=== PATIENT | female | born 1985 | race Two or more races ===

== ENCOUNTER 2022-09-30 14:31 | Outpatient (OUT) | payer BC, SELFPAY ==
[2022-09-30 15:26] LABS: Estimated Average Glucose 97 mg/dL
[2022-09-30 15:38] LABS: Free T3 2.12 pg/mL (2.18-3.98); Thyroid Stimulating Hormone 1.548 uIU/mL (0.358-3.740)
== END 2022-09-30 14:32 ==
LOC: LAB 14:37
PROVIDERS: PCP Nurse Practitioner Family; Visit Provider Nurse Practitioner Family
DX: E06.3 Autoimmune thyroiditis (principal)
CPT/HCPCS: 36415; 83036; 84436; 84443; 84481

== ENCOUNTER 2023-06-26 21:03 | Outpatient (OUT) | payer BC, SELFPAY | END 2023-06-26 21:04 | disposition home or self-care (01) | LOC: SLEEP 21:03 | PROVIDERS: PCP Nurse Practitioner Family; Visit Provider Nurse Practitioner Family | DX: G47.33 Obstructive sleep apnea (adult) (pediatric) (principal) | CPT/HCPCS: 95810 ==

== ENCOUNTER 2023-07-18 20:59 | Outpatient (OUT) | payer BC, SELFPAY ==
--- OUTSIDE RECORDS SUMMARY | 2023-07-18 21:03 | XMS_ITS | CCD ---
Author Organization [facility] Care Team Providers Care Inspector Final Assembly Conveyor Line Name Role Phone Kimberlyn Xie Primary Care Provider Unavail able KIMBERLYN XIE Primary Care Unavailable LEONARDO, DR HECK Admitting Unavailable LEONARDO, DR HECK Attending Unavailable LEONARDO, DR HECK Consulting Unavailable PACO LONGORIA Consulting Unavailable STRAWROCIO FARLEY Consulting Unavailable KIMBERLYN XIE Primary Care Unavailable EMA KEATING Admitting Unavailable EMA KEATING Attending Unavailable SURJIT FREITAS Consulting Unavailable KOLBY MAYEN Consulting Unavailable SERGIO, DR SHERIFF Admitting Unavailable SERGIO, DR SHERIFF Attending Unavailable KIMBERLYN XIE Primary Care Unavailable Kaylah Han Unavailable Sanaz Lockwood Unavailable Unavailable Unavailable Unavailable Allergies Allergy Classification Reported Allergen(s) Allergy Type Date of Onset Reaction(s) Facility (1 source) egg extract Drug Allergy Vomiting [facility] (1 source) Sulfamethoxazole Drug Allergy Unknown Reaction [facility] (1 source) Trimethoprim Drug Allergy Unknown Reaction [facility] (1 source) Fish Containing Products Propensity to adverse reactions Difficulty Breathing [facility] (1 source) Sulfamethoxazole / Trimethoprim Drug Allergy 02-04-20 13 [facility] (2 sources) Sulfamethox[facility] / [facility] Other Medications Current Medications Medication Drug Class(es) Dates Sig (Normalized) Sig (Original) [id number] 200 actuat albuterol 0.09 mg/actuat metered dose inhaler (2 sources) beta2-Adrenergic Agonist Start: 05-10-2022 take 2 puff(s) by inhalation every four hours as needed Albuterol Sulfate HFA 108 (90 Base) MCG/ACT 2 puffs as needed Inhalation every 4 hrs May, Active Start: 05-10-2022 take 2 puff(s) by in halation every four hours as needed Albuterol Sulfate HFA 108 (90 Base) MCG/ACT 2 puffs as needed Inhalation every 4 hrs May, Not-Taking/PRN Control Pill (1 source) Start: 06-29-2019 Control Pill Active June 29, 2019 9:40pm 24 hr buPROPion hydrochloride 150 mg extended release oral tablet (1 source) Aminoketone Start: 06-29-2019 take 75 mg by mouth once daily Bupropion Hcl Active 75 MG Oral Daily June 29, 2019 9:40pm dextromethorphan hydrobromide 15 mg / guaiFENesin 400 mg / pseudoephedrine hydrochloride 60 mg oral tablet (1 source) alpha-Adrenergic Agonist, Uncompetitive A-efhese-E-asparta te Receptor Antagonist, Sigma-1 Agonist Start: 04-27-2023 take 4 tablets by mouth every twenty-four hours as needed Capmist DM 60-15-400 MG as needed Orally every 4-6 hours as needed, max 4 tablets in 24 hours for 5 days Mar, Active [id number] 0.3 ml EPINEPHrine 1 mg/ml auto-injector (1 source) alpha-Adrenergic Agonist, beta-Adrenergic Agonist, Catecholamine Start: 06-29-2019 Epinephrine Active 0.3 MG Intramuscular Once 2 June 29, 2019 10:18pm inject into anterolateral area of thigh; repeat x1 in 5-15 minutes if necessary famotidine 20 mg oral tablet (1 source) Histamine-2 Receptor Antagonist Start: 06-29-2019 take 20 mg by mouth twice daily Famotidine Active 20 MG Oral Twice daily 6 3 June 29, 2019 10:18pm hydrOXYzine hydrochloride 25 mg oral tablet (3 sources) Antihistamine Start: 06-29-2019 take 25 mg by mouth every six hours Hydroxyzine Hcl Active 25 MG Oral Q6H 15 3 June 29, 2019 10:18pm hydrOXYzine HCl Active lamoTRIgine 100 mg oral tablet (3 sources) Mood Stabilizer, Anti-epileptic Agent Start: 06-29-2019 take 100 mg by mouth once daily Lamotrigine Active 100 MG Oral Daily June 29, 2019 9:40pm LaMICtal Active lurasidone (2 sources) Atypical Antipsychotic Latuda Ac tive predniSONE 20 mg oral tablet (2 sources) Start: 3 take 1 tablet by mouth every twelve hours prednisone 20 MG 1 tablet Orally BID for 5 Mar, Active Start: 06-29-2019 take 60 mg by mouth once daily in the morning Prednisone Active 60 MG Oral Every morning 9 3 June 29, 2019 10:18pm administer with food or milk rimegepant 75 mg disintegrat ing oral tablet (1 source) Nurtec 75 MG 1 t ablet on the tongue and allow to dissolve Orally Active Completed/Discontinued Medications Medication Drug Class(es) Dates Sig (Normalized) Sig (Original) methylPREDNISolone 4 mg oral tablet (2 sources) Corticosteroid Start: 3 methylPREDNISolone 4 MG as directed Orally Once a day for 6 days May, Not-Taking/PRN ondansetron 4 mg oral tablet (2 sources) Serotonin-3 Receptor Antagonist Start: 3 take 1 tablet by mouth every eight hours as needed Zofran ODT 4 MG 1 tablet on the tongue and allow to dissolve Orally every 8 hrs as needed for 4 days May, Not-Taking/PRN oseltamivir 75 mg oral capsule (2 sources) Neuraminidase Inhibitor Start: 3 take 1 capsule by mouth every twelve hours Tamiflu 75 MG 1 capsule Orally Twice a day for 5 day(s) May, Not-Taking/PRN Problems Active Problems Problem Classification Problem Date Documented Da te Episodic/Chronic Abdominal pain (4 sources) Unspecified abdominal pain; 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: [UNSPECIFIED ABDOMINAL PAIN] Onset: 04-27-2022 Episodic Allergic reactions (1 source) Food anaphylaxis; 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: [Anaphylactic shock due to food] Episodic Chronic obstructive pulmonary disease and bronchiectasis (1 source) Bronchitis, not specified as acute or chronic Episodic Genitourinary symptoms and ill-defined conditions (1 source) Personal history of urinary (tract) infections; 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: [PERS HX URINARY TRACT INFECTIONS] Onset: 04-29-2022 Episodic Immunizations and screening for infectious disease (1 source) Contact with and (suspected) exposure to other viral communicable diseases Episodic Influenza (1 source) Influenza due to other identified influenza virus with other respiratory manifestations Episodic Mood disorders (1 source) Major depressive disorder, single episode, unspecified; 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: [BRANT DEPRESS D/O SINGLE EPIS UNS] Onset: 04-29-2022 Chronic Nausea and vomiting (1 source) Nausea; 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: [NAUSEA] Onset: 03-09-2022 Episodic Other aftercare (1 source) Other jail (current) drug therapy; 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: [OTH OPERATIONS LEADER CURRENT DRUG THERAPY] Onset: 04-29-2022 Episodic Other gastrointestinal disorders (1 source) Diarrhea, unspecified; 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: [DIARRHEA UNSPECIFIED] Onset: 03-09-2022 Episodic Other nutritional; endocrine; and metabolic disorders (1 source) Obesity, unspecified; 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: [OBESITY UNSPECIFIED] Onset: 04-29-2022 Chronic Other nutritional; endocrine; and metabolic disorders (1 source) Body mass index (BMI) 39.0-39.9, adult; 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: [BODY MASS INDEX BMI 39.0-39.9 ADULT] Onset: 04-29-2022 Chronic Other nutritional; endocrine; and metabolic disorders (1 source) Body mass index (BMI) 38.0-38.9, adult; 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: [BODY MASS INDEX BMI 38.0-38.9 ADULT] Onset: 03-09-2022 Chronic Other upper respiratory infections (2 sources) Acute upper respiratory infection, unspecified; 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: [Acute pharyngitis, unspecified] Episodic Residual codes; unclassified (1 source) Acquired absence of other specified parts of digestive tract; 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: [ACQ ABSENCE OTH PART DIGESTV TRACT] Onset: 04-29-2022 Episodic Substance-related disorders (1 source) Nicotine dependence, cigarettes, uncomplicated; 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: [NICOTINE DEPEND CIGARETTES UNCOMP] Onset: 04-29-2022 Chronic Unclassified (1 source) PERSONAL HISTORY OF COVID-19; 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: [PERSONAL HISTORY OF COVID-19] Onset: 04-29-2022 Past or Other Problems Problem Classification Problem Date Documented Da te Episodic/Chronic Unclassified (1 source) Suspected COVID-19 virus infection Z20.822 Results Test Name Value Interpretation Reference Range Facility COVID + FLU Quick Testingon 04-27-2023 SARS-CoV-2 (COVID-19) RNA J LUIS+probe Ql (Unsp spec) Negative [facility] Other COVID + FLU Quick Testing Negative [facility] Other Quick Strepon 04-27-2023 S. pyogenes Org specific cx Ql (Throat) Negative [facility] Other Quick Strep [facility] Other COVID/FLU/RSV RT-PCRon 05-10 SARS-CoV-2 (COVID-19) RNA J LUIS+probe Ql (Unsp spec) Negative [facility] Other COVID/FLU/RSV RT-PCR Positive [facility] Other COVID/FLU/RSV RT-PCR Negative [facility] Other CBC AUTO DIFFon 04-27-2022 BASO # 0.0 103/ul Normal 0.0-0.1 [facility] Comment on above: Performed By: #### C BC #### [facility] [address] [place] [address] Dr. Dee Humphrey Basophils/100 WBC (Bld) 0.2 % Normal 0.2-2.0 [facility] Comment on above: Performed By: #### C BC #### [facility] [address] [place] [address] Dr. Dee Humphrey EO # 0.1 103/ul Normal 0.0-0.7 [facility] Comment on above: Performed By: #### C BC #### [facility] [address] [place] [address] Dr. Dee Humphrey Eosinophils/100 WBC (Bld) 0.6 % Critically low 0.9-7.0 [facility] Comment on above: Performed By: #### C BC #### [facility] [address] [place] [address] Dr. Dee Humphrey Erythrocyte distribution width (RBC) [Ratio] 14.1 % Normal 11.0-15.0 [facility] Comment on above: Performed By: #### C BC #### [facility] [address] [place] [address] Dr. Dee Humphrey Hematocrit (Bld) [Volume fraction] 37.1 % Normal 36.0-48.0 [facility] Comment on above: Performed By: #### C BC #### [facility] [address] [place] [address] Dr. Dee Humphrey Hemoglobin (Bld) [Mass/Vol] 12.4 g/dL Normal 12.0-16.0 [facility] Comment on above: Performed By: #### C BC #### [facility] [address] [place] [address] Dr. Dee Humphrey IG # 0.06 10e3/ul Critically high 0.00-0.03 [facility] Comment on above: Performed By: #### C BC #### [facility] [address] [place] [address] Dr. Dee Humphrey IG % 0.5 % Normal 0.0-0.5 [facility] Comment on above: Performed By: #### C BC #### [facility] [address] [place] [address] Dr. Dee Humphrey LYMPH # 3.7 103/ul Normal 1.2-3.8 [facility] Comment on above: Performed By: #### C BC #### [facility] [address] [place] [address] Dr. Dee Humphrey Lymphocytes/100 WBC (Bld) 28.7 % Normal 20.5-60.0 [facility] Comment on above: Performed By: #### C BC #### [facility] [address] [place] [address] Dr. Dee Humphrey MANUAL DIFF REQ NO Normal [facility] Comment on above: Performed By: #### C BC #### [facility] [address] [place] [address] Dr. Dee Humphrey MCH (RBC) [Entitic mass] 30.2 pg Normal 26.7-34.0 [facility] Comment on above: Performed By: #### C BC #### [facility] [address] [place] [address] Dr. Dee Humphrey MCHC (RBC) [Mass/Vol] 33.4 g/dL Normal 29.9-35.2 [facility] Comment on above: Performed By: #### C BC #### [facility] [address] [place] [address] Dr. Dee Humphrey MCV (RBC) [Entitic vol] 90.5 fL Normal 81.0-99.0 [facility] Comment on above: Performed By: #### C BC #### [facility] [address] [place] [address] Dr. Dee Humphrey MONO # 0.7 103/ul Normal 0.3-0.8 [facility] Comment on above: Performed By: #### C BC #### [facility] [address] [place] [address] Dr. Dee Humphrey Monocytes/100 WBC (Bld) 5.0 % Normal 1.7-12.0 [facility] Comment on above: Performed By: #### C BC #### [facility] [address] [place] [address] Dr. Dee Humphrey NEUT # 8.5 103/ul Critically high 1.4-6.5 [facility] Comment on above: Performed By: #### C BC #### [facility] [address] [place] [address] Dr. Dee Humphrey Neutrophils/100 WBC (Bld) 65.0 % Normal 43.0-75.0 [facility] Comment on above: Performed By: #### C BC #### [facility] [address] [place] [address] Dr. Dee Humphrey Platelet mean volume (Bld) [Entitic vol] 9.6 fL Normal 9.5-13.5 [facility] Comment on above: Performed By: #### C BC #### [facility] [address] [place] [address] Dr. Dee Humphrey PLT 317 103/ul Normal 150-450 [facility] Comment on above: Performed By: #### C BC #### [facility] [address] [place], [place] [id number] Dr. Dee Humphrey RBC 4.10 106/ul Critically low 4.20-5.40 [facility] Comment on above: Performed By: #### C BC #### [facility] [address] [place] [address] Dr. Dee Humphrey WBC 13.1 103/ul Critically high 4.0-11.0 [facility] Comment on above: Performed By: #### C BC #### [facility] [address] [address] [address] ABD/PELVIS WO CONon 04-27 CT ABD/PELVIS WO CON EXAMINATION:CT ABD/PELVIS WO CON INDICATION:CALCULUS OF KIDNEY COMPARISON:03/07/2022 TECHNIQUE:Multiple thin section transaxial slices were acquired through the abdomen and pelvis without intravenous contrast. Coronal and sagittal reconstructed images were reviewed. Oral contrastWas not administered. FINDINGS: LOWER CHEST: The lower chest is unremarkable. LIVER: The liver is unremarkable. GALLBLADDER AND BILIARY SYSTEM: No obvious ductal dilation. The gallbladder surgically absent. SPLEEN: The spleen is unremarkable. PANCREAS: The pancreas is unremarkable. ADRENAL GLANDS: The adrenal glands are unremarkable. KIDNEYS AND URETERS: There is no hydronephrosis of the kidneys.No obstructing urologic calcifications are present. Ureters are within normal limits. VASCULATURE: Vascularity is unremarkable. PERITONEUM/RETROPERITON EUM: Peritoneum/retroperiton eum is unremarkable. LYMPH NODES: No suspicious lymphadenopathy. GASTROINTESTINAL TRACT: The bowel is normal in caliber.No acute inflammatory changes are associated with the bowel.The appendix is visualized and is not inflamed. BLADDER: The urinary bladder is unremarkable. REPRODUCTIVE SYSTEM: Reproductive system is unremarkable. BODY WALL: There is a tiny fat-containing umbilical hernia. BONES: Osseous structures are unremarkable. IMPRESSION: 1. No acute process in the abdomen or pelvis. No obstructive uropathy is identified. Electronically authenticated by: ROCIO CHAU Date: 2022-04-27 20:24 Normal [facility] ER URINE PROFILEon 2 Bilirubin Ql (U) Negative Normal NEGATIVE [facility] Comment on above: Performed By: #### P REGU, ERUR #### [facility] [address] [address] [address] Dee Humphrey Clarity (U) CLEAR Normal CLEAR [facility] Comment on above: Performed By: #### P REGU, ERUR #### [facility] [address] [place], [place] [address] Dr. Dee Humphrey Color (U) YELLOW Normal YELLOW [facility] Comment on above: Performed By: #### P REGU, ERUR #### [facility] [address] [address] [address] Dee STANFORD A micrscopic examination will be performed if indicated. Normal [facility] Comment on above: Performed By: #### P REGU, ERUR #### [facility] [address] [address] [address] Dee Humphrey Glucose Ql (U) Negative Normal NEGATIVE [facility] Comment on above: Performed By: #### P REGU, ERUR #### [facility] [address] [address] [address] Dee Humphrey Hemoglobin Ql (U) Negative Normal NEGATIVE [facility] Comment on above: Performed By: #### P REGU, ERUR #### [facility] [address] [place] [address] Dr. Dee Humphrey Ketones Ql (U) Negative Normal NEGATIVE [facility] Comment on above: Performed By: #### P REGU, ERUR #### [facility] [address] [address] [address] Dee Humphrey LEUKOCYTES Negative Normal NEGATIVE [facility] Comment on above: Performed By: #### P REGU, ERUR #### [facility] [address] [address] [address] Dee Humphrey Nitrite Ql (U) Negative Normal NEGATIVE [facility] Comment on above: Performed By: #### P REGU, ERUR #### [facility] [address] [address] [address] Dee Humphrey pH (U) 5.5 [pH] Normal 5-9 [facility] Comment on above: Performed By: #### P REGU, ERUR #### [facility] [address] [address] [address] Dee Humphrey SPEC GRAVITY >=1.030 Abnormal 1.005-<=1.025 [facility] Comment on above: Performed By: #### P REGU, ERUR #### [facility] [address] [address] [address] Dee Humphrey UA PROTEIN Negative Normal NEGATIVE/ TRACE [facility] Comment on above: Performed By: #### P REGU, ERUR #### [facility] [address] [place] [address] Dr. Dee Humphrey UR MICRO IND NOT INDICATED Normal [facility] Comment on above: Performed By: #### P REGU, ERUR #### [facility] [address] [place] [address] Dr. Dee Humphrey Urobilinogen Qn (U) 0.2 {Blanca'U}/dL Normal 0.2 - 1.0 [facility] Comment on above: Performed By: #### P REGU, ERUR #### [facility] [address] [place] [address] Dr. Dee Humphrey LIPASEon 04-27-2022 Lipase [Catalytic activity/Vol] 94.0 U/L Normal 73.0-393.0 [facility] Comment on above: Performed By: #### L IPA, CMP #### [facility] [address] [place] [address] Dr. Dee Humphrey URon 04-27-2022 , QUAL Negative Normal NEGATIVE [facility] Comment on above: Performed By: #### P REGU, ERUR #### [facility] [address] [place] [address] Dr. Dee Humphrey PROF 14(COMP METB)on 022 Albumin [Mass/Vol] 3.9 g/dL Normal 3.4-5.0 [facility] Comment on above: Performed By: #### L IPA, CMP #### [facility] [address] [place] [address] Dr. Dee Humphrey Albumin/Globulin [Mass ratio] 1.0 {ratio} Normal [facility] Comment on above: Performed By: #### L IPA, CMP #### [facility] [address] [place] [address] Dr. Dee Humphrey ALP [Catalytic activity/Vol] 87 U/L Normal 46-116 [facility] Comment on above: Performed By: #### L IPA, CMP #### [facility] [address] [place] [address] Dr. Dee Humphrey ALT [Catalytic activity/Vol] 31 U/L Normal 14-59 [facility] Comment on above: Performed By: #### L IPA, CMP #### [facility] [address] [address] [address] Dee Humphrey Anion gap [Moles/Vol] 10.8 mmol/L Normal [facility] Comment on above: Performed By: #### L IPA, CMP #### [facility] [address] [address] [address] Dee Humphrey AST [Catalytic activity/Vol] 17 U/L Normal 15-37 [facility] Comment on above: Performed By: #### L IPA, CMP #### [facility] [address] [place] [address] Dr. Dee Humphrey Bilirubin [Mass/Vol] 0.1 mg/dL Critically low 0.2-1.0 [facility] Comment on above: Performed By: #### L IPA, CMP #### [facility] [address] [place] [address] Dr. Dee Humphrey Calcium [Mass/Vol] 8.9 mg/dL Normal 8.5-10.1 [facility] Comment on above: Performed By: #### L IPA, CMP #### [facility] [address] [place] [address] Dr. Dee Humphrey Chloride [Moles/Vol] 103 mmol/L Normal 98-107 [facility] Comment on above: Performed By: #### L IPA, CMP #### [facility] [address] [address] [address] Dee Humphrey CO2 [Moles/Vol] 26.9 mmol/L Normal 21.0-32.0 [facility] Comment on above: Performed By: #### L IPA, CMP #### [facility] [address] [place] [address] Dr. Dee Humphrey Creatinine [Mass/Vol] 0.80 mg/dL Normal 0.55-1.02 [facility] Comment on above: Performed By: #### L IPA, CMP #### [facility] [address] [place] [address] Dr. Dee Humphrey EGFR-AF AZERBAIJANI >60 Normal >=60 [facility] Comment on above: Performed By: #### L IPA, CMP #### [facility] [address] [place] [address] Dr. Dee Humphrey EGFR-NON AF AZERBAIJANI >60 Normal >=60 [facility] Comment on above: Performed By: #### L IPA, CMP #### [facility] [address] [address] [address] Dee Humphrey Globulin (S) [Mass/Vol] 3.9 g/dL Normal [facility] Comment on above: Performed By: #### L IPA, CMP #### [facility] [address] [place] [address] Dr. Dee Humphrey Glucose [Mass/Vol] 96 mg/dL Normal 74-106 [facility] Comment on above: Performed By: #### L IPA, CMP #### [facility] [address] [place] [address] Dr. Dee Humphrey Potassium [Moles/Vol] 3.7 mmol/L Normal 3.5-5.1 [facility] Comment on above: Performed By: #### L IPA, CMP #### [facility] [address] [place] [address] Dr. Dee Humphrey Protein [Mass/Vol] 7.8 g/dL Normal 6.4-8.2 [facility] Comment on above: Performed By: #### L IPA, CMP #### [facility] [address] [place] [address] Dr. Dee Humphrey Sodium [Moles/Vol] 137 mmol/L Normal 136-145 [facility] Comment on above: Performed By: #### L IPA, CMP #### [facility] [address] [place] [address] Dr. Dee Humphrey Urea nitrogen [Mass/Vol] 13.0 mg/dL Normal 7.0-18.0 [facility] Comment on above: Performed By: #### L IPA, CMP #### [facility] [address] [place] [address] Dr. Dee Humphrey Urea nitrogen/Creatini ne [Mass ratio] 16.2 mg/mg Normal [facility] Comment on above: Performed By: #### L IPA, CMP #### [facility] [address] [place] [address] Dr. Dee Humphrey CBC AUTO DIFFon 03-07-2022 BASO # 0.0 103/ul Normal 0.0-0.1 [facility] Comment on above: Performed By: #### C BC #### [facility] [address] [place] [address] Dr. Dee Humphrey Basophils/100 WBC (Bld) 0.3 % Normal 0.2-2.0 [facility] Comment on above: Performed By: #### C BC #### [facility] [address] [place] [address] Dr. Dee Humphrey EO # 0.1 103/ul Normal 0.0-0.7 [facility] Comment on above: Performed By: #### C BC #### [facility] [address] [place] [address] Dr. Dee Humphrey Eosinophils/100 WBC (Bld) 0.7 % Critically low 0.9-7.0 [facility] Comment on above: Performed By: #### C BC #### [facility] [address] [place] [address] Dr. Dee Humphrey Erythrocyte distribution width (RBC) [Ratio] 13.0 % Normal 11.0-15.0 [facility] [facility] Comment on above: Performed By: #### C BC #### [facility] [address] [place] [address] Dr. Dee Humphrey Hematocrit (Bld) [Volume fraction] 39.2 % Normal 36.0-48.0 [facility] Comment on above: Performed By: #### C BC #### [facility] [address] [place] [address] Dr. Dee Humphrey Hemoglobin (Bld) [Mass/Vol] 13.2 g/dL Normal 12.0-16.0 [facility] Comment on above: Performed By: #### C BC #### [facility] [address] [place] [address] Dr. Dee Humphrey IG # 0.05 10e3/ul Critically high 0.00-0.03 [facility] Comment on above: Performed By: #### C BC #### [facility] [address] [place] [address] Dr. Dee Humphrey IG % 0.5 % Normal 0.0-0.5 [facility] Comment on above: Performed By: #### C BC #### [facility] [address] [place] [address] Dr. Dee Humphrey LYMPH # 4.2 103/ul Critically high 1.2-3.8 [facility] Comment on above: Performed By: #### C BC #### [facility] [address] [place] [address] Dr. Dee Humphrey Lymphocytes/100 WBC (Bld) 43.1 % Normal 20.5-60.0 [facility] Comment on above: Performed By: #### C BC #### [facility] [address] [place] [address] Dr. Dee Humphrey MANUAL DIFF REQ NO Normal [facility] Comment on above: Performed By: #### C BC #### [facility] [address] [place] [address] Dr. Dee Humphrey MCH (RBC) [Entitic mass] 30.5 pg Normal 26.7-34.0 [facility] Comment on above: Performed By: #### C BC #### [facility] [address] [place] [address] Dr. Dee Humphrey MCHC (RBC) [Mass/Vol] 33.7 g/dL Normal 29.9-35.2 [facility] Comment on above: Performed By: #### C BC #### [facility] [address] [place] [address] Dr. Dee Humphrey MCV (RBC) [Entitic vol] 90.5 fL Normal 81.0-99.0 [facility] Comment on above: Performed By: #### C BC #### [facility] [address] [place] [address] Dr. Dee Humphrey MONO # 0.4 103/ul Normal 0.3-0.8 [facility] Comment on above: Performed By: #### C BC #### [facility] [address] [place] [address] Dr. Dee Humphrey Monocytes/100 WBC (Bld) 4.4 % Normal 1.7-12.0 [facility] Comment on above: Performed By: #### C BC #### [facility] [address] [place] [address] Dr. Dee Humphrey NEUT # 4.9 103/ul Normal 1.4-6.5 [facility] Comment on above: Performed By: #### C BC #### [facility] [address] [place] [address] Dr. Dee Humphrey Neutrophils/100 WBC (Bld) 51.0 % Normal 43.0-75.0 [facility] Comment on above: Performed By: #### C BC #### [facility] [address] [place] [address] Dr. Dee Humphrey Platelet mean volume (Bld) [Entitic vol] 9.6 fL Normal 9.5-13.5 [facility] Comment on above: Performed By: #### C BC #### [facility] [address] [place] [address] Dr. Dee Humphrey PLT 364 103/ul Normal 150-450 [facility] Comment on above: Performed By: #### C BC #### [facility] [address] [place] [address] Dr. Dee Humphrey RBC 4.33 106/ul Normal 4.20-5.40 [facility] Comment on above: Performed By: #### C BC #### [facility] [address] [place] [address] Dr. Dee Humphrey WBC 9.7 103/ul Normal 4.0-11.0 [facility] Comment on above: Performed By: #### C BC #### [facility] [address] [place] [address] Dr. Dee Humphrey LACTATE/LACTIC ACIDon 2021 Lactate [Moles/Vol] 1.1 mmol/L Normal 0.4-1.9 [facility] Comment on above: Performed By: #### P REGU, ERUR #### [facility] [address] [place] [address] Dr. Dee Humphrey LIPASEon 03-07-2022 Lipase [Catalytic activity/Vol] 79.0 U/L Normal 73.0-393.0 [facility] Comment on above: Performed By: #### C MP, LIPA #### [facility] [address] [place] [address] Dr. Dee Humphrey PROF 14(COMP METB)on 022 Albumin [Mass/Vol] 3.8 g/dL Normal 3.4-5.0 [facility] Comment on above: Performed By: #### C MP, LIPA #### [facility] [address] [place] [address] Dr. Dee Humphrey Albumin/Globulin [Mass ratio] 0.9 {ratio} Normal [facility] Comment on above: Performed By: #### C MP, LIPA #### [facility] [address] [place] [address] Dr. Dee Humphrey ALP [Catalytic activity/Vol] 80 U/L Normal 46-116 [facility] Comment on above: Performed By: #### C MP, LIPA #### [facility] [address] [place] [address] Dr. Dee Humphrey ALT [Catalytic activity/Vol] 27 U/L Normal 14-59 [facility] Comment on above: Performed By: #### C MP, LIPA #### [facility] [address] [place] [address] Dr. Dee Humphrey Anion gap [Moles/Vol] 9.5 mmol/L Normal [facility] Comment on above: Performed By: #### C MP, LIPA #### [facility] [address] [place] [address] Dr. Dee Humphrey AST [Catalytic activity/Vol] 13 U/L Critically low 15-37 [facility] Comment on above: Performed By: #### C MP, LIPA #### [facility] [address] [address] [address] Dee Humphrey Bilirubin [Mass/Vol] 0.1 mg/dL Critically low 0.2-1.0 [facility] Comment on above: Performed By: #### C MP, LIPA #### [facility] [address] [place] [address] Dr. Dee Humphrey Calcium [Mass/Vol] 9.0 mg/dL Normal 8.5-10.1 [facility] Comment on above: Performed By: #### C MP, LIPA #### [facility] [address] [place] [address] Dr. Dee Humphrey Chloride [Moles/Vol] 103 mmol/L Normal 98-107 [facility] Comment on above: Performed By: #### C MP, LIPA #### [facility] [address] [place] [address] Dr. Dee Humphrey CO2 [Moles/Vol] 27.1 mmol/L Normal 21.0-32.0 [facility] Comment on above: Performed By: #### C MP, LIPA #### [facility] [address] [place] [address] Dr. Dee Humphrey Creatinine [Mass/Vol] 0.86 mg/dL Normal 0.55-1.02 [facility] Comment on above: Performed By: #### C MP, LIPA #### [facility] [address] [place] [address] Dr. Dee Humphrey EGFR-AF AZERBAIJANI >60 Normal >=60 [facility] Comment on above: Performed By: #### C MP, LIPA #### [facility] [address] [place] [address] Dr. Dee Humphrey EGFR-NON AF AZERBAIJANI >60 Normal >=60 [facility] Comment on above: Performed By: #### C MP, LIPA #### [facility] [address] [place] [address] Dr. Dee Humphrey Globulin (S) [Mass/Vol] 4.1 g/dL Normal [facility] Comment on above: Performed By: #### C MP, LIPA #### [facility] [address] [place] [address] Dr. Dee Humphrey Glucose [Mass/Vol] 99 mg/dL Normal 74-106 [facility] Comment on above: Performed By: #### C MP, LIPA #### [facility] [address] [place] [address] Dr. Dee Humphrey Potassium [Moles/Vol] 3.6 mmol/L Normal 3.5-5.1 [facility] Comment on above: Performed By: #### C MP, LIPA #### [facility] [address] [place] [address] Dr. Dee Humphrey Protein [Mass/Vol] 7.9 g/dL Normal 6.4-8.2 [facility] Comment on above: Performed By: #### C MP, LIPA #### [facility] [address] [place] [address] Dr. Dee Humphrey Sodium [Moles/Vol] 136 mmol/L Normal 136-145 [facility] Comment on above: Performed By: #### C MP, LIPA #### [facility] [address] [place] [address] Dr. Dee Humphrey Urea nitrogen [Mass/Vol] 12.0 mg/dL Normal 7.0-18.0 [facility] Comment on above: Performed By: #### C MP, LIPA #### [facility] [address] [place] [address] Dr. Dee Humphrey Urea nitrogen/Creatini ne [Mass ratio] 14.0 mg/mg Normal [facility] Comment on above: Performed By: #### C MP, LIPA #### [facility] [address] [place] [address] Dr. Dee Humphrey Consent for COVID Vaccineon 08-09-2020 SARS-CoV-2 (COVID-19) RNA J LUIS+probe Ql (Unsp spec) [id number] D:127 Normal [facility] Consent for Treatmenton 07-30 Consent for Treatment [id number] D:127 Normal [facility] Coding Summary.on 08-07-2020 Coding Summary. CODING DATE: [facility] STATUS: PAYOR: Luzma APC DESCRIPTION [employer] - Level 1B ($11-$20) ADMIT DX: REASON FOR VISIT DX: Z23 Encounter for immunization FINAL DX: PRINCIPAL: Z23 Encounter for immunization SECONDARY: PYMT PROC APC STAT DESCRIPTION DOCTOR NAME DATE NOTE: The code number assigned matches the documented diagnosis and / or procedure in the patient's chart. However, the narrative phrase printed from the coding software may appear abbreviated, or result in slightly different terminology. Coded By: Yana Paredes Date Saved: 08/07/2020 02:46 pm [facility] Ambulatory Clinical Summaryo n 03-25-2020 Ambulatory Clinical Summary {[id number] [facility] Patient Educationon 03-19-20 20 Patient Education lurasidone (loo JOAO i done) Latuda What is the most important information I should know about lurasidone? Lurasidone is not approved for use in older adults with dementia-related psychosis. Some people have thoughts about suicide while taking lurasidone. Stay alert to changes in your mood or symptoms. Report any new or worsening symptoms to your doctor. Tell your doctor about all your current medicines and any you start or stop using. Many drugs can interact, and some drugs should not be used together. What is lurasidone? Lurasidone is an antipsychotic medicine that is used to treat schizophrenia in adults and teenagers who are at least 13 years old. Lurasidone is also used to treat episodes of depression related to bipolar disorder (manic depression) in adults and children who are at least 10 years old. Lurasidone may also be used for purposes not listed in this medication guide. What should I discuss with my healthcare provider before taking lurasidone? You should not use lurasidone if you are allergic to it. Many drugs can interact and cause dangerous effects. Some drugs should not be used together with lurasidone. Your doctor may change your treatment plan if you also use: ?? antifungal medicine such as ketoconazole or voriconazole; ? an antibiotic such as clarithromycin or rifampin; ? an antiviral such as ritonavir; ? Wikieup's wort; or ? seizure medicine such as carbamazepine or phenytoin. Lurasidone may increase the risk of in older adults with dementia-related psychosis and is not approved for this use. Tell your doctor if you have ever had: ?? heart disease or a stroke; ? high or low blood pressure; ? high cholesterol or triglycerides (a type of fat in the blood); ? diabetes or high blood sugar (in you or your family); ? a seizure; ? liver or kidney disease; ? low white blood cell (WBC) counts; ? abnormal hormone function tests (thyroid, pituitary gland); ? breast cancer; or ? suicidal thoughts or actions. Some people have thoughts about suicide while taking lurasidone. Your doctor will need to check your progress at regular visits. Your family or other caregivers should also be alert to changes in your mood or symptoms. Taking antipsychotic medicine in the last 3 months of may cause breathing problems, feeding problems, or withdrawal symptoms in the . If you get , tell your doctor right away. Do not stop taking lurasidone without your doctor's advice. If you are , your name may be listed on a registry to track the effects of lurasidone on the baby. It may not be safe to breastfeed a baby while you are using this medicine. Ask your doctor about any risks. Lurasidone is not approved for schizophrenia in anyone younger than 13 years old. Lurasidone is not approved for depression in anyone younger than 10 years old. How should I take lurasidone? Follow all directions on your prescription label and read all medication guides or instruction sheets. Use the medicine exactly as directed. Lurasidone should be taken with food (at least 350 calories). You may need frequent blood tests. It may take several weeks before your symptoms improve. Keep using the medication as directed. Call your doctor if your symptoms do not improve, or if they get worse while using lurasidone. You should not stop using lurasidone suddenly. Stopping suddenly may cause other problems. It is easier to become dangerously overheated and dehydrated while you are taking lurasidone. Drink plenty of fluids, especially in hot weather and during exercise. You may also be more sensitive to temperature extremes (hot or cold). Store at room temperature away from moisture and heat. What happens if I miss a dose? Take the medicine as soon as you can, but skip the missed dose if it is almost time for your next dose. Do not take two doses at one time. Get your prescription refilled before you run out of medicine completely. What happens if I overdose? Seek emergency medical attention or call the Poison Help line at . What should I avoid while taking lurasidone? Avoid drinking alcohol. Dangerous side effects could occur. Avoid driving or operating machinery until you know how this medicine will affect you. Avoid getting up too fast from a sitting or lying position, or you may feel dizzy. Dizziness or drowsiness can cause falls, accidents, or severe injuries. Grapefruit and grapefruit juice may interact with lurasidone and lead to unwanted side effects. Avoid the use of grapefruit products while taking lurasidone. What are the possible side effects of lurasidone? Get emergency medical help if you have signs of an allergic reaction: hives; difficulty breathing; swelling of your face, lips, tongue, or throat. Report any new or worsening symptoms to your doctor, such as: mood or behavior changes, anxiety, panic attacks, trouble sleeping, or if you feel impulsive, irritable, agitate (more content not included)... Normal [facility] Video Visit - Telehealtho n 02-23-2020 Video Visit - Telehealth Start Time 3:00pm Stop Time 4:00pm Chief Complaint Bipolar 1 disorder BOB (generalized anxiety disorder Mood: Good Affect: Full, Congruent Thought Content: No hallucinations of any modality Cognitive Functioning: Alert and Oriented x4, Memory Intact Suicidality and Homicidality: Denied any suicidal or homicidal ideation, plan, intent Diagnosis/Assessment/Tr eatment Plan 1. Bipolar 1 disorder (F31.32: Bipolar disorder, current episode depressed, moderate) 2. BOB (generalized anxiety disorder) (F41.1: Generalized anxiety disorder) Goals: 1. Alleviate depressive symptoms and return to previous level of effective functioning. 2. Normalize energy level and return to usual activities, good judgement, stable mood, realistic expectations, and goal directed behavior. 3. Achieve controlled behavior, moderate mood, deliberative speech and thought processes, and a stable daily activity pattern. Patient will: 1. Describe situations, thoughts, feelings, and actions associated with her symptoms of depression, and the impact on her functioning. 2. Identify, challenge, and replace thoughts and beliefs that support depression. 3. Learn and implement at least two behavioral strategies to overcome depression. Therapist will: 1. Provide empathetic listening and feedback to create a safe environment for patient and to build rapport and trust towards a positive outcome. 2. Assess the patient?s history of suicidality and current suicide risk. 3. Conduct CBT to help the patient understand the connection between thoughts, depressive feelings, and actions/behaviors. 4. Help patient identify what thoughts or situations trigger her depressed mood. 5. Engage patient in using behavior techniques and developing skills that help alleviate depression, and encourage her to practice and use in her daily life. [ [1] Psychotherapy Summary Met with patient 1:1 via telehealth for today's session. Patient was in a private room at home. Inquired about significant events since last session. Facilitated discussion about the frequency and intensity of symptoms experienced. Processed with patient her new job. Acknowledged patient?s thoughts and feelings and how they have had an impact on her mood. Used CBT to help patient understand the connection between her thoughts, feelings and actions/behaviors. Helped patient identify and practice coping skills that help patient alleviate mood instability and encourage to practice and use in her daily life. Will continue with this therapeutic focus at next session. Therapist Intervention CBT Grief counseling Patient Response Patient was in good spirits during today's session. She believes it will be difficult to go through her last day at [employer], but is looking forward for a new challenge. Appears she is adapting better to Summer leaving their home. Changes In Medical Condition None reported Changes In Functional Impairment None reported Changes In Symptoms Explained None reported Other Information This visit was conducted via two-way, real-time interactive video communications from my office using [employer] due to the restrictions of the COVID-19 pandemic. No physical exam was conducted other than those areas of the body visible to telecommunications with the patient located at [address] [place], [place] [id number], with no one else in attendance. If it is determined that the patient should be evaluated in the clinic, the patient will be directed to the appropriate clinic or venue. The patient or their guardian verbally consented to this visit. Video time was 60 minutes with the patient face to face greater than 50% in addition to counseling and coordination of care. Follow-up in 2 weeks Problem List/Past Medical History Ongoing Bipolar 1 disorder Fatigue BOB (generalized anxiety disorder) Hidradenitis suppurativa Major depression, recurrent Miscarriage Historical Tobacco use during Urinary tract infection in Procedure/Surgical History section (08/10/2009), section (02/26/2007), Appendectomy, Cholecystectomy. Medications Abilify 5 mg Tab, See Instructions, 5 refills alprazolam 0.5 mg Tab, 0.5 mg= 1 tab(s), Oral, TID, PRN, 1 refills cyclobenzaprine 10 mg Tab, 10 mg= 1 tab(s), Oral, TID, PRN, 1 refills hydrOXYzine hydrochloride 50 mg oral tablet, See Instructions, PRN, 5 refills lamotrigine 150 mg Tab, 150 mg= 1 tab(s), Oral, Daily, 5 refills Tri-Sprintec 35 mcg Tab, 1 tab(s), Oral, Daily, 4 refills Allergies Bactrim Social History Alcohol - Denies Alcohol Use, 10/05/2011 Employment/School Employed, 03/18/2019 Home/Environment Lives with Children, Spouse. Living situation: Home/Independent., 09/12/2018 Substance Abuse - Denies Substance Abuse, 10/05/2011 Tobacco Former smoker, quit more than 30 days ago Tobacco Use:. Never Smokeless Tobacco Use:. Cigarettes, 1.0 per day. 7 year(s). Total pack years: 7. Stopped age (more content not included)... Normal [facility] Comment on above: Result Comment: Elec tronically Signed By: Deepa [facility], Maia Montero.mati\Date and Time Signed: 02/22/20 23:17 EDT Video Visit - Telehealtho n 02-11-2020 Video Visit - Telehealth Start Time 3:00pm Stop Time 4:00pm Chief Complaint Bipolar 1 disorder Mental Status Exam Mood: Better Affect: Full, Congruent Thought Content: No hallucinations of any modality Cognitive Functioning: Alert and Oriented x4, Memory Intact Suicidality and Homicidality: Denied any suicidal or homicidal ideation, plan, intent Diagnosis/Assessment/Tr eatment Plan 1. Bipolar 1 disorder (F31.32: Bipolar disorder, current episode depressed, moderate) Goals: 1. Alleviate depressive symptoms and return to previous level of effective functioning. 2. Normalize energy level and return to usual activities, good judgement, stable mood, realistic expectations, and goal directed behavior. 3. Achieve controlled behavior, moderate mood, deliberative speech and thought processes, and a stable daily activity pattern. Patient will: 1. Describe situations, thoughts, feelings, and actions associated with her symptoms of depression, and the impact on her functioning. 2. Identify, challenge, and replace thoughts and beliefs that support depression. 3. Learn and implement at least two behavioral strategies to overcome depression. Therapist will: 1. Provide empathetic listening and feedback to create a safe environment for patient and to build rapport and trust towards a positive outcome. 2. Assess the patient?s history of suicidality and current suicide risk. 3. Conduct CBT to help the patient understand the connection between thoughts, depressive feelings, and actions/behaviors. 4. Help patient identify what thoughts or situations trigger her depressed mood. 5. Engage patient in using behavior techniques and developing skills that help alleviate depression, and encourage her to practice and use in her daily life. [1] Psychotherapy Summary Met with patient 1:1 via telehealth for today's session. Patient was in a private room at home. Inquired about significant events since last session. Facilitated discussion about the frequency and intensity of grief and sadness experienced. Processed with patient the reasons she decided to take the new job, and her thought process in taking it. Acknowledged patient?s thoughts and feelings and how they have had an impact on her mood. Helped patient identify and practice coping skills that help patient alleviate anxiety and encourage to practice and use in her daily life. Will continue with this therapeutic focus at next session. Therapist Intervention Anxiety-reducing techniques Positive thinking Decision-making Patient Response Patient was more upbeat during today's session than she has been. She appears to having a more positive outlook on her life and is progressing towards treatment goals. Changes In Medical Condition None reported Changes In Functional Impairment None reported Changes In Symptoms Explained None reported Other Information This visit was conducted via two-way, real-time interactive video communications from my office using [employer] due to the restrictions of the COVID-19 pandemic. No physical exam was conducted other than those areas of the body visible to telecommunications with the patient located at [address] [place], [place] [id number], with no one else in attendance. If it is determined that the patient should be evaluated in the clinic, the patient will be directed to the appropriate clinic or venue. The patient or their guardian verbally consented to this visit. Video time was 60 minutes with the patient face to face greater than 50% in addition to counseling and coordination of care. Follow-up in 1 week Problem List/Past Medical History Ongoing Bipolar 1 disorder Fatigue BOB (generalized anxiety disorder) Hidradenitis suppurativa Major depression, recurrent Miscarriage Historical Tobacco use during Urinary tract infection in Procedure/Surgical History section (08/10/2009), section (02/26/2007), Appendectomy, Cholecystectomy. Medications Abilify 5 mg Tab, See Instructions, 5 refills alprazolam 0.5 mg Tab, 0.5 mg= 1 tab(s), Oral, TID, PRN, 1 refills cyclobenzaprine 10 mg Tab, 10 mg= 1 tab(s), Oral, TID, PRN, 1 refills hydrOXYzine hydrochloride 50 mg oral tablet, See Instructions, PRN, 5 refills lamotrigine 150 mg Tab, 150 mg= 1 tab(s), Oral, Daily, 5 refills Tri-Sprintec 35 mcg Tab, 1 tab(s), Oral, Daily, 4 refills Allergies Bactrim Social History Alcohol - Denies Alcohol Use, 10/05/2011 Employment/School Employed, 03/18/2019 Home/Environment Lives with Children, Spouse. Living situation: Home/Independent., 09/12/2018 Substance Abuse - Denies Substance Abuse, 10/05/2011 Tobacco Former smoker, quit more than 30 days ago Tobacco Use:. Never Smokeless Tobacco Use:. Cigarettes, 1.0 per day. 7 year(s). Total pack years: 7. Stopped age 25 Years. Previous treatment: Counseling. Household tobacco concerns: No. Yes, 01/24/2020 Family History Alcoholism: Father and Sister. Depres (more content not included)... Normal [facility] Comment on above: Result Comment: Elec tronically Signed By: Deepa [facility]ITALMaia Valle.mati\Date and Time Signed: 02/11/20 14:46 EDT Video Visit - Telehealth Start Time 3:00pm Stop Time 4:00pm Chief Complaint Bipolar 1 disorder Mental Status Exam Mood: Sad Affect: Flat, Tearful, Congruent Thought Content: No hallucinations of any modality Cognitive Functioning: Alert and Oriented x4, Memory Intact Suicidality and Homicidality: Denied any suicidal or homicidal ideation, plan, intent Diagnosis/Assessment/Tr eatment Plan 1. Bipolar 1 disorder (F31.32: Bipolar disorder, current episode depressed, moderate) Goals: 1. Alleviate depressive symptoms and return to previous level of effective functioning. 2. Normalize energy level and return to usual activities, good judgement, stable mood, realistic expectations, and goal directed behavior. 3. Achieve controlled behavior, moderate mood, deliberative speech and thought processes, and a stable daily activity pattern. Patient will: 1. Describe situations, thoughts, feelings, and actions associated with her symptoms of depression, and the impact on her functioning. 2. Identify, challenge, and replace thoughts and beliefs that support depression. 3. Learn and implement at least two behavioral strategies to overcome depression. Therapist will: 1. Provide empathetic listening and feedback to create a safe environment for patient and to build rapport and trust towards a positive outcome. 2. Assess the patient?s history of suicidality and current suicide risk. 3. Conduct CBT to help the patient understand the connection between thoughts, depressive feelings, and actions/behaviors. 4. Help patient identify what thoughts or situations trigger her depressed mood. 5. Engage patient in using behavior techniques and developing skills that help alleviate depression, and encourage her to practice and use in her daily life. Psychotherapy Summary Therapist met with patient and encouraged her to provide an update since last seen. Utilize active listening and reflective techniques to engage patient in conversation. Asked open-ended questions for additional information. Praised patient for spending time with family and working towards their new normal as a family without her daughter and niece. Encouraged patient to think about why she is considering a new job. Provided patient with suggestions and feedback regarding the pros and cons of starting a new job. Had patient discuss what has been beneficial for her and what she continues to struggle with each day. Led conversation regarding her mood and what patient feels that has contributed towards it. Assisted patient in looking at what healthy coping skills and resources that are available to her that could help alleviate some of the stressors. Validated patient's concerns regarding about her niece that moved out. Facilitated discussion regarding what she is in control over and gave feedback regarding what techniques she can attempt to reduce impulses and thought stopping. Therapist Intervention CBT Decision-making Patient Response Patient was very sad today during session. She continues to struggle with her grief, but has been able to do family activities, even though it is difficult that her daughter and niece are not a part of the activity. Patient has decided that she will be taking the new job as [employer] . Changes In Medical Condition None reported Changes In Functional Impairment None reported Changes In Symptoms Explained None reported Other Information This visit was conducted via two-way, real-time interactive video communications from my office using [employer] due to the restrictions of the COVID-19 pandemic. No physical exam was conducted other than those areas of the body visible to telecommunications with the patient located at [address] [place] [address] [phone], with no one else in attendance. If it is determined that the patient should be evaluated in the clinic, the patient will be directed to the appropriate clinic or venue. The patient or their guardian verbally consented to this visit. Video time was 60 minutes with the patient face to face greater than 50% in addition to counseling and coordination of care. Follow-up in 1 week. Problem List/Past Medical History Ongoing Bipolar 1 disorder Fatigue BOB (generalized anxiety disorder) Hidradenitis suppurativa Major depression, recurrent Miscarriage Historical Tobacco use during Urinary tract infection in Procedure/Surgical History section (08/10/2009), section (02/26/2007), Appendectomy, Cholecystectomy. Medications Abilify 5 mg Tab, See Instructions, 5 refills alprazolam 0.5 mg Tab, 0.5 mg= 1 tab(s), Oral, TID, PRN, 1 refills cyclobenzaprine 10 mg Tab, 10 mg= 1 tab(s), Oral, TID, PRN, 1 refills hydrOXYzine hydrochloride 50 mg oral tablet, See Instructions, PRN, 5 refills lamotrigine 150 mg Tab, 150 mg= 1 tab(s), Oral, Daily, 5 refills Tri-Sprintec 35 mcg Tab, 1 tab(s), Oral, Daily, 4 refills Allergies Bactrim Social History Alcohol - Denies (more content not included)... Normal [facility] Comment on above: Result Comment: Elec tronically Signed By: Deepa [facility], Maia Ashley\.mati\Date and Time Signed: 02/11/20 14:37 EDT Video Visit - Telehealtho n 01-29-2020 Video Visit - Telehealth Start Time 3:00pm Stop Time 4:00pm Chief Complaint Bipolar 1 disorder Mental Status Exam Mood: Labile Affect: Full, Congruent Thought Content: No hallucinations of any modality Cognitive Functioning: Alert and Oriented x4, Memory Intact Suicidality and Homicidality: Denied any suicidal or homicidal ideation, plan, intent Diagnosis/Assessment/Tr eatment Plan 1. Bipolar 1 disorder (F31.32: Bipolar disorder, current episode depressed, moderate) Goals: 1. Alleviate depressive symptoms and return to previous level of effective functioning. 2. Normalize energy level and return to usual activities, good judgement, stable mood, realistic expectations, and goal directed behavior. 3. Achieve controlled behavior, moderate mood, deliberative speech and thought processes, and a stable daily activity pattern. Patient will: 1. Describe situations, thoughts, feelings, and actions associated with her symptoms of depression, and the impact on her functioning. 2. Identify, challenge, and replace thoughts and beliefs that support depression. 3. Learn and implement at least two behavioral strategies to overcome depression. Therapist will: 1. Provide empathetic listening and feedback to create a safe environment for patient and to build rapport and trust towards a positive outcome. 2. Assess the patient?s history of suicidality and current suicide risk. 3. Conduct CBT to help the patient understand the connection between thoughts, depressive feelings, and actions/behaviors. 4. Help patient identify what thoughts or situations trigger her depressed mood. 5. Engage patient in using behavior techniques and developing skills that help alleviate depression, and encourage her to practice and use in her daily life. [1] Psychotherapy Summary Therapist met with patient and encouraged her to provide an update since last seen. Utilize active listening and reflective techniques to engage patient in conversation. Asked open-ended questions for additional information. Praised patient for finding ways to keep busy and distract her thoughts away from her sadness. Provided patient with suggestions and feedback about niece. Had patient discuss what has been beneficial and what she continues to struggle with each day. Led conversation regarding her mood and what patient feels that has contributed towards it. Assisted patient in looking at what healthy coping skills and resources that are available to her that could help alleviate some of the stressors. Validated patient's concerns regarding her niece making good decisions while living away from their home. Facilitated discussion regarding what she is in control over and gave feedback regarding what techniques she can attempt to reduce intrusive thoughts. Therapist Intervention Grief therapy Coping Skills Person-centered approach Patient response Patient was pleasant and engaged during today?s session. She is progressing towards her treatment goal of better managing anxiety and emotions. Changes In Medical Condition None reported Changes In Functional Impairment None reported Changes In Symptoms Explained None reported Other Information This visit was conducted via two-way, real-time interactive video communications from my office using [employer] due to the restrictions of the COVID-19 pandemic. No physical exam was conducted other than those areas of the body visible to telecommunications with the patient located at [address] [place] [address] [phone], with no one else in attendance. If it is determined that the patient should be evaluated in the clinic, the patient will be directed to the appropriate clinic or venue. The patient or their guardian verbally consented to this visit. Video time was 60 minutes with the patient face to face greater than 50% in addition to counseling and coordination of care. Follow-up in 1 week Problem List/Past Medical History Ongoing Bipolar 1 disorder Fatigue BOB (generalized anxiety disorder) Hidradenitis suppurativa Major depression, recurrent Miscarriage Historical Tobacco use during Urinary tract infection in Procedure/Surgical History section (08/10/2009), section (02/26/2007), Appendectomy, Cholecystectomy. Medications Abilify 5 mg Tab, See Instructions, 5 refills alprazolam 0.5 mg Tab, 0.5 mg= 1 tab(s), Oral, TID, PRN, 1 refills cyclobenzaprine 10 mg Tab, 10 mg= 1 tab(s), Oral, TID, PRN, 1 refills hydrOXYzine hydrochloride 50 mg oral tablet, See Instructions, PRN, 5 refills lamotrigine 150 mg Tab, 150 mg= 1 tab(s), Oral, Daily, 5 refills Tri-Sprintec 35 mcg Tab, 1 tab(s), Oral, Daily, 4 refills Allergies Bactrim Social History Alcohol - Denies Alcohol Use, 10/05/2011 Employment/School Employed, 03/18/2019 Home/Environment Lives with Children, Spouse. Living situation: Home/Independent., 09/12/2018 Substance Abuse - Denies Substance Abuse, 10/05/2011 Tobacco F (more content not included)... Normal [facility] Comment on above: Result Comment: Elec tronically Signed By: Deepa [facility], Maia Montero.mati\Date and Time Signed: 01/29/20 21:44 EDT Video Visit - Telehealth Start Time 3:00pm Stop Time 4:00pm Chief Complaint Bipolar 1 disorder Mental Status Exam Mood: Stable Affect: Full, Congruent Thought Content: No hallucinations of any modality Cognitive Functioning: Alert and Oriented x4, Memory Intact Suicidality and Homicidality: Denied any suicidal or homicidal ideation, plan, intent Diagnosis/Assessment/Tr eatment Plan 1. Bipolar 1 disorder (F31.32: Bipolar disorder, current episode depressed, moderate) Goals: 1. Alleviate depressive symptoms and return to previous level of effective functioning. 2. Normalize energy level and return to usual activities, good judgement, stable mood, realistic expectations, and goal directed behavior. 3. Achieve controlled behavior, moderate mood, deliberative speech and thought processes, and a stable daily activity pattern. Patient will: 1. Describe situations, thoughts, feelings, and actions associated with her symptoms of depression, and the impact on her functioning. 2. Identify, challenge, and replace thoughts and beliefs that support depression. 3. Learn and implement at least two behavioral strategies to overcome depression. Therapist will: 1. Provide empathetic listening and feedback to create a safe environment for patient and to build rapport and trust towards a positive outcome. 2. Assess the patient?s history of suicidality and current suicide risk. 3. Conduct CBT to help the patient understand the connection between thoughts, depressive feelings, and actions/behaviors. 4. Help patient identify what thoughts or situations trigger her depressed mood. 5. Engage patient in using behavior techniques and developing skills that help alleviate depression, and encourage her to practice and use in her daily life. [1] Psychotherapy Summary Inquired about significant events since last session. Facilitated discussion about the frequency and intensity of anxiety or anger experienced. Processed with patient her sadness about her niece leaving home. Acknowledged patient?s thoughts and feelings and how they have had an impact on her mood. Reframed patient's negative statements and thoughts into more positive thoughts. Helped patient identify and practice coping skills that help patient alleviate sadness and anxiety and encourage to practice and use in her daily life. Will continue with this therapeutic focus at next session. Met with patient 1:1 via telehealth for today's session. Patient was in a private room at home. Therapist Intervention Grief therapy Coping techniques Person-centered approach Patient Response Patient was pleasant and engaged during today?s session. Some tearfulness. She is making progress towards her treatment goal of better managing her grief, anxiety and depressive symptoms. Changes In Medical Condition None reported Changes In Functional Impairment None reported Changes In Symptoms Explained None reported Other Information This visit was conducted via two-way, real-time interactive video communications from my office using [employer] due to the restrictions of the COVID-19 pandemic. No physical exam was conducted other than those areas of the body visible to telecommunications with the patient located at [address] [place] [address] [phone], with no one else in attendance. If it is determined that the patient should be evaluated in the clinic, the patient will be directed to the appropriate clinic or venue. The patient or their guardian verbally consented to this visit. Video time was 60 minutes with the patient face to face greater than 50% in addition to counseling and coordination of care. Follow-up in 1 week. Problem List/Past Medical History Ongoing Bipolar 1 disorder Fatigue BOB (generalized anxiety disorder) Hidradenitis suppurativa Major depression, recurrent Miscarriage Historical Tobacco use during Urinary tract infection in Procedure/Surgical History section (08/10/2009), section (02/26/2007), Appendectomy, Cholecystectomy. Medications Abilify 5 mg Tab, See Instructions, 2 refills alprazolam 0.5 mg Tab, 0.5 mg= 1 tab(s), Oral, TID, PRN, 1 refills cyclobenzaprine 10 mg Tab, 10 mg= 1 tab(s), Oral, TID, PRN, 1 refills hydrOXYzine hydrochloride 50 mg oral tablet, See Instructions, PRN, 5 refills lamotrigine 150 mg Tab, 150 mg= 1 tab(s), Oral, Daily, 5 refills Tri-Sprintec 35 mcg Tab, 1 tab(s), Oral, Daily, 4 refills Allergies Bactrim Social History Alcohol - Denies Alcohol Use, 10/05/2011 Employment/School Employed, 03/18/2019 Home/Environment Lives with Children, Spouse. Living situation: Home/Independent., 09/12/2018 Substance Abuse - Denies Substance Abuse, 10/05/2011 Tobacco Former smoker, quit more than 30 days ago Tobacco Use:. Never Smokeless Tobacco Use:. Cigarettes, 1.0 per day. 7 year(s). Total pack years: 7. Stopped age 25 Years. Previous treatment: Counseling. Household tobacco concerns: No. Yes, (more content not included)... Normal [facility] Comment on above: Result Comment: Elec tronically Signed By: Deepa [facility], Maia Montero.br\Date and Time Signed: 01/29/20 21:38 EDT Patient Educationon 01-28-20 20 Patient Education aripiprazole (AR i PIP ra zole) Say Lerma [place] What is the most important information I should know about aripiprazole? Aripiprazole is not approved for use in older adults with dementia-related psychosis. Some people have thoughts about suicide while taking aripiprazole. Stay alert to changes in your mood or symptoms. Report any new or worsening symptoms to your doctor. Do not stop using aripiprazole suddenly, or you could have unpleasant withdrawal symptoms. What is aripiprazole? Aripiprazole is an antipsychotic medicine that is used to treat the symptoms of psychotic conditions such as schizophrenia and bipolar I disorder (manic depression). It is not known if aripiprazole is safe or effective in children younger than 13 with schizophrenia, or children younger than 10 with bipolar disorder. Aripiprazole is also used together with other medicines to treat major depressive disorder in adults. Aripiprazole is also used in children 6 years or older who have Tourette's disorder, or symptoms of autistic disorder (irritability, aggression, mood swings, temper tantrums, and self-injury). Aripiprazole may also be used for purposes not listed in this medication guide. What should I discuss with my healthcare provider before taking aripiprazole? You should not take aripiprazole if you are allergic to it. Aripiprazole may increase the risk of in older adults with dementia-related psychosis and is not approved for this use. Tell your doctor if you have ever had: ?? liver or kidney disease; ? heart disease, high or low blood pressure, heart rhythm problems; ? high cholesterol or triglycerides (a type of fat in the blood); ? low white blood cell (WBC) counts; ? a heart attack or stroke; ? seizures or epilepsy; ? trouble swallowing; ? diabetes (in you or a family member); or ? obsessive-compulsive disorder, impulse-control disorder, or addictive behaviors. Some people have thoughts about suicide while taking aripiprazole. Your doctor will need to check your progress at regular visits. Your family or other caregivers should also be alert to changes in your mood or symptoms. The liquid form (oral solution) of this medication may contain up to 15 grams of sugar per dose. Before taking aripiprazole oral solution, tell your doctor if you have diabetes. Aripiprazole may cause you to have high blood sugar (hyperglycemia). If you are diabetic, check your blood sugar levels on a regular basis while you are taking aripiprazole. The orally disintegrating tablet form of this medication may contain over 3 milligrams of phenylalanine per tablet. Before taking Abilify Discmelt, tell your doctor if you have phenylketonuria. Taking antipsychotic medicine in the last 3 months of may cause problems in the , such as withdrawal symptoms, breathing problems, feeding problems, fussiness, tremors, and limp or stiff muscles. However, you may have withdrawal symptoms or other problems if you stop taking your medicine during . If you become , do not stop taking aripiprazole without your doctor's advice. If you are , your name may be listed on a registry to track the effects of aripiprazole on the baby. It may not be safe to breastfeed while using this medicine. Ask your doctor about any risk. How should I take aripiprazole? Follow all directions on your prescription label and read all medication guides or instruction sheets. Your doctor may occasionally change your dose. Use the medicine exactly as directed. Do not take aripiprazole for longer than 6 weeks unless your doctor has told you to. Aripiprazole can be taken with or without food. Swallow the regular tablet whole and do not crush, chew, or break it. Measure liquid medicine carefully. Use the dosing syringe provided, or use a medicine dose-measuring device (not a kitchen spoon). Remove an orally disintegrating tablet from the package only when you are ready to take the medicine. Place the tablet in your mouth and allow it to dissolve, without chewing. Swallow several times as the tablet dissolves. If desired, you may drink liquid to help swallow the dissolved tablet. Do not stop using aripiprazole suddenly, or you could have unpleasant withdrawal symptoms. Ask your doctor how to safely stop using this medicine. Your doctor will need to check your progress on a regular basis. Store at room temperature away from moisture and heat. Aripiprazole liquid may be used for up to 6 months after opening, but not after the expiration date on the medicine label. What happens if I miss a dose? Take the medicine as soon as you can, but skip the missed dose if it is almost time for your next dose. Do not take two doses at one time. Get your prescription refilled before you run out of medicine completely. What happens if I overdose? Seek emergency medical attention or call the Poison Help line at . Overdose symptoms may include drow (more content not included)... Normal [facility] Video Visit - Telehealtho n 01-13-2020 Video Visit - Telehealth Start Time 3:00pm Stop Time 3:45pm Chief Complaint Bipolar 1 disorder Mental Status Exam Mood: Stable Affect: Full, Tearful, Congruent Thought Content: No hallucinations of any modality Cognitive Functioning: Alert and Oriented x4, Memory Intact Suicidality and Homicidality: Denied any suicidal or homicidal ideation, plan, intent Diagnosis/Assessment/Tr eatment Plan 1. Bipolar 1 disorder (F31.32: Bipolar disorder, current episode depressed, moderate) Goals: 1. Alleviate depressive symptoms and return to previous level of effective functioning. 2. Normalize energy level and return to usual activities, good judgement, stable mood, realistic expectations, and goal directed behavior. 3. Achieve controlled behavior, moderate mood, deliberative speech and thought processes, and a stable daily activity pattern. Patient will: 1. Describe situations, thoughts, feelings, and actions associated with her symptoms of depression, and the impact on her functioning. 2. Identify, challenge, and replace thoughts and beliefs that support depression. 3. Learn and implement at least two behavioral strategies to overcome depression. Therapist will: 1. Provide empathetic listening and feedback to create a safe environment for patient and to build rapport and trust towards a positive outcome. 2. Assess the patient?s history of suicidality and current suicide risk. 3. Conduct CBT to help the patient understand the connection between thoughts, depressive feelings, and actions/behaviors. 4. Help patient identify what thoughts or situations trigger her depressed mood. 5. Engage patient in using behavior techniques and developing skills that help alleviate depression, and encourage her to practice and use in her daily life. [1] Psychotherapy Summary Met with patient 1:1 via telehealth for today's session. Patient was in a private room at home. Inquired about significant events since last session. Facilitated discussion about the frequency and intensity of symptoms experienced. Processed with patient her level of grief. Commended patient for engaging in daily activities. Acknowledged patient?s thoughts and feelings and how they have had an impact on her mood. Used CBT to help patient understand the connection between her thoughts, feelings and actions/behaviors. Helped patient identify and practice coping skills that help patient alleviate sadness and mood instability and encourage to practice and use in her daily life. Will continue with this therapeutic focus at next session. Therapist Intervention CBT Grief Counseling Patient Response Patient appears to be slowly moving forward in the grief process. She continues to have episodes of sadness,where she feels her emotions escalating, but is able to control them as well as she is able so to continue with her day to day life. She went camping with family this past weekend, and did have to spend time in solitude when her emotions became unmanageable. Patient is able to do her job at work. She struggles at home. Changes In Medical Condition None reported Changes In Functional Impairment None reported Changes In Symptoms Explained None reported Other Information This visit was conducted via two-way, real-time interactive video communications from my office using [employer] due to the restrictions of the COVID-19 pandemic. No physical exam was conducted other than those areas of the body visible to telecommunications with the patient located at [address] [place] [address], with no one else in attendance. If it is determined that the patient should be evaluated in the clinic, the patient will be directed to the appropriate clinic or venue. The patient or their guardian verbally consented to this visit. Video time was 45 minutes with the patient face to face greater than 50% in addition to counseling and coordination of care. Problem List/Past Medical History Ongoing Bipolar 1 disorder Fatigue BOB (generalized anxiety disorder) Hidradenitis suppurativa Major depression, recurrent Miscarriage Historical Tobacco use during Urinary tract infection in Procedure/Surgical History section (08/10/2009), section (02/26/2007), Appendectomy, Cholecystectomy. Medications Abilify 5 mg Tab, See Instructions alprazolam 0.5 mg Tab, 0.5 mg= 1 tab(s), Oral, TID, PRN, 1 refills cyclobenzaprine 10 mg Tab, 10 mg= 1 tab(s), Oral, TID, PRN, 1 refills hydrOXYzine hydrochloride 50 mg oral tablet, See Instructions, PRN, 5 refills lamotrigine 150 mg Tab, 150 mg= 1 tab(s), Oral, Daily, 5 refills Tri-Sprintec 35 mcg Tab, 1 tab(s), Oral, Daily, 4 refills Allergies Bactrim Social History Alcohol - Denies Alcohol Use, 10/05/2011 Employment/School Employed, 03/18/2019 Home/Environment Lives with Children, Spouse. Living situation: Home/Independent., 09/12/2018 Substance Abuse - Denies Substance Abuse, 10/05/2011 Tobacco For (more content not included)... Normal [facility] Comment on above: Result Comment: Elec tronically Signed By: Deepa [facility], Maia Ashley\.br\Date and Time Signed: 01/13/20 09:40 EDT Patient Educationon 01-13-20 20 Patient Education aripiprazole (AR i PIP ra anitha) Say Lerma Discmelh[place] What is the most important information I should know about aripiprazole? Aripiprazole is not approved for use in older adults with dementia-related psychosis. Some people have thoughts about suicide while taking aripiprazole. Stay alert to changes in your mood or symptoms. Report any new or worsening symptoms to your doctor. Do not stop using aripiprazole suddenly, or you could have unpleasant withdrawal symptoms. What is aripiprazole? Aripiprazole is an antipsychotic medicine that is used to treat the symptoms of psychotic conditions such as schizophrenia and bipolar I disorder (manic depression). It is not known if aripiprazole is safe or effective in children younger than 13 with schizophrenia, or children younger than 10 with bipolar disorder. Aripiprazole is also used together with other medicines to treat major depressive disorder in adults. Aripiprazole is also used in children 6 years or older who have Tourette's disorder, or symptoms of autistic disorder (irritability, aggression, mood swings, temper tantrums, and self-injury). Aripiprazole may also be used for purposes not listed in this medication guide. What should I discuss with my healthcare provider before taking aripiprazole? You should not take aripiprazole if you are allergic to it. Aripiprazole may increase the risk of in older adults with dementia-related psychosis and is not approved for this use. Tell your doctor if you have ever had: ?? liver or kidney disease; ? heart disease, high or low blood pressure, heart rhythm problems; ? high cholesterol or triglycerides (a type of fat in the blood); ? low white blood cell (WBC) counts; ? a heart attack or stroke; ? seizures or epilepsy; ? trouble swallowing; ? diabetes (in you or a family member); or ? obsessive-compulsive disorder, impulse-control disorder, or addictive behaviors. Some people have thoughts about suicide while taking aripiprazole. Your doctor will need to check your progress at regular visits. Your family or other caregivers should also be alert to changes in your mood or symptoms. The liquid form (oral solution) of this medication may contain up to 15 grams of sugar per dose. Before taking aripiprazole oral solution, tell your doctor if you have diabetes. Aripiprazole may cause you to have high blood sugar (hyperglycemia). If you are diabetic, check your blood sugar levels on a regular basis while you are taking aripiprazole. The orally disintegrating tablet form of this medication may contain over 3 milligrams of phenylalanine per tablet. Before taking Abilify Discmelt, tell your doctor if you have phenylketonuria. Taking antipsychotic medicine in the last 3 months of may cause problems in the , such as withdrawal symptoms, breathing problems, feeding problems, fussiness, tremors, and limp or stiff muscles. However, you may have withdrawal symptoms or other problems if you stop taking your medicine during . If you become , do not stop taking aripiprazole without your doctor's advice. If you are , your name may be listed on a registry to track the effects of aripiprazole on the baby. It may not be safe to breastfeed while using this medicine. Ask your doctor about any risk. How should I take aripiprazole? Follow all directions on your prescription label and read all medication guides or instruction sheets. Your doctor may occasionally change your dose. Use the medicine exactly as directed. Do not take aripiprazole for longer than 6 weeks unless your doctor has told you to. Aripiprazole can be taken with or without food. Swallow the regular tablet whole and do not crush, chew, or break it. Measure liquid medicine carefully. Use the dosing syringe provided, or use a medicine dose-measuring device (not a kitchen spoon). Remove an orally disintegrating tablet from the package only when you are ready to take the medicine. Place the tablet in your mouth and allow it to dissolve, without chewing. Swallow several times as the tablet dissolves. If desired, you may drink liquid to help swallow the dissolved tablet. Do not stop using aripiprazole suddenly, or you could have unpleasant withdrawal symptoms. Ask your doctor how to safely stop using this medicine. Your doctor will need to check your progress on a regular basis. Store at room temperature away from moisture and heat. Aripiprazole liquid may be used for up to 6 months after opening, but not after the expiration date on the medicine label. What happens if I miss a dose? Take the medicine as soon as you can, but skip the missed dose if it is almost time for your next dose. Do not take two doses at one time. Get your prescription refilled before you run out of medicine completely. What happens if I overdose? Seek emergency medical attention or call the Poison Help line at . Overdose symptoms may include drow (more content not included)... Normal [facility] Video Visit - Telehealtho n 01-07-2020 Video Visit - Telehealth Start Time 4:00pm Stop Time 4:53pm Chief Complaint Bipolar 1 disorder Grief Mental Status Exam Mood: Sad Affect: Flat, Congruent Thought Content: No hallucinations of any modality Cognitive Functioning: Alert and Oriented x4, Memory Intact Suicidality and Homicidality: Denied any suicidal or homicidal ideation, plan, intent Diagnosis/Assessment/Tr eatment Plan 1. Bipolar 1 disorder (F31.32: Bipolar disorder, current episode depressed, moderate) Goals: 1. Alleviate depressive symptoms and return to previous level of effective functioning. 2. Normalize energy level and return to usual activities, good judgement, stable mood, realistic expectations, and goal directed behavior. 3. Achieve controlled behavior, moderate mood, deliberative speech and thought processes, and a stable daily activity pattern. Patient will: 1. Describe situations, thoughts, feelings, and actions associated with her symptoms of depression, and the impact on her functioning. 2. Identify, challenge, and replace thoughts and beliefs that support depression. 3. Learn and implement at least two behavioral strategies to overcome depression. Therapist will: 1. Provide empathetic listening and feedback to create a safe environment for patient and to build rapport and trust towards a positive outcome. 2. Assess the patient?s history of suicidality and current suicide risk. 3. Conduct CBT to help the patient understand the connection between thoughts, depressive feelings, and actions/behaviors. 4. Help patient identify what thoughts or situations trigger her depressed mood. 5. Engage patient in using behavior techniques and developing skills that help alleviate depression, and encourage her to practice and use in her daily life. Psychotherapy Summary Met with patient 1:1 via telehealth for today's session. Patient was in her car with no one else present. Inquired about significant events since last session. Facilitated discussion about the frequency and intensity of symptoms experienced. Processed with patient her statement that she does not think her grief is getting any better. Acknowledged patient?s thoughts and feelings and how they have had an impact on her mood. Used CBT to help patient understand the connection between her thoughts, feelings and actions/behaviors. Used strength-based approach to help patient deal with her grief and guilt in a more healthy manner. Encouraged patient to talk about ways to distract her thoughts. Therapist Intervention CBT Strength-based approach Thought distraction Patient Response Patient presented as sad today, however she was able to identify good things in her life. She has been able to return to usual activities, which she enjoys but also makes her feels sad because of her daughter. Patient states that she and her family are going camping this weekend, and she indicates she is looking forward to it. Patient was able to see this a progress in the grief process. Changes In Medical Condition None reported Changes In Functional Impairment None reported Changes In Symptoms Explained None reported Other Information This visit was conducted via two-way, real-time interactive video communications from my office using [employer] due to the restrictions of the COVID-19 pandemic. No physical exam was conducted other than those areas of the body visible to telecommunications with the patient located at [address] [place] [phone], with no one else in attendance. If it is determined that the patient should be evaluated in the clinic, the patient will be directed to the appropriate clinic or venue. The patient or their guardian verbally consented to this visit. Video time was 53 minutes with the patient face to face greater than 50% in addition to counseling and coordination of care. Problem List/Past Medical History Ongoing Bipolar 1 disorder Fatigue BOB (generalized anxiety disorder) Hidradenitis suppurativa Major depression, recurrent Miscarriage Historical Tobacco use during Urinary tract infection in Procedure/Surgical History section (08/10/2009), section (02/26/2007), Appendectomy, Cholecystectomy. Medications Abilify 5 mg Tab, See Instructions alprazolam 0.5 mg Tab, 0.5 mg= 1 tab(s), Oral, TID, PRN, 1 refills cyclobenzaprine 10 mg Tab, 10 mg= 1 tab(s), Oral, TID, PRN, 1 refills hydrOXYzine hydrochloride 50 mg oral tablet, See Instructions, PRN, 5 refills lamotrigine 150 mg Tab, 150 mg= 1 tab(s), Oral, Daily, 5 refills Tri-Sprintec 35 mcg Tab, 1 tab(s), Oral, Daily, 4 refills Allergies Bactrim Social History Alcohol - Denies Alcohol Use, 10/05/2011 Employment/School Employed, 03/18/2019 Home/Environment Lives with Children, Spouse. Living situation: Home/Independent., 09/12/2018 Substance Abuse - Denies Substance Abuse, 10/05/2011 Tobacco Former smoker, quit more than 30 days ago Tobacco Use:. N (more content not included)... Normal [facility] Comment on above: Result Comment: Elec tronically Signed By: Deepa [facility], Maia Montero.br\Date and Time Signed: 01/07/20 12:38 EDT Video Visit - Telehealtho n 12-30-2019 Video Visit - Telehealth Start Time 3:00pm Stop Time 4:00pm Chief Complaint Bipolar 1 disorder Mental Status Exam Mood: Sad, Angry Affect: Full, Congruent Thought Content: No hallucinations of any modality Cognitive Functioning: Alert and Oriented x4, Memory Intact Suicidality and Homicidality: Denied any suicidal or homicidal ideation, plan, intent Diagnosis/Assessment/Tr eatment Plan 1. Bipolar 1 disorder (F31.32: Bipolar disorder, current episode depressed, moderate) Goals: 1. Alleviate depressive symptoms and return to previous level of effective functioning. 2. Normalize energy level and return to usual activities, good judgement, stable mood, realistic expectations, and goal directed behavior. 3. Achieve controlled behavior, moderate mood, deliberative speech and thought processes, and a stable daily activity pattern. Patient will: 1. Describe situations, thoughts, feelings, and actions associated with her symptoms of depression, and the impact on her functioning. 2. Identify, challenge, and replace thoughts and belie that support depression. 3. Learn and implement at least two behavioral strategies to overcome depression. Therapist will: 1. Provide empathetic listening and feedback to create a safe environment for patient and to build rapport and trust towards a positive outcome. 2. Assess the patient?s history of suicidality and current suicide risk. 3. Conduct CBT to help the patient understand the connection between thoughts, depressive feelings, and actions/behaviors. 4. Help patient identify what thoughts or situations trigger her depressed mood. 5. Engage patient in using behavior techniques and developing skills that help alleviate depression, and encourage her to practice and use in her daily life. [1] Psychotherapy Summary Met with patient 1:1 via telehealth for today's session. Patient was in a private room at home. Inquired about significant events since last session. Facilitated discussion about the frequency and intensity of symptoms experienced. Processed with patient the distress she has been experiencing since her niece moved out. Acknowledged patient?s thoughts and feelings and how they have had an impact on her mood. Allowed patient to openly express what she has been going through since niece left. Focused on her feelings as a type of grief or loss. Therapist Intervention Person-centered approach Loss therapy Patient Response Patient was tearful and distraught during today's session. She reports that her niece has not returned home, however she has talked to her daily. Patient expressed the range of emotions she is feeling including sadness, anger, loss, hurt, betrayal. Will follow-up with this therapeutic focus at next session. Changes In Medical Condition None reported Changes In Functional Impairment None reported Changes In Symptoms Explained None reported Other Information This visit was conducted via two-way, real-time interactive video communications from my office using [employer] due to the restrictions of the COVID-19 pandemic. No physical exam was conducted other than those areas of the body visible to telecommunications with the patient located at [address] [place], [place] [phone], with no one else in attendance. If it is determined that the patient should be evaluated in the clinic, the patient will be directed to the appropriate clinic or venue. The patient or their guardian verbally consented to this visit. Video time was 60 minutes with the patient face to face greater than 50% in addition to counseling and coordination of care. Follow-up in 1 week Problem List/Past Medical History Ongoing Bipolar 1 disorder Fatigue BOB (generalized anxiety disorder) Hidradenitis suppurativa Major depression, recurrent Miscarriage Historical Tobacco use during Urinary tract infection in Procedure/Surgical History section (08/10/2009), section (02/26/2007), Appendectomy, Cholecystectomy. Medications Abilify 5 mg Tab, See Instructions alprazolam 0.5 mg Tab, 0.5 mg= 1 tab(s), Oral, TID, PRN, 1 refills cyclobenzaprine 10 mg Tab, 10 mg= 1 tab(s), Oral, TID, PRN, 1 refills hydrOXYzine hydrochloride 50 mg oral tablet, See Instructions, PRN, 5 refills lamotrigine 150 mg Tab, 150 mg= 1 tab(s), Oral, Daily, 5 refills Tri-Sprintec 35 mcg Tab, 1 tab(s), Oral, Daily, 4 refills Allergies Bactrim Social History Alcohol - Denies Alcohol Use, 10/05/2011 Employment/School Employed, 03/18/2019 Home/Environment Lives with Children, Spouse. Living situation: Home/Independent., 09/12/2018 Substance Abuse - Denies Substance Abuse, 10/05/2011 Tobacco Former smoker, quit more than 30 days ago Tobacco Use:. Never Smokeless Tobacco Use:. Cigarettes, 1.0 per day. 7 year(s). Total pack years: 7. Stopped age 25 Years. Previous treatment: Counseling. Household tobacco concerns: No. Yes, 12/23/2019 Family History Alcoholism: Father and (more content not included)... Normal [facility] Comment on above: Result Comment: Elec tronically Signed By: [facility]a [facility]\Date and Time Signed: 12/30/19 13:50 EDT Video Visit - Telehealtho n 12-23-2019 Video Visit - Telehealth Start Time 3:00pm Stop Time 4:00pm Chief Complaint Bipolar 1 disorder Mental Status Exam Mood: Down, Anxious Affect: Flat, Congruent Thought Content: No hallucinations of any modality Cognitive Functioning: Alert and Oriented x4, Memory Intact Suicidality and Homicidality: Denied any suicidal or homicidal ideation, plan, intent Diagnosis/Assessment/Tr eatment Plan 1. Bipolar 1 disorder (F31.32: Bipolar disorder, current episode depressed, moderate) Goals: 1. Alleviate depressive symptoms and return to previous level of effective functioning. 2. Normalize energy level and return to usual activities, good judgement, stable mood, realistic expectations, and goal directed behavior. 3. Achieve controlled behavior, moderate mood, deliberative speech and thought processes, and a stable daily activity pattern. Patient will: 1. Describe situations, thoughts, feelings, and actions associated with her symptoms of depression, and the impact on her functioning. 2. Identify, challenge, and replace thoughts and belie that support depression. 3. Learn and implement at least two behavioral strategies to overcome depression. Therapist will: 1. Provide empathetic listening and feedback to create a safe environment for patient and to build rapport and trust towards a positive outcome. 2. Assess the patient?s history of suicidality and current suicide risk. 3. Conduct CBT to help the patient understand the connection between thoughts, depressive feelings, and actions/behaviors. 4. Help patient identify what thoughts or situations trigger her depressed mood. 5. Engage patient in using behavior techniques and developing skills that help alleviate depression, and encourage her to practice and use in her daily life. [1] Psychotherapy Summary Met with patient 1:1 via telehealth for today's session. Patient was in a private room at home. Inquired about significant events since last session. Facilitated discussion about the frequency and intensity of symptoms experienced. Processed with patient how she feels she is adapting to life without her daughter. Acknowledged patient?s thoughts and feelings and how they have had an impact on her mood. Allowed patient to freely express her thoughts and feelings about her niece leaving the home. Will continue with this therapeutic focus at next session. Therapist Intervention Grief counseling Person-centered approach Patient Response Patient continues to feel intense grief and loss. She struggles at work, and at times finds it difficult to do her job duties. Patient informed that her niece, who she has had custody of for the last 10+ years, left the home 1 month prior to turning age 18. She left a note, and took her belongings. Is now staying with a friend. Patient states that the reason niece stated is that patient is too short tempered and she can't take it any more . Patient is feeling hurt, as patient has been her mother-figure since she was a child. Patient feels guilty because her other children are feeling the upheaval from this now, so close to their younger sister passing away. Patient agreed to talk with Carlota Rodriguez about her current symptoms - increased anxiety and irritability- and review her medications. Changes In Medical Condition None reported Changes In Functional Impairment None reported Changes In Symptoms Explained None reported Other Information This visit was conducted via two-way, real-time interactive video communications from my office using [employer] due to the restrictions of the COVID-19 pandemic. No physical exam was conducted other than those areas of the body visible to telecommunications with the patient located at [address] [place], [place] [id number], with no one else in attendance. If it is determined that the patient should be evaluated in the clinic, the patient will be directed to the appropriate clinic or venue. The patient or their guardian verbally consented to this visit. Video time was 60 minutes with the patient face to face greater than 50% in addition to counseling and coordination of care. Follow-up in 1 week Problem List/Past Medical History Ongoing Bipolar 1 disorder Fatigue BOB (generalized anxiety disorder) Hidradenitis suppurativa Major depression, recurrent Miscarriage Historical Tobacco use during Urinary tract infection in Procedure/Surgical History section (08/10/2009), section (02/26/2007), Appendectomy, Cholecystectomy. Medications Abilify 5 mg Tab, See Instructions alprazolam 0.5 mg Tab, 0.5 mg= 1 tab(s), Oral, TID, PRN, 1 refills cyclobenzaprine 10 mg Tab, 10 mg= 1 tab(s), Oral, TID, PRN, 1 refills hydrOXYzine hydrochloride 50 mg oral tablet, See Instructions, PRN, 5 refills lamotrigine 150 mg Tab, 150 mg= 1 tab(s), Oral, Daily, 5 refills Tri-Sprintec 35 mcg Tab, 1 tab(s), Oral, Daily, 4 refills Allergies Bactrim Social History Alcohol - Denies Alcohol U (more content not included)... Normal [facility] Comment on above: Result Comment: Elec tronically Signed By: Deepa FONTA[facility]C, Maia Montero.mati\Date and Time Signed: 12/23/19 16:54 EDT Patient Educationon 12-23-19 20 Patient Education aripiprazole (KEMAR welsh) Say Lerma What is the most important information I should know about aripiprazole? Aripiprazole is not approved for use in older adults with dementia-related psychosis. Some people have thoughts about suicide while taking aripiprazole. Stay alert to changes in your mood or symptoms. Report any new or worsening symptoms to your doctor. Do not stop using aripiprazole suddenly, or you could have unpleasant withdrawal symptoms. What is aripiprazole? Aripiprazole is an antipsychotic medicine that is used to treat the symptoms of psychotic conditions such as schizophrenia and bipolar I disorder (manic depression). It is not known if aripiprazole is safe or effective in children younger than 13 with schizophrenia, or children younger than 10 with bipolar disorder. Aripiprazole is also used together with other medicines to treat major depressive disorder in adults. Aripiprazole is also used in children 6 years or older who have Tourette's disorder, or symptoms of autistic disorder (irritability, aggression, mood swings, temper tantrums, and self-injury). Aripiprazole may also be used for purposes not listed in this medication guide. What should I discuss with my healthcare provider before taking aripiprazole? You should not take aripiprazole if you are allergic to it. Aripiprazole may increase the risk of in older adults with dementia-related psychosis and is not approved for this use. Tell your doctor if you have ever had: ?? liver or kidney disease; ? heart disease, high or low blood pressure, heart rhythm problems; ? high cholesterol or triglycerides (a type of fat in the blood); ? low white blood cell (WBC) counts; ? a heart attack or stroke; ? seizures or epilepsy; ? trouble swallowing; ? diabetes (in you or a family member); or ? obsessive-compulsive disorder, impulse-control disorder, or addictive behaviors. Some people have thoughts about suicide while taking aripiprazole. Your doctor will need to check your progress at regular visits. Your family or other caregivers should also be alert to changes in your mood or symptoms. The liquid form (oral solution) of this medication may contain up to 15 grams of sugar per dose. Before taking aripiprazole oral solution, tell your doctor if you have diabetes. Aripiprazole may cause you to have high blood sugar (hyperglycemia). If you are diabetic, check your blood sugar levels on a regular basis while you are taking aripiprazole. The orally disintegrating tablet form of this medication may contain over 3 milligrams of phenylalanine per tablet. Before taking Abilify Discmelt, tell your doctor if you have phenylketonuria. Taking antipsychotic medicine in the last 3 months of may cause problems in the , such as withdrawal symptoms, breathing problems, feeding problems, fussiness, tremors, and limp or stiff muscles. However, you may have withdrawal symptoms or other problems if you stop taking your medicine during . If you become , do not stop taking aripiprazole without your doctor's advice. If you are , your name may be listed on a registry to track the effects of aripiprazole on the baby. It may not be safe to breastfeed while using this medicine. Ask your doctor about any risk. How should I take aripiprazole? Follow all directions on your prescription label and read all medication guides or instruction sheets. Your doctor may occasionally change your dose. Use the medicine exactly as directed. Do not take aripiprazole for longer than 6 weeks unless your doctor has told you to. Aripiprazole can be taken with or without food. Swallow the regular tablet whole and do not crush, chew, or break it. Measure liquid medicine carefully. Use the dosing syringe provided, or use a medicine dose-measuring device (not a kitchen spoon). Remove an orally disintegrating tablet from the package only when you are ready to take the medicine. Place the tablet in your mouth and allow it to dissolve, without chewing. Swallow several times as the tablet dissolves. If desired, you may drink liquid to help swallow the dissolved tablet. Do not stop using aripiprazole suddenly, or you could have unpleasant withdrawal symptoms. Ask your doctor how to safely stop using this medicine. Your doctor will need to check your progress on a regular basis. Store at room temperature away from moisture and heat. Aripiprazole liquid may be used for up to 6 months after opening, but not after the expiration date on the medicine label. What happens if I miss a dose? Take the medicine as soon as you can, but skip the missed dose if it is almost time for your next dose. Do not take two doses at one time. Get your prescription refilled before you run out of medicine completely. What happens if I overdose? Seek emergency medical attention or call the Poison Help line at . Overdose symptoms may include drow (more content not included)... Normal [facility] Video Visit - Telehealtho n 12-04-2019 Video Visit - Telehealth Start Time 4:00pm Stop Time 5:00pm Chief Complaint Bipolar Disorder Grief Mental Status Exam Mood: Sad Affect: Flat, Congruent Thought Content: No hallucinations of any modality Cognitive Functioning: Alert and Oriented x4, Memory Intact Suicidality and Homicidality: Denied any suicidal or homicidal ideation, plan, intent Diagnosis/Assessment/Tr eatment Plan 1. Bipolar 1 disorder (F31.32: Bipolar disorder, current episode depressed, moderate) Goals: 1. Alleviate depressive symptoms and return to previous level of effective functioning. 2. Normalize energy level and return to usual activities, good judgement, stable mood, realistic expectations, and goal directed behavior. 3. Achieve controlled behavior, moderate mood, deliberative speech and thought processes, and a stable daily activity pattern. Patient will: 1. Describe situations, thoughts, feelings, and actions associated with her symptoms of depression, and the impact on her functioning. 2. Identify, challenge, and replace thoughts and belie that support depression. 3. Learn and implement at least two behavioral strategies to overcome depression. Therapist will: 1. Provide empathetic listening and feedback to create a safe environment for patient and to build rapport and trust towards a positive outcome. 2. Assess the patient?s history of suicidality and current suicide risk. 3. Conduct CBT to help the patient understand the connection between thoughts, depressive feelings, and actions/behaviors. 4. Help patient identify what thoughts or situations trigger her depressed mood. 5. Engage patient in using behavior techniques and developing skills that help alleviate depression, and encourage her to practice and use in her daily life. [1] Psychotherapy Summary Met with patient 1:1 via telehealth for today's session. Patient was in a private area at home. Facilitated discussion about significant events which occurred since last session. Provided supportive listening and feedback for patient as she spoke about her grief. Processed with her the frequency and intensity of symptoms she has been experiencing. Acknowledged patient?s thoughts and feelings and how they have had an impact on her mood. Used CBT to help patient understand the connection between her thoughts, feelings and actions/behaviors. Educated patient on how grounding techniques can help her manage intense emotion. Will continue with this therapeutic focus at next session. Therapist Intervention CBT Grief counseling Patient Response Patient presented as sad and anxious. She tested positive weeks ago for COVID-19 and became very ill. She was admitted to the hospital 2x. She has returned to work. Patient indicated that when she walked back into her home after being in the hospital, she felt as if the Reset button was pushed meaning that she believes all the progress she made with managing her grief has started over at the beginning. Patient states that her emotions have been volatile with being irritated, angry, short tempered, easily frustrated. She had insight that this is the Anger stage of grief. Patient will be going on vacation next week. Talked about how she hopes this will be a time for her to relax and enjoy her family. Patient Assignment Review e-mailed grounding techniques to discuss at next session Changes In Medical Condition Recovering from COVID-19 Changes In Functional Impairment None reported Changes In Symptoms Explained Increased depression Other Information This visit was conducted via two-way, real-time interactive video communications from my office using [employer] due to the restrictions of the COVID-19 pandemic. No physical exam was conducted other than those areas of the body visible to telecommunications with the patient located at [address] [place] [address], with no one else in attendance. If it is determined that the patient should be evaluated in the clinic, the patient will be directed to the appropriate clinic or venue. The patient or their guardian verbally consented to this visit. Video time was 60 minutes with the patient face to face greater than 50% in addition to counseling and coordination of care. Problem List/Past Medical History Ongoing Bipolar 1 disorder Fatigue BOB (generalized anxiety disorder) Hidradenitis suppurativa Major depression, recurrent Miscarriage Historical Tobacco use during Urinary tract infection in Procedure/Surgical History section (08/10/2009), section (02/26/2007), Appendectomy, Cholecystectomy. Medications alprazolam 0.5 mg Tab, 0.5 mg= 1 tab(s), Oral, TID, PRN, 1 refills buPROPion 150 mg/24 hours ER Tab, 150 mg= 1 tab(s), Oral, q24hr, 2 refills cyclobenzaprine 10 mg Tab, 10 mg= 1 tab(s), Oral, TID, PRN, 1 refills hydrOXYzine hydrochloride 50 mg oral tablet, See Instructions, PRN, 5 refills lamotrigine 150 mg Tab, 150 mg= 1 tab(s), Oral, Daily, 5 (more content not included)... Normal [facility] Comment on above: Result Comment: Elec tronically Signed By: Deepa [facility] [email or web address]\Date and Time Signed: 12/04/19 09:42 EDT Patient Educationon 12-02-19 Patient Education bupropion (byoo PRO pee on) Aplenzin, Forfivo XL, Wellbutrin SR, Wellbutrin XL, Zyban Advantage Pack What is the most important information I should know about bupropion? You should not take bupropion if you have seizures or an eating disorder, or if you have suddenly stopped using alcohol, seizure medication, or sedatives. If you take Wellbutrin for depression, do not also take Zyban to quit smoking. Do not use bupropion within 14 days before or 14 days after you have used an MAO inhibitor, such as isocarboxazid, linezolid, methylene blue injection, phenelzine, rasagiline, selegiline, or tranylcypromine. Some young people have thoughts about suicide when first taking an antidepressant. Stay alert to changes in your mood or symptoms. Report any new or worsening symptoms to your doctor. What is bupropion? Bupropion is an antidepressant used to treat major depressive disorder and seasonal affective disorder. The Zyban brand of bupropion is used to help people stop smoking by reducing cravings and other withdrawal effects. Bupropion may also be used for purposes not listed in this medication guide. What should I discuss with my healthcare provider before taking bupropion? You should not take bupropion if you are allergic to it, or if you have: ?? a seizure disorder; ? an eating disorder such as anorexia or bulimia; or ? if you have suddenly stopped using alcohol, seizure medication, or a sedative (such as Xanax, Valium, Fiorinal, Klonopin, and others). Do not use an MAO inhibitor within 14 days before or 14 days after you take bupropion. A dangerous drug interaction could occur. MAO inhibitors include isocarboxazid, linezolid, phenelzine, rasagiline, selegiline, and tranylcypromine. Do not take bupropion to treat more than one condition at a time. If you take bupropion for depression, do not also take this medicine to quit smoking. Bupropion may cause seizures, especially if you have certain medical conditions or use certain drugs. Tell your doctor about all of your medical conditions and the drugs you use. Tell your doctor if you have ever had: ?? a head injury, seizures, or brain or spinal cord tumor; ? narrow-angle glaucoma; ? heart disease, high blood pressure, or a heart attack; ? diabetes; ? kidney or liver disease (especially cirrhosis); ? depression, bipolar disorder, or other mental illness; or ? if you drink alcohol. Some young people have thoughts about suicide when first taking an antidepressant. Your doctor will need to check your progress at regular visits. Your family or other caregivers should also be alert to changes in your mood or symptoms. Ask your doctor about taking this medicine if you are . It is not known whether bupropion will harm an unborn baby. However, you may have a relapse of depression if you stop taking your antidepressant. Tell your doctor right away if you become . Do not start or stop taking bupropion without your doctor's advice. If you are , your name may be listed on a registry to track the effects of bupropion on the baby. It may not be safe to breastfeed while using this medicine. Ask your doctor about any risk. Bupropion is not approved for use by anyone younger than 18 years old. How should I take bupropion? Follow all directions on your prescription label and read all medication guides or instruction sheets. Your doctor may occasionally change your dose. Use the medicine exactly as directed. Too much of this medicine can increase your risk of a seizure. You may take bupropion with or without food. Swallow the extended-release tablet whole and do not crush, chew, or break it. You should not change your dose or stop using bupropion suddenly, unless you have a seizure while taking this medicine. Stopping suddenly can cause unpleasant withdrawal symptoms. Ask your doctor how to safely stop using bupropion. If you take Zyban to help you stop smoking, you may continue to smoke for about 1 week after you start the medicine. Set a date to quit smoking during the first 2 weeks of treatment. Talk to your doctor if you have trouble quitting after taking Zyban for 7 to 12 weeks. Your doctor may prescribe a nicotine replacement product (such as patches or gum) to help you stop smoking. Start using the nicotine replacement product on the same day you stop (quit) smoking or using tobacco products. Some people taking bupropion (Wellbutrin or Zyban) have had high blood pressure that is severe, especially when also using a nicotine replacement product (patch or gum). Your blood pressure may need to be checked before and during treatment with bupropion. Read and carefully follow any Instructions for Use provided with your medicine. Ask your doctor or pharmacist if you do not understand these instructions. You may have nicotine withdrawal symptoms when you stop smoking, including: increased appetite, weight gain, trouble sleeping, trouble concentrating, slower heart rate, h (more content not included)... Normal [facility] Vital Signs Date Time Vital Sign Value Performing Clinician Facility 04-27-2023 16:30-0500 Body height 160.02 cm Sanaz Lockwood Other [facility] Other 04-27-2023 16:30-0500 Body mass index (BMI) [Ratio] 40.92 kg/m2 Sanaz Lockwood Other [facility] Other 04-27-2023 16:30-0500 Body temperature 98.2 [degF] Sanaz Lockwood Other [facility] Other 04-27-2023 16:30-0500 Body weight 104.78 kg Sanaz Lockwood Other [facility] Other 04-27-2023 16:30-0500 Respiratory rate 18 /min Sanaz Lockwood Other [facility] Other 04-27-2023 16:30-0500 SaO2% (BldA) [Mass fraction] 99 % Sanaz Lockwood Other [facility] Other 05-10-2022 14:45-0500 Body height 160.02 cm Kaylah Han Other [facility] Other 05-10-2022 14:45-0500 Body mass index (BMI) [Ratio] 38.97 kg/m2 Kaylah Han Other [facility] Other 05-10-2022 14:45-0500 Body temperature 99.3 [degF] Kaylah Han Other [facility] Other 05-10-2022 14:45-0500 Body weight 99.79 kg Kaylah Han Other [facility] Other 06-29-2019 22:40-0500 Pulse (Heart Rate) 84 /min [facility] 06-29-2019 22:40-0500 Pulse Oximetry 97 % [facility] 06-29-2019 22:35-0500 BP Diastolic 56 mm[Hg] [facility] 06-29-2019 22:35-0500 BP Systolic 100 mm[Hg] [facility] 06-29-2019 21:11-0500 BMI (Body Mass Index) 33.1 kg/m2 [facility] 06-29-2019 21:11-0500 Body Temperature 97.8 [degF] [facility] 06-29-2019 21:11-0500 Body weight 84.8 kg [facility] 06-29-2019 21:11-0500 Height 160.02 cm [facility] 06-29-2019 21:11-0500 Respiratory Rate 20 /min [facility] Encounters Encounter Date Encounter Type Care Provider Facility Start: 04-27-2023 End: 04-27-2023 ambulatory Sanaz Lockwood Other [facility] Other Start: 04-27-2023 Office outpatient visit 25 minutes Sanaz Lockwood [facility] Start: 05-10-2022 End: 05-10-2022 ambulatory Kaylah Han Other [facility] Other Start: 05-10-2022 Office outpatient ne w 20 minutes Kaylah Han [facility] Start: 04-27-2022 End: 04-27-2022 ambulatory KIMBERLYN XIE Facility:[facility] Start: 03-07-2022 End: 03-07-2022 ambulatory KIMBERLYN XIE Facility:[facility] Start: 09-23-[address] JAZIEL HILL Facility :[facility] Start: 06-29-2019 End: 06-29-2019 Emergency department patient visit Kimbrelyn Xie [facility] Plan of Treatment Date Care Activity Detail Author Patient Education Epinephrine (B y injection) Anaphylaxis (ED) General Allergic Reaction (ED) [facility] Patient referral [facility] Payers Date Payer Category Payer Unknown [id number] 1987 Unknown [id number] 1987 Unknown [id number] 1957 Self-pay [id number] 1957 Unknown [id number] Private Health Insurance Self Pay [id number] Self-pay Self Pay [id number] Social History Date Type Detail Facility Start: 06-29-2019 Tobacco smoking status NHIS Smoker (finding) [facility] Start: 1985 Sex Assigned At Female F [facility] Sex Assigned At Sex Assigned At Bir th [facility] Other Goals Date Patient Goal Desired Activity /State Evaluation note 04-27-2023 Note Date & Type Note Facility 04-27-2023 Evaluation note Encounter Date Diagnosis Assessment Notes Mar, Suspected COVID-19 virus infection (ICD-10 - Z20.822) Mar, Viral URI with cough (ICD-10 - J06.9) Advised patient that COVID/Influenza A/B test and rapid Strep test was negative today. Advised patient that will treat as viral URI. Supportive care as directed, increase fluids and rest, Tylenol as directed, rx of Capmist and prednisone, cool mist humidifier, throat lozenges. Discussed infection control practices such as good hand washing and mask wearing. Patient to follow up with PCP if symptoms persist or worsen despite treatment. Immediate eval for SOB, difficulty breathing, chest pain, fevers that do not break with antipyretic or any other concerning symptoms as reviewed on patient education handout. Patient verbalizes understanding and is agreeable to treatment plan. Patient left in stable condition. Mar, Sore throat (ICD-10 - J02.9) [facility] Other Evaluation note 05-10-2022 Note Date & Type Note Facility 05-10-2022 Evaluation note Encounter Date Diagnosis Assessment Notes May, Contact with and (suspected) exposure to other viral communicable diseases (ICD-10 - Z20.828) May, Influenza A (ICD-10 - J10.1) Symptoms presented today are related to the Flu. May use OTC medications such as Mucinex DM, Flu meds, etc. Kids can use Dimatapp or Delsym. Continue tylenol/ibu for general discomfort. Encourage fluids. Antibiotics will not treat the flu. Symptoms should improve within the next 4-7 days. May, Bronchitis (ICD-10 - J40) Take medications as directed. Rest and increase fluid intake. Take meds with food to prevent stomach upset. Use inhaler as needed for coughing spells and SOB. It is better to use inhaler a few times a day over the next 2-3 days. Follow up with primary care provider if symptoms do not improve with treatment plan, although it may take a few weeks for the cough to go away [facility] Other Clinical Note 03-07-2022 Note Date & Type Note Facility 03-07-2022 Note Indication: Abdomina l pain. Comparison: None Procedure: Axial images were made from the diaphragms through the symphysis pubis. No oral contrast was given prior to scanning. 100 mL Omnipaque 300 Intravenous contrast was given. Dose reduction techniques were achieved by using automated exposure control and/or adjustment of mA and/or kV according to patient size and/or use of iterative reconstruction technique. Findings: Liver/Biliary System: No liver masses. No intra or extrahepatic biliary dilatation. Status postcholecystectomy. Pancreas/Spleen: No pancreatic masses. Pancreatic duct is not dilated. No evidence of pancreatitis. No splenomegaly or splenic masses. Kidneys/Adrenals: Normal symmetrical nephrograms. No renal masses. No renal stones or hydronephrosis. No adrenal nodules. Aorta/Vessels: No evidence of aortic aneurysm. Patent IVC, renal veins, hepatic veins and portal venous system. Bowel/Fluid/Nodes: No bowel dilatation. No bowel wall thickening. Colonic diverticulosis with no evidence of diverticulitis. Appendix was not identified. No signs of appendicitis. No ascites or fluid collections. No adenopathy. Lung bases: Clear. Other findings: No aggressive osseous lesions are seen. Pelvis: No pelvic masses or adenopathy. No free fluid seen in the pelvis. Bladder, uterus and adnexa grossly unremarkable. Other Findings: No aggressive osseous lesions are seen. Impression: . 1. No evidence of acute abdominal or pelvic process. 2. Colonic diverticulosis with no evidence of diverticulitis. Electronically authenticated by: SURJIT FREITAS Date: 2022-03-07 20:49 [facility] Clinical Note 03-19-2020 Note Date & Type Note Facility 03-19-2020 Note [facility] Staff This visit was conducted via phone communications from my office due to the restrictions of the COVID-19 pandemic. No physical exam was conducted due to audio only communication with the patient located at [address] [place] [phone], with no one else. If it is determined that the patient should be evaluated in person, the patient will be directed to the appropriate clinic or venue. The patient or their guardian verbally consented to this visit. Phone time was 15 minutes discussing health issues with counseling and coordination of care. Subjective Interval History/HPI Patient presents today for follow up via telehealth phone from [facility]. Patient started Latuda 20 mg last evening with dinner, good tolerability. Patient slept through the night last night. Patient has been having mood fluctuation over the last 4 weeks, mixed symptoms today of persistent depressive symptoms with sadness, crying spells, feeling helpless at times and symptoms of vielka including racing thoughts, bursts of energy, increased goal oriented behavior, interrupted sleep, fluctuation of appetite. Anxious distress occurs with mood fluctuation historically, having uncontrolled worry about life events and uncontrollable situations. Started new job and was having anxiety symptoms at work. No morbid thoughts or suicidal thoughts occurring. Tried propranolol for anxiety symptoms, 10 mg caused patient to sleep 12 hours. Discontinued. Hydroxyzine causes fatigue. Buspirone not helpful. Is currently using alprazolam 0.25 to 0.5 mg 1-2 times daily with good relief of anxiety symptoms. Feels supported by spouse. Would like to continue with Latuda and reassess. Denies suicidal or homicidal ideation or plan. No morbid thoughts. Interpersonal issues discussed. Support provided. Insight oriented/ Behavior modifying/ Supportive therapy Review of Systems ROS - Provider Constitutional: no fever, no chills, no sweats, no weakness. Skin: no Jaundice, no rash, no lesions, no petechiae. Gastrointestinal: no nausea, no vomiting, no diarrhea, no GI bleeding. Musculoskeletal: no muscle pain Neurologic: no headache, no dizziness, no numbness, no weakness. Mental Status Exam Appearance.: Other: Appropriate in conversation, cooperative Behavior/Motor Activity: Agitation Gait/Station: Within normal limits BH Speech: Rapid Mood.: Anxious Affect: Labile Thought Process/Associations: Racing Thought Content.: Non-psychotic Cognition/Attention/Memory/Concentratio n: Alert and oriented x4, Memory - recent/remote judged adequate by interview, Other: attentive Insight.: Fair Judgement: Good BH Language: Within normal limits Fund of Knowledge: Adequate AIMS AIMS Muscles of Facial Expression : None AIMS Lips and Perioral Area : None AIMS Jaw Area Involuntary Movements : None AIMS Tongue Involuntary Movements : None AIMS Upper Arms, Wrists, Hands, Fingers : None AIMS Lower Legs, Knees, Ankles, Toes : None AIMS Overall Abnormal Movement Severity : None AIMS Incapacitation Abnormal Movement : None AIMS Self Awareness of Abnormal Movement : No awareness AIMS Current Teeth, Denture Problems : No AIMS Movements Disappear in Sleep : No Risk Assessment low risk for suicide today Diagnosis/Assessment/Treatment Plan 1. Bipolar 1 disorder (F31.32: Bipolar disorder, current episode depressed, moderate) Cont current treatment Tolerating meds well, compliant Call for problems OARRS reviewed Acute anxiety (F41.9: Anxiety disorder, unspecified) Ordered: alprazolam, 0.5 mg = 1 tab(s), Oral, TID, PRN for anxiety, # 30 tab(s), Refills(s) 2, Pharmacy: [facility]/pharmacy #[id number], 161, cm, 12/23/19 10:18:00 EDT, Height/Length Dosing, 82, kg, 12/23/19 10:18:00 EDT, Weight Dosing Orders: lurasidone, 20 mg = 1 tab(s), Oral, Daily, with 350 calories; begin this dose first then progress to next dose of 40mg, X 1 week(s), # 7 tab(s), Refills(s) 0, Pharmacy: [facility]/pharmacy #[id number], 161, cm, 12/23/19 10:18:00 EDT, Height/Length Dosing, 82, kg, 12/23/19 10:... lurasidone, 40 mg = 1 tab(s), Oral, Daily, with 350 calories, # 30 tab(s), Refills(s) 1, Pharmacy: [facility]/pharmacy #[id number], 161, cm, 12/23/19 10:18:00 EDT, Height/Length Dosing, 82, kg, 12/23/19 10:18:00 EDT, Weight Dosing General Treatment Plan Maintain medication regimen _Improve mood stability _Improve anxiety control _Improve social and interpersonal functioning Clinical Global Impression 60 Prognosis progressing Follow-up With When Contact Information Carlota RODRIGUEZ CNP Abhilash In 4 weeks Additional Instructions: Problem List/Past Medical History Ongoing Bipolar 1 disorder Fatigue BOB (generalized anxiety disorder) Hidr (more content not included)... [facility] Comment on above: Result Comment: Elec tronically Signed By: JENNIFER BRADENCarlota Abhilash\.br\Date and Time Signed: 03/19/20 14:27 EST Clinical Note 03-05-2020 Note Date & Type Note Facility 03-05-2020 Note HPI Staff This visit was conducted via two-way, real-time interactive video communications from my office using [employer] due to the restrictions of the COVID-19 pandemic. No physical exam was conducted other than those areas of the body visible to telecommunications with the patient located at [address] [place] [address], with no one else in attendance. If it is determined that the patient should be evaluated in the clinic, the patient will be directed to the appropriate clinic or venue. The patient or their guardian verbally consented to this visit. Video time was 15 minutes with the patient face to face greater than 50% in addition to counseling and coordination of care. This is a one month medication follow up. Subjective Interval History/HPI Patient presents today for follow up via telehealth videofrom homealone. Pt is doing well, taking meds daily, tolerating well. Mood has not been fluctuating. Energy and motivation stable, concentration intact without distractibility. Sleeping though the night, feels rested. Attending work as scheduled. Goal oriented behavior with good follow through. Depressive symptoms are not persistent, denies having sadness, anhedonia, isolating behaviors, or crying spells. Denies Euphoria. Pervasive irritability is controlled today. Anxiety not occurring. Tolerating meds well, compliant daily. Occasionally at bedtime has racing thoughts that can delay falling asleep. Denies suicidal or homicidal ideation or plan. No morbid thoughts. Interpersonal issues discussed. Support provided. Insight oriented/ Behavior modifying/ Supportive therapy Review of Systems ROS - Provider Constitutional: no fever, no chills, no sweats, no weakness. Skin: no Jaundice, no rash, no lesions, no petechiae. Gastrointestinal: no nausea, no vomiting, no diarrhea, no GI bleeding. Musculoskeletal: no muscle pain Neurologic: no headache, no dizziness, no numbness, no weakness. Mental Status Exam Appearance.: Appropriately dressed and groomed, Other: good eye contact cooperative Behavior/Motor Activity: Normal Gait/Station: Within normal limits Speech: Normal, Other: normal prosody Mood.: Good Affect: Mildly constricted Thought Process/Associations: Logical and goal directed Thought Content.: Non-psychotic Cognition/Attention/Memory/Concentratio n: Alert and oriented x4, Grossly intact attention, Memory - recent/remote judged adequate by interview Insight.: Good Judgement: Good Language: Within normal limits Fund of Knowledge: Adequate AIMS AIMS Muscles of Facial Expression : None AIMS Lips and Perioral Area : None AIMS Jaw Area Involuntary Movements : None AIMS Tongue Involuntary Movements : None AIMS Upper Arms, Wrists, Hands, Fingers : None AIMS Lower Legs, Knees, Ankles, Toes : None AIMS Overall Abnormal Movement Severity : None AIMS Incapacitation Abnormal Movement : None AIMS Self Awareness of Abnormal Movement : No awareness AIMS Current Teeth, Denture Problems : No AIMS Movements Disappear in Sleep : No Risk Assessment low Diagnosis/Assessment/Treatment Plan 1. Bipolar 1 disorder (F31.32: Bipolar disorder, current episode depressed, moderate) cont current treatment use hydroxyzine at bedtime for anxiety and racing thoughts. if no effective, call office, discussed prescribing low dose SGA med for sleep. questions answered satisfactorily, agreeable to treatment plan improved Ordered: TELEHEALTH Office Visit Level 3 Est 20173 General Treatment Plan Maintain medication regimen _Improve mood stability _Improve anxiety control _Improve social and interpersonal functioning Clinical Global Impression 65 Prognosis progressing Follow-up No qualifying data available Problem List/Past Medical History Ongoing Bipolar 1 disorder Fatigue BOB (generalized anxiety disorder) Hidradenitis suppurativa Major depression, recurrent Miscarriage Historical Tobacco use during Urinary tract infection in Procedure/Surgical History section (08/10/2009), section (02/26/2007), Appendectomy, Cholecystectomy. Medications Abilify 5 mg Tab, See Instructions, 5 refills alprazolam 0.5 mg Tab, 0.5 mg= 1 tab(s), Oral, TID, PRN, 1 refills cyclobenzaprine 10 mg Tab, 10 mg= 1 tab(s), Oral, TID, PRN, 1 refills hydrOXYzine hydrochloride 50 mg oral tablet, See Instructions, PRN, 5 refills lamotrigine 150 mg Tab, 150 mg= 1 tab(s), Oral, Daily, 5 refills Tri-Sprintec 35 mcg Tab, 1 tab(s), Oral, Daily, 4 refills Allergies Bactrim Social History Alcohol - Denies Alcohol Use, 10/05/2011 Employment/School Employed, 03/18/2019 Home/Environment Lani (more content not included)... [facility] Comment on above: Result Comment: Elec tronically Signed By: Carlota RODRIGUEZ CNP\.mati\Date and Time Signed: 03/05/20 13:32 EST Clinical Note 01-28-2020 Note Date & Type Note Facility 01-28-2020 Note HPI Staff This visit was conducted via two-way, real-time interactive video communications from my office using [employer] due to the restrictions of the COVID-19 pandemic. No physical exam was conducted other than those areas of the body visible to telecommunications with the patient located at [address] [place] [address], with no one else in attendance. If it is determined that the patient should be evaluated in the clinic, the patient will be directed to the appropriate clinic or venue. The patient or their guardian verbally consented to this visit. Video time was 15 minutes with the patient face to face greater than 50% in addition to counseling and coordination of care. Subjective Interval History/HPI Patient presents today for follow up via telehealth videofrom homealone. Pt has improved mood today, depressive symptoms have eased with occasional sadness, few crying spells, and denies feeling helpless, hopeless, or worthless. Feels supported by . Energy and motivation improved today. Anxiety stable. Pervasive irritability is mild No increased goal oriented behavior or purposeless behavior Sleeping 5 hours or more undisturbed Appetite improved continues to participate in psychotherapy Denies suicidal or homicidal ideation or plan. No morbid thoughts. Interpersonal issues discussed. Support provided. Insight oriented/ Behavior modifying/ Supportive therapy Review of Systems ROS - Provider Constitutional: no fever, no chills, no sweats, no weakness. Skin: no Jaundice, no rash, no lesions, no petechiae. Gastrointestinal: no nausea, no vomiting, no diarrhea, no GI bleeding. Musculoskeletal: no muscle pain Neurologic: no headache, no dizziness, no numbness, no weakness. Mental Status Exam Appearance.: Appropriately dressed and groomed, Other: good eye contact, cooperative, pleasant Behavior/Motor Activity: Normal Gait/Station: Within normal limits Speech: Normal, Other: normal prosody and tone Mood.: Fair Affect: Mildly constricted Thought Process/Associations: Logical and goal directed Thought Content.: Non-psychotic Cognition/Attention/Memory/Concentratio n: Alert and oriented x4, Grossly intact attention, Memory - recent/remote judged adequate by interview Insight.: Good Judgement: Good Language: Within normal limits Fund of Knowledge: Adequate AIMS AIMS Muscles of Facial Expression : None AIMS Lips and Perioral Area : None AIMS Jaw Area Involuntary Movements : None AIMS Tongue Involuntary Movements : None AIMS Upper Arms, Wrists, Hands, Fingers : None AIMS Lower Legs, Knees, Ankles, Toes : None AIMS Overall Abnormal Movement Severity : None AIMS Incapacitation Abnormal Movement : None AIMS Self Awareness of Abnormal Movement : No awareness AIMS Current Teeth, Denture Problems : No AIMS Movements Disappear in Sleep : No Risk Assessment low Diagnosis/Assessment/Treatment Plan 1. Bipolar 1 disorder (F31.32: Bipolar disorder, current episode depressed, moderate) pt desires to continue with abilify 5mg daily improving Orders: alprazolam, 0.5 mg = 1 tab(s), Oral, TID, PRN for anxiety, # 30 tab(s), Refills(s) 1, Pharmacy: [facility]/pharmacy #[id number], 161, cm, 12/23/19 10:18:00 EDT, Height/Length Dosing, 82, kg, 12/23/19 10:18:00 EDT, Weight Dosing alprazolam, 0.5 mg = 1 tab(s), Oral, TID, PRN for anxiety, # 30 tab(s), Refills(s) 1, [id number] 161, cm, 12/23/19 10:18:00 EDT, Height/Length Dosing, 82, kg, 12/23/19 10:18:00 EDT, Weight Dosing aripiprazole, See Instructions, 1.5 tab po qAM, # 30 tab(s), Refills(s) 2, [id number] 161, cm, 12/23/19 10:18:00 EDT, Height/Length Dosing, 82, kg, 12/23/19 10:18:00 EDT, Weight Dosing aripiprazole, See Instructions, 1 tab po qAM, # 30 tab(s), Refills(s) 5, [id number] 161, cm, 12/23/19 10:18:00 EDT, Height/Length Dosing, 82, kg, 12/23/19 10:18:00 EDT, Weight Dosing cyclobenzaprine, 10 mg = 1 tab(s), Oral, TID, PRN for spasm, # 30 tab(s), Refills(s) 1, [id number] 161, cm, 06/13/19 14:39:00 EST, Height/Length Measured, 82, kg, 06/13/19 14:39:00 EST, Weight Measured cyclobenzaprine, 10 mg = 1 tab(s), Oral, TID, PRN for spasm, # 30 tab(s), Refills(s) 1, Pharmacy: [facility] #[id number], 161, cm, 12/23/19 10:18:00 EDT, Height/Length Dosing, 82, kg, 12/23/19 10:18:00 EDT, Weight Dosing General Treatment Plan Maintain medication regimen _Improve mood stability _Improve anxiety control _Improve social and interpersonal functioning Clinical Global Impression 62 Prognosis progressing Follow-up With When Contact Information Carlota RODRIGUEZ CNP In 4 weeks Additional Instructions: (more content not included)... [facility] Comment on above: Result Comment: Elec tronically Signed By: Carlota RODRIGUEZ CNP\.br\Date and Time Signed: 01/27/20 22:35 EDT Clinical Note 01-13-2020 Note Date & Type Note Facility 01-13-2020 Note HPI Staff This visit was conducted via two-way, real-time interactive video communications from my office using [employer] due to the restrictions of the COVID-19 pandemic. No physical exam was conducted other than those areas of the body visible to telecommunications with the patient located at [address] [place] [phone], with no one else in attendance. If it is determined that the patient should be evaluated in the clinic, the patient will be directed to the appropriate clinic or venue. The patient or their guardian verbally consented to this visit. Video time was 15 minutes with the patient face to face greater than 50% in addition to counseling and coordination of care. This is a 2 week f/u. Subjective Interval History/HPI Patient presents today for follow up via telehealth videofrom homealone. Continues to improve mood, no fluctuation occurring, abilify 5mg has been well tolerated. Continues to have mild persistent anxiety with somatic complaints of feeling over alert, tingling, and mind goes blank. Sleeping well, 5 hours or more undisturbed Appetite stable Pervasive irritability is mild Engaging better with peers and family. Depressive symptoms have eased, melancholy persists, sadness and crying spells have reduced to every few days. Denies suicidal or homicidal ideation or plan. No morbid thoughts. Interpersonal issues discussed. Support provided. Insight oriented/ Behavior modifying/ Supportive therapy Review of Systems ROS - Provider Constitutional: no fever, no chills, no sweats, no weakness. Skin: no Jaundice, no rash, no lesions, no petechiae. Gastrointestinal: no nausea, no vomiting, no diarrhea, no GI bleeding. Musculoskeletal: no muscle pain Neurologic: no headache, no dizziness, no numbness, no weakness. Mental Status Exam Appearance.: Appropriately dressed and groomed, Other: good eye contact, cooperative, pleasant Behavior/Motor Activity: Normal Gait/Station: Within normal limits BH Speech: Normal, Other: normal prosody and tone Mood.: Fair Affect: Mildly constricted Thought Process/Associations: Logical and goal directed Thought Content.: Non-psychotic Cognition/Attention/Memory/Concentratio n: Alert and oriented x4, Grossly intact attention, Memory - recent/remote judged adequate by interview Insight.: Good Judgement: Good BH Language: Within normal limits Fund of Knowledge: Adequate AIMS AIMS Muscles of Facial Expression : None AIMS Lips and Perioral Area : None AIMS Jaw Area Involuntary Movements : None AIMS Tongue Involuntary Movements : None AIMS Upper Arms, Wrists, Hands, Fingers : None AIMS Lower Legs, Knees, Ankles, Toes : None AIMS Overall Abnormal Movement Severity : None AIMS Incapacitation Abnormal Movement : None AIMS Self Awareness of Abnormal Movement : No awareness AIMS Current Teeth, Denture Problems : No AIMS Movements Disappear in Sleep : No Risk Assessment low Diagnosis/Assessment/Treatment Plan 1. Bipolar 1 disorder (F31.32: Bipolar disorder, current episode depressed, moderate) continue to optimize treatment tolerating abilify well with improved mood Ordered: TELEHEALTH Office Visit Level 3 Est 33059 General Treatment Plan Maintain medication regimen _Improve mood stability _Improve anxiety control _Improve social and interpersonal functioning Clinical Global Impression 63 Prognosis progressing Follow-up With When Contact Information Carlota RODRIGUEZ CNP In 2 weeks Additional Instructions: Problem List/Past Medical History Ongoing Bipolar 1 disorder Fatigue BOB (generalized anxiety disorder) Hidradenitis suppurativa Major depression, recurrent Miscarriage Historical Tobacco use during Urinary tract infection in Procedure/Surgical History section (08/10/2009), section (02/26/2007), Appendectomy, Cholecystectomy. Medications Abilify 5 mg Tab, See Instructions, 2 refills alprazolam 0.5 mg Tab, 0.5 mg= 1 tab(s), Oral, TID, PRN, 1 refills cyclobenzaprine 10 mg Tab, 10 mg= 1 tab(s), Oral, TID, PRN, 1 refills hydrOXYzine hydrochloride 50 mg oral tablet, See Instructions, PRN, 5 refills lamotrigine 150 mg Tab, 150 mg= 1 tab(s), Oral, Daily, 5 refills Tri-Sprintec 35 mcg Tab, 1 tab(s), Oral, Daily, 4 refills Allergies Bactrim Social History Alcohol - Denies Alcohol Use, 10/05/2011 Employment/School Employed, 03/18/2019 Home/Environment Lives with Children, Spouse. Living situation: Home/Independent., 09/12/2018 Substance Abuse - Denies Substance Abuse, 10/05/2011 Tobacco Former smoker, quit more than 30 days ago Tobacco Use:. Never Smokeless Tob (more content not included)... [facility] Comment on above: Result Comment: Elec tronically Signed By: JENNIFER BRADEN, Carlota Hung\.mati\Date and Time Signed: 01/13/20 09:11 EDT Clinical Note 12-23-2019 Note Date & Type Note Facility 12-23-2019 Note HPI Staff This visit was conducted via two-way, real-time interactive video communications from my office using [employer] due to the restrictions of the COVID-19 pandemic. No physical exam was conducted other than those areas of the body visible to telecommunications with the patient located at [address] [place] [address], with no one else in attendance. If it is determined that the patient should be evaluated in the clinic, the patient will be directed to the appropriate clinic or venue. The patient or their guardian verbally consented to this visit. Video time was _ minutes with the patient face to face greater than 50% in addition to counseling and coordination of care. Subjective Interval History/HPI Patient presents today for follow up via telehealth videofrom homealone. Anxiety has been high, is short tempered, had been stable with lamictal until her daughter and recent event occurred. Pervasive irritability is mild. no dysphoric outbursts. Flexeril has been helpful with muscle tension, sleeps well at night and feels rested. Anxiety can be intolerable while at work with extreme sadness and reluctance to stay at work. Feels helpless and hopeless at times. Gets along with coworkers, , sexually active with spouse. Denies suicidal or homicidal ideation or plan. No morbid thoughts. Interpersonal issues discussed. Support provided. Insight oriented/ Behavior modifying/ Supportive therapy Review of Systems ROS - Provider Constitutional: no fever, no chills, no sweats, no weakness. Skin: no Jaundice, no rash, no lesions, no petechiae. Gastrointestinal: no nausea, no vomiting, no diarrhea, no GI bleeding. Musculoskeletal: no muscle pain Neurologic: no headache, no dizziness, no numbness, no weakness. Mental Status Exam Appearance.: Appropriately dressed and groomed, Other: good eye contact cooperative pleasant Behavior/Motor Activity: Normal Gait/Station: Within normal limits Speech: Normal, Other: normal prosody and tone Mood.: Fair, Anxious Affect: Mildly constricted Thought Process/Associations: Circumstantial Thought Content.: Non-psychotic Cognition/Attention/Memory/Concentratio n: Alert and oriented x4, Grossly intact attention, Memory - recent/remote judged adequate by interview Insight.: Good Judgement: Good Language: Within normal limits Fund of Knowledge: Adequate Risk Assessment low Diagnosis/Assessment/Treatment Plan 1. Bipolar 1 disorder (F31.32: Bipolar disorder, current episode depressed, moderate) cont lamictal and alprazolam d/c welbutrin reviewed past meds with patient, sammy lerma qAM. reviewed side effects of SGA meds including: Second generation antipsychotic medications can cause headache, drowsiness, agitation, dizziness, nausea, or extrapyramidal symptoms such as tremors, muscle spasms, slowness of movement or jerking of muscles. Orders: alprazolam, 0.5 mg = 1 tab(s), Oral, TID, PRN for anxiety, # 30 tab(s), Refills(s) 1, Pharmacy: [facility]/pharmacy #[id number], 161, cm, 12/23/19 10:18:00 EDT, Height/Length Dosing, 82, kg, 12/23/19 10:18:00 EDT, Weight Dosing alprazolam, 0.5 mg = 1 tab(s), Oral, TID, PRN for anxiety, # 30 tab(s), Refills(s) 1, Pharmacy: [facility]/pharmacy #[id number], 161, cm, 06/13/19 14:39:00 EST, Height/Length Measured, 82, kg, 06/13/19 14:39:00 EST, Weight Measured aripiprazole, See Instructions, 1 tab po qAM, # 30 tab(s), Refills(s) 0, Pharmacy: [facility]/pharmacy #[id number], 161, cm, 12/23/19 10:18:00 EDT, Height/Length Dosing, 82, kg, 12/23/19 10:18:00 EDT, Weight Dosing General Treatment Plan Maintain medication regimen _Improve mood stability _Improve anxiety control _Improve social and interpersonal functioning Clinical Global Impression 60 Prognosis progressing Follow-up With When Contact Information Carlota RODRIGUEZ CNP In 2 weeks Additional Instructions: Problem List/Past Medical History Ongoing Bipolar 1 disorder Fatigue BOB (generalized anxiety disorder) Hidradenitis suppurativa Major depression, recurrent Miscarriage Historical Tobacco use during Urinary tract infection in Procedure/Surgical History section (08/10/2009), section (02/26/2007), Appendectomy, Cholecystectomy. Medications Abilify 5 mg Tab, See Instructions alprazolam 0.5 mg Tab, 0.5 mg= 1 tab(s), Oral, TID, PRN, 1 refills cyclobenzaprine 10 mg Tab, 10 mg= 1 tab(s), Oral, TID, PRN, 1 refills hydrOXYzine hydrochloride 50 mg oral tablet, See Instructions, PRN, 5 refills lamotrigine 150 mg Tab, 150 mg= 1 tab(s), Oral, Daily, 5 refills Tri-Sprintec 35 mcg Tab, 1 tab(s), Oral, Daily, 4 refills Allergies Bactrim Social History (more content not included)... [facility] Comment on above: Result Comment: Elec tronically Signed By: Carlota RODRIGUEZ CNP\.br\Date and Time Signed: 12/23/19 16:37 EDT Clinical Note 12-02-2019 Note Date & Type Note Facility 12-02-2019 Note HPI Staff This visit was conducted via two-way, real-time interactive video communications from my office using [employer] due to the restrictions of the COVID-19 pandemic. No physical exam was conducted other than those areas of the body visible to telecommunications with the patient located at [address] [place] [address], with no one else in attendance. If it is determined that the patient should be evaluated in the clinic, the patient will be directed to the appropriate clinic or venue. The patient or their guardian verbally consented to this visit. Video time was 15 minutes with the patient face to face greater than 50% in addition to counseling and coordination of care. Subjective Interval History/HPI Patient presents today for follow up via telehealth video from home alone. Mood is down, irritable daily with family and peers, feels angry daily. Having increased purposeless activity such over cleaning, overorganizing, wants the house smelling like bleach, has to mop and sweep daily and has a floor robot sweeper. Overthinking about her daughter's ; feels overwhelmed daily. Clenching her jaw, muscle tension in her face and neck, shoulders. Feels depressed, reluctant to leave her home, sad, appetite is fluctuating, anhedonia, feels helpless, hopeless. Sleeps well, 6 hours or more undisturbed. No risky behavior, meaningful relationships intact. Denies suicidal or homicidal ideation or plan. No morbid thoughts. Interpersonal issues discussed. Support provided. Insight oriented/ Behavior modifying/ Supportive therapy Review of Systems ROS - Provider Constitutional: no fever, no chills, no sweats, no weakness. Skin: no Jaundice, no rash, no lesions, no petechiae. Gastrointestinal: no nausea, no vomiting, no diarrhea, no GI bleeding. Musculoskeletal: no muscle pain Neurologic: no headache, no dizziness, no numbness, no weakness. Mental Status Exam Appearance.: Appropriately dressed and groomed, Other: good eye contact, cooperative, pleasant Behavior/Motor Activity: Normal Gait/Station: Within normal limits Speech: Normal, Other: normal prosody and tone Mood.: Down Affect: Mildly constricted Thought Process/Associations: Circumstantial Thought Content.: Non-psychotic Cognition/Attention/Memory/Concentratio n: Alert and oriented x4, Grossly intact attention, Memory - recent/remote judged adequate by interview Insight.: Good Judgement: Good BH Language: Within normal limits Fund of Knowledge: Adequate Risk Assessment low Diagnosis/Assessment/Treatment Plan 1. Bipolar 1 disorder (F31.32: Bipolar disorder, current episode depressed, moderate) Pt reports had been doing well with lamictal and wellbutrin until recently, was covid positive and was acutely ill for several days. cont lamictal increase wellbutrin to 150mg alprazolam prn for anxiety cyclobenzaprine for jaw clenching and muscle aches. cont with psychotherapy reviewed crisis plan Orders: buPROPion, 150 mg = 1 tab(s), Oral, q24hr, # 30 tab(s), Refills(s) 2, Pharmacy: [facility]/pharmacy #[id number], 161, cm, 06/13/19 14:39:00 EST, Height/Length Measured, 82, kg, 06/13/19 14:39:00 EST, Weight Measured cyclobenzaprine, 10 mg = 1 tab(s), Oral, TID, PRN for spasm, # 30 tab(s), Refills(s) 1, Pharmacy: [facility]/pharmacy #[id number], 161, cm, 06/13/19 14:39:00 EST, Height/Length Measured, 82, kg, 06/13/19 14:39:00 EST, Weight Measured General Treatment Plan Maintain medication regimen _Improve mood stability _Improve anxiety control _Improve social and interpersonal functioning Clinical Global Impression 60 Prognosis progressing Follow-up With When Contact Information Carlota RODRIGUEZ CNP In 3 weeks Additional Instructions: Problem List/Past Medical History Ongoing Bipolar 1 disorder Fatigue BOB (generalized anxiety disorder) Hidradenitis suppurativa Major depression, recurrent Miscarriage Historical Tobacco use during Urinary tract infection in Procedure/Surgical History section (08/10/2009), section (02/26/2007), Appendectomy, Cholecystectomy. Medications alprazolam 0.5 mg Tab, 0.5 mg= 1 tab(s), Oral, TID, PRN, 1 refills buPROPion 150 mg/24 hours ER Tab, 150 mg= 1 tab(s), Oral, q24hr, 2 refills cyclobenzaprine 10 mg Tab, 10 mg= 1 tab(s), Oral, TID, PRN, 1 refills hydrOXYzine hydrochloride 50 mg oral tablet, See Instructions, PRN, 5 refills lamotrigine 150 mg Tab, 150 mg= 1 tab(s), Oral, Daily, 5 refills Tri-Sprintec 35 mcg Tab, 1 tab(s), Oral, Daily, 4 refills Allergies Bactrim Social History Alcohol - Denies Alcohol Use, 10/05/2011 Employment/School Employed, 03/18/2019 Home/Environment (more content not included)... [facility] Comment on above: Result Comment: Elec tronically Signed By: Carlota RODRIGUEZ CNP\.mati\Date and Time Signed: 12/02/19 16:38 EDT History general Narrative - Reported Note Date & Type Note Facility History general Narrative - Reported Type Medical History Bipolar Surgical History appendectomy Surgical History x 3 Hospitalization History see above surgical histo ry [facility] Other Advance Directives Advance Directive Response Recorded Date/ Time Advance Directives No June 9:31pm Chief Complaint and Reason for Visit Chief Complaint allergic reaction Assessments No Assessments Information Available Discharge Instructions Additional Instructions Follow up with your doctor as discussed. If you need to use an Epi-Pen, then you need to come to the hospital right away. This is not sufficient treatment on its own. You may need to be seen by an pearl peller if you have other events like this without definite egg exposure. Summary Purpose Family History No Family History Records FoundNo Family History Records Found Additional Source Comments INFORMATION SOURCE (unrecogn ized section and content) DATE CREATED AUTHOR 10/30/2020 [facility] DATE CREATED AUTHOR AUTHOR'S CESAR ATION 04/29/2022 [facility] REASON FOR VISIT (unrecogniz ed section and content) COUGH, CONGESTIONUPPER RESPI TORY, CONGESTON, SORE THROAT, BAD COUGH FOR RECORDS PERTAINING TO PATIENTS WHO ARE OR HAVE BEEN ENROLLED IN A CHEMICAL DEPENDENCY/SUBSTANCEABUSE PROGRAM, SOME INFORMATION MAY BE OMITTED. This clinical summary was aggregated from multiple sources. Caution should be exercised in using it in the provision of clinical care. This summary normalizes information from multiple sources, and as a consequence, information in this document may materially change the coding, format and clinical context of patient data. In addition, data may be omitted in some cases. CLINICAL DECISIONS SHOULD BE BASED ON THE PRIMARY CLINICAL RECORDS. [facility]. provides no warranty or guarantee of the accuracy or completeness of information in this document.
== END 2023-07-18 21:00 | disposition home or self-care (01) ==
LOC: SLEEP 20:59
PROVIDERS: PCP Nurse Practitioner Family; Visit Provider Nurse Practitioner Family
DX: G47.33 Obstructive sleep apnea (adult) (pediatric) (principal)
CPT/HCPCS: 95811

== ENCOUNTER 2023-10-26 12:30 | Outpatient (OUT) | payer BC, SELFPAY ==
--- OUTSIDE RECORDS SUMMARY | 2023-10-26 12:44 | XMS_ITS | CCD ---
Author Organization [facility] InformPending sale to [facility] Care Team Providers Care Food And Nutrition Professor Name Role Phone Kimberlyn Xie Primary Care Provider Unavail able KIMBERLYN XIE Primary Care Unavailable LEONARDO, DR HECK Admitting Unavailable LEONARDO, DR HECK Attending Unavailable LEONARDO, DR HECK Consulting Unavailable PACO LONGORIA Consulting Unavailable ROCIO CHAU Consulting Unavailable KIMBERLYN XIE Primary Care Unavailable EMA KEATING Admitting Unavailable EMA KEATING Attending Unavailable SURJIT FREITAS Consulting Unavailable KOLBY MAYEN Consulting Unavailable SERGIO, DR SHERIFF Admitting Unavailable SERGIO, DR SHERIFF Attending Unavailable KIMBERLYN XIE Primary Care Unavailable Kaylah Han Unavailable Sanaz Lockwood Unavailable Unavailable Unavailable Unavailable Allergies Allergy Classification Reported Allergen(s) Allergy Type Date of Onset Reaction(s) Facility (2 sources) egg extract Drug Allergy 08-18-19 24 Vomiting [facility] (2 sources) Sulfamethoxazole Drug Allergy 08-18-19 24 Unknown Reaction, Unknown Reaction, [facility] (2 sources) Trimethoprim Drug Allergy 08-18-19 24 Unknown Reaction, Unknown Reaction, [facility] (2 sources) Fish Containing Products Propensity to adverse reactions 08-18-19 24 Difficulty Breathing [facility] (1 source) Sulfamethoxazole / Trimethoprim Drug Allergy 02-04-[address] [facility] (2 sources) Sulfamethoxazole / Trimethoprim Drug Allergy [facility] [facility] Other Medications Current Medications Medication Drug Class(es) Dates Sig (Normalized) Sig (Original) [id number] 200 actuat albuterol 0.09 mg/actuat metered dose [...] needed Inhalation every 4 hrs May, Not-Taking/PRN ALPRAZolam 0.5 mg oral tablet (1 source) Benzodiazepine Start: 08-18-2023 take 0.5 mg by mouth once daily Alprazolam Active 0.5 MG PO Daily August 18, 2023 12:00am Control Pill (2 sources) Start: 06-29-2019 Control Pill Active June 29, 2019 9:40pm Start: 06-29-2019 End: 08-18-2023 Control Pill Discontin ued June 29, 2019 1:00am August 18, 2023 2:25pm brexpiprazole 2 mg oral tablet (1 source) Atypical Antipsychotic Start: 08-18-2023 take 1 tablet by mouth once daily Brexpiprazole (Rexulti) 2 mg tablet Active 2 MG PO Daily August 18, 2023 12:00am 24 hr buPROPion hydrochloride 150 mg extended release oral tablet (2 sources) Aminoketone Start: 06-29-2019 take 75 mg by mouth once daily Bupropion Hcl Active 75 MG Oral Daily June 29, 2019 9:40pm Start: 06-29-2019 End: 08-18-2023 take 2 tablets by mouth once daily Bupropion Hcl (Wellbutrin Xl) 150 mg Tablet Extended Release 24 Hr Discontinued 75 MG PO Daily June 29, 2019 1:00am August 18, 2023 2:26pm carBAMazepine 200 mg oral tablet (1 source) Mood Stabilizer Start: 08-18-2023 take 200 mg by mouth twice daily Carbamazepine Active 200 MG PO Twice daily August 18, 2023 12:00am dextromethorphan hydrobromide 15 mg / guaiFENesin 400 mg / pseudoephedrine hydrochloride 60 mg oral tablet (1 source) alpha-Adrenergic Agonist, Uncompetitive C-kofulb-K-asparta te Receptor Antagonist, Sigma-1 Agonist Start: 04-27-2023 take 4 tablets by mouth every twenty-four hours as needed Capmist DM 60-15-400 MG as needed Orally every 4-6 hours as needed, max 4 tablets in 24 hours for 5 days Mar, Active [id number] 0.3 ml EPINEPHrine 1 mg/ml auto-injector (2 sources) alpha-Adrenergic Agonist, beta-Adrenergic Agonist, Catecholamine Start: 06-29-2019 Epinephrine Active 0.3 MG Intramuscular Once 2 June 29, 2019 10:18pm inject into anterolateral area of thigh; repeat x1 in 5-15 minutes if necessary Start: 06-29-2019 Epinephrine (E pipen 2-Jose) 0.3 mg/0.3 mL auto-injector Active 0.3 MG IM Once 2 June 29, 2019 1:00am inject into anterolateral area of thigh; repeat x1 in 5-15 minutes if necessary famotidine 20 mg oral tablet (2 sources) Histamine-2 Receptor Antagonist Start: 06-29-2019 End: 08-18-2023 take 20 mg by mouth twice daily Famotidine Active 20 MG Oral Twice daily 6 3 June 29, 2019 10:18pm hydrOXYzine hydrochloride 25 mg oral tablet (4 sources) Antihistamine Start: 06-29-2019 take 25 mg by mouth every six hours Hydroxyzine Hcl Active 25 MG Oral Q6H 15 3 June 29, 2019 10:18pm hydrOXYzine HCl Active ketoconazole 20 mg/ml medicated shampoo (1 source) Azole Antifungal Start: 08-18-2023 Ketoconazole Active TOPICAL August 18, 2023 12:00am lamoTRIgine 200 mg oral tablet (5 sources) Mood Stabilizer, Anti-epileptic Agent Start: 08-18-2023 take 200 mg by mouth once daily Lamotrigine Active 200 MG PO Daily August 18, 2023 12:00am Start: 06-29-2019 End: 08-18-2023 take 100 mg by mouth once daily Lamotrigine Active 100 MG Oral Daily June 29, 2019 9:40pm LaMICtal Active loratadine 10 mg oral tablet (1 source) Start: 08-18-2023 take 10 mg by mouth once daily Loratadine Active 10 MG PO Daily August 18, 2023 12:00am lurasidone hydrochloride 40 mg oral tablet (3 sources) Atypical Antipsychotic Start: 08-18-2023 take 40 mg by mouth once daily Lurasidone Active 40 MG PO Daily August 18, 2023 12:00am Latuda Active omeprazole 40 mg delayed release oral capsule (1 source) Proton Pump Inhibitor Start: 08-18-2023 take 40 mg by mouth once daily Omeprazole Active 40 MG PO Daily August 18, 2023 12:00am ondansetron 8 mg oral tablet (3 sources) Serotonin-3 Receptor Antagonist Start: 08-18-2023 take 8 mg by mouth every eight hours Ondansetron Hcl Active 8 MG PO Q8H 21 7 August 18, 2023 12:00am Start: 05-10-2022 take 1 tablet by crystal th every eight hours as needed Zofran ODT 4 MG 1 tablet on the tongue and allow to dissolve Orally every 8 hrs as needed for 4 days May, Not-Taking/PRN predniSONE 20 mg oral tablet (3 sources) Start: 04-27-2023 take 1 tablet by mouth every twelve hours prednisone 20 MG 1 tablet Orally BID for 5 Mar, Active Start: 06-29-2019 End: 08-18-2023 take 60 mg by mouth once daily in the morning Prednisone Active 60 MG Oral Every morning 9 3 June 29, 2019 10:18pm administer with food or milk rimegepant 75 mg disintegrating oral tablet (2 sources) Start: 08-18-2023 take 1 tablet by mouth once daily Rimegepant (Nurtec Odt) 75 mg tablet,disintegrating Active 75 MG PO Daily August 18, 2023 12:00am Nurtec 75 MG 1 t ablet on the tongue and allow to dissolve Orally Active 24 hr venlafaxine 75 mg extended release oral capsule (1 source) Serotonin and Norepinephrine Reuptake Inhibitor Start: 08-18-2023 take 75 mg by mouth once daily Venlafaxine Active 75 MG PO Daily August 18, 2023 12:00am Completed/Discontinued Medications Medication Drug Class(es) Dates Sig (Normalized) Sig (Original) methylPREDNISolone 4 mg oral tablet (2 sources) Corticosteroid Start: 3 methylPREDNISolone 4 MG as directed Orally Once a day for 6 days May, Not-Taking/PRN oseltamivir 75 mg oral capsule (2 sources) Neuraminidase Inhibitor Start: 3 take 1 capsule by mouth every twelve hours Tamiflu 75 MG 1 capsule Orally Twice a day for 5 day(s) May, Not-Taking/PRN Problems Active Problems Problem Classification Problem Date Documented Da te Episodic/Chronic Abdominal pain (4 sources) Unspecified abdominal pain; 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: [UNSPECIFIED ABDOMINAL PAIN] Onset: 04-27-2022 Episodic Allergic reactions (2 sources) Food anaphylaxis; 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: [Anaphylactic reaction due to unspecified food, initial encounter] 04-12-2023 Episodic Chronic obstructive pulmonary disease and bronchiectasis (1 source) Bronchitis, not specified as acute or chronic Episodic Genitourinary symptoms and ill-defined conditions (1 source) Personal history of urinary (tract) infections; 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: [PERS HX URINARY TRACT INFECTIONS] Onset: 04-29-2022 Episodic Immunizations and screening for infectious disease (2 sources) Contact with and (suspected) exposure to other viral communicable diseases; 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: [Contact with or exposure to other viral diseases] Episodic Influenza (1 source) Influenza due to other identified influenza virus with other respiratory manifestations Episodic Mood disorders (2 sources) Major depressive disorder, single episode, unspecified; 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: [Bipolar disorder] Onset: 04-29-2022 08-18-2023 Chronic Nausea and vomiting (1 source) Nausea; 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: [NAUSEA] Onset: 03-09-2022 Episodic Other aftercare (1 source) Other usp (current) drug therapy; 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: [OTH SKILLED NURSING CURRENT DRUG THERAPY] Onset: 04-29-2022 Episodic Other gastrointestinal disorders (1 source) Diarrhea, unspecified; 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: [DIARRHEA UNSPECIFIED] Onset: 03-09-2022 Episodic Other nervous system disorders (1 source) H/O: migraine; 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: [Personal history of other diseases of the nervous system and sense organs] 08-18-2023 Episodic Other nutritional; endocrine; and metabolic disorders [...] Onset: 03-09-2022 Chronic Other upper respiratory infections (3 sources) Acute upper respiratory infection, unspecified; 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: [...] Test Name Value Interpretation Reference Range Facility No Panel InformationOrdered By: Sanaz Lockwood on 08-18-2023 Quick Strep (POC) [facility] COVID + FLU Quick Testingon 04-27-2023 SARS-CoV-2 (COVID-19) RNA J LUIS+probe Ql (Unsp spec) Negative [employer] [facility] [employer] Other COVID + FLU Quick Testing Negative [employer] Other Quick Strepon 04-27-2023 S. pyogenes Org specific cx Ql (Throat) Negative [employer] Other Quick Strep [employer] Other COVID/FLU/RSV RT-PCRon 05-10 SARS-CoV-2 (COVID-19) RNA J LUIS+probe Ql (Unsp spec) Negative [employer] Other COVID/FLU/RSV RT-PCR Positive [facility] Other COVID/FLU/RSV RT-PCR Negative [facility] [facility] Other CBC AUTO DIFFon 04-27-2022 BASO # 0.0 103/ul Normal 0.0-0.[address] [facility] Comment on above: Performed By: #### C BC #### [facility] [address] [address] [address] Dee Humphrey Basophils/100 WBC (Bld) 0.2 % Normal 0.2-2.0 [facility] Comment on above: Performed By: #### C BC #### [facility] [address] [address] [address] Dee Humphrey EO # 0.1 103/ul Normal 0.0-0.[address] [facility] Comment on above: Performed By: #### C BC #### [facility] [address] [address] [address] Dee Humphrey Eosinophils/100 WBC (Bld) 0.6 % Critically low 0.9-7.0 [facility] Comment on above: Performed By: #### C BC #### [facility] [address] [address] [address] Dee Humphrey Erythrocyte distribution width (RBC) [Ratio] 14.1 % Normal 11.0-15.0 [facility] Comment on above: Performed By: #### C BC #### [facility] [address] [place] [address] Dr. Dee Humphrey Hematocrit (Bld) [Volume fraction] 37.1 % Normal 36.0-48.0 [facility] Comment on above: Performed By: #### C BC #### [facility] [address] [place] [address] Dr. Dee Humphrey Hemoglobin (Bld) [Mass/Vol] 12.4 g/dL Normal 12.0-16.0 [facility] Comment on above: Performed By: #### C BC #### [facility] [address] [address] [address] Dee Humphrey IG # 0.06 10e3/ul Critically high 0.00-0.03 [facility] Comment on above: Performed By: #### C BC #### [facility] [address] [address] [address] Dee Humphrey IG % 0.5 % Normal 0.0-0.5 [facility] Comment on above: Performed By: #### C BC #### [facility] [address] [place] [address] Dr. Dee Humphrey LYMPH # 3.7 103/ul Normal 1.2-3.[address] [facility] Comment on above: Performed By: #### C BC #### [facility] [address] [place] [address] Dr. Dee Humphrey Lymphocytes/100 WBC (Bld) 28.7 % Normal 20.5-60.0 [facility] Comment on above: Performed By: #### C BC #### [facility] [address] [place] [address] Dr. Dee Humphrey MANUAL DIFF REQ NO Normal [facility] Comment on above: Performed By: #### C BC #### [facility] [address] [place] [address] Dr. Dee Humphrey MCH (RBC) [Entitic mass] 30.2 pg Normal 26.7-34.0 [facility] Comment on above: Performed By: #### C BC #### [facility] [address] [place] [address] Dr. Dee Humphrey MCHC (RBC) [Mass/Vol] 33.4 g/dL Normal 29.9-35.[address] [facility] Comment on above: Performed By: #### C BC #### [facility] [address] [place] [address] Dr. Dee Humphrey MCV (RBC) [Entitic vol] 90.5 fL Normal 81.0-99.[address] [facility] Comment on above: Performed By: #### C BC #### [facility] [address] [place] [address] Dr. Dee Humphrey MONO # 0.7 103/ul Normal 0.3-0.[address] [facility] Comment on above: Performed By: #### C BC #### [facility] [address] [place] [address] Dr. Dee Humphrey Monocytes/100 WBC (Bld) 5.0 % Normal 1.7-12.[address] [facility] Comment on above: Performed By: #### C BC #### [facility] [address] [place] [address] Dr. Dee Humphrey NEUT # 8.5 103/ul Critically high 1.4-6.5 [facility] Comment on above: Performed By: #### C BC #### [facility] [address] [address] [address] Dee Humphrey Neutrophils/100 WBC (Bld) 65.0 % Normal 43.0-75.0 [facility] Comment on above: Performed By: #### C BC #### [facility] [address] [place] [address] Dr. Dee Humphrey Platelet mean volume (Bld) [Entitic vol] 9.6 fL Normal 9.5-13.[address] [facility] Comment on above: Performed By: #### C BC #### [facility] [address] [place] [address] Dr. Dee Humphrey PLT 317 103/ul Normal 150-[address] [facility] Comment on above: Performed By: #### C BC #### [facility] [address] [place] [address] Dr. Dee Humphrey RBC 4.10 106/ul Critically low 4.20-5.40 [facility] Comment on above: Performed By: #### C BC #### [facility] [address] [place] [address] Dr. Dee Humphrey WBC 13.1 103/ul Critically high 4.0-11.0 [facility] Comment on above: Performed By: #### C BC #### [facility] [address] [place] [address] ABD/PELVIS WO CONon [...] within normal limits. VASCULATURE: Vascularity is unremarkable. PERITONEUM/RETROPERIT ONEUM: Peritoneum/retroperit oneum is unremarkable. LYMPH NODES: No suspicious lymphadenopathy. [...] ROCIO CHAU Date: 2022-04-27 20:[address] [facility] ER URINE PROFILEon 2 Bilirubin Ql (U) Negative Normal NEGATIVE [facility] Comment on above: Performed By: #### P REGU, ERUR #### [facility] [address] [place] [address] Dr. Dee Humphrey Clarity (U) CLEAR Normal CLEAR [facility] Comment on above: Performed By: #### P REGU, ERUR #### [facility] [address] [place] [address] Dr. Dee Humphrey Color (U) YELLOW Normal YELLOW [facility] Comment on above: Performed By: #### P REGU, ERUR #### [facility] [address] [place] [address] Dr. Dee ASHRAFD A micrscopic examination will be performed if indicated. Normal [facility] Comment on above: Performed By: #### P REGU, ERUR #### [facility] [address] [place] [address] Dr. Dee Humphrey Glucose Ql (U) Negative Normal NEGATIVE [facility] Comment on above: Performed By: #### P REGU, ERUR #### [facility] [address] [place] [address] Dr. Dee Humphrey Hemoglobin Ql (U) Negative Normal NEGATIVE [facility] Comment on above: Performed By: #### P REGU, ERUR #### [facility] [address] [place] [address] Dr. Dee Humphrey Ketones Ql (U) Negative Normal NEGATIVE [facility] Comment on above: Performed By: #### P REGU, ERUR #### [facility] [address] [place] [address] Dr. Dee Humphrey LEUKOCYTES Negative Normal NEGATIVE [facility] Comment on above: Performed By: #### P REGU, ERUR #### [facility] [address] [address] [address] Dee Humphrey Nitrite Ql (U) Negative Normal NEGATIVE [facility] Comment on above: Performed By: #### P REGU, ERUR #### [facility] [address] [place] [address] Dr. Dee Humphrey pH (U) 5.5 [pH] Normal 5-9 [facility] Comment on above: Performed By: #### P REGU, ERUR #### [facility] [address] [place] [address] Dr. Dee Humphrey SPEC GRAVITY >=1.030 Abnormal 1.005-<=1.[address] [place] [address] Comment on above: Performed By: #### P REGU, ERUR #### [facility] [address] [place] [address] Dr. Dee Humphrey UA PROTEIN Negative Normal NEGATIVE/ TRACE [facility] Comment on above: Performed By: #### P REGU, ERUR #### [facility] [address] [place] [address] Dr. Dee Humphrey UR MICRO IND NOT INDICATED Normal [facility] Comment on above: Performed By: #### P REGU, ERUR #### [facility] [address] [place] [address] Dr. Dee Humphrey Urobilinogen Qn (U) 0.2 {Blanca'U}/dL Normal 0.2 - 1. 0 [facility] Comment on above: Performed By: #### P REGU, ERUR #### [facility] [address] [place] [address] Dr. Dee Humphrey LIPASEon 04-27-2022 Lipase [Catalytic activity/Vol] 94.0 U/L Normal 73.0-393.0 [facility] Comment on above: Performed By: #### L IPA, CMP #### [facility] [address] [place] [address] Dr. Dee Humphrey URon 04-27-2022 , QUAL Negative Normal NEGATIVE [facility] Comment on above: Performed By: #### P REGU, ERUR #### [facility] [address] [place] [address] Dr. Dee Humphrey PROF 14(COMP METB)on 022 Albumin [Mass/Vol] 3.9 g/dL Normal 3.4-5.0 [facility] Comment on above: Performed By: #### L IPA, CMP #### [facility] [address] [place] [address] Dr. Dee Humphrey Albumin/Globulin [Mass ratio] 1.0 {ratio} Normal [facility] Comment on above: Performed By: #### L IPA, CMP #### [facility] [address] [place] [address] Dr. Dee Humphrey ALP [Catalytic activity/Vol] 87 U/L Normal 46-116 [facility] Comment on above: Performed By: #### L IPA, CMP #### [facility] [address] [place] [address] Dr. Dee Humphrey ALT [Catalytic activity/Vol] 31 U/L Normal 14-59 [facility] Comment on above: Performed By: #### L IPA, CMP #### [facility] [address] [place] [address] Dr. Dee Humphrey Anion gap [Moles/Vol] 10.8 mmol/L Normal [facility] Comment on above: Performed By: #### L IPA, CMP #### [facility] [address] [place] [address] Dr. Dee Humphrey AST [Catalytic activity/Vol] 17 U/L Normal 15-37 [facility] Comment on above: Performed By: #### L IPA, CMP #### [facility] [address] [address] [address] Dee Humphrey Bilirubin [Mass/Vol] 0.1 mg/dL Critically low 0.2-1.0 [facility] Comment on above: Performed By: #### L IPA, CMP #### [facility] [address] [place] [address] Dr. Dee Humphrey Calcium [Mass/Vol] 8.9 mg/dL Normal 8.5-10.1 [facility] Comment on above: Performed By: #### L IPA, CMP #### [facility] [address] [place] [address] Dr. Dee Humphrey Chloride [Moles/Vol] 103 mmol/L Normal 98-107 [facility] Comment on above: Performed By: #### L IPA, CMP #### [facility] [address] [place] [address] Dr. Dee Humphrey CO2 [Moles/Vol] 26.9 mmol/L Normal 21.0-32.0 [facility] Comment on above: Performed By: #### L IPA, CMP #### [facility] [address] [place] [address] Dr. Dee Humphrey Creatinine [Mass/Vol] 0.80 mg/dL Normal 0.55-1.02 [facility] Comment on above: Performed By: #### L IPA, CMP #### [facility] [address] [place] [address] Dr. Dee Humphrey EGFR-AF ANDORRAN >60 Normal >=60 [facility] Comment on above: Performed By: #### L IPA, CMP #### [facility] [address] [place] [address] Dr. Dee Humphrey EGFR-NON AF ANDORRAN >60 Normal >=60 [facility] Comment on above: Performed By: #### L IPA, CMP #### [facility] [address] [place] [address] Dr. Dee Humphrey Globulin (S) [Mass/Vol] 3.9 g/dL Normal [facility] Comment on above: Performed By: #### L IPA, CMP #### [facility] [address] [place] [address] Dr. Dee Humphrey Glucose [Mass/Vol] 96 mg/dL Normal 74-106 [facility] Comment on above: Performed By: #### L IPA, CMP #### [facility] [address] [place] [address] Dr. Dee Humphrey Potassium [Moles/Vol] 3.7 mmol/L Normal 3.5-5.1 [facility] Comment on above: Performed By: #### L IPA, CMP #### [facility] [address] [place] [address] Dr. Dee Humphrey Protein [Mass/Vol] 7.8 g/dL Normal 6.4-8.2 [facility] Comment on above: Performed By: #### L IPA, CMP #### [facility] [address] [place] [address] Dr. Dee Humphrey Sodium [Moles/Vol] 137 mmol/L Normal 136-145 [facility] Comment on above: Performed By: #### L IPA, CMP #### [facility] [address] [place] [address] Dr. Dee Humphrey Urea nitrogen [Mass/Vol] 13.0 mg/dL Normal 7.0-18.0 [facility] Comment on above: Performed By: #### L IPA, CMP #### [facility] [address] [place] [address] Dr. Dee Humphrey Urea nitrogen/Creatinine [Mass ratio] 16.2 mg/mg Normal [facility] Comment on above: Performed By: #### L IPA, CMP #### [facility] [address] [place] [address] Dr. Dee Humphrey CBC AUTO DIFFon 03-07-2022 BASO # 0.0 103/ul Normal 0.0-0.[address] [facility] Comment on above: Performed By: #### C BC #### [facility] [address] [place] [address] Dr. Dee Humphrey Basophils/100 WBC (Bld) 0.3 % Normal 0.2-2.0 [facility] Comment on above: Performed By: #### C BC #### [facility] [address] [address] [address] Dee Humphrey EO # 0.1 103/ul Normal 0.0-0.7 [facility] Comment on above: Performed By: #### C BC #### [facility] [address] [place] [address] Dr. Dee Humphrey Eosinophils/100 WBC (Bld) 0.7 % Critically low 0.9-7.0 [facility] Comment on above: Performed By: #### C BC #### [facility] [address] [place] [address] Dr. Dee Humphrey Erythrocyte distribution width (RBC) [Ratio] 13.0 % Normal 11.0-15.0 [facility] Comment on above: Performed By: #### C BC #### [facility] [address] [place] [address] Dr. Dee Humphrey Hematocrit (Bld) [Volume fraction] 39.2 % Normal 36.0-48.0 [facility] Comment on above: Performed By: #### C BC #### [facility] [address] [place] [address] Dr. Dee Humphrey Hemoglobin (Bld) [Mass/Vol] 13.2 g/dL Normal 12.0-16.0 [facility] Comment on above: Performed By: #### C BC #### [facility] [address] [place] [address] Dr. Dee Humphrey IG # 0.05 10e3/ul Critically high 0.00-0.03 [facility] Comment on above: Performed By: #### C BC #### [facility] [address] [place] [address] Dr. Dee Humphrey IG % 0.5 % Normal 0.0-0.[address] [facility] Comment on above: Performed By: #### C BC #### [facility] [address] [place] [address] Dr. Dee Humphrey LYMPH # 4.2 103/ul Critically high 1.2-3.8 [facility] Comment on above: Performed By: #### C BC #### [facility] [address] [place] [address] Dr. Dee Humphrey Lymphocytes/100 WBC (Bld) 43.1 % Normal 20.5-60.[address] [facility] Comment on above: Performed By: #### C BC #### [facility] [address] [place] [address] Dr. Dee Humphrey MANUAL DIFF REQ NO Normal [facility] Comment on above: Performed By: #### C BC #### [facility] [address] [place] [address] Dr. Dee Humphrey MCH (RBC) [Entitic mass] 30.5 pg Normal 26.7-34.[address] [facility] Comment on above: Performed By: #### C BC #### [facility] [address] [place] [address] Dr. Dee Humphrey MCHC (RBC) [Mass/Vol] 33.7 g/dL Normal 29.9-35.[address] [facility] Comment on above: Performed By: #### C BC #### [facility] [address] [place] [address] Dr. Dee Humphrey MCV (RBC) [Entitic vol] 90.5 fL Normal 81.0-99.[address] [facility] Comment on above: Performed By: #### C BC #### [facility] [address] [place] [address] Dr. Dee Humphrey MONO # 0.4 103/ul Normal 0.3-0.[address] [facility] Comment on above: Performed By: #### C BC #### [facility] [address] [place] [address] Dr. Dee Humphrey Monocytes/100 WBC (Bld) 4.4 % Normal 1.7-12.[address] [facility] Comment on above: Performed By: #### C BC #### [facility] [address] [place] [address] Dr. Dee Humphrey NEUT # 4.9 103/ul Normal 1.4-6.[address] [facility] Comment on above: Performed By: #### C BC #### [facility] [address] [place] [address] Dr. Dee Humphrey Neutrophils/100 WBC (Bld) 51.0 % Normal 43.0-75.0 [facility] Comment on above: Performed By: #### C BC #### [facility] [address] [place] [address] Dr. Dee Humphrey Platelet mean volume (Bld) [Entitic vol] 9.6 fL Normal 9.5-13.5 [facility] Comment on above: Performed By: #### C BC #### [facility] [address] [place] [address] Dr. eDe Humphrey PLT 364 103/ul Normal 150-450 [facility] Comment on above: Performed By: #### C BC #### [facility] [address] [place] [address] Dr. Dee Humphrey RBC 4.33 106/ul Normal 4.20-5.40 [facility] Comment on above: Performed By: #### C BC #### [facility] [address] [place] [address] Dr. Dee Humphrey WBC 9.7 103/ul Normal 4.0-11.0 [facility] Comment on above: Performed By: #### C BC #### [facility] [address] [place] [address] Dr. Dee Humphrey LACTATE/LACTIC ACIDon 2021 Lactate [Moles/Vol] 1.1 mmol/L Normal 0.4-1.9 [facility] Comment on above: Performed By: #### P REGMame ERUR #### [facility] [address] [place] [address] Dr. Dee Humphrey LIPASEon 03-07-2022 Lipase [Catalytic activity/Vol] 79.0 U/L Normal 73.0-393.0 [facility] Comment on above: Performed By: #### C MP, LIPA #### [facility] [address] [place] [address] Dr. Dee Humphrey PROF 14(COMP METB)on 022 Albumin [Mass/Vol] 3.8 g/dL Normal 3.4-5.0 [facility] Comment on above: Performed By: #### C MP, LIPA #### [facility] [address] [address] [address] Dee Humphrey Albumin/Globulin [Mass ratio] 0.9 {ratio} Normal [facility] Comment on above: Performed By: #### C MP, LIPA #### [facility] [address] [address] [address] Dee Humphrey ALP [Catalytic activity/Vol] 80 U/L Normal 46-116 [facility] Comment on above: Performed By: #### C MP, LIPA #### [facility] [address] [address] [address] Dee Humphrey ALT [Catalytic activity/Vol] 27 U/L Normal 14-59 [facility] Comment on above: Performed By: #### C MP, LIPA #### [facility] [address] [address] [address] Dee Humphrey Anion gap [Moles/Vol] 9.5 mmol/L Normal [facility] Comment on above: Performed By: #### C MP, LIPA #### [facility] [address] [address] [address] Dee Humphrey AST [Catalytic activity/Vol] 13 U/L Critically low 15-37 [facility] Comment on above: Performed By: #### C MP, LIPA #### [facility] [address] [address] [address] Dee Humphrey Bilirubin [Mass/Vol] 0.1 mg/dL Critically low 0.2-1.0 [facility] Comment on above: Performed By: #### C MP, LIPA #### [facility] [address] [address] [address] Dee Humphrey Calcium [Mass/Vol] 9.0 mg/dL Normal 8.5-10.1 [facility] Comment on above: Performed By: #### C MP, LIPA #### [facility] [address] [address] [address] Dee Humphrey Chloride [Moles/Vol] 103 mmol/L Normal 98-107 [facility] Comment on above: Performed By: #### C MP, LIPA #### [facility] [address] [address] [address] Dee Humphrey CO2 [Moles/Vol] 27.1 mmol/L Normal 21.0-32.0 [facility] Comment on above: Performed By: #### C MP, LIPA #### [facility] [address] [address] [address] Dee Humphrey Creatinine [Mass/Vol] 0.86 mg/dL Normal 0.55-1.[address] [facility] Comment on above: Performed By: #### C MP, LIPA #### [facility] [address] [address] [address] Dee Humphrey EGFR-AF ANDORRAN >60 Normal >=60 [facility] Comment on above: Performed By: #### C MP, LIPA #### [facility] [address] [address] [address] Dee Humphrey EGFR-NON AF ANDORRAN >60 Normal >=60 [facility] Comment on above: Performed By: #### C MP, LIPA #### [facility] [address] [address] [address] Dee Humphrey Globulin (S) [Mass/Vol] 4.1 g/dL Normal [facility] Comment on above: Performed By: #### C MP, LIPA #### [facility] [address] [address] [address] Dee Humphrey Glucose [Mass/Vol] 99 mg/dL Normal 74-106 [facility] Comment on above: Performed By: #### C MP, LIPA #### [facility] [address] [address] [address] Dee Humphrey Potassium [Moles/Vol] 3.6 mmol/L Normal 3.5-5.[address] [facility] Comment on above: Performed By: #### C MP, LIPA #### [facility] [address] [address] [address] Dee Humphrey Protein [Mass/Vol] 7.9 g/dL Normal 6.4-8.2 [facility] Comment on above: Performed By: #### C MP, LIPA #### [facility] [address] [address] [address] Dee Humphrey Sodium [Moles/Vol] 136 mmol/L Normal 136-145 [facility] Comment on above: Performed By: #### C MP, LIPA #### [facility] [address] [address] [address] Dee Humphrey Urea nitrogen [Mass/Vol] 12.0 mg/dL Normal 7.0-18.0 [facility] Comment on above: Performed By: #### C MP, LIPA #### [facility] [address] [address] [address] Dee Humphrey Urea nitrogen/Creatinine [Mass ratio] 14.0 mg/mg Normal [facility] Comment on above: Performed By: #### C MP, LIPA #### [facility] [address] [address] [address] Dee Humphrey Consent for COVID Vaccineon 08-09-2020 SARS-CoV-2 (COVID-19) RNA J LUIS+probe Ql (Unsp spec) [id number] .[id number]:127 Normal [facility] Consent for Treatmenton 07-30 Consent for Treatment [id number] .[id number]:127 Normal [facility] Coding Summary.on 08-07-2020 Coding Summary. CODING DATE: 08/07/2020 FINAL [facility] STATUS: PAYOR: Luzma APC DESCRIPTION 1492 [...] Yana Paredes Date Saved: 08/07/2020 02:46 pm Normal [facility] Ambulatory Clinical Summaryo n 03-25-2020 Ambulatory Clinical Summary {[id number] Normal [facility] Patient Educationon 03-19-20 20 Patient Education lurasidone (loo JOAO i done) Moon What is the most important information I [...] ? an antiviral such as ritonavir; ? [place]'s wort; or ? seizure medicine such as [...] irritable, agitate (more content not included)... Normal [facility] Video Visit - Telehealtho n 02-23-2020 Video Visit - Telehealth Start Time 3:00pm Stop Time 4:00pm Chief Complaint Bipolar 1 disorder BOB (generalized anxiety disorder Mood: Good Affect: Full, Congruent Thought Content: No hallucinations of any modality Cognitive Functioning: Alert and Oriented x4, Memory Intact Suicidality and Homicidality: Denied any suicidal or homicidal ideation, plan, intent Diagnosis/Assessment/ Treatment Plan 1. Bipolar 1 disorder (F31.32: Bipolar [...] interactive video communications from my office using [employer] due to the restrictions of the COVID-19 pandemic. No physical exam was conducted other than those areas of the body visible to telecommunications with the patient located at [address] [place] [address], with no one else in attendance. If [...] Stopped age (more content not included)... Normal [facility] Comment on above: Result Comment: Elec tronically Signed By: [facility]\Date and Time Signed: 02/22/20 23:17 EDT Video Visit - Telehealtho n 02-11-2020 Video Visit - Telehealth Start Time 3:00pm Stop Time 4:00pm Chief Complaint Bipolar 1 disorder Mental Status Exam Mood: Better Affect: Full, Congruent Thought Content: No hallucinations of any modality Cognitive Functioning: Alert and Oriented x4, Memory Intact Suicidality and Homicidality: Denied any suicidal or homicidal ideation, plan, intent Diagnosis/Assessment/ Treatment Plan 1. Bipolar 1 disorder (F31.32: Bipolar [...] interactive video communications from my office using [employer] due to the restrictions of the COVID-19 pandemic. No physical exam was conducted other than those areas of the body visible to telecommunications with the patient located at [address] [place] [address], with no one else in attendance. If [...] Sister. Depres (more content not included)... Normal [facility] Comment on above: Result Comment: Elec tronically Signed By: [facility]\.[facility]\Date and Time Signed: 02/11/20 14:46 EDT Video Visit - Telehealth Start Time 3:00pm Stop Time 4:00pm Chief Complaint Bipolar 1 disorder Mental Status Exam Mood: Sad Affect: Flat, Tearful, Congruent Thought Content: No hallucinations of any modality Cognitive Functioning: Alert and Oriented x4, Memory Intact Suicidality and Homicidality: Denied any suicidal or homicidal ideation, plan, intent Diagnosis/Assessment/ Treatment Plan 1. Bipolar 1 disorder (F31.32: Bipolar [...] interactive video communications from my office using [employer] due to the restrictions of the COVID-19 pandemic. No physical exam was conducted other than those areas of the body visible to telecommunications with the patient located at [address] [place], [place] [phone], with no one else in attendance. If [...] - Denies (more content not included)... Normal [facility] Comment on above: Result Comment: Elec tronically Signed By: Deepa [facility], Maia Ashley\.mati\Date and Time Signed: 02/11/20 14:37 EDT Video Visit - Telehealtho n 01-29-2020 Video Visit - Telehealth Start Time 3:00pm Stop Time 4:00pm Chief Complaint Bipolar 1 disorder Mental Status Exam Mood: Labile Affect: Full, Congruent Thought Content: No hallucinations of any modality Cognitive Functioning: Alert and Oriented x4, Memory Intact Suicidality and Homicidality: Denied any suicidal or homicidal ideation, plan, intent Diagnosis/Assessment/ Treatment Plan 1. Bipolar 1 disorder (F31.32: Bipolar [...] interactive video communications from my office using [employer] due to the restrictions of the COVID-19 pandemic. No physical exam was conducted other than those areas of the body visible to telecommunications with the patient located at [address] [place] [phone], with no one else in attendance. If [...] Tobacco F (more content not included)... Normal [facility] Comment on above: Result Comment: Elec tronically Signed By: Deepa [facility], Maia Montero.mati\Date and Time Signed: 01/29/20 21:44 EDT Video Visit - Telehealth Start Time 3:00pm Stop Time 4:00pm Chief Complaint Bipolar 1 disorder Mental Status Exam Mood: Stable Affect: Full, Congruent Thought Content: No hallucinations of any modality Cognitive Functioning: Alert and Oriented x4, Memory Intact Suicidality and Homicidality: Denied any suicidal or homicidal ideation, plan, intent Diagnosis/Assessment/ Treatment Plan 1. Bipolar 1 disorder (F31.32: Bipolar [...] interactive video communications from my office using [employer] due to the restrictions of the COVID-19 pandemic. No physical exam was conducted other than those areas of the body visible to telecommunications with the patient located at [address] [place] [phone], with no one else in attendance. If [...] No. Yes, (more content not included)... Normal [facility] Comment on above: Result Comment: Elec tronically Signed By: Deepa [facility], Maia Ashley\.mati\Date and Time Signed: 01/29/20 21:38 EDT Patient Educationon 01-28-20 20 Patient Education aripiprazole (AR i PIP ra zole) Say Lerm[employer] What is the most important information I [...] include drow (more content not included)... Normal [facility] Video Visit - Telehealtho n 01-13-2020 Video Visit - Telehealth Start Time 3:00pm Stop Time 3:45pm Chief Complaint Bipolar 1 disorder Mental Status Exam Mood: Stable Affect: Full, Tearful, Congruent Thought Content: No hallucinations of any modality Cognitive Functioning: Alert and Oriented x4, Memory Intact Suicidality and Homicidality: Denied any suicidal or homicidal ideation, plan, intent Diagnosis/Assessment/ Treatment Plan 1. Bipolar 1 disorder (F31.32: Bipolar [...] interactive video communications from my office using [employer] due to the restrictions of the COVID-19 pandemic. No physical exam was conducted other than those areas of the body visible to telecommunications with the patient located at [address] [place] [phone], with no one else in attendance. If [...] Tobacco For (more content not included)... Normal [facility] Comment on above: Result Comment: Elec tronically Signed By: Deepa [facility], Maia Montero.mati\Date and Time Signed: 01/13/20 09:40 EDT Patient Educationon 01-13-20 Patient Education aripiprazole (KEMAR welsh) Say Lerma [...] include drow (more content not included)... Normal [facility] Video Visit - Telehealtho n 01-07-2020 Video Visit - Telehealth Start Time 4:00pm Stop Time 4:53pm Chief Complaint Bipolar 1 disorder Grief Mental Status Exam Mood: Sad Affect: Flat, Congruent Thought Content: No hallucinations of any modality Cognitive Functioning: Alert and Oriented x4, Memory Intact Suicidality and Homicidality: Denied any suicidal or homicidal ideation, plan, intent Diagnosis/Assessment/ Treatment Plan 1. Bipolar 1 disorder (F31.32: Bipolar [...] interactive video communications from my office using [employer] due to the restrictions of the COVID-19 pandemic. No physical exam was conducted other than those areas of the body visible to telecommunications with the patient located at [address] [place], [place] [phone], with no one else in attendance. If [...] Use:. N (more content not included)... Normal [facility] Comment on above: Result Comment: Elec tronically Signed By: Deepa [facility], Maia Montero.mati\Date and Time Signed: 01/07/20 12:38 EDT Video Visit - Telehealtho n 12-30-2019 Video Visit - Telehealth Start Time 3:00pm Stop Time 4:00pm Chief Complaint Bipolar 1 disorder Mental Status Exam Mood: Sad, Angry Affect: Full, Congruent Thought Content: No hallucinations of any modality Cognitive Functioning: Alert and Oriented x4, Memory Intact Suicidality and Homicidality: Denied any suicidal or homicidal ideation, plan, intent Diagnosis/Assessment/ Treatment Plan 1. Bipolar 1 disorder (F31.32: Bipolar [...] interactive video communications from my office using [employer] due to the restrictions of the COVID-19 pandemic. No physical exam was conducted other than those areas of the body visible to telecommunications with the patient located at [address] [place] [address], with no one else in attendance. If [...] Father and (more content not included)... Normal [facility] Comment on above: Result Comment: Elec tronically Signed By: Deep[facility]\Date and Time Signed: 12/30/19 13:50 EDT Video Visit - Telehealtho n 12-23-2019 Video Visit - Telehealth Start Time 3:00pm Stop Time 4:00pm Chief Complaint Bipolar 1 disorder Mental Status Exam Mood: Down, Anxious Affect: Flat, Congruent Thought Content: No hallucinations of any modality Cognitive Functioning: Alert and Oriented x4, Memory Intact Suicidality and Homicidality: Denied any suicidal or homicidal ideation, plan, intent Diagnosis/Assessment/ Treatment Plan 1. Bipolar 1 disorder (F31.32: Bipolar [...] interactive video communications from my office using [employer] due to the restrictions of the COVID-19 pandemic. No physical exam was conducted other than those areas of the body visible to telecommunications with the patient located at [address] [place], [place] [phone], with no one else in attendance. If [...] Alcohol U (more content not included)... Normal [facility] Comment on above: Result Comment: Elec tronically Signed By: Deepa [facility], Maia Ashley\.mati\Date and Time Signed: 12/23/19 16:54 EDT Patient Educationon 12-23-19 Patient Education aripiprazole (AR i PIP ra welsh) Say Lerma Discmarco What is the most important information I [...] include drow (more content not included)... Normal [facility] Video Visit - Telehealtho n 12-04-2019 Video Visit - Telehealth Start Time 4:00pm Stop Time 5:00pm Chief Complaint Bipolar Disorder Grief Mental Status Exam Mood: Sad Affect: Flat, Congruent Thought Content: No hallucinations of any modality Cognitive Functioning: Alert and Oriented x4, Memory Intact Suicidality and Homicidality: Denied any suicidal or homicidal ideation, plan, intent Diagnosis/Assessment/ Treatment Plan 1. Bipolar 1 disorder (F31.32: Bipolar [...] interactive video communications from my office using [employer] due to the restrictions of the COVID-19 pandemic. No physical exam was conducted other than those areas of the body visible to telecommunications with the patient located at [address] [place] [phone], with no one else in attendance. If [...] Daily, 5 (more content not included)... Normal [facility] Comment on above: Result Comment: Elec tronically Signed By: Deepa [facility] Valle.mati\Date and Time Signed: 12/04/19 09:42 EDT Patient Educationon 12-02-19 20 Patient Education bupropion (byoo PRO pee on) [...] rate, h (more content not included)... Normal [facility] Vital Signs Date Time Vital Sign Value Performing Clinician Facility 08-18-2023 14:24-0400 Body height 160.02 cm [facility] 08-18-2023 14:24-0400 Body mass index (BMI) [Ratio] 40.2 kg/m2 [facility] 08-18-2023 14:24-0400 Body temperature 98.4 [degF] [facility] 08-18-2023 14:24-0400 Body weight 103.02 kg [facility] 08-18-2023 14:24-0400 Diastolic blood pressure 81 mm[Hg] [facility] 08-18-2023 14:24-0400 Heart rate 101 /min [facility] 08-18-2023 14:24-0400 Respiratory rate 16 /min [facility] 08-18-2023 14:24-0400 SaO2% (BldA) [Mass fraction] 98 % [facility] 08-18-2023 14:24-0400 Systolic blood pressure 133 mm[Hg] [facility] 04-27-2023 16:30-0500 Body height 160.02 cm Sanaz Lockwood Other [facility] [employer] Other 04-27-2023 16:30-0500 Body mass index (BMI) [Ratio] 40.92 kg/m2 Sanaz Lockwood Other [employer] [facility] [employer] Other 04-27-2023 16:30-0500 Body temperature 98.2 [degF] Sanaz Lockwood Other [employer] [facility] [employer] Other 04-27-2023 16:30-0500 Body weight 104.78 kg Sanza Lockwood Other [employer] [facility] [employer] Other 04-27-2023 16:30-0500 Respiratory rate 18 /min Sanaz Lockwood Other [employer] Other 04-27-2023 16:30-0500 SaO2% (BldA) [Mass fraction] 99 % Sanaz Lockwood Other [employer] Other 05-10-2022 14:45-0500 Body height 160.02 cm Kaylah Han Other [employer] Other 05-10-2022 14:45-0500 Body mass index (BMI) [Ratio] 38.97 kg/m2 Kaylah Lottault Other [employer] Other 05-10-2022 14:45-0500 Body temperature 99.3 [degF] Kaylah Lottault Other [employer] Other 05-10-2022 14:45-0500 Body weight 99.79 kg Kaylah Han Other [employer] Other 06-29-2019 22:40-0500 Pulse (Heart Rate) 84 /min [facility] 06-29-2019 22:40-0500 Pulse Oximetry 97 % [facility] 06-29-2019 22:35-0500 BP Diastolic 56 mm[Hg] [facility] 06-29-2019 22:35-0500 BP Systolic 100 mm[Hg] [facility] 06-29-2019 21:11-0500 BMI (Body Mass Index) 33.1 kg/m2 [facility] 06-29-2019 21:11-0500 Body Temperature 97.8 [degF] [facility] 06-29-2019 21:11-0500 Body weight 84.8 kg [facility] 06-29-2019 21:110500 Height 160.02 cm Kimberlyn Xie [facility] 06-29-2019 21:11-0500 Respiratory Rate 20 /min Kimberlyn Xie [facility] Encounters Encounter Date Encounter Type Care Provider Facility Start: 08-18-2023 End: 08-18-2023 ambulatory [facility] Work Phone: Start: 08-18-2023 End: 08-18-2023 Patient encounter procedure [facility] Work Phone: Start: 04-27-2023 End: 04-27-2023 ambulatory Sanaz Lockwood Other [employer] Other Start: 04-27-2023 Office outpatient visit 25 minutes Sanaz Lockwood [facility] Start: 05-10-2022 End: 05-10-2022 ambulatory Kaylah Han Other [employer] Other Start: 05-10-2022 Office outpatient ne w 20 minutes Kaylah Han [facility] Start: 04-27-2022 End: 04-27-2022 ambulatory KIMBERLYN XIE Facility:[facility] Start: 03-07-2022 End: 03-07-2022 ambulatory KIMBERLYN XIE Facility:[facility] Start: 09-23-[address] JAZIEL HILL Facility :[facility] Start: 06-29-2019 End: 06-29-2019 Emergency department patient visit Kimberlyn Xie [facility] Procedures Date Procedure Procedure Detail Performing Clinician Start: 08-18-2023 Quick Strep (POC) Plan of Treatment Date Care Activity Detail Author Patient Education Epinephrine (B y injection) Anaphylaxis (ED) General Allergic Reaction (ED) [facility] Patient referral [facility] Payers Date Payer Category Payer Unknown [id number] [id number] [id number] 1987 Unknown [id number] 1987 Unknown [id number] 1957 Self-pay [id number] 1957 Unknown [id number] Private Health Insurance [id number] Self-pay Self Pay [id number] Social History Date Type Detail Facility Start: 06-29-2019 End: 08-18-2023 Tobacco smoking status NHIS Smoker (finding) [facility] Start: 1985 Sex Assigned At Female F [facility] Sex Assigned At Sex Assigned At Bir th [facility] Other Goals Date Patient Goal Desired Activity /State Clinical Notes 12-02-2019 to 04-27-2023 Note Date & Type Note Facility [...] condition. Mar, Sore throat (ICD-10 - J02.9) [facility] Other 01-10-2023 Evaluation note* Encounter Date Diagnosis Assessment Notes Treatment Notes Treatment Clinical Notes May, Contact with and (suspected) exposure [...] weeks for the cough to go away [employer] Other 11-07-2022 NoteIndication: Abdominal pain. Comparison: None Procedure: Axial images were [...] Electronically authenticated by: SURJIT FREITAS Date: 2022-03-07 20:49[facility]11[facility]19[facility]2020 NoteHPI Staff This visit was conducted via phone communications from my office due to the restrictions of the COVID-19 pandemic. No physical exam was conducted due to audio only communication with the patient located at [address] [place] [phone], with no one else. If it is determined that the patientshould be evaluated in person, the patient will be directed to the appropriate clinic or venue. Thepatient or their guardian verbally consented to this visit. Phone time was 15 minutes discussing health issues with counseling and coordination of care. Subjective Interval History/HPI Patient presents today for follow up via telehealth phone from [facility]. Patient started Latuda 20mg last evening with dinner, good tolerability. Patient slept through the night last night. Patienthas been having mood fluctuation over the last [...] petechiae. Gastrointestinal: no nausea, no vomiting, no diarrhea,no GI bleeding. Musculoskeletal: no muscle pain Neurologic: no headache, no dizziness, no numbness, no weakness. Mental Status Exam Appearance.: Other: Appropriate in conversation, cooperative Behavior/Motor Activity: Agitation Gait/Station: Within normal limits Speech: Rapid Mood.: Anxious Affect: Labile Thought Process/Associations: Racing Thought Content.: Non-psychotic Cognition/Attention/Memory/Concentration: Alert and oriented x4, Memory - recent/remote [...] anxiety, # 30 tab(s), Refills(s) 2, Pharmacy: [facility]/pharmacy #[id number], 161, cm, 12/23/19 10:18:00 EDT, Height/Length Dosing, 82, kg, 12/23/19 10:18:00 EDT, Weight Dosing Orders: lurasidone, 20 mg = 1 tab(s), Oral, Daily, with 350 calories; begin this dose first then progress to next dose of 40mg, X 1 week(s), # 7 tab(s), Refills(s) 0, Pharmacy: [facility]/pharmacy #[id number], 161, cm, 12/23/19 10:18:00 EDT, Height/Length Dosing, 82, kg, 08/24/20 10:... lurasidone, 40 mg = 1 tab(s), Oral, Daily, with 350 calories, # 30 tab(s), Refills(s) 1, Pharmacy: [facility]/pharmacy #[id number], 161, cm, 12/23/19 10:18:00 EDT, Height/Length Dosing, 82, kg, 12/23/19 10:18:00 EDT, Weight Dosing General Treatment Plan Maintain medication regimen _Improve mood stability _Improve anxiety control _Improve social and interpersonal functioning Clinical Global Impression 60 Prognosis progressing Follow-up With When Contact Information Carlota RODRIGUEZ CNP In 4 weeks Additional Instructions: Problem List/Past Medical History Ongoing Bipolar 1 disorder Fatigue BOB (generalized anxiety disorder) Hidr (more content not included)...[facility] HospitalComment on above: Result Comment: Electronically Signed By: Carlota RODRIGUEZ CNP\.br\Date and Time Signed: 03/19/20 14:27 [id number] NoteHPI Staff This visit was conducted via two-way, real-time interactive video communications from my office using [employer] due to the restrictions of the COVID-19 pandemic. No physical exam was conducted other than those areas of the body visible to telecommunications with the patient located at [address] [place] [address], with no one else in attendance. If it is determined that the patient should be evaluated in the clinic, the patient will be directed to the appropriate clinic or venue. The patient or their guardian verbally consented to this visit. Video time was 15 minutes with the patient face to face greater than 50% in addition to counselingand coordination of care. This is a one [...] follow through. Depressive symptoms are not persistent, denieshaving sadness, anhedonia, isolating behaviors, or crying spells. [...] petechiae. Gastrointestinal: no nausea, no vomiting, no diarrhea,no GI bleeding. Musculoskeletal: no muscle pain Neurologic: no headache, no dizziness, no numbness, no weakness. Mental Status Exam Appearance.: Appropriately dressed and groomed, Other: good eye contact cooperative Behavior/Motor Activity: Normal Gait/Station: Within normal limits Speech: Normal, Other: normal prosody Mood.: Good Affect: Mildly constricted Thought Process/Associations: Logical and goal directed Thought Content.: Non-psychotic Cognition/Attention/Memory/Concentration: Alert and oriented x4, Grossly intact attention, Memory -recent/remote judged adequate by interview Insight.: Good Judgement: [...] racing thoughts. if no effective, call office, discussedprescribing low dose SGA med for sleep. questions answered satisfactorily, agreeable to treatment plan improved Ordered: TELEHEALTH Office Visit Level 3 Est 79444 General Treatment Plan Maintain medication regimen _Improve [...] Employed, 03/18/2019 Home/Environment Lani (more content not included)...[facility] HospitalComment on above: Result Comment: Electronically Signed By: Carlota RODRIGUEZ CNP\harshil\Date and Time Signed: 03/05/20 13:32 [id number] NoteI Staff This visit was conducted via two-way, real-time interactive video communications from my office using [employer] due to the restrictions of the COVID-19 pandemic. No physical exam was conducted other than those areas of the body visible to telecommunications with the patient located at [address] [place] [phone], with no one else in attendance. If it is determined that the patient should be evaluated in the clinic, the patient will be directed to the appropriate clinic or venue. The patient or their guardian verbally consented to this visit. Video time was 15 minutes with the patient face to face greater than 50% in addition to counselingand coordination of care. Subjective Interval History/HPI Patient [...] petechiae. Gastrointestinal: no nausea, no vomiting, no diarrhea,no GI bleeding. Musculoskeletal: no muscle pain Neurologic: no headache, no dizziness, no numbness, no weakness. Mental Status Exam Appearance.: Appropriately dressed and groomed, Other: good eye contact, cooperative, pleasant Behavior/Motor Activity: Normal Gait/Station: Within normal limits Speech: Normal, Other: normal prosody and tone Mood.: Fair Affect: Mildly constricted Thought Process/Associations: Logical and goal directed Thought Content.: Non-psychotic Cognition/Attention/Memory/Concentration: Alert and oriented x4, Grossly intact attention, Memory -recent/remote judged adequate by interview Insight.: Good Judgement: [...] # 30 tab(s), Refills(s) 1, [id number], cm, 12/23/19 10:18:00 EDT, Height/Length Dosing, 82, kg, 12/23/19 10:18:00 EDT, Weight Dosing alprazolam, 0.5 mg = 1 tab(s), Oral, TID, PRN for anxiety, # 30 tab(s), Refills(s) 1, [id number] 161, cm, 12/23/19 10:18:00 EDT, Height/Length Dosing, 82, kg, 12/23/19 10:18:00 EDT, Weight Dosing aripiprazole, See Instructions, 1.5 tab po qAM, # 30 tab(s), Refills(s) 2, Pharmacy: [facility] #[id number], 161, cm, 12/23/19 10:18:00 EDT, Height/Length Dosing, 82, kg, 12/23/19 10:18:00 EDT, Weight Dosing aripiprazole, See Instructions, 1 tab po qAM, # 30 tab(s), Refills(s) 5, [id number] 161, cm, 12/23/19 10:18:00 EDT, Height/Length Dosing, 82, kg, 12/23/19 10:18:00 EDT, Weight Dosing cyclobenzaprine, 10 mg = 1 tab(s), Oral, TID, PRN for spasm, # 30 tab(s), Refills(s) 1, [id number] 161, cm, 06/13/19 14:39:00 EST, Height/Length Measured, 82, kg, 06/13/19 14:39:00EST, Weight Measured cyclobenzaprine, 10 mg = 1 tab(s), Oral, TID, PRN for spasm, # 30 tab(s), Refills(s) 1, [id number], 161, cm, 12/23/19 10:18:00 EDT, Height/Length Dosing, 82, kg, 12/23/19 10:18:00 EDT, Weight Dosing General Treatment Plan Maintain medication regimen _Improve mood stability _Improve anxiety control _Improve social and interpersonal functioning Clinical Global Impression 62 Prognosis progressing Follow-up With When Contact Information Carlota RODRIGUEZ CNP In 4 weeks Additional Instructions: (more content not included)...[facility] HospitalComment on above:Result Comment: Electronically Signed By: Carlota RODRIGUEZ CNP\.br\Date and Time Signed: 01/27/20 22:35 [id number] NoteHPI Staff This visit was conducted via two-way, real-time interactive video communications from my office using [employer] due to the restrictions of the COVID-19 pandemic. No physical exam was conducted other than those areas of the body visible to telecommunications with the patient located at [address] [place] [address], with no one else in attendance. If it is determined that the patient should be evaluated in the clinic, the patient will be directed to the appropriate clinic or venue. The patient or their guardian verbally consented to this visit. Video time was 15 minutes with the patient face to face greater than 50% in addition to counselingand coordination of care. This is a 2 week f/u. Subjective Interval History/HPI Patient presents today for follow up via telehealth videofrom homealone. Continues to improve mood,no fluctuation occurring, abilify 5mg has been well [...] petechiae. Gastrointestinal: no nausea, no vomiting, no diarrhea,no GI bleeding. Musculoskeletal: no muscle pain Neurologic: no headache, no dizziness, no numbness, no weakness. Mental Status Exam Appearance.: Appropriately dressed and groomed, Other: good eye contact, cooperative, pleasant Behavior/Motor Activity: Normal Gait/Station: Within normal limits Speech: Normal, Other: normal prosody and tone Mood.: Fair Affect: Mildly constricted Thought Process/Associations: Logical and goal directed Thought Content.: Non-psychotic Cognition/Attention/Memory/Concentration: Alert and oriented x4, Grossly intact attention, Memory -recent/remote judged adequate by interview Insight.: Good Judgement: [...] Ordered: TELEHEALTH Office Visit Level 3 Est 58475 General Treatment Plan Maintain medication regimen _Improve mood stability _Improve anxiety control _Improve social and interpersonal functioning Clinical Global Impression 63 Prognosis progressing Follow-up With When Contact Information JENNIFER BRADEN Carlota Abhilash In 2 weeks Additional Instructions: Problem List/Past [...] Use:. Never Smokeless Tob (more content not included)...[facility] HospitalComment on above:Result Comment: Electronically Signed By: Carlota RODRIGUEZ CNP\.mati\Date and Time Signed: 01/13/20 09:11 [id number] NoteHPI Staff This visit was conducted via two-way, real-time interactive video communications from my office using [employer] due to the restrictions of the COVID-19 pandemic. No physical exam was conducted other than those areas of the body visible to telecommunications with the patient located at [address] [place] [address], with no one else in attendance. If [...] sadness and reluctance to stay at work. Feelshelpless and hopeless at times. Gets along with [...] petechiae. Gastrointestinal: no nausea, no vomiting, no diarrhea,no GI bleeding. Musculoskeletal: no muscle pain Neurologic: no headache, no dizziness, no numbness, no weakness. Mental Status Exam Appearance.: Appropriately dressed and groomed, Other: good eye contact cooperative pleasant Behavior/Motor Activity: Normal Gait/Station: Within normal limits Speech: Normal, Other: normal prosody and tone Mood.: Fair, Anxious Affect: Mildly constricted Thought Process/Associations: Circumstantial Thought Content.: Non-psychotic Cognition/Attention/Memory/Concentration: Alert and oriented x4, Grossly intact attention, Memory -recent/remote judged adequate by interview Insight.: Good Judgement: [...] anxiety, # 30 tab(s), Refills(s) 1, Pharmacy: [facility]/pharmacy #[id number], 161, cm, 12/23/19 10:18:00 EDT, Height/Length Dosing, 82, kg, 12/23/19 10:18:00 EDT, Weight Dosing alprazolam, 0.5 mg = 1 tab(s), Oral, TID, PRN for anxiety, # 30 tab(s), Refills(s) 1, Pharmacy: [facility]/pharmacy #[id number], 161, cm, 06/13/19 14:39:00 EST, Height/Length [...] Allergies Bactrim Social History (more content not included)...[facility] HospitalComment on above:Result Comment: Electronically Signed By: Carlota RODRIGUEZ CNP\.br\Date and Time Signed: 12/23/19 16:37 [id number] NoteI Staff This visit was conducted via two-way, real-time interactive video communications from my office using [employer] due to the restrictions of the COVID-19 pandemic. No physical exam was conducted other than those areas of the body visible to telecommunications with the patient located at [address] [place] [address], with no one else in attendance. If it is determined that the patient should be evaluated in the clinic, the patient will be directed to the appropriate clinic or venue. The patient or their guardian verbally consented to this visit. Video time was 15 minutes with the patient face to face greater than 50% in addition to counselingand coordination of care. Subjective Interval History/HPI Patient [...] petechiae. Gastrointestinal: no nausea, no vomiting, no diarrhea,no GI bleeding. Musculoskeletal: no muscle pain Neurologic: no headache, no dizziness, no numbness, no weakness. Mental Status Exam Appearance.: Appropriately dressed and groomed, Other: good eye contact, cooperative, pleasant Behavior/Motor Activity: Normal Gait/Station: Within normal limits BH Speech: Normal, Other: normal prosody and tone Mood.: Down Affect: Mildly constricted Thought Process/Associations: Circumstantial Thought Content.: Non-psychotic Cognition/Attention/Memory/Concentration: Alert and oriented x4, Grossly intact attention, Memory -recent/remote judged adequate by interview Insight.: Good Judgement: [...] q24hr, # 30 tab(s), Refills(s) 2, Pharmacy: [facility]/pharmacy #[id number],161, cm, 06/13/19 14:39:00 EST, Height/Length Measured, 82, kg, 06/13/19 14:39:00 EST, Weight Measured cyclobenzaprine, 10 mg = 1 tab(s), Oral, TID, PRN for spasm, # 30 tab(s), Refills(s) 1, Pharmacy: [facility]/pharmacy #[id number], 161, cm, 06/13/19 14:39:00 EST, Height/Length Measured, 82, kg, 06/13/19 14:39:00EST, Weight Measured General Treatment Plan Maintain medication [...] Employment/School Employed, 03/18/2019 Home/Environment (more content not included)...[facility] HospitalComment on above:Result Comment: Electronically Signed By: Carlota RODRIGUEZ CNP\Date and Time Signed: 12/02/19 16:38 EDTChief complaint+Reason for visit Narrative* Chief Complaint Nausea, diarrhea, fe zhou Reason for Visit Contact with and (louis spected) exposure to covid-19 Sore throat [facility] Work Phone: Evaluation note* Diagnosis Onset Date Resolution Status Contact with and (suspected) exposure to covid-19 noneactive Sore throat noneactive [facility] Work Phone: History general Narrative - Reported* Type Description Date Medical History Bipolar Surgical History appendectomy Surgical History x 3 Hospitalization History see above surgical histo ry [facility] [employer] Other Advance Directives Advance Directive Response Recorded Date/ Time Advance Directives No June 9:31pm Advance Directive Response Recorded Date/ Time Advance Directives No June 10:31pm Chief Complaint and Reason for Visit Chief Complaint allergic reaction Assessments No Assessments Information Available Discharge Instructions Additional Instructions Follow up with your doctor as discussed. If you need to use an Epi-Pen, then you need to come to the hospital right away. This is not sufficient treatment on its own. You may need to be seen by an flyer maker if you have other events like this without definite egg exposure. Summary Purpose Family History Relationship Condition Age at Onset Recorded Date/T alo father Diabetes mellitus Unknown Hypertension Unknown Additional Source Comments INFORMATION SOURCE (unrecogn ized section and content) DATE CREATED AUTHOR 10/30/2020 [facility] DATE CREATED AUTHOR AUTHOR'S ORGANIZ ATION 04/29/2022 [facility] REASON FOR VISIT (unrecogniz ed section and content) COUGH, CONGESTIONUPPER RESPI TORY, CONGESTON, SORE THROAT, BAD COUGH Care Teams (unrecognized sec tion and content) Team Status: Active Member Role Status Dates JAQUAN Hilton Primary Care Provider Active Team Status: Inactive Member Role Status Dates JAQUAN Hilton Primary Care Provider Active Start: August 18, 2023 End: August 18, 2023 Sanaz Lockwood APRN Attending Provider Active Start: August 18, 2023 End: August 18, 2023 Goals (unrecognized section and content) Goals may be documented in a n alternate section FOR RECORDS PERTAINING TO PATIENTS WHO ARE [...] BE BASED ON THE PRIMARY CLINICAL RECORDS. [facility] [employer] provides no warranty or guarantee of the accuracy or completeness of information in this document.
[2023-10-26 14:01] LABS: HCG Quantitative 3357 mIU/mL
== END 2023-10-26 12:31 | disposition home or self-care (01) ==
PROVIDERS: PCP Nurse Practitioner Family; Visit Provider Nurse Practitioner Family
DX: N91.0 Primary amenorrhea (principal)
CPT/HCPCS: 36415; 84702

== ENCOUNTER 2023-11-24 09:32 | Outpatient (OUT) | payer BC, SELFPAY ==
--- NOTE | 2023-11-24 09:34 | US_ITS ---
[place] [id number] Patient Name: PROSPER RUIZ MRN: [id number] date: 1985 Sex: F Assigned Patient Location: [facility] Current Patient Location: [facility] Accession/Order Number: [id number] Exam Date: 11/24/2023 09:35 Report Date: 11/24/2023 11:27 At the request of: MAKENZIE SO Procedure: US OB transvaginal EXAMINATION: US OB transvaginal HISTORY: MISSED MENSES COMPARISON: No relevant comparison available. FINDINGS: GESTATIONAL SAC: Present and normal appearing. YOLK SAC: Present and normal appearing. POLE: Present and normal appearing. CARDIAC: Present. UTERUS: Normal size and appearance. OVARIES: Right: Not seen. Left: Not seen. CERVIX: 3.3 cm in length and closed. CUL-DE-SAC: Normal. OTHER: None. AGE BY LMP: 10 weeks 3 days LISA BY LMP: 06/18/2024 AGE BY US CRL: 9 weeks 3 days LISA BY US CRL: 06/25/2024 US/US OB transvaginal IMPRESSION: 1. Single live intrauterine . Electronically authenticated by: CYNDI SOLIS Date: 11/24/2023 11:27
--- OUTSIDE RECORDS SUMMARY | 2023-11-24 09:48 | XMS_ITS | CCD ---
Author Organization [facility] Care Team Providers Care Bookmaker Map Name Role Phone Kimberlyn Xie Primary Care [...] egg extract Drug Allergy 08-18-19 24 Vomiting [facility] (2 sources) Sulfamethoxazole Drug Allergy 08-18-19 24 Unknown Reaction, Unknown Reaction, [facility] (2 sources) Trimethoprim Drug Allergy 08-18-19 24 Unknown Reaction, Unknown Reaction, [facility] (2 sources) Fish Containing Products Propensity to adverse reactions 08-18-19 24 Difficulty Breathing [facility] (1 source) Sulfamethoxazole / Trimethoprim Drug Allergy 02-04-20 13 [facility] Repository (2 sources) Sulfamethoxazole / Trimethoprim Drug Allergy [employer] [place] [employer] Other Medications Current Medications Medication Drug Class(es) Dates Sig (Normalized) Sig (Original) [id number] 200 actuat albuterol 0.09 mg/actuat metered dose [...] oral tablet (1 source) alpha-Adrenergic Agonist, Uncompetitive E-sgfcjz-L-asparta te Receptor Antagonist, Sigma-1 Agonist Start: 04-27-2023 take 4 tablets by mouth every twenty-four hours as needed Capmist DM 60-15-400 MG as needed Orally every 4-6 hours as needed, max 4 tablets in 24 hours for 5 days Mar, Active [id number] 0.3 ml EPINEPHrine 1 mg/ml auto-injector (2 [...] 03-09-2022 Episodic Other aftercare (1 source) Other fci (current) drug therapy; 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: [OTH RESIDENTIAL CURRENT DRUG THERAPY] Onset: 04-29-2022 Episodic Other [...] Sanaz Lockwood on 08-18-2023 Quick Strep (POC) [facility] COVID + FLU Quick Testingon 04-27-2023 SARS-CoV-2 (COVID-19) RNA J LUIS+probe Ql (Unsp spec) Negative [facility] [employer] Other COVID + FLU Quick Testing Negative [facility] Other Quick Strepon 04-27-2023 S. pyogenes Org specific cx Ql (Throat) Negative [facility] Other Quick Strep [facility] Other COVID/FLU/RSV RT-PCRon 05-10 SARS-CoV-2 (COVID-19) RNA J LUIS+probe Ql (Unsp spec) Negative [facility] Other COVID/FLU/RSV RT-PCR Positive [facility] [employer] Other COVID/FLU/RSV RT-PCR Negative [employer] Other CBC AUTO DIFFon 04-27-2022 BASO # 0.0 103/ul Normal 0.0-0.1 [facility] Comment on above: Performed By: #### C BC #### [facility] Laboratory [address] [address] [address] Dee Humphrey Basophils/100 WBC (Bld) 0.2 % Normal 0.2-2.0 [facility] Comment on above: Performed By: #### C BC #### [facility] Laboratory [address] [address] [address] Dee Humphrey EO # 0.1 103/ul Normal 0.0-0.7 [facility] Comment on above: Performed By: #### C BC #### [facility] Laboratory [address] [address] [address] Dee Humphrey Eosinophils/100 WBC (Bld) 0.6 % Critically low 0.9-7.0 [facility] Comment on above: Performed By: #### C BC #### [facility] Laboratory [address] [address] [address] Dee Humphrey Erythrocyte distribution width (RBC) [Ratio] 14.1 % Normal 11.0-15.0 [facility] Comment on above: Performed By: #### C BC #### [facility] Laboratory [address] [place] [address] Dr. Dee Humphrey Hematocrit (Bld) [Volume fraction] 37.1 % Normal 36.0-48.0 [facility] Comment on above: Performed By: #### C BC #### [facility] Laboratory [address] [place] [address] Dr. Dee Humphrey Hemoglobin (Bld) [Mass/Vol] 12.4 g/dL Normal 12.0-16.0 [facility] Comment on above: Performed By: #### C BC #### [facility] Laboratory [address] [address] [address] Dee Humphrey IG # 0.06 10e3/ul Critically high 0.00-0.03 [facility] Comment on above: Performed By: #### C BC #### [facility] Laboratory [address] [address] [address] Dee Humphrey IG % 0.5 % Normal 0.0-0.5 [facility] Comment on above: Performed By: #### C BC #### [facility] Laboratory [address] [place] [address] Dr. Dee Humphrey LYMPH # 3.7 103/ul Normal 1.2-3.8 [facility] Comment on above: Performed By: #### C BC #### [facility] Laboratory [address] [place] [address] Dr. Dee Humphrey Lymphocytes/100 WBC (Bld) 28.7 % Normal 20.5-60.0 [facility] Comment on above: Performed By: #### C BC #### [facility] Laboratory [address] [place] [address] Dr. Dee Humphrey MANUAL DIFF REQ NO Normal [facility] Comment on above: Performed By: #### C BC #### [facility] Laboratory [address] [place] [address] Dr. Dee Humphrey MCH (RBC) [Entitic mass] 30.2 pg Normal 26.7-34.0 [facility] Comment on above: Performed By: #### C BC #### [facility] Laboratory [address] [place] [address] Dr. Dee Humphrey MCHC (RBC) [Mass/Vol] 33.4 g/dL Normal 29.9-35.2 [facility] Comment on above: Performed By: #### C BC #### [facility] Laboratory [address] [place] [address] Dr. Dee Humphrey MCV (RBC) [Entitic vol] 90.5 fL Normal 81.0-99.0 [facility] Comment on above: Performed By: #### C BC #### [facility] Laboratory [address] [place] [address] Dr. Dee Humphrey MONO # 0.7 103/ul Normal 0.3-0.8 [facility] Comment on above: Performed By: #### C BC #### [facility] Laboratory [address] [place] [address] Dr. Dee Humphrey Monocytes/100 WBC (Bld) 5.0 % Normal 1.7-12.0 [facility] Comment on above: Performed By: #### C BC #### [facility] Laboratory [address] [place] [address] Dr. Dee Humphrey NEUT # 8.5 103/ul Critically high 1.4-6.5 [facility] Comment on above: Performed By: #### C BC #### [facility] Laboratory [address] [address] [address] Dee Humphrey Neutrophils/100 WBC (Bld) 65.0 % Normal 43.0-75.0 [facility] Comment on above: Performed By: #### C BC #### [facility] Laboratory [address] [place] [address] Dr. Dee Humphrey Platelet mean volume (Bld) [Entitic vol] 9.6 fL Normal 9.5-13.5 [facility] Comment on above: Performed By: #### C BC #### [facility] Laboratory [address] [place] [address] Dr. Dee Humphrey PLT 317 103/ul Normal 150-450 [facility] Comment on above: Performed By: #### C BC #### [facility] Laboratory [address] [place] [address] Dr. Dee Humphrey RBC 4.10 106/ul Critically low 4.20-5.40 [facility] Comment on above: Performed By: #### C BC #### [facility] Laboratory [address] [place] [address] Dr. Dee Humphrey WBC 13.1 103/ul Critically high 4.0-11.0 [facility] Comment on above: Performed By: #### C BC #### [facility] Laboratory [address] [place] [address] ABD/PELVIS WO CONon [...] ROCIO CHAU Date: 2022-04-27 20:24 Normal [facility] ER URINE PROFILEon 2 Bilirubin Ql (U) Negative Normal NEGATIVE [facility] Comment on above: Performed By: #### P REGU, ERUR #### [facility] Laboratory [address] [place] [address] Dr. Dee Humphrey Clarity (U) CLEAR Normal CLEAR [facility] Comment on above: Performed By: #### P REGU, ERUR #### [facility] [address] [place] [address] Dr. Dee Humphrey Color (U) YELLOW Normal YELLOW [facility] Comment on above: Performed By: #### P REGU, ERUR #### [facility] Laboratory [address] [place] [address] Dr. Dee ASHRAFD A micrscopic examination will be performed if indicated. Normal [facility] Comment on above: Performed By: #### P REGU, ERUR #### [facility] Laboratory [address] [place] [address] Dr. Dee Humphrey Glucose Ql (U) Negative Normal NEGATIVE [facility] Comment on above: Performed By: #### P REGU, ERUR #### [facility] Laboratory [address] [place] [address] Dr. Dee Humphrey Hemoglobin Ql (U) Negative Normal NEGATIVE [facility] Comment on above: Performed By: #### P REGU, ERUR #### [facility] [address] [place] [address] Dr. Dee Humphrey Ketones Ql (U) Negative Normal NEGATIVE [facility] Comment on above: Performed By: #### P REGU, ERUR #### [facility] [address] [place] [address] Dr. Dee Humphrey LEUKOCYTES Negative Normal NEGATIVE [facility] Comment on above: Performed By: #### P REGU, ERUR #### [facility] [address] [address] [address] Dee Humphrey Nitrite Ql (U) Negative Normal NEGATIVE [facility] Comment on above: Performed By: #### P REGU, ERUR #### [facility] [address] [place] [address] Dr. Dee Humphrey pH (U) 5.5 [pH] Normal 5-9 [facility] Comment on above: Performed By: #### P REGU, ERUR #### [facility] [address] [place] [address] Dr. Dee Humphrey SPEC GRAVITY >=1.030 Abnormal 1.005-<=1.[address] [place] [address] Comment on above: Performed By: #### P REGU, ERUR #### [facility] [address] [place] [address] Dr. Dee Humphrey UA PROTEIN Negative Normal NEGATIVE/ TRACE [facility] Comment on above: Performed By: #### P REGU, ERUR #### [facility] [address] [place] [address] Dr. Dee Humphrey UR MICRO IND NOT INDICATED Normal [facility] Comment on above: Performed By: #### P REGU, ERUR #### [facility] [address] [place] [address] Dr. Dee Humphrey Urobilinogen Qn (U) 0.2 {Blanca'U}/dL Normal 0.2 - 1. 0 [facility] Comment on above: Performed By: #### P REGU, ERUR #### [facility] [address] [place] [address] Dr. Dee Humphrey LIPASEon 04-27-2022 Lipase [Catalytic activity/Vol] 94.0 U/L Normal 73.0-393.0 [facility] Comment on above: Performed By: #### L IPA, CMP #### [facility] [address] [place] [address] Dr. Dee Humphrey URon 04-27-2022 , QUAL Negative Normal NEGATIVE [facility] Comment on above: Performed By: #### P REGU, ERUR #### [facility] [address] [place] [address] Dr. Dee Humphrey PROF 14(COMP METB)on 022 Albumin [Mass/Vol] 3.9 g/dL Normal 3.4-5.0 [facility] Comment on above: Performed By: #### L IPA, CMP #### [facility] [address] [place] [address] Dr. Dee Humphrey Albumin/Globulin [Mass ratio] 1.0 {ratio} Normal [facility] Comment on above: Performed By: #### L IPA, CMP #### [facility] [address] [place] [address] Dr. Dee Humphrey ALP [Catalytic activity/Vol] 87 U/L Normal 46-116 [facility] Comment on above: Performed By: #### L IPA, CMP #### [facility] [address] [place] [address] Dr. Dee Humphrey ALT [Catalytic activity/Vol] 31 U/L Normal 14-59 [facility] Comment on above: Performed By: #### L IPA, CMP #### [facility] [address] [place] [address] Dr. Dee Humphrey Anion gap [Moles/Vol] 10.8 mmol/L Normal [facility] Comment on above: Performed By: #### L IPA, CMP #### [facility] [address] [place] [address] Dr. Dee Humphrey AST [Catalytic activity/Vol] 17 U/L Normal 15-37 [facility] Comment on above: Performed By: #### L IPA, CMP #### [facility] [address] [address] [address] Dee Humphrey Bilirubin [Mass/Vol] 0.1 mg/dL Critically low 0.2-1.0 [facility] Comment on above: Performed By: #### L IPA, CMP #### [facility] [address] [place] [address] Dr. Dee Humphrey Calcium [Mass/Vol] 8.9 mg/dL Normal 8.5-10.1 [facility] Comment on above: Performed By: #### L IPA, CMP #### [facility] [address] [place] [address] Dr. Dee Humphrey Chloride [Moles/Vol] 103 mmol/L Normal 98-107 [facility] Comment on above: Performed By: #### L IPA, CMP #### [facility] [address] [place] [address] Dr. Dee Humphrey CO2 [Moles/Vol] 26.9 mmol/L Normal 21.0-32.0 [facility] Comment on above: Performed By: #### L IPA, CMP #### [facility] [address] [place] [address] Dr. Dee Humphrey Creatinine [Mass/Vol] 0.80 mg/dL Normal 0.55-1.02 [facility] Comment on above: Performed By: #### L IPA, CMP #### [facility] [address] [place] [address] Dr. Dee Humphrey EGFR-AF SCOTTISH >60 Normal >=60 [facility] Comment on above: Performed By: #### L IPA, CMP #### [facility] [address] [place] [address] Dr. Dee Humphrey EGFR-NON AF SCOTTISH >60 Normal >=60 [facility] Comment on above: Performed By: #### L IPA, CMP #### [facility] [address] [place] [address] Dr. Dee Humphrey Globulin (S) [Mass/Vol] 3.9 g/dL Normal [facility] Comment on above: Performed By: #### L IPA, CMP #### [facility] [address] [place] [address] Dr. Dee Humphrey Glucose [Mass/Vol] 96 mg/dL Normal 74-106 [facility] Comment on above: Performed By: #### L IPA, CMP #### [facility] [address] [place] [address] Dr. Dee Humphrey Potassium [Moles/Vol] 3.7 mmol/L Normal 3.5-5.1 [facility] Comment on above: Performed By: #### L IPA, CMP #### [facility] [address] [place] [address] Dr. Dee Humphrey Protein [Mass/Vol] 7.8 g/dL Normal 6.4-8.2 [facility] Comment on above: Performed By: #### L IPA, CMP #### [facility] [address] [place] [address] Dr. Dee Humphrey Sodium [Moles/Vol] 137 mmol/L Normal 136-145 [facility] Comment on above: Performed By: #### L IPA, CMP #### [facility] [address] [place] [address] Dr. Dee Humphrey Urea nitrogen [Mass/Vol] 13.0 mg/dL Normal 7.0-18.0 [facility] Comment on above: Performed By: #### L IPA, CMP #### [facility] [address] [place] [address] Dr. Dee Humphrey Urea nitrogen/Creatinine [Mass ratio] 16.2 mg/mg Normal [facility] Comment on above: Performed By: #### L IPA, CMP #### [facility] [address] [place] [address] Dr. Dee Humphrey CBC AUTO DIFFon 03-07-2022 BASO # 0.0 103/ul Normal 0.0-0.1 [facility] Comment on above: Performed By: #### C BC #### [facility] Laboratory [address] [place] [address] Dr. Dee Humphrey Basophils/100 WBC (Bld) 0.3 % Normal 0.2-2.0 [facility] Comment on above: Performed By: #### C BC #### [facility] [address] [address] [address] Dee Humphrey EO # 0.1 103/ul Normal 0.0-0.7 [facility] Comment on above: Performed By: #### C BC #### [facility] [address] [place] [address] Dr. Dee Humphrey Eosinophils/100 WBC (Bld) 0.7 % Critically low 0.9-7.0 [facility] Comment on above: Performed By: #### C BC #### [facility] [address] [place] [address] Dr. Dee Humphrey Erythrocyte distribution width (RBC) [Ratio] 13.0 % Normal 11.0-15.0 [facility] Comment on above: Performed By: #### C BC #### [facility] [address] [place] [address] Dr. Dee Humphrey Hematocrit (Bld) [Volume fraction] 39.2 % Normal 36.0-48.0 [facility] Comment on above: Performed By: #### C BC #### [facility] [address] [place] [address] Dr. Dee Humphrey Hemoglobin (Bld) [Mass/Vol] 13.2 g/dL Normal 12.0-16.0 [facility] Comment on above: Performed By: #### C BC #### [facility] Laboratory [address] [place] [address] Dr. Dee Humphrey IG # 0.05 10e3/ul Critically high 0.00-0.03 [facility] Comment on above: Performed By: #### C BC #### [facility] Laboratory [address] [place] [address] Dr. Dee Humphrey IG % 0.5 % Normal 0.0-0.5 [facility] Comment on above: Performed By: #### C BC #### [facility] Laboratory [address] [place] [address] Dr. Dee Humphrey LYMPH # 4.2 103/ul Critically high 1.2-3.8 [facility] Comment on above: Performed By: #### C BC #### [facility] [address] [place] [address] Dr. Dee Humphrey Lymphocytes/100 WBC (Bld) 43.1 % Normal 20.5-60.0 [facility] Comment on above: Performed By: #### C BC #### [facility] Laboratory [address] [place] [address] Dr. Dee Humphrey MANUAL DIFF REQ NO Normal [facility] Comment on above: Performed By: #### C BC #### [facility] [address] [place] [address] Dr. Dee Humphrey MCH (RBC) [Entitic mass] 30.5 pg Normal 26.7-34.0 [facility] Comment on above: Performed By: #### C BC #### [facility] Laboratory [address] [place] [address] Dr. Dee Humphrey MCHC (RBC) [Mass/Vol] 33.7 g/dL Normal 29.9-35.2 [facility] Comment on above: Performed By: #### C BC #### [facility] Laboratory [address] [place] [address] Dr. Dee Humphrey MCV (RBC) [Entitic vol] 90.5 fL Normal 81.0-99.0 [facility] Comment on above: Performed By: #### C BC #### [facility] Laboratory [address] [place] [address] Dr. Dee Humphrey MONO # 0.4 103/ul Normal 0.3-0.8 [facility] Comment on above: Performed By: #### C BC #### [facility] Laboratory [address] [place] [address] Dr. Dee Humphrey Monocytes/100 WBC (Bld) 4.4 % Normal 1.7-12.0 [facility] Comment on above: Performed By: #### C BC #### [facility] Laboratory [address] [place] [address] Dr. Dee Humphrey NEUT # 4.9 103/ul Normal 1.4-6.5 [facility] Comment on above: Performed By: #### C BC #### [facility] Laboratory [address] [place] [address] Dr. Dee Humphrey Neutrophils/100 WBC (Bld) 51.0 % Normal 43.0-75.0 [facility] Comment on above: Performed By: #### C BC #### [facility] [address] [place] [address] Dr. Dee Humphrey Platelet mean volume (Bld) [Entitic vol] 9.6 fL Normal 9.5-13.5 [facility] Comment on above: Performed By: #### C BC #### [facility] [address] [place] [address] Dr. Dee Humphrey PLT 364 103/ul Normal 150-450 [facility] Comment on above: Performed By: #### C BC #### [facility] [address] [place] [address] Dr. Dee Humphrey RBC 4.33 106/ul Normal 4.20-5.40 [facility] Comment on above: Performed By: #### C BC #### [facility] [address] [place] [address] Dr. Dee Humphrey WBC 9.7 103/ul Normal 4.0-11.0 [facility] Comment on above: Performed By: #### C BC #### [facility] [address] [place] [address] Dr. Dee Humphrey LACTATE/LACTIC ACIDon 2021 Lactate [Moles/Vol] 1.1 mmol/L Normal 0.4-1.9 [facility] Comment on above: Performed By: #### P REGMame ERUR #### [facility] [address] [place] [address] Dr. Dee Humphrey LIPASEon 03-07-2022 Lipase [Catalytic activity/Vol] 79.0 U/L Normal 73.0-393.0 [facility] Comment on above: Performed By: #### C MP, LIPA #### [facility] [address] [place] [address] Dr. Dee Humphrey PROF 14(COMP METB)on 022 Albumin [Mass/Vol] 3.8 g/dL Normal 3.4-5.0 [facility] Comment on above: Performed By: #### C MP, LIPA #### [facility] [address] [address] [address] Dee Humphrey Albumin/Globulin [Mass ratio] 0.9 {ratio} Normal [facility] Comment on above: Performed By: #### C MP, LIPA #### [facility] [address] [address] [address] Dee Humphrey ALP [Catalytic activity/Vol] 80 U/L Normal 46-116 [facility] Comment on above: Performed By: #### C MP, LIPA #### [facility] [address] [address] [address] Dee Humphrey ALT [Catalytic activity/Vol] 27 U/L Normal 14-59 [facility] Comment on above: Performed By: #### C MP, LIPA #### [facility] [address] [address] [address] Dee Humphrey Anion gap [Moles/Vol] 9.5 mmol/L Normal [facility] Comment on above: Performed By: #### C MP, LIPA #### [facility] [address] [address] [address] Dee Humphrey AST [Catalytic activity/Vol] 13 U/L Critically low 15-37 [facility] Comment on above: Performed By: #### C MP, LIPA #### [facility] [address] [address] [address] Dee Humphrey Bilirubin [Mass/Vol] 0.1 mg/dL Critically low 0.2-1.0 [facility] Comment on above: Performed By: #### C MP, LIPA #### [facility] [address] [address] [address] Dee Humphrey Calcium [Mass/Vol] 9.0 mg/dL Normal 8.5-10.1 [facility] Comment on above: Performed By: #### C MP, LIPA #### [facility] [address] [address] [address] Dee Humphrey Chloride [Moles/Vol] 103 mmol/L Normal 98-107 [facility] Comment on above: Performed By: #### C MP, LIPA #### [facility] [address] [address] [address] Dee Humphrey CO2 [Moles/Vol] 27.1 mmol/L Normal 21.0-32.0 [facility] Comment on above: Performed By: #### C MP, LIPA #### [facility] [address] [address] [address] Dee Humphrey Creatinine [Mass/Vol] 0.86 mg/dL Normal 0.55-1.02 [facility] Comment on above: Performed By: #### C MP, LIPA #### [facility] [address] [address] [address] Dee Humphrey EGFR-AF SCOTTISH >60 Normal >=60 [facility] Comment on above: Performed By: #### C MP, LIPA #### [facility] [address] [address] [address] Dee Humphrey EGFR-NON AF SCOTTISH >60 Normal >=60 [facility] Comment on above: Performed By: #### C MP, LIPA #### [facility] [address] [address] [address] Dee Humphrey Globulin (S) [Mass/Vol] 4.1 g/dL Normal [facility] Comment on above: Performed By: #### C MP, LIPA #### [facility] [address] [address] [address] Dee Humphrey Glucose [Mass/Vol] 99 mg/dL Normal 74-106 [facility] Comment on above: Performed By: #### C MP, LIPA #### [facility] [address] [address] [address] Dee Humphrey Potassium [Moles/Vol] 3.6 mmol/L Normal 3.5-5.1 [facility] Comment on above: Performed By: #### C MP, LIPA #### [facility] [address] [address] [address] Dee Humphrey Protein [Mass/Vol] 7.9 g/dL Normal 6.4-8.2 [facility] Comment on above: Performed By: #### C MP, LIPA #### [facility] [address] [address] [address] Dee Humphrey Sodium [Moles/Vol] 136 mmol/L Normal 136-145 [facility] Comment on above: Performed By: #### C MP, LIPA #### [facility] [address] [address] [address] Dee Humphrey Urea nitrogen [Mass/Vol] 12.0 mg/dL Normal 7.0-18.0 [facility] Comment on above: Performed By: #### C MP, LIPA #### [facility] [address] [address] [address] Dee Humphrey Urea nitrogen/Creatinine [Mass ratio] 14.0 mg/mg Normal [facility] Comment on above: Performed By: #### C MP, LIPA #### [facility] [address] [address] [address] Dee Humphrey Consent for COVID Vaccineon 08-09-2020 SARS-CoV-2 (COVID-19) RNA J LUIS+probe Ql (Unsp spec) [id number]:127 Normal [facility] Consent for Treatmenton 07-30 Consent for Treatment [id number]:127 Normal [facility] Coding Summary.on 08-07-2020 Coding Summary. CODING DATE: 08/07/2020 FINAL [facility] STATUS: PAYOR: Luzma APC DESCRIPTION 1492 New [...] Paredes Date Saved: 08/07/2020 02:46 pm Normal [facility] Ambulatory Clinical Summaryo n 03-25-2020 Ambulatory Clinical Summary {[id number] Normal [facility] Patient Educationon 03-19-20 20 Patient Education [...] ? an antiviral such as ritonavir; ? Luna Pier's wort; or ? seizure medicine such as [...] irritable, agitate (more content not included)... Normal [facility] Video Visit - Telehealtho n 02-23-2020 [...] interactive video communications from my office using [employer] due to the restrictions of the COVID-19 pandemic. No physical exam was conducted other than those areas of the body visible to telecommunications with the patient located at [address] [place] [address], with no one else in attendance. If [...] Stopped age (more content not included)... Normal [facility] Comment on above: Result Comment: Elec tronically Signed By: Deepa [facility].mati\Date and Time Signed: 02/22/20 23:17 EDT [...] interactive video communications from my office using [employer] due to the restrictions of the COVID-19 pandemic. No physical exam was conducted other than those areas of the body visible to telecommunications with the patient located at [address] [place] [address], with no one else in attendance. If [...] Sister. Depres (more content not included)... Normal [facility] Comment on above: Result Comment: Elec tronically Signed By: Deepa [facility]ITALMaia\.br\Date and Time Signed: 02/11/20 14:46 EDT [...] interactive video communications from my office using [employer] due to the restrictions of the COVID-19 pandemic. No physical exam was conducted other than those areas of the body visible to telecommunications with the patient located at [address] [place], [place] [phone], with no one else in attendance. If [...] - Denies (more content not included)... Normal [facility] Comment on above: Result Comment: Elec tronically Signed By: Deepa [facility], Maia Ashley\.mati\Date and Time Signed: 02/11/20 [...] interactive video communications from my office using [employer] due to the restrictions of the COVID-19 pandemic. No physical exam was conducted other than those areas of the body visible to telecommunications with the patient located at [address] [place] [phone], with no one else in attendance. If [...] Tobacco F (more content not included)... Normal [facility] Comment on above: Result Comment: Elec tronically Signed By: Deepa [facility], Maia Montero.mati\Date and Time Signed: 01/29/20 [...] interactive video communications from my office using [employer] due to the restrictions of the COVID-19 pandemic. No physical exam was conducted other than those areas of the body visible to telecommunications with the patient located at [address] [place] [phone], with no one else in attendance. If [...] No. Yes, (more content not included)... Normal [facility] Comment on above: Result Comment: Elec tronically Signed By: Deepa [facility], Maia Ashlye\.mati\Date and Time Signed: 01/29/20 21:38 EDT Patient [...] include drow (more content not included)... Normal [facility] Video Visit - Telehealtho n 01-13-2020 [...] interactive video communications from my office using [employer] due to the restrictions of the COVID-19 pandemic. No physical exam was conducted other than those areas of the body visible to telecommunications with the patient located at [address] [place] [phone], with no one else in attendance. If [...] Tobacco For (more content not included)... Normal [facility] Comment on above: Result Comment: Elec tronically Signed By: Deepa [facility], Maia Montero.mati\Date and Time Signed: 01/13/20 [...] drow (more content not included)... Normal [facility] Video Visit - Telehealtho n 01-07-2020 Video [...] interactive video communications from my office using [employer] due to the restrictions of the COVID-19 pandemic. No physical exam was conducted other than those areas of the body visible to telecommunications with the patient located at [address] [place], [place] [phone], with no one else in attendance. If [...] Use:. N (more content not included)... Normal [facility] Comment on above: Result Comment: Elec tronically Signed By: Deepa [facility], Maia Montero.mati\Date and Time Signed: 01/07/20 [...] interactive video communications from my office using [employer] due to the restrictions of the COVID-19 pandemic. No physical exam was conducted other than those areas of the body visible to telecommunications with the patient located at [address] [place] [address], with no one else in attendance. If [...] Father and (more content not included)... Normal [facility] Comment on above: Result Comment: Elec tronically Signed By: Deepa [facility]ITALMa[facility].mati\Date and Time Signed: 12/30/19 13:50 EDT [...] interactive video communications from my office using [employer] due to the restrictions of the COVID-19 pandemic. No physical exam was conducted other than those areas of the body visible to telecommunications with the patient located at [address] [place], [place] [phone], with no one else in attendance. If [...] Alcohol U (more content not included)... Normal [facility] Comment on above: Result Comment: Elec tronically Signed By: Deepa [facility], Maia Ashley\.mati\Date and Time Signed: 12/23/19 [...] include drow (more content not included)... Normal [facility] Video Visit - Telehealtho n 12-04-2019 [...] interactive video communications from my office using [employer] due to the restrictions of the COVID-19 pandemic. No physical exam was conducted other than those areas of the body visible to telecommunications with the patient located at [address] [place] [phone], with no one else in attendance. If [...] Daily, 5 (more content not included)... Normal [facility] Comment on above: Result Comment: Elec tronically Signed By: Deepa [facility]ITALMaia Valle.mati\Date and Time Signed: 12/04/19 09:42 [...] rate, h (more content not included)... Normal [facility] Vital Signs Date Time Vital Sign Value Performing Clinician Facility 08-18-2023 14:24-0400 Body height 160.02 cm [facility] 08-18-2023 14:24-0400 Body mass index (BMI) [Ratio] 40.2 kg/m2 [facility] 08-18-2023 14:24-0400 Body temperature 98.4 [degF] [facility] 08-18-2023 14:24-0400 Body weight 103.02 kg [facility] 08-18-2023 14:24-0400 Diastolic blood pressure 81 mm[Hg] [facility] 08-18-2023 14:24-0400 Heart rate 101 /min [facility] 08-18-2023 14:24-0400 Respiratory rate 16 /min [facility] 08-18-2023 14:24-0400 SaO2% (BldA) [Mass fraction] 98 % [facility] 08-18-2023 14:24-0400 Systolic blood pressure 133 mm[Hg] [facility] 04-27-2023 16:30-0500 Body height 160.02 cm Sanaz Lockwood Other [facility] [employer] Other 04-27-2023 16:30-0500 Body mass index (BMI) [Ratio] 40.92 kg/m2 Sanaz Lockwood Other [facility] Other 04-27-2023 16:30-0500 Body temperature 98.2 [degF] Sanaz Lockwood Other [facility] Other 04-27-2023 16:30-0500 Body weight 104.78 kg Sanaz Lockwood Other [facility] Other 04-27-2023 16:30-0500 Respiratory rate 18 /min Sanaz Lockwood Other [facility] Other 04-27-2023 16:30-0500 SaO2% (BldA) [Mass fraction] 99 % Sanaz Lockwood Other [facility] Other 05-10-2022 14:45-0500 Body height 160.02 cm Kaylah Han Other [facility] Other 05-10-2022 14:45-0500 Body mass index (BMI) [Ratio] 38.97 kg/m2 Kaylah Lottault Other [facility] Other 05-10-2022 14:45-0500 Body temperature 99.3 [degF] Kaylah Lottault Other [facility] Other 05-10-2022 14:45-0500 Body weight 99.79 kg Kaylah Han Other [facility] Other 06-29-2019 22:40-0500 Pulse (Heart Rate) 84 /min [facility] 06-29-2019 22:40-0500 Pulse Oximetry 97 % [facility] 06-29-2019 22:35-0500 BP Diastolic 56 mm[Hg] [facility] 06-29-2019 22:35-0500 BP Systolic 100 mm[Hg] [facility] 06-29-2019 21:11-0500 BMI (Body Mass Index) 33.1 kg/m2 [facility] 06-29-2019 21:11-0500 Body Temperature 97.8 [degF] [facility] 06-29-2019 21:11-0500 Body weight 84.8 kg [facility] 06-29-2019 21:110500 Height 160.02 cm Kimberlyn Xie [facility] 06-29-2019 21:11-0500 Respiratory Rate 20 /min Kimberlyn Xie [facility] Encounters Encounter Date Encounter Type Care Provider Facility Start: 08-18-2023 End: 08-18-2023 ambulatory [facility] Work Phone: Start: 08-18-2023 End: 08-18-2023 Patient encounter procedure [facility] Work Phone: Start: 04-27-2023 End: 04-27-2023 ambulatory Sanaz Lockwood Other [facility] Other Start: 04-27-2023 Office outpatient visit 25 minutes Sanaz Lockwood [facility] Start: 05-10-2022 End: 05-10-2022 ambulatory Kaylah Han Other [facility] Other Start: 05-10-2022 Office outpatient ne w 20 minutes Kaylah Han [facility] Start: 04-27-2022 End: 04-27-2022 ambulatory KIMBERLYN XIE Facility:[facility] Start: 03-07-2022 End: 03-07-2022 ambulatory KIMBERLYN XIE Facility:[facility] Start: 09-23-[address] JAZIEL HILL Facility :[facility] Start: 06-29-2019 End: 06-29-2019 Emergency department patient visit Kimberlyn Xie [facility] Procedures Date Procedure Procedure Detail Performing Clinician Start: 08-18-2023 Quick Strep (POC) Plan of Treatment Date Care Activity Detail Author Patient Education Epinephrine (B y injection) Anaphylaxis (ED) General Allergic Reaction (ED) [facility] Patient referral [facility] Payers Date Payer Category Payer Unknown [id number] [id number] 1987 Unknown [id number] 1987 Unknown [id number] 1957 Self-pay [id number] 1957 Unknown [id number] Private Health Insurance [id number] Self-pay Self Pay [id number] Social History Date Type Detail Facility Start: 06-29-2019 End: 08-18-2023 Tobacco smoking status NHIS Smoker (finding) [facility] Start: 1985 Sex Assigned At Female F [facility] Sex Assigned At Sex Assigned At Bir th [place] [employer] Other Goals Date Patient Goal Desired Activity [...] condition. Mar, Sore throat (ICD-10 - J02.9) [place] [employer] Other 01-10-2023 Evaluation note* Encounter Date Diagnosis [...] weeks for the cough to go away [facility] Other 11-07-2022 NoteIndication: Abdominal pain. Comparison: None [...] Electronically authenticated by: SURJIT FREITAS Date: 2022-03-07 20:49[facility]11-19-2020 NoteHPI Staff This visit was conducted via phone communications from my office due to the restrictions of the COVID-19 pandemic. No physical exam was conducted due to audio only communication with the patient located at [address] [place] [phone], with no one else. If it is determined that the patientshould be evaluated in person, the patient will be directed to the appropriate clinic or venue. Thepatient or their guardian verbally consented to this visit. Phone time was 15 minutes discussing health issues with counseling and coordination of care. Subjective Interval History/HPI Patient presents today for follow up via telehealth phone from [facility]. Patient started Latuda 20mg last evening with [...] anxiety, # 30 tab(s), Refills(s) 2, Pharmacy: [facility]/pharmacy #[id number], 161, cm, 12/23/19 10:18:00 EDT, Height/Length Dosing, 82, kg, 12/23/19 10:18:00 EDT, Weight Dosing Orders: lurasidone, 20 mg = 1 tab(s), Oral, Daily, with 350 calories; begin this dose first then progress to next dose of 40mg, X 1 week(s), # 7 tab(s), Refills(s) 0, Pharmacy: [facility]/pharmacy #[id number], 161, cm, 12/23/19 10:18:00 EDT, Height/Length Dosing, 82, kg, 08/24/20 10:... lurasidone, 40 mg = 1 tab(s), Oral, Daily, with 350 calories, # 30 tab(s), Refills(s) 1, Pharmacy: [facility]/pharmacy #[id number], 161, cm, 12/23/19 10:18:00 EDT, [...] (generalized anxiety disorder) Hidr (more content not included)...[facility] Result Comment: Electronically Signed By: Carlota RODRIGUEZ CNP\.br\Date and Time Signed: 03/19/20 14:27 [id number] NoteHPI Staff This visit was conducted via two-way, real-time interactive video communications from my office using [employer] due to the restrictions of the COVID-19 pandemic. No physical exam was conducted other than those areas of the body visible to telecommunications with the patient located at [address] [place] [address], with no one else in attendance. If [...] Ordered: TELEHEALTH Office Visit Level 3 Est 28429 General Treatment Plan Maintain medication regimen _Improve [...] Employed, 03/18/2019 Home/Environment Lani (more content not included)...[facility]: Result Comment: Electronically Signed By: Carlota RODRIGUEZ CNP\harshil\Date and Time Signed: 03/05/20 13:32 [id number] NoteI Staff This visit was conducted via two-way, real-time interactive video communications from my office using [employer] due to the restrictions of the COVID-19 pandemic. No physical exam was conducted other than those areas of the body visible to telecommunications with the patient located at [address] [place] [phone], with no one else in attendance. If [...] anxiety, # 30 tab(s), Refills(s) 1, [id number] 161, cm, 12/23/19 10:18:00 EDT, Height/Length Dosing, 82, kg, 12/23/19 10:18:00 EDT, Weight Dosing alprazolam, 0.5 mg = 1 tab(s), Oral, TID, PRN for anxiety, # 30 tab(s), Refills(s) 1, [id number], 161, cm, 12/23/19 10:18:00 EDT, Height/Length Dosing, 82, kg, 12/23/19 10:18:00 EDT, Weight Dosing aripiprazole, See Instructions, 1.5 tab po qAM, # 30 tab(s), Refills(s) 2, Pharmacy: [facility] #[id number], 161, cm, 12/23/19 10:18:00 EDT, Height/Length Dosing, 82, kg, 12/23/19 10:18:00 EDT, Weight Dosing aripiprazole, See Instructions, 1 tab po qAM, # 30 tab(s), Refills(s) 5, [id number], 161, cm, 12/23/19 10:18:00 EDT, Height/Length Dosing, 82, kg, 12/23/19 10:18:00 EDT, Weight Dosing cyclobenzaprine, 10 mg = 1 tab(s), Oral, TID, PRN for spasm, # 30 tab(s), Refills(s) 1, [id number], 161, cm, 06/13/19 14:39:00 EST, Height/Length Measured, 82, kg, 06/13/19 14:39:00EST, Weight Measured cyclobenzaprine, 10 mg = 1 tab(s), Oral, TID, PRN for spasm, # 30 tab(s), Refills(s) 1, [id number], 161, cm, 12/23/19 10:18:00 EDT, Height/Length Dosing, 82, kg, 12/23/19 10:18:00 EDT, Weight Dosing General Treatment Plan Maintain medication regimen _Improve mood stability _Improve anxiety control _Improve social and interpersonal functioning Clinical Global Impression 62 Prognosis progressing Follow-up With When Contact Information Carlota RODRIGUEZ CNP In 4 weeks Additional Instructions: (more content not included)...[facility]:Result Comment: Electronically Signed By: Carlota RODRIGUEZ CNP\.br\Date and Time Signed: 01/27/20 22:35 [id number] NoteHPI Staff This visit was conducted via two-way, real-time interactive video communications from my office using [employer] due to the restrictions of the COVID-19 pandemic. No physical exam was conducted other than those areas of the body visible to telecommunications with the patient located at [address] [place] [address], with no one else in attendance. If [...] Ordered: TELEHEALTH Office Visit Level 3 Est 47063 General Treatment Plan Maintain medication regimen _Improve mood stability _Improve anxiety control _Improve social and interpersonal functioning Clinical Global Impression 63 Prognosis progressing Follow-up With When Contact Information JENNIFER BRADEN Cralota Abhilash In 2 weeks Additional Instructions: Problem [...] Use:. Never Smokeless Tob (more content not included)...[facility]:Result Comment: Electronically Signed By: Carlota RODRIGUEZ CNP\.mati\Date and Time Signed: 01/13/20 09:11 [id number] NoteHPI Staff This visit was conducted via two-way, real-time interactive video communications from my office using [employer] due to the restrictions of the COVID-19 pandemic. No physical exam was conducted other than those areas of the body visible to telecommunications with the patient located at [address] [place] [address], with no one else in attendance. If [...] anxiety, # 30 tab(s), Refills(s) 1, Pharmacy: [facility]/pharmacy #[id number], 161, cm, 12/23/19 10:18:00 EDT, Height/Length Dosing, 82, kg, 12/23/19 10:18:00 EDT, Weight Dosing alprazolam, 0.5 mg = 1 tab(s), Oral, TID, PRN for anxiety, # 30 tab(s), Refills(s) 1, Pharmacy: [facility]/pharmacy #[id number], 161, cm, 06/13/19 14:39:00 EST, [...] Allergies Bactrim Social History (more content not included)...[facility]:Result Comment: Electronically Signed By: Carlota RODRIGUEZ CNP\.br\Date and Time Signed: 12/23/19 16:37 [id number] NoteI Staff This visit was conducted via two-way, real-time interactive video communications from my office using [employer] due to the restrictions of the COVID-19 pandemic. No physical exam was conducted other than those areas of the body visible to telecommunications with the patient located at [address] [place] [address], with no one else in attendance. If [...] q24hr, # 30 tab(s), Refills(s) 2, Pharmacy: [facility]/pharmacy #[id number],161, cm, 06/13/19 14:39:00 EST, Height/Length Measured, 82, kg, 06/13/19 14:39:00 EST, Weight Measured cyclobenzaprine, 10 mg = 1 tab(s), Oral, TID, PRN for spasm, # 30 tab(s), Refills(s) 1, Pharmacy: [facility]/pharmacy #[id number], 161, cm, 06/13/19 14:39:00 EST, [...] Employment/School Employed, 03/18/2019 Home/Environment (more content not included)...[facility]Result Comment: Electronically Signed By: Carlota RODRIGUEZ CNP\Date and Time Signed: 12/02/19 16:38 EDTChief complaint+Reason for visit Narrative* Chief Complaint Nausea, diarrhea, fe zhou Reason for Visit Contact with and (louis spected) exposure to covid-19 Sore throat [facility] Work Phone: Evaluation note* Diagnosis Onset Date Resolution Status Contact with and (suspected) exposure to covid-19 noneactive Sore throat noneactive [facility] Work Phone: History general Narrative - Reported* Type Description Date Medical History Bipolar Surgical History appendectomy Surgical History x 3 Hospitalization History see above surgical histo ry [facility] Other Advance Directives Advance Directive Response Recorded [...] may need to be seen by an electronic scanner operator if you have other events like this without definite egg exposure. Summary Purpose Family History Relationship Condition Age at Onset Recorded Date/T alo father Diabetes mellitus Unknown Hypertension Unknown Additional Source Comments INFORMATION SOURCE (unrecogn ized section and content) DATE CREATED AUTHOR 10/30/[address] [facility] DATE CREATED AUTHOR AUTHOR'S ORGANIZ ATION 04/29/2022 [facility] REASON FOR VISIT (unrecogniz ed [...] BE BASED ON THE PRIMARY CLINICAL RECORDS. [facility] [employer] provides no warranty or guarantee of the accuracy or completeness of information in this document.
== END 2023-11-24 09:33 | disposition home or self-care (01) ==
LOC: NOMS 09:33
PROVIDERS: PCP Nurse Practitioner Family; Visit Provider Obstetrics & Gynecology
DX: Z34.91 Encounter for supervision of normal pregnancy, unspecified, first trimester (principal); Z3A.09 9 weeks gestation of pregnancy; N92.6 Irregular menstruation, unspecified
CPT/HCPCS: 76817

== ENCOUNTER 2023-11-30 16:28 | Outpatient (OUT) | payer BC, SELFPAY ==
--- OUTSIDE RECORDS SUMMARY | 2023-11-30 16:37 | XMS_ITS | CCD ---
[facility] Organization [facility] Providers Care Instructor Of Education Name Role Phone Kimberlyn Xie Primary Care [...] egg extract Drug Allergy 08-18-19 24 Vomiting [facility] (2 sources) Sulfamethoxazole Drug Allergy 08-18-19 24 Unknown Reaction, Unknown Reaction, [facility] (2 sources) Trimethoprim Drug Allergy 08-18-19 24 Unknown Reaction, Unknown Reaction, [facility] (2 sources) Fish Containing Products Propensity to adverse reactions 08-18-19 24 Difficulty Breathing [facility] (1 source) Sulfamethoxazole / Trimethoprim Drug Allergy 02-04-20 13 [facility] Repository (2 sources) Sulfamethoxazole / Trimethoprim Drug Allergy [facility] Other Medications Current Medications Medication Drug Class(es) Dates Sig (Normalized) Sig (Original) [id number] 200 actuat albuterol 0.09 mg/actuat metered dose [...] oral tablet (1 source) alpha-Adrenergic Agonist, Uncompetitive V-lxsfnj-W-asparta te Receptor Antagonist, Sigma-1 Agonist Start: 04-27-2023 take 4 tablets by mouth every twenty-four hours as needed Capmist DM 60-15-400 MG as needed Orally every 4-6 hours as needed, max 4 tablets in 24 hours for 5 days Mar, Active [id number] 0.3 ml EPINEPHrine 1 mg/ml auto-injector (2 [...] 03-09-2022 Episodic Other aftercare (1 source) Other custodial (current) drug therapy; 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 pyogenes Org specific cx Ql (Throat) Negative [employer] Other Quick Strep [employer] Other COVID/FLU/RSV RT-PCRon 05-10 SARS-CoV-2 (COVID-19) RNA J LUIS+probe Ql (Unsp spec) Negative [employer] Other COVID/FLU/RSV RT-PCR Positive [employer] Other COVID/FLU/RSV RT-PCR Negative [employer] Other CBC AUTO DIFFon 04-27-2022 BASO # 0.0 103/ul Normal 0.0-0.1 [facility] Comment on above: Performed By: #### C BC #### [facility] Laboratory [address] [address] [address] Dee Humphrey Basophils/100 WBC (Bld) 0.2 % Normal 0.2-2.0 [facility] Comment on above: Performed By: #### C BC #### [facility] [address] [address] [address] Dee Humphrey EO # 0.1 103/ul Normal 0.0-0.7 [facility] Comment on above: Performed By: #### C BC #### [facility] Laboratory [address] [address] [address] Dee Humphrey Eosinophils/100 WBC (Bld) 0.6 % Critically low 0.9-7.0 [facility] Comment on above: Performed By: #### C BC #### [facility] [address] [address] [address] Dee Humphrey Erythrocyte distribution width (RBC) [Ratio] 14.1 % Normal 11.0-15.0 [facility] Comment on above: Performed By: #### C BC #### [facility] Laboratory [address] [place] [address] Dr. Dee Humphrey Hematocrit (Bld) [Volume fraction] 37.1 % Normal 36.0-48.0 [facility] Comment on above: Performed By: #### C BC #### [facility] Laboratory [address] [place] [address] Dr. Dee Humphery Hemoglobin (Bld) [Mass/Vol] 12.4 g/dL Normal 12.0-16.0 [facility] Comment on above: Performed By: #### C BC #### [facility] [address] [address] [address] Dee Humphrey IG # 0.06 10e3/ul Critically high 0.00-0.03 [facility] Comment on above: Performed By: #### C BC #### [facility] [address] [address] [address] Dee Humphrey IG % 0.5 % Normal 0.0-0.5 [facility] Comment on above: Performed By: #### C BC #### [facility] [address] [place] [address] Dr. Dee Humphrey LYMPH # 3.7 103/ul Normal 1.2-3.8 [facility] Comment on above: Performed By: #### C BC #### [facility] Laboratory [address] [place] [address] Dr. Dee Humphrey Lymphocytes/100 WBC (Bld) 28.7 % Normal 20.5-60.0 [facility] Comment on above: Performed By: #### C BC #### [facility] Laboratory [address] [place] [address] Dr. Dee Humphrey MANUAL DIFF REQ NO Normal [facility] Comment on above: Performed By: #### C BC #### [facility] [address] [place] [address] Dr. Dee Humphrey MCH (RBC) [Entitic mass] 30.2 pg Normal 26.7-34.0 [facility] Comment on above: Performed By: #### C BC #### [facility] [address] [place] [address] Dr. Dee Humphrey MCHC (RBC) [Mass/Vol] 33.4 g/dL Normal 29.9-35.2 [facility] Comment on above: Performed By: #### C BC #### [facility] [address] [place] [address] Dr. Dee Humphrye MCV (RBC) [Entitic vol] 90.5 fL Normal 81.0-99.0 [facility] Comment on above: Performed By: #### C BC #### [facility] [address] [place] [address] Dr. Dee Humphrey MONO # 0.7 103/ul Normal 0.3-0.8 [facility] Comment on above: Performed By: #### C BC #### [facility] Laboratory [address] [place] [address] Dr. Dee Humphrey Monocytes/100 WBC (Bld) 5.0 % Normal 1.7-12.0 [facility] Comment on above: Performed By: #### C BC #### [facility] [address] [place] [address] Dr. Dee Humphrey NEUT # 8.5 103/ul Critically high 1.4-6.5 [facility] Comment on above: Performed By: #### C BC #### [facility] [address] [address] [address] Dee Humphrey Neutrophils/100 WBC (Bld) 65.0 % Normal 43.0-75.0 [facility] Comment on above: Performed By: #### C BC #### [facility] [address] [place] [address] Dr. Dee Humphrey Platelet mean volume (Bld) [Entitic vol] 9.6 fL Normal 9.5-13.5 [facility] Comment on above: Performed By: #### C BC #### [facility] [address] [place] [address] Dr. Dee Humphrey PLT 317 103/ul Normal 150-450 [facility] Comment on above: Performed By: #### C BC #### [facility] [address] [place] [address] Dr. Dee Humphrey RBC 4.10 106/ul Critically low 4.20-5.40 [facility] Comment on above: Performed By: #### C BC #### [facility] [address] [place] [address] Dr. Dee Humphrey WBC 13.1 103/ul Critically high 4.0-11.0 [facility] Comment on above: Performed By: #### C BC #### [facility] [address] [place] [address] ABD/PELVIS WO CONon [...] Date: 2022-04-27 20:24 Normal [facility] ER URINE PROFILEon 2 Bilirubin Ql (U) Negative Normal NEGATIVE [facility] Comment on above: Performed By: #### P REGU, ERUR #### [facility] [address] [place] [address] Dr. Dee Humphrey Clarity (U) CLEAR Normal CLEAR [facility] Comment on above: Performed By: #### P REGU, ERUR #### [facility] [address] [place] [address] Dr. Dee Humphrey Color (U) YELLOW Normal YELLOW [facility] Comment on above: Performed By: #### P REGU, ERUR #### [facility] [address] [place] [address] Dr. Dee ASHRAFD A micrscopic examination will be performed if indicated. Normal [facility] Comment on above: Performed By: #### P REGU, ERUR #### [facility] [address] [place] [address] Dr. Dee Humphrey Glucose Ql (U) Negative Normal NEGATIVE [facility] Comment on above: Performed By: #### P REGU, ERUR #### [facility] [address] [place] [address] Dr. Dee Humphrey Hemoglobin Ql (U) Negative Normal NEGATIVE [facility] Comment on above: Performed By: #### P REGU, ERUR #### [facility] [address] [place] [address] Dr. Dee Humphrey Ketones Ql (U) Negative Normal NEGATIVE [facility] Comment on above: Performed By: #### P REGU, ERUR #### [facility] [address] [place] [address] Dr. Dee Humphrey LEUKOCYTES Negative Normal NEGATIVE [facility] Comment on above: Performed By: #### P REGU, ERUR #### [facility] [address] [address] [address] Dee Humphrey Nitrite Ql (U) Negative Normal NEGATIVE [facility] Comment on above: Performed By: #### P REGU, ERUR #### [facility] [address] [place] [address] Dr. Dee Humphrey pH (U) 5.5 [pH] Normal 5-9 [facility] Comment on above: Performed By: #### P REGU, ERUR #### [facility] [address] [place] [address] Dr. Dee Humphrey SPEC GRAVITY >=1.030 Abnormal 1.005-<=1.[address] [place] [address] Comment on above: Performed By: #### P REGU, ERUR #### [facility] [address] [place] [address] Dr. Dee Humphrey UA PROTEIN Negative Normal NEGATIVE/ TRACE [facility] Comment on above: Performed By: #### P REGU, ERUR #### [facility] [address] [place] [address] Dr. Dee Humphrey UR MICRO IND NOT INDICATED Normal [facility] Comment on above: Performed By: #### P REGU, ERUR #### [facility] [address] [place] [address] Dr. Dee Humphrey Urobilinogen Qn (U) 0.2 {Blanca'U}/dL Normal 0.2 - 1. 0 [facility] Comment on above: Performed By: #### P REGU, ERUR #### [facility] [address] [place] [address] Dr. Dee Humphrey LIPASEon 04-27-2022 Lipase [Catalytic activity/Vol] 94.0 U/L Normal 73.0-393.0 [facility] Comment on above: Performed By: #### L IPA, CMP #### [facility] [address] [place] [address] Dr. Dee Humphrey URon 04-27-2022 , QUAL Negative Normal NEGATIVE [facility] Comment on above: Performed By: #### P REGU, ERUR #### [facility] [address] [place] [address] Dr. Dee Humphrey PROF 14(COMP METB)on 022 Albumin [Mass/Vol] 3.9 g/dL Normal 3.4-5.0 [facility] Comment on above: Performed By: #### L IPA, CMP #### [facility] [address] [place] [address] Dr. Dee Humphrey Albumin/Globulin [Mass ratio] 1.0 {ratio} Normal [facility] Comment on above: Performed By: #### L IPA, CMP #### [facility] [address] [place] [address] Dr. Dee Humphrey ALP [Catalytic activity/Vol] 87 U/L Normal 46-116 [facility] Comment on above: Performed By: #### L IPA, CMP #### [facility] [address] [place] [address] Dr. Dee Humphrey ALT [Catalytic activity/Vol] 31 U/L Normal 14-59 [facility] Comment on above: Performed By: #### L IPA, CMP #### [facility] [address] [place] [address] Dr. Dee Humphrey Anion gap [Moles/Vol] 10.8 mmol/L Normal [facility] Comment on above: Performed By: #### L IPA, CMP #### [facility] [address] [place] [address] Dr. Dee Humphrey AST [Catalytic activity/Vol] 17 U/L Normal 15-37 [facility] Comment on above: Performed By: #### L IPA, CMP #### [facility] [address] [address] [address] Dee Humphrey Bilirubin [Mass/Vol] 0.1 mg/dL Critically low 0.2-1.0 [facility] Comment on above: Performed By: #### L IPA, CMP #### [facility] [address] [place] [address] Dr. Dee Humphrey Calcium [Mass/Vol] 8.9 mg/dL Normal 8.5-10.1 [facility] Comment on above: Performed By: #### L IPA, CMP #### [facility] [address] [place] [address] Dr. Dee Humphrey Chloride [Moles/Vol] 103 mmol/L Normal 98-107 [facility] Comment on above: Performed By: #### L IPA, CMP #### [facility] [address] [place] [address] Dr. Dee Humphrey CO2 [Moles/Vol] 26.9 mmol/L Normal 21.0-32.0 [facility] Comment on above: Performed By: #### L IPA, CMP #### [facility] [address] [place] [address] Dr. Dee Humphrey Creatinine [Mass/Vol] 0.80 mg/dL Normal 0.55-1.02 [facility] Comment on above: Performed By: #### L IPA, CMP #### [facility] [address] [place] [address] Dr. Dee Humphrey EGFR-AF SALVADOREAN >60 Normal >=60 [facility] Comment on above: Performed By: #### L IPA, CMP #### [facility] [address] [place] [address] Dr. Dee Humphrey EGFR-NON AF SALVADOREAN >60 Normal >=60 [facility] Comment on above: Performed By: #### L IPA, CMP #### [facility] [address] [place] [address] Dr. Dee Humphrey Globulin (S) [Mass/Vol] 3.9 g/dL Normal [facility] Comment on above: Performed By: #### L IPA, CMP #### [facility] [address] [place] [address] Dr. Dee Humphrey Glucose [Mass/Vol] 96 mg/dL Normal 74-106 [facility] [place] Comment on above: Performed By: #### L IPA, CMP #### [facility] [address] [place] [address] Dr. Dee Humphrey Potassium [Moles/Vol] 3.7 mmol/L Normal 3.5-5.1 [facility] Comment on above: Performed By: #### L IPA, CMP #### [facility] [address] [place] [address] Dr. Dee Humphrey Protein [Mass/Vol] 7.8 g/dL Normal 6.4-8.2 [facility] [place] Comment on above: Performed By: #### L IPA, CMP #### [facility] [address] [place] [address] Dr. Dee Humphrey Sodium [Moles/Vol] 137 mmol/L Normal 136-145 [facility] Comment on above: Performed By: #### L IPA, CMP #### [facility] [address] [place] [address] Dr. Dee Humphrey Urea nitrogen [Mass/Vol] 13.0 mg/dL Normal 7.0-18.0 [facility] Comment on above: Performed By: #### L IPA, CMP #### [facility] [address] [place] [address] Dr. Dee Humphrey Urea nitrogen/Creatinine [Mass ratio] 16.2 mg/mg Normal [facility] Comment on above: Performed By: #### L IPA, CMP #### [facility] [address] [place] [address] Dr. Dee Humphrey CBC AUTO DIFFon 03-07-2022 BASO # 0.0 103/ul Normal 0.0-0.1 [facility] Comment on above: Performed By: #### C BC #### [facility] [address] [place] [address] Dr. Dee Humphrey Basophils/100 WBC (Bld) 0.3 % Normal 0.2-2.0 [facility] Comment on above: Performed By: #### C BC #### [facility] [address] [address] [address] Dee Humphrey EO # 0.1 103/ul Normal 0.0-0.7 [facility] Comment on above: Performed By: #### C BC #### [facility] [address] [place] [address] Dr. Dee Humphrey Eosinophils/100 WBC (Bld) 0.7 % Critically low 0.9-7.0 [facility] Comment on above: Performed By: #### C BC #### [facility] [address] [place] [address] Dr. Dee Humphrey Erythrocyte distribution width (RBC) [Ratio] 13.0 % Normal 11.0-15.0 [facility] Comment on above: Performed By: #### C BC #### [facility] [address] [place] [address] Dr. Dee Humphrey Hematocrit (Bld) [Volume fraction] 39.2 % Normal 36.0-48.0 [facility] Comment on above: Performed By: #### C BC #### [facility] [address] [place] [address] Dr. Dee Humphrey Hemoglobin (Bld) [Mass/Vol] 13.2 g/dL Normal 12.0-16.0 [facility] Comment on above: Performed By: #### C BC #### [facility] [address] [place] [address] Dr. Dee Humphrey IG # 0.05 10e3/ul Critically high 0.00-0.03 [facility] Comment on above: Performed By: #### C BC #### [facility] [address] [place] [address] Dr. Dee Humphrey IG % 0.5 % Normal 0.0-0.5 [facility] Comment on above: Performed By: #### C BC #### [facility] [address] [place] [address] Dr. Dee Humphrey LYMPH # 4.2 103/ul Critically high 1.2-3.8 [facility] Comment on above: Performed By: #### C BC #### [facility] [address] [place] [address] Dr. Dee Humphrey Lymphocytes/100 WBC (Bld) 43.1 % Normal 20.5-60.0 [facility] Comment on above: Performed By: #### C BC #### [facility] [address] [place] [address] Dr. Dee Humphrey MANUAL DIFF REQ NO Normal [facility] Comment on above: Performed By: #### C BC #### [facility] [address] [place] [address] Dr. Dee Humphrey MCH (RBC) [Entitic mass] 30.5 pg Normal 26.7-34.0 [facility] Comment on above: Performed By: #### C BC #### [facility] [address] [place] [address] Dr. Dee Humphrey MCHC (RBC) [Mass/Vol] 33.7 g/dL Normal 29.9-35.2 [facility] Comment on above: Performed By: #### C BC #### [facility] [address] [place] [address] Dr. Dee Humphrey MCV (RBC) [Entitic vol] 90.5 fL Normal 81.0-99.0 [facility] Comment on above: Performed By: #### C BC #### [facility] [address] [place] [address] Dr. Dee Humphrey MONO # 0.4 103/ul Normal 0.3-0.8 [facility] Comment on above: Performed By: #### C BC #### [facility] [address] [place] [address] Dr. Dee Humphrey Monocytes/100 WBC (Bld) 4.4 % Normal 1.7-12.0 [facility] Comment on above: Performed By: #### C BC #### [facility] [address] [place] [address] Dr. Dee Humphrey NEUT # 4.9 103/ul Normal 1.4-6.5 [facility] Comment on above: Performed By: #### C BC #### [facility] [address] [place] [address] Dr. Dee Humphrey Neutrophils/100 WBC (Bld) 51.0 % Normal 43.0-75.0 [facility] Comment on above: Performed By: #### C BC #### [facility] [address] [place] [address] Dr. Dee Humphrey Platelet mean volume (Bld) [Entitic vol] 9.6 fL Normal 9.5-13.5 [facility] Comment on above: Performed By: #### C BC #### [facility] [address] [place] [address] Dr. Dee Humphrey PLT 364 103/ul Normal 150-450 [facility] Comment on above: Performed By: #### C BC #### [facility] [address] [place] [address] Dr. Dee Humphrey RBC 4.33 106/ul Normal 4.20-5.40 [facility] Comment on above: Performed By: #### C BC #### [facility] [address] [place] [address] Dr. Dee Humphrey WBC 9.7 103/ul Normal 4.0-11.0 [facility] Comment on above: Performed By: #### C BC #### [facility] [address] [place] [address] Dr. Dee Humphrey LACTATE/LACTIC ACIDon 2021 Lactate [Moles/Vol] 1.1 mmol/L Normal 0.4-1.9 [facility] Comment on above: Performed By: #### P REGMame ERUR #### [facility] [address] [place] [address] Dr. Dee Humphrey LIPASEon 03-07-2022 Lipase [Catalytic activity/Vol] 79.0 U/L Normal 73.0-393.0 [facility] Comment on above: Performed By: #### C MP, LIPA #### [facility] [address] [place] [address] Dr. Dee Humphrey PROF 14(COMP METB)on 022 Albumin [Mass/Vol] 3.8 g/dL Normal 3.4-5.0 [facility] Comment on above: Performed By: #### C MP, LIPA #### [facility] [address] [address] [address] Dee Humphrey Albumin/Globulin [Mass ratio] 0.9 {ratio} Normal [facility] Comment on above: Performed By: #### C MP, LIPA #### [facility] [address] [address] [address] Dee Humphrey ALP [Catalytic activity/Vol] 80 U/L Normal 46-116 [facility] Comment on above: Performed By: #### C MP, LIPA #### [facility] [address] [address] [address] Dee Humphrey ALT [Catalytic activity/Vol] 27 U/L Normal 14-59 [facility] Comment on above: Performed By: #### C MP, LIPA #### [facility] [address] [address] [address] Dee Humphrey Anion gap [Moles/Vol] 9.5 mmol/L Normal [facility] Comment on above: Performed By: #### C MP, LIPA #### [facility] [address] [address] [address] Dee Humphrey AST [Catalytic activity/Vol] 13 U/L Critically low 15-37 [facility] Comment on above: Performed By: #### C MP, LIPA #### [facility] [address] [address] [address] Dee Humphrey Bilirubin [Mass/Vol] 0.1 mg/dL Critically low 0.2-1.0 [facility] Comment on above: Performed By: #### C MP, LIPA #### [facility] [address] [address] [address] Dee Humphrey Calcium [Mass/Vol] 9.0 mg/dL Normal 8.5-10.1 [facility] Comment on above: Performed By: #### C MP, LIPA #### [facility] [address] [address] [address] Dee Humphrey Chloride [Moles/Vol] 103 mmol/L Normal 98-107 [facility] Comment on above: Performed By: #### C MP, LIPA #### [facility] [address] [address] [address] Dee Humphrey CO2 [Moles/Vol] 27.1 mmol/L Normal 21.0-32.0 [facility] Comment on above: Performed By: #### C MP, LIPA #### [facility] [address] [address] [address] Dee Humphrey Creatinine [Mass/Vol] 0.86 mg/dL Normal 0.55-1.02 [facility] Comment on above: Performed By: #### C MP, LIPA #### [facility] [address] [address] [address] Dee Humphrey EGFR-AF SALVADOREAN >60 Normal >=60 [facility] Comment on above: Performed By: #### C MP, LIPA #### [facility] [address] [address] [address] Dee Humphrey EGFR-NON AF SALVADOREAN >60 Normal >=60 [facility] Comment on above: Performed By: #### C MP, LIPA #### [facility] [address] [address] [address] Dee Humphrey Globulin (S) [Mass/Vol] 4.1 g/dL Normal [facility] Comment on above: Performed By: #### C MP, LIPA #### [facility] [address] [address] [address] Dee Humphrey Glucose [Mass/Vol] 99 mg/dL Normal 74-106 [facility] [place] Comment on above: Performed By: #### C MP, LIPA #### [facility] [address] [address] [address] Dee Humphrey Potassium [Moles/Vol] 3.6 mmol/L Normal 3.5-5.1 [facility] Comment on above: Performed By: #### C MP, LIPA #### [facility] [address] [address] [address] Dee Humphrey Protein [Mass/Vol] 7.9 g/dL Normal 6.4-8.2 [facility] Comment on above: Performed By: #### C MP, LIPA #### [facility] [address] [address] [address] Dee Humphrey Sodium [Moles/Vol] 136 mmol/L Normal 136-145 [facility] Comment on above: Performed By: #### C MP, LIPA #### [facility] [address] [address] [address] Dee Humphrey Urea nitrogen [Mass/Vol] 12.0 mg/dL Normal 7.0-18.0 [facility] Comment on above: Performed By: #### C MP, LIPA #### [facility] [address] [address] [address] Dee Humphrey Urea nitrogen/Creatinine [Mass ratio] 14.0 mg/mg Normal [facility] Comment on above: Performed By: #### C MP, LIPA #### [facility] [address] [address] [address] Dee Humphrey Consent for COVID Vaccineon 08-09-2020 SARS-CoV-2 (COVID-19) RNA J LUIS+probe Ql (Unsp spec) [id number] .[id number]:127 Normal [facility] Consent for Treatmenton 07-30 Consent for Treatment [id number] .[id number]:127 Normal [facility] Coding Summary.on 08-07-2020 Coding Summary. CODING DATE: 08/07/2020 FINAL [facility] STATUS: PAYOR: Luzma APC DESCRIPTION 1492 [...] Paredes Date Saved: 08/07/2020 02:46 pm Normal [facility] Ambulatory Clinical Summaryo n 03-25-2020 Ambulatory Clinical Summary {[id number] Normal [facility] Patient Educationon 03-19-20 20 Patient Education [...] ? an antiviral such as ritonavir; ? [place]'s wort; or ? seizure medicine such as [...] irritable, agitate (more content not included)... Normal [facility] Video Visit - Telehealtho n [...] interactive video communications from my office using [email or web address] due to the restrictions of the COVID-19 pandemic. No physical exam was conducted other than those areas of the body visible to telecommunications with the patient located at [address] [place] [address], with no one else in attendance. If [...] Stopped age (more content not included)... Normal [facility] Comment on above: Result Comment: Elec tronically Signed By: Deepa [facility]ITALMaia.mati\Date and Time Signed: 02/22/20 23:17 EDT [...] interactive video communications from my office using [employer] due to the restrictions of the COVID-19 pandemic. No physical exam was conducted other than those areas of the body visible to telecommunications with the patient located at [address] [place] [address], with no one else in attendance. If [...] Sister. Depres (more content not included)... Normal [facility] Comment on above: Result Comment: Elec tronically Signed By: Deepa [facility]ITALMaia\.br\Date and Time Signed: 02/11/20 14:46 EDT [...] interactive video communications from my office using [employer] due to the restrictions of the COVID-19 pandemic. No physical exam was conducted other than those areas of the body visible to telecommunications with the patient located at [address] [place], [place] [phone], with no one else in attendance. If [...] - Denies (more content not included)... Normal [facility] Comment on above: Result Comment: Elec tronically Signed By: Deepa [facility], Maia Ashley\.mati\Date and Time Signed: 02/11/20 [...] interactive video communications from my office using [employer] due to the restrictions of the COVID-19 pandemic. No physical exam was conducted other than those areas of the body visible to telecommunications with the patient located at [address] [place] [phone], with no one else in attendance. If [...] Tobacco F (more content not included)... Normal [facility] Comment on above: Result Comment: Elec tronically Signed By: Deepa [facility], Maia Montero.mati\Date and Time Signed: 01/29/20 [...] interactive video communications from my office using [employer] due to the restrictions of the COVID-19 pandemic. No physical exam was conducted other than those areas of the body visible to telecommunications with the patient located at [address] [place] [phone], with no one else in attendance. If [...] No. Yes, (more content not included)... Normal [facility] Comment on above: Result Comment: Elec tronically Signed By: Deepa [facility], Maia Ashley\.mati\Date and Time Signed: 01/29/20 [...] include drow (more content not included)... Normal [facility] Video Visit - Telehealtho n [...] interactive video communications from my office using [employer] due to the restrictions of the COVID-19 pandemic. No physical exam was conducted other than those areas of the body visible to telecommunications with the patient located at [address] [place] [phone], with no one else in attendance. If [...] Tobacco For (more content not included)... Normal [facility] Comment on above: Result Comment: Elec tronically Signed By: Deepa [facility], Maia Montero.mati\Date and Time Signed: 01/13/20 [...] drow (more content not included)... Normal [facility] Video Visit - Telehealtho n [...] interactive video communications from my office using [employer] due to the restrictions of the COVID-19 pandemic. No physical exam was conducted other than those areas of the body visible to telecommunications with the patient located at [address] [place], [place] [phone], with no one else in attendance. If [...] Use:. N (more content not included)... Normal [facility] Comment on above: Result Comment: Elec tronically Signed By: Deepa [facility], Maia Montero.mati\Date and Time Signed: 01/07/20 [...] interactive video communications from my office using [employer] due to the restrictions of the COVID-19 pandemic. No physical exam was conducted other than those areas of the body visible to telecommunications with the patient located at [address] [place] [address], with no one else in attendance. If [...] Father and (more content not included)... Normal [facility] Comment on above: Result Comment: Elec tronically Signed By: Deepa [facility]ITALMaia.mati\Date and Time Signed: 12/30/19 13:50 EDT [...] interactive video communications from my office using [employer] due to the restrictions of the COVID-19 pandemic. No physical exam was conducted other than those areas of the body visible to telecommunications with the patient located at [address] [place], [place] [phone], with no one else in attendance. If [...] Alcohol U (more content not included)... Normal [facility] Comment on above: Result Comment: Elec tronically Signed By: Deepa [facility], Maia Ashley\.mati\Date and Time Signed: 12/23/19 [...] include drow (more content not included)... Normal [facility] Video Visit - Telehealtho n [...] interactive video communications from my office using [employer] due to the restrictions of the COVID-19 pandemic. No physical exam was conducted other than those areas of the body visible to telecommunications with the patient located at [address] [place] [phone], with no one else in attendance. If [...] Daily, 5 (more content not included)... Normal [facility] Comment on above: Result Comment: Elec tronically Signed By: Deepa [facility] Valle.mati\Date and Time Signed: 12/04/19 09:42 EDT [...] rate, h (more content not included)... Normal [facility] Vital Signs Date Time Vital Sign Value Performing Clinician Facility 08-18-2023 14:24-0400 Body height 160.02 cm [facility] 08-18-2023 14:24-0400 Body mass index (BMI) [Ratio] 40.2 kg/m2 [facility] 08-18-2023 14:24-0400 Body temperature 98.4 [degF] [facility] 08-18-2023 14:24-0400 Body weight 103.02 kg [facility] 08-18-2023 14:24-0400 Diastolic blood pressure 81 mm[Hg] [facility] 08-18-2023 14:24-0400 Heart rate 101 /min [facility] 08-18-2023 14:24-0400 Respiratory rate 16 /min [facility] 08-18-2023 14:24-0400 SaO2% (BldA) [Mass fraction] 98 % [facility] 08-18-2023 14:24-0400 Systolic blood pressure 133 mm[Hg] [facility] 04-27-2023 16:30-0500 Body height 160.02 cm Sanaz Lockwood Other [facility] Other 04-27-2023 16:30-0500 Body mass index (BMI) [Ratio] 40.92 kg/m2 Sanaz Lockwood Other [facility] Other 04-27-2023 16:30-0500 Body temperature 98.2 [degF] Sanaz Lockwood Other [facility] Other 04-27-2023 16:30-0500 Body weight 104.78 kg Sanaz Lockwood Other [facility] Other 04-27-2023 16:30-0500 Respiratory rate 18 /min Sanaz Lockwood Other [employer] Other 04-27-2023 16:30-0500 SaO2% (BldA) [Mass fraction] 99 % Sanaz Lockwood Other [employer] Other 05-10-2022 14:45-0500 Body height 160.02 cm Kaylah Han Other [facility] Other 05-10-2022 14:45-0500 Body mass index (BMI) [Ratio] 38.97 kg/m2 Kaylah Lottault Other [employer] Other 05-10-2022 14:45-0500 Body temperature 99.3 [degF] Kaylah Lottault Other [employer] Other 05-10-2022 14:45-0500 Body weight 99.79 kg Kaylah Han Other [employer] Other 06-29-2019 22:40-0500 Pulse (Heart Rate) 84 /min [facility] 06-29-2019 22:40-0500 Pulse Oximetry 97 % [facility] 06-29-2019 22:35-0500 BP Diastolic 56 mm[Hg] [facility] 06-29-2019 22:35-0500 BP Systolic 100 mm[Hg] [facility] 06-29-2019 21:11-0500 BMI (Body Mass Index) 33.1 kg/m2 [facility] 06-29-2019 21:11-0500 Body Temperature 97.8 [degF] [facility] 06-29-2019 21:11-0500 Body weight 84.8 kg [facility] 06-29-2019 21:110500 Height 160.02 cm Kimberlyn Xie [facility] 06-29-2019 21:11-0500 Respiratory Rate 20 /min Kimberlyn Xie [facility] Encounters Encounter Date Encounter Type Care Provider Facility Start: 08-18-2023 End: 08-18-2023 ambulatory [facility] Work Phone: Start: 08-18-2023 End: 08-18-2023 Patient encounter procedure [facility] Work Phone: Start: 04-27-2023 End: 04-27-2023 ambulatory Sanaz Lockwood Other [employer] Other Start: 04-27-2023 Office outpatient visit 25 minutes Sanaz Lockwood [facility] Start: 05-10-2022 End: 05-10-2022 ambulatory Kaylah Han Other [employer] Other Start: 05-10-2022 Office outpatient ne w 20 minutes Kaylah Han [facility] Start: 04-27-2022 End: 04-27-2022 ambulatory KIMBERLYN XIE Facility:[facility] Start: 03-07-2022 End: 03-07-2022 ambulatory KIMBERLYN XIE Facility:[facility] Start: 09-23-[address] JAZIEL HILL Facility :[facility] Start: 06-29-2019 End: 06-29-2019 Emergency department patient visit Kimberlyn Xie [facility] Procedures Date Procedure Procedure Detail Performing Clinician Start: 08-18-2023 Quick Strep (POC) Plan of Treatment Date Care Activity Detail Author Patient Education Epinephrine (B y injection) Anaphylaxis (ED) General Allergic Reaction (ED) [facility] Patient referral [facility] Payers Date Payer Category Payer Unknown [id number] 1985 Unknown [id number] 1985 Unknown [id number] 1957 Self-pay [id number] 1957 Unknown [id number] Private Health Insurance [id number] Self-pay Self Pay [id number] Social History Date Type Detail Facility Start: 06-29-2019 End: 08-18-2023 Tobacco smoking status NHIS Smoker (finding) [facility] Start: 1985 Sex Assigned At Female F [facility] Sex Assigned At Sex Assigned At Bir th [place] [facility] Other Goals Date Patient Goal Desired Activity [...] condition. Mar, Sore throat (ICD-10 - J02.9) [place] [facility] Other 01-10-2023 Evaluation note* Encounter Date Diagnosis [...] weeks for the cough to go away [employer] Other 11-07-2022 NoteIndication: Abdominal pain. Comparison: None [...] Electronically authenticated by: SURJIT FREITAS Date: 2022-03-07 20:49[facility] NoteHPI Staff This visit was conducted via phone communications from my office due to the restrictions of the COVID-19 pandemic. No physical exam was conducted due to audio only communication with the patient located at [address] [place] [phone], with no one else. If it is determined that the patientshould be evaluated in person, the patient will be directed to the appropriate clinic or venue. Thepatient or their guardian verbally consented to this visit. Phone time was 15 minutes discussing health issues with counseling and coordination of care. Subjective Interval History/HPI Patient presents today for follow up via telehealth phone from [facility]. Patient started Latuda 20mg last evening with [...] anxiety, # 30 tab(s), Refills(s) 2, Pharmacy: [facility]/pharmacy #[id number], 161, cm, 12/23/19 10:18:00 EDT, Height/Length Dosing, 82, kg, 12/23/19 10:18:00 EDT, Weight Dosing Orders: lurasidone, 20 mg = 1 tab(s), Oral, Daily, with 350 calories; begin this dose first then progress to next dose of 40mg, X 1 week(s), # 7 tab(s), Refills(s) 0, Pharmacy: [facility]/pharmacy #[id number], 161, cm, 12/23/19 10:18:00 EDT, Height/Length Dosing, 82, kg, 08/24/20 10:... lurasidone, 40 mg = 1 tab(s), Oral, Daily, with 350 calories, # 30 tab(s), Refills(s) 1, Pharmacy: [facility]/pharmacy #[id number], 161, cm, 12/23/19 10:18:00 EDT, [...] (generalized anxiety disorder) Hidr (more content not included)...[facility] Result Comment: Electronically Signed By: Carlota RODRIGUEZ CNP\.br\Date and Time Signed: 03/19/20 14:27 [id number] NoteHPI Staff This visit was conducted via two-way, real-time interactive video communications from my office using [employer] due to the restrictions of the COVID-19 pandemic. No physical exam was conducted other than those areas of the body visible to telecommunications with the patient located at [address] [place] [address], with no one else in attendance. If [...] Ordered: TELEHEALTH Office Visit Level 3 Est 74282 General Treatment Plan Maintain medication regimen _Improve [...] Employed, 03/18/2019 Home/Environment Lani (more content not included)...[facility] Result Comment: Electronically Signed By: Carlota RODRIGUEZ CNP\harshil\Date and Time Signed: 03/05/20 13:32 [id number] NoteI Staff This visit was conducted via two-way, real-time interactive video communications from my office using [employer] due to the restrictions of the COVID-19 pandemic. No physical exam was conducted other than those areas of the body visible to telecommunications with the patient located at [address] [place] [phone], with no one else in attendance. If [...] anxiety, # 30 tab(s), Refills(s) 1, [id number] 161, cm, 12/23/19 10:18:00 EDT, Height/Length Dosing, 82, kg, 12/23/19 10:18:00 EDT, Weight Dosing alprazolam, 0.5 mg = 1 tab(s), Oral, TID, PRN for anxiety, # 30 tab(s), Refills(s) 1, [id number], 161, cm, 12/23/19 10:18:00 EDT, Height/Length Dosing, 82, kg, 12/23/19 10:18:00 EDT, Weight Dosing aripiprazole, See Instructions, 1.5 tab po qAM, # 30 tab(s), Refills(s) 2, Pharmacy: [facility] #[id number], 161, cm, 12/23/19 10:18:00 EDT, Height/Length Dosing, 82, kg, 12/23/19 10:18:00 EDT, Weight Dosing aripiprazole, See Instructions, 1 tab po qAM, # 30 tab(s), Refills(s) 5, [id number], 161, cm, 12/23/19 10:18:00 EDT, Height/Length Dosing, 82, kg, 12/23/19 10:18:00 EDT, Weight Dosing cyclobenzaprine, 10 mg = 1 tab(s), Oral, TID, PRN for spasm, # 30 tab(s), Refills(s) 1, [id number] 161, cm, 06/13/19 14:39:00 EST, Height/Length Measured, 82, kg, 06/13/19 14:39:00EST, Weight Measured cyclobenzaprine, 10 mg = 1 tab(s), Oral, TID, PRN for spasm, # 30 tab(s), Refills(s) 1, [id number] 161, cm, 12/23/19 10:18:00 EDT, Height/Length Dosing, 82, kg, 12/23/19 10:18:00 EDT, Weight Dosing General Treatment Plan Maintain medication regimen _Improve mood stability _Improve anxiety control _Improve social and interpersonal functioning Clinical Global Impression 62 Prognosis progressing Follow-up With When Contact Information Carlota RODRIGUEZ CNP In 4 weeks Additional Instructions: (more content not included)...[facility]:Result Comment: Electronically Signed By: Carlota RODRIGUEZ CNP\.br\Date and Time Signed: 01/27/20 22:35 [id number] NoteHPI Staff This visit was conducted via two-way, real-time interactive video communications from my office using [email or web address] due to the restrictions of the COVID-19 pandemic. No physical exam was conducted other than those areas of the body visible to telecommunications with the patient located at [address] [place] [address], with no one else in attendance. If [...] Ordered: TELEHEALTH Office Visit Level 3 Est 37545 General Treatment Plan Maintain medication regimen _Improve [...] Use:. Never Smokeless Tob (more content not included)...[facility] Hospital[facility]:Result Comment: Electronically Signed By: Carlota RODRIGUEZ CNP\.mati\Date and Time Signed: 01/13/20 09:11 [id number] NoteHPI Staff This visit was conducted via two-way, real-time interactive video communications from my office using [email or web address] due to the restrictions of the COVID-19 pandemic. No physical exam was conducted other than those areas of the body visible to telecommunications with the patient located at [address] [place] [address], with no one else in attendance. If [...] anxiety, # 30 tab(s), Refills(s) 1, Pharmacy: [facility]/pharmacy #[id number], 161, cm, 12/23/19 10:18:00 EDT, Height/Length Dosing, 82, kg, 12/23/19 10:18:00 EDT, Weight Dosing alprazolam, 0.5 mg = 1 tab(s), Oral, TID, PRN for anxiety, # 30 tab(s), Refills(s) 1, Pharmacy: [facility]/pharmacy #[id number], 161, cm, 06/13/19 14:39:00 EST, [...] Allergies Bactrim Social History (more content not included)...[facility] Hospital[facility]:Result Comment: Electronically Signed By: Carlota RODRIGUEZ CNP\.br\Date and Time Signed: 12/23/19 16:37 [id number] NoteI Staff This visit was conducted via two-way, real-time interactive video communications from my office using [email or web address] due to the restrictions of the COVID-19 pandemic. No physical exam was conducted other than those areas of the body visible to telecommunications with the patient located at [address] [place] [address], with no one else in attendance. If [...] q24hr, # 30 tab(s), Refills(s) 2, Pharmacy: [facility]/pharmacy #[id number],161, cm, 06/13/19 14:39:00 EST, Height/Length Measured, 82, kg, 06/13/19 14:39:00 EST, Weight Measured cyclobenzaprine, 10 mg = 1 tab(s), Oral, TID, PRN for spasm, # 30 tab(s), Refills(s) 1, Pharmacy: [facility]/pharmacy #[id number], 161, cm, 06/13/19 14:39:00 EST, [...] Employment/School Employed, 03/18/2019 Home/Environment (more content not included)...[facility] Hospital[facility] above:Result Comment: Electronically Signed By: Carlota RODRIGUEZ CNP\Date and Time Signed: 12/02/19 16:38 EDTChief complaint+Reason for visit Narrative* Chief Complaint Nausea, diarrhea, fe zhou Reason for Visit Contact with and (louis spected) exposure to covid-19 Sore throat [facility] Work Phone: Evaluation note* Diagnosis Onset Date Resolution Status Contact with and (suspected) exposure to covid-19 noneactive Sore throat noneactive [facility] Work Phone: History general Narrative - Reported* Type Description Date Medical History Bipolar Surgical History appendectomy Surgical History x 3 Hospitalization History see above surgical histo ry [facility] Other Advance Directives Advance Directive Response Recorded [...] may need to be seen by an accountant assistant if you have other events like this without definite egg exposure. Summary Purpose Family History Relationship Condition Age at Onset Recorded Date/T alo father Diabetes mellitus Unknown Hypertension Unknown Additional Source Comments INFORMATION SOURCE (unrecogn ized section and content) DATE CREATED AUTHOR 10/30/2020 [facility] DATE CREATED AUTHOR AUTHOR'S ORGANIZ ATION 04/29/2022 [facility] REASON FOR VISIT (unrecogniz ed [...] BE BASED ON THE PRIMARY CLINICAL RECORDS. [facility] [employer] provides no warranty or guarantee of the accuracy or completeness of information in this document.
[2023-11-30 17:22] LABS: Basophils Percent Auto 0.2 % (0.2-2.0); Eosinophils Absolute Auto 0.1 10^3/uL (0.0-0.7); Eosinophils Percent Auto 0.4 % (0.9-7.0); Hematocrit 41.5 % (36.0-48.0); Hemoglobin 13.8 g/dL (12.0-16.0); Immature Granulocytes Abs Auto 0.06 10^3/uL (0.00-0.03); Immature Granulocytes Pct Auto 0.5 % (0.0-0.5); Lymphocytes Absolute Auto 2.8 10^3/uL (1.2-3.8); Lymphocytes Percent Auto 21.8 % (20.5-60.0); Mean Corpuscular HGB Conc 33.3 g/dL (29.9-35.2); Mean Corpuscular Hemoglobin 30.9 pg (26.7-34.0); Monocytes Absolute Auto 0.6 10^3/uL (0.3-0.8); Monocytes Percent Auto 4.7 % (1.7-12.0); Neutrophils Absolute Auto 9.2 10^3/uL (1.4-6.5); Neutrophils Percent Auto 72.4 % (43.0-75.0); Platelet Count 338 10^3/uL (150-450); Red Blood Count 4.46 10^6/uL (4.20-5.40); Red Cell Distribution Width 12.8 % (11.0-15.0); White Blood Count 12.7 10^3/uL (4.0-11.0)
[2023-11-30 17:27] LABS: BOX Test Sent Out Y
[2023-11-30 17:34] LABS: Estimated Average Glucose 97 mg/dL
[2023-12-02 06:10] LABS: HBsAg Screen Negative (Negative); HCV Ab Non Reactive (Non Reactive); HIV Ab/p24 Ag Screen Non Reactive (Non Reactive)
[2023-12-02 07:10] LABS: Rubella Antibodies, IgG <0.90 index (Immune >0.99)
[2023-12-02 10:09] LABS: Rapid Plasma Reagin, Quant Non Reactive titer (NonRea<1:1)
== END 2023-11-30 16:29 | disposition home or self-care (01) ==
LOC: LAB 16:29
PROVIDERS: PCP Nurse Practitioner Family; Visit Provider Obstetrics & Gynecology
DX: Z36.0 Encounter for antenatal screening for chromosomal anomalies (principal); N92.6 Irregular menstruation, unspecified
CPT/HCPCS: 36415; 83036; 85025; 86592; 86762; 86803; 86850; 86900; 86901; 87086; 87150; 87186; 87340; 87389

== ENCOUNTER 2023-12-29 11:45 | Emergency (ER) | payer BC, SELFPAY ==
[2023-12-29 11:52] VITALS: BP 113/73; PULSE 78; TEMP 37.1; O2SAT 100; BMI 39.0
--- NOTE | 2023-12-29 12:22 | US_ITS ---
[place] [address] Patient Name: PROSPER RUIZ MRN: [id number] date: 1985 Sex: F Assigned Patient Location: ER Current Patient Location: ER Accession/Order Number: [id number] Exam Date: 12/29/2023 12:49 Report Date: 12/29/2023 13:39 At the request of: KAYLAH NARAYANAN Procedure: US OB >= 14 weeks Fetus PROCEDURE: US OB >= 14 weeks Fetus, 12/29/2023 12:49 PM EDT CLINICAL INDICATIONS: Vaginal bleeding in , symptoms for one day 6 para 3 Expected gestational age: 14 weeks 3 days Expected LISA: 06/25/2024 COMPARISON: 11/24/2023 TECHNIQUE: Limited second trimester obstetric sonogram, grayscale, color evaluation. FINDINGS: Single living intrauterine identified. Intrauterine gestational sac, fetus, body, cardiac activity noted. Heart rate 143 bpm. crown-rump length: 8.31 cm Sonographic gestational age: 14 weeks 1 day +/- 1 week 2 days Sonographic LISA: 06/27/2024 Anterior placenta, no sign of hemorrhage. Maternal right ovary: Not identified. Maternal left ovary: 4.3 x 2.2 x 2.6 cm volume 13 mL. Intact vascularity on color assessment. No focal abnormality. US/US OB >= 14 weeks Fetus IMPRESSION: 1. Single living intrauterine , sonographic gestational age of 14 weeks 1 day +/- 1 week 2 days 2. Sonographic LISA 06/27/2024 3. Anterior placenta, no sign of hemorrhage 4. Nonvisualization maternal right ovary 5. No sonographic sign of maternal left adnexa pathology. Electronically authenticated by: EAN FIORE Date: 12/29/2023 13:39
--- NOTE | 2023-12-29 12:22 | ECG_ITS ---
[facility] Test Date: 2023-12-29 Pat Name: PROSPER RUIZ Department: Room: - Gender: Female Ordering Box Operator: : [id number] Requested By: RADHA XIE Order Number: [id number] Reading MD: ELVIN VALLE Measurements Intervals Wood Rate: 71 P: 43 NH: 140 QRS: 37 QRSD: 72 T: 43 QT: 370 QTc: 393 Interpretive Statements 1100 Sinus rhythm 1102 Sinus arrhythmia 8102 Low QRS voltage in chest leads 9120 atypical ECG Compared to ECG 11/02/2019 15:20:07 Low QRS voltage now present Short NH interval no longer present Electronically Signed On 12-29-2023 18:25:41 EDT by ELVIN VALLE
--- OUTSIDE RECORDS SUMMARY | 2023-12-29 12:28 | XMS_ITS | CCD ---
Author Organization [facility] Inform ion Partnership [facility] Care Team Providers Care Medical Information Officer Name Role Phone Kimberlyn Xie Primary Care Provider Unavail able KIMBERLYN XIE Primary Care Unavailable LEONARDO, DR HECK Admitting Unavailable LEONARDO, DR HECK Attending Unavailable LEONARDO, DR HECK Consulting Unavailable PACO LONGORIA Consulting Unavailable ROCIO CHAU Consulting Unavailable KIMBERLYN XIE Primary Care Unavailable EMA KEATING Admitting Unavailable EMA KEATING Attending Unavailable SURJIT FREITAS Consulting Unavailable KOLBY MAYEN Consulting Unavailable DR JAZIEL HILL Admitting Unavailable SERGIO, DR SHERIFF Attending Unavailable KIMBERLYN XIE Primary Care Unavailable Kaylah Han Unavailable Sanaz Lockwood Unavailable MAKENZIE SO Attending Unavailable Unavailable Unavailable Unavailable Allergies Allergy Classification Reported Allergen(s) Allergy Type Date of Onset Reaction(s) Facility (2 sources) egg extract Drug Allergy 08-18-19 24 Vomiting [facility] (2 sources) Sulfamethoxazole Drug Allergy 08-18-19 24 Unknown Reaction, Unknown Reaction, [facility] (2 sources) Trimethoprim Drug Allergy 08-18-19 24 Unknown Reaction, Unknown Reaction, [facility] (2 sources) Fish Containing Products Propensity to adverse reactions 08-18-19 24 Difficulty Breathing [facility] (1 source) Sulfamethoxazole / Trimethoprim Drug Allergy 02-04-20 13 [facility] (2 sources) Sulfamethoxazole / Trimethoprim Drug Allergy [facility] OYE! Other Medications Current Medications Medication Drug Class(es) Dates Sig (Normalized) Sig (Original) [id number] 200 actuat albuterol 0.09 mg/actuat metered dose [...] oral tablet (1 source) alpha-Adrenergic Agonist, Uncompetitive U-cjrlhu-A-asparta te Receptor Antagonist, Sigma-1 Agonist Start: 04-27-2023 take 4 tablets by mouth every twenty-four hours as needed Capmist DM 60-15-400 MG as needed Orally every 4-6 hours as needed, max 4 tablets in 24 hours for 5 days Mar, Active [id number] 0.3 ml EPINEPHrine 1 mg/ml auto-injector (2 [...] Hcl Active 8 MG PO Q8H 21 August 18, 2023 12:00am Start: 05-10-2022 take [...] Active 60 MG Oral Every morning 9 June 29, 2019 10:18pm administer with food [...] mg oral tablet (2 sources) Corticosteroid Start: methylPREDNISolone 4 MG as directed Orally Once [...] 03-09-2022 Episodic Other aftercare (1 source) Other terminal carman (current) drug therapy; 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: [OTH INTERMEDIATE CURRENT DRUG THERAPY] Onset: 04-29-2022 Episodic Other [...] Sanaz Lockwood on 08-18-2023 Quick Strep (POC) [facility] COVID + FLU Quick Testingon 04-27-2023 SARS-CoV-2 (COVID-19) RNA J LUIS+probe Ql (Unsp spec) Negative [facility] Other COVID + FLU Quick Testing Negative [facility] Other Quick Strepon 04-27-2023 S. pyogenes Org specific cx Ql (Throat) Negative [facility] Other Quick Strep [facility] Other COVID/FLU/RSV RT-PCRon 05-10 SARS-CoV-2 (COVID-19) RNA J LUIS+probe Ql (Unsp spec) Negative [facility] Other COVID/FLU/RSV RT-PCR Positive [facility] Other COVID/FLU/RSV RT-PCR Negative [facility] Other CBC AUTO DIFFon 04-27-2022 BASO # 0.0 103/ul Normal 0.0-0.1 [facility] Comment on above: Performed By: #### C BC #### [facility] [address] [place] [address] Dr. Dee Humphrey Basophils/100 WBC (Bld) 0.2 % Normal 0.2-2.0 [facility] Comment on above: Performed By: #### C BC #### [facility] [address] [place] [address] Dr. Dee Humphrey EO # 0.1 103/ul Normal 0.0-0.7 [facility] Comment on above: Performed By: #### C BC #### [facility] [address] [place] [address] Dr. Dee Humphrey Eosinophils/100 WBC (Bld) 0.6 % Critically low 0.9-7.0 [facility] Comment on above: Performed By: #### C BC #### [facility] [address] [place] [address] Dr. Dee Humphrey Erythrocyte distribution width (RBC) [Ratio] 14.1 % Normal 11.0-15.0 [facility] Comment on above: Performed By: #### C BC #### [facility] [address] [place] [address] Dr. Dee Humphrey Hematocrit (Bld) [Volume fraction] 37.1 % Normal 36.0-48.0 [facility] Comment on above: Performed By: #### C BC #### [facility] [address] [place] [address] Dr. Dee Humphrey Hemoglobin (Bld) [Mass/Vol] 12.4 g/dL Normal 12.0-16.0 [facility] Comment on above: Performed By: #### C BC #### [facility] [address] [place] [address] Dr. Dee Humphrey IG # 0.06 10e3/ul Critically high 0.00-0.03 [facility] Comment on above: Performed By: #### C BC #### [facility] [address] [place] [address] Dr. Dee Humphrey IG % 0.5 % Normal 0.0-0.5 [facility] Comment on above: Performed By: #### C BC #### [facility] [address] [place] [address] Dr. Dee Humphrey LYMPH # 3.7 103/ul Normal 1.2-3.8 [facility] Comment on above: Performed By: #### C BC #### [facility] [address] [place] [address] Dr. Dee Humphrey Lymphocytes/100 WBC (Bld) 28.7 % Normal 20.5-60.0 [facility] Comment on above: Performed By: #### C BC #### [facility] [address] [place] [address] Dr. Dee Humphrey MANUAL DIFF REQ NO Normal [facility] Comment on above: Performed By: #### C BC #### [facility] [address] [place] [address] Dr. Dee Humphrey MCH (RBC) [Entitic mass] 30.2 pg Normal 26.7-34.0 [facility] Comment on above: Performed By: #### C BC #### [facility] [address] [place] [address] Dr. Dee Humphrey MCHC (RBC) [Mass/Vol] 33.4 g/dL Normal 29.9-35.2 [facility] Comment on above: Performed By: #### C BC #### [facility] [address] [place] [address] Dr. Dee Humphrey MCV (RBC) [Entitic vol] 90.5 fL Normal 81.0-99.0 [facility] Comment on above: Performed By: #### C BC #### [facility] [address] [place] [address] Dr. Dee Humphrey MONO # 0.7 103/ul Normal 0.3-0.8 [facility] Comment on above: Performed By: #### C BC #### [facility] [address] [place] [address] Dr. Dee Humphrey Monocytes/100 WBC (Bld) 5.0 % Normal 1.7-12.0 [facility] Comment on above: Performed By: #### C BC #### [facility] [address] [address] [address] Dee Humphrey NEUT # 8.5 103/ul Critically high 1.4-6.5 [facility] Comment on above: Performed By: #### C BC #### [facility] [address] [address] [address] Dee Humphrey Neutrophils/100 WBC (Bld) 65.0 % Normal 43.0-75.0 [facility] Comment on above: Performed By: #### C BC #### [facility] [address] [place] [address] Dr. Dee Humphrey Platelet mean volume (Bld) [Entitic vol] 9.6 fL Normal 9.5-13.5 [facility] Comment on above: Performed By: #### C BC #### [facility] [address] [place] [address] Dr. Dee Humphrey PLT 317 103/ul Normal 150-450 [facility] Comment on above: Performed By: #### C BC #### [facility] [address] [address] [address] Dee Humphrey RBC 4.10 106/ul Critically low 4.20-5.40 [facility] Comment on above: Performed By: #### C BC #### [facility] [address] [place], [place] [id number] Dr. Dee Humphrey WBC 13.1 103/ul Critically high 4.0-11.0 [facility] Comment on above: Performed By: #### C BC #### [facility] [address] [place] [address] ABD/PELVIS WO CONon [...] ROCIO CHAU Date: 2022-04-27 20:24 Normal [facility] URINE PROFILEon 2 Bilirubin Ql (U) Negative Normal NEGATIVE [facility] Comment on above: Performed By: #### P REGU, ERUR #### [facility] [address] [place] [address] Dr. Dee Humphrey Clarity (U) CLEAR Normal CLEAR [facility] Comment on above: Performed By: #### P REGU, ERUR #### [facility] [address] [place] [address] Dr. Dee Humphrey Color (U) YELLOW Normal YELLOW [facility] Comment on above: Performed By: #### P REGU, ERUR #### [facility] [address] [place] [address] Dr. Dee Humphrey ERUSOHA A micrscopic examination will be performed if indicated. Normal [facility] Comment on above: Performed By: #### P REGU, ERUR #### [facility] [address] [place] [address] Dr. Dee Humphrey Glucose Ql (U) Negative Normal NEGATIVE [facility] Comment on above: Performed By: #### P REGU, ERUR #### [facility] [address] [place] [address] Dr. Dee Humphrey Hemoglobin Ql (U) Negative Normal NEGATIVE [facility] Comment on above: Performed By: #### P REGU, ERUR #### [facility] [address] [address] [address] Dee Humphrey Ketones Ql (U) Negative Normal NEGATIVE [facility] Comment on above: Performed By: #### P REGU, ERUR #### [facility] [address] [address] [address] Dee Humphrey LEUKOCYTES Negative Normal NEGATIVE [facility] Comment on above: Performed By: #### P REGU, ERUR #### [facility] [address] [address] [address] Dee Humphrey Nitrite Ql (U) Negative Normal NEGATIVE [facility] Comment on above: Performed By: #### P REGU, ERUR #### [facility] [address] [place] [address] Dr. Dee Humphrey pH (U) 5.5 [pH] Normal 5-9 [facility] Comment on above: Performed By: #### P REGU, ERUR #### [facility] [address] [address] [address] Dee Humphrey SPEC GRAVITY >=1.030 Abnormal 1.005-<=1.[address] [place] [address] Comment on above: Performed By: #### P REGU, ERUR #### [facility] [address] [place] [address] Dr. Dee Humphrey UA PROTEIN Negative Normal NEGATIVE/ TRACE [facility] Comment on above: Performed By: #### P REGU, ERUR #### [facility] [address] [address] [address] Dee Humphrey UR MICRO IND NOT INDICATED Normal [facility] Comment on above: Performed By: #### P REGU, ERUR #### [facility] [address] [place] [address] Dr. Dee Humphrey Urobilinogen Qn (U) 0.2 {Blanca'U}/dL Normal 0.2 - 1. 0 [facility] Comment on above: Performed By: #### P REGU, ERUR #### [facility] [address] [place] [address] Dr. Dee Humphrey LIPASEon 04-27-2022 Lipase [Catalytic activity/Vol] 94.0 U/L Normal 73.0-393.0 [facility] Comment on above: Performed By: #### L IPA, CMP #### [facility] [address] [place] [address] Dr. Dee Humphrey URon 04-27-2022 , QUAL Negative Normal NEGATIVE [facility] Comment on above: Performed By: #### P REGU, ERUR #### [facility] [address] [place] [address] Dr. Dee Humphrey PROF 14(COMP METB)on 022 Albumin [Mass/Vol] 3.9 g/dL Normal 3.4-5.0 [facility] Comment on above: Performed By: #### L IPA, CMP #### [facility] [address] [place] [address] Dr. Dee Humphrey Albumin/Globulin [Mass ratio] 1.0 {ratio} Normal [facility] Comment on above: Performed By: #### L IPA, CMP #### [facility] [address] [place] [address] Dr. Dee Humphrey ALP [Catalytic activity/Vol] 87 U/L Normal 46-116 [facility] Comment on above: Performed By: #### L IPA, CMP #### [facility] [address] [place] [address] Dr. Dee Humphrey ALT [Catalytic activity/Vol] 31 U/L Normal 14-59 [facility] Comment on above: Performed By: #### L IPA, CMP #### [facility] [address] [place] [address] Dr. Dee Humphrey Anion gap [Moles/Vol] 10.8 mmol/L Normal [facility] Comment on above: Performed By: #### L IPA, CMP #### [facility] [address] [place] [address] Dr. Dee Humphrey AST [Catalytic activity/Vol] 17 U/L Normal 15-37 [facility] Comment on above: Performed By: #### L IPA, CMP #### [facility] [address] [place] [address] Dr. Dee Humphrey Bilirubin [Mass/Vol] 0.1 mg/dL Critically low 0.2-1.0 [facility] Comment on above: Performed By: #### L IPA, CMP #### [facility] [address] [place] [address] Dr. Dee Humphrey Calcium [Mass/Vol] 8.9 mg/dL Normal 8.5-10.1 [facility] Comment on above: Performed By: #### L IPA, CMP #### [facility] [address] [place] [address] Dr. Dee Humphrey Chloride [Moles/Vol] 103 mmol/L Normal 98-107 [facility] Comment on above: Performed By: #### L IPA, CMP #### [facility] [address] [place] [address] Dr. Dee Humphrey CO2 [Moles/Vol] 26.9 mmol/L Normal 21.0-32.0 [facility] Comment on above: Performed By: #### L IPA, CMP #### [facility] [address] [place] [address] Dr. Dee Humphrey Creatinine [Mass/Vol] 0.80 mg/dL Normal 0.55-1.02 [facility] Comment on above: Performed By: #### L IPA, CMP #### [facility] [address] [place] [address] Dr. Dee Humphrey EGFR-AF CONGOLESE >60 Normal >=60 [facility] Comment on above: Performed By: #### L IPA, CMP #### [facility] [address] [place] [address] Dr. Dee Humphrey EGFR-NON AF CONGOLESE >60 Normal >=60 [facility] Comment on above: Performed By: #### L IPA, CMP #### [facility] [address] [place] [address] Dr. Dee Humphrey Globulin (S) [Mass/Vol] 3.9 g/dL Normal [facility] Comment on above: Performed By: #### L IPA, CMP #### [facility] [address] [address] [address] Dee Humphrey Glucose [Mass/Vol] 96 mg/dL Normal 74-106 [facility] Comment on above: Performed By: #### L IPA, CMP #### [facility] [address] [place] [address] Dr. Dee Humphrey Potassium [Moles/Vol] 3.7 mmol/L Normal 3.5-5.1 [facility] Comment on above: Performed By: #### L IPA, CMP #### [facility] [address] [place] [address] Dr. Dee Humphrey Protein [Mass/Vol] 7.8 g/dL Normal 6.4-8.2 [facility] Comment on above: Performed By: #### L IPA, CMP #### [facility] [address] [place] [address] Dr. Dee Humphrey Sodium [Moles/Vol] 137 mmol/L Normal 136-145 [facility] Comment on above: Performed By: #### L IPA, CMP #### [facility] [address] [place] [address] Dr. Dee Humphrey Urea nitrogen [Mass/Vol] 13.0 mg/dL Normal 7.0-18.0 [facility] Comment on above: Performed By: #### L IPA, CMP #### [facility] [address] [place] [address] Dr. Dee Humphrey Urea nitrogen/Creatinine [Mass ratio] 16.2 mg/mg Normal [facility] Comment on above: Performed By: #### L IPA, CMP #### [facility] [address] [place] [address] Dr. Dee Humphrey CBC AUTO DIFFon 03-07-2022 BASO # 0.0 103/ul Normal 0.0-0.1 [facility] Comment on above: Performed By: #### C BC #### [facility] [address] [place] [address] Dr. Dee Humphrey Basophils/100 WBC (Bld) 0.3 % Normal 0.2-2.0 [facility] Comment on above: Performed By: #### C BC #### [facility] [address] [place] [address] Dr. Dee Humphrey EO # 0.1 103/ul Normal 0.0-0.7 [facility] Comment on above: Performed By: #### C BC #### [facility] [address] [place] [address] Dr. Dee Humphrey Eosinophils/100 WBC (Bld) 0.7 % Critically low 0.9-7.0 [facility] Comment on above: Performed By: #### C BC #### [facility] [address] [place] [address] Dr. Dee Humphrey Erythrocyte distribution width (RBC) [Ratio] 13.0 % Normal 11.0-15.0 [facility] Comment on above: Performed By: #### C BC #### [facility] [address] [place] [address] Dr. Dee Humphrey Hematocrit (Bld) [Volume fraction] 39.2 % Normal 36.0-48.0 [facility] Comment on above: Performed By: #### C BC #### [facility] [address] [place] [address] Dr. Dee Humphrey Hemoglobin (Bld) [Mass/Vol] 13.2 g/dL Normal 12.0-16.0 [facility] Comment on above: Performed By: #### C BC #### [facility] [address] [place] [address] Dr. Dee Humphrey IG # 0.05 10e3/ul Critically high 0.00-0.03 [facility] Comment on above: Performed By: #### C BC #### [facility] [address] [place] [address] Dr. Dee Humphrey IG % 0.5 % Normal 0.0-0.5 [facility] Comment on above: Performed By: #### C BC #### [facility] [address] [place] [address] Dr. Dee Humphrey LYMPH # 4.2 103/ul Critically high 1.2-3.8 [facility] Comment on above: Performed By: #### C BC #### [facility] [address] [place] [address] Dr. Dee Humphrey Lymphocytes/100 WBC (Bld) 43.1 % Normal 20.5-60.0 [facility] Comment on above: Performed By: #### C BC #### [facility] [address] [place] [address] Dr. Dee Humphrey MANUAL DIFF REQ NO Normal [facility] Comment on above: Performed By: #### C BC #### [facility] [address] [place] [address] Dr. Dee Humphrey MCH (RBC) [Entitic mass] 30.5 pg Normal 26.7-34.0 [facility] Comment on above: Performed By: #### C BC #### [facility] [address] [place] [address] Dr. Dee Humphrey MCHC (RBC) [Mass/Vol] 33.7 g/dL Normal 29.9-35.2 [facility] Comment on above: Performed By: #### C BC #### [facility] [address] [place] [address] Dr. Dee Humphrey MCV (RBC) [Entitic vol] 90.5 fL Normal 81.0-99.0 [facility] Comment on above: Performed By: #### C BC #### [facility] [address] [place] [address] Dr. Dee Humphrey MONO # 0.4 103/ul Normal 0.3-0.8 [facility] Comment on above: Performed By: #### C BC #### [facility] [address] [place] [address] Dr. Dee Humphrey Monocytes/100 WBC (Bld) 4.4 % Normal 1.7-12.0 [facility] Comment on above: Performed By: #### C BC #### [facility] [address] [place] [address] Dr. Dee Humphrey NEUT # 4.9 103/ul Normal 1.4-6.5 [facility] Comment on above: Performed By: #### C BC #### [facility] [address] [place] [address] Dr. Dee Humphrey Neutrophils/100 WBC (Bld) 51.0 % Normal 43.0-75.0 [facility] Comment on above: Performed By: #### C BC #### [facility] [address] [place] [address] Dr. Dee Humphrey Platelet mean volume (Bld) [Entitic vol] 9.6 fL Normal 9.5-13.5 [facility] Comment on above: Performed By: #### C BC #### [facility] [address] [place] [address] Dr. Dee Humphrey PLT 364 103/ul Normal 150-450 [facility] Comment on above: Performed By: #### C BC #### [facility] [address] [place] [address] Dr. Dee Humphrey RBC 4.33 106/ul Normal 4.20-5.40 [facility] Comment on above: Performed By: #### C BC #### [facility] [address] [place] [address] Dr. Dee Humphrey WBC 9.7 103/ul Normal 4.0-11.0 [facility] Comment on above: Performed By: #### C BC #### [facility] [address] [place] [address] Dr. Dee Humphrey LACTATE/LACTIC ACIDon 2021 Lactate [Moles/Vol] 1.1 mmol/L Normal 0.4-1.9 [facility] Comment on above: Performed By: #### P REGU, ERUR #### [facility] [address] [place] [address] Dr. Dee Humphrey LIPASEon 03-07-2022 Lipase [Catalytic activity/Vol] 79.0 U/L Normal 73.0-393.0 [facility] Comment on above: Performed By: #### C MP, LIPA #### [facility] [address] [place] [address] Dr. Dee Humphrey PROF 14(COMP METB)on 022 Albumin [Mass/Vol] 3.8 g/dL Normal 3.4-5.0 [facility] Comment on above: Performed By: #### C MP, LIPA #### [facility] [address] [address] [address] Dee Humphrey Albumin/Globulin [Mass ratio] 0.9 {ratio} Normal [facility] Comment on above: Performed By: #### C MP, LIPA #### [facility] [address] [address] [address] Dee Humphrey ALP [Catalytic activity/Vol] 80 U/L Normal 46-116 [facility] Comment on above: Performed By: #### C MP, LIPA #### [facility] [address] [address] [address] Dee Humphrey ALT [Catalytic activity/Vol] 27 U/L Normal 14-59 [facility] Comment on above: Performed By: #### C MP, LIPA #### [facility] [address] [address] [address] Dee Humphrey Anion gap [Moles/Vol] 9.5 mmol/L Normal [facility] Comment on above: Performed By: #### C MP, LIPA #### [facility] [address] [address] [address] Dee Humphrey AST [Catalytic activity/Vol] 13 U/L Critically low 15-37 [facility] Comment on above: Performed By: #### C MP, LIPA #### [facility] [address] [address] [address] Dee Humphrey Bilirubin [Mass/Vol] 0.1 mg/dL Critically low 0.2-1.0 [facility] Comment on above: Performed By: #### C MP, LIPA #### [facility] [address] [address] [address] Dee Humphrey Calcium [Mass/Vol] 9.0 mg/dL Normal 8.5-10.1 [facility] Comment on above: Performed By: #### C MP, LIPA #### [facility] [address] [address] [address] Dee Humphrey Chloride [Moles/Vol] 103 mmol/L Normal 98-107 [facility] Comment on above: Performed By: #### C MP, LIPA #### [facility] [address] [address] [address] Dee Humphrey CO2 [Moles/Vol] 27.1 mmol/L Normal 21.0-32.0 [facility] Comment on above: Performed By: #### C MP, LIPA #### [facility] [address] [address] [address] Dee Humphrey Creatinine [Mass/Vol] 0.86 mg/dL Normal 0.55-1.02 [facility] Comment on above: Performed By: #### C MP, LIPA #### [facility] [address] [place] [address] Dr. Dee Humphrey EGFR-AF CONGOLESE >60 Normal >=60 [facility] Comment on above: Performed By: #### C MP, LIPA #### [facility] [address] [place] [address] Dr. Dee Humphrey EGFR-NON AF CONGOLESE >60 Normal >=60 [facility] Comment on above: Performed By: #### C MP, LIPA #### [facility] [address] [place] [address] Dr. Dee Humphrey Globulin (S) [Mass/Vol] 4.1 g/dL Normal [facility] Comment on above: Performed By: #### C MP, LIPA #### [facility] [address] [address] [address] Dee Humphrey Glucose [Mass/Vol] 99 mg/dL Normal 74-106 [facility] Comment on above: Performed By: #### C MP, LIPA #### [facility] [address] [address] [address] Dee Humphrey Potassium [Moles/Vol] 3.6 mmol/L Normal 3.5-5.1 [facility] Comment on above: Performed By: #### C MP, LIPA #### [facility] [address] [address] [address] Dee Humphrey Protein [Mass/Vol] 7.9 g/dL Normal 6.4-8.2 [facility] Comment on above: Performed By: #### C MP, LIPA #### [facility] [address] [address] [address] Dee Humphrey Sodium [Moles/Vol] 136 mmol/L Normal 136-145 [facility] Comment on above: Performed By: #### C MP, LIPA #### [facility] [address] [address] [address] Dee Humphrey Urea nitrogen [Mass/Vol] 12.0 mg/dL Normal 7.0-18.0 [facility] Comment on above: Performed By: #### C MP, LIPA #### [facility] [address] [address] [address] Dee Humphrey Urea nitrogen/Creatinine [Mass ratio] 14.0 mg/mg Normal [facility] Comment on above: Performed By: #### C MP, LIPA #### [facility] [address] [address] [address] Dee Humphrey Consent for COVID Vaccineon 08-09-2020 SARS-CoV-2 (COVID-19) RNA J LUIS+probe Ql (Unsp spec) [id number] .[id number]:127 Normal [facility] Consent for Treatmenton 07-30 Consent for Treatment [id number] .[id number]:127 Normal [facility] Coding Summary.on 08-07-2020 Coding Summary. CODING DATE: 08/07/2020 FINAL [facility] STATUS: PAYOR: Luzma APC DESCRIPTION [id number] [...] Paredes Date Saved: 08/07/2020 02:46 pm Normal [facility] Ambulatory Clinical Summaryo n 03-25-2020 Ambulatory Clinical Summary {[id number] Normal [facility] Patient Educationon 03-19-20 Patient Education lurasidone (loo JOAO i done) [...] ? an antiviral such as ritonavir; ? Endy's wort; or ? seizure medicine such as [...] irritable, agitate (more content not included)... Normal [facility] Video Visit - Telehealtho n 02-23-2020 [...] interactive video communications from my office using Haload due to the restrictions of the COVID-19 pandemic. No physical exam was conducted other than those areas of the body visible to telecommunications with the patient located at [address] [place] [address], with no one else in attendance. If [...] Stopped age (more content not included)... Normal [facility] Comment on above: Result Comment: Elec tronically Signed By: Deepa [facility], Maia Ashley\.br\Date and Time Signed: 02/22/20 23:17 EDT Video [...] interactive video communications from my office using DeNA due to the restrictions of the COVID-19 pandemic. No physical exam was conducted other than those areas of the body visible to telecommunications with the patient located at [address] [place] [address], with no one else in attendance. If [...] Sister. Depres (more content not included)... Normal [facility] Comment on above: Result Comment: Elec tronically Signed By: Deepa [facility]ia.amti\Date and Time Signed: 02/11/20 14:46 EDT Video [...] interactive video communications from my office using DeNA due to the restrictions of the COVID-19 pandemic. No physical exam was conducted other than those areas of the body visible to telecommunications with the patient located at [address] [place], [place] [phone], with no one else in attendance. If [...] - Denies (more content not included)... Normal [facility] Comment on above: Result Comment: Elec tronically Signed By: Deepa [facility], Maia Ashley\.mati\Date and Time Signed: 02/11/20 14:37 [...] interactive video communications from my office using DeNA due to the restrictions of the COVID-19 pandemic. No physical exam was conducted other than those areas of the body visible to telecommunications with the patient located at [address] [place] [phone], with no one else in attendance. If [...] Tobacco F (more content not included)... Normal [facility] Comment on above: Result Comment: Elec tronically Signed By: Deepa [facility].mati\Date and Time Signed: 01/29/20 21:44 EDT Video [...] interactive video communications from my office using DeNA due to the restrictions of the COVID-19 pandemic. No physical exam was conducted other than those areas of the body visible to telecommunications with the patient located at [address] [place], [place] [phone], with no one else in attendance. If [...] treatment: Counseling. Household tobacco concerns: No. Yes, 09 (more content not included)... Normal [facility] Comment on above: Result Comment: Elec tronically Signed By: Deepa [facility], Maia Montero.mati\Date and Time Signed: 01/29/20 21:38 EDT Patient Educationon 01-28-20 Patient Education aripiprazole (AR i PIP ra zole) Abilify, Abilify Discmelt What is the most important information [...] drow (more content not included)... Normal [facility] Video Visit - Telehealtho n 01-13-2020 Video [...] interactive video communications from my office using DeNA due to the restrictions of the COVID-19 pandemic. No physical exam was conducted other than those areas of the body visible to telecommunications with the patient located at [address] [place] [phone], with no one else in attendance. If [...] Tobacco For (more content not included)... Normal [facility] Comment on above: Result Comment: Judith mckinneyally Signed By: Deepa [facility].mati\Date and Time Signed: 01/13/20 09:40 EDT Patient Educationon 01-13-20 Patient Education aripiprazole (AR i PIP ra welsh) Say Lerma What is the most [...] include drow (more content not included)... Normal [facility] Video Visit - Telehealtho n 01-07-2020 [...] interactive video communications from my office using DeNA due to the restrictions of the COVID-19 pandemic. No physical exam was conducted other than those areas of the body visible to telecommunications with the patient located at [address] [place] [address], with no one else in attendance. If [...] Use:. N (more content not included)... Normal [facility] Comment on above: Result Comment: Elec tronically Signed By: Deepa [facility], Maia Montero.mati\Date and Time Signed: 01/07/20 12:38 [...] interactive video communications from my office using DeNA due to the restrictions of the COVID-19 pandemic. No physical exam was conducted other than those areas of the body visible to telecommunications with the patient located at [address] [place] [address], with no one else in attendance. If [...] Father and (more content not included)... Normal [facility] Comment on above: Result Comment: Elec tronically Signed By: Deepa [facility], Maia Ashley\.mati\Date and Time Signed: 12/30/19 13:50 EDT Video [...] interactive video communications from my office using DeNA due to the restrictions of the COVID-19 pandemic. No physical exam was conducted other than those areas of the body visible to telecommunications with the patient located at [address] [place] [phone], with no one else in attendance. If [...] Alcohol U (more content not included)... Normal [facility] Comment on above: Result Comment: Elec tronically Signed By: Deepa [facility], Maia Ashley\.mati\Date and Time Signed: 12/23/19 16:54 EDT Patient Educationon 12-23-19 20 Patient Education aripiprazole (AR i PIP ra welsh) Say Lerma Discmelt What is the most [...] include drow (more content not included)... Normal [facility] Video Visit - Telehealtho n 12-04-2019 [...] interactive video communications from my office using DeNA due to the restrictions of the COVID-19 pandemic. No physical exam was conducted other than those areas of the body visible to telecommunications with the patient located at [address] [place], [place] [phone], with no one else in attendance. If [...] Daily, 5 (more content not included)... Normal [facility] Comment on above: Result Comment: Elec tronically Signed By: Deepa [facility], Maia Montero.mati\Date and Time Signed: 12/04/19 09:42 EDT Patient [...] rate, h (more content not included)... Normal [facility] Vital Signs Date Time Vital Sign Value Performing Clinician Facility 08-18-2023 14:24-0400 Body height 160.02 cm [facility] 08-18-2023 14:24-0400 Body mass index (BMI) [Ratio] 40.2 kg/m2 [facility] 08-18-2023 14:24-0400 Body temperature 98.4 [degF] [facility] 08-18-2023 14:24-0400 Body weight 103.02 kg [facility] 08-18-2023 14:24-0400 Diastolic blood pressure 81 mm[Hg] [facility] 08-18-2023 14:24-0400 Heart rate 101 /min [facility] 08-18-2023 14:24-0400 Respiratory rate 16 /min [facility] 08-18-2023 14:24-0400 SaO2% (BldA) [Mass fraction] 98 % [facility] 08-18-2023 14:24-0400 Systolic blood pressure 133 mm[Hg] [facility] 04-27-2023 16:30-0500 Body height 160.02 cm Sanaz Lockwood Other [facility] Other 04-27-2023 16:30-0500 Body mass index (BMI) [Ratio] 40.92 kg/m2 Sanaz Lockwood Other [facility] Other 04-27-2023 16:30-0500 Body temperature 98.2 [degF] Sanaz Lockwood Other [facility] Other 04-27-2023 16:30-0500 Body weight 104.78 kg Sanaz Lockwood Other [facility] Other 04-27-2023 16:30-0500 Respiratory rate 18 /min Sanaz Lockwood Other [facility] Other 04-27-2023 16:30-0500 SaO2% (BldA) [Mass fraction] 99 % Sanaz Lockwood Other [facility] Other 05-10-2022 14:45-0500 Body height 160.02 cm Kaylah Lottault Other [facility] Other 05-10-2022 14:45-0500 Body mass index (BMI) [Ratio] 38.97 kg/m2 Kaylah Lottault Other [facility] Other 05-10-2022 14:45-0500 Body temperature 99.3 [degF] Kaylah Han Other [facility] Other 05-10-2022 14:45-0500 Body weight 99.79 kg Kaylah Han Other [facility] Other 06-29-2019 22:40-0500 Pulse (Heart Rate) 84 /min [facility] Juan Carlos [facility] 06-29-2019 22:40-0500 Pulse Oximetry 97 % [facility] 06-29-2019 22:35-0500 BP Diastolic 56 mm[Hg] [facility] 06-29-2019 22:35-0500 BP Systolic 100 mm[Hg] [facility] 06-29-2019 21:11-0500 BMI (Body Mass Index) 33.1 kg/m2 [facility] 06-29-2019 21:11-0500 Body Temperature 97.8 [degF] [facility] 06-29-2019 21:11-0500 Body weight 84.8 kg Kimberlyn [facility] 06-29-2019 21:11-0500 Height 160.02 cm Kimberlyn [facility] 06-29-2019 21:11-0500 Respiratory Rate 20 /min Kimberlyn [facility] Encounters Encounter Date Encounter Type Care Provider Facility Start: 12-25-2023 End: 12-25-2023 ambulatory MAKENZIE SARAY Not Available Start: 11-24-2023 End: 11-24-2023 ambulatory MAKENZIE SARAY Not Available Start: 08-18-2023 End: 08-18-2023 ambulatory [facility] Work Phone: Start: 08-18-2023 End: 08-18-2023 Patient encounter procedure [facility] Work Phone: Start: 04-27-2023 End: 04-27-2023 ambulatory Sanaz Lockwood Other [facility] Other Start: 04-27-2023 Office outpatient visit 25 minutes Sanaz Lockwood [facility] Start: 05-10-2022 End: 05-10-2022 ambulatory Kaylah Han Other [facility] Other Start: 05-10-2022 Office outpatient ne w 20 minutes Kaylah Han [facility] Start: 04-27-2022 End: 04-27-2022 ambulatory KIMBERLYN XIE Facility:[facility] Start: 03-07-2022 End: 03-07-2022 ambulatory KIMBERLYN XIE Facility:[facility] Start: 09-23-[address] JAZIEL HILL Facility :[facility] Start: 06-29-2019 End: 06-29-2019 Emergency department patient visit [facility] Procedures Date Procedure Procedure Detail Performing Clinician Start: 08-18-2023 Quick Strep (POC) Plan of Treatment Date Care Activity Detail Author Patient Education Epinephrine (B y injection) Anaphylaxis (ED) General Allergic Reaction (ED) [facility] Patient referral [facility] Payers Date Payer Category Payer Unknown [id number] 2.16.84 [id number] 1987 Unknown [id number] 2.16.84 [id number] 1987 Unknown [id number] 2.16.84 [id number] 1987 Unknown [id number] 2.16.84 [id number] 1987 Unknown [id number] 2.16.84 [id number] 1959 Self-pay [id number] 1957 Unknown [id number] Private Health Insurance [id number] Self-pay Self Pay [id number] Social History Date Type Detail Facility Start: 06-29-2019 End: 08-18-2023 Tobacco smoking status NHIS Smoker (finding) [facility] Start: 1985 Sex Assigned At Female F [facility] Sex Assigned At Sex Assigned At Bir th [facility] Other Goals Date Patient Goal Desired Activity [...] condition. Mar, Sore throat (ICD-10 - J02.9) [facility] Other 01-10-2023 Evaluation note* Encounter Date Diagnosis [...] weeks for the cough to go away [facility] Other 11-07-2022 NoteIndication: Abdominal pain. Comparison: None [...] Electronically authenticated by: SURJIT FREITAS Date: 2022-03-07 20:49[facility]11-19-2020 NoteHPI Staff This visit was conducted via phone communications from my office due to the restrictions of the COVID-19 pandemic. No physical exam was conducted due to audio only communication with the patient located at [address] [place] [phone], with no one else. If it is determined that the patientshould be evaluated in person, the patient will be directed to the appropriate clinic or venue. Thepatient or their guardian verbally consented to this visit. Phone time was 15 minutes discussing health issues with counseling and coordination of care. Subjective Interval History/HPI Patient presents today for follow up via telehealth phone from [facility]. Patient started Latuda 20mg last evening [...] interview, Other: attentive Insight.: Fair Judgement: Good Language: Within normal limits Fund [...] anxiety, # 30 tab(s), Refills(s) 2, Pharmacy: [id number], 161, cm, 12/23/19 10:18:00 EDT, Height/Length Dosing, 82, kg, 12/23/19 10:18:00 EDT, Weight Dosing Orders: lurasidone, 20 mg = 1 tab(s), Oral, Daily, with 350 calories; begin this dose first then progress to next dose of 40mg, X 1 week(s), # 7 tab(s), Refills(s) 0, Pharmacy: [id number], 161, cm, 12/23/19 10:18:00 EDT, Height/Length Dosing, 82, kg, 12/23/19 10:... lurasidone, 40 mg = 1 tab(s), Oral, Daily, with 350 calories, # 30 tab(s), Refills(s) 1, [id number] 161, cm, 12/23/19 10:18:00 EDT, Height/Length [...] (generalized anxiety disorder) Hidr (more content not included)...[facility]: Result Comment: Electronically Signed By: Carlota RODRIGUEZ CNP\.br\Date and Time Signed: 03/19/20 14:27 [id number] NoteI Staff This visit was conducted via two-way, real-time interactive video communications from my office using DeNA due to the restrictions of the COVID-19 pandemic. No physical exam was conducted other than those areas of the body visible to telecommunications with the patient located at [address] [place] [address], with no one else in attendance. If [...] Ordered: TELEHEALTH Office Visit Level 3 Est 71174 General Treatment Plan Maintain medication regimen _Improve [...] Employed, 03/18/2019 Home/Environment Lani (more content not included)...[facility] Hospital[facility] on above: Result Comment: Electronically Signed By: Carlota RODRIGUEZ CNP\harshil\Date and Time Signed: 03/05/20 13:32 [id number] NoteHPI Staff This visit was conducted via two-way, real-time interactive video communications from my office using DeNA due to the restrictions of the COVID-19 pandemic. No physical exam was conducted other than those areas of the body visible to telecommunications with the patient located at [address] [place] [phone], with no one else in attendance. If [...] anxiety, # 30 tab(s), Refills(s) 1, [id number] 161, cm, 12/23/19 10:18:00 EDT, Height/Length Dosing, 82, kg, 12/23/19 10:18:00 EDT, Weight Dosing alprazolam, 0.5 mg = 1 tab(s), Oral, TID, PRN for anxiety, # 30 tab(s), Refills(s) 1, [id number], 161, cm, 12/23/19 10:18:00 EDT, Height/Length Dosing, 82, kg, 12/23/19 10:18:00 EDT, Weight Dosing aripiprazole, See Instructions, 1.5 tab po qAM, # 30 tab(s), Refills(s) 2, [id number], 161, cm, 12/23/19 10:18:00 EDT, Height/Length Dosing, 82, kg, 12/23/19 10:18:00 EDT, Weight Dosing aripiprazole, See Instructions, 1 tab po qAM, # 30 tab(s), Refills(s) 5, [id number], 161, cm, 12/23/19 10:18:00 EDT, Height/Length Dosing, 82, kg, 12/23/19 10:18:00 EDT, Weight Dosing cyclobenzaprine, 10 mg = 1 tab(s), Oral, TID, PRN for spasm, # 30 tab(s), Refills(s) 1, [facility]: [id number], 161, cm, 06/13/19 14:39:00 EST, Height/Length Measured, 82, kg, 06/13/19 14:39:00EST, Weight Measured cyclobenzaprine, 10 mg = 1 tab(s), Oral, TID, PRN for spasm, # 30 tab(s), Refills(s) 1, Pharmacy: [facility] #[id number], 161, cm, 12/23/19 10:18:00 EDT, Height/Length Dosing, 82, kg, 12/23/19 10:18:00 EDT, Weight Dosing General Treatment Plan Maintain medication regimen _Improve mood stability _Improve anxiety control _Improve social and interpersonal functioning Clinical Global Impression 62 Prognosis progressing Follow-up With When Contact Information Carlota RODRIGUEZ CNP In 4 weeks Additional Instructions: (more content not included)...[facility] Hospital[facility] above:Result Comment: Electronically Signed By: Carlota RODRIGUEZ CNP\.br\Date and Time Signed: 01/27/20 22:35 [id number] NoteHPI Staff This visit was conducted via two-way, real-time interactive video communications from my office using Haload due to the restrictions of the COVID-19 pandemic. No physical exam was conducted other than those areas of the body visible to telecommunications with the patient located at [address] [place] [address], with no one else in attendance. If [...] Ordered: TELEHEALTH Office Visit Level 3 Est 97359 General Treatment Plan Maintain medication regimen _Improve [...] Use:. Never Smokeless Tob (more content not included)...[facility] Hospital[facility] on above:Result Comment: Electronically Signed By: Carlota RODRIGUEZ CNP\.mati\Date and Time Signed: 01/13/20 09:11 [id number] NoteI Staff This visit was conducted via two-way, real-time interactive video communications from my office using Haload due to the restrictions of the COVID-19 pandemic. No physical exam was conducted other than those areas of the body visible to telecommunications with the patient located at [address] [place] [address], with no one else in attendance. If [...] anxiety, # 30 tab(s), Refills(s) 1, [id number], 161, cm, 12/23/19 10:18:00 EDT, Height/Length Dosing, 82, kg, 12/23/19 10:18:00 EDT, Weight Dosing alprazolam, 0.5 mg = 1 tab(s), Oral, TID, PRN for anxiety, # 30 tab(s), Refills(s) 1, [id number], 161, cm, 06/13/19 14:39:00 EST, Height/Length Measured, 82, kg, 06/13/19 14:39:00 EST, Weight Measured aripiprazole, See Instructions, 1 tab po qAM, # 30 tab(s), Refills(s) 0, [id number], 161, cm, 12/23/19 10:18:00 EDT, Height/Length [...] Allergies Bactrim Social History (more content not included)...[facility] Hospital[facility] above:Result Comment: Electronically Signed By: Carlota RODRIGUEZ CNP\Date and Time Signed: 12/23/19 16:37 [id number] NoteHPI Staff This visit was conducted via two-way, real-time interactive video communications from my office using Haload due to the restrictions of the COVID-19 pandemic. No physical exam was conducted other than those areas of the body visible to telecommunications with the patient located at [address] [place] [address], with no one else in attendance. If [...] q24hr, # 30 tab(s), Refills(s) 2, Pharmacy: [facility] #[id number],161, cm, 06/13/19 14:39:00 EST, Height/Length Measured, 82, kg, 06/13/19 14:39:00 EST, Weight Measured cyclobenzaprine, 10 mg = 1 tab(s), Oral, TID, PRN for spasm, # 30 tab(s), Refills(s) 1, Pharmacy: [id number], 161, cm, 06/13/19 14:39:00 EST, Height/Length [...] Employment/School Employed, 03/18/2019 Home/Environment (more content not included)...[facility] HospitalComment on above:Result Comment: Electronically Signed By: Carlota RODRIGUEZ CNP\harshil\Date and Time Signed: 12/02/19 16:38 EDTChief complaint+Reason for visit Narrative* Chief Complaint Nausea, diarrhea, fe zhou Reason for Visit Contact with and (louis spected) exposure to covid-19 Sore throat [facility] Work Phone: Evaluation note* Diagnosis Onset Date Resolution Status Contact with and (suspected) exposure to covid-19 noneactive Sore throat noneactive [facility] Work Phone: History general Narrative - Reported* Type Description Date Medical History Bipolar Surgical History appendectomy Surgical History x 3 Hospitalization History see above surgical histo ry [facility] Other Advance Directives No Advanced Directives Records Found Advance Directive Response Recorded Date/ Time Advance [...] may need to be seen by an drain cleaner if you have other events like this without definite egg exposure. Summary Purpose Family History No Family History Records Found Relationship Condition Age at Onset Recorded Date/T alo father Diabetes mellitus Unknown Hypertension Unknown Additional Source Comments INFORMATION SOURCE (unrecogn ized section and content) DATE CREATED AUTHOR 10/30/2020 [facility] [place] DATE CREATED AUTHOR AUTHOR'S ORGANIZ ATION 04/29/2022 [facility] DATE CREATED AUTHOR AUTHOR'S ORGANIZ ATION 12/26/2023 [facility] EPIC REASON FOR VISIT (unrecogniz ed section and [...] BE BASED ON THE PRIMARY CLINICAL RECORDS. [employer] provides no warranty or guarantee of the accuracy or completeness of information in this document.
[2023-12-29 12:34] LABS: Bilirubin Urine NEGATIVE (NEGATIVE); Blood Urine MODERATE (NEGATIVE); Clarity Urine CLEAR (CLEAR); Color Urine LT. YELLOW (YELLOW); Glucose Urine UA NEGATIVE (NEGATIVE); Ketones Urine NEGATIVE (NEGATIVE); Leukocyte Esterase Urine MODERATE (NEGATIVE); Nitrite Urine NEGATIVE (NEGATIVE); Protein Urine NEGATIVE (NEG/TRACE); Urobilinogen Urine 0.2 EU/dL (0.2-1.0)
[2023-12-29 12:34] LABS: Basophils Percent Auto 0.2 % (0.2-2.0); Eosinophils Percent Auto 0.2 % (0.9-7.0); Hematocrit 35.6 % (36.0-48.0); Hemoglobin 12.1 g/dL (12.0-16.0); Immature Granulocytes Abs Auto 0.06 10^3/uL (0.00-0.03); Immature Granulocytes Pct Auto 0.5 % (0.0-0.5); Lymphocytes Absolute Auto 2.5 10^3/uL (1.2-3.8); Lymphocytes Percent Auto 18.9 % (20.5-60.0); Mean Corpuscular Hemoglobin 31.4 pg (26.7-34.0); Mean Corpuscular Volume 92.5 fL (81.0-99.0); Mean Platelet Volume 10.4 fL (9.5-13.5); Monocytes Absolute Auto 0.5 10^3/uL (0.3-0.8); Monocytes Percent Auto 3.8 % (1.7-12.0); Neutrophils Absolute Auto 9.9 10^3/uL (1.4-6.5); Neutrophils Percent Auto 76.4 % (43.0-75.0); Platelet Count 300 10^3/uL (150-450); Red Blood Count 3.85 10^6/uL (4.20-5.40); Red Cell Distribution Width 13.1 % (11.0-15.0)
[2023-12-29] MEDS: 0.9 % SODIUM CHLORIDE 1,000 ML 500 ML IV (12:37)
[2023-12-29 12:39] LABS: Urine Microscopic Indicated YES
[2023-12-29 12:48] LABS: Bacteria Urine MODERATE #/HPF (NONE SEEN); Cast Seen? NONE SEEN #/LPF (NONE SEEN); Crystals Seen? None Seen #/HPF (None Seen); Mucus Urine TRACE (NONE SEEN); Squamous Epithelial Cell Urine MANY #/LPF (NONE/RARE); Urine Culture Indicated YES
[2023-12-29 12:56] LABS: Alanine Aminotransferase 19 U/L (14-59); Albumin Globulin Ratio 0.7; Albumin Level 3.1 g/dL (3.4-5.0); Alkaline Phosphatase 74 U/L (46-116); Anion Gap 13.9; Aspartate Amino Transferase 22 U/L (15-37); BUN Creatinine Ratio 11.3; Bilirubin Total 0.4 mg/dL (0.2-1.0); Calcium 8.7 mg/dL (8.5-10.1); Chloride 101 mmol/L (98-107); Estimated GFR (African America >60 (>=60); Estimated GFR (Non-African Ame >60 (>=60); Globulin 4.2 g/dL; Glucose 106 mg/dL (74-106); Sodium 135 mmol/L (136-145); Total Protein 7.3 g/dL (6.4-8.2)
[2023-12-29 13:16] LABS: HCG Quantitative 44706 mIU/mL; Potassium 3.9 mmol/L (3.5-5.1)
--- NOTE | 2023-12-29 13:51 | ED_ITS ---
HPI - Female Genitourinary General Chief complaint: Vaginal Bleeding Stated complaint: 14 WEEKS / VAGINAL BLEEDING Time Seen by Provider: 12/29/23 12:05 Source: patient Mode of arrival: walk-in Limitations: no limitations History of Present Illness HPI Narrative: 14 weeks female presenting to us with a vaginal bleeding and discharge that she noticed while wiping after urinating, she mentioned this happened 3 times today, no abdominal pain no nausea no vomiting more than usual, she used Zofran pump since the beginning of the and she continues to use it There is no other complaints except for the patient having some dizziness Related Data Previous Rx's ?Medication ?Instructions ?Recorded amoxicillin 875 mg-potassium 1 tab PO BID #14 tabs 12/29/23 clavulanate 125 mg tablet clotrimazole 1 % vaginal cream 1 appful vaginal BEDTIME 7 days 12/29/23 (Clotrimazole-7) #45 grams Allergies Allergy/AdvReac Type Severity Reaction Status Date / Time sulfamethoxazole Allergy Hives Verified 12/29/23 11:51 [From Bactrim] trimethoprim [From Bactrim] Allergy Hives Verified 12/29/23 11:51 Review of Systems ROS Status of ROS 10 or more systems reviewed and unremark able except as noted in history and below Exam Narrative Exam Narrative: Nurses notes and vital signs reviewed and patient is not hypoxic. General: Well-appearing and in no apparent distress. Skin: Warm, dry, no pallor noted. No rash. Head: Normocephalic, atraumatic. Neck: Supple, non-tender. Eye: Pupils are equal, round and EOMI. No scleral icterus. Ears, Nose, Mouth, and Throat: TM are clear, no nasal mucosal hypertrophy. Oral mucosa is moist, no posterior oropharynx erythema, uvula is mid-line Cardiovascular: Regular Rate and Rhythm without murmur, gallop or rub. Respiratory: No accessory muscle use or respiratory distress. Lungs are clear to auscultation, no wheezing, rales or rhonchi Chest Wall: no tenderness Back: No midline thoracic or lumbar vertebral tenderness. No CVA tenderness Musculoskeletal: normal ROM, no calf or popliteal tenderness, no lower extremity edema/swelling GI: Abdomen is soft, non-distended. Normal bowel sounds. No masses appreciated. No tenderness to palpation. No rebound, guarding, or rigidity noted. Neurological: A&O x4. No cranial nerve dysfunction observed. No truncal ataxia. Moves all extremities. Sensation intact. Psychiatric: Cooperative and interactive. Normal mood and affect. Constitutional Vital Signs, click to edit/add: Last Vital Signs Temp 98.7 F 12/29/23 11:52 Pulse 78 12/29/23 11:52 Resp 16 12/29/23 11:52 BP 113/73 12/29/23 11:52 Pulse Ox 100 12/29/23 11:52 O2 Del Method Room Air 12/29/23 11:52 Course Vital Signs Vital signs: Vital Signs Temperature 98.7 F 12/29/23 11:52 Pulse Rate 78 12/29/23 11:52 Respiratory Rate 16 12/29/23 11:52 Blood Pressure 113/73 12/29/23 11:52 Pulse Oximetry 100 12/29/23 11:52 Oxygen Delivery Method Room Air 12/29/23 11:52 Temperature 98.7 F 12/29/23 11:52 Pulse Rate 78 12/29/23 11:52 Respiratory Rate 16 12/29/23 11:52 Blood Pressure 113/73 12/29/23 11:52 Pulse Oximetry 100 12/29/23 11:52 Oxygen Delivery Method Room Air 12/29/23 11:52 MDM - Female Genitourinary MDM Narrative Medical decision making narrative: The patient EKG in the ER showing sinus rhythm with a heart rate of 71 CBC shows mild leukocytosis which is mostly reactive due to Chemistry showing no acute pathology The patient was feeling much better after IV fluids and her urine shows some bacteria and yeast infection Ultrasound of the pelvis showed no acute pathology except for intrauterine that is 14 weeks with no pathology detected The patient case was discussed with the OB service Dr. Hebert and she agreed on the plan of discharging the patient with local yeast treatment as well as antibiotic for bacteriuria The patient is to follow up with primary care physician in next 2-3 days or to return to the emergency department should any of the signs or symptoms worsen or new symptoms develop. The patient agrees with the following Diagnosis and Treatment plan and the patient will be discharged home. #254: Ultrasound for Patients with Abdominal Pain ?[y] The patient is and presents with abdominal pain or vaginal bleeding.? A trans-abdominal or trans-vaginal ultrasound was performed and the location is documented. ?[SATISFIES MIPS PERFORMANCE] Lab Data Labs: Lab Results 12/29/23 12/29/23 12/29/23 Range/Units 12:10 12:24 12:37 WBC 13.0 H (4.0-11.0) 10^3/uL RBC 3.85 L (4.20-5.40) 10^6/uL Hgb 12.1 (12.0-16.0) g/dL Hct 35.6 L (36.0-48.0) % MCV 92.5 (81.0-99.0) fL MCH 31.4 (26.7-34.0) pg MCHC 34.0 (29.9-35.2) g/dL RDW 13.1 (11.0-15.0) % Plt Count 300 (150-450) 10^3/uL MPV 10.4 (9.5-13.5) fL Neut % (Auto) 76.4 H (43.0-75.0) % Lymph % (Auto) 18.9 L (20.5-60.0) % [place] % (Auto) 3.8 (1.7-12.0) % Eos % (Auto) 0.2 L (0.9-7.0) % Baso % (Auto) 0.2 (0.2-2.0) % Neut # (Auto) 9.9 H (1.4-6.5) 10^3/uL Lymph # (Auto) 2.5 (1.2-3.8) 10^3/uL [place] # (Auto) 0.5 (0.3-0.8) 10^3/uL Eos # (Auto) 0.0 (0.0-0.7) 10^3/uL Baso # (Auto) 0.0 (0.0-0.1) 10^3/uL Abs Immat Gran (auto) 0.06 H (0.00-0.03) 10^3/uL Imm/Tot Granulo (auto) 0.5 (0.0-0.5) % Sodium 135 L (136-145) mmol/L Potassium 3.9 (3.5-5.1) mmol/L Chloride 101 (98-107) mmol/L Carbon Dioxide 24.0 (21.0-32.0) mmol/L Anion Gap 13.9 BUN 7.0 (7.0-18.0) mg/dL Creatinine 0.62 (0.55-1.02) mg/dL Est GFR ( Amer) >60 (>=60) Est GFR (Non-Af Amer) >60 (>=60) BUN/Creatinine Ratio 11.3 Glucose 106 (74-106) mg/dL Calcium 8.7 (8.5-10.1) mg/dL Total Bilirubin 0.4 (0.2-1.0) mg/dL AST 22 (15-37) U/L ALT 19 (14-59) U/L Alkaline Phosphatase 74 (46-116) U/L Total Protein 7.3 (6.4-8.2) g/dL Albumin 3.1 L (3.4-5.0) g/dL Globulin 4.2 g/dL Albumin/Globulin Ratio 0.7 HCG, Quant 94561 mIU/mL Urine Color Lt. yellow (YELLOW) Urine Clarity Clear (CLEAR) Urine pH 6.0 (5.0-9.0) Ur Specific [place] 1.020 (1.005-1.025) Urine Protein Negative (NEG/TRACE) mg/dL Urine Glucose (UA) Negative (NEGATIVE) mg/dL Urine Ketones Negative (NEGATIVE) mg/dL Urine Occult Blood Moderate A (NEGATIVE) Urine Nitrite Negative (NEGATIVE) Urine Bilirubin Negative (NEGATIVE) Urine Urobilinogen 0.2 (0.2-1.0) EU/dL Ur Leukocyte Esterase Moderate A (NEGATIVE) Urine RBC 5-10 A (0-2) #/HPF Urine WBC 2-5 A (NONE SEEN) #/HPF Ur Squamous Epith Cells Many A (NONE/RARE) #/LPF Urine Crystals None seen (None Seen) #/HPF Urine Bacteria Moderate A (NONE SEEN) #/HPF Urine Casts None seen (NONE SEEN) #/LPF Urine Mucus Trace A (NONE SEEN) Urine Yeast Seen A (NONE SEEN) Ur Culture Indicated? Yes Blood Type A Positive Antibody Screen Negative Discharge Plan Discharge Stand Alone Forms: Work/School Release, Portal Instructions Chief Complaint: Vaginal Bleeding Clinical Impression: Lacy vaginitis, Vaginal bleeding affecting early Patient Disposition: Home, Self-Care Time of Disposition Decision: 13:59 Condition: Good Prescriptions / Home Meds: New amoxicillin-pot clavulanate 875-125 mg tablet 1 tab PO BID Qty: 14 0RF clotrimazole [Clotrimazole-7] 1 % cream 1 appful vaginal BEDTIME 7 Days Qty: 45 0RF Print Language: Faroese Instructions: Yeast Infection (ED) Referrals: Johnathan Recinos DO [Physician] - 1 week RADHA XIE [Primary Care Provider] - 1 week
== END 2023-12-29 14:15 | disposition home or self-care (01) ==
PROVIDERS: Emergency Provider Emergency Medicine; PCP Nurse Practitioner Family
DX: O20.9 Hemorrhage in early pregnancy, unspecified (principal); O98.812 Other maternal infectious and parasitic diseases complicating pregnancy, second trimester; B37.31 Acute candidiasis of vulva and vagina; Z3A.14 14 weeks gestation of pregnancy
CPT/HCPCS: 36415; 76815; 80053; 81001; 84702; 85025; 86850; 86900; 86901; 87086; 93005; 96360; 99285

== ENCOUNTER 2024-01-24 12:47 | Outpatient (OUT) | payer BC, SELFPAY ==
--- OUTSIDE RECORDS SUMMARY | 2024-01-24 12:54 | XMS_ITS | CCD ---
Author Organization [facility] Inform ion Partnership [facility] Care Team Providers Care Energy Project Manager Name Role Phone Kimberlyn Xie Primary Care [...] Sanaz Lockwood Unavailable MAKENZIE SO Attending Unavailable GUERRERO DUQUE Attending Unavailable Unavailable Unavailable Unavailable Allergies Allergy Classification Reported Allergen(s) Allergy Type Date of Onset Reaction(s) Facility (2 sources) egg extract Drug Allergy 08-18-19 24 Vomiting [facility] (2 sources) Sulfamethoxazole Drug Allergy 08-18-19 24 Unknown Reaction, Unknown Reaction, [facility] (2 sources) Trimethoprim Drug Allergy 08-18-19 24 Unknown Reaction, Unknown Reaction, [facility] (2 sources) Fish Containing Products Propensity to adverse reactions 08-18-19 24 Difficulty Breathing [facility] (1 source) Sulfamethoxazole / Trimethoprim Drug Allergy 02-04-20 13 [facility] (2 sources) Sulfamethoxazole / [facility]ethoprim [facility] [employer] Other Medications Current Medications Medication Drug Class(es) Dates Sig (Normalized) Sig (Original) [id number] 200 actuat albuterol 0.09 mg/actuat metered dose [...] oral tablet (1 source) alpha-Adrenergic Agonist, Uncompetitive E-tmspiv-P-asparta te Receptor Antagonist, Sigma-1 Agonist Start: 04-27-2023 take 4 tablets by mouth every twenty-four hours as needed Capmist DM 60-15-400 MG as needed Orally every 4-6 hours as needed, max 4 tablets in 24 hours for 5 days Mar, Active [id number] 0.3 ml EPINEPHrine 1 mg/ml auto-injector (2 [...] 03-09-2022 Episodic Other aftercare (1 source) Other roasterman (current) drug therapy; 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: [OTH 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 pyogenes Org specific cx Ql (Throat) Negative [facility] Other Quick Strep [facility] Other COVID/FLU/RSV RT-PCRon 05-10 SARS-CoV-2 (COVID-19) RNA J LUIS+probe Ql (Unsp spec) Negative [facility] Other COVID/FLU/RSV RT-PCR Positive [facility] Other COVID/FLU/RSV RT-PCR Negative [facility] Other CBC AUTO DIFFon 04-27-2022 BASO # 0.0 103/ul Normal 0.0-0.1 [facility] Comment on above: Performed By: #### C BC #### [facility] [address] [place] [address] Dr. Dee Humphrey Basophils/100 WBC (Bld) 0.2 % Normal 0.2-2.0 [facility] Comment on above: Performed By: #### C BC #### [facility] [address] [address] [address] Dee Humphrey EO # 0.1 103/ul Normal 0.0-0.7 [facility] Comment on above: Performed By: #### C BC #### [facility] [address] [place] [address] Dr. Dee Humphrey Eosinophils/100 WBC (Bld) 0.6 % Critically low 0.9-7.0 [facility] Comment on above: Performed By: #### C BC #### [facility] [address] [place] [address] Dr. Dee Humphrey Erythrocyte distribution width (RBC) [Ratio] 14.1 % Normal 11.0-15.0 [facility] Comment on above: Performed By: #### C BC #### [facility] [address] [place] [address] Dr. Dee Humphrey Hematocrit (Bld) [Volume fraction] 37.1 % Normal 36.0-48.0 [facility] Comment on above: Performed By: #### C BC #### [facility] [address] [place] [address] Dr. Dee Humphrey Hemoglobin (Bld) [Mass/Vol] 12.4 g/dL Normal 12.0-16.0 [facility] Comment on above: Performed By: #### C BC #### [facility] [address] [place] [address] Dr. Dee Humphrey IG # 0.06 10e3/ul Critically high 0.00-0.03 [facility] Comment on above: Performed By: #### C BC #### [facility] [address] [place] [address] Dr. Dee Humphrey IG % 0.5 % Normal 0.0-0.5 [facility] Comment on above: Performed By: #### C BC #### [facility] [address] [place] [address] Dr. Dee Humphrey LYMPH # 3.7 103/ul Normal 1.2-3.8 [facility] Comment on above: Performed By: #### C BC #### [facility] [address] [place] [address] Dr. Dee Humphrey Lymphocytes/100 WBC (Bld) 28.7 % Normal 20.5-60.0 [facility] Comment on above: Performed By: #### C BC #### [facility] [address] [place] [address] Dr. Dee Humphrey MANUAL DIFF REQ NO Normal [facility] Comment on above: Performed By: #### C BC #### [facility] [address] [place] [address] Dr. Dee Humphrey MCH (RBC) [Entitic mass] 30.2 pg Normal 26.7-34.0 [facility] Comment on above: Performed By: #### C BC #### [facility] [address] [place] [address] Dr. Dee Humphrey MCHC (RBC) [Mass/Vol] 33.4 g/dL Normal 29.9-35.2 [facility] Comment on above: Performed By: #### C BC #### [facility] [address] [place] [address] Dr. Dee Humphrey MCV (RBC) [Entitic vol] 90.5 fL Normal 81.0-99.0 [facility] Comment on above: Performed By: #### C BC #### [facility] [address] [place] [address] Dr. Dee Humphrey MONO # 0.7 103/ul Normal 0.3-0.8 [facility] Comment on above: Performed By: #### C BC #### [facility] [address] [place] [address] Dr. Dee Humphrey Monocytes/100 WBC (Bld) 5.0 % Normal 1.7-12.0 [facility] Comment on above: Performed By: #### C BC #### [facility] [address] [place] [address] Dr. Dee Humphrey NEUT # 8.5 103/ul Critically high 1.4-6.5 [facility] Comment on above: Performed By: #### C BC #### [facility] [address] [place] [address] Dr. Dee Humphery Neutrophils/100 WBC (Bld) 65.0 % Normal 43.0-75.0 [facility] Comment on above: Performed By: #### C BC #### [facility] [address] [place] [address] Dr. Dee Humphrey Platelet mean volume (Bld) [Entitic vol] 9.6 fL Normal 9.5-13.5 [facility] Comment on above: Performed By: #### C BC #### [facility] [address] [place] [address] Dr. Dee Humphrey PLT 317 103/ul Normal 150-450 [facility] Comment on above: Performed By: #### C BC #### [facility] [address] [place] [address] Dr. Dee Humphrey RBC 4.10 106/ul Critically low 4.20-5.40 [facility] Comment on above: Performed By: #### C BC #### [facility] [address] [place] [address] Dr. Dee Humphrey WBC 13.1 103/ul Critically high 4.0-11.0 [facility] Comment on above: Performed By: #### C BC #### [facility] [address] [place] [address] ABD/PELVIS WO CONon [...] Date: 2022-04-27 20:24 Normal [facility] ER URINE PROFILEon 2 Bilirubin Ql (U) Negative Normal NEGATIVE [facility] Comment on above: Performed By: #### P REGU, ERUR #### [facility] [address] [place] [address] Dr. Dee Humphrey Clarity (U) CLEAR Normal CLEAR [facility] Comment on above: Performed By: #### P REGU, ERUR #### [facility] [address] [place] [address] Dr. Dee Humphrey Color (U) YELLOW Normal YELLOW [facility] Comment on above: Performed By: #### P REGU, ERUR #### [facility] [address] [place] [address] Dr. Dee Humphrey ERUAHD A micrscopic examination will be performed if indicated. Normal [facility] Comment on above: Performed By: #### P REGU, ERUR #### [facility] [address] [place] [address] Dr. Dee Humphrey Glucose Ql (U) Negative Normal NEGATIVE [facility] Comment on above: Performed By: #### P REGU, ERUR #### [facility] [address] [place] [address] Dr. Dee Humphrey Hemoglobin Ql (U) Negative Normal NEGATIVE [facility] Comment on above: Performed By: #### P REGU, ERUR #### [facility] [address] [place] [address] Dr. Dee Humphrey Ketones Ql (U) Negative Normal NEGATIVE [facility] Comment on above: Performed By: #### P REGU, ERUR #### [facility] [address] [place] [address] Dr. Dee Humphrey LEUKOCYTES Negative Normal NEGATIVE [facility] Comment on above: Performed By: #### P REGU, ERUR #### [facility] [address] [place] [address] Dr. Dee Humphrey Nitrite Ql (U) Negative Normal NEGATIVE [facility] Comment on above: Performed By: #### P REGU, ERUR #### [facility] [address] [place] [address] Dr. Dee Humphrey pH (U) 5.5 [pH] Normal 5-9 [facility] Comment on above: Performed By: #### P REGU, ERUR #### [facility] [address] [place] [address] Dr. Dee Humphrey SPEC GRAVITY >=1.030 Abnormal 1.005-<=1.02 5 [facility] Comment on above: Performed By: #### P REGU, ERUR #### [facility] [address] [place] [address] Dr. Dee Humphrey UA PROTEIN Negative Normal NEGATIVE/ TRACE [facility] Comment on above: Performed By: #### P REGU, ERUR #### [facility] [address] [place] [address] Dr. Dee Humphrey UR MICRO IND NOT INDICATED Normal [facility] Comment on above: Performed By: #### P REGU, ERUR #### [facility] [address] [place] [address] Dr. Dee Humphrey Urobilinogen Qn (U) 0.2 {Blanca'U}/dL Normal 0.2 - 1. 0 [facility] Comment on above: Performed By: #### P REGU, ERUR #### [facility] [address] [place] [address] Dr. Dee Humphrey LIPASEon 04-27-2022 Lipase [Catalytic activity/Vol] 94.0 U/L Normal 73.0-393.0 [facility] Comment on above: Performed By: #### L IPA, CMP #### [facility] [address] [place] [address] Dr. Dee Humphrey URon 04-27-2022 , QUAL Negative Normal NEGATIVE [facility] Comment on above: Performed By: #### P REGU, ERUR #### [facility] [address] [place] [address] Dr. Dee Humphrey PROF 14(COMP METB)on 022 Albumin [Mass/Vol] 3.9 g/dL Normal 3.4-5.0 [facility] Comment on above: Performed By: #### L IPA, CMP #### [facility] [address] [place] [address] Dr. Dee Humphrey Albumin/Globulin [Mass ratio] 1.0 {ratio} Normal [facility] Comment on above: Performed By: #### L IPA, CMP #### [facility] [address] [place] [address] Dr. Dee Humphrey ALP [Catalytic activity/Vol] 87 U/L Normal 46-116 [facility] Comment on above: Performed By: #### L IPA, CMP #### [facility] [address] [place] [address] Dr. Dee Humphrey ALT [Catalytic activity/Vol] 31 U/L Normal 14-59 [facility] Comment on above: Performed By: #### L IPA, CMP #### [facility] [address] [place] [address] Dr. Dee Humphrey Anion gap [Moles/Vol] 10.8 mmol/L Normal [facility] Comment on above: Performed By: #### L IPA, CMP #### [facility] [address] [place] [address] Dr. Dee Humphrey AST [Catalytic activity/Vol] 17 U/L Normal 15-37 [facility] Comment on above: Performed By: #### L IPA, CMP #### [facility] [address] [place] [address] Dr. Dee Humphrey Bilirubin [Mass/Vol] 0.1 mg/dL Critically low 0.2-1.0 [facility] Comment on above: Performed By: #### L IPA, CMP #### [facility] [address] [place] [address] Dr. Dee Humphrey Calcium [Mass/Vol] 8.9 mg/dL Normal 8.5-10.1 [facility] Comment on above: Performed By: #### L IPA, CMP #### [facility] [address] [place] [address] Dr. Dee Humphrey Chloride [Moles/Vol] 103 mmol/L Normal 98-107 [facility] Comment on above: Performed By: #### L IPA, CMP #### [facility] [address] [place] [address] Dr. Dee Humphrey CO2 [Moles/Vol] 26.9 mmol/L Normal 21.0-32.0 [facility] Comment on above: Performed By: #### L IPA, CMP #### [facility] [address] [place] [address] Dr. Dee Humphrey Creatinine [Mass/Vol] 0.80 mg/dL Normal 0.55-1.02 [facility] Comment on above: Performed By: #### L IPA, CMP #### [facility] [address] [place] [address] Dr. Dee Humphrey EGFR-AF SPANISH >60 Normal >=60 [facility] Comment on above: Performed By: #### L IPA, CMP #### [facility] [address] [place] [address] Dr. Dee Humphrey EGFR-NON AF SPANISH >60 Normal >=60 [facility] Comment on above: Performed By: #### L IPA, CMP #### [facility] [address] [place] [address] Dr. Dee Humphrey Globulin (S) [Mass/Vol] 3.9 g/dL Normal [facility] Comment on above: Performed By: #### L IPA, CMP #### [facility] [address] [place] [address] Dr. Dee Humphrey Glucose [Mass/Vol] 96 mg/dL Normal 74-106 [facility] Comment on above: Performed By: #### L IPA, CMP #### [facility] [address] [place] [address] Dr. Dee Humphrey Potassium [Moles/Vol] 3.7 mmol/L Normal 3.5-5.1 [facility] Comment on above: Performed By: #### L IPA, CMP #### [facility] [address] [place] [address] Dr. Dee Humphrey Protein [Mass/Vol] 7.8 g/dL Normal 6.4-8.2 [facility] Comment on above: Performed By: #### L IPA, CMP #### [facility] [address] [place] [address] Dr. Dee Humphrey Sodium [Moles/Vol] 137 mmol/L Normal 136-145 [facility] Comment on above: Performed By: #### L IPA, CMP #### [facility] [address] [place] [address] Dr. Dee Humphrey Urea nitrogen [Mass/Vol] 13.0 mg/dL Normal 7.0-18.0 [facility] Comment on above: Performed By: #### L IPA, CMP #### [facility] [address] [place] [address] Dr. Dee Humphrey Urea nitrogen/Creatinine [Mass ratio] 16.2 mg/mg Normal [facility] Comment on above: Performed By: #### L IPA, CMP #### [facility] [address] [place] [address] Dr. Dee Humphrey CBC AUTO DIFFon 03-07-2022 BASO # 0.0 103/ul Normal 0.0-0.1 [facility] Comment on above: Performed By: #### C BC #### [facility] [address] [place] [address] Dr. Dee Humphrey Basophils/100 WBC (Bld) 0.3 % Normal 0.2-2.0 [facility] Comment on above: Performed By: #### C BC #### [facility] [address] [place] [address] Dr. Dee Humphrey EO # 0.1 103/ul Normal 0.0-0.7 [facility] Comment on above: Performed By: #### C BC #### [facility] [address] [place] [address] Dr. Dee Humphrey Eosinophils/100 WBC (Bld) 0.7 % Critically low 0.9-7.0 [facility] Comment on above: Performed By: #### C BC #### [facility] [address] [place] [address] Dr. Dee Humphrey Erythrocyte distribution width (RBC) [Ratio] 13.0 % Normal 11.0-15.0 [facility] Comment on above: Performed By: #### C BC #### [facility] [address] [place] [address] Dr. Dee Humphrey Hematocrit (Bld) [Volume fraction] 39.2 % Normal 36.0-48.0 [facility] Comment on above: Performed By: #### C BC #### [facility] [address] [place] [address] Dr. Dee Humphrey Hemoglobin (Bld) [Mass/Vol] 13.2 g/dL Normal 12.0-16.0 [facility] Comment on above: Performed By: #### C BC #### [facility] [address] [place] [address] Dr. Dee Humphrey IG # 0.05 10e3/ul Critically high 0.00-0.03 [facility] Comment on above: Performed By: #### C BC #### [facility] [address] [place] [address] Dr. Dee Humphrey IG % 0.5 % Normal 0.0-0.5 [facility] Comment on above: Performed By: #### C BC #### [facility] [address] [place] [address] Dr. Dee Humphrey LYMPH # 4.2 103/ul Critically high 1.2-3.8 [facility] Comment on above: Performed By: #### C BC #### [facility] [address] [place] [address] Dr. Dee Humphrey Lymphocytes/100 WBC (Bld) 43.1 % Normal 20.5-60.0 [facility] Comment on above: Performed By: #### C BC #### [facility] [address] [place] [address] Dr. Dee Humphrey MANUAL DIFF REQ NO Normal [facility] Comment on above: Performed By: #### C BC #### [facility] [address] [place] [address] Dr. Dee Humphrey MCH (RBC) [Entitic mass] 30.5 pg Normal 26.7-34.0 [facility] Comment on above: Performed By: #### C BC #### [facility] [address] [place] [address] Dr. Dee Humphrey MCHC (RBC) [Mass/Vol] 33.7 g/dL Normal 29.9-35.2 [facility] Comment on above: Performed By: #### C BC #### [facility] [address] [place] [address] Dr. Dee Humphrey MCV (RBC) [Entitic vol] 90.5 fL Normal 81.0-99.0 [facility] Comment on above: Performed By: #### C BC #### [facility] [address] [place] [address] Dr. Dee Humphrey MONO # 0.4 103/ul Normal 0.3-0.8 [facility] Comment on above: Performed By: #### C BC #### [facility] [address] [place] [address] Dr. Dee Humphrey Monocytes/100 WBC (Bld) 4.4 % Normal 1.7-12.0 [facility] Comment on above: Performed By: #### C BC #### [facility] [address] [place] [address] Dr. Dee Humphrey NEUT # 4.9 103/ul Normal 1.4-6.5 [facility] Comment on above: Performed By: #### C BC #### [facility] [address] [place] [address] Dr. Dee Humphrey Neutrophils/100 WBC (Bld) 51.0 % Normal 43.0-75.0 [facility] Comment on above: Performed By: #### C BC #### [facility] [address] [place] [address] Dr. Dee Humphrey Platelet mean volume (Bld) [Entitic vol] 9.6 fL Normal 9.5-13.5 [facility] Comment on above: Performed By: #### C BC #### [facility] [address] [place] [address] Dr. Dee Humphrey PLT 364 103/ul Normal 150-450 [facility] Comment on above: Performed By: #### C BC #### [facility] [address] [place] [address] Dr. Dee Humphrey RBC 4.33 106/ul Normal 4.20-5.40 [facility] Comment on above: Performed By: #### C BC #### [facility] [address] [place] [address] Dr. Dee Humphrey WBC 9.7 103/ul Normal 4.0-11.0 [facility] Comment on above: Performed By: #### C BC #### [facility] [address] [place] [address] Dr. Dee Humphrey LACTATE/LACTIC ACIDon 2021 Lactate [Moles/Vol] 1.1 mmol/L Normal 0.4-1.9 [facility] Comment on above: Performed By: #### P REGU, ERUR #### [facility] [address] [place] [address] Dr. Dee Humphrey LIPASEon 03-07-2022 Lipase [Catalytic activity/Vol] 79.0 U/L Normal 73.0-393.0 [facility] Comment on above: Performed By: #### C MP, LIPA #### [facility] [address] [place] [address] Dr. Dee Humphrey PROF 14(COMP METB)on 022 Albumin [Mass/Vol] 3.8 g/dL Normal 3.4-5.0 [facility] Comment on above: Performed By: #### C MP, LIPA #### [facility] [address] [address] [address] Dee Humphrey Albumin/Globulin [Mass ratio] 0.9 {ratio} Normal [facility] Comment on above: Performed By: #### C MP, LIPA #### [facility] [address] [address] [address] Dee Humphrey ALP [Catalytic activity/Vol] 80 U/L Normal 46-116 [facility] Comment on above: Performed By: #### C MP, LIPA #### [facility] [address] [address] [address] Dee Humphrey ALT [Catalytic activity/Vol] 27 U/L Normal 14-59 [facility] Comment on above: Performed By: #### C MP, LIPA #### [facility] [address] [address] [address] Dee Humphrey Anion gap [Moles/Vol] 9.5 mmol/L Normal [facility] Comment on above: Performed By: #### C MP, LIPA #### [facility] [address] [address] [address] Dee Humphrey AST [Catalytic activity/Vol] 13 U/L Critically low 15-37 [facility] Comment on above: Performed By: #### C MP, LIPA #### [facility] [address] [address] [address] Dee Humphrey Bilirubin [Mass/Vol] 0.1 mg/dL Critically low 0.2-1.0 [facility] Comment on above: Performed By: #### C MP, LIPA #### [facility] [address] [address] [address] Dee Humphrey Calcium [Mass/Vol] 9.0 mg/dL Normal 8.5-10.1 [facility] Comment on above: Performed By: #### C MP, LIPA #### [facility] [address] [address] [address] Dee Humphrey Chloride [Moles/Vol] 103 mmol/L Normal 98-107 [facility] Comment on above: Performed By: #### C MP, LIPA #### [facility] [address] [address] [address] Dee Humphrey CO2 [Moles/Vol] 27.1 mmol/L Normal 21.0-32.0 [facility] Comment on above: Performed By: #### C MP, LIPA #### [facility] [address] [address] [address] Dee Humphrey Creatinine [Mass/Vol] 0.86 mg/dL Normal 0.55-1.02 [facility] Comment on above: Performed By: #### C MP, LIPA #### [facility] [address] [place] [address] Dr. Dee Humphrey EGFR-AF SPANISH >60 Normal >=60 [facility] Comment on above: Performed By: #### C MP, LIPA #### [facility] [address] [place] [address] Dr. Dee Humphrey EGFR-NON AF SPANISH >60 Normal >=60 [facility] Comment on above: Performed By: #### C MP, LIPA #### [facility] [address] [address] [address] Dee Humphrey Globulin (S) [Mass/Vol] 4.1 g/dL Normal [facility] Comment on above: Performed By: #### C MP, LIPA #### [facility] [address] [place] [address] Dr. Dee Humphrey Glucose [Mass/Vol] 99 mg/dL Normal 74-106 [facility] Comment on above: Performed By: #### C MP, LIPA #### [facility] [address] [place] [address] Dr. Dee Humphrey Potassium [Moles/Vol] 3.6 mmol/L Normal 3.5-5.1 [facility] Comment on above: Performed By: #### C MP, LIPA #### [facility] [address] [address] [address] Dee Humphrey Protein [Mass/Vol] 7.9 g/dL Normal 6.4-8.2 [facility] Comment on above: Performed By: #### C MP, LIPA #### [facility] [address] [address] [address] Dee Humphrey Sodium [Moles/Vol] 136 mmol/L Normal 136-145 [facility] Comment on above: Performed By: #### C MP, LIPA #### [facility] [address] [address] [address] Dee Humphrey Urea nitrogen [Mass/Vol] 12.0 mg/dL Normal 7.0-18.0 [facility] Comment on above: Performed By: #### C MP, LIPA #### [facility] [address] [place] [address] Dr. Dee Humphrey Urea nitrogen/Creatinine [Mass ratio] 14.0 mg/mg Normal [facility] Comment on above: Performed By: #### C MP, LIPA #### [facility] [address] [address] [address] Dee Humphrey Consent for COVID Vaccineon 08-09-2020 SARS-CoV-2 (COVID-19) RNA J LUIS+probe Ql (Unsp spec) [id number]:127 Normal [facility] Consent for Treatmenton 07-30 Consent for Treatment [id number] .[id number]:127 Normal [facility] Coding Summary.on 08-07-2020 Coding Summary. CODING DATE: 08/07/2020 FINAL [facility] STATUS: PAYOR: Luzma APC DESCRIPTION [id number] [...] Paredes Date Saved: 08/07/2020 02:46 pm Normal [facility] Ambulatory Clinical Summaryo n 03-25-2020 Ambulatory Clinical Summary {[id number] Normal [facility] Patient Educationon 03-19-20 20 Patient Education [...] ? an antiviral such as ritonavir; ? [place]'s wort; or ? seizure medicine such as [...] irritable, agitate (more content not included)... Normal [facility] Video Visit - Telehealtho n 02-23-2020 [...] interactive video communications from my office using [employer] due to the restrictions of the COVID-19 pandemic. No physical exam was conducted other than those areas of the body visible to telecommunications with the patient located at [address] [place] [address], with no one else in attendance. If [...] Stopped age (more content not included)... Normal [facility] Comment on above: Result Comment: Elec tronically Signed By: Deepa [facility], Maia Ashley\.br\Date and Time Signed: 02/22/20 23:17 [...] interactive video communications from my office using [employer] due to the restrictions of the COVID-19 pandemic. No physical exam was conducted other than those areas of the body visible to telecommunications with the patient located at [address] [place] [address], with no one else in attendance. If [...] Sister. Depres (more content not included)... Normal [facility] Comment on above: Result Comment: Elec tronically Signed By: [facility]\.mati\Date and Time Signed: 02/11/20 14:46 EDT Video [...] interactive video communications from my office using [employer] due to the restrictions of the COVID-19 pandemic. No physical exam was conducted other than those areas of the body visible to telecommunications with the patient located at [address] [place] [phone], with no one else in attendance. If [...] - Denies (more content not included)... Normal [facility] Comment on above: Result Comment: Elec tronically Signed By: Deepa [facility], Maia Montero.mati\Date and Time Signed: 02/11/20 14:37 EDT Video [...] interactive video communications from my office using [employer] due to the restrictions of the COVID-19 pandemic. No physical exam was conducted other than those areas of the body visible to telecommunications with the patient located at [address] [place] [phone], with no one else in attendance. If [...] Tobacco F (more content not included)... Normal [facility] Comment on above: Result Comment: Elec tronically Signed By: [facility]i\Date and Time Signed: 01/29/20 21:44 EDT Video [...] interactive video communications from my office using [employer] due to the restrictions of the COVID-19 pandemic. No physical exam was conducted other than those areas of the body visible to telecommunications with the patient located at [address] [place], [place] [phone], with no one else in attendance. If [...] Yes, 09 (more content not included)... Normal [facility] Comment on above: Result Comment: Elec tronically Signed By: Deepa [facility], Maia Montero.mati\Date and Time Signed: 01/29/20 21:38 EDT Patient Educationon 01-28-20 20 Patient Education aripiprazole (AR i PIP ra zole) Say Deal Discmelt What is the most important information [...] drow (more content not included)... Normal [facility] Video Visit - Telehealtho n 01-13-2020 Video [...] interactive video communications from my office using [employer] due to the restrictions of the COVID-19 pandemic. No physical exam was conducted other than those areas of the body visible to telecommunications with the patient located at [address] [place] [phone], with no one else in attendance. If [...] Tobacco For (more content not included)... Normal [facility] Comment on above: Result Comment: Judith watts Signed By: Deepa [facility], Maia Montero.mati\Date and Time Signed: 01/13/20 09:40 EDT Patient Educationon 01-13-20 Patient Education aripiprazole (AR i PIP ra zole) Say Deal What is the most important information I [...] include drow (more content not included)... Normal [facility] Video Visit - Telehealtho n 01-07-2020 [...] interactive video communications from my office using [employer] due to the restrictions of the COVID-19 pandemic. No physical exam was conducted other than those areas of the body visible to telecommunications with the patient located at [address] [place] [address], with no one else in attendance. If [...] Use:. N (more content not included)... Normal [facility] Comment on above: Result Comment: Elec tronically Signed By: Deepa [facility], Maia Montero.br\Date and Time Signed: 01/07/20 12:38 [...] interactive video communications from my office using [employer] due to the restrictions of the COVID-19 pandemic. No physical exam was conducted other than those areas of the body visible to telecommunications with the patient located at [address] [place] [address], with no one else in attendance. If [...] Father and (more content not included)... Normal [facility] Comment on above: Result Comment: Elec tronically Signed By: Deepa [facility], Maia Montero.mati\Date and Time Signed: 12/30/19 13:50 EDT Video [...] interactive video communications from my office using [employer] due to the restrictions of the COVID-19 pandemic. No physical exam was conducted other than those areas of the body visible to telecommunications with the patient located at [address] [place] [phone], with no one else in attendance. If [...] Alcohol U (more content not included)... Normal [facility] Comment on above: Result Comment: Elec tronically Signed By: Deepa [facility], Maia Ashley\.mati\Date and Time Signed: 12/23/19 16:54 EDT Patient Educationon 12-23-19 20 Patient Education aripiprazole (AR i PIP ra welsh) Say Deal What is the most important information I [...] include drow (more content not included)... Normal [facility] Video Visit - Telehealtho n 12-04-2019 [...] interactive video communications from my office using [employer] due to the restrictions of the COVID-19 pandemic. No physical exam was conducted other than those areas of the body visible to telecommunications with the patient located at [address] [place], [place] [phone], with no one else in attendance. If [...] Daily, 5 (more content not included)... Normal [facility] Comment on above: Result Comment: Elec tronically Signed By: Deepa [facility], Maia Montero.mati\Date and Time Signed: 12/04/19 09:42 EDT Patient Educationon 08-03-20 20 Patient Education bupropion (byoo PRO pee [...] rate, h (more content not included)... Normal [facility] Vital Signs Date Time Vital Sign Value Performing Clinician Facility 08-18-2023 14:24-0400 Body height 160.02 cm [facility] 08-18-2023 14:24-0400 Body mass index (BMI) [Ratio] 40.2 kg/m2 [facility] 08-18-2023 14:24-0400 Body temperature 98.4 [degF] [facility] 08-18-2023 14:24-0400 Body weight 103.02 kg [facility] 08-18-2023 14:24-0400 Diastolic blood pressure 81 mm[Hg] [facility] 08-18-2023 14:24-0400 Heart rate 101 /min [facility] 08-18-2023 14:24-0400 Respiratory rate 16 /min [facility] 08-18-2023 14:24-0400 SaO2% (BldA) [Mass fraction] 98 % [facility] 08-18-2023 14:24-0400 Systolic blood pressure 133 mm[Hg] [facility] 04-27-2023 16:30-0500 Body height 160.02 cm Sanaz Lockwood Other [facility] Other 04-27-2023 16:30-0500 Body mass index (BMI) [Ratio] 40.92 kg/m2 Sanaz Lockwood Other [employer] [facility] Other 04-27-2023 16:30-0500 Body temperature 98.2 [degF] Sanaz Lockwood Other [employer] [facility] Other 04-27-2023 16:30-0500 Body weight 104.78 kg Sanaz Lockwood Other [facility] Other 04-27-2023 16:30-0500 Respiratory rate 18 /min Sanaz Lockwood Other [facility] Other 04-27-2023 16:30-0500 SaO2% (BldA) [Mass fraction] 99 % Sanaz Lockwood Other [facility] Other 05-10-2022 14:45-0500 Body height 160.02 cm Kaylah Han Other [facility] Other 05-10-2022 14:45-0500 Body mass index (BMI) [Ratio] 38.97 kg/m2 Kaylah Guille Other [facility] Other 05-10-2022 14:45-0500 Body temperature 99.3 [degF] Kaylah Han Other [facility] Other 05-10-2022 14:45-0500 Body weight 99.79 kg Kaylah Han Other [facility] Other 06-29-2019 22:40-0500 Pulse (Heart Rate) 84 /min [facility] 06-29-2019 22:40-0500 Pulse Oximetry 97 % [facility] 06-29-2019 22:35-0500 BP Diastolic 56 mm[Hg] [facility] 06-29-2019 22:35-0500 BP Systolic 100 mm[Hg] [facility] 06-29-2019 21:11-0500 BMI (Body Mass Index) 33.1 kg/m2 [facility] 06-29-2019 21:11-0500 Body Temperature 97.8 [degF] Kimberlyn Xie [facility] 06-29-2019 21:11-0500 Body weight 84.8 kg Kimberlyn [facility] 06-29-2019 21:11-0500 Height 160.02 cm [facility] 06-29-2019 21:110500 Respiratory Rate 20 /min Kimberlyn [facility] Encounters Encounter Date Encounter Type Care Provider Facility Start: 01-03-2024 End: 01-03-2024 ambulatory GUERRERO DUQUE Not Available Start: 12-25-2023 End: 12-25-2023 ambulatory MAKENZIE SARAY Not Available Start: 11-24-2023 End: 11-24-2023 ambulatory MAKENZIE SARAY Not Available Start: 08-18-2023 End: 08-18-2023 ambulatory [facility] Work Phone: Start: 08-18-2023 End: 08-18-2023 Patient encounter procedure [facility] Work Phone: Start: 04-27-2023 End: 04-27-2023 ambulatory Sanaz Lockwood Other [facility] Other Start: 04-27-2023 Office outpatient visit 25 minutes Sanaz Lockwood [facility] Start: 05-10-2022 End: 05-10-2022 ambulatory Kaylahpedrito Han Other [facility] Other Start: 05-10-2022 Office outpatient ne w 20 minutes Kaylahpedrito Han [facility] Start: 04-27-2022 End: 04-27-2022 ambulatory KIMBERLYN XIE Facility:[facility] Start: 03-07-2022 End: 03-07-2022 ambulatory KIMBERLYN XIE Facility:[facility] Start: 09-23-[address] JAZIEL HILL Facility :[facility] Start: 06-29-2019 End: 06-29-2019 Emergency department patient visit [facility] Procedures Date Procedure Procedure Detail Performing Clinician Start: 08-18-2023 Quick Strep (POC) Plan of Treatment Date Care Activity Detail Author Patient Education Epinephrine (B y injection) Anaphylaxis (ED) General Allergic Reaction (ED) [facility] Patient referral [facility] Payers Date Payer Category Payer Unknown [id number] 2.16.84 [id number] 1987 Unknown [id number] 2.16.84 [id number] 1987 Unknown [id number] 2.16.84 [id number] 1987 Unknown [id number] 2.16.84 [id number] 1987 Unknown [id number] 2.16.84 [id number] 1987 Unknown [id number] 2.16.84 [id number] 1959 Self-pay [id number] 1959 Unknown [id number] Private Health Insurance [id number] Self-pay Self Pay [id number] Social History Date Type Detail Facility Start: 06-29-2019 End: 08-18-2023 Tobacco smoking status NHIS Smoker (finding) [facility] Start: 1985 Sex Assigned At Female F [facility] Sex Assigned At Sex Assigned At Bir th [facility] Other Goals Date Patient Goal Desired Activity [...] condition. Mar, Sore throat (ICD-10 - J02.9) [facility] Other 01-10-2023 Evaluation note* Encounter Date Diagnosis [...] weeks for the cough to go away [facility] Other 11-07-2022 NoteIndication: Abdominal pain. Comparison: None [...] Electronically authenticated by: SURJIT FREITAS Date: 2022-03-07 20:49[facility]11-19-2020 NoteHPI Staff This visit was conducted via phone communications from my office due to the restrictions of the COVID-19 pandemic. No physical exam was conducted due to audio only communication with the patient located at [address] [place] [phone], with no one else. If it is determined that the patientshould be evaluated in person, the patient will be directed to the appropriate clinic or venue. Thepatient or their guardian verbally consented to this visit. Phone time was 15 minutes discussing health issues with counseling and coordination of care. Subjective Interval History/HPI Patient presents today for follow up via telehealth phone from [facility]. Patient started Latuda 20mg last evening with [...] anxiety, # 30 tab(s), Refills(s) 2, Pharmacy: [facility]/pharmacy #[id number], 161, cm, 12/23/19 10:18:00 EDT, Height/Length Dosing, 82, kg, 12/23/19 10:18:00 EDT, Weight Dosing Orders: lurasidone, 20 mg = 1 tab(s), Oral, Daily, with 350 calories; begin this dose first then progress to next dose of 40mg, X 1 week(s), # 7 tab(s), Refills(s) 0, Pharmacy: [facility]/pharmacy #[id number], 161, cm, 12/23/19 10:18:00 EDT, Height/Length Dosing, 82, kg, 12/23/19 10:... lurasidone, 40 mg = 1 tab(s), Oral, Daily, with 350 calories, # 30 tab(s), Refills(s) 1, Pharmacy: [facility]/pharmacy #[id number], 161, cm, 12/23/19 10:18:00 EDT, [...] (generalized anxiety disorder) Hidr (more content not included)...[facility] Result Comment: Electronically Signed By: Carlota RODRIGUEZ CNP\.br\Date and Time Signed: 03/19/20 14:27 [id number] NoteI Staff This visit was conducted via two-way, real-time interactive video communications from my office using [employer] due to the restrictions of the COVID-19 pandemic. No physical exam was conducted other than those areas of the body visible to telecommunications with the patient located at [address] [place] [address], with no one else in attendance. If [...] Ordered: TELEHEALTH Office Visit Level 3 Est 99040 General Treatment Plan Maintain medication regimen _Improve [...] Employed, 03/18/2019 Home/Environment Lani (more content not included)...[facility]: Result Comment: Electronically Signed By: Carlota RODRIGUEZ CNP\Date and Time Signed: 03/05/20 13:32 [id number] NoteI Staff This visit was conducted via two-way, real-time interactive video communications from my office using [employer] due to the restrictions of the COVID-19 pandemic. No physical exam was conducted other than those areas of the body visible to telecommunications with the patient located at [address] [place] [phone], with no one else in attendance. If [...] anxiety, # 30 tab(s), Refills(s) 1, [id number], cm, 12/23/19 10:18:00 EDT, Height/Length Dosing, 82, kg, 12/23/19 10:18:00 EDT, Weight Dosing alprazolam, 0.5 mg = 1 tab(s), Oral, TID, PRN for anxiety, # 30 tab(s), Refills(s) 1, [id number] 161, cm, 12/23/19 10:18:00 EDT, Height/Length Dosing, 82, kg, 12/23/19 10:18:00 EDT, Weight Dosing aripiprazole, See Instructions, 1.5 tab po qAM, # 30 tab(s), Refills(s) 2, Pharmacy: [facility]/pharmacy #[id number], 161, cm, 12/23/19 10:18:00 EDT, Height/Length Dosing, 82, kg, 12/23/19 10:18:00 EDT, Weight Dosing aripiprazole, See Instructions, 1 tab po qAM, # 30 tab(s), Refills(s) 5, Pharmacy: [facility]/pharmacy #[id number], 161, cm, 12/23/19 10:18:00 EDT, Height/Length Dosing, 82, kg, 12/23/19 10:18:00 EDT, Weight Dosing cyclobenzaprine, 10 mg = 1 tab(s), Oral, TID, PRN for spasm, # 30 tab(s), Refills(s) 1, Pharmacy: [facility]/pharmacy #[id number], 161, cm, 06/13/19 14:39:00 EST, Height/Length Measured, 82, kg, 06/13/19 14:39:00EST, Weight Measured cyclobenzaprine, 10 mg = 1 tab(s), Oral, TID, PRN for spasm, # 30 tab(s), Refills(s) 1, Pharmacy: [facility]/pharmacy #[id number], 161, cm, 12/23/19 10:18:00 EDT, Height/Length Dosing, 82, kg, 12/23/19 10:18:00 EDT, Weight Dosing General Treatment Plan Maintain medication regimen _Improve mood stability _Improve anxiety control _Improve social and interpersonal functioning Clinical Global Impression 62 Prognosis progressing Follow-up With When Contact Information Carlota RODRIGUEZ CNP In 4 weeks Additional Instructions: (more content not included)...[facility]:Result Comment: Electronically Signed By: Carlota RODRIGUEZ CNP\.br\Date and Time Signed: 01/27/20 22:35 [id number] NoteI Staff This visit was conducted via two-way, real-time interactive video communications from my office using [employer] due to the restrictions of the COVID-19 pandemic. No physical exam was conducted other than those areas of the body visible to telecommunications with the patient located at [address] [place], [place] [phone], with no one else in attendance. If [...] Ordered: TELEHEALTH Office Visit Level 3 Est [address] General Treatment Plan Maintain medication regimen _Improve [...] Use:. Never Smokeless Tob (more content not included)...[facility] on above:Result Comment: Electronically Signed By: Carlota RODRIGUEZ CNP\.br\Date and Time Signed: 01/13/20 09:11 [id number] NoteI Staff This visit was conducted via two-way, real-time interactive video communications from my office using [employer] due to the restrictions of the COVID-19 pandemic. No physical exam was conducted other than those areas of the body visible to telecommunications with the patient located at [address] [place] [address], with no one else in attendance. If [...] d/c welbutrin reviewed past meds with patient, start abilify qAM. reviewed side effects of SGA meds including: Second generation antipsychotic medications can cause headache, drowsiness, agitation, dizziness, nausea, or extrapyramidal symptoms such as tremors, muscle spasms, slowness of movement or jerking of muscles. Orders: alprazolam, 0.5 mg = 1 tab(s), Oral, TID, PRN for anxiety, # 30 tab(s), Refills(s) 1, [id number], cm, 12/23/19 10:18:00 EDT, Height/Length Dosing, 82, kg, 12/23/19 10:18:00 EDT, Weight Dosing alprazolam, 0.5 mg = 1 tab(s), Oral, TID, PRN for anxiety, # 30 tab(s), Refills(s) 1, Pharmacy: [facility]/pharmacy #[id number], 161, cm, 06/13/19 14:39:00 EST, Height/Length Measured, 82, kg, 06/13/19 14:39:00 EST, Weight Measured aripiprazole, See Instructions, 1 tab po qAM, # 30 tab(s), Refills(s) 0, [id number] 161, cm, 12/23/19 10:18:00 EDT, Height/Length [...] Allergies Bactrim Social History (more content not included)...[facility]Comment [facility] above:Result Comment: Electronically Signed By: Carlota RODRIGUEZ CNP\Date and Time Signed: 12/23/19 16:37 [id number] NoteHPI Staff This visit was conducted via two-way, real-time interactive video communications from my office using [employer] due to the restrictions of the COVID-19 pandemic. No physical exam was conducted other than those areas of the body visible to telecommunications with the patient located at [address] [place] [address], with no one else in attendance. If [...] q24hr, # 30 tab(s), Refills(s) 2, Pharmacy: [facility]/pharmacy #[id number],161, cm, 06/13/19 14:39:00 EST, Height/Length Measured, 82, kg, 06/13/19 14:39:00 EST, Weight Measured cyclobenzaprine, 10 mg = 1 tab(s), Oral, TID, PRN for spasm, # 30 tab(s), Refills(s) 1, Pharmacy: [facility]/pharmacy #[id number], 161, cm, 06/13/19 14:39:00 EST, [...] Employment/School Employed, 03/18/2019 Home/Environment (more content not included)...[facility]Comment on above:Result Comment: Electronically Signed By: Carlota RODRIGUEZ CNP\.br\Date and Time Signed: 12/02/19 16:38 EDTChief complaint+Reason for visit Narrative* Chief Complaint Nausea, diarrhea, fe zhou Reason for Visit Contact with and (louis spected) exposure to covid-19 Sore throat [facility] Work Phone: Evaluation note* Diagnosis Onset Date Resolution Status Contact with and (suspected) exposure to covid-19 noneactive Sore throat noneactive [facility] Work Phone: History general Narrative - Reported* Type Description Date Medical History Bipolar Surgical History appendectomy Surgical History x 3 Hospitalization History see above surgical histo ry [facility] Other Advance Directives No Advanced Directives Records [...] may need to be seen by an fire alarm dispatcher if you have other events like this without definite egg exposure. Summary Purpose Family History No Family History Records Found Relationship Condition Age at Onset Recorded Date/T alo father Diabetes mellitus Unknown Hypertension Unknown Additional Source Comments INFORMATION SOURCE (unrecogn ized section and content) DATE CREATED AUTHOR 10/30/[address] [employer] [facility] DATE CREATED AUTHOR AUTHOR'S ORGANIZ ATION 04/29/2022 [facility] DATE CREATED AUTHOR AUTHOR'S ORGANIZ ATION 01/05/2024 [facility] EPIC REASON FOR VISIT (unrecogniz ed section and content) COUGH, CONGESTIONUPPER RESPI TORY, CONGESTON, SORE THROAT, BAD COUGH Care Teams (unrecognized sec tion and content) Team Status: Active Member Role Status Dates Kimberlyn Xie NP-Tori Primary Care Provider Active Team Status: Inactive [...] BE BASED ON THE PRIMARY CLINICAL RECORDS. [facility] [employer] [facility]. provides no warranty or guarantee of the accuracy or completeness of information in this document.
[2024-01-26 02:08] LABS: AFP Value 35.9 ng/mL (.); Gest. Age on Collection Date 17.9 weeks (.); Gestat. Age Based On As provided (.); Insulin Dep Diabetes No (.); Maternal Age At EDD 37.1 yr (.); OSBR Risk 1 IN 9540 (.); Results Report (.)
== END 2024-01-24 12:48 | disposition home or self-care (01) ==
LOC: LAB 12:48
PROVIDERS: PCP Nurse Practitioner Family; Visit Provider Obstetrics & Gynecology
DX: Z34.92 Encounter for supervision of normal pregnancy, unspecified, second trimester (principal); Z3A.18 18 weeks gestation of pregnancy
CPT/HCPCS: 36415; 82105

== ENCOUNTER 2024-01-24 21:27 | Outpatient (REF) | payer BC, SELFPAY ==
--- OUTSIDE RECORDS SUMMARY | 2024-01-24 21:30 | XMS_ITS | CCD ---
Author Organization [facility] Inform ion Partnership [facility] Care Team Providers Care Curb Supervisor Name Role Phone Kimberlyn Xie Primary Care [...] egg extract Drug Allergy 08-18-19 24 Vomiting [facility] (2 sources) Sulfamethoxazole Drug Allergy 08-18-19 24 Unknown Reaction, Unknown Reaction, [facility] (2 sources) Trimethoprim Drug Allergy 08-18-19 24 Unknown Reaction, Unknown Reaction, [facility] (2 sources) Fish Containing Products Propensity to adverse reactions 08-18-19 24 Difficulty Breathing [facility] (1 source) Sulfamethoxazole / Trimethoprim Drug Allergy 02-04-20 13 [facility] (2 sources) Sulfamethoxazole / [facility]oprim [facility] Other Medications Current Medications Medication Drug Class(es) Dates Sig (Normalized) Sig (Original) [id number] 200 actuat albuterol 0.09 mg/actuat metered dose [...] oral tablet (1 source) alpha-Adrenergic Agonist, Uncompetitive E-gijzqy-N-asparta te Receptor Antagonist, Sigma-1 Agonist Start: 04-27-2023 take 4 tablets by mouth every twenty-four hours as needed Capmist DM 60-15-400 MG as needed Orally every 4-6 hours as needed, max 4 tablets in 24 hours for 5 days Mar, Active [id number] 0.3 ml EPINEPHrine 1 mg/ml auto-injector (2 [...] 03-09-2022 Episodic Other aftercare (1 source) 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 pyogenes Org specific cx Ql (Throat) Negative [employer] Other Quick Strep [employer] Other COVID/FLU/RSV RT-PCRon 05-10 SARS-CoV-2 (COVID-19) RNA J LUIS+probe Ql (Unsp spec) Negative [employer] Other COVID/FLU/RSV RT-PCR Positive [facility] [employer] Other COVID/FLU/RSV RT-PCR Negative [facility] Other CBC AUTO DIFFon 04-27-2022 BASO # 0.0 103/ul Normal 0.0-0.1 [facility] Comment on above: Performed By: #### C BC #### [facility] [address] [place] [address] Dr. Dee Humphrey Basophils/100 WBC (Bld) 0.2 % Normal 0.2-2.0 [facility] Comment on above: Performed By: #### C BC #### [facility] [address] [address] [address] Dee Humphrey EO # 0.1 103/ul Normal 0.0-0.7 [facility] Comment on above: Performed By: #### C BC #### [facility] [address] [place] [address] Dr. Dee Humphrey Eosinophils/100 WBC (Bld) 0.6 % Critically low 0.9-7.0 [facility] Comment on above: Performed By: #### C BC #### [facility] [address] [place] [address] Dr. Dee Humphrey Erythrocyte distribution width (RBC) [Ratio] 14.1 % Normal 11.0-15.0 [facility] Comment on above: Performed By: #### C BC #### [facility] [address] [place] [address] Dr. Dee Humphrey Hematocrit (Bld) [Volume fraction] 37.1 % Normal 36.0-48.0 [facility] Comment on above: Performed By: #### C BC #### [facility] [address] [place] [address] Dr. Dee Humphrey Hemoglobin (Bld) [Mass/Vol] 12.4 g/dL Normal 12.0-16.0 [facility] Comment on above: Performed By: #### C BC #### [facility] [address] [place] [address] Dr. Dee Humphrey IG # 0.06 10e3/ul Critically high 0.00-0.03 [facility] Comment on above: Performed By: #### C BC #### [facility] [address] [place] [address] Dr. Dee Humphrey IG % 0.5 % Normal 0.0-0.5 [facility] Comment on above: Performed By: #### C BC #### [facility] [address] [place] [address] Dr. Dee Humphrey LYMPH # 3.7 103/ul Normal 1.2-3.8 [facility] Comment on above: Performed By: #### C BC #### [facility] [address] [place] [address] Dr. Dee Humphrey Lymphocytes/100 WBC (Bld) 28.7 % Normal 20.5-60.0 [facility] Comment on above: Performed By: #### C BC #### [facility] [address] [place] [address] Dr. Dee Humphrey MANUAL DIFF REQ NO Normal [facility] Comment on above: Performed By: #### C BC #### [facility] [address] [place] [address] Dr. Dee Humphrey MCH (RBC) [Entitic mass] 30.2 pg Normal 26.7-34.0 [facility] Comment on above: Performed By: #### C BC #### [facility] [address] [place] [address] Dr. Dee Humphrey MCHC (RBC) [Mass/Vol] 33.4 g/dL Normal 29.9-35.2 [facility] Comment on above: Performed By: #### C BC #### [facility] [address] [place] [address] Dr. Dee Humphrey MCV (RBC) [Entitic vol] 90.5 fL Normal 81.0-99.0 [facility] Comment on above: Performed By: #### C BC #### [facility] [address] [place] [address] Dr. Dee Humphrey MONO # 0.7 103/ul Normal 0.3-0.8 [facility] Comment on above: Performed By: #### C BC #### [facility] [address] [place] [address] Dr. Dee Humphrey Monocytes/100 WBC (Bld) 5.0 % Normal 1.7-12.0 [facility] Comment on above: Performed By: #### C BC #### [facility] [address] [place] [address] Dr. Dee Humphrey NEUT # 8.5 103/ul Critically high 1.4-6.5 [facility] Comment on above: Performed By: #### C BC #### [facility] [address] [place] [address] Dr. Dee Humphrey Neutrophils/100 WBC (Bld) 65.0 % Normal 43.0-75.0 [facility] Comment on above: Performed By: #### C BC #### [facility] [address] [place] [address] Dr. Dee Humphrey Platelet mean volume (Bld) [Entitic vol] 9.6 fL Normal 9.5-13.5 [facility] Comment on above: Performed By: #### C BC #### [facility] [address] [place] [address] Dr. Dee Humphrey PLT 317 103/ul Normal 150-450 [facility] Comment on above: Performed By: #### C BC #### [facility] [address] [place] [address] Dr. Dee Humphrey RBC 4.10 106/ul Critically low 4.20-5.40 [facility] Comment on above: Performed By: #### C BC #### [facility] [address] [place] [address] Dr. Dee Humphrey WBC 13.1 103/ul Critically high 4.0-11.0 [facility] Comment on above: Performed By: #### C BC #### [facility] [address] [place] [address] ABD/PELVIS WO CONon [...] ROCIO CHAU Date: 2022-04-27 20:24 Normal [facility] ER URINE PROFILEon 2 Bilirubin Ql (U) Negative Normal NEGATIVE [facility] Comment on above: Performed By: #### P REGU, ERUR #### [facility] [address] [place] [address] Dr. Dee Humphrey Clarity (U) CLEAR Normal CLEAR [facility] Comment on above: Performed By: #### P REGU, ERUR #### [facility] [address] [place] [address] Dr. Dee Humphrey Color (U) YELLOW Normal YELLOW [facility] Comment on above: Performed By: #### P REGU, ERUR #### [facility] [address] [place] [address] Dr. Dee Humphrey ERUAHD A micrscopic examination will be performed if indicated. Normal [facility] Comment on above: Performed By: #### P REGU, ERUR #### [facility] [address] [place] [address] Dr. Dee Humphrey Glucose Ql (U) Negative Normal NEGATIVE [facility] Comment on above: Performed By: #### P REGU, ERUR #### [facility] [address] [place] [address] Dr. Dee Humphrey Hemoglobin Ql (U) Negative Normal NEGATIVE [facility] Comment on above: Performed By: #### P REGU, ERUR #### [facility] [address] [place] [address] Dr. Dee Humphrey Ketones Ql (U) Negative Normal NEGATIVE [facility] Comment on above: Performed By: #### P REGU, ERUR #### [facility] [address] [place] [address] Dr. Dee Humphrey LEUKOCYTES Negative Normal NEGATIVE [facility] Comment on above: Performed By: #### P REGU, ERUR #### [facility] [address] [place] [address] Dr. Dee Humphrey Nitrite Ql (U) Negative Normal NEGATIVE [facility] Comment on above: Performed By: #### P REGU, ERUR #### [facility] [address] [place] [address] Dr. Dee Humphrey pH (U) 5.5 [pH] Normal 5-9 [facility] Comment on above: Performed By: #### P REGU, ERUR #### [facility] [address] [place] [address] Dr. Dee Humphrey SPEC GRAVITY >=1.030 Abnormal 1.005-<=1.02 5 [facility] Comment on above: Performed By: #### P REGU, ERUR #### [facility] [address] [place] [address] Dr. Dee Humphrey UA PROTEIN Negative Normal NEGATIVE/ TRACE [facility] Comment on above: Performed By: #### P REGU, ERUR #### [facility] [address] [place] [address] Dr. Dee Humphrey UR MICRO IND NOT INDICATED Normal [facility] Comment on above: Performed By: #### P REGU, ERUR #### [facility] [address] [place] [address] Dr. Dee Humphrey Urobilinogen Qn (U) 0.2 {Blanca'U}/dL Normal 0.2 - 1. 0 [facility] Comment on above: Performed By: #### P REGU, ERUR #### [facility] [address] [place] [address] Dr. Dee Humphrey LIPASEon 04-27-2022 Lipase [Catalytic activity/Vol] 94.0 U/L Normal 73.0-393.0 [facility] Comment on above: Performed By: #### L IPA, CMP #### [facility] [address] [place] [address] Dr. Dee Humphrey URon 04-27-2022 , QUAL Negative Normal NEGATIVE [facility] Comment on above: Performed By: #### P REGU, ERUR #### [facility] [address] [place] [address] Dr. Dee Humphrey PROF 14(COMP METB)on 022 Albumin [Mass/Vol] 3.9 g/dL Normal 3.4-5.0 [facility] Comment on above: Performed By: #### L IPA, CMP #### [facility] [address] [place] [address] Dr. Dee Humphrey Albumin/Globulin [Mass ratio] 1.0 {ratio} Normal [facility] Comment on above: Performed By: #### L IPA, CMP #### [facility] [address] [place] [address] Dr. Dee Humphrey ALP [Catalytic activity/Vol] 87 U/L Normal 46-116 [facility] Comment on above: Performed By: #### L IPA, CMP #### [facility] [address] [place] [address] Dr. Dee Humphrey ALT [Catalytic activity/Vol] 31 U/L Normal 14-59 [facility] Comment on above: Performed By: #### L IPA, CMP #### [facility] [address] [place] [address] Dr. Dee Humphrey Anion gap [Moles/Vol] 10.8 mmol/L Normal [facility] Comment on above: Performed By: #### L IPA, CMP #### [facility] [address] [place] [address] Dr. Dee Humphrey AST [Catalytic activity/Vol] 17 U/L Normal 15-37 [facility] Comment on above: Performed By: #### L IPA, CMP #### [facility] [address] [place] [address] Dr. Dee Humphrey Bilirubin [Mass/Vol] 0.1 mg/dL Critically low 0.2-1.0 [facility] Comment on above: Performed By: #### L IPA, CMP #### [facility] [address] [place] [address] Dr. Dee Humphrey Calcium [Mass/Vol] 8.9 mg/dL Normal 8.5-10.1 [facility] Comment on above: Performed By: #### L IPA, CMP #### [facility] [address] [place] [address] Dr. Dee Humphrey Chloride [Moles/Vol] 103 mmol/L Normal 98-107 [facility] Comment on above: Performed By: #### L IPA, CMP #### [facility] [address] [place] [address] Dr. Dee Humphrey CO2 [Moles/Vol] 26.9 mmol/L Normal 21.0-32.0 [facility] Comment on above: Performed By: #### L IPA, CMP #### [facility] [address] [place] [address] Dr. Dee Humphrey Creatinine [Mass/Vol] 0.80 mg/dL Normal 0.55-1.02 [facility] Comment on above: Performed By: #### L IPA, CMP #### [facility] [address] [place] [address] Dr. Dee Humphrey EGFR-AF BELIZEAN >60 Normal >=60 [facility] Comment on above: Performed By: #### L IPA, CMP #### [facility] [address] [place] [address] Dr. Dee Humphrey EGFR-NON AF BELIZEAN >60 Normal >=60 [facility] Comment on above: Performed By: #### L IPA, CMP #### [facility] [address] [place] [address] Dr. Dee Humphrey Globulin (S) [Mass/Vol] 3.9 g/dL Normal [facility] Comment on above: Performed By: #### L IPA, CMP #### [facility] [address] [place] [address] Dr. Dee Humphrey Glucose [Mass/Vol] 96 mg/dL Normal 74-106 [facility] Comment on above: Performed By: #### L IPA, CMP #### [facility] [address] [place] [address] Dr. Dee Humphrey Potassium [Moles/Vol] 3.7 mmol/L Normal 3.5-5.1 [facility] Comment on above: Performed By: #### L IPA, CMP #### [facility] [address] [place] [address] Dr. Dee Humphrey Protein [Mass/Vol] 7.8 g/dL Normal 6.4-8.2 [facility] Comment on above: Performed By: #### L IPA, CMP #### [facility] [address] [place] [address] Dr. Dee Humphrey Sodium [Moles/Vol] 137 mmol/L Normal 136-145 [facility] Comment on above: Performed By: #### L IPA, CMP #### [facility] [address] [place] [address] Dr. Dee Humphrey Urea nitrogen [Mass/Vol] 13.0 mg/dL Normal 7.0-18.0 [facility] Comment on above: Performed By: #### L IPA, CMP #### [facility] [address] [place] [address] Dr. Dee Humphrey Urea nitrogen/Creatinine [Mass ratio] 16.2 mg/mg Normal [facility] Comment on above: Performed By: #### L IPA, CMP #### [facility] [address] [place] [address] Dr. Dee Humphrey CBC AUTO DIFFon 03-07-2022 BASO # 0.0 103/ul Normal 0.0-0.1 [facility] Comment on above: Performed By: #### C BC #### [facility] [address] [place] [address] Dr. Dee Humphrey Basophils/100 WBC (Bld) 0.3 % Normal 0.2-2.0 [facility] Comment on above: Performed By: #### C BC #### [facility] [address] [place] [address] Dr. Dee Humphrey EO # 0.1 103/ul Normal 0.0-0.7 [facility] Comment on above: Performed By: #### C BC #### [facility] [address] [place] [address] Dr. Dee Humphrey Eosinophils/100 WBC (Bld) 0.7 % Critically low 0.9-7.0 [facility] Comment on above: Performed By: #### C BC #### [facility] [address] [place] [address] Dr. Dee Humphrey Erythrocyte distribution width (RBC) [Ratio] 13.0 % Normal 11.0-15.0 [facility] Comment on above: Performed By: #### C BC #### [facility] [address] [place] [address] Dr. Dee Humphrey Hematocrit (Bld) [Volume fraction] 39.2 % Normal 36.0-48.0 [facility] Comment on above: Performed By: #### C BC #### [facility] [address] [place] [address] Dr. Dee Humphrey Hemoglobin (Bld) [Mass/Vol] 13.2 g/dL Normal 12.0-16.0 [facility] Comment on above: Performed By: #### C BC #### [facility] [address] [place] [address] Dr. Dee Humphrey IG # 0.05 10e3/ul Critically high 0.00-0.03 [facility] Comment on above: Performed By: #### C BC #### [facility] [address] [place] [address] Dr. Dee Humphrey IG % 0.5 % Normal 0.0-0.5 [facility] Comment on above: Performed By: #### C BC #### [facility] [address] [place] [address] Dr. Dee Humphrey LYMPH # 4.2 103/ul Critically high 1.2-3.8 [facility] Comment on above: Performed By: #### C BC #### [facility] [address] [place] [address] Dr. Dee Humphrey Lymphocytes/100 WBC (Bld) 43.1 % Normal 20.5-60.0 [facility] Comment on above: Performed By: #### C BC #### [facility] [address] [place] [address] Dr. Dee Humphrey MANUAL DIFF REQ NO Normal [facility] Comment on above: Performed By: #### C BC #### [facility] [address] [place] [address] Dr. Dee Humphrey MCH (RBC) [Entitic mass] 30.5 pg Normal 26.7-34.0 [facility] Comment on above: Performed By: #### C BC #### [facility] [address] [place] [address] Dr. Dee Humphrey MCHC (RBC) [Mass/Vol] 33.7 g/dL Normal 29.9-35.2 [facility] Comment on above: Performed By: #### C BC #### [facility] [address] [place] [address] Dr. Dee Humphrey MCV (RBC) [Entitic vol] 90.5 fL Normal 81.0-99.0 [facility] Comment on above: Performed By: #### C BC #### [facility] [address] [place] [address] Dr. Dee Humphrey MONO # 0.4 103/ul Normal 0.3-0.8 [facility] Comment on above: Performed By: #### C BC #### [facility] [address] [place] [address] Dr. Dee Humphrey Monocytes/100 WBC (Bld) 4.4 % Normal 1.7-12.0 [facility] Comment on above: Performed By: #### C BC #### [facility] [address] [place] [address] Dr. Dee Humphrey NEUT # 4.9 103/ul Normal 1.4-6.5 [facility] Comment on above: Performed By: #### C BC #### [facility] [address] [place] [address] Dr. Dee Humphrey Neutrophils/100 WBC (Bld) 51.0 % Normal 43.0-75.0 [facility] Comment on above: Performed By: #### C BC #### [facility] [address] [place] [address] Dr. Dee Humphrey Platelet mean volume (Bld) [Entitic vol] 9.6 fL Normal 9.5-13.5 [facility] Comment on above: Performed By: #### C BC #### [facility] [address] [place] [address] Dr. Dee Humphrey PLT 364 103/ul Normal 150-450 [facility] Comment on above: Performed By: #### C BC #### [facility] [address] [place] [address] Dr. Dee Humphrey RBC 4.33 106/ul Normal 4.20-5.40 [facility] Comment on above: Performed By: #### C BC #### [facility] [address] [place] [address] Dr. Dee Humphrey WBC 9.7 103/ul Normal 4.0-11.0 [facility] Comment on above: Performed By: #### C BC #### [facility] [address] [place] [address] Dr. Dee Humphrey LACTATE/LACTIC ACIDon 2021 Lactate [Moles/Vol] 1.1 mmol/L Normal 0.4-1.9 [facility] Comment on above: Performed By: #### P REGU, ERUR #### [facility] [address] [place] [address] Dr. Dee Humphrey LIPASEon 03-07-2022 Lipase [Catalytic activity/Vol] 79.0 U/L Normal 73.0-393.0 [facility] Comment on above: Performed By: #### C MP, LIPA #### [facility] [address] [place] [address] Dr. Dee Humphrey PROF 14(COMP METB)on 022 Albumin [Mass/Vol] 3.8 g/dL Normal 3.4-5.0 [facility] Comment on above: Performed By: #### C MP, LIPA #### [facility] [address] [address] [address] Dee Humphrey Albumin/Globulin [Mass ratio] 0.9 {ratio} Normal [facility] Comment on above: Performed By: #### C MP, LIPA #### [facility] [address] [address] [address] Dee Humphrey ALP [Catalytic activity/Vol] 80 U/L Normal 46-116 [facility] Comment on above: Performed By: #### C MP, LIPA #### [facility] [address] [address] [address] Dee Humphrey ALT [Catalytic activity/Vol] 27 U/L Normal 14-59 [facility] Comment on above: Performed By: #### C MP, LIPA #### [facility] [address] [address] [address] Dee Humphrey Anion gap [Moles/Vol] 9.5 mmol/L Normal [facility] Comment on above: Performed By: #### C MP, LIPA #### [facility] [address] [address] [address] Dee Humphrey AST [Catalytic activity/Vol] 13 U/L Critically low 15-37 [facility] Comment on above: Performed By: #### C MP, LIPA #### [facility] [address] [address] [address] Dee Humphrey Bilirubin [Mass/Vol] 0.1 mg/dL Critically low 0.2-1.0 [facility] Comment on above: Performed By: #### C MP, LIPA #### [facility] [address] [address] [address] Dee Humphrey Calcium [Mass/Vol] 9.0 mg/dL Normal 8.5-10.1 [facility] Comment on above: Performed By: #### C MP, LIPA #### [facility] [address] [address] [address] Dee Humphrey Chloride [Moles/Vol] 103 mmol/L Normal 98-107 [facility] Comment on above: Performed By: #### C MP, LIPA #### [facility] [address] [address] [address] Dee Humphrey CO2 [Moles/Vol] 27.1 mmol/L Normal 21.0-32.0 [facility] Comment on above: Performed By: #### C MP, LIPA #### [facility] [address] [address] [address] Dee Humphrey Creatinine [Mass/Vol] 0.86 mg/dL Normal 0.55-1.02 [facility] Comment on above: Performed By: #### C MP, LIPA #### [facility] [address] [place] [address] Dr. Dee Humphrey EGFR-AF BELIZEAN >60 Normal >=60 [facility] Comment on above: Performed By: #### C MP, LIPA #### [facility] [address] [place] [address] Dr. Dee Humphrey EGFR-NON AF BELIZEAN >60 Normal >=60 [facility] Comment on above: Performed By: #### C MP, LIPA #### [facility] [address] [address] [address] Dee Humphrey Globulin (S) [Mass/Vol] 4.1 g/dL Normal [facility] Comment on above: Performed By: #### C MP, LIPA #### [facility] [address] [place] [address] Dr. Dee Humphrey Glucose [Mass/Vol] 99 mg/dL Normal 74-106 [facility] Comment on above: Performed By: #### C MP, LIPA #### [facility] [address] [place] [address] Dr. Dee Humphrey Potassium [Moles/Vol] 3.6 mmol/L Normal 3.5-5.1 [facility] Comment on above: Performed By: #### C MP, LIPA #### [facility] [address] [address] [address] Dee Humphrey Protein [Mass/Vol] 7.9 g/dL Normal 6.4-8.2 [facility] Comment on above: Performed By: #### C MP, LIPA #### [facility] [address] [address] [address] Dee Humphrey Sodium [Moles/Vol] 136 mmol/L Normal 136-145 [facility] Comment on above: Performed By: #### C MP, LIPA #### [facility] [address] [address] [address] Dee Humphrey Urea nitrogen [Mass/Vol] 12.0 mg/dL Normal 7.0-18.0 [facility] Comment on above: Performed By: #### C MP, LIPA #### [facility] [address] [address] [address] Dee Humphrey Urea nitrogen/Creatinine [Mass ratio] 14.0 mg/mg Normal [facility] Comment on above: Performed By: #### C MP, LIPA #### [facility] [address] [address] [address] Dee Humphrey Consent for COVID Vaccineon 08-09-2020 SARS-CoV-2 (COVID-19) RNA J LUIS+probe Ql (Unsp spec) [id number]:127 Normal [facility] Consent for Treatmenton 07-30 Consent for Treatment [id number]:127 Normal [facility] Coding Summary.on 08-07-2020 Coding Summary. CODING DATE: 08/07/2020 FINAL [facility] STATUS: PAYOR: Luzma APC DESCRIPTION [id number] [...] Paredes Date Saved: 08/07/2020 02:46 pm Normal [facility] Ambulatory Clinical Summaryo n 03-25-2020 Ambulatory Clinical Summary {[id number] Normal [facility] Patient Educationon 03-19-20 20 Patient Education lurasidone [...] ? an antiviral such as ritonavir; ? [place]'s wort; or ? seizure medicine such as [...] irritable, agitate (more content not included)... Normal [facility] Video Visit - Telehealtho n 02-23-2020 [...] video communications from my office using [employer] due to the restrictions of the COVID-19 pandemic. No physical exam was conducted other than those areas of the body visible to telecommunications with the patient located at [address] [place] [address], with no one else in attendance. If [...] Stopped age (more content not included)... Normal [facility] Comment on above: Result Comment: Elec tronically Signed By: Deepa [facility], Maia Ashley\.br\Date and Time Signed: 02/22/20 23:17 [...] interactive video communications from my office using [employer] due to the restrictions of the COVID-19 pandemic. No physical exam was conducted other than those areas of the body visible to telecommunications with the patient located at [address] [place] [address], with no one else in attendance. If [...] Sister. Depres (more content not included)... Normal [facility] Comment on above: Result Comment: Elec tronically Signed By: [facility]\.mati\Date and Time Signed: 02/11/20 14:46 EDT Video [...] interactive video communications from my office using [employer] due to the restrictions of the COVID-19 pandemic. No physical exam was conducted other than those areas of the body visible to telecommunications with the patient located at [address] [place] [phone], with no one else in attendance. If [...] - Denies (more content not included)... Normal [facility] Comment on above: Result Comment: Elec tronically Signed By: Deepa [facility], Maia Montero.mati\Date and Time Signed: 02/11/20 14:37 [...] interactive video communications from my office using [employer] due to the restrictions of the COVID-19 pandemic. No physical exam was conducted other than those areas of the body visible to telecommunications with the patient located at [address] [place] [phone], with no one else in attendance. If [...] Tobacco F (more content not included)... Normal [facility] Comment on above: Result Comment: Elec tronically Signed By: [facility]a [facility]\Date and Time Signed: 01/29/20 21:44 EDT Video [...] interactive video communications from my office using [employer] due to the restrictions of the COVID-19 pandemic. No physical exam was conducted other than those areas of the body visible to telecommunications with the patient located at [address] [place], [place] [phone], with no one else in attendance. If [...] Yes, 09 (more content not included)... Normal [facility] Comment on above: Result Comment: Elec tronically Signed By: Deepa [facility], Maia Montero.mati\Date and Time Signed: 01/29/20 21:38 [...] drow (more content not included)... Normal [facility] Video Visit - Telehealtho n 01-13-2020 [...] interactive video communications from my office using [employer] due to the restrictions of the COVID-19 pandemic. No physical exam was conducted other than those areas of the body visible to telecommunications with the patient located at [address] [place] [phone], with no one else in attendance. If [...] Tobacco For (more content not included)... Normal [facility] Comment on above: Result Comment: Judith watts Signed By: Deepa [facility], Maia Montero.mati\Date and Time Signed: 01/13/20 09:40 [...] include drow (more content not included)... Normal [facility] Video Visit - Telehealtho n 01-07-2020 [...] interactive video communications from my office using [employer] due to the restrictions of the COVID-19 pandemic. No physical exam was conducted other than those areas of the body visible to telecommunications with the patient located at [address] [place] [address], with no one else in attendance. If [...] Use:. N (more content not included)... Normal [facility] Comment on above: Result Comment: Elec tronically Signed By: Deepa [facility], Maia Montero.br\Date and Time Signed: 01/07/20 12:38 [...] interactive video communications from my office using [employer] due to the restrictions of the COVID-19 pandemic. No physical exam was conducted other than those areas of the body visible to telecommunications with the patient located at [address] [place] [address], with no one else in attendance. If [...] Father and (more content not included)... Normal [facility] Comment on above: Result Comment: Elec tronically Signed By: Deepa [facility], Maia Montero.mati\Date and Time Signed: 12/30/19 13:50 [...] interactive video communications from my office using [employer] due to the restrictions of the COVID-19 pandemic. No physical exam was conducted other than those areas of the body visible to telecommunications with the patient located at [address] [place] [phone], with no one else in attendance. If [...] Alcohol U (more content not included)... Normal [facility] Comment on above: Result Comment: Elec tronically Signed By: Deepa [facility], Maia Ashley\.mati\Date and Time Signed: 12/23/19 16:54 EDT Patient Educationon 12-23-19 20 Patient Education aripiprazole (AR i PIP ra welsh) Sya Deal What is the most important information [...] include drow (more content not included)... Normal [facility] Video Visit - Telehealtho n 12-04-2019 [...] interactive video communications from my office using [employer] due to the restrictions of the COVID-19 pandemic. No physical exam was conducted other than those areas of the body visible to telecommunications with the patient located at [address] [place], [place] [phone], with no one else in attendance. If [...] Daily, 5 (more content not included)... Normal [facility] Comment on above: Result Comment: Elec tronically Signed By: Deepa [facility], Maia Montero.mati\Date and Time Signed: 12/04/19 09:42 [...] rate, h (more content not included)... Normal [facility] Vital Signs Date Time Vital Sign Value Performing Clinician Facility 08-18-2023 14:24-0400 Body height 160.02 cm [facility] 08-18-2023 14:24-0400 Body mass index (BMI) [Ratio] 40.2 kg/m2 [facility] 08-18-2023 14:24-0400 Body temperature 98.4 [degF] [facility] 08-18-2023 14:24-0400 Body weight 103.02 kg [facility] 08-18-2023 14:24-0400 Diastolic blood pressure 81 mm[Hg] [facility] 08-18-2023 14:24-0400 Heart rate 101 /min [facility] 08-18-2023 14:24-0400 Respiratory rate 16 /min [facility] 08-18-2023 14:24-0400 SaO2% (BldA) [Mass fraction] 98 % [facility] 08-18-2023 14:24-0400 Systolic blood pressure 133 mm[Hg] [facility] 04-27-2023 16:30-0500 Body height 160.02 cm Sanaz Lockwood Other [facility] [employer] Other 04-27-2023 16:30-0500 Body mass index (BMI) [Ratio] 40.92 kg/m2 Sanaz Lockwood Other [facility] [employer] Other 04-27-2023 16:30-0500 Body temperature 98.2 [degF] Sanaz Lockwood Other [facility] [employer] Other 04-27-2023 16:30-0500 Body weight 104.78 kg Sanaz Lockwood Other [employer] Other 04-27-2023 16:30-0500 Respiratory rate 18 /min Sanaz Lockwood Other [employer] Other 04-27-2023 16:30-0500 SaO2% (BldA) [Mass fraction] 99 % Sanaz Lockwood Other [employer] Other 05-10-2022 14:45-0500 Body height 160.02 cm Kaylah Han Other [employer] Other 05-10-2022 14:45-0500 Body mass index (BMI) [Ratio] 38.97 kg/m2 Kaylah Guille Other [employer] Other 05-10-2022 14:45-0500 Body temperature 99.3 [degF] Kaylah Han Other [employer] Other 05-10-2022 14:45-0500 Body weight 99.79 kg Kaylah Han Other [employer] Other 06-29-2019 22:40-0500 Pulse (Heart Rate) 84 /min [facility] 06-29-2019 22:40-0500 Pulse Oximetry 97 % [facility] 06-29-2019 22:35-0500 BP Diastolic 56 mm[Hg] [facility] 06-29-2019 22:35-0500 BP Systolic 100 mm[Hg] [facility] 06-29-2019 21:11-0500 BMI (Body Mass Index) 33.1 kg/m2 [facility] 06-29-2019 21:11-0500 Body Temperature 97.8 [degF] Kimberlyn Xie [facility] 06-29-2019 21:11-0500 Body weight 84.8 kg Kimberlyn [facility] 06-29-2019 21:11-0500 Height 160.02 cm [facility] 06-29-2019 21:110500 Respiratory Rate 20 /min Kimberlyn [facility] Encounters Encounter Date Encounter Type Care Provider Facility Start: 01-03-2024 End: 01-03-2024 ambulatory GUERRERO DUQUE Not Available Start: 12-25-2023 End: 12-25-2023 ambulatory MAKENZIE SARAY Not Available Start: 11-24-2023 End: 11-24-2023 ambulatory MAKENZIE SARAY Not Available Start: 08-18-2023 End: 08-18-2023 ambulatory [facility] Work Phone: Start: 08-18-2023 End: 08-18-2023 Patient encounter procedure [facility] Work Phone: Start: 04-27-2023 End: 04-27-2023 ambulatory Sanaz Lockwood Other [employer] Other Start: 04-27-2023 Office outpatient visit 25 minutes Sanaz Lockwood [facility] Start: 05-10-2022 End: 05-10-2022 ambulatory Kaylahpedrito Han Other [employer] Other Start: 05-10-2022 Office outpatient ne w 20 minutes Kaylahpedrito Han [facility] Start: 04-27-2022 End: 04-27-2022 ambulatory KIMBERLYN XIE Facility:[facility] Start: 03-07-2022 End: 03-07-2022 ambulatory KIMBERLYN XIE Facility:[facility] Start: 09-23-[address] JAZIEL HILL Facility :[facility] Start: 06-29-2019 End: 06-29-2019 Emergency department patient visit [facility] Procedures Date Procedure Procedure Detail Performing Clinician Start: 08-18-2023 Quick Strep (POC) Plan of Treatment Date Care Activity Detail Author Patient Education Epinephrine (B y injection) Anaphylaxis (ED) General Allergic Reaction (ED) [facility] Patient referral [facility] Payers Date Payer Category Payer Unknown [id number] [id number] [id number] 1987 Unknown [id number] 2.16.84 [id number] 1987 Unknown [id number] 2.16.84 [id number] 1987 Unknown [id number] 2.16.84 [id number] 1987 Unknown [id number] 2.16.84 [id number] 1987 Unknown [id number] 2.16.84 [id number] 1959 Self-pay [id number] 1959 Unknown [id number] Private Health Insurance [id number] Self-pay Self Pay [id number] Social History Date Type Detail Facility Start: 06-29-2019 End: 08-18-2023 Tobacco smoking status NHIS Smoker (finding) [facility] Start: 1985 Sex Assigned At Female F [facility] Sex Assigned At Sex Assigned At Bir th [employer] Other Goals Date Patient Goal Desired Activity [...] condition. Mar, Sore throat (ICD-10 - J02.9) [employer] Other 01-10-2023 Evaluation note* Encounter Date Diagnosis [...] weeks for the cough to go away [employer] Other 11-07-2022 NoteIndication: Abdominal pain. Comparison: None [...] Electronically authenticated by: SURJIT FREITAS Date: 2022-03-07 20:49[facility]11-19-2020 NoteHPI Staff This visit was conducted via phone communications from my office due to the restrictions of the COVID-19 pandemic. No physical exam was conducted due to audio only communication with the patient located at [address] [place] [phone], with no one else. If it is determined that the patientshould be evaluated in person, the patient will be directed to the appropriate clinic or venue. Thepatient or their guardian verbally consented to this visit. Phone time was 15 minutes discussing health issues with counseling and coordination of care. Subjective Interval History/HPI Patient presents today for follow up via telehealth phone from [facility]. Patient started Latuda 20mg last evening with [...] anxiety, # 30 tab(s), Refills(s) 2, Pharmacy: [facility]/pharmacy #[id number], 161, cm, 12/23/19 10:18:00 EDT, Height/Length Dosing, 82, kg, 12/23/19 10:18:00 EDT, Weight Dosing Orders: lurasidone, 20 mg = 1 tab(s), Oral, Daily, with 350 calories; begin this dose first then progress to next dose of 40mg, X 1 week(s), # 7 tab(s), Refills(s) 0, Pharmacy: [facility]/pharmacy #[id number], 161, cm, 12/23/19 10:18:00 EDT, Height/Length Dosing, 82, kg, 12/23/19 10:... lurasidone, 40 mg = 1 tab(s), Oral, Daily, with 350 calories, # 30 tab(s), Refills(s) 1, Pharmacy: [facility]/pharmacy #[id number], 161, cm, 12/23/19 10:18:00 EDT, [...] (generalized anxiety disorder) Hidr (more content not included)...[facility] Result Comment: Electronically Signed By: Carlota RODRIGUEZ CNP\.br\Date and Time Signed: 03/19/20 14:27 [id number] NoteI Staff This visit was conducted via two-way, real-time interactive video communications from my office using [employer] due to the restrictions of the COVID-19 pandemic. No physical exam was conducted other than those areas of the body visible to telecommunications with the patient located at [address] [place] [address], with no one else in attendance. If [...] Ordered: TELEHEALTH Office Visit Level 3 Est 87640 General Treatment Plan Maintain medication regimen _Improve [...] Employed, 03/18/2019 Home/Environment Lani (more content not included)...[facility] Result Comment: Electronically Signed By: Carlota RODRIGUEZ CNP\Date and Time Signed: 03/05/20 13:32 [id number] NoteI Staff This visit was conducted via two-way, real-time interactive video communications from my office using [employer] due to the restrictions of the COVID-19 pandemic. No physical exam was conducted other than those areas of the body visible to telecommunications with the patient located at [address] [place] [phone], with no one else in attendance. If [...] anxiety, # 30 tab(s), Refills(s) 1, [id number] 161, cm, 12/23/19 10:18:00 EDT, Height/Length Dosing, 82, kg, 12/23/19 10:18:00 EDT, Weight Dosing alprazolam, 0.5 mg = 1 tab(s), Oral, TID, PRN for anxiety, # 30 tab(s), Refills(s) 1, [id number], 161, cm, 12/23/19 10:18:00 EDT, Height/Length Dosing, 82, kg, 12/23/19 10:18:00 EDT, Weight Dosing aripiprazole, See Instructions, 1.5 tab po qAM, # 30 tab(s), Refills(s) 2, Pharmacy: [facility]/pharmacy #[id number], 161, cm, 12/23/19 10:18:00 EDT, Height/Length Dosing, 82, kg, 12/23/19 10:18:00 EDT, Weight Dosing aripiprazole, See Instructions, 1 tab po qAM, # 30 tab(s), Refills(s) 5, Pharmacy: [facility]/pharmacy #[id number], 161, cm, 12/23/19 10:18:00 EDT, Height/Length Dosing, 82, kg, 12/23/19 10:18:00 EDT, Weight Dosing cyclobenzaprine, 10 mg = 1 tab(s), Oral, TID, PRN for spasm, # 30 tab(s), Refills(s) 1, Pharmacy: [facility]/pharmacy #[id number], 161, cm, 06/13/19 14:39:00 EST, Height/Length Measured, 82, kg, 06/13/19 14:39:00EST, Weight Measured cyclobenzaprine, 10 mg = 1 tab(s), Oral, TID, PRN for spasm, # 30 tab(s), Refills(s) 1, Pharmacy: [facility]/pharmacy #[id number], 161, cm, 12/23/19 10:18:00 EDT, Height/Length Dosing, 82, kg, 12/23/19 10:18:00 EDT, Weight Dosing General Treatment Plan Maintain medication regimen _Improve mood stability _Improve anxiety control _Improve social and interpersonal functioning Clinical Global Impression 62 Prognosis progressing Follow-up With When Contact Information Carlota RODRIGUEZ CNP In 4 weeks Additional Instructions: (more content not included)...[facility]Result Comment: Electronically Signed By: Carlota RODRIGUEZ CNP\.br\Date and Time Signed: 01/27/20 22:35 [id number] NoteI Staff This visit was conducted via two-way, real-time interactive video communications from my office using [employer] due to the restrictions of the COVID-19 pandemic. No physical exam was conducted other than those areas of the body visible to telecommunications with the patient located at [address] [place], [place] [phone], with no one else in attendance. If [...] Ordered: TELEHEALTH Office Visit Level 3 Est 77896 General Treatment Plan Maintain medication regimen _Improve [...] Use:. Never Smokeless Tob (more content not included)...[facility]:Result Comment: Electronically Signed By: Carlota RODRIGUEZ CNP\.br\Date and Time Signed: 01/13/20 09:11 [id number] NoteI Staff This visit was conducted via two-way, real-time interactive video communications from my office using [employer] due to the restrictions of the COVID-19 pandemic. No physical exam was conducted other than those areas of the body visible to telecommunications with the patient located at [address] [place] [address], with no one else in attendance. If [...] anxiety, # 30 tab(s), Refills(s) 1, [id number] 161, cm, 12/23/19 10:18:00 EDT, Height/Length Dosing, 82, kg, 12/23/19 10:18:00 EDT, Weight Dosing alprazolam, 0.5 mg = 1 tab(s), Oral, TID, PRN for anxiety, # 30 tab(s), Refills(s) 1, Pharmacy: [facility]/pharmacy #[id number], 161, cm, 06/13/19 14:39:00 EST, Height/Length Measured, 82, kg, 06/13/19 14:39:00 EST, Weight Measured aripiprazole, See Instructions, 1 tab po qAM, # 30 tab(s), Refills(s) 0, [id number] 161, cm, 12/23/19 10:18:00 EDT, Height/Length [...] Allergies Bactrim Social History (more content not included)...[facility]:Result Comment: Electronically Signed By: Carlota RODRIGUEZ CNP\Date and Time Signed: 12/23/19 16:37 [id number] NoteHPI Staff This visit was conducted via two-way, real-time interactive video communications from my office using [employer] due to the restrictions of the COVID-19 pandemic. No physical exam was conducted other than those areas of the body visible to telecommunications with the patient located at [address] [place] [address], with no one else in attendance. If [...] q24hr, # 30 tab(s), Refills(s) 2, Pharmacy: [facility]/pharmacy #[id number],161, cm, 06/13/19 14:39:00 EST, Height/Length Measured, 82, kg, 06/13/19 14:39:00 EST, Weight Measured cyclobenzaprine, 10 mg = 1 tab(s), Oral, TID, PRN for spasm, # 30 tab(s), Refills(s) 1, Pharmacy: [facility]/pharmacy #[id number], 161, cm, 06/13/19 14:39:00 EST, [...] Employment/School Employed, 03/18/2019 Home/Environment (more content not included)...[facility] on [facility]:Result Comment: Electronically Signed By: Carlota RODRIGUEZ CNP\.br\Date and Time Signed: 12/02/19 16:38 EDTChief complaint+Reason for visit Narrative* Chief Complaint Nausea, diarrhea, fe zhou Reason for Visit Contact with and (louis spected) exposure to covid-19 Sore throat [facility] Work Phone: Evaluation note* Diagnosis Onset Date Resolution Status Contact with and (suspected) exposure to covid-19 noneactive Sore throat noneactive [facility] Work Phone: History general Narrative - Reported* Type Description Date Medical History Bipolar Surgical History appendectomy Surgical History x 3 Hospitalization History see above surgical histo ry [facility] [employer] Other Advance Directives No Advanced Directives Records [...] may need to be seen by an chart computer if you have other events like this without definite egg exposure. Summary Purpose Family History No Family History Records Found Relationship Condition Age at Onset Recorded Date/T alo father Diabetes mellitus Unknown Hypertension Unknown Additional Source Comments INFORMATION SOURCE (unrecogn ized section and content) DATE CREATED AUTHOR 10/30/[address] [facility] DATE CREATED AUTHOR AUTHOR'S ORGANIZ ATION 04/29/2022 [facility] DATE CREATED AUTHOR AUTHOR'S ORGANIZ ATION 01/05/2024 [facility] EPIC REASON FOR VISIT (unrecogniz ed [...] BE BASED ON THE PRIMARY CLINICAL RECORDS. [facility] [employer] [facility]. provides no warranty or guarantee of the accuracy or completeness of information in this document.
== END 2024-01-24 21:28 | disposition home or self-care (01) ==
LOC: LAB 21:27
PROVIDERS: PCP Nurse Practitioner Family; Visit Provider Obstetrics & Gynecology
DX: Z34.92 Encounter for supervision of normal pregnancy, unspecified, second trimester (principal); Z3A.18 18 weeks gestation of pregnancy
CPT/HCPCS: 88175

== ENCOUNTER 2024-02-06 15:52 | Emergency (ER) | payer BC, SELFPAY ==
[2024-02-06 15:58] VITALS: BP 148/85; PULSE 120; TEMP 36.6; O2SAT 100; BMI 40.7
--- OUTSIDE RECORDS SUMMARY | 2024-02-06 16:02 | XMS_ITS | CCD ---
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 (2 sources) Trimethoprim Drug Allergy 08-18-19 24 Unknown Reaction, Unknown Reaction, [facility] (2 sources) Fish Containing Products Propensity to adverse reactions 08-18-19 24 Difficulty Breathing [facility] (1 source) Sulfamethoxazole / Trimethoprim Drug Allergy 02-04-20 13 [facility] (2 sources) Sulfamethoxazole / Trimethoprim Drug Allergy [email or web address] Other Medications Current Medications Medication Drug Class(es) Dates Sig (Normalized) Sig (Original) [id number] 200 actuat albuterol 0.09 mg/actuat metered dose [...] oral tablet (1 source) alpha-Adrenergic Agonist, Uncompetitive V-wsersg-P-asparta te Receptor Antagonist, Sigma-1 Agonist Start: 04-27-2023 take 4 tablets by mouth every twenty-four hours as needed Capmist DM 60-15-400 MG as needed Orally every 4-6 hours as needed, max 4 tablets in 24 hours for 5 days Mar, Active [id number] 0.3 ml EPINEPHrine 1 mg/ml auto-injector (2 [...] Episodic Other aftercare (1 source) 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 COVID + FLU Quick Testingon 04-27-2023 SARS-CoV-2 (COVID-19) RNA J LUIS+probe Ql (Unsp spec) Negative [facility] Other COVID + FLU Quick Testing Negative [facility] Other Quick Strepon 04-27-2023 S. pyogenes Org specific cx Ql (Throat) Negative [facility] Other Quick Strep [facility] Other COVID/FLU/RSV RT-PCRon 05-10 SARS-CoV-2 (COVID-19) RNA J LUIS+probe Ql (Unsp spec) Negative [facility] Other COVID/FLU/RSV RT-PCR Positive [facility] Other COVID/FLU/RSV RT-PCR Negative [facility] Other CBC AUTO DIFFon 04-27-2022 BASO # 0.0 103/ul Normal 0.0-0.1 [facility] Comment on above: Performed By: #### C BC #### [facility] [address] [address] [address] Dee Humphrey Basophils/100 WBC (Bld) 0.2 % Normal 0.2-2.0 [facility] Comment on above: Performed By: #### C BC #### [facility] [address] [address] [address] Dee Humphrey EO # 0.1 103/ul Normal 0.0-0.7 [facility] Comment on above: Performed By: #### C BC #### [facility] [address] [place] [address] Dr. Dee Humphrey Eosinophils/100 WBC (Bld) 0.6 % Critically low 0.9-7.0 [facility] Comment on above: Performed By: #### C BC #### [facility] [address] [place] [address] Dr. Dee Humphrey Erythrocyte distribution width (RBC) [Ratio] 14.1 % Normal 11.0-15.0 [facility] Comment on above: Performed By: #### C BC #### [facility] [address] [place] [address] Dr. Dee Humphrey Hematocrit (Bld) [Volume fraction] 37.1 % Normal 36.0-48.0 [facility] Comment on above: Performed By: #### C BC #### [facility] [address] [place] [address] Dr. Dee Humphrey Hemoglobin (Bld) [Mass/Vol] 12.4 g/dL Normal 12.0-16.0 [facility] Comment on above: Performed By: #### C BC #### [facility] [address] [place] [address] Dr. Dee Humphrey IG # 0.06 10e3/ul Critically high 0.00-0.03 [facility] Comment on above: Performed By: #### C BC #### [facility] [address] [place] [address] Dr. Dee Humphrey IG % 0.5 % Normal 0.0-0.5 [facility] Comment on above: Performed By: #### C BC #### [facility] [address] [place] [address] Dr. Dee Humphrey LYMPH # 3.7 103/ul Normal 1.2-3.8 [facility] Comment on above: Performed By: #### C BC #### [facility] [address] [place] [address] Dr. Dee Humphrey Lymphocytes/100 WBC (Bld) 28.7 % Normal 20.5-60.0 [facility] Comment on above: Performed By: #### C BC #### [facility] [address] [place] [address] Dr. Dee Humphrey MANUAL DIFF REQ NO Normal [facility] Comment on above: Performed By: #### C BC #### [facility] [address] [place] [address] Dr. Dee Humphrey MCH (RBC) [Entitic mass] 30.2 pg Normal 26.7-34.0 [facility] Comment on above: Performed By: #### C BC #### [facility] [address] [place] [address] Dr. Dee Humphrey MCHC (RBC) [Mass/Vol] 33.4 g/dL Normal 29.9-35.2 [facility] Comment on above: Performed By: #### C BC #### [facility] [address] [place] [address] Dr. Dee Humphrey MCV (RBC) [Entitic vol] 90.5 fL Normal 81.0-99.0 [facility] Comment on above: Performed By: #### C BC #### [facility] [address] [place] [address] Dr. Dee Humphrey MONO # 0.7 103/ul Normal 0.3-0.8 [facility] Comment on above: Performed By: #### C BC #### [facility] [address] [place] [address] Dr. Dee Humphrey Monocytes/100 WBC (Bld) 5.0 % Normal 1.7-12.0 [facility] Comment on above: Performed By: #### C BC #### [facility] [address] [place] [address] Dr. Dee Humphrey NEUT # 8.5 103/ul Critically high 1.4-6.[address] [facility] Comment on above: Performed By: #### C BC #### [facility] [address] [address] [address] Dee Humphrey Neutrophils/100 WBC (Bld) 65.0 % Normal 43.0-75.0 [facility] Comment on above: Performed By: #### C BC #### [facility] [address] [place] [address] Dr. Dee Humphrey Platelet mean volume (Bld) [Entitic vol] 9.6 fL Normal 9.5-13.5 [facility] Comment on above: Performed By: #### C BC #### [facility] [address] [place] [address] Dr. Dee Humphrey PLT 317 103/ul Normal 150-450 [facility] Comment on above: Performed By: #### C BC #### [facility] [address] [place] [address] Dr. Dee Humphrey RBC 4.10 106/ul Critically low 4.20-5.[address] [facility] Comment on above: Performed By: #### C BC #### [facility] [address] [place], [place] [id number] Dr. Dee Humphrey WBC 13.1 103/ul Critically high 4.0-11.0 [facility] Comment on above: Performed By: #### C BC #### [facility] [address] [place] [address] ABD/PELVIS WO CONon [...] by: ROCIO CHAU Date: 2022-04-27 20:24 Normal [facility] ER URINE PROFILEon 2 Bilirubin Ql (U) Negative Normal NEGATIVE [facility] Comment on above: Performed By: #### P REGU, ERUR #### [facility] [address] [place] [address] Dr. Dee Humphrey Clarity (U) CLEAR Normal CLEAR [facility] Comment on above: Performed By: #### P REGU, ERUR #### [facility] [address] [address] [address] Dee Humphrey Color (U) YELLOW Normal YELLOW [facility] Comment on above: Performed By: #### P REGU, ERUR #### [facility] [address] [address] [address] Dee Humphrey ERUAHD A micrscopic examination will be performed if indicated. Normal [facility] Comment on above: Performed By: #### P REGU, ERUR #### [facility] [address] [address] [address] Dee Humphrey Glucose Ql (U) Negative Normal NEGATIVE [facility] Comment on above: Performed By: #### P REGU, ERUR #### [facility] [address] [address] [address] Dee Humphrey Hemoglobin Ql (U) Negative Normal NEGATIVE [facility] Comment on above: Performed By: #### P REGU, ERUR #### [facility] [address] [place] [address] Dr. Dee Humphrey Ketones Ql (U) Negative Normal NEGATIVE [facility] Comment on above: Performed By: #### P REGU, ERUR #### [facility] [address] [place] [address] Dr. Dee Humphrey LEUKOCYTES Negative Normal NEGATIVE [facility] Comment on above: Performed By: #### P REGU, ERUR #### [facility] [address] [place] [address] Dr. Dee Humphrey Nitrite Ql (U) Negative Normal NEGATIVE [facility] Comment on above: Performed By: #### P REGU, ERUR #### [facility] [address] [place] [address] Dr. Dee Humphrey pH (U) 5.5 [pH] Normal 5-9 [facility] Comment on above: Performed By: #### P REGU, ERUR #### [facility] [address] [place] [address] Dr. Dee Humphrey SPEC GRAVITY >=1.030 Abnormal 1.005-<=1.02 5 [facility] Comment on above: Performed By: #### P REGU, ERUR #### [facility] [address] [place] [address] Dr. Dee Humphrey UA PROTEIN Negative Normal NEGATIVE/ TRACE [facility] Comment on above: Performed By: #### P REGU, ERUR #### [facility] [address] [place] [address] Dr. Dee Humphrey UR MICRO IND NOT INDICATED Normal [facility] Comment on above: Performed By: #### P REGU, ERUR #### [facility] [address] [place] [address] Dr. Dee Humphrey Urobilinogen Qn (U) 0.2 {Blanca'U}/dL Normal 0.2 - 1. 0 [facility] Comment on above: Performed By: #### P REGU, ERUR #### [facility] [address] [place] [address] Dr. Dee Humphrey LIPASEon 04-27-2022 Lipase [Catalytic activity/Vol] 94.0 U/L Normal 73.0-393.0 [facility] Comment on above: Performed By: #### L IPA, CMP #### [facility] [address] [place] [address] Dr. Dee Humphrey URon 04-27-2022 , QUAL Negative Normal NEGATIVE [facility] Comment on above: Performed By: #### P REGU, ERUR #### [facility] [address] [place] [address] Dr. Dee Humphrey PROF 14(COMP METB)on 022 Albumin [Mass/Vol] 3.9 g/dL Normal 3.4-5.0 [facility] Comment on above: Performed By: #### L IPA, CMP #### [facility] [address] [place] [address] Dr. Dee Humphrey Albumin/Globulin [Mass ratio] 1.0 {ratio} Normal [facility] Comment on above: Performed By: #### L IPA, CMP #### [facility] [address] [place] [address] Dr. Dee Humphrey ALP [Catalytic activity/Vol] 87 U/L Normal 46-116 [facility] Comment on above: Performed By: #### L IPA, CMP #### [facility] [address] [place] [address] Dr. Dee Humphrey ALT [Catalytic activity/Vol] 31 U/L Normal 14-59 [facility] Comment on above: Performed By: #### L IPA, CMP #### [facility] [address] [place] [address] Dr. Dee Humphrey Anion gap [Moles/Vol] 10.8 mmol/L Normal [facility] Comment on above: Performed By: #### L IPA, CMP #### [facility] [address] [place] [address] Dr. Dee Humphrey AST [Catalytic activity/Vol] 17 U/L Normal 15-37 [facility] Comment on above: Performed By: #### L IPA, CMP #### [facility] [address] [place] [address] Dr. Dee Humphrey Bilirubin [Mass/Vol] 0.1 mg/dL Critically low 0.2-1.0 [facility] Comment on above: Performed By: #### L IPA, CMP #### [facility] [address] [place] [address] Dr. Dee Humphrey Calcium [Mass/Vol] 8.9 mg/dL Normal 8.5-10.1 [facility] Comment on above: Performed By: #### L IPA, CMP #### [facility] [address] [place] [address] Dr. Dee Humphrey Chloride [Moles/Vol] 103 mmol/L Normal 98-107 [facility] Comment on above: Performed By: #### L IPA, CMP #### [facility] [address] [place] [address] Dr. Dee Humphrey CO2 [Moles/Vol] 26.9 mmol/L Normal 21.0-32.0 [facility] Comment on above: Performed By: #### L IPA, CMP #### [facility] [address] [place] [address] Dr. Dee Humphrey Creatinine [Mass/Vol] 0.80 mg/dL Normal 0.55-1.02 [facility] Comment on above: Performed By: #### L IPA, CMP #### [facility] [address] [place] [address] Dr. Dee Humphrey EGFR-AF BURKINAN >60 Normal >=60 [facility] Comment on above: Performed By: #### L IPA, CMP #### [facility] [address] [place] [address] Dr. Dee Humphrey EGFR-NON AF BURKINAN >60 Normal >=60 [facility] Comment on above: Performed By: #### L IPA, CMP #### [facility] [address] [place] [address] Dr. Dee Humphrey Globulin (S) [Mass/Vol] 3.9 g/dL Normal [facility] Comment on above: Performed By: #### L IPA, CMP #### [facility] [address] [place] [address] Dr. Dee Humphrey Glucose [Mass/Vol] 96 mg/dL Normal 74-106 [facility] Comment on above: Performed By: #### L IPA, CMP #### [facility] [address] [place] [address] Dr. Dee Humphrey Potassium [Moles/Vol] 3.7 mmol/L Normal 3.5-5.1 [facility] Comment on above: Performed By: #### L IPA, CMP #### [facility] [address] [place] [address] Dr. Dee Humphrey Protein [Mass/Vol] 7.8 g/dL Normal 6.4-8.2 [facility] Comment on above: Performed By: #### L IPA, CMP #### [facility] [address] [place] [address] Dr. Dee Humphrey Sodium [Moles/Vol] 137 mmol/L Normal 136-145 [facility] Comment on above: Performed By: #### L IPA, CMP #### [facility] [address] [place] [address] Dr. Dee Humphrey Urea nitrogen [Mass/Vol] 13.0 mg/dL Normal 7.0-18.0 [facility] Comment on above: Performed By: #### L IPA, CMP #### [facility] [address] [place] [address] Dr. Dee Humphrey Urea nitrogen/Creatinine [Mass ratio] 16.2 mg/mg Normal [facility] Comment on above: Performed By: #### L IPA, CMP #### [facility] [address] [place] [address] Dr. Dee Humphrey CBC AUTO DIFFon 03-07-2022 BASO # 0.0 103/ul Normal 0.0-0.1 [facility] Comment on above: Performed By: #### C BC #### [facility] [address] [place] [address] Dr. Dee Humphrey Basophils/100 WBC (Bld) 0.3 % Normal 0.2-2.0 [facility] Comment on above: Performed By: #### C BC #### [facility] [address] [place] [address] Dr. Dee Humphrey EO # 0.1 103/ul Normal 0.0-0.7 [facility] Comment on above: Performed By: #### C BC #### [facility] [address] [address] [address] Dee Humphrey Eosinophils/100 WBC (Bld) 0.7 % Critically low 0.9-7.0 [facility] Comment on above: Performed By: #### C BC #### [facility] [address] [place] [address] Dr. Dee Humphrey Erythrocyte distribution width (RBC) [Ratio] 13.0 % Normal 11.0-15.0 [facility] Comment on above: Performed By: #### C BC #### [facility] [address] [place] [address] Dr. Dee Humphrey Hematocrit (Bld) [Volume fraction] 39.2 % Normal 36.0-48.0 [facility] Comment on above: Performed By: #### C BC #### [facility] [address] [place] [address] Dr. Dee Humphrey Hemoglobin (Bld) [Mass/Vol] 13.2 g/dL Normal 12.0-16.0 [facility] Comment on above: Performed By: #### C BC #### [facility] [address] [place] [address] Dr. Dee Humphrey IG # 0.05 10e3/ul Critically high 0.00-0.03 [facility] Comment on above: Performed By: #### C BC #### [facility] [address] [place] [address] Dr. Dee Humphrey IG % 0.5 % Normal 0.0-0.5 [facility] Comment on above: Performed By: #### C BC #### [facility] [address] [place] [address] Dr. Dee Humphrey LYMPH # 4.2 103/ul Critically high 1.2-3.[address] [facility] Comment on above: Performed By: #### C BC #### [facility] [address] [place] [address] Dr. Dee Humphrey Lymphocytes/100 WBC (Bld) 43.1 % Normal 20.5-60.0 [facility] Comment on above: Performed By: #### C BC #### [facility] [address] [place] [address] Dr. Dee Humphrey MANUAL DIFF REQ NO Normal [facility] Comment on above: Performed By: #### C BC #### [facility] [address] [place] [address] Dr. Dee Humphrey MCH (RBC) [Entitic mass] 30.5 pg Normal 26.7-34.0 [facility] Comment on above: Performed By: #### C BC #### [facility] [address] [place] [address] Dr. Dee Humphrey MCHC (RBC) [Mass/Vol] 33.7 g/dL Normal 29.9-35.2 [facility] Comment on above: Performed By: #### C BC #### [facility] [address] [place] [address] Dr. Dee Humphrey MCV (RBC) [Entitic vol] 90.5 fL Normal 81.0-99.0 [facility] Comment on above: Performed By: #### C BC #### [facility] [address] [place] [address] Dr. Dee Humphrey MONO # 0.4 103/ul Normal 0.3-0.8 [facility] Comment on above: Performed By: #### C BC #### [facility] [address] [place] [address] Dr. Dee Humphrey Monocytes/100 WBC (Bld) 4.4 % Normal 1.7-12.0 [facility] Comment on above: Performed By: #### C BC #### [facility] [address] [place] [address] Dr. Dee Humphrey NEUT # 4.9 103/ul Normal 1.4-6.5 [facility] Comment on above: Performed By: #### C BC #### [facility] [address] [place] [address] Dr. Dee Humphrey Neutrophils/100 WBC (Bld) 51.0 % Normal 43.0-75.0 [facility] Comment on above: Performed By: #### C BC #### [facility] [address] [place] [address] Dr. Dee Humphrey Platelet mean volume (Bld) [Entitic vol] 9.6 fL Normal 9.5-13.5 [facility] Comment on above: Performed By: #### C BC #### [facility] [address] [place] [address] Dr. Dee Humphrey PLT 364 103/ul Normal 150-450 [facility] Comment on above: Performed By: #### C BC #### [facility] [address] [place] [address] Dr. Dee Humphrey RBC 4.33 106/ul Normal 4.20-5.40 [facility] Comment on above: Performed By: #### C BC #### [facility] [address] [place] [address] Dr. Dee Humphrey WBC 9.7 103/ul Normal 4.0-11.0 [facility] Comment on above: Performed By: #### C BC #### [facility] [address] [place] [address] Dr. Dee Humphrey LACTATE/LACTIC ACIDon 2021 Lactate [Moles/Vol] 1.1 mmol/L Normal 0.4-1.9 [facility] Comment on above: Performed By: #### P REGU, ERUR #### [facility] [address] [place] [address] Dr. Dee Humphrey LIPASEon 03-07-2022 Lipase [Catalytic activity/Vol] 79.0 U/L Normal 73.0-393.0 [facility] Comment on above: Performed By: #### C MP, LIPA #### [facility] [address] [address] [address] Dee Humphrey PROF 14(COMP METB)on 022 Albumin [Mass/Vol] 3.8 g/dL Normal 3.4-5.0 [facility] Comment on above: Performed By: #### C MP, LIPA #### [facility] [address] [address] [address] Dee Humphrey Albumin/Globulin [Mass ratio] 0.9 {ratio} Normal [facility] Comment on above: Performed By: #### C MP, LIPA #### [facility] [address] [address] [address] Dee Humphrey ALP [Catalytic activity/Vol] 80 U/L Normal 46-116 [facility] Comment on above: Performed By: #### C MP, LIPA #### [facility] [address] [place] [address] Dr. Dee Humphrey ALT [Catalytic activity/Vol] 27 U/L Normal 14-59 [facility] Comment on above: Performed By: #### C MP, LIPA #### [facility] [address] [address] [address] Dee Humphrey Anion gap [Moles/Vol] 9.5 mmol/L Normal [facility] Comment on above: Performed By: #### C MP, LIPA #### [facility] [address] [address] [address] Dee Humphrey AST [Catalytic activity/Vol] 13 U/L Critically low 15-37 [facility] Comment on above: Performed By: #### C MP, LIPA #### [facility] [address] [address] [address] Dee Humphrey Bilirubin [Mass/Vol] 0.1 mg/dL Critically low 0.2-1.0 [facility] Comment on above: Performed By: #### C MP, LIPA #### [facility] [address] [address] [address] Dee Humphrey Calcium [Mass/Vol] 9.0 mg/dL Normal 8.5-10.1 [facility] Comment on above: Performed By: #### C MP, LIPA #### [facility] [address] [address] [address] Dee Humphrey Chloride [Moles/Vol] 103 mmol/L Normal 98-107 [facility] Comment on above: Performed By: #### C MP, LIPA #### [facility] [address] [address] [address] Dee Humphrey CO2 [Moles/Vol] 27.1 mmol/L Normal 21.0-32.0 [facility] Comment on above: Performed By: #### C MP, LIPA #### [facility] [address] [address] [address] Dee Humphrey Creatinine [Mass/Vol] 0.86 mg/dL Normal 0.55-1.02 [facility] Comment on above: Performed By: #### C MP, LIPA #### [facility] [address] [place] [address] Dr. Dee Humphrey EGFR-AF BURKINAN >60 Normal >=60 [facility] Comment on above: Performed By: #### C MP, LIPA #### [facility] [address] [place] [address] Dr. Dee Humphrey EGFR-NON AF BURKINAN >60 Normal >=60 [facility] Comment on above: Performed By: #### C MP, LIPA #### [facility] [address] [place] [address] Dr. Dee Humphrey Globulin (S) [Mass/Vol] 4.1 g/dL Normal [facility] Comment on above: Performed By: #### C MP, LIPA #### [facility] [address] [address] [address] Dee Humphrey Glucose [Mass/Vol] 99 mg/dL Normal 74-106 [facility] Comment on above: Performed By: #### C MP, LIPA #### [facility] [address] [place] [address] Dr. Dee Humphrey Potassium [Moles/Vol] 3.6 mmol/L Normal 3.5-5.1 [facility] Comment on above: Performed By: #### C MP, LIPA #### [facility] [address] [address] [address] Dee Humphrey Protein [Mass/Vol] 7.9 g/dL Normal 6.4-8.2 [facility] Comment on above: Performed By: #### C MP, LIPA #### [facility] [address] [address] [address] Dee Humphrey Sodium [Moles/Vol] 136 mmol/L Normal 136-145 [facility] Comment on above: Performed By: #### C MP, LIPA #### [facility] [address] [address] [address] Dee Humphrey Urea nitrogen [Mass/Vol] 12.0 mg/dL Normal 7.0-18.0 [facility] [facility] Comment on above: Performed By: #### C MP, LIPA #### [facility] [address] [address] [address] Dee Humphrey Urea nitrogen/Creatinine [Mass ratio] 14.0 mg/mg Normal [facility] Comment on above: Performed By: #### C MP, LIPA #### [facility] [address] [address] [address] Dee Humphrey Consent for COVID Vaccineon 08-09-2020 SARS-CoV-2 (COVID-19) RNA J LUIS+probe Ql (Unsp spec) [id number]:127 Normal [facility] Consent for Treatmenton 07-30 Consent for Treatment [id number]:127 Normal [facility] Coding Summary.on 08-07-2020 Coding Summary. CODING DATE: 08/07/2020 FINAL [facility] STATUS: PAYOR: Luzma APC DESCRIPTION [id number] [...] Paredes Date Saved: 08/07/2020 02:46 pm Normal [facility] Ambulatory Clinical Summaryo n 03-25-2020 Ambulatory Clinical Summary {[id number] Normal [facility] Patient Educationon 03-19-20 20 Patient [...] irritable, agitate (more content not included)... Normal [facility] Video Visit - Telehealtho n 02-23-2020 [...] interactive video communications from my office using [employer] due to the restrictions of the COVID-19 pandemic. No physical exam was conducted other than those areas of the body visible to telecommunications with the patient located at [address] [place] [address], with no one else in attendance. If [...] Stopped age (more content not included)... Normal [facility] Comment on above: Result Comment: Elec tronically Signed By: Deepa [facility], Maia Ashley\.br\Date and Time Signed: 02/22/20 [...] interactive video communications from my office using [employer] due to the restrictions of the COVID-19 pandemic. No physical exam was conducted other than those areas of the body visible to telecommunications with the patient located at [address] [place] [address], with no one else in attendance. If [...] Sister. Depres (more content not included)... Normal [facility] Comment on above: Result Comment: Elec tronically Signed By: Deepa [facility], Maia Ashley\.mati\Date and Time Signed: 02/11/20 14:46 EDT Video [...] interactive video communications from my office using [employer] due to the restrictions of the COVID-19 pandemic. No physical exam was conducted other than those areas of the body visible to telecommunications with the patient located at [address] [place] [phone], with no one else in attendance. If [...] - Denies (more content not included)... Normal [facility] Comment on above: Result Comment: Elec tronically Signed By: Deepa [facility], Maia Montero.mati\Date and Time Signed: 02/11/20 [...] interactive video communications from my office using [employer] due to the restrictions of the COVID-19 pandemic. No physical exam was conducted other than those areas of the body visible to telecommunications with the patient located at [address] [place] [phone], with no one else in attendance. If [...] Tobacco F (more content not included)... Normal [facility] Comment on above: Result Comment: Elec tronically Signed By: Deepa [facility], Maia Montero.mati\Date and Time Signed: 01/29/20 [...] interactive video communications from my office using [employer] due to the restrictions of the COVID-19 pandemic. No physical exam was conducted other than those areas of the body visible to telecommunications with the patient located at [address] [place] [phone], with no one else in attendance. If [...] Yes, 09 (more content not included)... Normal [facility] Comment on above: Result Comment: Elec tronically Signed By: Deepa [facility], aMia Montero.mati\Date and Time Signed: 01/29/20 21:38 EDT [...] drow (more content not included)... Normal [facility] Video Visit - Telehealtho n 01-13-2020 [...] interactive video communications from my office using [employer] due to the restrictions of the COVID-19 pandemic. No physical exam was conducted other than those areas of the body visible to telecommunications with the patient located at [address] [place], [place] [phone], with no one else in attendance. If [...] Tobacco For (more content not included)... Normal [facility] Comment on above: Result Comment: Elec tronically Signed By: [facility].mati\Date and Time Signed: 01/13/20 09:40 EDT Patient [...] include drow (more content not included)... Normal [facility] Video Visit - Telehealtho n 01-07-2020 [...] interactive video communications from my office using [employer] due to the restrictions of the COVID-19 pandemic. No physical exam was conducted other than those areas of the body visible to telecommunications with the patient located at [address] [place] [address], with no one else in attendance. If [...] Use:. N (more content not included)... Normal [facility] Comment on above: Result Comment: Elec tronically Signed By: Deepa [facility], Maia Montero.br\Date and Time Signed: 01/07/20 [...] interactive video communications from my office using [employer] due to the restrictions of the COVID-19 pandemic. No physical exam was conducted other than those areas of the body visible to telecommunications with the patient located at [address] [place] [address], with no one else in attendance. If [...] Father and (more content not included)... Normal [facility] Comment on above: Result Comment: Elec tronically Signed By: Deepa [facility], Maia Montero.mati\Date and Time Signed: 12/30/19 [...] interactive video communications from my office using [employer] Face[employer] due to the restrictions of the COVID-19 pandemic. No physical exam was conducted other than those areas of the body visible to telecommunications with the patient located at [address] [place] [phone], with no one else in attendance. If [...] Alcohol U (more content not included)... 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 Normal [facility] Video Visit - Telehealtho n 12-04-2019 [...] interactive video communications from my office using [employer] due to the restrictions of the COVID-19 pandemic. No physical exam was conducted other than those areas of the body visible to telecommunications with the patient located at [address] [place], [place] [phone], with no one else in attendance. If [...] Daily, 5 (more content not included)... Normal [facility] Comment on above: Result Comment: Elec tronically Signed By: Deepa [facility], Maia Montero.mati\Date and Time Signed: 12/04/19 [...] rate, h (more content not included)... Normal [facility] Vital Signs Date Time Vital Sign Value Performing Clinician Facility 08-18-2023 14:24-0400 Body height 160.02 cm [facility] 08-18-2023 14:24-0400 Body mass index (BMI) [Ratio] 40.2 kg/m2 [facility] 08-18-2023 14:24-0400 Body temperature 98.4 [degF] [facility] 08-18-2023 14:24-0400 Body weight 103.02 kg [facility] 08-18-2023 14:24-0400 Diastolic blood pressure 81 mm[Hg] [facility] 08-18-2023 14:24-0400 Heart rate 101 /min [facility] 08-18-2023 14:24-0400 Respiratory rate 16 /min [facility] 08-18-2023 14:24-0400 SaO2% (BldA) [Mass fraction] 98 % [facility] 08-18-2023 14:24-0400 Systolic blood pressure 133 mm[Hg] [facility] 04-27-2023 16:30-0500 Body height 160.02 cm Sanaz Lockwood Other [facility] Other 04-27-2023 16:30-0500 Body mass index (BMI) [Ratio] 40.92 kg/m2 Sanaz Lockwood Other [employer] [facility] Other 04-27-2023 16:30-0500 Body temperature 98.2 [degF] Sanaz Lockwood Other [employer] [facility] Other 04-27-2023 16:30-0500 Body weight 104.78 kg Sanaz Lockwood Other [facility] Other 04-27-2023 16:30-0500 Respiratory rate 18 /min Sanaz Lockwood Other [facility] Other 04-27-2023 16:30-0500 SaO2% (BldA) [Mass fraction] 99 % Sanaz Lockwood Other [facility] Other 05-10-2022 14:45-0500 Body height 160.02 cm Kaylah Han Other [facility] Other 05-10-2022 14:45-0500 Body mass index (BMI) [Ratio] 38.97 kg/m2 Kaylah Lottault Other [facility] Other 05-10-2022 14:45-0500 Body temperature 99.3 [degF] Kaylah Han Other [facility] Other 05-10-2022 14:45-0500 Body weight 99.79 kg Kaylah Han Other [facility] Other 06-29-2019 22:40-0500 Pulse (Heart Rate) 84 /min [facility] 06-29-2019 22:40-0500 Pulse Oximetry 97 % [facility] 06-29-2019 22:35-0500 BP Diastolic 56 mm[Hg] [facility] 06-29-2019 22:35-0500 BP Systolic 100 mm[Hg] [facility] 06-29-2019 21:11-0500 BMI (Body Mass Index) 33.1 kg/m2 [facility] 06-29-2019 21:11-0500 Body Temperature 97.8 [degF] Kimberlyn Xie [facility] 06-29-2019 21:11-0500 Body [facility] 84.8 [facility]-29-2019 21:110500 Height 160.02 cm Kimberlyn [facility] 06-29-2019 21:110500 Respiratory Rate 20 /min Kimberlyn [facility] Encounters Encounter Date Encounter Type Care Provider Facility Start: 01-24-2024 End: 01-24-2024 ambulatory MAKENZIE SARAY Not Available Start: 01-03-2024 End: 01-03-2024 ambulatory GUERRERO DUQUE Not Available Start: 12-25-2023 End: 12-25-2023 ambulatory MAKENZIE SARAY Not Available Start: 11-24-2023 End: 11-24-2023 ambulatory MAKENZIE SARAY Not Available Start: 08-18-2023 End: 08-18-2023 ambulatory [facility] Work Phone: Start: 08-18-2023 End: 08-18-2023 Patient encounter procedure [facility] Work Phone: Start: 04-27-2023 End: 04-27-2023 ambulatory Sanaz Lockwood Other [facility] Other Start: 04-27-2023 Office outpatient visit 25 minutes Sanaz Lockwood [facility] Start: 05-10-2022 End: 05-10-2022 ambulatory Kaylah Han Other [facility] Other Start: 05-10-2022 Office outpatient ne w 20 minutes Kaylah Han [facility] Start: 04-27-2022 End: 04-27-2022 ambulatory KIMBERLYN XIE Facility:[facility] Start: 03-07-2022 End: 03-07-2022 ambulatory KIMBERLYN XIE Facility:[facility] Start: 09-23-[address] JAZIEL HILL Facility :[facility] Start: 06-29-2019 End: 06-29-2019 Emergency department patient visit Kimberlyn Xie [facility] Procedures Date Procedure Procedure Detail Performing Clinician Start: 08-18-2023 Quick Strep (POC) Plan of Treatment Date Care Activity Detail Author Patient Education Epinephrine (B y injection) Anaphylaxis (ED) General Allergic Reaction (ED) [facility] Patient referral [facility] Payers Date Payer Category Payer Unknown [id number] [id number] [id number] 1987 Unknown [id number] 2.16.84 [id number] 1987 Unknown [id number] 2.16.84 [id number] 1987 Unknown [id number] 2.16.84 [id number] 1987 Unknown [id number] 2.16.84 [id number] 1987 Unknown [id number] 2.16.84 [id number] 1987 Unknown [id number] 2.16.84 [id number] 1959 Self-pay [id number] 1957 Unknown [id number] Private Health Insurance [id number] Self-pay Self Pay [id number] Social History Date Type Detail Facility Start: 06-29-2019 End: 08-18-2023 Tobacco smoking status NHIS Smoker (finding) [facility] Start: 1985 Sex Assigned At Female F [facility] Sex Assigned At Sex Assigned At Bir th [facility] Other Goals Date Patient Goal Desired Activity [...] condition. Mar, Sore throat (ICD-10 - J02.9) [facility] Other 01-10-2023 Evaluation note* Encounter Date Diagnosis [...] weeks for the cough to go away [facility] Other 11-07-2022 NoteIndication: Abdominal pain. Comparison: None [...] Electronically authenticated by: SURJIT FREITAS Date: 2022-03-07 20:49[facility]11-19[facility]2020 NoteHPI Staff This visit was conducted via phone communications from my office due to the restrictions of the COVID-19 pandemic. No physical exam was conducted due to audio only communication with the patient located at [address] [place] [phone], with no one else. If it is determined that the patientshould be evaluated in person, the patient will be directed to the appropriate clinic or venue. Thepatient or their guardian verbally consented to this visit. Phone time was 15 minutes discussing health issues with counseling and coordination of care. Subjective Interval History/HPI Patient presents today for follow up via telehealth phone from homealone. Patient started Latuda 20mg last evening with [...] anxiety, # 30 tab(s), Refills(s) 2, Pharmacy: [facility]/pharmacy #[id number], 161, cm, 12/23/19 10:18:00 EDT, Height/Length Dosing, 82, kg, 12/23/19 10:18:00 EDT, Weight Dosing Orders: lurasidone, 20 mg = 1 tab(s), Oral, Daily, with 350 calories; begin this dose first then progress to next dose of 40mg, X 1 week(s), # 7 tab(s), Refills(s) 0, Pharmacy: [facility]/pharmacy #[id number], 161, cm, 12/23/19 10:18:00 EDT, Height/Length Dosing, 82, kg, 12/23/19 10:... lurasidone, 40 mg = 1 tab(s), Oral, Daily, with 350 calories, # 30 tab(s), Refills(s) 1, Pharmacy: [facility]/pharmacy #[id number], 161, cm, 12/23/19 10:18:00 [...] (generalized anxiety disorder) Hidr (more content not included)...[facility] Result Comment: Electronically Signed By: Carlota RODRIGUEZ CNP\.br\Date and Time Signed: 03/19/20 14:27 [id number] NoteI Staff This visit was conducted via two-way, real-time interactive video communications from my office using [employer] due to the restrictions of the COVID-19 pandemic. No physical exam was conducted other than those areas of the body visible to telecommunications with the patient located at [address] [place] [phone], with no one else in attendance. If [...] limits BH Speech: Normal, Other: normal prosody Mood.: Good [...] Ordered: TELEHEALTH Office Visit Level 3 Est 00632 General Treatment Plan Maintain medication regimen _Improve [...] Employed, 03/18/2019 Home/Environment Lani (more content not included)...[facility]: Result Comment: Electronically Signed By: Carlota RODRIGUEZ CNP\Date and Time Signed: 03/05/20 13:32 [id number] NoteHPI Staff This visit was conducted via two-way, real-time interactive video communications from my office using [employer] due to the restrictions of the COVID-19 pandemic. No physical exam was conducted other than those areas of the body visible to telecommunications with the patient located at [address] [place] [phone], with no one else in attendance. If [...] anxiety, # 30 tab(s), Refills(s) 1, Pharmacy: [facility]/pharmacy #[id number], 161, cm, 12/23/19 10:18:00 EDT, Height/Length Dosing, 82, kg, 12/23/19 10:18:00 EDT, Weight Dosing alprazolam, 0.5 mg = 1 tab(s), Oral, TID, PRN for anxiety, # 30 tab(s), Refills(s) 1, Pharmacy: [facility]/pharmacy #[id number], 161, cm, 12/23/19 10:18:00 EDT, Height/Length Dosing, 82, kg, 12/23/19 10:18:00 EDT, Weight Dosing aripiprazole, See Instructions, 1.5 tab po qAM, # 30 tab(s), Refills(s) 2, Pharmacy: [facility]/pharmacy #[id number], 161, cm, 12/23/19 10:18:00 EDT, Height/Length Dosing, 82, kg, 12/23/19 10:18:00 EDT, Weight Dosing aripiprazole, See Instructions, 1 tab po qAM, # 30 tab(s), Refills(s) 5, [id number], cm, 12/23/19 10:18:00 EDT, Height/Length Dosing, 82, kg, 12/23/19 10:18:00 EDT, Weight Dosing cyclobenzaprine, 10 mg = 1 tab(s), Oral, TID, PRN for spasm, # 30 tab(s), Refills(s) 1, [id number], 161, cm, 06/13/19 14:39:00 EST, Height/Length Measured, 82, kg, 06/13/19 14:39:00EST, Weight Measured cyclobenzaprine, 10 mg = 1 tab(s), Oral, TID, PRN for spasm, # 30 tab(s), Refills(s) 1, [id number] 161, cm, 12/23/19 10:18:00 EDT, Height/Length Dosing, 82, kg, 12/23/19 10:18:00 EDT, Weight Dosing General Treatment Plan Maintain medication regimen _Improve mood stability _Improve anxiety control _Improve social and interpersonal functioning Clinical Global Impression 62 Prognosis progressing Follow-up With When Contact Information Carlota RODRIGUEZ CNP In 4 weeks Additional Instructions: (more content not included)...[facility] Hospital[facility]:Result Comment: Electronically Signed By: Carlota RODRIGUEZ CNP\.br\Date and Time Signed: 01/27/20 22:35 [id number] NoteI Staff This visit was conducted via two-way, real-time interactive video communications from my office using [employer] due to the restrictions of the COVID-19 pandemic. No physical exam was conducted other than those areas of the body visible to telecommunications with the patient located at [address] [place] [address], with no one else in attendance. If [...] Ordered: TELEHEALTH Office Visit Level 3 Est 65673 General Treatment Plan Maintain medication regimen _Improve [...] Use:. Never Smokeless Tob (more content not included)...[facility] Hospital[facility]:Result Comment: Electronically Signed By: Carlota RODRIGUEZ CNP\.br\Date and Time Signed: 01/13/20 09:11 [id number] NoteI Staff This visit was conducted via two-way, real-time interactive video communications from my office using [employer] due to the restrictions of the COVID-19 pandemic. No physical exam was conducted other than those areas of the body visible to telecommunications with the patient located at [address] [place] [phone], with no one else in attendance. If [...] welbutrin reviewed past meds with patient, sammy pamelaangeliquedentonsalomon Tang. reviewed side effects of SGA meds including: Second generation antipsychotic medications can cause headache, drowsiness, agitation, dizziness, nausea, or extrapyramidal symptoms such as tremors, muscle spasms, slowness of movement or jerking of muscles. Orders: alprazolam, 0.5 mg = 1 tab(s), Oral, TID, PRN for anxiety, # 30 tab(s), Refills(s) 1, [id number], cm, 12/23/19 10:18:00 EDT, Height/Length Dosing, 82, kg, 12/23/19 10:18:00 EDT, Weight Dosing alprazolam, 0.5 mg = 1 tab(s), Oral, TID, PRN for anxiety, # 30 tab(s), Refills(s) 1, [id number], 161, cm, 06/13/19 14:39:00 EST, Height/Length Measured, 82, kg, 06/13/19 14:39:00 EST, Weight Measured aripiprazole, See Instructions, 1 tab po qAM, # 30 tab(s), Refills(s) 0, [id number], 161, cm, 12/23/19 10:18:00 EDT, [...] Allergies Bactrim Social History (more content not included)...[facility] HospitalComment on above:Result Comment: Electronically Signed By: Carlota RODRIGUEZ CNP\harshil\Date and Time Signed: 12/23/19 16:37 [id number] NoteHPI Staff This visit was conducted via two-way, real-time interactive video communications from my office using [employer] due to the restrictions of the COVID-19 pandemic. No physical exam was conducted other than those areas of the body visible to telecommunications with the patient located at [address] [place] [address], with no one else in attendance. If [...] q24hr, # 30 tab(s), Refills(s) 2, Pharmacy: [facility]/pharmacy #[id number],161, cm, 06/13/19 14:39:00 EST, Height/Length Measured, 82, kg, 06/13/19 14:39:00 EST, Weight Measured cyclobenzaprine, 10 mg = 1 tab(s), Oral, TID, PRN for spasm, # 30 tab(s), Refills(s) 1, Pharmacy: [facility]/pharmacy #[id number], 161, cm, 06/13/19 14:39:00 [...] Employment/School Employed, 03/18/2019 Home/Environment (more content not included)...[facility] HospitalComment on above:Result Comment: Electronically Signed By: Carlota RODIRGUEZ CNP\.br\Date and Time Signed: 12/02/19 16:38 EDTChief complaint+Reason for visit Narrative* Chief Complaint Nausea, diarrhea, fe zhou Reason for Visit Contact with and (louis spected) exposure to covid-19 Sore throat [facility] Work Phone: Evaluation note* Diagnosis Onset Date Resolution Status Contact with and (suspected) exposure to covid-19 noneactive Sore throat noneactive [facility] Work Phone: History general Narrative - Reported* Type Description Date Medical History Bipolar Surgical History appendectomy Surgical History x 3 Hospitalization History see above surgical histo ry [facility] Other Advance Directives No Advanced Directives Records [...] may need to be seen by an mobile tester if you have other events like this without definite egg exposure. Summary Purpose Family History No Family History Records Found Relationship Condition Age at Onset Recorded Date/T alo father Diabetes mellitus Unknown Hypertension Unknown Additional Source Comments INFORMATION SOURCE (unrecogn ized section and content) DATE CREATED AUTHOR 10/30/2020 [place] [facility] DATE CREATED AUTHOR AUTHOR'S ORGANIZ ATION 04/29/2022 [facility] DATE CREATED AUTHOR AUTHOR'S ORGANIZ ATION 01/26/2024 [facility] EPIC REASON FOR VISIT (unrecogniz ed [...] BE BASED ON THE PRIMARY CLINICAL RECORDS. [facility]. provides no warranty or guarantee of the accuracy or completeness of information in this document.
== END 2024-02-06 16:00 | disposition left against medical advice (07) ==
PROVIDERS: Emergency Provider Student in an Organized Health Care Education/Training Program; PCP Nurse Practitioner Family
DX: Z53.21 Procedure and treatment not carried out due to patient leaving prior to being seen by health care provider (principal)

== ENCOUNTER 2024-02-06 16:06 | Inpatient (IN) | payer BC, SELFPAY ==
--- OUTSIDE RECORDS SUMMARY | 2024-02-06 16:12 | XMS_ITS | CCD ---
Author Organization [facility] Inform ion Partnership [facility] Care Team Providers Care Dietitian Consultant Name Role Phone Kimberlyn Xie Primary Care [...] Drug Allergy 08-18-19 24 Vomiting [facility] (2 sources) Sulfamethoxazole Drug Allergy 08-18-19 24 Unknown Reaction, Unknown Reaction, [facility] (2 sources) Trimethoprim Drug Allergy 08-18-19 24 Unknown Reaction, Unknown Reaction, [facility] (2 sources) Fish Containing Products Propensity to adverse reactions 08-18-19 24 Difficulty Breathing [facility] (1 source) Sulfamethoxazole / Trimethoprim Drug Allergy 02-04-20 13 [facility] (2 sources) Sulfamethoxazole / Trimethoprim Drug Allergy [facility] Other Medications Current Medications Medication Drug Class(es) Dates Sig (Normalized) Sig (Original) [id number] 200 actuat albuterol 0.09 mg/actuat metered dose [...] oral tablet (1 source) alpha-Adrenergic Agonist, Uncompetitive E-eqavfp-X-asparta te Receptor Antagonist, Sigma-1 Agonist Start: 04-27-2023 take 4 tablets by mouth every twenty-four hours as needed Capmist DM 60-15-400 MG as needed Orally every 4-6 hours as needed, max 4 tablets in 24 hours for 5 days Mar, Active [id number] 0.3 ml EPINEPHrine 1 mg/ml auto-injector (2 [...] 03-09-2022 Episodic Other aftercare (1 source) 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 pyogenes Org specific cx Ql (Throat) Negative [facility] Other Quick Strep [facility] Other COVID/FLU/RSV RT-PCRon 05-10 SARS-CoV-2 (COVID-19) RNA J LUIS+probe Ql (Unsp spec) Negative [facility] Other COVID/FLU/RSV RT-PCR Positive [facility] [employer] Other COVID/FLU/RSV RT-PCR Negative [facility] [employer] Other CBC AUTO DIFFon 04-27-2022 BASO # 0.0 103/ul Normal 0.0-0.1 [facility] Comment on above: Performed By: #### C BC #### [facility] [address] [address] [address] Dee Humphrey Basophils/100 WBC (Bld) 0.2 % Normal 0.2-2.0 [facility] Comment on above: Performed By: #### C BC #### [facility] [address] [address] [address] Dee Humphrey EO # 0.1 103/ul Normal 0.0-0.7 [facility] Comment on above: Performed By: #### C BC #### [facility] [address] [place] [address] Dr. Dee Humphrey Eosinophils/100 WBC (Bld) 0.6 % Critically low 0.9-7.0 [facility] Comment on above: Performed By: #### C BC #### [facility] [address] [place] [address] Dr. Dee Humphrey Erythrocyte distribution width (RBC) [Ratio] 14.1 % Normal 11.0-15.0 [facility] Comment on above: Performed By: #### C BC #### [facility] [address] [place] [address] Dr. Dee Humphrey Hematocrit (Bld) [Volume fraction] 37.1 % Normal 36.0-48.0 [facility] Comment on above: Performed By: #### C BC #### [facility] [address] [place] [address] Dr. Dee Humphrey Hemoglobin (Bld) [Mass/Vol] 12.4 g/dL Normal 12.0-16.0 [facility] Comment on above: Performed By: #### C BC #### [facility] [address] [place] [address] Dr. Dee Humphrey IG # 0.06 10e3/ul Critically high 0.00-0.03 [facility] Comment on above: Performed By: #### C BC #### [facility] [address] [place] [address] Dr. Dee Humphrey IG % 0.5 % Normal 0.0-0.5 [facility] Comment on above: Performed By: #### C BC #### [facility] [address] [place] [address] Dr. Dee Humphrey LYMPH # 3.7 103/ul Normal 1.2-3.8 [facility] Comment on above: Performed By: #### C BC #### [facility] [address] [place] [address] Dr. Dee Humphrey Lymphocytes/100 WBC (Bld) 28.7 % Normal 20.5-60.0 [facility] Comment on above: Performed By: #### C BC #### [facility] [address] [place] [address] Dr. Dee Humphrey MANUAL DIFF REQ NO Normal [facility] Comment on above: Performed By: #### C BC #### [facility] [address] [place] [address] Dr. Dee Humphrey MCH (RBC) [Entitic mass] 30.2 pg Normal 26.7-34.0 [facility] Comment on above: Performed By: #### C BC #### [facility] [address] [place] [address] Dr. Dee Humphrey MCHC (RBC) [Mass/Vol] 33.4 g/dL Normal 29.9-35.2 [facility] Comment on above: Performed By: #### C BC #### [facility] [address] [place] [address] Dr. Dee Humphrey MCV (RBC) [Entitic vol] 90.5 fL Normal 81.0-99.0 [facility] Comment on above: Performed By: #### C BC #### [facility] [address] [place] [address] Dr. Dee Humphrey MONO # 0.7 103/ul Normal 0.3-0.8 [facility] Comment on above: Performed By: #### C BC #### [facility] [address] [place] [address] Dr. Dee Humphrey Monocytes/100 WBC (Bld) 5.0 % Normal 1.7-12.0 [facility] Comment on above: Performed By: #### C BC #### [facility] [address] [place] [address] Dr. Dee Humphrey NEUT # 8.5 103/ul Critically high 1.4-6.5 [facility] Comment on above: Performed By: #### C BC #### [facility] [address] [address] [address] Dee Humphrey Neutrophils/100 WBC (Bld) 65.0 % Normal 43.0-75.0 [facility] Comment on above: Performed By: #### C BC #### [facility] [address] [place] [address] Dr. Dee Humphrey Platelet mean volume (Bld) [Entitic vol] 9.6 fL Normal 9.5-13.5 [facility] Comment on above: Performed By: #### C BC #### [facility] [address] [place] [address] Dr. Dee Humphrey PLT 317 103/ul Normal 150-450 [facility] Comment on above: Performed By: #### C BC #### [facility] [address] [place] [address] Dr. Dee Humphrey RBC 4.10 106/ul Critically low 4.20-5.40 [facility] Comment on above: Performed By: #### C BC #### [facility] [address] [place], [place] [id number] Dr. Dee Humphrey WBC 13.1 103/ul Critically high 4.0-11.0 [facility] Comment on above: Performed By: #### C BC #### [facility] [address] [place] [address] ABD/PELVIS WO CONon [...] ROCIO CHAU Date: 2022-04-27 20:24 Normal [facility] ER URINE PROFILEon 2 Bilirubin Ql (U) Negative Normal NEGATIVE [facility] Comment on above: Performed By: #### P REGU, ERUR #### [facility] [address] [place] [address] Dr. Dee Humphrey Clarity (U) CLEAR Normal CLEAR [facility] Comment on above: Performed By: #### P REGU, ERUR #### [facility] [address] [address] [address] Dee Humphrey Color (U) YELLOW Normal YELLOW [facility] Comment on above: Performed By: #### P REGU, ERUR #### [facility] [address] [address] [address] Dee Humphrey ERUAHD A micrscopic examination will be performed if indicated. Normal [facility] Comment on above: Performed By: #### P REGU, ERUR #### [facility] [address] [address] [address] Dee Humphrey Glucose Ql (U) Negative Normal NEGATIVE [facility] Comment on above: Performed By: #### P REGU, ERUR #### [facility] [address] [address] [address] Dee Humphrey Hemoglobin Ql (U) Negative Normal NEGATIVE [facility] Comment on above: Performed By: #### P REGU, ERUR #### [facility] [address] [place] [address] Dr. Dee Humphrey Ketones Ql (U) Negative Normal NEGATIVE [facility] Comment on above: Performed By: #### P REGU, ERUR #### [facility] [address] [place] [address] Dr. Dee Humphrey LEUKOCYTES Negative Normal NEGATIVE [facility] Comment on above: Performed By: #### P REGU, ERUR #### [facility] [address] [place] [address] Dr. Dee Humphrey Nitrite Ql (U) Negative Normal NEGATIVE [facility] Comment on above: Performed By: #### P REGU, ERUR #### [facility] [address] [place] [address] Dr. Dee Humphrey pH (U) 5.5 [pH] Normal 5-9 [facility] Comment on above: Performed By: #### P REGU, ERUR #### [facility] [address] [place] [address] Dr. Dee Humphrey SPEC GRAVITY >=1.030 Abnormal 1.005-<=1.02 5 [facility] Comment on above: Performed By: #### P REGU, ERUR #### [facility] [address] [place] [address] Dr. Dee Humphrey UA PROTEIN Negative Normal NEGATIVE/ TRACE [facility] Comment on above: Performed By: #### P REGU, ERUR #### [facility] [address] [place] [address] Dr. Dee Humphrey UR MICRO IND NOT INDICATED Normal [facility] Comment on above: Performed By: #### P REGU, ERUR #### [facility] [address] [place] [address] Dr. Dee Humphrey Urobilinogen Qn (U) 0.2 {Blanca'U}/dL Normal 0.2 - 1. 0 [facility] Comment on above: Performed By: #### P REGU, ERUR #### [facility] [address] [place] [address] Dr. Dee Humphrey LIPASEon 04-27-2022 Lipase [Catalytic activity/Vol] 94.0 U/L Normal 73.0-393.0 [facility] Comment on above: Performed By: #### L IPA, CMP #### [facility] [address] [place] [address] Dr. Dee Humphrey URon 04-27-2022 , QUAL Negative Normal NEGATIVE [facility] Comment on above: Performed By: #### P REGU, ERUR #### [facility] [address] [place] [address] Dr. Dee Humphrey PROF 14(COMP METB)on 022 Albumin [Mass/Vol] 3.9 g/dL Normal 3.4-5.0 [facility] Comment on above: Performed By: #### L IPA, CMP #### [facility] [address] [place] [address] Dr. Dee Humphrey Albumin/Globulin [Mass ratio] 1.0 {ratio} Normal [facility] Comment on above: Performed By: #### L IPA, CMP #### [facility] [address] [place] [address] Dr. Dee Humphrey ALP [Catalytic activity/Vol] 87 U/L Normal 46-116 [facility] Comment on above: Performed By: #### L IPA, CMP #### [facility] [address] [place] [address] Dr. Dee Humphrey ALT [Catalytic activity/Vol] 31 U/L Normal 14-59 [facility] Comment on above: Performed By: #### L IPA, CMP #### [facility] [address] [place] [address] Dr. Dee Humphrey Anion gap [Moles/Vol] 10.8 mmol/L Normal [facility] Comment on above: Performed By: #### L IPA, CMP #### [facility] [address] [place] [address] Dr. Dee Humphrey AST [Catalytic activity/Vol] 17 U/L Normal 15-37 [facility] Comment on above: Performed By: #### L IPA, CMP #### [facility] [address] [place] [address] Dr. Dee Humphrey Bilirubin [Mass/Vol] 0.1 mg/dL Critically low 0.2-1.0 [facility] Comment on above: Performed By: #### L IPA, CMP #### [facility] [address] [place] [address] Dr. Dee Humphrey Calcium [Mass/Vol] 8.9 mg/dL Normal 8.5-10.1 [facility] Comment on above: Performed By: #### L IPA, CMP #### [facility] [address] [place] [address] Dr. Dee Humphrey Chloride [Moles/Vol] 103 mmol/L Normal 98-107 [facility] Comment on above: Performed By: #### L IPA, CMP #### [facility] [address] [place] [address] Dr. Dee Humphrey CO2 [Moles/Vol] 26.9 mmol/L Normal 21.0-32.0 [facility] Comment on above: Performed By: #### L IPA, CMP #### [facility] [address] [place] [address] Dr. Dee Humphrey Creatinine [Mass/Vol] 0.80 mg/dL Normal 0.55-1.02 [facility] Comment on above: Performed By: #### L IPA, CMP #### [facility] [address] [place] [address] Dr. Dee Humphrey EGFR-AF MONTENEGRIN >60 Normal >=60 [facility] Comment on above: Performed By: #### L IPA, CMP #### [facility] [address] [place] [address] Dr. Dee Humphrey EGFR-NON AF MONTENEGRIN >60 Normal >=60 [facility] Comment on above: Performed By: #### L IPA, CMP #### [facility] [address] [place] [address] Dr. Dee Humphrey Globulin (S) [Mass/Vol] 3.9 g/dL Normal [facility] Comment on above: Performed By: #### L IPA, CMP #### [facility] [address] [place] [address] Dr. Dee Humphrey Glucose [Mass/Vol] 96 mg/dL Normal 74-106 [facility] Comment on above: Performed By: #### L IPA, CMP #### [facility] [address] [place] [address] Dr. Dee Humphrey Potassium [Moles/Vol] 3.7 mmol/L Normal 3.5-5.1 [facility] Comment on above: Performed By: #### L IPA, CMP #### [facility] [address] [place] [address] Dr. Dee Humphrey Protein [Mass/Vol] 7.8 g/dL Normal 6.4-8.2 [facility] Comment on above: Performed By: #### L IPA, CMP #### [facility] [address] [place] [address] Dr. Dee Humphrey Sodium [Moles/Vol] 137 mmol/L Normal 136-145 [facility] Comment on above: Performed By: #### L IPA, CMP #### [facility] [address] [place] [address] Dr. Dee Humphrey Urea nitrogen [Mass/Vol] 13.0 mg/dL Normal 7.0-18.0 [facility] Comment on above: Performed By: #### L IPA, CMP #### [facility] [address] [place] [address] Dr. Dee Humphrey Urea nitrogen/Creatinine [Mass ratio] 16.2 mg/mg Normal [facility] Comment on above: Performed By: #### L IPA, CMP #### [facility] [address] [place] [address] Dr. Dee Humphrey CBC AUTO DIFFon 03-07-2022 BASO # 0.0 103/ul Normal 0.0-0.1 [facility] Comment on above: Performed By: #### C BC #### [facility] [address] [place] [address] Dr. Dee Humphrey Basophils/100 WBC (Bld) 0.3 % Normal 0.2-2.0 [facility] Comment on above: Performed By: #### C BC #### [facility] [address] [place] [address] Dr. Dee Humphrey EO # 0.1 103/ul Normal 0.0-0.7 [facility] Comment on above: Performed By: #### C BC #### [facility] [address] [address] [address] Dee Humphrey Eosinophils/100 WBC (Bld) 0.7 % Critically low 0.9-7.0 [facility] Comment on above: Performed By: #### C BC #### [facility] [address] [place] [address] Dr. Dee Humphrey Erythrocyte distribution width (RBC) [Ratio] 13.0 % Normal 11.0-15.0 [facility] Comment on above: Performed By: #### C BC #### [facility] [address] [place] [address] Dr. Dee Humphrey Hematocrit (Bld) [Volume fraction] 39.2 % Normal 36.0-48.0 [facility] Comment on above: Performed By: #### C BC #### [facility] [address] [place] [address] Dr. Dee Humphrey Hemoglobin (Bld) [Mass/Vol] 13.2 g/dL Normal 12.0-16.0 [facility] Comment on above: Performed By: #### C BC #### [facility] [address] [place] [address] Dr. Dee Humphrey IG # 0.05 10e3/ul Critically high 0.00-0.03 [facility] Comment on above: Performed By: #### C BC #### [facility] [address] [place] [address] Dr. Dee Humphrey IG % 0.5 % Normal 0.0-0.5 [facility] Comment on above: Performed By: #### C BC #### [facility] [address] [place] [address] Dr. Dee Humphrey LYMPH # 4.2 103/ul Critically high 1.2-3.8 [facility] Comment on above: Performed By: #### C BC #### [facility] [address] [place] [address] Dr. Dee Humphrey Lymphocytes/100 WBC (Bld) 43.1 % Normal 20.5-60.0 [facility] Comment on above: Performed By: #### C BC #### [facility] [address] [place] [address] Dr. Dee Humphrey MANUAL DIFF REQ NO Normal [facility] Comment on above: Performed By: #### C BC #### [facility] [address] [place] [address] Dr. Dee Humphrey MCH (RBC) [Entitic mass] 30.5 pg Normal 26.7-34.0 [facility] Comment on above: Performed By: #### C BC #### [facility] [address] [place] [address] Dr. Dee Humphrey MCHC (RBC) [Mass/Vol] 33.7 g/dL Normal 29.9-35.2 [facility] Comment on above: Performed By: #### C BC #### [facility] [address] [place] [address] Dr. Dee Humphrey MCV (RBC) [Entitic vol] 90.5 fL Normal 81.0-99.0 [facility] Comment on above: Performed By: #### C BC #### [facility] [address] [place] [address] Dr. Dee Humphrey MONO # 0.4 103/ul Normal 0.3-0.8 [facility] Comment on above: Performed By: #### C BC #### [facility] [address] [place] [address] Dr. Dee Humphrey Monocytes/100 WBC (Bld) 4.4 % Normal 1.7-12.0 [facility] Comment on above: Performed By: #### C BC #### [facility] [address] [place] [address] Dr. Dee Humphrey NEUT # 4.9 103/ul Normal 1.4-6.5 [facility] Comment on above: Performed By: #### C BC #### [facility] [address] [place] [address] Dr. Dee Humphrey Neutrophils/100 WBC (Bld) 51.0 % Normal 43.0-75.0 [facility] Comment on above: Performed By: #### C BC #### [facility] [address] [place] [address] Dr. Dee Humphrey Platelet mean volume (Bld) [Entitic vol] 9.6 fL Normal 9.5-13.5 [facility] Comment on above: Performed By: #### C BC #### [facility] [address] [place] [address] Dr. Dee Humphrey PLT 364 103/ul Normal 150-450 [facility] Comment on above: Performed By: #### C BC #### [facility] [address] [place] [address] Dr. Dee Humphrey RBC 4.33 106/ul Normal 4.20-5.40 [facility] Comment on above: Performed By: #### C BC #### [facility] [address] [place] [address] Dr. Dee Humphrey WBC 9.7 103/ul Normal 4.0-11.0 [facility] Comment on above: Performed By: #### C BC #### [facility] [address] [place] [address] Dr. Dee Humphrey LACTATE/LACTIC ACIDon 2021 Lactate [Moles/Vol] 1.1 mmol/L Normal 0.4-1.9 [facility] Comment on above: Performed By: #### P REGU, ERUR #### [facility] [address] [place] [address] Dr. Dee Humphrey LIPASEon 03-07-2022 Lipase [Catalytic activity/Vol] 79.0 U/L Normal 73.0-393.0 [facility] Comment on above: Performed By: #### C MP, LIPA #### [facility] [address] [address] [address] Dee Humphrey PROF 14(COMP METB)on 022 Albumin [Mass/Vol] 3.8 g/dL Normal 3.4-5.0 [facility] Comment on above: Performed By: #### C MP, LIPA #### [facility] [address] [address] [address] Dee Humphrey Albumin/Globulin [Mass ratio] 0.9 {ratio} Normal [facility] Comment on above: Performed By: #### C MP, LIPA #### [facility] [address] [address] [address] Dee Humphrey ALP [Catalytic activity/Vol] 80 U/L Normal 46-116 [facility] Comment on above: Performed By: #### C MP, LIPA #### [facility] [address] [place] [address] Dr. eDe Humphrey ALT [Catalytic activity/Vol] 27 U/L Normal 14-59 [facility] Comment on above: Performed By: #### C MP, LIPA #### [facility] [address] [address] [address] Dee Humphrey Anion gap [Moles/Vol] 9.5 mmol/L Normal [facility] Comment on above: Performed By: #### C MP, LIPA #### [facility] [address] [address] [address] Dee Humphrey AST [Catalytic activity/Vol] 13 U/L Critically low 15-37 [facility] Comment on above: Performed By: #### C MP, LIPA #### [facility] [address] [address] [address] Dee Humphrey Bilirubin [Mass/Vol] 0.1 mg/dL Critically low 0.2-1.0 [facility] Comment on above: Performed By: #### C MP, LIPA #### [facility] [address] [address] [address] Dee Humphrey Calcium [Mass/Vol] 9.0 mg/dL Normal 8.5-10.1 [facility] Comment on above: Performed By: #### C MP, LIPA #### [facility] [address] [address] [address] Dee Humphrey Chloride [Moles/Vol] 103 mmol/L Normal 98-107 [facility] Comment on above: Performed By: #### C MP, LIPA #### [facility] [address] [address] [address] Dee Humphrey CO2 [Moles/Vol] 27.1 mmol/L Normal 21.0-32.0 [facility] Comment on above: Performed By: #### C MP, LIPA #### [facility] [address] [address] [address] Dee Humphrey Creatinine [Mass/Vol] 0.86 mg/dL Normal 0.55-1.02 [facility] Comment on above: Performed By: #### C MP, LIPA #### [facility] [address] [place] [address] Dr. Dee Humphrey EGFR-AF MONTENEGRIN >60 Normal >=60 [facility] Comment on above: Performed By: #### C MP, LIPA #### [facility] [address] [place] [address] Dr. Dee Humphrey EGFR-NON AF MONTENEGRIN >60 Normal >=60 [facility] Comment on above: Performed By: #### C MP, LIPA #### [facility] [address] [place] [address] Dr. Dee Humphrey Globulin (S) [Mass/Vol] 4.1 g/dL Normal [facility] Comment on above: Performed By: #### C MP, LIPA #### [facility] [address] [address] [address] Dee Humphrey Glucose [Mass/Vol] 99 mg/dL Normal 74-106 [facility] Comment on above: Performed By: #### C MP, LIPA #### [facility] [address] [place] [address] Dr. Dee Humphrey Potassium [Moles/Vol] 3.6 mmol/L Normal 3.5-5.1 [facility] Comment on above: Performed By: #### C MP, LIPA #### [facility] [address] [address] [address] Dee Humphrey Protein [Mass/Vol] 7.9 g/dL Normal 6.4-8.2 [facility] Comment on above: Performed By: #### C MP, LIPA #### [facility] [address] [address] [address] Dee Humphrey Sodium [Moles/Vol] 136 mmol/L Normal 136-145 [facility] Comment on above: Performed By: #### C MP, LIPA #### [facility] [address] [address] [address] Dee Humphrey Urea nitrogen [Mass/Vol] 12.0 mg/dL Normal 7.0-18.0 [facility] Comment on above: Performed By: #### C MP, LIPA #### [facility] [address] [address] [address] Dee Humphrey Urea nitrogen/Creatinine [Mass ratio] 14.0 mg/mg Normal [facility] Comment on above: Performed By: #### C MP, LIPA #### [facility] [address] [address] [address] Dee Humphrey Consent for COVID Vaccineon 08-09-2020 SARS-CoV-2 (COVID-19) RNA J LUIS+probe Ql (Unsp spec) [id number] .[id number]:127 Normal [facility] Consent for Treatmenton 07-30 Consent for Treatment [id number] .[id number]:127 Normal [facility] Coding Summary.on 08-07-2020 Coding Summary. CODING DATE: 08/07/2020 FINAL [facility] STATUS: PAYOR: Luzma APC DESCRIPTION [...] Paredes Date Saved: 08/07/2020 02:46 pm Normal [facility] Ambulatory Clinical Summaryo n 03-25-2020 Ambulatory Clinical Summary {[id number]}CD:[id number] Normal [facility] Patient Educationon 03-19-20 20 Patient Education [...] irritable, agitate (more content not included)... Normal [facility] Video Visit - Telehealtho n 02-23-2020 [...] interactive video communications from my office using Moneyl[employer] due to the restrictions of the COVID-19 pandemic. No physical exam was conducted other than those areas of the body visible to telecommunications with the patient located at [address] [place] [address], with no one else in attendance. If [...] Stopped age (more content not included)... Normal [facility] Comment on above: Result Comment: Elec tronically Signed By: Depea [facility], Maia Ashley\.br\Date and [...] interactive video communications from my office using [employer]zing[employer] due to the restrictions of the COVID-19 pandemic. No physical exam was conducted other than those areas of the body visible to telecommunications with the patient located at [address] [place] [address], with no one else in attendance. If [...] Sister. Depres (more content not included)... Normal [facility] Comment on above: Result Comment: Elec tronically Signed By: Deepa [facility], Maia Ashley\.mati\Date and Time Signed: 02/11/20 14:46 [...] interactive video communications from my office using [employer] due to the restrictions of the COVID-19 pandemic. No physical exam was conducted other than those areas of the body visible to telecommunications with the patient located at [address] [place] [phone], with no one else in attendance. If [...] - Denies (more content not included)... Normal [facility] Comment on above: Result Comment: Elec tronically Signed By: Deepa [facility], Maia Montero.mati\Date and Time Signed: 02/11/20 14:37 [...] interactive video communications from my office using [employer] due to the restrictions of the COVID-19 pandemic. No physical exam was conducted other than those areas of the body visible to telecommunications with the patient located at [address] [place] [address] [phone], with no one else in attendance. If [...] Tobacco F (more content not included)... Normal [facility] Comment on above: Result Comment: Elec tronically Signed By: Deepa [facility], Maia Montero.mati\Date and Time Signed: 01/29/20 21:44 [...] interactive video communications from my office using [employer] due to the restrictions of the COVID-19 pandemic. No physical exam was conducted other than those areas of the body visible to telecommunications with the patient located at [address] [place] [phone], with no one else in attendance. If [...] Yes, 09 (more content not included)... Normal [facility] Comment on above: Result Comment: Elec [...] drow (more content not included)... Normal [facility] Video Visit - Telehealtho n [...] interactive video communications from my office using [employer] due to the restrictions of the COVID-19 pandemic. No physical exam was conducted other than those areas of the body visible to telecommunications with the patient located at [address] [place], [place] [phone], with no one else in attendance. If [...] Tobacco For (more content not included)... Normal [facility] Comment on above: Result Comment: Elec [...] include drow (more content not included)... Normal [facility] Video Visit - Telehealtho n 01-07-2020 [...] interactive video communications from my office using [employer] due to the restrictions of the COVID-19 pandemic. No physical exam was conducted other than those areas of the body visible to telecommunications with the patient located at [address] [place] [address], with no one else in attendance. If [...] Use:. N (more content not included)... Normal [facility] Comment on above: Result Comment: Elec tronically Signed By: Deepa [facility], Maia Montero.br\Date and Time Signed: 01/07/20 12:38 [...] interactive video communications from my office using [employer] due to the restrictions of the COVID-19 pandemic. No physical exam was conducted other than those areas of the body visible to telecommunications with the patient located at [address] [place] [address], with no one else in attendance. If [...] Father and (more content not included)... Normal [facility] Comment on above: Result Comment: Elec tronically Signed By: Deepa [facility], Maia Montero.mati\Date and Time Signed: 12/30/19 13:50 [...] to telecommunications with the patient located at [address] [place] [phone], with no one else in attendance. If [...] Alcohol U (more content not included)... Normal [facility] Comment on above: Result Comment: Elec tronically Signed By: Deepa [facility], Maia Ashley\.br\Date and Time Signed: 12/23/19 16:54 [...] include drow (more content not included)... Normal [facility] Video Visit - Telehealtho n 12-04-2019 [...] interactive video communications from my office using [employer] due to the restrictions of the COVID-19 pandemic. No physical exam was conducted other than those areas of the body visible to telecommunications with the patient located at [address] [place], [place] [phone], with no one else in attendance. If [...] Daily, 5 (more content not included)... Normal [facility] Comment on above: Result Comment: Elec [...] rate, h (more content not included)... Normal [facility] Vital Signs Date Time Vital Sign Value Performing Clinician Facility 08-18-2023 14:24-0400 Body height 160.[address] [facility] 08-18-2023 14:24-0400 Body mass index (BMI) [Ratio] 40.2 kg/m2 [facility] 08-18-2023 14:24-0400 Body temperature 98.4 [degF] [facility] 08-18-2023 14:24-0400 Body weight 103.[address] [facility] 08-18-2023 14:24-0400 Diastolic blood pressure 81 mm[Hg] [facility] 08-18-2023 14:24-0400 Heart rate 101 /min [facility] 08-18-2023 14:24-0400 Respiratory rate 16 /min [facility] 08-18-2023 14:24-0400 SaO2% (BldA) [Mass fraction] 98 % [facility] 08-18-2023 14:24-0400 Systolic blood pressure 133 mm[Hg] [facility] 04-27-2023 16:30-0500 Body height 160.02 cm Sanaz Lockwood Other [facility] [employer] Other 04-27-2023 16:30-0500 Body mass index (BMI) [Ratio] 40.92 kg/m2 Sanaz Lockwood Other [facility] [employer] Other 04-27-2023 16:30-0500 Body temperature 98.2 [degF] Sanaz Lockwood Other [facility] [employer] Other 04-27-2023 16:30-0500 Body weight 104.78 kg Sanaz Lockwood Other [facility] Other 04-27-2023 16:30-0500 Respiratory rate 18 /min Sanaz Lockwood Other [facility] Other 04-27-2023 16:30-0500 SaO2% (BldA) [Mass fraction] 99 % Sanaz Lockwood Other [facility] Other 05-10-2022 14:45-0500 Body height 160.02 cm Kaylah Han Other [facility] Other 05-10-2022 14:45-0500 Body mass index (BMI) [Ratio] 38.97 kg/m2 Kaylah Lottault Other [facility] Other 05-10-2022 14:45-0500 Body temperature 99.3 [degF] Kaylah Han Other [facility] Other 05-10-2022 14:45-0500 Body weight 99.79 kg Kaylah Han Other [facility] Other 06-29-2019 22:40-0500 Pulse (Heart Rate) 84 /min [facility] 06-29-2019 22:40-0500 Pulse Oximetry 97 % [facility] 06-29-2019 22:35-0500 BP Diastolic 56 mm[Hg] [facility] 06-29-2019 22:35-0500 BP Systolic 100 mm[Hg] [facility] 06-29-2019 21:11-0500 BMI (Body Mass Index) 33.1 kg/m2 [facility] 06-29-2019 21:11-0500 Body Temperature 97.8 [degF] Kimberlyn Xie [facility] 06-29-2019 21:11-0500 Body weight 84.8 kg [facility] 06-29-2019 21:110500 Height 160.02 cm Kimberlyn [facility] 06-29-2019 21:110500 Respiratory Rate 20 /min Kimberlyn [facility] Encounters Encounter Date Encounter Type Care Provider Facility Start: 01-24-2024 End: 01-24-2024 ambulatory MAKENZIE SARAY Not Available Start: 01-03-2024 End: 01-03-2024 ambulatory GUERRERO DUQUE Not Available Start: 12-25-2023 End: 12-25-2023 ambulatory MAKENZIE SARAY Not Available Start: 11-24-2023 End: 11-24-2023 ambulatory MAKENZIE SARAY Not Available Start: 08-18-2023 End: 08-18-2023 ambulatory [facility] Work Phone: Start: 08-18-2023 End: 08-18-2023 Patient encounter procedure [facility] Work Phone: Start: 04-27-2023 End: 04-27-2023 ambulatory Sanaz Lockwood Other [facility] Other Start: 04-27-2023 Office outpatient visit 25 minutes Sanaz Lockwood [facility] Start: 05-10-2022 End: 05-10-2022 ambulatory Kaylah Han Other [facility] Other Start: 05-10-2022 Office outpatient ne w 20 minutes Kaylah Han [facility] Start: 04-27-2022 End: 04-27-2022 ambulatory KIMBERLYN XIE Facility:[facility] Start: 03-07-2022 End: 03-07-2022 ambulatory KIMBERLYN XIE Facility:[facility] Start: 09-23-[address] JAZIEL HILL Facility :[facility] Start: 06-29-2019 End: 06-29-2019 Emergency department patient visit Kimberlyn Xie [facility]Emergency Room Procedures Date Procedure Procedure Detail Performing Clinician Start: 08-18-2023 Quick Strep (POC) Plan of Treatment Date Care Activity Detail Author Patient Education Epinephrine (B y injection) Anaphylaxis (ED) General Allergic Reaction (ED) [facility] Patient referral [facility] Payers Date Payer Category Payer Unknown [id number] 2.16.84 [id number] 1987 Unknown [id number] 2.16.84 [id number] 1987 Unknown [id number] 2.16.84 [id number] 1987 Unknown [id number] 2.16.84 [id number] 1987 Unknown [id number] 2.16.84 [id number] 1987 Unknown [id number] 2.16.84 [id number] 1987 Unknown [id number] 2.16.84 [id number] 1957 Self-pay [id number] 1957 Unknown [id number] Private Health Insurance [id number] Self-pay Self Pay [id number] Social History Date Type Detail Facility Start: 06-29-2019 End: 08-18-2023 Tobacco smoking status NHIS Smoker (finding) [facility] Start: 1985 Sex Assigned At Female F [facility] Sex Assigned At Sex Assigned At Bir th [facility] Other Goals Date Patient Goal Desired Activity [...] condition. Mar, Sore throat (ICD-10 - J02.9) [facility] Other 01-10-2023 Evaluation note* Encounter Date Diagnosis [...] weeks for the cough to go away [facility] Other 11-07-2022 NoteIndication: Abdominal pain. Comparison: None [...] Electronically authenticated by: SURJIT FREITAS Date: 2022-03-07 20:49[facility]11-19-2020 NoteHPI Staff This visit was conducted via phone communications from my office due to the restrictions of the COVID-19 pandemic. No physical exam was conducted due to audio only communication with the patient located at [address] [place] [phone], with no one else. If it is [...] anxiety, # 30 tab(s), Refills(s) 2, Pharmacy: [facility]/pharmacy #[id number], 161, cm, 12/23/19 10:18:00 EDT, Height/Length Dosing, 82, kg, 12/23/19 10:18:00 EDT, Weight Dosing Orders: lurasidone, 20 mg = 1 tab(s), Oral, Daily, with 350 calories; begin this dose first then progress to next dose of 40mg, X 1 week(s), # 7 tab(s), Refills(s) 0, Pharmacy: [facility]/pharmacy #[id number], 161, cm, 12/23/19 10:18:00 EDT, Height/Length Dosing, 82, kg, 12/23/19 10:... lurasidone, 40 mg = 1 tab(s), Oral, Daily, with 350 calories, # 30 tab(s), Refills(s) 1, Pharmacy: [facility]/pharmacy #[id number], 161, cm, 12/23/19 10:18:00 EDT, [...] (generalized anxiety disorder) Hidr (more content not included)...[facility]: Result Comment: Electronically Signed By: Carlota RODRIGUEZ CNP\.br\Date and Time Signed: 03/19/20 14:27 [id number] NoteI Staff This visit was conducted via two-way, real-time interactive video communications from my office using [employer] due to the restrictions of the COVID-19 pandemic. No physical exam was conducted other than those areas of the body visible to telecommunications with the patient located at [address] [place] [phone], with no one else in attendance. If [...] Ordered: TELEHEALTH Office Visit Level 3 Est 06796 General Treatment Plan Maintain medication regimen _Improve [...] Employed, 03/18/2019 Home/Environment Lani (more content not included)...[facility]: Result Comment: Electronically Signed By: Carlota RODRIGUEZ CNP\Date and Time Signed: 03/05/20 13:32 [id number] NoteHPI Staff This visit was conducted via two-way, real-time interactive video communications from my office using [employer] due to the restrictions of the COVID-19 pandemic. No physical exam was conducted other than those areas of the body visible to telecommunications with the patient located at [address] [place] [phone], with no one else in attendance. If [...] anxiety, # 30 tab(s), Refills(s) 1, Pharmacy: [facility]/pharmacy #[id number], 161, cm, 12/23/19 10:18:00 EDT, Height/Length Dosing, 82, kg, 12/23/19 10:18:00 EDT, Weight Dosing alprazolam, 0.5 mg = 1 tab(s), Oral, TID, PRN for anxiety, # 30 tab(s), Refills(s) 1, Pharmacy: [facility]/pharmacy #[id number], 161, cm, 12/23/19 10:18:00 EDT, Height/Length Dosing, 82, kg, 12/23/19 10:18:00 EDT, Weight Dosing aripiprazole, See Instructions, 1.5 tab po qAM, # 30 tab(s), Refills(s) 2, Pharmacy: [facility]/pharmacy #[id number], 161, cm, 12/23/19 10:18:00 EDT, Height/Length Dosing, 82, kg, 12/23/19 10:18:00 EDT, Weight Dosing aripiprazole, See Instructions, 1 tab po qAM, # 30 tab(s), Refills(s) 5, [id number], 161, cm, 12/23/19 10:18:00 EDT, Height/Length Dosing, 82, kg, 12/23/19 10:18:00 EDT, Weight Dosing cyclobenzaprine, 10 mg = 1 tab(s), Oral, TID, PRN for spasm, # 30 tab(s), Refills(s) 1, [id number], 161, cm, 06/13/19 14:39:00 EST, Height/Length Measured, 82, kg, 06/13/19 14:39:00EST, Weight Measured cyclobenzaprine, 10 mg = 1 tab(s), Oral, TID, PRN for spasm, # 30 tab(s), Refills(s) 1, [id number], 161, cm, 12/23/19 10:18:00 EDT, Height/Length Dosing, 82, kg, 12/23/19 10:18:00 EDT, Weight Dosing General Treatment Plan Maintain medication regimen _Improve mood stability _Improve anxiety control _Improve social and interpersonal functioning Clinical Global Impression 62 Prognosis progressing Follow-up With When Contact Information Carlota RODRIGUEZ CNP In 4 weeks Additional Instructions: (more content not included)...[facility] HospitalComment on above:Result Comment: Electronically Signed By: Carlota RODRIGUEZ CNP\.br\Date and Time Signed: 01/27/20 22:35 [id number] NoteI Staff This visit was conducted via two-way, real-time interactive video communications from my office using M[employer] due to the restrictions of the COVID-19 pandemic. No physical exam was conducted other than those areas of the body visible to telecommunications with the patient located at [address] [place] [address], with no one else in attendance. If [...] Ordered: TELEHEALTH Office Visit Level 3 Est 54344 General Treatment Plan Maintain medication regimen _Improve [...] Use:. Never Smokeless Tob (more content not included)...[facility] HospitalComment on above:Result Comment: Electronically Signed By: Carlota RODRIGUEZ CNP\.br\Date and Time Signed: 01/13/20 09:11 [id number] NoteI Staff This visit was conducted via two-way, real-time interactive video communications from my office using [employer] due to the restrictions of the COVID-19 pandemic. No physical exam was conducted other than those areas of the body visible to telecommunications with the patient located at [address] [place] [phone], with no one else in attendance. If [...] 1, [id number], 161, cm, 12/23/19 10:18:00 EDT, Height/Length Dosing, 82, kg, 12/23/19 10:18:00 EDT, Weight Dosing alprazolam, 0.5 mg = 1 tab(s), Oral, TID, PRN for anxiety, # 30 tab(s), Refills(s) 1, [id number], 161, cm, 06/13/19 14:39:00 EST, Height/Length Measured, 82, kg, 06/13/19 14:39:00 EST, Weight Measured aripiprazole, See Instructions, 1 tab po qAM, # 30 tab(s), Refills(s) 0, [id number], 161, cm, 12/23/19 10:18:00 EDT, [...] Allergies Bactrim Social History (more content not included)...[facility] HospitalComment on above:Result Comment: Electronically Signed By: Carlota RODRIGUEZ CNP\harshil\Date and Time Signed: 12/23/19 16:37 [id number] NoteHPI Staff This visit was conducted via two-way, real-time interactive video communications from my office using [employer] due to the restrictions of the COVID-19 pandemic. No physical exam was conducted other than those areas of the body visible to telecommunications with the patient located at [address] [place] [address], with no one else in attendance. If [...] q24hr, # 30 tab(s), Refills(s) 2, Pharmacy: [facility]/pharmacy #[id number],161, cm, 06/13/19 14:39:00 EST, Height/Length Measured, 82, kg, 06/13/19 14:39:00 EST, Weight Measured cyclobenzaprine, 10 mg = 1 tab(s), Oral, TID, PRN for spasm, # 30 tab(s), Refills(s) 1, Pharmacy: [facility]/pharmacy #[id number], 161, cm, 06/13/19 14:39:00 EST, [...] Employment/School Employed, 03/18/2019 Home/Environment (more content not included)...[facility] Hospital[facility] on above:Result Comment: Electronically Signed By: Carlota RODRIGUEZ CNP\.br\Date and Time Signed: 12/02/19 16:38 EDTChief complaint+Reason for visit Narrative* Chief Complaint Nausea, diarrhea, fe zhou Reason for Visit Contact with and (louis spected) exposure to covid-19 Sore throat [facility] Work Phone: Evaluation note* Diagnosis Onset Date Resolution Status Contact with and (suspected) exposure to covid-19 noneactive Sore throat noneactive [facility] Work Phone: History general Narrative - Reported* Type Description Date Medical History Bipolar Surgical History appendectomy Surgical History x 3 Hospitalization History see above surgical histo ry [facility] [employer] Other Advance Directives No Advanced Directives Records [...] may need to be seen by an heater engineer helper if you have other events like this without definite egg exposure. Summary Purpose Family History No Family History Records Found Relationship Condition Age at Onset Recorded Date/T alo father Diabetes mellitus Unknown Hypertension Unknown Additional Source Comments INFORMATION SOURCE (unrecogn ized section and content) DATE CREATED AUTHOR 10/30/2020 [facility] DATE CREATED AUTHOR AUTHOR'S ORGANIZ ATION 04/29/2022 [facility] DATE CREATED AUTHOR AUTHOR'S ORGANIZ ATION 01/26/2024 [facility] EPIC REASON FOR VISIT (unrecogniz ed [...] BE BASED ON THE PRIMARY CLINICAL RECORDS. [facility] provides no warranty or guarantee of the accuracy or completeness of information in this document.
[2024-02-06 16:15] VITALS: BP 145/76; PULSE 121; TEMP 38.1
[2024-02-06 16:29] LABS: Bilirubin Urine NEGATIVE (NEGATIVE); Blood Urine MODERATE (NEGATIVE); Glucose Urine UA NEGATIVE (NEGATIVE); Ketones Urine NEGATIVE (NEGATIVE); Leukocyte Esterase Urine MODERATE (NEGATIVE); Nitrite Urine POSITIVE (NEGATIVE); Protein Urine 100 mg/dL (NEG/TRACE)
[2024-02-06 16:31] LABS: Clarity Urine SLIGHTLY CLOUDY (CLEAR); Color Urine DK YELLOW (YELLOW); Urine Microscopic Indicated YES
[2024-02-06 16:36] LABS: Bacteria Urine MODERATE #/HPF (NONE SEEN); Cast Seen? NONE SEEN #/LPF (NONE SEEN); Crystals Seen? None Seen #/HPF (None Seen); Mucus Urine NONE SEEN (NONE SEEN); RBC Urine 20-50 #/HPF (0-2); Squamous Epithelial Cell Urine FEW #/LPF (NONE/RARE); Urine Culture Indicated YES; WBC Urine 20-50 #/HPF (NONE SEEN)
--- NOTE | 2024-02-06 17:00 | PC.NURSE ---
1700 Plan of care/orders discussed with pt. Pt moved to room 251. Pain remains 7/10 to back and radiates to low abdomen. No further vomiting, pt tolerated popsicle.
--- NOTE | 2024-02-06 17:30 | PC.NURSE ---
1730 IV to RAC initiated. CBC drawn.
[2024-02-06] MEDS: LACTATED RINGER'S SOLUTION 1,000 ML 125 ML IV ×2 (17:31→22:34)
[2024-02-06] MEDS: NALBUPHINE HCL 10 MG/ML AMPULE IV ×2 (17:34→21:34)
[2024-02-06] MEDS: ACETAMINOPHEN 325 MG TABLET 650 MG PO (17:34)
[2024-02-06 17:45] VITALS: TEMP 37.7
[2024-02-06 17:51] LABS: Hematocrit 36.9 % (36.0-48.0); Hemoglobin 12.1 g/dL (12.0-16.0); Mean Corpuscular HGB Conc 32.8 g/dL (29.9-35.2); Mean Corpuscular Hemoglobin 30.3 pg (26.7-34.0); Mean Corpuscular Volume 92.5 fL (81.0-99.0); Mean Platelet Volume 10.5 fL (9.5-13.5); Platelet Count 309 10^3/uL (150-450); Red Blood Count 3.99 10^6/uL (4.20-5.40); Red Cell Distribution Width 13.4 % (11.0-15.0); White Blood Count 11.5 10^3/uL (4.0-11.0)
--- NOTE | 2024-02-06 17:55 | PC.NURSE ---
1754 Pain to back and abdomen /10 much better just kind of achy right now
--- NOTE | 2024-02-06 18:01 | PC.NURSE ---
1800 notified of CBC results and that pain is much improved with nubain.
[2024-02-06] MEDS: CEFAZOLIN SODIUM/DEXTROSE,ISO 1 GM/50 ML PREMIX IV (18:06)
[2024-02-06 18:13] LABS: Segmented Neut Absolute Manual 8.85 10^3/uL (1.4-6.5)
--- NOTE | 2024-02-06 18:43 | PC.NURSE ---
1843 sleeping on Rt side.
--- NOTE | 2024-02-06 19:01 | PC.NURSE ---
Eating meal. Care relinquished to Vijay BILLINGS
[2024-02-06 19:47] VITALS: BP 114/61; PULSE 96
[2024-02-07] VITALS (17 sets, daily range): BP systolic 97–118; BP diastolic 54–71; PULSE 91–121; TEMP 36.5–39.4
[2024-02-07] MEDS: CEFAZOLIN SODIUM/DEXTROSE,ISO 1 GM/50 ML PREMIX IV ×3 (00:40→11:26)
[2024-02-07] MEDS: ACETAMINOPHEN 325 MG TABLET 650 MG PO ×3 (00:49→18:10)
[2024-02-07] MEDS: LACTATED RINGER'S SOLUTION 1,000 ML 125 ML IV ×3 (08:00→20:28)
--- NOTE | 2024-02-07 08:00 | US_ITS ---
The [address] [address] Patient Name: PROSPER RUIZ MRN: [id number] date: 1985 Sex: F Assigned Patient Location: ED.MAIN Current Patient Location: [facility] Accession/Order Number: [id number] Exam Date: 02/07/2024 08:05 Report Date: 02/07/2024 14:06 At the request of: MARTIN RILEY Procedure: US renal BI EXAMINATION: US renal BI HISTORY: UTI, r/o kidney stone [; bilateral thigh pain COMPARISON: CT abdomen pelvis 04/27/2022 TECHNIQUE: Ultrasound examination was performed of the kidneys and urinary bladder. FINDINGS: RIGHT KIDNEY: Mildly dilated renal pelvis without dilated calyces. No appreciable mass or stones. Normal parenchymal echogenicity. Color Doppler demonstrates blood flow within the kidney. Kidney: 13.0 x 6.3 x 5.1 cm LEFT KIDNEY: No evidence of pelvocaliectasis, mass, or calculi. Normal parenchymal echogenicity. Color Doppler demonstrates blood flow within the kidney. Kidney: 12.8 x 5.2 x 5.0 cm BLADDER: No visible wall thickening, mass, or calculi. US/US renal BI IMPRESSION: 1. Slight prominent extrarenal pelvis of the right kidney versus mild hydronephrosis. Hydronephrosis is felt less likely. 2. No appreciable urinary tract calculi. Electronically authenticated by: CYNDI SOLIS Date: 02/07/2024 14:06
[2024-02-07] MEDS: ONDANSETRON PF 4 MG/2 ML VIAL 8 MG IV (11:16)
[2024-02-07] MEDS: NALBUPHINE HCL 10 MG/ML AMPULE 20 MG IM (11:19)
[2024-02-07 12:01] LABS: Influenza Virus A Antigen Negative; Influenza Virus B Antigen Negative; Internal Control Within Normal Limits
--- NOTE | 2024-02-07 12:33 | PM.OBPN ---
OB - PN: Subj Subjective Interval history: PRESENTED TO [facility] AT 20 WEEKS FROM ED. HAD TEMP 100.1, BACK PAIN, PAIN ABOVE THE SUPRA PUBIC BONE, (DISTRIBUTION OF BLADDER). HAS ZOFRAN PUMP FOR NAUSEA NOT COMPLETELY EFFECTIVE. IS PRESENTLY NAUSEATED AND FEELS POORLY. FH TONES 150. Narrative: PLEASE DISREGARD THIS PROGRESS NOT PATIENT HAS BEEN CHANGED FROM OBSERVATION STATUS TO INPATIENT STATUS. A HISTORY AND PHYSICAL NOTE HAS BEEN COMPLETED INSTEAD OF THIS PROGRESS NOTE. Exam Narrative Exam Narrative: FEELS POORLY. NAUSEATED. GENERALIZED DISCOMFORT. FEBRILE Constitutional Vital Signs, click to edit/add: Last Vital Signs Temp 99.6 F 02/07/24 09:00 Pulse 102 H 02/07/24 11:55 Resp 18 02/07/24 09:00 BP 101/59 02/07/24 11:55 O2 Del Method Room Air 02/07/24 10:48 Common normals: oriented x3 General appearance: cooperative Results Labs Labs: Short CBC 02/06/24 Range/Units 17:30 WBC 11.5 H (4.0-11.0) 10^3/uL Hgb 12.1 (12.0-16.0) g/dL Hct 36.9 (36.0-48.0) % Plt Count 309 (150-450) 10^3/uL Urine 02/06/24 Range/Units 16:15 Urine Color Dk yellow (YELLOW) Urine Clarity Slightly cloudy A (CLEAR) Urine pH 6.0 (5.0-9.0) Ur Specific [place] 1.020 (1.005-1.025) Urine Protein 100 A (NEG/TRACE) mg/dL Urine Glucose (UA) Negative (NEGATIVE) mg/dL OB - PN: A/P Time Spent with Patient Time: Total time spent is greater than 50% in coordination of care (as documented) at patient's floor/unit and/or counseling patient: Total time spent with greater than 50% in coordination of care (as documented) at patient's floor/unit and/or counseling patient: less than 15 minutes
--- NOTE | 2024-02-07 12:40 | PM.OBHP ---
OB - H&P: HPI History of Present Illness Chief complaint: Back pain Chills Cramping 5 weeks preg Date of last menstrual period: RECORDS FROM OFFICE PENDING Gestational age based on last menstrual period: 20 WEEKS PER PATIENT, RECORDS PENDING Comments: PATIENT WENT TO ED FOR TEMP, NAUSEA, BACK PAIN, LOW PEVIC PAIN. SENT TO [facility] FOR EVALUATION. HAS SEVERE UTI PROBABLE PYELONEPHRITIS. URINE CULTURE POSITIVE FOR GRAM NEG RODS AND KLEBSIELLA. THE TEMPERATURE ON ADMISSION WAS 100.1 AND NOW 99 AFTER TYLENOL. THE ZOFRAN PUMP IS NOW EMPTY AND SHE HAS BEEN STARTED ON PHENERGAN ZOFRAN INEFFECTIVE. HEART TONES ARE 150. THERE WERE NO KETONES ON URINE SAMPLE BUT PROTEIN, BACTERIA AND BLOOD PRESENT. AN ULTRASOUND THIS AM DID NOT VISUALIZE STONES BUT RIGHT HYDRONEPHROSIS WHICH IS TYPICALLY SEEN IN DUE TO UTERINE DEXTROROTATION. History of Present care: good care Abnormal ultrasound findings: AWAITING RECORDS FROM OFFICE Medical complications OB: genitourinary Narrative: PYELONEPHRITIS Review of Systems ROS Constitutional: Reports: fever, fatigue and malaise Cardiovascular: Reports: other (TACHYCARDIA) Genitourinary: Reports: other (SUPRAPUBIC PAIN, BILATERAL BACK PAIN C/W PYELONEPHRITIS) Musculoskeletal: Reports: back pain PFSH [facility] Medical History (Updated 02/07/24 @ 13:04 by Xenia Hebert MD) Bipolar affect, depressed ?F31.30 - Bipolar disorder, current episode depressed, mild or moderate severity, unspecified (ICD-10) Hyperemesis affecting , antepartum ?O21.0 - Mild hyperemesis gravidarum (ICD-10) Surgical History (Updated 02/06/24 @ 16:48 by Bettie Dc RN) deliv NOS-unsp Social History Little interest or pleasure in doing things: not at all Feeling down, depressed, or hopeless: not at all Meds Home Medications and Allergies Home Medications ?Medication ?Instructions ?Recorded ?Confirmed ?Type amoxicillin 875 mg-potassium 1 tab PO BID #14 tabs 12/29/23 Rx clavulanate 125 mg tablet clotrimazole 1 % vaginal cream 1 appful vaginal BEDTIME 7 days 12/29/23 Rx (Clotrimazole-7) #45 grams Allergies Allergy/AdvReac Type Severity Reaction Status Date / Time sulfamethoxazole Allergy Hives Verified 02/06/24 15:58 [From Bactrim] trimethoprim [From Bactrim] Allergy Hives Verified 02/06/24 15:58 Exam Narrative Exam Narrative: FEELS MISERABLE: Constitutional Vital Signs, click to edit/add: Last Vital Signs Temp 99.6 F 02/07/24 09:00 Pulse 102 H 02/07/24 11:55 Resp 18 02/07/24 09:00 BP 101/59 02/07/24 11:55 O2 Del Method Room Air 02/07/24 10:48 Documenting provider has reviewed patient's vital signs: yes Common normals: oriented x3 and no limitations General appearance: cooperative and ill appearing Nutritional appearance: overweight Orientation/consciousness: Yes oriented to person, Yes oriented to place and Yes oriented to time HENMT Common normals: normocephalic and head/scalp atraumatic Eye Common normals: PERRL Pupil: accommodation reflex normal Neck & C-Spine Common normals: full ROM, no lymphadenopathy, supple and no meningeal signs Respiratory Common normals: normal respiratory effort and no use of accessory muscles Effort & inspection: able to speak in complete sentences Auscultation: clear to auscultation bilaterally Cardio Common normals: regular rate and regular rhythm GI Common normals: Normal to inspection, nondistended, normoactive bowel sounds present, soft to palpation, non-tender and no masses Common normals: no CVA tenderness Bladder/kidney exam: bladder abnormal to palpation (TENDER) Back & Pelvis Lumbar spine/lower back: normal to inspection (BILATERAL BACK PAIN OVER DISTRIBUTION OF URETERS) Extremity Common normals: normal to inspection, full ROM and no calf tenderness Neuro Common normals: CN's II-XII intact bilaterally, moves all extremities, no focal motor deficits and no sensory deficits noted Motor exam: strength 5/5 throughout Psych Common normals: mental status grossly normal, thought process normal, cooperative and affect normal Appearance: grossly normal Attitude: calm Results Labs Labs: Short CBC 02/06/24 Range/Units 17:30 WBC 11.5 H (4.0-11.0) 10^3/uL Hgb 12.1 (12.0-16.0) g/dL Hct 36.9 (36.0-48.0) % Plt Count 309 (150-450) 10^3/uL Urine 02/06/24 Range/Units 16:15 Urine Color Dk yellow (YELLOW) Urine Clarity Slightly cloudy A (CLEAR) Urine pH 6.0 (5.0-9.0) Ur Specific [place] 1.020 (1.005-1.025) Urine Protein 100 A (NEG/TRACE) mg/dL Urine Glucose (UA) Negative (NEGATIVE) mg/dL OB - A/P Assessment and Plan (1) Pyelonephritis affecting : Assessment and Plan: TREATING WITH ZOSYN FOR GRAM NEGATIVE RODS AND KLEBSIELLA, TREATING FEVER WITH TYLENOL AND IVF, TREATING NAUSEA AND VOMITING WITH PHENERGAN, (ZOFRAN INEFFECTIVE), RECEIVING NUBAIN IM 20 MG FOR PAIN Qualifiers: Trimester: second trimester Qualified Code(s): O23.02 - Infections of kidney in , second trimester (2) Leukopenia: Assessment and Plan: C/W FLU, FLU SWAB DONE FOR A AND B (RAPID RESULT, ALSO DID RAPID COVID TEST Qualifiers: Leukopenia type: lymphocytopenia Qualified Code(s): D72.810 - Lymphocytopenia (3) Abnormal CBC: Onset Date: ~01/2024 Assessment and Plan: SERIAL CBC DAILY TO WATCH FOR RESOLUTION OF LYMPHOCYTES AND SEGMENTED CELLS TO NORMAL (4) : Assessment and Plan: HEART TONES NORMAL, HAS RECEIVED GOOD PNC, AWAITING RECORDS FROM OFFICE, WILL MONITOR HEART TONES QS AND STRIVE FOR AFEBRILE MATERNAL STATE AND ADEQUATE HYDRATION Qualifiers: Weeks of gestation: 20 weeks Qualified Code(s): Z3A.20 - 20 weeks gestation of Plan ABOVE
[2024-02-07 14:44] LABS: Estimated GFR (African America >60 (>=60 mL/min/1.73m^2); Estimated GFR (Non-African Ame >60 (>=60 mL/min/1.73m^2)
[2024-02-07 14:46] LABS: Internal Control Within Normal Limits; SARS-CoV-2 Ag NEGATIVE (NEGATIVE)
[2024-02-07] MEDS: PIPERACILLIN SODIUM/TAZOBACTAM 3.375 GM in 0.9 % SODIUM CHLORIDE 50 ML IV ×2 (15:15→22:44)
[2024-02-07 20:41] LABS: Amnisure NEGATIVE (NEGATIVE); Internal Control Within Normal Limits
[2024-02-07] MEDS: PROMETHAZINE HCL 25 MG in 0.9 % SODIUM CHLORIDE 50 ML 204 MG IV (21:01)
[2024-02-07] MEDS: ACETAMINOPHEN 500 MG TABLET 1000 MG PO (23:53)
--- NOTE | 2024-02-08 09:38 | P.DS_ITS ---
Transfer Discharge Sum: Prov Provider Date of admission: 02/07/24 12:41 Primary care physician: RADHA XIE Admitting clinician: Xenia Hebert Attending physician on discharge: Xenia Hebert Anticipated date of transfer: 02/07/24 Receiving physician/facility: DR. TAMIA FUNG AT [facility]. DS: Diagnosis Discharge Diagnosis (1) Pyelonephritis affecting : Assessment and plan: ON ZOSYN, DOSE CALCULATED BY PHARMACY Q 8 HOURS IV. RENAL ULTRTASOUND NOT DEMONSTRATING ANY STONES IN URETER. INTERMITTENT FEVERS NOT TOTALLY TREATED WITH TYLENOL. PATIENT REMAINS TACHYCARDIC AND FH WELL WHEN MATERNAL T EMPERATURE SPIKES. PATIENT STATES SHE FEELS VERY BADLY , COMPLAINS OF GENERALIZED BACK PAIN AND SUPRAPUBIC PAIN. THE ZOFRAN PUMP IS NOW EMPTY HOWEVER IT WAS NOT EFFECTIVE. THE PATIENT WAS STARTED ON PHENERGAN WHICH APPEARS TO BE MORE EFFECTIVE THAN ZOFRAN. PATIENT HAS NO APPETITE AND PRESENTLY IS NOT VOMITING. Qualifiers: Trimester: second trimester Qualified Code(s): O23.02 - Infections of kidney in , second trimester (2) Leukopenia: Assessment and plan: SWABS FOR INFLUENZA A AND B BOTH NEGATIVE. Qualifiers: Leukopenia type: lymphocytopenia Qualified Code(s): D72.810 - Lymphocytopenia (3) Abnormal CBC: Onset Date: ~01/2024 Assessment and plan: SWAB FOR COVID NEGATIVE. WBC NOT ELEVATED BUT DOES HAVE NEUTROPENIA/LEFT SHIFT (4) : Assessment and plan: AMNISURE NEGATIVE. NO EVIDENCE OF RUPTURE TO PATIENT OR STAFF. CERVIX CLOSED. NO CONTRACVTIONS. PATIENT IS DATED BY A TEN WEEK ULTRASOUND AND IS 21 WEEKS GESTATION. SHE HAS RECEIVED GOOD CARE. SHE IS A , TWO TERM PREGNANCIES, TWO DELIVERIES AND ONE AB. SHE HAS A PMH OF TYPE 1 BIPOLAR DISEASE AND IS ON EFFEXOR 37.5 MG, (WHICH TYPICALLY IS JUST A STARTING DOSE FOR THIS MEDICATION). HER GALLBLADDER AND APPENDIX HAS BEEN REMOVED. SHE IS AMA AT 38. Qualifiers: Weeks of gestation: 20 weeks Qualified Code(s): Z3A.20 - 20 weeks gestation of Plan THIS MULTIP AT 21 WEEKS GESTATION WITH PYELONEPHRITIS IS GROWING GRAM NEGATIVE RODS AND KLEBSIELLA IN HER URINE. THE PERSISTENT INTERMITTENT FEVERS A/W MATERNAL AND TACHYCARDIA ARE CONCERNING FOR SEPSIS. THIS POTENTIAL DEVELOPMENT IS LIFE THREATENING AND THIS PATIENT NEEDS TO BE TRANSFERRED TO A TERTIARY CARE FACILITY WHICH CAN PROVIDE A HIGHER LEVEL OF CARE. THIS CASE WAS DISCUSSED WITH KENTON GALEANA, FROM [facility] AND SHE AGREED TO ACCEPT THIS PATIENT TO [facility]. THIS PATIENT'S OFFICE CHART AND [facility] CHART WERE COPIED AND SENT WITH PATIENT TO [facility]. ALL TRANSFER FORMS WERE FILLED OUT. [facility] TRANSFER WAS CALLED TO ARRANGE THE TRANSFER. THEY ANTICIPATED ARRIVING ON [facility] AT [place] TO RF TEST TECHNICIAN THE PATIENT AT 10 PM. THE INDICATIONS FOR TRANSFER WERE EXPLAINED TO THIS PATIENT AND ALL QUESTIONS WERE ADDRESSED. SHE STATED UNDERSTANDING. Transfer Discharge Sum: Med Medications Active and Home Medications: Home Medications amoxicillin 875 mg-potassium clavulanate 125 mg tablet 1 tab PO BID #14 tabs 12/29/23 [Rx] clotrimazole 1 % vaginal cream (Clotrimazole-7) 1 appful vaginal BEDTIME 7 days #45 grams 12/29/23 [Rx] Transfer Discharge Sum: Hosp Hospital Course Hospital course: PATIENT CONDITION NOT EXPEDITIOUSLY IMPROVED WITH IVF, ANTIBIOTIC, AND PHENERGAN. DUE TO THE INTERMITTENT SPIKES IN MATERNAL TEMPERATURE A/W MATERNAL AND TACHYCARDIA, THE CONCERN AROSE FOR THE POSSIBILITY OF SEPSIS FROM PYELONEPHRITIS. [facility] IS NOT EQUIPPED TO APPROPRIATELY TREAT A PRENGNANT PATIENT WITH SEPSIS SHOULD IT DEVELOP AND THE DECISION WAS MADE TO TRANSFER THIS PATIENT TO A HIGHER LEVEL FACILITY WHO CAN MEET HER MEDICAL NEEDS Status at Discharge Cognitive capacity at transfer: INTACT Functional capacity at transfer: independent ambulation Overall status at transfer: patient is not back to baseline Time Spent with Patient Time attestation: Total time spent providing and/or coordinating transfer services: Total time spent: less than 30 minutes Exam Narrative: Exam Narrative: PATIENT STATES SHEE 'FEELS HORRIBLE. THE NAUSEA IS IMPROVED ON PHENERGAN THE ZOFRAN WAS NOT EFFECTIVE, (PATIENT HAD A ZOFRAN PUMP WHICH BECAME EMPTY DURING DAY AND TURNED OFF). SHE HAS NO APPETITE, IS VOIDING, IS NOT VOMITING AND THE AMNIOTIC SAC IS NOT RUPTURED. THE RENAL ULTRASOUND DEMONSTRATED NO OBVIOUS STONES IN EITHER URETER. Constitutional: Vital Signs, click to edit/add: Last Vital Signs Temp 102.5 F H 02/07/24 23:53 Pulse 116 H 02/07/24 23:46 Resp 20 02/07/24 23:47 BP 107/71 02/07/24 23:46 O2 Del Method Room Air 02/07/24 23:47 Documenting provider has reviewed patient's vital signs: yes Common normals: oriented x3 General appearance: cooperative, in distress and ill appearing Nutritional appearance: overweight Orientation/consciousness: Yes awake, Yes oriented to person, Yes oriented to place and Yes oriented to time HENMT: Common normals: normocephalic and head/scalp atraumatic Face and sinus: sinuses nontender Eye: Common normals: PERRL and conjunctivae normal Pupil: accommodation reflex normal Neck & C-Spine: Common normals: full ROM, supple and no meningeal signs Respiratory: Common normals: normal respiratory effort and clear to auscultation bilaterally Cardio: Common normals: regular rate and regular rhythm Rate: tachycardic GI: Common normals: Normal to inspection, nondistended, normoactive bowel sounds present, soft to palpation and non-tender (TENDER OVER SUPRAPUBIC AREA) Auscultation: normoactive bowel sounds : Common normals: no CVA tenderness (DOES HAVE GENERALIZED BACK PAIN ALONG THE DISTRIBUTION OF THE BOTH URETERS) External Female Exam: normal appearance of the urethra Speculum exam - cervix: cervical os closed Bimanual exam- vagina & uterus: uterus enlarged (APPROPRIATELY ENLARGED FOR A 21 WEEK GESTATION) Back & Pelvis: General back: tenderness (ALONG DISTRIBUTION OF BOTH URETERS) Extremity: Common normals: normal to inspection, full ROM and no calf tenderness Neuro: Common normals: CN's II-XII intact bilaterally, moves all extremities, no focal motor deficits and no sensory deficits noted Sensorium/orientation: awake, alert, oriented to person, oriented to place and oriented to time Motor exam: strength 5/5 throughout Psych: Common normals: mental status grossly normal, thought process normal, cooperative, affect normal and speech normal Appearance: grossly normal and well kempt Attitude: calm Activity/motor behavior: appropriate eye contact Speech: normal speech Mood and affect: euthymic mood Thought process: normal thought process Transfer Discharge Sum: Data Data Completed and Pending Completed studies during hospitalization: THE COMPLETE HOSPITAL CHART ALONG WITH LAB RESULTS, ULTRASOUND RESULTS, PHYSICIAN NOTES AND NURSING NOTES WERE COPIED AND SENT WITH PATIENT TO [facility]. THE OFFICE CHART WAS COPIED WELL AND SENT TO [facility]. Discharge Plan Discharge Disposition: [facility] Condition: Fair Assessment: PATIENT REQUIRES CARE AT A HOSPITAL THAT CAN PROVIDE HER WITH A HIGHER LEVEL OF CARE THAN [facility] SHOULD THAT BE REQUIRED, (IE PATIENT DEVELOPS SEPSIS). Activity Restrictions/Additional Instructions: PATIENT TO BE TRANSFERED BY AMBULENCE TO [facility]. ANTICIPATE ACTIVITY WILL BE UP AD MARGOTH IT IS HERE Discharge Date/Time: 02/08/24 00:15 Discharge Location: [facility]
== END 2024-02-08 00:15 | disposition short-term general hospital (02) | DRG 833 ==
PROVIDERS: Admitting Provider Obstetrics & Gynecology; PCP Nurse Practitioner Family; Visit Provider Obstetrics & Gynecology
DX: O23.02 Infections of kidney in pregnancy, second trimester (principal); O26.892 Other specified pregnancy related conditions, second trimester; D72.810 Lymphocytopenia; R79.89 Other specified abnormal findings of blood chemistry; Z20.822 Contact with and (suspected) exposure to COVID-19; R50.9 Fever, unspecified; O36.8320 Maternal care for abnormalities of the fetal heart rate or rhythm, second trimester, not applicable or unspecified; Z3A.21 21 weeks gestation of pregnancy; O09.522 Supervision of elderly multigravida, second trimester; O99.342 Other mental disorders complicating pregnancy, second trimester; F31.9 Bipolar disorder, unspecified; Z90.49 Acquired absence of other specified parts of digestive tract
CPT/HCPCS: 36415; 76775; 81001; 82565; 84112; 85007; 85027; 87086; 87150; 87186; 87804; 87811; J0690; J2250; J2300; J2405; J2543

== ENCOUNTER 2024-02-14 11:21 | Observation (INO) | payer BC, SELFPAY ==
[2024-02-14 11:39] VITALS: BP 113/60; PULSE 86
--- NOTE | 2024-02-14 11:40 | US_ITS ---
[address] [address] Patient Name: PROSPER RUIZ MRN: [id number] date: 1985 Sex: F Assigned Patient Location: [facility] Current Patient Location: [facility] Accession/Order Number: [id number] Exam Date: 02/14/2024 11:41 Report Date: 02/14/2024 12:25 At the request of: MAKENZIE SO Procedure: US OB limited EXAMINATION: US OB limited HISTORY: decreased movement COMPARISON: No relevant comparison available. FINDINGS: position: Cephalic presentation, longitudinal lie Heart rate: 136 beats minute Clinical age: 21 weeks 1 day Clinical LISA: 06/25/2024 US/US OB limited IMPRESSION: Viable intrauterine gestation Electronically authenticated by: [employer] [place]TER[place] Date: 02/14/2024 12:25
--- NOTE | 2024-02-14 11:43 | PC.NURSE ---
pt states hasn't felt movement in 2 days-was in [place] last week for urosepsis and continues on abx.
--- OUTSIDE RECORDS SUMMARY | 2024-02-14 11:44 | XMS_ITS | CCD ---
Author Organization [facility] InformFormerly [facility] Care Team Providers Care Senior Materials Scientist Name Role Phone Kimberlyn Xie Primary Care [...] Consulting Unavailable DR JAZIEL HILL Admitting Unavailable DR JAZIEL HILL Attending Unavailable KIMBERLYN XIE Primary Care Unavailable Kaylah Han Unavailable Sanaz Lockwood Unavailable MAKENZIE SO Attending Unavailable GUERRERO DUQUE Attending Unavailable MAKENZIE SO Attending Unavailable NATO LLOYD. Admitting Unavailable NATO LLOYD. Attending Unavailable PHYSICIAN, UNKNOWN Referring Unavailable NO PCP, NO PCP Primary Care Unavailable JOSSELINE DONOVAN Consulting Unavailable TEJ ZENG Referring Unavailable NO PCP, NO PCP Primary Care Unavailable Unavailable Unavailable Unavailable Allergies Allergy Classification Reported Allergen(s) Allergy Type Date of Onset Reaction(s) Facility (2 sources) egg extract Drug Allergy 08-18-19 24 Vomiting [facility] (3 sources) Sulfamethoxazole; 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: [SULFAMETHOXAZOLE] Drug Allergy 08-18-19 Unknown Reaction, Unknown Reaction, [facility] (3 sources) Trimethoprim; 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: [TRIMETHOPRIM] Drug Allergy 08-18-19 Unknown Reaction, Unknown Reaction, [facility] (2 sources) Fish Containing Products Propensity to adverse reactions 08-18-19 Difficulty Breathing [facility] (1 source) Sulfamethoxazole / Trimethoprim Drug Allergy 02-04-20 13 [facility] (2 sources) Sulfamethoxazole / Trimethoprim Drug Allergy hives [employer] Other Medications Current Medications Medication Drug Class(es) Dates Sig (Normalized) Sig (Original) [id number] 200 actuat albuterol 0.09 mg/actuat metered dose [...] oral tablet (1 source) alpha-Adrenergic Agonist, Uncompetitive H-hkvzqi-D-asparta te Receptor Antagonist, Sigma-1 Agonist Start: 04-27-2023 take 4 tablets by mouth every twenty-four hours as needed Capmist DM 60-15-400 MG as needed Orally every 4-6 hours as needed, max 4 tablets in 24 hours for 5 days Mar, Active [id number] 0.3 ml EPINEPHrine 1 mg/ml auto-injector (2 [...] 03-09-2022 Episodic Other aftercare (1 source) Other superintendent terminal (current) drug therapy; 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: [OTH INFANT NANNY CURRENT DRUG THERAPY] Onset: 04-29-2022 Episodic Other complications of (1 source) Obesity complicating , unspecified trimester; 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: [Obesity complicating , unspecified trimester] Onset: 02-08-2024 Chronic Other complications of (1 source) Supervision of other high risk pregnancies, unspecified trimester; 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: [Supervision of other high risk pregnancies, unspecified trimester] Onset: 02-08-2024 Episodic Other complications of (1 source) Supervision of high risk , unspecified, unspecified trimester; 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: [Supervision of high risk , unspecified, unspecified trimester] Onset: 02-08-2024 Episodic Other complications of (1 source) Infections of kidney in , unspecified trimester; 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: [Infections of kidney in , unspecified trimester] Onset: 02-08-2024 Episodic Other gastrointestinal disorders (1 source) Diarrhea, [...] BMI 38.0-38.9 ADULT] Onset: 03-09-2022 Chronic Other screening for suspected conditions (not mental disorders or infectious disease) (2 sources) Encounter for other specified screening; 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: [Encounter for screening for cervical length] Onset: 02-08-2024 Episodic Other upper respiratory infections (3 sources) Acute upper respiratory infection, unspecified; 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: [Acute pharyngitis, unspecified] Episodic Previous (1 source) Maternal care for unspecified type scar from previous delivery; 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: [Maternal care for unspecified type scar from previous delivery] Onset: 02-08-2024 Episodic Residual codes; unclassified (1 source) Acquired absence of other specified parts of digestive tract; 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: [ACQ ABSENCE OTH PART DIGESTV TRACT] Onset: 04-29-2022 Episodic Substance-related disorders (1 source) Nicotine dependence, cigarettes, uncomplicated; 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: [NICOTINE DEPEND CIGARETTES UNCOMP] Onset: 04-29-2022 Chronic Unclassified (1 source) PERSONAL HISTORY OF COVID-19; 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: [PERSONAL HISTORY OF COVID-19] Onset: 04-29-2022 Unclassified (1 source) transport Onset: 02-08-2024 Urinary tract infections (1 source) Pyelonephritis Onset: 02-08-2024 Episodic Past or Other Problems Problem Classification Problem Date Documented Da te Episodic/Chronic Unclassified (1 source) Suspected COVID-19 virus infection Z20.822 Results Test Name Value Interpretation Reference Range Facility CBC AND AUTO DIFFon 02-09-20 ABSOLUTE BASOPHIL 0.0 X10E9/L Normal 0.0-0.2 [facility] Comment on above: Performed By: #### C EARLE CMP, 85399-3 #### [facility] ([id number]) [address], [facility] [address] [place] [address] ABSOLUTE NEUTROPHIL 5.4 X10E9/L Normal 1.5-6.6 [facility] Comment on above: Performed By: #### Tori OG, CMP, 91588-9 #### [facility] ([id number]) [address], [address] [address] Basophils/100 WBC (Bld) 0.2 % Normal [facility] Comment on above: Performed By: #### Tori BCA, CMP, 13999-7 #### [facility] ([id number]) [address] [address] [place] [address] Eosinophils (Bld) [#/Vol] 0.1 10*3/uL Normal 0.0-0.4 [facility] Comment on above: Performed By: #### C BCA, CMP, 85687-9 #### [facility] ([id number]) [address], [address] [address] Eosinophils/100 WBC (Bld) 0.9 % Normal [facility] Comment on above: Performed By: #### C BCA, CMP, 06950-9 #### [facility] ([id number]) [address], [address] [place] [address] Erythrocyte distribution width (RBC) [Ratio] 14.3 % Normal 11.5-15.0 [facility] Comment on above: Performed By: #### Tori OG CMP, 26181-7 #### [facility] ([id number]) [address], [facility] [address] [place] [address] Hematocrit (Bld) [Volume fraction] 30.3 % Low 35-47 [facility] Comment on above: Performed By: #### Tori OG CMP, 60870-5 #### [facility] ([id number]) [address], [facility] [address] [place] [address] Hemoglobin (Bld) [Mass/Vol] 10.3 g/dL Low 11.7-15.5 [facility] Comment on above: Performed By: #### Tori OG CMP, 58837-3 #### [facility] ([id number]) [address], [facility] [address] [place] [address] Lymphocytes (Bld) [#/Vol] 1.7 10*3/uL Normal 1.0-3.5 [facility] Comment on above: Performed By: #### Tori OG CMP, 93772-3 #### [facility] ([id number]) [address], [facility] [address] [place] [address] Lymphocytes/100 WBC (Bld) 22.0 % Normal [facility] Comment on above: Performed By: #### Tori OG CMP, 46464-3 #### [facility] ([id number]) [address], [address] [place] [address] MCH (RBC) [Entitic mass] 31.3 pg Normal 27-34 [facility] Comment on above: Performed By: #### Tori OG CMP, 03613-0 #### [facility] ([id number]) [address], [address] [place] [address] MCHC (RBC) [Mass/Vol] 34.0 g/dL Normal 32-36 [facility] Comment on above: Performed By: #### C EARLE CMP, 62294-6 #### [facility] ([id number]) [address], [address] [place] [address] MCV (RBC) [Entitic vol] 92 fL Normal 80-100 [facility] Comment on above: Performed By: #### Tori OG, CMP, 10633-7 #### [facility] ([id number]) [address], [address] [place] [address] Monocytes (Bld) [#/Vol] 0.5 10*3/uL Normal 0-0.9 [facility] Comment on above: Performed By: #### Tori OG CMP, 53226-2 #### [facility] ([id number]) [address], [address] [place] [address] Monocytes/100 WBC (Bld) 7.0 % Normal [facility] Comment on above: Performed By: #### Tori OG, CMP, 45734-1 #### [facility] ([id number]) [address], [address] [place] [address] Neutrophils/100 WBC (Bld) 69.9 % Normal [facility] Comment on above: Performed By: #### Tori OG CMP, 50781-6 #### [facility] ([id number]) [address], [address] [place] [address] Platelet mean volume (Bld) [Entitic vol] 8.8 fL Normal 7-12 [facility] Comment on above: Performed By: #### Tori OG, CMP, 80054-9 #### [facility] ([id number]) [address], [address] [place] [address] Platelets (Bld) [#/Vol] 259 10*3/uL Normal 150-450 [facility] Comment on above: Performed By: #### Tori BCA, CMP, 54333-2 #### [facility] ([id number]) [address], [address] [place] [address] RBC COUNT 3.29 X10E12/L Low 3.80-5.20 [facility] Comment on above: Performed By: #### C BCA, CMP, 44497-0 #### [facility] ([id number]) [address], [address] [place] [address] WBC (Bld) [#/Vol] 7.7 10*3/uL Normal 4.0-11.0 [facility] Comment on above: Performed By: #### C BCA, CMP, 49304-6 #### [facility] ([id number]) [address], [address] [place] [address] COMPREHENSIVE METABOLIC PANE Paco 02-09-2024 Albumin [Mass/Vol] 2.9 g/dL Low 3.2-5.3 [facility] Comment on above: Performed By: #### C BCA, CMP, 04354-7 #### [facility] ([id number]) [address], [address] [place] [address] ALP [Catalytic activity/Vol] 118 U/L Normal 39-130 [facility] Comment on above: Performed By: #### C BCA, CMP, 90599-9 #### [facility] ([id number]) [address], [address] [place] [address] ALT [Catalytic activity/Vol] 6 U/L Normal 0-31 [facility] Comment on above: Performed By: #### C BCA, CMP, 04970-9 #### [facility] ([id number]) [address], [address] [place] [address] Anion gap [Moles/Vol] 10 mmol/L Normal 5-15 [facility] Comment on above: Performed By: #### C BCA, CMP, 37058-8 #### [facility] ([id number]) [address], [address] [place] [address] AST [Catalytic activity/Vol] 9 U/L Normal 0-41 [facility] Comment on above: Performed By: #### C BCA, CMP, 53482-7 #### [facility] ([id number]) [address], [address] [place] [address] Bilirubin [Mass/Vol] 0.4 mg/dL Normal 0.3-1.2 [facility] Comment on above: Performed By: #### C BCA, CMP, 70722-8 #### [facility] ([id number]) [address], [address] [place] [address] Calcium [Mass/Vol] 8.5 mg/dL Normal 8.5-10.5 [facility] Comment on above: Performed By: #### C BCA, CMP, 64728-4 #### [facility] ([id number]) [address], [address] [place] [address] Chloride [Moles/Vol] 105 mmol/L Normal 98-109 [facility] Comment on above: Performed By: #### C BCA, CMP, 78512-5 #### [facility] ([id number]) [address], [address] [place] [address] CO2 [Moles/Vol] 22 mmol/L Normal 22-32 [facility] Comment on above: Performed By: #### C BCA, CMP, 87764-3 #### [facility] ([id number]) [address], [address] [place] [address] Creatinine [Mass/Vol] 0.45 mg/dL Normal 0.40-1.00 [facility] Comment on above: Result Comment: METH OD TRACEABLE TO IDMS STANDARD Performed By: #### C BCA, CMP, 97194-5 #### [facility] ([id number]) [address] [address] [place], [place] [address] eGFR (CKD-EPI) NON-RACE DEPENDENT >90 Normal >59 [facility] Comment on above: Result Comment: Reported eGFR is based on the CKD-EPI 2020 equation that does not use a race coefficient. Performed By: #### C BCA, CMP, 88155-3 #### [facility] ([id number]) [address], [address] [place] [address] Glucose [Mass/Vol] 84 mg/dL Normal 65-99 [facility] Comment on above: Performed By: #### C BCA, CMP, 43912-3 #### [facility] ([id number]) [address] [address] [place] [address] Potassium [Moles/Vol] 3.7 mmol/L Normal 3.5-5.0 [facility] Comment on above: Performed By: #### C BCA, CMP, 06494-3 #### [facility] ([id number]) [address] [address] [place] [address] Protein [Mass/Vol] 6.0 g/dL Normal 6.0-8.0 [facility] Comment on above: Performed By: #### C BCA, CMP, 07010-8 #### [facility] ([id number]) [address] [address] [place] [address] Sodium [Moles/Vol] 137 mmol/L Normal 134-146 [facility] Comment on above: Performed By: #### C BCA, CMP, 51512-7 #### [facility] ([id number]) [address] [address] [place] [address] Urea nitrogen [Mass/Vol] 5 mg/dL Normal 5-23 [facility] Comment on above: Performed By: #### C BCA, CMP, 18279-0 #### [facility] ([id number]) [address] [address] [place] [address] MAGNESIUMon 02-09-2024 Magnesium [Mass/Vol] 1.6 mg/dL Low 1.8-2.6 [facility] Comment on above: Performed By: #### C IZAIAH OG, 86089-6 #### [facility] ([id number]) [address], [address] [place] [address] PHOSPHORUSon 02-09-2024 Phosphate [Mass/Vol] 4.5 mg/dL Normal 2.4-4.9 [facility] Comment on above: Performed By: #### C IZAIAH OG, 07729-8 #### [facility] ([id number]) [address], [address] [place] [address] US RETROPERITONEAL LIMITEDon 02-09-2024 US RETROPERITONEAL LIMITED US RETROPERITONEAL LIMITED HISTORY: A 38-year-old female with the history of the pyelonephritis. Patient is on the antibiotics. Hydronephrosis is suspected. TECHNIQUE: Multiple real-time images of the kidneys are obtained. Color Doppler study is performed. COMPARISON: No relevant prior studies are available for comparison. FINDINGS: Both kidneys are normal in position and configuration. Right kidney measures 11.9 x 4.7 x 5.5 Cms. Right renal cortical thickness measures 0.6 Cms . Left kidney measures 12.3 x 5.3 x 5.1 Cms. Left renal cortical thickness measures 0.5 Cms. There is no evidence of hydronephrosis in the either kidney. Renal cortical echoes are within normal limits. No evidence of cystic or solid renal mass. IMPRESSION: * No evidence of echogenic calculi or hydronephrosis in the either kidney. * No evidence of cystic or solid renal mass. Finalized by Vitaly Andrade MD on 02/09/2024 10:14 AM Normal [facility] BLOOD CULTUREon 02-08-2024 Bacteria identified Aer cx Nom (Bld) SPECIMEN NOTES SUBOPTIMAL VOLUME OF BLOOD COLLECTED, RESULTS MAY BE AFFECTED. CULTURE RESULTS NO GROWTH 4 DAYS Normal [facility] Comment on above: Performed By: #### C IZAIAH OG, 05692-5 #### [facility] ([id number]) [address] [address] [place] [address] Bacteria identified Aer cx Nom (Bld) SPECIMEN NOTES SUBOPTIMAL VOLUME OF BLOOD COLLECTED, RESULTS MAY BE AFFECTED. CULTURE RESULTS NO GROWTH 4 DAYS Normal [facility] Comment on above: Performed By: #### 1 7928-3 #### [facility] ([id number]) [address] [address] CBC AND AUTO DIFFon 10-10-20 24 ABSOLUTE BASOPHIL 0.0 X10E9/L Normal 0.0-0.2 [facility] Comment on above: Performed By: #### C EARLE CMP, 92137-2 #### [facility] ([id number]) [address] [address] ABSOLUTE NEUTROPHIL 9.5 X10E9/L High 1.5-6.6 [facility] Comment on above: Performed By: #### Tori OG, CMP, 96739-7 #### [facility] ([id number]) [address] [address] Basophils/100 WBC (Bld) 0.0 % Normal [facility] Comment on above: Performed By: #### C BCA, CMP, 43508-5 #### [facility] ([id number]) [address] [address] Eosinophils (Bld) [#/Vol] 0.0 10*3/uL Normal 0.0-0.4 [facility] Comment on above: Performed By: #### C BCA, CMP, 64527-6 #### [facility] ([id number]) [address] [address] Eosinophils/100 WBC (Bld) 0.0 % Normal [facility] Comment on above: Performed By: #### C BCA, CMP, 35803-3 #### [facility] ([id number]) [address] [place] [address] Erythrocyte distribution width (RBC) [Ratio] 14.5 % Normal 11.5-15.0 [facility] Comment on above: Performed By: #### Tori OG CMP, 96962-8 #### [facility] ([id number]) [address] [address] [place] [address] Hematocrit (Bld) [Volume fraction] 31.3 % Low 35-47 [facility] Comment on above: Performed By: #### Tori OG CMP, 65036-3 #### [facility] ([id number]) [address], [facility] [address] [place] [address] Hemoglobin (Bld) [Mass/Vol] 10.6 g/dL Low 11.7-15.5 [facility] Comment on above: Performed By: #### Tori OG CMP, 03728-6 #### [facility] ([id number]) [address] [address] [place] [address] Lymphocytes (Bld) [#/Vol] 1.1 10*3/uL Normal 1.0-3.5 [facility] Comment on above: Performed By: #### Tori OG CMP, 68065-6 #### [facility] ([id number]) [address] [address] [place] [address] Lymphocytes/100 WBC (Bld) 9.4 % Normal [facility] Comment on above: Performed By: #### Tori OG CMP, 01903-1 #### [facility] ([id number]) [address], [facility] [address] [place] [address] MCH (RBC) [Entitic mass] 30.8 pg Normal 27-34 [facility] Comment on above: Performed By: #### Tori OG CMP, 81657-4 #### [facility] ([id number]) [address], [address] [place] [address] MCHC (RBC) [Mass/Vol] 33.9 g/dL Normal 32-36 [facility] Comment on above: Performed By: #### C EARLE CMP, 12727-7 #### [facility] ([id number]) [address], [address] [place] [address] MCV (RBC) [Entitic vol] 91 fL Normal 80-100 [facility] Comment on above: Performed By: #### Tori OG, CMP, 47931-5 #### [facility] ([id number]) [address], [address] [place] [address] Monocytes (Bld) [#/Vol] 0.9 10*3/uL Normal 0-0.9 [facility] Comment on above: Performed By: #### C EARLE CMP, 22619-0 #### [facility] ([id number]) [address], [address] [place] [address] Monocytes/100 WBC (Bld) 8.2 % Normal [facility] Comment on above: Performed By: #### Tori OG, CMP, 63098-7 #### [facility] ([id number]) [address], [address] [place] [address] Neutrophils/100 WBC (Bld) 82.4 % Normal [facility] Comment on above: Performed By: #### Tori OG CMP, 16353-4 #### [facility] ([id number]) [address], [address] [place] [address] Platelet mean volume (Bld) [Entitic vol] 8.5 fL Normal 7-12 [facility] Comment on above: Performed By: #### Tori OG, CMP, 60111-4 #### [facility] ([id number]) [address], [address] [place] [address] Platelets (Bld) [#/Vol] 246 10*3/uL Normal 150-450 [facility] Comment on above: Performed By: #### C BCA, CMP, 04563-1 #### [facility] ([id number]) [address], [address] [place] [address] RBC COUNT 3.44 X10E12/L Low 3.80-5.20 [facility] Comment on above: Performed By: #### C BCA, CMP, 85173-5 #### [facility] ([id number]) [address], [address] [place] [address] WBC (Bld) [#/Vol] 11.5 10*3/uL High 4.0-11.0 [facility] Comment on above: Performed By: #### C BCA, CMP, 91485-1 #### [facility] ([id number]) [address], [address] [place] [address] COMPREHENSIVE METABOLIC PANE Paco 02-08-2024 Albumin [Mass/Vol] 3.1 g/dL Low 3.2-5.3 [facility] Comment on above: Performed By: #### C BCA, CMP, 47821-6 #### [facility] ([id number]) [address], [address] [place] [address] ALP [Catalytic activity/Vol] 100 U/L Normal 39-130 [facility] Comment on above: Performed By: #### C BCA, CMP, 64626-5 #### [facility] ([id number]) [address], [address] [place] [address] ALT [Catalytic activity/Vol] 7 U/L Normal 0-31 [facility] Comment on above: Performed By: #### C BCA, CMP, 61192-3 #### [facility] ([id number]) [address], [address] [place] [address] Anion gap [Moles/Vol] 12 mmol/L Normal 5-15 [facility] Comment on above: Performed By: #### C BCA, CMP, 59047-3 #### [facility] ([id number]) [address], [address] [place] [address] AST [Catalytic activity/Vol] 8 U/L Normal 0-41 [facility] Comment on above: Performed By: #### C BCA, CMP, 83033-5 #### [facility] ([id number]) [address], [address] [place] [address] Bilirubin [Mass/Vol] 0.5 mg/dL Normal 0.3-1.2 [facility] Comment on above: Performed By: #### C BCA, CMP, 81475-9 #### [facility] ([id number]) [address], [address] [place] [address] Calcium [Mass/Vol] 8.3 mg/dL Low 8.5-10.5 [facility] Comment on above: Performed By: #### C BCA, CMP, 56563-6 #### [facility] ([id number]) [address], [address] [place] [address] Chloride [Moles/Vol] 104 mmol/L Normal 98-109 [facility] Comment on above: Performed By: #### C BCA, CMP, 26814-5 #### [facility] ([id number]) [address], [address] [place] [address] CO2 [Moles/Vol] 20 mmol/L Low 22-32 [facility] Comment on above: Performed By: #### C BCA, CMP, 72474-6 #### [facility] ([id number]) [address], [address] [place] [address] Creatinine [Mass/Vol] 0.53 mg/dL Normal 0.40-1.00 [facility] Comment on above: Result Comment: METH OD TRACEABLE TO IDMS STANDARD Performed By: #### C BCA, CMP, 91544-8 #### [facility] ([id number]) [address], [address] [place] [address] eGFR (CKD-EPI) NON-RACE DEPENDENT >90 Normal >59 [facility] Comment on above: Result Comment: Reported eGFR is based on the CKD-EPI 2020 equation that does not use a race coefficient. Performed By: #### C BCA, CMP, 39497-4 #### [facility] ([id number]) [address], [address] [place] [address] Glucose [Mass/Vol] 115 mg/dL High 65-99 [facility] Comment on above: Performed By: #### C BCA, CMP, 43269-6 #### [facility] ([id number]) [address] [address] [place] [address] Potassium [Moles/Vol] 3.6 mmol/L Normal 3.5-5.0 [facility] Comment on above: Performed By: #### C BCA, CMP, 57005-0 #### [facility] ([id number]) [address] [address] [place] [address] Protein [Mass/Vol] 6.1 g/dL Normal 6.0-8.0 [facility] Comment on above: Performed By: #### C BCA, CMP, 13694-1 #### [facility] ([id number]) [address], [address] [place] [address] Sodium [Moles/Vol] 136 mmol/L Normal 134-146 [facility] Comment on above: Performed By: #### C BCA, CMP, 05321-0 #### [facility] ([id number]) [address] [address] [place] [address] Urea nitrogen [Mass/Vol] 3 mg/dL Low 5-23 [facility] Comment on above: Performed By: #### C BCA, CMP, 17826-2 #### [facility] ([id number]) [address] [place] [address] DRUG SCREEN, URINEon 024 AMPHETAMINE/METHAMP Negative Normal NEG [facility] Comment on above: Result Comment: AMPH /METH screening cut off = 1000 ng/mL Performed By: #### D GUILLEN #### [facility] ([id number]) [address], [address] [place] [address] BARBITURATES Negative Normal NEG [facility] Comment on above: Result Comment: Megan iturates screening cut off value = 200 ng/mL Performed By: #### D GUILLEN #### [facility] ([id number]) [address] [place] [address] BENZODIAZEPINES Negative Normal NEG [facility] Comment on above: Result Comment: Giorgio odiazepines screening cut off value = 200 ng/mL Performed By: #### D GUILLEN #### [facility] ([id number]) [address], [address] [place] [address] CANNABINOIDS Negative Normal NEG [facility] Comment on above: Result Comment: Elsie abinoids/THC screening cut off value = 50 ng/mL Performed By: #### D GUILLEN #### [facility] ([id number]) [address], [address] [place] [address] COCAINE METABOLITE Negative Normal NEG [facility] Comment on above: Result Comment: Coca ine screening cut off value = 300 ng/mL Performed By: #### D GUILLEN #### [facility] ([id number]) [address], [address] [place] [address] ECSTASY Negative Normal NEG [facility] Comment on above: Result Comment: Ecst asy screening cut off value = 500 ng/mL This report is intended for use in clinical monitoring or management of patients. Performed By: #### D GUILLEN #### [facility] ([id number]) [address], [address] [place] [address] METHADONE Negative Normal NEG [facility] Comment on above: Result Comment: Meth adone screening cut off value = 300 ng/mL. Performed By: #### D GUILLEN #### [facility] ([id number]) [address] [place] [address] OPIATES Negative Normal NEG [facility] Comment on above: Result Comment: Opia joey screening cut off value = 300 ng/mL NOTE: This test is used for the detection of codeine, hydrocodone (>1000 ng/mL), morphine and hydromorphone (>900 ng/mL) in urine. Performed By: #### D GUILLEN #### [facility] ([id number]) [address], [address] [place] [address] OXYCODONE Negative Normal NEG [facility] Comment on above: Result Comment: Oxyc odone screening cut off value = 300 ng/mL NOTE: This test is used for the detection of oxycodone and oxymorphone in urine. Performed By: #### D GUILLEN #### [facility] ([id number]) [address] [place] [address] PHENCYCLIDINE Negative Normal NEG [facility] Comment on above: Result Comment: Phen cyclidine screening cut off value = 25 ng/mL Performed By: #### D GUILLEN #### [facility] ([id number]) [address] [place] [address] Glucose Glucometer (BldC) [M ass/Vol]on 02-08-2024 Glucose [Mass/Vol] 107 mg/dL High 65-99 [facility] Lactate (P melvin) [Moles/Vol]o n 02-08-2024 LACTATE W/REFLEX 1.0 mmol/L Normal 0.4-2.0 [facility] Comment on above: Result Comment: Result did not trigger repeat Lactate, re-order if needed. Performed By: #### 3 2133-1, 15475-4 #### [facility] ([id number]) [address], [address] [place] [address] LACTATE W/REFLEX 0.8 mmol/L Normal 0.4-2.0 [facility] Comment on above: Result Comment: Result did not trigger repeat Lactate, re-order if needed. Performed By: #### C BCA, CMP, 37601-5 #### [facility] ([id number]) [address] [address] Procalcitonin IA [Mass/Vol]o n 02-08-2024 PROCALCITONIN 0.74 ng/mL High <0.05 [facility] Comment on above: Result Comment: NOTE <0.50 ng/mL - Low risk of severe sepsis and/or septic shock. <2.00 ng/mL - Recommend retesting within 6-24 hours. >2.00 ng/mL - High risk of sepsis and/or septic shock. Performed By: #### 3 2133-1, 78887-1 #### [facility] ([id number]) [address], [address] [place] [address] URINALYSISon 02-08-2024 Bilirubin Ql (U) Negative Normal NEG [facility] Comment on above: Performed By: #### U A #### [facility] ([id number]) [address] [address] BLOOD/HGB Small Abnormal NEG [facility] Comment on above: Performed By: #### U A #### [facility] ([id number]) [address] [address] [place] [address] Color (U) YELLOW Normal YELLOW [facility] Comment on above: Performed By: #### U A #### [facility] ([id number]) [address] [address] [place] [address] Glucose Ql (U) Negative Normal NEG [facility] Comment on above: Performed By: #### U A #### [facility] ([id number]) [address], [address] [place] [address] Ketones Ql (U) 20 mg/dL Abnormal NEG [facility] Comment on above: Performed By: #### U A #### [facility] ([id number]) [address], [address] [place] [address] Leukocyte esterase Test strip Ql (U) Negative Normal NEG [facility] Comment on above: Performed By: #### U A #### [facility] ([id number]) [address], [address] [place] [address] MUCOUS PRESENT Abnormal NONE [facility] Comment on above: Performed By: #### U A #### [facility] ([id number]) [address] [place] [address] Nitrite Ql (U) Negative Normal NEG [facility] Comment on above: Performed By: #### U A #### [facility] ([id number]) [address] [place] [address] pH (U) 8.0 [pH] Normal 5.0-8.5 [facility] Comment on above: Performed By: #### U A #### [facility] ([id number]) [address] [place] [address] Protein Ql (U) Trace Abnormal NEG [facility] Comment on above: Performed By: #### U A #### [facility] ([id number]) [address], [address] [place] [address] R.B.CELLS 16 /hpf High 0-5 [facility] Comment on above: Performed By: #### U A #### [facility] ([id number]) [address], [address] [place] [address] Specific gravity (U) [Rel density] 1.012 Normal 1.003-1.035 [facility] Comment on above: Performed By: #### U A #### [facility] ([id number]) [address] [place] [address] SQUAMOUS EPITHELIUM 1 /hpf Normal 0-5 [facility] Comment on above: Performed By: #### U A #### [facility] ([id number]) [address], [address] [place] [address] TRANSITIONAL EPITH <1 High 0 [facility] Comment on above: Performed By: #### U A #### [facility] ([id number]) [address] [place] [address] TURBIDITY CLEAR Normal CLEAR [facility] Comment on above: Performed By: #### U A #### [facility] ([id number]) [address] [place] [address] Urobilinogen Qn (U) 2 {Blanca'U}/dL High <1.1 [facility] Comment on above: Performed By: #### U A #### [facility] ([id number]) [address] [place] [address] W.B.CELLS 2 /hpf Normal 0-5 [facility] Comment on above: Performed By: #### U A #### [facility] ([id number]) [address] [place] [address] URINE CULTUREon 02-08-2024 Bacteria identified Cx Nom (U) CULTURE RESULTS NO GROWTH AT <1000 CFU/mL Normal [facility] Comment on above: Performed By: #### C BCA, CMP, 73517-8 #### [facility] ([id number]) [address] [place] [address] XR CHEST 1 VWon 02-08-2024 XR CHEST 1 VW XR CHEST 1 VW Chest radiograph dated: 02/08/2024. Reason for study: Concern for sepsis, low oxygen saturation, . Comparison studies: None Technique: Portable semiupright chest 1 view AP. Findings: Unremarkable cardiomediastinal silhouette. There is no ricarda pulmonary edema. No pneumothorax, significant pleural effusions or focal consolidation. No acute osseous abnormality. IMPRESSION: No acute cardiopulmonary process identified Finalized by Rose Marie Rubi MD on 02/08/2024 9:35 AM Normal [facility] No Panel InformationOrdered By: Sanaz Lockwood on 08-18-2023 Quick Strep (POC) [facility] COVID + FLU Quick Testingon 04-27-2023 SARS-CoV-2 (COVID-19) RNA J LUIS+probe Ql (Unsp spec) Negative [facility] [employer] Other COVID + FLU Quick Testing Negative [employer] Other Quick Strepon 04-27-2023 S. pyogenes Org specific cx Ql (Throat) Negative [employer] Other Quick Strep [email or web address] [facility] [employer] Other COVID/FLU/RSV RT-PCRon 05-10 SARS-CoV-2 (COVID-19) RNA J LUIS+probe Ql (Unsp spec) Negative [employer] Other COVID/FLU/RSV RT-PCR Positive [email or web address] Other COVID/FLU/RSV RT-PCR Negative [employer] Other CBC AUTO DIFFon 04-27-2022 BASO # 0.0 103/ul Normal 0.0-0.1 [facility] Comment on above: Performed By: #### C BC #### [facility] [address] [address] [address] Dee Humphrey Basophils/100 WBC (Bld) 0.2 % Normal 0.2-2.0 [facility] Comment on above: Performed By: #### C BC #### [facility] [address], [place] [address] Dr. Dee Humphrey EO # 0.1 103/ul Normal 0.0-0.7 [facility] Comment on above: Performed By: #### C BC #### [facility] [address] [place] [address] Dr. Dee Humphrey Eosinophils/100 WBC (Bld) 0.6 % Critically low 0.9-7.0 [facility] Comment on above: Performed By: #### C BC #### [facility] [address] [place] [address] Dr. Dee Humphrey Erythrocyte distribution width (RBC) [Ratio] 14.1 % Normal 11.0-15.0 [facility] Comment on above: Performed By: #### C BC #### [facility] [address] [place] [address] Dr. Dee Humphrey Hematocrit (Bld) [Volume fraction] 37.1 % Normal 36.0-48.0 [facility] Comment on above: Performed By: #### C BC #### [facility] [address] [place] [address] Dr. Dee Humphrey Hemoglobin (Bld) [Mass/Vol] 12.4 g/dL Normal 12.0-16.0 [facility] Comment on above: Performed By: #### C BC #### [facility] [address] [place] [address] Dr. Dee Humphrey IG # 0.06 10e3/ul Critically high 0.00-0.03 [facility] Comment on above: Performed By: #### C BC #### [facility] [address] [place] [address] Dr. Dee Humphrey IG % 0.5 % Normal 0.0-0.5 [facility] Comment on above: Performed By: #### C BC #### [facility] [address] [place] [address] Dr. Dee Humphrey LYMPH # 3.7 103/ul Normal 1.2-3.8 [facility] Comment on above: Performed By: #### C BC #### [facility] [address] [place] [address] Dr. Dee Humphrey Lymphocytes/100 WBC (Bld) 28.7 % Normal 20.5-60.0 [facility] Comment on above: Performed By: #### C BC #### [facility] [address] [place] [address] Dr. Dee Humphrey MANUAL DIFF REQ NO Normal [facility] Comment on above: Performed By: #### C BC #### [facility] [address] [place] [address] Dr. Dee Humphrey MCH (RBC) [Entitic mass] 30.2 pg Normal 26.7-34.0 [facility] Comment on above: Performed By: #### C BC #### [facility] [address] [place] [address] Dr. Dee Humphrey MCHC (RBC) [Mass/Vol] 33.4 g/dL Normal 29.9-35.2 [facility] Comment on above: Performed By: #### C BC #### [facility] [address] [place] [address] Dr. Dee Humphrey MCV (RBC) [Entitic vol] 90.5 fL Normal 81.0-99.0 [facility] Comment on above: Performed By: #### C BC #### [facility] [address] [place] [address] Dr. Dee Humphrey MONO # 0.7 103/ul Normal 0.3-0.8 [facility] Comment on above: Performed By: #### C BC #### [facility] [address] [place] [address] Dr. Dee Humphrey Monocytes/100 WBC (Bld) 5.0 % Normal 1.7-12.0 [facility] Comment on above: Performed By: #### C BC #### [facility] [address] [place] [address] Dr. Dee Humphrey NEUT # 8.5 103/ul Critically high 1.4-6.[address] [facility] Comment on above: Performed By: #### C BC #### [facility] [address] [place] [address] Dr. Dee Humphrey Neutrophils/100 WBC (Bld) 65.0 % Normal 43.0-75.0 [facility] Comment on above: Performed By: #### C BC #### [facility] [address], [place] [address] Dr. Dee Humphrey Platelet mean volume (Bld) [Entitic vol] 9.6 fL Normal 9.5-13.5 [facility] Comment on above: Performed By: #### C BC #### [facility] [address] [place], [place] [address] Dr. Dee Humphrey PLT 317 103/ul Normal 150-450 [facility] Comment on above: Performed By: #### C BC #### [facility] [address] [place], [place] [address] Dr. Dee Humphrey RBC 4.10 106/ul Critically low 4.20-5.40 [facility] Comment on above: Performed By: #### C BC #### [facility] [address] [place], [place] [address] Dr[address] Dee Humphrey WBC 13.1 103/ul Critically high 4.0-11.0 [facility] Comment on above: Performed By: #### C BC #### [facility] [address] [place], [place] [address] ABD/PELVIS WO CONon [...] ROCIO CHAU Date: 2022-04-27 20:24 Normal [facility] ER URINE PROFILEon 2 Bilirubin Ql (U) Negative Normal NEGATIVE [facility] Comment on above: Performed By: #### P REGU, ERUR #### [facility] [address] [place] [address] Dr. Dee Humphrey Clarity (U) CLEAR Normal CLEAR [facility] Comment on above: Performed By: #### P REGU, ERUR #### [facility] [address] [place] [address] Dr. Dee Humphrey Color (U) YELLOW Normal YELLOW [facility] Comment on above: Performed By: #### P REGU, ERUR #### [facility] [address] [place] [address] Dr. Dee STANFORD A micrscopic examination will be performed if indicated. Normal [facility] Comment on above: Performed By: #### P REGU, ERUR #### [facility] [address] [place] [address] Dr. Dee Humphrey Glucose Ql (U) Negative Normal NEGATIVE [facility] Comment on above: Performed By: #### P REGU, ERUR #### [facility] [address] [place] [address] Dr. Dee Humphrey Hemoglobin Ql (U) Negative Normal NEGATIVE [facility] Comment on above: Performed By: #### P REGU, ERUR #### [facility] [address] [place] [address] Dr. Dee Humphrey Ketones Ql (U) Negative Normal NEGATIVE [facility] Comment on above: Performed By: #### P REGU, ERUR #### [facility] [address] [place] [address] Dr. Dee Humphrey LEUKOCYTES Negative Normal NEGATIVE [facility] Comment on above: Performed By: #### P REGU, ERUR #### [facility] [address] [place] [address] Dr. Dee Humphrey Nitrite Ql (U) Negative Normal NEGATIVE [facility] Comment on above: Performed By: #### P REGU, ERUR #### [facility] [address] [address] [address] Dee Humphrey pH (U) 5.5 [pH] Normal 5-9 [facility] Comment on above: Performed By: #### P REGU, ERUR #### [facility] [address] [place] [address] Dr. Dee Humphrey SPEC GRAVITY >=1.030 Abnormal 1.005-<=1.02 5 [facility] Comment on above: Performed By: #### P REGU, ERUR #### [facility] [address] [place] [address] Dr. Dee Humphrey UA PROTEIN Negative Normal NEGATIVE/ TRACE [facility] Comment on above: Performed By: #### P REGU, ERUR #### [facility] [address] [place] [address] Dr. Dee Humphrey UR MICRO IND NOT INDICATED Normal [facility] Comment on above: Performed By: #### P REGU, ERUR #### [facility] [address] [place] [address] Dr. Dee Humphrey Urobilinogen Qn (U) 0.2 {Blanca'U}/dL Normal 0.2 - 1. 0 [facility] Comment on above: Performed By: #### P REGU, ERUR #### [facility] [address] [place] [address] Dr. Dee Humphrey LIPASEon 04-27-2022 Lipase [Catalytic activity/Vol] 94.0 U/L Normal 73.0-393.0 [facility] Comment on above: Performed By: #### L IPA, CMP #### [facility] [address] [place] [address] Dr. Dee Humphrey URon 04-27-2022 , QUAL Negative Normal NEGATIVE [facility] Comment on above: Performed By: #### P REGU, ERUR #### [facility] [address] [address] [address] Dee Humphrey PROF 14(COMP METB)on 022 Albumin [Mass/Vol] 3.9 g/dL Normal 3.4-5.0 [facility] Comment on above: Performed By: #### L IPA, CMP #### [facility] [address] [address] [address] Dee Humphrey Albumin/Globulin [Mass ratio] 1.0 {ratio} Normal [facility] Comment on above: Performed By: #### L IPA, CMP #### [facility] [address] [address] [address] Dee Humphrey ALP [Catalytic activity/Vol] 87 U/L Normal 46-116 [facility] Comment on above: Performed By: #### L IPA, CMP #### [facility] [address] [address] [address] Dee Humphrey ALT [Catalytic activity/Vol] 31 U/L Normal 14-59 [facility] Comment on above: Performed By: #### L IPA, CMP #### [facility] [address] [address] [address] Dee Humphrey Anion gap [Moles/Vol] 10.8 mmol/L Normal [facility] Comment on above: Performed By: #### L IPA, CMP #### [facility] [address] [address] [address] Dee Humphrey AST [Catalytic activity/Vol] 17 U/L Normal 15-37 [facility] Comment on above: Performed By: #### L IPA, CMP #### [facility] [address] [address] [address] Dee Humphrey Bilirubin [Mass/Vol] 0.1 mg/dL Critically low 0.2-1.0 [facility] Comment on above: Performed By: #### L IPA, CMP #### [facility] [address] [address] [address] Dee Humphrey Calcium [Mass/Vol] 8.9 mg/dL Normal 8.5-10.1 [facility] Comment on above: Performed By: #### L IPA, CMP #### [facility] [address] [address] [address] Dee Humphrey Chloride [Moles/Vol] 103 mmol/L Normal 98-107 [facility] Comment on above: Performed By: #### L IPA, CMP #### [facility] [address] [address] [address] Dee Humphrey CO2 [Moles/Vol] 26.9 mmol/L Normal 21.0-32.0 [facility] Comment on above: Performed By: #### L IPA, CMP #### [facility] [address] [address] [address] Dee Humphrey Creatinine [Mass/Vol] 0.80 mg/dL Normal 0.55-1.02 [facility] Comment on above: Performed By: #### L IPA, CMP #### [facility] [address] [address] [address] Dee Humphrey EGFR-AF FIJIAN >60 Normal >=60 [facility] Comment on above: Performed By: #### L IPA, CMP #### [facility] [address] [address] [address] Dee Humphrey EGFR-NON AF FIJIAN >60 Normal >=60 [facility] Comment on above: Performed By: #### L IPA, CMP #### [facility] [address] [address] [address] Dee Humphrey Globulin (S) [Mass/Vol] 3.9 g/dL Normal [facility] Comment on above: Performed By: #### L IPA, CMP #### [facility] [address] [address] [address] Dee Humphrey Glucose [Mass/Vol] 96 mg/dL Normal 74-106 [facility] Comment on above: Performed By: #### L IPA, CMP #### [facility] [address] [address] [address] Dee Humphrey Potassium [Moles/Vol] 3.7 mmol/L Normal 3.5-5.1 [facility] Comment on above: Performed By: #### L IPA, CMP #### [facility] [address] [place] [address] Dr. Dee Humphrey Protein [Mass/Vol] 7.8 g/dL Normal 6.4-8.2 [facility] Comment on above: Performed By: #### L IPA, CMP #### [facility] [address] [place] [address] Dr. Dee Humphrey Sodium [Moles/Vol] 137 mmol/L Normal 136-145 [facility] Comment on above: Performed By: #### L IPA, CMP #### [facility] [address] [place] [address] Dr. Dee Humphrey Urea nitrogen [Mass/Vol] 13.0 mg/dL Normal 7.0-18.0 [facility] Comment on above: Performed By: #### L IPA, CMP #### [facility] [address] [place] [address] Dr. Dee Humphrey Urea nitrogen/Creatinine [Mass ratio] 16.2 mg/mg Normal [facility] Comment on above: Performed By: #### L IPA, CMP #### [facility] [address] [place] [address] Dr. Dee Humphrey CBC AUTO DIFFon 03-07-2022 BASO # 0.0 103/ul Normal 0.0-0.1 [facility] Comment on above: Performed By: #### C BC #### [facility] [address] [place] [address] Dr. Dee Humphrey Basophils/100 WBC (Bld) 0.3 % Normal 0.2-2.0 [facility] Comment on above: Performed By: #### C BC #### [facility] [address] [place] [address] Dr. Dee Humphrey EO # 0.1 103/ul Normal 0.0-0.7 [facility] Comment on above: Performed By: #### C BC #### [facility] [address] [place] [address] Dr. Dee Humphrey Eosinophils/100 WBC (Bld) 0.7 % Critically low 0.9-7.0 [facility] Comment on above: Performed By: #### C BC #### [facility] [address] [place] [address] Dr. Dee Humphrey Erythrocyte distribution width (RBC) [Ratio] 13.0 % Normal 11.0-15.0 [facility] Comment on above: Performed By: #### C BC #### [facility] [address] [place] [address] Dr. Dee Humphrey Hematocrit (Bld) [Volume fraction] 39.2 % Normal 36.0-48.0 [facility] Comment on above: Performed By: #### C BC #### [facility] [address] [place] [address] Dr. Dee Humphrey Hemoglobin (Bld) [Mass/Vol] 13.2 g/dL Normal 12.0-16.0 [facility] Comment on above: Performed By: #### C BC #### [facility] [address] [place] [address] Dr. Dee Humphrey IG # 0.05 10e3/ul Critically high 0.00-0.03 [facility] Comment on above: Performed By: #### C BC #### [facility] [address] [place] [address] Dr. Dee Humphrey IG % 0.5 % Normal 0.0-0.5 [facility] [facility] Comment on above: Performed By: #### C BC #### [facility] [address] [place] [address] Dr. Dee Humphrey LYMPH # 4.2 103/ul Critically high 1.2-3.8 [facility] Comment on above: Performed By: #### C BC #### [facility] [address] [place] [address] Dr. Dee Humphrey Lymphocytes/100 WBC (Bld) 43.1 % Normal 20.5-60.0 [facility] Comment on above: Performed By: #### C BC #### [facility] [address] [place] [address] Dr. Dee Humphrey MANUAL DIFF REQ NO Normal [facility] Comment on above: Performed By: #### C BC #### [facility] [address] [place] [address] Dr. Dee Humphrey MCH (RBC) [Entitic mass] 30.5 pg Normal 26.7-34.0 [facility] Comment on above: Performed By: #### C BC #### [facility] [address] [place] [address] Dr. Dee Humphrey MCHC (RBC) [Mass/Vol] 33.7 g/dL Normal 29.9-35.2 [facility] Comment on above: Performed By: #### C BC #### [facility] [address] [place] [address] Dr. Dee Humphrey MCV (RBC) [Entitic vol] 90.5 fL Normal 81.0-99.0 [facility] Comment on above: Performed By: #### C BC #### [facility] [address] [place] [address] Dr. Dee Humphrey MONO # 0.4 103/ul Normal 0.3-0.8 [facility] Comment on above: Performed By: #### C BC #### [facility] [address] [place] [address] Dr. Dee Humphrey Monocytes/100 WBC (Bld) 4.4 % Normal 1.7-12.0 [facility] Comment on above: Performed By: #### C BC #### [facility] [address] [place] [address] Dr. Dee Humphrey NEUT # 4.9 103/ul Normal 1.4-6.5 [facility] Comment on above: Performed By: #### C BC #### [facility] [address] [place] [address] Dr. Dee Humphrey Neutrophils/100 WBC (Bld) 51.0 % Normal 43.0-75.0 [facility] Comment on above: Performed By: #### C BC #### [facility] [address] [place] [address] Dr. Dee Humphrey Platelet mean volume (Bld) [Entitic vol] 9.6 fL Normal 9.5-13.5 [facility] Comment on above: Performed By: #### C BC #### [facility] [address] [place] [address] Dr. Dee Humphrey PLT 364 103/ul Normal 150-450 [facility] Comment on above: Performed By: #### C BC #### [facility] [address] [place] [address] Dr. Dee Humphrey RBC 4.33 106/ul Normal 4.20-5.40 [facility] Comment on above: Performed By: #### C BC #### [facility] [address] [place] [address] Dr. Dee Humphrey WBC 9.7 103/ul Normal 4.0-11.0 [facility] Comment on above: Performed By: #### C BC #### [facility] [address] [place] [address] Dr. Dee Humphrey LACTATE/LACTIC ACIDon 2021 Lactate [Moles/Vol] 1.1 mmol/L Normal 0.4-1.9 [facility] Comment on above: Performed By: #### P REGU, ERUR #### [facility] [address] [place] [address] Dr. Dee Humphrey LIPASEon 03-07-2022 Lipase [Catalytic activity/Vol] 79.0 U/L Normal 73.0-393.0 [facility] Comment on above: Performed By: #### C MP, LIPA #### [facility] [address] [place] [address] Dr. Dee Humphrey PROF 14(COMP METB)on 022 Albumin [Mass/Vol] 3.8 g/dL Normal 3.4-5.0 [facility] Comment on above: Performed By: #### C MP, LIPA #### [facility] [address] [place] [address] Dr. Dee Humphrey Albumin/Globulin [Mass ratio] 0.9 {ratio} Normal [facility] Comment on above: Performed By: #### C MP, LIPA #### [facility] [address] [place] [address] Dr. Dee Humphrey ALP [Catalytic activity/Vol] 80 U/L Normal 46-116 [facility] Comment on above: Performed By: #### C MP, LIPA #### [facility] [address] [place] [address] Dr. Dee Humphrey ALT [Catalytic activity/Vol] 27 U/L Normal 14-59 [facility] Comment on above: Performed By: #### C MP, LIPA #### [facility] [address] [place] [address] Dr. Dee Humphrey Anion gap [Moles/Vol] 9.5 mmol/L Normal [facility] Comment on above: Performed By: #### C MP, LIPA #### [facility] [address] [place] [address] Dr. Dee Humphrey AST [Catalytic activity/Vol] 13 U/L Critically low 15-37 [facility] Comment on above: Performed By: #### C MP, LIPA #### [facility] [address] [place] [address] Dr. Dee Humphrey Bilirubin [Mass/Vol] 0.1 mg/dL Critically low 0.2-1.0 [facility] Comment on above: Performed By: #### C MP, LIPA #### [facility] [address] [place] [address] Dr. Dee Humphrey Calcium [Mass/Vol] 9.0 mg/dL Normal 8.5-10.1 [facility] Comment on above: Performed By: #### C MP, LIPA #### [facility] [address] [place] [address] Dr. Dee Humphrey Chloride [Moles/Vol] 103 mmol/L Normal 98-107 [facility] Comment on above: Performed By: #### C MP, LIPA #### [facility] [address] [place] [address] Dr. Dee Humphrey CO2 [Moles/Vol] 27.1 mmol/L Normal 21.0-32.0 [facility] Comment on above: Performed By: #### C MP, LIPA #### [facility] [address] [place] [address] Dr. Dee Humphrey Creatinine [Mass/Vol] 0.86 mg/dL Normal 0.55-1.02 [facility] Comment on above: Performed By: #### C MP, LIPA #### [facility] [address] [place] [address] Dr. Dee Humphrey EGFR-AF FIJIAN >60 Normal >=60 [facility] Comment on above: Performed By: #### C MP, LIPA #### [facility] [address] [address] [address] Dee Humphrey EGFR-NON AF FIJIAN >60 Normal >=60 [facility] Comment on above: Performed By: #### C MP, LIPA #### [facility] [address] [place] [address] Dr. Dee Humphrey Globulin (S) [Mass/Vol] 4.1 g/dL Normal [facility] Comment on above: Performed By: #### C MP, LIPA #### [facility] [address] [place] [address] Dr. Dee Humphrey Glucose [Mass/Vol] 99 mg/dL Normal 74-106 [facility] Comment on above: Performed By: #### C MP, LIPA #### [facility] [address] [place] [address] Dr. Dee Humphrey Potassium [Moles/Vol] 3.6 mmol/L Normal 3.5-5.1 [facility] Comment on above: Performed By: #### C MP, LIPA #### [facility] [address] [place] [address] Dr. Dee Humphrey Protein [Mass/Vol] 7.9 g/dL Normal 6.4-8.2 [facility] Comment on above: Performed By: #### C MP, LIPA #### [facility] [address] [place] [address] Dr. Dee Humphrey Sodium [Moles/Vol] 136 mmol/L Normal 136-145 [facility] Comment on above: Performed By: #### C MP, LIPA #### [facility] [address] [place] [address] Dr. Dee Humphrey Urea nitrogen [Mass/Vol] 12.0 mg/dL Normal 7.0-18.0 [facility] Comment on above: Performed By: #### C JENNIFER, LIPA #### [facility] [address] [address] [address] Dee Humphrey Urea nitrogen/Creatinine [Mass ratio] 14.0 mg/mg Normal [facility] Comment on above: Performed By: #### C JENNIFER, LIPA #### [facility] [address] [address] [address] Dee Humphrey Consent for COVID Vaccineon 08-09-2020 SARS-CoV-2 (COVID-19) RNA J LUIS+probe Ql (Unsp spec) [id number]:127 [facility] Consent for Treatmenton 07-30 Consent for Treatment [id number] .[id number]:127 [facility] Coding Summary.on 08-07-2020 Coding Summary. CODING DATE: 08/07/2020 FINAL [facility] STATUS: PAYOR: Luzma APC DESCRIPTION [id number] [...] Yana Paredes Date Saved: 08/07/2020 02:46 pm [facility] Ambulatory Clinical Summaryo n 03-25-2020 Ambulatory Clinical Summary {[id number]}CD:[id number] [facility] Patient Educationon 03-19-20 Patient Education lurasidone [...] irritable, agitate (more content not included)... Normal [facility] Video Visit - Telehealtho n 02-23-2020 Video Visit - Telehealth Start Time 3:00pm Stop Time 4:00pm Chief Complaint Bipolar 1 disorder OBB (generalized anxiety disorder Mood: Good Affect: Full, [...] interactive video communications from my office using [employer] due to the restrictions of the COVID-19 pandemic. No physical exam was conducted other than those areas of the body visible to telecommunications with the patient located at [address] [place] [address] [phone], with no one else in attendance. If [...] Stopped age (more content not included)... Normal [facility] Comment on above: Result Comment: Elec tronically Signed By: Deepa [facility], Maia Montero.mati\Date and Time Signed: 02/22/20 23:17 [...] interactive video communications from my office using [employer] due to the restrictions of the COVID-19 pandemic. No physical exam was conducted other than those areas of the body visible to telecommunications with the patient located at [address] [place], [place] [phone], with no one else in attendance. If [...] Sister. Depres (more content not included)... Normal [facility] Comment on above: Result Comment: Elec tronically Signed By: Deepa [facility], Maia Montero.mati\Date and Time Signed: 02/11/20 14:46 EDT Video [...] interactive video communications from my office using [employer] due to the restrictions of the COVID-19 pandemic. No physical exam was conducted other than those areas of the body visible to telecommunications with the patient located at [address] [place], [place] [phone], with no one else in attendance. If [...] - Denies (more content not included)... Normal [facility] Comment on above: Result Comment: Elec tronically Signed By: Deepa [facility], Maia Montero.br\Date and Time Signed: 02/11/20 14:37 EDT Video [...] interactive video communications from my office using [employer] due to the restrictions of the COVID-19 pandemic. No physical exam was conducted other than those areas of the body visible to telecommunications with the patient located at [address] [place], [place] [phone], with no one else in attendance. If [...] Tobacco F (more content not included)... Normal [facility] Comment on above: Result Comment: Elec tronically Signed By: Deepa [facility], Maia Montero.mati\Date and Time Signed: 01/29/20 21:44 [...] interactive video communications from my office using [employer] due to the restrictions of the COVID-19 pandemic. No physical exam was conducted other than those areas of the body visible to telecommunications with the patient located at [address] [place] [address] [phone], with no one else in attendance. If [...] Yes, 09 (more content not included)... Normal [facility] Comment on above: Result Comment: Elec tronically Signed By: Deepa [facility]IZABETH HEBRONMaia\.mati\Date and Time Signed: 01/29/20 21:38 EDT Patient Educationon 01-28-20 20 Patient Education aripiprazole (AR i PIP ra welsh) Say Deal [employer] What is the [...] include drow (more content not included)... Normal [facility] Video Visit - Telehealtho n 01-13-2020 [...] interactive video communications from my office using [employer] due to the restrictions of the COVID-19 pandemic. No physical exam was conducted other than those areas of the body visible to telecommunications with the patient located at [address] [place] [phone], with no one else in attendance. If [...] Tobacco For (more content not included)... Normal [facility] Comment on above: Result Comment: Elec tronically Signed By: Deepa [facility], Maia Montero.mati\Date and Time Signed: 01/13/20 09:40 [...] include drow (more content not included)... Normal [facility] Video Visit - Telehealtho n 01-07-2020 [...] interactive video communications from my office using [employer] due to the restrictions of the COVID-19 pandemic. No physical exam was conducted other than those areas of the body visible to telecommunications with the patient located at [address] [place] [address] [phone], with no one else in attendance. If [...] Use:. N (more content not included)... Normal [facility] Comment on above: Result Comment: Elec tronically Signed By: Deepa [facility], Maia Peñaloza\Date and Time Signed: 01/07/20 12:38 EDT Video [...] interactive video communications from my office using [employer] due to the restrictions of the COVID-19 pandemic. No physical exam was conducted other than those areas of the body visible to telecommunications with the patient located at [address] [place], [place] [phone], with no one else in attendance. If [...] Father and (more content not included)... Normal [facility] Comment on above: Result Comment: Elec tronically Signed By: Deepa [facility], Maia Montero.mati\Date and Time Signed: 12/30/19 13:50 [...] interactive video communications from my office using [employer] due to the restrictions of the COVID-19 pandemic. No physical exam was conducted other than those areas of the body visible to telecommunications with the patient located at [address] [place] [address] [phone], with no one else in attendance. If [...] Alcohol U (more content not included)... Normal [facility] Comment on above: Result Comment: Elec tronically Signed By: Deepa [facility], Maia Ashley\.br\Date and Time Signed: 12/23/19 16:54 EDT Patient Educationon 12-23-19 20 Patient Education aripiprazole (AR i PIP ra welsh) [employer] What is the most [...] include drow (more content not included)... Normal [facility] Video Visit - Telehealtho n 12-04-2019 [...] interactive video communications from my office using [employer] due to the restrictions of the COVID-19 pandemic. No physical exam was conducted other than those areas of the body visible to telecommunications with the patient located at [address] [place] [address] [phone], with no one else in attendance. If [...] Daily, 5 (more content not included)... Normal [facility] Comment on above: Result Comment: Elec tronically Signed By: Deepa [facility], Maia Montero.br\Date and Time Signed: 12/04/19 09:42 EDT Patient [...] rate, h (more content not included)... Normal [facility] Vital Signs Date Time Vital Sign Value Performing Clinician Facility 08-18-2023 14:24-0400 Body height 160.02 cm [facility] 08-18-2023 14:24-0400 Body mass index (BMI) [Ratio] 40.2 kg/m2 [facility] 08-18-2023 14:24-0400 Body temperature 98.4 [degF] [facility] 08-18-2023 14:24-0400 Body weight 103.02 kg [facility] 08-18-2023 14:24-0400 Diastolic blood pressure 81 mm[Hg] [facility] 08-18-2023 14:24-0400 Heart rate 101 /min [facility] 08-18-2023 14:24-0400 Respiratory rate 16 /min [facility] 08-18-2023 14:24-0400 SaO2% (BldA) [Mass fraction] 98 % [facility] 08-18-2023 14:24-0400 Systolic blood pressure 133 mm[Hg] [facility] 04-27-2023 16:30-0500 Body height 160.02 cm Sanaz Lockwood Other [facility] [employer] Other 04-27-2023 16:30-0500 Body mass index (BMI) [Ratio] 40.92 kg/m2 Sanaz Lockwood Other [facility] Other 04-27-2023 16:30-0500 Body temperature 98.2 [degF] Sanaz Lockwood Other [facility] Other 04-27-2023 16:30-0500 Body weight 104.78 kg Sanaz Lockwood Other [facility] Other 04-27-2023 16:30-0500 Respiratory rate 18 /min Sanaz Lockwood Other [facility] Other 04-27-2023 16:30-0500 SaO2% (BldA) [Mass fraction] 99 % Sanaz Lockwood Other [facility] Other 05-10-2022 14:45-0500 Body height 160.02 cm Kaylah Guille Other [facility] Other 05-10-2022 14:45-0500 Body mass index (BMI) [Ratio] 38.97 kg/m2 Kaylah Han Other [facility] Other 05-10-2022 14:45-0500 Body temperature 99.3 [degF] Kaylah Han Other [facility] Other 05-10-2022 14:45-0500 Body weight 99.79 kg Kaylah Han Other [employer] Other 06-29-2019 22:40-0500 Pulse (Heart Rate) 84 /min [facility] 06-29-2019 22:40-0500 Pulse Oximetry 97 % [facility] 06-29-2019 22:35-0500 BP Diastolic 56 mm[Hg] [facility] 06-29-2019 22:35-0500 BP Systolic 100 mm[Hg] [facility] 06-29-2019 21:11-0500 BMI (Body Mass Index) 33.1 kg/m2 [facility] 06-29-2019 21:11-0500 Body Temperature 97.8 [degF] [facility] 06-29-2019 21:11-0500 Body weight 84.8 kg [facility] 06-29-2019 21:11-0500 Height 160.02 cm [facility] 06-29-2019 21:11-0500 Respiratory Rate 20 /min [facility] Encounters Encounter Date Encounter Type Care Provider Facility Start: 02-09-2024 End: 02-09-2024 Evaluation and management of inpatient [facility] Start: 02-08-2024 End: 02-09-2024 Evaluation and management of inpatient [facility] Start: 01-24-2024 End: 01-24-2024 ambulatory MAKENZIE SO Not Available Start: 01-03-2024 End: 01-03-2024 ambulatory GUERRERO DUQUE Not Available Start: 12-25-2023 End: 12-25-2023 ambulatory MAKENZIE SO Not Available Start: 11-24-2023 End: 11-24-2023 ambulatory MAKENZIE SO Not Available Start: 08-18-2023 End: 08-18-2023 ambulatory [facility] Work Phone: Start: 08-18-2023 End: 08-18-2023 Patient encounter procedure [facility] Work Phone: Start: 04-27-2023 End: 04-27-2023 ambulatory Sanaz Lockwood Other [employer] Other Start: 04-27-2023 Office outpatient visit 25 minutes Sanaz Lockwood [facility] Start: 05-10-2022 End: 05-10-2022 ambulatory Kaylah Han Other [employer] Other Start: 05-10-2022 Office outpatient ne w 20 minutes Kaylahpedrito Han [facility] Start: 04-27-2022 End: 04-27-2022 ambulatory KIMBERLYN XEI Facility:[facility] Start: 03-07-2022 End: 03-07-2022 ambulatory KIMBERLYN XIE Facility:[facility] Start: 09-23-[address] JAZIEL HILL Facility :[facility] Start: 06-29-2019 End: 06-29-2019 Emergency department patient visit Kimberlyn Xie [facility] Procedures Date Procedure Procedure Detail Performing Clinician Start: 08-18-2023 Quick Strep (POC) Plan of Treatment Date Care Activity Detail Author Patient Education Epinephrine (B y injection) Anaphylaxis (ED) General Allergic Reaction (ED) [facility] Patient referral [facility] Payers Date Payer Category Payer Unknown [id number] 2.16.84 [id number] 1987 Unknown [id number] 2.16.84 [id number] 1987 Unknown [id number] 2.16.84 [id number] 1987 Unknown [id number] 2.16.84 [id number] 1987 Unknown [id number] 2.16.84 [id number] 1987 Unknown [id number] 2.16.84 [id number] 1987 Unknown [id number] 2.16.84 [id number] 1987 Unknown [id number] 2.16.8 [id number] 1987 Unknown [id number] 2.16.8 [id number] 1957 Self-pay [id number] 1957 Unknown [id number] Private Health Insurance [id number] Self-pay Self Pay [id number] Social History Date Type Detail Facility Start: 06-29-2019 End: 08-18-2023 Tobacco smoking status CAIS Smoker (finding) [facility] Start: 1985 Sex Assigned At Female F [facility] Sex Assigned At Sex Assigned At Bir [employer] Other Goals Date Patient Goal Desired Activity [...] condition. Mar, Sore throat (ICD-10 - J02.9) [facility] Other 01-10-2023 Evaluation note* Encounter Date Diagnosis [...] weeks for the cough to go away [facility] Other 11-07-2022 NoteIndication: Abdominal pain. Comparison: None [...] Electronically authenticated by: SURJIT FREITAS Date: 2022-03-07 20:49[facility]11-19-2020 NoteI Staff This visit was conducted via phone communications from my office due to the restrictions of the COVID-19 pandemic. No physical exam was conducted due to audio only communication with the patient located at [address] [place] [address] [phone], with no one else. If it is determined that the patientshould be evaluated in person, the patient will be directed to the appropriate clinic or venue. Thepatient or their guardian verbally consented to this visit. Phone time was 15 minutes discussing health issues with counseling and coordination of care. Subjective Interval History/HPI Patient presents today for follow up via telehealth phone from [facility]. Patient started Latuda 20mg last evening with [...] anxiety, # 30 tab(s), Refills(s) 2, Pharmacy: [facility]/pharmacy #[id number], 161, cm, 12/23/19 10:18:00 EDT, Height/Length Dosing, 82, kg, 12/23/19 10:18:00 EDT, Weight Dosing Orders: lurasidone, 20 mg = 1 tab(s), Oral, Daily, with 350 calories; begin this dose first then progress to next dose of 40mg, X 1 week(s), # 7 tab(s), Refills(s) 0, Pharmacy: [facility]/pharmacy #[id number], 161, cm, 12/23/19 10:18:00 EDT, Height/Length Dosing, 82, kg, 12/23/19 10:... lurasidone, 40 mg = 1 tab(s), Oral, Daily, with 350 calories, # 30 tab(s), Refills(s) 1, [id number] 161, cm, 12/23/19 10:18:00 EDT, [...] (generalized anxiety disorder) Hidr (more content not included)...[facility] Comment: Electronically Signed By: Carlota RODRIGUEZ CNP\.br\Date and Time Signed: 03/19/20 14:27 [id number] NoteHPI Staff This visit was conducted via two-way, real-time interactive video communications from my office using [employer] due to the restrictions of the COVID-19 pandemic. No physical exam was conducted other than those areas of the body visible to telecommunications with the patient located at [address] [place] [address] [phone], with no one else in attendance. If [...] Ordered: TELEHEALTH Office Visit Level 3 Est [address]21 General Treatment Plan Maintain medication regimen _Improve [...] Employed, 03/18/2019 Home/Environment Lani (more content not included)...[facility] CenterComment [facility]: Result Comment: Electronically Signed By: Carlota RODRIGUEZ CNP\.mati\Date and Time Signed: 03/05/20 13:32 [id number] NoteI Staff This visit was conducted via two-way, real-time interactive video communications from my office using [employer] due to the restrictions of the COVID-19 pandemic. No physical exam was conducted other than those areas of the body visible to telecommunications with the patient located at [address] [place] [phone], with no one else in attendance. If [...] anxiety, # 30 tab(s), Refills(s) 1, [id number], cm, 12/23/19 10:18:00 EDT, Height/Length Dosing, 82, kg, 12/23/19 10:18:00 EDT, Weight Dosing alprazolam, 0.5 mg = 1 tab(s), Oral, TID, PRN for anxiety, # 30 tab(s), Refills(s) 1, Pharmacy: [facility]/pharmacy #[id number], 161, cm, 12/23/19 10:18:00 EDT, Height/Length Dosing, 82, kg, 12/23/19 10:18:00 EDT, Weight Dosing aripiprazole, See Instructions, 1.5 tab po qAM, # 30 tab(s), Refills(s) 2, Pharmacy: [facility]/pharmacy #[id number], 161, cm, 12/23/19 10:18:00 EDT, Height/Length Dosing, 82, kg, 12/23/19 10:18:00 EDT, Weight Dosing aripiprazole, See Instructions, 1 tab po qAM, # 30 tab(s), Refills(s) 5, Pharmacy: [facility]/pharmacy #[id number], 161, cm, 12/23/19 10:18:00 EDT, Height/Length Dosing, 82, kg, 12/23/19 10:18:00 EDT, Weight Dosing cyclobenzaprine, 10 mg = 1 tab(s), Oral, TID, PRN for spasm, # 30 tab(s), Refills(s) 1, Pharmacy: [facility]/pharmacy #[id number], 161, cm, 06/13/19 14:39:00 EST, Height/Length Measured, 82, kg, 06/13/19 14:39:00EST, Weight Measured cyclobenzaprine, 10 mg = 1 tab(s), Oral, TID, PRN for spasm, # 30 tab(s), Refills(s) 1, [id number] 161, cm, 12/23/19 10:18:00 EDT, Height/Length Dosing, 82, kg, 12/23/19 10:18:00 EDT, Weight Dosing General Treatment Plan Maintain medication regimen _Improve mood stability _Improve anxiety control _Improve social and interpersonal functioning Clinical Global Impression 62 Prognosis progressing Follow-up With When Contact Information Carlota RODRIGUEZ CNP In 4 weeks Additional Instructions: (more content not included)...[facility] HospitalComment on above:Result Comment: Electronically Signed By: Carlota RODRIGUEZ CNP\.br\Date and Time Signed: 01/27/20 22:35 [id number] NoteI Staff This visit was conducted via two-way, real-time interactive video communications from my office using [employer] due to the restrictions of the COVID-19 pandemic. No physical exam was conducted other than those areas of the body visible to telecommunications with the patient located at [address] [place] [address], with no one else in attendance. If [...] Ordered: TELEHEALTH Office Visit Level 3 Est 48050 General Treatment Plan Maintain medication regimen _Improve [...] Use:. Never Smokeless Tob (more content not included)...[facility] HospitalComment on above:Result Comment: Electronically Signed By: Carlota RODRIGUEZ CNP\.br\Date and Time Signed: 01/13/20 09:11 [id number] NoteI Staff This visit was conducted via two-way, real-time interactive video communications from my office using [employer] due to the restrictions of the COVID-19 pandemic. No physical exam was conducted other than those areas of the body visible to telecommunications with the patient located at [address] [place] [phone], with no one else in attendance. If [...] welbutrin reviewed past meds with patient, start abiangeliquefsalomon qAM. reviewed side effects of SGA meds including: Second generation antipsychotic medications can cause headache, drowsiness, agitation, dizziness, nausea, or extrapyramidal symptoms such as tremors, muscle spasms, slowness of movement or jerking of muscles. Orders: alprazolam, 0.5 mg = 1 tab(s), Oral, TID, PRN for anxiety, # 30 tab(s), Refills(s) 1, [id number], cm, 12/23/19 10:18:00 EDT, Height/Length Dosing, 82, kg, 12/23/19 10:18:00 EDT, Weight Dosing alprazolam, 0.5 mg = 1 tab(s), Oral, TID, PRN for anxiety, # 30 tab(s), Refills(s) 1, Pharmacy: [facility]/pharmacy #[id number], 161, cm, 06/13/19 14:39:00 EST, Height/Length Measured, 82, kg, 06/13/19 14:39:00 EST, Weight Measured aripiprazole, See Instructions, 1 tab po qAM, # 30 tab(s), Refills(s) 0, Pharmacy: [facility]/pharmacy #[id number], 161, cm, 12/23/19 10:18:00 EDT, [...] Allergies Bactrim Social History (more content not included)...[facility] HospitalComment on above:Result Comment: Electronically Signed By: Carlota RODRIGUEZ CNP\.mati\Date and Time Signed: 12/23/19 16:37 [id number] NoteI Staff This visit was conducted via two-way, real-time interactive video communications from my office using [employer] due to the restrictions of the COVID-19 pandemic. No physical exam was conducted other than those areas of the body visible to telecommunications with the patient located at [address] [place] [address], with no one else in attendance. If [...] q24hr, # 30 tab(s), Refills(s) 2, Pharmacy: [facility]/pharmacy #[id number],161, cm, 06/13/19 14:39:00 EST, Height/Length Measured, 82, kg, 06/13/19 14:39:00 EST, Weight Measured cyclobenzaprine, 10 mg = 1 tab(s), Oral, TID, PRN for spasm, # 30 tab(s), Refills(s) 1, Pharmacy: [facility]/pharmacy #[id number], 161, cm, 06/13/19 14:39:00 EST, Height/Length [...] Employment/School Employed, 03/18/2019 Home/Environment (more content not included)...[facility] HospitalComment on above:Result Comment: Electronically Signed By: Carlota RODRIGUEZ CNP\.br\Date and Time Signed: 12/02/19 16:38 EDTChief complaint+Reason for visit Narrative* Chief Complaint Nausea, diarrhea, fe zhou Reason for Visit Contact with and (guillen spected) exposure to covid-19 Sore throat [facility] Work Phone: Evaluation note* Diagnosis Onset Date Resolution Status Contact with and (suspected) exposure to covid-19 noneactive Sore throat noneactive [facility] Work Phone: History general Narrative - Reported* Type Description Date Medical History Bipolar Surgical History appendectomy Surgical History x 3 Hospitalization History see above surgical histo ry [facility] Other Advance Directives No Advanced Directives Records [...] may need to be seen by an residency director if you have other events like this without definite egg exposure. Summary Purpose Family History No Family History Records Found Relationship Condition Age at Onset Recorded Date/T alo father Diabetes mellitus Unknown Hypertension Unknown Additional Source Comments INFORMATION SOURCE (unrecogn ized section and content) DATE CREATED AUTHOR 10/30/2020 [facility] DATE CREATED AUTHOR AUTHOR'S ORGANIZ ATION 04/29/2022 [facility] DATE CREATED AUTHOR AUTHOR'S ORGANIZ ATION 01/26/2024 [facility] EPIC DATE CREATED AUTHOR AUTHOR'S ORGANIZ ATION 02/12/2024 [facility] REASON FOR VISIT (unrecogniz ed section and [...] BE BASED ON THE PRIMARY CLINICAL RECORDS. [facility] [employer] [facility]. provides no warranty or guarantee of the accuracy or completeness of information in this document.
== END 2024-02-14 12:01 | disposition home or self-care (01) ==
LOC: FBC 11:22
PROVIDERS: Admitting Provider Obstetrics & Gynecology; PCP Nurse Practitioner Family; Visit Provider Obstetrics & Gynecology
DX: O36.8120 Decreased fetal movements, second trimester, not applicable or unspecified (principal); Z3A.21 21 weeks gestation of pregnancy
CPT/HCPCS: 59025; 76815; G0378; G0379

== ENCOUNTER 2024-03-06 11:48 | Observation (INO) | payer BC, SELFPAY ==
--- OUTSIDE RECORDS SUMMARY | 2024-03-06 11:54 | XMS_ITS | CCD ---
Author Organization [facility] Inform ion Partnership [facility] Care Team Providers Care Presser All Around Name Role Phone Kimberlyn Xie Primary Care [...] Unavailable Kaylah Han Unavailable Sanaz Lockwood Unavailable No Pcp, No Pcp Primary Care Provider Unavailabl e Unavailable Primary Care Provider Unavailabl e JOHNATHAN RECINOS Attending Unavailable LIZA DUQUE Attending Unavailable JOHNATHAN RECINOS Attending Unavailable JOHNATHAN RECINOS Attending Unavailable NATO LLOYD Admitting Unavailable NATO LLOYD Attending Unavailable REF PROV, NOT IN SYSTEM Referring Unavaila ble NO PCP, NO PCP Primary Care Unavailable JOSSELINE DONOVAN Consulting Unavailable TEJ ZENG Referring Unavailable NO PCP, NO PCP Primary Care Unavailable MALENA CARDONA Attending Unavailable JOHNATHAN RECINOS R Referring Unavailable NO PCP, NO PCP Primary Care Unavailable JOHNATHAN RECINOS Referring Unavailable NO PCP, NO PCP Primary Care Unavailable MARTIN RILEY Referring Unavailable NO PCP, NO PCP Primary Care Unavailable Unavailable Unavailable Unavailable Allergies Allergy Classification Reported Allergen(s) Allergy Type Date of Onset Reaction(s) Facility (2 sources) egg extract Drug Allergy 08-18-19 [facility] (8 sources) Sulfamethoxazole; 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: [SULFAMETHOXAZOLE] Drug Allergy 08-18-19 [facility] (8 sources) Trimethoprim; 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: [TRIMETHOPRIM] Drug Allergy 08-18-19 24 [facility] (2 sources) Fish Containing Products Propensity to adverse reactions 08-18-19 Difficulty Breathing [facility] (1 source) Sulfamethoxazole / Trimethoprim Drug Allergy 02-04-[address] [facility] (5 sources) Sulfamethoxazole / Trimethoprim Drug Allergy 11-24-19 24 hives, Unknown [employer] Other (3 sources) Egg-Derived Products Drug Allergy 08-18-19 24 GI intolerance [facility] Medications Current Medications Medication Drug Class(es) Dates Sig (Normalized) Sig (Original) acetaminophen 500 mg oral tablet (2 sources) take 2 tablets by mouth every six hours as needed for pain acetaminophen (TYLENOL EXTRA STRENGTH) 500 mg tablet Take 2 tablets (1,000 mg total) by mouth every 6 (six) hours as needed for pain. Active [id number] 200 actuat albuterol 0.09 mg/actuat metered dose [...] MG PO Daily August 18, 2023 12:00am aspirin 81 mg delayed release oral tablet (4 sources) Platelet Aggregation Inhibitor, Nonsteroidal Anti-inflammatory Drug Start: 02-15-2024 aspirin 81 mg Indications: 21 weeks gestation of , Obesity affecting in second trimester, unspecified obesity type Take 1 tablet once a day and stop a week before delivery 30 tablet 6 02/15/2024 Active Control Pill (2 sources) Start: 06-29-2019 Control [...] hydrochloride 150 mg extended release oral tablet (4 sources) Aminoketone Start: 06-29-2019 take 75 mg by mouth once daily Bupropion Hcl Active 75 MG Oral Daily June 29, 2019 9:40pm Start: 06-29-2019 End: 08-18-2023 take 2 tablets by mouth once daily Bupropion Hcl (Wellbutrin Xl) 150 mg Tablet Extended Release 24 Hr Discontinued 75 MG PO Daily June 29, 2019 1:00am August 18, 2023 2:26pm buPROPion (WELLB UTRIN) 100 mg tablet Take 50 mg by mouth 2 (two) times a day. Active carBAMazepine 200 mg oral tablet (1 source) Mood Stabilizer Start: 08-18-2023 take 200 mg by mouth twice daily Carbamazepine Active 200 MG PO Twice daily August 18, 2023 12:00am cephalexin 500 mg oral capsule (4 sources) Cephalosporin Antibacterial Start: 02-24-2024 End: 08-22-2024 CEPHalexin (KEFLEX) 500 mg capsule Take 1 capsule (500 mg total) by mouth in the morning for 180 days. Take keflex 500mg once daily after finishing the 2 weeks of taking keflex 4 times a day This is for UTI suppression in . 90 capsule 1 02/24/2024 08/22/2024 Active Start: 02-09-2024 End: 02-23-2024 take 1 capsule by mouth every six hours CEPHalexin (KEFLEX) 500 mg capsule Take 1 capsule (500 mg total) by mouth every 6 (six) hours for 14 days. 56 capsule 02/09/2024 02/23/2024 Active dextromethorphan hydrobromide 15 mg / guaiFENesin 400 mg / pseudoephedrine hydrochloride 60 mg oral tablet (1 source) alpha-Adrenergic Agonist, Uncompetitive K-ermhjs-R-aspartate Receptor Antagonist, Sigma-1 Agonist Start: 04-27-2023 take 4 tablets by mouth every twenty-four hours as needed Capmist DM 60-15-400 MG as needed Orally every 4-6 hours as needed, max 4 tablets in 24 hours for 5 days Mar, Active [id number] 0.3 ml EPINEPHrine 1 mg/ml auto-injector (2 [...] Hcl Active 25 MG Oral Q6H 15 June 29, 2019 10:18pm hydrOXYzine HCl Active ketoconazole 20 mg/ml medicated shampoo (1 source) Azole Antifungal Start: 08-18-2023 Ketoconazole Active TOPICAL August 18, 2023 12:00am lamoTRIgine 200 mg oral tablet (10 sources) Mood Stabilizer, Anti-epileptic Agent Start: 08-18-2023 take 200 mg by mouth once daily Lamotrigine Active 200 MG PO Daily August 18, 2023 12:00am Start: 06-29-2019 End: 08-18-2023 take 100 mg by mouth once daily Lamotrigine Active 100 MG Oral Daily June 29, 2019 9:40pm take 8 tablets by mo uth in the morning lamoTRIgine (LaMICtal) 25 mg tablet Take 8 tablets (200 mg total) by mouth in the morning. Active LaMICtal Active loratadine 10 mg oral tablet (1 source) Start: 08-18-2023 take 10 mg by mouth once daily Loratadine Active 10 MG PO Daily August 18, 2023 12:00am lurasidone hydrochloride 40 mg oral tablet (8 sources) Atypical Antipsychotic Start: 10-18-2023 take 1 tablet by mouth at mealtime lurasidone (Latuda) 40 MG tablet Take 40 mg by mouth in the morning. Take with meals. 10/18/2023 Active Start: 08-18-2023 take 40 mg by mouth once daily Lurasidone Active 40 MG PO Daily August 18, 2023 12:00am lurasidone (LATU DA) 40 mg tablet Take 60 mg by mouth in the morning. Active Latuda Active magnesium oxide 400 mg oral tablet (3 sources) Start: 01-09-2024 End: 01-08-2025 take 1 tablet by mouth once daily magnesium oxide (Mag-Ox) 400 MG tablet Indications: Constipation during in second trimester Take 1 tablet (400 mg) by mouth Daily 30 tablet 11 01/09/2024 01/08/2025 Active omeprazole 40 mg delayed release oral [...] 2019 10:18pm administer with food or milk no115/iron/folic acid ( 19 ORAL) (2 sources) no115/i dayton/folic acid ( 19 ORAL) Take by mouth. Active rimegepant 75 mg disintegrating oral tablet (2 sources) Start: 08-18-2023 take 1 tablet by mouth once daily Rimegepant (Nurtec Odt) 75 mg tablet,disintegrating Active 75 MG PO Daily August 18, 2023 12:00am Nurtec 75 MG 1 t ablet on the tongue and allow to dissolve Orally Active 24 hr venlafaxine 37.5 mg extended release oral capsule (6 sources) Serotonin and Norepinephrine Reuptake Inhibitor Start: 08-31-2023 take 1 capsule by mouth once daily venlafaxine XR (Effexor XR) 37.5 MG 24 hr capsule Take 37.5 mg by mouth Daily 08/31/2023 Active Start: 08-18-2023 take 75 mg by mouth once daily Venlafaxine Active 75 MG PO Daily August 18, 2023 12:00am take 1 capsule by md ut every twenty-four hours in the morning venlafaxine XR (EFFEXOR XR) 37.5 mg 24 hr capsule Take 1 capsule (37.5 mg total) by mouth in the morning. Active ziprasidone 80 mg oral capsule (2 sources) Atypical Antipsychotic ziprasido ne (GEODON) 80 mg capsule Take 120 mg by mouth 2 (two) times a day with meals. 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; 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: [OTH CONTROLS DESIGNER CURRENT DRUG THERAPY] Onset: 04-29-2022 Episodic Other complications of (4 sources) Maternal obesity complicating , childbirth and the puerperium, antepartum; 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: [Obesity complicating , second trimester] Onset: 02-15-2024 02-15-2024 Chronic Other complications of (1 source) Obesity complicating , second trimester; 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: [Obesity complicating , second trimester] Onset: 02-15-2024 Chronic Other complications of (1 source) Obesity complicating , unspecified trimester; 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: [Obesity complicating , unspecified trimester] Onset: 02-08-2024 Chronic Other complications of (3 sources) Pyelonephritis in ; 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: [Infections of kidney in , unspecified trimester] Onset: 02-08-2024 02-08-2024 Episodic Other complications of (1 source) Multigravida of advanced maternal age; 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: [Supervision of elderly multigravida, second trimester] 02-15-2024 Episodic Other complications of (2 sources) Bipolar disorder; 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: [Other mental disorders complicating , second trimester] Onset: 02-15-2024 02-15-2024 Episodic Other complications of (2 sources) Supervision of with other poor reproductive or obstetric history, unspecified trimester; 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: [Supervision of other high-risk ] Onset: 02-15-2024 02-15-2024 Episodic Other complications of (1 source) H/O: premature delivery; 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: [Supervision of other high risk pregnancies, unspecified trimester] 02-15-2024 Episodic Other complications of (1 source) Supervision [...] BMI 38.0-38.9 ADULT] Onset: 03-09-2022 Chronic Other nutritional; endocrine; and metabolic disorders (1 source) Body mass index 30+ - obesity; 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: [Body mass index (BMI) 39.0-39.9, adult] 02-15-2024 Chronic Other and delivery including normal (2 sources) Second trimester ; 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: [Encounter for supervision of normal , unspecified, second trimester] 02-21-2024 Episodic Other screening for suspected conditions (not mental disorders or infectious disease) (4 sources) Patient encounter status; 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: [Encounter for screening for diabetes mellitus] Onset: 02-08-2024 02-21-2024 Episodic Other upper respiratory infections (3 sources) [...] OTH PART DIGESTV TRACT] Onset: 04-29-2022 Episodic Residual codes; unclassified (3 sources) Gestation period, 21 weeks; 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: [21 weeks gestation of ] 02-15-2024 Episodic Residual codes; unclassified (2 sources) Nicotine-filled electronic cigarette user; 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: [Tobacco use] Onset: 02-15-2024 02-15-2024 Episodic Residual codes; unclassified (2 sources) Gestation period, 22 weeks; 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: [22 weeks gestation of ] 02-21-2024 Episodic Residual codes; unclassified (1 source) 21 weeks gestation of ; 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: [21 weeks gestation of ] Onset: 02-15-2024 Episodic Substance-related disorders (1 source) Nicotine dependence, [...] Test Name Value Interpretation Reference Range Facility Urinalysis macro (dipstick) panel (U)on 02-21-2024 Bilirubin, UA Negative Negative - 4(70) +++ mg/dL [facility] Blood, UA Negative Negative - 50 Slick/mcL [facility] Clarity, UA Clear [facility] Color, UA Yellow [facility] Glucose, UA Negative Negative - 2000(110) ++++ mg/dL [facility] Interpretation and review of laboratory results Abnormal [facility] Ketones, UA Negative Negative - 160(16) ++++ mg/dL [facility] Leukocytes, UA Trace Negative - 500+++ Mira/mcL [facility] Nitrite, UA Negative Negative - Positive [facility] pH, UA 5.5 5 - 9 [facility] Protein, UA Negative Negative - 2000(20) ++++ mg/dL [facility] Spec Grav, UA 1.01 1 - 1.03 [facility] Urobilinogen, UA 0.2 0.2 - 12 mg/dL [facility] CBC AND AUTO DIFFon 02-09-20 24 ABSOLUTE BASOPHIL 0.0 X10E9/L Normal 0.0-0.2 [facility] Comment on above: Performed By: #### Tori OG CMP, 22077-5 #### [facility] ([id number]) [address], [address] [place] [address] ABSOLUTE NEUTROPHIL 5.4 X10E9/L Normal 1.5-6.6 [facility] Comment on above: Performed By: #### Tori OG CMP, 36782-0 #### [facility] ([id number]) [address], [address] [place] [address] Basophils/100 WBC (Bld) 0.2 % Normal [facility] Comment on above: Performed By: #### Tori OG CMP, 62251-3 #### [facility] ([id number]) [address], [address] [place] [address] Eosinophils (Bld) [#/Vol] 0.1 10*3/uL Normal 0.0-0.4 [facility] Comment on above: Performed By: #### Tori OG CMP, 47053-1 #### [facility] ([id number]) [address], [address] [place] [address] Eosinophils/100 WBC (Bld) 0.9 % Normal [facility] Comment on above: Performed By: #### Tori OG CMP, 82255-0 #### [facility] ([id number]) [address], [address] [place] [address] Erythrocyte distribution width (RBC) [Ratio] 14.3 % Normal 11.5-15.0 [facility] Comment on above: Performed By: #### C EARLE, CMP, 73970-6 #### [facility] ([id number]) [address], [facility] [address] [place] [address] Hematocrit (Bld) [Volume fraction] 30.3 % Low 35-47 [facility] Comment on above: Performed By: #### Tori OG, CMP, 32335-2 #### [facility] ([id number]) [address], [facility] [address] [place] [address] Hemoglobin (Bld) [Mass/Vol] 10.3 g/dL Low 11.7-15.5 [facility] Comment on above: Performed By: #### Tori OG, CMP, 81562-9 #### [facility] ([id number]) [address], [facility] [address] [place] [address] Lymphocytes (Bld) [#/Vol] 1.7 10*3/uL Normal 1.0-3.5 [facility] Comment on above: Performed By: #### Tori OG, CMP, 22147-5 #### [facility] ([id number]) [address], [facility] [address] [place] [address] Lymphocytes/100 WBC (Bld) 22.0 % Normal [facility] Comment on above: Performed By: #### C EARLE, CMP, 36636-1 #### [facility] ([id number]) [address] [address] [place] [address] MCH (RBC) [Entitic mass] 31.3 pg Normal 27-34 [facility] Comment on above: Performed By: #### Tori OG, CMP, 99247-2 #### [facility] ([id number]) [address], [address] [place], [place] [address] MCHC (RBC) [Mass/Vol] 34.0 g/dL Normal 32-36 [facility] Comment on above: Performed By: #### C EARLE, CMP, 85534-6 #### [facility] ([id number]) [address], [address] [place], [place] [address] MCV (RBC) [Entitic vol] 92 fL Normal 80-100 [facility] Comment on above: Performed By: #### C EARLE, CMP, 47307-6 #### [facility] ([id number]) [address], [address] [place] [address] Monocytes (Bld) [#/Vol] 0.5 10*3/uL Normal 0-0.9 [facility] Comment on above: Performed By: #### Tori OG, CMP, 32241-6 #### [facility] ([id number]) [address], [address] [place] [address] Monocytes/100 WBC (Bld) 7.0 % Normal [facility] Comment on above: Performed By: #### Tori OG, CMP, 01339-0 #### [facility] ([id number]) [address], [address] [place] [address] Neutrophils/100 WBC (Bld) 69.9 % Normal [facility] Comment on above: Performed By: #### Tori BCA, CMP, 53984-8 #### [facility] ([id number]) [address], [address] [place] [address] Platelet mean volume (Bld) [Entitic vol] 8.8 fL Normal 7-12 [facility] Comment on above: Performed By: #### C BCA, CMP, 78270-0 #### [facility] ([id number]) [address], [address] [place] [address] Platelets (Bld) [#/Vol] 259 10*3/uL Normal 150-450 [facility] Comment on above: Performed By: #### C BCA, CMP, 49305-1 #### [facility] ([id number]) [address], [address] [place] [address] RBC COUNT 3.29 X10E12/L Low 3.80-5.20 [facility] Comment on above: Performed By: #### C BCA, CMP, 66089-2 #### [facility] ([id number]) [address], [address] [place] [address] WBC (Bld) [#/Vol] 7.7 10*3/uL Normal 4.0-11.0 [facility] Comment on above: Performed By: #### C BCA, CMP, 05952-2 #### [facility] ([id number]) [address], [address] [place] [address] COMPREHENSIVE METABOLIC PANE Paco 02-09-2024 Albumin [Mass/Vol] 2.9 g/dL Low 3.2-5.3 [facility] Comment on above: Performed By: #### C BCA, CMP, 15026-6 #### [facility] ([id number]) [address], [address] [place] [address] ALP [Catalytic activity/Vol] 118 U/L Normal 39-130 [facility] Comment on above: Performed By: #### C BCA, CMP, 25355-5 #### [facility] ([id number]) [address], [address] [place] [address] ALT [Catalytic activity/Vol] 6 U/L Normal 0-31 [facility] Comment on above: Performed By: #### C BCA, CMP, 04967-9 #### [facility] ([id number]) [address], [address] [place] [address] Anion gap [Moles/Vol] 10 mmol/L Normal 5-15 [facility] Comment on above: Performed By: #### C BCA, CMP, 03495-5 #### [facility] ([id number]) [address], [address] [place] [address] AST [Catalytic activity/Vol] 9 U/L Normal 0-41 [facility] Comment on above: Performed By: #### C BCA, CMP, 85773-7 #### [facility] ([id number]) [address], [address] [place] [address] Bilirubin [Mass/Vol] 0.4 mg/dL Normal 0.3-1.2 [facility] Comment on above: Performed By: #### C BCA, CMP, 85097-8 #### [facility] ([id number]) [address], [address] [place] [address] Calcium [Mass/Vol] 8.5 mg/dL Normal 8.5-10.5 [facility] Comment on above: Performed By: #### C BCA, CMP, 61370-4 #### [facility] ([id number]) [address] [place] [address] Chloride [Moles/Vol] 105 mmol/L Normal 98-109 [facility] Comment on above: Performed By: #### C BCA, CMP, 79853-0 #### [facility] ([id number]) [address], [address] [place] [address] CO2 [Moles/Vol] 22 mmol/L Normal 22-32 [facility] Comment on above: Performed By: #### C BCA, CMP, 07358-1 #### [facility] ([id number]) [address], [address] [place] [address] Creatinine [Mass/Vol] 0.45 mg/dL Normal 0.40-1.00 [facility] Comment on above: Result Comment: METH OD TRACEABLE TO IDMS STANDARD Performed By: #### C BCA, CMP, 49634-8 #### [facility] ([id number]) [address] [address] [place] [address] eGFR (CKD-EPI) NON-RACE DEPENDENT >90 Normal >59 [facility] Comment on above: Result Comment: Reported eGFR is based on the CKD-EPI 2020 equation that does not use a race coefficient. Performed By: #### C BCA CMP, 09368-7 #### [facility] ([id number]) [address] [address] [place] [address] Glucose [Mass/Vol] 84 mg/dL Normal 65-99 [facility] Comment on above: Performed By: #### C EARLE CMP, 26186-0 #### [facility] ([id number]) [address] [address] [place] [address] Potassium [Moles/Vol] 3.7 mmol/L Normal 3.5-5.0 [facility] Comment on above: Performed By: #### C EARLE, CMP, 14186-4 #### [facility] ([id number]) [address] [address] [place] [address] Protein [Mass/Vol] 6.0 g/dL Normal 6.0-8.0 [facility] Comment on above: Performed By: #### C EARLE CMP, 77026-8 #### [facility] ([id number]) [address] [address] [place] [address] Sodium [Moles/Vol] 137 mmol/L Normal 134-146 [facility] Comment on above: Performed By: #### C BCA CMP, 60531-3 #### [facility] ([id number]) [address] [address] [place] [address] Urea nitrogen [Mass/Vol] 5 mg/dL Normal 5-23 [facility] Comment on above: Performed By: #### C BCA, CMP, 24367-1 #### [facility] ([id number]) [address] [place] [address] MAGNESIUMon 02-09-2024 Magnesium [Mass/Vol] 1.6 mg/dL Low 1.8-2.6 [facility] Comment on above: Performed By: #### C BCA, CMP, 47043-0 #### [facility] ([id number]) [address] [place] [address] PHOSPHORUSon 02-09-2024 Phosphate [Mass/Vol] 4.5 mg/dL Normal 2.4-4.9 [facility] Comment on above: Performed By: #### C BCA, CMP, 88303-9 #### [facility] ([id number]) [address], [address] [place] [address] US RETROPERITONEAL LIMITEDon 02-09-2024 US RETROPERITONEAL LIMITED [...] Andrade MD on 02/09/2024 10:14 AM Normal [facility] BLOOD CULTUREon 02-08-2024 Bacteria identified Aer cx Nom (Bld) SPECIMEN NOTES SUBOPTIMAL VOLUME OF BLOOD COLLECTED, RESULTS MAY BE AFFECTED. CULTURE RESULTS NO GROWTH 5 DAYS Normal [facility] Comment on above: Performed By: #### C EARLE CMP, 94036-6 #### [facility] ([id number]) [address], [address] [place] [address] Bacteria identified Aer cx Nom (Bld) SPECIMEN NOTES SUBOPTIMAL VOLUME OF BLOOD COLLECTED, RESULTS MAY BE AFFECTED. CULTURE RESULTS NO GROWTH 5 DAYS Normal [facility] Comment on above: Performed By: #### 1 7928-3 #### [facility] ([id number]) [address], [address] [address] CBC AND AUTO DIFFon 10-10-20 24 ABSOLUTE BASOPHIL 0.0 X10E9/L Normal 0.0-0.2 [facility] Comment on above: Performed By: #### Tori OG CMP, 60964-9 #### [facility] ([id number]) [address] [address] [place] [address] ABSOLUTE NEUTROPHIL 9.5 X10E9/L High 1.5-6.6 [facility] Comment on above: Performed By: #### Tori OG CMP, 41041-1 #### [facility] ([id number]) [address], [address] [address] Basophils/100 WBC (Bld) 0.0 % Normal [facility] Comment on above: Performed By: #### Tori OG CMP, 87729-2 #### [facility] ([id number]) [address], [facility] [address] [place] [address] Eosinophils (Bld) [#/Vol] 0.0 10*3/uL Normal 0.0-0.4 [facility] Comment on above: Performed By: #### Tori OG CMP, 43360-8 #### [facility] ([id number]) [address] [address] [place] [address] Eosinophils/100 WBC (Bld) 0.0 % Normal [facility] Comment on above: Performed By: #### Tori OG CMP, 19044-0 #### [facility] ([id number]) [address], [address] [place] [address] Erythrocyte distribution width (RBC) [Ratio] 14.5 % Normal 11.5-15.0 [facility] Comment on above: Performed By: #### C BCA, CMP, 45529-1 #### [facility] ([id number]) [address], [facility] [address] [place] [address] Hematocrit (Bld) [Volume fraction] 31.3 % Low 35-47 [facility] [facility] Comment on above: Performed By: #### Tori OG, CMP, 46687-7 #### [facility] ([id number]) [address] [place] [address] Hemoglobin (Bld) [Mass/Vol] 10.6 g/dL Low 11.7-15.5 [facility] Comment on above: Performed By: #### Tori OG, CMP, 96475-1 #### [facility] ([id number]) [address], [facility] [address] [place] [address] Lymphocytes (Bld) [#/Vol] 1.1 10*3/uL Normal 1.0-3.5 [facility] Comment on above: Performed By: #### Tori OG, CMP, 39877-0 #### [facility] ([id number]) [address] [place] [address] Lymphocytes/100 WBC (Bld) 9.4 % Normal [facility] Comment on above: Performed By: #### C BCA, CMP, 36914-9 #### [facility] ([id number]) [address], [address] [place] [address] MCH (RBC) [Entitic mass] 30.8 pg Normal 27-34 [facility] Comment on above: Performed By: #### C BCA, CMP, 42935-0 #### [facility] ([id number]) [address], [address] [place] [address] MCHC (RBC) [Mass/Vol] 33.9 g/dL Normal 32-36 [facility] Comment on above: Performed By: #### Tori OG, CMP, 31943-0 #### [facility] ([id number]) [address], [address] [place], [place] [address] MCV (RBC) [Entitic vol] 91 fL Normal 80-100 [facility] Comment on above: Performed By: #### C EARLE, CMP, 62587-6 #### [facility] ([id number]) [address], [address] [place] [address] Monocytes (Bld) [#/Vol] 0.9 10*3/uL Normal 0-0.9 [facility] Comment on above: Performed By: #### Tori OG, CMP, 94629-7 #### [facility] ([id number]) [address] [place] [address] Monocytes/100 WBC (Bld) 8.2 % Normal [facility] Comment on above: Performed By: #### Tori OG, CMP, 77928-8 #### [facility] ([id number]) [address] [place] [address] Neutrophils/100 WBC (Bld) 82.4 % Normal [facility] Comment on above: Performed By: #### Tori BCA, CMP, 97847-7 #### [facility] ([id number]) [address], [address] [place] [address] Platelet mean volume (Bld) [Entitic vol] 8.5 fL Normal 7-12 [facility] Comment on above: Performed By: #### Tori BCA, CMP, 43289-9 #### [facility] ([id number]) [address] [place] [address] Platelets (Bld) [#/Vol] 246 10*3/uL Normal 150-450 [facility] Comment on above: Performed By: #### C BCA, CMP, 70584-6 #### [facility] ([id number]) [address] [place] [address] RBC COUNT 3.44 X10E12/L Low 3.80-5.20 [facility] Comment on above: Performed By: #### C BCA, CMP, 27794-8 #### [facility] ([id number]) [address] [place] [address] WBC (Bld) [#/Vol] 11.5 10*3/uL High 4.0-11.0 [facility] Comment on above: Performed By: #### C BCA, CMP, 85143-7 #### [facility] ([id number]) [address] [place] [address] COMPREHENSIVE METABOLIC PANE Paco 02-08-2024 Albumin [Mass/Vol] 3.1 g/dL Low 3.2-5.3 [facility] Comment on above: Performed By: #### C BCA, CMP, 67355-8 #### [facility] ([id number]) [address] [place] [address] ALP [Catalytic activity/Vol] 100 U/L Normal 39-130 [facility] Comment on above: Performed By: #### C BCA, CMP, 71293-3 #### [facility] ([id number]) [address] [place] [address] ALT [Catalytic activity/Vol] 7 U/L Normal 0-31 [facility] Comment on above: Performed By: #### C BCA, CMP, 91181-3 #### [facility] ([id number]) [address] [place] [address] Anion gap [Moles/Vol] 12 mmol/L Normal 5-15 [facility] Comment on above: Performed By: #### C BCA, CMP, 49660-8 #### [facility] ([id number]) [address] [place] [address] AST [Catalytic activity/Vol] 8 U/L Normal 0-41 [facility] Comment on above: Performed By: #### C BCA, CMP, 40111-3 #### [facility] ([id number]) [address] [place] [address] Bilirubin [Mass/Vol] 0.5 mg/dL Normal 0.3-1.2 [facility] Comment on above: Performed By: #### C BCA, CMP, 43188-1 #### [facility] ([id number]) [address] [place], [place] [address] Calcium [Mass/Vol] 8.3 mg/dL Low 8.5-10.5 [facility] Comment on above: Performed By: #### C BCA, CMP, 86728-3 #### [facility] ([id number]) [address] [place] [address] Chloride [Moles/Vol] 104 mmol/L Normal 98-109 [facility] Comment on above: Performed By: #### C BCA, CMP, 67242-6 #### [facility] ([id number]) [address] [place] [address] CO2 [Moles/Vol] 20 mmol/L Low 22-32 [facility] Comment on above: Performed By: #### C BCA, CMP, 28265-4 #### [facility] ([id number]) [address] [place] [address] Creatinine [Mass/Vol] 0.53 mg/dL Normal 0.40-1.00 [facility] Comment on above: Result Comment: METH OD TRACEABLE TO IDMS STANDARD Performed By: #### C BCA, CMP, 65386-9 #### [facility] ([id number]) [address] [address] [place] [address] eGFR (CKD-EPI) NON-RACE DEPENDENT >90 Normal >59 [facility] Comment on above: Result Comment: Reported eGFR is based on the CKD-EPI 2020 equation that does not use a race coefficient. Performed By: #### C BCA CMP, 40345-1 #### [facility] ([id number]) [address] [address] [place] [address] Glucose [Mass/Vol] 115 mg/dL High 65-99 [facility] Comment on above: Performed By: #### C EARLE CMP, 42275-3 #### [facility] ([id number]) [address] [address] [place], [place] [address] Potassium [Moles/Vol] 3.6 mmol/L Normal 3.5-5.0 [facility] Comment on above: Performed By: #### C EARLE CMP, 98879-3 #### [facility] ([id number]) [address] [address] [place] [address] Protein [Mass/Vol] 6.1 g/dL Normal 6.0-8.0 [facility] Comment on above: Performed By: #### C EARLE CMP, 76351-6 #### [facility] ([id number]) [address] [address] [place] [address] Sodium [Moles/Vol] 136 mmol/L Normal 134-146 [facility] Comment on above: Performed By: #### C BCA CMP, 42998-7 #### [facility] ([id number]) [address] [address] [place] [address] Urea nitrogen [Mass/Vol] 3 mg/dL Low 5-23 [facility] Comment on above: Performed By: #### C BCA, CMP, 97970-6 #### [facility] ([id number]) [address] [place] [address] DRUG SCREEN, URINEon 024 AMPHETAMINE/METHAMP Negative Normal NEG [facility] Comment on above: Result Comment: AMPH /METH screening cut off = 1000 ng/mL Performed By: #### D GUILLEN #### [facility] ([id number]) [address] [place] [address] BARBITURATES Negative Normal NEG [facility] Comment on above: Result Comment: Megan iturates screening cut off value = 200 ng/mL Performed By: #### D GUILLEN #### [facility] ([id number]) [address] [place] [address] BENZODIAZEPINES Negative Normal NEG [facility] Comment on above: Result Comment: Giorgio odiazepines screening cut off value = 200 ng/mL Performed By: #### D GUILLEN #### [facility] ([id number]) [address] [place] [address] CANNABINOIDS Negative Normal NEG [facility] Comment on above: Result Comment: Elsie abinoids/THC screening cut off value = 50 ng/mL Performed By: #### D GUILLEN #### [facility] ([id number]) [address] [place] [address] COCAINE METABOLITE Negative Normal NEG [facility] Comment on above: Result Comment: Coca ine screening cut off value = 300 ng/mL Performed By: #### D GUILLEN #### [facility] ([id number]) [address] [place] [address] ECSTASY Negative Normal NEG [facility] Comment on above: Result Comment: Ecst asy screening cut off value = 500 ng/mL This report is intended for use in clinical monitoring or management of patients. Performed By: #### D GUILLEN #### [facility] ([id number]) [address] [place] [address] METHADONE Negative Normal NEG [facility] Comment on above: Result Comment: Meth adone screening cut off value = 300 ng/mL. Performed By: #### D GUILLEN #### [facility] ([id number]) [address] [place] [address] OPIATES Negative Normal NEG [facility] Comment on above: Result Comment: Opia joey screening cut off value = 300 ng/mL NOTE: This test is used for the detection of codeine, hydrocodone (>1000 ng/mL), morphine and hydromorphone (>900 ng/mL) in urine. Performed By: #### D GUILLEN #### [facility] ([id number]) [address] [facility] [place] [address] OXYCODONE Negative Normal NEG [facility] Comment on above: Result Comment: Oxyc odone screening cut off value = 300 ng/mL NOTE: This test is used for the detection of oxycodone and oxymorphone in urine. Performed By: #### D GUILLEN #### [facility] ([id number]) [address] [facility] [place] [address] PHENCYCLIDINE Negative Normal NEG [facility] Comment on above: Result Comment: Phen cyclidine screening cut off value = 25 ng/mL Performed By: #### D GUILLEN #### [facility] ([id number]) [address] [place] [address] Glucose Glucometer (BldC) [M ass/Vol]on 02-08-2024 Glucose [Mass/Vol] 107 mg/dL High 65-99 [facility] Lactate (P melvin) [Moles/Vol]o n 02-08-2024 LACTATE W/REFLEX 1.0 mmol/L Normal 0.4-2.0 [facility] Comment on above: Result Comment: Result did not trigger repeat Lactate, re-order if needed. Performed By: #### 3 2133-1, 00282-8 #### [facility] ([id number]) [address], [address] [place] [address] LACTATE W/REFLEX 0.8 mmol/L Normal 0.4-2.0 [facility] Comment on above: Result Comment: Result did not trigger repeat Lactate, re-order if needed. Performed By: #### C BCA, CMP, 41842-6 #### [facility] ([id number]) [address] [place] [address] Procalcitonin IA [Mass/Vol]o n 02-08-2024 PROCALCITONIN 0.74 ng/mL High <0.05 [facility] Comment on above: Result Comment: NOTE <0.50 ng/mL - Low risk of severe sepsis and/or septic shock. <2.00 ng/mL - Recommend retesting within 6-24 hours. >2.00 ng/mL - High risk of sepsis and/or septic shock. Performed By: #### 3 3-1, 56672-6 #### [facility] ([id number]) [address] [place] [address] URINALYSISon 02-08-2024 Bilirubin Ql (U) Negative Normal NEG [facility] Comment on above: Performed By: #### U A #### [facility] ([id number]) [address] [place] [address] BLOOD/HGB Small Abnormal NEG [facility] Comment on above: Performed By: #### U A #### [facility] ([id number]) [address] [place] [address] Color (U) YELLOW Normal YELLOW [facility] Comment on above: Performed By: #### U A #### [facility] ([id number]) [address] [place] [address] Glucose Ql (U) Negative Normal NEG [facility] Comment on above: Performed By: #### U A #### [facility] ([id number]) [address] [place] [address] Ketones Ql (U) 20 mg/dL Abnormal NEG [facility] Comment on above: Performed By: #### U A #### [facility] ([id number]) [address] [place] [address] Leukocyte esterase Test strip Ql (U) Negative Normal NEG [facility] Comment on above: Performed By: #### U A #### [facility] ([id number]) [address] [place] [address] MUCOUS PRESENT Abnormal NONE [facility] Comment on above: Performed By: #### U A #### [facility] ([id number]) [address] [place] [address] Nitrite Ql (U) Negative Normal NEG [facility] Comment on above: Performed By: #### U A #### [facility] ([id number]) [address] [place] [address] pH (U) 8.0 [pH] Normal 5.0-8.5 [facility] Comment on above: Performed By: #### U A #### [facility] ([id number]) [address] [place] [address] Protein Ql (U) Trace Abnormal NEG [facility] Comment on above: Performed By: #### U A #### [facility] ([id number]) [address] [place] [address] R.B.CELLS 16 /hpf High 0-5 [facility] Comment on above: Performed By: #### U A #### [facility] ([id number]) [address] [place] [address] Specific gravity (U) [Rel density] 1.012 Normal 1.003-1.035 [facility] Comment on above: Performed By: #### U A #### [facility] ([id number]) [address] [place] [address] SQUAMOUS EPITHELIUM 1 /hpf Normal 0-5 [facility] Comment on above: Performed By: #### U A #### [facility] ([id number]) [address] [place] [address] TRANSITIONAL EPITH <[address] [facility] Comment on above: Performed By: #### U A #### [facility] ([id number]) [address] [place] [address] TURBIDITY CLEAR Normal CLEAR [facility] Comment on above: Performed By: #### U A #### [facility] ([id number]) [address] [place] [address] Urobilinogen Qn (U) 2 {Blanca'U}/dL High <1.1 [facility] Comment on above: Performed By: #### U A #### [facility] ([id number]) [address] [place] [address] W.B.CELLS 2 /hpf Normal 0-5 [facility] Comment on above: Performed By: #### U A #### [facility] ([id number]) [address] [address] [place] [address] URINE CULTUREon 02-08-2024 Bacteria identified Cx Nom (U) CULTURE RESULTS NO GROWTH AT <1000 CFU/mL Normal [facility] Comment on above: Performed By: #### C BCA, CMP, 47056-2 #### [facility] ([id number]) [address] [place] [address] XR CHEST 1 VWon 02-08-2024 XR CHEST [...] Rubi MD on 02/08/2024 9:35 AM Normal [facility] No Panel InformationOrdered By: Sanaz Lockwood on 08-18-2023 Quick Strep (POC) [facility] COVID + FLU Quick Testingon 04-27-2023 SARS-CoV-2 (COVID-19) RNA J LUIS+probe Ql (Unsp spec) Negative [facility] Other COVID + FLU Quick Testing Negative [employer] Other Quick Strepon 04-27-2023 S. pyogenes Org specific cx Ql (Throat) Negative [employer] [facility] Other Quick Strep [employer] [facility] Other COVID/FLU/RSV RT-PCRon 05-10 SARS-CoV-2 (COVID-19) RNA J LUIS+probe Ql (Unsp spec) Negative [employer] Other COVID/FLU/RSV RT-PCR Positive [employer] Other COVID/FLU/RSV RT-PCR Negative [employer] Other CBC AUTO DIFFon 04-27-2022 BASO # 0.0 103/ul Normal 0.0-0.1 [facility] Comment on above: Performed By: #### C BC #### [facility] [address] [address] [address] Dee Humphrey Basophils/100 WBC (Bld) 0.2 % Normal 0.2-2.0 [facility] Comment on above: Performed By: #### C BC #### [facility] [address] [address] [address] Dee Humphrey EO # 0.1 103/ul Normal 0.0-0.7 [facility] Comment on above: Performed By: #### C BC #### [facility] [address] [place] [address] Dr. Dee Humphrey Eosinophils/100 WBC (Bld) 0.6 % Critically low 0.9-7.0 [facility] Comment on above: Performed By: #### C BC #### [facility] [address] [place] [address] Dr. Dee Humphrey Erythrocyte distribution width (RBC) [Ratio] 14.1 % Normal 11.0-15.0 [facility] Comment on above: Performed By: #### C BC #### [facility] [address] [place] [address] Dr. Dee Humphrey Hematocrit (Bld) [Volume fraction] 37.1 % Normal 36.0-48.0 [facility] Comment on above: Performed By: #### C BC #### [facility] [address] [place] [address] Dr. Dee Humphrey Hemoglobin (Bld) [Mass/Vol] 12.4 g/dL Normal 12.0-16.0 [facility] Comment on above: Performed By: #### C BC #### [facility] [address] [place] [address] Dr. Dee Humphrey IG # 0.06 10e3/ul Critically high 0.00-0.03 [facility] Comment on above: Performed By: #### C BC #### [facility] [address] [place] [address] Dr. Dee Humphrey IG % 0.5 % Normal 0.0-0.5 [facility] Comment on above: Performed By: #### C BC #### [facility] [address] [place] [address] Dr. Dee Humphrey LYMPH # 3.7 103/ul Normal 1.2-3.[address] [facility] Comment on above: Performed By: #### C BC #### [facility] [address] [place] [address] Dr. Dee Humphrey Lymphocytes/100 WBC (Bld) 28.7 % Normal 20.5-60.0 [facility] Comment on above: Performed By: #### C BC #### [facility] [address] [place] [address] Dr. Dee Humphrey MANUAL DIFF REQ NO Normal [facility] Comment on above: Performed By: #### C BC #### [facility] [address] [place] [address] Dr. Dee Humphrey MCH (RBC) [Entitic mass] 30.2 pg Normal 26.7-34.0 [facility] Comment on above: Performed By: #### C BC #### [facility] [address] [place] [address] Dr. Dee Humphrey MCHC (RBC) [Mass/Vol] 33.4 g/dL Normal 29.9-35.2 [facility] Comment on above: Performed By: #### C BC #### [facility] [address] [place] [address] Dr. Dee Humphrey MCV (RBC) [Entitic vol] 90.5 fL Normal 81.0-99.0 [facility] Comment on above: Performed By: #### C BC #### [facility] [address] [place] [address] Dr. Dee Humphrey MONO # 0.7 103/ul Normal 0.3-0.8 [facility] Comment on above: Performed By: #### C BC #### [facility] [address] [place] [address] Dr. Dee Humphrey Monocytes/100 WBC (Bld) 5.0 % Normal 1.7-12.[address] [facility] Comment on above: Performed By: #### C BC #### [facility] [address] [place] [address] Dr. Dee Humphrey NEUT # 8.5 103/ul Critically high 1.4-6.5 [facility] Comment on above: Performed By: #### C BC #### [facility] [address] [place] [address] Dr. Dee Humphrey Neutrophils/100 WBC (Bld) 65.0 % Normal 43.0-75.0 [facility] Comment on above: Performed By: #### C BC #### [facility] [address] [place], [place] [address] Dr. Dee Humphrey Platelet mean volume (Bld) [Entitic vol] 9.6 fL Normal 9.5-13.5 [facility] Comment on above: Performed By: #### C BC #### [facility] [address] [place], [place] [address] Dr. Dee Humphrey PLT 317 103/ul Normal 150-450 [facility] Comment on above: Performed By: #### C BC #### [facility] [address] [place], [place] [address] Dr. Dee Humphrey RBC 4.10 106/ul Critically low 4.20-5.40 [facility] Comment on above: Performed By: #### C BC #### [facility] [address] [place], [place] [address] Dr. Dee Humphrey WBC 13.1 103/ul Critically high 4.0-11.0 [facility] Comment on above: Performed By: #### C BC #### [facility] [address] [place] [address] ABD/PELVIS WO CONon [...] ROCIO CHAU Date: 2022-04-27 20:24 Normal [facility] ER URINE PROFILEon 2 Bilirubin Ql (U) Negative Normal NEGATIVE [facility] Comment on above: Performed By: #### P REGU, ERUR #### [facility] [address] [place] [address] Dr. Dee Humphrey Clarity (U) CLEAR Normal CLEAR [facility] Comment on above: Performed By: #### P REGU, ERUR #### [facility] [address] [place] [address] Dr. Dee Humphrey Color (U) YELLOW Normal YELLOW [facility] Comment on above: Performed By: #### P REGU, ERUR #### [facility] [address] [place] [address] Dr. Dee Humphrey ERUAHD A micrscopic examination will be performed if indicated. Normal [facility] Comment on above: Performed By: #### P REGU, ERUR #### [facility] [address] [place] [address] Dr. Dee Humphrey Glucose Ql (U) Negative Normal NEGATIVE [facility] Comment on above: Performed By: #### P REGU, ERUR #### [facility] [address] [place] [address] Dr. Dee Humphrey Hemoglobin Ql (U) Negative Normal NEGATIVE [facility] Comment on above: Performed By: #### P REGU, ERUR #### [facility] [address] [place] [address] Dr. Dee Humphrey Ketones Ql (U) Negative Normal NEGATIVE [facility] [facility] Comment on above: Performed By: #### P REGU, ERUR #### [facility] [address] [place] [address] Dr. Dee Humphrey LEUKOCYTES Negative Normal NEGATIVE [facility] Comment on above: Performed By: #### P REGU, ERUR #### [facility] [address] [place] [address] Dr. Dee Humphrey Nitrite Ql (U) Negative Normal NEGATIVE [facility] Comment on above: Performed By: #### P REGU, ERUR #### [facility] [address] [address] [address] Dee Humphrey pH (U) 5.5 [pH] Normal 5-9 [facility] Comment on above: Performed By: #### P REGU, ERUR #### [facility] [address] [place] [address] Dr. Dee Humphrey SPEC GRAVITY >=1.030 Abnormal 1.005-<=1.02 5 [facility] Comment on above: Performed By: #### P REGU, ERUR #### [facility] [address] [place] [address] Dr. Dee Humphrey UA PROTEIN Negative Normal NEGATIVE/ TRACE [facility] Comment on above: Performed By: #### P REGU, ERUR #### [facility] [address] [place] [address] Dr. Dee Humphrey UR MICRO IND NOT INDICATED Normal [facility] Comment on above: Performed By: #### P REGU, ERUR #### [facility] [address] [place] [address] Dr. Dee Humphrey Urobilinogen Qn (U) 0.2 {Blanca'U}/dL Normal 0.2 - 1. 0 [facility] Comment on above: Performed By: #### P REGU, ERUR #### [facility] [address] [place] [address] Dr. Dee Humphrey LIPASEon 04-27-2022 Lipase [Catalytic activity/Vol] 94.0 U/L Normal 73.0-393.0 [facility] Comment on above: Performed By: #### L IPA, CMP #### [facility] [address] [place] [address] Dr. Dee Humphrey URon 04-27-2022 , QUAL Negative Normal NEGATIVE [facility] Comment on above: Performed By: #### P REGU, ERUR #### [facility] [address] [place] [address] Dr. Dee Humphrey PROF 14(COMP METB)on 022 Albumin [Mass/Vol] 3.9 g/dL Normal 3.4-5.0 [facility] Comment on above: Performed By: #### L IPA, CMP #### [facility] [address] [place] [address] Dr. Dee Humphrey Albumin/Globulin [Mass ratio] 1.0 {ratio} Normal [facility] Comment on above: Performed By: #### L IPA, CMP #### [facility] [address] [place] [address] Dr. Dee Humphrey ALP [Catalytic activity/Vol] 87 U/L Normal 46-116 [facility] Comment on above: Performed By: #### L IPA, CMP #### [facility] [address] [place] [address] Dr. Dee Humphrey ALT [Catalytic activity/Vol] 31 U/L Normal 14-59 [facility] Comment on above: Performed By: #### L IPA, CMP #### [facility] [address] [place] [address] Dr. Dee Humphrey Anion gap [Moles/Vol] 10.8 mmol/L Normal [facility] Comment on above: Performed By: #### L IPA, CMP #### [facility] [address] [place] [address] Dr. Dee Humphrey AST [Catalytic activity/Vol] 17 U/L Normal 15-37 [facility] Comment on above: Performed By: #### L IPA, CMP #### [facility] [address] [place] [address] Dr. Dee Humphrey Bilirubin [Mass/Vol] 0.1 mg/dL Critically low 0.2-1.0 [facility] Comment on above: Performed By: #### L IPA, CMP #### [facility] [address] [place] [address] Dr. Dee Humphrey Calcium [Mass/Vol] 8.9 mg/dL Normal 8.5-10.1 [facility] Comment on above: Performed By: #### L IPA, CMP #### [facility] [address] [place] [address] Dr. Dee Humphrey Chloride [Moles/Vol] 103 mmol/L Normal 98-[address] [facility] Comment on above: Performed By: #### L IPA, CMP #### [facility] [address] [place] [address] Dr. Dee Humphrey CO2 [Moles/Vol] 26.9 mmol/L Normal 21.0-32.0 [facility] Comment on above: Performed By: #### L IPA, CMP #### [facility] [address] [place] [address] Dr. Dee Humphrey Creatinine [Mass/Vol] 0.80 mg/dL Normal 0.55-1.02 [facility] Comment on above: Performed By: #### L IPA, CMP #### [facility] [address] [place] [address] Dr. Dee Humphrey EGFR-AF DANISH >60 Normal >=60 [facility] Comment on above: Performed By: #### L IPA, CMP #### [facility] [address] [place] [address] Dr. Dee Humphrey EGFR-NON AF DANISH >60 Normal >=[address] [facility] Comment on above: Performed By: #### L IPA, CMP #### [facility] [address] [place] [address] Dr. Dee Humphrey Globulin (S) [Mass/Vol] 3.9 g/dL Normal [facility] Comment on above: Performed By: #### L IPA, CMP #### [facility] [address] [place] [address] Dr. Dee Humphrey Glucose [Mass/Vol] 96 mg/dL Normal 74-106 [facility] Comment on above: Performed By: #### L IPA, CMP #### [facility] [address] [place] [address] Dr. Dee Humphrey Potassium [Moles/Vol] 3.7 mmol/L Normal 3.5-5.1 [facility] Comment on above: Performed By: #### L IPA, CMP #### [facility] [address] [place] [address] Dr. Dee Humphrey Protein [Mass/Vol] 7.8 g/dL Normal 6.4-8.2 [facility] Comment on above: Performed By: #### L IPA, CMP #### [facility] [address] [place] [address] Dr. Dee Humphrey Sodium [Moles/Vol] 137 mmol/L Normal 136-145 [facility] Comment on above: Performed By: #### L IPA, CMP #### [facility] [address] [place] [address] Dr. Dee Humphrey Urea nitrogen [Mass/Vol] 13.0 mg/dL Normal 7.0-18.0 [facility] Comment on above: Performed By: #### L IPA, CMP #### [facility] [address] [place] [address] Dr. Dee Humphrey Urea nitrogen/Creatinine [Mass ratio] 16.2 mg/mg Normal [facility] Comment on above: Performed By: #### L IPA, CMP #### [facility] [address] [place] [address] Dr. Dee Humphrey CBC AUTO DIFFon 03-07-2022 BASO # 0.0 103/ul Normal 0.0-0.1 [facility] Comment on above: Performed By: #### C BC #### [facility] [address] [place] [address] Dr. Dee Humphrey Basophils/100 WBC (Bld) 0.3 % Normal 0.2-2.0 [facility] Comment on above: Performed By: #### C BC #### [facility] [address] [place] [address] Dr. Dee Humphrey EO # 0.1 103/ul Normal 0.0-0.7 [facility] Comment on above: Performed By: #### C BC #### [facility] [address] [place] [address] Dr. Dee Humphrey Eosinophils/100 WBC (Bld) 0.7 % Critically low 0.9-7.0 [facility] Comment on above: Performed By: #### C BC #### [facility] [address] [place] [address] Dr. Dee Humphrey Erythrocyte distribution width (RBC) [Ratio] 13.0 % Normal 11.0-15.0 [facility] Comment on above: Performed By: #### C BC #### [facility] [address] [place] [address] Dr. Dee Humphrey Hematocrit (Bld) [Volume fraction] 39.2 % Normal 36.0-48.0 [facility] Comment on above: Performed By: #### C BC #### [facility] [address] [place] [address] Dr. Dee Humphrey Hemoglobin (Bld) [Mass/Vol] 13.2 g/dL Normal 12.0-16.0 [facility] Comment on above: Performed By: #### C BC #### [facility] [address] [place] [address] Dr. Dee Humphrey IG # 0.05 10e3/ul Critically high 0.00-0.03 [facility] Comment on above: Performed By: #### C BC #### [facility] [address] [place] [address] Dr. Dee Humphrey IG % 0.5 % Normal 0.0-0.5 [facility] Comment on above: Performed By: #### C BC #### [facility] [address] [place] [address] Dr. Dee Humphrey LYMPH # 4.2 103/ul Critically high 1.2-3.8 [facility] Comment on above: Performed By: #### C BC #### [facility] [address] [place] [address] Dr. Dee Humphrey Lymphocytes/100 WBC (Bld) 43.1 % Normal 20.5-60.0 [facility] Comment on above: Performed By: #### C BC #### [facility] [address] [place] [address] Dr. Dee Humphrey MANUAL DIFF REQ NO Normal [facility] Comment on above: Performed By: #### C BC #### [facility] [address] [place] [address] Dr. Dee Humphrey MCH (RBC) [Entitic mass] 30.5 pg Normal 26.7-34.0 [facility] Comment on above: Performed By: #### C BC #### [facility] [address] [place] [address] Dr. Dee Humphrey MCHC (RBC) [Mass/Vol] 33.7 g/dL Normal 29.9-35.2 [facility] Comment on above: Performed By: #### C BC #### [facility] [address] [place] [address] Dr. Dee Humphrey MCV (RBC) [Entitic vol] 90.5 fL Normal 81.0-99.0 [facility] Comment on above: Performed By: #### C BC #### [facility] [address] [place] [address] Dr. Dee Humphrey MONO # 0.4 103/ul Normal 0.3-0.8 [facility] Comment on above: Performed By: #### C BC #### [facility] [address] [place] [address] Dr. Dee Humphrey Monocytes/100 WBC (Bld) 4.4 % Normal 1.7-12.0 [facility] Comment on above: Performed By: #### C BC #### [facility] [address] [place] [address] Dr. Dee Humphrey NEUT # 4.9 103/ul Normal 1.4-6.[address] [facility] Comment on above: Performed By: #### C BC #### [facility] [address] [place] [address] Dr. Dee Humphrey Neutrophils/100 WBC (Bld) 51.0 % Normal 43.0-75.0 [facility] Comment on above: Performed By: #### C BC #### [facility] [address] [place] [address] Dr. Dee Humphrey Platelet mean volume (Bld) [Entitic vol] 9.6 fL Normal 9.5-13.5 [facility] Comment on above: Performed By: #### C BC #### [facility] [address] [place] [address] Dr. Dee Humphrey PLT 364 103/ul Normal 150-450 [facility] Comment on above: Performed By: #### C BC #### [facility] [address] [place] [address] Dr. Dee Humphrey RBC 4.33 106/ul Normal 4.20-5.40 [facility] Comment on above: Performed By: #### C BC #### [facility] [address] [place] [address] Dr. Dee Humphrey WBC 9.7 103/ul Normal 4.0-11.0 [facility] Comment on above: Performed By: #### C BC #### [facility] [address] [place] [address] Dr. Dee Humphrey LACTATE/LACTIC ACIDon 2021 Lactate [Moles/Vol] 1.1 mmol/L Normal 0.4-1.9 [facility] Comment on above: Performed By: #### P CHARLI ERUR #### [facility] [address] [place] [address] Dr. Dee Humphrey LIPASEon 03-07-2022 Lipase [Catalytic activity/Vol] 79.0 U/L Normal 73.0-393.0 [facility] Comment on above: Performed By: #### C MP, LIPA #### [facility] [address] [place] [address] Dr. Dee Humphrey PROF 14(COMP METB)on 022 Albumin [Mass/Vol] 3.8 g/dL Normal 3.4-5.0 [facility] Comment on above: Performed By: #### C MP, LIPA #### [facility] [address] [place] [address] Dr. Dee Humphrey Albumin/Globulin [Mass ratio] 0.9 {ratio} Normal [facility] Comment on above: Performed By: #### C MP, LIPA #### [facility] [address] [address] [address] Dee Humphrey ALP [Catalytic activity/Vol] 80 U/L Normal 46-116 [facility] Comment on above: Performed By: #### C MP, LIPA #### [facility] [address] [address] [address] Dee Humphrey ALT [Catalytic activity/Vol] 27 U/L Normal 14-59 [facility] Comment on above: Performed By: #### C MP, LIPA #### [facility] [address] [address] [address] Dee Humphrey Anion gap [Moles/Vol] 9.5 mmol/L Normal [facility] Comment on above: Performed By: #### C MP, LIPA #### [facility] [address] [address] [address] Dee Humphrey AST [Catalytic activity/Vol] 13 U/L Critically low 15-37 [facility] Comment on above: Performed By: #### C MP, LIPA #### [facility] [address] [address] [address] Dee Humphrey Bilirubin [Mass/Vol] 0.1 mg/dL Critically low 0.2-1.0 [facility] Comment on above: Performed By: #### C MP, LIPA #### [facility] [address] [address] [address] Dee Humphrey Calcium [Mass/Vol] 9.0 mg/dL Normal 8.5-10.1 [facility] Comment on above: Performed By: #### C MP, LIPA #### [facility] [address] [address] [address] Dee Humphrey Chloride [Moles/Vol] 103 mmol/L Normal 98-107 [facility] Comment on above: Performed By: #### C MP, LIPA #### [facility] [address] [address] [address] Dee Humphrey CO2 [Moles/Vol] 27.1 mmol/L Normal 21.0-32.0 [facility] Comment on above: Performed By: #### C MP, LIPA #### [facility] [address] [address] [address] Dee Humphrey Creatinine [Mass/Vol] 0.86 mg/dL Normal 0.55-1.02 [facility] Comment on above: Performed By: #### C MP, LIPA #### [facility] [address] [address] [address] Dee Humphrey EGFR-AF DANISH >60 Normal >=60 [facility] Comment on above: Performed By: #### C MP, LIPA #### [facility] [address] [address] [address] Dee Humphrey EGFR-NON AF DANISH >60 Normal >=60 [facility] Comment on above: Performed By: #### C MP, LIPA #### [facility] [address] [address] [address] Dee Humphrey Globulin (S) [Mass/Vol] 4.1 g/dL Normal [facility] Comment on above: Performed By: #### C MP, LIPA #### [facility] [address] [address] [address] Dee Humphrey Glucose [Mass/Vol] 99 mg/dL Normal 74-106 [facility] Comment on above: Performed By: #### C MP, LIPA #### [facility] [address] [address] [address] Dee Humphrey Potassium [Moles/Vol] 3.6 mmol/L Normal 3.5-5.[address] [facility] Comment on above: Performed By: #### C MP, LIPA #### [facility] [address] [address] [address] Dee Humphrey Protein [Mass/Vol] 7.9 g/dL Normal 6.4-8.2 [facility] Comment on above: Performed By: #### C MP, LIPA #### [facility] [address] [address] [address] Dee Humphrey Sodium [Moles/Vol] 136 mmol/L Normal 136-145 [facility] Comment on above: Performed By: #### C MP, LIPA #### [facility] [address] [place], [place] [address] Dr. Dee Humphrey Urea nitrogen [Mass/Vol] 12.0 mg/dL Normal 7.0-18.0 [facility] Comment on above: Performed By: #### C MP, LIPA #### [facility] [address] [place], [place] [address] Dr. Dee Humphrey Urea nitrogen/Creatinine [Mass ratio] 14.0 mg/mg Normal [facility] Comment on above: Performed By: #### C MP, LIPA #### [facility] [address] [place], [place] [address] Dr. Dee Humphrey Consent for COVID Vaccineon 08-09-2020 SARS-CoV-2 (COVID-19) RNA J LUIS+probe Ql (Unsp spec) [id number] .[id number]:127 [facility] Consent for Treatmenton 07-30 Consent for Treatment [id number] .[id number]:127 Normal [facility] Coding Summary.on 08-07-2020 Coding Summary. CODING DATE: 08/07/2020 FINAL [facility] STATUS: PAYOR: Luzma APC DESCRIPTION [...] Paredes Date Saved: 08/07/2020 02:46 pm Normal [facility] Ambulatory Clinical Summaryo n 03-25-2020 Ambulatory Clinical Summary {[id number]}CD:[id number] [facility] Patient Educationon 11-19-20 20 Patient Education lurasidone (loo JOAO i [...] irritable, agitate (more content not included)... Normal [facility] Video Visit - Telehealtho n 02-23-2020 Video [...] interactive video communications from my office using [employer] due to the restrictions of the COVID-19 pandemic. No physical exam was conducted other than those areas of the body visible to telecommunications with the patient located at [address] [place], [place] [id number], with no one else in attendance. If [...] Stopped age (more content not included)... Normal [facility] Comment on above: Result Comment: Elec tronically Signed By: Deepa [facility], Maia Montero.mati\Date and Time Signed: 02/22/20 23:17 [...] interactive video communications from my office using [employer] due to the restrictions of the COVID-19 pandemic. No physical exam was conducted other than those areas of the body visible to telecommunications with the patient located at [address] [place] [address], with no one else in attendance. If [...] Sister. Depres (more content not included)... Normal [facility] Comment on above: Result Comment: Elec tronically Signed By: [facility].mati\Date and Time Signed: 02/11/20 14:46 EDT Video [...] interactive video communications from my office using [employer] due to the restrictions of the COVID-19 pandemic. No physical exam was conducted other than those areas of the body visible to telecommunications with the patient located at [address] [place] [phone], with no one else in attendance. If [...] - Denies (more content not included)... Normal [facility] Comment on above: Result Comment: Elec tronically Signed By: Deepa [facility], Maia Ashley\.br\Date and Time Signed: 02/11/20 14:37 EDT Video [...] interactive video communications from my office using [employer] due to the restrictions of the COVID-19 pandemic. No physical exam was conducted other than those areas of the body visible to telecommunications with the patient located at [address] [place] [phone], with no one else in attendance. If [...] Tobacco F (more content not included)... Normal [facility] Comment on above: Result Comment: Elec tronically Signed By: Deepa [facility], Maia Ashley\.br\Date and Time Signed: 01/29/20 21:44 EDT Video [...] interactive video communications from my office using [employer] due to the restrictions of the COVID-19 pandemic. No physical exam was conducted other than those areas of the body visible to telecommunications with the patient located at [address] [place] [phone], with no one else in attendance. If [...] Yes, 09 (more content not included)... Normal [facility] Comment on above: Result Comment: Elec tronically Signed By: Deepa [facility], Maia Ashley\.br\Date and Time Signed: 01/29/20 21:38 EDT Patient [...] include drow (more content not included)... Normal [facility] Video Visit - Telehealtho n 01-13-2020 Video [...] interactive video communications from my office using [employer] due to the restrictions of the COVID-19 pandemic. No physical exam was conducted other than those areas of the body visible to telecommunications with the patient located at [address] [place] [phone], with no one else in attendance. If [...] Tobacco For (more content not included)... Normal [facility] Comment on above: Result Comment: Elec tronically Signed By: Deepa [facility], Maia Montero.mati\Date and Time Signed: 01/13/20 09:40 EDT Patient Educationon 01-13-20 20 Patient Education aripiprazole (AR i PIP ra zole) Say Lerma What is the most important [...] (more content not included)... Normal [facility] Video Visit - Telehealtho n 01-07-2020 [...] interactive video communications from my office using [employer] due to the restrictions of the COVID-19 pandemic. No physical exam was conducted other than those areas of the body visible to telecommunications with the patient located at [address] [place], [place] [phone], with no one else in attendance. If [...] Use:. N (more content not included)... Normal [facility] Comment on above: Result Comment: Elec tronically Signed By: Deepa [facility], Maia Montero.mati\Date and Time Signed: 01/07/20 [...] interactive video communications from my office using [employer] due to the restrictions of the COVID-19 pandemic. No physical exam was conducted other than those areas of the body visible to telecommunications with the patient located at [address] [place] [address], with no one else in attendance. If [...] Father and (more content not included)... Normal [facility] Comment on above: Result Comment: Elec tronically Signed By: [facility].mati\Date and Time Signed: 12/30/19 13:50 EDT [...] passing away. Patient agreed to talk with Carltoa Rodriguez about her current symptoms - increased anxiety and irritability- and review her medications. Changes In Medical Condition None reported Changes In Functional Impairment None reported Changes In Symptoms Explained None reported Other Information This visit was conducted via two-way, real-time interactive video communications from my office using [employer] due to the restrictions of the COVID-19 pandemic. No physical exam was conducted other than those areas of the body visible to telecommunications with the patient located at [address] [place], [place] [phone], with no one else in attendance. If [...] Alcohol U (more content not included)... Normal [facility] Comment on above: Result Comment: Elec tronically Signed By: Deepa [facility], Maia Ashley\.br\Date and Time Signed: 12/23/19 16:54 EDT Patient Educationon 12-23-19 20 Patient Education aripiprazole (KEMAR welsh) Say Lerma Discmarco What is the [...] include drow (more content not included)... Normal [facility] Video Visit - Telehealtho n 12-04-2019 Video [...] to telecommunications with the patient located at [address] [place] [phone], with no one else in attendance. If [...] Daily, 5 (more content not included)... Normal [facility] Comment on above: Result Comment: Elec tronically Signed By: Deepa [facility], Maia Ashley\.mati\Date and Time Signed: 12/04/19 09:42 EDT Patient [...] rate, h (more content not included)... Normal [facility] Vital Signs Date Time Vital Sign Value Performing Clinician Facility 02-21-2024 13:57-0400 Body mass index (BMI) [Ratio] 41.3 kg/m2 Johnathan Jorje DO Work Phone: [facility] 02-21-2024 13:57-0400 Body weight 102.42 kg Johnathan Jorje DO Work Phone: [facility] 02-21-2024 13:57-0400 Diastolic blood pressure 70 mm[Hg] Johnathan Jorje DO Work Phone: [facility] 02-21-2024 13:57-0400 Systolic blood pressure 100 mm[Hg] Johnathan Jorje DO Work Phone: [facility] 02-15-2024 13:03-0400 Body height 160 cm Malena Cardona MD Work Phone: [facility] 02-15-2024 13:03-0400 Body mass index (BMI) [Ratio] 39.65 kg/m2 Malena Cardona MD Work Phone: [facility] 02-15-2024 13:03-0400 Body weight 101.52 kg Malena Cardona MD Work Phone: [facility] 02-15-2024 13:03-0400 Diastolic blood pressure 74 mm[Hg] Malena Cardona MD Work Phone: [facility] 02-15-2024 13:03-0400 Heart rate 94 /min Malena Cardona MD Work Phone: [facility] 02-15-2024 13:03-0400 Systolic blood pressure 123 mm[Hg] Malena Cardona MD Work Phone: [facility] 08-18-2023 14:24-0400 Body height 160.02 cm [facility] 08-18-2023 14:24-0400 Body mass index (BMI) [Ratio] 40.2 kg/m2 [facility] 08-18-2023 14:24-0400 Body temperature 98.4 [degF] [facility] 08-18-2023 14:24-0400 Body weight 103.02 kg [facility] 08-18-2023 14:24-0400 Diastolic blood pressure 81 mm[Hg] [facility] 08-18-2023 14:24-0400 Heart rate 101 /min [facility] 08-18-2023 14:24-0400 Respiratory rate 16 /min [facility] 08-18-2023 14:24-0400 SaO2% (BldA) [Mass fraction] 98 % [facility] 08-18-2023 14:24-0400 Systolic blood pressure 133 mm[Hg] [facility] 04-27-2023 16:30-0500 Body height 160.02 cm Sanaz Lockwood Other [employer] [facility] Other 04-27-2023 16:30-0500 Body mass index (BMI) [Ratio] 40.92 kg/m2 Sanaz Lockwood Other [facility] Other 04-27-2023 16:30-0500 Body temperature 98.2 [degF] Sanaz Lockwood Other [employer] Other 04-27-2023 16:30-0500 Body weight 104.78 kg Sanaz Lockwood Other [employer] Other 04-27-2023 16:30-0500 Respiratory rate 18 /min Sanaz Lockwood Other [employer] Other 04-27-2023 16:30-0500 SaO2% (BldA) [Mass fraction] 99 % Sanaz Lockwood Other [facility] Other 05-10-2022 14:45-0500 Body height 160.02 cm Kaylah Han Other [employer] Other 05-10-2022 14:45-0500 Body mass index (BMI) [Ratio] 38.97 kg/m2 Kaylah Han Other [facility] Other 05-10-2022 14:45-0500 Body temperature 99.3 [degF] Kaylah Han Other [employer] Other 05-10-2022 14:45-0500 Body weight 99.79 kg Kaylah Han Other [employer] Other 06-29-2019 22:40-0500 Pulse (Heart Rate) 84 /min [facility] 06-29-2019 22:40-0500 Pulse Oximetry 97 % [facility] 06-29-2019 22:35-0500 BP Diastolic 56 mm[Hg] [facility] 06-29-2019 22:35-0500 BP Systolic 100 mm[Hg] [facility] 06-29-2019 21:11-0500 BMI (Body Mass Index) 33.1 kg/m2 [facility] 06-29-2019 21:11-0500 Body Temperature 97.8 [degF] [facility] 06-29-2019 21:11-0500 Body weight 84.8 kg [facility] 06-29-2019 21:11-0500 Height 160.02 cm [facility] 06-29-2019 21:11-0500 Respiratory Rate 20 /min [facility] Encounters Encounter Date Encounter Type Care Provider Facility Start: 02-26-2024 End: 02-26-2024 ambulatory [facility] Start: 02-21-2024 End: 02-21-2024 Bamboo flowsheet Johnathan Jorje DO Work Phone: [facility] Start: 02-21-2024 End: 02-21-2024 Bamboo flowsheet Johnathan Jorje DO Work Phone: [facility] Start: 02-21-2024 End: 02-21-2024 ambulatory JOHNATHANSage AHUMADAO Not Available Start: 02-21-2024 End: 02-21-2024 flow sheet Johnathan Ahumadao DO Work Phone: [facility] Comment on above: 22 weeks gestation o f ; Second trimester ; Diabetes mellitus screening Start: 02-15-2024 End: 02-15-2024 Office consultation new/estab patient 60 min Malena Cardona MD Work Phone: [facility]- [facility] at [facility] Comment on above: 21 weeks gestation o f (Primary Dx); Multigravida of advanced maternal age in second trimester; Pyelonephritis affecting in second trimester; Bipolar disease during in second trimester ([facility]); Obesity affecting in second trimester, unspecified obesity type; BMI 39.0-39.9,adult; History of section complicating ; Vapes nicotine containing substance; Current rao with 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, antepartum; History of delivery, currently Start: 02-15-2024 End: 02-15-2024 Orders Only Flor Lopez RN [facility]- Medic ine at [facility] Comment on above: 21 weeks gestation o f (Primary Dx); Obesity affecting in second trimester, unspecified obesity type Start: 02-15-2024 End: 02-15-2024 [facility] Start: 02-09-2024 End: 02-09-2024 Evaluation and management of inpatient TEJNAKIA ZENG [facility] Start: 02-08-2024 End: 02-09-2024 Evaluation and management of inpatient NATO LLOYD [facility] Start: 01-24-2024 End: 01-24-2024 ambulatory JOHNATHAN JORJE Not Available Start: 01-03-2024 End: 01-03-2024 ambulatory LIZA DUQUE Not Available Start: 12-25-2023 End: 12-25-2023 ambulatory JOHNATHAN JORJE Not Available Start: 11-24-2023 End: 11-24-2023 ambulatory JOHNATHAN JORJE Not Available Start: 08-18-2023 End: 08-18-2023 ambulatory [facility] Work Phone: Start: 08-18-2023 End: 08-18-2023 Patient encounter procedure [facility] Work Phone: Start: 04-27-2023 End: 04-27-2023 ambulatory Sanaz Lockwood Other [facility] Other Start: 04-27-2023 Office outpatient vi sit 25 minutes Sanaz Fabián [facility] Start: 05-10-2022 End: 05-10-2022 ambulatory Kaylah Han Other [employer] Other Start: 05-10-2022 Office outpatient ne w 20 minutes Kaylah Han [facility] Start: 04-27-2022 End: 04-27-2022 ambulatory KIMBERLYN XIE Facility:[facility] Start: 03-07-2022 End: 03-07-2022 ambulatory KIMBERLYN XIE Facility:[facility] Start: 09-23-[address] JAZIEL HILL Facility :[facility] Start: 06-29-2019 End: 06-29-2019 Emergency department patient visit Kimberlynjaime Dunhammer [facility] Procedures Date Procedure Procedure Detail Performing Clinician Start: 02-21-2024 Urnls dip stick/tablet rgnt non-auto w/o micrscp Johnathan Ahumadao DO Work Phone: Start: 02-15-2024 H/O: section History of section complicating Malena Cardona MD Work Phone: Start: 01-24-2024 Microscopic observation [Identifier] in Cervix by Cyto stain Flor Lopez RN Start: 08-18-2023 Quick Strep (POC) Plan of Treatment Date Care Activity Detail Author Start: 01-23-2027 [facility] Start: 02-14-2025 Adult BMI Screening Adult BMI Screen ing [facility] Start: 02-14-2025 Tobacco Screening Tobacco Screening [facility] Start: 02-14-2025 End: 02-14-2025 US MFM with or without consult US MFM with or without consult Imaging Routine 21 weeks gestation of Obesity affecting in second trimester, unspecified obesity type Expected: 02/14/2025 (Approximate), Expires: 02/14/2025 [facility] Work Phone: Comment on above: Expected: 02/14/2025 (Approximate), Expires: 02/14/2025 Start: 03-21-2024 End: 03-21-2024 Patient encounter procedure 03/21/2024 1:30 PM EST Routine [facility] [address] [place] [id number] Liza Duque PA [address] [place] [address] [facility] Start: 03-14-2024 End: 03-14-2024 Patient encounter procedure 03/14/2024 9:45 AM EST Appointment [facility] [address] [place] [id number] [facility] Start: 02-22-2024 End: 02-22-2024 Patient encounter procedure 02/22/2024 10:15 AM EDT Appointment [facility] [place] [address] [place] [id number] [facility] [place] Start: 02-21-2024 End: 02-20-2025 CBC panel - Blood by Automated count CBC Lab Routine Diabetes mellitus screening Expected: 02/21/2024 (Approximate), Expires: 02/20/2025 [facility] Work Phone: Comment on above: Expected: 02/21/2024 (Approximate), Expires: 02/20/2025 Start: 02-21-2024 End: 02-20-2025 Measurement of glucose 1 hour after glucose challenge for glucose tolerance test Glucose tolerance, 1 hour Lab Routine Diabetes mellitus screening Expected: 02/21/2024 (Approximate), Expires: 02/20/2025 [facility] Comment on above: Expected: 02/21/2024 (Approximate), Expires: 02/20/2025 Start: 12-31-2023 COVID-19 Vaccine ( season) COVID-19 Vaccine ( season) [facility] Start: 12-31-[address] [facility] Start: 10-11-2021 DTaP,Tdap and Td Vaccines (2 - Td or Tdap) DTaP,Tdap and Td Vaccines (2 - Td or Tdap) [facility] Start: 2017 Screening for malign ant neoplasm of cervix HPV/Cotest [facility] Start: 2005 Adult BMI Follow Up Plan Adult BMI Follow Up Plan [facility] Start: 1999 Depression Screening Depression Scre ening [facility] Patient Education Epinephrine (B y injection) Anaphylaxis (ED) General Allergic Reaction (ED) [facility] Patient referral [facility] Immunizations Immunization Date Immunization Notes Care Provider Fa bethany 06-02-2008 influenza virus vaccine, unspecified formulation Flor Lopez RN [facility] Payers Date Payer Category Payer [facility] [id number] 2023 [facility] Blue Rigoberto ld Managed Care - O LUZMA [id number] 1987 Unknown [id number] [id number]. 2.593 1987 Unknown [id number] [id number]. 2.593 1987 Unknown [id number] 2.16.840.1.412419.3.579. 2.593 1987 Unknown [id number] 2.16.840.1.074695.3.579. 2.1259 1987 Unknown [id number] 2.16.840.1.107993.3.579. 2.1259 1987 Unknown [id number] 2.16.840.1.333096.3.579. 2.9 1987 Unknown [id number] 2.16.840.1.063053.3.579. 2.1259 1987 Unknown [id number] 2.16.840.1.324386.3.579. 2.1259 1987 Unknown [id number] 2.16.840.1.998551.3.579. 2.1286 1987 Unknown [id number] 2.16.840.1.065750.3.579. 2.1286 1987 Unknown [id number] 2.16.840.1.698970.3.579. 2.1286 1987 Unknown [id number] 2.16.840.1.646312.3.579. 2.1286 1987 Unknown [id number] [id number]. 2.1286 1959 Self-pay [id number] 1959 Unknown [id number] Private Health Insurance [id number] Self-pay Self Pay [id number] Social History Date Type Detail Facility Start: 06-29-2019 End: 08-18-2023 Tobacco smoking status NYIS Smoker (finding) [facility] Start: 1985 Sex Assigned At Female [facility] Start: 06-10-2020 End: 02-15-2024 Sex Assigned At [facility] Other Start: 02-15-2024 Tobacco smoking status [facility] Ex-smoker [facility] Start: 02-15-2024 Tobacco use and exposure Smokeless tobacco non-user [facility] Start: 02-15-2024 Alcoholic beverage intake Lifetime non-drinker (finding) [facility] Start: 06-10-2020 End: 02-15-2024 History of Social function [facility] Childcare Unknown [facility] Start: 02-15-2024 Tobacco Comment PT IS A VAPER [facility] Start: 10-03-2023 [facility] Start: 1987 Sex assigned at Not on file [facility] [employer] Start: 12-02-2014 Sex Female (finding) [facility] Start: 02-08-2024 Sexual orientation Heterosexual (finding) [facility] Start: 10-26-2023 Gender identity Identifies as female gender (finding) [facility] Goals Date Patient Goal Desired Activity /State Personal health goal Comment on above: Formatting of this n ote might be different from the original. Evaluation of progress towards goal: go home today Clinical Notes 12-02-2019 to 02-21-2024 Gayle Hendricks LPN - 02/21/2024 1:50 PM EDTMalena Cardona MD - 02/15/2024 1:00 PM Sabrina Lopez RN - 02/15/2024 1:00 PM EDT Note Date & Type Note Facility 02-21-2024 History of Present illness Narrative Reason for Appointment: Patient ID: Mikaela Ruiz is a 38 y.o. female who presents for No chief complaint on file. Patient presents today for Return OB appointment. MEDICATIONS Current Outpatient Medications Medication Instructions aspirin 81 mg, Daily lamoTRIgine (LAMICTAL) 200 mg, Daily lurasidone (LATUDA) 40 mg, Daily with breakfast magnesium oxide (MAG-OX) 400 mg, Oral, Daily venlafaxine XR (EFFEXOR XR) 37.5 mg, Daily ALLERGIES Allergies Allergen Reactions Egg-Derived Products GI intolerance Sulfamethoxazole Other Reaction(s): Unknown Reaction, hives Sulfamethoxazole-Trimethoprim Unknown Trimethoprim Other Reaction(s): Unknown Reaction, hives PROBLEMS Active Ambulatory Problems Diagnosis Date Noted No Active Ambulatory Problems Resolved Ambulatory Problems Diagnosis Date Noted No Resolved Ambulatory Problems Past Medical History: Diagnosis Date Bipolar 1 disorder ([facility]/HCC) HISTORY PAST MEDICAL HISTORY SOCIAL HISTORY Past Medical History: Diagnosis Date Bipolar 1 disorder ([facility]) Social History Tobacco Use Smoking status: Not on file Smokeless tobacco: Not on file Substance Use Topics Alcohol use: Not on file Drug use: Not on file FAMILY HISTORY Family History Problem Relation Name Age of Onset Diabetes Father Other (high blood pressure) Father SURGICAL HISTORY Past Surgical History: Procedure Laterality Date APPENDECTOMY SECTION, LOW TRANSVERSE X 3 GALLBLADDER REVIEW OF SYSTEMS Review of Systems: Review of Systems Constitutional: Negative. HENT: Negative. Eyes: Negative. Respiratory: Negative. Cardiovascular: Negative. Gastrointestinal: Negative. Genitourinary: Negative. Musculoskeletal: Negative. Skin: Negative. Neurological: Negative. All other systems reviewed and are negative. Hematological: Negative. Endocrine: Negative. Allergic/Immunologic: Negative. OBJECTIVE Objective: Physical Exam Constitutional: Appearance: Normal appearance. She is well-developed. Cardiovascular: Rate and Rhythm: Normal rate and regular rhythm. Pulmonary: Effort: Pulmonary effort is normal. Breath sounds: Normal breath sounds. Abdominal: General: Bowel sounds are normal. There is no distension. Palpations: Abdomen is soft. Tenderness: There is no abdominal tenderness. There is no guarding or rebound. Musculoskeletal: General: No swelling. Normal range of motion. Right lower leg: No edema. Left lower leg: No edema. Neurological: Mental Status: She is alert and oriented to person, place, and time. Skin: General: Skin is warm and dry. Psychiatric: Mood and Affect: Mood normal. Behavior: Behavior normal. Vitals and nursing note reviewed. Exam conducted with a trust manager present. Vitals: Estimated body mass index is 41.3 kg/m as calculated from the following: Height as of 03/18/22: 5' 2 . Weight as of this encounter: 225 lb 12.8 oz. BP: 100/70 Patient's last menstrual period was 09/12/2023. ASSESSMENT & PLAN ICD-10-CM 1. 22 weeks gestation of Z3A.22 POCT urinalysis dipstick manually resulted 2. Second trimester Z34.92 POCT urinalysis dipstick manually resulted 3. Diabetes mellitus screening Z13.1 CBC Glucose tolerance, 1 hour Patient presents today for a routine obstetrics appointment. Patient is currently 22w1d with a Estimated Date of Delivery: 06/25/24. Reviewed recent MFM appt with pt in detail. Pt has appt with MFM on . Will NST/BPPs at 34 weeks Documented by Gayle Hendricks LPN on behalf of: Johnathan Recinos DO documented in this encounter [facility] 02-15-2024 History of Present illness Narrative [facility] Maternal- [facility] Consult Note Reason For Consult: AMA, history of section x3, pyelonephritis follow up HPI: Prosper Ruiz is a 38 y.o. at 21w2d with Estimated Date of Delivery: 06/25/24 based on LMP=US at who presented for consultation from Johnathan Ledezma DO regarding Chief Complaint Patient presents with AMA I have reviewed the pertinent available patient records including but not limited to notes, labs and images She presents today with her . She reports that she is doing well. She reports normal movements and she denies leakage of fluid, contractions or vaginal bleeding. She denies fever, chills, nausea, vomiting, shortness of breath, chest pain, headache, blurry vision, right upper quadrant pain or edema. Complications: Recurrent UTIs Recent hospitalization for pyelonephritis in the hospital with a concern for sepsis she was stabilized sent home on oral antibiotics. Currently on keflex. Asymptomatic. Advanced maternal age Obesity Hx of CD x3 the patient has completed childbearing and desires tubal Bipolar 1 Disorder on lamotrigine, latuda and venlafaxine. Follows with psychiatry. Doing well with mood Delivery at 32 weeks for twins PROM Hyperemesis resolved s/p zofran pump History of a child with hydrocephalus her daughter passed age 10 following a seizure. Genetic testing was performed on her child and no genetic cause was found. No other affected family members. Vape: breeze 2500 puffs over a week and half. Denies family history of: Learning difficulties, congenital anomalies, DVT/VTE, early-onset cancer, early-onset cardiac disease or other inherited conditions Cell free DNA: low risk cell free DNA Denies alcohol or other substance use in Denies exposure to cat litter, farming animals, toxic exposure to chemical at work/environment Review of systems: Review of systems was noncontributory OB Hx: OB History Para Term AB Living 6 3 2 1 2 3 SAB IAB Ectopic Multiple Live Births 2 0 0 1 4 # Outcome Date GA Lbr Migel/2nd Weight Sex Type Anes PTL Lv 6 Current 5 Term 10/11/11 40w0d 3.175 kg M CS-LTranv SYLVIA 4 Term 08/10/09 40w0d 3.175 kg F CS-LTranv DEC Comments: hydrocephalus 3A 02/26/07 32w0d 1.814 kg F SYLVIA 3B 02/26/07 32w0d 2.268 kg F CS-LTranv SYLVIA 2 SAB 1 SAB PREECLAMPSIA SCREEN ([place] Preventive Services Task Force) Patient is at high risk if 1 or more factors present. Incidence of preeclampsia is >= 8%: Prior preeclampsia NO Multiple gestation NO Chronic hypertension NO Type 1 or 2 diabetes NO Renal disease NO Autoimmune disease NO (Lupus, APLS) Patient is at moderate risk is several risk factors are present: Nulliparity NO Obesity (BMI >= 30) YES Family history of preeclampsia NO (Mother, sister) NO Sociodemographic characteristics NO (AA, low socioeconomic status) Age >= 35 YES Personal history factor NO (Previous SGA, adverse outcome, > 10 years from last ) PMH: Past Medical History: Diagnosis Date Bipolar 1 disorder ([facility]) Depression PSHIST: Past Surgical History: Procedure Laterality Date APPENDECTOMY SECTION CHOLECYSTECTOMY Allergies: Allergies Allergen Reactions Sulfamethoxazole Hives Trimethoprim Hives Meds: Prior to Admission medications Medication Sig Start Date End Date Taking? Authorizing Provider acetaminophen (TYLENOL EXTRA STRENGTH) 500 mg tablet Take 2 tablets (1,000 mg total) by mouth every 6 (six) hours as needed for pain. Not In System Ref Prov buPROPion (WELLBUTRIN) 100 mg tablet Take 50 mg by mouth 2 (two) times a day. Patient not taking: Reported on 01/25/2024 Not In System Ref Prov CEPHalexin (KEFLEX) 500 mg capsule Take 1 capsule (500 mg total) by mouth every 6 (six) hours for 14 days. 02/09/24 02/23/24 Edi Conti MD CEPHalexin (KEFLEX) 500 mg capsule Take 1 capsule (500 mg total) by mouth in the morning for 180 days. Take keflex 500mg once daily after finishing the 2 weeks of taking keflex 4 times a day This is for UTI suppression in . 02/24/24 08/22/24 Yeny Mcintyre DO lamoTRIgine (LaMICtal) 25 mg tablet Take 8 tablets (200 mg total) by mouth in the morning. Not In System Ref Prov lurasidone (LATUDA) 40 mg tablet Take 60 mg by mouth in the morning. Not In System Ref Prov venlafaxine XR (EFFEXOR XR) 37.5 mg 24 hr capsule Take 1 capsule (37.5 mg total) by mouth in the morning. Not In System Ref Prov ziprasidone (GEODON) 80 mg capsule Take 120 mg by mouth 2 (two) times a day with meals. Patient not taking: Reported on 01/25/2024 Not In System Ref Prov SH: Social History Socioeconomic History Marital status: Spouse name: Not on file Number of children: Not on file Years of education: Not on file Highest education level: Not on file Occupational History Not on file Tobacco Use Smoking status: Former Smokeless tobacco: Never Tobacco comments: PT IS A VAPER Vaping Use Vaping status: Every Day Substances: Nicotine, Flavoring Devices: Disposable Passive vaping exposure: Yes Substance and Sexual Activity Alcohol use: Never Drug use: Never Sexual activity: Yes Partners: Male Other Topics Concern Not on file Social History Narrative Not on file Social Drivers of Health Financial Resource Strain: Not on file Food Insecurity: No Food Insecurity (02/15/2024) Hunger Screening Food Insecurity - Worry: Never True Food Insecurity - Inability: Never True Transportation Needs: Not on file Physical Activity: Not on file Stress: Not on file Social Connections: Not on file Interpersonal Safety: Not on file Housing Instability: Not on file Physical Exam: Vital Signs Vitals: 02/15/24 1303 BP: 123/74 Pulse: 94 FHT 148 bpm Physical Exam: Gen: Not in acute distress, alert and oriented. Eyes: Pupils equal and reactive Chest: Nonlabored breathing Cardiac: Pulse was regular on vital signs assessment Abdomen: Gravid Skin/extremities: Appears intact. No visible lesions MS:no visible edema Neuro: No focal deficits Notes/Imaging/Labs reviewed Microbiology Results No results found for the last 168 hours. Ultrasound findings Pertinent Ultrasound findings are . Electronically Signed Final Report 02/09/2024 11:51 IMPRESSION: IMPRESSION: 1. Single intrauterine , size consistent with assigned LISA. 2. Transvaginal Cervical Length measures 4.4 cm. Assessment/Plan 38 y.o. @ at 21w2d with Estimated Date of Delivery: 06/25/24 here for consultation regardin. 21 weeks gestation of - aspirin 81 mg; Take 1 tablet once a day and stop a week before delivery Dispense: 30 tablet; Refill: 6 2. Multigravida of advanced maternal age in second trimester The patient was informed of the associated increased risk in obstetric morbidities such as feteal aneuploidy, placental abruption, delivery and preeclampsia in the setting of advanced maternal age. Available epidemiologic evidence demonstrates that women > 35 and particularly >/= 40 have an increased risk of unexplained stillbirth. Would recommend also baseline maternal echocardiogram and EKG for patient >=40. At age 38 y.o. Ms. Prosper Ruiz's age based aneuploidy risks are: The risk of trisomy 21 (Down syndrome) is 1:236 The risk of trisomy 18 (Edward syndrome) is 1:921 The risk for any chromosomal abnormality is 1:104 Has low risk cell free DNA Not interested in amniocentesis 3. Pyelonephritis affecting in second trimester S/p recent hospitalization. Compliant with keflex. After she finishes her therapeutic course please obtain urine culture. She will need suppression until end of and consider up to 6 weeks Risks of pyelonephritis to reviewed Educated on signs and symptoms Urine culture each trimester recommended 4. Bipolar disease during in second trimester ([facility]) I reviewed with the patient that stability of mood for 6 to 24 months prior to is predictive of a lower risk of recurrent mood episodes during and . Bipolar affective disorder in is associated with an increased risk for recurrent mood episodes during and especially in the period such as depression and psychosis. Treatment with psychotropics has been shown to decrease the frequency of recurrence of these episodes. Lamictal is a first-line medication with a favorable safety profile. Due to metabolic changes in , it is likely that she will need to have serum levels of her lamotrigine checked in the late 2nd and 3rd trimester in order to ensure adequate dosing. While monotherapy with low doses of psychotropics and mood stabilizers is typically the rule of thumb during , Lurasidone is a second-line agent and as an atypical antipsychotic. Based on animal studies not expected to increase risk for congenital anomalies. Risks of withdrawal and extrapyramidal effects on reviewed. Link Trainer should be notified. Lack of controlled human data reviewed. She is currently on Effexor. Discussed that overall it has not been correlated with increased risk for congenital anomalies. Spontaneous loss and preeclampsia with SNRIs. Reviewed the risk of pulmonary hypertension in less than 05/999 fetus exposure to SSRI, SNRI. In addition we discussed withdrawal and reviewed with her that her baby might experience temporary signs and symptoms of discontinuation -- such as jitters, irritability, poor feeding and respiratory distress -- for up to a month after . Reviewed with the patient that based on current studies it is not known if venlafaxine increases the chance for behavioral learning issues for the child. Venlafaxine passes into breast milk. Side effect have been rarely reported and if they are concerned infant blood levels can be taken. Also based on the available evidence it is not known if venlafaxine is associated with other -related problems. She vocalized understanding. Patient desires to continue the above medications. Accepts risks. She should continue to closely follow with her mental health team. 5. Obesity affecting in second trimester, unspecified obesity type - aspirin 81 mg; Take 1 tablet once a day and stop a week before delivery Dispense: 30 tablet; Refill: 6 6. BMI 39.0-39.9,adult Reviewed today the diagnosis as well as risks associated with obesity during . Compared with normal-weight women, obese women are at increased risk of cardiac dysfunction, proteinuria, sleep apnea, nonalcoholic fatty liver disease, gestational diabetes mellitus, and preeclampsia. Obese gravidas are at an increased risk for stillbirth. Reviewed that some women do not gain weight during and that is acceptable as long as that is interval growth. Reviewed that should not be the time to target weight loss. Early screening for glucose intolerance (gestational diabetes or overt diabetes) should be based on risk factors, including maternal BMI of 30 or greater, known impaired glucose metabolism, or previous gestational diabetes. For patients with prepregnancy BMI of 35.0-39.9, weekly surveillance may be considered beginning by 37 0/7 weeks of gestation. For patients with prepregnancy BMI 40 or greater, weekly surveillance may be considered beginning at 34 0/7 weeks of gestation. Recommended weight gain is as follows: For women with BMI < 18.5: 28-40 lbs For women with BMI 18.5-24.9: 25-35 lbs For women with BMI 25-29.9: 15-25 lbs For women with BMI >30: 11-20 lbs ACOG suggests the following: - Preconception counseling to encourage weight loss. Even a 5-7% weight loss can improve metabolic function. - Inadequate weight gain and gestational weight loss should not be encouraged, as this is associated with increased risk of SGA. - Nutrition counseling. - Screening for gestational diabetes in obese women at the first visit, and again at 24-28 weeks if the initial screen is negative. - Screening for FERN at the first visit, and referral to Sleep Medicine if FERN is suspected - Consideration for antepartum anesthesia consultation for women with a BMI>40 kg/m2, and especially in those women with FERN. - Place SCDs prior to cesaeran, and continue . For prevention of venous thromboembolism in ywen-eais-xnom groups, pharmacologic thromboprophylaxis should be considered in addition to pneumatic compression devices. Weight-based dosage for venous thromboembolism thromboprophylaxis may be considered rather than BMI-stratified dosage strategies in class III obese women after delivery. For women with a BMI>40 kg/m2, consider prophylactic low molecular weight heparin therapy for 3-5 days after or vaginal delivery. This is in addition to the use of sequential compression devices for the first 12-24 hours after surgery. For this extreme obesity, evidence favors a weight-based regimen of 0.5 mg/kg every 12 hours as thromboprophylaxis. 7. History of section complicating History of section x3, the patient has completed childbearing and desires tubal ligation. Risks of repeat section reviewed. 8. Vapes nicotine containing substance I discussed with the patient that use of tobacco products, including cigarette smoking, smokeless tobacco, and electronic cigarettes during is one of the most important modifiable risk factors associated with adverse maternal, , and outcomes. Adverse outcomes for women include but not limited to subfertility, long-term risk for conditions such as asthma, hypertension and lung cancer. Tobacco use has also been associated with numerous adverse outcomes such as miscarriage, placental abruption, premature rupture of membranes, labor and delivery, low weight and stillbirth. In particularly a meta analysis of 142 studies, showed that any active maternal smoking can increase the risk of stillbirth by nearly 50% (summary RR 1.46, 95% CI 1.38-1.54) and the risk of by over 20 percent (summary RR 1.22, 95% CI 1.14-1.30). In addition, the risks of stillbirth, and increased with the amount smoked by the mother. [Emily et al., Am J Epidemiol. 2016 Richi;184(2):87-97]. morbidities associated with maternal smoking include double the risk for sudden syndrome (adjusted OR 2.44, 95% CI 2.31-2.57) [Fredi et al., Pediatrics. 2019;143(4)]. Other morbidities include respiratory infections (e.g bronchitis, pneumonia), asthma, otitis media, low reading and spelling scores, shorter attention spans, hyperactivity and decreased school performance (of note, it is difficult to separate the impact of maternal smoking and other confounders). In addition we reviewed that exposure to secondhand smoke during also appears to have adverse effects on the fetus, child, and adult. Cessation of vaping strongly recommended. 9. Current rao with 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, antepartum History of a child with hydrocephalus her daughter passed age 10 following a seizure. Genetic testing was performed on her child and no genetic cause was found. No other affected family members On ultrasound today no ventriculomegaly. Amniocentesis reviewed and declined. 10. History of delivery, currently She has history of delivery with twin gestation. Following that she has had term deliveries. On anatomy scan normal cervical length. Reviewed repeating cervical length at 22 weeks again and if short <2.5 cm patient to be further evaluated for vaginal progesterone and cerclage. Educated on signs and symptoms of labor Candidate for low dose aspirin for preeclampsia prevention Recommendations: Low dose aspirin 81 mg q.day for preeclampsia prevention Cervical length at 22 weeks at [facility] Follow up survey scheduled Serial growth assessments every 4 weeks after the anatomy scan can be done at OB office. ventricles should be measured at each US. If >=10 mm or concern for hydrocephalus refer to M. If you would like [facility] to do the growth US please refer paient testing to be initiated at 34 weeks weekly NST and DVP due to AMA and obesity or sooner if another indication arises through OB office Delivery recommended at 39 weeks, earlier as clinically indicated Route of delivery desires a tubal Location of delivery: local hospital Cont keflex therapeutic and transition to suppression until 6 wks pp. Please check urine culture after therapeutic dose is completed each trimester thereafter or sooner if patient has symptoms To continue to follow with psychiatry Vaping cessation recommended Plan reviewed with patient. She vocalized understanding all questions answered. The patient is to continue with routine care in your office Thank you for allowing me to participate in her care. Please contact me if you have any concerns. Malena Cardona MD, FACOG (she/hers) Maternal- Medicine [facility] [address] [place] [address] This document was created with [email or web address] technology. Though I make every effort to review the dictation as it is transcribed, on occasion the spoken word can be misinterpreted by the technology leading to inappropriate words, phrases, or sentences. This note is addressed to the requesting provider as a consultation for clinical guidance. Specific medical abbreviations are occasionally used and those are generally approved by the [place]?Board of?Obstetrics and?Gynecology?as well as?Jeri lane abbreviations. The above plan of care was based solely on the diagnoses for which a consultation was requested. ?More frequent testing may be indicated based on her other medical/obstetrical conditions. The management of other or medical conditions is beyond the scope of requested consultation and will continue to be followed by the primary bleach mixer or primary care provider. Note to patient: The Cures Act makes medical notes like these available to patients in the interest of transparency. However, be advised this is a medical document. It is intended as peer to peer communication. It is written in medical language and may contain abbreviations or verbiage that are unfamiliar. It may appear blunt or direct. Medical documents are intended to carry relevant information, facts as evident, and the clinical opinion of the practitioner. Headache/epigastric pain/blurry vision/swelling? Daily headaches, no visual changes, no epigastric pain or swelling Cramping/contractions? no Abnormal vaginal discharge? no Spotting/vaginal bleeding? no Loss or gush of fluid like your water may have broken? no Do you have cats at home? yes Do you change the litter box (reason: risk of toxoplasmosis)? Kids do it Genetic testing done this here or other office? yes Have you been seen here at [facility] in a previous ? yes Recent ER visits or hospitalizations? 02/07 kidney and bladder infection Bring blood sugar log or meter with you today? (Please bring them with you for every visit at [facility]) na Flu vaccine (Mar-June)? na Any concerns that you would like me to mention to the provider today? no documented in this encounter [facility] [employer] 04-27-2023 Evaluation note Encounter Date Diagnosis Assessment [...] condition. Mar, Sore throat (ICD-10 - J02.9) [facility] Other 01-10-2023 Evaluation note* Encounter Date Diagnosis [...] weeks for the cough to go away [facility] Other 11-07-2022 NoteIndication: Abdominal pain. Comparison: None [...] Electronically authenticated by: SURJIT FREITAS Date: 2022-03-07 20:49[facility]11-19-2020 NoteHPI Staff This visit was conducted via phone communications from my office due to the restrictions of the COVID-19 pandemic. No physical exam was conducted due to audio only communication with the patient located at [address] [place] [phone], with no one else. If it is determined that the patientshould be evaluated in person, the patient will be directed to the appropriate clinic or venue. Thepatient or their guardian verbally consented to this visit. Phone time was 15 minutes discussing health issues with counseling and coordination of care. Subjective Interval History/HPI Patient presents today for follow up via telehealth phone from [facility]. Patient started Latuda 20mg last evening [...] anxiety, # 30 tab(s), Refills(s) 2, Pharmacy: [facility]/pharmacy #[id number], 161, cm, 12/23/19 10:18:00 EDT, Height/Length Dosing, 82, kg, 12/23/19 10:18:00 EDT, Weight Dosing Orders: lurasidone, 20 mg = 1 tab(s), Oral, Daily, with 350 calories; begin this dose first then progress to next dose of 40mg, X 1 week(s), # 7 tab(s), Refills(s) 0, Pharmacy: [facility]/pharmacy #[id number], 161, cm, 12/23/19 10:18:00 EDT, Height/Length Dosing, 82, kg, 12/23/19 10:... lurasidone, 40 mg = 1 tab(s), Oral, Daily, with 350 calories, # 30 tab(s), Refills(s) 1, Pharmacy: [facility]/pharmacy #[id number], 161, cm, 12/23/19 10:18:00 EDT, [...] (generalized anxiety disorder) Hidr (more content not included)...[facility]: Result Comment: Electronically Signed By: Carlota RODRIGUEZ CNP\.br\Date and Time Signed: 03/19/20 14:27 [id number] NoteI Staff This visit was conducted via two-way, real-time interactive video communications from my office using [employer] due to the restrictions of the COVID-19 pandemic. No physical exam was conducted other than those areas of the body visible to telecommunications with the patient located at [address] [place] [phone], with no one else in attendance. If [...] Ordered: TELEHEALTH Office Visit Level 3 Est 95894 General Treatment Plan Maintain medication regimen _Improve [...] Alcohol Use, 10/05/2011 Employment/School Employed, 03/18/2019 Home/Environment Sylvia (more content not included)...[facility] DaytonComment on above: Result Comment: Electronically Signed By: Carlota RODRIGUEZ CNP\harshil\Date and Time Signed: 03/05/20 13:32 [id number] NoteHPI Staff This visit was conducted via two-way, real-time interactive video communications from my office using [employer] due to the restrictions of the COVID-19 pandemic. No physical exam was conducted other than those areas of the body visible to telecommunications with the patient located at [address] [place] [address], with no one else in attendance. If [...] anxiety, # 30 tab(s), Refills(s) 1, Pharmacy: [facility]/pharmacy #[id number], 161, cm, 12/23/19 10:18:00 EDT, Height/Length Dosing, 82, kg, 12/23/19 10:18:00 EDT, Weight Dosing alprazolam, 0.5 mg = 1 tab(s), Oral, TID, PRN for anxiety, # 30 tab(s), Refills(s) 1, Pharmacy: [facility]/pharmacy #[id number], 161, cm, 12/23/19 10:18:00 EDT, Height/Length Dosing, 82, kg, 12/23/19 10:18:00 EDT, Weight Dosing aripiprazole, See Instructions, 1.5 tab po qAM, # 30 tab(s), Refills(s) 2, Pharmacy: [facility]/pharmacy #[id number], 161, cm, 12/23/19 10:18:00 EDT, Height/Length Dosing, 82, kg, 12/23/19 10:18:00 EDT, Weight Dosing aripiprazole, See Instructions, 1 tab po qAM, # 30 tab(s), Refills(s) 5, [id number] 161, cm, 12/23/19 10:18:00 EDT, Height/Length Dosing, 82, kg, 12/23/19 10:18:00 EDT, Weight Dosing cyclobenzaprine, 10 mg = 1 tab(s), Oral, TID, PRN for spasm, # 30 tab(s), Refills(s) 1, Pharmacy: [facility]/pharmacy #[id number], 161, cm, 06/13/19 14:39:00 EST, Height/Length Measured, 82, kg, 06/13/19 14:39:00EST, Weight Measured cyclobenzaprine, 10 mg = 1 tab(s), Oral, TID, PRN for spasm, # 30 tab(s), Refills(s) 1, [id number], 161, cm, 12/23/19 10:18:00 EDT, Height/Length Dosing, 82, kg, 12/23/19 10:18:00 EDT, Weight Dosing General Treatment Plan Maintain medication regimen _Improve mood stability _Improve anxiety control _Improve social and interpersonal functioning Clinical Global Impression 62 Prognosis progressing Follow-up With When Contact Information Carlota RODRIGUEZ CNP In 4 weeks Additional Instructions: (more content not included)...[facility] DaytonComment on above:Result Comment: Electronically Signed By: Carlota RODRIGUEZ CNP\.br\Date and Time Signed: 01/27/20 22:35 [id number] NoteI Staff This visit was conducted via two-way, real-time interactive video communications from my office using Apps[employer] due to the restrictions of the COVID-19 pandemic. No physical exam was conducted other than those areas of the body visible to telecommunications with the patient located at [address] [place] [address], with no one else in attendance. If [...] Ordered: TELEHEALTH Office Visit Level 3 Est 98939 General Treatment Plan Maintain medication regimen _Improve [...] Use:. Never Smokeless Tob (more content not included)...[facility] DaytonComment on above:Result Comment: Electronically Signed By: Carlota RODRIGUEZ CNP\.br\Date and Time Signed: 01/13/20 09:11 [id number] NoteI Staff This visit was conducted via two-way, real-time interactive video communications from my office using [employer] due to the restrictions of the COVID-19 pandemic. No physical exam was conducted other than those areas of the body visible to telecommunications with the patient located at [address] [place] [phone], with no one else in attendance. If [...] anxiety, # 30 tab(s), Refills(s) 1, [id number] 161, cm, 12/23/19 10:18:00 EDT, Height/Length Dosing, 82, kg, 12/23/19 10:18:00 EDT, Weight Dosing alprazolam, 0.5 mg = 1 tab(s), Oral, TID, PRN for anxiety, # 30 tab(s), Refills(s) 1, Pharmacy: [facility]/pharmacy #[id number], 161, cm, 06/13/19 14:39:00 EST, Height/Length Measured, 82, kg, 06/13/19 14:39:00 EST, Weight Measured aripiprazole, See Instructions, 1 tab po qAM, # 30 tab(s), Refills(s) 0, Pharmacy: [facility]/pharmacy #[id number], 161, cm, 12/23/19 10:18:00 EDT, [...] Allergies Bactrim Social History (more content not included)...[facility] DaytonComment on above:Result Comment: Electronically Signed By: Carlota RODRIGUEZ CNP\.mati\Date and Time Signed: 12/23/19 16:37 [id number] NoteI Staff This visit was conducted via two-way, real-time interactive video communications from my office using [employer] due to the restrictions of the COVID-19 pandemic. No physical exam was conducted other than those areas of the body visible to telecommunications with the patient located at [address] [place] [address], with no one else in attendance. If [...] q24hr, # 30 tab(s), Refills(s) 2, Pharmacy: [facility]/pharmacy #[id number],161, cm, 06/13/19 14:39:00 EST, Height/Length Measured, 82, kg, 06/13/19 14:39:00 EST, Weight Measured cyclobenzaprine, 10 mg = 1 tab(s), Oral, TID, PRN for spasm, # 30 tab(s), Refills(s) 1, Pharmacy: [facility]/pharmacy #[id number], 161, cm, 06/13/19 14:39:00 EST, [...] Employment/School Employed, 03/18/2019 Home/Environment (more content not included)...[facility] DaytonComment on above:Result Comment: Electronically Signed By: Carlota RODRIGUEZ CNP\.br\Date and Time Signed: 12/02/19 16:38 EDTChief complaint+Reason for visit Narrative* Chief Complaint Nausea, diarrhea, fe zhou Reason for Visit Contact with and (guillen spected) exposure to covid-19 Sore throat [facility] Work Phone: Evaluation note* Diagnosis Onset Date Resolution Status Contact with and (suspected) exposure to covid-19 noneactive Sore throat noneactive [facility] Work Phone: Evaluation note* Diagnosis 21 weeks gestation of - Primary Obesity affecting in second trimester, unspecified obesity type [facility] Diagnosis 21 weeks gestation of - Primary Multigravida of advanced maternal age in second trimester Pyelonephritis affecting in second trimester Bipolar disease during in second trimester ([facility]) Obesity affecting in second trimester, unspecified obesity type BMI 39.0-39.9,adult History of section complicating Previous delivery, unspecified as to episode of care or not applicable Vapes nicotine containing substance Current rao with 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, antepartum History of delivery, currently with history of pre-term labor [facility] Diagnosis 22 weeks gestation of Second trimester state, incidental Diabetes mellitus screening Screening for diabetes mellitus documented in this encounter [facility] N[facility]ative - Reported* Type Description Date Medical History Bipolar Surgical History appendectomy Surgical History x 3 Hospitalization History see above surgical histo ry [place] [facility] [employer] Other InstructionsNot on filedocumented in this encounter [facility] [facility] CareInstructions* Attachments The following attachments cannot be sent through Care Everywhere. * Preeclampsia (Bulgarian) * Movement (Bulgarian) [facility] Directives No Advanced Directives Records Found Advance Directive Response Recorded Date/ Time Advance Directives No June 9:31pm Advance Directive Response Recorded Date/ Time Advance Directives No June 10:31pm Date Activated Date Inactivated Comments 02/08/2024 2:59 AM 02/09/2024 5:47 PM Date Activated Date Inactivated Comments 02/08/2024 2:59 AM 02/09/2024 5:47 PM Chief Complaint and Reason for Visit Chief Complaint allergic reaction Assessments No Assessments Information Available Discharge Instructions Additional Instructions Follow up with your doctor as discussed. If you need to use an Epi-Pen, then you need to come to the hospital right away. This is not sufficient treatment on its own. You may need to be seen by an animal hospital office supervisor if you have other events like this without definite egg exposure. Summary Purpose Family History No Family History Records Found Relationship Condition Age at Onset Recorded Date/T alo father Diabetes mellitus Unknown Hypertension Unknown Additional Source Comments INFORMATION SOURCE (unrecogn ized section and content) DATE CREATED AUTHOR 10/30/2020 Pawel Pepper [facility] DATE CREATED AUTHOR AUTHOR'S ORGANIZ ATION 04/29/2022 [facility] DATE CREATED AUTHOR AUTHOR'S ORGANIZ ATION 02/23/2024 [facility] EPIC DATE CREATED AUTHOR AUTHOR'S ORGANIZ ATION 02/26/2024 [facility] REASON FOR VISIT (unrecogniz ed section and content) Reason Comments AMA Care Teams (unrecognized sec tion and content) Team Status: Active Member Role Status Dates Kimberlyn Xie NP-C Primary Care Provider Active Team Status: Inactive Member Role Status Dates Kimberlyn Xie NP-C Primary Care Provider Active Start: August 18, 2023 End: August 18, 2023 Sanaz Lockwood APRN Attending Provider Active Start: August 18, 2023 End: August 18, 2023 [employer] Relationship Specialty Start Date End Date No Pcp, [place] [address] PCP - General Family Medicine 03/12/19 [employer] Relationship Specialty Start Date End Date No Pcp, [place] [address] PCP - General Family Medicine 03/12/19 Goals (unrecognized section and content) Goals may [...] BE BASED ON THE PRIMARY CLINICAL RECORDS. [employer] [facility]. provides no warranty or guarantee of the accuracy or completeness of information in this document.
[2024-03-06 12:07] LABS: Clarity Urine CLEAR (CLEAR); Color Urine DK. RED (YELLOW)
[2024-03-06 12:09] VITALS: BP 111/58; PULSE 84
[2024-03-06 12:13] LABS: Bilirubin Urine COLOR INTERFERENCE (NEGATIVE); Blood Urine COLOR INTERFERENCE (NEGATIVE); Glucose Urine UA COLOR INTERFERENCE mg/dL (NEGATIVE); Ketones Urine COLOR INTERFERENCE mg/dL (NEGATIVE); Leukocyte Esterase Urine COLOR INTERFERENCE (NEGATIVE); Nitrite Urine COLOR INTERFERENCE (NEGATIVE); Protein Urine COLOR INTERFERENCE mg/dL (NEG/TRACE); Urine Microscopic Indicated YES; pH Urine COLOR INTERFERENCE (5.0-9.0)
[2024-03-06 12:14] LABS: Urobilinogen Urine COLOR INTERFERENCE EU/dL (0.2-1.0)
[2024-03-06] MEDS: 0.9 % SODIUM CHLORIDE 1,000 ML 999 ML IV (12:15)
[2024-03-06 12:17] LABS: Bacteria Urine TRACE #/HPF (NONE SEEN); Cast Seen? NONE SEEN #/LPF (NONE SEEN); Crystals Seen? None Seen #/HPF (None Seen); Mucus Urine NONE SEEN (NONE SEEN); RBC Urine >100 #/HPF (0-2); Squamous Epithelial Cell Urine FEW #/LPF (NONE/RARE); Urine Culture Indicated NO; WBC Urine 0-2 #/HPF (NONE SEEN)
[2024-03-06 12:22] VITALS: TEMP 37
--- NOTE | 2024-03-06 12:37 | PC.NURSE ---
called and notified of UA results and c/opain, orders received.
[2024-03-06] MEDS: ACETAMINOPHEN 500 MG TABLET 1000 MG PO (12:50)
[2024-03-06] MEDS: CEFAZOLIN SODIUM/DEXTROSE,ISO 2 GM/50 ML PIGGYBACK IV (12:51)
[2024-03-06] MEDS: 0.9 % SODIUM CHLORIDE 1,000 ML 125 ML IV ×2 (13:54→22:14)
--- NOTE | 2024-03-06 14:32 | US_ITS ---
[address] [address] Patient Name: PROSPER RUIZ MRN: [id number] date: 1985 Sex: F Assigned Patient Location: [facility] Current Patient Location: [facility] Accession/Order Number: [id number] Exam Date: 03/06/2024 14:35 Report Date: 03/06/2024 15:52 At the request of: MAKENZIE SO Procedure: US renal BI EXAMINATION: US renal BI HISTORY: hematuria and back pain COMPARISON: No relevant comparison available. TECHNIQUE: Ultrasound examination was performed of the bladder. FINDINGS: Right Kidney: Normal in size, contour and echotexture. The cortex measures 1.2 cm. No solid cortical mass, hydronephrosis or obstructing nephrolithiasis Height: 4.76 cm Length: 12.26 cm Width: 5.27 cm Left Kidney: Normal in size, contour and echotexture. The cortex measures 1.4 cm. No solid cortical mass, hydronephrosis or obstructing nephrolithiasis Height: 5.78 cm Length: 13.15 cm Width: 5.05 cm Urinary bladder: 135 mL. No focal abnormality in the visualized portions US/US renal BI IMPRESSION: No abnormality Electronically authenticated by: [employer] BUTTERFIELD Date: 03/06/2024 15:52
[2024-03-06 14:54] LABS: Basophils Percent Auto 0.2 % (0.2-2.0); Eosinophils Absolute Auto 0.1 10^3/uL (0.0-0.7); Eosinophils Percent Auto 0.5 % (0.9-7.0); Hematocrit 34.8 % (36.0-48.0); Hemoglobin 11.4 g/dL (12.0-16.0); Immature Granulocytes Abs Auto 0.04 10^3/uL (0.00-0.03); Immature Granulocytes Pct Auto 0.4 % (0.0-0.5); Lymphocytes Absolute Auto 2.1 10^3/uL (1.2-3.8); Lymphocytes Percent Auto 21.9 % (20.5-60.0); Mean Corpuscular HGB Conc 32.8 g/dL (29.9-35.2); Mean Corpuscular Hemoglobin 30.6 pg (26.7-34.0); Mean Corpuscular Volume 93.5 fL (81.0-99.0); Mean Platelet Volume 10.5 fL (9.5-13.5); Monocytes Absolute Auto 0.4 10^3/uL (0.3-0.8); Platelet Count 253 10^3/uL (150-450); Red Blood Count 3.72 10^6/uL (4.20-5.40); Red Cell Distribution Width 14.3 % (11.0-15.0); White Blood Count 9.6 10^3/uL (4.0-11.0)
[2024-03-06] MEDS: NALBUPHINE HCL 10 MG/ML AMPULE IV ×2 (15:04→20:54)
[2024-03-06 15:09] LABS: Estimated GFR (African America >60 (>=60 mL/min/1.73m^2); Estimated GFR (Non-African Ame >60 (>=60 mL/min/1.73m^2)
[2024-03-06 20:15] VITALS: BP 109/62; PULSE 81; TEMP 36.6
[2024-03-06 20:16] VITALS: BP 109/62; PULSE 81
[2024-03-06] MEDS: CEFAZOLIN SODIUM/DEXTROSE,ISO 1 GM/50 ML PREMIX IV (20:21)
[2024-03-07 00:30] VITALS: BP 92/51; PULSE 65; TEMP 36.7
[2024-03-07] MEDS: CEFAZOLIN SODIUM/DEXTROSE,ISO 1 GM/50 ML PREMIX IV (04:16)
[2024-03-07 04:19] VITALS: BP 91/51; PULSE 72; TEMP 36.4
[2024-03-07] MEDS: ONDANSETRON PF 4 MG/2 ML VIAL IV ×2 (06:34→16:20)
[2024-03-07] MEDS: 0.9 % SODIUM CHLORIDE 1,000 ML 125 ML IV ×2 (07:26→17:06)
[2024-03-07] MEDS: PIPERACILLIN SODIUM/TAZOBACTAM 4.5 GM in 0.9 % SODIUM CHLORIDE 50 ML IV (07:43)
[2024-03-07 12:30] VITALS: TEMP 36.7; O2SAT 97
[2024-03-07 12:31] VITALS: BP 110/56; PULSE 88
[2024-03-07] MEDS: NALBUPHINE HCL 10 MG/ML AMPULE IV ×2 (12:51→19:19)
[2024-03-07] MEDS: PIPERACILLIN SODIUM/TAZOBACTAM 3.375 GM in 0.9 % SODIUM CHLORIDE 50 ML IV (16:05)
[2024-03-07 19:11] VITALS: BP 120/64; PULSE 86
--- NOTE | 2024-03-07 20:34 | P.ON_ITS ---
Brief Operative Note Date of procedure: 03/07/24 Pre-op diagnosis general: iup at 39wks+, recurrent decelerations Post-op diagnosis: same as pre-op Procedure: NAME OF PROCEDURE: [ section ] PROCEDURE: Patient was taken back to the Operating Room where she was given a spinal anesthesia with Duramorph without difficulty. She was prepped and draped in the normal sterile fashion. A Pfannenstiel skin incision was then made 2 cm above the symphysis pubis and carried down to underlying rectus fascia using a Bovie. The fascia was incised in the midline and extended laterally using Greer scissors. Two Prabhu clamps were placed on the superior aspect of the fascia and dissected off the underlying rectus muscles. The same was performed on the inferior aspect as well. The muscles were then in the midline. Peritoneum was identified and entered bluntly. The peritoneum was then extended superiorly and inferiorly with good visualization of the bladder. The bladder blade was inserted. A low transverse incision was made on the patient's uterus and extended laterally digitally. The was then delivered atraumatically after the bladder blade was removed in the cephalic position. The cord was clamped and cut. Cord blood was obtained. The infant was handed off to awaiting team. The patient's placenta was spontaneously delivered. The uterus was then exteriorized. The uterus was cleared of all clots and debris. The bladder blade was reinserted. The patient's uterine incision was closed using #0 Vicryl in a running lock fashion. Excellent hemostasis was assured. The uterus was then returned to the patient's abdomen. The patient's abdomen was copiously irrigated using warm saline. Peritoneal gutters were cleared of all clots and debris. Again excellent hemostasis was assured. The patient's peritoneum was closed using 3-0 Vicryl in a running fashion. The patient's fascia was closed using #0 Vicryl in a running fashion. The patient's skin was closed using 4-0 Vicryl subcuticularly. The patient tolerated the procedure well. Sponge, lap, and needle counts were correct x2. The patient was taken to the Recovery Room in stable condition. Surgeon: Johnathan Recinos [employer]mergence Vehicle Crewmember: Sandra Hernandez Estimated blood loss (mL): 575 Pathology: other (placenta) Condition: stable Disposition: PACU
--- NOTE | 2024-03-07 20:35 | P.OBPRC_ITS ---
Procedure Breastfeeding Peer Counselor: Sandra Hernandez Estimated blood loss (mL): 575 Disposition: PACU Anesthesia type: Epidural
[2024-03-08 00:18] VITALS: BP 98/54; PULSE 80; TEMP 36.7
[2024-03-08] MEDS: PIPERACILLIN SODIUM/TAZOBACTAM 3.375 GM in 0.9 % SODIUM CHLORIDE 50 ML IV ×2 (00:26→07:59)
[2024-03-08] MEDS: 0.9 % SODIUM CHLORIDE 1,000 ML 125 ML IV (02:32)
[2024-03-08 04:32] VITALS: BP 97/54; PULSE 85
[2024-03-08 04:33] VITALS: BP 97/54; PULSE 85; TEMP 36.7
[2024-03-08 07:55] VITALS: BP 114/62; PULSE 77
[2024-03-08 08:14] VITALS: PULSE 77
--- NOTE | 2024-03-08 08:53 | P.OBHP_ITS ---
OB - H&P: HPI History of Present Illness Chief complaint: BACK PAIN 23 WEEKS : 6 Para: 3 Gestational age based on last menstrual period: 24 3/7wks Narrative: 38 yo at 24 3/7wks presents with uti and rt flank pain, ho of recurrent uti during , pt denies lof, vb, ctxns, pt denies abdominal pain, complains of nausea History of Present care: good care Ultrasounds: normal 1st trimester US Medical complications OB: none Labs Blood type: A (+) positive Review of Systems ROS Status of ROS: 10 or more systems reviewed and unremarkable except as noted in history and below [facility] Medical History (Updated 03/08/24 @ 09:02 by Johnathan Recinos DO) Bipolar affect, depressed ?F31.30 - Bipolar disorder, current episode depressed, mild or moderate severity, unspecified (ICD-10) Hyperemesis affecting , antepartum ?O21.0 - Mild hyperemesis gravidarum (ICD-10) Surgical History History of appendectomy ?Z90.49 - Acquired absence of other specified parts of digestive tract (ICD- 10) History of cholecystectomy ?Z90.49 - Acquired absence of other specified parts of digestive tract (ICD- 10) deliv NOS-unsp Social History Little interest or pleasure in doing things: not at all Feeling down, depressed, or hopeless: not at all Meds Home Medications and Allergies Home Medications ?Medication ?Instructions ?Recorded ?Confirmed ?Type aspirin 81 mg tablet,delayed 81 mg PO DAILY 03/07/24 03/07/24 History release lamotrigine 200 mg tablet 200 mg PO DAILY 03/07/24 03/07/24 History lurasidone 60 mg tablet 60 mg PO DAILY 03/07/24 03/07/24 History magnesium oxide 400 mg (241.3 mg 400 mg PO DAILY 03/07/24 03/07/24 History magnesium) tablet venlafaxine 37.5 mg 37.5 mg PO DAILY 03/07/24 03/07/24 History capsule,extended release 24 hr Allergies Allergy/AdvReac Type Severity Reaction Status Date / Time sulfamethoxazole (From Allergy Hives Verified 02/06/24 15:58 Bactrim) trimethoprim (From Bactrim) Allergy Hives Verified 02/06/24 15:58 Exam Constitutional Vital Signs, click to edit/add: Last Vital Signs Temp 98.1 F 03/08/24 04:33 Pulse 77 03/08/24 08:14 Resp 16 03/08/24 08:14 BP 114/62 03/08/24 07:55 Pulse Ox 97 03/07/24 12:30 O2 Del Method Room Air 03/08/24 08:14 Documenting provider has reviewed patient's vital signs: yes Common normals: no apparent distress Respiratory Common normals: normal respiratory effort and clear to auscultation bilaterally Cardio Common normals: regular rate and regular rhythm GI Common normals: Normal to inspection, nondistended, normoactive bowel sounds present Extremity Common normals: no calf tenderness OB - A/P Assessment and Plan (1) UTI (urinary tract infection): Assessment and Plan: iv abx pt given zosyn, iv antiemetics, iv fluid, pain control, pt states greatly improving, pt states would like to be discharge, rx called into pharmacy, instructions and precautions given, awaiting cultures, pt need to be seen next wekk (2) Flank pain: (3) Intrauterine :
== END 2024-03-08 09:40 | disposition home or self-care (01) ==
PROVIDERS: Admitting Provider Obstetrics & Gynecology; PCP Nurse Practitioner Family; Visit Provider Obstetrics & Gynecology
DX: O23.42 Unspecified infection of urinary tract in pregnancy, second trimester (principal); N39.0 Urinary tract infection, site not specified; O26.892 Other specified pregnancy related conditions, second trimester; R10.9 Unspecified abdominal pain; Z3A.24 24 weeks gestation of pregnancy
CPT/HCPCS: 36415; 76775; 81001; 82565; 84520; 85025; 87086; 87150; 87186; 96365; 96366; 96367; 96375; 96376; G0378; G0379; J0690; J2300; J2405; J2543

== ENCOUNTER 2024-03-21 09:53 | Outpatient (OUT) | payer BC, SELFPAY ==
--- OUTSIDE RECORDS SUMMARY | 2024-03-21 10:13 | XMS_ITS | CCD ---
Author Organization [facility] Inform[facility]ly [facility] Care Team Providers Care Shorer Name Role Phone Kimberlyn Xie Primary Care [...] Admitting Unavailable DR JAZIEL HILL Attending Unavailable ROJAS, KIMBERLYN Primary Care Unavailable Kaylah Han Unavailable Sanaz Lockwood Unavailable No Pcp, No Pcp Primary Care Provider Unavailabl e Unavailable Primary Care Provider Unavailabl e JOHNATHAN RECINOS Attending Unavailable LIZA DUQUE Attending Unavailable JOHNATHAN RECINOS Attending Unavailable JOHNATHAN RECINOS Attending Unavailable JORJE, JOHNATHAN Attending Unavailable LIZA DUQUE Attending Unavailable NATO LLOYD Admitting Unavailable NATO LLOYD Attending Unavailable REF PROV, NOT IN SYSTEM Referring Unavaila ble NO PCP, NO PCP Primary Care Unavailable JOSSELINE DONOVAN Consulting Unavailable TEJ ZENG Referring Unavailable NO PCP, NO PCP Primary Care Unavailable MALENA CARDONA Attending Unavailable LUCY RECINOSY R Referring Unavailable NO PCP, NO PCP Primary Care Unavailable JORJE, JOHNATHAN R Referring Unavailable NO PCP, NO PCP Primary Care Unavailable MARTIN RILEY Referring Unavailable NO PCP, NO PCP Primary Care Unavailable JORJELUCYY R Referring Unavailable NO PCP, NO PCP Primary Care Unavailable Unavailable Unavailable Unavailable Allergies Allergy Classification Reported Allergen(s) Allergy Type Date of Onset Reaction(s) Facility (2 sources) egg extract Drug Allergy 08-18-19 Vomiting [facility] (12 sources) Sulfamethoxazole; 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: [SULFAMETHOXAZOLE] Drug Allergy 08-18-19 24 [facility] (12 sources) Trimethoprim; 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: [TRIMETHOPRIM] Drug Allergy 08-18-19 24 [facility] (2 sources) Fish Containing Products Propensity to adverse reactions 08-18-19 24 Difficulty Breathing [facility] (1 source) Sulfamethoxazole / Trimethoprim Drug Allergy 02-04-20 13 [facility] (9 sources) Sulfamethoxazole / Trimethoprim Drug Allergy 11-24-19 24 hives, Unknown Txt4 Other (7 sources) Egg-Derived Products Drug Allergy 08-18-19 24 [...] (six) hours as needed for pain. Active [id number] 200 actuat albuterol 0.09 mg/actuat metered dose [...] aspirin 81 mg delayed release oral tablet (8 sources) Platelet Aggregation Inhibitor, Nonsteroidal Anti-inflammatory Drug [...] 2023 12:00am cephalexin 500 mg oral capsule (11 sources) Cephalosporin Antibacterial Start: 02-24-2024 End: 08-22-2024 cephalexin (Keflex) 500 MG capsule Indications: Flank pain , Acute cystitis with hematuria Take 1 capsule (500 mg) by mouth in the morning and 1 capsule (500 mg) at noon and 1 capsule (500 mg) in the evening and 1 capsule (500 mg) before bedtime. Do all this for 14 days. 56 capsule 03/07/2024 03/21/2024 Active Start: 02-09-2024 End: 02-23-2024 take 1 capsule by mouth every six hours CEPHalexin (KEFLEX) 500 mg capsule Take 1 capsule (500 mg total) by mouth every 6 (six) hours for 14 days. 56 capsule 02/09/2024 02/23/2024 Active dextromethorphan hydrobromide 15 mg / guaiFENesin 400 mg / pseudoephedrine hydrochloride 60 mg oral tablet (1 source) alpha-Adrenergic Agonist, Uncompetitive C-czwfqv-Q-aspartate Receptor Antagonist, Sigma-1 Agonist Start: 04-27-2023 take 4 tablets by mouth every twenty-four hours as needed Capmist DM 60-15-400 MG as needed Orally every 4-6 hours as needed, max 4 tablets in 24 hours for 5 days Mar, Active [id number] 0.3 ml EPINEPHrine 1 mg/ml auto-injector (2 [...] 2023 12:00am lamoTRIgine 200 mg oral tablet (14 sources) Mood Stabilizer, Anti-epileptic Agent Start: 08-18-2023 [...] 12:00am lurasidone hydrochloride 40 mg oral tablet (12 sources) Atypical Antipsychotic Start: 10-18-2023 take 1 [...] Active magnesium oxide 400 mg oral tablet (7 sources) Start: 01-09-2024 End: 01-08-2025 take 1 [...] PO Daily August 18, 2023 12:00am ondansetron 4 mg disintegrating oral tablet (4 sources) Serotonin-3 Receptor Antagonist Start: 03-08-2024 take 1 tablet by mouth every six hours as needed for nausea and vomiting and nausea and nausea ondansetron ODT (Zofran-ODT) 4 MG disintegrating tablet Indications: Nausea Take 1 tablet (4 mg) by mouth every 6 (six) hours if needed for nausea or vomiting for up to 30 doses 30 tablet 2 03/08/2024 Active Start: 08-18-2023 take 8 mg by mouth e very eight hours Ondansetron Hcl Active 8 MG PO Q8H 21 7 August 18, 2023 12:00am Start: 05-10-2022 take 1 tablet by crystal every eight hours as needed Zofran ODT [...] venlafaxine 37.5 mg extended release oral capsule (10 sources) Serotonin and Norepinephrine Reuptake Inhibitor Start: 08-31-2023 take 1 capsule by mouth once daily venlafaxine XR (Effexor XR) 37.5 MG 24 hr capsule Take 37.5 mg by mouth Daily 08/31/2023 Active Start: 08-18-2023 take 75 mg by mouth once daily Venlafaxine Active 75 MG PO Daily August 18, 2023 12:00am take 1 capsule by [facility] every twenty-four hours in the morning venlafaxine [...] Date Documented Da te Episodic/Chronic Abdominal pain (6 sources) Unspecified abdominal pain; 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: [Flank pain] Onset: 04-27-2022 Episodic Allergic reactions (2 sources) [...] Other jail (current) drug therapy; 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: [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] Onset: 04-29-2022 Episodic Other [...] Other complications of (1 source) Supervision of elderly multigravida, second trimester; 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: [Supervision of elderly multigravida, second trimester] Onset: 03-14-2024 Episodic Other complications of (1 source) Supervision [...] 02-15-2024 Chronic Other and delivery including normal (4 sources) Second trimester ; 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: [Encounter for [...] of ] 02-21-2024 Episodic Residual codes; unclassified (2 sources) Gestation period, 24 weeks; 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: [24 weeks gestation of ] 03-06-2024 Episodic Residual codes; unclassified (1 source) 21 weeks gestation of ; 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: [21 weeks gestation of ] Onset: 02-15-2024 Episodic Substance-related disorders (1 source) Nicotine dependence, cigarettes, uncomplicated; 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: [NICOTINE DEPEND CIGARETTES UNCOMP] Onset: 04-29-2022 Chronic Unclassified (1 source) PERSONAL HISTORY OF COVID-19; 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: [PERSONAL HISTORY OF COVID-19] Onset: 04-29-2022 Unclassified (1 source) transport Onset: 02-08-2024 Urinary tract infections (3 sources) Acute cystitis; 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: [Acute cystitis with hematuria] Onset: 02-08-2024 03-06-2024 Episodic Past or Other Problems Problem Classification Problem Date Documented Da te Episodic/Chronic Unclassified (1 source) Suspected COVID-19 virus infection Z20.822 Results Test Name Value Interpretation Reference Range Facility [facility] UA (CLEAN/CATCH) 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 RED YELLOW [facility] GLU[facility]SE [facility] UA COLOR INTERFERENCE Abnormal NEGAT CARMELITA mg/dL [facility] Interpretation and review of laboratory results Abnormal [facility] Ketones Ql (U) COLOR INTERFERENCE Abnormal NEGATIV E mg/dL [facility] Leukocyte esterase Test strip Ql (U) COLOR INTERFERENCE Abnormal NEGATIVE [facility] care NITRITE URINE COLOR INTERFERENCE Abnormal NEGATIVE [facility] PH URINE COLOR INTERFERENCE Abnormal 5.0 - 9.0 [facility] PROTEIN URINE COLOR INTERFERENCE Abnormal NEG/TRAC E mg/dL [facility] SPECIFIC GRAVITY URINE 1.020 1.005 - 1.025 [facility] URINE MICROSCOPIC INDICATED YES [facility] UROBILINOGEN URINE COLOR INTERFERENCE Abnormal 0.2 - 1.0 EU/dL [facility] Urinalysis macro (dipstick) panel (U)on 03-06-2024 Bilirubin, UA Positive Negative - 4(70) +++ mg/dL [facility] Blood, UA Positive Negative - 50 Slick/mcL [facility] Comment on above: large Clarity, UA Clear [facility] Color, UA Dark Sanaz [facility] Glucose, UA Negative Negative - 2000(110) ++++ mg/dL [facility] Interpretation and review of laboratory results Abnormal [facility] Ketones, UA Negative Negative - 160(16) ++++ mg/dL [facility] Leukocytes, UA Trace Negative - 500+++ Mira/mcL [facility] Nitrite, UA Positive Negative - Positive [facility] pH, UA 6 5 - 9 [facility] Protein, UA Positive Negative - 1999(20) ++++ mg/dL [facility] Comment on above: 100 Spec Grav, UA 1.02 1 - 1.03 [facility] Urobilinogen, UA 1.0 0.2 - 12 mg/dL [facility] Urinal[facility] macro (dipstick) panel (U)on 02-21-2024 Bilirubin, UA Negative Negative - 4(70) +++ mg/dL [facility] Blood, UA Negative Negative - 50 Slick/mcL [facility] Clarity, UA Clear [facility] re Color, UA Yellow [facility] Glucose, UA Negative Negative - 1999(110) ++++ mg/dL [facility] Interpretation and review of laboratory results Abnormal [facility] Ketones, UA Negative Negative - 160(16) ++++ mg/dL [facility] Leukocytes, UA Trace Negative - 500+++ Mira/mcL [facility] Nitrite, UA Negative Negative - Positive [facility] pH, UA 5.5 5 - 9 [facility] Protein, UA Negative Negative - 1999(20) ++++ mg/dL [facility] Spec Grav, UA 1.01 1 - 1.03 [facility] Urobilinogen, UA 0.2 0.2 - 12 mg/dL [facility] CBC AND AUTO DIFFon 02-09-20 ABSOLUTE BASOPHIL 0.0 X10E9/L Normal 0.0-0.2 [facility] Comment on above: Performed By: #### 3 2132-05, CMP, CBCA #### [facility] ([id number]) [address], [address] [place] [address] ABSOLUTE NEUTROPHIL 5.4 X10E9/L Normal 1.5-6.6 [facility] Comment on above: Performed By: #### 3 2132-05, CMP, CBCA #### [facility] ([id number]) [address], [address] [place] [address] Basophils/100 WBC (Bld) 0.2 % Normal [facility] Comment on above: Performed By: #### 3 2132-1, CMP, CBCA #### [facility] ([id number]) [address], [address] [place] [address] Eosinophils (Bld) [#/Vol] 0.1 10*3/uL Normal 0.0-0.4 [facility] Comment on above: Performed By: #### 3 2132-1, CMP, CBCA #### [facility] ([id number]) [address], [facility] [address] [place] [address] Eosinophils/100 WBC (Bld) 0.9 % Normal [facility] Comment on above: Performed By: #### 3 2132-1, CMP, CBCA #### [facility] ([id number]) [address], [facility] [address] [place] [address] Erythrocyte distribution width (RBC) [Ratio] 14.3 % Normal 11.5-15.0 [facility] Comment on above: Performed By: #### 3 2132-1, CMP, CBCA #### [facility] ([id number]) [address], [address] [place] [address] Hematocrit (Bld) [Volume fraction] 30.3 % Low 35-47 [facility] Comment on above: Performed By: #### 3 2132-1, CMP, CBCA #### [facility] ([id number]) [address], [facility] [address] [place] [address] Hemoglobin (Bld) [Mass/Vol] 10.3 g/dL Low 11.7-15.5 [facility] Comment on above: Performed By: #### 3 2132-1, CMP, CBCA #### [facility] ([id number]) [address], [address] [place] [address] Lymphocytes (Bld) [#/Vol] 1.7 10*3/uL Normal 1.0-3.5 [facility] Comment on above: Performed By: #### 3 2132-1, CMP, CBCA #### [facility] ([id number]) [address], [address] [place] [address] Lymphocytes/100 WBC (Bld) 22.0 % Normal [facility] Comment on above: Performed By: #### 3 2132-1, CMP, CBCA #### [facility] ([id number]) [address], [address] [place] [address] MCH (RBC) [Entitic mass] 31.3 pg Normal 27-34 [facility] Comment on above: Performed By: #### 3 2132-1, CMP, CBCA #### [facility] ([id number]) [address], [address] [place] [address] MCHC (RBC) [Mass/Vol] 34.0 g/dL Normal 32-36 [facility] Comment on above: Performed By: #### 3 2132-1, CMP, CBCA #### [facility] ([id number]) [address], [address] [place] [address] MCV (RBC) [Entitic vol] 92 fL Normal 80-100 [facility] Comment on above: Performed By: #### 3 1, CMP, CBCA #### [facility] ([id number]) [address], [address] [place] [address] Monocytes (Bld) [#/Vol] 0.5 10*3/uL Normal 0-0.9 [facility] Comment on above: Performed By: #### 3 2132-1, CMP, CBCA #### [facility] ([id number]) [address], [address] [place] [address] Monocytes/100 WBC (Bld) 7.0 % Normal [facility] Comment on above: Performed By: #### 3 2132-1, CMP, CBCA #### [facility] ([id number]) [address], [address] [place] [address] Neutrophils/100 WBC (Bld) 69.9 % Normal [facility] Comment on above: Performed By: #### 3 2132-1, CMP, CBCA #### [facility] ([id number]) [address], [facility] [address] [place] [address] Platelet mean volume (Bld) [Entitic vol] 8.8 fL Normal 7-12 [facility] Comment on above: Performed By: #### 3 2132-1, CMP, CBCA #### [facility] ([id number]) [address], [facility] [address] [place] [address] Platelets (Bld) [#/Vol] 259 10*3/uL Normal 150-450 [facility] Comment on above: Performed By: #### 3 2132-1, CMP, CBCA #### [facility] ([id number]) [address], [address] [place] [address] RBC COUNT 3.29 X10E12/L Low 3.80-5.20 [facility] Comment on above: Performed By: #### 3 2132-1, CMP, CBCA #### [facility] ([id number]) [address], [address] [place] [address] WBC (Bld) [#/Vol] 7.7 10*3/uL Normal 4.0-11.0 [facility] Comment on above: Performed By: #### 3 2132-1, CMP, CBCA #### [facility] ([id number]) [address], [address] [place] [address] COMPREHENSIVE METABOLIC PANE Paco 02-09-2024 Albumin [Mass/Vol] 2.9 g/dL Low 3.2-5.3 [facility] Comment on above: Performed By: #### 3 2132-1, CMP, CBCA #### [facility] ([id number]) [address], [address] [place], [place] [address] ALP [Catalytic activity/Vol] 118 U/L Normal 39-130 [facility] Comment on above: Performed By: #### 3 2132-1, CMP, CBCA #### [facility] ([id number]) [address], [address] [place], [place] [address] ALT [Catalytic activity/Vol] 6 U/L Normal 0-31 [facility] Comment on above: Performed By: #### 3 2132-1, CMP, CBCA #### [facility] ([id number]) [address], [address] [place], [place] [address] Anion gap [Moles/Vol] 10 mmol/L Normal 5-15 [facility] Comment on above: Performed By: #### 3 2132-1, CMP, CBCA #### [facility] ([id number]) [address], [address] [place], [place] [address] AST [Catalytic activity/Vol] 9 U/L Normal 0-41 [facility] Comment on above: Performed By: #### 3 2132-1, CMP, CBCA #### [facility] ([id number]) [address], [address] [place], [place] [address] Bilirubin [Mass/Vol] 0.4 mg/dL Normal 0.3-1.2 [facility] Comment on above: Performed By: #### 3 2132-1, CMP, CBCA #### [facility] ([id number]) [address], [address] [place], [place] [address] Calcium [Mass/Vol] 8.5 mg/dL Normal 8.5-10.5 [facility] Comment on above: Performed By: #### 3 2132-1, CMP, CBCA #### [facility] ([id number]) [address], [address] [place] [address] Chloride [Moles/Vol] 105 mmol/L Normal 98-109 [facility] Comment on above: Performed By: #### 3 2132-1, CMP, CBCA #### [facility] ([id number]) [address] [address] [place] [address] CO2 [Moles/Vol] 22 mmol/L Normal 22-32 [facility] Comment on above: Performed By: #### 3 2132-1, CMP, CBCA #### [facility] ([id number]) [address] [address] Creatinine [Mass/Vol] 0.45 mg/dL Normal 0.40-1.00 [facility] Comment on above: Result Comment: METH OD TRACEABLE TO IDMS STANDARD Performed By: #### 3 2132-1, CMP, CBCA #### [facility] ([id number]) [address] [address] eGFR (CKD-EPI) NON-RACE DEPENDENT >90 Normal >59 [facility] Comment on above: Result Comment: Reported eGFR is based on the CKD-EPI 2020 equation that does not use a race coefficient. Performed By: #### 3 1, CMP, CBCA #### [facility] ([id number]) [address] [address] Glucose [Mass/Vol] 84 mg/dL Normal 65-99 [facility] Comment on above: Performed By: #### 3 2132-1, CMP, CBCA #### [facility] ([id number]) [address] [address] Potassium [Moles/Vol] 3.7 mmol/L Normal 3.5-5.0 [facility] Comment on above: Performed By: #### 3 2132-1, CMP, CBCA #### [facility] ([id number]) [address] [place] [address] Protein [Mass/Vol] 6.0 g/dL Normal 6.0-8.0 [facility] Comment on above: Performed By: #### 3 2132-1, CMP, CBCA #### [facility] ([id number]) [address], [address] [place] [address] Sodium [Moles/Vol] 137 mmol/L Normal 134-146 [facility] Comment on above: Performed By: #### 3 2132-1, CMP, CBCA #### [facility] ([id number]) [address], [address] [place] [address] Urea nitrogen [Mass/Vol] 5 mg/dL Normal 5-23 [facility] Comment on above: Performed By: #### 3 2132-1, CMP, CBCA #### [facility] ([id number]) [address], [address] [place] [address] MAGNESIUMon 02-09-2024 Magnesium [Mass/Vol] 1.6 mg/dL Low 1.8-2.6 [facility] Comment on above: Performed By: #### 3 2132-1, CMP, CBCA #### [facility] ([id number]) [address], [address] [place] [address] PHOSPHORUSon 02-09-2024 Phosphate [Mass/Vol] 4.5 mg/dL Normal 2.4-4.9 [facility] Comment on above: Performed By: #### 3 2132-1, CMP, CBCA #### [facility] ([id number]) [address], [address] [place] [address] US RETROPERITONEAL LIMITEDon 02-09-2024 US RETROPERITONEAL LIMITED [...] Andrade MD on 02/09/2024 10:[address] [facility] BLOOD CULTUREon 02-08-2024 Bacteria identified Aer cx Nom (Bld) SPECIMEN NOTES SUBOPTIMAL VOLUME OF BLOOD COLLECTED, RESULTS MAY BE AFFECTED. CULTURE RESULTS NO GROWTH [address] [facility] Comment on above: Performed By: #### 3 2132-1, CMP, CBCA #### [facility] ([id number]) [address], [address] [place] [address] Bacteria identified Aer cx Nom (Bld) SPECIMEN NOTES SUBOPTIMAL VOLUME OF BLOOD COLLECTED, RESULTS MAY BE AFFECTED. CULTURE RESULTS NO GROWTH [address] [facility] Comment on above: Performed By: #### 1 7928-3 #### [facility] ([id number]) [address], [address] [place] [address] CBC AND AUTO DIFFon 02-08-20 24 ABSOLUTE BASOPHIL 0.0 X10E9/L Normal 0.0-0.2 [facility] Comment on above: Performed By: #### 3 2132-1, CMP, CBCA #### [facility] ([id number]) [address], [address] [place] [address] ABSOLUTE NEUTROPHIL 9.5 X10E9/L High 1.5-6.6 [facility] Comment on above: Performed By: #### 3 2133-1, CMP, CBCA #### [facility] ([id number]) [address], [address] [place] [address] Basophils/100 WBC (Bld) 0.0 % Normal [facility] Comment on above: Performed By: #### 3 2132-1, CMP, CBCA #### [facility] ([id number]) [address] [address] [place] [address] Eosinophils (Bld) [#/Vol] 0.0 10*3/uL Normal 0.0-0.4 [facility] Comment on above: Performed By: #### 3 2132-1, CMP, CBCA #### [facility] ([id number]) [address] [address] [place] [address] Eosinophils/100 WBC (Bld) 0.0 % Normal [facility] Comment on above: Performed By: #### 3 2132-1, CMP, CBCA #### [facility] ([id number]) [address], [address] [place] [address] Erythrocyte distribution width (RBC) [Ratio] 14.5 % Normal 11.5-15.0 [facility] Comment on above: Performed By: #### 3 2132-1, CMP, CBCA #### [facility] ([id number]) [address] [address] [place] [address] Hematocrit (Bld) [Volume fraction] 31.3 % Low 35-47 [facility] Comment on above: Performed By: #### 3 2132-1, CMP, CBCA #### [facility] ([id number]) [address] [address] [place] [address] Hemoglobin (Bld) [Mass/Vol] 10.6 g/dL Low 11.7-15.5 [facility] Comment on above: Performed By: #### 3 2132-1, CMP, CBCA #### [facility] ([id number]) [address], [address] [place] [address] Lymphocytes (Bld) [#/Vol] 1.1 10*3/uL Normal 1.0-3.5 [facility] Comment on above: Performed By: #### 3 2132-1, CMP, CBCA #### [facility] ([id number]) [address], [facility] [address] [place] [address] Lymphocytes/100 WBC (Bld) 9.4 % Normal [facility] Comment on above: Performed By: #### 3 2132-1, CMP, CBCA #### [facility] ([id number]) [address], [facility] [address] [place] [address] MCH (RBC) [Entitic mass] 30.8 pg Normal 27-34 [facility] Comment on above: Performed By: #### 3 2132-1, CMP, CBCA #### [facility] ([id number]) [address], [address] [place] [address] MCHC (RBC) [Mass/Vol] 33.9 g/dL Normal 32-36 [facility] Comment on above: Performed By: #### 3 2132-1, CMP, CBCA #### [facility] ([id number]) [address] [place] [address] MCV (RBC) [Entitic vol] 91 fL Normal 80-100 [facility] Comment on above: Performed By: #### 3 2132-1, CMP, CBCA #### [facility] ([id number]) [address], [facility] [address] [place] [address] Monocytes (Bld) [#/Vol] 0.9 10*3/uL Normal 0-0.9 [facility] Comment on above: Performed By: #### 3 2132-1, CMP, CBCA #### [facility] ([id number]) [address], [address] [place] [address] Monocytes/100 WBC (Bld) 8.2 % Normal [facility] Comment on above: Performed By: #### 3 2132-1, CMP, CBCA #### [facility] ([id number]) [address], [facility] [address] [place] [address] Neutrophils/100 WBC (Bld) 82.4 % Normal [facility] Comment on above: Performed By: #### 3 2132-1, CMP, CBCA #### [facility] ([id number]) [address], [facility] [address] [place] [address] Platelet mean volume (Bld) [Entitic vol] 8.5 fL Normal 7-12 [facility] Comment on above: Performed By: #### 3 2132-1, CMP, CBCA #### [facility] ([id number]) [address], [facility] [address] [place] [address] Platelets (Bld) [#/Vol] 246 10*3/uL Normal 150-450 [facility] Comment on above: Performed By: #### 3 2132-1, CMP, CBCA #### [facility] ([id number]) [address], [facility] [address] [place] [address] RBC COUNT 3.44 X10E12/L Low 3.80-5.20 [facility] Comment on above: Performed By: #### 3 2132-1, CMP, CBCA #### [facility] ([id number]) [address], [facility] [address] [place] [address] WBC (Bld) [#/Vol] 11.5 10*3/uL High 4.0-11.0 [facility] Comment on above: Performed By: #### 3 2132-1, CMP, CBCA #### [facility] ([id number]) [address], [address] [place] [address] COMPREHENSIVE METABOLIC PANE Paco 02-08-2024 Albumin [Mass/Vol] 3.1 g/dL Low 3.2-5.3 [facility] Comment on above: Performed By: #### 3 2132-1, CMP, CBCA #### [facility] ([id number]) [address], [address] [place], [place] [address] ALP [Catalytic activity/Vol] 100 U/L Normal 39-130 [facility] Comment on above: Performed By: #### 3 2132-1, CMP, CBCA #### [facility] ([id number]) [address], [address] [place] [address] ALT [Catalytic activity/Vol] 7 U/L Normal 0-31 [facility] Comment on above: Performed By: #### 3 2132-1, CMP, CBCA #### [facility] ([id number]) [address], [address] [place], [place] [address] Anion gap [Moles/Vol] 12 mmol/L Normal 5-15 [facility] Comment on above: Performed By: #### 3 2132-1, CMP, CBCA #### [facility] ([id number]) [address], [address] [place], [place] [address] AST [Catalytic activity/Vol] 8 U/L Normal 0-41 [facility] Comment on above: Performed By: #### 3 2132-1, CMP, CBCA #### [facility] ([id number]) [address], [address] [place], [place] [address] Bilirubin [Mass/Vol] 0.5 mg/dL Normal 0.3-1.2 [facility] Comment on above: Performed By: #### 3 2132-1, CMP, CBCA #### [facility] ([id number]) [address], [address] [place], [place] [address] Calcium [Mass/Vol] 8.3 mg/dL Low 8.5-10.5 [facility] Comment on above: Performed By: #### 3 2132-1, CMP, CBCA #### [facility] ([id number]) [address], [address] [place] [address] Chloride [Moles/Vol] 104 mmol/L Normal 98-109 [facility] Comment on above: Performed By: #### 3 2132-1, CMP, CBCA #### [facility] ([id number]) [address], [address] [place] [address] CO2 [Moles/Vol] 20 mmol/L Low 22-32 [facility] Comment on above: Performed By: #### 3 2132-1, IZAIAH, CBCA #### [facility] ([id number]) [address], [address] [place] [address] Creatinine [Mass/Vol] 0.53 mg/dL Normal 0.40-1.00 [facility] Comment on above: Result Comment: METH OD TRACEABLE TO IDMS STANDARD Performed By: #### 3 2132-, IZAIAH, CBCA #### [facility] ([id number]) [address], [address] [place] [address] eGFR (CKD-EPI) NON-RACE DEPENDENT >90 Normal >59 [facility] Comment on above: Result Comment: Reported eGFR is based on the CKD-EPI 2020 equation that does not use a race coefficient. Performed By: #### 3 2132-1, IZAIAH, CBCA #### [facility] ([id number]) [address], [address] [place] [address] Glucose [Mass/Vol] 115 mg/dL High 65-99 [facility] Comment on above: Performed By: #### 3 2132-1, IZAIAH, CBCA #### [facility] ([id number]) [address], [address] [place] [address] Potassium [Moles/Vol] 3.6 mmol/L Normal 3.5-5.0 [facility] Comment on above: Performed By: #### 3 2132-1, CMP, CBCA #### [facility] ([id number]) [address], [address] [place] [address] Protein [Mass/Vol] 6.1 g/dL Normal 6.0-8.0 [facility] Comment on above: Performed By: #### 3 2132-1, CMP, CBCA #### [facility] ([id number]) [address], [address] [place] [address] Sodium [Moles/Vol] 136 mmol/L Normal 134-146 [facility] Comment on above: Performed By: #### 3 2132-1, CMP, CBCA #### [facility] ([id number]) [address], [address] [place] [address] Urea nitrogen [Mass/Vol] 3 mg/dL Low 5-23 [facility] Comment on above: Performed By: #### 3 2132-1, CMP, CBCA #### [facility] ([id number]) [address], [address] [place] [address] DRUG SCREEN, URINEon 024 AMPHETAMINE/METHAMP Negative Normal NEG [facility] Comment on above: Result Comment: AMPH /METH screening cut off = 1000 ng/mL Performed By: #### D GUILLEN #### [facility] ([id number]) [address], [address] [place] [address] BARBITURATES Negative Normal NEG [facility] Comment on above: Result Comment: Megan iturates screening cut off value = 200 ng/mL Performed By: #### D GUILLEN #### [facility] ([id number]) [address], [address] [place] [address] BENZODIAZEPINES Negative Normal NEG [facility] Comment on above: Result Comment: Giorgio odiazepines screening cut off value = 200 ng/mL Performed By: #### D GUILLEN #### [facility] ([id number]) [address], [address] [place] [address] CANNABINOIDS Negative Normal NEG [facility] Comment on above: Result Comment: Elsie abinoids/THC screening cut off value = 50 ng/mL Performed By: #### D GUILLEN #### [facility] ([id number]) [address], [address] [place] [address] COCAINE METABOLITE Negative Normal NEG [facility] Comment on above: Result Comment: Coca ine screening cut off value = 300 ng/mL Performed By: #### D GUILLEN #### [facility] ([id number]) [address], [address] [place] [address] ECSTASY Negative Normal [facility] Comment on above: Result Comment: Ecst asy screening cut off value = 500 ng/mL This report is intended for use in clinical monitoring or management of patients. Performed By: #### D GUILLEN #### [facility] ([id number]) [address], [address] [place] [address] METHADONE Negative Normal [facility] Comment on above: Result Comment: Meth adone screening cut off value = 300 ng/mL. Performed By: #### D GUILLEN #### [facility] ([id number]) [address], [address] [place] [address] OPIATES Negative Normal NEG [facility] Comment on above: Result Comment: Opia joey screening cut off value = 300 ng/mL NOTE: This test is used for the detection of codeine, hydrocodone (>1000 ng/mL), morphine and hydromorphone (>900 ng/mL) in urine. Performed By: #### D GUILLEN #### [facility] ([id number]) [address], [address] [place] [address] OXYCODONE Negative Normal NEG [facility] Comment on above: Result Comment: Oxyc odone screening cut off value = 300 ng/mL NOTE: This test is used for the detection of oxycodone and oxymorphone in urine. Performed By: #### D GUILLEN #### [facility] ([id number]) [address], [address] [address] PHENCYCLIDINE Negative Normal NEG [facility] Comment on above: Result Comment: Phen cyclidine screening cut off value = 25 ng/mL Performed By: #### D GUILLEN #### [facility] ([id number]) [address], [address] [address] Glucose Glucometer (BldC) [M ass/Vol]on 02-08-2024 Glucose [Mass/Vol] 107 mg/dL High 65-99 [facility] Lactate (P melvin) [Moles/Vol]o n 02-08-2024 LACTATE W/REFLEX 1.0 mmol/L Normal 0.4-2.0 [facility] Comment on above: Result Comment: Result did not trigger repeat Lactate, re-order if needed. Performed By: #### 7 5241-0, 59689-4 #### [facility] ([id number]) [address], [address] [address] LACTATE W/REFLEX 0.8 mmol/L Normal 0.4-2.0 [facility] Comment on above: Result Comment: Result did not trigger repeat Lactate, re-order if needed. Performed By: #### 3 2133-1, CMP, CBCA #### [facility] ([id number]) [address], [address] [place] [address] Procalcitonin IA [Mass/Vol]o n 02-08-2024 PROCALCITONIN 0.74 ng/mL High <0.05 [facility] Comment on above: Result Comment: NOTE <0.50 ng/mL - Low risk of severe sepsis and/or septic shock. <2.00 ng/mL - Recommend retesting within 6-24 hours. >2.00 ng/mL - High risk of sepsis and/or septic shock. Performed By: #### 7 5241-0, 41867-6 #### [facility] ([id number]) [address] [place] [address] URINALYSISon 02-08-2024 Bilirubin Ql (U) Negative Normal NEG [facility] Comment on above: Performed By: #### U A #### [facility] ([id number]) [address], [address] [place] [address] BLOOD/HGB Small Abnormal NEG [facility] Comment on above: Performed By: #### U A #### [facility] ([id number]) [address], [address] [place] [address] Color (U) YELLOW Normal YELLOW [facility] Comment on above: Performed By: #### U A #### [facility] ([id number]) [address], [address] [place] [address] Glucose Ql (U) Negative Normal NEG [facility] Comment on above: Performed By: #### U A #### [facility] ([id number]) [address], [address] [place] [address] Ketones Ql (U) 20 mg/dL Abnormal NEG [facility] Comment on above: Performed By: #### U A #### [facility] ([id number]) [address], [address] [place] [address] Leukocyte esterase Test strip Ql (U) Negative Normal NEG [facility] Comment on above: Performed By: #### U A #### [facility] ([id number]) [address] [place] [address] MUCOUS PRESENT Abnormal NONE [facility] Comment on above: Performed By: #### U A #### [facility] ([id number]) [address], [address] [place] [address] Nitrite Ql (U) Negative Normal NEG [facility] Comment on above: Performed By: #### U A #### [facility] ([id number]) [address] [address] [place] [address] pH (U) 8.0 [pH] Normal 5.0-8.5 [facility] Comment on above: Performed By: #### U A #### [facility] ([id number]) [address] [facility] [address] [place] [address] Protein Ql (U) Trace Abnormal NEG [facility] Comment on above: Performed By: #### U A #### [facility] ([id number]) [address] [facility] [address] [place] [address] R.B.CELLS 16 /hpf High 0-5 [facility] Comment on above: Performed By: #### U A #### [facility] ([id number]) [address] [address] Specific gravity (U) [Rel density] 1.012 Normal 1.003-1.035 [facility] Comment on above: Performed By: #### U A #### [facility] ([id number]) [address] [facility] [address] [place] [address] SQUAMOUS EPITHELIUM 1 /hpf Normal 0-5 [facility] Comment on above: Performed By: #### U A #### [facility] ([id number]) [address] [address] [place] [address] TRANSITIONAL EPITH <1 High 0 [facility] Comment on above: Performed By: #### U A #### [facility] ([id number]) [address] [place] [address] [address] [place] [address] TURBIDITY CLEAR Normal CLEAR [facility] Comment on above: Performed By: #### U A #### [facility] ([id number]) [address] [facility] [address] [place] [address] Urobilinogen Qn (U) 2 {Blanca'U}/dL High <1.1 [facility] Comment on above: Performed By: #### U A #### [facility] ([id number]) [address] [place] [address] W.B.CELLS 2 /hpf Normal 0-5 [facility] Comment on above: Performed By: #### U A #### [facility] ([id number]) [address] [place] [address] URINE CULTUREon 02-08-2024 Bacteria identified Cx Nom (U) CULTURE RESULTS NO GROWTH AT <1000 CFU/mL Normal [facility] Comment on above: Performed By: #### 3 2132-05, CMP, CBCA #### [facility] ([id number]) [address] [place] [address] XR CHEST 1 VWon 02-08-2024 XR CHEST [...] Rubi MD on 02/08/2024 9:[address] [facility] No Panel InformationOrdered By: Sanaz Lockwood on 08-18-2023 Quick Strep (POC) [facility] COVID + FLU Quick Testingon 04-27-2023 SARS-CoV-2 (COVID-19) RNA J LUIS+probe Ql (Unsp spec) Negative [employer] Other COVID + FLU Quick Testing Negative [employer] Other Quick Strepon 04-27-2023 S. pyogenes Org specific cx Ql (Throat) Negative [employer] Other Quick Strep [facility] [employer] Other COVID/FLU/RSV RT-PCRon 05-10 SARS-CoV-2 (COVID-19) RNA J LUIS+probe Ql (Unsp spec) Negative [facility] [employer] Other COVID/FLU/RSV RT-PCR Positive [facility] [employer] Other COVID/FLU/RSV RT-PCR Negative [facility] [employer] Other CBC AUTO DIFFon 04-27-2022 BASO # 0.0 103/ul Normal 0.0-0.1 [facility] Comment on above: Performed By: #### C BC #### [facility] [address] [place] [address] Dr. Dee Humphrey Basophils/100 WBC (Bld) 0.2 % Normal 0.2-2.0 [facility] Comment on above: Performed By: #### C BC #### [facility] [address] [place] [address] Dr. Dee uHmphrey EO # 0.1 103/ul Normal 0.0-0.7 [facility] Comment on above: Performed By: #### C BC #### [facility] [address] [place] [address] Dr. Dee Humphrey Eosinophils/100 WBC (Bld) 0.6 % Critically low 0.9-7.0 [facility] Comment on above: Performed By: #### C BC #### [facility] [address] [place] [address] Dr. Dee Humphrey Erythrocyte distribution width (RBC) [Ratio] 14.1 % Normal 11.0-15.0 [facility] Comment on above: Performed By: #### C BC #### [facility] [address] [place] [address] Dr. Dee Humphrey Hematocrit (Bld) [Volume fraction] 37.1 % Normal 36.0-48.0 [facility] Comment on above: Performed By: #### C BC #### [facility] [address] [place] [address] Dr. Dee Humphrey Hemoglobin (Bld) [Mass/Vol] 12.4 g/dL Normal 12.0-16.0 [facility] Comment on above: Performed By: #### C BC #### [facility] [address] [place] [address] Dr. Dee Humphrey IG # 0.06 10e3/ul Critically high 0.00-0.03 [facility] Comment on above: Performed By: #### C BC #### [facility] [address] [place] [address] Dr. Dee Humphrey IG % 0.5 % Normal 0.0-0.5 [facility] Comment on above: Performed By: #### C BC #### [facility] [address] [place] [address] Dr. Dee Humphrey LYMPH # 3.7 103/ul Normal 1.2-3.8 [facility] Comment on above: Performed By: #### C BC #### [facility] [address] [place] [address] Dr. Dee Humphrey Lymphocytes/100 WBC (Bld) 28.7 % Normal 20.5-60.0 [facility] Comment on above: Performed By: #### C BC #### [facility] [address] [place] [address] Dr. Dee Humphrey MANUAL DIFF REQ NO Normal [facility] Comment on above: Performed By: #### C BC #### [facility] [address] [place] [address] Dr. Dee Humphrey MCH (RBC) [Entitic mass] 30.2 pg Normal 26.7-34.0 [facility] Comment on above: Performed By: #### C BC #### [facility] [address] [place] [address] Dr. Dee Humphrey MCHC (RBC) [Mass/Vol] 33.4 g/dL Normal 29.9-35.2 [facility] Comment on above: Performed By: #### C BC #### [facility] [address] [place] [address] Dr. Dee Humphrey MCV (RBC) [Entitic vol] 90.5 fL Normal 81.0-99.0 [facility] Comment on above: Performed By: #### C BC #### [facility] [address] [place] [address] Dr. Dee Humphrey MONO # 0.7 103/ul Normal 0.3-0.8 [facility] Comment on above: Performed By: #### C BC #### [facility] [address] [place] [address] Dr. Dee Humphrey Monocytes/100 WBC (Bld) 5.0 % Normal 1.7-12.0 [facility] Comment on above: Performed By: #### C BC #### [facility] [address] [place] [address] Dr. Dee Humphrey NEUT # 8.5 103/ul Critically high 1.4-6.5 [facility] Comment on above: Performed By: #### C BC #### [facility] [address] [place] [address] Dr. Dee Humphrey Neutrophils/100 WBC (Bld) 65.0 % Normal 43.0-75.0 [facility] Comment on above: Performed By: #### C BC #### [facility] [address] [place] [address] Dr. Dee Humphrey Platelet mean volume (Bld) [Entitic vol] 9.6 fL Normal 9.5-13.5 [facility] Comment on above: Performed By: #### C BC #### [facility] [address] [place] [address] Dr. Dee Humphrey PLT 317 103/ul Normal 150-450 [facility] Comment on above: Performed By: #### C BC #### [facility] [address] [place] [address] Dr. Dee Humphrey RBC 4.10 106/ul Critically low 4.20-5.40 [facility] Comment on above: Performed By: #### C BC #### [facility] [address] [place] [address] Dr. Dee Humphrey WBC 13.1 103/ul Critically high 4.0-11.0 [facility] Comment on above: Performed By: #### C BC #### [facility] [address] [address] ABD/PELVIS WO CONon [...] ROCIO CHAU Date: 2022-04-27 20:24 Normal [facility] URINE PROFILEon 2 Bilirubin Ql (U) Negative Normal NEGATIVE [facility] Comment on above: Performed By: #### P REGU, ERUR #### [facility] [address] [address] [address] Dee Humphrey Clarity (U) CLEAR Normal CLEAR [facility] Comment on above: Performed By: #### P REGU, ERUR #### [facility] [address] [place], [place] [address] Dr. Dee Humphrey Color (U) YELLOW Normal YELLOW [facility] Comment on above: Performed By: #### P REGU, ERUR #### [facility] [address] [address] [address] Dee STANFORD A micrscopic examination will be performed if indicated. Normal [facility] Comment on above: Performed By: #### P REGU, ERUR #### [facility] [address] [address] [address] Dee Humphrey Glucose Ql (U) Negative Normal NEGATIVE [facility] Comment on above: Performed By: #### P REGU, ERUR #### [facility] [address] [address] [address] Dee Humphrey Hemoglobin Ql (U) Negative Normal NEGATIVE [facility] Comment on above: Performed By: #### P REGU, ERUR #### [facility] [address] [place] [address] Dr. Dee Humphrey Ketones Ql (U) Negative Normal NEGATIVE [facility] Comment on above: Performed By: #### P REGU, ERUR #### [facility] [address] [place] [address] Dr. Dee Humphrey LEUKOCYTES Negative Normal NEGATIVE [facility] Comment on above: Performed By: #### P REGU, ERUR #### [facility] [address] [place] [address] Dr. Dee Humphrey Nitrite Ql (U) Negative Normal NEGATIVE [facility] Comment on above: Performed By: #### P REGU, ERUR #### [facility] [address] [address] [address] Dee Humphrey pH (U) 5.5 [pH] Normal 5-9 [facility] Comment on above: Performed By: #### P REGU, ERUR #### [facility] [address] [address] [address] Dee Humphrey SPEC GRAVITY >=1.030 Abnormal 1.005-<=1.02 5 [facility] Comment on above: Performed By: #### P REGU, ERUR #### [facility] [address] [place] [address] Dr. Dee Humphrey UA PROTEIN Negative Normal NEGATIVE/ TRACE [facility] Comment on above: Performed By: #### P REGU, ERUR #### [facility] [address] [place] [address] Dr. Dee Humphrey UR MICRO IND NOT INDICATED Normal [facility] Comment on above: Performed By: #### P REGU, ERUR #### [facility] [address] [place] [address] Dr. Dee Humphrey Urobilinogen Qn (U) 0.2 {Blanca'U}/dL Normal 0.2 - 1. 0 [facility] Comment on above: Performed By: #### P REGU, ERUR #### [facility] [address] [place] [address] Dr. Dee Humphrey LIPASEon 04-27-2022 Lipase [Catalytic activity/Vol] 94.0 U/L Normal 73.0-393.0 [facility] Comment on above: Performed By: #### L IPA, CMP #### [facility] [address] [place] [address] Dr. Dee Humphrey URon 04-27-2022 , QUAL Negative Normal NEGATIVE [facility] Comment on above: Performed By: #### P REGU, ERUR #### [facility] [address] [place] [address] Dr. Dee Humhprey PROF 14(COMP METB)on 022 Albumin [Mass/Vol] 3.9 g/dL Normal 3.4-5.0 [facility] Comment on above: Performed By: #### L IPA, CMP #### [facility] [address] [place] [address] Dr. Dee Humphrey Albumin/Globulin [Mass ratio] 1.0 {ratio} Normal [facility] Comment on above: Performed By: #### L IPA, CMP #### [facility] [address] [place] [address] Dr. Dee Humphrey ALP [Catalytic activity/Vol] 87 U/L Normal 46-116 [facility] Comment on above: Performed By: #### L IPA, CMP #### [facility] [address] [place] [address] Dr. Dee Humphrey ALT [Catalytic activity/Vol] 31 U/L Normal 14-59 [facility] Comment on above: Performed By: #### L IPA, CMP #### [facility] [address] [address] [address] Dee Humphrey Anion gap [Moles/Vol] 10.8 mmol/L Normal [facility] Comment on above: Performed By: #### L IPA, CMP #### [facility] [address] [address] [address] Dee Humphrey AST [Catalytic activity/Vol] 17 U/L Normal 15-37 [facility] Comment on above: Performed By: #### L IPA, CMP #### [facility] [address] [address] [address] Dee Humphrey Bilirubin [Mass/Vol] 0.1 mg/dL Critically low 0.2-1.0 [facility] Comment on above: Performed By: #### L IPA, CMP #### [facility] [address] [place] [address] Dr. Dee Humphrey Calcium [Mass/Vol] 8.9 mg/dL Normal 8.5-10.1 [facility] Comment on above: Performed By: #### L IPA, CMP #### [facility] [address] [place] [address] Dr. Dee Humphrey Chloride [Moles/Vol] 103 mmol/L Normal 98-107 [facility] Comment on above: Performed By: #### L IPA, CMP #### [facility] [address] [place] [address] Dr. Dee Humphrey CO2 [Moles/Vol] 26.9 mmol/L Normal 21.0-32.0 [facility] Comment on above: Performed By: #### L IPA, CMP #### [facility] [address] [address] [address] Dee Humphrey Creatinine [Mass/Vol] 0.80 mg/dL Normal 0.55-1.02 [facility] Comment on above: Performed By: #### L IPA, CMP #### [facility] [address] [address] [address] Dee Humphrey EGFR-AF SUDANESE >60 Normal >=60 [facility] Comment on above: Performed By: #### L IPA, CMP #### [facility] [address] [address] [address] Dee Humphrey EGFR-NON AF SUDANESE >60 Normal >=60 [facility] Comment on above: Performed By: #### L IPA, CMP #### [facility] [address] [address] [address] Dee Humphrey Globulin (S) [Mass/Vol] 3.9 g/dL Normal [facility] Comment on above: Performed By: #### L IPA, CMP #### [facility] [address] [place] [address] Dr. Dee Humphrey Glucose [Mass/Vol] 96 mg/dL Normal 74-106 [facility] Comment on above: Performed By: #### L IPA, CMP #### [facility] [address] [address] [address] Dee Humphrey Potassium [Moles/Vol] 3.7 mmol/L Normal 3.5-5.1 [facility] Comment on above: Performed By: #### L IPA, CMP #### [facility] [address] [place] [address] Dr. Dee Humphrey Protein [Mass/Vol] 7.8 g/dL Normal 6.4-8.2 [facility] Comment on above: Performed By: #### L IPA, CMP #### [facility] [address] [address] [address] Dee Humphrey Sodium [Moles/Vol] 137 mmol/L Normal 136-145 [facility] Comment on above: Performed By: #### L IPA, CMP #### [facility] [address] [place] [address] Dr. Dee Humphrey Urea nitrogen [Mass/Vol] 13.0 mg/dL Normal 7.0-18.0 [facility] Comment on above: Performed By: #### L IPA, CMP #### [facility] [address] [place] [address] Dr. Dee Humphrey Urea nitrogen/Creatinine [Mass ratio] 16.2 mg/mg Normal [facility] Comment on above: Performed By: #### L IPA, CMP #### [facility] [address] [place] [address] Dr. Dee Humphrey CBC AUTO DIFFon 03-07-2022 BASO # 0.0 103/ul Normal 0.0-0.1 [facility] [facility] Comment on above: Performed By: #### C BC #### [facility] [address] [place] [address] Dr. Dee Humphrey Basophils/100 WBC (Bld) 0.3 % Normal 0.2-2.0 [facility] Comment on above: Performed By: #### C BC #### [facility] [address] [place] [address] Dr. Dee Humphrey EO # 0.1 103/ul Normal 0.0-0.7 [facility] Comment on above: Performed By: #### C BC #### [facility] [address] [place] [address] Dr. Dee Humphrey Eosinophils/100 WBC (Bld) 0.7 % Critically low 0.9-7.0 [facility] Comment on above: Performed By: #### C BC #### [facility] [address] [place] [address] Dr. Dee Humphrey Erythrocyte distribution width (RBC) [Ratio] 13.0 % Normal 11.0-15.0 [facility] Comment on above: Performed By: #### C BC #### [facility] [address] [place] [address] Dr. Dee Humphrey Hematocrit (Bld) [Volume fraction] 39.2 % Normal 36.0-48.0 [facility] Comment on above: Performed By: #### C BC #### [facility] [address] [place] [address] Dr. Dee Humphrey Hemoglobin (Bld) [Mass/Vol] 13.2 g/dL Normal 12.0-16.0 [facility] Comment on above: Performed By: #### C BC #### [facility] [address] [place] [address] Dr. Dee Humphrey IG # 0.05 10e3/ul Critically high 0.00-0.03 [facility] Comment on above: Performed By: #### C BC #### [facility] [address] [place] [address] Dr. Dee Humphrey IG % 0.5 % Normal 0.0-0.5 [facility] Comment on above: Performed By: #### C BC #### [facility] [address] [place] [address] Dr. Dee Humphrey LYMPH # 4.2 103/ul Critically high 1.2-3.8 [facility] Comment on above: Performed By: #### C BC #### [facility] [address] [place] [address] Dr. Dee Humphrey Lymphocytes/100 WBC (Bld) 43.1 % Normal 20.5-60.0 [facility] Comment on above: Performed By: #### C BC #### [facility] [address] [place] [address] Dr. Dee Humphrey MANUAL DIFF REQ NO Normal [facility] Comment on above: Performed By: #### C BC #### [facility] [address] [place] [address] Dr. Dee Humphrey MCH (RBC) [Entitic mass] 30.5 pg Normal 26.7-34.0 [facility] Comment on above: Performed By: #### C BC #### [facility] [address] [place] [address] Dr. Dee Humphrey MCHC (RBC) [Mass/Vol] 33.7 g/dL Normal 29.9-35.2 [facility] Comment on above: Performed By: #### C BC #### [facility] [address] [place] [address] Dr. Dee Humphrey MCV (RBC) [Entitic vol] 90.5 fL Normal 81.0-99.0 [facility] Comment on above: Performed By: #### C BC #### [facility] [address] [place] [address] Dr. Dee Humphrey MONO # 0.4 103/ul Normal 0.3-0.8 [facility] Comment on above: Performed By: #### C BC #### [facility] [address] [place] [address] Dr. Dee Humphrey Monocytes/100 WBC (Bld) 4.4 % Normal 1.7-12.0 [facility] Comment on above: Performed By: #### C BC #### [facility] [address] [place] [address] Dr. Dee Humphrey NEUT # 4.9 103/ul Normal 1.4-6.5 [facility] Comment on above: Performed By: #### C BC #### [facility] [address] [place] [address] Dr. Dee Humphrey Neutrophils/100 WBC (Bld) 51.0 % Normal 43.0-75.0 [facility] Comment on above: Performed By: #### C BC #### [facility] [address] [place] [address] Dr. Dee Humphrey Platelet mean volume (Bld) [Entitic vol] 9.6 fL Normal 9.5-13.5 [facility] Comment on above: Performed By: #### C BC #### [facility] [address] [place] [address] Dr. Dee Humphrey PLT 364 103/ul Normal 150-450 [facility] Comment on above: Performed By: #### C BC #### [facility] [address] [place] [address] Dr. Dee Humphrey RBC 4.33 106/ul Normal 4.20-5.40 [facility] Comment on above: Performed By: #### C BC #### [facility] [address] [place] [address] Dr. Dee Humphrey WBC 9.7 103/ul Normal 4.0-11.0 [facility] Comment on above: Performed By: #### C BC #### [facility] [address] [place] [address] Dr. Dee Humphrey LACTATE/LACTIC ACIDon 2021 Lactate [Moles/Vol] 1.1 mmol/L Normal 0.4-1.9 [facility] Comment on above: Performed By: #### P REGU, ERUR #### [facility] [address] [place] [address] Dr. Dee Humphrey LIPASEon 03-07-2022 Lipase [Catalytic activity/Vol] 79.0 U/L Normal 73.0-393.0 [facility] Comment on above: Performed By: #### C MP, LIPA #### [facility] [address] [place] [address] Dr. Dee Humphrey PROF 14(COMP METB)on 022 Albumin [Mass/Vol] 3.8 g/dL Normal 3.4-5.0 [facility] Comment on above: Performed By: #### C MP, LIPA #### [facility] [address] [place] [address] Dr. Dee Humphrey Albumin/Globulin [Mass ratio] 0.9 {ratio} Normal [facility] Comment on above: Performed By: #### C MP, LIPA #### [facility] [address] [place] [address] Dr. Dee Humphrey ALP [Catalytic activity/Vol] 80 U/L Normal 46-116 [facility] Comment on above: Performed By: #### C MP, LIPA #### [facility] [address] [place] [address] Dr. Dee Humphrey ALT [Catalytic activity/Vol] 27 U/L Normal 14-59 [facility] Comment on above: Performed By: #### C MP, LIPA #### [facility] [address] [place] [address] Dr. Dee Humphrey Anion gap [Moles/Vol] 9.5 mmol/L Normal [facility] Comment on above: Performed By: #### C MP, LIPA #### [facility] [address] [place] [address] Dr. Dee Humphrey AST [Catalytic activity/Vol] 13 U/L Critically low 15-37 [facility] Comment on above: Performed By: #### C MP, LIPA #### [facility] [address] [address] [address] Dee Humphrey Bilirubin [Mass/Vol] 0.1 mg/dL Critically low 0.2-1.0 [facility] Comment on above: Performed By: #### C MP, LIPA #### [facility] [address] [address] [address] Dee Humphrey Calcium [Mass/Vol] 9.0 mg/dL Normal 8.5-10.1 [facility] Comment on above: Performed By: #### C MP, LIPA #### [facility] [address] [place] [address] Dr. Dee Humphrey Chloride [Moles/Vol] 103 mmol/L Normal 98-107 [facility] Comment on above: Performed By: #### C MP, LIPA #### [facility] [address] [place] [address] Dr. Dee Humphrey CO2 [Moles/Vol] 27.1 mmol/L Normal 21.0-32.0 [facility] Comment on above: Performed By: #### C MP, LIPA #### [facility] [address] [place] [address] Dr. Dee Humphrey Creatinine [Mass/Vol] 0.86 mg/dL Normal 0.55-1.02 [facility] Comment on above: Performed By: #### C MP, LIPA #### [facility] [address] [place] [address] Dr. Dee Humphrey EGFR-AF SUDANESE >60 Normal >=60 [facility] Comment on above: Performed By: #### C MP, LIPA #### [facility] [address] [place] [address] Dr. Dee Humphrey EGFR-NON AF SUDANESE >60 Normal >=60 [facility] Comment on above: Performed By: #### C MP, LIPA #### [facility] [address] [place] [address] Dr. Dee Humphrey Globulin (S) [Mass/Vol] 4.1 g/dL Normal [facility] Comment on above: Performed By: #### C MP, LIPA #### [facility] [address] [address] [address] Dee Humphrey Glucose [Mass/Vol] 99 mg/dL Normal 74-106 [facility] Comment on above: Performed By: #### C MP, LIPA #### [facility] [address] [address] [address] Dee Humphrey Potassium [Moles/Vol] 3.6 mmol/L Normal 3.5-5.1 [facility] Comment on above: Performed By: #### C MP, LIPA #### [facility] [address] [address] [address] Dee Humphrey Protein [Mass/Vol] 7.9 g/dL Normal 6.4-8.2 [facility] Comment on above: Performed By: #### C MP, LIPA #### [facility] [address] [place] [address] Dr. Dee Humphrey Sodium [Moles/Vol] 136 mmol/L Normal 136-145 [facility] Comment on above: Performed By: #### C MP, LIPA #### [facility] [address] [address] [address] Dee Humphrey Urea nitrogen [Mass/Vol] 12.0 mg/dL Normal 7.0-18.0 [facility] Comment on above: Performed By: #### C MP, LIPA #### [facility] [address] [address] [address] Dee Humphrey Urea nitrogen/Creatinine [Mass ratio] 14.0 mg/mg Normal [facility] Comment on above: Performed By: #### C MP, LIPA #### [facility] [address] [address] [address] Dee Humphrey Consent for COVID Vaccineon 08-09-2020 SARS-CoV-2 (COVID-19) RNA J LUIS+probe Ql (Unsp spec) [id number]:127 Normal [facility] Consent for Treatmenton 07-30 Consent for Treatment [id number]:127 Normal [facility] Coding Summary.on 08-07-2020 Coding Summary. [...] Yana Paredes Date Saved: 08/07/2020 02:46 pm [facility] Ambulatory Clinical Summaryo n 03-25-2020 Ambulatory Clinical Summary {[id number]}CD:[id number] [facility] Patient Educationon 03-19-20 Patient Education lurasidone [...] ? an antiviral such as ritonavir; ? [place]'s wort; or ? seizure medicine such as [...] irritable, agitate (more content not included)... Normal [facility] Video Visit - Telehealtho n 02-23-2020 Video [...] interactive video communications from my office using [employer] due to the restrictions of the COVID-19 pandemic. No physical exam was conducted other than those areas of the body visible to telecommunications with the patient located at [address] [place] [address] [phone], with no one else in attendance. If [...] Stopped age (more content not included)... Normal [facility] Comment on above: Result Comment: Elec tronically Signed By: Deepa [facility], Maia Montero.mati\Date and Time Signed: 02/22/20 23:17 [...] interactive video communications from my office using [employer] due to the restrictions of the COVID-19 pandemic. No physical exam was conducted other than those areas of the body visible to telecommunications with the patient located at [address] [place], [place] [phone], with no one else in attendance. If [...] Sister. Depres (more content not included)... Normal [facility] Comment on above: Result Comment: Elec tronically Signed By: [facility]a [facility] Valle.mati\Date and Time Signed: 02/11/20 14:46 [...] interactive video communications from my office using [employer] due to the restrictions of the COVID-19 pandemic. No physical exam was conducted other than those areas of the body visible to telecommunications with the patient located at [address] [place] [address] [phone], with no one else in attendance. If [...] - Denies (more content not included)... Normal [facility] Comment on above: Result Comment: Elec tronically Signed By: Deepa [facility], Maia Ashley\.mati\Date and Time Signed: 02/11/20 14:37 EDT Video Visit - Telehealtho n 09-30-2020 Video Visit - Telehealth Start Time 3:00pm [...] interactive video communications from my office using [employer] due to the restrictions of the COVID-19 pandemic. No physical exam was conducted other than those areas of the body visible to telecommunications with the patient located at [address] [place] [address] [phone], with no one else in attendance. If [...] Tobacco F (more content not included)... Normal [facility] Comment on above: Result Comment: Elec tronically Signed By: Deepa [facility], Maia Montero.mati\Date and Time Signed: 01/29/20 21:44 [...] interactive video communications from my office using [employer] due to the restrictions of the COVID-19 pandemic. No physical exam was conducted other than those areas of the body visible to telecommunications with the patient located at [address] [place] [address] [phone], with no one else in attendance. If [...] Yes, 09 (more content not included)... Normal [facility] Comment on above: Result Comment: Elec tronically Signed By: Deepa [facility], Maia Montero.br\Date and Time Signed: 01/29/20 21:38 [...] include drow (more content not included)... Normal [facility] Video Visit - Telehealtho n 01-13-2020 Video [...] interactive video communications from my office using [employer] due to the restrictions of the COVID-19 pandemic. No physical exam was conducted other than those areas of the body visible to telecommunications with the patient located at [address] [place] [address], with no one else in attendance. If [...] Tobacco For (more content not included)... Normal [facility] Comment on above: Result Comment: Elec tronically Signed By: Deepa [facility], Maia Montero.br\Date and Time Signed: 01/13/20 09:40 EDT Patient Educationon 01-13-20 20 Patient Education aripiprazole (AR i PIP ra welsh) Say Lerma Discmelh[place] What is the most [...] include drow (more content not included)... Normal [facility] Video Visit - Telehealtho n 01-07-2020 Video [...] interactive video communications from my office using [employer] due to the restrictions of the COVID-19 pandemic. No physical exam was conducted other than those areas of the body visible to telecommunications with the patient located at [address] [place] [address] [phone], with no one else in attendance. If [...] Use:. N (more content not included)... Normal [facility] Comment on above: Result Comment: Elec tronically Signed By: Deepa [facility], Maia Montero.mati\Date and Time Signed: 01/07/20 12:38 [...] interactive video communications from my office using [employer] due to the restrictions of the COVID-19 pandemic. No physical exam was conducted other than those areas of the body visible to telecommunications with the patient located at [address] [place], [place] [phone], with no one else in attendance. If [...] Father and (more content not included)... Normal [facility] Comment on above: Result Comment: Elec tronically Signed By: Deepa [facility], Maia Montero.mati\Date and Time Signed: 12/30/19 13:50 [...] interactive video communications from my office using [employer] due to the restrictions of the COVID-19 pandemic. No physical exam was conducted other than those areas of the body visible to telecommunications with the patient located at [address] [place], [place] [phone], with no one else in attendance. If [...] Alcohol U (more content not included)... Normal [facility] Comment on above: Result Comment: Elec tronically Signed By: Deepa [facility], Maia K\.br\Date and Time Signed: 12/23/19 16:54 EDT Patient Educationon 12-23-19 Patient Education aripiprazole (KEMAR welsh) Say Lerma [...] drow (more content not included)... Normal [facility] Video Visit - Telehealtho n 12-04-2019 Video [...] interactive video communications from my office using [employer] due to the restrictions of the COVID-19 pandemic. No physical exam was conducted other than those areas of the body visible to telecommunications with the patient located at [address] [place] [address], with no one else in attendance. If [...] Daily, 5 (more content not included)... Normal [facility] Comment on above: Result Comment: Elec tronically Signed By: Deepa [facility], Maia Montero.br\Date and Time Signed: 12/04/19 09:42 [...] rate, h (more content not included)... Normal [facility] Vital Signs Date Time Vital Sign Value Performing Clinician Facility 03-06-2024 11:20-0500 Body mass index (BMI) [Ratio] 41.34 kg/m2 Jobaline Work Phone: [facility] 03-06-2024 11:20-0500 Body weight 102.51 kg Jobaline Work Phone: [facility] 03-06-2024 11:20-0500 Diastolic blood pressure 68 mm[Hg] Jobaline Work Phone: [facility] 03-06-2024 11:20-0500 Systolic blood pressure 120 mm[Hg] [employer] Jorje DO Work Phone: [facility] 02-21-2024 13:57-0400 Body mass index (BMI) [Ratio] 41.3 kg/m2 [employer] Jorje DO Work Phone: [facility] 02-21-2024 13:57-0400 Body weight 102.42 kg Jobaline Work Phone: [facility] 02-21-2024 13:57-0400 Diastolic blood pressure 70 mm[Hg] Johnathan Jorje DO Work Phone: [facility] 02-21-2024 13:57-0400 Systolic blood pressure 100 mm[Hg] Johnathan Jorje DO Work Phone: [facility] 02-15-2024 13:03-0400 Body height 160 cm Malena Cardona MD Work Phone: [facility] 02-15-2024 13:03-0400 Body mass index (BMI) [Ratio] 39.65 kg/m2 Malena Cardona MD Work Phone: [facility] 02-15-2024 13:03-0400 Body weight 101.52 kg Malena Cardona MD Work Phone: [facility] 02-15-2024 13:03-0400 Diastolic blood pressure 74 mm[Hg] Malena Cardona MD Work Phone: [facility] 02-15-2024 13:03-0400 Heart rate 94 /min Malena Cardona MD Work Phone: [facility] 02-15-2024 13:03-0400 Systolic blood pressure 123 mm[Hg] Malena Cardona MD Work Phone: [facility] 08-18-2023 14:24-0400 Body height 160.02 cm [facility] 08-18-2023 14:24-0400 Body mass index (BMI) [Ratio] 40.2 kg/m2 [facility] 08-18-2023 14:24-0400 Body temperature 98.4 [degF] [facility] 08-18-2023 14:24-0400 Body weight 103.02 kg [facility] 08-18-2023 14:24-0400 Diastolic blood pressure 81 mm[Hg] [facility] 08-18-2023 14:24-0400 Heart rate 101 /min [facility] 08-18-2023 14:24-0400 Respiratory rate 16 /min [facility] 08-18-2023 14:24-0400 SaO2% (BldA) [Mass fraction] 98 % [facility] 08-18-2023 14:24-0400 Systolic blood pressure 133 mm[Hg] [facility] 04-27-2023 16:30-0500 Body height 160.02 cm Sanaz Lockwood Other [employer] Other 04-27-2023 16:30-0500 Body mass index (BMI) [Ratio] 40.92 kg/m2 Sanaz Lockwood Other [employer] Other 04-27-2023 16:30-0500 Body temperature 98.2 [degF] Sanaz Lockwood Other [employer] Other 04-27-2023 16:30-0500 Body weight 104.78 kg Sanaz Lockwood Other [employer] Other 04-27-2023 16:30-0500 Respiratory rate 18 /min Sanaz Lockwood Other [employer] Other 04-27-2023 16:30-0500 SaO2% (BldA) [Mass fraction] 99 % Sanaz Lockwood Other [employer] Other 05-10-2022 14:45-0500 Body height 160.02 cm Kaylah Han Other [employer] Other 05-10-2022 14:45-0500 Body mass index (BMI) [Ratio] 38.97 kg/m2 Kaylah Han Other [employer] Other 05-10-2022 14:45-0500 Body temperature 99.3 [degF] Kaylah Han Other [employer] Other 05-10-2022 14:45-0500 Body weight 99.79 kg Kaylah Han Other [employer] Other 06-29-2019 22:40-0500 Pulse (Heart Rate) 84 /min [facility] 06-29-2019 22:40-0500 Pulse Oximetry 97 % [facility] 06-29-2019 22:35-0500 BP Diastolic 56 mm[Hg] [facility] 06-29-2019 22:35-0500 BP Systolic 100 mm[Hg] [facility] 06-29-2019 21:11-0500 BMI (Body Mass Index) 33.1 kg/m2 [facility] 06-29-2019 21:11-0500 Body Temperature 97.8 [degF] [facility] 06-29-2019 21:11-0500 Body weight 84.8 kg [facility] 06-29-2019 21:11-0500 Height 160.02 cm [facility] 06-29-2019 21:11-0500 Respiratory Rate 20 /min [facility] Encounters Encounter Date Encounter Type Care Provider Facility Start: 03-14-2024 End: 03-14-[address] [facility] Start: 03-11-2024 End: 03-11-2024 Bamboo flowsheet Liza ANTONIO Work Phone: [facility] Start: 03-11-2024 End: 03-11-2024 Bamboo flowsheet Liza ANTONIO Work Phone: [facility] Start: 03-11-2024 End: 03-11-2024 ambulatory LIZA DUQUE Not Available Start: 03-06-2024 End: 03-06-2024 Clinisync Result Encounter Johnathan Recinos DO Work Phone: [facility] External Department Unsolicited Start: 03-06-2024 End: 03-06-2024 Clinisync Result Encounter Johnathan Jorje DO Work Phone: [facility] External Department Unsolicited Start: 03-06-2024 End: 03-06-2024 ambulatory JOHNATHAN JORJE Not Available Start: 03-06-2024 End: 03-06-2024 flow sheet Johnathan Jorje DO Work Phone: [facility] Comment on above: 24 weeks gestation o f ; Second trimester ; Flank pain; Acute cystitis with hematuria Start: 02-26-2024 End: 02-26-2024 ambulatory [facility] Start: 02-21-2024 End: 02-21-2024 Bamboo flowsheet Johnathan Jorje DO Work Phone: [facility] Start: 02-21-2024 End: 02-21-2024 Bamboo flowsheet Johnathan Jorje DO Work Phone: [facility] Start: 02-21-2024 End: 02-21-2024 ambulatory JOHNATHAN JORJE Not Available Start: 02-21-2024 End: 02-21-2024 flow sheet Johnathan Jorje DO Work Phone: [facility] Comment on above: 22 weeks gestation o f ; Second trimester ; Diabetes mellitus screening Start: 02-15-2024 End: 02-15-2024 Office consultation new/estab patient 60 min Malena Cardona MD Work Phone: 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 Comment on above: 21 weeks gestation o f (Primary Dx); Obesity affecting in second trimester, unspecified obesity type Start: 02-15-2024 End: 02-15-[address] [facility] Start: 02-09-2024 End: 02-09-2024 Evaluation and management of inpatient TEJ ZENG [facility] Start: 02-08-2024 End: 02-09-2024 Evaluation and management of inpatient NATO LLOYD [facility] Start: 01-24-2024 End: 01-24-2024 ambulatory JOHNATHAN AHUMADAO Not Available Start: 01-03-2024 End: 01-03-2024 ambulatory LIZA DUQUE Not Available Start: 12-25-2023 End: 12-25-2023 ambulatory JOHNATHAN JORJE Not Available Start: 11-24-2023 End: 11-24-2023 ambulatory JOHNATHAN JORJE Not Available Start: 08-18-2023 End: 08-18-2023 ambulatory [facility] Work Phone: Start: 08-18-2023 End: 08-18-2023 Patient encounter procedure Counts Include [facility] Work Phone: Start: 04-27-2023 End: 04-27-2023 ambulatory Sanaz Lockwood Other [employer] Other Start: 04-27-2023 Office outpatient vi sit 25 minutes Sanaz Lockwood [facility] Start: 05-10-2022 End: 05-10-2022 ambulatory Kaylah Han Other [employer] Other Start: 05-10-2022 Office outpatient ne w 20 minutes Kaylah Han [facility] Start: 04-27-2022 End: 04-27-2022 ambulatory KIMBERLYN XIE Facility:H1 Start: 03-07-2022 End: 03-07-2022 ambulatory KIMBERLYN XIE Facility:H1 Start: 09-23-[address] JAZIEL HILL Facility :H1 Start: 06-29-2019 End: 06-29-2019 Emergency department patient visit Kimberlyn Xie [facility] Procedures Date Procedure Procedure Detail Performing Clinician Start: 03-06-2024 [facility] UA (CLEAN/CATCH) BILL RECAPITULATION CLERK/MICRO IF IND. Johnathan Jorje DO Work Phone: Start: 03-06-2024 Urnls dip stick/tablet rgnt non-auto w/o micrscp Johnathan Jorje DO Work Phone: Start: 02-21-2024 Urnls dip stick/tablet rgnt non-auto w/o micrscp Johnathan Jorje DO Work Phone: Start: 02-15-2024 H/O: section History of section complicating Malena Cardona MD Work Phone: Start: 01-24-2024 Microscopic observation [Identifier] in Cervix by Cyto stain Flor Lopez RN Start: 08-18-2023 Quick Strep (POC) Plan of Treatment Date Care Activity Detail Author Start: 01-23-2027 Screening for malign ant neoplasm of cervix [facility] Start: 02-14-2025 Adult BMI Screening Adult BMI Screen ing [facility] Start: 02-14-2025 Tobacco Screening Tobacco Screening [facility] Start: 02-14-2025 End: 02-14-2025 US MFM with or without consult US MFM with or without consult Imaging Routine 21 weeks gestation of Obesity affecting in second trimester, unspecified obesity type Expected: 02/14/2025 (Approximate), Expires: 02/14/2025 [facility] Work Phone: Comment on above: Expected: 02/14/2025 (Approximate), Expires: 02/14/2025 Start: 03-21-2024 End: 03-21-2024 Patient encounter procedure 03/21/2024 1:30 PM EST Routine [facility] [address] [address] Liza Duque PA [address] [place] [address] [place] [address] [facility] Start: 03-14-2024 End: 03-14-2024 Patient encounter procedure 03/14/2024 9:45 AM EST Appointment [facility] [address] [place] [address] [facility] Start: 02-22-2024 End: 02-22-2024 Patient encounter procedure 02/22/2024 10:15 AM EDT Appointment [facility] [place] [address] [address] [place] [address] [facility] [place] Start: 02-21-2024 End: 02-20-2025 CBC panel - Blood by Automated count CBC Lab Routine Diabetes mellitus screening Expected: 02/21/2024 (Approximate), Expires: 02/20/2025 [facility] Work Phone: Comment on above: Expected: 02/21/2024 (Approximate), Expires: 02/20/2025 Start: 02-21-2024 End: 02-20-2025 Measurement of glucose 1 hour after glucose challenge for glucose tolerance test Glucose tolerance, 1 hour Lab Routine Diabetes mellitus screening Expected: 02/21/2024 (Approximate), Expires: 02/20/2025 [facility] Comment on above: Expected: 02/21/2024 (Approximate), Expires: 02/20/2025 Start: 12-31-2023 COVID-19 Vaccine ( season) COVID-19 Vaccine ( season) [facility] Start: 12-31-2023 Influenza vaccination [facility] Start: 10-11-2021 DTaP,Tdap and Td Vaccines (2 - Td or Tdap) DTaP,Tdap and Td Vaccines (2 - Td or Tdap) [facility] Start: 2017 Screening for malign ant neoplasm of cervix HPV/Cotest [facility] Start: 2005 Adult BMI Follow Up Plan Adult BMI Follow Up Plan [facility] Start: 1999 [facility] Bacteria identified in Urine by Culture Urine culture Microbiology Routine 24 weeks gestation of Second trimester Ordered: 03/06/2024 [facility] Work Phone: Comment on above: Ordered: 03/06/2024 Patient Education Epinephrine (B y injection) Anaphylaxis (ED) General Allergic Reaction (ED) [facility] Patient referral [facility] Immunizations Immunization Date Immunization Notes Care Provider Fa bethany 06-02-2008 influenza virus vaccine, unspecified formulation Flor Lopez RN [facility] Payers Date Payer Category Payer [facility] BCBS [id number] 2023 [facility] Managed Care - PPO JOSHUAEM [id number] 1987 Unknown [id number] 2.16.840.1.074012.3.579. 2.593 1987 Unknown [id number] 2.16.840.1.947596.3.579. 2.593 1987 Unknown [id number] 2.16.840.1.755348.3.579. 2.593 1987 Unknown [id number] 2.16.840.1.585273.3.579. 2.1259 1987 Unknown [id number] 2.16.840.1.456335.3.579. 2.1258 1987 Unknown [id number] 2.16.840.1.261542.3.579. 2.9 1987 Unknown [id number] 2.16.840.1.903592.3.579. 2.1258 1987 Unknown [id number] 2.16.840.1.460415.3.579. 2.1258 1987 Unknown [id number] 2.16.840.1.768069.3.579. 2.1258 1987 Unknown [id number] 2.16.840.1.598545.3.579. 2.9 1987 Unknown [id number] 2.16.840.1.299394.3.579. 2.1285 1987 Unknown [id number] 2.16.840.1.455658.3.579. 2.1285 1987 Unknown [id number] 2.16.840.1.373594.3.579. 2.1285 1987 Unknown [id number] 2.16.840.1.375133.3.579. 2.1285 1987 Unknown [id number] 2.16.840.1.657395.3.579. 2.1285 1987 Unknown [id number] 2.16.840.1.900627.3.579. 2.1286 1959 Self-pay [id number] 1959 Unknown [id number] Private Health Insurance [id number] Self-pay Self Pay [id number] Social History Date Type Detail Facility Start: 06-29-2019 End: 08-18-2023 Tobacco smoking status AKIS Smoker (finding) [facility] Start: 1985 Sex Assigned At Female [facility] Start: 06-10-2020 End: 02-15-2024 Sex Assigned At [employer] Other Start: 02-15-2024 Tobacco smoking status RUST Ex-smoker [facility] Start: 02-15-2024 Tobacco use and exposure Smokeless tobacco non-user [facility] Start: 02-15-2024 Alcoholic beverage intake Lifetime non-drinker (finding) [facility] Start: 06-10-2020 End: 02-15-2024 History of Social function [facility] Childcare Unknown [facility] Start: 02-15-2024 Tobacco Comment PT IS A VAPER [facility] Start: 10-03-2023 [facility] Start: 1987 [facility] assigned [facility] Start: 12-02-2014 Sex Female (finding) [facility] Start: 02-08-2024 Sexual orientation Heterosexual (finding) [facility] Start: 10-26-2023 Gender identity Identifies as female gender (finding) [facility] Goals Date Patient Goal Desired Activity /State Personal health goal Comment on above: Formatting of this n ote might be different from the original. Evaluation of progress towards goal: go home today Clinical Notes 12-02-2019 to 03-06-2024 Gayle Hendricks LPN - 03/06/2024 10:50 AM Meghna Hendricks LPN - 02/21/2024 1:50 PM Tana Cardona MD - 02/15/2024 1:00 PM Sabrina Lopez RN - 02/15/2024 1:00 PM EDT Note Date & Type Note Facility 03-06-2024 History of Present illness Narrative Reason for Appointment: Patient ID: Mikaela Ruiz is a 38 y.o. female who presents for Routine Visit Patient presents today for Acute Visit. and Return OB appointment. MEDICATIONS Current Outpatient Medications [...] Medical History: Diagnosis Date Bipolar 1 disorder (CMS/HCC) HISTORY PAST MEDICAL HISTORY SOCIAL HISTORY Past Medical History: Diagnosis Date Bipolar 1 disorder (CMS/HCC) Social History Tobacco Use Smoking status: Not [...] Respiratory: Negative. Cardiovascular: Negative. Gastrointestinal: Negative. Genitourinary: Positive for dysuria and flank pain. Skin: Negative. Neurological: Negative. All other systems [...] nursing note reviewed. Exam conducted with a toddler teacher present. Vitals: Estimated body mass index is 41.34 kg/m as calculated from the following: Height as of 03/18/22: 5' 2 . Weight as of this encounter: 226 lb. BP: 120/68 Patient's last menstrual period was 09/12/2023. ASSESSMENT & PLAN ICD-10-CM 1. 24 weeks gestation of Z3A.24 POCT urinalysis dipstick manually resulted Urine culture 2. Second trimester Z34.92 POCT urinalysis dipstick manually resulted Urine culture Pt presents with UTI symptoms, flank pain. Pt being sent to [facility] for evaluation. Discussed starting antibiotic and prophylaxis antibiotic for remainder of . Pt voiced understanding. [facility] will send urine for culture. Pt to return in 2 weeks for scheduled ob appt. Rx for keflex for 7 days four times a day faxed to pharmacy and keflex 500 PO daily for remainder of . Documented by Gayle Hendricks LPN on behalf of: Johnathan Recinos DO documented in this encounter [facility] 02-21-2024 History of Present illness Narrative Reason [...] Medical History: Diagnosis Date Bipolar 1 disorder ([facility]/HCC) HISTORY PAST MEDICAL HISTORY SOCIAL HISTORY Past Medical History: Diagnosis Date Bipolar 1 disorder ([facility]/HCC) Social History Tobacco Use Smoking status: Not [...] nursing note reviewed. Exam conducted with a toddler teacher present. Vitals: Estimated body mass index is [...] Johnathan Recinos DO documented in this encounter [facility] 02-15-2024 History of Present illness Narrative [...] Medical History: Diagnosis Date Bipolar 1 disorder ([facility]) Depression PSHIST: Past Surgical History: Procedure Laterality [...] UTI suppression in . 02/24/24 08/22/24 Yeny Mcintyre, lamoTRIgine (LaMICtal) 25 mg tablet Take 8 [...] >=40. At age 38 y.o. Ms. Prosper Ruiz'domingo age based aneuploidy risks are: The risk [...] 4. Bipolar disease during in second trimester ([facility]) I reviewed with the patient that stability [...] of withdrawal and extrapyramidal effects on reviewed. Suggestion Clerk should be notified. Lack of controlled human [...] rarely reported and if they are concerned blood levels can be taken. Also based [...] . For prevention of venous thromboembolism in ffls-tobg-qtby groups, pharmacologic thromboprophylaxis should be considered in [...] smoking include double the risk for sudden infant syndrome (adjusted OR 2.44, 95% CI 2.31-2.57) [...] prevention Cervical length at 22 weeks at [facility] Follow up survey scheduled Serial growth assessments every 4 weeks after the anatomy scan can be done at OB office. ventricles should be measured at each US. If >=10 mm or concern for hydrocephalus refer to M. If you would like [facility] to do the growth US please [...] Malena Cardona MD, FACOG (she/hers) Maternal- Medicine [facility] [address] [facility] [address] [place] [address] This document was created with [employer] technology. Though I make every effort to review the dictation as it is transcribed, on occasion the spoken word can be misinterpreted by the technology leading to inappropriate words, phrases, or sentences. This note is addressed to the requesting provider as a consultation for clinical guidance. Specific medical abbreviations are occasionally used and those are generally approved by the [place]?Board of?Obstetrics and?Gynecology?as well as?Jeri s abbreviations. The above plan of care was based solely on the diagnoses for which a consultation was requested. ?More frequent testing may be indicated based on her other medical/obstetrical conditions. The management of other or medical conditions is beyond the scope of requested consultation and will continue to be followed by the primary sed high school teacher or primary care provider. Note to patient: The Century Cures Act makes medical notes like these [...] yes Have you been seen here at [facility] in a previous ? yes Recent ER visits or hospitalizations? 02/07 kidney and bladder infection Bring blood sugar log or meter with you today? (Please bring them with you for every visit at [facility]) na Flu vaccine (Mar-June)? na Any concerns that you would like me to mention to the provider today? no documented in this encounter [facility] 04-27-2023 Evaluation note Encounter Date Diagnosis Assessment [...] condition. Mar, Sore throat (ICD-10 - J02.9) [facility] Other 01-10-2023 Evaluation note* Encounter Date Diagnosis [...] weeks for the cough to go away [employer] Other 11-07-2022 NoteIndication: Abdominal pain. Comparison: None [...] by: SURJIT FREITAS Date: 2022-03-07 20:49[facility]11-19-2020 NoteHPI Staff This visit was conducted via phone communications from my office due to the restrictions of the COVID-19 pandemic. No physical exam was conducted due to audio only communication with the patient located at [address] [place] [phone], with no one else. If it is determined that the patientshould be evaluated in person, the patient will be directed to the appropriate clinic or venue. Thepatient or their guardian verbally consented to this visit. Phone time was 15 minutes discussing health issues with counseling and coordination of care. Subjective Interval History/HPI Patient presents today for follow up via telehealth phone from [facility]. Patient started Latuda 20mg last evening [...] anxiety, # 30 tab(s), Refills(s) 2, Pharmacy: [facility]/pharmacy #[id number], 161, cm, 12/23/19 10:18:00 EDT, Height/Length Dosing, 82, kg, 12/23/19 10:18:00 EDT, Weight Dosing Orders: lurasidone, 20 mg = 1 tab(s), Oral, Daily, with 350 calories; begin this dose first then progress to next dose of 40mg, X 1 week(s), # 7 tab(s), Refills(s) 0, Pharmacy: [id number], 161, cm, 12/23/19 10:18:00 EDT, Height/Length Dosing, 82, kg, 12/23/19 10:... lurasidone, 40 mg = 1 tab(s), Oral, Daily, with 350 calories, # 30 tab(s), Refills(s) 1, Pharmacy: [facility]/pharmacy #[id number], 161, cm, 12/23/19 10:18:00 EDT, Height/Length [...] (generalized anxiety disorder) Hidr (more content not included)...[facility] Center[facility] on above: Result Comment: Electronically Signed By: Carlota RODRIGUEZ CNP\.br\Date and Time Signed: 03/19/20 14:27 [id number] NoteI Staff This visit was conducted via two-way, real-time interactive video communications from my office using [employer] due to the restrictions of the COVID-19 pandemic. No physical exam was conducted other than those areas of the body visible to telecommunications with the patient located at [address] [place] [address], with no one else in attendance. If [...] Ordered: TELEHEALTH Office Visit Level 3 Est 67679 General Treatment Plan Maintain medication regimen _Improve [...] Employed, 03/18/2019 Home/Environment Sylvia (more content not included)...[facility] CenterComment on above: Result Comment: Electronically Signed By: Carlota RODRIGUEZ CNP\harshil\Date and Time Signed: 03/05/20 13:32 [id number] NoteI Staff This visit was conducted via two-way, real-time interactive video communications from my office using [employer] due to the restrictions of the COVID-19 pandemic. No physical exam was conducted other than those areas of the body visible to telecommunications with the patient located at [address] [place] [phone], with no one else in attendance. If [...] # 30 tab(s), Refills(s) 1, [id number], 161, cm, 12/23/19 10:18:00 EDT, Height/Length Dosing, 82, kg, 12/23/19 10:18:00 EDT, Weight Dosing alprazolam, 0.5 mg = 1 tab(s), Oral, TID, PRN for anxiety, # 30 tab(s), Refills(s) 1, [id number], 161, cm, 12/23/19 10:18:00 EDT, Height/Length Dosing, 82, kg, 12/23/19 10:18:00 EDT, Weight Dosing aripiprazole, See Instructions, 1.5 tab po qAM, # 30 tab(s), Refills(s) 2, [id number], 161, cm, 12/23/19 10:18:00 EDT, Height/Length Dosing, 82, kg, 12/23/19 10:18:00 EDT, Weight Dosing aripiprazole, See Instructions, 1 tab po qAM, # 30 tab(s), Refills(s) 5, [id number], 161, cm, 12/23/19 10:18:00 EDT, Height/Length Dosing, 82, kg, 12/23/19 10:18:00 EDT, Weight Dosing cyclobenzaprine, 10 mg = 1 tab(s), Oral, TID, PRN for spasm, # 30 tab(s), Refills(s) 1, [id number], 161, cm, 06/13/19 14:39:00 EST, Height/Length Measured, 82, kg, 06/13/19 14:39:00EST, Weight Measured cyclobenzaprine, 10 mg = 1 tab(s), Oral, TID, PRN for spasm, # 30 tab(s), Refills(s) 1, [id number], 161, cm, 12/23/19 10:18:00 EDT, Height/Length Dosing, 82, kg, 12/23/19 10:18:00 EDT, Weight Dosing General Treatment Plan Maintain medication regimen _Improve mood stability _Improve anxiety control _Improve social and interpersonal functioning Clinical Global Impression 62 Prognosis progressing Follow-up With When Contact Information Carlota RODRIGUEZ CNP In 4 weeks Additional Instructions: (more content not included)...[facility] CenterComment on above:Result Comment: Electronically Signed By: Carlota RODRIGUEZ CNP\.br\Date and Time Signed: 01/27/20 22:35 [id number] NoteI Staff This visit was conducted via two-way, real-time interactive video communications from my office using [employer] due to the restrictions of the COVID-19 pandemic. No physical exam was conducted other than those areas of the body visible to telecommunications with the patient located at [address] [place] [address], with no one else in attendance. If [...] Ordered: TELEHEALTH Office Visit Level 3 Est 99176 General Treatment Plan Maintain medication regimen _Improve mood stability _Improve anxiety control _Improve social and interpersonal functioning Clinical Global Impression 63 Prognosis progressing Follow-up With When Contact Information JENNIFER BRADENCarlota In 2 weeks Additional Instructions: Problem List/Past [...] Use:. Never Smokeless Tob (more content not included)...[facility] CenterComment on above:Result Comment: Electronically Signed By: Carlota RODRIGUEZ CNP\.mati\Date and Time Signed: 01/13/20 09:11 [id number] NoteI Staff This visit was conducted via two-way, real-time interactive video communications from my office using [employer] due to the restrictions of the COVID-19 pandemic. No physical exam was conducted other than those areas of the body visible to telecommunications with the patient located at [address] [place] [address], with no one else in attendance. If [...] anxiety, # 30 tab(s), Refills(s) 1, Pharmacy: [facility]/pharmacy #[id number], 161, cm, 12/23/19 10:18:00 EDT, Height/Length Dosing, 82, kg, 08/24/20 10:18:00 EDT, Weight Dosing alprazolam, 0.5 mg = 1 tab(s), Oral, TID, PRN for anxiety, # 30 tab(s), Refills(s) 1, [id number], 161, cm, 06/13/19 14:39:00 EST, Height/Length Measured, 82, kg, 06/13/19 14:39:00 EST, Weight Measured aripiprazole, See Instructions, 1 tab po qAM, # 30 tab(s), Refills(s) 0, Pharmacy: [facility]/pharmacy #[id number], 161, cm, 12/23/19 10:18:00 EDT, Height/Length Dosing, 82, kg, 12/23/19 10:18:00 EDT, Weight Dosing General Treatment Plan Maintain medication regimen _Improve mood stability _Improve anxiety control _Improve social and interpersonal functioning Clinical Global Impression 60 Prognosis progressing Follow-up With When Contact Information Carlota RODRIGUEZ CNP In 2 weeks Additional Instructions: Problem List/Past Medical History Ongoing Bipolar 1 disorder Fatigue BBO (generalized anxiety disorder) Hidradenitis suppurativa Major depression, [...] Allergies Bactrim Social History (more content not included)...[facility] CenterComment on above:Result Comment: Electronically Signed By: Carlota RODRIGUEZ CNP\.br\Date and Time Signed: 12/23/19 16:37 [id number] NoteI Staff This visit was conducted via two-way, real-time interactive video communications from my office using [employer] due to the restrictions of the COVID-19 pandemic. No physical exam was conducted other than those areas of the body visible to telecommunications with the patient located at [address] [place] [phone], with no one else in attendance. If [...] q24hr, # 30 tab(s), Refills(s) 2, Pharmacy: [facility]/pharmacy #[id number],161, cm, 06/13/19 14:39:00 EST, Height/Length Measured, 82, kg, 06/13/19 14:39:00 EST, Weight Measured cyclobenzaprine, 10 mg = 1 tab(s), Oral, TID, PRN for spasm, # 30 tab(s), Refills(s) 1, Pharmacy: [facility]/pharmacy #[id number], 161, cm, 06/13/19 14:39:00 EST, Height/Length Measured, 82, kg, 06/13/19 14:39:00EST, Weight Measured General Treatment Plan Maintain medication regimen _Improve mood stability _Improve anxiety control _Improve social and interpersonal functioning Clinical Global Impression 60 Prognosis progressing Follow-up With When Contact Information JENNIFER BRADEN Carlota Abhilash In 3 weeks Additional Instructions: Problem List/Past [...] Employment/School Employed, 03/18/2019 Home/Environment (more content not included)...[facility] CenterComment on above:Result Comment: Electronically Signed By: Carlota RODRIGUEZ CNP\harshil\Date and Time Signed: 12/02/19 16:38 EDTChief complaint+Reason for visit Narrative* Chief Complaint Nausea, diarrhea, fe zhou Reason for Visit Contact with and (guillen spected) exposure to covid-19 Sore [address] [facility] Work Phone: Evaluation note* Diagnosis Onset Date Resolution Status Contact with and (suspected) exposure to covid-19 noneactive Sore throat noneactive [facility] Work Phone: Evaluation note* Diagnosis 21 weeks gestation of - Primary Obesity affecting in second trimester, unspecified obesity type documented [facility] Diagnosis 21 weeks gestation of - Primary Multigravida of advanced maternal age in second trimester Pyelonephritis affecting in second trimester Bipolar disease during in second trimester ([facility]) Obesity affecting in second trimester, unspecified obesity type BMI 39.0-39.9,adult History of section complicating Previous delivery, unspecified as to episode of care or not applicable Vapes nicotine containing substance Current rao with 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, antepartum History of delivery, currently with history of pre-term labor documented in this encounter [facility]* Diagnosis 22 weeks gestation of Second trimester state, incidental Diabetes mellitus screening Screening for diabetes mellitus documented in this encounter [facility] Healthcare[facility]* Diagnosis 24 weeks gestation of Second trimester state, incidental Flank pain Abdominal pain, unspecified site Acute cystitis with hematuria documented in this encounter [facility] Narrative - Reported* Type Description Date Medical History Bipolar Surgical History appendectomy Surgical History x 3 Hospitalization History see above surgical histo ry [facility] [employer] Other InstructionsNot on filedocumented in this encounter [facility]* Attachments The following attachments cannot be sent through Care Everywhere. * Preeclampsia ([place]) * Movement ([place]) documented in this encounter[facility] Advance Directives Advance Directive Response Recorded Date/ [...] may need to be seen by an tactical air control party manager if you have other events like this without definite egg exposure. Summary Purpose Family History Relationship Condition Age at Onset Recorded Date/T alo father Diabetes mellitus Unknown Hypertension Unknown Additional Source Comments INFORMATION SOURCE (unrecogn ized section and content) DATE CREATED AUTHOR 10/30/2020 [facility] DATE CREATED AUTHOR AUTHOR'S ORGANIZ ATION 04/29/2022 [facility] DATE CREATED AUTHOR AUTHOR'S ORGANIZ ATION 03/13/2024 [facility] DATE CREATED AUTHOR AUTHOR'S ORGANIZ ATION 03/16/2024 [facility] REASON FOR VISIT (unrecogniz ed section and content) Reason Comments AMA Reason Comments Routine Visit Care Teams (unrecognized sec tion and content) Team Status: Active Member Role Status Dates JAQUAN Hilton Primary Care Provider Active Team Status: Inactive Member Role Status Dates JAQUAN Hilton Primary Care Provider Active Start: August 18, 2023 End: August 18, 2023 Sanaz Lockwood APRN Attending Provider Active Start: August 18, 2023 End: August 18, 2023 Shorer Relationship Specialty Start Date End Date No Pcp, [place] [id number] PCP - General Family Medicine 03/12/19 Shorer Relationship Specialty Start Date End Date No Pcp, [place] [id number] PCP - General Family Medicine 03/12/19 Goals [...] BE BASED ON THE PRIMARY CLINICAL RECORDS. [employer] provides no warranty or guarantee of the accuracy or completeness of information in this document.
[2024-03-21 11:13] LABS: Basophils Percent Auto 0.1 % (0.2-2.0); Eosinophils Percent Auto 0.5 % (0.9-7.0); Hematocrit 35.2 % (36.0-48.0); Hemoglobin 11.5 g/dL (12.0-16.0); Immature Granulocytes Abs Auto 0.05 10^3/uL (0.00-0.03); Immature Granulocytes Pct Auto 0.6 % (0.0-0.5); Lymphocytes Absolute Auto 1.9 10^3/uL (1.2-3.8); Lymphocytes Percent Auto 22.9 % (20.5-60.0); Mean Corpuscular HGB Conc 32.7 g/dL (29.9-35.2); Mean Corpuscular Hemoglobin 30.5 pg (26.7-34.0); Mean Corpuscular Volume 93.4 fL (81.0-99.0); Mean Platelet Volume 10.5 fL (9.5-13.5); Monocytes Absolute Auto 0.3 10^3/uL (0.3-0.8); Monocytes Percent Auto 3.3 % (1.7-12.0); Neutrophils Absolute Auto 6.1 10^3/uL (1.4-6.5); Neutrophils Percent Auto 72.6 % (43.0-75.0); Platelet Count 347 10^3/uL (150-450); Red Blood Count 3.77 10^6/uL (4.20-5.40); Red Cell Distribution Width 13.9 % (11.0-15.0); White Blood Count 8.4 10^3/uL (4.0-11.0)
[2024-03-21 12:04] LABS: Glucose 1 Hour 181 mg/dL (<130)
== END 2024-03-21 09:54 | disposition home or self-care (01) ==
LOC: LAB 09:54
PROVIDERS: PCP Nurse Practitioner Family; Visit Provider Obstetrics & Gynecology
DX: Z13.1 Encounter for screening for diabetes mellitus (principal)
CPT/HCPCS: 36415; 82950; 85025

== ENCOUNTER 2024-04-03 12:37 | Outpatient (OUT) | payer BC, SELFPAY ==
--- NOTE | 2024-04-03 | US_ITS ---
[address] [address] Patient Name: PROSPER RUIZ MRN: [id number] date: 1985 Sex: F Assigned Patient Location: RAD Current Patient Location: RAD Accession/Order Number: [id number] Exam Date: 04/03/2024 12:40 Report Date: 04/03/2024 13:17 At the request of: MAKENZIE SO Procedure: US OB growth EXAMINATION: US OB growth HISTORY: Gestational diabetes mellitus O24.419 COMPARISON: No relevant comparison available. FINDINGS: Amniotic Fluid Volume: 19.4 cm, largest fluid pocket 7.1 cm Number: 1 Position: Cephalic presentation, longitudinal lie BIOMETRY: BPD: 7.19 cm; 28 weeks 6 days; 61.50 % HC: 26.53 cm; 28 weeks 6 days; 41.70 % AC: 26.08 cm; 30 weeks 2 days; 93 % FL: 5.10 cm; 27 weeks 2 days; 14.70 % EFW: 1329.13 g; 72.90 %, 2 lbs. 15 oz. FL/AC: 19.55 FL/BPD: 70.96 HC/AC: 1.02 GESTATIONAL AGE: Age by EDC: 28 weeks 1 day LISA by EDC: 2024-06-25 Age by US: 28 weeks 6 days LISA by US: 2024-06-20 US/US OB growth IMPRESSION: Normal interval growth Electronically authenticated by: [employer] [place] Date: 04/03/2024 13:17
== END 2024-04-03 12:38 | disposition home or self-care (01) ==
LOC: RAD 12:37
PROVIDERS: PCP Nurse Practitioner Family; Visit Provider Obstetrics & Gynecology
DX: O24.419 Gestational diabetes mellitus in pregnancy, unspecified control (principal); Z3A.28 28 weeks gestation of pregnancy
CPT/HCPCS: 76816

== ENCOUNTER 2024-04-03 15:02 | Outpatient (RCR) | payer BC, SELFPAY ==
[2024-04-03] MEDS: 0.9 % SODIUM CHLORIDE 1,000 ML 999 ML IV (16:02)
[2024-04-03 16:16] VITALS: BP 101/62; PULSE 83
[2024-04-03] MEDS: CEFAZOLIN SODIUM/DEXTROSE,ISO 2 GM/50 ML PIGGYBACK IV (16:16)
[2024-04-03] MEDS: ONDANSETRON PF 4 MG/2 ML VIAL IV (16:16)
[2024-04-03 16:22] VITALS: TEMP 36.7
[2024-04-03 16:23] LABS: Basophils Percent Auto 0.2 % (0.2-2.0); Eosinophils Percent Auto 0.2 % (0.9-7.0); Hematocrit 34.8 % (36.0-48.0); Hemoglobin 11.5 g/dL (12.0-16.0); Immature Granulocytes Abs Auto 0.02 10^3/uL (0.00-0.03); Immature Granulocytes Pct Auto 0.2 % (0.0-0.5); Lymphocytes Percent Auto 20.5 % (20.5-60.0); Mean Corpuscular Hemoglobin 30.4 pg (26.7-34.0); Mean Corpuscular Volume 92.1 fL (81.0-99.0); Mean Platelet Volume 11.2 fL (9.5-13.5); Monocytes Absolute Auto 0.5 10^3/uL (0.3-0.8); Monocytes Percent Auto 4.8 % (1.7-12.0); Neutrophils Absolute Auto 7.4 10^3/uL (1.4-6.5); Neutrophils Percent Auto 74.1 % (43.0-75.0); Platelet Count 308 10^3/uL (150-450); Red Blood Count 3.78 10^6/uL (4.20-5.40); Red Cell Distribution Width 13.4 % (11.0-15.0); White Blood Count 9.9 10^3/uL (4.0-11.0)
[2024-04-03 16:29] LABS: Bilirubin Urine NEGATIVE (NEGATIVE); Blood Urine NEGATIVE (NEGATIVE); Clarity Urine CLEAR (CLEAR); Color Urine LT. YELLOW (YELLOW); Glucose Urine UA NEGATIVE (NEGATIVE); Ketones Urine NEGATIVE (NEGATIVE); Leukocyte Esterase Urine TRACE (NEGATIVE); Nitrite Urine NEGATIVE (NEGATIVE); Protein Urine NEGATIVE (NEG/TRACE); Specific Gravity Urine 1.015 (1.005-1.025); Urobilinogen Urine 0.2 EU/dL (0.2-1.0); pH Urine 6.5 (5.0-9.0)
[2024-04-03 16:33] LABS: Estimated GFR (African America >60 (>=60 mL/min/1.73m^2); Estimated GFR (Non-African Ame >60 (>=60 mL/min/1.73m^2)
[2024-04-03 16:35] LABS: Urine Microscopic Indicated YES
[2024-04-03 16:39] LABS: Alanine Aminotransferase 14 U/L (14-59); Albumin Globulin Ratio 0.8; Albumin Level 2.7 g/dL (3.4-5.0); Alkaline Phosphatase 105 U/L (46-116); Aspartate Amino Transferase 11 U/L (15-37); Bilirubin Direct 0.1 mg/dL (0.0-0.2); Bilirubin Total 0.2 mg/dL (0.2-1.0); Globulin 3.6 g/dL; Total Protein 6.3 g/dL (6.4-8.2)
[2024-04-03 16:40] LABS: Bacteria Urine SMALL #/HPF (NONE SEEN); Cast Seen? NONE SEEN #/LPF (NONE SEEN); Crystals Seen? None Seen #/HPF (None Seen); Mucus Urine NONE SEEN (NONE SEEN); RBC Urine 0-2 #/HPF (0-2); Squamous Epithelial Cell Urine FEW #/LPF (NONE/RARE); Transitional Epi Cells Urine RARE #/LPF (NONE SEEN); Urine Culture Indicated YES
[2024-04-03] MEDS: 0.9 % SODIUM CHLORIDE 1,000 ML 125 ML IV (17:29)
[2024-04-03 20:24] VITALS: BP 108/69; PULSE 85; TEMP 36.7
[2024-04-03 23:19] VITALS: TEMP 36.7
[2024-04-03 23:20] VITALS: BP 93/54; PULSE 81
[2024-04-03] MEDS: CEFAZOLIN SODIUM/DEXTROSE,ISO 1 GM/50 ML PREMIX IV (23:20)
== END 2024-04-03 23:55 | disposition home or self-care (01) ==
LOC: FBCO 15:02
PROVIDERS: PCP Nurse Practitioner Family; Visit Provider Obstetrics & Gynecology
DX: O23.43 Unspecified infection of urinary tract in pregnancy, third trimester (principal); N39.0 Urinary tract infection, site not specified; Z3A.28 28 weeks gestation of pregnancy
CPT/HCPCS: 36415; 80076; 81001; 82565; 83036; 84520; 85025; 86592; 86762; 86803; 86850; 86900; 86901; 87086; 87340; 87389; J0690; J2405

== ENCOUNTER 2024-04-09 08:08 | Outpatient (OUT) | payer BC, SELFPAY | END 2024-04-09 11:50 | disposition home or self-care (01) | LOC: FBCO 08:10 | PROVIDERS: PCP Nurse Practitioner Family; Visit Provider Obstetrics & Gynecology | DX: O24.419 Gestational diabetes mellitus in pregnancy, unspecified control (principal) | CPT/HCPCS: G0108 ==

== ENCOUNTER 2024-04-22 16:24 | Outpatient (OUT) | payer BC, OTHER, SELFPAY ==
--- OUTSIDE RECORDS SUMMARY | 2024-04-22 16:40 | XMS_ITS | CCD ---
Author Organization [facility] Care Team Providers Care Resident Medical Officer Name Role Phone Kimberlyn Xie Primary Care Provider Unavail able KIMBERLYN XIE Primary Care Unavailable LEONARDO, DR HECK Admitting Unavailable LEONARDO, DR HECK Attending Unavailable LEONARDO, DR HECK Consulting Unavailable PACO LONGORIA Consulting Unavailable ROCIO CHAU Consulting Unavailable ROJAS, KIMBERLYN Primary Care Unavailable EMA KEATING Admitting Unavailable EMA KEATING Attending Unavailable SURJIT FREITAS Consulting Unavailable KOLBY MAYEN Consulting Unavailable DR JAZIEL HILL Admitting Unavailable DR JAZIEL HILL Attending Unavailable ROJAS, KIMBERLYN Primary Care Unavailable Kaylah Han Unavailable Sanaz Lockwood Unavailable No Pcp, No Pcp Primary Care Provider Unavailabl e Unavailable Primary Care Provider Unavailabl e NATO LLOYD Admitting Unavailable NATO LLOYD Attending Unavailable REF PROV, NOT IN SYSTEM Referring Unavaila ble NO PCP, NO PCP Primary Care Unavailable JOSSELINE DONOVAN Consulting Unavailable TEJ ZENG Referring Unavailable NO PCP, NO PCP Primary Care Unavailable MALENA CARDONA Attending Unavailable JORJE, JOHNATHAN R Referring Unavailable NO PCP, NO PCP Primary Care Unavailable JORJE, JOHNATHAN R Referring Unavailable NO PCP, NO PCP Primary Care Unavailable MARTIN RILEY Referring Unavailable NO PCP, NO PCP Primary Care Unavailable JORJE, JOHNATHAN R Referring Unavailable NO PCP, NO PCP Primary Care Unavailable JORJE, JOHNATHAN Attending Unavailable LIZA DUQUE Attending Unavailable KT, LIZA Attending Unavailable JORJE, JOHNATHAN Attending Unavailable KT LIZA Attending Unavailable JORJE, JOHNATHAN Attending Unavailable JORJE, JOHNATHAN Attending Unavailable Unavailable Unavailable Unavailable Allergies Allergy Classification Reported Allergen(s) Allergy Type Date of Onset Reaction(s) Facility (2 sources) egg extract Drug Allergy 08-18-19 24 Vomiting [facility] (20 sources) Sulfamethoxazole; 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: [SULFAMETHOXAZOLE] Drug Allergy 08-18-19 [facility] (20 sources) Trimethoprim; 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: [TRIMETHOPRIM] Drug Allergy 08-18-19 [facility] (2 sources) Fish Containing Products Propensity to adverse reactions 08-18-19 Difficulty Breathing [facility] (1 source) Sulfamethoxazole / Trimethoprim Drug Allergy 02-04-20 13 [facility] (20 sources) Sulfamethoxazole / Trimethoprim Drug Allergy 11-24-19 24 hives, Unknown [facility] Other (20 sources) Egg-Derived Products Drug Allergy 08-18-19 GI intolerance [facility] Medications Current Medications Medication Drug Class(es) Dates Sig (Normalized) Sig (Original) acetaminophen 500 mg oral tablet (2 sources) take 2 tablets by mouth every six hours as needed for pain acetaminophen (TYLENOL EXTRA STRENGTH) 500 mg tablet Take 2 tablets (1,000 mg total) by mouth every 6 (six) hours as needed for pain. Active [id number] 200 actuat albuterol 0.09 mg/actuat metered dose [...] aspirin 81 mg delayed release oral tablet (17 sources) Platelet Aggregation Inhibitor, Nonsteroidal Anti-inflammatory Drug [...] 29, 2019 1:00am August 18, 2023 2:25pm bisacodyl 10 mg rectal suppository (3 sources) Stimulant Laxative Start: 01-08-2024 End: 01-24-2024 bisacodyl (Dulcolax) 10 MG suppository Indications: Constipation during in second trimester Insert 1 suppository (10 mg) into the rectum Daily as needed for constipation for up to 4 doses 4 suppository 01/08/2024 01/24/2024 Discontinued Blood Glucose Monitoring Suppl (D-Care Glucometer) w/Device kit (4 sources) Start: 03-25-2024 End: 03-25-2025 Blood Glucose Monitoring Suppl (D-Care Glucometer) w/Device kit Indications: Gestational diabetes mellitus (GDM), antepartum, gestational diabetes method of control unspecified , Elevated glucose tolerance test 1 kit Daily Use four times daily to check FSBS. In the morning prior to breakfast & 1 hour after each meal for a total of 4times daily. 1 kit 03/25/2024 03/25/2025 Active brexpiprazole 2 mg oral tablet (1 source) [...] 2023 12:00am cephalexin 500 mg oral capsule (20 sources) Cephalosporin Antibacterial Start: 02-24-2024 End: 08-22-2024 take 1 capsule by mouth once daily cephalexin (Keflex) 500 MG capsule Indications: Flank pain , Acute cystitis with hematuria , Urinary tract infection without hematuria, site unspecified Take 1 capsule (500 mg) by mouth Daily 30 capsule 4 04/03/2024 05/03/2024 Active Start: 02-09-2024 End: 02-23-2024 take 1 capsule by mouth every six hours CEPHalexin (KEFLEX) 500 mg capsule Take 1 capsule (500 mg total) by mouth every 6 (six) hours for 14 days. 56 capsule 02/09/2024 02/23/2024 Active dextromethorphan hydrobromide 15 mg / guaiFENesin 400 mg / pseudoephedrine hydrochloride 60 mg oral tablet (1 source) alpha-Adrenergic Agonist, Uncompetitive R-gckula-L-aspartate Receptor Antagonist, Sigma-1 Agonist Start: 04-27-2023 take 4 tablets by mouth every twenty-four hours as needed Capmist DM 60-15-400 MG as needed Orally every 4-6 hours as needed, max 4 tablets in 24 hours for 5 days Mar, Active [id number] 0.3 ml EPINEPHrine 1 mg/ml auto-injector (2 sources) alpha-Adrenergic Agonist, beta-Adrenergic Agonist, Catecholamine Start: 06-29-2019 Epinephrine Active 0.3 MG Intramuscular Once 2 June 29, 2019 10:18pm inject into anterolateral area of thigh; repeat x1 in 5-15 minutes if necessary Start: 06-29-2019 Epinephrine (E pipen 2-Jose) 0.3 mg/0.3 mL auto-injector Active 0.3 MG IM Once June 29, 2019 1:00am inject into anterolateral [...] June 29, 2019 10:18pm hydrOXYzine HCl Active isopropyl alcohol 0.7 ml/ml medicated pad (4 sources) Start: 03-25-2024 Alcohol Swabs (Alcohol Prep Pad) 70 % pads Indications: Gestational diabetes mellitus (GDM), antepartum, gestational diabetes method of control unspecified , Elevated glucose tolerance test Apply 1 Pad topically Daily Use four times daily to check FSBS. 150 each 3 03/25/2024 Active ketoconazole 20 mg/ml medicated shampoo (1 source) Azole Antifungal Start: 08-18-2023 Ketoconazole Active TOPICAL August 18, 2023 12:00am lamoTRIgine 200 mg oral tablet (20 sources) Mood Stabilizer, Anti-epileptic Agent Start: 08-18-2023 [...] 12:00am lurasidone hydrochloride 40 mg oral tablet (20 sources) Atypical Antipsychotic Start: 10-18-2023 take 1 [...] Active magnesium oxide 400 mg oral tablet (20 sources) Start: 01-09-2024 End: 01-08-2025 take 1 tablet by mouth once daily magnesium oxide (Mag-Ox) 400 MG tablet Indications: Constipation during in second trimester Take 1 tablet (400 mg) by mouth Daily 30 tablet 11 01/09/2024 01/08/2025 Active metoclopramide 10 mg oral tablet (11 sources) Dopamine-2 Receptor Antagonist Start: 04-03-2024 End: 05-03-2024 metoclopramide (Reglan) 10 MG tablet Indications: Flank pain , Acute cystitis with hematuria , Urinary tract infection without hematuria, site unspecified Take 1 tablet (10 mg) by mouth in the morning and 1 tablet (10 mg) at noon and 1 tablet (10 mg) in the evening. Take before meals. Take 1 tablet by mouth 30 minutes prior to meals 3 times daily as needed for nausea.. 90 tablet 2 04/03/2024 05/03/2024 Active Start: 12-01-2023 End: 01-24-2024 metoclopramide (Reglan) 10 M G tablet Indications: Nausea Take 1 tablet (10 mg) by mouth in the morning and 1 tablet (10 mg) at noon and 1 tablet (10 mg) in the evening. Take before meals. Take 1 tablet by mouth 30 minutes prior to meals 3 times daily as needed for nausea.. 90 tablet 12/01/2023 01/24/2024 Discontinued omeprazole 40 mg delayed release oral capsule (1 source) Proton Pump Inhibitor Start: 08-18-2023 take 40 mg by mouth once daily Omeprazole Active 40 MG PO Daily August 18, 2023 12:00am ondansetron 4 mg disintegrating oral tablet (17 sources) Serotonin-3 Receptor Antagonist Start: 03-08-2024 End: 04-24-2024 take 1 tablet by mouth every six hours for nausea ondansetron ODT (Zofran-ODT) 4 MG disintegrating tablet Indications: Nausea and vomiting in Take 1 tablet (4 mg) by mouth every 6 (six) hours if needed for nausea or vomiting 30 tablet 2 03/25/2024 04/24/2024 Active Start: 08-18-2023 take 8 mg by [...] no115/iron/folic acid ( 19 ORAL) (2 sources) no115/iron/folic acid ( 19 ORAL) Take by mouth. Active promethazine hydrochloride 12.5 mg oral tablet (12 sources) Phenothiazine Start: 03-25-20 End: 06-23-19 take 1 tablet by mouth every six hours as needed for nausea and nausea, then take 1 tablet by mouth every six hours as needed for nausea and nausea promethazine (Phenergan) 12.5 MG tablet Indications: Nausea and vomiting in Take 1 tablet (12.5 mg) by mouth every 6 (six) hours if needed for nausea or vomiting Take 1 tablet by mouth every 6 hours as needed for nausea. 30 tablet 2 03/25/2024 06/23/2024 Active Start: 11-24-2023 End: 01-24-2024 take 1 tablet by mouth every six hours as needed for nausea and vomiting and nausea and nausea promethazine (Phenergan) 12.5 MG tablet Indications: Nausea Take 1 tablet (12.5 mg) by mouth every 6 (six) hours if needed for nausea or vomiting for up to 30 doses Take 1 tablet by mouth every 6 hours as needed for nausea. 30 tablet 2 11/24/2023 01/24/2024 Discontinued rimegepant 75 mg disintegrating oral tablet (2 sources) Start: 08-18-2023 take 1 tablet by mouth once daily Rimegepant (Nurtec Odt) 75 mg tablet,disintegrating Active 75 MG PO Daily August 18, 2023 12:00am Nurtec 75 MG 1 t ablet on the tongue and allow to dissolve Orally Active 24 hr venlafaxine 37.5 mg extended release oral capsule (20 sources) Serotonin and Norepinephrine Reuptake Inhibitor Start: 08-31-2023 take 1 capsule by mouth once daily venlafaxine XR (Effexor XR) 37.5 MG 24 hr capsule Take 37.5 mg by mouth Daily 08/31/2023 Active Start: 08-18-2023 take 75 mg by mouth once daily Venlafaxine Active 75 MG PO Daily August 18, 2023 12:00am take 1 capsule by [facility] every twenty-four hours in the morning venlafaxine [...] a day for 6 days May, Not-Taking/PRN nitrofurantoin, macrocrystals 25 mg / nitrofurantoin, monohydrate 75 mg oral capsule (2 sources) Nitrofuran Antibacterial Start: 4 End: 4 take 1 capsule by mouth in the morning nitrofurantoin, macrocrystal-monohydr ate, (Macrobid) 100 MG capsule Indications: Urinary tract infection without hematuria, site unspecified Take 1 capsule (100 mg) by mouth in the morning and 1 capsule (100 mg) before bedtime. Do all this for 7 days. 14 capsule 12/05/2023 12/25/2023 Discontinued (Therapy completed) oseltamivir 75 mg oral capsule (2 sources) Neuraminidase Inhibitor Start: 3 take 1 capsule by mouth every twelve hours Tamiflu 75 MG 1 capsule Orally Twice a day for 5 day(s) May, Not-Taking/PRN Problems Active Problems Problem Classification Problem Date Documented Da te Episodic/Chronic Abdominal pain (8 sources) Unspecified abdominal pain; 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: [Flank pain] Onset: 04-27-2022 Episodic Allergic reactions (2 sources) Food anaphylaxis; 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: [Anaphylactic reaction due to unspecified food, initial encounter] 04-12-2023 Episodic Chronic obstructive pulmonary disease and bronchiectasis (1 source) Bronchitis, not specified as acute or chronic Episodic Diabetes mellitus without complication (2 sources) Abnormal glucose tolerance test; 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: [Other abnormal glucose] 03-21-2024 Episodic Diabetes or abnormal glucose tolerance complicating ; childbirth; or the puerperium (8 sources) Gestational diabetes mellitus; 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: [Gestational diabetes mellitus in , unspecified control] Onset: 03-21-2024 03-21-2024 Episodic Genitourinary symptoms and ill-defined conditions (1 source) Personal history of urinary (tract) infections; 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: [PERS HX URINARY TRACT INFECTIONS] Onset: 04-29-2022 Episodic Immunizations and screening for infectious disease (4 sources) Contact with and (suspected) exposure to [...] 03-09-2022 Episodic Other aftercare (1 source) Other rodent exterminator (current) drug therapy; 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: [OTH ASSISTED CURRENT DRUG THERAPY] Onset: 04-29-2022 Episodic Other [...] , unspecified trimester] Onset: 02-08-2024 Episodic Other female genital disorders (2 sources) Vaginal discharge; 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: [Other specified noninflammatory disorders of vagina] 01-24-2024 Episodic Other gastrointestinal disorders (1 source) Diarrhea, [...] 02-15-2024 Chronic Other and delivery including normal (17 sources) Second trimester ; 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: [Encounter for supervision of normal , unspecified, second trimester] Onset: 04-03-2024 02-21-2024 Episodic Other screening for suspected conditions (not mental disorders or infectious disease) (6 sources) Patient encounter status; 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: [Encounter for [...] of ] 02-21-2024 Episodic Residual codes; unclassified (4 sources) Gestation period, 24 weeks; 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: [24 weeks gestation of ] 03-06-2024 Episodic Residual codes; unclassified (1 source) 21 weeks gestation of ; 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: [21 weeks gestation of ] Onset: 02-15-2024 Episodic Residual codes; unclassified (2 sources) Gestation period, 26 weeks; 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: [26 weeks gestation of ] 03-21-2024 Episodic Residual codes; unclassified (5 sources) Gestation period, 28 weeks; 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: [28 weeks gestation of ] Onset: 04-03-2024 04-03-2024 Episodic Residual codes; unclassified (2 sources) Gestation period, 18 weeks; 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: [18 weeks gestation of ] 01-24-2024 Episodic Substance-related disorders (1 source) Nicotine dependence, cigarettes, uncomplicated; 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: [NICOTINE DEPEND CIGARETTES UNCOMP] Onset: 04-29-2022 Chronic Unclassified (1 source) PERSONAL HISTORY OF COVID-19; 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: [PERSONAL HISTORY OF COVID-19] Onset: 04-29-2022 Unclassified (1 source) transport Onset: 02-08-2024 Urinary tract infections (9 sources) Acute cystitis; 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: [Acute cystitis with hematuria] Onset: 02-08-2024 03-06-2024 Episodic Past or Other Problems Problem Classification Problem Date Documented Da te Episodic/Chronic Other skin disorders (2 sources) Eruption; 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: [Rash and other nonspecific skin eruption] 01-03-2024 Episodic Unclassified (1 source) Suspected COVID-19 virus infection Z20.822 Results Test Name Value Interpretation Reference Range Facility RECURRENT VAGINITIS (HTRX)on 04-06-2024 ATOPOBIUM VAGINAE 0 [facility] ATOPOBIUM VAGINAE Not detected [facility] BVAB 2,3 (BACTERIAL VAGINOSIS ASSOCIATED BACTERIA 2, 3); MOBILUNCUS SPP 0 [facility] Healthcare BVAB 2,3 (BACTERIAL VAGINOSIS ASSOCIATED BACTERIA 2, 3); MOBILUNCUS SPP Not detected [facility] BRAD ALBICANS, PARAPSILOSIS, TROPICALIS 0 [facility] BRAD ALBICANS, PARAPSILOSIS, TROPICALIS Not detected [facility] BRAD GLABRATA 0 [facility]AD GLABRATA [facility]AD KRUSEI [facility] BR[facility] KRUSEI Not detected [facility] CHLAMYDIA TRACHOMATIS 0 [facility] CHLAMYDIA TRACHOMATIS Not detected [facility] GARDNERELLA VAGINALIS 0 [facility] GARDNERELLA VAGINALIS Not detected [facility] MEGASPHAERA (TYPES 1, 2) 0 [facility] MEGASPHAERA (TYPES 1, 2) Not detected [facility] MYCOPLASMA GENITALIUM 0 [facility] MYCOPLASMA GENITALIUM Not detected [facility] NEISSERIA GONORRHOEAE 0 [facility] NEISSERIA GONORRHOEAE Not detected N [facility] TRICHOMONAS VAGINALIS 0 [facility] TRICHOMONAS VAGINALIS Not detected [facility] Urinalysis macro (dipstick) panel (U)on 04-03-2024 Bilirubin, UA Negative Negative - 4(70) +++ mg/dL [facility] Blood, UA Negative Negative - 50 Slick/mcL [facility] Clarity, UA Cloudy [facility] re Color, UA Yellow [facility] Glucose, UA 1+ Negative - 1999(110) ++++ mg/dL [facility] Comment on above: 100mg/dL Interpretation and review of laboratory results Abnormal [facility] Ketones, UA Negative Negative - 160(16) ++++ mg/dL [facility] Leukocytes, UA Trace Negative - 500+++ Mira/mcL [facility] Nitrite, UA Negative Negative - Positive [facility] pH, UA 6 5 - 9 [facility] Protein, UA Negative Negative - 1999(20) ++++ mg/dL [facility] Spec Grav, UA 1.01 1 - 1.03 [facility] Urobilinogen, UA 0.2 0.2 - 12 mg/dL [facility] ALL CBC WITH AUTO DIFFon BASOPHILS ABSOLUTE AUTO 0 [facility] Basophils/100 WBC (Bld) 0.1 % Low 0.2 - 2.0 % [facility] Eosinophils/100 WBC (Bld) 0.5 % Low 0.9 - 7.0 % [facility] Erythrocyte distribution width (RBC) [Ratio] 13.9 % 11.0 - 15.0 % [facility] Hematocrit (Bld) [Volume fraction] 35.2 % Low 36.0 - 48.0 % [facility] Hemoglobin (Bld) [Mass/Vol] 11.5 g/dL Low 12.0 - 16.0 g/dL [facility] IMMATURE GRANULOCYTES ABS AUTO 0.05 High [facility] Immature granulocytes/100 WBC (Bld) 0.6 % High 0.0 - 0.5 % [facility] Interpretation and review of laboratory results Abnormal [facility] LYMPHOCYTES ABSOLUTE AUTO 1.9 [facility] Lymphocytes/100 WBC (Bld) 22.9 % 20.5 - 60.0 % [facility] MCH (RBC) [Entitic mass] 30.5 pg 26.7 - 34.0 pg [facility] MCHC (RBC) [Mass/Vol] 32.7 g/dL 29.9 - 35.2 g/dL [facility] MCV (RBC) [Entitic vol] 93.4 fL 81.0 - 99.0 fL [facility] MONOCYTES ABSOLUTE AUTO 0.3 [facility] Monocytes/100 WBC (Bld) 3.3 % 1.7 - 12.0 % [facility] NEUTROPHILS ABSOLUTE AUTO 6.1 [facility] Neutrophils/100 WBC (Bld) 72.6 % 43.0 - 75.0 % [facility] Platelet mean volume (Bld) [Entitic vol] 10.5 fL 9.5 - 13.5 fL [facility] TBH EO # 0 [facility]T [address] [facility] e TB RBC 3.77 Low [facility] WBC 8.4 [facility] Urinalysis macro (dipstick) panel (U)on 03-21-2024 Bilirubin, UA Negative Negative - 4(70) +++ mg/dL [facility] Blood, UA Negative Negative - 50 Slick/mcL [facility] Clarity, UA Cloudy [facility] re Color, UA Yellow [facility] e Glucose, UA Positive Negative - 1999(110) ++++ mg/dL [facility] Comment on above: 500 mg Interpretation and review of laboratory results Abnormal [facility] Ketones, UA Negative Negative - 160(16) ++++ mg/dL [facility] Leukocytes, UA Negative Negative - 500+++ Mira/mcL [facility] Nitrite, UA Negative Negative - Positive [facility] pH, UA 6.5 5 - 9 [facility] e Protein, UA Negative Negative - 1999(20) ++++ mg/dL [facility] Spec Grav, UA 1.025 1 - 1.03 [facility] Urobilinogen, UA 0.2 0.2 - 12 mg/dL [facility] macro (dipstick) panel (U)on 03-11-2024 Bilirubin, UA Negative Negative - 4(70) +++ mg/dL [facility] Blood, UA Positive Negative - 50 Slick/mcL [facility] Comment on above: large Clarity, UA Clear [facility] re Color, UA Straw [facility] Glucose, UA Negative Negative - 1999(110) ++++ mg/dL [facility] Interpretation and review of laboratory results Abnormal [facility] Ketones, UA Negative Negative - 160(16) ++++ mg/dL [facility] Leukocytes, UA Negative Negative - 500+++ Mira/mcL [facility] Nitrite, UA Negative Negative - Positive [facility] pH, UA 6 5 - 9 [facility] e Protein, UA Negative Negative - 1999(20) ++++ mg/dL [facility] Spec Grav, UA 1.02 1 - 1.03 [facility] Urobilinogen, UA 0.2 0.2 - 12 mg/dL [facility] TBH UA (CLEAN/CATCH) ARMED SECURITY GUARD/CHUY RO IF IND.on 03-06-2024 BILIRUBIN URINE COLOR INTERFERENCE Abnormal NEGATIVE N [facility] BLOOD URINE COLOR INTERFERENCE Abnormal NEGATIVE [facility] Clarity (U) CLEAR CLEAR [facility] re Color (U) DK. RED YELLOW [facility] GLUCOSE URINE UA COLOR INTERFERENCE Abnormal NEGAT CARMELITA mg/dL [facility] Interpretation and review of laboratory results Abnormal [facility] Ketones Ql (U) COLOR INTERFERENCE Abnormal NEGATIV E mg/dL [facility] Leukocyte esterase Test strip Ql (U) COLOR INTERFERENCE Abnormal NEGATIVE [facility] care NITRITE URINE COLOR INTERFERENCE Abnormal NEGATIVE [facility] PH URINE COLOR INTERFERENCE Abnormal 5.0 - 9.0 [facility]althcare PROTEIN URINE COLOR INTERFERENCE Abnormal NEG/TRAC E mg/dL [facility] SPECIFIC GRAVITY URINE 1.020 1.005 - 1.025 [facility] URINE MICROSCOPIC INDICATED YES [facility] UROBILINOGEN URINE COLOR INTERFERENCE Abnormal 0.2 - 1.0 EU/dL [facility] Urinalysis macro (dipstick) panel (U)on 03-06-2024 Bilirubin, UA Positive Negative - 4(70) +++ mg/dL [facility] Blood, UA Positive Negative - 50 Slick/mcL [facility] Comment on above: large Clarity, UA Clear [facility] re Color, UA Dark [facility] Glucose, UA Negative Negative - 1999(110) ++++ mg/dL [facility] Interpretation and review of laboratory results Abnormal [facility] Ketones, UA Negative Negative - 160(16) ++++ mg/dL [facility] Leukocytes, UA Trace Negative - 500+++ Mira/mcL [facility] Nitrite, UA Positive Negative - Positive [facility] pH, UA 6 5 - 9 [facility] Protein, UA Positive Negative - 1999(20) ++++ mg/dL [facility] Comment on above: 100 Spec Grav, UA 1.02 1 - 1.03 [facility] Urobilinogen, UA 1.0 0.2 - 12 mg/dL [facility] Urinalysis macro (dipstick) panel (U)on 02-21-2024 Bilirubin, UA Negative Negative - 4(70) +++ mg/dL [facility] Blood, UA Negative Negative - 50 Slick/mcL [facility] Clarity, UA Clear [facility] re Color, UA Yellow [facility] e Glucose, UA Negative Negative - 1999(110) ++++ mg/dL [facility] Interpretation and review of laboratory results Abnormal [facility] Ketones, UA Negative Negative - 160(16) ++++ mg/dL [facility] Leukocytes, UA Trace Negative - 500+++ Mira/mcL [facility] Nitrite, UA Negative Negative - Positive [facility] pH, UA 5.5 5 - 9 [facility] Protein, UA Negative Negative - 1999(20) ++++ mg/dL [facility] Spec Grav, UA 1.01 1 - 1.03 [facility] Urobilinogen, UA 0.2 0.2 - 12 mg/dL [facility] CBC AND AUTO DIFFon 02-09-20 ABSOLUTE BASOPHIL 0.0 X10E9/L Normal 0.0-0.2 [facility] Comment on above: Performed By: #### 3 2133-1, CMP, CBCA #### [facility] ([id number]) [address], [address] [place] [address] ABSOLUTE NEUTROPHIL 5.4 X10E9/L Normal 1.5-6.6 [facility] Comment on above: Performed By: #### 3 2132-1, CMP, CBCA #### [facility] ([id number]) [address], [address] [place] [address] Basophils/100 WBC (Bld) 0.2 % Normal [facility] Comment on above: Performed By: #### 3 2132-1, CMP, CBCA #### [facility] ([id number]) [address], [address] [place] [address] Eosinophils (Bld) [#/Vol] 0.1 10*3/uL Normal 0.0-0.4 [facility] Comment on above: Performed By: #### 3 2132-1, CMP, CBCA #### [facility] ([id number]) [address], [address] [place] [address] Eosinophils/100 WBC (Bld) 0.9 % Normal [facility] Comment on above: Performed By: #### 3 2132-1, CMP, CBCA #### [facility] ([id number]) [address], [address] [place] [address] Erythrocyte distribution width (RBC) [Ratio] 14.3 % Normal 11.5-15.0 [facility] Comment on above: Performed By: #### 3 2132-1, CMP, CBCA #### [facility] ([id number]) [address], [address] [place] [address] Hematocrit (Bld) [Volume fraction] 30.3 % Low 35-47 [facility] Comment on above: Performed By: #### 3 2132-1, CMP, CBCA #### [facility] ([id number]) [address], [address] [place] [address] Hemoglobin (Bld) [Mass/Vol] 10.3 g/dL Low 11.7-15.5 [facility] Comment on above: Performed By: #### 3 2133-1, CMP, CBCA #### [facility] ([id number]) [address], [address] [place] [address] Lymphocytes (Bld) [#/Vol] 1.7 10*3/uL Normal 1.0-3.5 [facility] Comment on above: Performed By: #### 3 2132-1, CMP, CBCA #### [facility] ([id number]) [address], [facility] [address] [place] [address] Lymphocytes/100 WBC (Bld) 22.0 % Normal [facility] Comment on above: Performed By: #### 3 2132-1, CMP, CBCA #### [facility] ([id number]) [address], [facility] [address] [place] [address] MCH (RBC) [Entitic mass] 31.3 pg Normal 27-34 [facility] Comment on above: Performed By: #### 3 2132-1, CMP, CBCA #### [facility] ([id number]) [address], [address] [place] [address] MCHC (RBC) [Mass/Vol] 34.0 g/dL Normal 32-36 [facility] Comment on above: Performed By: #### 3 2132-1, CMP, CBCA #### [facility] ([id number]) [address], [facility] [address] [place] [address] MCV (RBC) [Entitic vol] 92 fL Normal 80-100 [facility] Comment on above: Performed By: #### 3 2132-1, CMP, CBCA #### [facility] ([id number]) [address] [address] [place] [address] Monocytes (Bld) [#/Vol] 0.5 10*3/uL Normal 0-0.9 [facility] Comment on above: Performed By: #### 3 2132-1, CMP, CBCA #### [facility] ([id number]) [address], [address] [place] [address] Monocytes/100 WBC (Bld) 7.0 % Normal [facility] Comment on above: Performed By: #### 3 2132-1, CMP, CBCA #### [facility] ([id number]) [address], [address] [place] [address] Neutrophils/100 WBC (Bld) 69.9 % Normal [facility] Comment on above: Performed By: #### 3 2132-1, CMP, CBCA #### [facility] ([id number]) [address], [address] [place] [address] Platelet mean volume (Bld) [Entitic vol] 8.8 fL Normal 7-12 [facility] Comment on above: Performed By: #### 3 2132-1, CMP, CBCA #### [facility] ([id number]) [address], [address] [place] [address] Platelets (Bld) [#/Vol] 259 10*3/uL Normal 150-450 [facility] Comment on above: Performed By: #### 3 2132-1, CMP, CBCA #### [facility] ([id number]) [address], [address] [place] [address] RBC COUNT 3.29 X10E12/L Low 3.80-5.20 [facility] Comment on above: Performed By: #### 3 2132-1, CMP, CBCA #### [facility] ([id number]) [address], [address] [place] [address] WBC (Bld) [#/Vol] 7.7 10*3/uL Normal 4.0-11.0 [facility] Comment on above: Performed By: #### 3 2132-1, CMP, CBCA #### [facility] ([id number]) [address], [address] [place] [address] COMPREHENSIVE METABOLIC PANE Paco 02-09-2024 Albumin [Mass/Vol] 2.9 g/dL Low 3.2-5.3 [facility] Comment on above: Performed By: #### 3 2132-1, CMP, CBCA #### [facility] ([id number]) [address], [address] [place], [place] [address] ALP [Catalytic activity/Vol] 118 U/L Normal 39-130 [facility] Comment on above: Performed By: #### 3 2132-1, CMP, CBCA #### [facility] ([id number]) [address], [address] [place], [place] [address] ALT [Catalytic activity/Vol] 6 U/L Normal 0-31 [facility] Comment on above: Performed By: #### 3 2132-1, CMP, CBCA #### [facility] ([id number]) [address], [address] [place] [address] Anion gap [Moles/Vol] 10 mmol/L Normal 5-15 [facility] Comment on above: Performed By: #### 3 2132-1, CMP, CBCA #### [facility] ([id number]) [address], [address] [place], [place] [address] AST [Catalytic activity/Vol] 9 U/L Normal 0-41 [facility] Comment on above: Performed By: #### 3 2132-1, CMP, CBCA #### [facility] ([id number]) [address], [address] [place] [address] Bilirubin [Mass/Vol] 0.4 mg/dL Normal 0.3-1.2 [facility] Comment on above: Performed By: #### 3 2132-1, CMP, CBCA #### [facility] ([id number]) [address], [address] [place] [address] Calcium [Mass/Vol] 8.5 mg/dL Normal 8.5-10.5 [facility] Comment on above: Performed By: #### 3 2132-1, IZAIAH, CBCA #### [facility] ([id number]) [address], [address] [place] [address] Chloride [Moles/Vol] 105 mmol/L Normal 98-109 [facility] Comment on above: Performed By: #### 3 2132-1, CMP, CBCA #### [facility] ([id number]) [address], [address] [place] [address] CO2 [Moles/Vol] 22 mmol/L Normal 22-32 [facility] Comment on above: Performed By: #### 3 2132-1, CMP, CBCA #### [facility] ([id number]) [address], [address] [place] [address] Creatinine [Mass/Vol] 0.45 mg/dL Normal 0.40-1.00 [facility] Comment on above: Result Comment: METH OD TRACEABLE TO IDMS STANDARD Performed By: #### 3 2132-, IZAIAH, CBCA #### [facility] ([id number]) [address], [address] [place] [address] eGFR (CKD-EPI) NON-RACE DEPENDENT >90 Normal >59 [facility] Comment on above: Result Comment: Reported eGFR is based on the CKD-EPI 2020 equation that does not use a race coefficient. Performed By: #### 3 2132-1, CMP, CBCA #### [facility] ([id number]) [address], [address] [place] [address] Glucose [Mass/Vol] 84 mg/dL Normal 65-99 [facility] Comment on above: Performed By: #### 3 2132-, CMP, CBCA #### [facility] ([id number]) [address], [address] [place] [address] Potassium [Moles/Vol] 3.7 mmol/L Normal 3.5-5.0 [facility] Comment on above: Performed By: #### 3 2132-1, CMP, CBCA #### [facility] ([id number]) [address], [address] [place] [address] Protein [Mass/Vol] 6.0 g/dL Normal 6.0-8.0 [facility] Comment on above: Performed By: #### 3 2132-1, CMP, CBCA #### [facility] ([id number]) [address], [address] [place] [address] Sodium [Moles/Vol] 137 mmol/L Normal 134-146 [facility] Comment on above: Performed By: #### 3 2132-1, CMP, CBCA #### [facility] ([id number]) [address], [address] [place] [address] Urea nitrogen [Mass/Vol] 5 mg/dL Normal 5-23 [facility] Comment on above: Performed By: #### 3 2132-1, CMP, CBCA #### [facility] ([id number]) [address], [address] [place] [address] MAGNESIUMon 02-09-2024 Magnesium [Mass/Vol] 1.6 mg/dL Low 1.8-2.6 [facility] Comment on above: Performed By: #### 3 2132-1, CMP, CBCA #### [facility] ([id number]) [address], [address] [place] [address] PHOSPHORUSon 02-09-2024 Phosphate [Mass/Vol] 4.5 mg/dL Normal 2.4-4.9 [facility] Comment on above: Performed By: #### 3 2132-1, CMP, CBCA #### [facility] ([id number]) [address], [address] [place] [address] US RETROPERITONEAL LIMITEDon 02-09-2024 US RETROPERITONEAL LIMITED [...] Andrade MD on 02/09/2024 10:14 AM Normal [facility] BLOOD CULTUREon 02-08-2024 Bacteria identified Aer cx Nom (Bld) SPECIMEN NOTES SUBOPTIMAL VOLUME OF BLOOD COLLECTED, RESULTS MAY BE AFFECTED. CULTURE RESULTS NO GROWTH 5 DAYS Normal [facility] Comment on above: Performed By: #### 3 2132-05, CMP, CBCA #### [facility] ([id number]) [address], [address] [place] [address] Bacteria identified Aer cx Nom (Bld) SPECIMEN NOTES SUBOPTIMAL VOLUME OF BLOOD COLLECTED, RESULTS MAY BE AFFECTED. CULTURE RESULTS NO GROWTH 5 DAYS Normal [facility] Comment on above: Performed By: #### 1 7928-3 #### [facility] ([id number]) [address], [address] [place] [address] CBC AND AUTO DIFFon 02-08-20 24 ABSOLUTE BASOPHIL 0.0 X10E9/L Normal 0.0-0.2 [facility] Comment on above: Performed By: #### 3 2132-, CMP, CBCA #### [facility] ([id number]) [address], [address] [place] [address] ABSOLUTE NEUTROPHIL 9.5 X10E9/L High 1.5-6.6 [facility] Comment on above: Performed By: #### 3 2132-1, CMP, CBCA #### [facility] ([id number]) [address], [address] [place] [address] Basophils/100 WBC (Bld) 0.0 % Normal [facility] Comment on above: Performed By: #### 3 2132-1, CMP, CBCA #### [facility] ([id number]) [address] [address] [place] [address] Eosinophils (Bld) [#/Vol] 0.0 10*3/uL Normal 0.0-0.4 [facility] Comment on above: Performed By: #### 3 2132-1, CMP, CBCA #### [facility] ([id number]) [address], [address] [place] [address] Eosinophils/100 WBC (Bld) 0.0 % Normal [facility] Comment on above: Performed By: #### 3 1, CMP, CBCA #### [facility] ([id number]) [address], [facility] [address] [place] [address] Erythrocyte distribution width (RBC) [Ratio] 14.5 % Normal 11.5-15.0 [facility] Comment on above: Performed By: #### 3 2132-1, CMP, CBCA #### [facility] ([id number]) [address], [facility] [address] [place] [address] Hematocrit (Bld) [Volume fraction] 31.3 % Low 35-47 [facility] Comment on above: Performed By: #### 3 2132-1, CMP, CBCA #### [facility] ([id number]) [address], [address] [place] [address] Hemoglobin (Bld) [Mass/Vol] 10.6 g/dL Low 11.7-15.5 [facility] Comment on above: Performed By: #### 3 2132-1, CMP, CBCA #### [facility] ([id number]) [address], [address] [place] [address] Lymphocytes (Bld) [#/Vol] 1.1 10*3/uL Normal 1.0-3.5 [facility] Comment on above: Performed By: #### 3 2132-1, CMP, CBCA #### [facility] ([id number]) [address], [facility] [address] [place] [address] Lymphocytes/100 WBC (Bld) 9.4 % Normal [facility] Comment on above: Performed By: #### 3 2132-1, CMP, CBCA #### [facility] ([id number]) [address], [address] [place] [address] MCH (RBC) [Entitic mass] 30.8 pg Normal 27-34 [facility] Comment on above: Performed By: #### 3 2132-1, CMP, CBCA #### [facility] ([id number]) [address], [address] [place] [address] MCHC (RBC) [Mass/Vol] 33.9 g/dL Normal 32-36 [facility] Comment on above: Performed By: #### 3 2132-1, CMP, CBCA #### [facility] ([id number]) [address], [address] [place] [address] MCV (RBC) [Entitic vol] 91 fL Normal 80-100 [facility] Comment on above: Performed By: #### 3 2132-1, CMP, CBCA #### [facility] ([id number]) [address], [address] [place] [address] Monocytes (Bld) [#/Vol] 0.9 10*3/uL Normal 0-0.9 [facility] Comment on above: Performed By: #### 3 2132-1, CMP, CBCA #### [facility] ([id number]) [address], [address] [place] [address] Monocytes/100 WBC (Bld) 8.2 % Normal [facility] Comment on above: Performed By: #### 3 2132-1, CMP, CBCA #### [facility] ([id number]) [address], [address] [place] [address] Neutrophils/100 WBC (Bld) 82.4 % Normal [facility] Comment on above: Performed By: #### 3 2132-1, CMP, CBCA #### [facility] ([id number]) [address], [address] [place] [address] Platelet mean volume (Bld) [Entitic vol] 8.5 fL Normal 7-12 [facility] Comment on above: Performed By: #### 3 2132-1, CMP, CBCA #### [facility] ([id number]) [address] [place] [address] Platelets (Bld) [#/Vol] 246 10*3/uL Normal 150-450 [facility] Comment on above: Performed By: #### 3 2132-1, CMP, CBCA #### [facility] ([id number]) [address] [place] [address] RBC COUNT 3.44 X10E12/L Low 3.80-5.20 [facility] Comment on above: Performed By: #### 3 2132-1, CMP, CBCA #### [facility] ([id number]) [address], [address] [place] [address] WBC (Bld) [#/Vol] 11.5 10*3/uL High 4.0-11.0 [facility] Comment on above: Performed By: #### 3 3-1, CMP, CBCA #### [facility] ([id number]) [address], [address] [place] [address] [facility] ([place], [place]) 02-08-2024 Albumin [Mass/Vol] 3.1 g/dL Low 3.2-5.3 [facility] Comment on above: Performed By: #### 3 2132-1, CMP, CBCA #### [facility] ([id number]) [address] [place] [address] ALP [Catalytic activity/Vol] 100 U/L Normal 39-130 [facility] Comment on above: Performed By: #### 3 2132-1, CMP, CBCA #### [facility] ([id number]) [address], [address] [place] [address] ALT [Catalytic activity/Vol] 7 U/L Normal 0-31 [facility] Comment on above: Performed By: #### 3 2132-1, CMP, CBCA #### [facility] ([id number]) [address], [address] [place] [address] Anion gap [Moles/Vol] 12 mmol/L Normal 5-15 [facility] Comment on above: Performed By: #### 3 2132-1, CMP, CBCA #### [facility] ([id number]) [address], [address] [place] [address] AST [Catalytic activity/Vol] 8 U/L Normal 0-41 [facility] Comment on above: Performed By: #### 3 2132-1, CMP, CBCA #### [facility] ([id number]) [address], [address] [place] [address] Bilirubin [Mass/Vol] 0.5 mg/dL Normal 0.3-1.2 [facility] Comment on above: Performed By: #### 3 2132-1, CMP, CBCA #### [facility] ([id number]) [address], [address] [place] [address] Calcium [Mass/Vol] 8.3 mg/dL Low 8.5-10.5 [facility] Comment on above: Performed By: #### 3 2132-1, CMP, CBCA #### [facility] ([id number]) [address], [address] [place] [address] Chloride [Moles/Vol] 104 mmol/L Normal 98-109 [facility] Comment on above: Performed By: #### 3 2132-1, CMP, CBCA #### [facility] ([id number]) [address], [facility] [address] [place] [address] CO2 [Moles/Vol] 20 mmol/L Low 22-32 [facility] Comment on above: Performed By: #### 3 2132-1, CMP, CBCA #### [facility] ([id number]) [address], [address] [place] [address] Creatinine [Mass/Vol] 0.53 mg/dL Normal 0.40-1.00 [facility] Comment on above: Result Comment: METH OD TRACEABLE TO IDMS STANDARD Performed By: #### 3 1, CMP, CBCA #### [facility] ([id number]) [address] [place] [address] eGFR (CKD-EPI) NON-RACE DEPENDENT >90 Normal >59 [facility] Comment on above: Result Comment: Reported eGFR is based on the CKD-EPI 2020 equation that does not use a race coefficient. Performed By: #### 3 2132-1, CMP, CBCA #### [facility] ([id number]) [address], [address] [place] [address] Glucose [Mass/Vol] 115 mg/dL High 65-99 [facility] Comment on above: Performed By: #### 3 2133-1, CMP, CBCA #### [facility] ([id number]) [address], [address] [place] [address] Potassium [Moles/Vol] 3.6 mmol/L Normal 3.5-5.0 [facility] Comment on above: Performed By: #### 3 2132-1, CMP, CBCA #### [facility] ([id number]) [address], [address] [place] [address] Protein [Mass/Vol] 6.1 g/dL Normal 6.0-8.0 [facility] Comment on above: Performed By: #### 3 2132-1, CMP, CBCA #### [facility] ([id number]) [address], [address] [place] [address] Sodium [Moles/Vol] 136 mmol/L Normal 134-146 [facility] Comment on above: Performed By: #### 3 2132-1, CMP, CBCA #### [facility] ([id number]) [address], [address] [place] [address] Urea nitrogen [Mass/Vol] 3 mg/dL Low 5-23 [facility] Comment on above: Performed By: #### 3 2132-1, CMP, CBCA #### [facility] ([id number]) [address], [address] [place] [address] DRUG SCREEN, URINEon 024 AMPHETAMINE/METHAMP Negative Normal NEG [facility] Comment on above: Result Comment: AMPH /METH screening cut off = 1000 ng/mL Performed By: #### D GUILLEN #### [facility] ([id number]) [address], [address] [place] [address] BARBITURATES Negative Normal NEG [facility] Comment on above: Result Comment: Megan iturates screening cut off value = 200 ng/mL Performed By: #### D GUILLEN #### [facility] ([id number]) [address], [address] [place] [address] BENZODIAZEPINES Negative Normal NEG [facility] Comment on above: Result Comment: Giorgio odiazepines screening cut off value = 200 ng/mL Performed By: #### D GUILLEN #### [facility] ([id number]) [address], [address] [place] [address] CANNABINOIDS Negative Normal NEG [facility] Comment on above: Result Comment: Elsie abinoids/THC screening cut off value = 50 ng/mL Performed By: #### D GUILLEN #### [facility] ([id number]) [address], [address] [place] [address] COCAINE METABOLITE Negative Normal NEG [facility] Comment on above: Result Comment: Coca ine screening cut off value = 300 ng/mL Performed By: #### D GUILLEN #### [facility] ([id number]) [address] [place] [address] ECSTASY Negative Normal [facility] Comment on above: Result Comment: Ecst asy screening cut off value = 500 ng/mL This report is intended for use in clinical monitoring or management of patients. Performed By: #### D GUILLEN #### [facility] ([id number]) [address], [address] [place] [address] METHADONE Negative Normal NEG [facility] Comment on above: Result Comment: Meth adone screening cut off value = 300 ng/mL. Performed By: #### D GUILLEN #### [facility] ([id number]) [address], [address] [place] [address] OPIATES Negative Normal NEG [facility] Comment on above: Result Comment: Opia joey screening cut off value = 300 ng/mL NOTE: This test is used for the detection of codeine, hydrocodone (>1000 ng/mL), morphine and hydromorphone (>900 ng/mL) in urine. Performed By: #### D GUILLEN #### [facility] ([id number]) [address], [address] [place] [address] OXYCODONE Negative Normal NEG [facility] Comment on above: Result Comment: Oxyc odone screening cut off value = 300 ng/mL NOTE: This test is used for the detection of oxycodone and oxymorphone in urine. Performed By: #### D GUILLEN #### [facility] ([id number]) [address] [place] [address] PHENCYCLIDINE Negative Normal NEG [facility] Comment on above: Result Comment: Phen cyclidine screening cut off value = 25 ng/mL Performed By: #### D GUILLEN #### [facility] ([id number]) [address], [address] [place] [address] Glucose Glucometer (BldC) [M ass/Vol]on 02-08-2024 Glucose [Mass/Vol] 107 mg/dL High 65-99 [facility] Lactate (P melvin) [Moles/Vol]o n 02-08-2024 LACTATE W/REFLEX 1.0 mmol/L Normal 0.4-2.0 [facility] Comment on above: Result Comment: Result did not trigger repeat Lactate, re-order if needed. Performed By: #### 7 5241-0, 31049-9 #### [facility] ([id number]) [address], [address] [place] [address] LACTATE W/REFLEX 0.8 mmol/L Normal 0.4-2.0 [facility] Comment on above: Result Comment: Result did not trigger repeat Lactate, re-order if needed. Performed By: #### 3 2133-1, CMP, CBCA #### [facility] ([id number]) [address] [place] [address] Procalcitonin IA [Mass/Vol]o n 02-08-2024 PROCALCITONIN 0.74 ng/mL High <0.05 [facility] Comment on above: Result Comment: NOTE <0.50 ng/mL - Low risk of severe sepsis and/or septic shock. <2.00 ng/mL - Recommend retesting within 6-24 hours. >2.00 ng/mL - High risk of sepsis and/or septic shock. Performed By: #### 7 5241-0, 69475-1 #### [facility] ([id number]) [address], [address] [place] [address] URINALYSISon 02-08-2024 Bilirubin Ql (U) Negative Normal NEG [facility] Comment on above: Performed By: #### U A #### [facility] ([id number]) [address], [address] [place] [address] BLOOD/HGB Small Abnormal NEG [facility] Comment on above: Performed By: #### U A #### [facility] ([id number]) [address], [address] [place] [address] Color (U) YELLOW Normal YELLOW [facility] Comment on above: Performed By: #### U A #### [facility] ([id number]) [address], [address] [place] [address] Glucose Ql (U) Negative Normal NEG [facility] Comment on above: Performed By: #### U A #### [facility] ([id number]) [address], [address] [place] [address] Ketones Ql (U) 20 mg/dL Abnormal NEG [facility] Comment on above: Performed By: #### U A #### [facility] ([id number]) [address], [address] [place] [address] Leukocyte esterase Test strip Ql (U) Negative Normal NEG [facility] Comment on above: Performed By: #### U A #### [facility] ([id number]) [address], [address] [place] [address] MUCOUS PRESENT Abnormal NONE [facility] Comment on above: Performed By: #### U A #### [facility] ([id number]) [address] [address] [place] [address] Nitrite Ql (U) Negative Normal NEG [facility] Comment on above: Performed By: #### U A #### [facility] ([id number]) [address] [facility] [address] [place] [address] pH (U) 8.0 [pH] Normal 5.0-8.5 [facility] Comment on above: Performed By: #### U A #### [facility] ([id number]) [address] [facility] [address] [place] [address] Protein Ql (U) Trace Abnormal NEG [facility] Comment on above: Performed By: #### U A #### [facility] ([id number]) [address] [facility], [address] [place] [address] R.B.CELLS 16 /hpf High 0-5 [facility] Comment on above: Performed By: #### U A #### [facility] ([id number]) [address] [facility] [address] [place] [address] Specific gravity (U) [Rel density] 1.012 Normal 1.003-1.035 [facility] Comment on above: Performed By: #### U A #### [facility] ([id number]) [address] [facility] [address] [place] [address] SQUAMOUS EPITHELIUM 1 /hpf Normal 0-5 [facility] Comment on above: Performed By: #### U A #### [facility] ([id number]) [address] [facility], [address] [place] [address] TRANSITIONAL EPITH <1 High 0 [facility] Comment on above: Performed By: #### U A #### [facility] ([id number]) [address] [facility], [address] [place] [address] TURBIDITY CLEAR Normal CLEAR [facility] Comment on above: Performed By: #### U A #### [facility] ([id number]) [address], [address] [address] Urobilinogen Qn (U) 2 {Blanca'U}/dL High <1.1 [facility] Comment on above: Performed By: #### U A #### [facility] ([id number]) [address], [address] [place] [id number] W.B.CELLS 2 /hpf Normal 0-5 [facility] Comment on above: Performed By: #### U A #### [facility] ([id number]) [address], [address] [address] URINE CULTUREon 02-08-2024 Bacteria identified Cx Nom (U) CULTURE RESULTS NO GROWTH AT <1000 CFU/mL Normal [facility] Comment on above: Performed By: #### 3 3-1, CMP, CBCA #### [facility] ([id number]) [address], [address] [address] XR CHEST 1 VWon 02-08-2024 XR CHEST [...] Rubi MD on 02/08/2024 9:35 AM Normal [facility] URETHRITIS/DISCHARGE PLUS VA GINITIS (HTRX)on 01-27-2024 ATOPOBIUM VAGINAE 0.000 [facility] ATOPOBIUM VAGINAE Not detected [facility] BVAB 2,3 (BACTERIAL VAGINOSIS ASSOCIATED BACTERIA 2, 3); MOBILUNCUS SPP 0.000 [facility] BVAB 2,3 (BACTERIAL VAGINOSIS ASSOCIATED BACTERIA 2, 3); MOBILUNCUS SPP Not detected [facility] BRAD ALBICANS, PARAPSILOSIS, TROPICALIS 0.000 [facility] BRAD ALBICANS, PARAPSILOSIS, TROPICALIS Not detected [facility] BRAD GLABRATA 0.000 [facility] BRAD GLABRATA Not detected [facility] BRAD KRUSEI 0.000 [facility] BRAD KRUSEI Not detected [facility] CHLAMYDIA TRACHOMATIS 0.000 [facility] CHLAMYDIA TRACHOMATIS Not detected [facility] GARDNERELLA VAGINALIS 0.000 [facility] GARDNERELLA VAGINALIS Not detected [facility] MEGASPHAERA (TYPES 1, 2) 0.000 [facility] MEGASPHAERA (TYPES 1, 2) Not detected [facility] MYCOPLASMA GENITALIUM 0.000 [facility] MYCOPLASMA GENITALIUM Not detected [facility] NEISSERIA GONORRHOEAE 0.000 [facility] NEISSERIA GONORRHOEAE Not detected [facility] TRICHOMONAS VAGINALIS 0.000 [facility] TRICHOMONAS VAGINALIS Not detected [facility] AFP, SERUM, OPEN SPINA BIFID Aon 01-26-2024 AFP MOM 1.08 . [facility] AFP VALUE 35.9 ng/mL . [facility] COMMENT: Comment . [facility] Comment on above: Nette Holley , Ph.D., [facility] Director References: Available Upon Request. Multiples Of Median Cutoffs For AFP Elevations Rao 2.5 Black 2.8 IDD 2.0 Twins 4.5 Abbreviation Definitions IDD - Insulin Dep Diabetes OSBR - Open Spina Bifida Risk For further inquiries contact [employer] [facility] at [phone]. This test was developed and its performance characteristics determined by [employer]. It has not been cleared or approved by the Food and Drug Administration. Performed at: [facility] [address], [place] [id number] Ordnance Engineer: Ashley Duggan [facility], Phone: [phone] GEST. AGE ON COLLECTION DATE 17.9 . weeks [facility] GESTAT. AGE BASED ON As provided . [facility] Comment on above: Recalculations are n ot recommended when gestational dating by LMP and ultrasound are within 10 days. INSULIN DEP DIABETES No . [facility] INTERPRETATION Comment . [facility] Comment on above: Interpretation: Scre en Negative This result is screen negative for OSB. The AFP MoM calculated is based on the gestational age provided. MS-AFP can identify up to 80% of open neural tube defects. Closed neural tube defects and some open defects may not be detected by this test. This test does not screen for Down Syndrome or Trisomy 18. If screening for Down Syndrome or Trisomy 18 is desired, contact [facility] [employer] to discuss available options. The [employer] recommends amniocentesis be offered to women age 35 and older. [age] [facility] MULTIPLE GESTATION No . [facility]althcare OSBR RISK 1 [place] 9540 . [facility] Jeffery evans RACE Other . [facility] e RESULTS Report . [facility] TEST RESULTS: Negative . [facility] WEIGHT 225 . lbs [facility] PREGNANY N N ULTRASOUND [id number] [phone] N 1 Y 225 N N N N N White/ [facility]MIC BIOMEDICALcar e Urinalysis macro (dipstick) panel (U)on 01-24-2024 Bilirubin, UA Negative Negative - 4(70) +++ mg/dL [facility] Blood, UA Negative Negative - 50 Slick/mcL [facility] Clarity, UA Clear [facility] re Color, UA Yellow [facility] Glucose, UA Negative Negative - 1999(110) ++++ mg/dL [facility] Interpretation and review of laboratory results Abnormal [facility] Ketones, UA Negative Negative - 160(16) ++++ mg/dL [facility] Leukocytes, UA Trace Negative - 500+++ Mira/mcL [facility] Nitrite, UA Negative Negative - Positive [facility] pH, UA 6.5 5 - 9 [facility] e Protein, UA Negative Negative - 1999(20) ++++ mg/dL [facility] Spec Grav, UA 1.020 1 - 1.03 [facility] Urobilinogen, UA 1.0 0.2 - 12 mg/dL [facility] Urinalysis macro (dipstick) panel (U)on 01-03-2024 Bilirubin, UA Negative Negative - 4(70) +++ mg/dL [facility] Blood, UA Positive Negative - 50 Slick/mcL [facility] Comment on above: trace Clarity, UA Clear [facility] Healthnd re Color, UA Yellow [facility] Glucose, UA Negative Negative - 1999(110) ++++ mg/dL [facility] Interpretation and review of laboratory results Abnormal [facility] Ketones, UA Negative Negative - 160(16) ++++ mg/dL [facility] Leukocytes, UA Positive Negative - 500+++ Mira/mcL [facility] Comment on above: small Nitrite, UA Negative Negative - Positive [facility] pH, UA 6.0 5 - 9 [facility] Protein, UA Negative Negative - 1999(20) ++++ mg/dL [facility] Spec Grav, UA 1.020 1 - 1.03 [facility] Urobilinogen, UA 0.2 0.2 - 12 mg/dL [facility] No Panel InformationOrdered By: Sanaz Lockwood on 08-18-2023 Quick Strep (POC) [facility] COVID + FLU Quick Testingon 04-27-2023 SARS-CoV-2 (COVID-19) RNA J LUIS+probe Ql (Unsp spec) Negative [facility] [employer] Other COVID + FLU Quick Testing Negative [employer] [facility] [employer] Other Quick Strepon 04-27-2023 S. pyogenes Org specific cx Ql (Throat) Negative [employer] [facility] [employer] Other Quick Strep [employer] [facility] [employer] Other COVID/FLU/RSV RT-PCRon 05-10 SARS-CoV-2 (COVID-19) RNA J LUIS+probe Ql (Unsp spec) Negative [employer] Other COVID/FLU/RSV RT-PCR Positive [facility] [employer] Other COVID/FLU/RSV RT-PCR Negative [employer] Other CBC AUTO DIFFon 04-27-2022 BASO # 0.0 103/ul Normal 0.0-0.1 [facility] Comment on above: Performed By: #### C BC #### [facility] [address] [place] [address] Dr. Dee Humphrey Basophils/100 WBC (Bld) 0.2 % Normal 0.2-2.0 [facility] Comment on above: Performed By: #### C BC #### [facility] [address] [place] [address] Dr. Dee Humphrey EO # 0.1 103/ul Normal 0.0-0.7 [facility] Comment on above: Performed By: #### C BC #### [facility] [address] [place] [address] Dr. Dee Humphrey Eosinophils/100 WBC (Bld) 0.6 % Critically low 0.9-7.0 [facility] Comment on above: Performed By: #### C BC #### [facility] [address] [place] [address] Dr. Dee Humphrey Erythrocyte distribution width (RBC) [Ratio] 14.1 % Normal 11.0-15.0 [facility] Comment on above: Performed By: #### C BC #### [facility] [address] [place] [address] Dr. Dee Humphrey Hematocrit (Bld) [Volume fraction] 37.1 % Normal 36.0-48.0 [facility] Comment on above: Performed By: #### C BC #### [facility] [address] [place] [address] Dr. Dee Humphrey Hemoglobin (Bld) [Mass/Vol] 12.4 g/dL Normal 12.0-16.0 [facility] Comment on above: Performed By: #### C BC #### [facility] [address] [place] [address] Dr. Dee Humphrey IG # 0.06 10e3/ul Critically high 0.00-0.03 [facility] Comment on above: Performed By: #### C BC #### [facility] [address] [place] [address] Dr. Dee Humphrey IG % 0.5 % Normal 0.0-0.5 [facility] Comment on above: Performed By: #### C BC #### [facility] [address] [place] [address] Dr. Dee Humphrey LYMPH # 3.7 103/ul Normal 1.2-3.8 [facility] Comment on above: Performed By: #### C BC #### [facility] [address] [place] [address] Dr. Dee Humphrey Lymphocytes/100 WBC (Bld) 28.7 % Normal 20.5-60.0 [facility] Comment on above: Performed By: #### C BC #### [facility] [address] [place] [address] Dr. Dee Humphrey MANUAL DIFF REQ NO Normal [facility] Comment on above: Performed By: #### C BC #### [facility] [address] [place] [address] Dr. Dee Humphrey MCH (RBC) [Entitic mass] 30.2 pg Normal 26.7-34.0 [facility] Comment on above: Performed By: #### C BC #### [facility] [address] [place] [address] Dr. Dee Humphrey MCHC (RBC) [Mass/Vol] 33.4 g/dL Normal 29.9-35.2 [facility] Comment on above: Performed By: #### C BC #### [facility] [address] [place] [address] Dr. Dee Humphrey MCV (RBC) [Entitic vol] 90.5 fL Normal 81.0-99.0 [facility] Comment on above: Performed By: #### C BC #### [facility] [address] [place] [address] Dr. Dee Humphrey MONO # 0.7 103/ul Normal 0.3-0.8 [facility] Comment on above: Performed By: #### C BC #### [facility] [address] [place] [address] Dr. Dee Humphrey Monocytes/100 WBC (Bld) 5.0 % Normal 1.7-12.0 [facility] Comment on above: Performed By: #### C BC #### [facility] [address] [address] [address] Dee Humphrey NEUT # 8.5 103/ul Critically high 1.4-6.5 [facility] Comment on above: Performed By: #### C BC #### [facility] [id number] Dee Humphrey Neutrophils/100 WBC (Bld) 65.0 % Normal 43.0-75.0 [facility] Comment on above: Performed By: #### C BC #### [facility] [address] [address] [address] Dee Humphrey Platelet mean volume (Bld) [Entitic vol] 9.6 fL Normal 9.5-13.5 [facility] Comment on above: Performed By: #### C BC #### [facility] [address] [address] [address] Dee Humphrey PLT 317 103/ul Normal 150-450 [facility] Comment on above: Performed By: #### C BC #### [facility] [id number] Dee Humphrey RBC 4.10 106/ul Critically low 4.20-5.40 [facility] Comment on above: Performed By: #### C BC #### [facility] [id number] Dee Humphrey WBC 13.1 103/ul Critically high 4.0-11.0 [facility] Comment on above: Performed By: #### C BC #### [facility] [id number] Dee Humphrey [address] ABD/PELVIS WO CONon [...] ROCIO CHAU Date: 2022-04-27 20:24 Normal [facility] ER URINE PROFILEon 2 Bilirubin Ql (U) Negative Normal NEGATIVE [facility] Comment on above: Performed By: #### P REGU, ERUR #### [facility] [address] [place] [address] Dr. Dee Humphrey Clarity (U) CLEAR Normal CLEAR [facility] Comment on above: Performed By: #### P REGU, ERUR #### [facility] [address] [place] [address] Dr. Dee Humphrey Color (U) YELLOW Normal YELLOW [facility] Comment on above: Performed By: #### P REGU, ERUR #### [facility] [address] [place] [address] Dr. Dee STANFORD A micrscopic examination will be performed if indicated. Normal [facility] Comment on above: Performed By: #### P REGU, ERUR #### [facility] [address] [place] [address] Dr. Dee Humphrey Glucose Ql (U) Negative Normal NEGATIVE [facility] Comment on above: Performed By: #### P REGU, ERUR #### [facility] [address] [place] [address] Dr. Dee Humphrey Hemoglobin Ql (U) Negative Normal NEGATIVE [facility] Comment on above: Performed By: #### P REGU, ERUR #### [facility] [address] [place] [address] Dr. eDe Humphrey Ketones Ql (U) Negative Normal NEGATIVE [facility] Comment on above: Performed By: #### P REGU, ERUR #### [facility] [address] [place] [address] Dr. Dee Humphrey LEUKOCYTES Negative Normal NEGATIVE [facility] Comment on above: Performed By: #### P REGU, ERUR #### [facility] [address] [place] [address] Dr. Dee Humphrey Nitrite Ql (U) Negative Normal NEGATIVE [facility] Comment on above: Performed By: #### P REGU, ERUR #### [facility] [address] [place] [address] Dr. Dee Humphrey pH (U) 5.5 [pH] Normal 5-9 [facility] Comment on above: Performed By: #### P REGU, ERUR #### [facility] [address] [place] [address] Dr. Dee Humphrey SPEC GRAVITY >=1.030 Abnormal 1.005-<=1.02 5 [facility] Comment on above: Performed By: #### P REGU, ERUR #### [facility] [address] [place] [address] Dr. Dee Humphrey UA PROTEIN Negative Normal NEGATIVE/ TRACE [facility] Comment on above: Performed By: #### P REGU, ERUR #### [facility] [address] [place] [address] Dr. Dee Humphrey UR MICRO IND NOT INDICATED Normal [facility] Comment on above: Performed By: #### P REGU, ERUR #### [facility] [address] [place] [address] Dr. Dee Humphrey Urobilinogen Qn (U) 0.2 {Blanca'U}/dL Normal 0.2 - 1. 0 [facility] Comment on above: Performed By: #### P REGU, ERUR #### [facility] [address] [place] [address] Dr. Dee Humphrey LIPASEon 04-27-2022 Lipase [Catalytic activity/Vol] 94.0 U/L Normal 73.0-393.0 [facility] Comment on above: Performed By: #### L IPA, CMP #### [facility] [address] [address] [address] Dee Humphrey URon 04-27-2022 , QUAL Negative Normal NEGATIVE [facility] Comment on above: Performed By: #### P REGU, ERUR #### [facility] [address] [address] [address] Dee Humphrey PROF 14(COMP METB)on 022 Albumin [Mass/Vol] 3.9 g/dL Normal 3.4-5.0 [facility] Comment on above: Performed By: #### L IPA, CMP #### [facility] [address] [place] [address] Dr. Dee Humphrey Albumin/Globulin [Mass ratio] 1.0 {ratio} Normal [facility] Comment on above: Performed By: #### L IPA, CMP #### [facility] [address] [place] [address] Dr. Dee Humphrey ALP [Catalytic activity/Vol] 87 U/L Normal 46-116 [facility] Comment on above: Performed By: #### L IPA, CMP #### [facility] [address] [place] [address] Dr. Dee Humphrey ALT [Catalytic activity/Vol] 31 U/L Normal 14-59 [facility] Comment on above: Performed By: #### L IPA, CMP #### [facility] [address] [address] [address] Dee Humphrey Anion gap [Moles/Vol] 10.8 mmol/L Normal [facility] Comment on above: Performed By: #### L IPA, CMP #### [facility] [address] [place] [address] Dr. Dee Humphrey AST [Catalytic activity/Vol] 17 U/L Normal 15-37 [facility] Comment on above: Performed By: #### L IPA, CMP #### [facility] [address] [address] [address] Dee Humphrey Bilirubin [Mass/Vol] 0.1 mg/dL Critically low 0.2-1.0 [facility] Comment on above: Performed By: #### L IPA, CMP #### [facility] [address] [address] [address] Dee Humphrey Calcium [Mass/Vol] 8.9 mg/dL Normal 8.5-10.1 [facility] Comment on above: Performed By: #### L IPA, CMP #### [facility] [address] [address] [address] Dee Humphrey Chloride [Moles/Vol] 103 mmol/L Normal 98-107 [facility] Comment on above: Performed By: #### L IPA, CMP #### [facility] [address] [place] [address] Dr. Dee Humphrey CO2 [Moles/Vol] 26.9 mmol/L Normal 21.0-32.0 [facility] Comment on above: Performed By: #### L IPA, CMP #### [facility] [address] [place] [address] Dr. Dee Humphrey Creatinine [Mass/Vol] 0.80 mg/dL Normal 0.55-1.02 [facility] Comment on above: Performed By: #### L IPA, CMP #### [facility] [address] [place] [address] Dr. Dee Humphrey EGFR-AF BERMUDIAN >60 Normal >=60 [facility] Comment on above: Performed By: #### L IPA, CMP #### [facility] [address] [place] [address] Dr. Dee Humphrey EGFR-NON AF BERMUDIAN >60 Normal >=60 [facility] Comment on above: Performed By: #### L IPA, CMP #### [facility] [address] [place] [address] Dr. Dee Humphrey Globulin (S) [Mass/Vol] 3.9 g/dL Normal [facility] Comment on above: Performed By: #### L IPA, CMP #### [facility] [address] [address] [address] Dee Humphrey Glucose [Mass/Vol] 96 mg/dL Normal 74-106 [facility] Comment on above: Performed By: #### L IPA, CMP #### [facility] [address] [place] [address] Dr. Dee Humphrey Potassium [Moles/Vol] 3.7 mmol/L Normal 3.5-5.1 [facility] Comment on above: Performed By: #### L IPA, CMP #### [facility] [address] [place] [address] Dr. Dee Humphrey Protein [Mass/Vol] 7.8 g/dL Normal 6.4-8.2 [facility] Comment on above: Performed By: #### L IPA, CMP #### [facility] [address] [place] [address] Dr. Dee Humphrey Sodium [Moles/Vol] 137 mmol/L Normal 136-145 [facility] Comment on above: Performed By: #### L IPA, CMP #### [facility] [address] [place] [address] Dr. Dee Humphrey Urea nitrogen [Mass/Vol] 13.0 mg/dL Normal 7.0-18.0 [facility] Comment on above: Performed By: #### L IPA, CMP #### [facility] [address] [place] [address] Dr. Dee Humphrey Urea nitrogen/Creatinine [Mass ratio] 16.2 mg/mg Normal [facility] Comment on above: Performed By: #### L IPA, CMP #### [facility] [address] [place] [address] Dr. Dee Humphrey CBC AUTO DIFFon 03-07-2022 BASO # 0.0 103/ul Normal 0.0-0.1 [facility] Comment on above: Performed By: #### C BC #### [facility] [address] [place] [address] Dr. Dee Humphrey Basophils/100 WBC (Bld) 0.3 % Normal 0.2-2.0 [facility] Comment on above: Performed By: #### C BC #### [facility] [address] [place] [address] Dr. Dee Humphrey EO # 0.1 103/ul Normal 0.0-0.7 [facility] Comment on above: Performed By: #### C BC #### [facility] [address] [place] [address] Dr. Dee Humphrey Eosinophils/100 WBC (Bld) 0.7 % Critically low 0.9-7.0 [facility] Comment on above: Performed By: #### C BC #### [facility] [address] [place] [address] Dr. Dee Humphrey Erythrocyte distribution width (RBC) [Ratio] 13.0 % Normal 11.0-15.0 [facility] Comment on above: Performed By: #### C BC #### [facility] [address] [place] [address] Dr. Dee Humphrey Hematocrit (Bld) [Volume fraction] 39.2 % Normal 36.0-48.0 [facility] Comment on above: Performed By: #### C BC #### [facility] [address] [place] [address] Dr. Dee Humphrey Hemoglobin (Bld) [Mass/Vol] 13.2 g/dL Normal 12.0-16.0 [facility] Comment on above: Performed By: #### C BC #### [facility] [address] [place] [address] Dr. Dee Humphrey IG # 0.05 10e3/ul Critically high 0.00-0.03 [facility] Comment on above: Performed By: #### C BC #### [facility] [address] [place] [address] Dr. Dee Humphrey IG % 0.5 % Normal 0.0-0.5 [facility] Comment on above: Performed By: #### C BC #### [facility] [address] [place] [address] Dr. Dee Humphrye LYMPH # 4.2 103/ul Critically high 1.2-3.8 [facility] Comment on above: Performed By: #### C BC #### [facility] [address] [place] [address] Dr. Dee Humphrey Lymphocytes/100 WBC (Bld) 43.1 % Normal 20.5-60.0 [facility] Comment on above: Performed By: #### C BC #### [facility] [address] [place] [address] Dr. Dee Humphrey MANUAL DIFF REQ NO Normal [facility] Comment on above: Performed By: #### C BC #### [facility] [address] [place] [address] Dr. Dee Humphrey MCH (RBC) [Entitic mass] 30.5 pg Normal 26.7-34.0 [facility] Comment on above: Performed By: #### C BC #### [facility] [address] [place] [address] Dr. Dee Humphrey MCHC (RBC) [Mass/Vol] 33.7 g/dL Normal 29.9-35.2 [facility] Comment on above: Performed By: #### C BC #### [facility] [address] [place] [address] Dr. eDe Humphrey MCV (RBC) [Entitic vol] 90.5 fL Normal 81.0-99.0 [facility] Comment on above: Performed By: #### C BC #### [facility] [address] [place] [address] Dr. Dee Humphrey MONO # 0.4 103/ul Normal 0.3-0.8 [facility] Comment on above: Performed By: #### C BC #### [facility] [address] [place] [address] Dr. Dee Humphrey Monocytes/100 WBC (Bld) 4.4 % Normal 1.7-12.0 [facility] Comment on above: Performed By: #### C BC #### [facility] [address] [place] [address] Dr. Dee Humphrey NEUT # 4.9 103/ul Normal 1.4-6.5 [facility] Comment on above: Performed By: #### C BC #### [facility] [address] [place] [address] Dr. Dee Humphrey Neutrophils/100 WBC (Bld) 51.0 % Normal 43.0-75.0 [facility] Comment on above: Performed By: #### C BC #### [facility] [address] [place] [address] Dr. Dee Humphrey Platelet mean volume (Bld) [Entitic vol] 9.6 fL Normal 9.5-13.5 [facility] Comment on above: Performed By: #### C BC #### [facility] [address] [place] [address] Dr. Dee Humphrey PLT 364 103/ul Normal 150-450 [facility] Comment on above: Performed By: #### C BC #### [facility] [address] [place] [address] Dr. Dee Humphrey RBC 4.33 106/ul Normal 4.20-5.40 [facility] Comment on above: Performed By: #### C BC #### [facility] [address] [place] [address] Dr. Dee Humphrey WBC 9.7 103/ul Normal 4.0-11.0 [facility] Comment on above: Performed By: #### C BC #### [facility] [address] [place] [address] Dr. Dee Humphrey LACTATE/LACTIC ACIDon 2021 Lactate [Moles/Vol] 1.1 mmol/L Normal 0.4-1.9 [facility] Comment on above: Performed By: #### P REGU, ERUR #### [facility] [address] [place] [address] Dr. Dee Humphrey LIPASEon 03-07-2022 Lipase [Catalytic activity/Vol] 79.0 U/L Normal 73.0-393.0 [facility] Comment on above: Performed By: #### C MP, LIPA #### [facility] [address] [place] [address] Dr. Dee Humphrey PROF 14(COMP METB)on 022 Albumin [Mass/Vol] 3.8 g/dL Normal 3.4-5.0 [facility] Comment on above: Performed By: #### C MP, LIPA #### [facility] [address] [address] [address] Dee Humphrey Albumin/Globulin [Mass ratio] 0.9 {ratio} Normal [facility] Comment on above: Performed By: #### C MP, LIPA #### [facility] [address] [address] [address] Dee Humphrey ALP [Catalytic activity/Vol] 80 U/L Normal 46-116 [facility] Comment on above: Performed By: #### C MP, LIPA #### [facility] [address] [address] [address] Dee Humphrey ALT [Catalytic activity/Vol] 27 U/L Normal 14-59 [facility] Comment on above: Performed By: #### C MP, LIPA #### [facility] [address] [address] [address] Dee Humphrey Anion gap [Moles/Vol] 9.5 mmol/L Normal [facility] Comment on above: Performed By: #### C MP, LIPA #### [facility] [address] [address] [address] Dee Humphrey AST [Catalytic activity/Vol] 13 U/L Critically low 15-37 [facility] Comment on above: Performed By: #### C MP, LIPA #### [facility] [address] [address] [address] Dee Humphrey Bilirubin [Mass/Vol] 0.1 mg/dL Critically low 0.2-1.0 [facility] Comment on above: Performed By: #### C MP, LIPA #### [facility] [address] [address] [address] Dee Humphrey Calcium [Mass/Vol] 9.0 mg/dL Normal 8.5-10.1 [facility] Comment on above: Performed By: #### C MP, LIPA #### [facility] [address] [address] [address] Dee Humphrey Chloride [Moles/Vol] 103 mmol/L Normal 98-107 [facility] Comment on above: Performed By: #### C MP, LIPA #### [facility] [address] [address] [address] Dee Humphrey CO2 [Moles/Vol] 27.1 mmol/L Normal 21.0-32.0 [facility] Comment on above: Performed By: #### C MP, LIPA #### [facility] [address] [address] [address] Dee Humphrey Creatinine [Mass/Vol] 0.86 mg/dL Normal 0.55-1.02 [facility] Comment on above: Performed By: #### C MP, LIPA #### [facility] [address] [place] [address] Dr. Dee Humphrey EGFR-AF BERMUDIAN >60 Normal >=60 [facility] Comment on above: Performed By: #### C MP, LIPA #### [facility] [address] [place] [address] Dr. Dee Humphrey EGFR-NON AF BERMUDIAN >60 Normal >=60 [facility] Comment on above: Performed By: #### C MP, LIPA #### [facility] [address] [place] [address] Dr. Dee Humphrey Globulin (S) [Mass/Vol] 4.1 g/dL Normal [facility] Comment on above: Performed By: #### C MP, LIPA #### [facility] [address] [address] [address] Dee Humphrey Glucose [Mass/Vol] 99 mg/dL Normal 74-106 [facility] Comment on above: Performed By: #### C MP, LIPA #### [facility] [address] [address] [address] Dee Humphrey Potassium [Moles/Vol] 3.6 mmol/L Normal 3.5-5.1 [facility] Comment on above: Performed By: #### C MP, LIPA #### [facility] [address] [address] [address] Dee Humphrey Protein [Mass/Vol] 7.9 g/dL Normal 6.4-8.2 [facility] Comment on above: Performed By: #### C MP, LIPA #### [facility] [address] [address] [address] Dee Humphrey Sodium [Moles/Vol] 136 mmol/L Normal 136-145 [facility] Comment on above: Performed By: #### C MP, LIPA #### [facility] [address] [place] [address] Dr. Dee Humphrey Urea nitrogen [Mass/Vol] 12.0 mg/dL Normal 7.0-18.0 [facility] Comment on above: Performed By: #### C MP, LIPA #### [facility] [address] [place] [address] Dr. Dee Humphrey Urea nitrogen/Creatinine [Mass ratio] 14.0 mg/mg Normal [facility] Comment on above: Performed By: #### C MP, LIPA #### [facility] [address] [place] [address] Dr. Dee Humphrey Consent for COVID Vaccineon 08-09-2020 SARS-CoV-2 (COVID-19) RNA JL UIS+probe Ql (Unsp spec) [id number]:127 Normal [facility] Consent for Treatmenton 07-30 Consent for Treatment [id number]:127 Normal [facility] Coding Summary.on 08-07-2020 Coding Summary. 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 an antiviral such as ritonavir; ? [place]'s wort; or ? seizure medicine such as [...] irritable, agitate (more content not included)... Normal [facility] Video Visit - Telehealtho n 02-23-2020 [...] interactive video communications from my office using [employer] due to the restrictions of the COVID-19 pandemic. No physical exam was conducted other than those areas of the body visible to telecommunications with the patient located at [address] [place] [address], with no one else in attendance. If [...] Stopped age (more content not included)... Normal [facility] Comment on above: Result Comment: Elec tronically Signed By: Deepa [facility], Maia Montero.br\Date and Time Signed: 02/22/20 23:17 EDT Video [...] interactive video communications from my office using [employer] due to the restrictions of the COVID-19 pandemic. No physical exam was conducted other than those areas of the body visible to telecommunications with the patient located at [address] [place] [address], with no one else in attendance. If [...] Sister. Depres (more content not included)... Normal [facility] Comment on above: Result Comment: Elec tronically Signed By: Deepa [facility], Maia Ashley\.br\Date and Time Signed: 02/11/20 14:46 EDT Video [...] interactive video communications from my office using [employer] due to the restrictions of the COVID-19 pandemic. No physical exam was conducted other than those areas of the body visible to telecommunications with the patient located at [address] [place], [place] [phone], with no one else in attendance. If [...] - Denies (more content not included)... Normal [facility] Comment on above: Result Comment: Elec tronically Signed By: Deepa [facility], Maia Ashley\.mati\Date and Time Signed: 02/11/20 [...] interactive video communications from my office using [employer] due to the restrictions of the COVID-19 pandemic. No physical exam was conducted other than those areas of the body visible to telecommunications with the patient located at [address] [place] [phone], with no one else in attendance. If [...] Tobacco F (more content not included)... Normal [facility] Comment on above: Result Comment: Elec tronically Signed By: Deepa [facility], Maia Montero.mati\Date and Time Signed: 01/29/20 [...] interactive video communications from my office using [employer] due to the restrictions of the COVID-19 pandemic. No physical exam was conducted other than those areas of the body visible to telecommunications with the patient located at [address] [place], [place] [phone], with no one else in attendance. If [...] No. Yes, (more content not included)... Normal [facility] Comment on above: Result Comment: Elec tronically Signed By: Deepa [facility], Maia Ashley\.mati\Date and Time Signed: 01/29/20 21:38 EDT Patient Educationon 01-28-20 Patient Education aripiprazole (AR i PIP ra zole) Say, Say Discmelt What is the most important information [...] include drow (more content not included)... Normal [facility] Video Visit - Telehealtho n 01-13-2020 [...] interactive video communications from my office using [employer] due to the restrictions of the COVID-19 pandemic. No physical exam was conducted other than those areas of the body visible to telecommunications with the patient located at [address] [place] [address], with no one else in attendance. If [...] Tobacco For (more content not included)... Normal [facility] Comment on above: Result Comment: Judith mckinneyally Signed By: Deepa [facility], Maia Montero.mati\Date and Time Signed: 01/13/20 09:40 EDT Patient Educationon 01-13-20 Patient Education aripiprazole (AR i KAREN welsh) Say Deal What is the most [...] include drow (more content not included)... Normal [facility] Video Visit - Telehealtho n 01-07-2020 [...] interactive video communications from my office using [employer] due to the restrictions of the COVID-19 pandemic. No physical exam was conducted other than those areas of the body visible to telecommunications with the patient located at [address] [place], [place] [phone], with no one else in attendance. If [...] Use:. N (more content not included)... Normal [facility] Comment on above: Result Comment: Elec tronically Signed By: Deepa [facility], Maia Montero.mati\Date and Time Signed: 01/07/20 [...] interactive video communications from my office using [employer] due to the restrictions of the COVID-19 pandemic. No physical exam was conducted other than those areas of the body visible to telecommunications with the patient located at [address] [place] [address], with no one else in attendance. If [...] Father and (more content not included)... Normal [facility] Comment on above: Result Comment: Elec tronically Signed By: Deepa [facility], Maia Ashley\.br\Date and Time Signed: 12/30/19 13:50 EDT Video [...] interactive video communications from my office using [employer] due to the restrictions of the COVID-19 pandemic. No physical exam was conducted other than those areas of the body visible to telecommunications with the patient located at [address] [place], [place] [phone], with no one else in attendance. If [...] Alcohol U (more content not included)... Normal [facility] Comment on above: Result Comment: Elec tronically Signed By: Deepa [facility], Maia Ashley\.br\Date and Time Signed: 12/23/19 [...] include drow (more content not included)... Normal [facility] Video Visit - Telehealtho n 12-04-2019 [...] interactive video communications from my office using [employer] due to the restrictions of the COVID-19 pandemic. No physical exam was conducted other than those areas of the body visible to telecommunications with the patient located at [address] [place] [phone], with no one else in attendance. If [...] Daily, 5 (more content not included)... Normal [facility] Comment on above: Result Comment: Elec tronically Signed By: Deepa [facility], Maia Montero.mati\Date and Time Signed: 12/04/19 [...] rate, h (more content not included)... Normal [facility] Vital Signs Date Time Vital Sign Value Performing Clinician Facility 04-03-2024 13:59-0500 Body mass index (BMI) [Ratio] 42.07 kg/m2 Johnathan Jorje DO Work Phone: [facility] 04-03-2024 13:59-0500 Body weight 104.33 kg Johnathan Jorje DO Work Phone: [facility] 04-03-2024 13:59-0500 Diastolic blood pressure 78 mm[Hg] Johnathan Jorje DO Work Phone: [facility] 04-03-2024 13:59-0500 Systolic blood pressure 110 mm[Hg] Johnathan Jorje DO Work Phone: [facility] 03-21-2024 14:01-0500 Body mass index (BMI) [Ratio] 41.7 kg/m2 Liza Kt PA Work Phone: [facility] 03-21-2024 14:01-0500 Body weight 103.42 kg Liza Kt PA Work Phone: [facility] 03-21-2024 14:01-0500 Diastolic blood pressure 72 mm[Hg] Liza Rowlett PA Work Phone: [facility] 03-21-2024 14:01-0500 Systolic blood pressure 112 mm[Hg] Liza Kt PA Work Phone: [facility] 03-11-2024 14:26-0500 Body mass index (BMI) [Ratio] 41.96 kg/m2 Liza Kt PA Work Phone: [facility] 03-11-2024 14:26-0500 Body weight 104.06 kg Liza Kt PA Work Phone: [facility] 03-11-2024 14:26-0500 Diastolic blood pressure 70 mm[Hg] Liza Corderoey PA Work Phone: [facility] 03-11-2024 14:26-0500 Systolic blood pressure 120 mm[Hg] Liza ANTONIO Work Phone: [facility] 03-06-2024 11:20-0500 Body mass index (BMI) [Ratio] 41.34 kg/m2 Johnahtan Jorje DO Work Phone: [facility] 03-06-2024 11:20-0500 Body weight 102.51 kg Johnathan Jorje DO Work Phone: [facility] 03-06-2024 11:20-0500 Diastolic blood pressure 68 mm[Hg] Johnathan Jorje DO Work Phone: [facility] 03-06-2024 11:20-0500 Systolic blood pressure 120 mm[Hg] Johnathan Jorje DO Work Phone: [facility] 02-21-2024 13:57-0400 Body mass index (BMI) [Ratio] 41.3 kg/m2 Johnathan Jorje DO Work Phone: [facility] 02-21-2024 13:57-0400 Body weight 102.42 kg Johnathan Jorje DO Work Phone: [facility] 02-21-2024 13:57-0400 Diastolic blood pressure 70 mm[Hg] Johnathan Jorje DO Work Phone: [facility] 02-21-2024 13:57-0400 Systolic blood pressure 100 mm[Hg] Johnathan Jorje DO Work Phone: [facility] 02-15-2024 13:03-0400 Body height 160 cm Malena Cardona MD Work Phone: [facility] 02-15-2024 13:03-0400 Body mass index (BMI) [Ratio] 39.65 kg/m2 Malena Cardona MD Work Phone: [facility] 02-15-2024 13:03-0400 Body weight 101.52 kg Malena Cardona MD Work Phone: [facility] 02-15-2024 13:03-0400 Diastolic blood pressure 74 mm[Hg] Malena Cardona MD Work Phone: [facility] 02-15-2024 13:03-0400 Heart rate 94 /min Malena Cardona MD Work Phone: [facility] 02-15-2024 13:03-0400 Systolic blood pressure 123 mm[Hg] Malena Cardona MD Work Phone: [facility] 01-24-2024 11:57-0400 Body mass index (BMI) [Ratio] 41.15 kg/m2 Johnathan Jorje DO Work Phone: [facility] 01-24-2024 11:57-0400 Body weight 102.06 kg Johnathan Jorje DO Work Phone: [facility] 01-24-2024 11:57-0400 Diastolic blood pressure 78 mm[Hg] Johnathan Jorje DO Work Phone: [facility] 01-24-2024 11:57-0400 Systolic blood pressure 124 mm[Hg] Johnathan Jorje DO Work Phone: [facility] 01-03-2024 15:02-0400 Body mass index (BMI) [Ratio] 42.07 kg/m2 Liza ANTONIO Work Phone: [facility] 01-03-2024 15:02-0400 Body weight 104.33 kg Liza ANTONIO Work Phone: [facility] 01-03-2024 15:02-0400 Diastolic blood pressure 74 mm[Hg] Liza ANTONIO Work Phone: [facility] 01-03-2024 15:02-0400 Systolic blood pressure 122 mm[Hg] Liza ANTONIO Work Phone: [facility] 12-25-2023 11:22-0400 Body mass index (BMI) [Ratio] 40.79 kg/m2 Johnathan Jorje DO Work Phone: [facility] 12-25-2023 11:22-0400 Body weight 101.15 kg Johnathan Jorje DO Work Phone: [facility] 12-25-2023 11:22-0400 Diastolic blood pressure 76 mm[Hg] Johnathan Jorje DO Work Phone: [facility] 12-25-2023 11:22-0400 Systolic blood pressure 122 mm[Hg] Johnathan Jorje DO Work Phone: [facility] 08-18-2023 14:24-0400 Body height 160.02 cm [facility] 08-18-2023 14:24-0400 Body mass index (BMI) [Ratio] 40.2 kg/m2 [facility] 08-18-2023 14:24-0400 Body temperature 98.4 [degF] [facility] 08-18-2023 14:24-0400 Body weight 103.02 kg [facility] 08-18-2023 14:24-0400 Diastolic blood pressure 81 mm[Hg] [facility] 08-18-2023 14:24-0400 Heart rate 101 /min [facility] 08-18-2023 14:24-0400 Respiratory rate 16 /min [facility] 08-18-2023 14:24-0400 SaO2% (BldA) [Mass fraction] 98 % [facility] 08-18-2023 14:24-0400 Systolic blood pressure 133 mm[Hg] [facility] 04-27-2023 16:30-0500 Body height 160.02 cm Sanaz Lockwood Other [employer] [facility] [employer] Other 04-27-2023 16:30-0500 Body mass index (BMI) [Ratio] 40.92 kg/m2 Sanaz Lockwood Other [employer] Other 04-27-2023 16:30-0500 Body temperature 98.2 [degF] Sanaz Lockwood Other [employer] Other 04-27-2023 16:30-0500 Body weight 104.78 kg Sanaz Lockwood Other [employer] Other 04-27-2023 16:30-0500 Respiratory rate 18 /min Sanaz Lockwood Other [employer] Other 04-27-2023 16:30-0500 SaO2% (BldA) [Mass fraction] 99 % Sanaz Lockwood Other [employer] Other 05-10-2022 14:45-0500 Body height 160.02 cm Kaylah Lottault Other [employer] Other 05-10-2022 14:45-0500 Body mass index (BMI) [Ratio] 38.97 kg/m2 Kaylah Guille Other [employer] Other 05-10-2022 14:45-0500 Body temperature 99.3 [degF] Kaylah Han Other [employer] Other 05-10-2022 14:45-0500 Body weight 99.79 kg Kaylah Lottault Other [employer] Other 06-29-2019 22:40-0500 Pulse (Heart Rate) 84 /min [facility] 06-29-2019 22:40-0500 Pulse Oximetry 97 % [facility] 06-29-2019 22:35-0500 BP Diastolic 56 mm[Hg] [facility] 06-29-2019 22:35-0500 BP Systolic 100 mm[Hg] [facility] 06-29-2019 21:11-0500 BMI (Body Mass Index) 33.1 kg/m2 [facility] 06-29-2019 21:11-0500 Body Temperature 97.8 [degF] [facility] 06-29-2019 21:11-0500 Body weight 84.8 kg [facility] 06-29-2019 21:11-0500 Height 160.02 cm [facility] 06-29-2019 21:11-0500 Respiratory Rate 20 /min [facility] Encounters Encounter Date Encounter Type Care Provider Facility Start: 04-03-2024 End: 04-03-2024 Bamboo flowsheet Johnathan Jorje DO Work Phone: [facility] Start: 04-03-2024 End: 04-06-2024 Bamboo flowsheet Johnathan Jorje DO Work Phone: [facility] Start: 04-03-2024 End: 04-06-2024 External Result Encounter Johnathan Jorje DO Work Phone: [facility] Unsolicited Start: 04-03-2024 End: 04-03-2024 flow sheet Johnathan Jorje DO Work Phone: [facility] Comment on above: 28 weeks gestation o f ; Third trimester ; Flank pain; Acute cystitis with hematuria; Urinary tract infection without hematuria, site unspecified Start: 03-21-2024 End: 03-21-2024 Clinisync Result Encounter Johnathan Jorje DO Work Phone: [facility] Unsolicited Start: 03-21-2024 End: 03-21-2024 Clinisync Result Encounter Johnathan Jorje DO Work Phone: [facility] Unsolicited Start: 03-21-2024 End: 03-21-2024 ambulatory LIZA DUQUE Not Available Start: 03-21-2024 End: 03-21-2024 flow sheet Liza Duque PA Work Phone: [facility] Comment on above: Second trimester pre gnancy; 26 weeks gestation of ; Elevated glucose tolerance test; Gestational diabetes mellitus (GDM), antepartum, gestational diabetes method of control unspecified Start: 03-14-2024 End: 03-14-2024 ambulatory [facility] Start: 03-11-2024 End: 03-11-2024 Bamboo flowsheet Liza ANTONIO Work Phone: [facility] Start: 03-11-2024 End: 03-11-2024 Bamboo flowsheet Liza ANTONIO Work Phone: [facility] Start: 03-11-2024 End: 03-11-2024 ambulatory LIZA DUQUE Not Available Start: 03-11-2024 End: 03-11-2024 flow sheet Liza ANTONIO Work Phone: [facility] Comment on above: 24 weeks gestation o f ; Second trimester ; Acute cystitis with hematuria Start: 03-06-2024 End: 03-06-2024 Clinisync Result Encounter Johnathan Jorje DO Work Phone: [facility] External Department Unsolicited Start: 03-06-2024 End: 03-06-2024 Clinisync Result Encounter Johnathan Jorje DO Work Phone: [facility] External Department Unsolicited Start: 03-06-2024 End: 03-06-2024 ambulatory JOHNAHTAN JORJE Not Available Start: 03-06-2024 End: 03-06-2024 flow sheet Johnathan Jorje DO Work Phone: [facility] Comment on above: 24 weeks gestation o f ; Second trimester ; Flank pain; Acute cystitis with hematuria Start: 02-26-2024 End: 02-26-2024 ambulatory MARTIN [facility] Start: 02-21-2024 End: 02-21-2024 Bamboo flowsheet Johnathan Jorje DO Work Phone: [facility] Start: 02-21-2024 End: 02-21-2024 Bamboo flowsheet Johnathan Jorje DO Work Phone: [facility] Start: 02-21-2024 End: 02-21-2024 ambulatory JOHNATHAN RECINOS Not Available Start: 02-21-2024 End: 02-21-2024 flow sheet Johnathan Riverao DO Work Phone: [facility] Comment on above: 22 weeks gestation o f ; Second trimester ; Diabetes mellitus screening Start: 02-15-2024 End: 02-15-2024 Office consultation new/estab patient 60 min Malena Cardona MD Work Phone: [facility]- [facility] at [facility] Comment on above: 21 weeks gestation o f (Primary Dx); Multigravida of advanced maternal age in second trimester; Pyelonephritis affecting in second trimester; Bipolar disease during in second trimester ([facility]-HCC); Obesity affecting in second trimester, unspecified obesity type; BMI 39.0-39.9,adult; History of section complicating ; Vapes nicotine containing substance; Current rao with 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, antepartum; History of delivery, currently Start: 02-15-2024 End: 02-15-2024 Orders Only Flor Lopez RN [facility]- Medic ine at [facility] Comment on above: 21 weeks gestation o f (Primary Dx); Obesity affecting in second trimester, unspecified obesity type Start: 02-15-2024 End: 02-15-2024 [facility] Start: 02-09-2024 End: 02-09-2024 Evaluation and management of inpatient TEJNAKIA ZENG [facility] Start: 02-08-2024 End: 02-09-2024 Evaluation and management of inpatient NATO Hung LLOYD [facility] Start: 01-24-2024 End: 01-24-2024 Bamboo flowsheet Johnathan Riverao DO Work Phone: [facility] Start: 01-24-2024 End: 01-26-2024 Clinisync Result Encounter Johnathan Recinos DO Work Phone: [facility] Unsolicited Start: 01-24-2024 End: 01-27-2024 External Result Encounter Johnathan Jorje DO Work Phone: [facility] Unsolicited Start: 01-24-2024 End: 01-27-2024 External Result Encounter Johnathan Jorje DO Work Phone: [facility] Unsolicited Start: 01-24-2024 End: 01-24-2024 ambulatory JOHNATHAN JORJE Not Available Start: 01-24-2024 End: 01-24-2024 Patient encounter procedure Johnathan Jorje DO Work Phone: [facility] Start: 01-24-2024 End: 01-24-2024 Periodic preventive med est patient 18-39 yrs Johnathan Jorje DO Work Phone: [facility] Comment on above: 18 weeks gestation o f ; Well woman exam with routine gynecological exam; Screening, , for anatomic survey; Exposure to STD; Vaginal discharge Start: 01-03-2024 End: 01-03-2024 flow sheet Liza ANTONIO Work Phone: [facility] Comment on above: Rash; Second trimester Start: 01-03-2024 End: 01-03-2024 ambulatory LIZA DUQUE Not Available Start: 12-25-2023 End: 12-25-2023 Bamboo flowsheet Johnathan Jorje DO Work Phone: [facility] Start: 12-25-2023 End: 12-25-2023 Bamboo flowsheet Johnathan Jorje DO Work Phone: [facility] Start: 12-25-2023 End: 12-25-2023 ambulatory JOHNATHAN JORJE Not Available Start: 12-25-2023 End: 12-25-2023 flow sheet Johnathan Jorje DO Work Phone: [facility] Comment on above: Second trimester pre gnancy Start: 11-24-2023 End: 11-24-2023 ambulatory JOHNATHAN JORJE Not Available Start: 08-18-2023 End: 08-18-2023 ambulatory [facility] Work Phone: Start: 08-18-2023 End: 08-18-2023 Patient encounter procedure [facility] Physician [facility] Work Phone: Start: 04-27-2023 End: 04-27-2023 ambulatory Sanaz Lockwood Other [employer] Other Start: 04-27-2023 Office outpatient vi sit 25 minutes Sanaz Lockwood [facility] Start: 05-10-2022 End: 05-10-2022 ambulatory Kaylah Han Other [facility] Other Start: 05-10-2022 Office outpatient ne w 20 minutes Kaylah Han [facility] Start: 04-27-2022 End: 04-27-2022 ambulatory KIMBERLYN XIE Facility:[facility] Start: 03-07-2022 End: 03-07-2022 ambulatory KIMBERLYN XIE Facility:[facility] Start: 09-23-[address] JAZIEL HILL Facility :[facility] Start: 06-29-2019 End: 06-29-2019 Emergency department patient visit Kimberlyn Xie [facility]Emergency [facility] Procedures Date Procedure Procedure Detail Performing Clinician Start: 04-03-2024 RECURRENT VAGINITIS (HTRX) Johnathan Jorje DO Work Phone: Start: 04-03-2024 Urnls dip stick/tablet rgnt non-auto w/o micrscp Johnathan Jorje DO Work Phone: Start: 03-21-2024 Urnls dip stick/tablet rgnt non-auto w/o micrscp Liza ANTONIO Work Phone: Start: 03-21-2024 ALL CBC WITH AUTO DIFF Johnathan Jorje DO Work Phone: Start: 03-11-2024 Urnls dip stick/tablet rgnt non-auto w/o micrscp Johnathan Jorje DO Work Phone: Start: 03-06-2024 TBH UA (CLEAN/CATCH) [employer]/MICRO IF IND. Johnathan Jorje DO Work Phone: Start: 03-06-2024 Urnls dip stick/tablet rgnt non-auto w/o micrscp Johnathan Recinos DO Work Phone: Start: 02-21-2024 Urnls dip stick/tablet rgnt non-auto w/o micrscp Johnathan Jorje DO Work Phone: Start: 02-15-2024 H/O: section History of section complicating Malena Cardona MD Work Phone: Start: 01-24-2024 URETHRITIS/DISCHARGE [facility] Work Phone: Start: 01-24-2024 AFP, SERUM, OPEN SPINA BIFIDA [email or web address] Work Phone: Start: 01-24-2024 Urnls dip stick/tablet rgnt non-auto w/o micrscp [facility] DO Work Phone: Start: 01-24-2024 Microscopic observation [Identifier] in Cervix by Cyto stain Flor Lopez RN Start: 01-03-2024 Urnls dip stick/tablet rgnt non-auto w/o micrscp Liza ANTONIO Work Phone: Start: 08-18-2023 Quick Strep (POC) Plan of Treatment Date Care Activity Detail Author Start: 01-23-2027 Screening for malign ant neoplasm of cervix [facility] Start: 02-14-2025 Adult BMI Screening Adult BMI Screen ing [facility] Start: 02-14-2025 Tobacco Screening Tobacco Screening [facility] Start: 02-14-2025 End: 02-14-2025 US MFM with or without consult US MFM with or without consult Imaging Routine 21 weeks gestation of Obesity affecting in second trimester, unspecified obesity type Expected: 02/14/2025 (Approximate), Expires: 02/14/2025 [facility] Work Phone: Comment on above: Expected: 02/14/2025 (Approximate), Expires: 02/14/2025 Start: 05-09-2024 End: 05-09-2024 Professional / ancillary services management 05/09/2024 8:30 AM EST Ancillary Procedure [facility] [address] [place] [id number] [facility] Start: 04-03-2024 End: 04-03-2024 Patient encounter procedure [facility] Comment on above: Arrived Start: 04-03-2024 End: 04-03-2024 Professional / ancillary services management 04/03/2024 1:00 PM EST Ancillary Procedure [facility] [address] [place] [phone] [facility] Start: 03-21-2024 End: 03-21-2025 Measurement of glucose 3 hours after glucose challenge for glucose tolerance test Glucose tolerance, 3 hours Lab Routine Elevated glucose tolerance test Expected: 03/21/2024 (Approximate), Expires: 03/21/2025 [facility] Work Phone: Comment on above: Expected: 03/21/2024 (Approximate), Expires: 03/21/2025 Start: 03-21-2024 End: 03-21-2025 US for US OB SCAN FOR GROWTH Imaging Routine Gestational diabetes mellitus (GDM), antepartum, gestational diabetes method of control unspecified Expected: 03/21/2024 (Approximate), Expires: 03/21/2025 [facility] Comment on above: Expected: 03/21/2024 (Approximate), Expires: 03/21/2025 Start: 03-21-2024 End: 03-21-2024 Patient encounter procedure 03/21/2024 1:30 PM EST Routine [facility] [address] [facility] [place] [place] [phone] Liza Duque PA [address] [place], [place] [id number] [facility] Start: 03-14-2024 End: 03-14-2024 Patient encounter procedure 03/14/2024 9:45 AM EST Appointment [facility] [address] [place] [address] [facility] Start: 02-22-2024 End: 02-22-2024 Patient encounter procedure 02/22/2024 10:15 AM EDT Appointment [facility] [address] [place] [address] [facility] Start: 02-21-2024 End: 02-20-2025 CBC panel - Blood by Automated count CBC Lab Routine Diabetes mellitus screening Expected: 02/21/2024 (Approximate), Expires: 02/20/2025 [facility] Work Phone: Comment on above: Expected: 02/21/2024 (Approximate), Expires: 02/20/2025 Start: 02-21-2024 End: 02-20-2025 Measurement of glucose 1 hour after glucose challenge for glucose tolerance test Glucose tolerance, 1 hour Lab Routine Diabetes mellitus screening Expected: 02/21/2024 (Approximate), Expires: 02/20/2025 [facility] Comment on above: Expected: 02/21/2024 (Approximate), Expires: 02/20/2025 Start: 02-21-2024 End: 02-21-2024 Patient encounter procedure 02/21/2024 1:50 PM EDT Routine [facility] [address] [place] [phone] Johnathan Recinos, DO [address] [place] [address] [facility] Start: 01-24-2024 End: 02-23-2024 Alpha fetoprotein, maternal Alpha fetoprotein, maternal Lab Routine 18 weeks gestation of Expected: 01/24/2024 (Approximate), Expires: 02/23/2024 [facility] Comment on above: Expected: 01/24/2024 (Approximate), Expires: 02/23/2024 Start: 01-22-2024 End: 01-22-2024 Patient encounter procedure 01/22/2024 10:20 AM EDT Routine [facility] [address] [place] [address] Johnathan Recinos, DO [address] [facility] [place] [address] [facility] Start: 12-31-2023 COVID-19 Vaccine ( season) COVID-19 Vaccine ( season) [facility] Start: 12-31-2023 Influenza vaccination [facility] Start: 10-11-2021 DTaP,Tdap and Td Vaccines (2 - Td or Tdap) DTaP,Tdap and Td Vaccines (2 - Td or Tdap) [facility] Start: 2017 Screening for malign ant neoplasm of cervix [facility] Start: 2008 Screening for malign ant neoplasm of cervix Pap Smear [facility] Start: 2005 Adult BMI Follow Up Plan Adult BMI Follow Up Plan [facility] Start: 1999 Depression Screening Depression Scre [facility] Bacteria identified in Urine by Culture Urine culture Microbiology Routine 24 weeks gestation of Second trimester Ordered: 03/06/2024 [facility] Work Phone: Comment on above: Ordered: 03/06/2024 Bacteria identified in Urine by Culture Urine culture Microbiology Routine Flank pain Acute cystitis with hematuria Urinary tract infection without hematuria, site unspecified Ordered: 04/03/2024 [facility] Work Phone: Comment on above: Ordered: 04/03/2024 CHLAMYDIA TRACHOMATI S (GENITO/STI) CHLAMYDIA TRACHOMATIS (GENITO/STI) Lab Routine Exposure to STD Ordered: 01/24/2024 [facility] Comment on above: Ordered: 01/24/2024 Cytology Cervical or vaginal smear or scraping study Pap Smear Pathology and Cytology Routine Well woman exam with routine gynecological exam Ordered: 01/24/2024 [facility] Comment on above: Ordered: 01/24/2024 Human papilloma viru s DNA [Presence] in Unspecified specimen by Probe with amplification HPV DNA probe, amplified Microbiology Routine Well woman exam with routine gynecological exam Ordered: 01/24/2024 [facility] Comment on above: Ordered: 01/24/2024 Neisseria gonorrhoea e DNA [Presence] in Unspecified specimen by J LUIS with probe detection Neisseria gonorrhea DNA probe, direct Lab Routine Exposure to STD Ordered: 01/24/2024 [facility] Comment on above: Ordered: 01/24/2024 Patient Education Epinephrine (B y injection) Anaphylaxis (ED) General Allergic Reaction (ED) [facility] Patient referral [facility] SURESWAB(R) ADVANCED VAGINITIS PLUS, TMA SURESWAB(R) ADVANCED VAGINITIS PLUS, TMA Pathology and Cytology Routine Vaginal discharge Ordered: 01/24/2024 [facility] Work Phone: Comment on above: Ordered: 01/24/2024 Immunizations Immunization Date Immunization Notes Care Provider Butch sims 06-02-2008 influenza virus vacc ine, unspecified formulation Johnathan Jorje DO Work Phone: [facility] Payers Date Payer Category Payer Private Health Insurance [facility] MEDICA[facility] [id number] 2023 [facility] er [id number] 2023 [employer] Blue Shie ld Managed Care - [place] JOSHUAEM [id number] 2023 Unknown BCBS BCBS [id number] [id number] 2023-Present [phone] [address] [place] [id number] 1987 Unknown [id number] 2.16.840.1.176903.3.579. 2.593 1987 Unknown [id number] 2.16.840.1.556837.3.579. 2.593 1987 Unknown [id number] 2.16.840.1.450204.3.579. 2.593 1987 Unknown [id number] 2.16.840.1.872349.3.579. 2.1286 1987 Unknown [id number] 2.16.840.1.557665.3.579. 2.1286 1987 Unknown [id number] 2.16.840.1.655218.3.579. 2.1286 1987 Unknown [id number] 2.16.840.1.975900.3.579. 2.1286 1987 Unknown [id number] 2.16.840.1.320324.3.579. 2.1286 1987 Unknown [id number] 2.16.840.1.237388.3.579. 2.1286 1987 Unknown [id number] 2.16.840.1.923517.3.579. 2.9 1987 Unknown [id number] 2.16.840.1.666573.3.579. 2.1259 1987 Unknown [id number] 2.16.840.1.137315.3.579. 2.9 1987 Unknown [id number] 2.16.840.1.054087.3.579. 2.9 1987 Unknown [id number] 2.16.840.1.339747.3.579. 2.9 1987 Unknown [id number] 2.16.840.1.492708.3.579. 2.9 1987 Unknown [id number] 2.16.840.1.420148.3.579. 2.9 1987 Unknown [id number] 2.16.840.1.631543.3.579. 2.9 1959 Self-pay [id number] 1959 Unknown [id number] Private Health Insurance [id number] Self-pay Self Pay [id number] Social History Date Type Detail Facility Start: 06-29-2019 End: 08-18-2023 Tobacco smoking status [facility] Smoker (finding) [facility] Start: 1985 Sex Assigned At Female [facility] Start: 06-10-2020 End: 02-15-2024 Sex Assigned At [facility] Start: 02-15-2024 Tobacco smoking status NHIS Ex-smoker [facility] Start: 02-15-2024 Tobacco use and exposure Smokeless tobacco non-user [facility] Start: 02-15-2024 Alcoholic beverage intake Lifetime non-drinker (finding) [facility] Start: 06-10-2020 End: 02-15-2024 History of Social function [facility] Childcare Unknown [facility] Start: 02-15-2024 Tobacco Comment PT IS A VAPER [facility] tem Start: 10-03-2023 [facility] Start: 1987 Sex assigned at Not on file [facility] Start: 12-02-2014 Sex Female (finding) [facility] Start: 02-08-2024 Sexual orientation Heterosexual (finding) [facility] Tobacco smoking stat [facility] Tobacco smoking consumption unknown [facility] Start: 10-26-2023 Gender identity Identifies as female gender (finding) [facility] Medical Equipment Procedure Code Equipment Code Equipment Origin al Text Equipment Identifier Dates 1 strip by In Vi tro route Daily Use in the morning prior to breakfast, 1 hour after each meal for a total of 4times daily. [id number] Start: 03-25-2024 End: 04-24-2024 1 each by In Vit ro route Daily Use to check FSBS four times daily [id number] Start: 03-25-2024 End: 04-24-2024 Goals Date Patient Goal Desired Activity /State Personal health goal Comment on above: Formatting of this n ote might be different from the original. Evaluation of progress towards goal: go home today Clinical Notes 12-02-2019 to 04-03-2024 Gayle Hendricks LPN - 04/03/2024 1:40 PM PACO Snider 03/21/2024 1:30 PM Claude Guillermo LPN - 03/11/2024 1:50 PM Meghna Hendricks LPN - 03/06/2024 10:50 AM EST Note Date & Type Note Facility 04-03-2024 History of Present illness Narrative Reason for Appointment: Patient ID: Mikaela Ruiz is a 38 y.o. female who presents for Routine Visit Patient presents today for Return OB appointment. MEDICATIONS Current Outpatient Medications Medication Instructions Alcohol Swabs (Alcohol Prep Pad) 70 % pads 1 Pad, Topical, Daily, Use four times daily to check FSBS. aspirin 81 mg, Daily Blood Glucose Monitoring Suppl (FinanzCheck Glucometer) w/Device kit 1 kit, Does not apply, Daily, Use four times daily to check FSBS. In the morning prior to breakfast & 1 hour after each meal for a total of 4times daily. cephalexin (KEFLEX) 500 mg, Oral, Daily Glucose Blood (Blood Glucose Test) strip 1 strip, In Vitro, Daily, Use in the morning prior to breakfast, 1 hour after each meal for a total of 4times daily. lamoTRIgine (LAMICTAL) 200 mg, Daily Lancets Ultra Thin misc 1 each, In Vitro, Daily, Use to check FSBS four times daily lurasidone (LATUDA) 40 mg, Daily with breakfast magnesium oxide (MAG-OX) 400 mg, Oral, Daily ondansetron ODT (ZOFRAN-ODT) 4 mg, Oral, Every 6 hours PRN ondansetron ODT (ZOFRAN-ODT) 4 mg, Oral, Every 6 hours PRN promethazine (PHENERGAN) 12.5 mg, Oral, Every 6 hours PRN, Take 1 tablet by mouth every 6 hours as needed for nausea. venlafaxine XR (EFFEXOR XR) 37.5 mg, Daily ALLERGIES Allergies Allergen Reactions Egg-Derived Products GI intolerance Sulfamethoxazole Hives Other Reaction(s): Unknown Reaction, hives Sulfamethoxazole-Trimethoprim Unknown Other Reaction(s): Unknown Trimethoprim Hives Other Reaction(s): Unknown Reaction, hives PROBLEMS Active Ambulatory Problems Diagnosis Date Noted Gestational diabetes mellitus (GDM), antepartum 03/21/2024 28 weeks gestation of 04/03/2024 Third trimester 04/03/2024 Resolved Ambulatory Problems Diagnosis Date Noted No Resolved Ambulatory Problems Past Medical History: Diagnosis Date Bipolar 1 disorder ([facility]/HCC) HISTORY PAST MEDICAL HISTORY SOCIAL HISTORY Past Medical History: Diagnosis Date Bipolar 1 disorder (CMS/[facility]) Social History Tobacco Use Smoking status: Not [...] Eyes: Negative. Respiratory: Negative. Cardiovascular: Negative. Gastrointestinal: Positive for nausea. Genitourinary: Negative. Musculoskeletal: Negative. Skin: Negative. Neurological: [...] nursing note reviewed. Exam conducted with a special needs child caregiver present. Vitals: Estimated body mass index is 42.07 kg/m as calculated from the following: Height as of 03/18/22: 5' 2 . Weight as of this encounter: 230 lb. BP: 110/78 Patient's last menstrual period was 09/12/2023. ASSESSMENT & PLAN ICD-10-CM 1. 28 weeks gestation of Z3A.28 POCT urinalysis dipstick manually resulted 2. Third trimester Z34.93 POCT urinalysis dipstick manually resulted 3. Flank pain R10.9 cephalexin (Keflex) 500 MG capsule 4. Acute cystitis with hematuria N30.01 cephalexin (Keflex) 500 MG capsule 5. Urinary tract infection without hematuria, site unspecified N39.0 cephalexin (Keflex) 500 MG capsule Return OB: Patient presents today for a routine obstetrics appointment. Patient is currently 28w1d . Patient states she is doing well but has complaints of being tired due to current . Patient has verbalizes frequent movement. labor precautions was discussed/given and patient was instructed to perform kick counts three times a day. Pt is severely nauseated- pt advised to go to [facility] for fluids and for diabetic education. Pt has hematuria and UTI. Reordering Keflex. Rx for Reglan faxed to pharmacy. Orders Placed This Encounter Procedures POCT urinalysis dipstick manually resulted Follow Up: Patient is to return to office in 2 week for routine OB appointment. Documented by Gayle Hendricks LPN on behalf of: Johnathan Recinos DO documented in this encounter [facility] 03-21-2024 History of Present illness Narrative Reason for Appointment: Patient ID: Mikaela Ruiz is a 38 y.o. female who presents for Gynecologic Exam Patient presents today for Return OB appointment. MEDICATIONS Current Outpatient Medications Medication Instructions aspirin 81 mg, Daily cephalexin (KEFLEX) 500 mg, Oral, 4 times daily lamoTRIgine (LAMICTAL) 200 mg, Daily lurasidone (LATUDA) 40 mg, Daily with breakfast magnesium oxide (MAG-OX) 400 mg, Oral, Daily ondansetron ODT (ZOFRAN-ODT) 4 mg, Oral, Every 6 hours PRN venlafaxine XR (EFFEXOR XR) 37.5 mg, Daily ALLERGIES Allergies Allergen Reactions Egg-Derived Products GI intolerance Sulfamethoxazole Hives Other Reaction(s): Unknown Reaction, hives Sulfamethoxazole-Trimethoprim Unknown Other Reaction(s): Unknown Trimethoprim Hives Other Reaction(s): Unknown Reaction, hives PROBLEMS Active Ambulatory Problems Diagnosis Date Noted No Active Ambulatory Problems Resolved Ambulatory Problems Diagnosis Date Noted No Resolved Ambulatory Problems Past Medical History: Diagnosis Date Bipolar 1 disorder (CMS/HCC) HISTORY PAST MEDICAL HISTORY SOCIAL HISTORY Past Medical History: Diagnosis Date Bipolar 1 disorder ([facility]) Social History Tobacco Use Smoking status: Not [...] Exam Constitutional: Appearance: Normal appearance. She is normal weight. HENT: Head: Normocephalic. Cardiovascular: Rate and Rhythm: Normal rate. Pulses: Normal pulses. Pulmonary: Effort: Pulmonary effort is normal. Breath sounds: Normal breath sounds. Abdominal: Palpations: Abdomen is soft. Musculoskeletal: General: Normal range of motion. Neurological: General: No focal deficit present. Mental Status: She is alert and oriented to person, place, and time. Psychiatric: Mood and Affect: Mood normal. Behavior: Behavior normal. Thought Content: Thought content normal. Judgment: Judgment normal. Vitals and nursing note reviewed. Vitals: Estimated body mass index is 41.96 kg/m as calculated from the following: Height as of 03/18/22: 5' 2 . Weight as of 03/11/24: 229 lb 6.4 oz. BP: Patient's last menstrual period was 09/12/2023. ASSESSMENT & PLAN ICD-10-CM 1. Second trimester Z34.92 POCT urinalysis dipstick manually resulted 2. 26 weeks gestation of Z3A.26 3. Elevated glucose tolerance test R73.09 Glucose tolerance, 3 hours Glucose tolerance, 3 hours Return OB: Patient presents today for a routine obstetrics appointment. Patient is currently 26w2d . Patient states she is doing well but has complaints of being tired due to current . Patient has verbalizes frequent movement. labor precautions was discussed/given and patient was instructed to perform kick counts three times a day. Orders Placed This Encounter Procedures Glucose tolerance, 3 hours POCT urinalysis dipstick manually resulted Pt did not pass her her 1 hour glucose. Pt was given a 3 hour glucose order to have done at [facility]. Patient DECLINES 3 hour gtt and would like to start testing FSBS--Patient will be referred to Diabetic Edu [facility]. Follow Up: Patient is to return to office in 2 week for routine OB appointment. Documented by Nettie Frazier MA on behalf of: PACO Freed documented in this encounter [facility] 03-11-2024 History of Present illness Narrative Reason for Appointment: Patient ID: Mikaela Ruiz is a 38 y.o. female who presents for Follow up UTI Patient presents today for Return OB appointment. MEDICATIONS Current Outpatient Medications Medication Instructions aspirin 81 mg, Daily cephalexin (KEFLEX) 500 mg, Oral, 4 times daily lamoTRIgine (LAMICTAL) 200 mg, Daily lurasidone (LATUDA) 40 mg, Daily with breakfast magnesium oxide (MAG-OX) 400 mg, Oral, Daily ondansetron ODT (ZOFRAN-ODT) 4 mg, Oral, Every 6 hours PRN venlafaxine XR (EFFEXOR XR) 37.5 mg, Daily ALLERGIES Allergies Allergen Reactions Egg-Derived Products GI intolerance Sulfamethoxazole Other Reaction(s): Unknown Reaction, hives Sulfamethoxazole-Trimethoprim Unknown Trimethoprim Other Reaction(s): Unknown Reaction, hives PROBLEMS Active Ambulatory Problems Diagnosis Date Noted No Active Ambulatory Problems Resolved Ambulatory Problems Diagnosis Date Noted No Resolved Ambulatory Problems Past Medical History: Diagnosis Date Bipolar 1 disorder ([facility]) HISTORY PAST MEDICAL HISTORY SOCIAL HISTORY Past Medical History: Diagnosis Date Bipolar 1 disorder ([facility]) Social History Tobacco Use Smoking status: Not [...] SYSTEMS Review of Systems: Review of Systems All other systems reviewed and are negative. OBJECTIVE Objective: Physical Exam Constitutional: Appearance: Normal [...] nursing note reviewed. Exam conducted with a special needs child caregiver present. Vitals: Estimated body mass index is 41.96 kg/m as calculated from the following: Height as of 03/18/22: 5' 2 . Weight as of this encounter: 229 lb 6.4 oz. BP: 120/70 Patient's last menstrual period was 09/12/2023. ASSESSMENT & PLAN ICD-10-CM 1. 24 weeks gestation of Z3A.24 POCT urinalysis dipstick manually resulted 2. Second trimester Z34.92 POCT urinalysis dipstick manually resulted 3. Acute cystitis with hematuria N30.01 POCT urinalysis dipstick manually resulted Patient presents today for a routine obstetrics appointment. Patient is currently 24w6d with a Estimated Date of Delivery: 06/25/24. Patient aware that she will need to continue to take antibiotics for remainder of . Nursing will reach out to [facility] to inquire about culture results. Patient does have follow up appointment with Maternal Medicine. Patient to return to clinic in 4 weeks for routine OB appointment. Documented by Barbara Guillermo LPN on behalf of: PACO Freed documented in this encounter [facility] 03-06-2024 History of Present illness Narrative Reason [...] Medical History: Diagnosis Date Bipolar 1 disorder ([facility]) HISTORY PAST MEDICAL HISTORY SOCIAL HISTORY Past Medical History: Diagnosis Date Bipolar 1 disorder ([facility]) Social History Tobacco Use Smoking status: Not [...] nursing note reviewed. Exam conducted with a special needs child caregiver present. Vitals: Estimated body mass index is [...] Johnathan Recinos DO documented in this encounter [facility] 02-21-2024 History of Present illness Narrative [...] nursing note reviewed. Exam conducted with a special needs child caregiver present. Vitals: Estimated body mass index is 41.3 kg/m as calculated from the following: Height as of 22: 5' 2 . Weight as of this [...] Johnathan Recinos DO documented in this encounter [facility] 02-15-2024 History of Present illness Narrative [facility] M[facility]- [facility] Consult Note Reason For Consult: AMA, history of section x3, pyelonephritis follow up HPI: Maria De Jesus Ruiz is a 38 y.o. at 21w2d with Estimated Date of Delivery: 06/25/24 based on LMP=US at who presented for consultation from Johnathan Ledezam DO regarding Chief Complaint Patient presents with [...] Medical History: Diagnosis Date Bipolar 1 disorder ([facility]) Depression PSHIST: Past Surgical History: Procedure Laterality [...] patient >=40. At age 38 y.o. Ms. Maria De Jesus Ruiz's age based aneuploidy risks are: The [...] 4. Bipolar disease during in second trimester ([facility]) I reviewed with the patient that stability [...] of withdrawal and extrapyramidal effects on reviewed. Director Of Partner Marketing should be notified. Lack of controlled human [...] . For prevention of venous thromboembolism in [id number] groups, pharmacologic thromboprophylaxis should be considered in [...] prevention Cervical length at 22 weeks at [facility] Follow up survey scheduled Serial growth assessments every 4 weeks after the anatomy scan can be done at OB office. ventricles should be measured at each US. If >=10 mm or concern for hydrocephalus refer to MFM. If you would like [facility] to do the growth US please [...] contact me if you have any concerns. Malnea Cardona MD, FACOG (she/hers) Maternal- Medicine [facility] [address] [place] [address] This document was created with [employer] technology. Though I make every effort to review the dictation as it is transcribed, on occasion the spoken word can be misinterpreted by the technology leading to inappropriate words, phrases, or sentences. This note is addressed to the requesting provider as a consultation for clinical guidance. Specific medical abbreviations are occasionally used and those are generally approved by the [place]?Board of?Obstetrics and?Gynecology?as well as?Jeri lane abbreviations. The above plan of care was based solely on the diagnoses for which a consultation was requested. ?More frequent testing may be indicated based on her other medical/obstetrical conditions. The management of other or medical conditions is beyond the scope of requested consultation and will continue to be followed by the primary steam distribution supervisor or primary care provider. Note to patient: [...] yes Have you been seen here at [facility] in a previous ? yes Recent ER visits or hospitalizations? 02/07 kidney and bladder infection Bring blood sugar log or meter with you today? (Please bring them with you for every visit at [facility]) na Flu vaccine (Mar-June)? na Any concerns that you would like me to mention to the provider today? no documented in this encounter [facility] 01-24-2024 History of Present illness Narrative Reason for Appointment: Patient ID: Mikaela Ruiz is a 38 y.o. female who presents for Routine Visit Patient presents today for Annual Exam., STD Check., and Return OB appointment. MEDICATIONS Current Outpatient Medications Medication Instructions lamoTRIgine (LAMICTAL) 200 mg, Oral, Daily lurasidone (LATUDA) 40 mg, Oral, Daily with breakfast magnesium oxide (MAG-OX) 400 mg, Oral, Daily venlafaxine XR (EFFEXOR XR) 37.5 mg, Oral, Daily ALLERGIES Allergies Allergen Reactions Egg-Derived Products GI intolerance Sulfamethoxazole Other Reaction(s): Unknown Reaction, hives Sulfamethoxazole-Trimethoprim Unknown Trimethoprim Other Reaction(s): Unknown Reaction, hives PROBLEMS Active Ambulatory Problems Diagnosis Date Noted No Active Ambulatory Problems Resolved Ambulatory Problems Diagnosis Date Noted No Resolved Ambulatory Problems Past Medical History: Diagnosis Date Bipolar 1 disorder ([facility]) HISTORY PAST MEDICAL HISTORY SOCIAL HISTORY Past Medical History: Diagnosis Date Bipolar 1 disorder ([facility]) Social History Tobacco Use Smoking status: Not [...] SYSTEMS Review of Systems: Review of Systems OBJECTIVE Objective: OBGyn Exam Vitals: Estimated body mass index is 41.15 kg/m as calculated from the following: Height as of 03/18/22: 5' 2 . Weight as of this encounter: 225 lb. BP: 124/78 Patient's last menstrual period was 09/12/2023. ASSESSMENT & PLAN ICD-10-CM 1. 18 weeks gestation of Z3A.18 POCT urinalysis dipstick manually resulted Alpha fetoprotein, maternal Alpha fetoprotein, maternal 2. Well woman exam with routine gynecological exam Z01.419 Pap Smear HPV DNA probe, amplified 3. Screening, , for anatomic survey Z36.89 US OB ANATOMY SINGLE W US OB CERVICAL LENGTH 4. Exposure to STD Z20.2 CHLAMYDIA TRACHOMATIS (GENITO/STI) Neisseria gonorrhea DNA probe, direct 5. Vaginal discharge N89.8 SURESWAB(R) ADVANCED VAGINITIS PLUS, TMA Return OB/Annual Exam: Patient presents today for a annual exam/routine obstetrics appointment. Patient is currently 18w1d . Patient states she is doing well but has complaints of nausea in the morning. Pap and cultures was obtained without difficulty and patient was given orders for msAFP to be obtained. Pt still has zofran pump, when removed pt still very sick. This is number 4 section, pt to be referred to [facility] for level II ultrasound. Pt to return in 4 weeks for scheduled OB appt. Orders Placed This Encounter Procedures HPV DNA probe, amplified US OB ANATOMY SINGLE W US OB CERVICAL LENGTH CHLAMYDIA TRACHOMATIS (GENITO/STI) Neisseria gonorrhea DNA probe, direct Alpha fetoprotein, maternal POCT urinalysis dipstick manually resulted Follow Up: Patient is to schedule annual exam for next year and return to office in 4 weeks for OB appointment. Documented by Gayle Hendricks LPN on behalf of: Johnathan Recinos DO documented in this encounter [facility] 01-03-2024 History of Present illness Narrative Reason for Appointment: Patient ID: Mikaela Ruiz is a 38 y.o. female who presents for Routine Visit (Pt present today for rash) Patient presents today for Return OB appointment. MEDICATIONS Current Outpatient Medications Medication Instructions lamoTRIgine (LAMICTAL) 200 mg, Oral, Daily lurasidone (LATUDA) 40 mg, Oral, Daily with breakfast metoclopramide (REGLAN) 10 mg, Oral, 3 times daily before meals, Take 1 tablet by mouth 30 minutes prior to meals 3 times daily as needed for nausea. promethazine (PHENERGAN) 12.5 mg, Oral, Every 6 hours PRN, Take 1 tablet by mouth every 6 hours as needed for nausea. venlafaxine XR (EFFEXOR XR) 37.5 mg, Oral, Daily ALLERGIES Allergies Allergen Reactions Egg-Derived Products GI intolerance Sulfamethoxazole Other Reaction(s): Unknown Reaction, hives Sulfamethoxazole-Trimethoprim Unknown Trimethoprim Other Reaction(s): Unknown Reaction, hives PROBLEMS Active Ambulatory Problems Diagnosis Date Noted No Active Ambulatory Problems Resolved Ambulatory Problems Diagnosis Date Noted No Resolved Ambulatory Problems Past Medical History: Diagnosis Date Bipolar 1 disorder ([facility]) HISTORY PAST MEDICAL HISTORY SOCIAL HISTORY Past Medical History: Diagnosis Date Bipolar 1 disorder ([facility]) Social History Tobacco Use Smoking status: Not [...] Exam Constitutional: Appearance: Normal appearance. She is normal weight. HENT: Head: Normocephalic. Cardiovascular: Rate and Rhythm: Normal rate. Pulses: Normal pulses. Pulmonary: Effort: Pulmonary effort is normal. Breath sounds: Normal breath sounds. Abdominal: Palpations: Abdomen is soft. Musculoskeletal: General: Normal range of motion. Neurological: General: No focal deficit present. Mental Status: She is alert and oriented to person, place, and time. Skin: General: Skin is warm and dry. Findings: Rash present. Comments: Red, raised area around zofran pump applicator, pruitic, dry Psychiatric: Mood and Affect: Mood normal. Behavior: Behavior normal. Thought Content: Thought content normal. Judgment: Judgment normal. Vitals and nursing note reviewed. Vitals: Estimated body mass index is 42.07 kg/m as calculated from the following: Height as of 03/18/22: 5' 2 . Weight as of this encounter: 230 lb. BP: 122/74 Patient's last menstrual period was 09/12/2023. ASSESSMENT & PLAN ICD-10-CM 1. Rash R21 2. Second trimester Z34.92 POCT urinalysis dipstick manually resulted Return OB: Patient presents today for a routine obstetrics appointment. Patient is currently 15w1d . Patient states she is doing well but has complaints of being tired due to current . Patient has verbalizes frequent movement. Orders Placed This Encounter Procedures POCT urinalysis dipstick manually resulted Follow Up: Patient is to return to office in 4 week for routine OB appointment. Documented by PACO Freed on behalf of: PACO Freed documented in this encounter [facility] 12-25-2023 History of Present illness Narrative Reason for Appointment: Patient ID: Mikaela Ruiz is a 38 y.o. female who presents for Routine Visit Patient presents today for Return OB appointment. MEDICATIONS Current Outpatient Medications Medication Instructions lamoTRIgine (LAMICTAL) 200 mg, Oral, Daily lurasidone (LATUDA) 40 mg, Oral, Daily with breakfast metoclopramide (REGLAN) 10 mg, Oral, 3 times daily before meals, Take 1 tablet by mouth 30 minutes prior to meals 3 times daily as needed for nausea. promethazine (PHENERGAN) 12.5 mg, Oral, Every 6 hours PRN, Take 1 tablet by mouth every 6 hours as needed for nausea. venlafaxine XR (EFFEXOR XR) 37.5 mg, Oral, Daily ALLERGIES Allergies Allergen Reactions Egg-Derived Products [...] Medical History: Diagnosis Date Bipolar 1 disorder ([facility]) Social History Tobacco Use Smoking status: Not [...] SYSTEMS Review of Systems: Review of Systems All other systems reviewed and are negative. OBJECTIVE Objective: Physical Exam Constitutional: Appearance: Normal [...] nursing note reviewed. Exam conducted with a special needs child caregiver present. Vitals: Estimated body mass index is 40.79 kg/m as calculated from the following: Height as of 03/18/22: 5' 2 . Weight as of this encounter: 223 lb. BP: 122/76 Patient's last menstrual period was 09/12/2023. ASSESSMENT & PLAN ICD-10-CM 1. Second trimester Z34.92 CANCELED: POCT urinalysis dipstick manually resulted New OB: Patient presents today for 1st time obstetrics appointment with provider. Patient is currently 13w6d . Patients history has been reviewed in great detail including any potential risks. Patient stated she currently has no complaints. Expectations throughout regarding labs, ultrasounds, and appointments have been discussed with the patient in detail. It was reiterated that the patient is to drink 6-8 glasses of water a day, eat 6 small meals a day, do not consume raw or undercooked meat, and stay away from [facility]. Patient has been consulted regarding any further do's and don'ts of . Patient voiced understanding and all questions and concerns were answered. Patient complaints of nausea not helped by oral medications. Patient will have referral to [facility] for Zofran pump. Patient aware that [facility] will reach out to her to initiate therapy. Follow Up: Patient is to return in 4 weeks for routine OB appointment. Documented by Barbara Guillermo LPN on behalf of: Liza Duque PA-C documented in this encounter [facility] 04-27-2023 Evaluation note Encounter Date Diagnosis Assessment [...] condition. Mar, Sore throat (ICD-10 - J02.9) [facility] 01-10-2023 Evaluation note* Encounter Date Diagnosis [...] weeks for the cough to go away [facility] 11-07-2022 NoteIndication: Abdominal pain. Comparison: None [...] Electronically authenticated by: SURJIT FREITAS Date: 2022-03-07 20:49[facility]19[facility]2020 NoteHPI Staff This visit was conducted via phone communications from my office due to the restrictions of the COVID-19 pandemic. No physical exam was conducted due to audio only communication with the patient located at [address] [place] [address] [phone], with no one else. If it is determined that the patientshould be evaluated in person, the patient will be directed to the appropriate clinic or venue. Thepatient or their guardian verbally consented to this visit. Phone time was 15 minutes discussing health issues with counseling and coordination of care. Subjective Interval History/HPI Patient presents today for follow up via telehealth phone from [facility]. Patient started Latuda 20mg last evening [...] anxiety, # 30 tab(s), Refills(s) 2, [id number], cm, 12/23/19 10:18:00 EDT, Height/Length Dosing, 82, kg, 12/23/19 10:18:00 EDT, Weight Dosing Orders: lurasidone, 20 mg = 1 tab(s), Oral, Daily, with 350 calories; begin this dose first then progress to next dose of 40mg, X 1 week(s), # 7 tab(s), Refills(s) 0, Pharmacy: [facility]/pharmacy #[id number], 161, cm, 12/23/19 10:18:00 EDT, Height/Length Dosing, 82, kg, 12/23/19 10:... lurasidone, 40 mg = 1 tab(s), Oral, Daily, with 350 calories, # 30 tab(s), Refills(s) 1, [id number] 161, cm, 12/23/19 10:18:00 EDT, [...] (generalized anxiety disorder) Hidr (more content not included)...[facility] HospitalComment on above: Result Comment: Electronically Signed By: Carlota RODRIGUEZ CNP\.br\Date and Time Signed: 03/19/20 14:27 [id number] NoteI Staff This visit was conducted via two-way, real-time interactive video communications from my office using [employer] due to the restrictions of the COVID-19 pandemic. No physical exam was conducted other than those areas of the body visible to telecommunications with the patient located at [address] [place] [address], with no one else in attendance. If [...] Ordered: TELEHEALTH Office Visit Level 3 Est 08833 General Treatment Plan Maintain medication regimen _Improve [...] Employed, 03/18/2019 Home/Environment [employer] (more content not included)...[facility] HospitalComment on above: Result Comment: Electronically Signed By: Carlota RODRIGUEZ CNP\Date and Time Signed: 03/05/20 13:32 [id number] NoteI Staff This visit was conducted via two-way, real-time interactive video communications from my office using [employer] due to the restrictions of the COVID-19 pandemic. No physical exam was conducted other than those areas of the body visible to telecommunications with the patient located at [address] [place] [address] [phone], with no one else in attendance. If [...] anxiety, # 30 tab(s), Refills(s) 1, [id number] 161, cm, 12/23/19 10:18:00 EDT, Height/Length Dosing, 82, kg, 12/23/19 10:18:00 EDT, Weight Dosing alprazolam, 0.5 mg = 1 tab(s), Oral, TID, PRN for anxiety, # 30 tab(s), Refills(s) 1, [id number], 161, cm, 12/23/19 10:18:00 EDT, Height/Length Dosing, 82, kg, 12/23/19 10:18:00 EDT, Weight Dosing aripiprazole, See Instructions, 1.5 tab po qAM, # 30 tab(s), Refills(s) 2, Pharmacy: [facility]/pharmacy #[id number], 161, cm, 12/23/19 10:18:00 EDT, Height/Length Dosing, 82, kg, 12/23/19 10:18:00 EDT, Weight Dosing aripiprazole, See Instructions, 1 tab po qAM, # 30 tab(s), Refills(s) 5, [id number], 161, cm, 12/23/19 10:18:00 EDT, Height/Length Dosing, 82, kg, 12/23/19 10:18:00 EDT, Weight Dosing cyclobenzaprine, 10 mg = 1 tab(s), Oral, TID, PRN for spasm, # 30 tab(s), Refills(s) 1, Pharmacy: [facility] #[id number], 161, cm, 06/13/19 14:39:00 EST, Height/Length Measured, 82, kg, 06/13/19 14:39:00EST, Weight Measured cyclobenzaprine, 10 mg = 1 tab(s), Oral, TID, PRN for spasm, # 30 tab(s), Refills(s) 1, Pharmacy: [facility]/pharmacy #[id number], 161, cm, 12/23/19 10:18:00 EDT, Height/Length Dosing, 82, kg, 12/23/19 10:18:00 EDT, Weight Dosing General Treatment Plan Maintain medication regimen _Improve mood stability _Improve anxiety control _Improve social and interpersonal functioning Clinical Global Impression 62 Prognosis progressing Follow-up With When Contact Information Carlota RODRIGUEZ CNP In 4 weeks Additional Instructions: (more content not included)...[facility] HospitalComment on above:Result Comment: Electronically Signed By: Carlota RODRIGUEZ CNP\.br\Date and Time Signed: 01/27/20 22:35 [id number] NoteI Staff This visit was conducted via two-way, real-time interactive video communications from my office using [employer] due to the restrictions of the COVID-19 pandemic. No physical exam was conducted other than those areas of the body visible to telecommunications with the patient located at [address] [place] [address], with no one else in attendance. If [...] Ordered: TELEHEALTH Office Visit Level 3 Est 19948 General Treatment Plan Maintain medication regimen _Improve [...] Use:. Never Smokeless Tob (more content not included)...[facility] HospitalComment on above:Result Comment: Electronically Signed By: Carlota RODRIGUEZ CNP\.br\Date and Time Signed: 01/13/20 09:11 [id number] NoteI Staff This visit was conducted via two-way, real-time interactive video communications from my office using [employer] due to the restrictions of the COVID-19 pandemic. No physical exam was conducted other than those areas of the body visible to telecommunications with the patient located at [address] [place] [address], with no one else in attendance. If [...] anxiety, # 30 tab(s), Refills(s) 1, Pharmacy: [facility] #[id number], 161, cm, 12/23/19 10:18:00 EDT, Height/Length Dosing, 82, kg, 12/23/19 10:18:00 EDT, Weight Dosing alprazolam, 0.5 mg = 1 tab(s), Oral, TID, PRN for anxiety, # 30 tab(s), Refills(s) 1, Pharmacy: [facility] #[id number], 161, cm, 06/13/19 14:39:00 EST, Height/Length Measured, 82, kg, 06/13/19 14:39:00 EST, Weight Measured aripiprazole, See Instructions, 1 tab po qAM, # 30 tab(s), Refills(s) 0, Pharmacy: [id number], 161, cm, 12/23/19 10:18:00 [...] Allergies Bactrim Social History (more content not included)...[facility] HospitalComment on above:Result Comment: Electronically Signed By: Carlota RODRIGUEZ CNP\Date and Time Signed: 12/23/19 16:37 [id number] NoteHPI Staff This visit was conducted via two-way, real-time interactive video communications from my office using [employer] due to the restrictions of the COVID-19 pandemic. No physical exam was conducted other than those areas of the body visible to telecommunications with the patient located at [address] [place] [address], with no one else in attendance. If [...] q24hr, # 30 tab(s), Refills(s) 2, Pharmacy: [facility] #[id number],161, cm, 06/13/19 14:39:00 EST, Height/Length Measured, 82, kg, 06/13/19 14:39:00 EST, Weight Measured cyclobenzaprine, 10 mg = 1 tab(s), Oral, TID, PRN for spasm, # 30 tab(s), Refills(s) 1, Pharmacy: [facility] #[id number], 161, cm, 06/13/19 14:39:00 [...] Employment/School Employed, 03/18/2019 Home/Environment (more content not included)...[facility] HospitalComment on above:Result Comment: Electronically Signed By: Carlota RODRIGUEZ CNP\.br\Date and Time Signed: 12/02/19 16:38 EDTChief complaint+Reason for visit Narrative* Chief Complaint Nausea, diarrhea, fe zhou Reason for Visit Contact with and (guillen spected) exposure to covid-19 Sore throat [facility] Work Phone: Evaluation note* Diagnosis Onset Date Resolution Status Contact with and (suspected) exposure to covid-19 noneactive Sore throat noneactive [facility] Work Phone: Evaluation note* Diagnosis 21 weeks gestation of - Primary Obesity affecting in second trimester, unspecified obesity type [facility] Diagnosis 21 weeks gestation of - Primary Multigravida of advanced maternal age in second trimester Pyelonephritis affecting in second trimester Bipolar disease during in second trimester ([facility] [place]) Obesity affecting in second trimester, unspecified obesity type BMI 39.0-39.9,adult History of section complicating Previous delivery, unspecified as to episode of care or not applicable Vapes nicotine containing substance Current rao with 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, antepartum History of delivery, currently with history of pre-term labor [facility] Diagnosis 22 weeks gestation of Second trimester state, incidental Diabetes mellitus screening Screening for diabetes mellitus documented in this encounter [facility]* Diagnosis 24 weeks gestation of Second trimester state, incidental Flank pain Abdominal pain, unspecified site Acute cystitis with hematuria documented in this encounter [facility]* Diagnosis 24 weeks gestation of Second trimester state, incidental Acute cystitis with hematuria documented in this encounter [facility]* Diagnosis Second trimester state, incidental 26 weeks gestation of Elevated glucose tolerance test Impaired glucose tolerance test Gestational diabetes mellitus (GDM), antepartum, gestational diabetes method of control unspecified documented in this encounter [facility]Evaluation note* Diagnosis 28 weeks gestation of Third trimester state, incidental Flank pain Abdominal pain, unspecified site Acute cystitis with hematuria Urinary tract infection without hematuria, site unspecified documented in this encounter [facility] note* Diagnosis Second trimester state, incidental documented [facility]* Diagnosis Rash Rash and other nonspecific skin eruption Second trimester state, incidental documented in this encounter [facility] HealthcareEvaluation note* Diagnosis 18 weeks gestation of Well woman exam with routine gynecological exam Routine gynecological examination Screening, , for anatomic survey Encounter for anatomic survey Exposure to STD Vaginal discharge Leukorrhea, not specified as infective documented in this encounter [facility] HealthcareHistory general Narrative - Reported* Type Description Date Medical History Bipolar Surgical History appendectomy Surgical History x 3 Hospitalization History see above surgical histo ry Invieo Other InstructionsNot on filedocumented in this encounter [facility] Attachments The following attachments cannot be sent through Care Everywhere. * Preeclampsia (Lao) * Movement ([place]o) [facility] Advance Directives Advance Directive Response Recorded Date/ [...] may need to be seen by an middleware engineer if you have other events like this without definite egg exposure. Summary Purpose Family History Relationship Condition Age at Onset Recorded Date/T alo father Diabetes mellitus Unknown Hypertension Unknown Additional Source Comments INFORMATION SOURCE (unrecogn ized section and content) DATE CREATED AUTHOR 10/30/2020 [facility] DATE CREATED AUTHOR AUTHOR'S ORGANIZ ATION 04/29/2022 [facility] DATE CREATED AUTHOR AUTHOR'S ORGANIZ ATION 03/16/2024 [facility] DATE CREATED AUTHOR AUTHOR'S ORGANIZ ATION 03/24/2024 [facility] EPIC REASON FOR VISIT (unrecogniz ed section and content) Reason Comments AMA Reason Comments Routine Visit Reason Comments Follow up UTI Reason Comments Gynecologic Exam Reason Comments Routine Visit Pt present today for rash Care Teams (unrecognized sec tion and content) Team Status: Active Member Role Status Dates JAQUAN Hilton Primary Care Provider Active Team Status: Inactive Member Role Status Dates JAQUAN Hilton Primary Care Provider Active Start: August 18, 2023 End: August 18, 2023 Sanaz Lockwood APRN Attending Provider Active Start: August 18, 2023 End: August 18, 2023 Resident Medical Officer Relationship Specialty Start Date End Date No Pcp, [place] [id number] PCP - General Family Medicine 03/12/19 Resident Medical Officer Relationship Specialty Start Date End Date [place] [id number] PCP - General Family Medicine 03/12/19 Goals [...] BE BASED ON THE PRIMARY CLINICAL RECORDS. [facility] [employer] [facility]. provides no warranty or guarantee of the accuracy or completeness of information in this document.
[2024-04-22 16:52] LABS: BOX Test Reference Lab FIRELANDS
[2024-04-25 09:29] LABS: BOX Test Result NO GROWTH 2 DAYS
== END 2024-04-22 16:25 | disposition home or self-care (01) ==
PROVIDERS: PCP Nurse Practitioner Family; Visit Provider Obstetrics & Gynecology
DX: N39.0 Urinary tract infection, site not specified (principal)
CPT/HCPCS: 36415; 87086

== ENCOUNTER 2024-04-22 18:59 | Observation (INO) | payer BC, OTHER, SELFPAY ==
--- OUTSIDE RECORDS SUMMARY | 2024-04-22 19:05 | XMS_ITS | CCD ---
Author Organization [facility] hospital [facility] Care Team Providers Care Mold Holder Name Role Phone Kimberlyn Xie Primary Care [...] 24 Vomiting [facility] (20 sources) Sulfamethoxazole; 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: [SULFAMETHOXAZOLE] Drug Allergy 08-18-19 [facility] (20 sources) Trimethoprim; 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: [TRIMETHOPRIM] Drug Allergy 08-18-19 [facility] (2 sources) Fish Containing Products Propensity to adverse reactions 08-18-19 Difficulty Breathing [facility] (1 source) Sulfamethoxazole / Trimethoprim Drug Allergy 02-04-20 13 [facility] (20 sources) Sulfamethoxazole / Trimethoprim Drug Allergy 11-24-19 24 hives, Unknown SHADOW Other (20 sources) Egg-Derived Products Drug Allergy [...] (six) hours as needed for pain. Active [id number] 200 actuat albuterol 0.09 mg/actuat metered dose [...] oral tablet (1 source) alpha-Adrenergic Agonist, Uncompetitive U-nwduhn-X-aspartate Receptor Antagonist, Sigma-1 Agonist Start: 04-27-2023 take 4 tablets by mouth every twenty-four hours as needed Capmist DM 60-15-400 MG as needed Orally every 4-6 hours as needed, max 4 tablets in 24 hours for 5 days Mar, Active [id number] 0.3 ml EPINEPHrine 1 mg/ml auto-injector (2 [...] 18, 2023 12:00am take 1 capsule by [facility] every twenty-four hours in the morning [...] 03-09-2022 Episodic Other aftercare (1 source) Other tank terminal 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 (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) drug therapy; 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: [[facility] CURRENT DRUG THERAPY] Onset: 04-29-2022 Episodic Other [...] (HTRX)on 04-06-2024 ATOPOBIUM VAGINAE 0 [facility] ATOPOBIUM VAGINAE Not detected [facility] BVAB 2,3 (BACTERIAL VAGINOSIS ASSOCIATED BACTERIA 2, 3); MOBILUNCUS SPP 0 [facility] Healthcare BVAB 2,3 (BACTERIAL VAGINOSIS ASSOCIATED BACTERIA 2, 3); MOBILUNCUS SPP Not detected [facility] BRAD ALBICANS, PARAPSILOSIS, TROPICALIS 0 [facility] BRAD ALBICANS, PARAPSILOSIS, TROPICALIS Not detected [facility] BRAD GLABRATA 0 [facility] BRAD GLABRATA Not detected [facility] BRAD KRUSEI 0 [facility] BRAD KRUSEI Not detected [facility] CHLAMYDIA TRACHOMATIS 0 [facility] CHLAMYDIA TRACHOMATIS Not detected [facility] GARDNERELLA VAGINALIS 0 [facility] GARDNERELLA VAGINALIS Not detected [facility] MEGASPHAERA (TYPES 1, 2) 0 [facility] MEGASPHAERA (TYPES 1, 2) Not detected [facility] MYCOPLASMA GENITALIUM 0 [facility] MYCOPLASMA GENITALIUM Not detected N [facility] NEISSERIA GONORRHOEAE 0 [facility] NEISSERIA GONORRHOEAE Not detected N [facility] TRICHOMONAS VAGINALIS 0 [facility] TRICHOMONAS VAGINALIS Not detected N [facility] Urinalysis macro (dipstick) panel (U)on 04-03-2024 Bilirubin, UA Negative Negative - 4(70) +++ mg/dL [facility] Blood, UA Negative Negative - 50 Slick/mcL [facility] Clarity, UA Cloudy [facility] Health[facility] re Color, UA Yellow [facility] Health[facility] Glucose, UA 1+ Negative - 1999(110) ++++ mg/dL [facility] Comment on above: 100mg/dL Interpretation and review of laboratory results Abnormal [facility] Ketones, UA Negative Negative - 160(16) ++++ mg/dL [facility] Leukocytes, UA Trace Negative - 500+++ Mira/mcL [facility] Nitrite, UA Negative Negative - Positive [facility] pH, UA 6 5 - 9 [facility] Health[facility] Protein, UA Negative Negative - 1999(20) ++++ mg/dL [facility] Spec Grav, UA 1.01 1 - 1.03 [facility] Urobilinogen, UA 0.2 0.2 - 12 mg/dL [facility] Healthcar e ALL CBC WITH AUTO DIFFon BASOPHILS ABSOLUTE AUTO 0 [facility] Basophils/100 WBC (Bld) 0.1 % Low 0.2 - 2.0 % [facility] Eosinophils/100 WBC (Bld) 0.5 % Low 0.9 - 7.0 % [facility] Erythrocyte distribution width (RBC) [Ratio] 13.9 % 11.0 - 15.0 % [facility] Hematocrit (Bld) [Volume fraction] 35.2 % Low 36.0 - 48.0 % [facility] Hemoglobin (Bld) [Mass/Vol] 11.5 g/dL Low 12.0 - 16.0 g/dL [facility] IMMATURE GRANULOCYTES ABS AUTO 0.05 High [facility] Immature granulocytes/100 WBC (Bld) 0.6 % High 0.0 - 0.5 % [facility] Interpretation and review of laboratory results Abnormal [facility] LYMPHOCYTES ABSOLUTE AUTO 1.9 [facility] Lymphocytes/100 WBC (Bld) 22.9 % 20.5 - 60.0 % [facility] MCH (RBC) [Entitic mass] 30.5 pg 26.7 - 34.0 pg [facility] MCHC (RBC) [Mass/Vol] 32.7 g/dL 29.9 - 35.2 g/dL [facility] MCV (RBC) [Entitic vol] 93.4 fL 81.0 - 99.0 fL [facility] MONOCYTES ABSOLUTE AUTO 0.3 [facility] Monocytes/100 WBC (Bld) 3.3 % 1.7 - 12.0 % [facility] NEUTROPHILS ABSOLUTE AUTO 6.1 [facility] Neutrophils/100 WBC (Bld) 72.6 % 43.0 - 75.0 % [facility] Platelet mean volume (Bld) [Entitic vol] 10.5 fL 9.5 - 13.5 fL [facility] TBH EO # 0 [facility] PL[facility] [address] [facility] e TB RBC 3.77 Low [facility] TB WBC 8.4 [facility] Healthcar e [facility] Health[facility] e Urinalysis macro (dipstick) panel (U)on 03-21-2024 Bilirubin, UA Negative Negative - 4(70) +++ mg/dL [facility] Blood, UA Negative Negative - 50 Slick/mcL [facility] Clarity, UA [facility] re Color, UA Yellow [facility] e Glucose, UA Positive Negative - 1999(110) ++++ mg/dL [facility] Comment on above: 500 mg Interpretation and review of laboratory results Abnormal [facility] Ketones, UA Negative Negative - 160(16) ++++ mg/dL [facility] Leukocytes, UA Negative Negative - 500+++ Mira/mcL [facility] Nitrite, UA Negative Negative - Positive [facility] pH, UA 6.5 5 - 9 [facility] e Protein, UA Negative Negative - 1999(20) ++++ mg/dL [facility] Spec Grav, UA 1.025 1 - 1.03 [facility] Urobilinogen, UA 0.2 0.2 - 12 mg/dL [facility] Urinalysis macro (dipstick) panel (U)on 03-11-2024 Bilirubin, UA Negative Negative - 4(70) +++ mg/dL [facility] Blood, UA Positive Negative - 50 Slick/mcL [facility] Comment on above: large Clarity, UA Clear [facility]ca re Color, UA Straw [facility] Healthcar e Glucose, UA Negative Negative - 1999(110) ++++ mg/dL [facility] Interpretation and review of laboratory results Abnormal [facility] Ketones, UA Negative Negative - 160(16) ++++ mg/dL [facility] Leukocytes, UA Negative Negative - 500+++ Mira/mcL [facility] Nitrite, UA Negative Negative - Positive [facility] pH, UA 6 5 - 9 [facility] e Protein, UA Negative Negative - 1999(20) ++++ mg/dL [facility] Spec Grav, UA 1.02 1 - 1.03 [facility] Urobilinogen, UA 0.2 0.2 - 12 mg/dL [facility] Healthcar e TBH UA (CLEAN/CATCH) EXECUTIVE STAFF ASSISTANT/CHUY RO IF IND.on 03-06-2024 BILIRUBIN URINE COLOR INTERFERENCE Abnormal NEGATIVE N [facility] BLOOD URINE COLOR INTERFERENCE Abnormal NEGATIVE [facility] Clarity (U) CLEAR CLEAR [facility] Health[facility] re Color (U) DK. RED YELLOW [facility] Healthcar e GLUCOSE URINE UA COLOR INTERFERENCE Abnormal NEGAT CARMELITA mg/dL [facility] Interpretation and review of laboratory results Abnormal [facility] Ketones Ql (U) COLOR INTERFERENCE Abnormal NEGATIV E mg/dL [facility] Leukocyte esterase Test strip Ql (U) COLOR INTERFERENCE Abnormal NEGATIVE [facility] care NITRITE URINE COLOR INTERFERENCE Abnormal NEGATIVE [facility] PH URINE COLOR INTERFERENCE Abnormal 5.0 - 9.0 [facility]althcare PROTEIN URINE COLOR INTERFERENCE Abnormal NEG/TRAC E mg/dL [facility] SPECIFIC GRAVITY URINE 1.020 1.005 - 1.025 [facility] URINE MICROSCOPIC INDICATED YES [facility] UROBILINOGEN URINE COLOR INTERFERENCE Abnormal 0.2 - 1.0 EU/dL [facility] Healthcar e Urinalysis macro (dipstick) panel (U)on 03-06-2024 Bilirubin, UA Positive Negative - 4(70) +++ mg/dL [facility] Blood, UA Positive Negative - 50 Slick/mcL [facility] Comment on above: large Clarity, UA Clear [facility] Healthca re Color, UA Dark [facility] Glucose, UA Negative Negative - 1999(110) ++++ mg/dL [facility] Interpretation and review of laboratory results Abnormal [facility] Ketones, UA Negative Negative - 160(16) ++++ mg/dL [facility] Leukocytes, UA Trace Negative - 500+++ Mira/mcL [facility] Nitrite, UA Positive Negative - Positive [facility] pH, UA 6 5 - 9 [facility] Healthcar e Protein, UA Positive Negative - 1999(20) ++++ mg/dL [facility] Comment on above: 100 Spec Grav, UA 1.02 1 - 1.03 [facility] Urobilinogen, UA 1.0 0.2 - 12 mg/dL [facility] Urinalysis macro (dipstick) panel (U)on 02-21-2024 Bilirubin, UA Negative Negative - 4(70) +++ mg/dL [facility] Blood, UA Negative Negative - 50 Slick/mcL [facility] Clarity, UA [facility] re Color, UA Yellow [facility] e Glucose, UA Negative Negative - 1999(110) ++++ mg/dL [facility] Interpretation and review of laboratory results Abnormal [facility] Ketones, UA Negative Negative - 160(16) ++++ mg/dL [facility] Leukocytes, UA Trace Negative - 500+++ Mira/mcL [facility] Nitrite, UA Negative Negative - Positive [facility] pH, UA 5.5 5 - 9 [facility] Healthcar e Protein, UA Negative Negative - 1999(20) ++++ mg/dL [facility] Spec Grav, UA 1.01 1 - 1.03 [facility] Urobilinogen, UA 0.2 0.2 - 12 mg/dL [facility] CBC AND AUTO DIFFon 02-09-20 ABSOLUTE BASOPHIL 0.0 X10E9/L Normal 0.0-0.2 [facility] Comment on above: Performed By: #### 3 2133-1, CMP, CBCA #### [facility] ([id number]) [address], [address] [place] [address] ABSOLUTE NEUTROPHIL 5.4 X10E9/L Normal 1.5-6.6 [facility] Comment on above: Performed By: #### 3 2132-1, CMP, CBCA #### [facility] ([id number]) [address], [address] [place] [address] Basophils/100 WBC (Bld) 0.2 % Normal [facility] Comment on above: Performed By: #### 3 2132-1, CMP, CBCA #### [facility] ([id number]) [address], [address] [place] [address] Eosinophils (Bld) [#/Vol] 0.1 10*3/uL Normal 0.0-0.4 [facility] Comment on above: Performed By: #### 3 2132-1, CMP, CBCA #### [facility] ([id number]) [address], [address] [place] [address] Eosinophils/100 WBC (Bld) 0.9 % Normal [facility] Comment on above: Performed By: #### 3 2132-1, CMP, CBCA #### [facility] ([id number]) [address], [address] [place] [address] Erythrocyte distribution width (RBC) [Ratio] 14.3 % Normal 11.5-15.0 [facility] Comment on above: Performed By: #### 3 2132-1, CMP, CBCA #### [facility] ([id number]) [address], [address] [place] [address] Hematocrit (Bld) [Volume fraction] 30.3 % Low 35-47 [facility] Comment on above: Performed By: #### 3 2132-1, CMP, CBCA #### [facility] ([id number]) [address], [address] [place] [address] Hemoglobin (Bld) [Mass/Vol] 10.3 g/dL Low 11.7-15.5 [facility] Comment on above: Performed By: #### 3 2133-1, CMP, CBCA #### [facility] ([id number]) [address], [address] [place] [address] Lymphocytes (Bld) [#/Vol] 1.7 10*3/uL Normal 1.0-3.5 [facility] Comment on above: Performed By: #### 3 2132-1, CMP, CBCA #### [facility] ([id number]) [address], [facility] [address] [place] [address] Lymphocytes/100 WBC (Bld) 22.0 % Normal [facility] Comment on above: Performed By: #### 3 2132-1, CMP, CBCA #### [facility] ([id number]) [address], [facility] [address] [place] [address] MCH (RBC) [Entitic mass] 31.3 pg Normal 27-34 [facility] Comment on above: Performed By: #### 3 2132-1, CMP, CBCA #### [facility] ([id number]) [address], [address] [place] [address] MCHC (RBC) [Mass/Vol] 34.0 g/dL Normal 32-36 [facility] Comment on above: Performed By: #### 3 2132-1, CMP, CBCA #### [facility] ([id number]) [address], [facility] [address] [place] [address] MCV (RBC) [Entitic vol] 92 fL Normal 80-100 [facility] Comment on above: Performed By: #### 3 2132-1, CMP, CBCA #### [facility] ([id number]) [address] [address] [place] [address] Monocytes (Bld) [#/Vol] 0.5 10*3/uL Normal 0-0.9 [facility] Comment on above: Performed By: #### 3 2132-1, CMP, CBCA #### [facility] ([id number]) [address], [address] [place] [address] Monocytes/100 WBC (Bld) 7.0 % Normal [facility] Comment on above: Performed By: #### 3 2132-1, CMP, CBCA #### [facility] ([id number]) [address], [address] [place] [address] Neutrophils/100 WBC (Bld) 69.9 % Normal [facility] Comment on above: Performed By: #### 3 2132-1, CMP, CBCA #### [facility] ([id number]) [address], [address] [place] [address] Platelet mean volume (Bld) [Entitic vol] 8.8 fL Normal 7-12 [facility] Comment on above: Performed By: #### 3 2132-1, CMP, CBCA #### [facility] ([id number]) [address], [address] [place] [address] Platelets (Bld) [#/Vol] 259 10*3/uL Normal 150-450 [facility] Comment on above: Performed By: #### 3 2132-1, CMP, CBCA #### [facility] ([id number]) [address], [address] [place] [address] RBC COUNT 3.29 X10E12/L Low 3.80-5.20 [facility] Comment on above: Performed By: #### 3 2132-1, CMP, CBCA #### [facility] ([id number]) [address], [address] [place] [address] WBC (Bld) [#/Vol] 7.7 10*3/uL Normal 4.0-11.0 [facility] Comment on above: Performed By: #### 3 2132-1, CMP, CBCA #### [facility] ([id number]) [address], [address] [place], [place] [address] COMPREHENSIVE METABOLIC PANE Paco 02-09-2024 Albumin [Mass/Vol] 2.9 g/dL Low 3.2-5.3 [facility] Comment on above: Performed By: #### 3 2132-1, CMP, CBCA #### [facility] ([id number]) [address], [address] [place], [place] [address] ALP [Catalytic activity/Vol] 118 U/L Normal 39-130 [facility] Comment on above: Performed By: #### 3 2132-1, CMP, CBCA #### [facility] ([id number]) [address], [address] [place], [place] [address] ALT [Catalytic activity/Vol] 6 U/L Normal 0-31 [facility] Comment on above: Performed By: #### 3 2132-1, CMP, CBCA #### [facility] ([id number]) [address], [address] [place], [place] [address] Anion gap [Moles/Vol] 10 mmol/L Normal 5-15 [facility] Comment on above: Performed By: #### 3 2132-1, CMP, CBCA #### [facility] ([id number]) [address], [address] [place], [place] [address] AST [Catalytic activity/Vol] 9 U/L Normal 0-41 [facility] Comment on above: Performed By: #### 3 2132-1, CMP, CBCA #### [facility] ([id number]) [address], [address] [place], [place] [address] Bilirubin [Mass/Vol] 0.4 mg/dL Normal 0.3-1.2 [facility] Comment on above: Performed By: #### 3 2132-1, CMP, CBCA #### [facility] ([id number]) [address], [address] [place] [address] Calcium [Mass/Vol] 8.5 mg/dL Normal 8.5-10.5 [facility] Comment on above: Performed By: #### 3 2132-1, IZAIAH, CBCA #### [facility] ([id number]) [address], [address] [place] [address] Chloride [Moles/Vol] 105 mmol/L Normal 98-109 [facility] Comment on above: Performed By: #### 3 2132-1, CMP, CBCA #### [facility] ([id number]) [address], [address] [place] [address] CO2 [Moles/Vol] 22 mmol/L Normal 22-32 [facility] Comment on above: Performed By: #### 3 2132-1, CMP, CBCA #### [facility] ([id number]) [address], [address] [place] [address] Creatinine [Mass/Vol] 0.45 mg/dL Normal 0.40-1.00 [facility] Comment on above: Result Comment: METH OD TRACEABLE TO IDMS STANDARD Performed By: #### 3 2132-, IZAIAH, CBCA #### [facility] ([id number]) [address], [address] [place] [address] eGFR (CKD-EPI) NON-RACE DEPENDENT >90 Normal >59 [facility] Comment on above: Result Comment: Reported eGFR is based on the CKD-EPI 2020 equation that does not use a race coefficient. Performed By: #### 3 2132-1, CMP, CBCA #### [facility] ([id number]) [address], [address] [place] [address] Glucose [Mass/Vol] 84 mg/dL Normal 65-99 [facility] Comment on above: Performed By: #### 3 2132-, CMP, CBCA #### [facility] ([id number]) [address], [address] [place] [address] Potassium [Moles/Vol] 3.7 mmol/L Normal 3.5-5.0 [facility] Comment on above: Performed By: #### 3 2132-1, CMP, CBCA #### [facility] ([id number]) [address], [address] [place] [address] Protein [Mass/Vol] 6.0 g/dL Normal 6.0-8.0 [facility] Comment on above: Performed By: #### 3 2132-1, CMP, CBCA #### [facility] ([id number]) [address], [address] [place] [address] Sodium [Moles/Vol] 137 mmol/L Normal 134-146 [facility] Comment on above: Performed By: #### 3 2132-1, CMP, CBCA #### [facility] ([id number]) [address], [address] [place] [address] Urea nitrogen [Mass/Vol] 5 mg/dL Normal 5-23 [facility] Comment on above: Performed By: #### 3 2132-1, CMP, CBCA #### [facility] ([id number]) [address], [address] [place] [address] MAGNESIUMon 02-09-2024 Magnesium [Mass/Vol] 1.6 mg/dL Low 1.8-2.6 [facility] Comment on above: Performed By: #### 3 2132-1, CMP, CBCA #### [facility] ([id number]) [address], [address] [place] [address] PHOSPHORUSon 02-09-2024 Phosphate [Mass/Vol] 4.5 mg/dL Normal 2.4-4.9 [facility] Comment on above: Performed By: #### 3 2132-1, CMP, CBCA #### [facility] ([id number]) [address], [address] [place] [address] US RETROPERITONEAL LIMITEDon 02-09-2024 US RETROPERITONEAL LIMITED [...] Andrade MD on 02/09/2024 10:14 AM Normal [facility] BLOOD CULTUREon 02-08-2024 Bacteria identified Aer cx Nom (Bld) SPECIMEN NOTES SUBOPTIMAL VOLUME OF BLOOD COLLECTED, RESULTS MAY BE AFFECTED. CULTURE RESULTS NO GROWTH 5 DAYS Normal [facility] Comment on above: Performed By: #### 3 2132-05, CMP, CBCA #### [facility] ([id number]) [address], [address] [place] [address] Bacteria identified Aer cx Nom (Bld) SPECIMEN NOTES SUBOPTIMAL VOLUME OF BLOOD COLLECTED, RESULTS MAY BE AFFECTED. CULTURE RESULTS NO GROWTH 5 DAYS Normal [facility] Comment on above: Performed By: #### 1 7928-3 #### [facility] ([id number]) [address], [address] [place] [address] CBC AND AUTO DIFFon 02-08-20 24 ABSOLUTE BASOPHIL 0.0 X10E9/L Normal 0.0-0.2 [facility] Comment on above: Performed By: #### 3 2132-, CMP, CBCA #### [facility] ([id number]) [address], [address] [place] [address] ABSOLUTE NEUTROPHIL 9.5 X10E9/L High 1.5-6.6 [facility] Comment on above: Performed By: #### 3 2132-1, CMP, CBCA #### [facility] ([id number]) [address], [address] [place] [address] Basophils/100 WBC (Bld) 0.0 % Normal [facility] Comment on above: Performed By: #### 3 2132-1, CMP, CBCA #### [facility] ([id number]) [address] [address] [place] [address] Eosinophils (Bld) [#/Vol] 0.0 10*3/uL Normal 0.0-0.4 [facility] Comment on above: Performed By: #### 3 2132-1, CMP, CBCA #### [facility] ([id number]) [address], [address] [place] [address] Eosinophils/100 WBC (Bld) 0.0 % Normal [facility] Comment on above: Performed By: #### 3 1, CMP, CBCA #### [facility] ([id number]) [address], [facility] [address] [place] [address] Erythrocyte distribution width (RBC) [Ratio] 14.5 % Normal 11.5-15.0 [facility] Comment on above: Performed By: #### 3 2132-1, CMP, CBCA #### [facility] ([id number]) [address], [facility] [address] [place] [address] Hematocrit (Bld) [Volume fraction] 31.3 % Low 35-47 [facility] Comment on above: Performed By: #### 3 2132-1, CMP, CBCA #### [facility] ([id number]) [address], [address] [place] [address] Hemoglobin (Bld) [Mass/Vol] 10.6 g/dL Low 11.7-15.5 [facility] Comment on above: Performed By: #### 3 2132-1, CMP, CBCA #### [facility] ([id number]) [address], [address] [place] [address] Lymphocytes (Bld) [#/Vol] 1.1 10*3/uL Normal 1.0-3.5 [facility] Comment on above: Performed By: #### 3 2132-1, CMP, CBCA #### [facility] ([id number]) [address], [facility] [address] [place] [address] Lymphocytes/100 WBC (Bld) 9.4 % Normal [facility] Comment on above: Performed By: #### 3 2132-1, CMP, CBCA #### [facility] ([id number]) [address], [address] [place] [address] MCH (RBC) [Entitic mass] 30.8 pg Normal 27-34 [facility] Comment on above: Performed By: #### 3 2132-1, CMP, CBCA #### [facility] ([id number]) [address], [address] [place] [address] MCHC (RBC) [Mass/Vol] 33.9 g/dL Normal 32-36 [facility] Comment on above: Performed By: #### 3 2132-1, CMP, CBCA #### [facility] ([id number]) [address], [address] [place] [address] MCV (RBC) [Entitic vol] 91 fL Normal 80-100 [facility] Comment on above: Performed By: #### 3 2132-1, CMP, CBCA #### [facility] ([id number]) [address], [address] [place] [address] Monocytes (Bld) [#/Vol] 0.9 10*3/uL Normal 0-0.9 [facility] Comment on above: Performed By: #### 3 2132-1, CMP, CBCA #### [facility] ([id number]) [address], [address] [place] [address] Monocytes/100 WBC (Bld) 8.2 % Normal [facility] Comment on above: Performed By: #### 3 2132-1, CMP, CBCA #### [facility] ([id number]) [address], [address] [place] [address] Neutrophils/100 WBC (Bld) 82.4 % Normal [facility] Comment on above: Performed By: #### 3 2132-1, CMP, CBCA #### [facility] ([id number]) [address], [address] [place] [address] Platelet mean volume (Bld) [Entitic vol] 8.5 fL Normal 7-12 [facility] Comment on above: Performed By: #### 3 2132-1, CMP, CBCA #### [facility] ([id number]) [address], [address] [place] [address] Platelets (Bld) [#/Vol] 246 10*3/uL Normal 150-450 [facility] Comment on above: Performed By: #### 3 2132-1, CMP, CBCA #### [facility] ([id number]) [address], [address] [place] [address] RBC COUNT 3.44 X10E12/L Low 3.80-5.20 [facility] Comment on above: Performed By: #### 3 2132-1, CMP, CBCA #### [facility] ([id number]) [address], [address] [place] [address] WBC (Bld) [#/Vol] 11.5 10*3/uL High 4.0-11.0 [facility] Comment on above: Performed By: #### 3 3-1, CMP, CBCA #### [facility] ([id number]) [address], [address] [place], [place] [address] COMPREHENSIVE METABOLIC PANE [facility] 02-08-2024 Albumin [Mass/Vol] 3.1 g/dL Low 3.2-5.3 [facility] Comment on above: Performed By: #### 3 2132-1, CMP, CBCA #### [facility] ([id number]) [address], [address] [place], [place] [address] ALP [Catalytic activity/Vol] 100 U/L Normal 39-130 [facility] Comment on above: Performed By: #### 3 2132-1, CMP, CBCA #### [facility] ([id number]) [address], [address] [place], [place] [address] ALT [Catalytic activity/Vol] 7 U/L Normal 0-31 [facility] Comment on above: Performed By: #### 3 2132-1, CMP, CBCA #### [facility] ([id number]) [address], [address] [place], [place] [address] Anion gap [Moles/Vol] 12 mmol/L Normal 5-15 [facility] Comment on above: Performed By: #### 3 2132-1, CMP, CBCA #### [facility] ([id number]) [address], [address] [place], [place] [address] AST [Catalytic activity/Vol] 8 U/L Normal 0-41 [facility] Comment on above: Performed By: #### 3 2132-1, CMP, CBCA #### [facility] ([id number]) [address], [address] [place], [place] [address] Bilirubin [Mass/Vol] 0.5 mg/dL Normal 0.3-1.2 [facility] Comment on above: Performed By: #### 3 2132-1, CMP, CBCA #### [facility] ([id number]) [address], [address] [place] [address] Calcium [Mass/Vol] 8.3 mg/dL Low 8.5-10.5 [facility] Comment on above: Performed By: #### 3 2132-1, CMP, CBCA #### [facility] ([id number]) [address], [address] [place] [address] Chloride [Moles/Vol] 104 mmol/L Normal 98-109 [facility] Comment on above: Performed By: #### 3 2132-1, CMP, CBCA #### [facility] ([id number]) [address], [facility] [address] [place] [address] CO2 [Moles/Vol] 20 mmol/L Low 22-32 [facility] Comment on above: Performed By: #### 3 2132-1, CMP, CBCA #### [facility] ([id number]) [address], [address] [place] [address] Creatinine [Mass/Vol] 0.53 mg/dL Normal 0.40-1.00 [facility] Comment on above: Result Comment: METH OD TRACEABLE TO IDMS STANDARD Performed By: #### 3 1, CMP, CBCA #### [facility] ([id number]) [address], [address] [place] [address] eGFR (CKD-EPI) NON-RACE DEPENDENT >90 Normal >59 [facility] Comment on above: Result Comment: Reported eGFR is based on the CKD-EPI 2020 equation that does not use a race coefficient. Performed By: #### 3 2132-1, CMP, CBCA #### [facility] ([id number]) [address], [address] [place] [address] Glucose [Mass/Vol] 115 mg/dL High 65-99 [facility] Comment on above: Performed By: #### 3 2133-1, CMP, CBCA #### [facility] ([id number]) [address], [address] [place] [address] Potassium [Moles/Vol] 3.6 mmol/L Normal 3.5-5.0 [facility] Comment on above: Performed By: #### 3 2132-1, CMP, CBCA #### [facility] ([id number]) [address], [address] [place] [address] Protein [Mass/Vol] 6.1 g/dL Normal 6.0-8.0 [facility] Comment on above: Performed By: #### 3 2132-1, CMP, CBCA #### [facility] ([id number]) [address], [address] [place] [address] Sodium [Moles/Vol] 136 mmol/L Normal 134-146 [facility] Comment on above: Performed By: #### 3 2132-1, CMP, CBCA #### [facility] ([id number]) [address], [address] [place] [address] Urea nitrogen [Mass/Vol] 3 mg/dL Low 5-23 [facility] Comment on above: Performed By: #### 3 2132-1, CMP, CBCA #### [facility] ([id number]) [address], [address] [place] [address] DRUG SCREEN, URINEon 024 AMPHETAMINE/METHAMP Negative Normal NEG [facility] Comment on above: Result Comment: AMPH /METH screening cut off = 1000 ng/mL Performed By: #### D GUILLEN #### [facility] ([id number]) [address], [address] [place] [address] BARBITURATES Negative Normal NEG [facility] Comment on above: Result Comment: Megan iturates screening cut off value = 200 ng/mL Performed By: #### D GUILLEN #### [facility] ([id number]) [address], [address] [place] [address] BENZODIAZEPINES Negative Normal NEG [facility] Comment on above: Result Comment: Giorgio odiazepines screening cut off value = 200 ng/mL Performed By: #### D GUILLEN #### [facility] ([id number]) [address], [address] [place] [address] CANNABINOIDS Negative Normal NEG [facility] Comment on above: Result Comment: Elsie abinoids/THC screening cut off value = 50 ng/mL Performed By: #### D GUILLEN #### [facility] ([id number]) [address], [address] [place] [address] COCAINE METABOLITE Negative Normal NEG [facility] Comment on above: Result Comment: Coca ine screening cut off value = 300 ng/mL Performed By: #### D GUILLEN #### [facility] ([id number]) [address], [address] [place] [address] ECSTASY Negative Normal [facility] Comment on above: Result Comment: Ecst asy screening cut off value = 500 ng/mL This report is intended for use in clinical monitoring or management of patients. Performed By: #### D GUILLEN #### [facility] ([id number]) [address], [address] [place] [address] METHADONE Negative Normal NEG [facility] Comment on above: Result Comment: Meth adone screening cut off value = 300 ng/mL. Performed By: #### D GUILLEN #### [facility] ([id number]) [address], [address] [place] [address] OPIATES Negative Normal NEG [facility] Comment on above: Result Comment: Opia joey screening cut off value = 300 ng/mL NOTE: This test is used for the detection of codeine, hydrocodone (>1000 ng/mL), morphine and hydromorphone (>900 ng/mL) in urine. Performed By: #### D GUILLEN #### [facility] ([id number]) [address], [address] [place] [address] OXYCODONE Negative Normal NEG [facility] Comment on above: Result Comment: Oxyc odone screening cut off value = 300 ng/mL NOTE: This test is used for the detection of oxycodone and oxymorphone in urine. Performed By: #### D GUILLEN #### [facility] ([id number]) [address], [address] [place] [address] PHENCYCLIDINE Negative Normal NEG [facility] Comment on above: Result Comment: Phen cyclidine screening cut off value = 25 ng/mL Performed By: #### D GUILLEN #### [facility] ([id number]) [address], [address] [place] [address] Glucose Glucometer (BldC) [M ass/Vol]on 02-08-2024 Glucose [Mass/Vol] 107 mg/dL High 65-99 [facility] Lactate (P melvin) [Moles/Vol]o n 02-08-2024 LACTATE W/REFLEX 1.0 mmol/L Normal 0.4-2.0 [facility] Comment on above: Result Comment: Result did not trigger repeat Lactate, re-order if needed. Performed By: #### 7 5241-0, 96312-4 #### [facility] ([id number]) [address], [address] [place] [address] LACTATE W/REFLEX 0.8 mmol/L Normal 0.4-2.0 [facility] Comment on above: Result Comment: Result did not trigger repeat Lactate, re-order if needed. Performed By: #### 3 2133-1, CMP, CBCA #### [facility] ([id number]) [address], [address] [place] [address] Procalcitonin IA [Mass/Vol]o n 02-08-2024 PROCALCITONIN 0.74 ng/mL High <0.05 [facility] Comment on above: Result Comment: NOTE <0.50 ng/mL - Low risk of severe sepsis and/or septic shock. <2.00 ng/mL - Recommend retesting within 6-24 hours. >2.00 ng/mL - High risk of sepsis and/or septic shock. Performed By: #### 7 5241-0, 47812-7 #### [facility] ([id number]) [address], [address] [place] [address] URINALYSISon 02-08-2024 Bilirubin Ql (U) Negative Normal NEG [facility] Comment on above: Performed By: #### U A #### [facility] ([id number]) [address], [address] [place] [address] BLOOD/HGB Small Abnormal NEG [facility] Comment on above: Performed By: #### U A #### [facility] ([id number]) [address], [address] [place] [address] Color (U) YELLOW Normal YELLOW [facility] Comment on above: Performed By: #### U A #### [facility] ([id number]) [address], [address] [place] [address] Glucose Ql (U) Negative Normal NEG [facility] Comment on above: Performed By: #### U A #### [facility] ([id number]) [address], [address] [place] [address] Ketones Ql (U) 20 mg/dL Abnormal NEG [facility] Comment on above: Performed By: #### U A #### [facility] ([id number]) [address], [address] [place] [address] Leukocyte esterase Test strip Ql (U) Negative Normal NEG [facility] Comment on above: Performed By: #### U A #### [facility] ([id number]) [address], [address] [place] [address] MUCOUS PRESENT Abnormal NONE [facility] Comment on above: Performed By: #### U A #### [facility] ([id number]) [address] [address] [place] [address] Nitrite Ql (U) Negative Normal NEG [facility] Comment on above: Performed By: #### U A #### [facility] ([id number]) [address] [place] [address] pH (U) 8.0 [pH] Normal 5.0-8.5 [facility] Comment on above: Performed By: #### U A #### [facility] ([id number]) [address] [facility] [address] [place] [address] Protein Ql (U) Trace Abnormal NEG [facility] Comment on above: Performed By: #### U A #### [facility] ([id number]) [address] [facility], [address] [place] [address] R.B.CELLS 16 /hpf High 0-5 [facility] Comment on above: Performed By: #### U A #### [facility] ([id number]) [address] [facility] [address] [place] [address] Specific gravity (U) [Rel density] 1.012 Normal 1.003-1.035 [facility] Comment on above: Performed By: #### U A #### [facility] ([id number]) [address] [address] [place] [address] SQUAMOUS EPITHELIUM 1 /hpf Normal 0-5 [facility] Comment on above: Performed By: #### U A #### [facility] ([id number]) [address] [facility] [place] [address] TRANSITIONAL EPITH <1 High 0 [facility] Comment on above: Performed By: #### U A #### [facility] ([id number]) [address] [place] [address] TURBIDITY CLEAR Normal CLEAR [facility] Comment on above: Performed By: #### U A #### [facility] ([id number]) [address], [address] [address] Urobilinogen Qn (U) 2 {Blanca'U}/dL High <1.1 [facility] Comment on above: Performed By: #### U A #### [facility] ([id number]) [address], [address] [place] [address] W.B.CELLS 2 /hpf Normal 0-5 [facility] Comment on above: Performed By: #### U A #### [facility] ([id number]) [address], [address] [address] URINE CULTUREon 02-08-2024 Bacteria identified Cx Nom (U) CULTURE RESULTS NO GROWTH AT <1000 CFU/mL Normal [facility] Comment on above: Performed By: #### 3 3-1, CMP, CBCA #### [facility] ([id number]) [address], [address] [address] XR CHEST 1 VWon 02-08-2024 XR CHEST [...] Rubi MD on 02/08/2024 9:35 AM Normal [facility] URETHRITIS/DISCHARGE PLUS VA GINITIS (HTRX)on 01-27-2024 ATOPOBIUM VAGINAE 0.000 [facility] ATOPOBIUM VAGINAE Not detected [facility] BVAB 2,3 (BACTERIAL VAGINOSIS ASSOCIATED BACTERIA 2, 3); MOBILUNCUS SPP 0.000 [facility] Healthcare BVAB 2,3 (BACTERIAL VAGINOSIS ASSOCIATED BACTERIA [...] TRICHOMONAS VAGINALIS Not detected [facility] AFP, SERUM, OPEN SPINA BIFID Aon 01-26-2024 AFP MOM 1.08 . [facility] AFP VALUE 35.9 ng/mL . [facility] COMMENT: Comment . [facility] Comment on above: Nette Holley , Ph.D., [facility] Director References: Available Upon Request. Multiples Of Median Cutoffs For AFP Elevations Rao 2.5 Black 2.8 IDD 2.0 Twins 4.5 Abbreviation Definitions IDD - Insulin Dep Diabetes OSBR - Open Spina Bifida Risk For further inquiries contact [employer] at [phone]. This test was developed and its performance characteristics determined by [employer]. It has not been cleared or approved by the Food and Drug Administration. Performed at: [facility] [address], [place] [id number] [place] Worker: Ashley Duggan [facility], Phone: [phone] GEST. AGE ON COLLECTION DATE 17.9 . weeks [facility] GESTAT. AGE BASED ON As provided . [facility] Comment on above: Recalculations are n ot recommended when gestational dating by LMP and ultrasound are within 10 days. INSULIN DEP DIABETES No . [facility] INTERPRETATION Comment . SANDRITA Jeffery hcare [...] Customer Services to discuss available options. The [employer] recommends amniocentesis be offered to women age 35 and older. [age] [facility] MULTIPLE GESTATION No . [facility] H ealthcare OSBR RISK 1 [place] 9540 . [facility] Jeffery evans RACE Other . [facility] [employer] RESULTS Report . [facility] [employer] TEST RESULTS: Negative . [facility] WEIGHT 225 . lbs [facility] PREGNANY N N ULTRASOUND [id number] [phone] N 1 Y 225 N N N N N White/ [facility] [employer] [facility] Urinalysis macro (dipstick) panel (U)on 01-24-2024 Bilirubin, UA Negative Negative - 4(70) +++ mg/dL [facility] Blood, UA Negative Negative - 50 Slick/mcL [facility] Clarity, UA [facility] re Color, UA Yellow [facility] [employer] Glucose, UA Negative Negative - 1999(110) ++++ mg/dL [facility] Interpretation and review of laboratory results Abnormal [facility] Ketones, UA Negative Negative - 160(16) ++++ mg/dL [facility] Leukocytes, UA Trace Negative - 500+++ Mira/mcL [facility] Nitrite, UA Negative Negative - Positive [facility] pH, UA 6.5 5 - 9 [facility] e Protein, UA Negative Negative - 1999(20) ++++ mg/dL [facility] Spec Grav, UA 1.020 1 - 1.03 [facility] Urobilinogen, UA 1.0 0.2 - 12 mg/dL [facility] Urinalysis macro (dipstick) panel (U)on 01-03-2024 Bilirubin, UA Negative Negative - 4(70) +++ mg/dL [facility] Blood, UA Positive Negative - 50 Slick/mcL [facility] Comment on above: trace Clarity, UA Clear [facility] re Color, UA Yellow [facility] Glucose, UA Negative Negative - 1999(110) ++++ mg/dL [facility] Interpretation and review of laboratory results Abnormal [facility] Ketones, UA Negative Negative - 160(16) ++++ mg/dL [facility] Leukocytes, UA Positive Negative - 500+++ Mira/mcL [facility] Comment on above: small Nitrite, UA Negative Negative - Positive [facility] pH, UA 6.0 5 - 9 [facility] Protein, UA Negative Negative - 1999(20) ++++ mg/dL [facility] Spec Grav, UA 1.020 1 - 1.03 [facility] Urobilinogen, UA 0.2 0.2 - 12 mg/dL [facility] Health[facility] No Panel InformationOrdered By: Sanaz Lockwood on 08-18-2023 Quick Strep (POC) [facility] COVID + FLU Quick Testingon 04-27-2023 SARS-CoV-2 (COVID-19) RNA J LUIS+probe Ql (Unsp spec) Negative [facility] [employer] Other COVID + FLU Quick Testing Negative [facility] [employer] Other Quick Strepon 04-27-2023 S. pyogenes Org specific cx Ql (Throat) Negative [facility] [employer] Other Quick Strep [facility] [employer] Other COVID/FLU/RSV RT-PCRon 05-10 SARS-CoV-2 (COVID-19) RNA J LUIS+probe Ql (Unsp spec) Negative [facility] Other COVID/FLU/RSV RT-PCR Positive [employer] Other COVID/FLU/RSV RT-PCR Negative [employer] Other CBC AUTO DIFFon 04-27-2022 BASO # 0.0 103/ul Normal 0.0-0.1 [facility] Comment on above: Performed By: #### C BC #### [facility] [address] [place] [address] Dr. Dee Humphrey Basophils/100 WBC (Bld) 0.2 % Normal 0.2-2.0 [facility] Comment on above: Performed By: #### C BC #### [facility] [address] [place] [address] Dr. Dee Humphrey EO # 0.1 103/ul Normal 0.0-0.7 [facility] Comment on above: Performed By: #### C BC #### [facility] [address] [place] [address] Dr. Dee Humphrey Eosinophils/100 WBC (Bld) 0.6 % Critically low 0.9-7.0 [facility] Comment on above: Performed By: #### C BC #### [facility] [address] [place] [address] Dr. Dee Humphrey Erythrocyte distribution width (RBC) [Ratio] 14.1 % Normal 11.0-15.0 [facility] Comment on above: Performed By: #### C BC #### [facility] [address] [place] [address] Dr. Dee Humphrey Hematocrit (Bld) [Volume fraction] 37.1 % Normal 36.0-48.0 [facility] Comment on above: Performed By: #### C BC #### [facility] [address] [place] [address] Dr. Dee Humphrey Hemoglobin (Bld) [Mass/Vol] 12.4 g/dL Normal 12.0-16.0 [facility] Comment on above: Performed By: #### C BC #### [facility] [address] [place] [address] Dr. Dee Humphrey IG # 0.06 10e3/ul Critically high 0.00-0.03 [facility] Comment on above: Performed By: #### C BC #### [facility] [address] [place] [address] Dr. Dee Humphrey IG % 0.5 % Normal 0.0-0.5 [facility] Comment on above: Performed By: #### C BC #### [facility] [address] [place] [address] Dr. Dee Humphrey LYMPH # 3.7 103/ul Normal 1.2-3.8 [facility] Comment on above: Performed By: #### C BC #### [facility] [address] [place] [address] Dr. Dee Humphrey Lymphocytes/100 WBC (Bld) 28.7 % Normal 20.5-60.0 [facility] Comment on above: Performed By: #### C BC #### [facility] [address] [place] [address] Dr. Dee Humphrey MANUAL DIFF REQ NO Normal [facility] Comment on above: Performed By: #### C BC #### [facility] [address] [place] [address] Dr. Dee Humphrey MCH (RBC) [Entitic mass] 30.2 pg Normal 26.7-34.0 [facility] Comment on above: Performed By: #### C BC #### [facility] [address] [place] [address] Dr. Dee Humphrey MCHC (RBC) [Mass/Vol] 33.4 g/dL Normal 29.9-35.2 [facility] Comment on above: Performed By: #### C BC #### [facility] [address] [place] [address] Dr. Dee Humphrey MCV (RBC) [Entitic vol] 90.5 fL Normal 81.0-99.0 [facility] Comment on above: Performed By: #### C BC #### [facility] [address] [place] [address] Dr. Dee Humphrey MONO # 0.7 103/ul Normal 0.3-0.8 [facility] Comment on above: Performed By: #### C BC #### [facility] [address] [place] [address] Dr. Dee Humphrey Monocytes/100 WBC (Bld) 5.0 % Normal 1.7-12.0 [facility] Comment on above: Performed By: #### C BC #### [facility] [address] [address] [address] Dee Humphrey NEUT # 8.5 103/ul Critically high 1.4-6.5 [facility] Comment on above: Performed By: #### C BC #### [facility] [id number] Dee Humphrey Neutrophils/100 WBC (Bld) 65.0 % Normal 43.0-75.0 [facility] Comment on above: Performed By: #### C BC #### [facility] [address] [address] [address] Dee Humphrey Platelet mean volume (Bld) [Entitic vol] 9.6 fL Normal 9.5-13.5 [facility] Comment on above: Performed By: #### C BC #### [facility] [address] [address] [address] Dee Humphrey PLT 317 103/ul Normal 150-450 [facility] Comment on above: Performed By: #### C BC #### [facility] [id number] Dee Humphrey RBC 4.10 106/ul Critically low 4.20-5.40 [facility] Comment on above: Performed By: #### C BC #### [facility] [id number] Dee Humphrey WBC 13.1 103/ul Critically high 4.0-11.0 [facility] Comment on above: Performed By: #### C BC #### [facility] [id number] Dee Humph[address] ABD/PELVIS WO CONon [...] ROCIO CHAU Date: 2022-04-27 20:24 Normal [facility] ER URINE PROFILEon 2 Bilirubin Ql (U) Negative Normal NEGATIVE [facility] Comment on above: Performed By: #### P REGU, ERUR #### [facility] [address] [place] [address] Dr. Dee Humphrey Clarity (U) CLEAR Normal CLEAR [facility] Comment on above: Performed By: #### P REGU, ERUR #### [facility] [address] [place] [address] Dr. Dee Humphrey Color (U) YELLOW Normal YELLOW [facility] Comment on above: Performed By: #### P REGU, ERUR #### [facility] [address] [place] [address] Dr. Dee STANFORD A micrscopic examination will be performed if indicated. Normal [facility] Comment on above: Performed By: #### P REGU, ERUR #### [facility] [address] [place] [address] Dr. Dee Humphrey Glucose Ql (U) Negative Normal NEGATIVE [facility] Comment on above: Performed By: #### P REGU, ERUR #### [facility] [address] [place] [address] Dr. Dee Humphrey Hemoglobin Ql (U) Negative Normal NEGATIVE [facility] Comment on above: Performed By: #### P REGU, ERUR #### [facility] [address] [place] [address] Dr. Dee Humphrey Ketones Ql (U) Negative Normal NEGATIVE [facility] Comment on above: Performed By: #### P REGU, ERUR #### [facility] [address] [place] [address] Dr. Dee Humphrey LEUKOCYTES Negative Normal NEGATIVE [facility] Comment on above: Performed By: #### P REGU, ERUR #### [facility] [address] [place] [address] Dr. Dee Humphrey Nitrite Ql (U) Negative Normal NEGATIVE [facility] Comment on above: Performed By: #### P REGU, ERUR #### [facility] [address] [place] [address] Dr. Dee Humphrey pH (U) 5.5 [pH] Normal 5-9 [facility] Comment on above: Performed By: #### P REGU, ERUR #### [facility] [address] [place] [address] Dr. Dee Humphrey SPEC GRAVITY >=1.030 Abnormal 1.005-<=1.02 5 [facility] Comment on above: Performed By: #### P REGU, ERUR #### [facility] [address] [place] [address] Dr. Dee Humphrey UA PROTEIN Negative Normal NEGATIVE/ TRACE [facility] Comment on above: Performed By: #### P REGU, ERUR #### [facility] [address] [place] [address] Dr. Dee Humphrey UR MICRO IND NOT INDICATED Normal [facility] Comment on above: Performed By: #### P REGU, ERUR #### [facility] [address] [place] [address] Dr. Dee Humphrey Urobilinogen Qn (U) 0.2 {Blanca'U}/dL Normal 0.2 - 1. 0 [facility] Comment on above: Performed By: #### P REGU, ERUR #### [facility] [address] [place] [address] Dr. Dee Humphrey LIPASEon 04-27-2022 Lipase [Catalytic activity/Vol] 94.0 U/L Normal 73.0-393.0 [facility] Comment on above: Performed By: #### L IPA, CMP #### [facility] [address] [address] [address] Dee Humphrey URon 04-27-2022 , QUAL Negative Normal NEGATIVE [facility] Comment on above: Performed By: #### P REGU, ERUR #### [facility] [address] [address] [address] Dee Humphrey PROF 14(COMP METB)on 022 Albumin [Mass/Vol] 3.9 g/dL Normal 3.4-5.0 [facility] Comment on above: Performed By: #### L IPA, CMP #### [facility] [address] [place] [address] Dr. Dee Humphrey Albumin/Globulin [Mass ratio] 1.0 {ratio} Normal [facility] Comment on above: Performed By: #### L IPA, CMP #### [facility] [address] [place] [address] Dr. Dee Humphrey ALP [Catalytic activity/Vol] 87 U/L Normal 46-116 [facility] Comment on above: Performed By: #### L IPA, CMP #### [facility] [address] [place] [address] Dr. Dee Humphrey ALT [Catalytic activity/Vol] 31 U/L Normal 14-59 [facility] Comment on above: Performed By: #### L IPA, CMP #### [facility] [address] [address] [address] Dee Humphrey Anion gap [Moles/Vol] 10.8 mmol/L Normal [facility] Comment on above: Performed By: #### L IPA, CMP #### [facility] [address] [place] [address] Dr. Dee Humphrey AST [Catalytic activity/Vol] 17 U/L Normal 15-37 [facility] Comment on above: Performed By: #### L IPA, CMP #### [facility] [address] [address] [address] Dee Humphrey Bilirubin [Mass/Vol] 0.1 mg/dL Critically low 0.2-1.0 [facility] Comment on above: Performed By: #### L IPA, CMP #### [facility] [address] [address] [address] Dee Humphrey Calcium [Mass/Vol] 8.9 mg/dL Normal 8.5-10.1 [facility] Comment on above: Performed By: #### L IPA, CMP #### [facility] [address] [address] [address] Dee Humphrey Chloride [Moles/Vol] 103 mmol/L Normal 98-107 [facility] Comment on above: Performed By: #### L IPA, CMP #### [facility] [address] [place] [address] Dr. Dee Humphrey CO2 [Moles/Vol] 26.9 mmol/L Normal 21.0-32.0 [facility] Comment on above: Performed By: #### L IPA, CMP #### [facility] [address] [place] [address] Dr. Dee Humphrey Creatinine [Mass/Vol] 0.80 mg/dL Normal 0.55-1.02 [facility] Comment on above: Performed By: #### L IPA, CMP #### [facility] [address] [place] [address] Dr. Dee Humphrey EGFR-AF SOU[place]ORE[place] >60 Normal >=60 [facility] Comment on above: Performed By: #### L IPA, CMP #### [facility] [address] [place] [address] Dr. Dee Humphrey EGFR-NON AF [place] >60 Normal >=60 [facility] Comment on above: Performed By: #### L IPA, CMP #### [facility] [address] [place] [address] Dr. Dee Humphrey Globulin (S) [Mass/Vol] 3.9 g/dL Normal [facility] Comment on above: Performed By: #### L IPA, CMP #### [facility] [address] [address] [address] Dee Humphrey Glucose [Mass/Vol] 96 mg/dL Normal 74-106 [facility] Comment on above: Performed By: #### L IPA, CMP #### [facility] [address] [place] [address] Dr. Dee Humphrey Potassium [Moles/Vol] 3.7 mmol/L Normal 3.5-5.1 [facility] Comment on above: Performed By: #### L IPA, CMP #### [facility] [address] [place] [address] Dr. Dee Humphrey Protein [Mass/Vol] 7.8 g/dL Normal 6.4-8.2 [facility] Comment on above: Performed By: #### L IPA, CMP #### [facility] [address] [place] [address] Dr. Dee Humphrey Sodium [Moles/Vol] 137 mmol/L Normal 136-145 [facility] Comment on above: Performed By: #### L IPA, CMP #### [facility] [address] [place] [address] Dr. Dee Humphrey Urea nitrogen [Mass/Vol] 13.0 mg/dL Normal 7.0-18.0 [facility] Comment on above: Performed By: #### L IPA, CMP #### [facility] [address] [place] [address] Dr. Dee Humphrey Urea nitrogen/Creatinine [Mass ratio] 16.2 mg/mg Normal [facility] Comment on above: Performed By: #### L IPA, CMP #### [facility] [address] [place] [address] Dr. Dee Humphrey CBC AUTO DIFFon 03-07-2022 BASO # 0.0 103/ul Normal 0.0-0.1 [facility] Comment on above: Performed By: #### C BC #### [facility] [address] [place] [address] Dr. Dee Humphrey Basophils/100 WBC (Bld) 0.3 % Normal 0.2-2.0 [facility] Comment on above: Performed By: #### C BC #### [facility] [address] [place] [address] Dr. Dee Humphrey EO # 0.1 103/ul Normal 0.0-0.7 [facility] Comment on above: Performed By: #### C BC #### [facility] [address] [place] [address] Dr. Dee Humphrey Eosinophils/100 WBC (Bld) 0.7 % Critically low 0.9-7.0 [facility] Comment on above: Performed By: #### C BC #### [facility] [address] [place] [address] Dr. Dee Humphrey Erythrocyte distribution width (RBC) [Ratio] 13.0 % Normal 11.0-15.0 [facility] Comment on above: Performed By: #### C BC #### [facility] [address] [place] [address] Dr. Dee Humphrey Hematocrit (Bld) [Volume fraction] 39.2 % Normal 36.0-48.0 [facility] Comment on above: Performed By: #### C BC #### [facility] [address] [place] [address] Dr. Dee Humphrey Hemoglobin (Bld) [Mass/Vol] 13.2 g/dL Normal 12.0-16.0 [facility] Comment on above: Performed By: #### C BC #### [facility] [address] [place] [address] Dr. Dee Humphrey IG # 0.05 10e3/ul Critically high 0.00-0.03 [facility] Comment on above: Performed By: #### C BC #### [facility] [address] [place] [address] Dr. Dee Humphrey IG % 0.5 % Normal 0.0-0.5 [facility] Comment on above: Performed By: #### C BC #### [facility] [address] [place] [address] Dr. Dee Humphrey LYMPH # 4.2 103/ul Critically high 1.2-3.8 [facility] Comment on above: Performed By: #### C BC #### [facility] [address] [place] [address] Dr. Dee Humphrey Lymphocytes/100 WBC (Bld) 43.1 % Normal 20.5-60.0 [facility] Comment on above: Performed By: #### C BC #### [facility] [address] [place] [address] Dr. Dee Humphrey MANUAL DIFF REQ NO Normal [facility] Comment on above: Performed By: #### C BC #### [facility] [address] [place] [address] Dr. Dee Humphrey MCH (RBC) [Entitic mass] 30.5 pg Normal 26.7-34.0 [facility] Comment on above: Performed By: #### C BC #### [facility] [address] [place] [address] Dr. Dee Humphrey MCHC (RBC) [Mass/Vol] 33.7 g/dL Normal 29.9-35.2 [facility] Comment on above: Performed By: #### C BC #### [facility] [address] [place] [address] Dr. Dee Humphrey MCV (RBC) [Entitic vol] 90.5 fL Normal 81.0-99.0 [facility] Comment on above: Performed By: #### C BC #### [facility] [address] [place] [address] Dr. Dee Humphrey MONO # 0.4 103/ul Normal 0.3-0.8 [facility] Comment on above: Performed By: #### C BC #### [facility] [address] [place] [address] Dr. Dee Humphrey Monocytes/100 WBC (Bld) 4.4 % Normal 1.7-12.0 [facility] Comment on above: Performed By: #### C BC #### [facility] [address] [place] [address] Dr. Dee Humphrey NEUT # 4.9 103/ul Normal 1.4-6.5 [facility] Comment on above: Performed By: #### C BC #### [facility] [address] [place] [address] Dr. Dee Humphrey Neutrophils/100 WBC (Bld) 51.0 % Normal 43.0-75.0 [facility] Comment on above: Performed By: #### C BC #### [facility] [address] [place] [address] Dr. Dee Humphrey Platelet mean volume (Bld) [Entitic vol] 9.6 fL Normal 9.5-13.5 [facility] Comment on above: Performed By: #### C BC #### [facility] [address] [place] [address] Dr. Dee Humphrey PLT 364 103/ul Normal 150-450 [facility] Comment on above: Performed By: #### C BC #### [facility] [address] [place] [address] Dr. Dee Humphrey RBC 4.33 106/ul Normal 4.20-5.40 [facility] Comment on above: Performed By: #### C BC #### [facility] [address] [place] [address] Dr. Dee Humphrey WBC 9.7 103/ul Normal 4.0-11.0 [facility] Comment on above: Performed By: #### C BC #### [facility] [address] [place] [address] Dr. Dee Humphrey LACTATE/LACTIC ACIDon 2021 Lactate [Moles/Vol] 1.1 mmol/L Normal 0.4-1.9 [facility] Comment on above: Performed By: #### P REGU, ERUR #### [facility] [address] [place] [address] Dr. Dee Humphrey LIPASEon 03-07-2022 Lipase [Catalytic activity/Vol] 79.0 U/L Normal 73.0-393.0 [facility] Comment on above: Performed By: #### C MP, LIPA #### [facility] [address] [place] [address] Dr. Dee Humphrey PROF 14(COMP METB)on 022 Albumin [Mass/Vol] 3.8 g/dL Normal 3.4-5.0 [facility] Comment on above: Performed By: #### C MP, LIPA #### [facility] [address] [address] [address] Dee Humphrey Albumin/Globulin [Mass ratio] 0.9 {ratio} Normal [facility] Comment on above: Performed By: #### C MP, LIPA #### [facility] [address] [address] [address] Dee Humphrey ALP [Catalytic activity/Vol] 80 U/L Normal 46-116 [facility] Comment on above: Performed By: #### C MP, LIPA #### [facility] [address] [address] [address] Dee Humphrey ALT [Catalytic activity/Vol] 27 U/L Normal 14-59 [facility] Comment on above: Performed By: #### C MP, LIPA #### [facility] [address] [address] [address] Dee Humphrey Anion gap [Moles/Vol] 9.5 mmol/L Normal [facility] Comment on above: Performed By: #### C MP, LIPA #### [facility] [address] [address] [address] Dee Humphrey AST [Catalytic activity/Vol] 13 U/L Critically low 15-37 [facility] Comment on above: Performed By: #### C MP, LIPA #### [facility] [address] [address] [address] Dee Humphrey Bilirubin [Mass/Vol] 0.1 mg/dL Critically low 0.2-1.0 [facility] Comment on above: Performed By: #### C MP, LIPA #### [facility] [address] [address] [address] Dee Humphrey Calcium [Mass/Vol] 9.0 mg/dL Normal 8.5-10.1 [facility] Comment on above: Performed By: #### C MP, LIPA #### [facility] [address] [address] [address] Dee Humphrey Chloride [Moles/Vol] 103 mmol/L Normal 98-107 [facility] Comment on above: Performed By: #### C MP, LIPA #### [facility] [address] [address] [address] Dee Humphrey CO2 [Moles/Vol] 27.1 mmol/L Normal 21.0-32.0 [facility] Comment on above: Performed By: #### C MP, LIPA #### [facility] [address] [address] [address] Dee Humphrey Creatinine [Mass/Vol] 0.86 mg/dL Normal 0.55-1.02 [facility] Comment on above: Performed By: #### C MP, LIPA #### [facility] [address] [place] [address] Dr. Dee Humphrey EGFR-AF [place] >60 Normal >=60 [facility] Comment on above: Performed By: #### C MP, LIPA #### [facility] [address] [place] [address] Dr. Dee Humphrey EGFR-NON AF [place] >60 Normal >=60 [facility] Comment on above: Performed By: #### C MP, LIPA #### [facility] [address] [place] [address] Dr. Dee Humphrey Globulin (S) [Mass/Vol] 4.1 g/dL Normal [facility] Comment on above: Performed By: #### C MP, LIPA #### [facility] [address] [address] [address] Dee Humphrey Glucose [Mass/Vol] 99 mg/dL Normal 74-106 [facility] Comment on above: Performed By: #### C MP, LIPA #### [facility] [address] [address] [address] Dee Humphrey Potassium [Moles/Vol] 3.6 mmol/L Normal 3.5-5.1 [facility] Comment on above: Performed By: #### C MP, LIPA #### [facility] [address] [address] [address] Dee Humphrey Protein [Mass/Vol] 7.9 g/dL Normal 6.4-8.2 [facility] Comment on above: Performed By: #### C MP, LIPA #### [facility] [address] [address] [address] Dee Humphrey Sodium [Moles/Vol] 136 mmol/L Normal 136-145 [facility] Comment on above: Performed By: #### C MP, LIPA #### [facility] [address] [place] [address] Dr. Dee Humphrey Urea nitrogen [Mass/Vol] 12.0 mg/dL Normal 7.0-18.0 [facility] Comment on above: Performed By: #### C MP, LIPA #### [facility] [address] [place] [address] Dr. Dee Humphrey Urea nitrogen/Creatinine [Mass ratio] 14.0 mg/mg Normal [facility] Comment on above: Performed By: #### C MP, LIPA #### [facility] [address] [place] [address] Dr. Dee Humphrey Consent for COVID Vaccineon 08-09-2020 SARS-CoV-2 (COVID-19) RNA J LUIS+probe Ql (Unsp spec) [id number]:127 Normal [facility] Consent for Treatmenton 07-30 Consent for Treatment [id number]:127 Normal [facility] Coding Summary.on 08-07-2020 Coding Summary. CODING DATE: 08/07/2020 FINAL [facility] STATUS: PAYOR: [place] [employer] DESCRIPTION 1492 [employer] - Level [...] Paredes Date Saved: 08/07/2020 02:46 pm Normal [facility] Ambulatory Clinical Summaryo n 03-25-2020 Ambulatory Clinical Summary {[id number]}CD:[id number] Normal [facility] Patient Educationon 03-19-20 20 Patient Education [...] ? an antiviral such as ritonavir; ? [place]'s wort; or ? seizure medicine such as [...] irritable, agitate (more content not included)... Normal [facility] Video Visit - Telehealtho n 02-23-2020 [...] interactive video communications from my office using [employer] due to the restrictions of the COVID-19 pandemic. No physical exam was conducted other than those areas of the body visible to telecommunications with the patient located at [address] [place] [address], with no one else in attendance. If [...] Stopped age (more content not included)... Normal [facility] Comment on above: Result Comment: Elec tronically Signed By: Deepa [facility], Maia Montero.br\Date and Time Signed: 02/22/20 23:17 [...] interactive video communications from my office using [employer] due to the restrictions of the COVID-19 pandemic. No physical exam was conducted other than those areas of the body visible to telecommunications with the patient located at [address] [place] [address], with no one else in attendance. If [...] Sister. Depres (more content not included)... Normal [facility] Comment on above: Result Comment: Elec tronically Signed By: Deepa [facility], Maia Ashley\.br\Date and Time Signed: 02/11/20 14:46 [...] interactive video communications from my office using [employer] due to the restrictions of the COVID-19 pandemic. No physical exam was conducted other than those areas of the body visible to telecommunications with the patient located at [address] [place], [place] [phone], with no one else in attendance. If [...] - Denies (more content not included)... Normal [facility] Comment on above: Result Comment: Elec tronically Signed By: Deepa [facility], Maia Ashley\.mati\Date and Time [...] interactive video communications from my office using [employer] due to the restrictions of the COVID-19 pandemic. No physical exam was conducted other than those areas of the body visible to telecommunications with the patient located at [address] [place] [phone], with no one else in attendance. If [...] Tobacco F (more content not included)... Normal [facility] Comment on above: Result Comment: Elec tronically Signed By: Deepa [facility], Maia Montero.mati\Date and Time [...] interactive video communications from my office using [employer] due to the restrictions of the COVID-19 pandemic. No physical exam was conducted other than those areas of the body visible to telecommunications with the patient located at [address] [place], [place] [phone], with no one else in attendance. If [...] No. Yes, (more content not included)... Normal [facility] Comment on above: Result Comment: Elec tronically Signed By: Deepa [facility], Maia Ashley\.mati\Date and Time Signed: 01/29/20 21:38 [...] include drow (more content not included)... Normal [facility] Video Visit - Telehealtho n 01-13-2020 [...] interactive video communications from my office using [employer] due to the restrictions of the COVID-19 pandemic. No physical exam was conducted other than those areas of the body visible to telecommunications with the patient located at [address] [place] [address], with no one else in attendance. If [...] Tobacco For (more content not included)... Normal [facility] Comment on above: Result Comment: Judith mckinneyally Signed By: Deepa [facility], Maia Montero.mati\Date and Time Signed: 01/13/20 09:40 [...] include drow (more content not included)... Normal [facility] Video Visit - Telehealtho n 01-07-2020 [...] interactive video communications from my office using [employer] due to the restrictions of the COVID-19 pandemic. No physical exam was conducted other than those areas of the body visible to telecommunications with the patient located at [address] [place], [place] [phone], with no one else in attendance. If [...] Use:. N (more content not included)... Normal [facility] Comment on above: Result Comment: Elec tronically Signed By: Deepa [facility], Maia Montero.mati\Date and Time [...] interactive video communications from my office using [employer] due to the restrictions of the COVID-19 pandemic. No physical exam was conducted other than those areas of the body visible to telecommunications with the patient located at [address] [place] [address], with no one else in attendance. If [...] Father and (more content not included)... Normal [facility] Comment on above: Result Comment: Elec tronically Signed By: Deepa [facility], Maia Ashley\.br\Date and Time Signed: 12/30/19 13:50 [...] interactive video communications from my office using [employer] due to the restrictions of the COVID-19 pandemic. No physical exam was conducted other than those areas of the body visible to telecommunications with the patient located at [address] [place], [place] [phone], with no one else in attendance. If [...] Alcohol U (more content not included)... Normal [facility] Comment on above: Result Comment: Elec tronically Signed By: Deepa [facility], Maia Ashley\.br\Date and Time Signed: 12/23/19 16:54 [...] include drow (more content not included)... Normal [facility] Video Visit - Telehealtho n 12-04-2019 [...] interactive video communications from my office using [employer] due to the restrictions of the COVID-19 pandemic. No physical exam was conducted other than those areas of the body visible to telecommunications with the patient located at [address] [place] [phone], with no one else in attendance. If [...] Daily, 5 (more content not included)... Normal [facility] Comment on above: Result Comment: Elec tronically Signed By: Deepa [facility], Maia Mnotero.mati\Date and Time Signed: 12/04/19 09:42 EDT Patient [...] rate, h (more content not included)... Normal [facility] Vital Signs Date Time Vital Sign Value Performing Clinician Facility 04-03-2024 13:59-0500 Body mass index (BMI) [Ratio] 42.07 kg/m2 Johnathan Jorje DO Work Phone: [facility] 04-03-2024 13:59-0500 Body weight 104.33 kg Johnathan Jorje DO Work Phone: [facility] 04-03-2024 13:59-0500 Diastolic blood pressure 78 mm[Hg] Johnathan Jorje DO Work Phone: [facility] 04-03-2024 13:59-0500 Systolic blood pressure 110 mm[Hg] Johnathan Jorje DO Work Phone: [facility] 03-21-2024 14:01-0500 Body mass index (BMI) [Ratio] 41.7 kg/m2 Liza Kt PA Work Phone: [facility] 03-21-2024 14:01-0500 Body weight 103.42 kg Liza Kt PA Work Phone: [facility] 03-21-2024 14:01-0500 Diastolic blood pressure 72 mm[Hg] Liza Pulaski PA Work Phone: [facility] 03-21-2024 14:01-0500 Systolic blood pressure 112 mm[Hg] Liza Kt PA Work Phone: [facility] 03-11-2024 14:26-0500 Body mass index (BMI) [Ratio] 41.96 kg/m2 Liza Kt PA Work Phone: [facility] 03-11-2024 14:26-0500 Body weight 104.06 kg Liza Kt PA Work Phone: [facility] 03-11-2024 14:26-0500 Diastolic blood pressure 70 mm[Hg] Liza Corderoey PA [facility]: [facility] [facility] 03-11-2024 14:26-0500 Systolic blood pressure 120 mm[Hg] Liza ANTONIO Work Phone: [facility] 03-06-2024 11:20-0500 Body mass index (BMI) [Ratio] 41.34 kg/m2 Johnathan Jorje DO Work Phone: [facility] 03-06-2024 11:20-0500 Body weight 102.51 kg Johnathan Jorje DO Work Phone: [facility] 03-06-2024 11:20-0500 Diastolic blood pressure 68 mm[Hg] Johnathan Jorje DO Work Phone: [facility] 03-06-2024 11:20-0500 Systolic blood pressure 120 mm[Hg] Johnathan Jorje DO Work Phone: [facility] 02-21-2024 13:57-0400 Body mass index (BMI) [Ratio] 41.3 kg/m2 Johnathan Jorje DO Work Phone: [facility] 02-21-2024 13:57-0400 Body weight 102.42 kg Johnathan Jorje DO Work Phone: [facility] 02-21-2024 13:57-0400 Diastolic blood pressure 70 mm[Hg] Johnathan Jorje DO Work Phone: [facility] 02-21-2024 13:57-0400 Systolic blood pressure 100 mm[Hg] Johnathan Jorje DO Work Phone: [facility] 02-15-2024 13:03-0400 Body height 160 cm Malena Cardona MD Work Phone: [facility] 02-15-2024 13:03-0400 Body mass index (BMI) [Ratio] 39.65 kg/m2 Malena Cardona MD Work Phone: [facility] 02-15-2024 13:03-0400 Body weight 101.52 kg Malena Cardona MD Work Phone: [facility] 02-15-2024 13:03-0400 Diastolic blood pressure 74 mm[Hg] Malena Cardona MD Work Phone: [facility] 02-15-2024 13:03-0400 Heart rate 94 /min Malena Cardona MD Work Phone: [facility] 02-15-2024 13:03-0400 Systolic blood pressure 123 mm[Hg] Malena Cardona MD Work Phone: [facility] 01-24-2024 11:57-0400 Body mass index (BMI) [Ratio] 41.15 kg/m2 Johnathan Jorje DO Work Phone: [facility] 01-24-2024 11:57-0400 Body weight 102.06 kg Johnathan Jorje DO Work Phone: [facility] 01-24-2024 11:57-0400 Diastolic blood pressure 78 mm[Hg] Johnathan Jorje DO Work Phone: [facility] 01-24-2024 11:57-0400 Systolic blood pressure 124 mm[Hg] Johnathan Jorje DO Work Phone: [facility] 01-03-2024 15:02-0400 Body mass index (BMI) [Ratio] 42.07 kg/m2 Liza ANTONIO Work Phone: [facility] 01-03-2024 15:02-0400 Body weight 104.33 kg Liza ANTONIO Work Phone: [facility] 01-03-2024 15:02-0400 Diastolic blood pressure 74 mm[Hg] Liza ANTONIO Work Phone: [facility] 01-03-2024 15:02-0400 Systolic blood pressure 122 mm[Hg] Liza ANTONIO Work Phone: [facility] 12-25-2023 11:22-0400 Body mass index (BMI) [Ratio] 40.79 kg/m2 Johnathan Jorje DO Work Phone: [facility] 12-25-2023 11:22-0400 Body weight 101.15 kg Johnathan Jorje DO Work Phone: [facility] 12-25-2023 11:22-0400 Diastolic blood pressure 76 mm[Hg] Johnathan Jorje DO Work Phone: [facility] 12-25-2023 11:22-0400 Systolic blood pressure 122 mm[Hg] Johnathan Jorje DO Work Phone: [facility] 08-18-2023 14:24-0400 Body height 160.02 cm [facility] 08-18-2023 14:24-0400 Body mass index (BMI) [Ratio] 40.2 kg/m2 [facility] 08-18-2023 14:24-0400 Body temperature 98.4 [degF] [facility] 08-18-2023 14:24-0400 Body weight 103.02 kg [facility] 08-18-2023 14:24-0400 Diastolic blood pressure 81 mm[Hg] [facility] 08-18-2023 14:24-0400 Heart rate 101 /min [facility] 08-18-2023 14:24-0400 Respiratory rate 16 /min [facility] 08-18-2023 14:24-0400 SaO2% (BldA) [Mass fraction] 98 % [facility] 08-18-2023 14:24-0400 Systolic blood pressure 133 mm[Hg] [facility] 04-27-2023 16:30-0500 Body height 160.02 cm Sanaz Lockwood Other [facility] [facility] [employer] Other 04-27-2023 16:30-0500 Body mass index (BMI) [Ratio] 40.92 kg/m2 Sanaz Lockwood Other [facility] Other 04-27-2023 16:30-0500 Body temperature 98.2 [degF] Sanaz Lockwood Other [facility] Other 04-27-2023 16:30-0500 Body weight 104.78 kg Sanaz Lockwood Other [facility] Other 04-27-2023 16:30-0500 Respiratory rate 18 /min Sanaz Lockwood Other [facility] Other 04-27-2023 16:30-0500 SaO2% (BldA) [Mass fraction] 99 % Sanaz Lockwood Other [facility] Other 05-10-2022 14:45-0500 Body height 160.02 cm Kaylah Lottault Other [facility] Other 05-10-2022 14:45-0500 Body mass index (BMI) [Ratio] 38.97 kg/m2 Kaylah Guille Other [facility] Other 05-10-2022 14:45-0500 Body temperature 99.3 [degF] Kaylah Han Other [facility] Other 05-10-2022 14:45-0500 Body weight 99.79 kg Kaylah Lottault Other [facility] Other 06-29-2019 22:40-0500 Pulse (Heart Rate) 84 /min [facility] 06-29-2019 22:40-0500 Pulse Oximetry 97 % [facility] 06-29-2019 22:35-0500 BP Diastolic 56 mm[Hg] [facility] 06-29-2019 22:35-0500 BP Systolic 100 mm[Hg] [facility] 06-29-2019 21:11-0500 BMI (Body Mass Index) 33.1 kg/m2 [facility] 06-29-2019 21:11-0500 Body Temperature 97.8 [degF] [facility] 06-29-2019 21:11-0500 Body weight 84.8 kg [facility] 06-29-2019 21:11-0500 Height 160.02 cm [facility] 06-29-2019 21:11-0500 Respiratory Rate 20 /min Kimberlyn [facility] Encounters Encounter Date [...] flow sheet Liza Duque PA Work Phone: [facility] Comment on above: Second trimester pre gnancy; 26 weeks gestation of ; Elevated glucose tolerance test; Gestational diabetes mellitus (GDM), antepartum, gestational diabetes method of control unspecified Start: 03-14-2024 End: 03-14-2024 ambulatory [facility] Start: 03-11-2024 End: 03-11-2024 Bamboo flowsheet Liza ANTONIO Work Phone: [facility] Start: 03-11-2024 End: 03-11-2024 Bamboo flowsheet Liza ANTONIO Work Phone: [facility] Start: 03-11-2024 End: 03-11-2024 ambulatory LIZA DUQUE Not Available Start: 03-11-2024 End: 03-11-2024 flow sheet Liza ANTONIO Work Phone: [facility] Comment on above: 24 weeks gestation o f ; Second trimester ; Acute cystitis with hematuria Start: 03-06-2024 End: 03-06-2024 Clinisync Result Encounter Johnathan Jorje DO Work Phone: [facility] External Department Unsolicited Start: 03-06-2024 End: 03-06-2024 Clinisync Result Encounter Johnathan Jorje DO Work Phone: [facility] External Department Unsolicited Start: 03-06-2024 End: 03-06-2024 ambulatory JOHNATHAN JORJE Not Available Start: 03-06-2024 End: 03-06-2024 flow sheet Johnathan Jorje DO Work Phone: [facility] Comment on above: 24 weeks gestation o f ; Second trimester ; Flank pain; Acute cystitis with hematuria Start: 02-26-2024 End: 02-26-2024 ambulatory [facility] Start: 02-21-2024 End: 02-21-2024 Bamboo flowsheet Johnathan Jorje DO Work Phone: [facility] Start: 02-21-2024 End: 02-21-2024 Bamboo flowsheet Johnathan Jorje DO Work Phone: [facility] Start: 02-21-2024 End: 02-21-2024 ambulatory JOHNATHAN RECINOS Not Available Start: 02-21-2024 End: 02-21-2024 flow sheet Johnathan Riverao DO Work Phone: [facility] Comment on above: 22 weeks gestation o f ; Second trimester ; Diabetes mellitus screening Start: 02-15-2024 End: 02-15-2024 Office consultation new/estab patient 60 min Malena Cardona MD Work Phone: [facility]- Medicine at [facility] Comment on above: 21 weeks gestation o f (Primary Dx); Multigravida of advanced maternal age in second trimester; Pyelonephritis affecting in second trimester; Bipolar disease during in second trimester ([facility]); Obesity affecting in second trimester, unspecified obesity type; BMI 39.0-39.9,adult; History of section complicating ; Vapes nicotine containing substance; Current rao with 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, antepartum; History of delivery, currently Start: 02-15-2024 End: 02-15-2024 Orders Only Flor Lopez RN Maternal- Medic ine at [facility] Comment on above: 21 weeks gestation o f (Primary Dx); Obesity affecting in second trimester, unspecified obesity type Start: 02-15-2024 End: 02-15-2024 [facility] Start: 02-09-2024 End: 02-09-2024 Evaluation and management of inpatient TEJNAKIA ZENG [facility] Start: 02-08-2024 End: 02-09-2024 Evaluation and management of inpatient NATO Hung LLOYD [facility] Start: 01-24-2024 End: 01-24-2024 Bamboo flowsheet Johnathan [...] Not Available Start: 08-18-2023 End: 08-18-2023 ambulatory [facility] Work Phone: Start: 08-18-2023 End: 08-18-2023 Patient encounter procedure [facility] Physician [facility] Work Phone: Start: 04-27-2023 End: 04-27-2023 ambulatory Sanaz Lockwood Other [facility] Other Start: 04-27-2023 Office outpatient vi sit 25 minutes Sanaz Lockwood [facility] Start: 05-10-2022 End: 05-10-2022 ambulatory Kaylah Han Other [facility] Other Start: 05-10-2022 Office outpatient ne w 20 minutes Kaylah Han [facility] Start: 04-27-2022 End: 04-27-2022 ambulatory KIMBERLYN XIE Facility:[facility] Start: 03-07-2022 End: 03-07-2022 ambulatory KIMBERLYN XIE Facility:[facility] Start: 09-23-[address] JAZIEL HILL Facility :[facility] Start: 06-29-2019 End: 06-29-2019 Emergency department patient visit Kimberlyn Xie [facility] Procedures Date Procedure Procedure Detail [...] Work Phone: Start: 03-06-2024 [facility] UA (CLEAN/CATCH) 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 Johnathan Jorje DO Work Phone: Start: 03-06-2024 Urnls dip stick/tablet rgnt non-auto w/o micrscp Johnathan Recinos DO Work Phone: Start: 02-21-2024 Urnls dip stick/tablet rgnt non-auto w/o micrscp Johnathan Jorje DO Work Phone: Start: 02-15-2024 H/O: section History of section complicating Malena Cardona MD Work Phone: Start: 01-24-2024 URETHRITIS/DISCHARGE PLUS VAGINITIS (HTRX) [facility] Work Phone: Start: 01-24-2024 AFP, SERUM, [facility] Work Phone: Start: 01-24-2024 Urnls dip stick/tablet rgnt non-auto w/o micrscp [facility] DO Work Phone: Start: 01-24-2024 Microscopic observation [Identifier] in Cervix by Cyto stain Flor Lopez RN Start: 01-03-2024 Urnls dip stick/tablet rgnt non-auto w/o micrscp Liza ANTONIO Work Phone: Start: 08-18-2023 Quick Strep (POC) Plan of Treatment Date Care Activity Detail Author Start: 01-23-2027 Screening for malign ant neoplasm of cervix [facility] Start: 02-14-2025 Adult BMI Screening Adult BMI Screen ing [facility] Start: 02-14-2025 Tobacco Screening Tobacco Screening [facility] Start: 02-14-2025 End: 02-14-2025 US MFM with or without consult US MFM with or without consult Imaging Routine 21 weeks gestation of Obesity affecting in second trimester, unspecified obesity type Expected: 02/14/2025 (Approximate), Expires: 02/14/2025 [employer] Work Phone: Comment on above: Expected: 02/14/2025 (Approximate), Expires: 02/14/2025 Start: 05-09-2024 End: 05-09-2024 Professional / ancillary services management 05/09/2024 8:30 AM EST Ancillary Procedure [facility] [address] [place] [id number] [facility] Start: 04-03-2024 End: 04-03-2024 Patient encounter procedure [facility] Comment on above: Arrived Start: 04-03-2024 End: 04-03-2024 Professional / ancillary services management 04/03/2024 1:00 PM EST Ancillary Procedure [facility] [address] [place] [id number] [facility] Start: 03-21-2024 End: 03-21-2025 Measurement of glucose 3 hours after glucose challenge for glucose tolerance test Glucose tolerance, 3 hours Lab Routine Elevated glucose tolerance test Expected: 03/21/2024 (Approximate), Expires: 03/21/2025 [facility] Work Phone: Comment on above: Expected: 03/21/2024 (Approximate), Expires: 03/21/2025 Start: 03-21-2024 End: 03-21-2025 US for US OB SCAN FOR GROWTH Imaging Routine Gestational diabetes mellitus (GDM), antepartum, gestational diabetes method of control unspecified Expected: 03/21/2024 (Approximate), Expires: 03/21/2025 [facility] Comment on above: Expected: 03/21/2024 (Approximate), Expires: 03/21/2025 Start: 03-21-2024 End: 03-21-2024 Patient encounter procedure 03/21/2024 1:30 PM EST Routine [facility] [address] [facility] [place] [id number] Liza Duque PA [address] [place], [place] [id number] [facility] Start: 03-14-2024 End: 03-14-2024 Patient encounter procedure 03/14/2024 9:45 AM EST Appointment [facility] [address] [place] [address] [facility] Imaging Start: 02-22-2024 End: 02-22-2024 Patient encounter procedure 02/22/2024 10:15 AM EDT Appointment [facility] [address] [place] [address] [facility] Start: 02-21-2024 End: 02-20-2025 CBC panel - [...] PM EDT Routine [facility] [address] [place] [id number] Johnathan Recinos, DO [address] [place] [address] [facility] Start: 01-24-2024 End: 02-23-2024 Alpha fetoprotein, maternal Alpha fetoprotein, maternal Lab Routine 18 weeks gestation of Expected: 01/24/2024 (Approximate), Expires: 02/23/2024 [facility] Comment on above: Expected: 01/24/2024 (Approximate), Expires: 02/23/2024 Start: 01-22-2024 End: 01-22-2024 Patient encounter procedure 01/22/2024 10:20 AM EDT Routine [facility] [address] [place] [address] Johnathan Recinos, DO [address] [place] [address] [facility] Start: 12-31-2023 COVID-19 Vaccine ( season) COVID-19 Vaccine ( season) [facility] Start: 12-31-2023 Influenza vaccination [facility] Start: 10-11-2021 DTaP,Tdap and Td Vaccines (2 - Td or Tdap) DTaP,Tdap and Td Vaccines (2 - Td or Tdap) [facility] Start: 2017 Screening for malign ant neoplasm of cervix [facility] Start: 2008 Screening for malign ant neoplasm of cervix Pap Smear [facility] Start: 2005 Adult BMI Follow Up Plan Adult BMI Follow Up Plan [facility] Start: 1999 Depression Screening Depression Scre [facility] Bacteria identified in Urine by Culture Urine culture Microbiology Routine 24 weeks gestation of Second trimester Ordered: 03/06/2024 [facility] Work Phone: Comment on above: Ordered: 03/06/2024 Bacteria identified in Urine by Culture Urine culture Microbiology Routine Flank pain Acute cystitis with hematuria Urinary tract infection without hematuria, site unspecified Ordered: 04/03/2024 [facility] Work Phone: Comment on above: Ordered: 04/03/2024 CHLAMYDIA TRACHOMATI S (GENITO/STI) CHLAMYDIA TRACHOMATIS (GENITO/STI) Lab Routine Exposure to STD Ordered: 01/24/2024 [facility] Comment on above: Ordered: 01/24/2024 Cytology Cervical or vaginal smear or scraping study Pap Smear Pathology and Cytology Routine Well woman exam with routine gynecological exam Ordered: 01/24/2024 [facility] Comment on above: Ordered: 01/24/2024 Human [...] Lab Routine Exposure to STD Ordered: 01/24/2024 [facility] Comment on above: Ordered: 01/24/2024 Patient Education Epinephrine (B y injection) Anaphylaxis (ED) General Allergic Reaction (ED) [facility] Patient referral [facility] SURESWAB(R) ADVANCED VAGINITIS PLUS, TMA SURESWAB(R) ADVANCED VAGINITIS PLUS, TMA Pathology and Cytology Routine Vaginal discharge Ordered: 01/24/2024 [facility] Work Phone: Comment on above: Ordered: 01/24/2024 Immunizations Immunization Date Immunization Notes Care Provider Butch sims 06-02-2008 influenza virus vacc ine, unspecified formulation Johnathan Jorje DO Work Phone: [facility] Payers Date Payer Category Payer Private Health Insurance [facility] MEDICAID [id number] 2023 [facility] er [id number] 2023 [employer] Blue Shie ld Managed Care - [place] [id number] 2023 Unknown BCBS BCBS [id number] [id number] 2023-Present [phone] [address] [place] [id number] 1987 Unknown [id number] 2.16.840.1.823706.3.579. 2.593 1987 Unknown [id number] 2.16.840.1.030775.3.579. 2.593 1987 Unknown [id number] 2.16.840.1.016346.3.579. 2.593 1987 Unknown [id number] 2.16.840.1.552084.3.579. 2.1286 1987 Unknown [id number] 2.16.840.1.529811.3.579. 2.1286 1987 Unknown [id number] 2.16.840.1.264049.3.579. 2.1286 1987 Unknown [id number] 2.16.840.1.736428.3.579. 2.1286 1987 Unknown [id number] 2.16.840.1.643448.3.579. 2.1286 1987 Unknown [id number] 2.16.840.1.818292.3.579. 2.1286 1987 Unknown [id number] 2.16.840.1.367417.3.579. 2.9 1987 Unknown [id number] 2.16.840.1.399717.3.579. 2.1259 1987 Unknown [id number] 2.16.840.1.398223.3.579. 2.9 1987 Unknown [id number] 2.16.840.1.486271.3.579. 2.9 1987 Unknown [id number] 2.16.840.1.297199.3.579. 2.9 1987 Unknown [id number] 2.16.840.1.747943.3.579. 2.9 1987 Unknown [id number] 2.16.840.1.092215.3.579. 2.9 1987 Unknown [id number] 2.16.840.1.160163.3.579. 2.9 1959 Self-pay [id number] 1959 Unknown [id number] Private Health Insurance 2 [id number] Self-pay Self Pay [id number] Social History Date Type Detail Facility Start: 06-29-2019 End: 08-18-2023 Tobacco smoking status [facility] Smoker (finding) [facility] Start: 1985 Sex Assigned At Female [facility] Start: 06-10-2020 End: 02-15-2024 Sex Assigned At [facility] Other Start: 02-15-2024 Tobacco smoking status NHIS Ex-smoker [facility] Start: 02-15-2024 Tobacco use and exposure Smokeless tobacco non-user [facility] Start: 02-15-2024 Alcoholic beverage intake Lifetime non-drinker (finding) [facility] Start: 06-10-2020 End: 02-15-2024 History of Social function [facility] Childcare Unknown [facility] Start: 02-15-2024 Tobacco Comment PT IS A VAPER [facility] tem Start: 10-03-2023 [facility] Start: 1987 Sex assigned at Not on file [facility] [employer] Start: 12-02-2014 Sex Female (finding) [facility] Start: 02-08-2024 Sexual orientation Heterosexual (finding) [facility] Tobacco smoking stat [facility] Tobacco smoking consumption unknown [facility] Start: 10-26-2023 Gender identity Identifies as female gender (finding) [facility] Medical Equipment Procedure Code Equipment Code Equipment Origin al Text Equipment Identifier Dates 1 strip by In Vi tro route Daily Use in the morning prior to breakfast, 1 hour after each meal for a total of 4times daily. [id number] Start: 03-25-2024 End: 04-24-2024 1 each by In Vit ro route Daily Use to check FSBS four times daily [id number] Start: 03-25-2024 End: 04-24-2024 Goals Date Patient [...] 81 mg, Daily Blood Glucose Monitoring Suppl ([employer] Glucometer) w/Device kit 1 kit, Does not [...] Medical History: Diagnosis Date Bipolar 1 disorder ([facility]) HISTORY PAST MEDICAL HISTORY SOCIAL HISTORY Past Medical History: Diagnosis Date Bipolar 1 disorder ([facility]) Social History Tobacco Use Smoking status: Not [...] nursing note reviewed. Exam conducted with a director of catering sales present. Vitals: Estimated body mass index is [...] Recinos DO documented in this encounter [facility] 03-21-2024 History of Present illness Narrative [...] Medical History: Diagnosis Date Bipolar 1 disorder ([facility]) Social History Tobacco Use Smoking status: Not [...] hour glucose order to have done at [facility]. Patient DECLINES 3 hour gtt and would like to start testing FSBS--Patient will be referred to Diabetic Edu at [facility]. Follow Up: Patient is to return to [...] Medical History: Diagnosis Date Bipolar 1 disorder ([facility]) HISTORY PAST MEDICAL HISTORY SOCIAL HISTORY Past Medical History: Diagnosis Date Bipolar 1 disorder ([facility]) Social History Tobacco Use Smoking status: Not [...] nursing note reviewed. Exam conducted with a director of catering sales present. Vitals: Estimated body mass index is [...] of . Nursing will reach out to [facility] to inquire about culture results. Patient does have follow up appointment with Maternal Medicine. Patient to return to clinic in 4 weeks for routine OB appointment. Documented by Barbara Guillermo LPN on behalf of: PACO Freed documented in this encounter [facility] 03-06-2024 History of Present illness Narrative [...] Medical History: Diagnosis Date Bipolar 1 disorder ([facility]) HISTORY PAST MEDICAL HISTORY SOCIAL HISTORY Past Medical History: Diagnosis Date Bipolar 1 disorder ([facility]) Social History Tobacco Use Smoking status: Not [...] nursing note reviewed. Exam conducted with a director of catering sales present. Vitals: Estimated body mass index is [...] Recinos DO documented in this encounter [facility] 02-21-2024 History of Present illness Narrative [...] nursing note reviewed. Exam conducted with a director of catering sales present. Vitals: Estimated body mass index is [...] Recinos DO documented in this encounter [facility] 02-15-2024 History of Present illness Narrative [...] Medical History: Diagnosis Date Bipolar 1 disorder ([facility]) Depression PSHIST: Past Surgical History: Procedure Laterality [...] 4. Bipolar disease during in second trimester ([facility]) I reviewed with the patient that stability [...] of withdrawal and extrapyramidal effects on reviewed. Shift Nurse Manager should be notified. Lack of controlled human [...] . For prevention of venous thromboembolism in exxm-vjcm-xize groups, pharmacologic thromboprophylaxis should be considered in [...] prevention Cervical length at 22 weeks at [facility] Follow up survey scheduled Serial growth assessments every 4 weeks after the anatomy scan can be done at OB office. ventricles should be measured at each US. If >=10 mm or concern for hydrocephalus refer to MFM. If you would like [facility] to do the growth US please [...] Malena Cardona MD, FACOG (she/hers) Maternal- Medicine [facility] [address] [place] [address] This document was created with [employer] technology. Though I make every effort to review the dictation as it is transcribed, on occasion the spoken word can be misinterpreted by the technology leading to inappropriate words, phrases, or sentences. This note is addressed to the requesting provider as a consultation for clinical guidance. Specific medical abbreviations are occasionally used and those are generally approved by the [place]?Board of?Obstetrics and?Gynecology?as well as?Jeri lane abbreviations. The above plan of care was based solely on the diagnoses for which a consultation was requested. ?More frequent testing may be indicated based on her other medical/obstetrical conditions. The management of other or medical conditions is beyond the scope of requested consultation and will continue to be followed by the primary typing element machine operator or primary care provider. Note to patient: [...] yes Have you been seen here at [facility] in a previous ? yes Recent ER visits or hospitalizations? 02/07 kidney and bladder infection Bring blood sugar log or meter with you today? (Please bring them with you for every visit at [facility]) na Flu vaccine (Mar-June)? na Any concerns that you would like me to mention to the provider today? no documented in this encounter [facility] 01-24-2024 History of Present illness Narrative Reason [...] Medical History: Diagnosis Date Bipolar 1 disorder ([facility]) HISTORY PAST MEDICAL HISTORY SOCIAL HISTORY Past Medical History: Diagnosis Date Bipolar 1 disorder ([facility]/HCC) Social History Tobacco Use Smoking status: Not [...] 4 section, pt to be referred to [facility] for level II ultrasound. Pt to [...] Recinos DO documented in this encounter [facility] 01-03-2024 History of Present illness Narrative [...] Medical History: Diagnosis Date Bipolar 1 disorder ([facility]/HCC) HISTORY PAST MEDICAL HISTORY SOCIAL HISTORY Past Medical History: Diagnosis Date Bipolar 1 disorder ([facility]) Social History Tobacco Use Smoking status: Not [...] of: PACO Freed documented in this encounter [facility] 12-25-2023 History of Present illness Narrative [...] Medical History: Diagnosis Date Bipolar 1 disorder ([facility]) Social History Tobacco Use Smoking status: Not [...] nursing note reviewed. Exam conducted with a director of catering sales present. Vitals: Estimated body mass index is [...] or undercooked meat, and stay away from [facility]. Patient has been consulted regarding any further do's and don'ts of . Patient voiced understanding and all questions and concerns were answered. Patient complaints of nausea not helped by oral medications. Patient will have referral to [facility] for Zofran pump. Patient aware that [facility] will reach out to her to initiate therapy. Follow Up: Patient is to return in 4 weeks for routine OB appointment. Documented by Barbara Guillermo LPN on behalf of: Liza Duque PA-C documented in this encounter [facility] 04-27-2023 Evaluation note Encounter Date Diagnosis [...] condition. Mar, Sore throat (ICD-10 - J02.9) [facility] Other 01-10-2023 Evaluation note* Encounter Date Diagnosis [...] weeks for the cough to go away [facility] Other 11-07-2022 NoteIndication: Abdominal pain. Comparison: None [...] Electronically authenticated by: SURJIT FREITAS Date: 2022-03-07 20:49[facility]11-19-2020 NoteHPI Staff This visit was conducted via phone communications from my office due to the restrictions of the COVID-19 pandemic. No physical exam was conducted due to audio only communication with the patient located at [address] [place] [address] [phone], with no one else. If it is determined that the patientshould be evaluated in person, the patient will be directed to the appropriate clinic or venue. Thepatient or their guardian verbally consented to this visit. Phone time was 15 minutes discussing health issues with counseling and coordination of care. Subjective Interval History/HPI Patient presents today for follow up via telehealth phone from [facility]. Patient started Latuda 20mg last evening with [...] anxiety, # 30 tab(s), Refills(s) 2, [id number] 161, cm, 12/23/19 10:18:00 EDT, Height/Length Dosing, 82, kg, 12/23/19 10:18:00 EDT, Weight Dosing Orders: lurasidone, 20 mg = 1 tab(s), Oral, Daily, with 350 calories; begin this dose first then progress to next dose of 40mg, X 1 week(s), # 7 tab(s), Refills(s) 0, Pharmacy: [facility]/pharmacy #[id number], 161, cm, 12/23/19 10:18:00 EDT, Height/Length Dosing, 82, kg, 12/23/19 10:... lurasidone, 40 mg = 1 tab(s), Oral, Daily, with 350 calories, # 30 tab(s), Refills(s) 1, [id number], 161, cm, 12/23/19 10:18:00 [...] (generalized anxiety disorder) Hidr (more content not included)...[facility]: Result Comment: Electronically Signed By: Carlota RODRIGUEZ CNP\.br\Date and Time Signed: 03/19/20 14:27 [id number] NoteI Staff This visit was conducted via two-way, real-time interactive video communications from my office using [employer] due to the restrictions of the COVID-19 pandemic. No physical exam was conducted other than those areas of the body visible to telecommunications with the patient located at [address] [place] [address], with no one else in attendance. If [...] Ordered: TELEHEALTH Office Visit Level 3 Est 22884 General Treatment Plan Maintain medication regimen _Improve [...] Employed, 03/18/2019 Home/Environment Sylvia (more content not included)...[facility] HospitalComment on above: Result Comment: Electronically Signed By: Carlota RODRIGUEZ CNP\Date and Time Signed: 03/05/20 13:32 [id number] NoteI Staff This visit was conducted via two-way, real-time interactive video communications from my office using [employer] due to the restrictions of the COVID-19 pandemic. No physical exam was conducted other than those areas of the body visible to telecommunications with the patient located at [address] [place] [address] [phone], with no one else in attendance. If [...] anxiety, # 30 tab(s), Refills(s) 1, [id number], 161, cm, 12/23/19 10:18:00 EDT, Height/Length Dosing, 82, kg, 12/23/19 10:18:00 EDT, Weight Dosing alprazolam, 0.5 mg = 1 tab(s), Oral, TID, PRN for anxiety, # 30 tab(s), Refills(s) 1, [id number], 161, cm, 12/23/19 10:18:00 EDT, Height/Length Dosing, 82, kg, 12/23/19 10:18:00 EDT, Weight Dosing aripiprazole, See Instructions, 1.5 tab po qAM, # 30 tab(s), Refills(s) 2, Pharmacy: [facility]/pharmacy #[id number], 161, cm, 12/23/19 10:18:00 EDT, Height/Length Dosing, 82, kg, 12/23/19 10:18:00 EDT, Weight Dosing aripiprazole, See Instructions, 1 tab po qAM, # 30 tab(s), Refills(s) 5, [id number], 161, cm, 12/23/19 10:18:00 EDT, Height/Length Dosing, 82, kg, 12/23/19 10:18:00 EDT, Weight Dosing cyclobenzaprine, 10 mg = 1 tab(s), Oral, TID, PRN for spasm, # 30 tab(s), Refills(s) 1, Pharmacy: [facility]/pharmacy #[id number], 161, cm, 06/13/19 14:39:00 EST, Height/Length Measured, 82, kg, 06/13/19 14:39:00EST, Weight Measured cyclobenzaprine, 10 mg = 1 tab(s), Oral, TID, PRN for spasm, # 30 tab(s), Refills(s) 1, Pharmacy: [facility]/pharmacy #[id number], 161, cm, 12/23/19 10:18:00 EDT, Height/Length Dosing, 82, kg, 12/23/19 10:18:00 EDT, Weight Dosing General Treatment Plan Maintain medication regimen _Improve mood stability _Improve anxiety control _Improve social and interpersonal functioning Clinical Global Impression 62 Prognosis progressing Follow-up With When Contact Information Carlota RODRIGUEZ CNP In 4 weeks Additional Instructions: (more content not included)...[facility] HospitalComment on above:Result Comment: Electronically Signed By: Carlota RODRIGUEZ CNP\.br\Date and Time Signed: 01/27/20 22:35 [id number] NoteI Staff This visit was conducted via two-way, real-time interactive video communications from my office using [employer] due to the restrictions of the COVID-19 pandemic. No physical exam was conducted other than those areas of the body visible to telecommunications with the patient located at [address] [place] [address], with no one else in attendance. If [...] Ordered: TELEHEALTH Office Visit Level 3 Est 77247 General Treatment Plan Maintain medication regimen _Improve [...] Use:. Never Smokeless Tob (more content not included)...[facility] HospitalComment on above:Result Comment: Electronically Signed By: Carlota RODRIGUEZ CNP\.br\Date and Time Signed: 01/13/20 09:11 [id number] NoteI Staff This visit was conducted via two-way, real-time interactive video communications from my office using [employer] due to the restrictions of the COVID-19 pandemic. No physical exam was conducted other than those areas of the body visible to telecommunications with the patient located at [address] [place] [address], with no one else in attendance. If [...] anxiety, # 30 tab(s), Refills(s) 1, Pharmacy: [facility]/pharmacy #[id number], 161, cm, 12/23/19 10:18:00 EDT, Height/Length Dosing, 82, kg, 12/23/19 10:18:00 EDT, Weight Dosing alprazolam, 0.5 mg = 1 tab(s), Oral, TID, PRN for anxiety, # 30 tab(s), Refills(s) 1, Pharmacy: [facility]/pharmacy #[id number], 161, cm, 06/13/19 14:39:00 EST, Height/Length Measured, 82, kg, 06/13/19 14:39:00 EST, Weight Measured aripiprazole, See Instructions, 1 tab po qAM, # 30 tab(s), Refills(s) 0, Pharmacy: [facility]/pharmacy #[id number], 161, cm, 12/23/19 10:18:00 EDT, Height/Length [...] Allergies Bactrim Social History (more content not included)...[facility] HospitalComment on above:Result Comment: Electronically Signed By: Carlota RODRIGUEZ CNP\Date and Time Signed: 12/23/19 16:37 [id number] NoteHPI Staff This visit was conducted via two-way, real-time interactive video communications from my office using [employer] due to the restrictions of the COVID-19 pandemic. No physical exam was conducted other than those areas of the body visible to telecommunications with the patient located at [address] [place] [address], with no one else in attendance. If [...] q24hr, # 30 tab(s), Refills(s) 2, Pharmacy: [facility]/pharmacy #[id number],161, cm, 06/13/19 14:39:00 EST, Height/Length Measured, 82, kg, 06/13/19 14:39:00 EST, Weight Measured cyclobenzaprine, 10 mg = 1 tab(s), Oral, TID, PRN for spasm, # 30 tab(s), Refills(s) 1, Pharmacy: [facility]/pharmacy #[id number], 161, cm, 06/13/19 14:39:00 EST, Height/Length [...] Employment/School Employed, 03/18/2019 Home/Environment (more content not included)...[facility] HospitalComment on above:Result Comment: Electronically Signed By: Carlota RODRIGUEZ CNP\.br\Date and Time Signed: 12/02/19 16:38 EDTChief complaint+Reason for visit Narrative* Chief Complaint Nausea, diarrhea, fe zhou Reason for Visit Contact with and (guillen spected) exposure to covid-19 Sore throat [facility] Work Phone: Evaluation note* Diagnosis Onset Date Resolution Status Contact with and (suspected) exposure to covid-19 noneactive Sore throat noneactive [facility] Work Phone: Evaluation note* Diagnosis 21 weeks gestation of - Primary Obesity affecting in second trimester, unspecified obesity type [facility] Diagnosis 21 weeks gestation of - Primary Multigravida of advanced maternal age in second trimester Pyelonephritis affecting in second trimester Bipolar disease during in second trimester ([facility]) Obesity affecting in second trimester, unspecified obesity type BMI 39.0-39.9,adult History of section complicating Previous delivery, unspecified as to episode of care or not applicable Vapes nicotine containing substance Current rao with 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, antepartum History of delivery, currently with history of pre-term labor [facility] Diagnosis 22 weeks gestation of Second trimester state, incidental Diabetes mellitus screening Screening for diabetes mellitus [facility] Diagnosis 24 weeks gestation of Second trimester state, incidental Flank pain Abdominal pain, unspecified site Acute cystitis with hematuria documented [facility]* Diagnosis 24 weeks gestation of Second trimester state, incidental Acute cystitis with hematuria documented in this encounter [facility]* Diagnosis Second trimester state, incidental 26 weeks gestation of Elevated glucose tolerance test Impaired glucose tolerance test Gestational diabetes mellitus (GDM), antepartum, gestational diabetes method of control unspecified documented in this encounter [facility]* Diagnosis 28 weeks gestation of Third trimester state, incidental Flank pain Abdominal pain, unspecified site Acute cystitis with hematuria Urinary tract infection without hematuria, site unspecified documented in this encounter [facility]* Diagnosis Second trimester state, incidental [facility] Diagnosis Rash Rash and other nonspecific skin eruption Second trimester state, incidental documented in this encounter [facility]* Diagnosis 18 weeks gestation of Well woman exam with routine gynecological exam Routine gynecological examination Screening, , for anatomic survey Encounter for anatomic survey Exposure to STD Vaginal discharge Leukorrhea, not specified as infective documented [facility] Healthcare[facility] general Narrative - Reported* Type Description Date Medical History Bipolar Surgical History appendectomy Surgical History x 3 Hospitalization History see above surgical histo ry [facility] Other InstructionsNot on filedocumented in this encounter [facility]* Attachments The following attachments cannot be sent through Care Everywhere. * Preeclampsia (Maltese) * Movement (Maltese) [facility] [...] may need to be seen by an residential sales associate if you have other events like this without definite egg exposure. Summary Purpose Family History Relationship Condition Age at Onset Recorded Date/T alo father Diabetes mellitus Unknown Hypertension Unknown Additional Source Comments INFORMATION SOURCE (unrecogn ized section and content) DATE CREATED AUTHOR 10/30/2020 [facility] DATE CREATED AUTHOR AUTHOR'S ORGANIZ ATION 04/29/2022 [facility] DATE CREATED AUTHOR AUTHOR'S ORGANIZ ATION 03/16/2024 [facility] DATE CREATED AUTHOR AUTHOR'S ORGANIZ ATION 03/24/2024 [facility] EPIC REASON FOR VISIT (unrecogniz ed [...] August 18, 2023 End: August 18, 2023 Mold Holder Relationship Specialty Start Date End Date No Pcp, [place] [address] PCP - General Family Medicine 03/12/19 Mold Holder Relationship Specialty Start Date End Date [place], [place] [address] PCP - General Family Medicine 03/12/19 Goals [...] BE BASED ON THE PRIMARY CLINICAL RECORDS. [facility] [employer] [facility]. provides no warranty or guarantee of the accuracy or completeness of information in this document.
[2024-04-22 19:19] VITALS: BP 126/67; PULSE 96
[2024-04-22 19:39] LABS: Bilirubin Urine NEGATIVE (NEGATIVE); Blood Urine NEGATIVE (NEGATIVE); Clarity Urine CLEAR (CLEAR); Color Urine LT. YELLOW (YELLOW); Glucose Urine UA NEGATIVE (NEGATIVE); Ketones Urine NEGATIVE (NEGATIVE); Leukocyte Esterase Urine NEGATIVE (NEGATIVE); Nitrite Urine NEGATIVE (NEGATIVE); Protein Urine NEGATIVE (NEG/TRACE); Urobilinogen Urine 0.2 EU/dL (0.2-1.0)
[2024-04-22 19:41] LABS: Urine Microscopic Indicated NO
[2024-04-22] MEDS: FLUCONAZOLE 150 MG TABLET PO (20:28)
== END 2024-04-22 20:30 | disposition home or self-care (01) ==
LOC: FBC 19:00
PROVIDERS: Admitting Provider Obstetrics & Gynecology; PCP Nurse Practitioner Family; Visit Provider Obstetrics & Gynecology
DX: Z03.71 Encounter for suspected problem with amniotic cavity and membrane ruled out (principal); O23.40 Unspecified infection of urinary tract in pregnancy, unspecified trimester; N39.0 Urinary tract infection, site not specified; Z3A.00 Weeks of gestation of pregnancy not specified
CPT/HCPCS: 36415; 59025; 81003; 84112; 87086; G0378; G0379

== ENCOUNTER 2024-05-13 15:42 | Observation (INO) | payer BC, OTHER, SELFPAY ==
--- OUTSIDE RECORDS SUMMARY | 2024-05-13 15:52 | XMS_ITS | CCD ---
Author Organization [facility] Care Team Providers Care Market Gardener Name Role Phone Kimberlyn Xie Primary Care [...] Primary Care Unavailable JORJE, JOHNATHAN Attending Unavailable KT, LIZA Attending Unavailable KT, LIZA Attending Unavailable JORJE, JOHNATHAN Attending Unavailable KT, LIZA Attending Unavailable JORJE, JOHNATHAN Attending Unavailable JORJE, JOHNATHAN Attending Unavailable Jorje, Johnathan Attending Unavailable Jorje, Johnathan Admitting Unavailable Unavailable Unavailable Unavailable Allergies Allergy Classification Reported Allergen(s) Allergy Type Date of Onset Reaction(s) Facility (3 sources) egg extract; 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: [egg] Drug Allergy 08-18-19 Vomiting [facility] (20 sources) Sulfamethoxazole; 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: [SULFAMETHOXAZOLE] Drug Allergy 08-18-19 [facility] (20 sources) Trimethoprim; 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: [TRIMETHOPRIM] Drug Allergy 08-18-19 [facility] (3 sources) Fish Containing Products; 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: [Fish Containing Products] Propensity to adverse reactions 08-18-19 Difficulty Breathing [facility] (1 source) Sulfamethoxazole / Trimethoprim Drug Allergy 02-04-20 13 [facility] Repository (20 sources) Sulfamethoxazole / Trimethoprim Drug Allergy 11-24-19 24 hives, [facility] [employer] Other (20 sources) Egg-Derived Products Drug Allergy [...] (six) hours as needed for pain. Active [id number] 200 actuat albuterol 0.09 mg/actuat metered dose [...] aspirin 81 mg delayed release oral tablet (18 sources) Platelet Aggregation Inhibitor, Nonsteroidal Anti-inflammatory Drug [...] Glucose Monitoring Suppl (D-Care Glucometer) w/Device kit (5 sources) Start: 03-25-2024 End: 03-25-2025 Blood Glucose [...] oral tablet (1 source) alpha-Adrenergic Agonist, Uncompetitive N-fjonyf-N-aspartate Receptor Antagonist, Sigma-1 Agonist Start: 04-27-2023 take 4 tablets by mouth every twenty-four hours as needed Capmist DM 60-15-400 MG as needed Orally every 4-6 hours as needed, max 4 tablets in 24 hours for 5 days Mar, Active [id number] 0.3 ml EPINEPHrine 1 mg/ml auto-injector (2 [...] Active isopropyl alcohol 0.7 ml/ml medicated pad (5 sources) Start: 03-25-2024 Alcohol Swabs (Alcohol Prep [...] 01/08/2025 Active metoclopramide 10 mg oral tablet (12 sources) Dopamine-2 Receptor Antagonist Start: 04-03-2024 End: [...] 12:00am ondansetron 4 mg disintegrating oral tablet (19 sources) Serotonin-3 Receptor Antagonist Start: 03-08-2024 End: [...] Ondansetron Hcl Active 8 MG PO Q8H 18 11August 18, 2023 12:00am Start: 05-10-2022 take 1 [...] Prednisone Active 60 MG Oral Every morning 01 01June 29, 2019 10:18pm administer with food or milk no115/iron/folic acid ( 19 ORAL) (2 sources) no115/iron/folic acid ( 19 ORAL) Take by mouth. Active promethazine hydrochloride 12.5 mg oral tablet (13 sources) Phenothiazine Start: 03-25-20 End: 06-23-19 take [...] 18, 2023 12:00am take 1 capsule by mo uth every twenty-four hours in the morning venlafaxine [...] Date Documented Da te Episodic/Chronic Abdominal pain (9 sources) Unspecified abdominal pain; 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: [Flank pain] [...] tolerance complicating ; childbirth; or the puerperium (9 sources) Gestational diabetes mellitus; 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: [Gestational diabetes [...] rodent exterminator (current) drug therapy; 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: [OTH ALF CURRENT DRUG THERAPY] Onset: 04-29-2022 Episodic Other [...] 02-15-2024 Chronic Other and delivery including normal (18 sources) Second trimester ; 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: [Encounter for [...] of ] 03-21-2024 Episodic Residual codes; unclassified (6 sources) Gestation period, 28 weeks; 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: [28 [...] source) transport Onset: 02-08-2024 Urinary tract infections (10 sources) Acute cystitis; 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: [Acute cystitis with hematuria] Onset: 02-08-2024 03-06-2024 Episodic Past or Other Problems Problem Classification Problem Date Documented Da te Episodic/Chronic Other skin disorders (2 sources) Eruption; 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: [Rash and other nonspecific skin eruption] 01-03-2024 Episodic Unclassified (1 source) Suspected COVID-19 virus infection Z20.822 Results Test Name Value Interpretation Reference Range Facility TB UA (CLEAN/CATCH) STREET LIGHT INSPECTOR/CHUY RO IF IND.on 04-22-2024 BILIRUBIN URINE Negative NEGATIVE [facility]care BLOOD URINE Negative NEGATIVE [facility] Clarity (U) CLEAR CLEAR [facility] Color (U) LT. YELLOW YELLOW [facility] GLUCOSE URINE UA Negative NEGATIVE mg/dL [facility] Ketones Ql (U) Negative NEGATIVE mg/dL [facility] Leukocyte esterase Test strip Ql (U) Negative NEGATIVE [facility] NITRITE URINE Negative NEGATIVE [facility] pH (U) 6.0 [pH] 5.0 - 9.0 [facility] PROTEIN URINE Negative NEG/TRACE mg/dL [facility] SPECIFIC GRAVITY URINE 1.020 1.005 - 1.025 [facility] URINE MICROSCOPIC INDICATED NO [facility] UROBILINOGEN URINE 0.2 EU/dL 0.2 - 1.0 EU/dL [facility] Urine Cultureon 04-22-2024 Bacteria identified Cx Nom (U) No Growth 2 Days PERFORMED BY: [facility] [address] [id number] PATHOLOGIST ADVERTISING DISPLAY ROTATOR SYD SHEFFIELD M.D. Normal [facility] Comment on above: Performed By: #### C UU #### [place] [id number] RUST RECURRENT VAGINITIS (HTRX)on 04-06-2024 ATOPOBIUM VAGINAE 0 [facility] ATOPOBIUM VAGINAE Not detected [facility] BVAB 2,3 (BACTERIAL VAGINOSIS ASSOCIATED BACTERIA 2, 3); MOBILUNCUS SPP 0 [facility] BVAB 2,3 (BACTERIAL VAGINOSIS ASSOCIATED BACTERIA 2, 3); MOBILUNCUS SPP Not detected [facility] BRAD ALBICANS, PARAPSILOSIS, TROPICALIS 0 [facility] BRAD ALBICANS, PARAPSILOSIS, TROPICALIS Not detected [facility] BRAD GLABRATA 0 [facility] BARD GLABRATA Not detected [facility] BRAD KRUSEI 0 [facility] BRAD KRUSEI Not detected [facility] CHLAMYDIA TRACHOMATIS 0 [facility] CHLAMYDIA TRACHOMATIS Not detected [facility] GARDNERELLA VAGINALIS 0 [facility] GARDNERELLA VAGINALIS Not detected [facility] MEGASPHAERA (TYPES 1, 2) 0 [facility] MEGASPHAERA (TYPES 1, 2) Not detected [facility] MYCOPLASMA GENITALIUM 0 [facility] MYCOPLASMA GENITALIUM Not detected [facility] NEISSERIA GONORRHOEAE 0 [facility] NEISSERIA GONORRHOEAE Not detected [facility] TRICHOMONAS VAGINALIS 0 [facility] TRICHOMONAS VAGINALIS Not detected [facility] Urinalysis macro (dipstick) panel (U)on 04-03-2024 Bilirubin, UA Negative Negative - 4(70) +++ mg/dL [facility] Blood, UA Negative Negative - 50 Slick/mcL [facility] Clarity, UA Cloudy [facility] Color, UA Yellow [facility] Glucose, UA 1+ Negative - 2000(110) ++++ mg/dL [facility] Comment on above: 100mg/dL Interpretation and review of laboratory results Abnormal [facility] Ketones, UA Negative Negative - 160(16) ++++ mg/dL [facility] Leukocytes, UA Trace Negative - 500+++ Mira/mcL [facility] Nitrite, UA Negative Negative - Positive [facility] pH, UA 6 5 - 9 [facility] Protein, UA Negative Negative - 2000(20) ++++ mg/dL [facility] Spec Grav, UA 1.01 1 - 1.03 [facility] Urobilinogen, UA 0.2 0.2 - 12 mg/dL [facility] ALL CBC WITH AUTO DIFFon BASOPHILS ABSOLUTE AUTO 0 [facility] Basophils/100 WBC (Bld) 0.1 % Low 0.2 - 2.0 % [facility] Eosinophils/100 WBC (Bld) 0.5 % Low 0.9 - 7.0 % [facility] Erythrocyte distribution width (RBC) [Ratio] 13.9 % 11.0 - 15.0 % [facility] Hematocrit (Bld) [Volume fraction] 35.2 % Low 36.0 - 48.0 % [facility] Hemoglobin (Bld) [Mass/Vol] 11.5 g/dL Low 12.0 - 16.0 g/dL [facility] IMMATURE GRANULOCYTES ABS AUTO 0.05 High [facility] Immature granulocytes/100 WBC (Bld) 0.6 % High 0.0 - 0.5 % [facility] Interpretation and review of laboratory results Abnormal [facility] LYMPHOCYTES ABSOLUTE AUTO 1.9 [facility] Lymphocytes/100 WBC (Bld) 22.9 % 20.5 - 60.0 % [facility] MCH (RBC) [Entitic mass] 30.5 pg 26.7 - 34.0 pg [facility] MCHC (RBC) [Mass/Vol] 32.7 g/dL 29.9 - 35.2 g/dL [facility] MCV (RBC) [Entitic vol] 93.4 fL 81.0 - 99.0 fL [facility] MONOCYTES ABSOLUTE AUTO 0.3 [facility] Monocytes/100 WBC (Bld) 3.3 % 1.7 - 12.0 % [facility] NEUTROPHILS ABSOLUTE AUTO 6.1 [facility] Neutrophils/100 WBC (Bld) 72.6 % 43.0 - 75.0 % [facility] Platelet mean volume (Bld) [Entitic vol] 10.5 fL 9.5 - 13.5 fL [facility] TBH EO # 0 [facility] TB PLT 347 [facility] RBC 3.77 Low [facility] TB WBC 8.4 [facility] Urinalysis macro (dipstick) panel (U)on 03-21-2024 Bilirubin, UA Negative Negative - 4(70) +++ mg/dL [facility] Blood, UA Negative Negative - 50 Slick/mcL [facility] Healthcare Clarity, UA Cloudy [facility] Color, UA Yellow [facility] Glucose, UA Positive Negative - 1999(110) ++++ mg/dL [facility] Comment on above: 500 mg Interpretation and review of laboratory results Abnormal [facility] Ketones, UA Negative Negative - 160(16) ++++ mg/dL [facility] Leukocytes, UA Negative Negative - 500+++ Mira/mcL [facility] Nitrite, UA Negative Negative - Positive [facility] pH, UA 6.5 5 - 9 [facility] Health[facility] e Protein, UA Negative Negative - 1999(20) ++++ mg/dL [facility] Spec Grav, UA 1.025 1 - 1.03 [facility] Urobilinogen, UA 0.2 0.2 - 12 mg/dL [facility] Urinalysis macro (dipstick) panel (U)on 03-11-2024 Bilirubin, UA Negative Negative - 4(70) +++ mg/dL [facility] Blood, UA Positive Negative - 50 Slick/mcL [facility] Comment on above: large Clarity, UA Clear [facility] Color, UA Straw [facility] Glucose, UA Negative Negative - 1999(110) ++++ mg/dL [facility] Interpretation and review of laboratory results Abnormal [facility] Ketones, UA Negative Negative - 160(16) ++++ mg/dL [facility] Leukocytes, UA Negative Negative - 500+++ Mira/mcL [facility] Nitrite, UA Negative Negative - Positive [facility] pH, UA 6 5 - 9 [facility] Protein, UA Negative Negative - 1999(20) ++++ mg/dL [facility] Spec Grav, UA 1.02 1 - 1.03 [facility] Urobilinogen, UA 0.2 0.2 - 12 mg/dL [facility] UA (CLEAN/CATCH) STREET LIGHT INSPECTOR/CHUY RO IF IND.on 03-06-2024 BILIRUBIN URINE COLOR INTERFERENCE Abnormal NEGATIVE N [facility] BLOOD URINE COLOR INTERFERENCE Abnormal NEGATIVE [facility] Clarity (U) CLEAR CLEAR [facility] Healthca re Color (U) DK. RED YELLOW [facility] Health[facility] e GLUCOSE URINE UA COLOR INTERFERENCE Abnormal NEGAT CARMELITA mg/dL [facility] Interpretation and review of laboratory results Abnormal [facility] Ketones Ql (U) COLOR INTERFERENCE Abnormal NEGATIV E mg/dL [facility] Leukocyte esterase Test strip Ql (U) COLOR INTERFERENCE Abnormal NEGATIVE [facility] care NITRITE URINE COLOR INTERFERENCE Abnormal NEGATIVE [facility] PH URINE COLOR INTERFERENCE Abnormal 5.0 - 9.0 [facility] ealthcare PROTEIN URINE COLOR INTERFERENCE Abnormal NEG/TRAC E mg/dL [facility] SPECIFIC GRAVITY URINE 1.020 1.005 - 1.025 [facility] URINE MICROSCOPIC INDICATED YES [facility] UROBILINOGEN URINE COLOR INTERFERENCE Abnormal 0.2 - 1.0 EU/dL [facility] Health[facility] e Urinalysis macro (dipstick) panel (U)on 03-06-2024 Bilirubin, UA Positive Negative - 4(70) +++ mg/dL [facility] Blood, UA Positive Negative - 50 Slick/mcL [facility] Comment on above: large Clarity, UA Clear [facility] Healthca re Color, UA Dark Sanaz [facility] Health[facility] e Glucose, UA Negative Negative - 1999(110) ++++ mg/dL [facility] Interpretation and review of laboratory results Abnormal [facility] Ketones, UA Negative Negative - 160(16) ++++ mg/dL [facility] Leukocytes, UA Trace Negative - 500+++ Mira/mcL [facility] Nitrite, UA Positive Negative - Positive [facility] pH, UA 6 5 - 9 [facility] Protein, UA Positive Negative - 1999(20) ++++ mg/dL [facility] Comment on above: 100 Spec Grav, UA 1.02 1 - 1.03 [facility] Urobilinogen, UA 1.0 0.2 - 12 mg/dL [facility] Urinalysis macro (dipstick) panel (U)on 02-21-2024 Bilirubin, UA Negative Negative - 4(70) +++ mg/dL [facility] Blood, UA Negative Negative - 50 Slick/mcL [facility] Clarity, UA Clear [facility], UA Yellow [facility] Health[facility] e Glucose, UA Negative Negative - 1999(110) ++++ mg/dL [facility] Interpretation and review of laboratory results Abnormal [facility] Ketones, UA Negative Negative - 160(16) ++++ mg/dL [facility] Leukocytes, UA Trace Negative - 500+++ Mira/mcL [facility] Nitrite, UA Negative Negative - Positive [facility] pH, UA 5.5 5 - 9 [facility] e Protein, UA Negative Negative - 1999(20) ++++ mg/dL [facility] Spec Grav, UA 1.01 1 - 1.03 [facility] Urobilinogen, UA 0.2 0.2 - 12 mg/dL [facility] CBC AND AUTO DIFFon 02-09-20 ABSOLUTE BASOPHIL 0.0 X10E9/L Normal 0.0-0.2 [facility] Comment on above: Performed By: #### 3 2132-1, CMP, CBCA #### [facility] ([id number]) [address] [place] [address], [address] [place] [address] ABSOLUTE NEUTROPHIL 5.4 X10E9/L Normal 1.5-6.6 [facility] Comment on above: Performed By: #### 3 2132-1, CMP, CBCA #### [facility] ([id number]) [address] [place] [address], [address] [place] [address] Basophils/100 WBC (Bld) 0.2 % Normal [facility] Comment on above: Performed By: #### 3 2132-1, CMP, CBCA #### [facility] ([id number]) [address] [place] [address] Eosinophils (Bld) [#/Vol] 0.1 10*3/uL Normal 0.0-0.4 [facility] Comment on above: Performed By: #### 3 2132-1, CMP, CBCA #### [facility] ([id number]) [address], [address] [place] [address] Eosinophils/100 WBC (Bld) 0.9 % Normal [facility] Comment on above: Performed By: #### 3 2132-1, CMP, CBCA #### [facility] ([id number]) [address], [address] [place] [address] Erythrocyte distribution width (RBC) [Ratio] 14.3 % Normal 11.5-15.0 [facility] Comment on above: Performed By: #### 3 2132-1, CMP, CBCA #### [facility] ([id number]) [address], [address] [place] [address] Hematocrit (Bld) [Volume fraction] 30.3 % Low 35-47 [facility] Comment on above: Performed By: #### 3 2132-1, CMP, CBCA #### [facility] ([id number]) [address], [address] [place] [address] Hemoglobin (Bld) [Mass/Vol] 10.3 g/dL Low 11.7-15.5 [facility] Comment on above: Performed By: #### 3 2132-1, CMP, CBCA #### [facility] ([id number]) [address], [address] [place] [address] Lymphocytes (Bld) [#/Vol] 1.7 10*3/uL Normal 1.0-3.5 [facility] Comment on above: Performed By: #### 3 2132-1, CMP, CBCA #### [facility] ([id number]) [address], [address] [place] [address] Lymphocytes/100 WBC (Bld) 22.0 % Normal [facility] Comment on above: Performed By: #### 3 2132-1, CMP, CBCA #### [facility] ([id number]) [address], [address] [place] [address] MCH (RBC) [Entitic mass] 31.3 pg Normal 27-34 [facility] Comment on above: Performed By: #### 3 2132-1, CMP, CBCA #### [facility] ([id number]) [address], [address] [place] [address] MCHC (RBC) [Mass/Vol] 34.0 g/dL Normal 32-36 [facility] Comment on above: Performed By: #### 3 2132-1, CMP, CBCA #### [facility] ([id number]) [address], [address] [place] [address] MCV (RBC) [Entitic vol] 92 fL Normal 80-100 [facility] Comment on above: Performed By: #### 3 2132-1, CMP, CBCA #### [facility] ([id number]) [address], [address] [place] [address] Monocytes (Bld) [#/Vol] 0.5 10*3/uL Normal 0-0.9 [facility] Comment on above: Performed By: #### 3 2132-1, CMP, CBCA #### [facility] ([id number]) [address], [address] [place] [address] Monocytes/100 WBC (Bld) 7.0 % Normal [facility] Comment on above: Performed By: #### 3 2132-1, CMP, CBCA #### [facility] ([id number]) [address], [address] [place] [address] Neutrophils/100 WBC (Bld) 69.9 % Normal [facility] Comment on above: Performed By: #### 3 2132-1, CMP, CBCA #### [facility] ([id number]) [address], [address] [place] [address] Platelet mean volume (Bld) [Entitic vol] 8.8 fL Normal 7-12 [facility] Comment on above: Performed By: #### 3 2132-1, CMP, CBCA #### [facility] ([id number]) [address], [facility] [address] [place] [address] Platelets (Bld) [#/Vol] 259 10*3/uL Normal 150-450 [facility] Comment on above: Performed By: #### 3 2132-1, CMP, CBCA #### [facility] ([id number]) [address], [facility] [address] [place] [address] RBC COUNT 3.29 X10E12/L Low 3.80-5.20 [facility] Comment on above: Performed By: #### 3 2132-1, CMP, CBCA #### [facility] ([id number]) [address], [address] [address] WBC (Bld) [#/Vol] 7.7 10*3/uL Normal 4.0-11.0 [facility] Comment on above: Performed By: #### 3 2132-1, CMP, CBCA #### [facility] ([id number]) [address], [facility] [address] [place] [address] COMPREHENSIVE METABOLIC PANE Paco 02-09-2024 Albumin [Mass/Vol] 2.9 g/dL Low 3.2-5.3 [facility] Comment on above: Performed By: #### 3 2132-1, CMP, CBCA #### [facility] ([id number]) [address], [facility] [address] [place] [address] ALP [Catalytic activity/Vol] 118 U/L Normal 39-130 [facility] Comment on above: Performed By: #### 3 2132-1, CMP, CBCA #### [facility] ([id number]) [address], [address] [place], [place] [address] ALT [Catalytic activity/Vol] 6 U/L Normal 0-31 [facility] Comment on above: Performed By: #### 3 2132-1, CMP, CBCA #### [facility] ([id number]) [address], [address] [place], [place] [address] Anion gap [Moles/Vol] 10 mmol/L Normal 5-[address] [facility] Comment on above: Performed By: #### 3 2132-1, CMP, CBCA #### [facility] ([id number]) [address], [address] [place], [place] [address] AST [Catalytic activity/Vol] 9 U/L Normal 0-41 [facility] Comment on above: Performed By: #### 3 2132-1, CMP, CBCA #### [facility] ([id number]) [address], [address] [place] [address] Bilirubin [Mass/Vol] 0.4 mg/dL Normal 0.3-1.2 [facility] Comment on above: Performed By: #### 3 2132-1, CMP, CBCA #### [facility] ([id number]) [address], [address] [place] [address] Calcium [Mass/Vol] 8.5 mg/dL Normal 8.5-10.5 [facility] Comment on above: Performed By: #### 3 2132-1, CMP, CBCA #### [facility] ([id number]) [address], [address] [place] [address] Chloride [Moles/Vol] 105 mmol/L Normal 98-109 [facility] Comment on above: Performed By: #### 3 2132-1, CMP, CBCA #### [facility] ([id number]) [address], [address] [place] [address] CO2 [Moles/Vol] 22 mmol/L Normal 22-32 [facility] Comment on above: Performed By: #### 3 2132-1, CMP, CBCA #### [facility] ([id number]) [address] [address] [place] [address] Creatinine [Mass/Vol] 0.45 mg/dL Normal 0.40-1.[address] [facility] Comment on above: Result Comment: METH OD TRACEABLE TO IDMS STANDARD Performed By: #### 3 2132-1, CMP, CBCA #### [facility] ([id number]) [address] [address] [place] [address] eGFR (CKD-EPI) NON-RACE DEPENDENT >90 Normal >59 [facility] Comment on above: Result Comment: Reported eGFR is based on the CKD-EPI 2020 equation that does not use a race coefficient. Performed By: #### 3 2132-1, CMP, CBCA #### [facility] ([id number]) [address] [address] [place] [address] Glucose [Mass/Vol] 84 mg/dL Normal 65-99 [facility] Comment on above: Performed By: #### 3 2132-1, CMP, CBCA #### [facility] ([id number]) [address] [address] [place] [address] Potassium [Moles/Vol] 3.7 mmol/L Normal 3.5-5.[address] [facility] Comment on above: Performed By: #### 3 2132-1, CMP, CBCA #### [facility] ([id number]) [address] [address] [place] [address] Protein [Mass/Vol] 6.0 g/dL Normal 6.0-8.0 [facility] Comment on above: Performed By: #### 3 2132-1, CMP, CBCA #### [facility] ([id number]) [address] [address] [place] [address] Sodium [Moles/Vol] 137 mmol/L Normal 134-146 [facility] Comment on above: Performed By: #### 3 2132-1, CMP, CBCA #### [facility] ([id number]) [address], [address] [place] [address] Urea nitrogen [Mass/Vol] 5 mg/dL Normal 5-23 [facility] Comment on above: Performed By: #### 3 3-1, CMP, CBCA #### [facility] ([id number]) [address], [address] [place] [address] MAGNESIUMon 02-09-2024 Magnesium [Mass/Vol] 1.6 mg/dL Low 1.8-2.6 [facility] Comment on above: Performed By: #### 3 2132-1, CMP, CBCA #### [facility] ([id number]) [address], [address] [place] [address] PHOSPHORUSon 02-09-2024 Phosphate [Mass/Vol] 4.5 mg/dL Normal 2.4-4.9 [facility] Comment on above: Performed By: #### 3 2132-1, CMP, CBCA #### [facility] ([id number]) [address], [address] [place] [address] US RETROPERITONEAL LIMITEDon 02-09-2024 US RETROPERITONEAL LIMITED [...] Andrade MD on 02/09/2024 10:14 AM Normal [facility] BLOOD CULTUREon 02-08-2024 Bacteria identified Aer cx Nom (Bld) SPECIMEN NOTES SUBOPTIMAL VOLUME OF BLOOD COLLECTED, RESULTS MAY BE AFFECTED. CULTURE RESULTS NO GROWTH 5 DAYS Normal [facility] Comment on above: Performed By: #### 3 2132-1, CMP, CBCA #### [facility] ([id number]) [address], [address] [place] [address] Bacteria identified Aer cx Nom (Bld) SPECIMEN NOTES SUBOPTIMAL VOLUME OF BLOOD COLLECTED, RESULTS MAY BE AFFECTED. CULTURE RESULTS NO GROWTH 5 DAYS Normal [facility] Comment on above: Performed By: #### 1 7928-3 #### [facility] ([id number]) [address], [address] [address] CBC AND AUTO DIFFon 02-08-20 24 ABSOLUTE BASOPHIL 0.0 X10E9/L Normal 0.0-0.2 [facility] Comment on above: Performed By: #### 3 2132-1, CMP, CBCA #### [facility] ([id number]) [address], [address] [address] ABSOLUTE NEUTROPHIL 9.5 X10E9/L High 1.5-6.6 [facility] Comment on above: Performed By: #### 3 2132-1, CMP, CBCA #### [facility] ([id number]) [address], [address] [address] Basophils/100 WBC (Bld) 0.0 % Normal [facility] Comment on above: Performed By: #### 3 2132-1, CMP, CBCA #### [facility] ([id number]) [address], [address] [address] Eosinophils (Bld) [#/Vol] 0.0 10*3/uL Normal 0.0-0.4 [facility] Comment on above: Performed By: #### 3 2132-1, CMP, CBCA #### [facility] ([id number]) [address], [facility] [address] [place] [address] Eosinophils/100 WBC (Bld) 0.0 % Normal [facility] Comment on above: Performed By: #### 3 2132-1, CMP, CBCA #### [facility] ([id number]) [address], [facility] [address] [place] [address] Erythrocyte distribution width (RBC) [Ratio] 14.5 % Normal 11.5-15.0 [facility] Comment on above: Performed By: #### 3 2132-1, CMP, CBCA #### [facility] ([id number]) [address], [address] [address] Hematocrit (Bld) [Volume fraction] 31.3 % Low 35-47 [facility] Comment on above: Performed By: #### 3 1, CMP, CBCA #### [facility] ([id number]) [address], [facility] [address] [place] [address] Hemoglobin (Bld) [Mass/Vol] 10.6 g/dL Low 11.7-15.5 [facility] Comment on above: Performed By: #### 3 2132-1, CMP, CBCA #### [facility] ([id number]) [address], [facility] [address] [place] [address] Lymphocytes (Bld) [#/Vol] 1.1 10*3/uL Normal 1.0-3.5 [facility] Comment on above: Performed By: #### 3 2132-, CMP, CBCA #### [facility] ([id number]) [address], [facility] [address] [place] [address] Lymphocytes/100 WBC (Bld) 9.4 % Normal [facility] Comment on above: Performed By: #### 3 2132-1, CMP, CBCA #### [facility] ([id number]) [address], [address] [place] [address] MCH (RBC) [Entitic mass] 30.8 pg Normal 27-34 [facility] Comment on above: Performed By: #### 3 2132-1, CMP, CBCA #### [facility] ([id number]) [address], [address] [place] [address] MCHC (RBC) [Mass/Vol] 33.9 g/dL Normal 32-[address] [facility] Comment on above: Performed By: #### 3 2132-1, CMP, CBCA #### [facility] ([id number]) [address], [address] [place] [address] MCV (RBC) [Entitic vol] 91 fL Normal 80-100 [facility] Comment on above: Performed By: #### 3 2132-1, CMP, CBCA #### [facility] ([id number]) [address], [address] [place] [address] Monocytes (Bld) [#/Vol] 0.9 10*3/uL Normal 0-0.9 [facility] Comment on above: Performed By: #### 3 2132-1, CMP, CBCA #### [facility] ([id number]) [address], [address] [place] [address] Monocytes/100 WBC (Bld) 8.2 % Normal [facility] Comment on above: Performed By: #### 3 2132-1, CMP, CBCA #### [facility] ([id number]) [address], [address] [place] [address] Neutrophils/100 WBC (Bld) 82.4 % Normal [facility] Comment on above: Performed By: #### 3 2132-1, CMP, CBCA #### [facility] ([id number]) [address], [address] [place] [address] Platelet mean volume (Bld) [Entitic vol] 8.5 fL Normal 7-12 [facility] Comment on above: Performed By: #### 3 2132-1, CMP, CBCA #### [facility] ([id number]) [address], [address] [address] Platelets (Bld) [#/Vol] 246 10*3/uL Normal 150-450 [facility] Comment on above: Performed By: #### 3 2132-1, CMP, CBCA #### [facility] ([id number]) [address], [facility] [address] [place] [address] RBC COUNT 3.44 X10E12/L Low 3.80-5.20 [facility] Comment on above: Performed By: #### 3 2132-1, CMP, CBCA #### [facility] ([id number]) [address], [facility] [address] [place] [address] WBC (Bld) [#/Vol] 11.5 10*3/uL High 4.0-11.0 [facility] Comment on above: Performed By: #### 3 2132-1, CMP, CBCA #### [facility] ([id number]) [address], [address] [place] [address] COMPREHENSIVE METABOLIC PANE Paco 02-08-2024 Albumin [Mass/Vol] 3.1 g/dL Low 3.2-5.3 [facility] Comment on above: Performed By: #### 3 2132-1, CMP, CBCA #### [facility] ([id number]) [address], [address] [place] [address] ALP [Catalytic activity/Vol] 100 U/L Normal 39-130 [facility] Comment on above: Performed By: #### 3 2132-1, CMP, CBCA #### [facility] ([id number]) [address], [address] [place], [place] [address] ALT [Catalytic activity/Vol] 7 U/L Normal 0-31 [facility] Comment on above: Performed By: #### 3 2132-1, CMP, CBCA #### [facility] ([id number]) [address], [address] [place], [place] [address] Anion gap [Moles/Vol] 12 mmol/L Normal 5-[address] [facility] Comment on above: Performed By: #### 3 2132-1, CMP, CBCA #### [facility] ([id number]) [address], [address] [place], [place] [address] AST [Catalytic activity/Vol] 8 U/L Normal 0-41 [facility] Comment on above: Performed By: #### 3 2132-1, CMP, CBCA #### [facility] ([id number]) [address], [address] [place] [address] Bilirubin [Mass/Vol] 0.5 mg/dL Normal 0.3-1.2 [facility] Comment on above: Performed By: #### 3 2132-1, CMP, CBCA #### [facility] ([id number]) [address], [address] [place] [address] Calcium [Mass/Vol] 8.3 mg/dL Low 8.5-10.5 [facility] Comment on above: Performed By: #### 3 2132-1, CMP, CBCA #### [facility] ([id number]) [address], [address] [place], [place] [address] Chloride [Moles/Vol] 104 mmol/L Normal 98-109 [facility] Comment on above: Performed By: #### 3 2132-1, CMP, CBCA #### [facility] ([id number]) [address], [address] [place] [address] CO2 [Moles/Vol] 20 mmol/L Low 22-32 [facility] Comment on above: Performed By: #### 3 2132-1, CMP, CBCA #### [facility] ([id number]) [address], [address] [place] [address] Creatinine [Mass/Vol] 0.53 mg/dL Normal 0.40-1.[address] [facility] Comment on above: Result Comment: METH OD TRACEABLE TO IDMS STANDARD Performed By: #### 3 2132-1, IZAIAH, CBCA #### [facility] ([id number]) [address], [address] [place] [address] eGFR (CKD-EPI) NON-RACE DEPENDENT >90 Normal >59 [facility] Comment on above: Result Comment: Reported eGFR is based on the CKD-EPI 2020 equation that does not use a race coefficient. Performed By: #### 3 2132-1, CMP, CBCA #### [facility] ([id number]) [address], [address] [place] [address] Glucose [Mass/Vol] 115 mg/dL High 65-99 [facility] Comment on above: Performed By: #### 3 2132-1, CMP, CBCA #### [facility] ([id number]) [address], [address] [place] [address] Potassium [Moles/Vol] 3.6 mmol/L Normal 3.5-5.[address] [facility] Comment on above: Performed By: #### 3 2132-1, CMP, CBCA #### [facility] ([id number]) [address], [address] [place] [address] Protein [Mass/Vol] 6.1 g/dL Normal 6.0-8.0 [facility] Comment on above: Performed By: #### 3 2132-1, CMP, CBCA #### [facility] ([id number]) [address], [address] [place] [address] Sodium [Moles/Vol] 136 mmol/L Normal 134-146 [facility] Comment on above: Performed By: #### 3 2132-1, CMP, CBCA #### [facility] ([id number]) [address], [address] [address] Urea nitrogen [Mass/Vol] 3 mg/dL Low 5-23 [facility] Comment on above: Performed By: #### 3 2132-, CMP, CBCA #### [facility] ([id number]) [address], [address] [address] DRUG SCREEN, URINEon 024 AMPHETAMINE/METHAMP Negative Normal NEG [facility] Comment on above: Result Comment: AMPH /METH screening cut off = 1000 ng/mL Performed By: #### D GUILLEN #### [facility] ([id number]) [address], [address] [place] [address] BARBITURATES Negative Normal NEG [facility] Comment on above: Result Comment: Megan iturates screening cut off value = 200 ng/mL Performed By: #### D GUILLEN #### [facility] ([id number]) [address], [address] [place] [address] BENZODIAZEPINES Negative Normal NEG [facility] Comment on above: Result Comment: Giorgio odiazepines screening cut off value = 200 ng/mL Performed By: #### D GUILLEN #### [facility] ([id number]) [address], [address] [address] CANNABINOIDS Negative Normal NEG [facility] Comment on above: Result Comment: Elsie abinoids/THC screening cut off value = 50 ng/mL Performed By: #### D GUILLEN #### [facility] ([id number]) [address], [address] [place] [address] COCAINE METABOLITE Negative Normal NEG [facility] Comment on above: Result Comment: Coca ine screening cut off value = 300 ng/mL Performed By: #### D GUILLEN #### [facility] ([id number]) [address], [address] [place] [address] ECSTASY Negative Normal NEG [facility] Comment on above: Result Comment: Ecst asy screening cut off value = 500 ng/mL This report is intended for use in clinical monitoring or management of patients. Performed By: #### D GUILLEN #### [facility] ([id number]) [address], [address] [place] [address] METHADONE Negative Normal NEG [facility] Comment on above: Result Comment: Meth adone screening cut off value = 300 ng/mL. Performed By: #### D GUILLEN #### [facility] ([id number]) [address], [address] [place] [address] OPIATES Negative Normal NEG [facility] Comment on above: Result Comment: Opia joey screening cut off value = 300 ng/mL NOTE: This test is used for the detection of codeine, hydrocodone (>1000 ng/mL), morphine and hydromorphone (>900 ng/mL) in urine. Performed By: #### D GUILLEN #### [facility] ([id number]) [address], [address] [place] [address] OXYCODONE Negative Normal NEG [facility] Comment on above: Result Comment: Oxyc odone screening cut off value = 300 ng/mL NOTE: This test is used for the detection of oxycodone and oxymorphone in urine. Performed By: #### D GUILLEN #### [facility] ([id number]) [address], [address] [place] [address] PHENCYCLIDINE Negative Normal NEG [facility] Comment on above: Result Comment: Phen cyclidine screening cut off value = 25 ng/mL Performed By: #### D GUILLEN #### [facility] ([id number]) [address], [address] [place] [address] Glucose Glucometer (BldC) [M ass/Vol]on 02-08-2024 Glucose [Mass/Vol] 107 mg/dL High 65-99 [facility] Lactate (P melvin) [Moles/Vol]o n 02-08-2024 LACTATE W/REFLEX 1.0 mmol/L Normal 0.4-2.0 [facility] Comment on above: Result Comment: Result did not trigger repeat Lactate, re-order if needed. Performed By: #### 7 5241-0, 51429-5 #### [facility] ([id number]) [address], [address] [place] [address] LACTATE W/REFLEX 0.8 mmol/L Normal 0.4-2.0 [facility] Comment on above: Result Comment: Result did not trigger repeat Lactate, re-order if needed. Performed By: #### 3 3-1, CMP, CBCA #### [facility] ([id number]) [address], [address] [place] [address] Procalcitonin IA [Mass/Vol]o n 02-08-2024 PROCALCITONIN 0.74 ng/mL High <0.05 [facility] Comment on above: Result Comment: NOTE <0.50 ng/mL - Low risk of severe sepsis and/or septic shock. <2.00 ng/mL - Recommend retesting within 6-24 hours. >2.00 ng/mL - High risk of sepsis and/or septic shock. Performed By: #### 7 5241-0, 39859-7 #### [facility] ([id number]) [address], [address] [place] [address] URINALYSISon 02-08-2024 Bilirubin Ql (U) Negative Normal NEG [facility] Comment on above: Performed By: #### U A #### [facility] ([id number]) [address], [address] [place] [address] BLOOD/HGB Small Abnormal NEG [facility] Comment on above: Performed By: #### U A #### [facility] ([id number]) [address], [address] [place] [address] Color (U) YELLOW Normal YELLOW [facility] Comment on above: Performed By: #### U A #### [facility] ([id number]) [address], [address] [place] [address] Glucose Ql (U) Negative Normal NEG [facility] Comment on above: Performed By: #### U A #### [facility] ([id number]) [address], [address] [place] [address] Ketones Ql (U) 20 mg/dL Abnormal NEG [facility] Comment on above: Performed By: #### U A #### [facility] ([id number]) [address], [address] [place] [address] Leukocyte esterase Test strip Ql (U) Negative Normal NEG [facility] Comment on above: Performed By: #### U A #### [facility] ([id number]) [address], [address] [place] [address] MUCOUS PRESENT Abnormal NONE [facility] Comment on above: Performed By: #### U A #### [facility] ([id number]) [address], [address] [place] [address] Nitrite Ql (U) Negative Normal NEG [facility] Comment on above: Performed By: #### U A #### [facility] ([id number]) [address], [address] [place] [address] pH (U) 8.0 [pH] Normal 5.0-8.5 [facility] Comment on above: Performed By: #### U A #### [facility] ([id number]) [address], [address] [place] [address] Protein Ql (U) Trace Abnormal NEG [facility] Comment on above: Performed By: #### U A #### [facility] ([id number]) [address], [address] [place] [address] R.B.CELLS 16 /hpf High 0-5 [facility] Comment on above: Performed By: #### U A #### [facility] ([id number]) [address], [address] [place] [address] Specific gravity (U) [Rel density] 1.012 Normal 1.003-1.035 [facility] Comment on above: Performed By: #### U A #### [facility] ([id number]) [address], [address] [place] [address] SQUAMOUS EPITHELIUM 1 /hpf Normal 0-5 [facility] Comment on above: Performed By: #### U A #### [facility] ([id number]) [address], [address] [place] [address] TRANSITIONAL EPITH <1 High 0 [facility] Comment on above: Performed By: #### U A #### [facility] ([id number]) [address], [address] [place] [address] TURBIDITY CLEAR Normal CLEAR [facility] Comment on above: Performed By: #### U A #### [facility] ([id number]) [address], [address] [place] [address] Urobilinogen Qn (U) 2 {Blanca'U}/dL High <1.1 [facility] Comment on above: Performed By: #### U A #### [facility] ([id number]) [address], [address] [place] [address] W.B.CELLS 2 /hpf Normal 0-5 [facility] Comment on above: Performed By: #### U A #### [facility] ([id number]) [address], [address] [place] [address] URINE CULTUREon 02-08-2024 Bacteria identified Cx Nom (U) CULTURE RESULTS NO GROWTH AT <1000 CFU/mL Normal [facility] Comment on above: Performed By: #### 3 2133-1, CMP, CBCA #### [facility] ([id number]) [address], [address] [place] [address] XR CHEST 1 VWon 02-08-2024 XR CHEST [...] Rubi MD on 02/08/2024 9:35 AM Normal [facility] URETHRITIS/DISCHARGE PLUS VA GINITIS (HTRX)on 01-27-2024 ATOPOBIUM VAGINAE 0.000 [facility] ATOPOBIUM VAGINAE Not detected [facility] BVAB 2,3 (BACTERIAL VAGINOSIS ASSOCIATED BACTERIA 2, 3); MOBILUNCUS SPP 0.000 [facility] Healthcare BVAB 2,3 (BACTERIAL VAGINOSIS ASSOCIATED [...] Healthcare MEGASPHAERA (TYPES 1, 2) Not detected [facility] MYCOPLASMA GENITALIUM 0.000 [facility] Healthcare MYCOPLASMA GENITALIUM Not detected [facility] NEISSERIA GONORRHOEAE 0.000 [facility] NEISSERIA GONORRHOEAE Not detected [facility] TRICHOMONAS VAGINALIS 0.000 [facility] TRICHOMONAS VAGINALIS Not detected [facility] AFP, SERUM, OPEN SPINA BIFID Aon 01-26-2024 AFP MOM 1.08 . [facility] e AFP VALUE 35.9 ng/mL . [facility] COMMENT: Comment . [facility] e Comment on above: Nette Holley , Ph.D., [facility] Director References: Available Upon Request. Multiples Of Median Cutoffs For AFP Elevations Rao 2.5 Black 2.8 IDD 2.0 Twins 4.5 Abbreviation Definitions IDD - Insulin Dep Diabetes OSBR - Open Spina Bifida Risk For further inquiries contact [facility] at [phone]. This test was developed and its performance characteristics determined by [employer] (power[employer]). It has not been cleared or approved by the Food and Drug Administration. Performed at: [facility] [employer] [address] [place], [place] [id number] Training And Development Project Leader: Ashley Duggan Formerly [facility], Phone: [phone] GEST. AGE ON COLLECTION DATE 17.9 . weeks [facility] GESTAT. AGE BASED ON As provided . [facility] Comment on above: Recalculations are n ot recommended when gestational dating by LMP and ultrasound are within 10 days. INSULIN DEP DIABETES No . [facility] Healthcare INTERPRETATION Comment . [facility]alt [facility] Comment on above: Interpretation: Scre en [...] Customer Services to discuss available options. The [employer] recommends amniocentesis be offered to women age 35 and older. [age] [facility] MULTIPLE GESTATION No . [facility] OSBR RISK 1 [place] 9540 . [facility]alt [facility] RACE Other . [facility] RESULTS Report . [facility] TEST RESULTS: Negative . [facility] Health care WEIGHT 225 . lbs [facility] Health[facility] e PREGNANY N N ULTRASOUND [id number] [phone] N 1 Y 225 N N N N N White/ [facility] Urinalysis macro (dipstick) panel (U)on 01-24-2024 Bilirubin, UA Negative Negative - 4(70) +++ mg/dL [facility] Blood, UA Negative Negative - 50 Slick/mcL [facility] Clarity, UA Clear [facility] Color, UA Yellow [facility] Glucose, UA Negative Negative - 1999(110) ++++ mg/dL [facility] Interpretation and review of laboratory results Abnormal [facility] Ketones, UA Negative Negative - 160(16) ++++ mg/dL [facility] Leukocytes, UA Trace Negative - 500+++ Mira/mcL [facility] Nitrite, UA Negative Negative - Positive [facility] pH, UA 6.5 5 - 9 [facility] Protein, UA Negative Negative - 1999(20) ++++ mg/dL [facility] Healthcare Spec Grav, UA 1.020 1 - 1.03 [facility] Urobilinogen, UA 1.0 0.2 - 12 mg/dL [facility] Urinalysis macro (dipstick) panel (U)on 01-03-2024 Bilirubin, UA Negative Negative - 4(70) +++ mg/dL [facility] Blood, UA Positive Negative - 50 Slick/mcL [facility] Healthcare Comment on above: trace Clarity, UA Clear [facility] Healthca re Color, UA Yellow [facility] Glucose, UA Negative Negative - 1999(110) ++++ mg/dL [facility] Interpretation and review of laboratory results Abnormal [facility] Ketones, UA Negative Negative - 160(16) ++++ mg/dL [facility] Leukocytes, UA Positive Negative - 500+++ Mira/mcL [facility] Healthcare Comment on above: small Nitrite, UA Negative Negative - Positive [facility] pH, UA 6.0 5 - 9 [facility] Protein, UA Negative Negative - 1999(20) ++++ mg/dL [facility] Healthcare Spec Grav, UA 1.020 1 - 1.03 [facility] Health care Urobilinogen, UA 0.2 0.2 - 12 mg/dL [facility] No Panel InformationOrdered By: Sanaz Lockwood on 08-18-2023 Quick Strep (POC) [facility] COVID + FLU Quick Testingon 04-27-2023 SARS-CoV-2 (COVID-19) RNA J LUIS+probe Ql (Unsp spec) Negative [email or web address] Other COVID + FLU Quick Testing Negative [email or web address] Other Quick Strepon 04-27-2023 S. pyogenes Org specific cx Ql (Throat) Negative [email or web address] Other Quick Strep [employer] [facility] [employer] Other COVID/FLU/RSV RT-PCRon 05-10 SARS-CoV-2 (COVID-19) RNA J LUIS+probe Ql (Unsp spec) Negative [email or web address] Other COVID/FLU/RSV RT-PCR Positive [facility] Other COVID/FLU/RSV RT-PCR Negative [facility] Other CBC AUTO DIFFon 04-27-2022 BASO # 0.0 103/ul Normal 0.0-0.1 [facility] Comment on above: Performed By: #### C BC #### [facility] [address] [place] [address] Dr. Dee Humphrey Basophils/100 WBC (Bld) 0.2 % Normal 0.2-2.0 [facility] Comment on above: Performed By: #### C BC #### [facility] [address] [place] [address] Dr. Dee Humphrey EO # 0.1 103/ul Normal 0.0-0.7 [facility] Comment on above: Performed By: #### C BC #### [facility] [address] [place] [address] Dr. Dee Humphrey Eosinophils/100 WBC (Bld) 0.6 % Critically low 0.9-7.0 [facility] Comment on above: Performed By: #### C BC #### [facility] [address] [place] [address] Dr. Dee Humphrey Erythrocyte distribution width (RBC) [Ratio] 14.1 % Normal 11.0-15.0 [facility] Comment on above: Performed By: #### C BC #### [facility] [address] [place] [address] Dr. Dee Humphrey Hematocrit (Bld) [Volume fraction] 37.1 % Normal 36.0-48.0 [facility] Comment on above: Performed By: #### C BC #### [facility] [address] [place] [address] Dr. Dee Humphrey Hemoglobin (Bld) [Mass/Vol] 12.4 g/dL Normal 12.0-16.0 [facility] Comment on above: Performed By: #### C BC #### [facility] [address] [place] [address] Dr. Dee Humphrey IG # 0.06 10e3/ul Critically high 0.00-0.03 [facility] Comment on above: Performed By: #### C BC #### [facility] [address] [place] [address] Dr. Dee Humphrey IG % 0.5 % Normal 0.0-0.5 [facility] Comment on above: Performed By: #### C BC #### [facility] [address] [place] [address] Dr. Dee Humphrey LYMPH # 3.7 103/ul Normal 1.2-3.8 [facility] Comment on above: Performed By: #### C BC #### [facility] [address] [place] [address] Dr. Dee Humphrey Lymphocytes/100 WBC (Bld) 28.7 % Normal 20.5-60.0 [facility] Comment on above: Performed By: #### C BC #### [facility] [address] [place] [address] Dr. Dee Humphrey MANUAL DIFF REQ NO Normal [facility] Comment on above: Performed By: #### C BC #### [facility] [address] [address] [address] Dee Humphrey MCH (RBC) [Entitic mass] 30.2 pg Normal 26.7-34.0 [facility] Comment on above: Performed By: #### C BC #### [facility] [address] [address] [address] Dee Humphrey MCHC (RBC) [Mass/Vol] 33.4 g/dL Normal 29.9-35.2 [facility] Comment on above: Performed By: #### C BC #### [facility] [address] [address] [address] Dee Humphrey MCV (RBC) [Entitic vol] 90.5 fL Normal 81.0-99.0 [facility] Comment on above: Performed By: #### C BC #### [facility] [address] [place] [address] Dr. Dee Humphrey MONO # 0.7 103/ul Normal 0.3-0.8 [facility] Comment on above: Performed By: #### C BC #### [facility] [address] [place] [address] Dr. Dee Humphrey Monocytes/100 WBC (Bld) 5.0 % Normal 1.7-12.0 [facility] Comment on above: Performed By: #### C BC #### [facility] [address] [place] [address] Dr. Dee Humphrey NEUT # 8.5 103/ul Critically high 1.4-6.5 [facility] Comment on above: Performed By: #### C BC #### [facility] [address] [place] [address] Dr. Dee Humphrey Neutrophils/100 WBC (Bld) 65.0 % Normal 43.0-75.0 [facility] Comment on above: Performed By: #### C BC #### [facility] [address] [place] [address] Dr. Dee Humphrey Platelet mean volume (Bld) [Entitic vol] 9.6 fL Normal 9.5-13.5 [facility] Comment on above: Performed By: #### C BC #### [facility] [address] [place], [place] [address] Dr. Dee Humphrey PLT 317 103/ul Normal 150-450 [facility] Comment on above: Performed By: #### C BC #### [facility] [address] [place], [place] [address] Dr. Dee Humphrey RBC 4.10 106/ul Critically low 4.20-5.40 [facility] Comment on above: Performed By: #### C BC #### [facility] [address] [place], [place] [address] Dr. Dee Humphrey WBC 13.1 103/ul Critically high 4.0-11.0 [facility] Comment on above: Performed By: #### C BC #### [facility] [address] [place], [place] [address] ABD/PELVIS WO CONon [...] uropathy is identified. Electronically authenticated by: ROCIO JANIMARTINE Date: 2022-04-27 20:24 Normal [facility] ER URINE PROFILEon 2 Bilirubin Ql (U) Negative Normal NEGATIVE [facility] Comment on above: Performed By: #### P REGU, ERUR #### [facility] [address] [address] [address] Dee Humphrey Clarity (U) CLEAR Normal CLEAR [facility] Comment on above: Performed By: #### P REGU, ERUR #### [facility] [address] [place] [address] Dr. Dee Humphrey Color (U) YELLOW Normal YELLOW [facility] Comment on above: Performed By: #### P REGU, ERUR #### [facility] [address] [place] [address] Dr. Dee STANFORD A micrscopic examination will be performed if indicated. Normal [facility] Comment on above: Performed By: #### P REGU, ERUR #### [facility] [address] [place] [address] Dr. Dee Humphrey Glucose Ql (U) Negative Normal NEGATIVE [facility] Comment on above: Performed By: #### P REGU, ERUR #### [facility] [address] [place] [address] Dr. Dee Humphrey Hemoglobin Ql (U) Negative Normal NEGATIVE [facility] Comment on above: Performed By: #### P REGU, ERUR #### [facility] [address] [address] [address] Dee Humphrey Ketones Ql (U) Negative Normal NEGATIVE [facility] Comment on above: Performed By: #### P REGU, ERUR #### [facility] [address] [address] [address] Dee Humphrey LEUKOCYTES Negative Normal NEGATIVE [facility] Comment on above: Performed By: #### P REGU, ERUR #### [facility] [address] [place] [address] Dr. Dee Humphrey Nitrite Ql (U) Negative Normal NEGATIVE [facility] Comment on above: Performed By: #### P REGU, ERUR #### [facility] [address] [address] [address] Dee Humphrey pH (U) 5.5 [pH] Normal 5-9 [facility] Comment on above: Performed By: #### P REGU, ERUR #### [facility] [address] [place] [address] Dr. Dee Humphrey SPEC GRAVITY >=1.030 Abnormal 1.005-<=1.[address] [place] [address] Comment on above: Performed By: #### P REGU, ERUR #### [facility] [address] [place] [address] Dr. Dee Humphrey UA PROTEIN Negative Normal NEGATIVE/ TRACE [facility] Comment on above: Performed By: #### P REGU, ERUR #### [facility] [address] [place] [address] Dr. Dee Humphrey UR MICRO IND NOT INDICATED Normal [facility] Comment on above: Performed By: #### P REGU, ERUR #### [facility] [address] [place] [address] Dr. Dee Humphrey Urobilinogen Qn (U) 0.2 {Blanca'U}/dL Normal 0.2 - 1. 0 [facility] Comment on above: Performed By: #### P REGU, ERUR #### [facility] [address] [place] [address] Dr. Dee Humphrey LIPASEon 04-27-2022 Lipase [Catalytic activity/Vol] 94.0 U/L Normal 73.0-393.0 [facility] Comment on above: Performed By: #### L IPA, CMP #### [facility] [address] [place] [address] Dr. Dee Humphrey URon 04-27-2022 , QUAL Negative Normal NEGATIVE [facility] Comment on above: Performed By: #### P REGU, ERUR #### [facility] [address] [place] [address] Dr. Dee Humphrey PROF 14(COMP METB)on 022 Albumin [Mass/Vol] 3.9 g/dL Normal 3.4-5.0 [facility] Comment on above: Performed By: #### L IPA, CMP #### [facility] [address] [place] [address] Dr. Dee Humphrey Albumin/Globulin [Mass ratio] 1.0 {ratio} Normal [facility] Comment on above: Performed By: #### L IPA, CMP #### [facility] [address] [address] [address] Dee Humphrey ALP [Catalytic activity/Vol] 87 U/L Normal 46-116 [facility] Comment on above: Performed By: #### L IPA, CMP #### [facility] [address] [place] [address] Dr. Dee Humphrey ALT [Catalytic activity/Vol] 31 U/L Normal 14-59 [facility] Comment on above: Performed By: #### L IPA, CMP #### [facility] [address] [place] [address] Dr. Dee Humphrey Anion gap [Moles/Vol] 10.8 mmol/L Normal [facility] Comment on above: Performed By: #### L IPA, CMP #### [facility] [address] [place] [address] Dr. Dee Humphrey AST [Catalytic activity/Vol] 17 U/L Normal 15-37 [facility] Comment on above: Performed By: #### L IPA, CMP #### [facility] [address] [place] [address] Dr. Dee Humphrey Bilirubin [Mass/Vol] 0.1 mg/dL Critically low 0.2-1.0 [facility] Comment on above: Performed By: #### L IPA, CMP #### [facility] [address] [place] [address] Dr. Dee Humphrey Calcium [Mass/Vol] 8.9 mg/dL Normal 8.5-10.1 [facility] Comment on above: Performed By: #### L IPA, CMP #### [facility] [address] [place] [address] Dr. Dee Humphrey Chloride [Moles/Vol] 103 mmol/L Normal 98-107 [facility] Comment on above: Performed By: #### L IPA, CMP #### [facility] [address] [address] [address] Dee Humphrey CO2 [Moles/Vol] 26.9 mmol/L Normal 21.0-32.0 [facility] Comment on above: Performed By: #### L IPA, CMP #### [facility] [address] [address] [address] Dee Humphrey Creatinine [Mass/Vol] 0.80 mg/dL Normal 0.55-1.02 [facility] Comment on above: Performed By: #### L IPA, CMP #### [facility] [address] [place] [address] Dr. Dee Humphrey EGFR-AF EGYPTIAN >60 Normal >=60 [facility] Comment on above: Performed By: #### L IPA, CMP #### [facility] [address] [place] [address] Dr. Dee Humphrey EGFR-NON AF EGYPTIAN >60 Normal >=60 [facility] Comment on above: Performed By: #### L IPA, CMP #### [facility] [address] [address] [address] Dee Humphrey Globulin (S) [Mass/Vol] 3.9 g/dL Normal [facility] Comment on above: Performed By: #### L IPA, CMP #### [facility] [address] [place] [address] Dr. Dee Humphrey Glucose [Mass/Vol] 96 mg/dL Normal 74-106 [facility] Comment on above: Performed By: #### L IPA, CMP #### [facility] [address] [address] [address] Dee Humphrey Potassium [Moles/Vol] 3.7 mmol/L Normal 3.5-5.1 [facility] Comment on above: Performed By: #### L IPA, CMP #### [facility] [address] [address] [address] Dee Humphrey Protein [Mass/Vol] 7.8 g/dL Normal 6.4-8.2 [facility] Comment on above: Performed By: #### L IPA, CMP #### [facility] [address] [place] [address] Dr. Dee Humphrey Sodium [Moles/Vol] 137 mmol/L Normal 136-145 [facility] Comment on above: Performed By: #### L IPA, CMP #### [facility] [address] [place] [address] Dr. Dee Humphrey Urea nitrogen [Mass/Vol] 13.0 mg/dL Normal 7.0-18.0 [facility] Comment on above: Performed By: #### L IPA, CMP #### [facility] [address] [place] [address] Dr. Dee Humphrey Urea nitrogen/Creatinine [Mass ratio] 16.2 mg/mg Normal [facility] Comment on above: Performed By: #### L IPA, CMP #### [facility] [address] [place] [address] Dr. Dee Hmuphrey CBC AUTO DIFFon 03-07-2022 BASO # 0.0 103/ul Normal 0.0-0.1 [facility] Comment on above: Performed By: #### C BC #### [facility] [address] [place] [address] Dr. Dee Humphrey Basophils/100 WBC (Bld) 0.3 % Normal 0.2-2.0 [facility] Comment on above: Performed By: #### C BC #### [facility] [address] [place] [address] Dr. Dee Humphrey EO # 0.1 103/ul Normal 0.0-0.7 [facility] Comment on above: Performed By: #### C BC #### [facility] [address] [place] [address] Dr. Dee Humphrey Eosinophils/100 WBC (Bld) 0.7 % Critically low 0.9-7.0 [facility] Comment on above: Performed By: #### C BC #### [facility] [address] [place] [address] Dr. Dee Humphrey Erythrocyte distribution width (RBC) [Ratio] 13.0 % Normal 11.0-15.0 [facility] Comment on above: Performed By: #### C BC #### [facility] [address] [place] [address] Dr. Dee Humphrey Hematocrit (Bld) [Volume fraction] 39.2 % Normal 36.0-48.0 [facility] Comment on above: Performed By: #### C BC #### [facility] [address] [place] [address] Dr. Dee Humphrey Hemoglobin (Bld) [Mass/Vol] 13.2 g/dL Normal 12.0-16.0 [facility] Comment on above: Performed By: #### C BC #### [facility] [address] [place] [address] Dr. Dee Humphrey IG # 0.05 10e3/ul Critically high 0.00-0.03 [facility] Comment on above: Performed By: #### C BC #### [facility] [address] [place] [address] Dr. Dee Humphrey IG % 0.5 % Normal 0.0-0.5 [facility] Comment on above: Performed By: #### C BC #### [facility] [address] [place] [address] Dr. Dee Humphrey LYMPH # 4.2 103/ul Critically high 1.2-3.8 [facility] Comment on above: Performed By: #### C BC #### [facility] [address] [place] [address] Dr. Dee Humphrey Lymphocytes/100 WBC (Bld) 43.1 % Normal 20.5-60.0 [facility] Comment on above: Performed By: #### C BC #### [facility] [address] [place] [address] Dr. Dee Humphrey MANUAL DIFF REQ NO Normal [facility] Comment on above: Performed By: #### C BC #### [facility] [address] [place] [address] Dr. Dee Humphrey MCH (RBC) [Entitic mass] 30.5 pg Normal 26.7-34.0 [facility] Comment on above: Performed By: #### C BC #### [facility] [address] [address] [address] Dee Humphrey MCHC (RBC) [Mass/Vol] 33.7 g/dL Normal 29.9-35.2 [facility] Comment on above: Performed By: #### C BC #### [facility] [address] [address] [address] Dee Humphrey MCV (RBC) [Entitic vol] 90.5 fL Normal 81.0-99.0 [facility] Comment on above: Performed By: #### C BC #### [facility] [address] [place] [address] Dr. Dee Humphrey MONO # 0.4 103/ul Normal 0.3-0.8 [facility] Comment on above: Performed By: #### C BC #### [facility] [address] [place] [address] Dr. Dee Humphrey Monocytes/100 WBC (Bld) 4.4 % Normal 1.7-12.0 [facility] Comment on above: Performed By: #### C BC #### [facility] [address] [place] [address] Dr. Dee Humphrey NEUT # 4.9 103/ul Normal 1.4-6.5 [facility] Comment on above: Performed By: #### C BC #### [facility] [address] [place] [address] Dr. Dee Humphrey Neutrophils/100 WBC (Bld) 51.0 % Normal 43.0-75.0 [facility] Comment on above: Performed By: #### C BC #### [facility] [address] [address] [address] Dee Humphrey Platelet mean volume (Bld) [Entitic vol] 9.6 fL Normal 9.5-13.5 [facility] Comment on above: Performed By: #### C BC #### [facility] [address] [address] [address] Dee Humphrey PLT 364 103/ul Normal 150-450 [facility] Comment on above: Performed By: #### C BC #### [facility] [address] [place] [address] Dr. Dee Humphrey RBC 4.33 106/ul Normal 4.20-5.40 [facility] Comment on above: Performed By: #### C BC #### [facility] [address] [place] [address] Dr. Dee Humphrey WBC 9.7 103/ul Normal 4.0-11.0 [facility] Comment on above: Performed By: #### C BC #### [facility] [address] [place] [address] Dr. Dee Humphrey LACTATE/LACTIC ACIDon 2021 Lactate [Moles/Vol] 1.1 mmol/L Normal 0.4-1.9 [facility] Comment on above: Performed By: #### P REGU, ERUR #### [facility] [address] [place] [address] Dr. Dee Humphrey LIPASEon 03-07-2022 Lipase [Catalytic activity/Vol] 79.0 U/L Normal 73.0-393.0 [facility] Comment on above: Performed By: #### C MP, LIPA #### [facility] [address] [place] [address] Dr. Dee Humphrey PROF 14(COMP METB)on 022 Albumin [Mass/Vol] 3.8 g/dL Normal 3.4-5.0 [facility] Comment on above: Performed By: #### C MP, LIPA #### [facility] [address] [place] [address] Dr. Dee Humphrey Albumin/Globulin [Mass ratio] 0.9 {ratio} Normal [facility] Comment on above: Performed By: #### C MP, LIPA #### [facility] [address] [place] [address] Dr. Dee Humphrey ALP [Catalytic activity/Vol] 80 U/L Normal 46-116 [facility] Comment on above: Performed By: #### C MP, LIPA #### [facility] [address] [place] [address] Dr. Dee Humphrey ALT [Catalytic activity/Vol] 27 U/L Normal 14-59 [facility] Comment on above: Performed By: #### C MP, LIPA #### [facility] [address] [address] [address] Dee Humphrey Anion gap [Moles/Vol] 9.5 mmol/L Normal [facility] Comment on above: Performed By: #### C MP, LIPA #### [facility] [address] [address] [address] Dee Humphrey AST [Catalytic activity/Vol] 13 U/L Critically low 15-37 [facility] Comment on above: Performed By: #### C MP, LIPA #### [facility] [address] [place] [address] Dr. Dee Humphrey Bilirubin [Mass/Vol] 0.1 mg/dL Critically low 0.2-1.0 [facility] Comment on above: Performed By: #### C MP, LIPA #### [facility] [address] [place] [address] Dr. Dee Humphrey Calcium [Mass/Vol] 9.0 mg/dL Normal 8.5-10.1 [facility] Comment on above: Performed By: #### C MP, LIPA #### [facility] [address] [place] [address] Dr. Dee Humphrey Chloride [Moles/Vol] 103 mmol/L Normal 98-107 [facility] Comment on above: Performed By: #### C MP, LIPA #### [facility] [address] [place] [address] Dr. Dee Humphrey CO2 [Moles/Vol] 27.1 mmol/L Normal 21.0-32.0 [facility] Comment on above: Performed By: #### C MP, LIPA #### [facility] [address] [place] [address] Dr. Dee Humphrey Creatinine [Mass/Vol] 0.86 mg/dL Normal 0.55-1.02 [facility] Comment on above: Performed By: #### C MP, LIPA #### [facility] [address] [address] [address] Dee Humphrey EGFR-AF EGYPTIAN >60 Normal >=60 [facility] Comment on above: Performed By: #### C MP, LIPA #### [facility] [address] [address] [address] Dee Humphrey EGFR-NON AF EGYPTIAN >60 Normal >=60 [facility] Comment on above: Performed By: #### C MP, LIPA #### [facility] [address] [address] [address] Dee Humphrey Globulin (S) [Mass/Vol] 4.1 g/dL Normal [facility] Comment on above: Performed By: #### C MP, LIPA #### [facility] [address] [place] [address] Dr. eDe Humphrey Glucose [Mass/Vol] 99 mg/dL Normal 74-106 [facility] Comment on above: Performed By: #### C MP, LIPA #### [facility] [address] [place] [address] Dr. Dee Humphrey Potassium [Moles/Vol] 3.6 mmol/L Normal 3.5-5.1 [facility] Comment on above: Performed By: #### C MP, LIPA #### [facility] [address] [place] [address] Dr. Dee Humphrey Protein [Mass/Vol] 7.9 g/dL Normal 6.4-8.2 [facility] Comment on above: Performed By: #### C MP, LIPA #### [facility] [address] [place] [address] Dr. Dee Humphrey Sodium [Moles/Vol] 136 mmol/L Normal 136-145 [facility] [facility] [place] Comment on above: Performed By: #### C MP, LIPA #### [facility] [address] [place] [address] Dr. Dee Humphrey Urea nitrogen [Mass/Vol] 12.0 mg/dL Normal 7.0-18.0 [facility] Comment on above: Performed By: #### C MP, LIPA #### [facility] [address], [place] [address] Dr. Dee Humphrey Urea nitrogen/Creatinine [Mass ratio] 14.0 mg/mg Normal [facility] Comment on above: Performed By: #### C YONIS RODRIGUEZ #### [facility] [address], [place] [address] Dr. Dee Humphrey Consent for COVID Vaccineon 08-09-2020 SARS-CoV-2 (COVID-19) RNA J LUIS+probe Ql (Unsp spec) [id number]:127 Normal [facility] Consent for Treatmenton 07-30 Consent for Treatment [id number]:127 Normal [facility] Coding Summary.on 08-07-2020 Coding Summary. CODING DATE: 08/07/2020 FINAL [facility] STATUS: PAYOR: Luzma APC DESCRIPTION [id number] [...] Yana Paredes Date Saved: 08/07/2020 02:46 pm [facility] Ambulatory Clinical Summaryo n 03-25-2020 Ambulatory Clinical Summary {[id number] [facility] Patient Educationon 03-19-20 Patient Education lurasidone (loo [...] ? an antiviral such as ritonavir; ? [place]'s wort; or ? seizure medicine such as [...] irritable, agitate (more content not included)... Normal [facility] Video Visit - Telehealtho n 02-23-2020 Video [...] interactive video communications from my office using [employer] due to the restrictions of the COVID-19 pandemic. No physical exam was conducted other than those areas of the body visible to telecommunications with the patient located at [address] [place] [phone], with no one else in attendance. If [...] (more content not included)... Normal [facility] Comment on above: Result Comment: Elec tronically Signed By: Deepa [facility], Maia Montero.mati\Date and Time Signed: 02/22/20 [...] interactive video communications from my office using [employer] due to the restrictions of the COVID-19 pandemic. No physical exam was conducted other than those areas of the body visible to telecommunications with the patient located at [address] [place] [phone], with no one else in attendance. If [...] (more content not included)... Normal [facility] Comment on above: Result Comment: Elec tronically Signed By: [facility]\Date and Time Signed: 02/11/20 14:46 EDT [...] interactive video communications from my office using [employer] due to the restrictions of the COVID-19 pandemic. No physical exam was conducted other than those areas of the body visible to telecommunications with the patient located at [address] [place] [address], with no one else in attendance. If [...] (more content not included)... Normal [facility] Comment on above: Result Comment: Elec tronically Signed By: Deepa [facility], Maia Montero.mati\Date and Time Signed: 02/11/20 [...] interactive video communications from my office using [employer] due to the restrictions of the COVID-19 pandemic. No physical exam was conducted other than those areas of the body visible to telecommunications with the patient located at [address] [place] [address], with no one else in attendance. If [...] (more content not included)... Normal [facility] Comment on above: Result Comment: Elec tronically Signed By: Deepa [facility], Maia Montero.br\Date and Time Signed: 01/29/20 21:44 EDT Video [...] interactive video communications from my office using [employer] due to the restrictions of the COVID-19 pandemic. No physical exam was conducted other than those areas of the body visible to telecommunications with the patient located at [address] [place] [address], with no one else in attendance. If [...] (more content not included)... Normal [facility] Comment on above: Result Comment: Elec tronically Signed By: Deepa [facility], Maia Ashley\.br\Date and Time Signed: 01/29/20 21:38 EDT Patient Educationon 01-28-20 20 Patient Education aripiprazole (KEMAR welsh) Say Deal What is the most [...] include drow (more content not included)... Normal [facility] Video Visit - Telehealtho n [...] interactive video communications from my office using [employer] due to the restrictions of the COVID-19 pandemic. No physical exam was conducted other than those areas of the body visible to telecommunications with the patient located at [address] [place], [place] [phone], with no one else in attendance. If [...] (more content not included)... Normal [facility] Comment on above: Result Comment: Elec tronically Signed By: Deepa [facility], Maia Ashley\.br\Date and Time Signed: 01/13/20 09:40 EDT Patient Educationon 01-13-20 Patient Education aripiprazole (KEMAR welsh) Say Deal Discmelhaleigh What is the most important information [...] include drow (more content not included)... Normal [facility] Video Visit - Telehealtho n [...] interactive video communications from my office using [employer] due to the restrictions of the COVID-19 pandemic. No physical exam was conducted other than those areas of the body visible to telecommunications with the patient located at [address] [place] [phone], with no one else in attendance. If [...] (more content not included)... Normal [facility] Comment on above: Result Comment: Elec tronically Signed By: Deepa [facility], Maia Montero.br\Date and Time Signed: 01/07/20 [...] interactive video communications from my office using [employer] due to the restrictions of the COVID-19 pandemic. No physical exam was conducted other than those areas of the body visible to telecommunications with the patient located at [address] [place] [phone], with no one else in attendance. If [...] (more content not included)... Normal [facility] Comment on above: Result Comment: Elec tronically Signed By: Deepa [facility], Maia Montero.mati\Date and Time Signed: 12/30/19 [...] interactive video communications from my office using [employer] due to the restrictions of the COVID-19 pandemic. No physical exam was conducted other than those areas of the body visible to telecommunications with the patient located at [address] [place] [address], with no one else in attendance. If [...] (more content not included)... Normal [facility] Comment on above: Result Comment: Elec tronically Signed By: Deepa [facility], Maia Montero.br\Date and Time Signed: 12/23/19 16:54 EDT Patient Educationon 12-23-19 Patient Education aripiprazole (KEMAR welsh) Say Deal [...] include drow (more content not included)... Normal [facility] Video Visit - Telehealtho n [...] interactive video communications from my office using [employer] due to the restrictions of the COVID-19 pandemic. No physical exam was conducted other than those areas of the body visible to telecommunications with the patient located at [address] [place], [place] [phone], with no one else in attendance. If [...] (more content not included)... Normal [facility] Comment on above: Result Comment: Elec tronically Signed By: Deepa [facility], Maia Ashley\.br\Date and Time Signed: 12/04/19 09:42 EDT Patient [...] (more content not included)... Normal [facility] Vital Signs Date Time Vital Sign Value Performing Clinician Facility 04-03-2024 13:59-0500 Body mass index (BMI) [Ratio] 42.07 kg/m2 boolino DO Work Phone: [facility] 04-03-2024 13:59-0500 Body weight 104.33 kg boolino DO Work Phone: [facility] 04-03-2024 13:59-0500 Diastolic blood pressure 78 mm[Hg] Johnathan Jorje DO Work Phone: [facility] 04-03-2024 13:59-0500 Systolic blood pressure 110 mm[Hg] Johnathan Jorje DO Work Phone: [facility] 03-21-2024 14:01-0500 Body mass index (BMI) [Ratio] 41.7 kg/m2 Liza Worthington PA Work Phone: [facility] 03-21-2024 14:01-0500 Body weight 103.42 kg Liza Worthington PA Work Phone: [facility] 03-21-2024 14:01-0500 Diastolic blood pressure 72 mm[Hg] Liza Kt PA Work Phone: [facility] 03-21-2024 14:01-0500 Systolic blood pressure 112 mm[Hg] Ilza Kt PA Work Phone: [facility] 03-11-2024 14:26-0500 Body mass index (BMI) [Ratio] 41.96 kg/m2 Liza Worthington PA Work Phone: [facility] 03-11-2024 14:26-0500 Body weight 104.06 kg Liza Worthington PA Work Phone: [facility] 03-11-2024 14:26-0500 Diastolic blood pressure 70 mm[Hg] Liza Worthington PA Work Phone: [facility] 03-11-2024 14:26-0500 Systolic blood pressure 120 mm[Hg] Liza Worthington PA Work Phone: [facility] 03-06-2024 11:20-0500 Body mass index (BMI) [Ratio] 41.34 kg/m2 Johnathan Jorje DO Work Phone: [facility] 03-06-2024 11:20-0500 Body weight 102.51 kg Johnathan Jorje DO Work Phone: [facility] 03-06-2024 11:20-0500 Diastolic blood pressure 68 mm[Hg] Johnathan Jorje DO Work Phone: [facility] 03-06-2024 11:20-0500 Systolic blood pressure 120 mm[Hg] Johnathan Jorje DO Work Phone: [facility] 02-21-2024 13:57-0400 Body mass index (BMI) [Ratio] 41.3 kg/m2 Johnathan Jorje DO Work Phone: [facility] 02-21-2024 13:57-0400 Body weight 102.42 kg Johnathan Jorje DO Work Phone: [facility] 02-21-2024 13:57-0400 Diastolic blood pressure 70 mm[Hg] Johnathan Jorje DO Work Phone: [facility] 02-21-2024 13:57-0400 Systolic blood pressure 100 mm[Hg] Johnathan Jorje DO Work Phone: [facility] 02-15-2024 13:03-0400 Body height 160 cm Malena Cardona MD Work Phone: [facility] 02-15-2024 13:03-0400 Body mass index (BMI) [Ratio] 39.65 kg/m2 Malena Cardona MD Work Phone: [facility] 02-15-2024 13:03-0400 Body weight 101.52 kg Malena Cardona MD Work Phone: [facility] 02-15-2024 13:03-0400 Diastolic blood pressure 74 mm[Hg] Malena Cardona MD Work Phone: [facility] 02-15-2024 13:03-0400 Heart rate 94 /min Malena Cardona MD Work Phone: [facility] 02-15-2024 13:03-0400 Systolic blood pressure 123 mm[Hg] Malena Cardona MD Work Phone: [facility] 01-24-2024 11:57-0400 Body mass index (BMI) [Ratio] 41.15 kg/m2 Johnathan Jorje DO Work Phone: [facility] 01-24-2024 11:57-0400 Body weight 102.06 kg Johnathan Jorje DO Work Phone: [facility] 01-24-2024 11:57-0400 Diastolic blood pressure 78 mm[Hg] Johnathan Jorje DO Work Phone: [facility] 01-24-2024 11:57-0400 Systolic blood pressure 124 mm[Hg] Johnathan Jorje DO Work Phone: [facility] 01-03-2024 15:02-0400 Body mass index (BMI) [Ratio] 42.07 kg/m2 Liza Kt PA Work Phone: [facility] 01-03-2024 15:02-0400 Body weight 104.33 kg Liza Worthington PA Work Phone: [facility] 01-03-2024 15:02-0400 Diastolic blood pressure 74 mm[Hg] Liza Kt PA Work Phone: [facility] 01-03-2024 15:02-0400 Systolic blood pressure 122 mm[Hg] Liza Worthington PA Work Phone: [facility] 12-25-2023 11:22-0400 Body mass index (BMI) [Ratio] 40.79 kg/m2 Johnathan Jorje DO Work Phone: [facility] 12-25-2023 11:22-0400 Body weight 101.15 kg Johnathan Jorje DO Work Phone: [facility] 12-25-2023 11:22-0400 Diastolic blood pressure 76 mm[Hg] Johnathan Jorje DO Work Phone: [facility] 12-25-2023 11:22-0400 Systolic blood pressure 122 mm[Hg] Johnathan Jorje DO Work Phone: [facility] 08-18-2023 14:24-0400 Body height 160.02 cm [facility] 08-18-2023 14:24-0400 Body mass index (BMI) [Ratio] 40.2 kg/m2 [facility] 08-18-2023 14:24-0400 Body temperature 98.4 [degF] [facility] 08-18-2023 14:24-0400 Body weight 103.02 kg [facility] 08-18-2023 14:24-0400 Diastolic blood pressure 81 mm[Hg] [facility] 08-18-2023 14:24-0400 Heart rate 101 /min [facility] 08-18-2023 14:24-0400 Respiratory rate 16 /min [facility] 08-18-2023 14:24-0400 SaO2% (BldA) [Mass fraction] 98 % [facility] 08-18-2023 14:24-0400 Systolic blood pressure 133 mm[Hg] [facility] 04-27-2023 16:30-0500 Body height 160.02 cm Sanaz [place] Other [facility] [employer] Other 04-27-2023 16:30-0500 Body mass index (BMI) [Ratio] 40.92 kg/m2 Sanaz [place] Other [email or web address] Other 04-27-2023 16:30-0500 Body temperature 98.2 [degF] Sanaz [place] Other [email or web address] Other 04-27-2023 16:30-0500 Body weight 104.78 kg Sanaz [place] Other [email or web address] Other 04-27-2023 16:30-0500 Respiratory rate 18 /min Sanaz Lokcwood Other [email or web address] Other 04-27-2023 16:30-0500 SaO2% (BldA) [Mass fraction] 99 % Sanaz [place] Other [email or web address] Other 05-10-2022 14:45-0500 Body height 160.02 cm Kaylah Han Other [email or web address] Other 05-10-2022 14:45-0500 Body mass index (BMI) [Ratio] 38.97 kg/m2 Kaylah Han Other [email or web address] Other 05-10-2022 14:45-0500 Body temperature 99.3 [degF] Kaylah Han Other [email or web address] Other 05-10-2022 14:45-0500 Body weight 99.79 kg Kaylah Han Other [email or web address] Other 06-29-2019 22:40-0500 Pulse (Heart Rate) 84 /min [facility] 06-29-2019 22:40-0500 Pulse Oximetry 97 % [facility] 06-29-2019 22:35-0500 BP Diastolic 56 mm[Hg] [facility] 06-29-2019 22:35-0500 BP Systolic 100 mm[Hg] [facility] 06-29-2019 21:11-0500 BMI (Body Mass Index) 33.1 kg/m2 [facility] 06-29-2019 21:11-0500 Body Temperature 97.8 [degF] [facility] 06-29-2019 21:11-0500 Body weight 84.8 kg [facility] 06-29-2019 21:11-0500 Height 160.02 cm [facility] 06-29-2019 21:11-0500 Respiratory Rate 20 /min [facility] Encounters Encounter Date Encounter Type Care Provider Facility Start: 04-22-2024 End: 04-22-2024 Clinisync Result Encounter Johnathan Recinos DO Work Phone: [facility] Unsolicited Start: 04-22-2024 End: 04-22-2024 Clinisync Result Encounter Johnathan Jorje DO Work Phone: [facility] Unsolicited Start: 04-22-2024 End: 04-22-2024 ambulatory Johnathan Jorje Facility:[facility] Start: 04-03-2024 End: 04-03-2024 Bamboo flowsheet Johnathan Jorje DO Work Phone: [facility] Start: 04-03-2024 End: 04-06-2024 Bamboo flowsheet Johnathan Jorje DO Work Phone: [facility] Start: 04-03-2024 End: 04-06-2024 External Result Encounter Johnathan Jorje DO Work Phone: [facility] Unsolicited Start: 04-03-2024 End: 04-03-2024 flow sheet Johnathan Jorje DO Work Phone: [facility] Comment on above: 28 weeks [...] flow sheet Liza Duque PA Work Phone: [facility] Comment on above: Second trimester pre gnancy; 26 weeks gestation of ; Elevated glucose tolerance test; Gestational diabetes mellitus (GDM), antepartum, gestational diabetes method of control unspecified Start: 03-14-2024 End: 03-14-2024 ambulatory JOHNATHAN R JORJE [facility] Start: 03-11-2024 End: 03-11-2024 Bamboo flowsheet Liza ANTONIO Work Phone: [facility] Start: 03-11-2024 End: 03-11-2024 Bamboo flowsheet Liza ANTONIO Work Phone: [facility] Start: 03-11-2024 End: 03-11-2024 ambulatory LIZA DUQUE Not Available Start: 03-11-2024 End: 03-11-2024 flow sheet Liza ANTONIO Work Phone: [facility] Comment on above: 24 weeks gestation o f ; Second trimester ; Acute cystitis with hematuria Start: 03-06-2024 End: 03-06-2024 Clinisync Result Encounter Johnathan Jorje DO Work Phone: [facility] External Department Unsolicited Start: 03-06-2024 End: 03-06-2024 Clinisync Result Encounter Johnathan Jorje DO Work Phone: [facility] External Department Unsolicited Start: 03-06-2024 End: 03-06-2024 ambulatory JOHNATHAN JORJE Not Available Start: 03-06-2024 End: 03-06-2024 flow sheet Johnathan Jorje DO Work Phone: [facility] Comment on above: 24 weeks gestation o f ; Second trimester ; Flank pain; Acute cystitis with hematuria Start: 02-26-2024 End: 02-26-2024 ambulatory [facility] Start: 02-21-2024 End: 02-21-2024 Bamboo flowsheet Johnathan Jorje DO Work Phone: [facility] Start: 02-21-2024 End: 02-21-2024 Bamboo flowsheet Johnathan Jorje DO Work Phone: [facility] Start: 02-21-2024 End: 02-21-2024 ambulatory JOHNATHAN JORJE Not Available Start: 02-21-2024 End: 02-21-2024 flow sheet Johnathan Jorje DO Work Phone: [facility] Comment on above: 22 weeks gestation o f ; Second trimester ; Diabetes mellitus screening Start: 02-15-2024 End: 02-15-2024 Office consultation new/estab patient 60 min Malena Cardona MD Work Phone: [facility] Comment on above: 21 weeks gestation o f (Primary Dx); Multigravida of advanced maternal age in second trimester; Pyelonephritis affecting in second trimester; Bipolar disease during in second trimester ([facility]); Obesity affecting in second trimester, unspecified obesity type; BMI 39.0-39.9,adult; History of section complicating ; Vapes nicotine containing substance; Current rao with 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, antepartum; History of delivery, currently Start: 02-15-2024 End: 02-15-2024 Orders Only Flor Lopez RN [facility] Comment on above: 21 weeks gestation o f (Primary Dx); Obesity affecting in second trimester, unspecified obesity type Start: 02-15-2024 End: 02-15-2024 ambulatory [facility] [place] Start: 02-09-2024 End: 02-09-2024 Evaluation and management of inpatient [facility] Start: 02-08-2024 End: 02-09-2024 Evaluation and management of inpatient NATO Hung LLOYD [facility] Start: 01-24-2024 End: 01-24-2024 Bamboo flowsheet Johnathan Jorje DO Work Phone: [facility] Start: 01-24-2024 End: 01-26-2024 Clinisync Result Encounter Johnathan Jorje DO Work Phone: [facility] Unsolicited Start: 01-24-2024 End: 01-27-2024 External Result Encounter Johnathan Jorje DO Work Phone: [facility] Unsolicited Start: 01-24-2024 End: 01-27-2024 External Result Encounter Johnathan Jorje DO Work Phone: [facility] Unsolicited Start: 01-24-2024 End: 01-24-2024 ambulatory JOHNATAHN JORJE Not Available Start: 01-24-2024 End: 01-24-2024 Patient encounter procedure Johnathan Jorje DO Work Phone: [facility] Start: 01-24-2024 End: 01-24-2024 Periodic preventive [...] Not Available Start: 08-18-2023 End: 08-18-2023 ambulatory [facility] Work Phone: Start: 08-18-2023 End: 08-18-2023 Patient encounter procedure [facility] Physician [facility] Work Phone: Start: 04-27-2023 End: 04-27-2023 ambulatory Sanaz [place] Other [email or web address] Other Start: 04-27-2023 Office outpatient vi sit 25 minutes Sanaz [place] [facility] Start: 05-10-2022 End: 05-10-2022 ambulatory Kaylah Lottault Other [email or web address] Other Start: 05-10-2022 Office outpatient ne w 20 minutes Kaylah Guille [facility] Start: 04-27-2022 End: 04-27-2022 ambulatory KIMBERLYN XIE Facility:[facility] Start: 03-07-2022 End: 03-07-2022 ambulatory KIMBERLYN XIE Facility:[facility] Start: 09-23-[address] JAZIEL HILL Facility :[facility] Start: 06-29-2019 End: 06-29-2019 Emergency department patient visit Kimberlyn Xie [facility] Procedures Date Procedure Procedure Detail Performing Clinician Start: 04-22-2024 [facility] UA (CLEAN/CATCH) STREET LIGHT INSPECTOR/MICRO IF IND. Johnathan Jorje DO Work Phone: Start: 04-03-2024 RECURRENT VAGINITIS (HTRX) Johnathan Jorje [...] Work Phone: Start: 03-06-2024 [facility] UA (CLEAN/CATCH) STREET LIGHT INSPECTOR/MICRO IF IND. Johntahan Jorje DO Work Phone: Start: 03-06-2024 Urnls dip stick/tablet rgnt non-auto w/o micrscp Johnathan Jorje DO Work Phone: Start: 02-21-2024 Urnls dip stick/tablet rgnt non-auto w/o micrscp Johnathan Jorje DO Work Phone: Start: 02-15-2024 H/O: section History of section complicating Malena Cardona MD Work Phone: Start: 01-24-2024 URETHRITIS/DISCHARGE PLUS VAGINITIS (H[facility]X) [facility] Work Phone: Start: 01-24-2024 AFP, SERUM, OPEN SPINA BIFIDA Johnathan Jorje DO Work Phone: Start: 01-24-2024 Urnls dip stick/tablet rgnt non-auto w/o micrscp [facility] Work Phone: Start: 01-24-2024 Microscopic observation [Identifier] in Cervix by Cyto stain Flor Lopez RN Start: 01-03-2024 Urnls dip stick/tablet rgnt non-auto w/o micrscp Liza ANTONIO Work Phone: Start: 08-18-2023 Quick Strep (POC) Plan of Treatment Date Care Activity Detail Author Start: 01-23-2027 Screening for malign ant neoplasm of cervix [facility] Start: 02-14-2025 Adult BMI Screening Adult BMI Screen ing [facility] Start: 02-14-2025 Tobacco Screening Tobacco Screening [facility] Start: 02-14-2025 End: 02-14-2025 US MFM with or without consult US MFM with or without consult Imaging Routine 21 weeks gestation of Obesity affecting in second trimester, unspecified obesity type Expected: 02/14/2025 (Approximate), Expires: 02/14/2025 [facility] Work Phone: Comment on above: Expected: 02/14/2025 (Approximate), Expires: 02/14/2025 Start: 05-09-2024 End: 05-09-2024 Professional / ancillary services management 05/09/2024 8:30 AM EST Ancillary Procedure [facility] [address] [place] [id number] [facility] Start: 04-03-2024 End: 04-03-2024 Patient encounter procedure [facility] Comment on above: Arrived Start: 04-03-2024 End: 04-03-2024 Professional / ancillary services management 04/03/2024 1:00 PM EST Ancillary Procedure [facility] [address] [facility] [place] [place] [id number] [facility] Start: 03-21-2024 End: 03-21-2025 Measurement of glucose 3 hours after glucose challenge for glucose tolerance test Glucose tolerance, 3 hours Lab Routine Elevated glucose tolerance test Expected: 03/21/2024 (Approximate), Expires: 03/21/2025 [facility] Work Phone: Comment on above: Expected: 03/21/2024 (Approximate), Expires: 03/21/2025 Start: 03-21-2024 End: 03-21-2025 US for US OB SCAN FOR GROWTH Imaging Routine Gestational diabetes mellitus (GDM), antepartum, gestational diabetes method of control unspecified Expected: 03/21/2024 (Approximate), Expires: 03/21/2025 [facility] Comment on above: Expected: 03/21/2024 (Approximate), Expires: 03/21/2025 Start: 03-21-2024 End: 03-21-2024 Patient encounter procedure 03/21/2024 1:30 PM EST Routine [facility] [address] [facility] [place] [place] [id number] Liza Duque PA [address] [place], [place] [id number] [facility] Start: 03-14-2024 End: 03-14-2024 Patient encounter procedure 03/14/2024 9:45 AM EST Appointment [facility] [address] [place] [place] [address] [facility] Start: 02-22-2024 End: 02-22-2024 Patient encounter procedure 02/22/2024 10:15 AM EDT Appointment [facility] [address] [place] [address] [facility] Start: 02-21-2024 End: 02-20-2025 CBC panel - Blood by Automated count CBC Lab Routine Diabetes mellitus screening Expected: 02/21/2024 (Approximate), Expires: 02/20/2025 [facility] Work Phone: Comment on above: Expected: 02/21/2024 (Approximate), Expires: 02/20/2025 Start: 02-21-2024 End: 02-20-2025 Measurement of glucose 1 hour after glucose challenge for glucose tolerance test Glucose tolerance, 1 hour Lab Routine Diabetes mellitus screening Expected: 02/21/2024 (Approximate), Expires: 02/20/2025 [facility] Comment on above: Expected: 02/21/2024 (Approximate), Expires: 02/20/2025 Start: 02-21-2024 End: 02-21-2024 Patient encounter procedure 02/21/2024 1:50 PM EDT Routine [facility] [address] [place] [id number] Johnathan Recinos, [address] [place] [address] [facility] Start: 01-24-2024 End: 02-23-2024 Alpha fetoprotein, maternal Alpha fetoprotein, maternal Lab Routine 18 weeks gestation of Expected: 01/24/2024 (Approximate), Expires: 02/23/2024 [facility] Comment on above: Expected: 01/24/2024 (Approximate), Expires: 02/23/2024 Start: 01-22-2024 End: 01-22-2024 Patient encounter procedure 01/22/2024 10:20 AM EDT Routine [facility] [address] [place] [id number] Johnathan Recinos, DO [address] [facility] [place] [address] [facility] Start: 12-31-2023 COVID-19 Vaccine ( season) COVID-19 Vaccine ( season) [facility] Start: 12-31-[address] [facility] Start: 10-11-2021 DTaP,Tdap and Td Vaccines (2 - Td or Tdap) DTaP,Tdap and Td Vaccines (2 - Td or Tdap) [facility] Start: 2017 Screening for malign ant neoplasm of cervix [facility] Start: 2008 Screening for malign ant neoplasm of cervix Pap Smear [facility] Start: 2005 Adult BMI Follow Up Plan Adult BMI Follow Up Plan [facility] Start: 1999 Depression Screening Depression Scre [facility] Bacteria identified in Urine by Culture Urine culture Microbiology Routine 24 weeks gestation of Second trimester Ordered: 03/06/2024 [facility] Work Phone: Comment on above: Ordered: 03/06/2024 Bacteria identified in Urine by Culture Urine culture Microbiology Routine Flank pain Acute cystitis with hematuria Urinary tract infection without hematuria, site unspecified Ordered: 04/03/2024 [facility] Work Phone: Comment on above: Ordered: 04/03/2024 CHLAMYDIA TRACHOMATI S (GENITO/STI) CHLAMYDIA TRACHOMATIS (GENITO/STI) Lab Routine Exposure to STD Ordered: 01/24/2024 [facility] Comment on above: Ordered: 01/24/2024 Cytology Cervical or vaginal smear or scraping study Pap Smear Pathology and Cytology Routine Well woman exam with routine gynecological exam Ordered: 01/24/2024 [facility] Comment on above: Ordered: 01/24/2024 Human papilloma viru s DNA [Presence] in Unspecified specimen by Probe with amplification HPV DNA probe, amplified Microbiology Routine Well woman exam with routine gynecological exam Ordered: 01/24/2024 [facility] Comment on above: Ordered: 01/24/2024 Neisseria gonorrhoea e DNA [Presence] in Unspecified specimen by J LUIS with probe detection Neisseria gonorrhea DNA probe, direct Lab Routine Exposure to STD Ordered: 01/24/2024 [facility] Comment on above: Ordered: 01/24/2024 Patient Education Epinephrine (B y injection) Anaphylaxis (ED) General Allergic Reaction (ED) [facility] Patient referral [facility] SURESWAB(R) ADVANCED VAGINITIS PLUS, TMA SURESWAB(R) ADVANCED VAGINITIS PLUS, TMA Pathology and Cytology Routine Vaginal discharge Ordered: 01/24/2024 [facility] Work Phone: Comment on above: Ordered: 01/24/2024 Immunizations Immunization Date Immunization Notes Care Provider Butch sims 06-02-2008 influenza virus vacc ine, unspecified formulation Johnathan Jorje DO Work Phone: [facility] Payers Date Payer Category Payer Self-pay [id number] 2024 Private Health Insurance [facility] MEDICAID [id number] 2023 [facility] [id number] 2023 Blue Cross Blue Shie ld Managed Care - PPO ANTHEM Member Subscriber Plan / Payer (Effective 2023-Present) Name: Maria De Jesus Ruiz Relation to Subscriber: Spouse Name: SANTINO RUIZ Date of : 1983 (Home) Address: [address] [place] [address] Payer ID: [id number] (NAIC) Type: Not on file Address: [address] [place] [id number] 2023 Unknown BCBS BCBS xxxxxx [id number] 2023-Present [phone] [address] [place] [address] [id number] 1987 Unknown [id number] 2.16840.1.336307.3.579. 2.593 1987 Unknown [id number] 2.16840.1.349511.3.579. 2.593 1987 Unknown [id number] 2.16.840.1.317215.3.579. 2.593 1987 Unknown [id number] 2.16.840.1.476887.3.579. 2.1286 1987 Unknown [id number] 2.16.840.1.710375.3.579. 2.1286 1987 Unknown [id number] 2.16.840.1.243466.3.579. 2.1286 1987 Unknown [id number] 2.16.840.1.490180.3.579. 2.1286 1987 Unknown [id number] 2.16.840.1.690572.3.579. 2.1286 1987 Unknown [id number] 2.16.840.1.125359.3.579. 2.6 1987 Unknown [id number] 2.16.840.1.916291.3.579. 2.1259 1987 Unknown [id number] 2.16.840.1.970467.3.579. 2.9 1987 Unknown [id number] 2.16.840.1.465904.3.579. 2.9 1987 Unknown [id number] 2.16.840.1.325945.3.579. 2.1258 1987 Unknown [id number] 2.16.840.1.104312.3.579. 2.9 1987 Unknown [id number] 2.16.840.1.892619.3.579. 2.9 1987 Unknown [id number] 2.16.840.1.251450.3.579. 2.9 1987 Unknown [id number] 2.16.840.1.084404.3.579. 2.9 1959 Self-pay [id number] 1959 Unknown [id number] Private Health Insurance [id number] Unknown [id number] 2.16.840.1.960490.3.579. 2.531 Social History Date Type Detail Facility Start: 06-29-2019 End: 08-18-2023 Tobacco smoking status [facility] Smoker (finding) [facility] Start: 1987 Sex Assigned At Female [facility] Start: 06-10-2020 End: 02-15-2024 Sex Assigned At [email or web address] Other Start: 02-15-2024 Tobacco smoking status NHIS Ex-smoker [facility] Start: 02-15-2024 Tobacco use and exposure Smokeless tobacco non-user [facility] Start: 02-15-2024 Alcoholic beverage intake Lifetime non-drinker (finding) [facility] Start: 06-10-2020 End: 02-15-2024 History of Social function [facility] Childcare Unknown [facility] Start: 02-15-2024 Tobacco Comment PT IS A VAPER [facility] Start: 10-03-2023 [facility] Start: 1987 Sex assigned at Not on file [facility] Start: 12-02-2014 Sex Female (finding) [facility] Start: 02-08-2024 Sexual orientation Heterosexual (finding) [facility] Tobacco smoking stat [facility] Tobacco smoking consumption unknown [facility] Start: 10-26-2023 Gender identity Identifies as female gender (finding) [facility] Medical Equipment Procedure Code Equipment Code Equipment Origin al Text Equipment Identifier Dates 1 strip by In Vi tro route Daily Use in the morning prior to breakfast, 1 hour after each meal for a total of 4times daily. [id number] Start: 03-25-2024 End: 04-24-2024 1 each by In Vit ro route Daily Use to check FSBS four times daily [id number] Start: 03-25-2024 End: 04-24-2024 Goals Date Patient Goal Desired Activity /State Personal health goal Comment on above: Formatting of this n ote might be different from the original. Evaluation of progress towards goal: go home today Clinical Notes 12-02-2019 to 04-03-2024 Gayle Hendricks, MARIA E - 04/03/2024 1:40 PM PACO Snider - 03/21/2024 1:30 PM Claude Guillermo, MARIA E - 03/11/2024 1:50 PM Meghna Hendricks, INDUSTRIAL ENGINEERING PROFESSOR - 03/06/2024 10:50 AM EST Note Date & Type Note Facility 04-03-2024 History of Present illness Narrative Reason for Appointment: Patient ID: Mikalea Ruiz is a 38 y.o. female who presents for Routine Visit Patient presents today for Return OB appointment. MEDICATIONS Current Outpatient Medications Medication Instructions Alcohol Swabs (Alcohol Prep Pad) 70 % pads 1 Pad, Topical, Daily, Use four times daily to check FSBS. aspirin 81 mg, Daily Blood Glucose Monitoring Suppl (D-Devolia Glucometer) w/Device kit 1 kit, Does not [...] Medical History: Diagnosis Date Bipolar 1 disorder ([facility]/HCC) HISTORY PAST MEDICAL HISTORY SOCIAL HISTORY Past Medical History: Diagnosis Date Bipolar 1 disorder ([facility]) Social History Tobacco Use Smoking status: [...] nursing note reviewed. Exam conducted with a informatics physician present. Vitals: Estimated body mass index is [...] Johnathan Recinos DO documented in this encounter [facility] 03-21-2024 History of Present illness Narrative Reason [...] Medical History: Diagnosis Date Bipolar 1 disorder ([facility]) HISTORY PAST MEDICAL HISTORY SOCIAL HISTORY Past Medical History: Diagnosis Date Bipolar 1 disorder ([facility]) Social History Tobacco Use Smoking status: [...] hour glucose order to have done at [facility]. Patient DECLINES 3 hour gtt and would like to start testing FSBS--Patient will be referred to Diabetic Edu at [facility]. Follow Up: Patient is to return to office in 2 week for routine OB appointment. Documented by Nettie Frazier MA on behalf of: PACO Freed documented in this encounter [facility] 03-11-2024 History of Present illness Narrative Reason [...] nursing note reviewed. Exam conducted with a informatics physician present. Vitals: Estimated body mass index is [...] of . Nursing will reach out to [facility] to inquire about culture results. Patient does have follow up appointment with Maternal Medicine. Patient to return to clinic in 4 weeks for routine OB appointment. Documented by Barbara Guillermo LPN on behalf of: PACO Freed documented in this encounter [facility] 03-06-2024 History of Present illness Narrative Reason [...] nursing note reviewed. Exam conducted with a informatics physician present. Vitals: Estimated body mass index is [...] Johnathan Recinos DO documented in this encounter [facility] 02-21-2024 History of Present illness Narrative Reason [...] Medical History: Diagnosis Date Bipolar 1 disorder ([facility]) HISTORY PAST MEDICAL HISTORY SOCIAL HISTORY Past Medical History: Diagnosis Date Bipolar 1 disorder ([facility]) Social History Tobacco Use Smoking status: [...] nursing note reviewed. Exam conducted with a informatics physician present. Vitals: Estimated body mass index is [...] Johnathan Recinos DO documented in this encounter [facility] 02-15-2024 History of Present illness Narrative [facility] [...] Medical History: Diagnosis Date Bipolar 1 disorder ([facility]) Depression PSHIST: Past Surgical History: Procedure [...] 4. Bipolar disease during in second trimester ([facility]) I reviewed with the patient that [...] of withdrawal and extrapyramidal effects on reviewed. Cutting And Printing Machine Operator should be notified. Lack of controlled human [...] . For prevention of venous thromboembolism in [id number] groups, pharmacologic thromboprophylaxis should be considered in [...] prevention Cervical length at 22 weeks at [facility] Follow up survey scheduled Serial growth assessments every 4 weeks after the anatomy scan can be done at OB office. ventricles should be measured at each US. If >=10 mm or concern for hydrocephalus refer to [facility]. If you would like [facility] to do the growth US please [...] Malena Cardona MD, FACOG (she/hers) Maternal- Medicine [facility] [address] [place] [address] This document was created with [employer] technology. Though I make every effort to review the dictation as it is transcribed, on occasion the spoken word can be misinterpreted by the technology leading to inappropriate words, phrases, or sentences. This note is addressed to the requesting provider as a consultation for clinical guidance. Specific medical abbreviations are occasionally used and those are generally approved by the [place]?Board of?Obstetrics and?Gynecology?as well as?Jeri lane abbreviations. The above plan of care was based solely on the diagnoses for which a consultation was requested. ?More frequent testing may be indicated based on her other medical/obstetrical conditions. The management of other or medical conditions is beyond the scope of requested consultation and will continue to be followed by the primary hide and skin colerer or primary care provider. Note to patient: [...] yes Have you been seen here at [facility] in a previous ? yes Recent ER visits or hospitalizations? 02/07 kidney and bladder infection Bring blood sugar log or meter with you today? (Please bring them with you for every visit at [facility]) na Flu vaccine (Mar-June)? na Any concerns that you would like me to mention to the provider today? no documented in this encounter [facility] 01-24-[facility]24 History of Present illness Narrative Reason [...] 4 section, pt to be referred to [facility] for level II ultrasound. Pt to [...] Johnathan Recinos DO documented in this encounter [facility] 01-03-2024 History of Present illness Narrative Reason [...] Medical History: Diagnosis Date Bipolar 1 disorder ([facility]/HCC) HISTORY PAST MEDICAL HISTORY SOCIAL HISTORY [...] of: PACO Freed documented in this encounter [facility] 12-25-2023 History of Present illness Narrative Reason [...] nursing note reviewed. Exam conducted with a informatics physician present. Vitals: Estimated body mass index is [...] or undercooked meat, and [facility] Patient has been consulted regarding any further do's and don'ts of . Patient voiced understanding and all questions and concerns were answered. Patient complaints of nausea not helped by oral medications. [facility] Patient aware that [facility] will reach out to her to initiate therapy. Follow Up: Patient is to return in 4 weeks for routine OB appointment. Documented by Barbara Guillermo LPN on behalf of: Liza Duque PA-C documented in this encounter [facility] 04-27-2023 Evaluation note Encounter Date Diagnosis Assessment [...] condition. Mar, Sore throat (ICD-10 - J02.9) [email or web address] Other 01-10-2023 Evaluation note* Encounter Date Diagnosis [...] weeks for the cough to go away [email or web address] Other 11-07-2022 NoteIndication: Abdominal pain. Comparison: None [...] Electronically authenticated by: SURJIT FREITAS Date: 2022-03-07 20:49[facility]11-19-2020 NoteI Staff This visit was conducted via phone communications from my office due to the restrictions of the COVID-19 pandemic. No physical exam was conducted due to audio only communication with the patient located at [address] [place] [phone], with no one else. If it is determined that the patientshould be evaluated in person, the patient will be directed to the appropriate clinic or venue. Thepatient or their guardian verbally consented to this visit. Phone time was 15 minutes discussing health issues with counseling and coordination of care. Subjective Interval History/HPI Patient presents today for follow up via telehealth phone from [facility]. Patient started Latuda 20mg last [...] tab(s), Refills(s) 2, Pharmacy: [facility]/pharmacy #[id number], 161, cm, 12/23/19 10:18:00 EDT, Height/Length Dosing, 82, kg, 12/23/19 10:18:00 EDT, Weight Dosing Orders: lurasidone, 20 mg = 1 tab(s), Oral, Daily, with 350 calories; begin this dose first then progress to next dose of 40mg, X 1 week(s), # 7 tab(s), Refills(s) 0, Pharmacy: [facility]/pharmacy #[id number], 161, cm, 12/23/19 10:18:00 EDT, Height/Length Dosing, 82, kg, 12/23/19 10:... lurasidone, 40 mg = 1 tab(s), Oral, Daily, with 350 calories, # 30 tab(s), Refills(s) 1, Pharmacy: [facility]/pharmacy #[id number], 161, cm, 12/23/19 10:18:00 EDT, [...] disorder) Hidr (more content not included)...[facility]: Result Comment: Electronically Signed By: Carlota RODRIGUEZ CNP\.br\Date and Time Signed: 03/19/20 14:27 [id number] NoteI Staff This visit was conducted via two-way, real-time interactive video communications from my office using [employer] due to the restrictions of the COVID-19 pandemic. No physical exam was conducted other than those areas of the body visible to telecommunications with the patient located at [address] [place] [phone], with no one else in attendance. If [...] Ordered: TELEHEALTH Office Visit Level 3 Est 32297 General Treatment Plan Maintain medication regimen _Improve [...] Employed, 03/18/2019 Home/Environment Sylvia (more content not included)...[facility] Hospital[facility] on above: Result Comment: Electronically Signed By: Carlota RODRIGUEZ CNP.mati\Date and Time Signed: 03/05/20 13:32 [id number] NoteI Staff This visit was conducted via two-way, real-time interactive video communications from my office using [employer] due to the restrictions of the COVID-19 pandemic. No physical exam was conducted other than those areas of the body visible to telecommunications with the patient located at [address] [place] [address], with no one else in attendance. If [...] tab(s), Refills(s) 1, [id number] 161, cm, 12/23/19 10:18:00 EDT, Height/Length Dosing, 82, kg, 12/23/19 10:18:00 EDT, Weight Dosing alprazolam, 0.5 mg = 1 tab(s), Oral, TID, PRN for anxiety, # 30 tab(s), Refills(s) 1, Pharmacy: [facility]/pharmacy #[id number], 161, cm, 12/23/19 10:18:00 EDT, Height/Length Dosing, 82, kg, 12/23/19 10:18:00 EDT, Weight Dosing aripiprazole, See Instructions, 1.5 tab po qAM, # 30 tab(s), Refills(s) 2, Pharmacy: [facility]/pharmacy #[id number], 161, cm, 12/23/19 10:18:00 EDT, Height/Length Dosing, 82, kg, 12/23/19 10:18:00 EDT, Weight Dosing aripiprazole, See Instructions, 1 tab po qAM, # 30 tab(s), Refills(s) 5, Pharmacy: [facility]/pharmacy #[id number], 161, cm, 12/23/19 10:18:00 EDT, Height/Length Dosing, 82, kg, 12/23/19 10:18:00 EDT, Weight Dosing cyclobenzaprine, 10 mg = 1 tab(s), Oral, TID, PRN for spasm, # 30 tab(s), Refills(s) 1, Pharmacy: [facility]/pharmacy #[id number], 161, cm, 06/13/19 14:39:00 EST, Height/Length Measured, 82, kg, 06/13/19 14:39:00EST, Weight Measured cyclobenzaprine, 10 mg = 1 tab(s), Oral, TID, PRN for spasm, # 30 tab(s), Refills(s) 1, Pharmacy: [facility]/pharmacy #[id number], 161, cm, 12/23/19 10:18:00 EDT, Height/Length Dosing, 82, kg, 12/23/19 10:18:00 EDT, Weight Dosing General Treatment Plan Maintain medication regimen _Improve mood stability _Improve anxiety control _Improve social and interpersonal functioning Clinical Global Impression 62 Prognosis progressing Follow-up With When Contact Information Carlota RODRIGUEZ CNP In 4 weeks Additional Instructions: (more content not included)...[facility] HospitalComment on above:Result Comment: Electronically Signed By: Carlota RODRIGUEZ CNP\.br\Date and Time Signed: 01/27/20 22:35 [id number] NoteI Staff This visit was conducted via two-way, real-time interactive video communications from my office using [employer] due to the restrictions of the COVID-19 pandemic. No physical exam was conducted other than those areas of the body visible to telecommunications with the patient located at [address] [place] [phone], with no one else in attendance. If [...] Ordered: TELEHEALTH Office Visit Level 3 Est 66970 General Treatment Plan Maintain medication regimen _Improve [...] Smokeless Tob (more content not included)...[facility] HospitalComment on above:Result Comment: Electronically Signed By: Carlota RODRIGUEZ CNP\.br\Date and Time Signed: 01/13/20 09:11 [id number] NoteI Staff This visit was conducted via two-way, real-time interactive video communications from my office using [employer] due to the restrictions of the COVID-19 pandemic. No physical exam was conducted other than those areas of the body visible to telecommunications with the patient located at [address] [place] [address], with no one else in attendance. If [...] tab(s), Refills(s) 1, Pharmacy: [facility]/pharmacy #[id number], 161, cm, 12/23/19 10:18:00 EDT, Height/Length Dosing, 82, kg, 12/23/19 10:18:00 EDT, Weight Dosing alprazolam, 0.5 mg = 1 tab(s), Oral, TID, PRN for anxiety, # 30 tab(s), Refills(s) 1, Pharmacy: [facility]/pharmacy #[id number], 161, cm, 06/13/19 14:39:00 EST, Height/Length Measured, 82, kg, 06/13/19 14:39:00 EST, Weight Measured aripiprazole, See Instructions, 1 tab po qAM, # 30 tab(s), Refills(s) 0, Pharmacy: [facility]/pharmacy #[id number], 161, cm, 12/23/19 10:18:00 EDT, [...] Social History (more content not included)...[facility] HospitalComment on above:Result Comment: Electronically Signed By: Carlota RODRIGUEZ CNP\.mati\Date and Time Signed: 12/23/19 16:37 [id number] NoteHPI Staff This visit was conducted via two-way, real-time interactive video communications from my office using [employer] due to the restrictions of the COVID-19 pandemic. No physical exam was conducted other than those areas of the body visible to telecommunications with the patient located at [address] [place] [address], with no one else in attendance. If [...] q24hr, # 30 tab(s), Refills(s) 2, Pharmacy: [facility]/pharmacy #[id number],161, cm, 06/13/19 14:39:00 EST, Height/Length Measured, 82, kg, 06/13/19 14:39:00 EST, Weight Measured cyclobenzaprine, 10 mg = 1 tab(s), Oral, TID, PRN for spasm, # 30 tab(s), Refills(s) 1, Pharmacy: [facility]/pharmacy #[id number], 161, cm, 06/13/19 14:39:00 EST, [...] 03/18/2019 Home/Environment (more content not included)...[facility] HospitalComment on above:Result Comment: Electronically Signed By: Carlota RODRIGUEZ CNP\.br\Date and Time Signed: 12/02/19 16:38 EDTChief complaint+Reason for visit Narrative* Chief Complaint Nausea, diarrhea, fe zhou Reason for Visit Contact with and (guillen spected) exposure to covid-19 Sore throat [facility] Work Phone: Evaluation note* Diagnosis Onset Date Resolution Status Contact with and (suspected) exposure to covid-19 noneactive Sore throat noneactive [facility] Work Phone: Evaluation note* Diagnosis 21 weeks gestation of - Primary Obesity affecting in second trimester, unspecified obesity type [facility] Diagnosis 21 weeks gestation of - Primary Multigravida of advanced maternal age in second trimester Pyelonephritis affecting in second trimester Bipolar disease during in second trimester ([facility]) Obesity affecting in second trimester, unspecified obesity type BMI 39.0-39.9,adult History of section complicating Previous delivery, unspecified as to episode of care or not applicable Vapes nicotine containing substance Current rao with 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, antepartum History of delivery, currently with history of pre-term labor documented [facility]* Diagnosis 22 weeks gestation of Second trimester state, incidental Diabetes mellitus screening Screening for diabetes mellitus documented in this encounter [facility] HealthcareEvaluation note* Diagnosis 24 weeks gestation of Second trimester state, incidental Flank pain Abdominal pain, unspecified site Acute cystitis with hematuria documented in this encounter [facility] HealthcareEvaluation note* Diagnosis 24 weeks gestation of Second trimester state, incidental Acute cystitis with hematuria documented in this encounter [facility] HealthcareEvaluation note* Diagnosis Second trimester state, incidental 26 weeks gestation of Elevated glucose tolerance test Impaired glucose tolerance test Gestational diabetes mellitus (GDM), antepartum, gestational diabetes method of control unspecified documented in this encounter [facility] HealthcareEvaluation note* Diagnosis 28 weeks gestation of Third trimester state, incidental Flank pain Abdominal pain, unspecified site Acute cystitis with hematuria Urinary tract infection without hematuria, site unspecified documented in this encounter [facility] HealthcareEvaluation note* Diagnosis Second trimester state, incidental documented in this encounter [facility] HealthcareEvaluation note* Diagnosis Rash Rash and other nonspecific skin eruption Second trimester state, incidental documented in this encounter [facility] HealthcareEvaluation note* Diagnosis 18 weeks gestation of Well woman exam with routine gynecological exam Routine gynecological examination Screening, , for anatomic survey Encounter for anatomic survey Exposure to STD Vaginal discharge Leukorrhea, not specified as infective documented in this encounter [facility] HealthcareHistory general Narrative - Reported* Type Description Date Medical History Bipolar Surgical History appendectomy Surgical History x 3 Hospitalization History see above surgical histo ry [email or web address] Other InstructionsNot on filedocumented in this encounter [facility] SystemInst[facility]* Attachments The following attachments cannot be sent through Care Everywhere. * Preeclampsia ([place]izen [place]) * Movement ([place]) [facility] Advance Directives No Advanced Directives Records [...] may need to be seen by an auto top mechanic if you have other events like this without definite egg exposure. Summary Purpose Family History No Family History Records Found Relationship Condition Age at Onset Recorded Date/T alo father Diabetes mellitus Unknown Hypertension Unknown Additional Source Comments INFORMATION SOURCE (unrecogn ized section and content) DATE CREATED AUTHOR 10/30/2020 [facility] DATE CREATED AUTHOR AUTHOR'S ORGANIZ ATION 04/29/2022 [facility] DATE CREATED AUTHOR AUTHOR'S ORGANIZ ATION 03/16/2024 [facility] DATE CREATED AUTHOR AUTHOR'S ORGANIZ ATION 03/24/2024 [facility] DATE CREATED AUTHOR AUTHOR'S ORGANIZ ATION 04/25/2024 [facility] REASON FOR VISIT (unrecogniz ed section and [...] August 18, 2023 End: August 18, 2023 Market Gard[employer] Relationship Specialty Start Date End Date No Pcp, [place] [id number] PCP - General Family Medicine 03/12/19 [employer] Relationship Specialty Start Date End Date No Pcp, [place] [id number] PCP - General Family Medicine 03/12/19 Goals [...] BE BASED ON THE PRIMARY CLINICAL RECORDS. [facility] [employer] [facility]. provides no warranty or guarantee of the accuracy or completeness of information in this document.
[2024-05-13 15:56] VITALS: BP 120/71; PULSE 106
--- NOTE | 2024-05-13 16:03 | US_ITS ---
[address] [address] Patient Name: PROSPER RUIZ MRN: [id number] date: 1985 Sex: F Assigned Patient Location: [facility] Current Patient Location: [facility] Accession/Order Number: [id number] Exam Date: 05/13/2024 16:53 Report Date: 05/13/2024 17:59 At the request of: MAKENZIE SO Procedure: US OB BPP w non-stress EXAM: US OB BPP w non-stress HISTORY: . Vaginal bleeding . COMPARISON: None. TECHNIQUE: Grayscale and color imaging was performed FINDINGS: There is evidence of an intrauterine in the cephalic presentation with a heart rate of 127. Amniotic fluid index is 18.2 cm. motion 2, tone 2, breathing 2, and fluid volume 2 for a score of 8/8. US/US OB BPP w non-stress IMPRESSION: 1. Intrauterine in the cephalic presentation with a heart rate of 127. 2. Biophysical profile 8/8. Electronically authenticated by: [employer] Date: 05/13/2024 17:59
--- NOTE | 2024-05-13 16:03 | US_ITS ---
[address] [address] Patient Name: PROSPER RUIZ MRN: [id number] date: 1985 Sex: F Assigned Patient Location: [facility] Current Patient Location: [facility] Accession/Order Number: [id number] Exam Date: 05/13/2024 16:53 Report Date: 05/13/2024 18:01 At the request of: MAKENZIE SO Procedure: US OB cervical length EXAM: US OB cervical length HISTORY: . VAGINAL BLEEDING . COMPARISON: None. TECHNIQUE: Grayscale and color imaging was performed FINDINGS: There is evidence of an intrauterine in the cephalic presentation. heart rate is 127. Amniotic fluid volume is 18.2 which is between the fifth and 95th percentile. Largest pocket of fluid measures 5.8 cm. The cervix appears closed and measures 3.7 cm. US/US OB cervical length IMPRESSION: 1. Intrauterine in the cephalic presentation with a heart rate of 127. 2. The cervix appears closed and measures 3.7 cm. Electronically authenticated by: [employer] Date: 05/13/2024 18:01
[2024-05-13 16:35] VITALS: BP 120/66; PULSE 90
== END 2024-05-13 17:45 | disposition home or self-care (01) ==
PROVIDERS: Admitting Provider Obstetrics & Gynecology; PCP Nurse Practitioner Family; Visit Provider Obstetrics & Gynecology
DX: O46.90 Antepartum hemorrhage, unspecified, unspecified trimester (principal); Z3A.00 Weeks of gestation of pregnancy not specified
CPT/HCPCS: 76817; 76818; G0378; G0379

== ENCOUNTER 2024-05-15 21:16 | Observation (INO) | payer BC, OTHER, SELFPAY ==
--- OUTSIDE RECORDS SUMMARY | 2024-05-15 21:21 | XMS_ITS | CCD ---
Author Organization [facility] Care Team Providers Care Clinical Project Leader Name Role Phone Kimberlyn Xie Primary Care [...] NO PCP, NO PCP Primary Care Unavailable Jorje, Johnathan Attending Unavailable Jorje, Johnathan Admitting Unavailable JORJE, JOHNATHAN Attending Unavailable LIZA DUQUE Attending Unavailable JORJE, JOHNATHAN Attending Unavailable JORJE, JOHNATHAN Attending Unavailable JORJE, JOHNATHAN Attending Unavailable KTLIZA Attending Unavailable KT, LIZA Attending Unavailable JORJE, JOHNATHAN Attending Unavailable LIZA DUQUE Attending Unavailable Unavailable Unavailable Unavailable Allergies Allergy Classification Reported Allergen(s) Allergy Type Date of Onset Reaction(s) Facility (3 sources) egg extract; 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: [egg] Drug Allergy 08-18-19 Vomiting [facility] (20 sources) Sulfamethoxazole; 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: [SULFAMETHOXAZOLE] Drug Allergy 08-18-19 [facility] (20 sources) Trimethoprim; 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: [TRIMETHOPRIM] Drug Allergy 08-18-19 24 [facility] (3 sources) Fish Containing Products; 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: [Fish Containing Products] Propensity to adverse reactions 08-18-19 Difficulty Breathing [facility] (1 source) Sulfamethoxazole / Trimethoprim Drug Allergy 02-04-20 13 [facility] (20 sources) Sulfamethoxazole / Trimethoprim Drug Allergy 11-24-19 24 hives, [facility] Other (20 sources) Egg-Derived Products Drug Allergy [...] (six) hours as needed for pain. Active [id number] 200 actuat albuterol 0.09 mg/actuat metered dose [...] aspirin 81 mg delayed release oral tablet (20 sources) Platelet Aggregation Inhibitor, Nonsteroidal Anti-inflammatory Drug [...] Glucose Monitoring Suppl (D-Care Glucometer) w/Device kit (8 sources) Start: 03-25-2024 End: 03-25-2025 Blood Glucose [...] oral tablet (1 source) alpha-Adrenergic Agonist, Uncompetitive Y-chikxi-B-aspartate Receptor Antagonist, Sigma-1 Agonist Start: 04-27-2023 take 4 tablets by mouth every twenty-four hours as needed Capmist DM 60-15-400 MG as needed Orally every 4-6 hours as needed, max 4 tablets in 24 hours for 5 days Mar, Active [id number] 0.3 ml EPINEPHrine 1 mg/ml auto-injector (2 [...] June 29, 2019 10:18pm hydrOXYzine HCl Active insulin glargine 100 unt/ml injectable solution (2 sources) Insulin Analog Start: 05-13-2024 End: 06-12-2024 inject 10 [IU] by subcutaneous injection in the evening insulin glargine (Lantus) 100 UNIT/ML injection Indications: Hyperglycemia , GESTATIONAL DIABETES Inject 10 Units under the skin in the evening 3 mL 3 05/13/2024 06/12/2024 Active isopropyl alcohol 0.7 ml/ml medicated pad (8 sources) Start: 03-25-2024 Alcohol Swabs (Alcohol Prep [...] 01/08/2025 Active metoclopramide 10 mg oral tablet (15 sources) Dopamine-2 Receptor Antagonist Start: 04-03-2024 End: [...] needed for nausea.. 90 tablet 2 04/03/2024 Active Start: 12-01-2023 End: 01-24-2024 metoclopramide (Reglan) [...] 12:00am ondansetron 4 mg disintegrating oral tablet (20 sources) Serotonin-3 Receptor Antagonist Start: 03-08-2024 End: [...] Active promethazine hydrochloride 12.5 mg oral tablet (16 sources) Phenothiazine Start: 03-25-20 End: 06-23-19 take [...] 18, 2023 12:00am take 1 capsule by [facility] every twenty-four hours in the morning [...] Date Documented Da te Episodic/Chronic Abdominal pain (12 sources) Unspecified abdominal pain; 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: [Flank pain] [...] tolerance complicating ; childbirth; or the puerperium (16 sources) Gestational diabetes mellitus; 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: [Gestational diabetes mellitus in , unspecified control] Onset: 03-21-2024 03-21-2024 Episodic Genitourinary symptoms and ill-defined conditions (1 source) Personal history of urinary (tract) infections; 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: [PERS HX URINARY TRACT INFECTIONS] Onset: 04-29-2022 Episodic Hypertension complicating ; childbirth and the puerperium (4 sources) Elevated blood pressure; 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: [Unspecified maternal hypertension, third trimester] Onset: 05-13-2024 05-13-2024 Chronic Immunizations and screening for infectious disease (4 [...] 03-09-2022 Episodic Other aftercare (1 source) Other alf (current) drug therapy; 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: [OTH LENS CEMENTER CURRENT DRUG THERAPY] Onset: 12-30-2022 Episodic Other complications of (4 sources) Maternal [...] 02-15-2024 Chronic Other and delivery including normal (20 sources) Second trimester ; 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: [Encounter for [...] of ] 03-21-2024 Episodic Residual codes; unclassified (9 sources) Gestation period, 28 weeks; 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: [28 weeks gestation of ] Onset: 04-03-2024 04-03-2024 Episodic Residual codes; unclassified (2 sources) Gestation period, 18 weeks; 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: [18 weeks gestation of ] 01-24-2024 Episodic Residual codes; unclassified (4 sources) Gestation period, 33 weeks; 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: [33 weeks gestation of ] Onset: 05-13-2024 05-13-2024 Episodic Substance-related disorders (1 source) Nicotine dependence, cigarettes, uncomplicated; 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: [NICOTINE DEPEND CIGARETTES UNCOMP] Onset: 04-29-2022 Chronic Unclassified (1 source) PERSONAL HISTORY OF COVID-19; 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: [PERSONAL HISTORY OF COVID-19] Onset: 04-29-2022 Unclassified (1 source) transport Onset: 02-08-2024 Urinary tract infections (13 sources) Acute cystitis; 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: [Acute cystitis with hematuria] Onset: 02-08-2024 03-06-2024 Episodic Past or Other Problems Problem Classification Problem Date Documented Da te Episodic/Chronic Other skin disorders (2 sources) Eruption; 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: [Rash and other nonspecific skin eruption] 01-03-2024 Episodic Unclassified (1 source) Suspected COVID-19 virus infection Z20.822 Results Test Name Value Interpretation Reference Range Facility Urinalysis macro (dipstick) panel (U)on 05-13-2024 Bilirubin, UA Negative Negative - 4(70) +++ mg/dL [facility] Blood, UA Positive Negative - 50 Slick/mcL [facility] Comment on above: trace Clarity, UA Clear [facility] re Color, UA Yellow [facility] Glucose, UA Negative Negative - 1999(110) ++++ mg/dL [facility] Interpretation and review of laboratory results Abnormal [facility] Ketones, UA Negative Negative - 160(16) ++++ mg/dL [facility] Leukocytes, UA Negative Negative - 500+++ Mira/mcL [facility] Nitrite, UA Negative Negative - Positive [facility] pH, UA 6.5 5 - 9 [facility] e Protein, UA Negative Negative - 2000(20) ++++ mg/dL [facility] Spec Grav, UA 1.01 1 - 1.03 [facility] Urobilinogen, UA 0.2 0.2 - 12 mg/dL [facility] US OB FOLLOW UP TRANSABDOMIN AL APPROACHon 05-09-2024 US OB FOLLOW UP TRANSABDOMINAL APPROACH TITLE OF EXAM: OB Ultrasound: REASON FOR EXAM: GDM. COMPARISON: None. TECHNIQUE: Grayscale and M-mode Doppler imaging is performed. FINDINGS: heart rate: 129 bpm ANGEL: 21.3 cm (8.1-24.8) BPD: 8.3 cm HC: 31.3 cm AC: 31.5 cm FL: 6.6 cm GA for sonogram: 34.1 wk (31.6-36.5) [place] LISA: 07/18/2024 Weight Estimate: Weight: 2513 gm / 5 lbs, 8 oz (0611-4350 gm) [place] Normal: 2393 gm (1560-6440 gm) [place] Wt%: 65% for 34.1 wks Limited for: Growth Presentation: Cephalic Lie: Longitudinal Amniotic Fluid: 21.3 cm Largest Fluid Pocket: 6.8 cm Heart Rate: 129 bpm The following structures are visualized in a limited fashion: Fluid-filled stomach, beating heart. Intracranial contents. IMPRESSION: Single live intrauterine gestation in cephalic position with sonographic EGA 34.1 weeks. Dictated and transcribed 05/09/24/lyssa This report has been electronically signed and approved by the interpreting radiologist. Normal Not Available Comment on above: Order Comment: US OB SCAN FOR GROWTH Estimated Date of Delivery: 06/25/24 Gestational Age as of 03/21/2024: 32w3d [facility] UA (CLEAN/CATCH) HAIR SPRING CUTTER/CHUY RO IF IND.on 04-22-2024 BILIRUBIN URINE Negative [facility]GATIVE [facility] BLOOD UR[facility] Negative NEGATIVE [facility] PROTEIN URINE Negative NEG/TRACE mg/dL [facility] SPECIFIC GRAVITY URINE 1.020 1.005 - 1.025 [facility] URINE MICROSCOPIC INDICATED NO [facility] UROBILINOGEN URINE 0.2 EU/dL 0.2 - 1.0 EU/dL [facility] Urine Cultureon 04-22-2024 Bacteria identified Cx Nom (U) No Growth 2 Days PERFORMED BY: [place] [address] PATHOLOGIST [employer] SYD SHEFFIELD M.D. Normal [facility] Comment on above: Performed By: #### C UU #### [address] RECURRENT VAGINITIS (HTRX)on 04-06-2024 ATOPOBIUM VAGINAE 0 [...] detected [facility] BRAD KRUSEI 0 [facility] Healt hcare BRAD KRUSEI Not detected [facility] CHLAMYDIA TRACHOMATIS 0 [facility] CHLAMYDIA TRACHOMATIS Not detected N [facility] Healthcare GARDNERELLA VAGINALIS 0 NOM S [facility] GARDNERELLA VAGINALIS Not detected N [facility] MEGASPHAERA (TYPES 1, 2) 0 [facility] MEGASPHAERA (TYPES 1, 2) Not detected [facility] MYCOPLASMA GENITALIUM 0 NOM S [facility] MYCOPLASMA GENITALIUM Not detected N [facility] NEISSERIA GONORRHOEAE 0 [facility] NEISSERIA GONORRHOEAE Not detected N [facility] TRICHOMONAS VAGINALIS 0 NOM S [facility] TRICHOMONAS VAGINALIS Not detected N [facility] Healthcare [facility] Urinalysis macro (dipstick) panel (U)on 04-03-2024 Bilirubin, UA Negative Negative - 4(70) +++ mg/dL [facility] Blood, UA Negative Negative - 50 Slick/mcL [facility] Clarity, UA Cloudy [facility] re Color, UA Yellow [facility] e Glucose, UA 1+ Negative - 1999(110) ++++ mg/dL [facility] Comment on above: 100mg/dL Interpretation and review of laboratory results Abnormal [facility] Ketones, UA Negative Negative - 160(16) ++++ mg/dL [facility] Leukocytes, UA Trace Negative - 500+++ Mira/mcL [facility] Nitrite, UA Negative Negative - Positive [facility] pH, UA 6 5 - 9 [facility] e Protein, UA Negative Negative - 1999(20) ++++ mg/dL [facility] Spec Grav, UA 1.01 1 - 1.03 [facility] Urobilinogen, UA 0.2 0.2 - 12 mg/dL [facility] ALL CBC WITH AUTO DIFFon BASOPHILS ABSOLUTE AUTO 0 [facility] Basophils/100 WBC (Bld) 0.1 % Low 0.2 - 2.0 % [facility] Eosinophils/100 WBC (Bld) 0.5 % Low 0.9 - 7.0 % [facility] Erythrocyte distribution width (RBC) [Ratio] 13.9 % 11.0 - 15.0 % [facility] Hematocrit (Bld) [Volume fraction] 35.2 % Low 36.0 - 48.0 % [facility] Hemoglobin (Bld) [Mass/Vol] 11.5 g/dL Low 12.0 - 16.0 g/dL [facility] IMMATURE GRANULOCYTES ABS AUTO 0.05 High [facility] Immature granulocytes/100 WBC (Bld) 0.6 % High 0.0 - 0.5 % [facility] Interpretation and review of laboratory results Abnormal [facility] LYMPHOCYTES ABSOLUTE AUTO 1.9 [facility] Lymphocytes/100 WBC (Bld) 22.9 % 20.5 - 60.0 % [facility] MCH (RBC) [Entitic mass] 30.5 pg 26.7 - 34.0 pg [facility] MCHC (RBC) [Mass/Vol] 32.7 g/dL 29.9 - 35.2 g/dL [facility] MCV (RBC) [Entitic vol] 93.4 fL 81.0 - 99.0 fL [facility] MONOCYTES ABSOLUTE AUTO 0.3 [facility] Monocytes/100 WBC (Bld) 3.3 % 1.7 - 12.0 % [facility] NEUTROPHILS ABSOLUTE AUTO 6.1 [facility] Neutrophils/100 WBC (Bld) 72.6 % 43.0 - 75.0 % [facility] Platelet mean volume (Bld) [Entitic vol] 10.5 fL 9.5 - 13.5 fL [facility] EO # 0 [facility] PLT [address] [facility] TB RBC 3.[address] [facility] e TB WBC 8.4 [facility] Healthcar e [facility] Urinalysis macro (dipstick) panel (U)on 03-21-2024 Bilirubin, UA Negative Negative - 4(70) +++ mg/dL [facility] Blood, UA Negative Negative - 50 Slick/mcL [facility] Clarity, UA Cloudy [facility] re Color, UA Yellow [facility] e Glucose, UA Positive Negative - 1999(110) ++++ mg/dL [facility] Comment on above: 500 mg Interpretation and review of laboratory results Abnormal [facility] Ketones, UA Negative Negative - 160(16) ++++ mg/dL [facility] Leukocytes, UA Negative Negative - 500+++ Mira/mcL [facility] Nitrite, UA Negative Negative - Positive [facility] pH, UA 6.5 5 - 9 [facility] e Protein, UA Negative Negative - 1999(20) ++++ mg/dL [facility] Spec Grav, UA 1.025 1 - 1.03 [facility] Urobilinogen, UA 0.2 0.2 - 12 mg/dL [facility] Urinalysis macro (dipstick) panel (U)on 03-11-2024 Bilirubin, UA Negative Negative - 4(70) +++ mg/dL [facility] Blood, UA Positive Negative - 50 Slick/mcL [facility] Comment on above: large Clarity, UA Clear [facility] Healthca re Color, UA Straw [facility] Healthcar e Glucose, UA Negative Negative - 1999(110) ++++ mg/dL [facility] Interpretation and review of laboratory results Abnormal [facility] Ketones, UA Negative Negative - 160(16) ++++ mg/dL [facility] Leukocytes, UA Negative Negative - 500+++ Mira/mcL [facility] Nitrite, UA Negative Negative - Positive [facility] pH, UA 6 5 - 9 [facility] Healthcar e Protein, UA Negative Negative - 1999(20) ++++ mg/dL [facility] Spec Grav, UA 1.02 1 - 1.03 [facility] Urobilinogen, UA 0.2 0.2 - 12 mg/dL [facility] TBH UA (CLEAN/CATCH) HAIR SPRING CUTTER/CHUY RO IF IND.on 03-06-2024 BILIRUBIN URINE COLOR INTERFERENCE Abnormal NEGATIVE N [facility] BLOOD URINE COLOR INTERFERENCE Abnormal NEGATIVE [facility] Clarity (U) CLEAR CLEAR [facility] Health[facility] re Color (U) DK. RED YELLOW [facility] Healthcar e GLUCOSE URINE UA COLOR INTERFERENCE Abnormal NEGAT CARMELITA mg/dL [facility] Interpretation and review of laboratory results Abnormal [facility] Ketones Ql (U) COLOR INTERFERENCE Abnormal NEGATIV E mg/dL [facility] Leukocyte esterase Test strip Ql (U) COLOR INTERFERENCE Abnormal NEGATIVE [facility] care NITRITE URINE COLOR INTERFERENCE Abnormal NEGATIVE [facility] PH URINE COLOR INTERFERENCE Abnormal 5.0 - 9.0 [facility] PROTEIN URINE COLOR INTERFERENCE Abnormal NEG/TRAC E mg/dL [facility] SPECIFIC GRAVITY URINE 1.020 1.005 - 1.025 [facility] URINE MICROSCOPIC INDICATED YES [facility] UROBILINOGEN URINE COLOR INTERFERENCE Abnormal 0.2 - 1.0 EU/dL [facility] e Urinalysis macro (dipstick) panel (U)on 03-06-2024 Bilirubin, UA Positive Negative - 4(70) +++ mg/dL [facility] Blood, UA Positive Negative - 50 Slick/mcL [facility] Comment on above: large Clarity, UA Clear [facility] Color, UA Dark [place] [facility] Glucose, UA Negative Negative - 1999(110) ++++ mg/dL [facility] Interpretation and review of laboratory results Abnormal [facility] Ketones, UA Negative Negative - 160(16) ++++ mg/dL [facility] Leukocytes, UA Trace Negative - 500+++ Mira/mcL [facility] Nitrite, UA Positive Negative - Positive [facility] pH, UA 6 5 - 9 [facility] Protein, UA Positive Negative - 1999(20) ++++ mg/dL [facility] Healthcare Comment on above: 100 Spec Grav, UA 1.02 1 - 1.03 [facility] Urobilinogen, UA 1.0 0.2 - 12 mg/dL [facility] Urinalysis macro (dipstick) panel (U)on 02-21-2024 Bilirubin, UA Negative Negative - 4(70) +++ mg/dL [facility] Healthcare Blood, UA Negative Negative - 50 Slick/mcL [facility] Clarity, UA Clear [facility] Color, UA Yellow [facility] Glucose, UA Negative Negative - 1999(110) ++++ mg/dL [facility] Healthcare Interpretation and review of laboratory results Abnormal [facility] Healthcare Ketones, UA Negative Negative - 160(16) ++++ mg/dL [facility] Leukocytes, UA Trace Negative - 500+++ Mira/mcL [facility] Nitrite, UA Negative Negative - Positive [facility] Healthcare pH, UA 5.5 5 - 9 [facility] Protein, UA Negative Negative - 1999(20) ++++ mg/dL [facility] Spec Grav, UA 1.01 1 - 1.03 [facility] Urobilinogen, UA 0.2 0.2 - 12 mg/dL [facility] CBC AND AUTO DIFFon 02-09-20 ABSOLUTE BASOPHIL 0.0 X10E9/L Normal 0.0-0.2 [facility] Comment on above: Performed By: #### 3 0741-1, CMP, CBCA #### [facility] ([id number]) [address], [address] [place] [address] ABSOLUTE NEUTROPHIL 5.4 X10E9/L Normal 1.5-6.6 [facility] Comment on above: Performed By: #### 3 2132-1, CMP, CBCA #### [facility] ([id number]) [address], [address] [place] [address] Basophils/100 WBC (Bld) 0.2 % Normal [facility] Comment on above: Performed By: #### 3 2132-1, CMP, CBCA #### [facility] ([id number]) [address], [address] [place] [address] Eosinophils (Bld) [#/Vol] 0.1 10*3/uL Normal 0.0-0.4 [facility] Comment on above: Performed By: #### 3 2132-1, CMP, CBCA #### [facility] ([id number]) [address], [address] [place] [address] Eosinophils/100 WBC (Bld) 0.9 % Normal [facility] Comment on above: Performed By: #### 3 2132-1, CMP, CBCA #### [facility] ([id number]) [address], [address] [place] [address] Erythrocyte distribution width (RBC) [Ratio] 14.3 % Normal 11.5-15.0 [facility] Comment on above: Performed By: #### 3 2132-1, CMP, CBCA #### [facility] ([id number]) [address], [address] [place] [address] Hematocrit (Bld) [Volume fraction] 30.3 % Low 35-47 [facility] Comment on above: Performed By: #### 3 2132-1, CMP, CBCA #### [facility] ([id number]) [address], [address] [place] [address] Hemoglobin (Bld) [Mass/Vol] 10.3 g/dL Low 11.7-15.5 [facility] Comment on above: Performed By: #### 3 2132-1, CMP, CBCA #### [facility] ([id number]) [address], [address] [place] [address] Lymphocytes (Bld) [#/Vol] 1.7 10*3/uL Normal 1.0-3.5 [facility] Comment on above: Performed By: #### 3 2132-1, CMP, CBCA #### [facility] ([id number]) [address], [facility] [address] [place] [address] Lymphocytes/100 WBC (Bld) 22.0 % Normal [facility] Comment on above: Performed By: #### 3 2132-1, CMP, CBCA #### [facility] ([id number]) [address], [address] [place] [address] MCH (RBC) [Entitic mass] 31.3 pg Normal 27-34 [facility] Comment on above: Performed By: #### 3 2132-1, CMP, CBCA #### [facility] ([id number]) [address], [address] [place] [address] MCHC (RBC) [Mass/Vol] 34.0 g/dL Normal 32-36 [facility] Comment on above: Performed By: #### 3 2132-1, CMP, CBCA #### [facility] ([id number]) [address], [facility] [address] [place] [address] MCV (RBC) [Entitic vol] 92 fL Normal 80-100 [facility] Comment on above: Performed By: #### 3 2132-1, CMP, CBCA #### [facility] ([id number]) [address], [address] [place] [address] Monocytes (Bld) [#/Vol] 0.5 10*3/uL Normal 0-0.9 [facility] Comment on above: Performed By: #### 3 2132-1, CMP, CBCA #### [facility] ([id number]) [address], [address] [place], [place] [address] Monocytes/100 WBC (Bld) 7.0 % Normal [facility] Comment on above: Performed By: #### 3 2132-1, CMP, CBCA #### [facility] ([id number]) [address], [address] [place], [place] [address] Neutrophils/100 WBC (Bld) 69.9 % Normal [facility] Comment on above: Performed By: #### 3 2132-1, CMP, CBCA #### [facility] ([id number]) [address], [address] [place] [address] Platelet mean volume (Bld) [Entitic vol] 8.8 fL Normal 7-12 [facility] Comment on above: Performed By: #### 3 2132-1, CMP, CBCA #### [facility] ([id number]) [address], [address] [place] [address] Platelets (Bld) [#/Vol] 259 10*3/uL Normal 150-450 [facility] Comment on above: Performed By: #### 3 2132-1, CMP, CBCA #### [facility] ([id number]) [address], [address] [place], [place] [address] RBC COUNT 3.29 X10E12/L Low 3.80-5.20 [facility] Comment on above: Performed By: #### 3 2132-, CMP, CBCA #### [facility] ([id number]) [address], [address] [place] [address] WBC (Bld) [#/Vol] 7.7 10*3/uL Normal 4.0-11.0 [facility] Comment on above: Performed By: #### 3 2132-1, CMP, CBCA #### [facility] ([id number]) [address], [address] [place] [address] COMPREHENSIVE METABOLIC PANE Paco 02-09-2024 Albumin [Mass/Vol] 2.9 g/dL Low 3.2-5.3 [facility] Comment on above: Performed By: #### 3 2132-1, CMP, CBCA #### [facility] ([id number]) [address], [address] [place] [address] ALP [Catalytic activity/Vol] 118 U/L Normal 39-130 [facility] Comment on above: Performed By: #### 3 2132-1, CMP, CBCA #### [facility] ([id number]) [address], [address] [place] [address] ALT [Catalytic activity/Vol] 6 U/L Normal 0-31 [facility] Comment on above: Performed By: #### 3 2132-1, CMP, CBCA #### [facility] ([id number]) [address], [address] [place] [address] Anion gap [Moles/Vol] 10 mmol/L Normal 5-15 [facility] Comment on above: Performed By: #### 3 2132-1, CMP, CBCA #### [facility] ([id number]) [address], [address] [place] [address] AST [Catalytic activity/Vol] 9 U/L Normal 0-41 [facility] Comment on above: Performed By: #### 3 2132-1, CMP, CBCA #### [facility] ([id number]) [address], [address] [place] [address] Bilirubin [Mass/Vol] 0.4 mg/dL Normal 0.3-1.2 [facility] Comment on above: Performed By: #### 3 2132-1, CMP, CBCA #### [facility] ([id number]) [address], [address] [place] [address] Calcium [Mass/Vol] 8.5 mg/dL Normal 8.5-10.5 [facility] Comment on above: Performed By: #### 3 2132-1, CMP, CBCA #### [facility] ([id number]) [address], [address] [place] [address] Chloride [Moles/Vol] 105 mmol/L Normal 98-109 [facility] Comment on above: Performed By: #### 3 2132-1, CMP, CBCA #### [facility] ([id number]) [address], [address] [place] [address] CO2 [Moles/Vol] 22 mmol/L Normal 22-32 [facility] Comment on above: Performed By: #### 3 2132-1, CMP, CBCA #### [facility] ([id number]) [address], [address] [place] [address] Creatinine [Mass/Vol] 0.45 mg/dL Normal 0.40-1.00 [facility] Comment on above: Result Comment: METH OD TRACEABLE TO IDMS STANDARD Performed By: #### 3 2132-1, CMP, CBCA #### [facility] ([id number]) [address], [address] [place], [place] [address] eGFR (CKD-EPI) NON-RACE DEPENDENT >90 Normal >59 [facility] Comment on above: Result Comment: Reported eGFR is based on the CKD-EPI 2020 equation that does not use a race coefficient. Performed By: #### 3 2132-1, CMP, CBCA #### [facility] ([id number]) [address], [address] [place], [place] [address] Glucose [Mass/Vol] 84 mg/dL Normal 65-99 [facility] Comment on above: Performed By: #### 3 2132-1, CMP, CBCA #### [facility] ([id number]) [address], [address] [place], [place] [address] Potassium [Moles/Vol] 3.7 mmol/L Normal 3.5-5.0 [facility] Comment on above: Performed By: #### 3 2132-1, CMP, CBCA #### [facility] ([id number]) [address], [address] [place] [address] Protein [Mass/Vol] 6.0 g/dL Normal 6.0-8.0 [facility] Comment on above: Performed By: #### 3 2132-1, CMP, CBCA #### [facility] ([id number]) [address], [address] [place] [address] Sodium [Moles/Vol] 137 mmol/L Normal 134-146 [facility] Comment on above: Performed By: #### 3 2132-1, CMP, CBCA #### [facility] ([id number]) [address], [address] [place] [address] Urea nitrogen [Mass/Vol] 5 mg/dL Normal 5-23 [facility] Comment on above: Performed By: #### 3 2132-1, CMP, CBCA #### [facility] ([id number]) [address], [address] [place], [place] [address] MAGNESIUMon 02-09-2024 Magnesium [Mass/Vol] 1.6 mg/dL Low 1.8-2.6 [facility] Comment on above: Performed By: #### 3 2132-1, CMP, CBCA #### [facility] ([id number]) [address], [address] [place], [place] [address] PHOSPHORUSon 02-09-2024 Phosphate [Mass/Vol] 4.5 mg/dL Normal 2.4-4.9 [facility] Comment on above: Performed By: #### 3 2132-1, CMP, CBCA #### [facility] ([id number]) [address], [address] [place] [address] US RETROPERITONEAL LIMITEDon 02-09-2024 US RETROPERITONEAL LIMITED [...] Andrade MD on 02/09/2024 10:14 AM Normal [facility] BLOOD CULTUREon 02-08-2024 Bacteria identified Aer cx Nom (Bld) SPECIMEN NOTES SUBOPTIMAL VOLUME OF BLOOD COLLECTED, RESULTS MAY BE AFFECTED. CULTURE RESULTS NO GROWTH 5 DAYS Normal [facility] Comment on above: Performed By: #### 3 2132-1, CMP, CBCA #### [facility] ([id number]) [address], [address] [place] [address] Bacteria identified Aer cx Nom (Bld) SPECIMEN NOTES SUBOPTIMAL VOLUME OF BLOOD COLLECTED, RESULTS MAY BE AFFECTED. CULTURE RESULTS NO GROWTH 5 DAYS Normal [facility] Comment on above: Performed By: #### 1 7928-3 #### [facility] ([id number]) [address], [address] [place] [address] CBC AND AUTO DIFFon 10-10-20 24 ABSOLUTE BASOPHIL 0.0 X10E9/L Normal 0.0-0.2 [facility] Comment on above: Performed By: #### 3 2132-1, CMP, CBCA #### [facility] ([id number]) [address], [address] [place] [address] ABSOLUTE NEUTROPHIL 9.5 X10E9/L High 1.5-6.6 [facility] Comment on above: Performed By: #### 3 2132-1, CMP, CBCA #### [facility] ([id number]) [address], [address] [place] [address] Basophils/100 WBC (Bld) 0.0 % Normal [facility] Comment on above: Performed By: #### 3 2132-1, CMP, CBCA #### [facility] ([id number]) [address], [address] [place] [address] Eosinophils (Bld) [#/Vol] 0.0 10*3/uL Normal 0.0-0.4 [facility] Comment on above: Performed By: #### 3 2132-1, CMP, CBCA #### [facility] ([id number]) [address], [address] [place] [address] Eosinophils/100 WBC (Bld) 0.0 % Normal [facility] Comment on above: Performed By: #### 3 2132-1, CMP, CBCA #### [facility] ([id number]) [address], [address] [place] [address] Erythrocyte distribution width (RBC) [Ratio] 14.5 % Normal 11.5-15.0 [facility] Comment on above: Performed By: #### 3 2132-1, CMP, CBCA #### [facility] ([id number]) [address], [address] [place] [address] Hematocrit (Bld) [Volume fraction] 31.3 % Low 35-47 [facility] Comment on above: Performed By: #### 3 2132-1, CMP, CBCA #### [facility] ([id number]) [address], [address] [place] [address] Hemoglobin (Bld) [Mass/Vol] 10.6 g/dL Low 11.7-15.5 [facility] Comment on above: Performed By: #### 3 2132-1, CMP, CBCA #### [facility] ([id number]) [address], [facility] [address] [place] [address] Lymphocytes (Bld) [#/Vol] 1.1 10*3/uL Normal 1.0-3.5 [facility] Comment on above: Performed By: #### 3 2132-1, CMP, CBCA #### [facility] ([id number]) [address], [facility] [address] [place] [address] Lymphocytes/100 WBC (Bld) 9.4 % Normal [facility] Comment on above: Performed By: #### 3 2132-1, CMP, CBCA #### [facility] ([id number]) [address], [address] [place] [address] MCH (RBC) [Entitic mass] 30.8 pg Normal 27-34 [facility] Comment on above: Performed By: #### 3 2132-1, CMP, CBCA #### [facility] ([id number]) [address], [address] [place] [address] MCHC (RBC) [Mass/Vol] 33.9 g/dL Normal 32-36 [facility] Comment on above: Performed By: #### 3 2132-1, CMP, CBCA #### [facility] ([id number]) [address], [address] [place] [address] MCV (RBC) [Entitic vol] 91 fL Normal 80-100 [facility] Comment on above: Performed By: #### 3 2132-1, CMP, CBCA #### [facility] ([id number]) [address], [address] [place] [address] Monocytes (Bld) [#/Vol] 0.9 10*3/uL Normal 0-0.9 [facility] Comment on above: Performed By: #### 3 2132-1, CMP, CBCA #### [facility] ([id number]) [address], [address] [place] [address] Monocytes/100 WBC (Bld) 8.2 % Normal [facility] Comment on above: Performed By: #### 3 2132-1, CMP, CBCA #### [facility] ([id number]) [address], [address] [place] [address] Neutrophils/100 WBC (Bld) 82.4 % Normal [facility] Comment on above: Performed By: #### 3 2132-1, CMP, CBCA #### [facility] ([id number]) [address], [address] [place] [address] Platelet mean volume (Bld) [Entitic vol] 8.5 fL Normal 7-12 [facility] Comment on above: Performed By: #### 3 2132-1, CMP, CBCA #### [facility] ([id number]) [address], [address] [place] [address] Platelets (Bld) [#/Vol] 246 10*3/uL Normal 150-450 [facility] Comment on above: Performed By: #### 3 2132-1, CMP, CBCA #### [facility] ([id number]) [address], [address] [place] [address] RBC COUNT 3.44 X10E12/L Low 3.80-5.20 [facility] Comment on above: Performed By: #### 3 2132-1, CMP, CBCA #### [facility] ([id number]) [address], [address] [place] [address] WBC (Bld) [#/Vol] 11.5 10*3/uL High 4.0-11.0 [facility] Comment on above: Performed By: #### 3 2132-1, CMP, CBCA #### [facility] ([id number]) [address], [address] [place] [address] COMPREHENSIVE METABOLIC PANE Paco 02-08-2024 Albumin [Mass/Vol] 3.1 g/dL Low 3.2-5.3 [facility] Comment on above: Performed By: #### 3 2132-1, CMP, CBCA #### [facility] ([id number]) [address], [address] [place] [address] ALP [Catalytic activity/Vol] 100 U/L Normal 39-130 [facility] Comment on above: Performed By: #### 3 2132-1, CMP, CBCA #### [facility] ([id number]) [address], [address] [place] [address] ALT [Catalytic activity/Vol] 7 U/L Normal 0-31 [facility] Comment on above: Performed By: #### 3 2132-1, CMP, CBCA #### [facility] ([id number]) [address], [address] [place] [address] Anion gap [Moles/Vol] 12 mmol/L Normal 5-15 [facility] Comment on above: Performed By: #### 3 2132-1, CMP, CBCA #### [facility] ([id number]) [address], [address] [place] [address] AST [Catalytic activity/Vol] 8 U/L Normal 0-41 [facility] Comment on above: Performed By: #### 3 2132-1, CMP, CBCA #### [facility] ([id number]) [address], [address] [place] [address] Bilirubin [Mass/Vol] 0.5 mg/dL Normal 0.3-1.2 [facility] Comment on above: Performed By: #### 3 2132-1, CMP, CBCA #### [facility] ([id number]) [address], [address] [place] [address] Calcium [Mass/Vol] 8.3 mg/dL Low 8.5-10.5 [facility] Comment on above: Performed By: #### 3 2132-1, CMP, CBCA #### [facility] ([id number]) [address], [address] [place] [address] Chloride [Moles/Vol] 104 mmol/L Normal 98-109 [facility] Comment on above: Performed By: #### 3 2132-1, CMP, CBCA #### [facility] ([id number]) [address], [address] [place] [address] CO2 [Moles/Vol] 20 mmol/L Low 22-32 [facility] Comment on above: Performed By: #### 3 2132-1, CMP, CBCA #### [facility] ([id number]) [address], [address] [place] [address] Creatinine [Mass/Vol] 0.53 mg/dL Normal 0.40-1.00 [facility] Comment on above: Result Comment: METH OD TRACEABLE TO IDMS STANDARD Performed By: #### 3 2132-1, CMP, CBCA #### [facility] ([id number]) [address], [address] [place] [address] eGFR (CKD-EPI) NON-RACE DEPENDENT >90 Normal >59 [facility] Comment on above: Result Comment: Reported eGFR is based on the CKD-EPI 2020 equation that does not use a race coefficient. Performed By: #### 3 2133-1, CMP, CBCA #### [facility] ([id number]) [address], [address] [place] [address] Glucose [Mass/Vol] 115 mg/dL High 65-99 [facility] Comment on above: Performed By: #### 3 2132-1, CMP, CBCA #### [facility] ([id number]) [address], [address] [place] [address] Potassium [Moles/Vol] 3.6 mmol/L Normal 3.5-5.0 [facility] Comment on above: Performed By: #### 3 2132-1, CMP, CBCA #### [facility] ([id number]) [address], [address] [place] [address] Protein [Mass/Vol] 6.1 g/dL Normal 6.0-8.0 [facility] Comment on above: Performed By: #### 3 2132-1, CMP, CBCA #### [facility] ([id number]) [address], [address] [place] [address] Sodium [Moles/Vol] 136 mmol/L Normal 134-146 [facility] Comment on above: Performed By: #### 3 2132-1, CMP, CBCA #### [facility] ([id number]) [address], [address] [place] [address] Urea nitrogen [Mass/Vol] 3 mg/dL Low 5-23 [facility] Comment on above: Performed By: #### 3 2132-1, CMP, CBCA #### [facility] ([id number]) [address], [address] [place] [address] DRUG SCREEN, URINEon 02-07-2 024 AMPHETAMINE/METHAMP Negative Normal NEG [facility] Comment on above: Result Comment: AMPH /METH screening cut off = 1000 ng/mL Performed By: #### D GUILLEN #### [facility] ([id number]) [address], [address] [place] [address] BARBITURATES Negative Normal NEG [facility] Comment on above: Result Comment: Megan iturates screening cut off value = 200 ng/mL Performed By: #### D GUILLEN #### [facility] ([id number]) [address] [place] [address] BENZODIAZEPINES Negative Normal NEG [facility] Comment on above: Result Comment: Giorgio odiazepines screening cut off value = 200 ng/mL Performed By: #### D GUILLEN #### [facility] ([id number]) [address], [address] [place] [address] CANNABINOIDS Negative Normal NEG [facility] Comment on above: Result Comment: Elsie abinoids/THC screening cut off value = 50 ng/mL Performed By: #### D GUILLEN #### [facility] ([id number]) [address], [address] [place] [address] COCAINE METABOLITE Negative Normal NEG [facility] Comment on above: Result Comment: Coca ine screening cut off value = 300 ng/mL Performed By: #### D GUILLEN #### [facility] ([id number]) [address], [address] [place] [address] ECSTASY Negative Normal NEG [facility] Comment on above: Result Comment: Ecst asy screening cut off value = 500 ng/mL This report is intended for use in clinical monitoring or management of patients. Performed By: #### D GUILLEN #### [facility] ([id number]) [address] [place] [address] METHADONE Negative Normal NEG [facility] Comment on above: Result Comment: Meth adone screening cut off value = 300 ng/mL. Performed By: #### D GUILLEN #### [facility] ([id number]) [address], [address] [place] [address] OPIATES Negative Normal NEG [facility] Comment on above: Result Comment: Opia joey screening cut off value = 300 ng/mL NOTE: This test is used for the detection of codeine, hydrocodone (>1000 ng/mL), morphine and hydromorphone (>900 ng/mL) in urine. Performed By: #### D GUILLEN #### [facility] ([id number]) [address], [address] [place] [address] OXYCODONE Negative Normal NEG [facility] Comment on above: Result Comment: Oxyc odone screening cut off value = 300 ng/mL NOTE: This test is used for the detection of oxycodone and oxymorphone in urine. Performed By: #### D GUILLEN #### [facility] ([id number]) [address], [address] [place] [address] PHENCYCLIDINE Negative Normal NEG [facility] Comment on above: Result Comment: Phen cyclidine screening cut off value = 25 ng/mL Performed By: #### D GUILLEN #### [facility] ([id number]) [address], [address] [place] [address] Glucose Glucometer (BldC) [M ass/Vol]on 02-08-2024 Glucose [Mass/Vol] 107 mg/dL High 65-99 [facility] Lactate (P melvin) [Moles/Vol]o n 02-08-2024 LACTATE W/REFLEX 1.0 mmol/L Normal 0.4-2.0 [facility] Comment on above: Result Comment: Result did not trigger repeat Lactate, re-order if needed. Performed By: #### 7 5241-0, 23943-1 #### [facility] ([id number]) [address], [address] [place] [address] LACTATE W/REFLEX 0.8 mmol/L Normal 0.4-2.0 [facility] Comment on above: Result Comment: Result did not trigger repeat Lactate, re-order if needed. Performed By: #### 3 2133-1, CMP, CBCA #### [facility] ([id number]) [address], [address] [place] [address] Procalcitonin IA [Mass/Vol]o n 02-08-2024 PROCALCITONIN 0.74 ng/mL High <0.05 [facility] Comment on above: Result Comment: NOTE <0.50 ng/mL - Low risk of severe sepsis and/or septic shock. <2.00 ng/mL - Recommend retesting within 6-24 hours. >2.00 ng/mL - High risk of sepsis and/or septic shock. Performed By: #### 7 5241-0, 51111-8 #### [facility] ([id number]) [address], [address] [place] [address] URINALYSISon 02-08-2024 Bilirubin Ql (U) Negative Normal NEG [facility] Comment on above: Performed By: #### U A #### [facility] ([id number]) [address], [address] [place] [address] BLOOD/HGB Small Abnormal NEG [facility] Comment on above: Performed By: #### U A #### [facility] ([id number]) [address] [address] [place] [address] Color (U) YELLOW Normal YELLOW [facility] Comment on above: Performed By: #### U A #### [facility] ([id number]) [address] [place] [address] Glucose Ql (U) Negative Normal NEG [facility] Comment on above: Performed By: #### U A #### [facility] ([id number]) [address] [address] [place] [address] Ketones Ql (U) 20 mg/dL Abnormal NEG [facility] Comment on above: Performed By: #### U A #### [facility] ([id number]) [address], [address] [place] [address] Leukocyte esterase Test strip Ql (U) Negative Normal NEG [facility] Comment on above: Performed By: #### U A #### [facility] ([id number]) [address] [facility], [address] [place] [address] MUCOUS PRESENT Abnormal NONE [facility] Comment on above: Performed By: #### U A #### [facility] ([id number]) [address] [place] [address], [address] [place] [address] Nitrite Ql (U) Negative Normal NEG [facility] Comment on above: Performed By: #### U A #### [facility] ([id number]) [address] [place] [address], [address] [place] [address] pH (U) 8.0 [pH] Normal 5.0-8.5 [facility] Comment on above: Performed By: #### U A #### [facility] ([id number]) [address] [place] [address], [address] [place] [address] Protein Ql (U) Trace Abnormal NEG [facility] Comment on above: Performed By: #### U A #### [facility] ([id number]) [address] [place] [address], [address] [place] [address] R.B.CELLS 16 /hpf High 0-5 [facility] Comment on above: Performed By: #### U A #### [facility] ([id number]) [address] [place] [address], [address] [place] [address] Specific gravity (U) [Rel density] 1.012 Normal 1.003-1.035 [facility] Comment on above: Performed By: #### U A #### [facility] ([id number]) [facility] [address] [place] [address] SQUAMOUS EPITHELIUM 1 /hpf Normal 0-5 [facility] Comment on above: Performed By: #### U A #### [facility] ([id number]) [address] [place] [address] TRANSITIONAL EPITH <1 High 0 [facility] Comment on above: Performed By: #### U A #### [facility] ([id number]) [address], [address] [place] [address] TURBIDITY CLEAR Normal CLEAR [facility] Comment on above: Performed By: #### U A #### [facility] ([id number]) [address] [place] [address] Urobilinogen Qn (U) 2 {Blanca'U}/dL High <1.1 [facility] Comment on above: Performed By: #### U A #### [facility] ([id number]) [address], [address] [place] [address] W.B.CELLS 2 /hpf Normal 0-5 [facility] Comment on above: Performed By: #### U A #### [facility] ([id number]) [address] [place] [address] URINE CULTUREon 02-08-2024 Bacteria identified Cx Nom (U) CULTURE RESULTS NO GROWTH AT <1000 CFU/mL Normal [facility] Comment on above: Performed By: #### 3 3-1, CMP, CBCA #### [facility] ([id number]) [address], [address] [place] [address] XR CHEST 1 VWon 02-08-2024 XR CHEST [...] Rubi MD on 02/08/2024 9:35 AM Normal [facility] URETHRITIS/DISCHARGE PLUS VA GINITIS (HTRX)on 01-27-2024 ATOPOBIUM VAGINAE 0.000 [facility] ATOPOBIUM VAGINAE Not detected [facility] BVAB 2,3 (BACTERIAL VAGINOSIS ASSOCIATED BACTERIA 2, 3); MOBILUNCUS SPP 0.000 [facility] BVAB 2,3 (BACTERIAL VAGINOSIS ASSOCIATED [...] detected [facility] AFP, SERUM, OPEN SPINA BIFID Aon 01-26-2024 AFP MOM 1.08 . [facility] AFP VALUE 35.9 ng/mL . [facility] COMMENT: Comment . [facility] Comment on above: Nette Holley , Ph.D., [facility] Director References: Available Upon Request. Multiples Of Median Cutoffs For AFP Elevations Rao 2.5 Black 2.8 IDD 2.0 Twins 4.5 Abbreviation Definitions IDD - Insulin Dep Diabetes OSBR - Open Spina Bifida Risk For further inquiries contact [employer] [facility] at [phone]. This test was developed and its performance characteristics determined by [employer]. It has not been cleared or approved by the Food and Drug Administration. Performed at: - [facility] [address] [place], [place] [id number] [employer]house [employer] And [employer] Clerk: Ashley Duggan [facility], Phone: [phone] GEST. AGE ON COLLECTION DATE 17.9 . weeks [facility] GESTAT. AGE BASED ON As provided . [facility] Comment on above: Recalculations are n ot recommended when gestational dating by LMP and ultrasound are within 10 days. INSULIN DEP DIABETES No . [facility] Healthcare INTERPRETATION Comment . [facility] Comment on above: Interpretation: Scre en [...] Customer Services to discuss available options. The [employer] recommends amniocentesis be offered to women age 35 and older. [age] [facility] MULTIPLE GESTATION No . [facility] ealthcare OSBR RISK 1 [place] 9540 . [facility] RACE Other . [facility] Healthcar e RESULTS Report . [facility] TEST RESULTS: Negative . [facility] WEIGHT 225 . lbs [facility] Healthcar e PREGNANY N N ULTRASOUND [id number] 17 N 1 Y 225 N N N N N White/ [facility] Healthcar e Urinalysis macro (dipstick) panel (U)on 01-24-2024 Bilirubin, UA Negative Negative - 4(70) +++ mg/dL [facility] Blood, UA Negative Negative - 50 Slick/mcL [facility] Clarity, UA Clear [facility] Healthma re Color, UA Yellow [facility] Glucose, UA Negative Negative - 1999(110) ++++ mg/dL [facility] Interpretation and review of laboratory results Abnormal [facility] Ketones, UA Negative Negative - 160(16) ++++ mg/dL [facility] Leukocytes, UA Trace Negative - 500+++ Mira/mcL [facility] Nitrite, UA Negative Negative - Positive [facility] pH, UA 6.5 5 - 9 [facility] Protein, UA Negative Negative - 1999(20) ++++ mg/dL [facility] Spec Grav, UA 1.020 1 - 1.03 [facility] Urobilinogen, UA 1.0 0.2 - 12 mg/dL [facility] macro (dipstick) panel (U)on 01-03-2024 Bilirubin, UA Negative Negative - 4(70) +++ mg/dL [facility] Blood, UA Positive Negative - 50 Slick/mcL [facility] Comment on above: trace Clarity, UA Clear [facility] Collaborative re Color, [facility] Gl[facility], [facility] Negative Negative - 1999(110) ++++ mg/dL [facility] Interpretation and review of laboratory results Abnormal [facility] Ketones, UA Negative Negative - 160(16) ++++ mg/dL [facility] Leukocytes, UA Positive Negative - 500+++ Mira/mcL [facility] Comment on above: small Nitrite, UA Negative Negative - Positive [facility] pH, UA 6.0 5 - 9 [facility] e Protein, UA Negative Negative - 1999(20) ++++ mg/dL [facility] Spec Grav, UA 1.020 1 - 1.03 [facility] Urobilinogen, UA 0.2 0.2 - 12 mg/dL [facility] No Panel InformationOrdered By: Sanaz Lockwood on 08-18-2023 Quick Strep (POC) [facility] COVID + FLU Quick Testingon 04-27-2023 SARS-CoV-2 (COVID-19) RNA J LUIS+probe Ql (Unsp spec) Negative [facility] [employer] Other COVID + FLU Quick Testing Negative [facility] [employer] Other Quick Strepon 04-27-2023 S. pyogenes Org specific cx Ql (Throat) Negative [facility] [employer] Other Quick Strep [facility] [employer] Other COVID/FLU/RSV RT-PCRon 05-10 SARS-CoV-2 (COVID-19) RNA J LUIS+probe Ql (Unsp spec) Negative [facility] [employer] Other COVID/FLU/RSV RT-PCR Positive [facility] [employer] Other COVID/FLU/RSV RT-PCR Negative [facility] [employer] Other CBC AUTO DIFFon 04-27-2022 BASO # 0.0 103/ul Normal 0.0-0.1 [facility] Comment on above: Performed By: #### C BC #### [facility] [address] [address] [address] Dee Humphrey Basophils/100 WBC (Bld) 0.2 % Normal 0.2-2.0 [facility] Comment on above: Performed By: #### C BC #### [facility] [address] [address] [address] Dee Humphrey EO # 0.1 103/ul Normal 0.0-0.7 [facility] Comment on above: Performed By: #### C BC #### [facility] [address] [place] [address] Dr. Dee Humphrey Eosinophils/100 WBC (Bld) 0.6 % Critically low 0.9-7.0 [facility] Comment on above: Performed By: #### C BC #### [facility] [address] [address] [address] Dee Humphrey Erythrocyte distribution width (RBC) [Ratio] 14.1 % Normal 11.0-15.0 [facility] Comment on above: Performed By: #### C BC #### [facility] [address] [place] [address] Dr. Dee Humphrey Hematocrit (Bld) [Volume fraction] 37.1 % Normal 36.0-48.0 [facility] Comment on above: Performed By: #### C BC #### [facility] [address] [address] [address] Dee Humphrey Hemoglobin (Bld) [Mass/Vol] 12.4 g/dL Normal 12.0-16.0 [facility] Comment on above: Performed By: #### C BC #### [facility] [address] [address] [address] Dee Humphrey IG # 0.06 10e3/ul Critically high 0.00-0.03 [facility] Comment on above: Performed By: #### C BC #### [facility] [address] [place] [address] Dr. Dee Humphrey IG % 0.5 % Normal 0.0-0.5 [facility] Comment on above: Performed By: #### C BC #### [facility] [address] [place] [address] Dr. Dee Humphrey LYMPH # 3.7 103/ul Normal 1.2-3.8 [facility] Comment on above: Performed By: #### C BC #### [facility] [address] [place] [address] Dr. Dee Humphrey Lymphocytes/100 WBC (Bld) 28.7 % Normal 20.5-60.0 [facility] Comment on above: Performed By: #### C BC #### [facility] [address] [place] [address] Dr. Dee Humphrey MANUAL DIFF REQ NO Normal [facility] Comment on above: Performed By: #### C BC #### [facility] [address] [place] [address] Dr. Dee Humphrey MCH (RBC) [Entitic mass] 30.2 pg Normal 26.7-34.0 [facility] Comment on above: Performed By: #### C BC #### [facility] [address] [place] [address] Dr. Dee Humphrey MCHC (RBC) [Mass/Vol] 33.4 g/dL Normal 29.9-35.2 [facility] Comment on above: Performed By: #### C BC #### [facility] [address] [place] [address] Dr. Dee Humphrey MCV (RBC) [Entitic vol] 90.5 fL Normal 81.0-99.0 [facility] Comment on above: Performed By: #### C BC #### [facility] [address] [place] [address] Dr. Dee Humphrey MONO # 0.7 103/ul Normal 0.3-0.8 [facility] Comment on above: Performed By: #### C BC #### [facility] [address] [address] [address] Dee Humphrey Monocytes/100 WBC (Bld) 5.0 % Normal 1.7-12.0 [facility] Comment on above: Performed By: #### C BC #### [facility] [address] [address] [address] Dee Humphrey NEUT # 8.5 103/ul Critically high 1.4-6.5 [facility] Comment on above: Performed By: #### C BC #### [facility] [address] [address] [address] Dee Humphrey Neutrophils/100 WBC (Bld) 65.0 % Normal 43.0-75.0 [facility] Comment on above: Performed By: #### C BC #### [facility] [address] [place] [address] Dr. Dee Humphrey Platelet mean volume (Bld) [Entitic vol] 9.6 fL Normal 9.5-13.5 [facility] Comment on above: Performed By: #### C BC #### [facility] [address] [place] [address] Dr. Dee Humphrey PLT 317 103/ul Normal 150-450 [facility] Comment on above: Performed By: #### C BC #### [facility] [address] [place] [address] Dr. Dee Humphrey RBC 4.10 106/ul Critically low 4.20-5.40 [facility] Comment on above: Performed By: #### C BC #### [facility] [address] [place] [address] Dr. Dee Humphrey WBC 13.1 103/ul Critically high 4.0-11.0 [facility] Comment on above: Performed By: #### C BC #### [facility] [address] [place] [address] ABD/PELVIS WO CONon [...] by: ROCIO CHAU Date: 2022-04-27 20:24 Normal [facility] ER URINE PROFILEon 2 Bilirubin Ql (U) Negative Normal NEGATIVE [facility] Comment on above: Performed By: #### P REGU, ERUR #### [facility] [address] [place] [address] Dr. Dee Humphrey Clarity (U) CLEAR Normal CLEAR [facility] Comment on above: Performed By: #### P REGU, ERUR #### [facility] [address] [place] [address] Dr. Dee Humphrey Color (U) YELLOW Normal YELLOW [facility] Comment on above: Performed By: #### P REGU, ERUR #### [facility] [address] [place] [address] Dr. Dee STANFORD A micrscopic examination will be performed if indicated. Normal [facility] Comment on above: Performed By: #### P REGU, ERUR #### [facility] [address] [place] [address] Dr. Dee Humphrey Glucose Ql (U) Negative Normal NEGATIVE [facility] Comment on above: Performed By: #### P REGU, ERUR #### [facility] [address] [address] [address] Dee Humphrey Hemoglobin Ql (U) Negative Normal NEGATIVE [facility] Comment on above: Performed By: #### P REGU, ERUR #### [facility] [address] [address] [address] Dee Humphrey Ketones Ql (U) Negative Normal NEGATIVE [facility] Comment on above: Performed By: #### P REGU, ERUR #### [facility] [address] [address] [address] Dee Humphrey LEUKOCYTES Negative Normal NEGATIVE [facility] Comment on above: Performed By: #### P REGU, ERUR #### [facility] [address] [place] [address] Dr. Dee Humphrey Nitrite Ql (U) Negative Normal NEGATIVE [facility] Comment on above: Performed By: #### P REGU, ERUR #### [facility] [address] [place] [address] Dr. Dee Humphrey pH (U) 5.5 [pH] Normal 5-9 [facility] Comment on above: Performed By: #### P REGU, ERUR #### [facility] [address] [place] [address] Dr. Dee Humphrey SPEC GRAVITY >=1.030 Abnormal 1.005-<=1.02 5 [facility] Comment on above: Performed By: #### P REGU, ERUR #### [facility] [address] [address] [address] Dee Humphrey UA PROTEIN Negative Normal NEGATIVE/ TRACE [facility] Comment on above: Performed By: #### P REGU, ERUR #### [facility] [address] [place] [address] Dr. Dee Humphrey UR MICRO IND NOT INDICATED Normal [facility] Comment on above: Performed By: #### P REGU, ERUR #### [facility] [address] [place] [address] Dr. Dee Humphrey Urobilinogen Qn (U) 0.2 {Blanca'U}/dL Normal 0.2 - 1. 0 [facility] Comment on above: Performed By: #### P REGU, ERUR #### [facility] [address] [place] [address] Dr. Dee Humphrey LIPASEon 04-27-2022 Lipase [Catalytic activity/Vol] 94.0 U/L Normal 73.0-393.0 [facility] Comment on above: Performed By: #### L IPA, CMP #### [facility] [address] [place] [address] Dr. Dee Humphrey URon 04-27-2022 , QUAL Negative Normal NEGATIVE [facility] Comment on above: Performed By: #### P REGU, ERUR #### [facility] [address] [place] [address] Dr. Dee Humphrey PROF 14(COMP METB)on 022 Albumin [Mass/Vol] 3.9 g/dL Normal 3.4-5.0 [facility] Comment on above: Performed By: #### L IPA, CMP #### [facility] [address] [place] [address] Dr. Dee Humphrey Albumin/Globulin [Mass ratio] 1.0 {ratio} Normal [facility] Comment on above: Performed By: #### L IPA, CMP #### [facility] [address] [place] [address] Dr. Dee Humphrey ALP [Catalytic activity/Vol] 87 U/L Normal 46-116 [facility] Comment on above: Performed By: #### L IPA, CMP #### [facility] [address] [place] [address] Dr. Dee Humphrey ALT [Catalytic activity/Vol] 31 U/L Normal 14-59 [facility] Comment on above: Performed By: #### L IPA, CMP #### [facility] [address] [place] [address] Dr. Dee Humphrey Anion gap [Moles/Vol] 10.8 mmol/L Normal [facility] Comment on above: Performed By: #### L IPA, CMP #### [facility] [address] [address] [address] Dee Humphrey AST [Catalytic activity/Vol] 17 U/L Normal 15-37 [facility] Comment on above: Performed By: #### L IPA, CMP #### [facility] [address] [address] [address] Dee Humphrey Bilirubin [Mass/Vol] 0.1 mg/dL Critically low 0.2-1.0 [facility] Comment on above: Performed By: #### L IPA, CMP #### [facility] [address] [address] [address] Dee Humphrey Calcium [Mass/Vol] 8.9 mg/dL Normal 8.5-10.1 [facility] Comment on above: Performed By: #### L IPA, CMP #### [facility] [address] [address] [address] Dee Humphrey Chloride [Moles/Vol] 103 mmol/L Normal 98-107 [facility] Comment on above: Performed By: #### L IPA, CMP #### [facility] [address] [address] [address] Dee Humphrey CO2 [Moles/Vol] 26.9 mmol/L Normal 21.0-32.0 [facility] Comment on above: Performed By: #### L IPA, CMP #### [facility] [address] [address] [address] Dee Humphrey Creatinine [Mass/Vol] 0.80 mg/dL Normal 0.55-1.02 [facility] Comment on above: Performed By: #### L IPA, CMP #### [facility] [address] [address] [address] Dee Humphrey EGFR-AF MOLDOVAN >60 Normal >=60 [facility] Comment on above: Performed By: #### L IPA, CMP #### [facility] [address] [place] [address] Dr. Dee Humphrey EGFR-NON AF MOLDOVAN >60 Normal >=60 [facility] Comment on above: Performed By: #### L IPA, CMP #### [facility] [address] [address] [address] Dee Humphrey Globulin (S) [Mass/Vol] 3.9 g/dL Normal [facility] Comment on above: Performed By: #### L IPA, CMP #### [facility] [address] [address] [address] Dee Humphrey Glucose [Mass/Vol] 96 mg/dL Normal 74-106 [facility] Comment on above: Performed By: #### L IPA, CMP #### [facility] [address] [address] [address] Dee Humphrey Potassium [Moles/Vol] 3.7 mmol/L Normal 3.5-5.1 [facility] Comment on above: Performed By: #### L IPA, CMP #### [facility] [address] [place] [address] Dr. Dee Humphrey Protein [Mass/Vol] 7.8 g/dL Normal 6.4-8.2 [facility] Comment on above: Performed By: #### L IPA, CMP #### [facility] [address] [place] [address] Dr. Dee Humphrey Sodium [Moles/Vol] 137 mmol/L Normal 136-145 [facility] Comment on above: Performed By: #### L IPA, CMP #### [facility] [address] [place] [address] Dr. Dee Humphrey Urea nitrogen [Mass/Vol] 13.0 mg/dL Normal 7.0-18.0 [facility] Comment on above: Performed By: #### L IPA, CMP #### [facility] [address] [place] [address] Dr. Dee Humphrey Urea nitrogen/Creatinine [Mass ratio] 16.2 mg/mg Normal [facility] Comment on above: Performed By: #### L IPA, CMP #### [facility] [address] [address] [address] Dee Humphrey CBC AUTO DIFFon 03-07-2022 BASO # 0.0 103/ul Normal 0.0-0.1 [facility] Comment on above: Performed By: #### C BC #### [facility] [address] [address] [address] Dee Humphrey Basophils/100 WBC (Bld) 0.3 % Normal 0.2-2.0 [facility] Comment on above: Performed By: #### C BC #### [facility] [address] [address] [address] Dee Humphrey EO # 0.1 103/ul Normal 0.0-0.7 [facility] Comment on above: Performed By: #### C BC #### [facility] [address] [address] [address] Dee Humphrey Eosinophils/100 WBC (Bld) 0.7 % Critically low 0.9-7.0 [facility] Comment on above: Performed By: #### C BC #### [facility] [address] [place] [address] Dr. Dee Humphrey Erythrocyte distribution width (RBC) [Ratio] 13.0 % Normal 11.0-15.0 [facility] Comment on above: Performed By: #### C BC #### [facility] [address] [place] [address] Dr. Dee Humphrey Hematocrit (Bld) [Volume fraction] 39.2 % Normal 36.0-48.0 [facility] Comment on above: Performed By: #### C BC #### [facility] [address] [place] [address] Dr. Dee Humphrey Hemoglobin (Bld) [Mass/Vol] 13.2 g/dL Normal 12.0-16.0 [facility] Comment on above: Performed By: #### C BC #### [facility] [address] [address] [address] Dee Humphrey IG # 0.05 10e3/ul Critically high 0.00-0.03 [facility] Comment on above: Performed By: #### C BC #### [facility] [address] [address] [address] Dee Humphrey IG % 0.5 % Normal 0.0-0.5 [facility] Comment on above: Performed By: #### C BC #### [facility] [address] [place] [address] Dr. Dee Humphrey LYMPH # 4.2 103/ul Critically high 1.2-3.8 [facility] Comment on above: Performed By: #### C BC #### [facility] [address] [place] [address] Dr. Dee Humphrey Lymphocytes/100 WBC (Bld) 43.1 % Normal 20.5-60.0 [facility] Comment on above: Performed By: #### C BC #### [facility] [address] [place] [address] Dr. Dee Humphrey MANUAL DIFF REQ NO Normal [facility] Comment on above: Performed By: #### C BC #### [facility] [address] [place] [address] Dr. Dee Humphrey MCH (RBC) [Entitic mass] 30.5 pg Normal 26.7-34.0 [facility] Comment on above: Performed By: #### C BC #### [facility] [address] [place] [address] Dr. Dee Humphrey MCHC (RBC) [Mass/Vol] 33.7 g/dL Normal 29.9-35.2 [facility] Comment on above: Performed By: #### C BC #### [facility] [address] [place] [address] Dr. Dee Humphrey MCV (RBC) [Entitic vol] 90.5 fL Normal 81.0-99.0 [facility] Comment on above: Performed By: #### C BC #### [facility] [address] [place] [address] Dr. Dee Humphrey MONO # 0.4 103/ul Normal 0.3-0.8 [facility] Comment on above: Performed By: #### C BC #### [facility] [address] [place] [address] Dr. Dee Humphrey Monocytes/100 WBC (Bld) 4.4 % Normal 1.7-12.0 [facility] Comment on above: Performed By: #### C BC #### [facility] [address] [place] [address] Dr. Dee Humphrey NEUT # 4.9 103/ul Normal 1.4-6.5 [facility] Comment on above: Performed By: #### C BC #### [facility] [address] [place] [address] Dr. Dee Humphrey Neutrophils/100 WBC (Bld) 51.0 % Normal 43.0-75.0 [facility] Comment on above: Performed By: #### C BC #### [facility] [address] [place] [address] Dr. Dee Humphrey Platelet mean volume (Bld) [Entitic vol] 9.6 fL Normal 9.5-13.5 [facility] Comment on above: Performed By: #### C BC #### [facility] [address] [place] [address] Dr. Dee Humphrey PLT 364 103/ul Normal 150-450 [facility] Comment on above: Performed By: #### C BC #### [facility] [address] [place] [address] Dr. Dee Humphrey RBC 4.33 106/ul Normal 4.20-5.40 [facility] Comment on above: Performed By: #### C BC #### [facility] [address] [place] [address] Dr. Dee Humphrey WBC 9.7 103/ul Normal 4.0-11.0 [facility] Comment on above: Performed By: #### C BC #### [facility] [address] [place] [address] Dr. Dee Humphrey LACTATE/LACTIC ACIDon 2021 Lactate [Moles/Vol] 1.1 mmol/L Normal 0.4-1.9 [facility] Comment on above: Performed By: #### P LORETTA AUGUSTINR #### [facility] [address] [place] [address] Dr. Dee Humphrey LIPASEon 03-07-2022 Lipase [Catalytic activity/Vol] 79.0 U/L Normal 73.0-393.0 [facility] Comment on above: Performed By: #### C MP, LIPA #### [facility] [address] [address] [address] Dee Humphrey PROF 14(COMP METB)on 022 Albumin [Mass/Vol] 3.8 g/dL Normal 3.4-5.0 [facility] Comment on above: Performed By: #### C MP, LIPA #### [facility] [address] [place] [address] Dr. Dee Humphrey Albumin/Globulin [Mass ratio] 0.9 {ratio} Normal [facility] Comment on above: Performed By: #### C MP, LIPA #### [facility] [address] [place] [address] Dr. Dee Humphrey ALP [Catalytic activity/Vol] 80 U/L Normal 46-116 [facility] Comment on above: Performed By: #### C MP, LIPA #### [facility] [address] [place] [address] Dr. Dee Humphrey ALT [Catalytic activity/Vol] 27 U/L Normal 14-59 [facility] Comment on above: Performed By: #### C MP, LIPA #### [facility] [address] [place] [address] Dr. Dee Humphrey Anion gap [Moles/Vol] 9.5 mmol/L Normal [facility] Comment on above: Performed By: #### C MP, LIPA #### [facility] [address] [place] [address] Dr. Dee Humphrey AST [Catalytic activity/Vol] 13 U/L Critically low 15-37 [facility] Comment on above: Performed By: #### C MP, LIPA #### [facility] [address] [place] [address] Dr. Dee Humphrey Bilirubin [Mass/Vol] 0.1 mg/dL Critically low 0.2-1.0 [facility] Comment on above: Performed By: #### C MP, LIPA #### [facility] [address] [place] [address] Dr. Dee Humphrey Calcium [Mass/Vol] 9.0 mg/dL Normal 8.5-10.1 [facility] Comment on above: Performed By: #### C MP, LIPA #### [facility] [address] [place] [address] Dr. Dee Humphrey Chloride [Moles/Vol] 103 mmol/L Normal 98-107 [facility] Comment on above: Performed By: #### C MP, LIPA #### [facility] [address] [place] [address] Dr. Dee Humphrey CO2 [Moles/Vol] 27.1 mmol/L Normal 21.0-32.0 [facility] Comment on above: Performed By: #### C MP, LIPA #### [facility] [address] [place] [address] Dr. Dee Humphrey Creatinine [Mass/Vol] 0.86 mg/dL Normal 0.55-1.02 [facility] Comment on above: Performed By: #### C MP, LIPA #### [facility] [address] [place] [address] Dr. Dee Humphrey EGFR-AF MOLDOVAN >60 Normal >=60 [facility] Comment on above: Performed By: #### C MP, LIPA #### [facility] [address] [place] [address] Dr. Dee Humphrey EGFR-NON AF MOLDOVAN >60 Normal >=60 [facility] Comment on above: Performed By: #### C MP, LIPA #### [facility] [address] [place] [address] Dr. Dee Humphrey Globulin (S) [Mass/Vol] 4.1 g/dL Normal [facility] Comment on above: Performed By: #### C MP, LIPA #### [facility] [address] [place] [address] Dr. Dee Humphrey Glucose [Mass/Vol] 99 mg/dL Normal 74-106 [facility] Comment on above: Performed By: #### C MP, LIPA #### [facility] [address] [place] [address] Dr. Dee Humphrey Potassium [Moles/Vol] 3.6 mmol/L Normal 3.5-5.1 [facility] Comment on above: Performed By: #### C MP, LIPA #### [facility] [address] [place] [address] Dr. Dee Humphrey Protein [Mass/Vol] 7.9 g/dL Normal 6.4-8.2 [facility] Comment on above: Performed By: #### C MP, LIPA #### [facility] [address] [address] [address] Dee Humphrey Sodium [Moles/Vol] 136 mmol/L Normal 136-145 [facility] Comment on above: Performed By: #### C MP, LIPA #### [facility] [address] [place] [address] Dr. Dee Humphrey Urea nitrogen [Mass/Vol] 12.0 mg/dL Normal 7.0-18.0 [facility] Comment on above: Performed By: #### C MP, LIPA #### [facility] [address] [place] [address] Dr. Dee Humphrey Urea nitrogen/Creatinine [Mass ratio] 14.0 mg/mg Normal [facility] Comment on above: Performed By: #### C MP, LIPA #### [facility] [address] [place] [address] Dr. Dee Humphrey Consent for COVID Vaccineon 08-09-2020 SARS-CoV-2 (COVID-19) RNA J LUIS+probe Ql (Unsp spec) [id number]:127 Normal [facility] Consent for Treatmenton 07-30 Consent for Treatment [id number]:127 Normal [facility] Coding Summary.on 08-07-2020 Coding Summary. CODING DATE: 08/07/2020 FINAL [facility] STATUS: PAYOR: Luzma APC DESCRIPTION [id number] [...] Yana Paredes Date Saved: 08/07/2020 02:46 pm [facility] Ambulatory Clinical Summaryo n 03-25-2020 Ambulatory Clinical Summary {[id number] [facility] Patient Educationon 03-19-20 Patient Education lurasidone (ilene SHEPHERD i done) Moon What is the most [...] ? an antiviral such as ritonavir; ? Dunseith's wort; or ? seizure medicine such as [...] irritable, agitate (more content not included)... Normal [facility] Video Visit - Telehealtho n 02-23-2020 [...] interactive video communications from my office using [employer] due to the restrictions of the COVID-19 pandemic. No physical exam was conducted other than those areas of the body visible to telecommunications with the patient located at [address] [place] [address], with no one else in attendance. If [...] Stopped age (more content not included)... Normal [facility] Comment on above: Result Comment: Elec tronically Signed By: Deepa [facility], Maia Ashley\.br\Date and Time Signed: 02/22/20 [...] interactive video communications from my office using [employer] due to the restrictions of the COVID-19 pandemic. No physical exam was conducted other than those areas of the body visible to telecommunications with the patient located at [address] [place] [phone], with no one else in attendance. If [...] Sister. Depres (more content not included)... Normal [facility] Comment on above: Result Comment: Elec tronically Signed By: Deepa [facility].mati\Date and Time Signed: 02/11/20 14:46 EDT [...] to telecommunications with the patient located at [address] [place] [address] [phone], with no one else in attendance. If [...] - Denies (more content not included)... Normal [facility] Comment on above: Result Comment: Elec tronically Signed By: Deepa [facility], Maia Montero.mati\Date and Time Signed: 02/11/20 [...] interactive video communications from my office using [employer] due to the restrictions of the COVID-19 pandemic. No physical exam was conducted other than those areas of the body visible to telecommunications with the patient located at [address] [place] [address] [phone], with no one else in attendance. If [...] Tobacco F (more content not included)... Normal [facility] Comment on above: Result Comment: Elec tronically Signed By: Deepa [facility] H[facility] Valle.mati\Date and Time Signed: 01/29/20 21:44 EDT Video [...] interactive video communications from my office using [employer] due to the restrictions of the COVID-19 pandemic. No physical exam was conducted other than those areas of the body visible to telecommunications with the patient located at [address] [place] [address] [phone], with no one else in attendance. If [...] No. Yes, (more content not included)... Normal [facility] Comment on above: Result Comment: Elec tronically Signed By: Deepa [facility], Maia K\.br\Date and Time Signed: 01/29/20 21:38 EDT Patient Educationon 01-28-20 Patient Education aripiprazole (KEMAR welsh) Say Deal [...] include drow (more content not included)... Normal [facility] Video Visit - Telehealtho n 01-13-2020 [...] interactive video communications from my office using [employer] due to the restrictions of the COVID-19 pandemic. No physical exam was conducted other than those areas of the body visible to telecommunications with the patient located at [address] [place] [address], with no one else in attendance. If [...] Tobacco For (more content not included)... Normal [facility] Comment on above: Result Comment: Elec tronically Signed By: Deepa [facility], Maia Montero.mati\Date and Time Signed: 01/13/20 [...] include drow (more content not included)... Normal [facility] Video Visit - Telehealtho n 01-07-2020 [...] interactive video communications from my office using [employer] due to the restrictions of the COVID-19 pandemic. No physical exam was conducted other than those areas of the body visible to telecommunications with the patient located at [address] [place] [address], with no one else in attendance. If [...] Use:. N (more content not included)... Normal [facility] Comment on above: Result Comment: Elec tronically Signed By: Deepa [facility], Maia Montero.br\Date and Time Signed: 01/07/20 [...] interactive video communications from my office using [employer] due to the restrictions of the COVID-19 pandemic. No physical exam was conducted other than those areas of the body visible to telecommunications with the patient located at [address] [place] [address] [phone], with no one else in attendance. If [...] Alcoholism: Father and (more content not included)... [facility] Comment on above: Result Comment: Elec tronically Signed By: Deepa [facility]\Date and Time Signed: 12/30/19 13:50 EDT [...] interactive video communications from my office using [employer] due to the restrictions of the COVID-19 pandemic. No physical exam was conducted other than those areas of the body visible to telecommunications with the patient located at [address] [place] [address] [phone], with no one else in attendance. If [...] Alcohol U (more content not included)... Normal [facility] Comment on above: Result Comment: Elec tronically Signed By: Deepa [facility], Maia Ashley\.mati\Date and Time Signed: 12/23/19 [...] include drow (more content not included)... Normal [facility] Video Visit - Telehealtho n 12-04-2019 [...] interactive video communications from my office using [employer] due to the restrictions of the COVID-19 pandemic. No physical exam was conducted other than those areas of the body visible to telecommunications with the patient located at [address] [place] [address], with no one else in attendance. If [...] Daily, 5 (more content not included)... Normal [facility] Comment on above: Result Comment: Elec tronically Signed By: Deepa [facility]\Date and Time Signed: 12/04/19 09:42 EDT Patient [...] rate, h (more content not included)... Normal [facility] Vital Signs Date Time Vital Sign Value Performing Clinician Facility 05-13-2024 15:04-0500 Body mass index (BMI) [Ratio] 41.67 kg/m2 Liza ANTONIO Work Phone: [facility] 05-13-2024 15:04-0500 Body weight 103.33 kg Liza ANTONIO Work Phone: [facility] 05-13-2024 15:04-0500 Diastolic blood pressure 82 mm[Hg] Liza ANTONIO Work Phone: [facility] 05-13-2024 15:04-0500 Systolic blood pressure 140 mm[Hg] Liza ANTONIO Work Phone: [facility] 04-03-2024 13:59-0500 Body mass index (BMI) [Ratio] 42.07 kg/m2 Johnathan Jorje DO Work Phone: [facility] 04-03-2024 13:59-0500 Body weight 104.33 kg Johnathan Jorje DO Work Phone: [facility] 04-03-2024 13:59-0500 Diastolic blood pressure 78 mm[Hg] Johnathan Jorje DO Work Phone: [facility] 04-03-2024 13:59-0500 Systolic blood pressure 110 mm[Hg] Johnathan Jorje DO Work Phone: [facility] 03-21-2024 14:01-0500 Body mass index (BMI) [Ratio] 41.7 kg/m2 Liza ANTONIO Work Phone: [facility] 03-21-2024 14:01-0500 Body weight 103.42 kg Liza Nome PA Work Phone: [facility] 03-21-2024 14:01-0500 Diastolic blood pressure 72 mm[Hg] Liza Nome PA Work Phone: [facility] 03-21-2024 14:01-0500 Systolic blood pressure 112 mm[Hg] Liza Nome PA Work Phone: [facility] 03-11-2024 14:26-0500 Body mass index (BMI) [Ratio] 41.96 kg/m2 Liza Kt PA Work Phone: [facility] 03-11-2024 14:26-0500 Body weight 104.06 kg Liza Kt PA Work Phone: [facility] 03-11-2024 14:26-0500 Diastolic blood pressure 70 mm[Hg] Liza Nome PA Work Phone: [facility] 03-11-2024 14:26-0500 Systolic blood pressure 120 mm[Hg] Liza Kt PA Work Phone: [facility] 03-06-2024 11:20-0500 Body mass index (BMI) [Ratio] 41.34 kg/m2 Johnathan Jorje DO Work Phone: [facility] 03-06-2024 11:20-0500 Body weight 102.51 kg Johnathan Jorje DO Work Phone: [facility] 03-06-2024 11:20-0500 Diastolic blood pressure 68 mm[Hg] Johnathan Jorje DO Work Phone: [facility] 03-06-2024 11:20-0500 Systolic blood pressure 120 mm[Hg] Johnathan Jorje DO Work Phone: [facility] 02-21-2024 13:57-0400 Body mass index (BMI) [Ratio] 41.3 kg/m2 Johnathan Jorje DO Work Phone: [facility] 02-21-2024 13:57-0400 Body weight 102.42 kg Johnathan Jorje DO Work Phone: [facility] 02-21-2024 13:57-0400 Diastolic blood pressure 70 mm[Hg] Johnathan Jorje DO Work Phone: [facility] 02-21-2024 13:57-0400 Systolic blood pressure 100 mm[Hg] Johnathan Jorje DO Work Phone: [facility] 02-15-2024 13:03-0400 Body height 160 cm Malena Cardona MD Work Phone: [facility] 02-15-2024 13:03-0400 Body mass index (BMI) [Ratio] 39.65 kg/m2 Malena Cardona MD Work Phone: [facility] 02-15-2024 13:03-0400 Body weight 101.52 kg Malena Cardona MD Work Phone: [facility] 02-15-2024 13:03-0400 Diastolic blood pressure 74 mm[Hg] Malena Cardona MD Work Phone: [facility] 02-15-2024 13:03-0400 Heart rate 94 /min Malena Cardona MD Work Phone: [facility] 02-15-2024 13:03-0400 Systolic blood pressure 123 mm[Hg] Malena Cardona MD Work Phone: [facility] 01-24-2024 11:57-0400 Body mass index (BMI) [Ratio] 41.15 kg/m2 Johnathan Jorje DO Work Phone: [facility] 01-24-2024 11:57-0400 Body weight 102.06 kg Johnathan Jorje DO Work Phone: [facility] 01-24-2024 11:57-0400 Diastolic blood pressure 78 mm[Hg] Johnathan Jorje DO Work Phone: [facility] 01-24-2024 11:57-0400 Systolic blood pressure 124 mm[Hg] Johnathan Jorje DO Work Phone: [facility] 01-03-2024 15:02-0400 Body mass index (BMI) [Ratio] 42.07 kg/m2 Liza Duque PA Work Phone: [facility] 01-03-2024 15:02-0400 Body weight 104.33 kg Liza Kt PA Work Phone: [facility] 01-03-2024 15:02-0400 Diastolic blood pressure 74 mm[Hg] Liza Nome PA Work Phone: [facility] 01-03-2024 15:02-0400 Systolic blood pressure 122 mm[Hg] Liza Corderoey PA Work Phone: [facility] 12-25-2023 11:22-0400 Body mass index (BMI) [Ratio] 40.79 kg/m2 Johnathan Jorje DO Work Phone: [facility] 12-25-2023 11:22-0400 Body weight 101.15 kg Johnathan Jorje DO Work Phone: [facility] 12-25-2023 11:22-0400 Diastolic blood pressure 76 mm[Hg] Johnathan Jorje DO Work Phone: [facility] 12-25-2023 11:22-0400 Systolic blood pressure 122 mm[Hg] Johnathan Jorje DO Work Phone: [facility] 08-18-2023 14:24-0400 Body height 160.02 cm [facility] 08-18-2023 14:24-0400 Body mass index (BMI) [Ratio] 40.2 kg/m2 [facility] 08-18-2023 14:24-0400 Body temperature 98.4 [degF] [facility] 08-18-2023 14:24-0400 Body weight 103.02 kg [facility] 08-18-2023 14:24-0400 Diastolic blood pressure 81 mm[Hg] [facility] 08-18-2023 14:24-0400 Heart rate 101 /min [facility] 08-18-2023 14:24-0400 Respiratory rate 16 /min [facility] 08-18-2023 14:24-0400 SaO2% (BldA) [Mass fraction] 98 % [facility] 08-18-2023 14:24-0400 Systolic blood pressure 133 mm[Hg] [facility] 04-27-2023 16:30-0500 Body height 160.02 cm Sanaz Lockwood Other [employer] [facility] [employer] Other 04-27-2023 16:30-0500 Body mass index (BMI) [Ratio] 40.92 kg/m2 Sanaz Lockwood Other [employer] Other 04-27-2023 16:30-0500 Body temperature 98.2 [degF] Sanaz Lockwood Other [employer] Other 04-27-2023 16:30-0500 Body weight 104.78 kg Sanaz Lockwood Other [employer] Other 04-27-2023 16:30-0500 Respiratory rate 18 /min Sanaz Lockwood Other [employer] Other 04-27-2023 16:30-0500 SaO2% (BldA) [Mass fraction] 99 % Sanaz Lockwood Other [employer] Other 05-10-2022 14:45-0500 Body height 160.02 cm Kaylah Han Other [employer] Other 05-10-2022 14:45-0500 Body mass index (BMI) [Ratio] 38.97 kg/m2 Kaylah Han Other [employer] Other 05-10-2022 14:45-0500 Body temperature 99.3 [degF] Kaylah Han Other [employer] Other 05-10-2022 14:45-0500 Body weight 99.79 kg Kaylah Han Other [employer] Other 06-29-2019 22:40-0500 Pulse (Heart Rate) 84 /min [facility] 06-29-2019 22:40-0500 Pulse Oximetry 97 % [facility] 06-29-2019 22:35-0500 BP Diastolic 56 mm[Hg] [facility] 06-29-2019 22:35-0500 BP Systolic 100 mm[Hg] [facility] 06-29-2019 21:11-0500 BMI (Body Mass Index) 33.1 kg/m2 [facility] 06-29-2019 21:11-0500 Body Temperature 97.8 [degF] [facility] 06-29-2019 21:11-0500 Body weight 84.8 kg [facility] 06-29-2019 21:11-0500 Height 160.02 cm [facility] 06-29-2019 21:11-0500 Respiratory Rate 20 /min [facility] Encounters Encounter Date Encounter Type Care Provider Facility Start: 05-13-2024 End: 05-13-2024 ambulatory LIZA DUQUE Not Available Start: 05-13-2024 End: 05-13-2024 Bamboo flowsheet Liza ANTONIO Work Phone: [facility] Start: 05-13-2024 End: 05-13-2024 Bamboo flowsheet Liza ANTONIO Work Phone: [facility] Start: 05-13-2024 End: 05-13-2024 flow sheet Liza ANTONIO Work Phone: [facility] Comment on above: 33 weeks gestation o f ; Third trimester ; Elevated blood pressure complicating in third trimester, antepartum; Gestational diabetes mellitus (GDM) in third trimester, gestational diabetes method of control unspecified; Insulin controlled gestational diabetes mellitus (GDM) during , antepartum Start: 05-09-2024 End: 05-09-2024 ambulatory JOHNATHAN JORJE Not Available Start: 04-22-2024 End: 04-22-2024 Clinisync Result Encounter Johnathan Jorje DO Work Phone: [facility] Unsolicited Start: 04-22-2024 End: 04-22-2024 Clinisync Result Encounter Johnathan Jorje DO Work Phone: [facility] Unsolicited Start: 04-22-2024 End: 04-22-2024 ambulatory Johnathan Jorje Facility:[facility] Start: 04-03-2024 End: 04-03-2024 Bamboo flowsheet Johnathan [...] tract infection without hematuria, site unspecified Start: 04-03-2024 End: 04-03-2024 ambulatory JOHNATHAN JORJE Not Available Start: 03-21-2024 End: 03-21-2024 Clinisync Result Encounter Johnathan Jorje DO Work Phone: [facility] Unsolicited Start: 03-21-2024 End: 03-21-2024 Clinisync Result Encounter Johnathan Jorje DO Work Phone: [facility] External Department Unsolicited Start: 03-21-2024 End: 03-21-2024 ambulatory LIZA DUQUE Not Available Start: 03-21-2024 End: 03-21-2024 flow sheet Liza ANTONIO Work Phone: [facility] Comment on above: Second trimester pre gnancy; 26 weeks gestation of ; Elevated glucose tolerance test; Gestational diabetes mellitus (GDM), antepartum, gestational diabetes method of control unspecified Start: 03-14-2024 End: 03-14-2024 ambulatory [facility] Start: 03-11-2024 End: 03-11-2024 Bamboo flowsheet Liza ANTONIO Work Phone: [facility] Start: 03-11-2024 End: 03-11-2024 Bamboo flowsheet Liza ANTONIO Work Phone: [facility] Start: 03-11-2024 End: 03-11-2024 ambulatory LIZA DUQUE Not Available Start: 03-11-2024 End: 03-11-2024 flow sheet Liza ANTONIO Work Phone: [facility] Comment on above: 24 weeks gestation o f ; Second trimester ; Acute cystitis with hematuria Start: 03-06-2024 End: 03-06-2024 Clinisync Result Encounter Johnathan Jorje DO Work Phone: [facility] External Department Unsolicited Start: 03-06-2024 End: 03-06-2024 Clinisync Result Encounter Johnathan Jorje DO Work Phone: [facility] External Department Unsolicited Start: 03-06-2024 End: 03-06-2024 ambulatory JOHNATHAN JORJE Not Available Start: 03-06-2024 End: 03-06-2024 flow sheet Johnathan Jorje DO Work Phone: [facility] Comment on above: 24 weeks gestation o f ; Second trimester ; Flank pain; Acute cystitis with hematuria Start: 02-26-2024 End: 02-26-2024 ambulatory [facility] Start: 02-21-2024 End: 02-21-2024 Bamboo flowsheet [...] Cardona MD Work Phone: [facility] Comment on above: 21 weeks gestation o f (Primary Dx); Multigravida of advanced maternal age in second trimester; Pyelonephritis affecting in second trimester; Bipolar disease during in second trimester ([facility]); Obesity affecting in second trimester, unspecified obesity type; BMI 39.0-39.9,adult; History of section complicating ; Vapes nicotine containing substance; Current rao with 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, antepartum; History of delivery, currently Start: 02-15-2024 End: 02-15-2024 Orders Only Flor Lopez RN [facility] Comment on above: 21 weeks gestation o f (Primary Dx); Obesity affecting in second trimester, unspecified obesity type Start: 02-15-2024 End: 02-15-2024 ambulatory JOHNATHAN Niño [facility] Start: 02-09-2024 End: 02-09-2024 Evaluation and management of inpatient TEJ ZENG [facility] Start: 02-08-2024 End: 02-09-2024 Evaluation and management of inpatient NATO LLOYD [facility] Start: 01-24-2024 End: 01-24-2024 Bamboo flowsheet [...] Start: 01-03-2024 End: 01-03-2024 flow sheet Liza Duque PA Work Phone: [facility] Comment on [...] Start: 12-25-2023 End: 12-25-2023 flow sheet Johnathan Recinos DO Work Phone: [facility] Comment on above: Second trimester pre gnancy Start: 11-24-2023 End: 11-24-2023 ambulatory JOHNATHAN RECINOS Not Available Start: 08-18-2023 End: 08-18-2023 ambulatory [facility] Work Phone: Start: 08-18-2023 End: 08-18-2023 Patient encounter procedure [facility] Physician [facility] Work Phone: Start: 04-27-2023 End: 04-27-2023 ambulatory Sanaz Lockwood Other [employer] Other Start: 04-27-2023 Office outpatient vi sit 25 minutes Sanaz Lockwood [facility] Start: 05-10-2022 End: 05-10-2022 ambulatory Kaylah Han Other [employer] Other Start: 05-10-2022 Office outpatient ne w 20 minutes Kaylahpedrito Han [facility] Start: 04-27-2022 End: 04-27-2022 ambulatory KIMBERLYN XIE Facility:[facility] Start: 03-07-2022 End: 03-07-2022 ambulatory KIMBERLYN XIE Facility:[facility] Start: 09-23-[address] JAZIEL HILL Facility :[facility] Start: 06-29-2019 End: 06-29-2019 Emergency department patient visit Kimberlyn Xie [facility] Procedures Date Procedure Procedure Detail Performing Clinician Start: 05-13-2024 Urnls dip stick/tablet rgnt non-auto w/o micrscp Liza ANTONIO Work Phone: Start: 04-22-2024 TBH UA (CLEAN/CATCH) HAIR SPRING CUTTER/MICRO IF IND. Johnathan Riverao DO Work Phone: Start: 04-03-2024 RECURRENT VAGINITIS (HTRX) Johnathan Raezio DO Work Phone: Start: 04-03-2024 Urnls dip stick/tablet rgnt non-auto w/o micrscp Johnathan Jorje DO Work Phone: Start: 03-21-2024 Urnls dip stick/tablet rgnt non-auto w/o micrscp Liza ANTONIO Work Phone: Start: 03-21-2024 ALL CBC WITH AUTO DIFF Johnathan Jorje DO Work Phone: Start: 03-11-2024 Urnls dip stick/tablet rgnt non-auto w/o micrscp Johnathan Jorje DO Work Phone: Start: 03-06-2024 TBH UA (CLEAN/CATCH) HAIR SPRING CUTTER/MICRO IF IND. Johnathan Jorje DO Work Phone: Start: 03-06-2024 Urnls dip stick/tablet rgnt non-auto w/o micrscp Johnathan Jorje DO Work Phone: Start: 02-21-2024 Urnls dip stick/tablet rgnt non-auto w/o micrscp Johnathan Jorje DO Work Phone: Start: 02-15-2024 H/O: section History of section complicating Malena Cardona MD Work Phone: Start: 01-24-2024 URETHRITIS/DISCHARGE PLUS VAGINITIS (HTRX) Johnathan Jorje DO Work Phone: Start: 01-24-2024 AFP, SERUM, OPEN SPINA BIFIDA Johnathan Jorje DO Work Phone: Start: 01-24-2024 Urnls dip stick/tablet rgnt non-auto w/o micrscp Johnathan Jorje DO Work Phone: Start: 01-24-2024 Microscopic observation [Identifier] in Cervix by Cyto stain Flor Lopez RN Start: 01-03-2024 Urnls dip stick/tablet rgnt non-auto w/o micrscp Liza ANTONIO Work Phone: Start: 08-18-2023 Quick Strep (POC) Plan of Treatment Date Care Activity Detail Author Start: 01-23-2027 Screening for malign ant neoplasm of cervix [facility] Start: 02-14-2025 Adult BMI Screening Adult BMI Screen ing [facility] Start: 02-14-2025 Tobacco Screening Tobacco Screening [facility] Start: 02-14-2025 End: 02-14-2025 US MFM with or without consult US MFM with or without consult Imaging Routine 21 weeks gestation of Obesity affecting in second trimester, unspecified obesity type Expected: 02/14/2025 (Approximate), Expires: 02/14/2025 [facility] Work Phone: Comment on above: Expected: 02/14/2025 (Approximate), Expires: 02/14/2025 Start: 05-22-2024 End: 05-22-2024 Patient encounter procedure 05/22/2024 2:20 PM EST Routine [facility] [address] [place] [id number] Johnathan Recinos, [address] [place] [address] [facility] Start: 05-13-2024 End: 05-13-2025 US biophysical profile w non stress test US biophysical profile w non stress test Imaging Routine Elevated blood pressure complicating in third trimester, antepartum Gestational diabetes mellitus (GDM) in third trimester, gestational diabetes method of control unspecified Expected: 05/13/2024 (Approximate), Expires: 05/13/2025 [facility] Work Phone: Comment on above: Expected: 05/13/2024 (Approximate), Expires: 05/13/2025 Start: 05-09-2024 End: 05-09-2024 Professional / ancillary services management 05/09/2024 8:30 AM EST Ancillary Procedure [facility] [address] [facility] [place] [id number] [facility] Start: 04-03-2024 End: 04-03-2024 Patient encounter procedure [facility] Comment on above: Arrived Start: 04-03-2024 End: 04-03-2024 Professional / ancillary services management 04/03/2024 1:00 PM EST Ancillary Procedure [facility] [address] [place] [phone] [facility] Start: 03-21-2024 End: 03-21-2025 Measurement of glucose 3 hours after glucose challenge for glucose tolerance test Glucose tolerance, 3 hours Lab Routine Elevated glucose tolerance test Expected: 03/21/2024 (Approximate), Expires: 03/21/2025 [facility] Work Phone: Comment on above: Expected: 03/21/2024 (Approximate), Expires: 03/21/2025 Start: 03-21-2024 End: 03-21-2025 US for US OB SCAN FOR GROWTH Imaging Routine Gestational diabetes mellitus (GDM), antepartum, gestational diabetes method of control unspecified Expected: 03/21/2024 (Approximate), Expires: 03/21/2025 [facility] Healthcare Comment on above: Expected: 03/21/2024 (Approximate), Expires: 03/21/2025 Start: 03-21-2024 End: 03-21-2024 Patient encounter procedure 03/21/2024 1:30 PM EST Routine [facility] [address] [place] [phone] Liza Duque PA [address] [facility] [place] [address] [facility] OB Start: 03-14-2024 End: 03-14-2024 Patient encounter procedure 03/14/2024 9:45 AM EST Appointment [facility] US Imaging [address] [place] [phone] [facility] US Imaging Start: 02-22-2024 End: 02-22-2024 Patient encounter procedure 02/22/2024 10:15 AM EDT Appointment [facility] [address] [facility] [address] [place] [address] [facility] Start: 02-21-2024 End: 02-20-2025 CBC panel - Blood by Automated count CBC Lab Routine Diabetes mellitus screening Expected: 02/21/2024 (Approximate), Expires: 02/20/2025 [facility] Healthcare Work Phone: Comment on above: Expected: 02/21/2024 (Approximate), Expires: 02/20/2025 Start: 02-21-2024 End: 02-20-2025 Measurement of glucose 1 hour after glucose challenge for glucose tolerance test Glucose tolerance, 1 hour Lab Routine Diabetes mellitus screening Expected: 02/21/2024 (Approximate), Expires: 02/20/2025 [facility] Healthcare Comment on above: Expected: 02/21/2024 (Approximate), Expires: 02/20/2025 Start: 02-21-2024 End: 02-21-2024 Patient encounter procedure 02/21/2024 1:50 PM EDT Routine [facility] [address] [facility] [place] [phone] Johnathan Recinos, DO [address] [place] [address] [facility] Start: 01-24-2024 End: 02-23-2024 Alpha fetoprotein, maternal Alpha fetoprotein, maternal Lab Routine 18 weeks gestation of Expected: 01/24/2024 (Approximate), Expires: 02/23/2024 [facility] Comment on above: Expected: 01/24/2024 (Approximate), Expires: 02/23/2024 Start: 01-22-2024 End: 01-22-2024 Patient encounter procedure 01/22/2024 10:20 AM EDT Routine [facility] [address] [place] [phone] Johnathan Recinos, DO [address] [place] [address] [facility] BCP OB Start: 12-31-2023 COVID-19 Vaccine ( season) COVID-19 Vaccine ( season) [facility] Start: 12-31-2023 Influenza vaccination [facility] Start: 10-11-2021 DTaP,Tdap and Td Vaccines (2 - Td or Tdap) DTaP,Tdap and Td Vaccines (2 - Td or Tdap) [facility] Start: 2017 Screening for malign ant neoplasm of cervix [facility] Start: 2008 Screening for malign ant neoplasm of cervix Pap Smear [facility] Start: 2005 Adult BMI Follow Up Plan Adult BMI Follow Up Plan [facility] Start: 1999 Depression Screening Depression Scre ening [facility] Bacteria identified in Urine by Culture Urine culture Microbiology Routine 24 weeks gestation of Second trimester Ordered: 03/06/2024 [facility] Work Phone: Comment on above: Ordered: 03/06/2024 Bacteria identified in Urine by Culture Urine culture Microbiology Routine Flank pain Acute cystitis with hematuria Urinary tract infection without hematuria, site unspecified Ordered: 04/03/2024 [facility] Work Phone: Comment on above: Ordered: 04/03/2024 CHLAMYDIA TRACHOMATI S (GENITO/STI) CHLAMYDIA TRACHOMATIS (GENITO/STI) Lab Routine Exposure to STD Ordered: 01/24/2024 [facility] Comment on above: Ordered: 01/24/2024 Cytology Cervical or vaginal smear or scraping study Pap Smear Pathology and Cytology Routine Well woman exam with routine gynecological exam Ordered: 01/24/2024 [facility] Comment on above: Ordered: 01/24/2024 Human papilloma viru s DNA [Presence] in Unspecified specimen by Probe with amplification HPV DNA probe, amplified Microbiology Routine Well woman exam with routine gynecological exam Ordered: 01/24/2024 [facility] Comment on above: Ordered: 01/24/2024 Neisseria gonorrhoea e DNA [Presence] in Unspecified specimen by J LUIS with probe detection Neisseria gonorrhea DNA probe, direct Lab Routine Exposure to STD Ordered: 01/24/2024 [facility] Comment on above: Ordered: 01/24/2024 Patient Education Epinephrine (B y injection) Anaphylaxis (ED) General Allergic Reaction (ED) [facility] Patient referral [facility] SURESWAB(R) ADVANCED VAGINITIS PLUS, TMA SURESWAB(R) ADVANCED VAGINITIS PLUS, TMA Pathology and Cytology Routine Vaginal discharge Ordered: 01/24/2024 [facility] Healthcare Work Phone: Comment on above: Ordered: 01/24/2024 Immunizations Immunization Date Immunization Notes Care Provider Butch sims 06-02-2008 influenza virus vacc ine, unspecified formulation Johnathan Recinos DO Work Phone: [facility] Healthcare Payers Date Payer Category Payer Self-pay [id number] 2024 [facility] Health [facility] [id number] 2024 Medicaid [id number] 2023 [facility] er [id number] 2023 [facility] Managed Care - O ANTHEM [id number] 2023 Unknown BCBS BCBS [id number] [id number] 2023-Present [phone] [address] [place] [id number] .[id number] 1987 Unknown [id number] 2.16.840.1.301272.3.579.2 .593 1987 Unknown [id number] 2.16.840.1.812427.3.579.2 .593 1987 Unknown [id number] 2.16.840.1.317395.3.579.2 .593 1987 Unknown [id number] 2.16.840.1.317192.3.579.2 .1286 1987 Unknown [id number] 2.16.840.1.897965.3.579.2 .1286 1987 Unknown [id number] 2.16.840.1.320987.3.579.2 .1286 1987 Unknown [id number] 2.16.840.1.920855.3.579.2 .1286 1987 Unknown [id number] 2.16.840.1.335612.3.579.2 .6 1987 Unknown [id number] 2.16.840.1.414510.3.579.2 .1286 1987 Unknown [id number] 2.16.840.1.274027.3.579.2 .9 1987 Unknown [id number] 2.16.840.1.358330.3.579.2 .9 1987 Unknown [id number] 2.16.840.1.127780.3.579.2 .9 1987 Unknown [id number] 2.16.840.1.663632.3.579.2 .9 1987 Unknown [id number] 2.16.840.1.360801.3.579.2 .1258 1987 Unknown [id number] 2.16.840.1.886273.3.579.2 .9 1987 Unknown [id number] 2.16.840.1.103060.3.579.2 .9 1987 Unknown [id number] 2.16.840.1.139077.3.579.2 .9 1987 Unknown [id number] 2.16.840.1.781218.3.579.2 .1258 1987 Unknown [id number] 2.16.840.1.377101.3.579.2 .9 1987 Unknown [id number] 2.16.840.1.486342.3.579.2 .9 1959 Self-pay [id number] 1959 Unknown [id number] Private Health Insurance [id number] Unknown [id number] 2.16.840.1.101643.3.579.2 .531 Social History Date Type Detail Facility Start: 06-29-2019 End: 08-18-2023 Tobacco smoking status [facility] Smoker (finding) [facility] Start: 1985 Sex Assigned At Female [facility] Start: 06-10-2020 End: 02-15-2024 Sex Assigned At [facility] Start: 02-15-2024 Tobacco smoking status [facility] Ex-smoker [facility] Start: 02-15-2024 Tobacco use and exposure Smokeless tobacco non-user [facility] Start: 02-15-2024 Alcoholic beverage intake Lifetime non-drinker (finding) [facility] Start: 06-10-2020 End: 02-15-2024 History of Social function [facility] Childcare Unknown [facility] Start: 02-15-2024 Tobacco Comment PT IS A VAPER [facility] tem Start: 10-03-2023 [facility] Start: 1987 Sex assigned at Not on file [facility] Start: 12-02-2014 Sex Female (finding) [facility] Start: 02-08-2024 Sexual orientation Heterosexual (finding) [facility] Tobacco smoking stat [facility] Tobacco smoking consumption unknown [facility] Start: 10-26-2023 Gender identity Identifies as female gender (finding) [facility] Medical Equipment Procedure Code Equipment Code Equipment Original Text Equipment Identifier Dates 1 strip by In Vi tro route Daily Use in the morning prior to breakfast, 1 hour after each meal for a total of 4times daily. [id number] Start: 03-25-2024 End: 04-24-2024 1 each by In Vit ro route Daily Use to check FSBS four times daily [id number] Start: 03-25-2024 End: 04-24-2024 Inject 1 each un vickie the skin See administration instructions Use four times daily with insulin pen. [id number] Start: 05-13-2024 End: 06-12-2024 Goals Date Patient Goal Desired Activity /State Personal health goal Comment on above: Formatting of this n ote might be different from the original. Evaluation of progress towards goal: go home today Clinical Notes 12-02-2019 to 05-13-2024 Barbara Guillermo LPN - 05/13/2024 1:50 PM Meghna Hendricks LPN - 04/03/2024 1:40 PM PACO Snider - 03/21/2024 1:30 PM YANNICKanali GuillermoMARIA E - 03/11/2024 1:50 PM EST Note Date & Type Note Facility 05-13-2024 History of Present illness Narrative Reason for Appointment: Patient ID: Mikaela Ruiz is a 39 y.o. female who presents for No chief complaint on file. Patient presents today for Return OB appointment. MEDICATIONS Current Outpatient Medications Medication Instructions Alcohol Swabs (Alcohol Prep Pad) 70 % pads 1 Pad, Topical, Daily, Use four times daily to check FSBS. aspirin 81 mg, Daily Blood Glucose Monitoring Suppl (D-Wikidata Glucometer) w/Device kit 1 kit, Does not apply, Daily, Use four times daily to check FSBS. In the morning prior to breakfast & 1 hour after each meal for a total of 4times daily. lamoTRIgine (LAMICTAL) 200 mg, Daily lurasidone (LATUDA) 40 mg, Daily with breakfast magnesium oxide (MAG-OX) 400 mg, Oral, Daily metoclopramide (REGLAN) 10 mg, Oral, 3 times daily before meals, Take 1 tablet by mouth 30 minutes prior to meals 3 times daily as needed for nausea. ondansetron ODT (ZOFRAN-ODT) 4 mg, Oral, Every [...] weeks gestation of 04/03/2024 Third trimester 04/03/2024 Urinary tract infection without hematuria 04/18/2024 Flank pain 04/18/2024 Resolved Ambulatory Problems Diagnosis Date Noted No [...] nursing note reviewed. Exam conducted with a bitumen plant operator present. Vitals: Estimated body mass index is 42.07 kg/m as calculated from the following: Height as of 03/18/22: 5' 2 . Weight as of 04/03/24: 230 lb. BP: Patient's last menstrual period was 09/12/2023. ASSESSMENT & PLAN Patient presents today for a routine obstetrics appointment. Patient is currently 33w6d with a Estimated Date of Delivery: 06/25/24. Patient complaints of increased fatigue, elevated BP and sugar levels have been elevated. Patient to report to [facility] for NST/BPP/Cervical Length today for monitoring. Patient to setup the remaining NST/BPPs. Patient to start Lantus today as well for uncontrolled gestational diabetes. Patient to have Repeat on 06/04/24 due to uncontrolled GDM and elevated Bps (mild pre-eclampsia). Documented by Barbara Guillermo LPN on behalf of: Johnathan Recinos DO documented in this encounter [facility] 04-03-2024 History of Present illness Narrative Reason for Appointment: Patient ID: Mikaela Ruiz is a 38 y.o. female who presents for Routine Visit Patient presents today for Return OB appointment. MEDICATIONS Current Outpatient Medications Medication Instructions Alcohol Swabs (Alcohol Prep Pad) 70 % pads 1 Pad, Topical, Daily, Use four times daily to check FSBS. aspirin 81 mg, Daily Blood Glucose Monitoring Suppl (D-Care Glucometer) w/Device kit 1 kit, Does not [...] Medical History: Diagnosis Date Bipolar 1 disorder ([facility]) HISTORY PAST MEDICAL HISTORY SOCIAL HISTORY Past Medical History: Diagnosis Date Bipolar 1 disorder ([facility]) Social History Tobacco Use Smoking [...] nursing note reviewed. Exam conducted with a bitumen plant operator present. Vitals: Estimated body mass index is [...] Johnathan Recinos DO documented in this encounter [facility] 03-21-2024 History of Present illness Narrative Reason [...] Medical History: Diagnosis Date Bipolar 1 disorder ([facility]) HISTORY PAST MEDICAL HISTORY SOCIAL [...] hour glucose order to have done at [facility]. Patient DECLINES 3 hour gtt and would like to start testing FSBS--Patient will be referred to Diabetic Edu at [facility]. Follow Up: Patient is to return to office in 2 week for routine OB appointment. Documented by Nettie Frazier MA on behalf of: PACO Freed documented in this encounter [facility] 03-11-2024 History of Present illness Narrative Reason [...] nursing note reviewed. Exam conducted with a bitumen plant operator present. Vitals: Estimated body mass index is [...] of . Nursing will reach out to [facility] to inquire about culture results. Patient does have follow up appointment with Maternal Medicine. Patient to return to clinic in 4 weeks for routine OB appointment. Documented by Barbara Guillermo LPN on behalf of: PACO Freed documented in this encounter [facility] 03-06-2024 History of Present illness Narrative Reason for Appointment: Patient ID: iMkaela Ruiz is a 38 y.o. female who [...] nursing note reviewed. Exam conducted with a bitumen plant operator present. Vitals: Estimated body mass index is [...] Johnathan Recinos DO documented in this encounter [facility] 02-21-2024 History of Present illness Narrative Reason [...] Medical History: Diagnosis Date Bipolar 1 disorder ([facility]) HISTORY PAST MEDICAL HISTORY SOCIAL HISTORY Past Medical History: Diagnosis Date Bipolar 1 disorder ([facility]) Social History Tobacco Use Smoking [...] nursing note reviewed. Exam conducted with a bitumen plant operator present. Vitals: Estimated body mass index is [...] Johnathan Recinos DO documented in this encounter [facility] 02-15-2024 History of Present illness Narrative [facility] Consult Note Reason For Consult: AMA, history of section x3, pyelonephritis follow up HPI: Maria De Jesus Ruiz is a 38 y.o. at 21w2d with Estimated Date of Delivery: 06/25/24 based on LMP=US at who presented for consultation from Dr. Recinos, Johnathan Niño DO regarding Chief Complaint Patient presents with [...] Medical History: Diagnosis Date Bipolar 1 disorder ([facility]) Depression PSHIST: Past Surgical History: [...] 4. Bipolar disease during in second trimester ([facility]) I reviewed with the patient [...] of withdrawal and extrapyramidal effects on reviewed. Senior Net Programmer should be notified. Lack of controlled human [...] . For prevention of venous thromboembolism in [id number] groups, pharmacologic thromboprophylaxis should be considered in [...] prevention Cervical length at 22 weeks at [facility] Follow up survey scheduled Serial growth assessments every 4 weeks after the anatomy scan can be done at OB office. ventricles should be measured at each US. If >=10 mm or concern for hydrocephalus refer to [facility]. If you would like [facility] to do the growth US please [...] Malena Cardona MD, FACOG (she/hers) Maternal- Medicine [facility] [address] [facility] [address] [place] [address] This document was created with [employer] technology. Though I make every effort to review the dictation as it is transcribed, on occasion the spoken word can be misinterpreted by the technology leading to inappropriate words, phrases, or sentences. This note is addressed to the requesting provider as a consultation for clinical guidance. Specific medical abbreviations are occasionally used and those are generally approved by the [place]?Board of?Obstetrics and?Gynecology?as well as?Jeri s abbreviations. The above plan of care was based solely on the diagnoses for which a consultation was requested. ?More frequent testing may be indicated based on her other medical/obstetrical conditions. The management of other or medical conditions is beyond the scope of requested consultation and will continue to be followed by the primary electrical installation supervisor or primary care provider. Note to [...] yes Have you been seen here at [facility] in a previous ? yes Recent ER visits or hospitalizations? 02/07 kidney and bladder infection Bring blood sugar log or meter with you today? (Please bring them with you for every visit at [facility]) na Flu vaccine (Mar-June)? na Any concerns that you would like me to mention to the provider today? no documented in this encounter [facility] 01-24-2024 History of Present illness Narrative Reason [...] 4 section, pt to be referred to [facility] for level II ultrasound. Pt to [...] Johnathan Recinos DO documented in this encounter [facility] 01-03-2024 History of Present illness Narrative Reason [...] of: PACO Freed documented in this encounter [facility] 12-25-2023 History of Present illness Narrative Reason [...] Medical History: Diagnosis Date Bipolar 1 disorder ([facility]) HISTORY PAST MEDICAL HISTORY SOCIAL [...] nursing note reviewed. Exam conducted with a bitumen plant operator present. Vitals: Estimated body mass index is [...] or undercooked meat, and stay away from [facility]. Patient has been consulted regarding any [...] Liza Duque PA-C documented in this encounter [facility] 04-27-2023 Evaluation note Encounter Date Diagnosis Assessment [...] condition. Mar, Sore throat (ICD-10 - J02.9) [facility] 01-10-2023 Evaluation note* Encounter Date Diagnosis [...] weeks for the cough to go away [facility] 11-07-2022 NoteIndication: Abdominal pain. Comparison: None [...] Electronically authenticated by: SURJIT FREITAS Date: 2022-03-07 20:49[facility]19-[facility] NoteI Staff This visit was conducted via phone communications from my office due to the restrictions of the COVID-19 pandemic. No physical exam was conducted due to audio only communication with the patient located at [address] [place], [place] [phone], with no one else. If it is determined that the patientshould be evaluated in person, the patient will be directed to the appropriate clinic or venue. Thepatient or their guardian verbally consented to this visit. Phone time was 15 minutes discussing health issues with counseling and coordination of care. Subjective Interval History/HPI Patient presents today for follow up via telehealth phone from [facility]. Patient started Latuda 20mg last evening [...] anxiety, # 30 tab(s), Refills(s) 2, Pharmacy: [facility]/pharmacy #[id number], 161, cm, 12/23/19 10:18:00 EDT, Height/Length Dosing, 82, kg, 12/23/19 10:18:00 EDT, Weight Dosing Orders: lurasidone, 20 mg = 1 tab(s), Oral, Daily, with 350 calories; begin this dose first then progress to next dose of 40mg, X 1 week(s), # 7 tab(s), Refills(s) 0, Pharmacy: [facility]/pharmacy #[id number], 161, cm, 12/23/19 10:18:00 EDT, Height/Length Dosing, 82, kg, 12/23/19 10:... lurasidone, 40 mg = 1 tab(s), Oral, Daily, with 350 calories, # 30 tab(s), Refills(s) 1, Pharmacy: [facility]/pharmacy #[id number], 161, cm, 12/23/19 10:18:00 EDT, Height/Length [...] (generalized anxiety disorder) Hidr (more content not included)...[facility]: Result Comment: Electronically Signed By: Carlota RODRIGUEZ CNP\.br\Date and Time Signed: 03/19/20 14:27 [id number] NoteI Staff This visit was conducted via two-way, real-time interactive video communications from my office using [employer] due to the restrictions of the COVID-19 pandemic. No physical exam was conducted other than those areas of the body visible to telecommunications with the patient located at [address] [place] [phone], with no one else in attendance. If [...] Ordered: TELEHEALTH Office Visit Level 3 Est 00323 General Treatment Plan Maintain medication regimen _Improve [...] Employed, 03/18/2019 Home/Environment Sylvia (more content not included)...[facility] Center[facility] on above: Result Comment: Electronically Signed By: Carlota RODRIGUEZ CNP.mati\Date and Time Signed: 03/05/20 13:32 [id number] NoteI Staff This visit was conducted via two-way, real-time interactive video communications from my office using [employer] due to the restrictions of the COVID-19 pandemic. No physical exam was conducted other than those areas of the body visible to telecommunications with the patient located at [address] [place] [address], with no one else in attendance. If [...] anxiety, # 30 tab(s), Refills(s) 1, [id number], 161, cm, 12/23/19 10:18:00 EDT, Height/Length Dosing, 82, kg, 12/23/19 10:18:00 EDT, Weight Dosing alprazolam, 0.5 mg = 1 tab(s), Oral, TID, PRN for anxiety, # 30 tab(s), Refills(s) 1, Pharmacy: [facility]/pharmacy #[id number], 161, cm, 12/23/19 10:18:00 EDT, Height/Length Dosing, 82, kg, 12/23/19 10:18:00 EDT, Weight Dosing aripiprazole, See Instructions, 1.5 tab po qAM, # 30 tab(s), Refills(s) 2, Pharmacy: [facility]/pharmacy #[id number], 161, cm, 12/23/19 10:18:00 EDT, Height/Length Dosing, 82, kg, 12/23/19 10:18:00 EDT, Weight Dosing aripiprazole, See Instructions, 1 tab po qAM, # 30 tab(s), Refills(s) 5, Pharmacy: [facility]/pharmacy #[id number], 161, cm, 12/23/19 10:18:00 EDT, Height/Length Dosing, 82, kg, 12/23/19 10:18:00 EDT, Weight Dosing cyclobenzaprine, 10 mg = 1 tab(s), Oral, TID, PRN for spasm, # 30 tab(s), Refills(s) 1, Pharmacy: [facility]/pharmacy #[id number], 161, cm, 06/13/19 14:39:00 EST, Height/Length Measured, 82, kg, 06/13/19 14:39:00EST, Weight Measured cyclobenzaprine, 10 mg = 1 tab(s), Oral, TID, PRN for spasm, # 30 tab(s), Refills(s) 1, Pharmacy: [facility]/pharmacy #[id number], 161, cm, 12/23/19 10:18:00 EDT, Height/Length Dosing, 82, kg, 12/23/19 10:18:00 EDT, Weight Dosing General Treatment Plan Maintain medication regimen _Improve mood stability _Improve anxiety control _Improve social and interpersonal functioning Clinical Global Impression 62 Prognosis progressing Follow-up With When Contact Information Carlota RODRIGUEZ CNP In 4 weeks Additional Instructions: (more content not included)...[facility] CenterComment on above:Result Comment: Electronically Signed By: Carlota RODRIGUEZ CNP\.br\Date and Time Signed: 01/27/20 22:35 [id number] NoteI Staff This visit was conducted via two-way, real-time interactive video communications from my office using [employer] due to the restrictions of the COVID-19 pandemic. No physical exam was conducted other than those areas of the body visible to telecommunications with the patient located at [address] [place] [address], with no one else in attendance. If [...] Ordered: TELEHEALTH Office Visit Level 3 Est 88217 General Treatment Plan Maintain medication regimen _Improve [...] Use:. Never Smokeless Tob (more content not included)...[facility] CenterComment on above:Result Comment: Electronically Signed By: Carlota RODRIGUEZ CNP\.br\Date and Time Signed: 01/13/20 09:11 [id number] NoteI Staff This visit was conducted via two-way, real-time interactive video communications from my office using [employer] due to the restrictions of the COVID-19 pandemic. No physical exam was conducted other than those areas of the body visible to telecommunications with the patient located at [address] [place] [address], with no one else in attendance. If [...] 1, Pharmacy: [facility]/pharmacy #[id number], 161, cm, 12/23/19 10:18:00 EDT, Height/Length Dosing, 82, kg, 12/23/19 10:18:00 EDT, Weight Dosing alprazolam, 0.5 mg = 1 tab(s), Oral, TID, PRN for anxiety, # 30 tab(s), Refills(s) 1, [id number], 161, cm, 06/13/19 14:39:00 EST, Height/Length Measured, 82, kg, 06/13/19 14:39:00 EST, Weight Measured aripiprazole, See Instructions, 1 tab po qAM, # 30 tab(s), Refills(s) 0, [id number], 161, cm, 12/23/19 10:18:00 [...] Allergies Bactrim Social History (more content not included)...[facility] CenterComment on above:Result Comment: Electronically Signed By: Carlota RODRIGUEZ CNP\.mati\Date and Time Signed: 12/23/19 16:37 [id number] NoteI Staff This visit was conducted via two-way, real-time interactive video communications from my office using [employer] due to the restrictions of the COVID-19 pandemic. No physical exam was conducted other than those areas of the body visible to telecommunications with the patient located at [address] [place] [address], with no one else in attendance. If [...] q24hr, # 30 tab(s), Refills(s) 2, Pharmacy: [facility]/pharmacy #[id number],161, cm, 06/13/19 14:39:00 EST, Height/Length Measured, 82, kg, 06/13/19 14:39:00 EST, Weight Measured cyclobenzaprine, 10 mg = 1 tab(s), Oral, TID, PRN for spasm, # 30 tab(s), Refills(s) 1, Pharmacy: [facility]/pharmacy #[id number], 161, cm, 06/13/19 14:39:00 EST, Height/Length [...] Employment/School Employed, 03/18/2019 Home/Environment (more content not included)...[facility] CenterComment on above:Result Comment: Electronically Signed By: Carlota RODRIGUEZ CNP\.br\Date and Time Signed: 12/02/19 16:38 EDTChief complaint+Reason for visit Narrative* Chief Complaint Nausea, diarrhea, fe zhou Reason for Visit Contact with and (guillen spected) exposure to covid-19 Sore throat [facility] Work Phone: Evaluation note* Diagnosis Onset Date Resolution Status Contact with and (suspected) exposure to covid-19 noneactive Sore throat noneactive [facility] Work Phone: Evaluation note* Diagnosis 21 weeks gestation of - Primary Obesity affecting in second trimester, unspecified obesity type [facility] 21 weeks [facility] of - Primary Multigravida of advanced maternal age in second trimester Pyelonephritis affecting in second trimester Bipolar disease during in second trimester ([facility]) Obesity affecting in second trimester, unspecified obesity type BMI 39.0-39.9,adult History of section complicating Previous delivery, unspecified as to episode of care or not applicable Vapes nicotine containing substance Current rao with 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 Diagnosis 22 weeks gestation of Second trimester state, incidental Diabetes mellitus screening Screening for diabetes mellitus documented in [facility] encounter [facility]* Diagnosis 24 weeks gestation of Second trimester state, incidental Flank pain Abdominal pain, unspecified site Acute cystitis with hematuria documented in this encounter [facility]* Diagnosis 24 weeks gestation of Second trimester state, incidental Acute cystitis with hematuria [facility] Diagnosis Second trimester state, incidental 26 weeks gestation of Elevated glucose tolerance test Impaired glucose tolerance test Gestational diabetes mellitus (GDM), antepartum, gestational diabetes method of control unspecified [facility]* Diagnosis 28 weeks gestation of Third trimester state, incidental Flank pain Abdominal pain, unspecified site Acute cystitis with hematuria Urinary tract infection without hematuria, site unspecified [facility] Diagnosis Second trimester state, incidental [facility] Diagnosis Rash Rash and other nonspecific skin eruption Second trimester state, incidental [facility]* Diagnosis 18 weeks gestation of Well woman exam with routine gynecological exam Routine gynecological examination Screening, , for anatomic survey Encounter for anatomic survey Exposure to STD Vaginal discharge Leukorrhea, not specified as infective [facility] Diagnosis 33 weeks gestation of Third trimester state, incidental Elevated blood pressure complicating in third trimester, antepartum Gestational diabetes mellitus (GDM) in third trimester, gestational diabetes method of control unspecified Insulin controlled gestational diabetes mellitus (GDM) during , antepartum [facility] Narrative - Reported* Type Description Date Medical History Bipolar Surgical History appendectomy Surgical History x 3 Hospitalization History see above surgical histo ry [employer] Other InstructionsNot on filedocumented in this encounter [facility] SystemInstructions* Attachments The following attachments cannot be sent through Care Everywhere. * Preeclampsia (Lao) * Movement (Lao) [facility] Advance Directives No Advanced Directives Records [...] may need to be seen by an developer designer if you have other events like this without definite egg exposure. Summary Purpose Family History No Family History Records Found Relationship Condition Age at Onset Recorded Date/T alo father Diabetes mellitus Unknown Hypertension Unknown Additional Source Comments INFORMATION SOURCE (unrecogn ized section and content) DATE CREATED AUTHOR 10/30/2020 [facility] DATE CREATED AUTHOR AUTHOR'S ORGANIZ ATION 04/29/[address] [facility] DATE CREATED AUTHOR AUTHOR'S ORGANIZ ATION 03/16/2024 [facility] DATE CREATED AUTHOR AUTHOR'S ORGANIZ ATION 04/25/2024 [facility] DATE CREATED AUTHOR AUTHOR'S ORGANIZ ATION 05/14/2024 [facility] EPIC REASON FOR VISIT (unrecogniz ed section and content) Reason Comments AMA Reason Comments Routine Visit Reason Comments Follow up UTI Reason Comments Gynecologic Exam Reason Comments Routine Visit Pt present today for rash Care Teams (unrecognized sec tion and content) Team Status: Active Member Role Status Dates JAMAL HiltonC Primary Care Provider Active Team Status: Inactive Member Role Status Dates JAQUAN Hilton Primary Care Provider Active Start: August 18, 2023 End: August 18, 2023 Sanaz Lockwood APRN Attending Provider Active Start: August 18, 2023 End: August 18, 2023 Clinical Project Leader Relationship Specialty Start Date End Date No Pcp, [place] [address] PCP - General Family Medicine 03/12/19 Clinical Project Leader Relationship Specialty Start Date End Date No Pcp, [place] [address] PCP - General Family Medicine 03/12/19 Goals [...] BE BASED ON THE PRIMARY CLINICAL RECORDS. [employer] [facility]. provides no warranty or guarantee of the accuracy or completeness of information in this document.
[2024-05-15 22:09] VITALS: BP 132/58; PULSE 81
[2024-05-15 22:21] VITALS: O2SAT 97
[2024-05-16 00:07] VITALS: BP 113/63; PULSE 78
== END 2024-05-16 00:12 | disposition home or self-care (01) ==
PROVIDERS: Admitting Provider Obstetrics & Gynecology; PCP Nurse Practitioner Family; Visit Provider Obstetrics & Gynecology
DX: O16.3 Unspecified maternal hypertension, third trimester (principal); Z3A.34 34 weeks gestation of pregnancy
CPT/HCPCS: G0378; G0379

== ENCOUNTER 2024-05-17 00:21 | Outpatient (OUT) | payer BC, OTHER, SELFPAY ==
--- OUTSIDE RECORDS SUMMARY | 2024-05-17 00:25 | XMS_ITS | CCD ---
Author Organization [facility] Team Providers Care Presentation Manager Name Role Phone Kimberlyn Xie Primary [...] extract; 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: [egg] Drug Allergy 08-18-19 Vomiting [facility] (20 sources) Sulfamethoxazole; 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: [SULFAMETHOXAZOLE] Drug Allergy 08-18-19 [facility] (20 sources) Trimethoprim; 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: [TRIMETHOPRIM] Drug Allergy 08-18-19 24 [facility] (3 sources) Fish Containing Products; 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: [Fish Containing Products] Propensity to adverse reactions 08-18-19 Difficulty Breathing [facility] (1 source) Sulfamethoxazole / Trimethoprim Drug Allergy 02-04-20 13 [facility] (20 sources) Sulfamethoxazole / Trimethoprim Drug Allergy 11-24-19 24 hives, [facility] Other (20 sources) Egg-Derived Products Drug Allergy [...] (six) hours as needed for pain. Active [id number] 200 actuat albuterol 0.09 mg/actuat metered dose [...] oral tablet (1 source) alpha-Adrenergic Agonist, Uncompetitive C-dfbamw-I-aspartate Receptor Antagonist, Sigma-1 Agonist Start: 04-27-2023 take 4 tablets by mouth every twenty-four hours as needed Capmist DM 60-15-400 MG as needed Orally every 4-6 hours as needed, max 4 tablets in 24 hours for 5 days Mar, Active [id number] 0.3 ml EPINEPHrine 1 mg/ml auto-injector (2 [...] 18, 2023 12:00am take 1 capsule by [facility] every twenty-four hours in the [...] 03-09-2022 Episodic Other aftercare (1 source) Other skilled nursing (current) drug therapy; 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: [OTH DRAG OUT MAN CURRENT DRUG THERAPY] Onset: 12-30-2022 Episodic Other [...] UA Negative Negative - 4(70) +++ mg/dL [facility] Blood, UA Positive Negative - 50 Slick/mcL [facility] Comment on above: trace Clarity, UA Clear [facility] re Color, UA Yellow [facility] Glucose, UA Negative Negative - 1999(110) ++++ mg/dL [facility] Interpretation and review of laboratory results Abnormal [facility] Ketones, UA Negative Negative - 160(16) ++++ mg/dL [facility] Leukocytes, UA Negative Negative - 500+++ Mira/mcL [facility] Nitrite, UA Negative Negative - Positive [facility] pH, UA 6.5 5 - 9 [facility] e Protein, UA Negative Negative - 2000(20) ++++ mg/dL [facility] Spec Grav, UA 1.01 1 - 1.03 [facility] Urobilinogen, UA 0.2 0.2 - 12 mg/dL [facility] US OB FOLLOW UP TRANSABDOMIN [...] 2513 gm / 5 lbs, 8 oz (0639-7561 gm) [place] Normal: 2393 gm (5385-1004 gm) [place] Wt%: 65% for 34.1 wks [...] as of 03/21/2024: 32w3d [facility] UA (CLEAN/CATCH) TOOL PLANNER/CHUY RO IF IND.on 04-22-2024 BILIRUBIN URINE Negative [...] (U) No Growth 2 Days PERFORMED BY: [place] [address] PATHOLOGIST PUMP RUNNER SYD SHEFFIELD M.D. Normal [facility] Comment on above: Performed By: #### C UU #### [address] RECURRENT VAGINITIS (HTRX)on 04-06-2024 ATOPOBIUM VAGINAE [...] detected [facility] BRAD [facility] BR[facility] KRUSEI Not detected [facility] CHLAMYDIA TRACHOMATIS 0 [facility] CHLAMYDIA TRACHOMATIS Not detected N [facility] GARDNERELLA VAGINALIS 0 NOM S [facility] GARDNERELLA VAGINALIS Not detected N [facility] MEGASPHAERA (TYPES 1, 2) 0 [facility] MEGASPHAERA (TYPES 1, 2) Not detected [facility] MYCOPLASMA GENITALIUM 0 NOM S [facility] MYCOPLASMA GENITALIUM Not detected N [facility] NEISSERIA GONORRHOEAE 0 NOM [facility] NEISSERIA GONORRHOEAE Not detected N [facility] TRICHOMONAS VAGINALIS 0 NOM S [facility] TRICHOMONAS VAGINALIS Not detected N [facility] Urinalysis macro (dipstick) panel (U)on 04-03-2024 Bilirubin, UA Negative Negative - 4(70) +++ mg/dL [facility] Blood, UA Negative Negative - 50 Slick/mcL [facility] Clarity, UA Cloudy [facility] re Color, UA Yellow [facility] Glucose, UA 1+ Negative - 1999(110) ++++ mg/dL [facility] Comment on above: 100mg/dL Interpretation and review of laboratory results Abnormal [facility] Ketones, UA Negative Negative - 160(16) ++++ mg/dL [facility] Leukocytes, UA Trace Negative - 500+++ Mira/mcL [facility] Nitrite, UA Negative Negative - Positive [facility] pH, UA 6 5 - 9 [facility] Protein, UA Negative Negative - 1999(20) ++++ mg/dL [facility] Spec Grav, UA 1.01 1 - 1.03 [facility] Urobilinogen, UA 0.2 0.2 - 12 mg/dL [facility] ALL CBC WITH AUTO DIFFon BASOPHILS ABSOLUTE AUTO 0 [facility] Basophils/100 WBC (Bld) 0.1 % Low 0.2 - 2.0 % [facility] Eosinophils/100 WBC (Bld) 0.5 % Low 0.9 - 7.0 % [facility] Erythrocyte distribution width (RBC) [Ratio] 13.9 % 11.0 - 15.0 % [facility] Hematocrit (Bld) [Volume fraction] 35.2 % Low 36.0 - 48.0 % [facility] Hemoglobin (Bld) [Mass/Vol] 11.5 g/dL Low 12.0 - 16.0 g/dL [facility] IMMATURE GRANULOCYTES ABS AUTO 0.05 High [facility] Immature granulocytes/100 WBC (Bld) 0.6 % High 0.0 - 0.5 % [facility] Interpretation and review of laboratory results Abnormal [facility] LYMPHOCYTES ABSOLUTE AUTO 1.9 [facility] Lymphocytes/100 WBC (Bld) 22.9 % 20.5 - 60.0 % [facility] MCH (RBC) [Entitic mass] 30.5 pg 26.7 - 34.0 pg [facility] MCHC (RBC) [Mass/Vol] 32.7 g/dL 29.9 - 35.2 g/dL [facility] MCV (RBC) [Entitic vol] 93.4 fL 81.0 - 99.0 fL [facility] MONOCYTES ABSOLUTE AUTO 0.3 [facility] Monocytes/100 WBC (Bld) 3.3 % 1.7 - 12.0 % [facility] NEUTROPHILS ABSOLUTE AUTO 6.1 [facility] Neutrophils/100 WBC (Bld) 72.6 % 43.0 - 75.0 % [facility] Platelet mean volume (Bld) [Entitic vol] 10.5 fL 9.5 - 13.5 fL [facility] TBH EO # 0 [facility] PLT 347 [facility] TB RBC 3.77 Low [facility] TB WBC 8.4 [facility] Urinalysis macro (dipstick) panel (U)on 03-21-2024 Bilirubin, UA Negative Negative - 4(70) +++ mg/dL [facility] Blood, UA Negative Negative - 50 Slick/mcL [facility] Clarity, UA Cloudy [facility] re Color, UA Yellow [facility] Glucose, UA Positive Negative - 1999(110) ++++ mg/dL [facility] Comment on above: 500 mg Interpretation and review of laboratory results Abnormal [facility] Ketones, UA Negative Negative - 160(16) ++++ mg/dL [facility] Leukocytes, UA Negative Negative - 500+++ Mira/mcL [facility] Nitrite, UA Negative Negative - Positive [facility] pH, UA 6.5 5 - 9 [facility] Protein, UA Negative Negative - 1999(20) ++++ mg/dL [facility] Spec Grav, UA 1.025 1 - 1.03 [facility] Urobilinogen, UA 0.2 0.2 - 12 mg/dL [facility] Urinalysis macro (dipstick) panel (U)on 03-11-2024 Bilirubin, UA Negative Negative - 4(70) +++ mg/dL [facility] Blood, UA Positive Negative - 50 Slick/mcL [facility] Comment on above: large Clarity, UA Clear [facility] Color, UA [facility] Glucose, UA Negative Negative - 1999(110) ++++ mg/dL [facility] Interpretation and review of laboratory results Abnormal [facility] Ketones, UA Negative Negative - 160(16) ++++ mg/dL [facility] Leukocytes, UA Negative Negative - 500+++ Mira/mcL [facility] Nitrite, UA Negative Negative - Positive [facility] pH, UA 6 5 - 9 [facility] Protein, UA Negative Negative - 1999(20) ++++ mg/dL [facility] Spec Grav, UA 1.02 1 - 1.03 [facility] Urobilinogen, UA 0.2 0.2 - 12 mg/dL [facility] TBH UA (CLEAN/CATCH) TOOL PLANNER/CHUY RO IF IND.on 03-06-2024 BILIRUBIN URINE COLOR INTERFERENCE Abnormal NEGATIVE N [facility] BLOOD URINE COLOR INTERFERENCE Abnormal NEGATIVE [facility] Clarity (U) CLEAR CLEAR [facility] Color (U) DK. RED YELLOW [facility] GLUCOSE URINE UA COLOR INTERFERENCE Abnormal NEGAT CARMELITA mg/dL [facility] Interpretation and review of laboratory results Abnormal [facility] Ketones Ql (U) COLOR INTERFERENCE Abnormal NEGATIV E mg/dL [facility] Leukocyte esterase Test strip Ql (U) COLOR INTERFERENCE Abnormal NEGATIVE [facility] care NITRITE URINE COLOR INTERFERENCE Abnormal NEGATIVE [facility] PH URINE COLOR INTERFERENCE Abnormal 5.0 - 9.0 [facility] PROTEIN URINE COLOR INTERFERENCE Abnormal NEG/TRAC E mg/dL [facility] SPECIFIC GRAVITY URINE 1.020 1.005 - 1.025 [facility] URINE MICROSCOPIC INDICATED YES [facility] UROBILINOGEN URINE COLOR INTERFERENCE Abnormal 0.2 - 1.0 EU/dL [facility] Urinalysis macro (dipstick) panel [...] UA Positive Negative - 1999(20) ++++ mg/dL [facility] Comment on above: 100 Spec Grav, UA 1.02 1 - 1.03 [facility] Urobilinogen, UA 1.0 0.2 - 12 mg/dL [facility] Urinalysis macro (dipstick) panel (U)on 02-21-2024 Bilirubin, UA Negative Negative - 4(70) +++ mg/dL [facility] Blood, UA Negative Negative - 50 Slick/mcL [facility] Clarity, UA Clear [facility] Color, UA Yellow [facility] Glucose, UA Negative Negative - 1999(110) ++++ mg/dL [facility] Interpretation and review of laboratory results Abnormal [facility] Ketones, UA Negative Negative - 160(16) ++++ mg/dL [facility] Leukocytes, UA Trace Negative - 500+++ Mira/mcL [facility] Nitrite, UA Negative Negative - Positive [facility] pH, UA 5.5 5 - 9 [facility] Protein, UA Negative Negative - 1999(20) ++++ mg/dL [facility] Spec Grav, UA 1.01 1 - 1.03 [facility] Urobilinogen, UA 0.2 0.2 - 12 mg/dL [facility] CBC AND AUTO DIFFon 02-09-20 ABSOLUTE BASOPHIL 0.0 X10E9/L Normal 0.0-0.2 [facility] Comment on above: Performed By: #### 3 1620-1, CMP, CBCA #### [facility] ([id number]) [address], [address] [place] [address] ABSOLUTE NEUTROPHIL 5.4 X10E9/L Normal 1.5-6.6 [facility] Comment on above: Performed By: #### 3 2132-1, CMP, CBCA #### [facility] ([id number]) [address], [address] [place] [address] Basophils/100 WBC (Bld) 0.2 % Normal [facility] Comment on above: Performed By: #### 3 2132-1, CMP, CBCA #### [facility] ([id number]) [address], [address] [place] [address] Eosinophils (Bld) [#/Vol] 0.1 10*3/uL Normal 0.0-0.4 [facility] Comment on above: Performed By: #### 3 2132-1, CMP, CBCA #### [facility] ([id number]) [address], [address] [place] [address] Eosinophils/100 WBC (Bld) 0.9 % Normal [facility] Comment on above: Performed By: #### 3 2132-1, CMP, CBCA #### [facility] ([id number]) [address], [address] [place] [address] Erythrocyte distribution width (RBC) [Ratio] 14.3 % Normal 11.5-15.0 [facility] Comment on above: Performed By: #### 3 2132-1, CMP, CBCA #### [facility] ([id number]) [address], [address] [place] [address] Hematocrit (Bld) [Volume fraction] 30.3 % Low 35-47 [facility] Comment on above: Performed By: #### 3 2132-1, CMP, CBCA #### [facility] ([id number]) [address], [address] [place] [address] Hemoglobin (Bld) [Mass/Vol] 10.3 g/dL Low 11.7-15.5 [facility] Comment on above: Performed By: #### 3 2132-1, CMP, CBCA #### [facility] ([id number]) [address], [address] [place] [address] Lymphocytes (Bld) [#/Vol] 1.7 10*3/uL Normal 1.0-3.5 [facility] Comment on above: Performed By: #### 3 2132-1, CMP, CBCA #### [facility] ([id number]) [address], [facility] [address] [place] [address] Lymphocytes/100 WBC (Bld) 22.0 % Normal [facility] Comment on above: Performed By: #### 3 2132-1, CMP, CBCA #### [facility] ([id number]) [address], [address] [place] [address] MCH (RBC) [Entitic mass] 31.3 pg Normal 27-34 [facility] Comment on above: Performed By: #### 3 2132-1, CMP, CBCA #### [facility] ([id number]) [address], [address] [place] [address] MCHC (RBC) [Mass/Vol] 34.0 g/dL Normal 32-36 [facility] Comment on above: Performed By: #### 3 2132-1, CMP, CBCA #### [facility] ([id number]) [address], [facility] [address] [place] [address] MCV (RBC) [Entitic vol] 92 fL Normal 80-100 [facility] Comment on above: Performed By: #### 3 2132-1, CMP, CBCA #### [facility] ([id number]) [address], [address] [place], [place] [address] Monocytes (Bld) [#/Vol] 0.5 10*3/uL Normal 0-0.9 [facility] Comment on above: Performed By: #### 3 2132-1, CMP, CBCA #### [facility] ([id number]) [address], [address] [place], [place] [address] Monocytes/100 WBC (Bld) 7.0 % Normal [facility] Comment on above: Performed By: #### 3 2132-1, CMP, CBCA #### [facility] ([id number]) [address], [address] [place], [place] [address] Neutrophils/100 WBC (Bld) 69.9 % Normal [facility] Comment on above: Performed By: #### 3 2132-1, CMP, CBCA #### [facility] ([id number]) [address], [address] [place] [address] Platelet mean volume (Bld) [Entitic vol] 8.8 fL Normal 7-12 [facility] Comment on above: Performed By: #### 3 2132-1, CMP, CBCA #### [facility] ([id number]) [address], [address] [place] [address] Platelets (Bld) [#/Vol] 259 10*3/uL Normal 150-450 [facility] Comment on above: Performed By: #### 3 2132-1, CMP, CBCA #### [facility] ([id number]) [address], [address] [place] [address] RBC COUNT 3.29 X10E12/L Low 3.80-5.20 [facility] Comment on above: Performed By: #### 3 2132-, CMP, CBCA #### [facility] ([id number]) [address], [address] [place], [place] [address] WBC (Bld) [#/Vol] 7.7 10*3/uL Normal 4.0-11.0 [facility] Comment on above: Performed By: #### 3 2132-1, CMP, CBCA #### [facility] ([id number]) [address], [address] [place] [address] COMPREHENSIVE METABOLIC PANE Paco 02-09-2024 Albumin [Mass/Vol] 2.9 g/dL Low 3.2-5.3 [facility] Comment on above: Performed By: #### 3 2132-1, CMP, CBCA #### [facility] ([id number]) [address], [address] [place] [address] ALP [Catalytic activity/Vol] 118 U/L Normal 39-130 [facility] Comment on above: Performed By: #### 3 2132-1, CMP, CBCA #### [facility] ([id number]) [address], [address] [place] [address] ALT [Catalytic activity/Vol] 6 U/L Normal 0-31 [facility] Comment on above: Performed By: #### 3 2132-1, CMP, CBCA #### [facility] ([id number]) [address], [address] [place] [address] Anion gap [Moles/Vol] 10 mmol/L Normal 5-15 [facility] Comment on above: Performed By: #### 3 2132-1, CMP, CBCA #### [facility] ([id number]) [address], [address] [place] [address] AST [Catalytic activity/Vol] 9 U/L Normal 0-41 [facility] Comment on above: Performed By: #### 3 2132-1, CMP, CBCA #### [facility] ([id number]) [address], [address] [place] [address] Bilirubin [Mass/Vol] 0.4 mg/dL Normal 0.3-1.2 [facility] Comment on above: Performed By: #### 3 2132-1, CMP, CBCA #### [facility] ([id number]) [address], [address] [place] [address] Calcium [Mass/Vol] 8.5 mg/dL Normal 8.5-10.5 [facility] Comment on above: Performed By: #### 3 2132-1, CMP, CBCA #### [facility] ([id number]) [address], [address] [place], [place] [address] Chloride [Moles/Vol] 105 mmol/L Normal 98-109 [facility] Comment on above: Performed By: #### 3 2132-1, CMP, CBCA #### [facility] ([id number]) [address], [address] [place] [address] CO2 [Moles/Vol] 22 mmol/L Normal 22-32 [facility] Comment on above: Performed By: #### 3 2132-1, CMP, CBCA #### [facility] ([id number]) [address], [address] [place] [address] Creatinine [Mass/Vol] 0.45 mg/dL Normal 0.40-1.00 [facility] Comment on above: Result Comment: METH OD TRACEABLE TO IDMS STANDARD Performed By: #### 3 2132-1, CMP, CBCA #### [facility] ([id number]) [address], [address] [place] [address] eGFR (CKD-EPI) NON-RACE DEPENDENT >90 Normal >59 [facility] Comment on above: Result Comment: Reported eGFR is based on the CKD-EPI 2020 equation that does not use a race coefficient. Performed By: #### 3 2132-1, CMP, CBCA #### [facility] ([id number]) [address], [address] [place] [address] Glucose [Mass/Vol] 84 mg/dL Normal 65-99 [facility] Comment on above: Performed By: #### 3 2132-1, CMP, CBCA #### [facility] ([id number]) [address], [address] [place] [address] Potassium [Moles/Vol] 3.7 mmol/L Normal 3.5-5.0 [facility] Comment on above: Performed By: #### 3 2132-1, CMP, CBCA #### [facility] ([id number]) [address], [address] [place] [address] Protein [Mass/Vol] 6.0 g/dL Normal 6.0-8.0 [facility] Comment on above: Performed By: #### 3 2132-1, CMP, CBCA #### [facility] ([id number]) [address], [address] [place] [address] Sodium [Moles/Vol] 137 mmol/L Normal 134-146 [facility] Comment on above: Performed By: #### 3 2132-1, CMP, CBCA #### [facility] ([id number]) [address], [address] [place] [address] Urea nitrogen [Mass/Vol] 5 mg/dL Normal 5-23 [facility] Comment on above: Performed By: #### 3 2132-1, CMP, CBCA #### [facility] ([id number]) [address], [address] [place] [address] MAGNESIUMon 02-09-2024 Magnesium [Mass/Vol] 1.6 mg/dL Low 1.8-2.6 [facility] Comment on above: Performed By: #### 3 2132-1, CMP, CBCA #### [facility] ([id number]) [address], [address] [place] [address] PHOSPHORUSon 02-09-2024 Phosphate [Mass/Vol] 4.5 mg/dL Normal 2.4-4.9 [facility] Comment on above: Performed By: #### 3 2132-1, CMP, CBCA #### [facility] ([id number]) [address], [address] [place] [address] US RETROPERITONEAL LIMITEDon 02-09-2024 US RETROPERITONEAL LIMITED [...] Andrade MD on 02/09/2024 10:14 AM Normal [facility] BLOOD CULTUREon 02-08-2024 Bacteria identified Aer cx Nom (Bld) SPECIMEN NOTES SUBOPTIMAL VOLUME OF BLOOD COLLECTED, RESULTS MAY BE AFFECTED. CULTURE RESULTS NO GROWTH 5 DAYS Normal [facility] Comment on above: Performed By: #### 3 2132-1, CMP, CBCA #### [facility] ([id number]) [address], [address] [place] [address] Bacteria identified Aer cx Nom (Bld) SPECIMEN NOTES SUBOPTIMAL VOLUME OF BLOOD COLLECTED, RESULTS MAY BE AFFECTED. CULTURE RESULTS NO GROWTH 5 DAYS Normal [facility] Comment on above: Performed By: #### 1 7928-3 #### [facility] ([id number]) [address], [address] [place] [address] CBC AND AUTO DIFFon 10-10-20 24 ABSOLUTE BASOPHIL 0.0 X10E9/L Normal 0.0-0.2 [facility] Comment on above: Performed By: #### 3 2132-1, CMP, CBCA #### [facility] ([id number]) [address], [address] [place] [address] ABSOLUTE NEUTROPHIL 9.5 X10E9/L High 1.5-6.6 [facility] Comment on above: Performed By: #### 3 2132-1, CMP, CBCA #### [facility] ([id number]) [address], [address] [place] [address] Basophils/100 WBC (Bld) 0.0 % Normal [facility] Comment on above: Performed By: #### 3 2132-1, CMP, CBCA #### [facility] ([id number]) [address], [address] [place] [address] Eosinophils (Bld) [#/Vol] 0.0 10*3/uL Normal 0.0-0.4 [facility] Comment on above: Performed By: #### 3 2132-1, CMP, CBCA #### [facility] ([id number]) [address], [address] [place] [address] Eosinophils/100 WBC (Bld) 0.0 % Normal [facility] Comment on above: Performed By: #### 3 2132-1, CMP, CBCA #### [facility] ([id number]) [address], [address] [place] [address] Erythrocyte distribution width (RBC) [Ratio] 14.5 % Normal 11.5-15.0 [facility] Comment on above: Performed By: #### 3 2132-1, CMP, CBCA #### [facility] ([id number]) [address], [address] [place] [address] Hematocrit (Bld) [Volume fraction] 31.3 % Low 35-47 [facility] Comment on above: Performed By: #### 3 2132-1, CMP, CBCA #### [facility] ([id number]) [address], [address] [place] [address] Hemoglobin (Bld) [Mass/Vol] 10.6 g/dL Low 11.7-15.5 [facility] Comment on above: Performed By: #### 3 2132-1, CMP, CBCA #### [facility] ([id number]) [address], [facility] [address] [place] [address] Lymphocytes (Bld) [#/Vol] 1.1 10*3/uL Normal 1.0-3.5 [facility] Comment on above: Performed By: #### 3 2132-1, CMP, CBCA #### [facility] ([id number]) [address], [facility] [address] [place] [address] Lymphocytes/100 WBC (Bld) 9.4 % Normal [facility] Comment on above: Performed By: #### 3 2132-1, CMP, CBCA #### [facility] ([id number]) [address], [address] [place] [address] MCH (RBC) [Entitic mass] 30.8 pg Normal 27-34 [facility] Comment on above: Performed By: #### 3 2132-1, CMP, CBCA #### [facility] ([id number]) [address], [address] [place] [address] MCHC (RBC) [Mass/Vol] 33.9 g/dL Normal 32-36 [facility] Comment on above: Performed By: #### 3 2132-1, CMP, CBCA #### [facility] ([id number]) [address], [address] [place] [address] MCV (RBC) [Entitic vol] 91 fL Normal 80-100 [facility] Comment on above: Performed By: #### 3 2132-1, CMP, CBCA #### [facility] ([id number]) [address], [address] [place] [address] Monocytes (Bld) [#/Vol] 0.9 10*3/uL Normal 0-0.9 [facility] Comment on above: Performed By: #### 3 2132-1, CMP, CBCA #### [facility] ([id number]) [address], [address] [place] [address] Monocytes/100 WBC (Bld) 8.2 % Normal [facility] Comment on above: Performed By: #### 3 2132-1, CMP, CBCA #### [facility] ([id number]) [address], [address] [place] [address] Neutrophils/100 WBC (Bld) 82.4 % Normal [facility] Comment on above: Performed By: #### 3 2132-1, CMP, CBCA #### [facility] ([id number]) [address], [address] [place] [address] Platelet mean volume (Bld) [Entitic vol] 8.5 fL Normal 7-12 [facility] Comment on above: Performed By: #### 3 2132-1, CMP, CBCA #### [facility] ([id number]) [address], [address] [place] [address] Platelets (Bld) [#/Vol] 246 10*3/uL Normal 150-450 [facility] Comment on above: Performed By: #### 3 2132-1, CMP, CBCA #### [facility] ([id number]) [address], [address] [place] [address] RBC COUNT 3.44 X10E12/L Low 3.80-5.20 [facility] Comment on above: Performed By: #### 3 2132-1, CMP, CBCA #### [facility] ([id number]) [address], [address] [place] [address] WBC (Bld) [#/Vol] 11.5 10*3/uL High 4.0-11.0 [facility] Comment on above: Performed By: #### 3 2132-1, CMP, CBCA #### [facility] ([id number]) [address], [address] [place] [address] COMPREHENSIVE METABOLIC PANE Paco 02-08-2024 Albumin [Mass/Vol] 3.1 g/dL Low 3.2-5.3 [facility] Comment on above: Performed By: #### 3 2132-1, CMP, CBCA #### [facility] ([id number]) [address], [address] [place] [address] ALP [Catalytic activity/Vol] 100 U/L Normal 39-130 [facility] Comment on above: Performed By: #### 3 2132-1, CMP, CBCA #### [facility] ([id number]) [address], [address] [place] [address] ALT [Catalytic activity/Vol] 7 U/L Normal 0-31 [facility] Comment on above: Performed By: #### 3 2132-1, CMP, CBCA #### [facility] ([id number]) [address], [address] [place] [address] Anion gap [Moles/Vol] 12 mmol/L Normal 5-15 [facility] Comment on above: Performed By: #### 3 2132-1, CMP, CBCA #### [facility] ([id number]) [address], [address] [place] [address] AST [Catalytic activity/Vol] 8 U/L Normal 0-41 [facility] Comment on above: Performed By: #### 3 2132-1, CMP, CBCA #### [facility] ([id number]) [address], [address] [place], [place] [address] Bilirubin [Mass/Vol] 0.5 mg/dL Normal 0.3-1.2 [facility] Comment on above: Performed By: #### 3 2132-1, CMP, CBCA #### [facility] ([id number]) [address], [address] [place], [place] [address] Calcium [Mass/Vol] 8.3 mg/dL Low 8.5-10.5 [facility] Comment on above: Performed By: #### 3 2132-1, CMP, CBCA #### [facility] ([id number]) [address], [address] [place], [place] [address] Chloride [Moles/Vol] 104 mmol/L Normal 98-109 [facility] Comment on above: Performed By: #### 3 2132-1, CMP, CBCA #### [facility] ([id number]) [address], [address] [place], [place] [address] CO2 [Moles/Vol] 20 mmol/L Low 22-32 [facility] Comment on above: Performed By: #### 3 2132-1, CMP, CBCA #### [facility] ([id number]) [address], [address] [place], [place] [address] Creatinine [Mass/Vol] 0.53 mg/dL Normal 0.40-1.00 [facility] Comment on above: Result Comment: METH OD TRACEABLE TO IDMS STANDARD Performed By: #### 3 2132-1, CMP, CBCA #### [facility] ([id number]) [address], [address] [place], [place] [address] eGFR (CKD-EPI) NON-RACE DEPENDENT >90 Normal >59 [facility] Comment on above: Result Comment: Reported eGFR is based on the CKD-EPI 2020 equation that does not use a race coefficient. Performed By: #### 3 2133-1, CMP, CBCA #### [facility] ([id number]) [address], [address] [place] [address] Glucose [Mass/Vol] 115 mg/dL High 65-99 [facility] Comment on above: Performed By: #### 3 2132-1, CMP, CBCA #### [facility] ([id number]) [address], [address] [place] [address] Potassium [Moles/Vol] 3.6 mmol/L Normal 3.5-5.0 [facility] Comment on above: Performed By: #### 3 2132-1, CMP, CBCA #### [facility] ([id number]) [address], [address] [place] [address] Protein [Mass/Vol] 6.1 g/dL Normal 6.0-8.0 [facility] Comment on above: Performed By: #### 3 2132-1, CMP, CBCA #### [facility] ([id number]) [address], [address] [place] [address] Sodium [Moles/Vol] 136 mmol/L Normal 134-146 [facility] Comment on above: Performed By: #### 3 2132-1, CMP, CBCA #### [facility] ([id number]) [address], [address] [place] [address] Urea nitrogen [Mass/Vol] 3 mg/dL Low 5-23 [facility] Comment on above: Performed By: #### 3 2132-1, CMP, CBCA #### [facility] ([id number]) [address], [address] [place] [address] DRUG SCREEN, URINEon 02-07-2 024 AMPHETAMINE/METHAMP Negative Normal NEG [facility] Comment on above: Result Comment: AMPH /METH screening cut off = 1000 ng/mL Performed By: #### D GUILLEN #### [facility] ([id number]) [address], [address] [place] [address] BARBITURATES Negative Normal NEG [facility] Comment on above: Result Comment: Megan iturates screening cut off value = 200 ng/mL Performed By: #### D GUILLEN #### [facility] ([id number]) [address] [place] [address] BENZODIAZEPINES Negative Normal NEG [facility] Comment on above: Result Comment: Giorgio odiazepines screening cut off value = 200 ng/mL Performed By: #### D GUILLEN #### [facility] ([id number]) [address], [address] [place] [address] CANNABINOIDS Negative Normal NEG [facility] Comment on above: Result Comment: Elsie abinoids/THC screening cut off value = 50 ng/mL Performed By: #### D GUILLEN #### [facility] ([id number]) [address], [address] [place] [address] COCAINE METABOLITE Negative Normal NEG [facility] Comment on above: Result Comment: Coca ine screening cut off value = 300 ng/mL Performed By: #### D GUILLEN #### [facility] ([id number]) [address], [address] [place] [address] ECSTASY Negative Normal NEG [facility] Comment on above: Result Comment: Ecst asy screening cut off value = 500 ng/mL This report is intended for use in clinical monitoring or management of patients. Performed By: #### D GUILLEN #### [facility] ([id number]) [address], [address] [place] [address] METHADONE Negative Normal NEG [facility] Comment on above: Result Comment: Meth adone screening cut off value = 300 ng/mL. Performed By: #### D GUILLEN #### [facility] ([id number]) [address], [address] [place] [address] OPIATES Negative Normal NEG [facility] Comment on above: Result Comment: Opia joey screening cut off value = 300 ng/mL NOTE: This test is used for the detection of codeine, hydrocodone (>1000 ng/mL), morphine and hydromorphone (>900 ng/mL) in urine. Performed By: #### D GUILLEN #### [facility] ([id number]) [address], [address] [place] [address] OXYCODONE Negative Normal NEG [facility] Comment on above: Result Comment: Oxyc odone screening cut off value = 300 ng/mL NOTE: This test is used for the detection of oxycodone and oxymorphone in urine. Performed By: #### D GUILLEN #### [facility] ([id number]) [address], [address] [place] [address] PHENCYCLIDINE Negative Normal NEG [facility] Comment on above: Result Comment: Phen cyclidine screening cut off value = 25 ng/mL Performed By: #### D GUILLEN #### [facility] ([id number]) [address], [address] [place] [address] Glucose Glucometer (BldC) [M ass/Vol]on 02-08-2024 Glucose [Mass/Vol] 107 mg/dL High 65-99 [facility] Lactate (P melvin) [Moles/Vol]o n 02-08-2024 LACTATE W/REFLEX 1.0 mmol/L Normal 0.4-2.0 [facility] Comment on above: Result Comment: Result did not trigger repeat Lactate, re-order if needed. Performed By: #### 7 5241-0, 08836-7 #### [facility] ([id number]) [address], [address] [place] [address] LACTATE W/REFLEX 0.8 mmol/L Normal 0.4-2.0 [facility] Comment on above: Result Comment: Result did not trigger repeat Lactate, re-order if needed. Performed By: #### 3 2133-1, CMP, CBCA #### [facility] ([id number]) [address], [address] [place] [address] Procalcitonin IA [Mass/Vol]o n 02-08-2024 PROCALCITONIN 0.74 ng/mL High <0.05 [facility] Comment on above: Result Comment: NOTE <0.50 ng/mL - Low risk of severe sepsis and/or septic shock. <2.00 ng/mL - Recommend retesting within 6-24 hours. >2.00 ng/mL - High risk of sepsis and/or septic shock. Performed By: #### 7 5241-0, 46557-4 #### [facility] ([id number]) [address], [address] [place] [address] URINALYSISon 02-08-2024 Bilirubin Ql (U) Negative Normal NEG [facility] Comment on above: Performed By: #### U A #### [facility] ([id number]) [address], [address] [place] [address] BLOOD/HGB Small Abnormal NEG [facility] Comment on above: Performed By: #### U A #### [facility] ([id number]) [address] [address] [place] [address] Color (U) YELLOW Normal YELLOW [facility] Comment on above: Performed By: #### U A #### [facility] ([id number]) [address], [address] [place] [address] Glucose Ql (U) Negative Normal NEG [facility] Comment on above: Performed By: #### U A #### [facility] ([id number]) [address] [address] [place] [address] Ketones Ql (U) 20 mg/dL Abnormal NEG [facility] Comment on above: Performed By: #### U A #### [facility] ([id number]) [address], [address] [place] [address] Leukocyte esterase Test strip Ql (U) Negative Normal NEG [facility] Comment on above: Performed By: #### U A #### [facility] ([id number]) [address] [facility], [address] [place] [address] MUCOUS PRESENT Abnormal NONE [facility] Comment on above: Performed By: #### U A #### [facility] ([id number]) [address] [place] [address], [address] [place] [address] Nitrite Ql (U) Negative Normal NEG [facility] Comment on above: Performed By: #### U A #### [facility] ([id number]) [address] [place] [address], [address] [place] [address] pH (U) 8.0 [pH] Normal 5.0-8.5 [facility] Comment on above: Performed By: #### U A #### [facility] ([id number]) [address] [place] [address], [address] [place] [address] Protein Ql (U) Trace Abnormal NEG [facility] Comment on above: Performed By: #### U A #### [facility] ([id number]) [address] [place] [address], [address] [place] [address] R.B.CELLS 16 /hpf High 0-5 [facility] Comment on above: Performed By: #### U A #### [facility] ([id number]) [address] [place] [address], [address] [place] [address] Specific gravity (U) [Rel density] 1.012 Normal 1.003-1.035 [facility] Comment on above: Performed By: #### U A #### [facility] ([id number]) [facility] [address] [place] [address] SQUAMOUS EPITHELIUM 1 /hpf Normal 0-5 [facility] Comment on above: Performed By: #### U A #### [facility] ([id number]) [address] [place] [address] TRANSITIONAL EPITH <1 High 0 [facility] Comment on above: Performed By: #### U A #### [facility] ([id number]) [address], [address] [place] [address] TURBIDITY CLEAR Normal CLEAR [facility] Comment on above: Performed By: #### U A #### [facility] ([id number]) [address], [address] [place] [address] Urobilinogen Qn (U) 2 {Blanca'U}/dL High <1.1 [facility] Comment on above: Performed By: #### U A #### [facility] ([id number]) [address] [place] [address] W.B.CELLS 2 /hpf Normal 0-5 [facility] Comment on above: Performed By: #### U A #### [facility] ([id number]) [address] [place] [address] URINE CULTUREon 02-08-2024 Bacteria identified Cx Nom (U) CULTURE RESULTS NO GROWTH AT <1000 CFU/mL Normal [facility] Comment on above: Performed By: #### 3 3-1, CMP, CBCA #### [facility] ([id number]) [address], [address] [place] [address] XR CHEST 1 VWon 02-08-2024 XR CHEST [...] Rubi MD on 02/08/2024 9:35 AM Normal [facility] URETHRITIS/DISCHARGE PLUS VA GINITIS (HTRX)on [...] [facility] AFP VALUE 35.9 ng/mL . [facility] COMMENT: Comment . [facility] Comment on above: Nette Holley , Ph.D., [facility] Director References: Available Upon Request. Multiples Of Median Cutoffs For AFP Elevations Rao 2.5 Black 2.8 IDD 2.0 Twins 4.5 Abbreviation Definitions IDD - Insulin Dep Diabetes OSBR - Open Spina Bifida Risk For further inquiries contact [employer] at [phone]. This test was developed and its performance characteristics determined by [employer]. It has not been cleared or approved by the Food and Drug Administration. Performed at: - [facility] [address], [place] [id number] Physiognomist: Ashley Duggan [facility], Phone: [phone] GEST. AGE ON COLLECTION DATE 17.9 . weeks [facility] GESTAT. AGE BASED ON As provided . [facility] Comment on above: Recalculations are n ot recommended when gestational dating by LMP and ultrasound are within 10 days. INSULIN DEP DIABETES No . [facility] INTERPRETATION Comment . [facility] Comment on above: Interpretation: Scre en [...] Customer Services to discuss available options. The [employer] recommends amniocentesis be offered to women age 35 and older. [age] [facility] MULTIPLE GESTATION No . [facility] ealthcare OSBR RISK 1 [place] 9540 . [facility] RACE Other . [facility] RESULTS Report . [facility] TEST RESULTS: Negative . [facility] WEIGHT 225 . lbs [facility] PREGNANY N N ULTRASOUND [id number] [phone] N 1 Y 225 N N N N N White/ [facility] Urinalysis macro (dipstick) panel (U)on 01-24-2024 Bilirubin, UA Negative Negative - 4(70) +++ mg/dL [facility] Blood, UA Negative Negative - 50 Slick/mcL [facility] Clarity, UA Clear [facility] Color, UA Yellow [facility] Glucose, UA Negative Negative - 1999(110) ++++ mg/dL [facility] Interpretation and review of laboratory results Abnormal [facility] Ketones, UA Negative Negative - 160(16) ++++ mg/dL [facility] Leukocytes, UA Trace Negative - 500+++ Mira/mcL [facility] Nitrite, UA Negative Negative - Positive [facility] pH, UA 6.5 5 - 9 [facility] Protein, UA Negative Negative - 1999(20) ++++ mg/dL [facility] Spec Grav, UA 1.020 1 - 1.03 [facility] Urobilinogen, UA 1.0 0.2 - 12 mg/dL [facility] Urinalysis macro (dipstick) panel (U)on 01-03-2024 Bilirubin, UA Negative Negative - 4(70) +++ mg/dL [facility] Blood, UA Positive Negative - 50 Slick/mcL [facility] Comment on above: trace Clarity, UA Clear [facility] re Color, UA Yellow [facility] Glucose, UA Negative Negative - 1999(110) ++++ mg/dL [facility] Interpretation and review of laboratory results Abnormal [facility] Ketones, UA Negative Negative - 160(16) ++++ mg/dL [facility] Leukocytes, UA Positive Negative - 500+++ Mira/mcL [facility] Comment on above: small Nitrite, UA Negative Negative - Positive [facility] pH, UA 6.0 5 - 9 [facility] e Protein, UA Negative Negative - 1999(20) ++++ mg/dL [facility] Spec Grav, UA 1.020 1 - 1.03 [facility] Urobilinogen, UA 0.2 0.2 - 12 mg/dL [facility] Health[facility] No Panel InformationOrdered By: Sanaz Lockwood on 08-18-2023 Quick Strep (POC) [facility] COVID + FLU Quick Testingon 04-27-2023 SARS-CoV-2 (COVID-19) RNA J LUIS+probe Ql (Unsp spec) Negative [facility] Other COVID + FLU Quick Testing Negative [facility] Other Quick Strepon 04-27-2023 S. pyogenes Org specific cx Ql (Throat) Negative [facility] Other Quick Strep [facility] Other COVID/FLU/RSV RT-PCRon 05-10 SARS-CoV-2 (COVID-19) RNA J LUIS+probe Ql (Unsp spec) Negative [facility] Other COVID/FLU/RSV RT-PCR Positive [facility] Other COVID/FLU/RSV RT-PCR Negative [facility] Other CBC AUTO DIFFon 04-27-2022 BASO # 0.0 103/ul Normal 0.0-0.1 [facility] Comment on above: Performed By: #### C BC #### [facility] [address] [address] [address] Dee Humphrey Basophils/100 WBC (Bld) 0.2 % Normal 0.2-2.0 [facility] Comment on above: Performed By: #### C BC #### [facility] [address] [address] [address] Dee Humphrey EO # 0.1 103/ul Normal 0.0-0.7 [facility] Comment on above: Performed By: #### C BC #### [facility] [address] [place] [address] Dr. Dee Humphrey Eosinophils/100 WBC (Bld) 0.6 % Critically low 0.9-7.0 [facility] Comment on above: Performed By: #### C BC #### [facility] [address] [address] [address] Dee Humphrey Erythrocyte distribution width (RBC) [Ratio] 14.1 % Normal 11.0-15.0 [facility] Comment on above: Performed By: #### C BC #### [facility] [address] [place] [address] Dr. Dee Humphrey Hematocrit (Bld) [Volume fraction] 37.1 % Normal 36.0-48.0 [facility] Comment on above: Performed By: #### C BC #### [facility] [address] [address] [address] Dee Humphrey Hemoglobin (Bld) [Mass/Vol] 12.4 g/dL Normal 12.0-16.0 [facility] Comment on above: Performed By: #### C BC #### [facility] [address] [address] [address] Dee Humphrey IG # 0.06 10e3/ul Critically high 0.00-0.03 [facility] Comment on above: Performed By: #### C BC #### [facility] [address] [place] [address] Dr. Dee Humphrey IG % 0.5 % Normal 0.0-0.5 [facility] Comment on above: Performed By: #### C BC #### [facility] [address] [place] [address] Dr. Dee Humphrey LYMPH # 3.7 103/ul Normal 1.2-3.8 [facility] Comment on above: Performed By: #### C BC #### [facility] [address] [place] [address] Dr. Dee Humphrey Lymphocytes/100 WBC (Bld) 28.7 % Normal 20.5-60.0 [facility] Comment on above: Performed By: #### C BC #### [facility] [address] [place] [address] Dr. Dee Humphrey MANUAL DIFF REQ NO Normal [facility] Comment on above: Performed By: #### C BC #### [facility] [address] [place] [address] Dr. Dee Humphrey MCH (RBC) [Entitic mass] 30.2 pg Normal 26.7-34.0 [facility] Comment on above: Performed By: #### C BC #### [facility] [address] [place] [address] Dr. Dee Humphrey MCHC (RBC) [Mass/Vol] 33.4 g/dL Normal 29.9-35.2 [facility] Comment on above: Performed By: #### C BC #### [facility] [address] [place] [address] Dr. Dee Humphrey MCV (RBC) [Entitic vol] 90.5 fL Normal 81.0-99.0 [facility] Comment on above: Performed By: #### C BC #### [facility] [address] [place] [address] Dr. Dee Humphrey MONO # 0.7 103/ul Normal 0.3-0.8 [facility] Comment on above: Performed By: #### C BC #### [facility] [address] [address] [address] Dee Humphrey Monocytes/100 WBC (Bld) 5.0 % Normal 1.7-12.0 [facility] Comment on above: Performed By: #### C BC #### [facility] [address] [address] [address] Dee Humphrey NEUT # 8.5 103/ul Critically high 1.4-6.5 [facility] Comment on above: Performed By: #### C BC #### [facility] [address] [address] [address] Dee Humphrey Neutrophils/100 WBC (Bld) 65.0 % Normal 43.0-75.0 [facility] Comment on above: Performed By: #### C BC #### [facility] [address] [place] [address] Dr. Dee Humphrey Platelet mean volume (Bld) [Entitic vol] 9.6 fL Normal 9.5-13.5 [facility] Comment on above: Performed By: #### C BC #### [facility] [address] [place] [address] Dr. Dee Humphrey PLT 317 103/ul Normal 150-450 [facility] Comment on above: Performed By: #### C BC #### [facility] [address] [place] [address] Dr. Dee Humphrey RBC 4.10 106/ul Critically low 4.20-5.40 [facility] Comment on above: Performed By: #### C BC #### [facility] [address] [place] [address] Dr. Dee Humphrey WBC 13.1 103/ul Critically high 4.0-11.0 [facility] Comment on above: Performed By: #### C BC #### [facility] [address] [place] [address] ABD/PELVIS WO CONon [...] by: ROCIO CHAU Date: 2022-04-27 20:24 Normal [facility] ER URINE PROFILEon 2 Bilirubin Ql (U) Negative Normal NEGATIVE [facility] Comment on above: Performed By: #### P REGU, ERUR #### [facility] [address] [place] [address] Dr. Dee Humphrey Clarity (U) CLEAR Normal CLEAR [facility] Comment on above: Performed By: #### P REGU, ERUR #### [facility] [address] [place] [address] Dr. Dee Humphrey Color (U) YELLOW Normal YELLOW [facility] Comment on above: Performed By: #### P REGU, ERUR #### [facility] [facility] [address] [place] [address] Dr. Dee STANFORD A micrscopic examination will be performed if indicated. Normal [facility] Comment on above: Performed By: #### P REGU, ERUR #### [facility] [address] [place] [address] Dr. Dee Humphrey Glucose Ql (U) Negative Normal NEGATIVE [facility] Comment on above: Performed By: #### P REGU, ERUR #### [facility] [address] [address] [address] Dee Humphrey Hemoglobin Ql (U) Negative Normal NEGATIVE [facility] Comment on above: Performed By: #### P REGU, ERUR #### [facility] [address] [address] [address] Dee Humphrey Ketones Ql (U) Negative Normal NEGATIVE [facility] Comment on above: Performed By: #### P REGU, ERUR #### [facility] [address] [address] [address] Dee Humphrey LEUKOCYTES Negative Normal NEGATIVE [facility] Comment on above: Performed By: #### P REGU, ERUR #### [facility] [address] [place] [address] Dr. Dee Humphrey Nitrite Ql (U) Negative Normal NEGATIVE [facility] Comment on above: Performed By: #### P REGU, ERUR #### [facility] [address] [place] [address] Dr. Dee Humphrey pH (U) 5.5 [pH] Normal 5-9 [facility] Comment on above: Performed By: #### P REGU, ERUR #### [facility] [address] [place] [address] Dr. Dee Humphrey SPEC GRAVITY >=1.030 Abnormal 1.005-<=1.02 5 [facility] Comment on above: Performed By: #### P REGU, ERUR #### [facility] [address] [address] [address] Dee Humphrey UA PROTEIN Negative Normal NEGATIVE/ TRACE [facility] Comment on above: Performed By: #### P REGU, ERUR #### [facility] [address] [place] [address] Dr. Dee Humphrey UR MICRO IND NOT INDICATED Normal [facility] Comment on above: Performed By: #### P REGU, ERUR #### [facility] [address] [place] [address] Dr. Dee Humphrey Urobilinogen Qn (U) 0.2 {Blanca'U}/dL Normal 0.2 - 1. 0 [facility] Comment on above: Performed By: #### P REGU, ERUR #### [facility] [address] [place] [address] Dr. Dee Humphrey LIPASEon 04-27-2022 Lipase [Catalytic activity/Vol] 94.0 U/L Normal 73.0-393.0 [facility] Comment on above: Performed By: #### L IPA, CMP #### [facility] [address] [place] [address] Dr. Dee Humphrey URon 04-27-2022 , QUAL Negative Normal NEGATIVE [facility] Comment on above: Performed By: #### P REGU, ERUR #### [facility] [address] [place] [address] Dr. Dee Humphrey PROF 14(COMP METB)on 022 Albumin [Mass/Vol] 3.9 g/dL Normal 3.4-5.0 [facility] Comment on above: Performed By: #### L IPA, CMP #### [facility] [address] [place] [address] Dr. Dee Humphrey Albumin/Globulin [Mass ratio] 1.0 {ratio} Normal [facility] Comment on above: Performed By: #### L IPA, CMP #### [facility] [address] [place] [address] Dr. Dee Humphrey ALP [Catalytic activity/Vol] 87 U/L Normal 46-116 [facility] Comment on above: Performed By: #### L IPA, CMP #### [facility] [address] [place] [address] Dr. Dee Humphrey ALT [Catalytic activity/Vol] 31 U/L Normal 14-59 [facility] Comment on above: Performed By: #### L IPA, CMP #### [facility] [address] [place] [address] Dr. Dee Humphrey Anion gap [Moles/Vol] 10.8 mmol/L Normal [facility] Comment on above: Performed By: #### L IPA, CMP #### [facility] [address] [address] [address] Dee Humphrey AST [Catalytic activity/Vol] 17 U/L Normal 15-37 [facility] Comment on above: Performed By: #### L IPA, CMP #### [facility] [address] [address] [address] Dee Humphrey Bilirubin [Mass/Vol] 0.1 mg/dL Critically low 0.2-1.0 [facility] Comment on above: Performed By: #### L IPA, CMP #### [facility] [address] [address] [address] Dee Humphrey Calcium [Mass/Vol] 8.9 mg/dL Normal 8.5-10.1 [facility] Comment on above: Performed By: #### L IPA, CMP #### [facility] [address] [address] [address] Dee Humphrey Chloride [Moles/Vol] 103 mmol/L Normal 98-107 [facility] Comment on above: Performed By: #### L IPA, CMP #### [facility] [address] [address] [address] Dee Humphrey CO2 [Moles/Vol] 26.9 mmol/L Normal 21.0-32.0 [facility] Comment on above: Performed By: #### L IPA, CMP #### [facility] [address] [address] [address] Dee Humphrey Creatinine [Mass/Vol] 0.80 mg/dL Normal 0.55-1.02 [facility] Comment on above: Performed By: #### L IPA, CMP #### [facility] [address] [address] [address] Dee Humphrey EGFR-AF AUSTRALIAN >60 Normal >=60 [facility] Comment on above: Performed By: #### L IPA, CMP #### [facility] [address] [place] [address] Dr. Dee Humphrey EGFR-NON AF AUSTRALIAN >60 Normal >=60 [facility] Comment on above: Performed By: #### L IPA, CMP #### [facility] [address] [address] [address] Dee Humphrey Globulin (S) [Mass/Vol] 3.9 g/dL Normal [facility] Comment on above: Performed By: #### L IPA, CMP #### [facility] [address] [address] [address] Dee Humphrey Glucose [Mass/Vol] 96 mg/dL Normal 74-106 [facility] Comment on above: Performed By: #### L IPA, CMP #### [facility] [address] [address] [address] Dee Humphrey Potassium [Moles/Vol] 3.7 mmol/L Normal 3.5-5.1 [facility] Comment on above: Performed By: #### L IPA, CMP #### [facility] [address] [place] [address] Dr. Dee Humphrey Protein [Mass/Vol] 7.8 g/dL Normal 6.4-8.2 [facility] Comment on above: Performed By: #### L IPA, CMP #### [facility] [address] [place] [address] Dr. Dee Humphrey Sodium [Moles/Vol] 137 mmol/L Normal 136-145 [facility] Comment on above: Performed By: #### L IPA, CMP #### [facility] [address] [place] [address] Dr. Dee Humphrey Urea nitrogen [Mass/Vol] 13.0 mg/dL Normal 7.0-18.0 [facility] Comment on above: Performed By: #### L IPA, CMP #### [facility] [address] [place] [address] Dr. Dee Humphrey Urea nitrogen/Creatinine [Mass ratio] 16.2 mg/mg Normal [facility] Comment on above: Performed By: #### L IPA, CMP #### [facility] [address] [address] [address] Dee Humphrey CBC AUTO DIFFon 03-07-2022 BASO # 0.0 103/ul Normal 0.0-0.1 [facility] Comment on above: Performed By: #### C BC #### [facility] [address] [address] [address] Dee Humphrey Basophils/100 WBC (Bld) 0.3 % Normal 0.2-2.0 [facility] Comment on above: Performed By: #### C BC #### [facility] [address] [address] [address] Dee Humphrey EO # 0.1 103/ul Normal 0.0-0.7 [facility] Comment on above: Performed By: #### C BC #### [facility] [address] [address] [address] Dee Humphrey Eosinophils/100 WBC (Bld) 0.7 % Critically low 0.9-7.0 [facility] Comment on above: Performed By: #### C BC #### [facility] [address] [place] [address] Dr. Dee Humphrey Erythrocyte distribution width (RBC) [Ratio] 13.0 % Normal 11.0-15.0 [facility] Comment on above: Performed By: #### C BC #### [facility] [address] [place] [address] Dr. Dee Humphrey Hematocrit (Bld) [Volume fraction] 39.2 % Normal 36.0-48.0 [facility] Comment on above: Performed By: #### C BC #### [facility] [address] [place] [address] Dr. Dee Humphrey Hemoglobin (Bld) [Mass/Vol] 13.2 g/dL Normal 12.0-16.0 [facility] Comment on above: Performed By: #### C BC #### [facility] [address] [address] [address] Dee Humphrey IG # 0.05 10e3/ul Critically high 0.00-0.03 [facility] Comment on above: Performed By: #### C BC #### [facility] [address] [address] [address] Dee Humphrey IG % 0.5 % Normal 0.0-0.5 [facility] Comment on above: Performed By: #### C BC #### [facility] [address] [place] [address] Dr. Dee Humphrey LYMPH # 4.2 103/ul Critically high 1.2-3.8 [facility] Comment on above: Performed By: #### C BC #### [facility] [address] [place] [address] Dr. Dee Humphrey Lymphocytes/100 WBC (Bld) 43.1 % Normal 20.5-60.0 [facility] Comment on above: Performed By: #### C BC #### [facility] [address] [place] [address] Dr. Dee Humphrey MANUAL DIFF REQ NO Normal [facility] Comment on above: Performed By: #### C BC #### [facility] [address] [place] [address] Dr. Dee Humphrey MCH (RBC) [Entitic mass] 30.5 pg Normal 26.7-34.0 [facility] Comment on above: Performed By: #### C BC #### [facility] [address] [place] [address] Dr. Dee Humphrey MCHC (RBC) [Mass/Vol] 33.7 g/dL Normal 29.9-35.2 [facility] Comment on above: Performed By: #### C BC #### [facility] [address] [place] [address] Dr. Dee Humphrey MCV (RBC) [Entitic vol] 90.5 fL Normal 81.0-99.0 [facility] Comment on above: Performed By: #### C BC #### [facility] [address] [place] [address] Dr. Dee Humphrey MONO # 0.4 103/ul Normal 0.3-0.8 [facility] Comment on above: Performed By: #### C BC #### [facility] [address] [place] [address] Dr. Dee Humphrey Monocytes/100 WBC (Bld) 4.4 % Normal 1.7-12.0 [facility] Comment on above: Performed By: #### C BC #### [facility] [address] [place] [address] Dr. Dee Humphrey NEUT # 4.9 103/ul Normal 1.4-6.5 [facility] Comment on above: Performed By: #### C BC #### [facility] [address] [place] [address] Dr. Dee Humphrey Neutrophils/100 WBC (Bld) 51.0 % Normal 43.0-75.0 [facility] Comment on above: Performed By: #### C BC #### [facility] [address] [place] [address] Dr. Dee Humphrey Platelet mean volume (Bld) [Entitic vol] 9.6 fL Normal 9.5-13.5 [facility] Comment on above: Performed By: #### C BC #### [facility] [address] [place] [address] Dr. Dee Humphrey PLT 364 103/ul Normal 150-450 [facility] Comment on above: Performed By: #### C BC #### [facility] [address] [place] [address] Dr. Dee Humphrey RBC 4.33 106/ul Normal 4.20-5.40 [facility] Comment on above: Performed By: #### C BC #### [facility] [address] [place] [address] Dr. Dee Humphrey WBC 9.7 103/ul Normal 4.0-11.0 [facility] Comment on above: Performed By: #### C BC #### [facility] [address] [place] [address] Dr. Dee Humphrey LACTATE/LACTIC ACIDon 2021 Lactate [Moles/Vol] 1.1 mmol/L Normal 0.4-1.9 [facility] Comment on above: Performed By: #### P LORETTA AUGUSTINR #### [facility] [address] [place] [address] Dr. Dee Humphrey LIPASEon 03-07-2022 Lipase [Catalytic activity/Vol] 79.0 U/L Normal 73.0-393.0 [facility] Comment on above: Performed By: #### C MP, LIPA #### [facility] [address] [address] [address] Dee Humphrey PROF 14(COMP METB)on 022 Albumin [Mass/Vol] 3.8 g/dL Normal 3.4-5.0 [facility] Comment on above: Performed By: #### C MP, LIPA #### [facility] [address] [place] [address] Dr. Dee Humphrey Albumin/Globulin [Mass ratio] 0.9 {ratio} Normal [facility] Comment on above: Performed By: #### C MP, LIPA #### [facility] [address] [place] [address] Dr. Dee Humphrey ALP [Catalytic activity/Vol] 80 U/L Normal 46-116 [facility] Comment on above: Performed By: #### C MP, LIPA #### [facility] [address] [place] [address] Dr. Dee Humphrey ALT [Catalytic activity/Vol] 27 U/L Normal 14-59 [facility] Comment on above: Performed By: #### C MP, LIPA #### [facility] [address] [place] [address] Dr. Dee Humphrey Anion gap [Moles/Vol] 9.5 mmol/L Normal [facility] Comment on above: Performed By: #### C MP, LIPA #### [facility] [address] [place] [address] Dr. Dee Humphrey AST [Catalytic activity/Vol] 13 U/L Critically low 15-37 [facility] Comment on above: Performed By: #### C MP, LIPA #### [facility] [address] [place] [address] Dr. Dee Humphrey Bilirubin [Mass/Vol] 0.1 mg/dL Critically low 0.2-1.0 [facility] Comment on above: Performed By: #### C MP, LIPA #### [facility] [address] [place] [address] Dr. Dee Humphrey Calcium [Mass/Vol] 9.0 mg/dL Normal 8.5-10.1 [facility] Comment on above: Performed By: #### C MP, LIPA #### [facility] [address] [place] [address] Dr. Dee Humphrey Chloride [Moles/Vol] 103 mmol/L Normal 98-107 [facility] Comment on above: Performed By: #### C MP, LIPA #### [facility] [address] [place] [address] Dr. Dee Humphrey CO2 [Moles/Vol] 27.1 mmol/L Normal 21.0-32.0 [facility] Comment on above: Performed By: #### C MP, LIPA #### [facility] [address] [place] [address] Dr. Dee Humphrey Creatinine [Mass/Vol] 0.86 mg/dL Normal 0.55-1.02 [facility] Comment on above: Performed By: #### C MP, LIPA #### [facility] [address] [place] [address] Dr. Dee Humphrey EGFR-AF AUSTRALIAN >60 Normal >=60 [facility] Comment on above: Performed By: #### C MP, LIPA #### [facility] [address] [place] [address] Dr. Dee Humphrey EGFR-NON AF AUSTRALIAN >60 Normal >=60 [facility] Comment on above: Performed By: #### C MP, LIPA #### [facility] [address] [place] [address] Dr. Dee Humphrey Globulin (S) [Mass/Vol] 4.1 g/dL Normal [facility] Comment on above: Performed By: #### C MP, LIPA #### [facility] [address] [place] [address] Dr. Dee Humphrey Glucose [Mass/Vol] 99 mg/dL Normal 74-106 [facility] Comment on above: Performed By: #### C MP, LIPA #### [facility] [address] [place] [address] Dr. Dee Humphrey Potassium [Moles/Vol] 3.6 mmol/L Normal 3.5-5.1 [facility] Comment on above: Performed By: #### C MP, LIPA #### [facility] [address] [place] [address] Dr. Dee Humphrey Protein [Mass/Vol] 7.9 g/dL Normal 6.4-8.2 [facility] Comment on above: Performed By: #### C MP, LIPA #### [facility] [address] [address] [address] Dee Humphrey Sodium [Moles/Vol] 136 mmol/L Normal 136-145 [facility] Comment on above: Performed By: #### C MP, LIPA #### [facility] [address] [place] [address] Dr. Dee Humphrey Urea nitrogen [Mass/Vol] 12.0 mg/dL Normal 7.0-18.0 [facility] Comment on above: Performed By: #### C MP, LIPA #### [facility] [address] [place] [address] Dr. Dee Humphrey Urea nitrogen/Creatinine [Mass ratio] 14.0 mg/mg Normal [facility] Comment on above: Performed By: #### C MP, LIPA #### [facility] [address] [place] [address] Dr. Dee Humphrey Consent for COVID Vaccineon 08-09-2020 SARS-CoV-2 (COVID-19) RNA J LUIS+probe Ql (Unsp spec) [id number]:127 Normal [facility] Consent for Treatmenton 07-30 Consent for Treatment [id number]:127 Normal [facility] Coding Summary.on 08-07-2020 Coding Summary. CODING DATE: 08/07/2020 FINAL [facility] STATUS: PAYOR: Luzma APC DESCRIPTION [id number] [...] Yana Paredes Date Saved: 08/07/2020 02:46 pm [facility] Ambulatory Clinical Summaryo n 03-25-2020 Ambulatory Clinical Summary {[id number] [facility] Patient Educationon 03-19-20 Patient Education lurasidone (ilene [...] ? an antiviral such as ritonavir; ? [place]'s wort; or ? seizure medicine such as [...] irritable, agitate (more content not included)... Normal [facility] Video Visit - Telehealtho n 02-23-2020 [...] interactive video communications from my office using [employer] due to the restrictions of the COVID-19 pandemic. No physical exam was conducted other than those areas of the body visible to telecommunications with the patient located at [address] [place] [address], with no one else in attendance. If [...] Stopped age (more content not included)... Normal [facility] Comment on above: Result Comment: Elec tronically Signed By: Deepa [facility], Maia Ashley\.br\Date and Time Signed: 02/22/20 [...] interactive video communications from my office using [employer] due to the restrictions of the COVID-19 pandemic. No physical exam was conducted other than those areas of the body visible to telecommunications with the patient located at [address] [place] [phone], with no one else in attendance. If [...] Sister. Depres (more content not included)... Normal [facility] Comment on above: Result Comment: [...] to telecommunications with the patient located at [address] [place] [phone], with no one else in attendance. If [...] - Denies (more content not included)... Normal [facility] Comment on above: Result Comment: [...] interactive video communications from my office using [employer] due to the restrictions of the COVID-19 pandemic. No physical exam was conducted other than those areas of the body visible to telecommunications with the patient located at [address] [place] [phone], with no one else in attendance. If [...] Tobacco F (more content not included)... Normal [facility] Comment on above: Result Comment: Elec tronically Signed By: Deepa [facility]ENTERMaia Valle.[email or web address]\Date and Time Signed: 01/29/20 21:44 EDT [...] interactive video communications from my office using [employer] due to the restrictions of the COVID-19 pandemic. No physical exam was conducted other than those areas of the body visible to telecommunications with the patient located at [address] [place] [phone], with no one else in attendance. If [...] No. Yes, (more content not included)... Normal [facility] Comment on above: Result Comment: Elec tronically Signed By: Deepa [facility], Maia K\.br\Date and Time Signed: 01/29/20 [...] include drow (more content not included)... Normal [facility] Video Visit - Telehealtho n 01-13-2020 [...] interactive video communications from my office using [employer] due to the restrictions of the COVID-19 pandemic. No physical exam was conducted other than those areas of the body visible to telecommunications with the patient located at [address] [place] [address], with no one else in attendance. If [...] Tobacco For (more content not included)... Normal [facility] Comment on above: Result Comment: [...] include drow (more content not included)... Normal [facility] Video Visit - Telehealtho n 01-07-2020 [...] interactive video communications from my office using [employer] due to the restrictions of the COVID-19 pandemic. No physical exam was conducted other than those areas of the body visible to telecommunications with the patient located at [address] [place] [address], with no one else in attendance. If [...] Use:. N (more content not included)... Normal [facility] Comment on above: Result Comment: [...] interactive video communications from my office using [employer] due to the restrictions of the COVID-19 pandemic. No physical exam was conducted other than those areas of the body visible to telecommunications with the patient located at [address] [place] [address] [phone], with no one else in attendance. If [...] Alcoholism: Father and (more content not included)... [facility] Comment on above: Result Comment: Elec tronically Signed By: Deepa [facility]ITALMaia.[email or web address]\Date and Time Signed: 12/30/19 13:50 [...] interactive video communications from my office using [employer] due to the restrictions of the COVID-19 pandemic. No physical exam was conducted other than those areas of the body visible to telecommunications with the patient located at [address] [place] [phone], with no one else in attendance. If [...] Alcohol U (more content not included)... Normal [facility] Comment on above: Result Comment: Elec tronically Signed By: Deepa [facility], Maia Ashley\.mati\Date and Time Signed: [...] include drow (more content not included)... Normal [facility] Video Visit - Telehealtho n 12-04-2019 [...] interactive video communications from my office using [employer] due to the restrictions of the COVID-19 pandemic. No physical exam was conducted other than those areas of the body visible to telecommunications with the patient located at [address] [place] [address], with no one else in attendance. If [...] Daily, 5 (more content not included)... Normal [facility] Comment on above: Result Comment: Elec tronically Signed By: Deepa [facility]ITALMa[facility].[email or web address]\Date and Time Signed: 12/04/19 09:42 EDT [...] rate, h (more content not included)... Normal [facility] Vital Signs Date Time Vital Sign Value Performing Clinician Facility 05-13-2024 15:04-0500 Body mass index (BMI) [Ratio] 41.67 kg/m2 Liza ANTONIO Work Phone: [facility] 05-13-2024 15:04-0500 Body weight 103.33 kg Liza ANTONIO Work Phone: [facility] 05-13-2024 15:04-0500 Diastolic blood pressure 82 mm[Hg] Liza ANTONIO Work Phone: [facility] 05-13-2024 15:04-0500 Systolic blood pressure 140 mm[Hg] Liza ANTONIO Work Phone: [facility] 04-03-2024 13:59-0500 Body mass index (BMI) [Ratio] 42.07 kg/m2 Johnathan Jorje DO Work Phone: [facility] 04-03-2024 13:59-0500 Body weight 104.33 kg Johnathan Jorje DO Work Phone: [facility] 04-03-2024 13:59-0500 Diastolic blood pressure 78 mm[Hg] Johnathan Jorje DO Work Phone: [facility] 04-03-2024 13:59-0500 Systolic blood pressure 110 mm[Hg] Johnathan Jorje DO Work Phone: [facility] 03-21-2024 14:01-0500 Body mass index (BMI) [Ratio] 41.7 kg/m2 Liza ANTONIO Work Phone: [facility] 03-21-2024 14:01-0500 Body weight 103.42 kg Liza Nashville PA Work Phone: [facility] 03-21-2024 14:01-0500 Diastolic blood pressure 72 mm[Hg] Liza Nashville PA Work Phone: [facility] 03-21-2024 14:01-0500 Systolic blood pressure 112 mm[Hg] Liza Nashville PA Work Phone: [facility] 03-11-2024 14:26-0500 Body mass index (BMI) [Ratio] 41.96 kg/m2 Liza Kt PA Work Phone: [facility] 03-11-2024 14:26-0500 Body weight 104.06 kg Liza Kt PA Work Phone: [facility] 03-11-2024 14:26-0500 Diastolic blood pressure 70 mm[Hg] Liza Nashville PA Work Phone: [facility] 03-11-2024 14:26-0500 Systolic blood pressure 120 mm[Hg] Liza Kt PA Work Phone: [facility] 03-06-2024 11:20-0500 Body mass index (BMI) [Ratio] 41.34 kg/m2 Johnathan Jorje DO Work Phone: [facility] 03-06-2024 11:20-0500 Body weight 102.51 kg Johnathan Jorje DO Work Phone: [facility] 03-06-2024 11:20-0500 Diastolic blood pressure 68 mm[Hg] Johnathan Jorje DO Work Phone: [facility] 03-06-2024 11:20-0500 Systolic blood pressure 120 mm[Hg] Johnathan Jorje DO Work Phone: [facility] 02-21-2024 13:57-0400 Body mass index (BMI) [Ratio] 41.3 kg/m2 Johnathan Jorje DO Work Phone: [facility] 02-21-2024 13:57-0400 Body weight 102.42 kg Johnathan Jorje DO Work Phone: [facility] 02-21-2024 13:57-0400 Diastolic blood pressure 70 mm[Hg] Johnathan Jorje DO Work Phone: [facility] 02-21-2024 13:57-0400 Systolic blood pressure 100 mm[Hg] Johnathan Jorje DO Work Phone: [facility] 02-15-2024 13:03-0400 Body height 160 cm Malena Cardona MD Work Phone: [facility] 02-15-2024 13:03-0400 Body mass index (BMI) [Ratio] 39.65 kg/m2 Malena Cardona MD Work Phone: [facility] 02-15-2024 13:03-0400 Body weight 101.52 kg Malena Cardona MD Work Phone: [facility] 02-15-2024 13:03-0400 Diastolic blood pressure 74 mm[Hg] Malena Cardona MD Work Phone: [facility] 02-15-2024 13:03-0400 Heart rate 94 /min Malena Cardona MD Work Phone: [facility] 02-15-2024 13:03-0400 Systolic blood pressure 123 mm[Hg] Malena Cardona MD Work Phone: [facility] 01-24-2024 11:57-0400 Body mass index (BMI) [Ratio] 41.15 kg/m2 Johnathan Jorje DO Work Phone: [facility] 01-24-2024 11:57-0400 Body weight 102.06 kg Johnathan Jorje DO Work Phone: [facility] 01-24-2024 11:57-0400 Diastolic blood pressure 78 mm[Hg] Johnathan Jorje DO Work Phone: [facility] 01-24-2024 11:57-0400 Systolic blood pressure 124 mm[Hg] Johnathan Jorje DO Work Phone: [facility] 01-03-2024 15:02-0400 Body mass index (BMI) [Ratio] 42.07 kg/m2 Liza Duque PA Work Phone: [facility] 01-03-2024 15:02-0400 Body weight 104.33 kg Liza Kt PA Work Phone: [facility] 01-03-2024 15:02-0400 Diastolic blood pressure 74 mm[Hg] Liza [place] PA Work Phone: [facility] 01-03-2024 15:02-0400 Systolic blood pressure 122 mm[Hg] Liza Corderoey PA Work Phone: [facility] 12-25-2023 11:22-0400 Body mass index (BMI) [Ratio] 40.79 kg/m2 Johnathan Jorje DO Work Phone: [facility] 12-25-2023 11:22-0400 Body weight 101.15 kg Johnathan Jorje DO Work Phone: [facility] 12-25-2023 11:22-0400 Diastolic blood pressure 76 mm[Hg] Johnathan Jorje DO Work Phone: [facility] 12-25-2023 11:22-0400 Systolic blood pressure 122 mm[Hg] Johnathan Jorje DO Work Phone: [facility] 08-18-2023 14:24-0400 Body height 160.02 cm [facility] 08-18-2023 14:24-0400 Body mass index (BMI) [Ratio] 40.2 kg/m2 [facility] 08-18-2023 14:24-0400 Body temperature 98.4 [degF] [facility] 08-18-2023 14:24-0400 Body weight 103.02 kg [facility] 08-18-2023 14:24-0400 Diastolic blood pressure 81 mm[Hg] [facility] 08-18-2023 14:24-0400 Heart rate 101 /min [facility] 08-18-2023 14:24-0400 Respiratory rate 16 /min [facility] 08-18-2023 14:24-0400 SaO2% (BldA) [Mass fraction] 98 % [facility] 08-18-2023 14:24-0400 Systolic blood pressure 133 mm[Hg] [facility] 04-27-2023 16:30-0500 Body height 160.02 cm Sanaz Lockwood Other [facility] [employer] Other 04-27-2023 16:30-0500 Body mass index (BMI) [Ratio] 40.92 kg/m2 Sanaz Lockwood Other [facility] Other 04-27-2023 16:30-0500 Body temperature 98.2 [degF] Sanaz Lockwood Other [employer] Other 04-27-2023 16:30-0500 Body weight 104.78 kg Sanaz Lockwood Other [employer] Other 04-27-2023 16:30-0500 Respiratory rate 18 /min Sanaz Lockwood Other [facility] Other 04-27-2023 16:30-0500 SaO2% (BldA) [Mass fraction] 99 % Sanaz Lockwood Other [employer] Other 05-10-2022 14:45-0500 Body height 160.02 cm Kaylah Han Other [employer] Other 05-10-2022 14:45-0500 Body mass index (BMI) [Ratio] 38.97 kg/m2 Kaylah Han Other [facility] Other 05-10-2022 14:45-0500 Body temperature 99.3 [degF] Kaylah Han Other [facility] Other 05-10-2022 14:45-0500 Body weight 99.79 kg Kaylah Han Other [employer] Other 06-29-2019 22:40-0500 Pulse (Heart Rate) 84 /min [facility] 06-29-2019 22:40-0500 Pulse Oximetry 97 % [facility] 06-29-2019 22:35-0500 BP Diastolic 56 mm[Hg] [facility] 06-29-2019 22:35-0500 BP Systolic 100 mm[Hg] [facility] 06-29-2019 21:11-0500 BMI (Body Mass Index) 33.1 kg/m2 [facility] 06-29-2019 21:11-0500 Body Temperature 97.8 [degF] [facility] 06-29-2019 21:11-0500 Body weight 84.8 kg [facility] 06-29-2019 21:11-0500 Height 160.02 cm [facility] 06-29-2019 21:11-0500 Respiratory Rate 20 /min [facility] Encounters Encounter Date Encounter [...] Start: 04-22-2024 End: 04-22-2024 ambulatory Johnathan Jorje Facility:[facility] Start: 04-03-2024 End: 04-03-2024 Bamboo flowsheet Johnathan [...] Result Encounter Johnathan Jorje DO Work Phone: [facility] External Department Unsolicited Start: 03-21-2024 End: 03-21-2024 ambulatory LIZA DUQUE Not Available Start: 03-21-2024 End: 03-21-2024 flow sheet Liza ANTONIO Work Phone: [facility] Comment on above: Second trimester pre gnancy; 26 weeks gestation of ; Elevated glucose tolerance test; Gestational diabetes mellitus (GDM), antepartum, gestational diabetes method of control unspecified Start: 03-14-2024 End: 03-14-2024 ambulatory [facility] Start: 03-11-2024 End: 03-11-2024 Bamboo flowsheet Liza ANTONIO Work Phone: [facility] Start: 03-11-2024 End: 03-11-2024 Bamboo flowsheet Liza ANTONIO Work Phone: [facility] Start: 03-11-2024 End: 03-11-2024 ambulatory LIZA DUQUE Not Available Start: 03-11-2024 End: 03-11-2024 flow sheet Liza ANTONIO Work Phone: [facility] Comment on above: 24 weeks gestation o f ; Second trimester ; Acute cystitis with hematuria Start: 03-06-2024 End: 03-06-2024 Clinisync Result Encounter Johnathan Jorje DO Work Phone: [facility] External Department Unsolicited Start: 03-06-2024 End: 03-06-2024 Clinisync Result Encounter Johnathan Jorje DO Work Phone: [facility] External Department Unsolicited Start: 03-06-2024 End: 03-06-2024 ambulatory JOHNATHAN JORJE Not Available Start: 03-06-2024 End: 03-06-2024 flow sheet Johnathan Jorje DO Work Phone: [facility] Comment on above: 24 weeks gestation o f ; Second trimester ; Flank pain; Acute cystitis with hematuria Start: 02-26-2024 End: 02-26-2024 ambulatory [facility] Start: 02-21-2024 End: 02-21-2024 Bamboo flowsheet Johnathan [...] Cardona MD Work Phone: [facility] Comment on above: 21 weeks gestation o f (Primary Dx); Multigravida of advanced maternal age in second trimester; Pyelonephritis affecting in second trimester; Bipolar disease during in second trimester ([facility]); Obesity affecting in second trimester, unspecified obesity type; BMI 39.0-39.9,adult; History of section complicating ; Vapes nicotine containing substance; Current rao with 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, antepartum; History of delivery, currently Start: 02-15-2024 End: 02-15-2024 Orders Only Flor Lopez RN [facility] Comment on above: 21 weeks gestation o f (Primary Dx); Obesity affecting in second trimester, unspecified obesity type Start: 02-15-2024 End: 02-15-2024 ambulatory JOHNATHAN Niño [facility] Start: 02-09-2024 End: 02-09-2024 Evaluation and management of inpatient TEJ ZENG [facility] Start: 02-08-2024 End: 02-09-2024 Evaluation and management of inpatient NATO LLOYD [facility] Start: 01-24-2024 End: 01-24-2024 Bamboo [...] gnancy Start: 11-24-2023 End: 11-24-2023 ambulatory JOHNATHAN RCEINOS Not Available Start: 08-18-2023 End: 08-18-2023 ambulatory [facility] Work Phone: Start: 08-18-2023 End: 08-18-2023 Patient encounter procedure [facility] Physician [facility] Work Phone: Start: 04-27-2023 End: 04-27-2023 ambulatory Sanaz Lockwood Other [employer] Other Start: 04-27-2023 Office outpatient vi sit 25 minutes Sanaz Lockwood [facility] Start: 05-10-2022 End: 05-10-2022 ambulatory Kaylah Han Other [employer] Other Start: 05-10-2022 Office outpatient ne w 20 minutes Kaylahpedrito Han [facility] Start: 04-27-2022 End: 04-27-2022 ambulatory KIMBERLYN XIE Facility:[facility] Start: 03-07-2022 End: 03-07-2022 ambulatory KIMBERLYN XIE Facility:[facility] Start: 09-23-[address] JAZIEL HILL Facility :[facility] Start: 06-29-2019 End: 06-29-2019 Emergency department patient visit Kimberlyn Xie [facility] Procedures Date Procedure Procedure Detail Performing Clinician Start: 05-13-2024 Urnls dip stick/tablet rgnt non-auto w/o micrscp Liza ANTONIO Work Phone: Start: 04-22-2024 [facility] UA (CLEAN/CATCH) TOOL PLANNER/MICRO IF IND. Johnathan Riverao DO Work Phone: [...] Work Phone: Start: 03-06-2024 [facility] UA (CLEAN/CATCH) TOOL PLANNER/MICRO IF IND. Johnathan Jorje DO Work Phone: [...] Screening for malign ant neoplasm of cervix [facility] Start: 02-14-2025 Adult BMI Screening Adult BMI Screen ing [facility] Start: 02-14-2025 Tobacco Screening Tobacco Screening [facility] Start: 02-14-2025 End: 02-14-2025 US MFM with or without consult US MFM with or without consult Imaging Routine 21 weeks gestation of Obesity affecting in second trimester, unspecified obesity type Expected: 02/14/2025 (Approximate), Expires: 02/14/2025 [facility] Work Phone: Comment on above: Expected: 02/14/2025 (Approximate), Expires: 02/14/2025 Start: 05-22-2024 End: 05-22-2024 Patient encounter procedure 05/22/2024 2:20 PM EST Routine [facility] [address] [phone] Johnathan Recinos, [address] [place] [address] [facility] Start: 05-13-2024 End: 05-13-2025 US biophysical profile w non stress test US biophysical profile w non stress test Imaging Routine Elevated blood pressure complicating in third trimester, antepartum Gestational diabetes mellitus (GDM) in third trimester, gestational diabetes method of control unspecified Expected: 05/13/2024 (Approximate), Expires: 05/13/2025 [facility] Work Phone: Comment on above: Expected: 05/13/2024 (Approximate), Expires: 05/13/2025 Start: 05-09-2024 End: 05-09-2024 Professional / ancillary services management 05/09/2024 8:30 AM EST Ancillary Procedure [facility] [address] [place] [phone] [facility] Start: 04-03-2024 End: 04-03-2024 Patient encounter procedure [facility] Comment on above: Arrived Start: 04-03-2024 End: 04-03-2024 Professional / ancillary services management 04/03/2024 1:00 PM EST Ancillary Procedure [facility] [address] [place] [place] [phone] [facility] Start: 03-21-2024 End: 03-21-2025 Measurement of glucose 3 hours after glucose challenge for glucose tolerance test Glucose tolerance, 3 hours Lab Routine Elevated glucose tolerance test Expected: 03/21/2024 (Approximate), Expires: 03/21/2025 [facility] Work Phone: Comment on above: Expected: 03/21/2024 (Approximate), Expires: 03/21/2025 Start: 03-21-2024 End: 03-21-2025 US for US OB SCAN FOR GROWTH Imaging Routine Gestational diabetes mellitus (GDM), antepartum, gestational diabetes method of control unspecified Expected: 03/21/2024 (Approximate), Expires: 03/21/2025 [facility] Comment on above: Expected: 03/21/2024 (Approximate), Expires: 03/21/2025 Start: 03-21-2024 End: 03-21-2024 Patient encounter procedure 03/21/2024 1:30 PM EST Routine [facility] [address] [place] [phone] Liza Duque PA [address] [place] [address] [facility] Start: 03-14-2024 End: 03-14-2024 Patient encounter procedure 03/14/2024 9:45 AM EST Appointment [facility] US Imaging [address] [place] [phone] [facility] Imaging Start: 02-22-2024 End: 02-22-2024 Patient encounter procedure 02/22/2024 10:15 AM EDT Appointment [facility] [place] [address] [place] [address] [facility] [place] Start: 02-21-2024 End: 02-20-2025 CBC panel - Blood by Automated count CBC Lab Routine Diabetes mellitus screening Expected: 02/21/2024 (Approximate), Expires: 02/20/2025 [facility] Work Phone: Comment on above: Expected: 02/21/2024 (Approximate), Expires: 02/20/2025 Start: 02-21-2024 End: 02-20-2025 Measurement of glucose 1 hour after glucose challenge for glucose tolerance test Glucose tolerance, 1 hour Lab Routine Diabetes mellitus screening Expected: 02/21/2024 (Approximate), Expires: 02/20/2025 [facility] Comment on above: Expected: 02/21/2024 (Approximate), Expires: 02/20/2025 Start: 02-21-2024 End: 02-21-2024 Patient encounter procedure 02/21/2024 1:50 PM EDT Routine [facility] [address] [phone] Johnathan Recinos, DO [address] [place] [address] [facility] Start: 01-24-2024 End: 02-23-2024 Alpha fetoprotein, maternal Alpha fetoprotein, maternal Lab Routine 18 weeks gestation of Expected: 01/24/2024 (Approximate), Expires: 02/23/2024 [facility] Comment on above: Expected: 01/24/2024 (Approximate), Expires: 02/23/2024 Start: 01-22-2024 End: 01-22-2024 Patient encounter procedure 01/22/2024 10:20 AM EDT Routine [facility] [address] [place] [place] [phone] Johnathan Recinos, DO [address] [place] [address] [facility] Start: 12-31-2023 COVID-19 Vaccine ( season) COVID-19 Vaccine ( season) [facility] Start: 12-31-2023 Influenza vaccination P [facility] Start: 10-11-2021 DTaP,Tdap and Td Vaccines (2 - Td or Tdap) DTaP,Tdap and Td Vaccines (2 - Td or Tdap) [facility] Start: 2017 Screening for malign ant neoplasm of cervix [facility] Start: 2008 Screening for malign ant neoplasm of cervix Pap Smear [facility] Start: 2005 Adult BMI Follow Up Plan Adult BMI Follow Up Plan [facility] Start: 1999 Depression Screening Depression Scre ening [facility] Bacteria identified in Urine by Culture Urine culture Microbiology Routine 24 weeks gestation of Second trimester Ordered: 03/06/2024 [facility] Work Phone: Comment on above: Ordered: 03/06/2024 Bacteria identified in Urine by Culture Urine culture Microbiology Routine Flank pain Acute cystitis with hematuria Urinary tract infection without hematuria, site unspecified Ordered: 04/03/2024 [facility] Work Phone: Comment on above: Ordered: 04/03/2024 CHLAMYDIA TRACHOMATI S (GENITO/STI) CHLAMYDIA TRACHOMATIS (GENITO/STI) Lab Routine Exposure to STD Ordered: 01/24/2024 [facility] Comment on above: Ordered: 01/24/2024 Cytology Cervical or vaginal smear or scraping study Pap Smear Pathology and Cytology Routine Well woman exam with routine gynecological exam Ordered: 01/24/2024 [facility] Comment on above: Ordered: 01/24/2024 Human papilloma viru s DNA [Presence] in Unspecified specimen by Probe with amplification HPV DNA probe, amplified Microbiology Routine Well woman exam with routine gynecological exam Ordered: 01/24/2024 [facility] Comment on above: Ordered: 01/24/2024 Neisseria gonorrhoea e DNA [Presence] in Unspecified specimen by J LUIS with probe detection Neisseria gonorrhea DNA probe, direct Lab Routine Exposure to STD Ordered: 01/24/2024 [facility] Comment on above: Ordered: 01/24/2024 Patient Education Epinephrine (B y injection) Anaphylaxis (ED) General Allergic Reaction (ED) [facility] Patient referral [facility] SURESWAB(R) ADVANCED VAGINITIS PLUS, TMA SURESWAB(R) ADVANCED VAGINITIS PLUS, TMA Pathology and Cytology Routine Vaginal discharge Ordered: 01/24/2024 [facility] Work Phone: Comment on above: Ordered: 01/24/2024 Immunizations Immunization Date Immunization Notes Care Provider Butch sims 06-02-2008 influenza virus vacc ine, unspecified formulation Johnathan Recinos DO Work Phone: [facility] Payers Date Payer Category Payer Self-pay [id number] 2024 [facility] [id number] 2024 Medicaid [id number] 2023 [facility] er [id number] 2023 [facility] Managed Care - O ANTHEM [id number] 2023 Unknown BCBS BCBS [id number] [id number] 2023-Present [phone] [address] [place] [id number] 1987 Unknown [id number] 2.16.840.1.818558.3.579.2 .593 1987 Unknown [id number] 2.16.840.1.249309.3.579.2 .593 1987 Unknown [id number] 2.16.840.1.406808.3.579.2 .593 1987 Unknown [id number] 2.16.840.1.572332.3.579.2 .1286 1987 Unknown [id number] 2.16.840.1.016355.3.579.2 .1286 1987 Unknown [id number] 2.16.840.1.049148.3.579.2 .1286 1987 Unknown [id number] 2.16.840.1.089750.3.579.2 .1286 1987 Unknown [id number] 2.16.840.1.224509.3.579.2 .6 1987 Unknown [id number] 2.16.840.1.942263.3.579.2 .1286 1987 Unknown [id number] 2.16.840.1.533082.3.579.2 .9 1987 Unknown [id number] 2.16.840.1.701532.3.579.2 .9 1987 Unknown [id number] 2.16.840.1.327195.3.579.2 .9 1987 Unknown [id number] 2.16.840.1.541928.3.579.2 .9 1987 Unknown [id number] 2.16.840.1.206124.3.579.2 .1258 1987 Unknown [id number] 2.16.840.1.871420.3.579.2 .9 1987 Unknown [id number] 2.16.840.1.280167.3.579.2 .9 1987 Unknown [id number] 2.16.840.1.426550.3.579.2 .9 1987 Unknown [id number] 2.16.840.1.224927.3.579.2 .1258 1987 Unknown [id number] 2.16.840.1.644731.3.579.2 .9 1987 Unknown [id number] 2.16.840.1.721749.3.579.2 .9 1959 Self-pay [id number] 1959 Unknown [id number] Private Health Insurance [id number] Unknown [id number] [id number] .531 Social History Date Type Detail Facility Start: 06-29-2019 End: 08-18-2023 Tobacco smoking status [facility] Smoker (finding) [facility] Start: 1985 Sex Assigned At Female [facility] Start: 06-10-2020 End: 02-15-2024 Sex Assigned At [facility] Other Start: 02-15-2024 Tobacco smoking status VAIS Ex-smoker [facility] Start: 02-15-2024 Tobacco use and exposure Smokeless tobacco non-user [facility] Start: 02-15-2024 Alcoholic beverage intake Lifetime non-drinker (finding) [facility] Start: 06-10-2020 End: 02-15-2024 History of Social function [facility] Childcare Unknown [facility] Start: 02-15-2024 Tobacco Comment PT IS A VAPER [facility] tem Start: 10-03-2023 [facility] Start: 1987 Sex assigned at Not on file [facility] Start: 12-02-2014 Sex Female (finding) [facility] Start: 02-08-2024 Sexual orientation Heterosexual (finding) [facility] Tobacco smoking stat [facility] Tobacco smoking consumption unknown [facility] Start: 10-26-2023 Gender identity Identifies as female gender (finding) [facility] Medical Equipment Procedure Code Equipment Code Equipment Original Text Equipment Identifier Dates 1 strip by In Vi tro route Daily Use in the morning prior to breakfast, 1 hour after each meal for a total of 4times daily. [id number] Start: 03-25-2024 End: 04-24-2024 1 each by In Vit ro route Daily Use to check FSBS four times daily [id number] Start: 03-25-2024 End: 04-24-2024 Inject 1 each un vickie the skin See administration instructions Use four times daily with insulin pen. [id number] Start: 05-13-2024 End: 06-12-2024 Goals Date Patient [...] 81 mg, Daily Blood Glucose Monitoring Suppl ([employer] Glucometer) w/Device kit 1 kit, Does not [...] nursing note reviewed. Exam conducted with a red lead burner present. Vitals: Estimated body mass index is [...] Johnathan Recinos DO documented in this encounter [facility] 04-03-2024 History of Present illness Narrative Reason [...] Medical History: Diagnosis Date Bipolar 1 disorder ([facility]) HISTORY PAST MEDICAL HISTORY SOCIAL HISTORY Past Medical History: Diagnosis Date Bipolar 1 disorder ([facility]) Social History Tobacco Use Smoking status: Not [...] nursing note reviewed. Exam conducted with a red lead burner present. Vitals: Estimated body mass index is [...] Johnathan Recinos DO documented in this encounter [facility] 03-21-2024 History of Present illness Narrative [...] Medical History: Diagnosis Date Bipolar 1 disorder ([facility]) HISTORY PAST MEDICAL HISTORY SOCIAL HISTORY Past [...] hour glucose order to have done at [facility]. Patient DECLINES 3 hour gtt and would like to start testing FSBS--Patient will be referred to Diabetic Edu at [facility]. Follow Up: Patient is to return to office in 2 week for routine OB appointment. Documented by eNttie Frazier MA on behalf of: PACO Freed documented in this encounter [facility] 03-11-2024 History of Present illness Narrative Reason [...] nursing note reviewed. Exam conducted with a red lead burner present. Vitals: Estimated body mass index is [...] of . Nursing will reach out to [facility] to inquire about culture results. Patient does have follow up appointment with Maternal Medicine. Patient to return to clinic in 4 weeks for routine OB appointment. Documented by Barbara Guillermo LPN on behalf of: PAC[facility] Freed documented in this encounter [facility] [facility] History of Present illness Narrative [...] nursing note reviewed. Exam conducted with a red lead burner present. Vitals: Estimated body mass index is [...] Johnathan Recinos DO documented in this encounter [facility] 02-21-2024 History of Present illness Narrative [...] Medical History: Diagnosis Date Bipolar 1 disorder ([facility]) HISTORY PAST MEDICAL HISTORY SOCIAL HISTORY Past Medical History: Diagnosis Date Bipolar 1 disorder ([facility]) Social History Tobacco Use Smoking status: Not [...] nursing note reviewed. Exam conducted with a red lead burner present. Vitals: Estimated body mass index is [...] Johnathan Recinos DO documented in this encounter [facility] 02-15-2024 History of Present illness Narrative [...] Medical History: Diagnosis Date Bipolar 1 disorder ([facility]) Depression PSHIST: Past Surgical History: Procedure Laterality [...] 4. Bipolar disease during in second trimester ([facility]) I reviewed with the patient that stability [...] of withdrawal and extrapyramidal effects on reviewed. Snow Groomer should be notified. Lack of controlled human [...] . For prevention of venous thromboembolism in fxqh-jodx-yfvv groups, pharmacologic thromboprophylaxis should be considered in [...] prevention Cervical length at 22 weeks at [facility] Follow up survey scheduled Serial growth assessments every 4 weeks after the anatomy scan can be done at OB office. ventricles should be measured at each US. If >=10 mm or concern for hydrocephalus refer to [facility]. If you would like [facility] to do the growth US please [...] Malena Cardona MD, FACOG (she/hers) Maternal- Medicine [facility] [address] [facility] 1st [place] [address] This document was created with [employer] technology. Though I make every effort to review the dictation as it is transcribed, on occasion the spoken word can be misinterpreted by the technology leading to inappropriate words, phrases, or sentences. This note is addressed to the requesting provider as a consultation for clinical guidance. Specific medical abbreviations are occasionally used and those are generally approved by the [place]?Board of?Obstetrics and?Gynecology?as well as?Jeri s abbreviations. The above plan of care was based solely on the diagnoses for which a consultation was requested. ?More frequent testing may be indicated based on her other medical/obstetrical conditions. The management of other or medical conditions is beyond the scope of requested consultation and will continue to be followed by the primary hide mill man or primary care provider. Note to patient: [...] yes Have you been seen here at [facility] in a previous ? yes Recent ER visits or hospitalizations? 02/07 kidney and bladder infection Bring blood sugar log or meter with you today? (Please bring them with you for every visit at [facility]) na Flu vaccine (Mar-June)? na Any concerns that you would like me to mention to the provider today? no documented in this encounter [facility] 01-24-2024 History of Present illness Narrative Reason [...] 4 section, pt to be referred to [facility] for level II ultrasound. Pt to [...] Johnathan Recinos DO documented in this encounter [facility] 01-03-2024 History of Present illness Narrative [...] of: PACO Freed documented in this encounter [facility] 12-25-2023 History of Present illness Narrative [...] Medical History: Diagnosis Date Bipolar 1 disorder ([facility]) HISTORY PAST MEDICAL HISTORY SOCIAL HISTORY Past [...] nursing note reviewed. Exam conducted with a red lead burner present. Vitals: Estimated body mass index is [...] or undercooked meat, and stay away from [facility]. Patient has been consulted regarding any further do's and don'ts of . Patient voiced understanding and all questions and concerns were answered. Patient complaints of nausea not helped by oral medications. [facility] Patient aware that [facility] will reach out to her to initiate therapy. Follow Up: Patient is to return in 4 weeks for routine OB appointment. Documented by Barbara Guillermo LPN on behalf of: Liza Duque PA-C documented in this encounter [facility] 04-27-2023 Evaluation note Encounter Date Diagnosis [...] condition. Mar, Sore throat (ICD-10 - J02.9) [facility] Other 01-10-2023 Evaluation note* Encounter Date Diagnosis [...] weeks for the cough to go away [facility] Other 11-07-2022 NoteIndication: Abdominal pain. Comparison: None [...] Electronically authenticated by: SURJIT FREITAS Date: 2022-03-07 20:49[facility]11[facility]19[facility] NoteI Staff This visit was conducted via phone communications from my office due to the restrictions of the COVID-19 pandemic. No physical exam was conducted due to audio only communication with the patient located at [address] [place], [place] [id number], with no one else. If it is determined that the patientshould be evaluated in person, the patient will be directed to the appropriate clinic or venue. Thepatient or their guardian verbally consented to this visit. Phone time was 15 minutes discussing health issues with counseling and coordination of care. Subjective Interval History/HPI Patient presents today for follow up [facility]health [facility]. Patient started Latuda 20mg last evening [...] (generalized anxiety disorder) Hidr (more content not included)...[facility] on above: Result Comment: Electronically Signed By: Carlota RODRIGUEZ CNP\.br\Date and Time Signed: 03/19/20 14:27 [id number] NoteI Staff This visit was conducted via two-way, real-time interactive video communications from my office using [employer] due to the restrictions of the COVID-19 pandemic. No physical exam was conducted other than those areas of the body visible to telecommunications with the patient located at [address] [place] [phone], with no one else in attendance. If [...] Ordered: TELEHEALTH Office Visit Level 3 Est 12996 General Treatment Plan Maintain medication regimen _Improve [...] Employed, 03/18/2019 Home/Environment Sylvia (more content not included)...[facility] CenterComment on above: Result Comment: Electronically Signed By: Carlota RODRIGUEZ CNP.mati\Date and Time Signed: 03/05/20 13:32 [id number] NoteI Staff This visit was conducted via two-way, real-time interactive video communications from my office using [employer] due to the restrictions of the COVID-19 pandemic. No physical exam was conducted other than those areas of the body visible to telecommunications with the patient located at [address] [place] [address], with no one else in attendance. If [...] anxiety, # 30 tab(s), Refills(s) 1, [id number], cm, 12/23/19 10:18:00 EDT, [...] qAM, # 30 tab(s), Refills(s) 2, Pharmacy: [facility]/pharmacy #[id number], 161, cm, 12/23/19 10:18:00 EDT, Height/Length Dosing, 82, kg, 12/23/19 10:18:00 EDT, Weight Dosing aripiprazole, See Instructions, 1 tab po qAM, # 30 tab(s), Refills(s) 5, Pharmacy: [facility]/pharmacy #[id number], 161, cm, [...] 4 weeks Additional Instructions: (more content not included)...[facility] CenterComment on above:Result Comment: Electronically Signed By: Carlota RODRIGUEZ CNP\.br\Date and Time Signed: 01/27/20 22:35 [id number] NoteI Staff This visit was conducted via two-way, real-time interactive video communications from my office using [employer] due to the restrictions of the COVID-19 pandemic. No physical exam was conducted other than those areas of the body visible to telecommunications with the patient located at [address] [place] [address], with no one else in attendance. If [...] Ordered: TELEHEALTH Office Visit Level 3 Est 36955 General Treatment Plan Maintain medication regimen _Improve [...] Use:. Never Smokeless Tob (more content not included)...[facility] CenterComment on above:Result Comment: Electronically Signed By: Carlota RODRIGUEZ CNP\.br\Date and Time Signed: 01/13/20 09:11 [id number] NoteI Staff This visit was conducted via two-way, real-time interactive video communications from my office using [employer] due to the restrictions of the COVID-19 pandemic. No physical exam was conducted other than those areas of the body visible to telecommunications with the patient located at [address] [place] [address], with no one else in attendance. If [...] anxiety, # 30 tab(s), Refills(s) 1, [id number] 161, cm, 06/13/19 14:39:00 EST, Height/Length Measured, 82, kg, 06/13/19 14:39:00 EST, Weight Measured aripiprazole, See Instructions, 1 tab po qAM, # 30 tab(s), Refills(s) 0, [id number] 161, cm, 12/23/19 10:18:00 EDT, [...] Allergies Bactrim Social History (more content not included)...[facility] CenterComment on above:Result Comment: Electronically Signed By: Carlota RODRIGUEZ CNP\.mati\Date and Time Signed: 12/23/19 16:37 [id number] NoteI Staff This visit was conducted via two-way, real-time interactive video communications from my office using [employer] due to the restrictions of the COVID-19 pandemic. No physical exam was conducted other than those areas of the body visible to telecommunications with the patient located at [address] [place] [address], with no one else in attendance. If [...] spasm, # 30 tab(s), Refills(s) 1, Pharmacy: [facility] #[id number], 161, cm, 06/13/19 14:39:00 EST, Height/Length [...] Employment/School Employed, 03/18/2019 Home/Environment (more content not included)...[facility] CenterComment on above:Result Comment: Electronically Signed By: Carlota RODRIGUEZ CNP\.br\Date and Time Signed: 12/02/19 16:38 EDTChief complaint+Reason for visit Narrative* Chief Complaint Nausea, diarrhea, fe zhou Reason for Visit Contact with and (guillen spected) exposure to covid-19 Sore throat [facility] Work Phone: Evaluation note* Diagnosis Onset Date Resolution Status Contact with and (suspected) exposure to covid-19 noneactive Sore throat noneactive [facility] Work Phone: Evaluation note* Diagnosis 21 weeks gestation of - Primary Obesity affecting in second trimester, unspecified obesity type [facility] 21 weeks [facility] of - Primary Multigravida of advanced maternal age in second trimester Pyelonephritis affecting in second trimester Bipolar disease during in second trimester ([facility]) Obesity affecting in second trimester, unspecified obesity type BMI 39.0-39.9,adult History of section complicating Previous delivery, unspecified as to episode of care or not applicable Vapes nicotine containing substance Current rao with 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, antepartum History of delivery, currently with history of pre-term labor [facility] Diagnosis 22 weeks gestation of Second trimester state, incidental Diabetes mellitus screening Screening for diabetes mellitus documented in this encounter [facility]* Diagnosis 24 weeks gestation of Second trimester state, incidental Flank pain Abdominal pain, unspecified site Acute cystitis with hematuria documented in this encounter [facility]* Diagnosis 24 weeks gestation [...] Hospitalization History see above surgical histo ry [facility] Other InstructionsNot on filedocumented in this encounter [facility] Axis Three SystemInstructions* Attachments The following attachments cannot be sent through Care Everywhere. * Preeclampsia (Chinese) * Movement (Chinese) [facility] Advance Directives No Advanced Directives [...] may need to be seen by an magisterial district judge if you have other events like this without definite egg exposure. Summary Purpose Family History No Family History Records Found Relationship Condition Age at Onset Recorded Date/T alo father Diabetes mellitus Unknown Hypertension Unknown Additional Source Comments INFORMATION SOURCE (unrecogn ized section and content) DATE CREATED AUTHOR 10/30/2020 [facility] DATE CREATED AUTHOR AUTHOR'S ORGANIZ ATION 04/29/2022 [facility] DATE CREATED AUTHOR AUTHOR'S ORGANIZ ATION 03/16/2024 [facility] DATE CREATED AUTHOR AUTHOR'S ORGANIZ ATION 04/25/2024 [facility] DATE CREATED AUTHOR AUTHOR'S ORGANIZ ATION 05/14/2024 [facility] EPIC REASON FOR VISIT [...] August 18, 2023 End: August 18, 2023 Presentation Manager Relationship Specialty Start Date End Date No Pcp, [place] [address] PCP - General Family Medicine 03/12/19 Presentation Manager Relationship Specialty Start Date End Date No Pcp, [place] [address] PCP - General Family Medicine 03/12/19 Goals [...] BE BASED ON THE PRIMARY CLINICAL RECORDS. [facility]. provides no warranty or guarantee of the accuracy or completeness of information in this document.
--- NOTE | 2024-05-17 13:08 | US_ITS ---
[place] [id number] Patient Name: PROSPER RUIZ MRN: [id number] date: 1985 Sex: F Assigned Patient Location: [facility] Current Patient Location: [facility] Accession/Order Number: [id number] Exam Date: 05/17/2024 13:11 Report Date: 05/17/2024 13:55 At the request of: GUERRERO DUQUE Procedure: US OB BPP w non-stress EXAMINATION: US OB BPP w non-stress HISTORY:GESTATIONAL DIABETES MELLITUS O24.419 COMPARISON: Ultrasound OB biophysical 05/13/2024 TECHNIQUE: Ultrasound biophysical profile was performed in the radiology department. BREATHING MOVEMENTS: 2 GROSS BODY MOVEMENTS: 2 TONE: 2 QUALITATIVE AMNIOTIC FLUID VOLUME: 2 PRESENTATION: CEPHALIC HEART RATE: 161.68 bpm AMNIOTIC FLUID VOLUME: 16.61 cm GESTATIONAL AGE: 34 weeks 3 days US/US OB BPP w non-stress IMPRESSION: Total biophysical profile score: 8 Electronically authenticated by: CYNDI SOLIS Date: 05/17/2024 13:55
[2024-05-17 13:46] VITALS: BP 94/52; PULSE 98
== END 2024-05-17 14:14 | disposition home or self-care (01) ==
LOC: FBCO 00:21 → FBC 13:02
PROVIDERS: PCP Nurse Practitioner Family; Visit Provider Obstetrics & Gynecology
DX: O16.3 Unspecified maternal hypertension, third trimester (principal); O24.419 Gestational diabetes mellitus in pregnancy, unspecified control; Z3A.34 34 weeks gestation of pregnancy
CPT/HCPCS: 76818

== ENCOUNTER 2024-05-21 00:40 | Outpatient (OUT) | payer BC, OTHER, SELFPAY ==
--- OUTSIDE RECORDS SUMMARY | 2024-05-21 00:44 | XMS_ITS | CCD ---
Author Organization [facility] Care Team Providers Care Report Analyst Name Role Phone Kimberlyn Xie Primary Care [...] extract; 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: [egg] Drug Allergy 08-18-19 Vomiting [facility] (20 sources) Sulfamethoxazole; 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: [SULFAMETHOXAZOLE] Drug Allergy 08-18-19 [facility] (20 sources) Trimethoprim; 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: [TRIMETHOPRIM] Drug Allergy 08-18-19 24 [facility] (3 sources) Fish Containing Products; 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: [Fish Containing Products] Propensity to adverse reactions 08-18-19 Difficulty Breathing [facility] (1 source) Sulfamethoxazole / Trimethoprim Drug Allergy 02-04-20 13 [facility] (20 sources) Sulfamethoxazole / Trimethoprim Drug Allergy 11-24-19 24 hives, [facility] Other (20 sources) Egg-Derived Products Drug Allergy [...] (six) hours as needed for pain. Active [id number] 200 actuat albuterol 0.09 mg/actuat metered dose [...] oral tablet (1 source) alpha-Adrenergic Agonist, Uncompetitive C-jjkkhz-J-aspartate Receptor Antagonist, Sigma-1 Agonist Start: 04-27-2023 take 4 tablets by mouth every twenty-four hours as needed Capmist DM 60-15-400 MG as needed Orally every 4-6 hours as needed, max 4 tablets in 24 hours for 5 days Mar, Active [id number] 0.3 ml EPINEPHrine 1 mg/ml auto-injector (2 [...] 18, 2023 12:00am take 1 capsule by [facility] every twenty-four hours in the morning [...] 03-09-2022 Episodic Other aftercare (1 source) Other senior living (current) drug therapy; 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: [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] Onset: 12-30-2022 Episodic Other [...] UA Negative Negative - 4(70) +++ mg/dL [facility] Blood, UA Positive Negative - 50 Slick/mcL [facility] Comment on above: trace Clarity, UA Clear [facility] re Color, UA Yellow [facility] Glucose, UA Negative Negative - 1999(110) ++++ mg/dL [facility] Interpretation and review of laboratory results Abnormal [facility] Ketones, UA Negative Negative - 160(16) ++++ mg/dL [facility] Leukocytes, UA Negative Negative - 500+++ Mira/mcL [facility] Nitrite, UA Negative Negative - Positive [facility] pH, UA 6.5 5 - 9 [facility] e Protein, UA Negative Negative - 2000(20) ++++ mg/dL [facility] Spec Grav, UA 1.01 1 - 1.03 [facility] Urobilinogen, UA 0.2 0.2 - 12 mg/dL [facility] US OB FOLLOW [...] 2513 gm / 5 lbs, 8 oz (3984-5632 gm) [place] Normal: 2393 gm (3477-5477 gm) [place] Wt%: 65% for 34.1 wks [...] as of 03/21/2024: 32w3d [facility] UA (CLEAN/CATCH) CURRENCY EXCHANGE SPECIALIST/CHUY RO IF IND.on 04-22-2024 BILIRUBIN URINE Negative [...] (U) No Growth 2 Days PERFORMED BY: [place] [address] PATHOLOGIST CUSTOMER SUPPORT COORDINATOR SYD SHEFFIELD M.D. Normal [facility] Comment on above: Performed By: #### C UU #### [address] RECURRENT VAGINITIS (HTRX)on 04-06-2024 ATOPOBIUM VAGINAE [...] detected [facility] BRAD KRUSEI 0 [facility] Healt hcare BRAD KRUSEI Not detected [facility] CHLAMYDIA TRACHOMATIS 0 [facility] CHLAMYDIA TRACHOMATIS Not detected N [facility] Healthcare GARDNERELLA VAGINALIS 0 NOM S [facility] GARDNERELLA VAGINALIS Not detected N [facility] MEGASPHAERA (TYPES 1, 2) 0 [facility] MEGASPHAERA (TYPES 1, 2) Not detected [facility] MYCOPLASMA GENITALIUM 0 NOM S [facility] MYCOPLASMA GENITALIUM Not detected N [facility] NEISSERIA GONORRHOEAE 0 [facility] NEISSERIA GONORRHOEAE Not detected N [facility] TRICHOMONAS VAGINALIS 0 NOM S [facility] TRICHOMONAS VAGINALIS Not detected N [facility] Healthcare [facility] e Urinalysis macro (dipstick) panel (U)on 04-03-2024 Bilirubin, UA Negative Negative - 4(70) +++ mg/dL [facility] Blood, UA Negative Negative - 50 Slick/mcL [facility] Clarity, UA Cloudy [facility] re Color, UA Yellow [facility] e Glucose, UA 1+ Negative - 1999(110) ++++ mg/dL [facility] Comment on above: 100mg/dL Interpretation and review of laboratory results Abnormal [facility] Ketones, UA Negative Negative - 160(16) ++++ mg/dL [facility] Leukocytes, UA Trace Negative - 500+++ Mira/mcL [facility] Nitrite, UA Negative Negative - Positive [facility] pH, UA 6 5 - 9 [facility] e Protein, UA Negative Negative - 1999(20) ++++ mg/dL [facility] Spec Grav, UA 1.01 1 - 1.03 [facility] Urobilinogen, UA 0.2 0.2 - 12 mg/dL [facility] ALL CBC WITH AUTO DIFFon BASOPHILS ABSOLUTE AUTO 0 [facility] Basophils/100 WBC (Bld) 0.1 % Low 0.2 - 2.0 % [facility] Eosinophils/100 WBC (Bld) 0.5 % Low 0.9 - 7.0 % [facility] Erythrocyte distribution width (RBC) [Ratio] 13.9 % 11.0 - 15.0 % [facility] Hematocrit (Bld) [Volume fraction] 35.2 % Low 36.0 - 48.0 % [facility] Hemoglobin (Bld) [Mass/Vol] 11.5 g/dL Low 12.0 - 16.0 g/dL [facility] IMMATURE GRANULOCYTES ABS AUTO 0.05 High [facility] Immature granulocytes/100 WBC (Bld) 0.6 % High 0.0 - 0.5 % [facility] Interpretation and review of laboratory results Abnormal [facility] LYMPHOCYTES ABSOLUTE AUTO 1.9 [facility] Lymphocytes/100 WBC (Bld) 22.9 % 20.5 - 60.0 % [facility] MCH (RBC) [Entitic mass] 30.5 pg 26.7 - 34.0 pg [facility] MCHC (RBC) [Mass/Vol] 32.7 g/dL 29.9 - 35.2 g/dL [facility] MCV (RBC) [Entitic vol] 93.4 fL 81.0 - 99.0 fL [facility] MONOCYTES ABSOLUTE AUTO 0.3 [facility] Monocytes/100 WBC (Bld) 3.3 % 1.7 - 12.0 % [facility] NEUTROPHILS ABSOLUTE AUTO 6.1 [facility] Neutrophils/100 WBC (Bld) 72.6 % 43.0 - 75.0 % [facility] Platelet mean volume (Bld) [Entitic vol] 10.5 fL 9.5 - 13.5 fL [facility] TBH EO # 0 [facility]T 347 [facility] TB RBC 3.[address] [facility] e TB WBC 8.4 [facility] Urinalysis macro (dipstick) panel (U)on 03-21-2024 Bilirubin, UA Negative Negative - 4(70) +++ mg/dL [facility] Blood, UA Negative Negative - 50 Slick/mcL [facility] Clarity, UA Cloudy [facility] re Color, UA Yellow [facility] e Glucose, UA Positive Negative - 1999(110) ++++ mg/dL [facility] Comment on above: 500 mg Interpretation and review of laboratory results Abnormal [facility] Ketones, UA Negative Negative - 160(16) ++++ mg/dL [facility] Leukocytes, UA Negative Negative - 500+++ Mira/mcL [facility] Nitrite, UA Negative Negative - Positive [facility] pH, UA 6.5 5 - 9 [facility] e Protein, UA Negative Negative - 1999(20) ++++ mg/dL [facility] Spec Grav, UA 1.025 1 - 1.03 [facility] Urobilinogen, UA 0.2 0.2 - 12 mg/dL [facility] Urinalysis macro (dipstick) panel (U)on 03-11-2024 Bilirubin, UA Negative Negative - 4(70) +++ mg/dL [facility] Blood, UA Positive Negative - 50 Slick/mcL [facility] Comment on above: large Clarity, UA Clear [facility] re Color, UA Straw [facility] Glucose, UA Negative Negative - 1999(110) ++++ mg/dL [facility] Interpretation and review of laboratory results Abnormal [facility] Ketones, UA Negative Negative - 160(16) ++++ mg/dL [facility] Leukocytes, UA Negative Negative - 500+++ Mira/mcL [facility] Nitrite, UA Negative Negative - Positive [facility] pH, UA 6 5 - 9 [facility] e Protein, UA Negative Negative - 1999(20) ++++ mg/dL [facility] Spec Grav, UA 1.02 1 - 1.03 [facility] Urobilinogen, UA 0.2 0.2 - 12 mg/dL [facility] TBH UA (CLEAN/CATCH) CURRENCY EXCHANGE SPECIALIST/CHUY RO IF IND.on 03-06-2024 BILIRUBIN URINE COLOR INTERFERENCE Abnormal NEGATIVE N [facility] BLOOD URINE COLOR INTERFERENCE Abnormal NEGATIVE [facility] Clarity (U) CLEAR CLEAR [facility] re Color (U) DK. RED YELLOW [facility] e GLUCOSE URINE UA COLOR INTERFERENCE Abnormal NEGAT CARMELITA mg/dL [facility] Interpretation and review of laboratory results Abnormal [facility] Ketones Ql (U) COLOR INTERFERENCE Abnormal NEGATIV E mg/dL [facility] Leukocyte esterase Test strip Ql (U) COLOR INTERFERENCE Abnormal NEGATIVE [facility] care NITRITE URINE COLOR INTERFERENCE Abnormal NEGATIVE [facility] PH URINE COLOR INTERFERENCE Abnormal 5.0 - 9.0 [facility] PROTEIN URINE COLOR INTERFERENCE Abnormal NEG/TRAC E mg/dL [facility] SPECIFIC GRAVITY URINE 1.020 1.005 - 1.025 [facility] URINE MICROSCOPIC INDICATED YES [facility] UROBILINOGEN URINE COLOR INTERFERENCE Abnormal 0.2 - 1.0 EU/dL [facility] e Urinalysis macro (dipstick) panel [...] UA Positive Negative - 1999(20) ++++ mg/dL [facility] Healthcare Comment on above: 100 Spec Grav, UA 1.02 1 - 1.03 [facility] Urobilinogen, UA 1.0 0.2 - 12 mg/dL [facility] Urinalysis macro (dipstick) panel (U)on 02-21-2024 Bilirubin, UA Negative Negative - 4(70) +++ mg/dL [facility] Blood, UA Negative Negative - 50 Slick/mcL [facility] Clarity, UA Clear [facility] Color, UA Yellow [facility] Glucose, UA Negative Negative - 1999(110) ++++ mg/dL [facility] Healthcare Interpretation and review of laboratory results Abnormal [facility] Healthcare Ketones, UA Negative Negative - 160(16) ++++ mg/dL [facility] Leukocytes, UA Trace Negative - 500+++ Mira/mcL [facility] Nitrite, UA Negative Negative - Positive [facility] pH, UA 5.5 5 - 9 [facility] Protein, UA Negative Negative - 1999(20) ++++ mg/dL [facility] Spec Grav, UA 1.01 1 - 1.03 [facility] Urobilinogen, UA 0.2 0.2 - 12 mg/dL [facility] CBC AND AUTO DIFFon 02-09-20 ABSOLUTE BASOPHIL 0.0 X10E9/L Normal 0.0-0.2 [facility] Comment on above: Performed By: #### 3 0534-1, CMP, CBCA #### [facility] ([id number]) [address], [address] [place] [address] ABSOLUTE NEUTROPHIL 5.4 X10E9/L Normal 1.5-6.6 [facility] Comment on above: Performed By: #### 3 2132-1, CMP, CBCA #### [facility] ([id number]) [address], [address] [place] [address] Basophils/100 WBC (Bld) 0.2 % Normal [facility] Comment on above: Performed By: #### 3 2132-1, CMP, CBCA #### [facility] ([id number]) [address], [address] [place] [address] Eosinophils (Bld) [#/Vol] 0.1 10*3/uL Normal 0.0-0.4 [facility] Comment on above: Performed By: #### 3 2132-1, CMP, CBCA #### [facility] ([id number]) [address], [address] [place] [address] Eosinophils/100 WBC (Bld) 0.9 % Normal [facility] Comment on above: Performed By: #### 3 2132-1, CMP, CBCA #### [facility] ([id number]) [address], [address] [place] [address] Erythrocyte distribution width (RBC) [Ratio] 14.3 % Normal 11.5-15.0 [facility] Comment on above: Performed By: #### 3 2132-1, CMP, CBCA #### [facility] ([id number]) [address], [address] [place] [address] Hematocrit (Bld) [Volume fraction] 30.3 % Low 35-47 [facility] Comment on above: Performed By: #### 3 2132-1, CMP, CBCA #### [facility] ([id number]) [address], [address] [place] [address] Hemoglobin (Bld) [Mass/Vol] 10.3 g/dL Low 11.7-15.5 [facility] Comment on above: Performed By: #### 3 2132-1, CMP, CBCA #### [facility] ([id number]) [address], [address] [place] [address] Lymphocytes (Bld) [#/Vol] 1.7 10*3/uL Normal 1.0-3.5 [facility] Comment on above: Performed By: #### 3 2132-1, CMP, CBCA #### [facility] ([id number]) [address], [facility] [address] [place] [address] Lymphocytes/100 WBC (Bld) 22.0 % Normal [facility] Comment on above: Performed By: #### 3 2132-1, CMP, CBCA #### [facility] ([id number]) [address], [address] [place] [address] MCH (RBC) [Entitic mass] 31.3 pg Normal 27-34 [facility] Comment on above: Performed By: #### 3 2132-1, CMP, CBCA #### [facility] ([id number]) [address], [address] [place] [address] MCHC (RBC) [Mass/Vol] 34.0 g/dL Normal 32-36 [facility] Comment on above: Performed By: #### 3 2132-1, CMP, CBCA #### [facility] ([id number]) [address], [facility] [address] [place] [address] MCV (RBC) [Entitic vol] 92 fL Normal 80-100 [facility] Comment on above: Performed By: #### 3 2132-1, CMP, CBCA #### [facility] ([id number]) [address], [address] [place] [address] Monocytes (Bld) [#/Vol] 0.5 10*3/uL Normal 0-0.9 [facility] Comment on above: Performed By: #### 3 2132-1, CMP, CBCA #### [facility] ([id number]) [address], [address] [place], [place] [address] Monocytes/100 WBC (Bld) 7.0 % Normal [facility] Comment on above: Performed By: #### 3 2132-1, CMP, CBCA #### [facility] ([id number]) [address], [address] [place], [place] [address] Neutrophils/100 WBC (Bld) 69.9 % Normal [facility] Comment on above: Performed By: #### 3 2132-1, CMP, CBCA #### [facility] ([id number]) [address], [address] [place] [address] Platelet mean volume (Bld) [Entitic vol] 8.8 fL Normal 7-12 [facility] Comment on above: Performed By: #### 3 2132-1, CMP, CBCA #### [facility] ([id number]) [address], [address] [place] [address] Platelets (Bld) [#/Vol] 259 10*3/uL Normal 150-450 [facility] Comment on above: Performed By: #### 3 2132-1, CMP, CBCA #### [facility] ([id number]) [address], [address] [place] [address] RBC COUNT 3.29 X10E12/L Low 3.80-5.20 [facility] Comment on above: Performed By: #### 3 2132-, CMP, CBCA #### [facility] ([id number]) [address], [address] [place] [address] WBC (Bld) [#/Vol] 7.7 10*3/uL Normal 4.0-11.0 [facility] Comment on above: Performed By: #### 3 2132-1, CMP, CBCA #### [facility] ([id number]) [address], [address] [place] [address] COMPREHENSIVE METABOLIC PANE Paco 02-09-2024 Albumin [Mass/Vol] 2.9 g/dL Low 3.2-5.3 [facility] Comment on above: Performed By: #### 3 2132-1, CMP, CBCA #### [facility] ([id number]) [address], [address] [place] [address] ALP [Catalytic activity/Vol] 118 U/L Normal 39-130 [facility] Comment on above: Performed By: #### 3 2132-1, CMP, CBCA #### [facility] ([id number]) [address], [address] [place] [address] ALT [Catalytic activity/Vol] 6 U/L Normal 0-31 [facility] Comment on above: Performed By: #### 3 2132-1, CMP, CBCA #### [facility] ([id number]) [address], [address] [place] [address] Anion gap [Moles/Vol] 10 mmol/L Normal 5-15 [facility] Comment on above: Performed By: #### 3 2132-1, CMP, CBCA #### [facility] ([id number]) [address], [address] [place] [address] AST [Catalytic activity/Vol] 9 U/L Normal 0-41 [facility] Comment on above: Performed By: #### 3 2132-1, CMP, CBCA #### [facility] ([id number]) [address], [address] [place] [address] Bilirubin [Mass/Vol] 0.4 mg/dL Normal 0.3-1.2 [facility] Comment on above: Performed By: #### 3 2132-1, CMP, CBCA #### [facility] ([id number]) [address], [address] [place] [address] Calcium [Mass/Vol] 8.5 mg/dL Normal 8.5-10.5 [facility] Comment on above: Performed By: #### 3 2132-1, CMP, CBCA #### [facility] ([id number]) [address], [address] [place] [address] Chloride [Moles/Vol] 105 mmol/L Normal 98-109 [facility] Comment on above: Performed By: #### 3 2132-1, CMP, CBCA #### [facility] ([id number]) [address], [address] [place] [address] CO2 [Moles/Vol] 22 mmol/L Normal 22-32 [facility] Comment on above: Performed By: #### 3 2132-1, CMP, CBCA #### [facility] ([id number]) [address], [address] [place] [address] Creatinine [Mass/Vol] 0.45 mg/dL Normal 0.40-1.00 [facility] Comment on above: Result Comment: METH OD TRACEABLE TO IDMS STANDARD Performed By: #### 3 2132-1, CMP, CBCA #### [facility] ([id number]) [address], [address] [place] [address] eGFR (CKD-EPI) NON-RACE DEPENDENT >90 Normal >59 [facility] Comment on above: Result Comment: Reported eGFR is based on the CKD-EPI 2020 equation that does not use a race coefficient. Performed By: #### 3 2132-1, CMP, CBCA #### [facility] ([id number]) [address], [address] [place] [address] Glucose [Mass/Vol] 84 mg/dL Normal 65-99 [facility] Comment on above: Performed By: #### 3 2132-1, CMP, CBCA #### [facility] ([id number]) [address], [address] [place] [address] Potassium [Moles/Vol] 3.7 mmol/L Normal 3.5-5.0 [facility] Comment on above: Performed By: #### 3 2132-1, CMP, CBCA #### [facility] ([id number]) [address], [address] [place] [address] Protein [Mass/Vol] 6.0 g/dL Normal 6.0-8.0 [facility] Comment on above: Performed By: #### 3 2132-1, CMP, CBCA #### [facility] ([id number]) [address], [address] [place] [address] Sodium [Moles/Vol] 137 mmol/L Normal 134-146 [facility] Comment on above: Performed By: #### 3 2132-1, CMP, CBCA #### [facility] ([id number]) [address], [address] [place] [address] Urea nitrogen [Mass/Vol] 5 mg/dL Normal 5-23 [facility] Comment on above: Performed By: #### 3 2132-1, CMP, CBCA #### [facility] ([id number]) [address] [place] [address] MAGNESIUMon 02-09-2024 Magnesium [Mass/Vol] 1.6 mg/dL Low 1.8-2.6 [facility] Comment on above: Performed By: #### 3 2132-1, CMP, CBCA #### [facility] ([id number]) [address], [address] [place] [address] PHOSPHORUSon 02-09-2024 Phosphate [Mass/Vol] 4.5 mg/dL Normal 2.4-4.9 [facility] Comment on above: Performed By: #### 3 2132-1, CMP, CBCA #### [facility] ([id number]) [address], [address] [place] [address] US RETROPERITONEAL LIMITEDon 02-09-2024 US RETROPERITONEAL LIMITED [...] MD on 02/09/2024 10:[address] [facility] BLOOD CULTUREon 02-08-2024 Bacteria identified Aer cx Nom (Bld) SPECIMEN NOTES SUBOPTIMAL VOLUME OF BLOOD COLLECTED, RESULTS MAY BE AFFECTED. CULTURE RESULTS NO GROWTH [address] [facility] Comment on above: Performed By: #### 3 2132-1, CMP, CBCA #### [facility] ([id number]) [address], [address] [place] [address] Bacteria identified Aer cx Nom (Bld) SPECIMEN NOTES SUBOPTIMAL VOLUME OF BLOOD COLLECTED, RESULTS MAY BE AFFECTED. CULTURE RESULTS NO GROWTH [address] [facility] Comment on above: Performed By: #### 1 7928-3 #### [facility] ([id number]) [address], [address] [place] [address] CBC AND AUTO DIFFon 10-10-20 24 ABSOLUTE BASOPHIL 0.0 X10E9/L Normal 0.0-0.2 [facility] Comment on above: Performed By: #### 3 2132-1, CMP, CBCA #### [facility] ([id number]) [address], [address] [place] [address] ABSOLUTE NEUTROPHIL 9.5 X10E9/L High 1.5-6.6 [facility] Comment on above: Performed By: #### 3 2132-1, CMP, CBCA #### [facility] ([id number]) [address], [address] [place] [address] Basophils/100 WBC (Bld) 0.0 % Normal [facility] Comment on above: Performed By: #### 3 2132-1, CMP, CBCA #### [facility] ([id number]) [address], [address] [place] [address] Eosinophils (Bld) [#/Vol] 0.0 10*3/uL Normal 0.0-0.4 [facility] Comment on above: Performed By: #### 3 2132-1, CMP, CBCA #### [facility] ([id number]) [address], [address] [place] [address] Eosinophils/100 WBC (Bld) 0.0 % Normal [facility] Comment on above: Performed By: #### 3 2132-1, CMP, CBCA #### [facility] ([id number]) [address], [address] [place] [address] Erythrocyte distribution width (RBC) [Ratio] 14.5 % Normal 11.5-15.0 [facility] Comment on above: Performed By: #### 3 2132-1, CMP, CBCA #### [facility] ([id number]) [address], [address] [place] [address] Hematocrit (Bld) [Volume fraction] 31.3 % Low 35-47 [facility] Comment on above: Performed By: #### 3 2132-1, CMP, CBCA #### [facility] ([id number]) [address], [address] [place] [address] Hemoglobin (Bld) [Mass/Vol] 10.6 g/dL Low 11.7-15.5 [facility] Comment on above: Performed By: #### 3 2132-1, CMP, CBCA #### [facility] ([id number]) [address], [facility] [address] [place] [address] Lymphocytes (Bld) [#/Vol] 1.1 10*3/uL Normal 1.0-3.5 [facility] Comment on above: Performed By: #### 3 2132-1, CMP, CBCA #### [facility] ([id number]) [address], [facility] [address] [place] [address] Lymphocytes/100 WBC (Bld) 9.4 % Normal [facility] Comment on above: Performed By: #### 3 2132-1, CMP, CBCA #### [facility] ([id number]) [address], [address] [place] [address] MCH (RBC) [Entitic mass] 30.8 pg Normal 27-34 [facility] Comment on above: Performed By: #### 3 2132-1, CMP, CBCA #### [facility] ([id number]) [address], [address] [place] [address] MCHC (RBC) [Mass/Vol] 33.9 g/dL Normal 32-36 [facility] Comment on above: Performed By: #### 3 2132-1, CMP, CBCA #### [facility] ([id number]) [address], [address] [place] [address] MCV (RBC) [Entitic vol] 91 fL Normal 80-100 [facility] Comment on above: Performed By: #### 3 2132-1, CMP, CBCA #### [facility] ([id number]) [address], [address] [place] [address] Monocytes (Bld) [#/Vol] 0.9 10*3/uL Normal 0-0.9 [facility] Comment on above: Performed By: #### 3 2132-1, CMP, CBCA #### [facility] ([id number]) [address], [address] [place] [address] Monocytes/100 WBC (Bld) 8.2 % Normal [facility] Comment on above: Performed By: #### 3 2132-1, CMP, CBCA #### [facility] ([id number]) [address], [address] [place] [address] Neutrophils/100 WBC (Bld) 82.4 % Normal [facility] Comment on above: Performed By: #### 3 2132-1, CMP, CBCA #### [facility] ([id number]) [address], [address] [place] [address] Platelet mean volume (Bld) [Entitic vol] 8.5 fL Normal 7-12 [facility] Comment on above: Performed By: #### 3 2132-1, CMP, CBCA #### [facility] ([id number]) [address], [address] [place] [address] Platelets (Bld) [#/Vol] 246 10*3/uL Normal 150-450 [facility] Comment on above: Performed By: #### 3 2132-1, CMP, CBCA #### [facility] ([id number]) [address], [address] [place] [address] RBC COUNT 3.44 X10E12/L Low 3.80-5.20 [facility] Comment on above: Performed By: #### 3 2132-1, CMP, CBCA #### [facility] ([id number]) [address], [address] [place] [address] WBC (Bld) [#/Vol] 11.5 10*3/uL High 4.0-11.0 [facility] Comment on above: Performed By: #### 3 2132-1, CMP, CBCA #### [facility] ([id number]) [address], [address] [place] [address] COMPREHENSIVE METABOLIC PANE Paco 02-08-2024 Albumin [Mass/Vol] 3.1 g/dL Low 3.2-5.3 [facility] Comment on above: Performed By: #### 3 2132-1, CMP, CBCA #### [facility] ([id number]) [address], [address] [place] [address] ALP [Catalytic activity/Vol] 100 U/L Normal 39-130 [facility] Comment on above: Performed By: #### 3 2132-1, CMP, CBCA #### [facility] ([id number]) [address], [address] [place] [address] ALT [Catalytic activity/Vol] 7 U/L Normal 0-31 [facility] Comment on above: Performed By: #### 3 2132-1, CMP, CBCA #### [facility] ([id number]) [address], [address] [place] [address] Anion gap [Moles/Vol] 12 mmol/L Normal 5-15 [facility] Comment on above: Performed By: #### 3 2132-1, CMP, CBCA #### [facility] ([id number]) [address], [address] [place] [address] AST [Catalytic activity/Vol] 8 U/L Normal 0-41 [facility] Comment on above: Performed By: #### 3 2132-1, CMP, CBCA #### [facility] ([id number]) [address], [address] [place], [place] [address] Bilirubin [Mass/Vol] 0.5 mg/dL Normal 0.3-1.2 [facility] Comment on above: Performed By: #### 3 2132-1, CMP, CBCA #### [facility] ([id number]) [address], [address] [place], [place] [address] Calcium [Mass/Vol] 8.3 mg/dL Low 8.5-10.5 [facility] Comment on above: Performed By: #### 3 2132-1, CMP, CBCA #### [facility] ([id number]) [address], [address] [place], [place] [address] Chloride [Moles/Vol] 104 mmol/L Normal 98-109 [facility] Comment on above: Performed By: #### 3 2132-1, CMP, CBCA #### [facility] ([id number]) [address], [address] [place], [place] [address] CO2 [Moles/Vol] 20 mmol/L Low 22-32 [facility] Comment on above: Performed By: #### 3 2132-1, CMP, CBCA #### [facility] ([id number]) [address], [address] [place], [place] [address] Creatinine [Mass/Vol] 0.53 mg/dL Normal 0.40-1.00 [facility] Comment on above: Result Comment: METH OD TRACEABLE TO IDMS STANDARD Performed By: #### 3 2132-1, CMP, CBCA #### [facility] ([id number]) [address], [address] [place], [place] [address] eGFR (CKD-EPI) NON-RACE DEPENDENT >90 Normal >59 [facility] Comment on above: Result Comment: Reported eGFR is based on the CKD-EPI 2020 equation that does not use a race coefficient. Performed By: #### 3 2133-1, CMP, CBCA #### [facility] ([id number]) [address], [address] [place] [address] Glucose [Mass/Vol] 115 mg/dL High 65-99 [facility] Comment on above: Performed By: #### 3 2132-1, CMP, CBCA #### [facility] ([id number]) [address], [address] [place] [address] Potassium [Moles/Vol] 3.6 mmol/L Normal 3.5-5.0 [facility] Comment on above: Performed By: #### 3 2132-1, CMP, CBCA #### [facility] ([id number]) [address], [address] [place] [address] Protein [Mass/Vol] 6.1 g/dL Normal 6.0-8.0 [facility] Comment on above: Performed By: #### 3 2132-1, CMP, CBCA #### [facility] ([id number]) [address], [address] [place] [address] Sodium [Moles/Vol] 136 mmol/L Normal 134-146 [facility] Comment on above: Performed By: #### 3 2132-1, CMP, CBCA #### [facility] ([id number]) [address], [address] [place] [address] Urea nitrogen [Mass/Vol] 3 mg/dL Low 5-23 [facility] Comment on above: Performed By: #### 3 2132-1, CMP, CBCA #### [facility] ([id number]) [address], [address] [place] [address] DRUG SCREEN, URINEon 02-07-2 024 AMPHETAMINE/METHAMP Negative Normal NEG [facility] Comment on above: Result Comment: AMPH /METH screening cut off = 1000 ng/mL Performed By: #### D GUILLEN #### [facility] ([id number]) [address], [address] [place] [address] BARBITURATES Negative Normal NEG [facility] Comment on above: Result Comment: Megan iturates screening cut off value = 200 ng/mL Performed By: #### D GUILLEN #### [facility] ([id number]) [address] [place] [address] BENZODIAZEPINES Negative Normal NEG [facility] Comment on above: Result Comment: Giorgio odiazepines screening cut off value = 200 ng/mL Performed By: #### D GUILLEN #### [facility] ([id number]) [address], [address] [place] [address] CANNABINOIDS Negative Normal NEG [facility] Comment on above: Result Comment: Elsie abinoids/THC screening cut off value = 50 ng/mL Performed By: #### D GUILLEN #### [facility] ([id number]) [address], [address] [place] [address] COCAINE METABOLITE Negative Normal NEG [facility] Comment on above: Result Comment: Coca ine screening cut off value = 300 ng/mL Performed By: #### D GUILLEN #### [facility] ([id number]) [address], [address] [place] [address] ECSTASY Negative Normal NEG [facility] Comment on above: Result Comment: Ecst asy screening cut off value = 500 ng/mL This report is intended for use in clinical monitoring or management of patients. Performed By: #### D GUILLEN #### [facility] ([id number]) [address], [address] [place] [address] METHADONE Negative Normal NEG [facility] Comment on above: Result Comment: Meth adone screening cut off value = 300 ng/mL. Performed By: #### D GUILLEN #### [facility] ([id number]) [address], [address] [place] [address] OPIATES Negative Normal NEG [facility] Comment on above: Result Comment: Opia joey screening cut off value = 300 ng/mL NOTE: This test is used for the detection of codeine, hydrocodone (>1000 ng/mL), morphine and hydromorphone (>900 ng/mL) in urine. Performed By: #### D GUILLEN #### [facility] ([id number]) [address], [address] [place] [address] OXYCODONE Negative Normal NEG [facility] Comment on above: Result Comment: Oxyc odone screening cut off value = 300 ng/mL NOTE: This test is used for the detection of oxycodone and oxymorphone in urine. Performed By: #### D GUILLEN #### [facility] ([id number]) [address], [address] [place] [address] PHENCYCLIDINE Negative Normal NEG [facility] Comment on above: Result Comment: Phen cyclidine screening cut off value = 25 ng/mL Performed By: #### D GUILLEN #### [facility] ([id number]) [address], [address] [place] [address] Glucose Glucometer (BldC) [M ass/Vol]on 02-08-2024 Glucose [Mass/Vol] 107 mg/dL High 65-99 [facility] Lactate (P melvin) [Moles/Vol]o n 02-08-2024 LACTATE W/REFLEX 1.0 mmol/L Normal 0.4-2.0 [facility] Comment on above: Result Comment: Result did not trigger repeat Lactate, re-order if needed. Performed By: #### 7 5241-0, 44798-5 #### [facility] ([id number]) [address], [address] [place] [address] LACTATE W/REFLEX 0.8 mmol/L Normal 0.4-2.0 [facility] Comment on above: Result Comment: Result did not trigger repeat Lactate, re-order if needed. Performed By: #### 3 2133-1, CMP, CBCA #### [facility] ([id number]) [address], [address] [place] [address] Procalcitonin IA [Mass/Vol]o n 02-08-2024 PROCALCITONIN 0.74 ng/mL High <0.05 [facility] Comment on above: Result Comment: NOTE <0.50 ng/mL - Low risk of severe sepsis and/or septic shock. <2.00 ng/mL - Recommend retesting within 6-24 hours. >2.00 ng/mL - High risk of sepsis and/or septic shock. Performed By: #### 7 5241-0, 29811-9 #### [facility] ([id number]) [address], [address] [place] [address] URINALYSISon 02-08-2024 Bilirubin Ql (U) Negative Normal NEG [facility] Comment on above: Performed By: #### U A #### [facility] ([id number]) [address], [address] [place] [address] BLOOD/HGB Small Abnormal NEG [facility] Comment on above: Performed By: #### U A #### [facility] ([id number]) [address] [address] [place] [address] Color (U) YELLOW Normal YELLOW [facility] Comment on above: Performed By: #### U A #### [facility] ([id number]) [address], [address] [place] [address] Glucose Ql (U) Negative Normal NEG [facility] Comment on above: Performed By: #### U A #### [facility] ([id number]) [address] [address] [place] [address] Ketones Ql (U) 20 mg/dL Abnormal NEG [facility] Comment on above: Performed By: #### U A #### [facility] ([id number]) [address], [address] [place] [address] Leukocyte esterase Test strip Ql (U) Negative Normal NEG [facility] Comment on above: Performed By: #### U A #### [facility] ([id number]) [address] [facility], [address] [place] [address] MUCOUS PRESENT Abnormal NONE [facility] Comment on above: Performed By: #### U A #### [facility] ([id number]) [address] [place] [address], [address] [place] [address] Nitrite Ql (U) Negative Normal NEG [facility] Comment on above: Performed By: #### U A #### [facility] ([id number]) [address] [place] [address], [address] [place] [address] pH (U) 8.0 [pH] Normal 5.0-8.5 [facility] Comment on above: Performed By: #### U A #### [facility] ([id number]) [address] [place] [address], [address] [place] [address] Protein Ql (U) Trace Abnormal NEG [facility] Comment on above: Performed By: #### U A #### [facility] ([id number]) [address] [place] [address], [address] [place] [address] R.B.CELLS 16 /hpf High 0-5 [facility] Comment on above: Performed By: #### U A #### [facility] ([id number]) [address] [place] [address], [address] [place] [address] Specific gravity (U) [Rel density] 1.012 Normal 1.003-1.035 [facility] Comment on above: Performed By: #### U A #### [facility] ([id number]) [facility] [address] [place] [address] SQUAMOUS EPITHELIUM 1 /hpf Normal 0-5 [facility] Comment on above: Performed By: #### U A #### [facility] ([id number]) [address], [address] [place] [address] TRANSITIONAL EPITH <1 High 0 [facility] Comment on above: Performed By: #### U A #### [facility] ([id number]) [address], [address] [place] [address] TURBIDITY CLEAR Normal CLEAR [facility] Comment on above: Performed By: #### U A #### [facility] ([id number]) [address], [address] [place] [address] Urobilinogen Qn (U) 2 {Blanca'U}/dL High <1.1 [facility] Comment on above: Performed By: #### U A #### [facility] ([id number]) [address], [address] [place] [address] W.B.CELLS 2 /hpf Normal 0-5 [facility] Comment on above: Performed By: #### U A #### [facility] ([id number]) [address], [address] [place] [address] URINE CULTUREon 02-08-2024 Bacteria identified Cx Nom (U) CULTURE RESULTS NO GROWTH AT <1000 CFU/mL Normal [facility] Comment on above: Performed By: #### 3 3-1, CMP, CBCA #### [facility] ([id number]) [address], [address] [place] [address] XR CHEST 1 VWon 02-08-2024 XR CHEST [...] MD on 02/08/2024 9:[address] [facility] URETHRITIS/DISCHARGE PLUS VA GINITIS (HTRX)on 01-27-2024 [...] Health[facility] AFP VALUE 35.9 ng/mL . [facility] COMMENT: Comment . [facility] Comment on above: Nette Holley , Ph.D., [facility] Director References: Available Upon Request. Multiples Of Median Cutoffs For AFP Elevations Rao 2.5 Black 2.8 IDD 2.0 Twins 4.5 Abbreviation Definitions IDD - Insulin Dep Diabetes OSBR - Open Spina Bifida Risk For further inquiries contact [email or web address] [facility] at [phone]. This test was developed and its performance characteristics determined by [employer] It has not been cleared or approved by the Food and Drug Administration. Performed at: - [facility] [address] [place], [place] [id number] Motor Vehicle License Clerk: Ashley Duggan [facility], Phone: [phone] GEST. AGE ON COLLECTION DATE 17.9 . weeks [facility] GESTAT. AGE BASED ON As provided . [facility] Comment on above: Recalculations are n ot recommended when gestational dating by LMP and ultrasound are within 10 days. INSULIN DEP DIABETES No . [facility] Healthcare INTERPRETATION Comment . [facility] Comment on above: Interpretation: Scre en [...] Customer Services to discuss available options. The [employer] recommends amniocentesis be offered to women age 35 and older. [age] [facility] MULTIPLE GESTATION No . [facility] ealthcare OSBR RISK 1 [place] 9540 . [facility] RACE Other . [facility] RESULTS Report . [facility] TEST RESULTS: Negative . [facility] WEIGHT 225 . lbs [facility] Healthcar e PREGNANY N N ULTRASOUND [id number] [phone] N 1 Y 225 N N N N N White/ [facility] Urinalysis macro (dipstick) panel (U)on 01-24-2024 Bilirubin, UA Negative Negative - 4(70) +++ mg/dL [facility] Blood, UA Negative Negative - 50 Slick/mcL [facility] Clarity, UA Clear [facility] Health[facility] re Color, UA Yellow [facility] Glucose, UA Negative Negative - 1999(110) ++++ mg/dL [facility] Interpretation and review of laboratory results Abnormal [facility] Ketones, UA Negative Negative - 160(16) ++++ mg/dL [facility] Leukocytes, UA Trace Negative - 500+++ Mira/mcL [facility] Nitrite, UA Negative Negative - Positive [facility] pH, UA 6.5 5 - 9 [facility] Protein, UA Negative Negative - 1999(20) ++++ mg/dL [facility] Spec Grav, UA 1.020 1 - 1.03 [facility] Urobilinogen, UA 1.0 0.2 - 12 mg/dL [facility] Urinalysis macro (dipstick) panel (U)on 01-03-2024 Bilirubin, UA Negative Negative - 4(70) +++ mg/dL [facility] Blood, UA Positive Negative - 50 Slick/mcL [facility] Comment on above: trace Clarity, UA Clear [facility] re Color, UA Yellow [facility] Glucose, UA Negative Negative - 1999(110) ++++ mg/dL [facility] Interpretation and review of laboratory results Abnormal [facility] Ketones, UA Negative Negative - 160(16) ++++ mg/dL [facility] Leukocytes, UA Positive Negative - 500+++ Mira/mcL [facility] Comment on above: small Nitrite, UA Negative Negative - Positive [facility] pH, UA 6.0 5 - 9 [facility] e Protein, UA Negative Negative - 1999(20) ++++ mg/dL [facility] Spec Grav, UA 1.020 1 - 1.03 [facility] Urobilinogen, UA 0.2 0.2 - 12 mg/dL [facility] Health[facility] No Panel InformationOrdered By: Sanaz Lockwood on 08-18-2023 Quick Strep (POC) [facility] COVID + FLU Quick Testingon 04-27-2023 SARS-CoV-2 (COVID-19) RNA J LUIS+probe Ql (Unsp spec) Negative Located [facility] Shareable Social Other COVID + FLU Quick Testing Negative [facility]ated [facility] Other Quick Strepon 04-27-2023 S. pyogenes Org specific cx Ql (Throat) Negative [facility] Other Quick Strep Located [facility] Other COVID/FLU/RSV RT-PCRon 05-10 SARS-CoV-2 (COVID-19) RNA J LUIS+probe Ql (Unsp spec) Negative [facility]ated [facility] Other COVID/FLU/RSV RT-PCR Positive [facility] Other COVID/FLU/RSV RT-PCR Negative [facility] [employer] Other CBC AUTO DIFFon 04-27-2022 BASO # 0.0 103/ul Normal 0.0-0.1 [facility] Comment on above: Performed By: #### C BC #### [facility] [address] [address] [address] Dee Humphrey Basophils/100 WBC (Bld) 0.2 % Normal 0.2-2.0 [facility] Comment on above: Performed By: #### C BC #### [facility] [address] [address] [address] Dee Humphrey EO # 0.1 103/ul Normal 0.0-0.7 [facility] Comment on above: Performed By: #### C BC #### [facility] [address] [place] [address] Dr. Dee Humphrey Eosinophils/100 WBC (Bld) 0.6 % Critically low 0.9-7.0 [facility] Comment on above: Performed By: #### C BC #### [facility] [address] [address] [address] Dee Humphrey Erythrocyte distribution width (RBC) [Ratio] 14.1 % Normal 11.0-15.0 [facility] Comment on above: Performed By: #### C BC #### [facility] [address] [place] [address] Dr. Dee Humphrey Hematocrit (Bld) [Volume fraction] 37.1 % Normal 36.0-48.0 [facility] Comment on above: Performed By: #### C BC #### [facility] [address] [address] [address] Dee Humphrey Hemoglobin (Bld) [Mass/Vol] 12.4 g/dL Normal 12.0-16.0 [facility] Comment on above: Performed By: #### C BC #### [facility] [address] [address] [address] Dee Humphrey IG # 0.06 10e3/ul Critically high 0.00-0.03 [facility] Comment on above: Performed By: #### C BC #### [facility] [address] [place] [address] Dr. Dee Humphrey IG % 0.5 % Normal 0.0-0.5 [facility] Comment on above: Performed By: #### C BC #### [facility] [address] [place] [address] Dr. Dee Humphrey LYMPH # 3.7 103/ul Normal 1.2-3.8 [facility] Comment on above: Performed By: #### C BC #### [facility] [address] [place] [address] Dr. Dee Humphrey Lymphocytes/100 WBC (Bld) 28.7 % Normal 20.5-60.0 [facility] Comment on above: Performed By: #### C BC #### [facility] [address] [place] [address] Dr. Dee Humphrey MANUAL DIFF REQ NO Normal [facility] Comment on above: Performed By: #### C BC #### [facility] [address] [place] [address] Dr. Dee Humphrey MCH (RBC) [Entitic mass] 30.2 pg Normal 26.7-34.0 [facility] Comment on above: Performed By: #### C BC #### [facility] [address] [place] [address] Dr. Dee Humphrey MCHC (RBC) [Mass/Vol] 33.4 g/dL Normal 29.9-35.2 [facility] Comment on above: Performed By: #### C BC #### [facility] [address] [place] [address] Dr. Dee Humphrey MCV (RBC) [Entitic vol] 90.5 fL Normal 81.0-99.0 [facility] Comment on above: Performed By: #### C BC #### [facility] [address] [place] [address] Dr. Dee Humphrey MONO # 0.7 103/ul Normal 0.3-0.8 [facility] Comment on above: Performed By: #### C BC #### [facility] [address] [address] [address] Dee Humphrey Monocytes/100 WBC (Bld) 5.0 % Normal 1.7-12.0 [facility] Comment on above: Performed By: #### C BC #### [facility] [address] [address] [address] Dee Humphrey NEUT # 8.5 103/ul Critically high 1.4-6.5 [facility] Comment on above: Performed By: #### C BC #### [facility] [address] [address] [address] Dee Humphrey Neutrophils/100 WBC (Bld) 65.0 % Normal 43.0-75.0 [facility] Comment on above: Performed By: #### C BC #### [facility] [address] [place] [address] Dr. Dee Humphrey Platelet mean volume (Bld) [Entitic vol] 9.6 fL Normal 9.5-13.5 [facility] Comment on above: Performed By: #### C BC #### [facility] [address] [place] [address] Dr. Dee Humphrey PLT 317 103/ul Normal 150-450 [facility] Comment on above: Performed By: #### C BC #### [facility] [address] [place] [address] Dr. Dee Humphrey RBC 4.10 106/ul Critically low 4.20-5.40 [facility] Comment on above: Performed By: #### C BC #### [facility] [address] [place] [address] Dr. Dee Humphrey WBC 13.1 103/ul Critically high 4.0-11.0 [facility] Comment on above: Performed By: #### C BC #### [facility] [address] [place] [address] ABD/PELVIS WO CONon [...] by: ROCIO CHAU Date: 2022-04-27 20:24 Normal [facility] ER URINE PROFILEon 2 Bilirubin Ql (U) Negative Normal NEGATIVE [facility] Comment on above: Performed By: #### P REGU, ERUR #### [facility] [address] [place] [address] Dr. Dee Humphrey Clarity (U) CLEAR Normal CLEAR [facility] Comment on above: Performed By: #### P REGU, ERUR #### [facility] [address] [place] [address] Dr. Dee Humphrey Color (U) YELLOW Normal YELLOW [facility] Comment on above: Performed By: #### P REGU, ERUR #### [facility] [address] [place] [address] Dr. Dee STANFORD A micrscopic examination will be performed if indicated. Normal [facility] Comment on above: Performed By: #### P REGU, ERUR #### [facility] [address] [place] [address] Dr. Dee Humphrey Glucose Ql (U) Negative Normal NEGATIVE [facility] Comment on above: Performed By: #### P REGU, ERUR #### [facility] [address] [address] [address] Dee Humphrey Hemoglobin Ql (U) Negative Normal NEGATIVE [facility] Comment on above: Performed By: #### P REGU, ERUR #### [facility] [address] [address] [address] Dee Humphrey Ketones Ql (U) Negative Normal NEGATIVE [facility] Comment on above: Performed By: #### P REGU, ERUR #### [facility] [address] [address] [address] Dee Humphrey LEUKOCYTES Negative Normal NEGATIVE [facility] Comment on above: Performed By: #### P REGU, ERUR #### [facility] [address] [place] [address] Dr. Dee Humphrey Nitrite Ql (U) Negative Normal NEGATIVE [facility] Comment on above: Performed By: #### P REGU, ERUR #### [facility] [address] [place] [address] Dr. Dee Humphrey pH (U) 5.5 [pH] Normal 5-9 [facility] Comment on above: Performed By: #### P REGU, ERUR #### [facility] [address] [place] [address] Dr. Dee Humphrey SPEC GRAVITY >=1.030 Abnormal 1.005-<=1.02 5 [facility] Comment on above: Performed By: #### P REGU, ERUR #### [facility] [address] [address] [address] Dee Humphrey UA PROTEIN Negative Normal NEGATIVE/ TRACE [facility] Comment on above: Performed By: #### P REGU, ERUR #### [facility] [address] [place] [address] Dr. Dee Humphrey UR MICRO IND NOT INDICATED Normal [facility] Comment on above: Performed By: #### P REGU, ERUR #### [facility] [address] [place] [address] Dr. Dee Humphrey Urobilinogen Qn (U) 0.2 {Blanca'U}/dL Normal 0.2 - 1. 0 [facility] Comment on above: Performed By: #### P REGU, ERUR #### [facility] [address] [place] [address] Dr. Dee Humphrey LIPASEon 04-27-2022 Lipase [Catalytic activity/Vol] 94.0 U/L Normal 73.0-393.0 [facility] Comment on above: Performed By: #### L IPA, CMP #### [facility] [address] [place] [address] Dr. Dee Humphrey URon 04-27-2022 , QUAL Negative Normal NEGATIVE [facility] Comment on above: Performed By: #### P REGU, ERUR #### [facility] [address] [place] [address] Dr. Dee Humphrey PROF 14(COMP METB)on 022 Albumin [Mass/Vol] 3.9 g/dL Normal 3.4-5.0 [facility] Comment on above: Performed By: #### L IPA, CMP #### [facility] [address] [place] [address] Dr. Dee Humphrey Albumin/Globulin [Mass ratio] 1.0 {ratio} Normal [facility] Comment on above: Performed By: #### L IPA, CMP #### [facility] [address] [place] [address] Dr. Dee Humphrey ALP [Catalytic activity/Vol] 87 U/L Normal 46-116 [facility] Comment on above: Performed By: #### L IPA, CMP #### [facility] [address] [place] [address] Dr. Dee Humphrey ALT [Catalytic activity/Vol] 31 U/L Normal 14-59 [facility] Comment on above: Performed By: #### L IPA, CMP #### [facility] [address] [place] [address] Dr. Dee Humphrey Anion gap [Moles/Vol] 10.8 mmol/L Normal [facility] Comment on above: Performed By: #### L IPA, CMP #### [facility] [address] [address] [address] Dee Humphrey AST [Catalytic activity/Vol] 17 U/L Normal 15-37 [facility] Comment on above: Performed By: #### L IPA, CMP #### [facility] [address] [address] [address] Dee Humphrey Bilirubin [Mass/Vol] 0.1 mg/dL Critically low 0.2-1.0 [facility] Comment on above: Performed By: #### L IPA, CMP #### [facility] [address] [address] [address] Dee Humphrey Calcium [Mass/Vol] 8.9 mg/dL Normal 8.5-10.1 [facility] Comment on above: Performed By: #### L IPA, CMP #### [facility] [address] [address] [address] Dee Humphrey Chloride [Moles/Vol] 103 mmol/L Normal 98-107 [facility] Comment on above: Performed By: #### L IPA, CMP #### [facility] [address] [address] [address] Dee Humphrey CO2 [Moles/Vol] 26.9 mmol/L Normal 21.0-32.0 [facility] Comment on above: Performed By: #### L IPA, CMP #### [facility] [address] [address] [address] Dee Humphrey Creatinine [Mass/Vol] 0.80 mg/dL Normal 0.55-1.02 [facility] Comment on above: Performed By: #### L IPA, CMP #### [facility] [address] [address] [address] Dee Humphrey EGFR-AF WELSH >60 Normal >=60 [facility] Comment on above: Performed By: #### L IPA, CMP #### [facility] [address] [place] [address] Dr. Dee Humphrey EGFR-NON AF WELSH >60 Normal >=60 [facility] Comment on above: Performed By: #### L IPA, CMP #### [facility] [address] [address] [address] Dee Humphrey Globulin (S) [Mass/Vol] 3.9 g/dL Normal [facility] Comment on above: Performed By: #### L IPA, CMP #### [facility] [address] [address] [address] Dee Humphrey Glucose [Mass/Vol] 96 mg/dL Normal 74-106 [facility] Comment on above: Performed By: #### L IPA, CMP #### [facility] [address] [address] [address] Dee Humphrey Potassium [Moles/Vol] 3.7 mmol/L Normal 3.5-5.1 [facility] Comment on above: Performed By: #### L IPA, CMP #### [facility] [address] [place] [address] Dr. Dee Humphrey Protein [Mass/Vol] 7.8 g/dL Normal 6.4-8.2 [facility] Comment on above: Performed By: #### L IPA, CMP #### [facility] [address] [place] [address] Dr. Dee Humphrey Sodium [Moles/Vol] 137 mmol/L Normal 136-145 [facility] Comment on above: Performed By: #### L IPA, CMP #### [facility] [address] [place] [address] Dr. Dee Humphrey Urea nitrogen [Mass/Vol] 13.0 mg/dL Normal 7.0-18.0 [facility] Comment on above: Performed By: #### L IPA, CMP #### [facility] [address] [place] [address] Dr. Dee Humphrey Urea nitrogen/Creatinine [Mass ratio] 16.2 mg/mg Normal [facility] Comment on above: Performed By: #### L IPA, CMP #### [facility] [address] [address] [address] Dee Humphrey CBC AUTO DIFFon 03-07-2022 BASO # 0.0 103/ul Normal 0.0-0.1 [facility] Comment on above: Performed By: #### C BC #### [facility] [address] [address] [address] Dee Humphrey Basophils/100 WBC (Bld) 0.3 % Normal 0.2-2.0 [facility] Comment on above: Performed By: #### C BC #### [facility] [address] [address] [address] Dee Humphrey EO # 0.1 103/ul Normal 0.0-0.7 [facility] Comment on above: Performed By: #### C BC #### [facility] [address] [address] [address] Dee Humphrey Eosinophils/100 WBC (Bld) 0.7 % Critically low 0.9-7.0 [facility] Comment on above: Performed By: #### C BC #### [facility] [address] [place] [address] Dr. Dee Humphrey Erythrocyte distribution width (RBC) [Ratio] 13.0 % Normal 11.0-15.0 [facility] Comment on above: Performed By: #### C BC #### [facility] [address] [place] [address] Dr. Dee Humphrey Hematocrit (Bld) [Volume fraction] 39.2 % Normal 36.0-48.0 [facility] Comment on above: Performed By: #### C BC #### [facility] [address] [place] [address] Dr. Dee Humphrey Hemoglobin (Bld) [Mass/Vol] 13.2 g/dL Normal 12.0-16.0 [facility] Comment on above: Performed By: #### C BC #### [facility] [address] [address] [address] Dee Humphrey IG # 0.05 10e3/ul Critically high 0.00-0.03 [facility] Comment on above: Performed By: #### C BC #### [facility] [address] [address] [address] Dee Humphrey IG % 0.5 % Normal 0.0-0.5 [facility] Comment on above: Performed By: #### C BC #### [facility] [address] [place] [address] Dr. Dee Humphrey LYMPH # 4.2 103/ul Critically high 1.2-3.8 [facility] Comment on above: Performed By: #### C BC #### [facility] [address] [place] [address] Dr. Dee Humphrey Lymphocytes/100 WBC (Bld) 43.1 % Normal 20.5-60.0 [facility] Comment on above: Performed By: #### C BC #### [facility] [address] [place] [address] Dr. Dee Humphrey MANUAL DIFF REQ NO Normal [facility] Comment on above: Performed By: #### C BC #### [facility] [address] [place] [address] Dr. Dee Humphrey MCH (RBC) [Entitic mass] 30.5 pg Normal 26.7-34.0 [facility] Comment on above: Performed By: #### C BC #### [facility] [address] [place] [address] Dr. Dee Humphrey MCHC (RBC) [Mass/Vol] 33.7 g/dL Normal 29.9-35.2 [facility] Comment on above: Performed By: #### C BC #### [facility] [address] [place] [address] Dr. Dee Humphrey MCV (RBC) [Entitic vol] 90.5 fL Normal 81.0-99.0 [facility] Comment on above: Performed By: #### C BC #### [facility] [address] [place] [address] Dr. Dee Humphrey MONO # 0.4 103/ul Normal 0.3-0.8 [facility] Comment on above: Performed By: #### C BC #### [facility] [address] [place] [address] Dr. Dee Humphrey Monocytes/100 WBC (Bld) 4.4 % Normal 1.7-12.0 [facility] Comment on above: Performed By: #### C BC #### [facility] [address] [place] [address] Dr. Dee Humphrey NEUT # 4.9 103/ul Normal 1.4-6.5 [facility] Comment on above: Performed By: #### C BC #### [facility] [address] [place] [address] Dr. Dee Humphrey Neutrophils/100 WBC (Bld) 51.0 % Normal 43.0-75.0 [facility] Comment on above: Performed By: #### C BC #### [facility] [address] [place] [address] Dr. Dee Humphrey Platelet mean volume (Bld) [Entitic vol] 9.6 fL Normal 9.5-13.5 [facility] Comment on above: Performed By: #### C BC #### [facility] [address] [place] [address] Dr. Dee Humphrey PLT 364 103/ul Normal 150-450 [facility] Comment on above: Performed By: #### C BC #### [facility] [address] [place] [address] Dr. Dee Humphrey RBC 4.33 106/ul Normal 4.20-5.40 [facility] Comment on above: Performed By: #### C BC #### [facility] [address] [place] [address] Dr. Dee Humphrey WBC 9.7 103/ul Normal 4.0-11.0 [facility] Comment on above: Performed By: #### C BC #### [facility] [address] [place] [address] Dr. Dee Humphrey LACTATE/LACTIC ACIDon 2021 Lactate [Moles/Vol] 1.1 mmol/L Normal 0.4-1.9 [facility] Comment on above: Performed By: #### P LORETTA AUGUSTINR #### [facility] [address] [place] [address] Dr. Dee Humphrey LIPASEon 03-07-2022 Lipase [Catalytic activity/Vol] 79.0 U/L Normal 73.0-393.0 [facility] Comment on above: Performed By: #### C MP, LIPA #### [facility] [address] [address] [address] Dee Humphrey PROF 14(COMP METB)on 022 Albumin [Mass/Vol] 3.8 g/dL Normal 3.4-5.0 [facility] Comment on above: Performed By: #### C MP, LIPA #### [facility] [address] [place] [address] Dr. Dee Humphrey Albumin/Globulin [Mass ratio] 0.9 {ratio} Normal [facility] Comment on above: Performed By: #### C MP, LIPA #### [facility] [address] [place] [address] Dr. Dee Humphrey ALP [Catalytic activity/Vol] 80 U/L Normal 46-116 [facility] Comment on above: Performed By: #### C MP, LIPA #### [facility] [address] [place] [address] Dr. Dee Humphrey ALT [Catalytic activity/Vol] 27 U/L Normal 14-59 [facility] Comment on above: Performed By: #### C MP, LIPA #### [facility] [address] [place] [address] Dr. Dee Humphrey Anion gap [Moles/Vol] 9.5 mmol/L Normal [facility] Comment on above: Performed By: #### C MP, LIPA #### [facility] [address] [place] [address] Dr. Dee Humphrey AST [Catalytic activity/Vol] 13 U/L Critically low 15-37 [facility] Comment on above: Performed By: #### C MP, LIPA #### [facility] [address] [place] [address] Dr. Dee Humphrey Bilirubin [Mass/Vol] 0.1 mg/dL Critically low 0.2-1.0 [facility] Comment on above: Performed By: #### C MP, LIPA #### [facility] [address] [place] [address] Dr. Dee Humphrey Calcium [Mass/Vol] 9.0 mg/dL Normal 8.5-10.1 [facility] Comment on above: Performed By: #### C MP, LIPA #### [facility] [address] [place] [address] Dr. Dee Humphrey Chloride [Moles/Vol] 103 mmol/L Normal 98-107 [facility] Comment on above: Performed By: #### C MP, LIPA #### [facility] [address] [place] [address] Dr. Dee Humphrey CO2 [Moles/Vol] 27.1 mmol/L Normal 21.0-32.0 [facility] Comment on above: Performed By: #### C MP, LIPA #### [facility] [address] [place] [address] Dr. Dee Humphrey Creatinine [Mass/Vol] 0.86 mg/dL Normal 0.55-1.02 [facility] Comment on above: Performed By: #### C MP, LIPA #### [facility] [address] [place] [address] Dr. Dee Humphrey EGFR-AF WELSH >60 Normal >=60 [facility] Comment on above: Performed By: #### C MP, LIPA #### [facility] [address] [place] [address] Dr. Dee Humphrey EGFR-NON AF WELSH >60 Normal >=60 [facility] Comment on above: Performed By: #### C MP, LIPA #### [facility] [address] [place] [address] Dr. Dee Humphrey Globulin (S) [Mass/Vol] 4.1 g/dL Normal [facility] Comment on above: Performed By: #### C MP, LIPA #### [facility] [address] [place] [address] Dr. Dee Humphrey Glucose [Mass/Vol] 99 mg/dL Normal 74-106 [facility] Comment on above: Performed By: #### C MP, LIPA #### [facility] [address] [place] [address] Dr. Dee Humphrey Potassium [Moles/Vol] 3.6 mmol/L Normal 3.5-5.1 [facility] Comment on above: Performed By: #### C MP, LIPA #### [facility] [address] [place] [address] Dr. Dee Humphrey Protein [Mass/Vol] 7.9 g/dL Normal 6.4-8.2 [facility] Comment on above: Performed By: #### C MP, LIPA #### [facility] [address] [address] [address] Dee Humphrey Sodium [Moles/Vol] 136 mmol/L Normal 136-145 [facility] Comment on above: Performed By: #### C MP, LIPA #### [facility] [address] [place] [address] Dr. Dee Humphrey Urea nitrogen [Mass/Vol] 12.0 mg/dL Normal 7.0-18.0 [facility] Comment on above: Performed By: #### C MP, LIPA #### [facility] [address] [place] [address] Dr. Dee Humphrey Urea nitrogen/Creatinine [Mass ratio] 14.0 mg/mg Normal [facility] Comment on above: Performed By: #### C MP, LIPA #### [facility] [address] [place] [address] Dr. Dee Humphrey Consent for COVID Vaccineon 08-09-2020 SARS-CoV-2 (COVID-19) RNA J LUIS+probe Ql (Unsp spec) [id number]:127 Normal [facility] Consent for Treatmenton 07-30 Consent for Treatment [id number] .[id number]:127 Normal [facility] Coding Summary.on 08-07-2020 Coding Summary. CODING DATE: 08/07/2020 FINAL [facility] STATUS: PAYOR: Luzma APC DESCRIPTION [id number] [...] Yana Paredes Date Saved: 08/07/2020 02:46 pm [facility] Ambulatory Clinical Summaryo n 03-25-2020 Ambulatory Clinical Summary {[id number] [facility] Patient Educationon 03-19-20 Patient Education lurasidone (ilene [...] ? an antiviral such as ritonavir; ? [place]'s wort; or ? seizure medicine such as [...] irritable, agitate (more content not included)... Normal [facility] Video Visit - Telehealtho n 02-23-2020 [...] interactive video communications from my office using K[employer] due to the restrictions of the COVID-19 pandemic. No physical exam was conducted other than those areas of the body visible to telecommunications with the patient located at [address] [place] [address], with no one else in attendance. If [...] age (more content not included)... Normal [facility] Comment on above: Result Comment: Elec tronically Signed By: Deepa [facility], Maia Ashley\.br\Date and Time Signed: 02/22/20 23:17 [...] interactive video communications from my office using Qianmi due to the restrictions of the COVID-19 pandemic. No physical exam was conducted other than those areas of the body visible to telecommunications with the patient located at [address] [place] [phone], with no one else in attendance. If [...] Depres (more content not included)... Normal [facility] Comment on above: Result Comment: Elec tronically Signed By: Deepa [facility]ia.mati\Date and Time Signed: 02/11/20 14:46 EDT Video [...] telecommunications with the patient located at [address] [place] [phone], with no one else in attendance. If [...] Denies (more content not included)... Normal [facility] Comment on above: Result Comment: Elec tronically Signed By: Deepa [facility], Maia Montero.[email or web address]\Date and Time Signed: 02/11/20 14:37 [...] interactive video communications from my office using [employer]ian[employer] due to the restrictions of the COVID-19 pandemic. No physical exam was conducted other than those areas of the body visible to telecommunications with the patient located at [address] [place] [phone], with no one else in attendance. If [...] F (more content not included)... Normal [facility] Comment on above: Result Comment: Elec tronically Signed By: Deepa [facility] NETWORKMaia Valle.[email or web address]\Date and Time Signed: 01/29/20 21:44 EDT [...] interactive video communications from my office using [employer]ian[employer] due to the restrictions of the COVID-19 pandemic. No physical exam was conducted other than those areas of the body visible to telecommunications with the patient located at [address] [place] [phone], with no one else in attendance. If [...] Yes, (more content not included)... Normal [facility] Comment on above: Result Comment: Elec tronically Signed By: Deepa [facility], Maia K\.br\Date and Time Signed: 01/29/20 21:38 [...] include drow (more content not included)... Normal [facility] Video Visit - Telehealtho n 01-13-2020 [...] interactive video communications from my office using Qianmi due to the restrictions of the COVID-19 pandemic. No physical exam was conducted other than those areas of the body visible to telecommunications with the patient located at [address] [place] [address], with no one else in attendance. If [...] For (more content not included)... Normal [facility] Comment on above: Result Comment: Elec tronically Signed By: Deepa [facility], Maia Montero.[email or web address]\Date and Time Signed: [...] include drow (more content not included)... Normal [facility] Video Visit - Telehealtho n 01-07-2020 [...] interactive video communications from my office using [employer]ian[employer] due to the restrictions of the COVID-19 pandemic. No physical exam was conducted other than those areas of the body visible to telecommunications with the patient located at [address] [place] [address], with no one else in attendance. If [...] N (more content not included)... Normal [facility] Comment on above: Result Comment: Elec tronically Signed By: Deepa [facility], Maia Montero.br\Date and Time Signed: 01/07/20 12:38 [...] interactive video communications from my office using [employer]ianmi due to the restrictions of the COVID-19 pandemic. No physical exam was conducted other than those areas of the body visible to telecommunications with the patient located at [address] [place] [phone], with no one else in attendance. If [...] Alcoholism: Father and (more content not included)... [facility] Comment on above: Result Comment: Elec tronically Signed By: Deepa [facility].mati\Date and Time Signed: 12/30/19 13:50 EDT Video [...] interactive video communications from my office using Qianmi due to the restrictions of the COVID-19 pandemic. No physical exam was conducted other than those areas of the body visible to telecommunications with the patient located at [address] [place] [address] [phone], with no one else in attendance. If [...] U (more content not included)... Normal [facility] Comment on above: Result Comment: Elec tronically Signed By: Deepa [facility], Maia Ashley\.mati\Date and Time Signed: 12/23/19 16:54 [...] include drow (more content not included)... Normal [facility] Video Visit - Telehealtho n 12-04-2019 [...] interactive video communications from my office using [employer]ian[employer] due to the restrictions of the COVID-19 pandemic. No physical exam was conducted other than those areas of the body visible to telecommunications with the patient located at [address] [place] [address], with no one else in attendance. If [...] 5 (more content not included)... Normal [facility] Comment on above: Result Comment: Elec tronically Signed By: Deepa [facility].mati\Date and Time Signed: 12/04/19 09:42 EDT Patient [...] h (more content not included)... Normal [facility] Vital Signs Date Time Vital Sign Value Performing Clinician Facility 05-13-2024 15:04-0500 Body mass index (BMI) [Ratio] 41.67 kg/m2 Liza ANTONIO Work Phone: [facility] 05-13-2024 15:04-0500 Body weight 103.33 kg Liza ANTONIO Work Phone: [facility] 05-13-2024 15:04-0500 Diastolic blood pressure 82 mm[Hg] Liza ANTONIO Work Phone: [facility] 05-13-2024 15:04-0500 Systolic blood pressure 140 mm[Hg] Liza ANTONIO Work Phone: [facility] 04-03-2024 13:59-0500 Body mass index (BMI) [Ratio] 42.07 kg/m2 Johnathan Jorje DO Work Phone: [facility] 04-03-2024 13:59-0500 Body weight 104.33 kg Johnathan Jorje DO Work Phone: [facility] 04-03-2024 13:59-0500 Diastolic blood pressure 78 mm[Hg] Johnathan Jorje DO Work Phone: [facility] 04-03-2024 13:59-0500 Systolic blood pressure 110 mm[Hg] Johnathan Jorje DO Work Phone: [facility] 03-21-2024 14:01-0500 Body mass index (BMI) [Ratio] 41.7 kg/m2 Liza ANTONIO Work Phone: [facility] 03-21-2024 14:01-0500 Body weight 103.42 kg Liza Tallapoosa PA Work Phone: [facility] 03-21-2024 14:01-0500 Diastolic blood pressure 72 mm[Hg] Liza Tallapoosa PA Work Phone: [facility] 03-21-2024 14:01-0500 Systolic blood pressure 112 mm[Hg] Liza Tallapoosa PA Work Phone: [facility] 03-11-2024 14:26-0500 Body mass index (BMI) [Ratio] 41.96 kg/m2 Liza Kt PA Work Phone: [facility] 03-11-2024 14:26-0500 Body weight 104.06 kg Liza Kt PA Work Phone: [facility] 03-11-2024 14:26-0500 Diastolic blood pressure 70 mm[Hg] Liza Tallapoosa PA Work Phone: [facility] 03-11-2024 14:26-0500 Systolic blood pressure 120 mm[Hg] Liza Kt PA Work Phone: [facility] 03-06-2024 11:20-0500 Body mass index (BMI) [Ratio] 41.34 kg/m2 Johnathan Jorje DO Work Phone: [facility] 03-06-2024 11:20-0500 Body weight 102.51 kg Johnathan Jorje DO Work Phone: [facility] 03-06-2024 11:20-0500 Diastolic blood pressure 68 mm[Hg] Johnathan Jorje DO Work Phone: [facility] 03-06-2024 11:20-0500 Systolic blood pressure 120 mm[Hg] Johnathan Jorje DO Work Phone: [facility] 02-21-2024 13:57-0400 Body mass index (BMI) [Ratio] 41.3 kg/m2 Johnathan Jorje DO Work Phone: [facility] 02-21-2024 13:57-0400 Body weight 102.42 kg Johnathan Jorje DO Work Phone: [facility] 02-21-2024 13:57-0400 Diastolic blood pressure 70 mm[Hg] Johnathan Jorje DO Work Phone: [facility] 02-21-2024 13:57-0400 Systolic blood pressure 100 mm[Hg] Johnathan Jorje DO Work Phone: [facility] 02-15-2024 13:03-0400 Body height 160 cm Malena Cardona MD Work Phone: [facility] 02-15-2024 13:03-0400 Body mass index (BMI) [Ratio] 39.65 kg/m2 Malena Cardona MD Work Phone: [facility] 02-15-2024 13:03-0400 Body weight 101.52 kg Malena Cardona MD Work Phone: [facility] 02-15-2024 13:03-0400 Diastolic blood pressure 74 mm[Hg] Malena Cardona MD Work Phone: [facility] 02-15-2024 13:03-0400 Heart rate 94 /min Malena Cardona MD Work Phone: [facility] 02-15-2024 13:03-0400 Systolic blood pressure 123 mm[Hg] Malena Cardona MD Work Phone: [facility] 01-24-2024 11:57-0400 Body mass index (BMI) [Ratio] 41.15 kg/m2 Johnathan Jorje DO Work Phone: [facility] 01-24-2024 11:57-0400 Body weight 102.06 kg Johnathan Jorje DO Work Phone: [facility] 01-24-2024 11:57-0400 Diastolic blood pressure 78 mm[Hg] Johnathan Jorje DO Work Phone: [facility] 01-24-2024 11:57-0400 Systolic blood pressure 124 mm[Hg] Johnathan Jorje DO Work Phone: [facility] 01-03-2024 15:02-0400 Body mass index (BMI) [Ratio] 42.07 kg/m2 Liza Duque PA Work Phone: [facility] 01-03-2024 15:02-0400 Body weight 104.33 kg Liza Kt PA Work Phone: [facility] 01-03-2024 15:02-0400 Diastolic blood pressure 74 mm[Hg] Liza Tallapoosa PA Work Phone: [facility] 01-03-2024 15:02-0400 Systolic blood pressure 122 mm[Hg] Liza Corderoey PA Work Phone: [facility] 12-25-2023 11:22-0400 Body mass index (BMI) [Ratio] 40.79 kg/m2 Johnathan Jorje DO Work Phone: [facility] 12-25-2023 11:22-0400 Body weight 101.15 kg Johnathan Jorje DO Work Phone: [facility] 12-25-2023 11:22-0400 Diastolic blood pressure 76 mm[Hg] Johnathan Jorje DO Work Phone: [facility] 12-25-2023 11:22-0400 Systolic blood pressure 122 mm[Hg] Johnathan Jorje DO Work Phone: [facility] 08-18-2023 14:24-0400 Body height 160.02 cm [facility] 08-18-2023 14:24-0400 Body mass index (BMI) [Ratio] 40.2 kg/m2 [facility] 08-18-2023 14:24-0400 Body temperature 98.4 [degF] [facility] 08-18-2023 14:24-0400 Body weight 103.02 kg [facility] 08-18-2023 14:24-0400 Diastolic blood pressure 81 mm[Hg] [facility] 08-18-2023 14:24-0400 Heart rate 101 /min [facility] 08-18-2023 14:24-0400 Respiratory rate 16 /min [facility] 08-18-2023 14:24-0400 SaO2% (BldA) [Mass fraction] 98 % [facility] 08-18-2023 14:24-0400 Systolic blood pressure 133 mm[Hg] [facility] 04-27-2023 16:30-0500 Body height 160.02 cm Sanaz Lockwood Other [employer] [facility] [employer] Other 04-27-2023 16:30-0500 Body mass index (BMI) [Ratio] 40.92 kg/m2 Sanaz Lockwood Other [employer] Other 04-27-2023 16:30-0500 Body temperature 98.2 [degF] Sanaz Lockwood Other [employer] Other 04-27-2023 16:30-0500 Body weight 104.78 kg Sanaz Lockwood Other Brigade Other 04-27-2023 16:30-0500 Respiratory rate 18 /min Sanaz Lockwood Other [employer] Other 04-27-2023 16:30-0500 SaO2% (BldA) [Mass fraction] 99 % Sanaz Lockwood Other [employer] Other 05-10-2022 14:45-0500 Body height 160.02 cm Kaylah Han Other Brigade Other 05-10-2022 14:45-0500 Body mass index (BMI) [Ratio] 38.97 kg/m2 Kaylah Han Other Brigade Other 05-10-2022 14:45-0500 Body temperature 99.3 [degF] Kaylah Han Other [employer] Other 05-10-2022 14:45-0500 Body weight 99.79 kg Kaylah Han Other Brigade Other 06-29-2019 22:40-0500 Pulse (Heart Rate) 84 /min [facility] 06-29-2019 22:40-0500 Pulse Oximetry 97 % [facility] 06-29-2019 22:35-0500 BP Diastolic 56 mm[Hg] [facility] 06-29-2019 22:35-0500 BP Systolic 100 mm[Hg] [facility] 06-29-2019 21:11-0500 BMI (Body Mass Index) 33.1 kg/m2 [facility] 06-29-2019 21:11-0500 Body Temperature 97.8 [degF] [facility] 06-29-2019 21:11-0500 Body weight 84.8 kg [facility] 06-29-2019 21:11-0500 Height 160.02 cm [facility] 06-29-2019 21:11-0500 Respiratory Rate 20 /min [facility] Encounters Encounter Date Encounter Type [...] Start: 04-22-2024 End: 04-22-2024 ambulatory Johnathan Jorje Facility:[facility] Start: 04-03-2024 End: 04-03-2024 Bamboo flowsheet [...] Result Encounter Johnathan Jorje DO Work Phone: [facility] External Department Unsolicited Start: 03-21-2024 End: 03-21-2024 ambulatory LIZA DUQUE Not Available Start: 03-21-2024 End: 03-21-2024 flow sheet Liza ANTONIO Work Phone: [facility] Comment on above: Second trimester pre gnancy; 26 weeks gestation of ; Elevated glucose tolerance test; Gestational diabetes mellitus (GDM), antepartum, gestational diabetes method of control unspecified Start: 03-14-2024 End: 03-14-2024 ambulatory [facility] Start: 03-11-2024 End: 03-11-2024 Bamboo flowsheet Liza ANTONIO Work Phone: [facility] Start: 03-11-2024 End: 03-11-2024 Bamboo flowsheet Liza ANTONIO Work Phone: [facility] Start: 03-11-2024 End: 03-11-2024 ambulatory LIZA DUQUE Not Available Start: 03-11-2024 End: 03-11-2024 flow sheet Liza ANTONIO Work Phone: [facility] Comment on above: 24 weeks gestation o f ; Second trimester ; Acute cystitis with hematuria Start: 03-06-2024 End: 03-06-2024 Clinisync Result Encounter Johnathan Jorje DO Work Phone: [facility] External Department Unsolicited Start: 03-06-2024 End: 03-06-2024 Clinisync Result Encounter Johnathan Jorje DO Work Phone: [facility] External Department Unsolicited Start: 03-06-2024 End: 03-06-2024 ambulatory JOHNATHAN JORJE Not Available Start: 03-06-2024 End: 03-06-2024 flow sheet Johnathan Jorje DO Work Phone: [facility] Comment on above: 24 weeks gestation o f ; Second trimester ; Flank pain; Acute cystitis with hematuria Start: 02-26-2024 End: 02-26-2024 ambulatory [facility] Start: 02-21-2024 End: 02-21-2024 Bamboo flowsheet Johnathan [...] MD Work Phone: [facility] Comment on above: 21 weeks gestation o f (Primary Dx); Multigravida of advanced maternal age in second trimester; Pyelonephritis affecting in second trimester; Bipolar disease during in second trimester (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 Comment on above: 21 weeks gestation o f (Primary Dx); Obesity affecting in second trimester, unspecified obesity type Start: 02-15-2024 End: 02-15-2024 ambulatory JOHNATHAN Niño [facility] Start: 02-09-2024 End: 02-09-2024 Evaluation and management of inpatient TEJ ZENG [facility] Start: 02-08-2024 End: 02-09-2024 Evaluation and management of inpatient NATO LLOYD [facility] Start: 01-24-2024 End: 01-24-2024 Bamboo flowsheet [...] Not Available Start: 08-18-2023 End: 08-18-2023 ambulatory [facility] Work Phone: Start: 08-18-2023 End: 08-18-2023 Patient encounter procedure [facility] Physician [facility] Work Phone: Start: 04-27-2023 End: 04-27-2023 ambulatory Sanaz Lockwood Other Brigade Other Start: 04-27-2023 Office outpatient vi sit 25 minutes Sanaz Lockwood [facility] Start: 05-10-2022 End: 05-10-2022 ambulatory Kaylah Han Other Brigade Other Start: 05-10-2022 Office outpatient ne w 20 minutes Kaylahpedrito Han [facility] Start: 04-27-2022 End: 04-27-2022 ambulatory KIMBERLYN XIE Facility:[facility] Start: 03-07-2022 End: 03-07-2022 ambulatory KIMBERLYN XIE Facility:[facility] Start: 09-23-[address] JAZIEL HILL Facility :[facility] Start: 06-29-2019 End: 06-29-2019 Emergency department patient visit Kimberlyn Xie [facility] Procedures Date Procedure Procedure Detail Performing Clinician Start: 05-13-2024 Urnls dip stick/tablet rgnt non-auto w/o micrscp Liza ATNONIO Work Phone: Start: 04-22-2024 [facility] UA (CLEAN/CATCH) CURRENCY EXCHANGE SPECIALIST/MICRO IF IND. Johnathan Riverao DO Work Phone: [...] Work Phone: Start: 03-06-2024 [facility] UA (CLEAN/CATCH) CURRENCY EXCHANGE SPECIALIST/MICRO IF IND. Johnathan Jorje DO Work Phone: [...] dip stick/tablet rgnt non-auto w/o micrscp Liza NATONIO Work Phone: Start: 08-18-2023 Quick Strep (POC) Plan of Treatment Date Care Activity Detail Author Start: 01-23-2027 Screening for malign ant neoplasm of cervix [facility] Start: 02-14-2025 Adult BMI Screening Adult BMI Screen ing [facility] Start: 02-14-2025 Tobacco Screening Tobacco Screening [facility] Start: 02-14-2025 End: 02-14-2025 US MFM with or without consult US MFM with or without consult Imaging Routine 21 weeks gestation of Obesity affecting in second trimester, unspecified obesity type Expected: 02/14/2025 (Approximate), Expires: 02/14/[address] [facility] Work Phone: Comment on above: Expected: 02/14/2025 (Approximate), Expires: 02/14/2025 Start: 05-22-2024 End: 05-22-2024 Patient encounter procedure 05/22/2024 2:20 PM EST Routine [facility] [address] [place] [id number] Johnathan Recinos, [address] [place] [address] [facility] Start: 05-13-2024 End: 05-13-2025 US biophysical profile w non stress test US biophysical profile w non stress test Imaging Routine Elevated blood pressure complicating in third trimester, antepartum Gestational diabetes mellitus (GDM) in third trimester, gestational diabetes method of control unspecified Expected: 05/13/2024 (Approximate), Expires: 05/13/2025 [facility] Work Phone: Comment on above: Expected: 05/13/2024 (Approximate), Expires: 05/13/2025 Start: 05-09-2024 End: 05-09-2024 Professional / ancillary services management 05/09/2024 8:30 AM EST Ancillary Procedure [facility] [address] [place] [phone] [facility] Start: 04-03-2024 End: 04-03-2024 Patient encounter procedure [facility] Comment on above: Arrived Start: 04-03-2024 End: 04-03-2024 Professional / ancillary services management 04/03/2024 1:00 PM EST Ancillary Procedure [facility] [address] [place] [phone] [facility] Start: 03-21-2024 End: 03-21-2025 Measurement of glucose 3 hours after glucose challenge for glucose tolerance test Glucose tolerance, 3 hours Lab Routine Elevated glucose tolerance test Expected: 03/21/2024 (Approximate), Expires: 03/21/2025 [facility] Work Phone: Comment on above: Expected: 03/21/2024 (Approximate), Expires: 03/21/2025 Start: 03-21-2024 End: 03-21-2025 US for US OB SCAN FOR GROWTH Imaging Routine Gestational diabetes mellitus (GDM), antepartum, gestational diabetes method of control unspecified Expected: 03/21/2024 (Approximate), Expires: 03/21/2025 [facility] Comment on above: Expected: 03/21/2024 (Approximate), Expires: 03/21/2025 Start: 03-21-2024 End: 03-21-2024 Patient encounter procedure 03/21/2024 1:30 PM EST Routine [facility] [address] [place] [phone] Liza Duque PA [address] [place] [address] [facility] Start: 03-14-2024 End: 03-14-2024 Patient encounter procedure 03/14/2024 9:[address] [facility] Imaging [address] [place] [phone] [facility] Start: 02-22-2024 End: 02-22-2024 Patient encounter procedure 02/22/2024 10:15 AM EDT Appointment [facility] [place] [address] [place] [address] [facility] [place] Start: 02-21-2024 End: 02-20-2025 CBC panel - Blood by Automated count CBC Lab Routine Diabetes mellitus screening Expected: 02/21/2024 (Approximate), Expires: 02/20/2025 [facility] Work Phone: Comment on above: Expected: 02/21/2024 (Approximate), Expires: 02/20/2025 Start: 02-21-2024 End: 02-20-2025 Measurement of glucose 1 hour after glucose challenge for glucose tolerance test Glucose tolerance, 1 hour Lab Routine Diabetes mellitus screening Expected: 02/21/2024 (Approximate), Expires: 02/20/2025 [facility] Comment on above: Expected: 02/21/2024 (Approximate), Expires: 02/20/2025 Start: 02-21-2024 End: 02-21-2024 Patient encounter procedure 02/21/2024 1:50 PM EDT Routine [facility] [address] [place] [phone] Johnathan Recinos, DO [address] [place] [address] [facility] Start: 01-24-2024 End: 02-23-2024 Alpha fetoprotein, maternal Alpha fetoprotein, maternal Lab Routine 18 weeks gestation of Expected: 01/24/2024 (Approximate), Expires: 02/23/2024 [facility] Comment on above: Expected: 01/24/2024 (Approximate), Expires: 02/23/2024 Start: 01-22-2024 End: 01-22-2024 Patient encounter procedure 01/22/2024 10:20 AM EDT Routine [facility] [address] [place] [phone] Johnathan Recinos, DO [address] [place] [address] [facility] Start: 12-31-2023 COVID-19 Vaccine ( season) COVID-19 Vaccine ( season) [facility] Start: 12-31-2023 Influenza vaccination P [facility] Start: 10-11-2021 DTaP,Tdap and Td Vaccines (2 - Td or Tdap) DTaP,Tdap and Td Vaccines (2 - Td or Tdap) [facility] Start: 2017 Screening for malign ant neoplasm of cervix [facility] Start: 2008 Screening for malign ant neoplasm of cervix Pap Smear [facility] Start: 2005 Adult BMI Follow Up Plan Adult BMI Follow Up Plan [facility] Start: 1999 Depression Screening Depression Scre ening [facility] Bacteria identified in Urine by Culture Urine culture Microbiology Routine 24 weeks gestation of Second trimester Ordered: 03/06/2024 [facility] Work Phone: Comment on above: Ordered: 03/06/2024 Bacteria identified in Urine by Culture Urine culture Microbiology Routine Flank pain Acute cystitis with hematuria Urinary tract infection without hematuria, site unspecified Ordered: 04/03/2024 [facility] Work Phone: Comment on above: Ordered: 04/03/2024 CHLAMYDIA TRACHOMATI S (GENITO/STI) CHLAMYDIA TRACHOMATIS (GENITO/STI) Lab Routine Exposure to STD Ordered: 01/24/2024 [facility] Comment on above: Ordered: 01/24/2024 Cytology Cervical or vaginal smear or scraping study Pap Smear Pathology and Cytology Routine Well woman exam with routine gynecological exam Ordered: 01/24/2024 [facility] Comment on above: Ordered: 01/24/2024 Human papilloma viru s DNA [Presence] in Unspecified specimen by Probe with amplification HPV DNA probe, amplified Microbiology Routine Well woman exam with routine gynecological exam Ordered: 01/24/2024 [facility] Comment on above: Ordered: 01/24/2024 Neisseria gonorrhoea e DNA [Presence] in Unspecified specimen by J LUIS with probe detection Neisseria gonorrhea DNA probe, direct Lab Routine Exposure to STD Ordered: 01/24/2024 [facility] Comment on above: Ordered: 01/24/2024 Patient Education Epinephrine (B y injection) Anaphylaxis (ED) General Allergic Reaction (ED) [facility] Patient referral [facility] SURESWAB(R) ADVANCED VAGINITIS PLUS, TMA SURESWAB(R) ADVANCED VAGINITIS PLUS, TMA Pathology and Cytology Routine Vaginal discharge Ordered: 01/24/2024 [facility] Work Phone: Comment on above: Ordered: 01/24/2024 Immunizations Immunization Date Immunization Notes Care Provider Butch sims 06-02-2008 influenza virus vacc ine, unspecified formulation Johnathan Recinos DO Work Phone: [facility] Payers Date Payer Category Payer Self-pay [id number] 2024 [facility] [id number] 2024 Medicaid [id number] 2023 [facility] er [id number] 2023 [facility] Managed Care - O ANTHEM [id number] 2023 Unknown BCBS BCBS [id number] [id number] 2023-Present [phone] [address] [place] [id number] 1987 Unknown [id number] 2.16.840.1.397041.3.579.2 .593 1987 Unknown [id number] 2.16.840.1.791564.3.579.2 .593 1987 Unknown [id number] 2.16.840.1.229375.3.579.2 .593 1987 Unknown [id number] 2.16.840.1.241957.3.579.2 .1286 1987 Unknown [id number] 2.16.840.1.653151.3.579.2 .1286 1987 Unknown [id number] 2.16.840.1.786693.3.579.2 .1286 1987 Unknown [id number] 2.16.840.1.473731.3.579.2 .1286 1987 Unknown [id number] 2.16.840.1.962255.3.579.2 .6 1987 Unknown [id number] 2.16.840.1.980958.3.579.2 .1286 1987 Unknown [id number] 2.16.840.1.056961.3.579.2 .9 1987 Unknown [id number] 2.16.840.1.194470.3.579.2 .9 1987 Unknown [id number] 2.16.840.1.228675.3.579.2 .9 1987 Unknown [id number] 2.16.840.1.271471.3.579.2 .9 1987 Unknown [id number] 2.16.840.1.982691.3.579.2 .1258 1987 Unknown [id number] 2.16.840.1.478751.3.579.2 .9 1987 Unknown [id number] 2.16.840.1.788849.3.579.2 .9 1987 Unknown [id number] 2.16.840.1.652970.3.579.2 .9 1987 Unknown [id number] 2.16.840.1.726642.3.579.2 .1258 1987 Unknown [id number] 2.16.840.1.015585.3.579.2 .9 1987 Unknown [id number] 2.16.840.1.358654.3.579.2 .9 1959 Self-pay [id number] 1959 Unknown [id number] Private Health Insurance [id number] Unknown [id number] 2.16.840.1.597915.3.579.2 .531 Social History Date Type Detail Facility Start: 06-29-2019 End: 08-18-2023 Tobacco smoking status [facility] Smoker (finding) [facility] Start: 1985 Sex Assigned At Female [facility] Start: 06-10-2020 End: 02-15-2024 Sex Assigned At Brigade Other Start: 02-15-2024 Tobacco smoking status OKIS Ex-smoker [facility] Start: 02-15-2024 Tobacco use and exposure Smokeless tobacco non-user [facility] Start: 02-15-2024 Alcoholic beverage intake Lifetime non-drinker (finding) [facility] Start: 06-10-2020 End: 02-15-2024 History of Social function [facility] Childcare Unknown [facility] Start: 02-15-2024 Tobacco Comment PT IS A VAPER [facility] BOOK A TIGER [facility] tem Start: 10-03-2023 [facility] Start: 1987 Sex assigned at Not on file [facility] BOOK A TIGER [facility] Start: 12-02-2014 Sex Female (finding) [facility] BOOK A TIGER [facility] tem Start: 02-08-2024 Sexual orientation Heterosexual (finding) [facility] Tobacco smoking stat [facility] Tobacco smoking consumption unknown [facility] Start: 10-26-2023 Gender identity Identifies as female gender (finding) [facility] Medical Equipment Procedure Code Equipment Code Equipment Original Text Equipment Identifier Dates 1 strip by In Vi tro route Daily Use in the morning prior to breakfast, 1 hour after each meal for a total of 4times daily. [id number] Start: 03-25-2024 End: 04-24-2024 1 each by In Vit ro route Daily Use to check FSBS four times daily [id number] Start: 03-25-2024 End: 04-24-2024 Inject 1 each un vickie the skin See administration instructions Use four times daily with insulin pen. [id number] Start: 05-13-2024 End: 06-12-2024 Goals Date Patient [...] 81 mg, Daily Blood Glucose Monitoring Suppl ([employer] Glucometer) w/Device kit 1 kit, Does not [...] nursing note reviewed. Exam conducted with a pre sales technical engineer present. Vitals: Estimated body mass index is [...] Johnathan Recinos DO documented in this encounter [facility] 04-03-2024 History of Present illness Narrative Reason [...] Medical History: Diagnosis Date Bipolar [address] disorder [address]) HISTORY PAST MEDICAL HISTORY SOCIAL HISTORY Past Medical History: Diagnosis Date Bipolar [address] disorder [address]) Social History Tobacco Use Smoking status: Not [...] nursing note reviewed. Exam conducted with a pre sales technical engineer present. Vitals: Estimated body mass index is [...] Johnathan Recinos DO documented in this encounter [facility] 03-21-2024 History of Present illness Narrative Reason [...] Medical History: Diagnosis Date Bipolar 1 disorder ([facility]) HISTORY PAST MEDICAL HISTORY SOCIAL HISTORY Past [...] hour glucose order to have done at [facility]. Patient DECLINES 3 hour gtt and would like to start testing FSBS--Patient will be referred to Diabetic Edu at [facility]. Follow Up: Patient is to return to office in 2 week for routine OB appointment. Documented by Nettie Frazier MA on behalf of: PACO Freed documented in this encounter [facility] 03-11-2024 History of Present illness Narrative Reason [...] nursing note reviewed. Exam conducted with a pre sales technical engineer present. Vitals: Estimated body mass index is [...] of . Nursing will reach out to [facility] to inquire about culture results. Patient does have follow up appointment with Maternal Medicine. Patient to return to clinic in 4 weeks for routine OB appointment. Documented by Barbara Guillermo LPN on behalf of: PACO Freed documented in this encounter [facility] 03-06-2024 History of Present illness Narrative Reason [...] nursing note reviewed. Exam conducted with a pre sales technical engineer present. Vitals: Estimated body mass index is [...] Johnathan Recinos DO documented in this encounter [facility] 02-21-2024 History of Present illness Narrative Reason [...] Medical History: Diagnosis Date Bipolar 1 disorder ([facility]) HISTORY PAST MEDICAL HISTORY SOCIAL HISTORY Past Medical History: Diagnosis Date Bipolar 1 disorder ([facility]) Social History Tobacco Use Smoking status: Not [...] nursing note reviewed. Exam conducted with a pre sales technical engineer present. Vitals: Estimated body mass index is [...] Johnathan Recinos DO documented in this encounter [facility] 02-15-2024 History of Present illness Narrative [facility] [...] Medical History: Diagnosis Date Bipolar 1 disorder ([facility]) Depression PSHIST: Past Surgical History: Procedure Laterality [...] 4. Bipolar disease during in second trimester ([facility]) I reviewed with the patient that stability [...] of withdrawal and extrapyramidal effects on reviewed. Decatizer should be notified. Lack of controlled human [...] . For prevention of venous thromboembolism in oqlc-slsr-nqde groups, pharmacologic thromboprophylaxis should be considered in [...] prevention Cervical length at 22 weeks at [facility] Follow up survey scheduled Serial growth assessments every 4 weeks after the anatomy scan can be done at OB office. ventricles should be measured at each US. If >=10 mm or concern for hydrocephalus refer to [facility]. If you would like [facility] to do the growth US [...] Cardona MD, FACOG (she/hers) Maternal- Medicine [facility] [address] [facility] 1st [place] [address] This document was created with [employer] technology. Though I make every effort to review the dictation as it is transcribed, on occasion the spoken word can be misinterpreted by the technology leading to inappropriate words, phrases, or sentences. This note is addressed to the requesting provider as a consultation for clinical guidance. Specific medical abbreviations are occasionally used and those are generally approved by the [place]?Board of?Obstetrics and?Gynecology?as well as?Jeri s abbreviations. The above plan of care was based solely on the diagnoses for which a consultation was requested. ?More frequent testing may be indicated based on her other medical/obstetrical conditions. The management of other or medical conditions is beyond the scope of requested consultation and will continue to be followed by the primary dovetailer or primary care provider. Note to patient: [...] yes Have you been seen here at [facility] in a previous ? yes Recent ER visits or hospitalizations? 02/07 kidney and bladder infection Bring blood sugar log or meter with you today? (Please bring them with you for every visit at [facility]) na Flu vaccine (Mar-June)? na Any concerns that you would like me to mention to the provider today? no documented in this encounter [facility] [employer] 01-24-2024 History of Present illness Narrative Reason [...] 4 section, pt to be referred to [facility] for level II ultrasound. Pt [...] Johnathan Recinos DO documented in this encounter [facility] 01-03-2024 History of Present illness Narrative Reason for Appointment: Patient ID: Mikaela Riuz is a 38 y.o. female who presents [...] of: PACO Freed documented in this encounter [facility] 12-25-2023 History of Present illness Narrative Reason [...] Medical History: Diagnosis Date Bipolar 1 disorder ([facility]) HISTORY PAST MEDICAL HISTORY SOCIAL HISTORY Past [...] nursing note reviewed. Exam conducted with a pre sales technical engineer present. Vitals: Estimated body mass index is [...] oral medications. Patient will have referral to [facility] for [facility]. Patient aware that [facility] will reach out to her to initiate therapy. Follow Up: Patient is to return in 4 weeks for routine OB appointment. Documented by Barbara Guillermo LPN on behalf of: Liza Duque PA-C documented in this encounter [facility] 04-27-2023 Evaluation note Encounter Date Diagnosis Assessment [...] condition. Mar, Sore throat (ICD-10 - J02.9) Brigade Other 01-10-2023 Evaluation note* Encounter Date Diagnosis [...] weeks for the cough to go away [facility] Other 11-07-2022 NoteIndication: Abdominal pain. Comparison: None [...] Electronically authenticated by: SURJIT FREITAS Date: 2022-03-07 20:49[facility]11-19-2020 NoteI Staff This visit was conducted via phone communications from my office due to the restrictions of the COVID-19 pandemic. No physical exam was conducted due to audio only communication with the patient located at [address] [place], [place] [id number], with no one else. If it is determined that the patientshould be evaluated in person, the patient will be directed to the appropriate clinic or venue. Thepatient or their guardian verbally consented to this visit. Phone time was 15 minutes discussing health issues with counseling and coordination of care. Subjective Interval History/HPI Patient presents today for follow up via telehealth phone from [facility]. Patient started Latuda 20mg last [...] anxiety, # 30 tab(s), Refills(s) 2, Pharmacy: [facility]/pharmacy #[id number], 161, cm, 12/23/19 10:18:00 EDT, Height/Length Dosing, 82, kg, 12/23/19 10:18:00 EDT, Weight Dosing Orders: lurasidone, 20 mg = 1 tab(s), Oral, Daily, with 350 calories; begin this dose first then progress to next dose of 40mg, X 1 week(s), # 7 tab(s), Refills(s) 0, Pharmacy: [facility]/pharmacy #[id number], 161, cm, 12/23/19 10:18:00 EDT, Height/Length Dosing, 82, kg, 12/23/19 10:... lurasidone, 40 mg = 1 tab(s), Oral, Daily, with 350 calories, # 30 tab(s), Refills(s) 1, Pharmacy: [facility]/pharmacy #[id number], 161, cm, 12/23/19 10:18:00 [...] (generalized anxiety disorder) Hidr (more content not included)...[facility]healthComment on above: Result Comment: Electronically Signed By: Carlota RODRIGUEZ CNP\.br\Date and Time Signed: 03/19/20 14:27 [id number] NoteI Staff This visit was conducted via two-way, real-time interactive video communications from my office using [employer] due to the restrictions of the COVID-19 pandemic. No physical exam was conducted other than those areas of the body visible to telecommunications with the patient located at [address] [place] [phone], with no one else in attendance. If [...] Ordered: TELEHEALTH Office Visit Level 3 Est 91108 General Treatment Plan Maintain medication regimen _Improve [...] Employed, 03/18/2019 Home/Environment Sylvia (more content not included)...OhiohealthComment on above: Result Comment: Electronically Signed By: Carlota RODRIGUEZ CNP.mati\Date and Time Signed: 03/05/20 13:32 [id number] NoteI Staff This visit was conducted via two-way, real-time interactive video communications from my office using [employer] due to the restrictions of the COVID-19 pandemic. No physical exam was conducted other than those areas of the body visible to telecommunications with the patient located at [address] [place] [address], with no one else in attendance. If [...] # 30 tab(s), Refills(s) 1, [id number] 161, cm, 12/23/19 10:18:00 EDT, Height/Length Dosing, 82, kg, 12/23/19 10:18:00 EDT, Weight Dosing alprazolam, 0.5 mg = 1 tab(s), Oral, TID, PRN for anxiety, # 30 tab(s), Refills(s) 1, Pharmacy: [facility]/pharmacy #[id number], 161, cm, 12/23/19 10:18:00 EDT, Height/Length Dosing, 82, kg, 12/23/19 10:18:00 EDT, Weight Dosing aripiprazole, See Instructions, 1.5 tab po qAM, # 30 tab(s), Refills(s) 2, Pharmacy: [facility]/pharmacy #[id number], 161, cm, 12/23/19 10:18:00 EDT, Height/Length Dosing, 82, kg, 12/23/19 10:18:00 EDT, Weight Dosing aripiprazole, See Instructions, 1 tab po qAM, # 30 tab(s), Refills(s) 5, Pharmacy: [facility]/pharmacy #[id number], 161, cm, 12/23/19 10:18:00 EDT, Height/Length Dosing, 82, kg, 12/23/19 10:18:00 EDT, Weight Dosing cyclobenzaprine, 10 mg = 1 tab(s), Oral, TID, PRN for spasm, # 30 tab(s), Refills(s) 1, Pharmacy: [facility]/pharmacy #[id number], 161, cm, 06/13/19 14:39:00 EST, Height/Length Measured, 82, kg, 06/13/19 14:39:00EST, Weight Measured cyclobenzaprine, 10 mg = 1 tab(s), Oral, TID, PRN for spasm, # 30 tab(s), Refills(s) 1, Pharmacy: [facility]/pharmacy #[id number], 161, cm, 12/23/19 10:18:00 EDT, Height/Length Dosing, 82, kg, 12/23/19 10:18:00 EDT, Weight Dosing General Treatment Plan Maintain medication regimen _Improve mood stability _Improve anxiety control _Improve social and interpersonal functioning Clinical Global Impression 62 Prognosis progressing Follow-up With When Contact Information Carlota RODRIGUEZ CNP In 4 weeks Additional Instructions: (more content not included)...OhiohealthComment on above:Result Comment: Electronically Signed By: Carlota RODRIGUEZ CNP\.br\Date and Time Signed: 01/27/20 22:35 [id number] NoteI Staff This visit was conducted via two-way, real-time interactive video communications from my office using [employer] due to the restrictions of the COVID-19 pandemic. No physical exam was conducted other than those areas of the body visible to telecommunications with the patient located at [address] [place] [address], with no one else in attendance. If [...] Ordered: TELEHEALTH Office Visit Level 3 Est 56966 General Treatment Plan Maintain medication regimen _Improve [...] Use:. Never Smokeless Tob (more content not included)...OhiohealthComment on above:Result Comment: Electronically Signed By: Carlota RODRIGUEZ CNP\.br\Date and Time Signed: 01/13/20 09:11 [id number] NoteI Staff This visit was conducted via two-way, real-time interactive video communications from my office using [employer] due to the restrictions of the COVID-19 pandemic. No physical exam was conducted other than those areas of the body visible to telecommunications with the patient located at [address] [place] [address], with no one else in attendance. If [...] anxiety, # 30 tab(s), Refills(s) 1, Pharmacy: [facility]/pharmacy #[id number], 161, cm, 12/23/19 10:18:00 EDT, Height/Length Dosing, 82, kg, 12/23/19 10:18:00 EDT, Weight Dosing alprazolam, 0.5 mg = 1 tab(s), Oral, TID, PRN for anxiety, # 30 tab(s), Refills(s) 1, [id number], 161, cm, 06/13/19 14:39:00 EST, Height/Length Measured, 82, kg, 06/13/19 14:39:00 EST, Weight Measured aripiprazole, See Instructions, 1 tab po qAM, # 30 tab(s), Refills(s) 0, [id number], 161, cm, 12/23/19 10:18:00 EDT, Height/Length [...] Allergies Bactrim Social History (more content not included)...OhiohealthComment on above:Result Comment: Electronically Signed By: Carlota RODRIGUEZ CNP\.mati\Date and Time Signed: 12/23/19 16:37 [id number] NoteI Staff This visit was conducted via two-way, real-time interactive video communications from my office using [employer] due to the restrictions of the COVID-19 pandemic. No physical exam was conducted other than those areas of the body visible to telecommunications with the patient located at [address] [place] [address], with no one else in attendance. If [...] q24hr, # 30 tab(s), Refills(s) 2, Pharmacy: [facility]/pharmacy #[id number],161, cm, 06/13/19 14:39:00 EST, Height/Length Measured, 82, kg, 06/13/19 14:39:00 EST, Weight Measured cyclobenzaprine, 10 mg = 1 tab(s), Oral, TID, PRN for spasm, # 30 tab(s), Refills(s) 1, Pharmacy: [facility]/pharmacy #[id number], 161, cm, 06/13/19 14:39:00 EST, Height/Length [...] Employment/School Employed, 03/18/2019 Home/Environment (more content not included)...OhiohealthComment on above:Result Comment: Electronically Signed By: Carlota RODRIGUEZ CNP\.br\Date and Time Signed: 12/02/19 16:38 EDTChief complaint+Reason for visit Narrative* Chief Complaint Nausea, diarrhea, fe zhou Reason for Visit Contact with and (guillen spected) exposure to covid-19 Sore throat [facility] Work Phone: Evaluation note* Diagnosis Onset Date Resolution Status Contact with and (suspected) exposure to covid-19 noneactive Sore throat noneactive [facility] Work Phone: Evaluation note* Diagnosis 21 weeks gestation of - Primary Obesity affecting in second trimester, unspecified obesity type [facility] Diagnosis 21 weeks gestation of - Primary Multigravida of advanced maternal age in second trimester Pyelonephritis affecting in second trimester Bipolar disease during in second trimester (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, antepartum History of delivery, currently with history of pre-term labor [facility]* Diagnosis 22 weeks gestation of Second trimester state, incidental Diabetes mellitus screening Screening for diabetes mellitus documented in this encounter [facility]* Diagnosis 24 weeks gestation of Second trimester state, incidental Flank pain Abdominal pain, unspecified site Acute cystitis with hematuria documented in this encounter [facility] HealthcareEvaluation note* Diagnosis 24 weeks gestation [...] Hospitalization History see above surgical histo ry Brigade Other InstructionsNot on filedocumented in this encounter [facility] BOOK A TIGER SystemInstructions* Attachments The following attachments cannot be sent through Care Everywhere. * Preeclampsia (Chadian) * Movement (Chadian) [facility] Advance Directives No Advanced Directives [...] may need to be seen by an client server programmer if you have other events like this without definite egg exposure. Summary Purpose Family History No Family History Records Found Relationship Condition Age at Onset Recorded Date/T alo father Diabetes mellitus Unknown Hypertension Unknown Additional Source Comments INFORMATION SOURCE (unrecogn ized section and content) DATE CREATED AUTHOR 10/30/2020 [facility] DATE CREATED AUTHOR AUTHOR'S ORGANIZ ATION 04/29/2022 [facility] DATE CREATED AUTHOR AUTHOR'S ORGANIZ ATION 03/16/2024 [facility] DATE CREATED AUTHOR AUTHOR'S ORGANIZ ATION 04/25/2024 [facility] DATE CREATED AUTHOR AUTHOR'S ORGANIZ ATION 05/14/2024 [facility] EPIC REASON FOR VISIT [...] August 18, 2023 End: August 18, 2023 Report Analyst Relationship Specialty Start Date End Date No Pcp, [place] [address] PCP - General Family Medicine 03/12/19 Report Analyst Relationship Specialty Start Date End Date No Pcp, [place] [address] PCP - General Family Medicine 03/12/19 Goals [...] BE BASED ON THE PRIMARY CLINICAL RECORDS. [employer] [facility]. provides no warranty or guarantee of the accuracy or completeness of information in this document.
[2024-05-21 13:48] VITALS: BP 119/58; PULSE 110
== END 2024-05-21 13:59 | disposition home or self-care (01) ==
LOC: FBCO 00:41 → FBC 13:08
PROVIDERS: PCP Nurse Practitioner Family; Visit Provider Obstetrics & Gynecology
DX: O24.419 Gestational diabetes mellitus in pregnancy, unspecified control (principal)
CPT/HCPCS: 59025

== ENCOUNTER 2024-05-24 00:35 | Outpatient (OUT) | payer BC, OTHER, SELFPAY ==
--- OUTSIDE RECORDS SUMMARY | 2024-05-24 00:40 | XMS_ITS | CCD ---
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 (20 sources) Sulfamethoxazole; 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: [SULFAMETHOXAZOLE] Drug Allergy 08-18-19 [facility] (20 sources) Trimethoprim; 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: [TRIMETHOPRIM] Drug Allergy 08-18-[address] [facility] (3 sources) Fish Containing Products; 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: [Fish Containing Products] Propensity to adverse reactions 08-18-[address] [facility] (1 source) Sulfamethoxazole / Trimethoprim Drug Allergy 02-04-20 13 [facility] (20 sources) Sulfamethoxazole / Trimethoprim Drug Allergy 11-24-19 24 hives, [facility] Hyperoptic Other (20 sources) Egg-Derived Products Drug Allergy [...] (six) hours as needed for pain. Active [id number] 200 actuat albuterol 0.09 mg/actuat metered dose [...] Glucose Monitoring Suppl (D-Care Glucometer) w/Device kit (9 sources) Start: 03-25-2024 End: 03-25-2025 Blood Glucose [...] oral tablet (1 source) alpha-Adrenergic Agonist, Uncompetitive D-jfuyfl-Y-aspartate Receptor Antagonist, Sigma-1 Agonist Start: 04-27-2023 take 4 tablets by mouth every twenty-four hours as needed Capmist DM 60-15-400 MG as needed Orally every 4-6 hours as needed, max 4 tablets in 24 hours for 5 days Mar, Active [id number] 0.3 ml EPINEPHrine 1 mg/ml auto-injector (2 [...] Active insulin glargine 100 unt/ml injectable solution (3 sources) Insulin Analog Start: 05-13-2024 End: 06-12-2024 inject 10 [IU] by subcutaneous injection in the evening insulin glargine (Lantus) 100 UNIT/ML injection Indications: Hyperglycemia , GESTATIONAL DIABETES Inject 10 Units under the skin in the evening 3 mL 3 05/13/2024 06/12/2024 Active isopropyl alcohol 0.7 ml/ml medicated pad (9 sources) Start: 03-25-2024 Alcohol Swabs (Alcohol Prep [...] 01/08/2025 Active metoclopramide 10 mg oral tablet (16 sources) Dopamine-2 Receptor Antagonist Start: 04-03-2024 End: [...] Active promethazine hydrochloride 12.5 mg oral tablet (17 sources) Phenothiazine Start: 03-25-20 End: 06-23-19 take [...] 18, 2023 12:00am take 1 capsule by [facility] every twenty-four hours in the morning venlafaxine [...] Date Documented Da te Episodic/Chronic Abdominal pain (13 sources) Unspecified abdominal pain; 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: [Flank pain] [...] tolerance complicating ; childbirth; or the puerperium (17 sources) Gestational diabetes mellitus; 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: [Gestational diabetes mellitus in , unspecified control] Onset: 03-21-2024 03-21-2024 Episodic Genitourinary symptoms and ill-defined conditions (1 source) Personal history of urinary (tract) infections; 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: [PERS HX URINARY TRACT INFECTIONS] Onset: 04-29-2022 Episodic Hypertension complicating ; childbirth and the puerperium (5 sources) Elevated blood pressure; 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: [Unspecified maternal [...] Other fci (current) drug therapy; 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: [OTH USABILITY ARCHITECT CURRENT DRUG THERAPY] Onset: 12-30-2022 Episodic Other [...] of ] 03-21-2024 Episodic Residual codes; unclassified (10 sources) Gestation period, 28 weeks; 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: [28 weeks gestation of ] Onset: 04-03-2024 04-03-2024 Episodic Residual codes; unclassified (2 sources) Gestation period, 18 weeks; 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: [18 weeks gestation of ] 01-24-2024 Episodic Residual codes; unclassified (5 sources) Gestation period, 33 weeks; 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: [33 weeks gestation of ] Onset: 05-13-2024 05-13-2024 Episodic Substance-related disorders (1 source) Nicotine dependence, cigarettes, uncomplicated; 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: [NICOTINE DEPEND CIGARETTES UNCOMP] Onset: 04-29-2022 Chronic Unclassified (1 source) PERSONAL HISTORY OF COVID-19; 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: [PERSONAL HISTORY OF COVID-19] Onset: 04-29-2022 Unclassified (1 source) transport Onset: 02-08-2024 Urinary tract infections (14 sources) Acute cystitis; 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: [Acute cystitis with [...] UA Negative Negative - 4(70) +++ mg/dL [facility] Blood, UA Positive Negative - 50 Slick/mcL [facility] Comment on above: trace Clarity, UA Clear [facility] re Color, UA Yellow [facility] Glucose, UA Negative Negative - 1999(110) ++++ mg/dL [facility] Interpretation and review of laboratory results Abnormal [facility] Ketones, UA Negative Negative - 160(16) ++++ mg/dL [facility] Leukocytes, UA Negative Negative - 500+++ Mira/mcL [facility] Nitrite, UA Negative Negative - Positive [facility] pH, UA 6.5 5 - 9 [facility] e Protein, UA Negative Negative - 2000(20) ++++ mg/dL [facility] Spec Grav, UA 1.01 1 - 1.03 [facility] Urobilinogen, UA 0.2 0.2 - 12 mg/dL [facility] US OB FOLLOW UP TRANSABDOMIN [...] 2513 gm / 5 lbs, 8 oz (7594-5934 gm) [place] Normal: 2393 gm (9651-7069 gm) [place] Wt%: 65% for 34.1 wks [...] as of 03/21/2024: 32w3d [facility]H UA (CLEAN/CATCH) OPERATOR GROUND BASED AIR DEFENCE/CHUY RO IF IND.on 04-22-2024 BILIRUBIN URINE Negative [...] (U) No Growth 2 Days PERFORMED BY: [place] [id number] PATHOLOGIST [employer] SYD SHEFFIELD M.D. Normal [facility] Comment on above: Performed By: #### C UU #### [address] RECURRENT VAGINITIS (HTRX)on 04-06-2024 ATOPOBIUM VAGINAE [...] detected [facility] BRAD KRUSEI 0 [facility] Healt hcare BRAD KRUSEI Not detected [facility] CHLAMYDIA TRACHOMATIS 0 [facility] CHLAMYDIA TRACHOMATIS Not detected N [facility] GARDNERELLA VAGINALIS [address] [facility] GARDNERELLA VAGINALIS Not detected N [facility] MEGASPHAERA (TYPES 1, 2) 0 [facility] MEGASPHAERA (TYPES 1, 2) Not detected [facility] MYCOPLASMA GENITALIUM [address] [facility] MYCOPLASMA GENITALIUM Not detected N [facility] NEISSERIA GONORRHOEAE 0 NOM [facility] NEISSERIA GONORRHOEAE Not detected N [facility] TRICHOMONAS VAGINALIS [address] [facility] TRICHOMONAS VAGINALIS Not detected N [facility] Urinalysis macro (dipstick) panel (U)on 04-03-2024 Bilirubin, UA Negative Negative - 4(70) +++ mg/dL [facility] Blood, UA Negative Negative - 50 Slick/mcL [facility] Clarity, UA Cloud[facility] re Color, UA Yellow [facility] e Glucose, UA 1+ Negative - 1999(110) ++++ mg/dL [facility] Comment on above: 100mg/dL Interpretation and review of laboratory results Abnormal [facility] Ketones, UA Negative Negative - 160(16) ++++ mg/dL [facility] Leukocytes, UA Trace Negative - 500+++ Mira/mcL [facility] Nitrite, UA Negative Negative - Positive [facility] pH, UA 6 5 - 9 [facility] e Protein, UA Negative Negative - 1999(20) ++++ mg/dL [facility] Spec Grav, UA 1.01 1 - 1.03 [facility] Urobilinogen, UA 0.2 0.2 - 12 mg/dL [facility] ALL CBC WITH AUTO DIFFon BASOPHILS ABSOLUTE AUTO 0 [facility] Basophils/100 WBC (Bld) 0.1 % Low 0.2 - 2.0 % [facility] Eosinophils/100 WBC (Bld) 0.5 % Low 0.9 - 7.0 % [facility] Erythrocyte distribution width (RBC) [Ratio] 13.9 % 11.0 - 15.0 % [facility] Hematocrit (Bld) [Volume fraction] 35.2 % Low 36.0 - 48.0 % [facility] Hemoglobin (Bld) [Mass/Vol] 11.5 g/dL Low 12.0 - 16.0 g/dL [facility] IMMATURE GRANULOCYTES ABS AUTO 0.05 High [facility] Immature granulocytes/100 WBC (Bld) 0.6 % High 0.0 - 0.5 % [facility] Interpretation and review of laboratory results Abnormal [facility] LYMPHOCYTES ABSOLUTE AUTO 1.9 [facility] Lymphocytes/100 WBC (Bld) 22.9 % 20.5 - 60.0 % [facility] MCH (RBC) [Entitic mass] 30.5 pg 26.7 - 34.0 pg [facility] MCHC (RBC) [Mass/Vol] 32.7 g/dL 29.9 - 35.2 g/dL [facility] MCV (RBC) [Entitic vol] 93.4 fL 81.0 - 99.0 fL [facility] MONOCYTES ABSOLUTE AUTO 0.3 [facility] Monocytes/100 WBC (Bld) 3.3 % 1.7 - 12.0 % [facility] NEUTROPHILS ABSOLUTE AUTO 6.1 [facility] Neutrophils/100 WBC (Bld) 72.6 % 43.0 - 75.0 % [facility] Platelet mean volume (Bld) [Entitic vol] 10.5 fL 9.5 - 13.5 fL [facility] TBH EO # 0 [facility] TB PLT [address] [facility] TB RBC 3.77 Low [facility] e TB WBC 8.4 [facility] Urinalysis macro (dipstick) panel (U)on 03-21-2024 Bilirubin, UA Negative Negative - 4(70) +++ mg/dL [facility] Blood, UA Negative Negative - 50 Slick/mcL [facility] Clarity, UA [facility] re Color, UA Yellow [facility] e Glucose, UA Positive Negative - 1999(110) ++++ mg/dL [facility] Comment on above: 500 mg Interpretation and review of laboratory results Abnormal [facility] Ketones, UA Negative Negative - 160(16) ++++ mg/dL [facility] Leukocytes, UA Negative Negative - 500+++ Mira/mcL [facility] Nitrite, UA Negative Negative - Positive [facility] pH, UA 6.5 5 - 9 [facility] e Protein, UA Negative Negative - 1999(20) ++++ mg/dL [facility] Spec Grav, UA 1.025 1 - 1.03 [facility] Urobilinogen, UA 0.2 0.2 - 12 mg/dL [facility] Urinalysis macro (dipstick) panel (U)on 03-11-2024 Bilirubin, UA Negative Negative - 4(70) +++ mg/dL [facility] Blood, UA Positive Negative - 50 Slick/mcL [facility] Comment on above: large Clarity, UA Clear [facility] re Color, UA Straw [facility] Glucose, UA Negative Negative - 1999(110) ++++ mg/dL [facility] Interpretation and review of laboratory results Abnormal [facility] Ketones, UA Negative Negative - 160(16) ++++ mg/dL [facility] Leukocytes, UA Negative Negative - 500+++ Mira/mcL [facility] Nitrite, UA Negative Negative - Positive [facility] pH, UA 6 5 - 9 [facility] Protein, UA Negative Negative - 1999(20) ++++ mg/dL [facility] Spec Grav, UA 1.02 1 - 1.03 [facility] Urobilinogen, UA 0.2 0.2 - 12 mg/dL [facility]H UA (CLEAN/CATCH) OPERATOR GROUND BASED AIR DEFENCE/CHUY RO IF IND.on 03-06-2024 BILIRUBIN URINE COLOR INTERFERENCE Abnormal NEGATIVE N [facility] BLOOD URINE COLOR INTERFERENCE Abnormal NEGATIVE [facility] Clarity (U) CLEAR CLEAR [facility] re Color (U) DK. RED YELLOW [facility] GLUCOSE URINE UA COLOR INTERFERENCE Abnormal NEGAT CARMELITA mg/dL [facility] Interpretation and review of laboratory results Abnormal [facility] Ketones Ql (U) COLOR INTERFERENCE Abnormal NEGATIV E mg/dL [facility] Leukocyte esterase Test strip Ql (U) COLOR INTERFERENCE Abnormal NEGATIVE [facility] NITRITE URINE COLOR INTERFERENCE Abnormal NEGATIVE [facility] PH URINE COLOR INTERFERENCE Abnormal 5.0 - 9.0 [facility] PROTEIN URINE COLOR INTERFERENCE Abnormal NEG/TRAC E mg/dL [facility] SPECIFIC GRAVITY URINE 1.020 1.005 - 1.025 [facility] URINE MICROSCOPIC INDICATED YES [facility] UROBILINOGEN URINE COLOR INTERFERENCE Abnormal 0.2 - 1.0 EU/dL [facility] Urinalysis macro (dipstick) panel [...] UA Positive Negative - 1999(20) ++++ mg/dL [facility] Healthcare Comment on above: 100 Spec Grav, UA 1.02 1 - 1.03 [facility] Urobilinogen, UA 1.0 0.2 - 12 mg/dL [facility] Urinalysis macro (dipstick) panel (U)on 02-21-2024 Bilirubin, UA Negative Negative - 4(70) +++ mg/dL [facility] Blood, UA Negative Negative - 50 Slikc/mcL [facility] Clarity, UA Clear [facility] Color, UA Yellow [facility] Glucose, UA Negative Negative - 1999(110) ++++ mg/dL [facility] Healthcare Interpretation and review of laboratory results Abnormal [facility] Healthcare Ketones, UA Negative Negative - 160(16) ++++ mg/dL [facility] Leukocytes, UA Trace Negative - 500+++ Mira/mcL [facility] Nitrite, UA Negative Negative - Positive [facility] pH, UA 5.5 5 - 9 [facility] Protein, UA Negative Negative - 1999(20) ++++ mg/dL [facility] Spec Grav, UA 1.01 1 - 1.03 [facility] Urobilinogen, UA 0.2 0.2 - 12 mg/dL [facility] CBC AND AUTO DIFFon 02-09-20 ABSOLUTE BASOPHIL 0.0 X10E9/L Normal 0.0-0.2 [facility] Comment on above: Performed By: #### 3 4236-1, CMP, CBCA #### [facility] ([id number]) [address], [address] [place] [address] ABSOLUTE NEUTROPHIL 5.4 X10E9/L Normal 1.5-6.6 [facility] Comment on above: Performed By: #### 3 2132-1, CMP, CBCA #### [facility] ([id number]) [address], [address] [place] [address] Basophils/100 WBC (Bld) 0.2 % Normal [facility] Comment on above: Performed By: #### 3 2132-1, CMP, CBCA #### [facility] ([id number]) [address], [address] [place] [address] Eosinophils (Bld) [#/Vol] 0.1 10*3/uL Normal 0.0-0.4 [facility] Comment on above: Performed By: #### 3 2132-1, CMP, CBCA #### [facility] ([id number]) [address], [address] [place] [address] Eosinophils/100 WBC (Bld) 0.9 % Normal [facility] Comment on above: Performed By: #### 3 2132-1, CMP, CBCA #### [facility] ([id number]) [address], [address] [place] [address] Erythrocyte distribution width (RBC) [Ratio] 14.3 % Normal 11.5-15.0 [facility] Comment on above: Performed By: #### 3 2132-1, CMP, CBCA #### [facility] ([id number]) [address], [address] [place] [address] Hematocrit (Bld) [Volume fraction] 30.3 % Low 35-47 [facility] Comment on above: Performed By: #### 3 2132-1, CMP, CBCA #### [facility] ([id number]) [address], [address] [place] [address] Hemoglobin (Bld) [Mass/Vol] 10.3 g/dL Low 11.7-15.5 [facility] Comment on above: Performed By: #### 3 2132-1, CMP, CBCA #### [facility] ([id number]) [address], [address] [place] [address] Lymphocytes (Bld) [#/Vol] 1.7 10*3/uL Normal 1.0-3.5 [facility] Comment on above: Performed By: #### 3 2132-1, CMP, CBCA #### [facility] ([id number]) [address], [facility] [address] [place] [address] Lymphocytes/100 WBC (Bld) 22.0 % Normal [facility] Comment on above: Performed By: #### 3 2132-1, CMP, CBCA #### [facility] ([id number]) [address], [address] [place] [address] MCH (RBC) [Entitic mass] 31.3 pg Normal 27-34 [facility] Comment on above: Performed By: #### 3 2132-1, CMP, CBCA #### [facility] ([id number]) [address], [address] [place] [address] MCHC (RBC) [Mass/Vol] 34.0 g/dL Normal 32-36 [facility] Comment on above: Performed By: #### 3 2132-1, CMP, CBCA #### [facility] ([id number]) [address], [facility] [address] [place] [address] MCV (RBC) [Entitic vol] 92 fL Normal 80-100 [facility] Comment on above: Performed By: #### 3 2132-1, CMP, CBCA #### [facility] ([id number]) [address], [address] [place], [place] [address] Monocytes (Bld) [#/Vol] 0.5 10*3/uL Normal 0-0.9 [facility] Comment on above: Performed By: #### 3 2132-1, CMP, CBCA #### [facility] ([id number]) [address], [address] [place], [place] [address] Monocytes/100 WBC (Bld) 7.0 % Normal [facility] Comment on above: Performed By: #### 3 2132-1, CMP, CBCA #### [facility] ([id number]) [address], [address] [place], [place] [address] Neutrophils/100 WBC (Bld) 69.9 % Normal [facility] Comment on above: Performed By: #### 3 2132-1, CMP, CBCA #### [facility] ([id number]) [address], [address] [place], [place] [address] Platelet mean volume (Bld) [Entitic vol] 8.8 fL Normal 7-12 [facility] Comment on above: Performed By: #### 3 2132-1, CMP, CBCA #### [facility] ([id number]) [address], [address] [place] [address] Platelets (Bld) [#/Vol] 259 10*3/uL Normal 150-450 [facility] Comment on above: Performed By: #### 3 2132-1, CMP, CBCA #### [facility] ([id number]) [address], [address] [place] [address] RBC COUNT 3.29 X10E12/L Low 3.80-5.20 [facility] Comment on above: Performed By: #### 3 2132-, CMP, CBCA #### [facility] ([id number]) [address], [address] [place], [place] [address] WBC (Bld) [#/Vol] 7.7 10*3/uL Normal 4.0-11.0 [facility] Comment on above: Performed By: #### 3 2132-1, CMP, CBCA #### [facility] ([id number]) [address], [address] [place] [address] COMPREHENSIVE METABOLIC PANE Paco 02-09-2024 Albumin [Mass/Vol] 2.9 g/dL Low 3.2-5.3 [facility] Comment on above: Performed By: #### 3 2132-1, CMP, CBCA #### [facility] ([id number]) [address], [address] [place] [address] ALP [Catalytic activity/Vol] 118 U/L Normal 39-130 [facility] Comment on above: Performed By: #### 3 2132-1, CMP, CBCA #### [facility] ([id number]) [address], [address] [place] [address] ALT [Catalytic activity/Vol] 6 U/L Normal 0-31 [facility] Comment on above: Performed By: #### 3 2132-1, CMP, CBCA #### [facility] ([id number]) [address], [address] [place] [address] Anion gap [Moles/Vol] 10 mmol/L Normal 5-15 [facility] Comment on above: Performed By: #### 3 2132-1, CMP, CBCA #### [facility] ([id number]) [address], [address] [place] [address] AST [Catalytic activity/Vol] 9 U/L Normal 0-41 [facility] Comment on above: Performed By: #### 3 2132-1, CMP, CBCA #### [facility] ([id number]) [address], [address] [place] [address] Bilirubin [Mass/Vol] 0.4 mg/dL Normal 0.3-1.2 [facility] Comment on above: Performed By: #### 3 2132-1, CMP, CBCA #### [facility] ([id number]) [address], [address] [place] [address] Calcium [Mass/Vol] 8.5 mg/dL Normal 8.5-10.5 [facility] Comment on above: Performed By: #### 3 2132-1, CMP, CBCA #### [facility] ([id number]) [address], [address] [place] [address] Chloride [Moles/Vol] 105 mmol/L Normal 98-109 [facility] Comment on above: Performed By: #### 3 2132-1, CMP, CBCA #### [facility] ([id number]) [address], [address] [place] [address] CO2 [Moles/Vol] 22 mmol/L Normal 22-32 [facility] Comment on above: Performed By: #### 3 2132-1, CMP, CBCA #### [facility] ([id number]) [address], [address] [place] [address] Creatinine [Mass/Vol] 0.45 mg/dL Normal 0.40-1.00 [facility] Comment on above: Result Comment: METH OD TRACEABLE TO IDMS STANDARD Performed By: #### 3 2132-1, CMP, CBCA #### [facility] ([id number]) [address], [address] [place] [address] eGFR (CKD-EPI) NON-RACE DEPENDENT >90 Normal >59 [facility] Comment on above: Result Comment: Reported eGFR is based on the CKD-EPI 2020 equation that does not use a race coefficient. Performed By: #### 3 2132-1, CMP, CBCA #### [facility] ([id number]) [address], [address] [place] [address] Glucose [Mass/Vol] 84 mg/dL Normal 65-99 [facility] Comment on above: Performed By: #### 3 2132-1, CMP, CBCA #### [facility] ([id number]) [address], [address] [place] [address] Potassium [Moles/Vol] 3.7 mmol/L Normal 3.5-5.0 [facility] Comment on above: Performed By: #### 3 2132-1, CMP, CBCA #### [facility] ([id number]) [address], [address] [place] [address] Protein [Mass/Vol] 6.0 g/dL Normal 6.0-8.0 [facility] Comment on above: Performed By: #### 3 2132-1, CMP, CBCA #### [facility] ([id number]) [address], [address] [place] [address] Sodium [Moles/Vol] 137 mmol/L Normal 134-146 [facility] Comment on above: Performed By: #### 3 2132-1, CMP, CBCA #### [facility] ([id number]) [address], [address] [place] [address] Urea nitrogen [Mass/Vol] 5 mg/dL Normal 5-23 [facility] Comment on above: Performed By: #### 3 2132-1, CMP, CBCA #### [facility] ([id number]) [address], [address] [place] [address] MAGNESIUMon 02-09-2024 Magnesium [Mass/Vol] 1.6 mg/dL Low 1.8-2.6 [facility] Comment on above: Performed By: #### 3 2132-1, CMP, CBCA #### [facility] ([id number]) [address], [address] [place] [address] PHOSPHORUSon 02-09-2024 Phosphate [Mass/Vol] 4.5 mg/dL Normal 2.4-4.9 [facility] Comment on above: Performed By: #### 3 2132-1, CMP, CBCA #### [facility] ([id number]) [address], [address] [place] [address] US RETROPERITONEAL LIMITEDon 02-09-2024 US RETROPERITONEAL LIMITED [...] Andrade MD on 02/09/2024 10:14 AM Normal [facility] BLOOD CULTUREon 02-08-2024 Bacteria identified Aer cx Nom (Bld) SPECIMEN NOTES SUBOPTIMAL VOLUME OF BLOOD COLLECTED, RESULTS MAY BE AFFECTED. CULTURE RESULTS NO GROWTH 5 DAYS Normal [facility] Comment on above: Performed By: #### 3 2132-1, CMP, CBCA #### [facility] [facility] ([id number]) [address], [address] [place] [address] Bacteria identified Aer cx Nom (Bld) SPECIMEN NOTES SUBOPTIMAL VOLUME OF BLOOD COLLECTED, RESULTS MAY BE AFFECTED. CULTURE RESULTS NO GROWTH 5 DAYS Normal [facility] Comment on above: Performed By: #### 1 7928-3 #### [facility] ([id number]) [address], [address] [place] [address] CBC AND AUTO DIFFon 10-10-20 24 ABSOLUTE BASOPHIL 0.0 X10E9/L Normal 0.0-0.2 [facility] Comment on above: Performed By: #### 3 2132-1, CMP, CBCA #### [facility] ([id number]) [address], [address] [place] [address] ABSOLUTE NEUTROPHIL 9.5 X10E9/L High 1.5-6.6 [facility] Comment on above: Performed By: #### 3 2132-1, CMP, CBCA #### [facility] ([id number]) [address], [address] [place] [address] Basophils/100 WBC (Bld) 0.0 % Normal [facility] Comment on above: Performed By: #### 3 2132-1, CMP, CBCA #### [facility] ([id number]) [address], [address] [place] [address] Eosinophils (Bld) [#/Vol] 0.0 10*3/uL Normal 0.0-0.4 [facility] Comment on above: Performed By: #### 3 2132-1, CMP, CBCA #### [facility] ([id number]) [address], [address] [place] [address] Eosinophils/100 WBC (Bld) 0.0 % Normal [facility] Comment on above: Performed By: #### 3 2132-1, CMP, CBCA #### [facility] ([id number]) [address], [address] [place] [address] Erythrocyte distribution width (RBC) [Ratio] 14.5 % Normal 11.5-15.0 [facility] Comment on above: Performed By: #### 3 2132-1, CMP, CBCA #### [facility] ([id number]) [address], [address] [place] [address] Hematocrit (Bld) [Volume fraction] 31.3 % Low 35-47 [facility] Comment on above: Performed By: #### 3 2132-1, CMP, CBCA #### [facility] ([id number]) [address], [address] [place] [address] Hemoglobin (Bld) [Mass/Vol] 10.6 g/dL Low 11.7-15.5 [facility] Comment on above: Performed By: #### 3 2132-1, CMP, CBCA #### [facility] ([id number]) [address], [facility] [address] [place] [address] Lymphocytes (Bld) [#/Vol] 1.1 10*3/uL Normal 1.0-3.5 [facility] Comment on above: Performed By: #### 3 2132-1, CMP, CBCA #### [facility] ([id number]) [address], [facility] [address] [place] [address] Lymphocytes/100 WBC (Bld) 9.4 % Normal [facility] Comment on above: Performed By: #### 3 2132-1, CMP, CBCA #### [facility] ([id number]) [address], [address] [place] [address] MCH (RBC) [Entitic mass] 30.8 pg Normal 27-34 [facility] Comment on above: Performed By: #### 3 2132-1, CMP, CBCA #### [facility] ([id number]) [address], [address] [place] [address] MCHC (RBC) [Mass/Vol] 33.9 g/dL Normal 32-36 [facility] Comment on above: Performed By: #### 3 2132-1, CMP, CBCA #### [facility] ([id number]) [address], [address] [place] [address] MCV (RBC) [Entitic vol] 91 fL Normal 80-100 [facility] Comment on above: Performed By: #### 3 2132-1, CMP, CBCA #### [facility] ([id number]) [address], [address] [place] [address] Monocytes (Bld) [#/Vol] 0.9 10*3/uL Normal 0-0.9 [facility] Comment on above: Performed By: #### 3 2132-1, CMP, CBCA #### [facility] ([id number]) [address], [address] [place] [address] Monocytes/100 WBC (Bld) 8.2 % Normal [facility] Comment on above: Performed By: #### 3 2132-1, CMP, CBCA #### [facility] ([id number]) [address], [address] [place] [address] Neutrophils/100 WBC (Bld) 82.4 % Normal [facility] Comment on above: Performed By: #### 3 2132-1, CMP, CBCA #### [facility] ([id number]) [address], [address] [place] [address] Platelet mean volume (Bld) [Entitic vol] 8.5 fL Normal 7-12 [facility] Comment on above: Performed By: #### 3 2132-1, CMP, CBCA #### [facility] ([id number]) [address], [address] [place] [address] Platelets (Bld) [#/Vol] 246 10*3/uL Normal 150-450 [facility] Comment on above: Performed By: #### 3 2132-1, CMP, CBCA #### [facility] ([id number]) [address], [address] [place] [address] RBC COUNT 3.44 X10E12/L Low 3.80-5.20 [facility] Comment on above: Performed By: #### 3 2132-1, CMP, CBCA #### [facility] ([id number]) [address], [address] [place] [address] WBC (Bld) [#/Vol] 11.5 10*3/uL High 4.0-11.0 [facility] Comment on above: Performed By: #### 3 2132-1, CMP, CBCA #### [facility] ([id number]) [address], [address] [place] [address] COMPREHENSIVE METABOLIC PANE Paco 02-08-2024 Albumin [Mass/Vol] 3.1 g/dL Low 3.2-5.3 [facility] Comment on above: Performed By: #### 3 2132-1, CMP, CBCA #### [facility] ([id number]) [address], [address] [place] [address] ALP [Catalytic activity/Vol] 100 U/L Normal 39-130 [facility] Comment on above: Performed By: #### 3 2132-1, CMP, CBCA #### [facility] ([id number]) [address], [address] [place] [address] ALT [Catalytic activity/Vol] 7 U/L Normal 0-31 [facility] Comment on above: Performed By: #### 3 2132-1, CMP, CBCA #### [facility] ([id number]) [address], [address] [place] [address] Anion gap [Moles/Vol] 12 mmol/L Normal 5-15 [facility] Comment on above: Performed By: #### 3 2132-1, CMP, CBCA #### [facility] ([id number]) [address], [address] [place] [address] AST [Catalytic activity/Vol] 8 U/L Normal 0-41 [facility] Comment on above: Performed By: #### 3 2132-1, CMP, CBCA #### [facility] ([id number]) [address], [address] [place], [place] [address] Bilirubin [Mass/Vol] 0.5 mg/dL Normal 0.3-1.2 [facility] Comment on above: Performed By: #### 3 2132-1, CMP, CBCA #### [facility] ([id number]) [address], [address] [place], [place] [address] Calcium [Mass/Vol] 8.3 mg/dL Low 8.5-10.5 [facility] Comment on above: Performed By: #### 3 2132-1, CMP, CBCA #### [facility] ([id number]) [address], [address] [place], [place] [address] Chloride [Moles/Vol] 104 mmol/L Normal 98-109 [facility] Comment on above: Performed By: #### 3 2132-1, CMP, CBCA #### [facility] ([id number]) [address], [address] [place], [place] [address] CO2 [Moles/Vol] 20 mmol/L Low 22-32 [facility] Comment on above: Performed By: #### 3 2132-1, CMP, CBCA #### [facility] ([id number]) [address], [address] [place], [place] [address] Creatinine [Mass/Vol] 0.53 mg/dL Normal 0.40-1.00 [facility] Comment on above: Result Comment: METH OD TRACEABLE TO IDMS STANDARD Performed By: #### 3 2132-1, CMP, CBCA #### [facility] ([id number]) [address], [address] [place] [address] eGFR (CKD-EPI) NON-RACE DEPENDENT >90 Normal >59 [facility] Comment on above: Result Comment: Reported eGFR is based on the CKD-EPI 2020 equation that does not use a race coefficient. Performed By: #### 3 2133-1, CMP, CBCA #### [facility] ([id number]) [address], [address] [place] [address] Glucose [Mass/Vol] 115 mg/dL High 65-99 [facility] Comment on above: Performed By: #### 3 2132-1, CMP, CBCA #### [facility] ([id number]) [address], [address] [place] [address] Potassium [Moles/Vol] 3.6 mmol/L Normal 3.5-5.0 [facility] Comment on above: Performed By: #### 3 2132-1, CMP, CBCA #### [facility] ([id number]) [address], [address] [place] [address] Protein [Mass/Vol] 6.1 g/dL Normal 6.0-8.0 [facility] Comment on above: Performed By: #### 3 2132-1, CMP, CBCA #### [facility] ([id number]) [address], [address] [place] [address] Sodium [Moles/Vol] 136 mmol/L Normal 134-146 [facility] Comment on above: Performed By: #### 3 2132-1, CMP, CBCA #### [facility] ([id number]) [address], [address] [place] [address] Urea nitrogen [Mass/Vol] 3 mg/dL Low 5-23 [facility] Comment on above: Performed By: #### 3 2132-1, CMP, CBCA #### [facility] ([id number]) [address], [address] [place] [address] DRUG SCREEN, URINEon 02-07-2 024 AMPHETAMINE/METHAMP Negative Normal NEG [facility] Comment on above: Result Comment: AMPH /METH screening cut off = 1000 ng/mL Performed By: #### D GUILLEN #### [facility] ([id number]) [address], [address] [place] [address] BARBITURATES Negative Normal NEG [facility] Comment on above: Result Comment: Megan iturates screening cut off value = 200 ng/mL Performed By: #### D GUILLEN #### [facility] ([id number]) [address] [place] [address] BENZODIAZEPINES Negative Normal NEG [facility] Comment on above: Result Comment: Giorgio odiazepines screening cut off value = 200 ng/mL Performed By: #### D GUILLEN #### [facility] ([id number]) [address], [address] [place] [address] CANNABINOIDS Negative Normal NEG [facility] Comment on above: Result Comment: Eslie abinoids/THC screening cut off value = 50 ng/mL Performed By: #### D GUILLEN #### [facility] ([id number]) [address], [address] [place] [address] COCAINE METABOLITE Negative Normal NEG [facility] Comment on above: Result Comment: Coca ine screening cut off value = 300 ng/mL Performed By: #### D GUILLEN #### [facility] ([id number]) [address], [address] [place] [address] ECSTASY Negative Normal NEG [facility] Comment on above: Result Comment: Ecst asy screening cut off value = 500 ng/mL This report is intended for use in clinical monitoring or management of patients. Performed By: #### D GUILLEN #### [facility] ([id number]) [address], [address] [place] [address] METHADONE Negative Normal NEG [facility] Comment on above: Result Comment: Meth adone screening cut off value = 300 ng/mL. Performed By: #### D GUILLEN #### [facility] ([id number]) [address], [address] [place] [address] OPIATES Negative Normal NEG [facility] Comment on above: Result Comment: Opia joey screening cut off value = 300 ng/mL NOTE: This test is used for the detection of codeine, hydrocodone (>1000 ng/mL), morphine and hydromorphone (>900 ng/mL) in urine. Performed By: #### D GUILLEN #### [facility] ([id number]) [address], [address] [place] [address] OXYCODONE Negative Normal NEG [facility] Comment on above: Result Comment: Oxyc odone screening cut off value = 300 ng/mL NOTE: This test is used for the detection of oxycodone and oxymorphone in urine. Performed By: #### D GUILLEN #### [facility] ([id number]) [address], [address] [place] [address] PHENCYCLIDINE Negative Normal NEG [facility] Comment on above: Result Comment: Phen cyclidine screening cut off value = 25 ng/mL Performed By: #### D GUILLEN #### [facility] ([id number]) [address], [address] [place] [address] Glucose Glucometer (BldC) [M ass/Vol]on 02-08-2024 Glucose [Mass/Vol] 107 mg/dL High 65-99 [facility] Lactate (P melvin) [Moles/Vol]o n 02-08-2024 LACTATE W/REFLEX 1.0 mmol/L Normal 0.4-2.0 [facility] Comment on above: Result Comment: Result did not trigger repeat Lactate, re-order if needed. Performed By: #### 7 5241-0, 82162-4 #### [facility] ([id number]) [address], [address] [place] [address] LACTATE W/REFLEX 0.8 mmol/L Normal 0.4-2.0 [facility] Comment on above: Result Comment: Result did not trigger repeat Lactate, re-order if needed. Performed By: #### 3 2133-1, CMP, CBCA #### [facility] ([id number]) [address], [address] [place] [address] Procalcitonin IA [Mass/Vol]o n 02-08-2024 PROCALCITONIN 0.74 ng/mL High <0.05 [facility] Comment on above: Result Comment: NOTE <0.50 ng/mL - Low risk of severe sepsis and/or septic shock. <2.00 ng/mL - Recommend retesting within 6-24 hours. >2.00 ng/mL - High risk of sepsis and/or septic shock. Performed By: #### 7 5241-0, 50167-7 #### [facility] ([id number]) [address], [address] [place] [address] URINALYSISon 02-08-2024 Bilirubin Ql (U) Negative Normal NEG [facility] Comment on above: Performed By: #### U A #### [facility] ([id number]) [address], [address] [place] [address] BLOOD/HGB Small Abnormal NEG [facility] Comment on above: Performed By: #### U A #### [facility] ([id number]) [address] [address] [place] [address] Color (U) YELLOW Normal YELLOW [facility] Comment on above: Performed By: #### U A #### [facility] ([id number]) [address], [address] [place] [address] Glucose Ql (U) Negative Normal NEG [facility] Comment on above: Performed By: #### U A #### [facility] ([id number]) [address] [address] [place] [address] Ketones Ql (U) 20 mg/dL Abnormal NEG [facility] Comment on above: Performed By: #### U A #### [facility] ([id number]) [address], [address] [place] [address] Leukocyte esterase Test strip Ql (U) Negative Normal NEG [facility] Comment on above: Performed By: #### U A #### [facility] ([id number]) [address] [facility], [address] [place] [address] MUCOUS PRESENT Abnormal NONE [facility] Comment on above: Performed By: #### U A #### [facility] ([id number]) [address] [place] [address], [address] [place] [address] Nitrite Ql (U) Negative Normal NEG [facility] Comment on above: Performed By: #### U A #### [facility] ([id number]) [address] [place] [address], [address] [place] [address] pH (U) 8.0 [pH] Normal 5.0-8.5 [facility] Comment on above: Performed By: #### U A #### [facility] ([id number]) [address] [place] [address], [address] [place] [address] Protein Ql (U) Trace Abnormal NEG [facility] Comment on above: Performed By: #### U A #### [facility] ([id number]) [address] [place] [address], [address] [place] [address] R.B.CELLS 16 /hpf High 0-5 [facility] Comment on above: Performed By: #### U A #### [facility] ([id number]) [address] [place] [address], [address] [place] [address] Specific gravity (U) [Rel density] 1.012 Normal 1.003-1.035 [facility] Comment on above: Performed By: #### U A #### [facility] ([id number]) [facility] [address] [place] [address] SQUAMOUS EPITHELIUM 1 /hpf Normal 0-5 [facility] Comment on above: Performed By: #### U A #### [facility] ([id number]) [address], [address] [place] [address] TRANSITIONAL EPITH <1 High 0 [facility] Comment on above: Performed By: #### U A #### [facility] ([id number]) [address], [address] [place] [address] TURBIDITY CLEAR Normal CLEAR [facility] Comment on above: Performed By: #### U A #### [facility] ([id number]) [address], [address] [place] [address] Urobilinogen Qn (U) 2 {Blanca'U}/dL High <1.1 [facility] Comment on above: Performed By: #### U A #### [facility] ([id number]) [address], [address] [place] [address] W.B.CELLS 2 /hpf Normal 0-5 [facility] Comment on above: Performed By: #### U A #### [facility] ([id number]) [address], [address] [place] [address] URINE CULTUREon 02-08-2024 Bacteria identified Cx Nom (U) CULTURE RESULTS NO GROWTH AT <1000 CFU/mL Normal [facility] Comment on above: Performed By: #### 3 3-1, CMP, CBCA #### [facility] ([id number]) [address], [address] [place] [address] XR CHEST 1 VWon 02-08-2024 XR CHEST [...] Rubi MD on 02/08/2024 9:35 AM Normal [facility] URETHRITIS/DISCHARGE PLUS VA GINITIS (HTRX)on 01-27-2024 [...] e AFP VALUE 35.9 ng/mL . [facility] COMMENT: Comment . [facility] Comment on above: Nette Holley , Ph.D., [facility] Director References: Available Upon Request. Multiples Of Median Cutoffs For AFP Elevations Rao 2.5 Black 2.8 IDD 2.0 Twins 4.5 Abbreviation Definitions IDD - Insulin Dep Diabetes OSBR - Open Spina Bifida Risk For further inquiries contact [employer] [facility] at [phone]. This test was developed and its performance characteristics determined by [facility]. It has not been cleared or approved by the Food and Drug Administration. Performed at: - [facility] [address] [place], [place] [id number] [employer]: Ashley Duggan [facility], Phone: [phone] GEST. AGE ON COLLECTION DATE 17.9 . weeks [facility] GESTAT. AGE BASED ON As provided . [facility] Comment on above: Recalculations are n ot recommended when gestational dating by LMP and ultrasound are within 10 days. INSULIN DEP DIABETES No . [facility] Healthcare INTERPRETATION Comment . [facility] Comment on above: Interpretation: Scre en [...] Customer Services to discuss available options. The [employer] recommends amniocentesis be offered to women age 35 and older. [age] [facility] MULTIPLE GESTATION No . [facility]althcare OSBR RISK 1 [place] 9540 . [facility] RACE Other . [facility] RESULTS Report . [facility] TEST RESULTS: Negative . [facility] WEIGHT 225 . lbs [facility] PREGNANY N N ULTRASOUND [id number] [phone] N 1 Y 225 N N N N N White/ [facility] Urinalysis macro (dipstick) panel (U)on 01-24-2024 Bilirubin, UA Negative Negative - 4(70) +++ mg/dL [facility] Blood, UA Negative Negative - 50 Slick/mcL [facility] Clarity, UA Clear [facility] Healthin re Color, UA Yellow [facility] Glucose, UA Negative Negative - 1999(110) ++++ mg/dL [facility] Interpretation and review of laboratory results Abnormal [facility] Ketones, UA Negative Negative - 160(16) ++++ mg/dL [facility] Leukocytes, UA Trace Negative - 500+++ Mira/mcL [facility] Nitrite, UA Negative Negative - Positive [facility] pH, UA 6.5 5 - 9 [facility] Protein, UA Negative Negative - 1999(20) ++++ mg/dL [facility] Spec Grav, UA 1.020 1 - 1.03 [facility] Urobilinogen, UA 1.0 0.2 - 12 mg/dL [facility] Urinalysis macro (dipstick) panel (U)on 01-03-2024 Bilirubin, UA Negative Negative - 4(70) +++ mg/dL [facility] Blood, UA Positive Negative - 50 Slick/mcL [facility] Comment on above: trace Clarity, UA Clear [facility] re Color, UA Yellow [facility] Glucose, UA Negative Negative - 1999(110) ++++ mg/dL [facility] Interpretation and review of laboratory results Abnormal [facility] Ketones, UA Negative Negative - 160(16) ++++ mg/dL [facility] Leukocytes, UA Positive Negative - 500+++ Mira/mcL [facility] Comment on above: small Nitrite, UA Negative Negative - Positive [facility] pH, UA 6.0 5 - 9 [facility] e Protein, UA Negative Negative - 1999(20) ++++ mg/dL [facility] Spec Grav, UA 1.020 1 - 1.03 [facility] Urobilinogen, UA 0.2 0.2 - 12 mg/dL [facility] No Panel InformationOrdered By: Sanaz Lockwood on 08-18-2023 Quick Strep (POC) [facility] COVID + FLU Quick Testingon 04-27-2023 SARS-CoV-2 (COVID-19) RNA J LUIS+probe Ql (Unsp spec) Negative [facility] Other COVID + FLU Quick Testing Negative [facility] Other Quick Strepon 04-27-2023 S. pyogenes Org specific cx Ql (Throat) Negative [facility] Other Quick Strep [facility] Other COVID/FLU/RSV RT-PCRon 05-10 SARS-CoV-2 (COVID-19) RNA J LUIS+probe Ql (Unsp spec) Negative [facility] Other COVID/FLU/RSV RT-PCR Positive [facility] Other COVID/FLU/RSV RT-PCR Negative [facility] Other CBC AUTO DIFFon 04-27-2022 BASO # 0.0 103/ul Normal 0.0-0.1 [facility] Comment on above: Performed By: #### C BC #### [facility] [address] [address] [address] Dee Humphrey Basophils/100 WBC (Bld) 0.2 % Normal 0.2-2.0 [facility] Comment on above: Performed By: #### C BC #### [facility] [address] [address] [address] Dee Humphrey EO # 0.1 103/ul Normal 0.0-0.7 [facility] Comment on above: Performed By: #### C BC #### [facility] [address] [place] [address] Dr. Dee Humphrey Eosinophils/100 WBC (Bld) 0.6 % Critically low 0.9-7.0 [facility] Comment on above: Performed By: #### C BC #### [facility] [address] [address] [address] Dee Humphrey Erythrocyte distribution width (RBC) [Ratio] 14.1 % Normal 11.0-15.0 [facility] Comment on above: Performed By: #### C BC #### [facility] [address] [place] [address] Dr. Dee Humphrey Hematocrit (Bld) [Volume fraction] 37.1 % Normal 36.0-48.0 [facility] Comment on above: Performed By: #### C BC #### [facility] [address] [address] [address] Dee Humphrey Hemoglobin (Bld) [Mass/Vol] 12.4 g/dL Normal 12.0-16.0 [facility] Comment on above: Performed By: #### C BC #### [facility] [address] [address] [address] Dee Humphrey IG # 0.06 10e3/ul Critically high 0.00-0.03 [facility] Comment on above: Performed By: #### C BC #### [facility] [address] [place] [address] Dr. Dee Humphrey IG % 0.5 % Normal 0.0-0.5 [facility] Comment on above: Performed By: #### C BC #### [facility] [address] [place] [address] Dr. Dee Humphrey LYMPH # 3.7 103/ul Normal 1.2-3.8 [facility] Comment on above: Performed By: #### C BC #### [facility] [address] [place] [address] Dr. Dee Humphrey Lymphocytes/100 WBC (Bld) 28.7 % Normal 20.5-60.0 [facility] [facility] Comment on above: Performed By: #### C BC #### [facility] [address] [place] [address] Dr. Dee Humphrey MANUAL DIFF REQ NO Normal [facility] Comment on above: Performed By: #### C BC #### [facility] [address] [place] [address] Dr. Dee Humphrey MCH (RBC) [Entitic mass] 30.2 pg Normal 26.7-34.0 [facility] Comment on above: Performed By: #### C BC #### [facility] [address] [place] [address] Dr. Dee Humphrey MCHC (RBC) [Mass/Vol] 33.4 g/dL Normal 29.9-35.2 [facility] Comment on above: Performed By: #### C BC #### [facility] [address] [place] [address] Dr. Dee Humphrey MCV (RBC) [Entitic vol] 90.5 fL Normal 81.0-99.0 [facility] Comment on above: Performed By: #### C BC #### [facility] [address] [place] [address] Dr. Dee Humphrey MONO # 0.7 103/ul Normal 0.3-0.8 [facility] Comment on above: Performed By: #### C BC #### [facility] [address] [address] [address] Dee Humphrey Monocytes/100 WBC (Bld) 5.0 % Normal 1.7-12.0 [facility] Comment on above: Performed By: #### C BC #### [facility] [address] [address] [address] Dee Humphrey NEUT # 8.5 103/ul Critically high 1.4-6.5 [facility] Comment on above: Performed By: #### C BC #### [facility] [address] [address] [address] Dee Humphrey Neutrophils/100 WBC (Bld) 65.0 % Normal 43.0-75.0 [facility] Comment on above: Performed By: #### C BC #### [facility] [address] [place] [address] Dr. Dee Humphrey Platelet mean volume (Bld) [Entitic vol] 9.6 fL Normal 9.5-13.5 [facility] Comment on above: Performed By: #### C BC #### [facility] [address] [place] [address] Dr. Dee Humphrey PLT 317 103/ul Normal 150-450 [facility] Comment on above: Performed By: #### C BC #### [facility] [address] [place] [address] Dr. Dee Humphrey RBC 4.10 106/ul Critically low 4.20-5.40 [facility] Comment on above: Performed By: #### C BC #### [facility] [address] [place] [address] Dr. Dee Humphrey WBC 13.1 103/ul Critically high 4.0-11.0 [facility] Comment on above: Performed By: #### C BC #### [facility] [address] [place] [address] ABD/PELVIS WO CONon [...] by: ROCIO CHAU Date: 2022-04-27 20:24 Normal [facility] ER URINE PROFILEon 2 Bilirubin Ql (U) Negative Normal NEGATIVE [facility] Comment on above: Performed By: #### P REGU, ERUR #### [facility] [address] [place] [address] Dr. Dee Humphrey Clarity (U) CLEAR Normal CLEAR [facility] Comment on above: Performed By: #### P REGU, ERUR #### [facility] [address] [place] [address] Dr. Dee Humphrey Color (U) YELLOW Normal YELLOW [facility] Comment on above: Performed By: #### P REGU, ERUR #### [facility] [address] [place] [address] Dr. Dee STANFORD A micrscopic examination will be performed if indicated. Normal [facility] Comment on above: Performed By: #### P REGU, ERUR #### [facility] [address] [place] [address] Dr. Dee Humphrey Glucose Ql (U) Negative Normal NEGATIVE [facility] Comment on above: Performed By: #### P REGU, ERUR #### [facility] [address] [address] [address] Dee Humphrey Hemoglobin Ql (U) Negative Normal NEGATIVE [facility] Comment on above: Performed By: #### P REGU, ERUR #### [facility] [address] [address] [address] Dee Humphrey Ketones Ql (U) Negative Normal NEGATIVE [facility] Comment on above: Performed By: #### P REGU, ERUR #### [facility] [address] [address] [address] Dee Humphrey LEUKOCYTES Negative Normal NEGATIVE [facility] Comment on above: Performed By: #### P REGU, ERUR #### [facility] [address] [place] [address] Dr. Dee Humphrey Nitrite Ql (U) Negative Normal NEGATIVE [facility] Comment on above: Performed By: #### P REGU, ERUR #### [facility] [address] [place] [address] Dr. Dee Humphrey pH (U) 5.5 [pH] Normal 5-9 [facility] Comment on above: Performed By: #### P REGU, ERUR #### [facility] [address] [place] [address] Dr. Dee Humphrey SPEC GRAVITY >=1.030 Abnormal 1.005-<=1.02 5 [facility] Comment on above: Performed By: #### P REGU, ERUR #### [facility] [address] [address] [address] Dee Humphrey UA PROTEIN Negative Normal NEGATIVE/ TRACE [facility] Comment on above: Performed By: #### P REGU, ERUR #### [facility] [address] [place] [address] Dr. Dee Humphrey UR MICRO IND NOT INDICATED Normal [facility] Comment on above: Performed By: #### P REGU, ERUR #### [facility] [address] [place] [address] Dr. Dee Humphrey Urobilinogen Qn (U) 0.2 {Blanca'U}/dL Normal 0.2 - 1. 0 [facility] Comment on above: Performed By: #### P REGU, ERUR #### [facility] [address] [place] [address] Dr. Dee Humphrey LIPASEon 04-27-2022 Lipase [Catalytic activity/Vol] 94.0 U/L Normal 73.0-393.0 [facility] Comment on above: Performed By: #### L IPA, CMP #### [facility] [address] [place] [address] Dr. Dee Humphrey URon 04-27-2022 , QUAL Negative Normal NEGATIVE [facility] Comment on above: Performed By: #### P REGU, ERUR #### [facility] [address] [place] [address] Dr. Dee Humphrey PROF 14(COMP METB)on 022 Albumin [Mass/Vol] 3.9 g/dL Normal 3.4-5.0 [facility] Comment on above: Performed By: #### L IPA, CMP #### [facility] [address] [place] [address] Dr. Dee Humphrey Albumin/Globulin [Mass ratio] 1.0 {ratio} Normal [facility] Comment on above: Performed By: #### L IPA, CMP #### [facility] [address] [place] [address] Dr. Dee Humphrey ALP [Catalytic activity/Vol] 87 U/L Normal 46-116 [facility] Comment on above: Performed By: #### L IPA, CMP #### [facility] [address] [place] [address] Dr. Dee Humphrey ALT [Catalytic activity/Vol] 31 U/L Normal 14-59 [facility] Comment on above: Performed By: #### L IPA, CMP #### [facility] [address] [place] [address] Dr. Dee Humphrey Anion gap [Moles/Vol] 10.8 mmol/L Normal [facility] Comment on above: Performed By: #### L IPA, CMP #### [facility] [address] [address] [address] Dee Humphrey AST [Catalytic activity/Vol] 17 U/L Normal 15-37 [facility] Comment on above: Performed By: #### L IPA, CMP #### [facility] [address] [address] [address] Dee Humphrey Bilirubin [Mass/Vol] 0.1 mg/dL Critically low 0.2-1.0 [facility] Comment on above: Performed By: #### L IPA, CMP #### [facility] [address] [address] [address] eDe Humphrey Calcium [Mass/Vol] 8.9 mg/dL Normal 8.5-10.1 [facility] Comment on above: Performed By: #### L IPA, CMP #### [facility] [address] [address] [address] Dee Humphrey Chloride [Moles/Vol] 103 mmol/L Normal 98-107 [facility] Comment on above: Performed By: #### L IPA, CMP #### [facility] [address] [address] [address] Dee Humphrey CO2 [Moles/Vol] 26.9 mmol/L Normal 21.0-32.0 [facility] Comment on above: Performed By: #### L IPA, CMP #### [facility] [address] [address] [address] Dee Humphrey Creatinine [Mass/Vol] 0.80 mg/dL Normal 0.55-1.02 [facility] Comment on above: Performed By: #### L IPA, CMP #### [facility] [address] [address] [address] Dee Humphrey EGFR-AF SAO TOMEAN >60 Normal >=60 [facility] Comment on above: Performed By: #### L IPA, CMP #### [facility] [address] [place] [address] Dr. Dee Humphrey EGFR-NON AF SAO TOMEAN >60 Normal >=60 [facility] Comment on above: Performed By: #### L IPA, CMP #### [facility] [address] [address] [address] Dee Humphrey Globulin (S) [Mass/Vol] 3.9 g/dL Normal [facility] Comment on above: Performed By: #### L IPA, CMP #### [facility] [address] [address] [address] Dee Humphrey Glucose [Mass/Vol] 96 mg/dL Normal 74-106 [facility] Comment on above: Performed By: #### L IPA, CMP #### [facility] [address] [address] [address] Dee Humphrey Potassium [Moles/Vol] 3.7 mmol/L Normal 3.5-5.1 [facility] Comment on above: Performed By: #### L IPA, CMP #### [facility] [address] [place] [address] Dr. Dee Humphrey Protein [Mass/Vol] 7.8 g/dL Normal 6.4-8.2 [facility] Comment on above: Performed By: #### L IPA, CMP #### [facility] [address] [place] [address] Dr. Dee Humphrey Sodium [Moles/Vol] 137 mmol/L Normal 136-145 [facility] Comment on above: Performed By: #### L IPA, CMP #### [facility] [address] [place] [address] Dr. Dee Humphrey Urea nitrogen [Mass/Vol] 13.0 mg/dL Normal 7.0-18.0 [facility] Comment on above: Performed By: #### L IPA, CMP #### [facility] [address] [place] [address] Dr. Dee Humphrey Urea nitrogen/Creatinine [Mass ratio] 16.2 mg/mg Normal [facility] Comment on above: Performed By: #### L IPA, CMP #### [facility] [address] [address] [address] Dee Humphrey CBC AUTO DIFFon 03-07-2022 BASO # 0.0 103/ul Normal 0.0-0.1 [facility] Comment on above: Performed By: #### C BC #### [facility] [address] [address] [address] Dee Humphrey Basophils/100 WBC (Bld) 0.3 % Normal 0.2-2.0 [facility] Comment on above: Performed By: #### C BC #### [facility] [address] [address] [address] Dee Humphrey EO # 0.1 103/ul Normal 0.0-0.7 [facility] Comment on above: Performed By: #### C BC #### [facility] [address] [address] [address] Dee Humphrey Eosinophils/100 WBC (Bld) 0.7 % Critically low 0.9-7.0 [facility] Comment on above: Performed By: #### C BC #### [facility] [address] [place] [address] Dr. Dee Humphrey Erythrocyte distribution width (RBC) [Ratio] 13.0 % Normal 11.0-15.0 [facility] Comment on above: Performed By: #### C BC #### [facility] [address] [place] [address] Dr. Dee Humphrey Hematocrit (Bld) [Volume fraction] 39.2 % Normal 36.0-48.0 [facility] Comment on above: Performed By: #### C BC #### [facility] [address] [place] [address] Dr. Dee Humphrey Hemoglobin (Bld) [Mass/Vol] 13.2 g/dL Normal 12.0-16.0 [facility] Comment on above: Performed By: #### C BC #### [facility] [address] [address] [address] Dee Humphrey IG # 0.05 10e3/ul Critically high 0.00-0.03 [facility] Comment on above: Performed By: #### C BC #### [facility] [address] [address] [address] Dee Humphrey IG % 0.5 % Normal 0.0-0.5 [facility] Comment on above: Performed By: #### C BC #### [facility] [address] [place] [address] Dr. Dee Humphrey LYMPH # 4.2 103/ul Critically high 1.2-3.8 [facility] Comment on above: Performed By: #### C BC #### [facility] [address] [place] [address] Dr. Dee Humphrey Lymphocytes/100 WBC (Bld) 43.1 % Normal 20.5-60.0 [facility] Comment on above: Performed By: #### C BC #### [facility] [address] [place] [address] Dr. Dee Humphrey MANUAL DIFF REQ NO Normal [facility] Comment on above: Performed By: #### C BC #### [facility] [address] [place] [address] Dr. Dee Humphrey MCH (RBC) [Entitic mass] 30.5 pg Normal 26.7-34.0 [facility] Comment on above: Performed By: #### C BC #### [facility] [address] [place] [address] Dr. Dee Humphrey MCHC (RBC) [Mass/Vol] 33.7 g/dL Normal 29.9-35.2 [facility] Comment on above: Performed By: #### C BC #### [facility] [address] [place] [address] Dr. Dee Humphrey MCV (RBC) [Entitic vol] 90.5 fL Normal 81.0-99.0 [facility] Comment on above: Performed By: #### C BC #### [facility] [address] [place] [address] Dr. Dee Humphrey MONO # 0.4 103/ul Normal 0.3-0.8 [facility] Comment on above: Performed By: #### C BC #### [facility] [address] [place] [address] Dr. Dee Humphrey Monocytes/100 WBC (Bld) 4.4 % Normal 1.7-12.0 [facility] Comment on above: Performed By: #### C BC #### [facility] [address] [place] [address] Dr. Dee Humphrey NEUT # 4.9 103/ul Normal 1.4-6.5 [facility] Comment on above: Performed By: #### C BC #### [facility] [address] [place] [address] Dr. Dee Humphrey Neutrophils/100 WBC (Bld) 51.0 % Normal 43.0-75.0 [facility] Comment on above: Performed By: #### C BC #### [facility] [address] [place] [address] Dr. Dee Humphrey Platelet mean volume (Bld) [Entitic vol] 9.6 fL Normal 9.5-13.5 [facility] Comment on above: Performed By: #### C BC #### [facility] [address] [place] [address] Dr. Dee Humphrey PLT 364 103/ul Normal 150-450 [facility] Comment on above: Performed By: #### C BC #### [facility] [address] [place] [address] Dr. Dee Humphrey RBC 4.33 106/ul Normal 4.20-5.40 [facility] Comment on above: Performed By: #### C BC #### [facility] [address] [place] [address] Dr. Dee Humphrey WBC 9.7 103/ul Normal 4.0-11.0 [facility] Comment on above: Performed By: #### C BC #### [facility] [address] [place] [address] Dr. Dee Humphrey LACTATE/LACTIC ACIDon 2021 Lactate [Moles/Vol] 1.1 mmol/L Normal 0.4-1.9 [facility] Comment on above: Performed By: #### P LORETTA AUGUSTINR #### [facility] [address] [place] [address] Dr. Dee Humphrey LIPASEon 03-07-2022 Lipase [Catalytic activity/Vol] 79.0 U/L Normal 73.0-393.0 [facility] Comment on above: Performed By: #### C MP, LIPA #### [facility] [address] [address] [address] Dee Humphrey PROF 14(COMP METB)on 022 Albumin [Mass/Vol] 3.8 g/dL Normal 3.4-5.0 [facility] Comment on above: Performed By: #### C MP, LIPA #### [facility] [address] [place] [address] Dr. Dee Humphrey Albumin/Globulin [Mass ratio] 0.9 {ratio} Normal [facility] Comment on above: Performed By: #### C MP, LIPA #### [facility] [address] [place] [address] Dr. Dee Humphrey ALP [Catalytic activity/Vol] 80 U/L Normal 46-116 [facility] Comment on above: Performed By: #### C MP, LIPA #### [facility] [address] [place] [address] Dr. Dee Humphrey ALT [Catalytic activity/Vol] 27 U/L Normal 14-59 [facility] Comment on above: Performed By: #### C MP, LIPA #### [facility] [address] [place] [address] Dr. Dee Humphrey Anion gap [Moles/Vol] 9.5 mmol/L Normal [facility] Comment on above: Performed By: #### C MP, LIPA #### [facility] [address] [place] [address] Dr. Dee Humphrey AST [Catalytic activity/Vol] 13 U/L Critically low 15-37 [facility] Comment on above: Performed By: #### C MP, LIPA #### [facility] [address] [place] [address] Dr. Dee Humphrey Bilirubin [Mass/Vol] 0.1 mg/dL Critically low 0.2-1.0 [facility] Comment on above: Performed By: #### C MP, LIPA #### [facility] [address] [place] [address] Dr. Dee Humphrey Calcium [Mass/Vol] 9.0 mg/dL Normal 8.5-10.1 [facility] Comment on above: Performed By: #### C MP, LIPA #### [facility] [address] [place] [address] Dr. Dee Humphrey Chloride [Moles/Vol] 103 mmol/L Normal 98-107 [facility] Comment on above: Performed By: #### C MP, LIPA #### [facility] [address] [place] [address] Dr. Dee Humphrey CO2 [Moles/Vol] 27.1 mmol/L Normal 21.0-32.0 [facility] Comment on above: Performed By: #### C MP, LIPA #### [facility] [address] [place] [address] Dr. Dee Humphrey Creatinine [Mass/Vol] 0.86 mg/dL Normal 0.55-1.02 [facility] Comment on above: Performed By: #### C MP, LIPA #### [facility] [address] [place] [address] Dr. Dee Humphrey EGFR-AF SAO TOMEAN >60 Normal >=60 [facility] Comment on above: Performed By: #### C MP, LIPA #### [facility] [address] [place] [address] Dr. Dee Humphrey EGFR-NON AF SAO TOMEAN >60 Normal >=60 [facility] Comment on above: Performed By: #### C MP, LIPA #### [facility] [address] [place] [address] Dr. Dee Humphrey Globulin (S) [Mass/Vol] 4.1 g/dL Normal [facility] Comment on above: Performed By: #### C MP, LIPA #### [facility] [address] [place] [address] Dr. Dee Humphrey Glucose [Mass/Vol] 99 mg/dL Normal 74-106 [facility] Comment on above: Performed By: #### C MP, LIPA #### [facility] [address] [place] [address] Dr. Dee Humphrey Potassium [Moles/Vol] 3.6 mmol/L Normal 3.5-5.1 [facility] Comment on above: Performed By: #### C MP, LIPA #### [facility] [address] [place] [address] Dr. Dee Humphrey Protein [Mass/Vol] 7.9 g/dL Normal 6.4-8.2 [facility] Comment on above: Performed By: #### C MP, LIPA #### [facility] [address] [address] [address] Dee Humphrey Sodium [Moles/Vol] 136 mmol/L Normal 136-145 [facility] Comment on above: Performed By: #### C MP, LIPA #### [facility] [address] [place] [address] Dr. Dee Humphrey Urea nitrogen [Mass/Vol] 12.0 mg/dL Normal 7.0-18.0 [facility] Comment on above: Performed By: #### C MP, LIPA #### [facility] [address] [place] [address] Dr. Dee Humphrey Urea nitrogen/Creatinine [Mass ratio] 14.0 mg/mg Normal [facility] Comment on above: Performed By: #### C MP, LIPA #### [facility] [address] [place] [address] Dr. Dee Humphrey Consent for COVID Vaccineon 08-09-2020 SARS-CoV-2 (COVID-19) RNA J LUIS+probe Ql (Unsp spec) [id number]:127 Normal [facility] Consent for Treatmenton 07-30 Consent for Treatment [id number] .[id number]:127 Normal [facility] Coding Summary.on 08-07-2020 Coding Summary. CODING DATE: 08/07/2020 FINAL [facility] STATUS: PAYOR: Luzma APC DESCRIPTION [id number] New [...] Yana Paredes Date Saved: 08/07/2020 02:46 pm [facility] Ambulatory Clinical Summaryo n 03-25-2020 Ambulatory Clinical Summary {[id number] [facility] Patient Educationon 03-19-20 Patient Education lurasidone (ilene [...] agitate (more content not included)... Normal [facility] Video Visit - Telehealtho n 02-23-2020 [...] interactive video communications from my office using [employer] due to the restrictions of the COVID-19 pandemic. No physical exam was conducted other than those areas of the body visible to telecommunications with the patient located at [address] [place] [address], with no one else in attendance. If [...] Stopped age (more content not included)... Normal [facility] Comment on above: Result Comment: Elec tronically Signed By: Deepa [facility], Maia Ashley\.br\Date and Time Signed: 02/22/20 [...] interactive video communications from my office using [employer] due to the restrictions of the COVID-19 pandemic. No physical exam was conducted other than those areas of the body visible to telecommunications with the patient located at [address] [place] [phone], with no one else in attendance. If [...] Sister. Depres (more content not included)... Normal [facility] Comment on above: Result Comment: Elec tronically Signed By: Deepa [facility]Maia.[email or web address]\Date and Time Signed: 02/11/20 14:46 EDT [...] to telecommunications with the patient located at [address] [place] [phone], with no one else in attendance. If [...] - Denies (more content not included)... Normal [facility] Comment on above: Result Comment: Elec tronically Signed By: Deepa [facility], Maia [email or web address]\Date and Time Signed: 02/11/20 [...] interactive video communications from my office using [employer] due to the restrictions of the COVID-19 pandemic. No physical exam was conducted other than those areas of the body visible to telecommunications with the patient located at [address] [place] [address] [phone], with no one else in attendance. If [...] Tobacco F (more content not included)... Normal [facility] Comment on above: Result Comment: Elec tronically Signed By: Deepa [facility]ITAL[facility] [email or web address].[email or web address]\Date and Time Signed: 01/29/20 21:44 EDT [...] interactive video communications from my office using [employer] due to the restrictions of the COVID-19 pandemic. No physical exam was conducted other than those areas of the body visible to telecommunications with the patient located at [address] [place] [address] [phone], with no one else in attendance. If [...] No. Yes, (more content not included)... Normal [facility] Comment on above: Result Comment: Elec tronically Signed By: Deepa [facility], Maia K\.br\Date and Time Signed: 01/29/20 21:38 EDT Patient Educationon 01-28-20 Patient Education aripiprazole (KEMAR welsh) Say Lerma [...] drow (more content not included)... Normal [facility] Video Visit - Telehealtho n 01-13-2020 [...] interactive video communications from my office using [employer] due to the restrictions of the COVID-19 pandemic. No physical exam was conducted other than those areas of the body visible to telecommunications with the patient located at [address] [place] [address], with no one else in attendance. If [...] Tobacco For (more content not included)... Normal [facility] Comment on above: Result Comment: Elec tronically Signed By: Deepa [facility], Maia Montero.mati\Date and Time Signed: 01/13/20 [...] drow (more content not included)... Normal [facility] Video Visit - Telehealtho n 01-07-2020 [...] interactive video communications from my office using [employer] due to the restrictions of the COVID-19 pandemic. No physical exam was conducted other than those areas of the body visible to telecommunications with the patient located at [address] [place] [address], with no one else in attendance. If [...] Use:. N (more content not included)... Normal [facility] Comment on above: Result Comment: Elec tronically Signed By: Deepa [facility], Maia Montero.br\Date and Time Signed: 01/07/20 [...] interactive video communications from my office using [employer] due to the restrictions of the COVID-19 pandemic. No physical exam was conducted other than those areas of the body visible to telecommunications with the patient located at [address] [place] [address] [phone], with no one else in attendance. If [...] Alcoholism: Father and (more content not included)... [facility] Comment on above: Result Comment: Elec tronically Signed By: Deepa [facility].mati\Date and Time Signed: 12/30/19 13:50 EDT [...] interactive video communications from my office using [employer] due to the restrictions of the COVID-19 pandemic. No physical exam was conducted other than those areas of the body visible to telecommunications with the patient located at [address] [place] [address] [phone], with no one else in attendance. If [...] Alcohol U (more content not included)... Normal [facility] Comment on above: Result Comment: Elec tronically Signed By: Deepa [facility], Maia Ashley\.mati\Date and Time Signed: 12/23/19 [...] drow (more content not included)... Normal [facility] Video Visit - Telehealtho n 12-04-2019 [...] interactive video communications from my office using [employer] due to the restrictions of the COVID-19 pandemic. No physical exam was conducted other than those areas of the body visible to telecommunications with the patient located at [address] [place] [address], with no one else in attendance. If [...] Daily, 5 (more content not included)... Normal [facility] Comment on above: Result Comment: Elec tronically Signed By: Deepa [facility].mati\Date and Time Signed: 12/04/19 09:42 EDT Patient [...] rate, h (more content not included)... Normal [facility] Vital Signs Date Time Vital Sign Value Performing Clinician Facility 05-13-2024 15:04-0500 Body mass index (BMI) [Ratio] 41.67 kg/m2 Liza ANTONIO Work Phone: [facility] 05-13-2024 15:04-0500 Body weight 103.33 kg Liza ANTONIO Work Phone: [facility] 05-13-2024 15:04-0500 Diastolic blood pressure 82 mm[Hg] Liza ANTONIO Work Phone: [facility] 05-13-2024 15:04-0500 Systolic blood pressure 140 mm[Hg] Liza ANTONIO Work Phone: [facility] 04-03-2024 13:59-0500 Body mass index (BMI) [Ratio] 42.07 kg/m2 Johnathan Jorje DO Work Phone: [facility] 04-03-2024 13:59-0500 Body weight 104.33 kg Johnathan Jorje DO Work Phone: [facility] 04-03-2024 13:59-0500 Diastolic blood pressure 78 mm[Hg] Johnathan Jorje DO Work Phone: [facility] 04-03-2024 13:59-0500 Systolic blood pressure 110 mm[Hg] Johnathan Jorje DO Work Phone: [facility] 03-21-2024 14:01-0500 Body mass index (BMI) [Ratio] 41.7 kg/m2 Liza ANTONIO Work Phone: [facility] 03-21-2024 14:01-0500 Body weight 103.42 kg Liza Kt PA Work Phone: [facility] 03-21-2024 14:01-0500 Diastolic blood pressure 72 mm[Hg] Liza Kt PA Work Phone: [facility] 03-21-2024 14:01-0500 Systolic blood pressure 112 mm[Hg] Liza Wilmington PA Work Phone: [facility] 03-11-2024 14:26-0500 Body mass index (BMI) [Ratio] 41.96 kg/m2 Liza Kt PA Work Phone: [facility] 03-11-2024 14:26-0500 Body weight 104.06 kg Liza Wil[place] PA Work Phone: [facility] 03-11-2024 14:26-0500 Diastolic blood pressure 70 mm[Hg] Liza Kt PA Work Phone: [facility] 03-11-2024 14:26-0500 Systolic blood pressure 120 mm[Hg] Liza [place] PA Work Phone: [facility] 03-06-2024 11:20-0500 Body mass index (BMI) [Ratio] 41.34 kg/m2 Johnathan Jorje DO Work Phone: [facility] 03-06-2024 11:20-0500 Body weight 102.51 kg Johnathan Jorje DO Work Phone: [facility] 03-06-2024 11:20-0500 Diastolic blood pressure 68 mm[Hg] Johnathan Jorje DO Work Phone: [facility] 03-06-2024 11:20-0500 Systolic blood pressure 120 mm[Hg] Johnathan Jorje DO Work Phone: [facility] 02-21-2024 13:57-0400 Body mass index (BMI) [Ratio] 41.3 kg/m2 Johnathan Jorje DO Work Phone: [facility] 02-21-2024 13:57-0400 Body weight 102.42 kg Johnathan Jorje DO Work Phone: [facility] 02-21-2024 13:57-0400 Diastolic blood pressure 70 mm[Hg] Johnathan Jorje DO Work Phone: [facility] 02-21-2024 13:57-0400 Systolic blood pressure 100 mm[Hg] Johnathan Jorje DO Work Phone: [facility] 02-15-2024 13:03-0400 Body height 160 cm Malena Cardona MD Work Phone: [facility] 02-15-2024 13:03-0400 Body mass index (BMI) [Ratio] 39.65 kg/m2 Malena Cardona MD Work Phone: [facility] 02-15-2024 13:03-0400 Body weight 101.52 kg Malena Cardona MD Work Phone: [facility] 02-15-2024 13:03-0400 Diastolic blood pressure 74 mm[Hg] Malena Cardona MD Work Phone: [facility] 02-15-2024 13:03-0400 Heart rate 94 /min Malena Cardona MD Work Phone: [facility] 02-15-2024 13:03-0400 Systolic blood pressure 123 mm[Hg] Malena Cardona MD Work Phone: [facility] 01-24-2024 11:57-0400 Body mass index (BMI) [Ratio] 41.15 kg/m2 Johnathan Jorje DO Work Phone: [facility] 01-24-2024 11:57-0400 Body weight 102.06 kg Johnathan Jorje DO Work Phone: [facility] 01-24-2024 11:57-0400 Diastolic blood pressure 78 mm[Hg] Johnathan Jorje DO Work Phone: [facility] 01-24-2024 11:57-0400 Systolic blood pressure 124 mm[Hg] Johnathan Jorje DO Work Phone: [facility] 01-03-2024 15:02-0400 Body mass index (BMI) [Ratio] 42.07 kg/m2 Liza Duque PA Work Phone: [facility] 01-03-2024 15:02-0400 Body weight 104.33 kg Liza Kt PA Work Phone: [facility] 01-03-2024 15:02-0400 Diastolic blood pressure 74 mm[Hg] Liza Kt PA Work Phone: [facility] 01-03-2024 15:02-0400 Systolic blood pressure 122 mm[Hg] Liza Corderoey PA Work Phone: [facility] 12-25-2023 11:22-0400 Body mass index (BMI) [Ratio] 40.79 kg/m2 Johnathan Jorje DO Work Phone: [facility] 12-25-2023 11:22-0400 Body weight 101.15 kg Johnathan Jorje DO Work Phone: [facility] 12-25-2023 11:22-0400 Diastolic blood pressure 76 mm[Hg] Johnathan Jorje DO Work Phone: [facility] 12-25-2023 11:22-0400 Systolic blood pressure 122 mm[Hg] Johnathan Jorje DO Work Phone: [facility] 08-18-2023 14:24-0400 Body height 160.02 cm [facility] 08-18-2023 14:24-0400 Body mass index (BMI) [Ratio] 40.2 kg/m2 [facility] 08-18-2023 14:24-0400 Body temperature 98.4 [degF] [facility] 08-18-2023 14:24-0400 Body weight 103.02 kg [facility] 08-18-2023 14:24-0400 Diastolic blood pressure 81 mm[Hg] [facility] 08-18-2023 14:24-0400 Heart rate 101 /min [facility] 08-18-2023 14:24-0400 Respiratory rate 16 /min [facility] 08-18-2023 14:24-0400 SaO2% (BldA) [Mass fraction] 98 % [facility] 08-18-2023 14:24-0400 Systolic blood pressure 133 mm[Hg] [facility] 04-27-2023 16:30-0500 Body height 160.02 cm Sanaz Lockwood Other [facility] [employer] Other 04-27-2023 16:30-0500 Body mass index (BMI) [Ratio] 40.92 kg/m2 Sanaz Lockwood Other [employer] Other 04-27-2023 16:30-0500 Body temperature 98.2 [degF] Sanaz Lockwood Other [employer] Other 04-27-2023 16:30-0500 Body weight 104.78 kg Sanaz Lockwood Other [employer] Other 04-27-2023 16:30-0500 Respiratory rate 18 /min Sanaz Lockwood Other [employer] Other 04-27-2023 16:30-0500 SaO2% (BldA) [Mass fraction] 99 % Sanaz Lockwood Other [employer] Other 05-10-2022 14:45-0500 Body height 160.02 cm Kaylah Han Other [employer] Other 05-10-2022 14:45-0500 Body mass index (BMI) [Ratio] 38.97 kg/m2 Kaylah Han Other [employer] Other 05-10-2022 14:45-0500 Body temperature 99.3 [degF] Kaylah Han Other [employer] Other 05-10-2022 14:45-0500 Body weight 99.79 kg Kaylah Han Other [employer] Other 06-29-2019 22:40-0500 Pulse (Heart Rate) 84 /min [facility] 06-29-2019 22:40-0500 Pulse Oximetry 97 % [facility] 06-29-2019 22:35-0500 BP Diastolic 56 mm[Hg] [facility] 06-29-2019 22:35-0500 BP Systolic 100 mm[Hg] [facility] 06-29-2019 21:11-0500 BMI (Body Mass Index) 33.1 kg/m2 [facility] 06-29-2019 21:11-0500 Body Temperature 97.8 [degF] [facility] 06-29-2019 21:11-0500 Body weight 84.8 kg [facility] 06-29-2019 21:11-0500 Height 160.02 cm [facility] 06-29-2019 21:11-0500 Respiratory Rate 20 /min [facility] Encounters Encounter Date Encounter Type Care Provider Facility Start: 05-22-2024 End: 05-22-2024 Bamboo flowsheet Johnathan Jorje DO Work Phone: [facility] Start: 05-22-2024 End: 05-22-2024 Bamboo flowsheet Johnathan Jorje DO Work Phone: [facility] Start: 05-13-2024 End: 05-13-2024 ambulatory LIZA DUQUE Not Available Start: 05-13-2024 End: 05-13-2024 Bamboo flowsheet Liza Duque PA Work Phone: [facility] Start: 05-13-2024 End: 05-13-2024 Bamboo flowsheet Liza ANTONIO Work Phone: [facility] Start: 05-13-2024 End: 05-13-2024 flow sheet Liza ANTONIO Work Phone: [facility] Comment on above: 33 weeks [...] Encounter Johnathan Jorje DO Work Phone: [facility] External Department Unsolicited Start: 04-22-2024 End: 04-22-2024 Clinisync Result Encounter Johnathan Jorje DO Work Phone: [facility] External Department Unsolicited Start: 04-22-2024 End: 04-22-2024 ambulatory Johnathan Jorje Facility:[facility] Start: 04-03-2024 End: 04-03-2024 Bamboo flowsheet Johnathan Jorje DO Work Phone: [facility] Start: 04-03-2024 End: 04-06-2024 Bamboo flowsheet Johnathan Jorje DO Work Phone: [facility] Start: 04-03-2024 End: 04-06-2024 External Result Encounter Johnathan Jorje DO Work Phone: [facility] External Department Unsolicited Start: 04-03-2024 End: 04-03-2024 flow sheet Johnathan Jorje DO Work Phone: [facility] Comment on above: 28 weeks gestation o f ; Third trimester ; Flank pain; Acute cystitis with hematuria; Urinary tract infection without hematuria, site unspecified Start: 04-03-2024 End: 04-03-2024 ambulatory JOHNATHAN JORJE Not Available Start: 03-21-2024 End: 03-21-2024 Clinisync Result Encounter Johntahan Jorje DO Work Phone: [facility] Unsolicited Start: 03-21-2024 End: 03-21-2024 Clinisync Result Encounter Johnathan Jorje DO Work Phone: [facility] Unsolicited Start: 03-21-2024 End: 03-21-2024 ambulatory LIZA DUQUE Not Available Start: 03-21-2024 End: 03-21-2024 flow sheet Liza ANTONIO Work Phone: [facility] Comment on above: Second trimester pre gnancy; 26 weeks gestation of ; Elevated glucose tolerance test; Gestational diabetes mellitus (GDM), antepartum, gestational diabetes method of control unspecified Start: 03-14-2024 End: 03-14-2024 [facility] Start: 03-11-2024 End: 03-11-2024 Bamboo flowsheet Liza ANOTNIO Work Phone: [facility] Start: 03-11-2024 End: 03-11-2024 Bamboo flowsheet Liaz ANTONIO Work Phone: [facility] Start: 03-11-2024 End: 03-11-2024 ambulatory LIZA DUQUE Not Available Start: 03-11-2024 End: 03-11-2024 flow sheet Liza ANTONIO Work Phone: [facility] [...] sheet Johnathan Jorje DO Work Phone: [facility] Comment on above: 24 weeks gestation o f ; Second trimester ; Flank pain; Acute cystitis with hematuria Start: 02-26-2024 End: 02-26-2024 ambulatory [facility] Start: 02-21-2024 End: 02-21-2024 Bamboo flowsheet Johnathan Jorje DO Work Phone: [facility] Start: 02-21-2024 End: 02-21-2024 Bamboo flowsheet Johnathan Jorje DO Work Phone: [facility] Start: 02-21-2024 End: 02-21-2024 ambulatory JOHNATHAN JORJE Not Available Start: 02-21-2024 End: 02-21-2024 flow sheet Johnathan Jorje DO Work Phone: [facility] Comment on above: 22 weeks gestation o f ; Second trimester ; Diabetes mellitus screening Start: 02-15-2024 End: 02-15-2024 Office consultation new/estab patient 60 min Malena Cardona MD Work Phone: [facility] Comment on above: 21 weeks gestation o f (Primary Dx); Multigravida of advanced maternal age in second trimester; Pyelonephritis affecting in second trimester; Bipolar disease during in second trimester ([facility] Obesity affecting in second trimester, unspecified obesity type; BMI 39.0-39.9,adult; History of section complicating ; Vapes nicotine containing substance; Current rao with 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, antepartum; History of delivery, currently Start: 02-15-2024 End: 02-15-2024 Orders Only Flor Lopez RN [facility] Comment on above: 21 weeks gestation o f (Primary Dx); Obesity affecting in second trimester, unspecified obesity type Start: 02-15-2024 End: 02-15-2024 ambulatory JOHNATHAN R JORJE [facility] Start: 02-09-2024 End: 02-09-2024 Evaluation and management of inpatient TEJ ZENG [facility] Start: 02-08-2024 End: 02-09-2024 Evaluation and management of inpatient NATO LLOYD [facility] Start: 01-24-2024 End: 01-24-2024 Bamboo flowsheet [...] encounter procedure Johnathan Jorje DO Work Phone: [facility] Start: 01-24-2024 End: 01-24-2024 Periodic preventive med [...] Not Available Start: 08-18-2023 End: 08-18-2023 ambulatory [facility] Work Phone: Start: 08-18-2023 End: 08-18-2023 Patient encounter procedure [facility] Work Phone: Start: 04-27-2023 End: 04-27-2023 ambulatory Sanaz Lockwood Other [employer] Other Start: 04-27-2023 Office outpatient vi sit 25 minutes Sanaz Lockwood [facility] Start: 05-10-2022 End: 05-10-2022 ambulatory Kaylah Han Other [employer] Other Start: 05-10-2022 Office outpatient ne w 20 minutes Kaylah Han [facility] Start: 04-27-2022 End: 04-27-2022 ambulatory KIMBERLYN XIE Facility:[facility] Start: 03-07-2022 End: 03-07-2022 ambulatory KIMBERLYN XIE Facility:[facility] Start: 09-23-[address] JAZIEL HILL Facility :[facility] Start: 06-29-2019 End: 06-29-2019 Emergency department patient visit Kimberlyn Xie [facility] Procedures Date Procedure Procedure Detail Performing Clinician Start: 05-13-2024 Urnls dip stick/tablet rgnt non-auto w/o micrscp Liza ANTONIO Work Phone: Start: 04-22-2024 [facility] UA (CLEAN/CATCH) OPERATOR GROUND BASED AIR DEFENCE/MICRO IF IND. Johnathan Jorje DO Work Phone: [...] Work Phone: Start: 03-06-2024 [facility] UA (CLEAN/CATCH) OPERATOR GROUND BASED AIR DEFENCE/MICRO IF IND. Johnathan Jorje DO Work Phone: [...] dip stick/tablet rgnt non-auto w/o micrscp Liza Duque PA Work Phone: Start: 08-18-2023 Quick Strep (POC) Plan of Treatment Date Care Activity Detail Author Start: 01-23-2027 Screening for malign ant neoplasm of cervix [facility] Start: 02-14-2025 Adult BMI Screening Adult BMI Screen ing [facility] Start: 02-14-2025 Tobacco Screening Tobacco Screening [facility] Start: 02-14-2025 End: 02-14-2025 US MFM with or without consult US MFM with or without consult Imaging Routine 21 weeks gestation of Obesity affecting in second trimester, unspecified obesity type Expected: 02/14/2025 (Approximate), Expires: 02/14/2025 [facility] Work Phone: Comment on above: Expected: 02/14/2025 (Approximate), Expires: 02/14/2025 Start: 05-22-2024 End: 05-22-2024 Patient encounter procedure 05/22/2024 2:20 PM EST Routine [facility] [address] [place] [id number] Johnathan Recinos, DO [address] [place] [address] [facility] Start: 05-13-2024 End: 05-13-2025 US biophysical profile w non stress test US biophysical profile w non stress test Imaging Routine Elevated blood pressure complicating in third trimester, antepartum Gestational diabetes mellitus (GDM) in third trimester, gestational diabetes method of control unspecified Expected: 05/13/2024 (Approximate), Expires: 05/13/2025 [facility] Work Phone: Comment on above: Expected: 05/13/2024 (Approximate), Expires: 05/13/2025 Start: 05-09-2024 End: 05-09-2024 Professional / ancillary services management 05/09/2024 8:30 AM EST Ancillary Procedure [facility] [address] [facility] [id number] [facility] Start: 04-03-2024 End: 04-03-2024 Patient encounter procedure [facility] Comment on above: Arrived Start: 04-03-2024 End: 04-03-2024 Professional / ancillary services management 04/03/2024 1:00 PM EST Ancillary Procedure [facility] [address] [facility] [id number] [facility] Start: 03-21-2024 End: 03-21-2025 Measurement of glucose 3 hours after glucose challenge for glucose tolerance test Glucose tolerance, 3 hours Lab Routine Elevated glucose tolerance test Expected: 03/21/2024 (Approximate), Expires: 03/21/2025 [facility] Work Phone: Comment on above: Expected: 03/21/2024 (Approximate), Expires: 03/21/2025 Start: 03-21-2024 End: 03-21-2025 US for US OB SCAN FOR GROWTH Imaging Routine Gestational diabetes mellitus (GDM), antepartum, gestational diabetes method of control unspecified Expected: 03/21/2024 (Approximate), Expires: 03/21/2025 [facility] Comment on above: Expected: 03/21/2024 (Approximate), Expires: 03/21/2025 Start: 03-21-2024 End: 03-21-2024 Patient encounter procedure 03/21/2024 1:30 PM EST Routine [facility] [address] [place] [phone] Liza Duque PA [address] [place], [place] [id number] [facility] Start: 03-14-2024 End: 03-14-2024 Patient encounter procedure 03/14/2024 9:45 AM EST Appointment [facility] [address] [place] [address] [facility] Start: 02-22-2024 End: 02-22-2024 Patient encounter procedure 02/22/2024 10:15 AM EDT Appointment [facility] [address] [place] [address] [facility] Start: 02-21-2024 End: 02-20-2025 CBC panel - Blood by Automated count CBC Lab Routine Diabetes mellitus screening Expected: 02/21/2024 (Approximate), Expires: 02/20/2025 [facility] Work Phone: Comment on above: Expected: 02/21/2024 (Approximate), Expires: 02/20/2025 Start: 02-21-2024 End: 02-20-2025 Measurement of glucose 1 hour after glucose challenge for glucose tolerance test Glucose tolerance, 1 hour Lab Routine Diabetes mellitus screening Expected: 02/21/2024 (Approximate), Expires: 02/20/2025 [facility] Comment on above: Expected: 02/21/2024 (Approximate), Expires: 02/20/2025 Start: 02-21-2024 End: 02-21-2024 Patient encounter procedure 02/21/2024 1:50 PM EDT Routine [facility] [address] [place] [phone] Johnathan Recinos, [address] [place] [address] [facility] Start: 01-24-2024 End: 02-23-2024 Alpha fetoprotein, maternal Alpha fetoprotein, maternal Lab Routine 18 weeks gestation of Expected: 01/24/2024 (Approximate), Expires: 02/23/2024 [facility] Comment on above: Expected: 01/24/2024 (Approximate), Expires: 02/23/2024 Start: 01-22-2024 End: 01-22-2024 Patient encounter procedure 01/22/2024 10:20 AM EDT Routine [facility] [address] [place] [phone] Johnathan Recinos, DO [address] [place] [address] [facility] Start: 12-31-2023 COVID-19 Vaccine ( season) COVID-19 Vaccine ( season) [facility] Start: 12-31-2023 Influenza vaccination [facility] Start: 10-11-2021 DTaP,Tdap and Td Vaccines (2 - Td or Tdap) DTaP,Tdap and Td Vaccines (2 - Td or Tdap) [facility] Start: 2017 Screening for malign ant neoplasm of cervix [facility] Start: 2008 Screening for malign ant neoplasm of cervix Pap Smear [facility] Start: 2005 Adult BMI Follow Up Plan Adult BMI Follow Up Plan [facility] Start: 1999 Depression Screening Depression Scre ening [facility] Bacteria identified in Urine by Culture Urine culture Microbiology Routine 24 weeks gestation of Second trimester Ordered: 03/06/2024 [facility] Work Phone: Comment on above: Ordered: 03/06/2024 Bacteria identified in Urine by Culture Urine culture Microbiology Routine Flank pain Acute cystitis with hematuria Urinary tract infection without hematuria, site unspecified Ordered: 04/03/2024 [facility] Work Phone: Comment on above: Ordered: 04/03/2024 CHLAMYDIA TRACHOMATI S (GENITO/STI) CHLAMYDIA TRACHOMATIS (GENITO/STI) Lab Routine Exposure to STD Ordered: 01/24/2024 [facility] Comment on above: Ordered: 01/24/2024 Cytology Cervical or vaginal smear or scraping study Pap Smear Pathology and Cytology Routine Well woman exam with routine gynecological exam Ordered: 01/24/2024 [facility] Comment on above: Ordered: 01/24/2024 Human papilloma viru s DNA [Presence] in Unspecified specimen by Probe with amplification HPV DNA probe, amplified Microbiology Routine Well woman exam with routine gynecological exam Ordered: 01/24/2024 [facility] Comment on above: Ordered: 01/24/2024 Neisseria gonorrhoea e DNA [Presence] in Unspecified specimen by J LUIS with probe detection Neisseria gonorrhea DNA probe, direct Lab Routine Exposure to STD Ordered: 01/24/2024 [facility] Comment on above: Ordered: 01/24/2024 Patient Education Epinephrine (B y injection) Anaphylaxis (ED) General Allergic Reaction (ED) [facility] Patient referral [facility] SURESWAB(R) ADVANCED VAGINITIS PLUS, TMA SURESWAB(R) ADVANCED VAGINITIS PLUS, TMA Pathology and Cytology Routine Vaginal discharge Ordered: 01/24/2024 [facility] Work Phone: Comment on above: Ordered: 01/24/2024 Immunizations Immunization Date Immunization Notes Care Provider Butch sims 06-02-2008 influenza virus vacc ine, unspecified formulation Johnathansalomon Riverao DO Work Phone: [facility] Healthcare Payers Date Payer Category Payer Self-pay [id number] 2024 Private Health Insurance [facility] MEDICAID [id number] 2024 Medicaid [id number] 2023 [facility] er [id number] 2023 Blue Cross Blue Shie ld Managed Care - PPO ANTHEM Member Subscriber Plan / Payer (Effective 2023-Present) Name: Maria De Jesus Ruiz Relation to Subscriber: Spouse Name: SANTINO RUIZ Date of : 1983 (Home) Address: [address] [place] [address] Payer ID: [id number] (NAIC) Type: Not on file Address: [address] [place] [id number] 2023 Unknown BCBS BCBS xxxxxx [id number] 2023-Present [phone] [address] [place] [address] [id number] 1987 Unknown [id number] 2.16.840.1.889031.3.579.2 .593 1987 Unknown [id number] 2.16840.1.500455.3.579.2 .593 1987 Unknown [id number] 2.16840.1.593569.3.579.2 .593 1987 Unknown [id number] 2.16840.1.605987.3.579.2 .1286 1987 Unknown [id number] 2.16840.1.249120.3.579.2 .1286 1987 Unknown [id number] 2.16.840.1.048615.3.579.2 .1286 1987 Unknown [id number] 2.16.840.1.915073.3.579.2 .1285 1987 Unknown [id number] 2.16.840.1.104104.3.579.2 .1285 1987 Unknown [id number] 2.16.840.1.249564.3.579.2 .1285 1987 Unknown [id number] 2.16.840.1.560005.3.579.2 .1258 1987 Unknown [id number] 2.16.840.1.418369.3.579.2 .1258 1987 Unknown [id number] 2.16.840.1.753568.3.579.2 .1258 1987 Unknown [id number] 2.16.840.1.812991.3.579.2 .1258 1987 Unknown [id number] 2.16.840.1.643422.3.579.2 .1258 1987 Unknown [id number] 2.16.840.1.357957.3.579.2 .1258 1987 Unknown [id number] 2.16.840.1.289526.3.579.2 .1258 1987 Unknown [id number] 2.16.840.1.992661.3.579.2 .1258 1987 Unknown [id number] 2.16.840.1.869207.3.579.2 .1258 1987 Unknown [id number] 2.16.840.1.468519.3.579.2 .1258 1987 Unknown [id number] 2.16.840.1.749603.3.579.2 .9 1957 Self-pay [id number] 1957 Unknown [id number] Private Health Insurance [facility] [id number] Unknown [id number] 2.16.840.1.283616.3.579.2 .531 Social History Date Type Detail Facility Start: 06-29-2019 End: 08-18-2023 Tobacco smoking status NHIS Smoker (finding) [facility] Start: 1985 Sex Assigned At Female [facility] Start: 06-10-2020 End: 02-15-2024 Sex Assigned At [facility] Start: 02-15-2024 Tobacco smoking status RUST Ex-smoker [facility] Start: 02-15-2024 Tobacco use and exposure Smokeless tobacco non-user [facility] Start: 02-15-2024 Alcoholic beverage intake Lifetime non-drinker (finding) [facility] Start: 06-10-2020 End: 02-15-2024 History of Social function [facility] Childcare Unknown [facility] Start: 02-15-2024 Tobacco Comment PT IS A VAPER [facility] Start: 10-03-2023 [facility] Start: 1985 Sex assigned at Not on file [facility] Start: 12-02-2014 Sex Female (finding) [facility] Start: 02-08-2024 Sexual orientation Heterosexual (finding) [facility] Tobacco smoking stat [facility] Tobacco smoking consumption unknown [facility] Start: 10-26-2023 Gender identity Identifies as female gender (finding) [facility] Medical Equipment Procedure Code Equipment Code Equipment Original Text Equipment Identifier Dates 1 strip by In Vi tro route Daily Use in the morning prior to breakfast, 1 hour after each meal for a total of 4times daily. [id number] Start: 03-25-2024 End: 04-24-2024 1 each by In Vit ro route Daily Use to check FSBS four times daily [id number] Start: 03-25-2024 End: 04-24-2024 Inject 1 each un vickie the skin See administration instructions Use four times daily with insulin pen. [id number] Start: 05-13-2024 End: 06-12-2024 Goals Date Patient Goal Desired Activity /State Personal health goal Comment on above: Formatting of this n ote might be different from the original. Evaluation of progress towards goal: go home today Clinical Notes 12-02-2019 to 05-13-2024 Barbara Guillermo, CONSULTING ANALYST - 05/13/2024 1:50 PM GERMAINGayle Hendricks, CONSULTING ANALYST - 04/03/2024 1:40 PM Ema Duque, PACO - 03/21/2024 1:30 PM Claude Guillermo, CONSULTING ANALYST - 03/11/2024 1:50 PM EST Note Date [...] 81 mg, Daily Blood Glucose Monitoring Suppl (D-HoozOn Glucometer) w/Device kit 1 kit, Does not [...] nursing note reviewed. Exam conducted with a chief customer officer present. Vitals: Estimated body mass index is [...] have been elevated. Patient to report to [facility] for NST/BPP/Cervical Length today for monitoring. Patient to setup the remaining NST/BPPs. Patient to start Lantus today as well for uncontrolled gestational diabetes. Patient to have Repeat on 06/04/24 due to uncontrolled GDM and elevated Bps (mild pre-eclampsia). Documented by Barbara Guillermo LPN on behalf of: Johnathan Recinos DO documented in this encounter [facility] 04-03-2024 History of Present illness [...] 81 mg, Daily Blood Glucose Monitoring Suppl (D-HoozOn Glucometer) w/Device kit 1 kit, Does not [...] nursing note reviewed. Exam conducted with a chief customer officer present. Vitals: Estimated body mass index is [...] Johnathan Recinos DO documented in this encounter [facility] 03-21-2024 History of Present illness [...] Medical History: Diagnosis Date Bipolar 1 disorder ([facility]) HISTORY PAST MEDICAL HISTORY SOCIAL HISTORY Past Medical History: Diagnosis Date Bipolar 1 disorder ([facility]) Social History Tobacco Use Smoking [...] hour glucose order to have done at [facility]. Patient DECLINES 3 hour gtt and would like to start testing FSBS--Patient will be referred to Diabetic Edu at [facility] FB. Follow Up: Patient is to return to office in 2 week for routine OB appointment. Documented by Nettie Frazier MA on behalf of: PACO Freed documented in this encounter [facility] 03-11-2024 History of Present illness [...] nursing note reviewed. Exam conducted with a chief customer officer present. Vitals: Estimated body mass index is [...] of . Nursing will reach out to [facility] to inquire about culture results. Patient does have follow up appointment with Maternal Medicine. Patient to return to clinic in 4 weeks for routine OB appointment. Documented by Barbara Guillermo LPN on behalf of: PACO Freed documented in this encounter [facility] 03-06-2024 History of Present illness [...] nursing note reviewed. Exam conducted with a chief customer officer present. Vitals: Estimated body mass index is [...] Johnathan Recinos DO documented in this encounter [facility] 02-21-2024 History of Present illness [...] Medical History: Diagnosis Date Bipolar 1 disorder ([facility]) HISTORY PAST MEDICAL HISTORY SOCIAL HISTORY Past Medical History: Diagnosis Date Bipolar 1 disorder ([facility]) Social History Tobacco Use Smoking [...] nursing note reviewed. Exam conducted with a chief customer officer present. Vitals: Estimated body mass index is [...] Johnathan Recinos DO documented in this encounter [facility] 02-15-2024 History of Present illness [...] Medical History: Diagnosis Date Bipolar 1 disorder ([facility]) Depression PSHIST: Past Surgical History: [...] 4. Bipolar disease during in second trimester ([facility]) I reviewed with the patient [...] of withdrawal and extrapyramidal effects on reviewed. [facility] Partner should be notified. Lack of controlled human [...] . For prevention of venous thromboembolism in vabt-jyfp-svde groups, pharmacologic thromboprophylaxis should be considered in [...] prevention Cervical length at 22 weeks at [facility] Follow up survey scheduled Serial growth assessments every 4 weeks after the anatomy scan can be done at OB office. ventricles should be measured at each US. If >=10 mm or concern for hydrocephalus refer to [facility]. If you would like [facility] to do the growth US please [...] Malena Cardona MD, FACOG (she/hers) Maternal- Medicine [facility] [address] 1st [place] [address] This document was created with [employer] technology. Though I make every effort to review the dictation as it is transcribed, on occasion the spoken word can be misinterpreted by the technology leading to inappropriate words, phrases, or sentences. This note is addressed to the requesting provider as a consultation for clinical guidance. Specific medical abbreviations are occasionally used and those are generally approved by the [place]?Board of?Obstetrics and?Gynecology?as well as?Jeri lane abbreviations. The above plan of care was based solely on the diagnoses for which a consultation was requested. ?More frequent testing may be indicated based on her other medical/obstetrical conditions. The management of other or medical conditions is beyond the scope of requested consultation and will continue to be followed by the primary licensed pesticide applicator or primary care provider. Note to patient: The 21st Century Cures Act makes medical notes like [...] yes Have you been seen here at [facility] in a previous ? yes Recent ER visits or hospitalizations? 02/07 kidney and bladder infection Bring blood sugar log or meter with you today? (Please bring them with you for every visit at [facility]) na Flu vaccine (Mar-June)? na Any concerns that you would like me to mention to the provider today? no documented in this encounter [facility] 01-24-2024 History of Present illness Narrative Reason for Appointment: Patient ID: Miakela Ruiz is a 38 y.o. female who [...] Medical History: Diagnosis Date Bipolar 1 disorder ([facility]) HISTORY PAST MEDICAL HISTORY SOCIAL HISTORY Past Medical History: Diagnosis Date Bipolar 1 disorder ([facility]) Social History Tobacco Use Smoking [...] 4 section, pt to be referred to [facility] for level II ultrasound. Pt to [...] Johnathan Recinos DO documented in this encounter [facility] 01-03-2024 History of Present illness [...] Medical History: Diagnosis Date Bipolar 1 disorder ([facility]) HISTORY PAST MEDICAL HISTORY SOCIAL HISTORY Past Medical History: Diagnosis Date Bipolar 1 disorder ([facility]) Social History Tobacco Use Smoking [...] of: PACO Freed documented in this encounter [facility] 12-25-2023 History of Present illness [...] History: Diagnosis Date Bipolar 1 disorder ([facility]) Social History Tobacco Use Smoking [...] nursing note reviewed. Exam conducted with a chief customer officer present. Vitals: Estimated body mass index is [...] or undercooked meat, and stay away from [facility]. Patient has been consulted regarding any further do's and don'ts of . Patient voiced understanding and all questions and concerns were answered. Patient complaints of nausea not helped by oral medications. Patient will have referral to [facility] for Zofran pump. Patient aware that [employer] will reach out to her to initiate therapy. Follow Up: Patient is to return in 4 weeks for routine OB appointment. Documented by Barbara Guillermo LPN on behalf of: Liza Duque PA-C documented in this encounter [facility] 04-27-2023 Evaluation note Encounter Date [...] condition. Mar, Sore throat (ICD-10 - J02.9) [facility] 01-10-2023 Evaluation note* Encounter Date Diagnosis [...] weeks for the cough to go away [facility] 11-07-2022 NoteIndication: Abdominal pain. Comparison: None [...] Electronically authenticated by: SURJIT FREITAS Date: 2022-03-07 20:49[facility]11-19-2020 NoteHPI Staff This visit was conducted via phone communications from my office due to the restrictions of the COVID-19 pandemic. No physical exam was conducted due to audio only communication with the patient located at [address] [place], [place] [id number], with no one else. If it is [...] anxiety, # 30 tab(s), Refills(s) 2, Pharmacy: [facility]/pharmacy #[id number], 161, cm, 12/23/19 10:18:00 EDT, Height/Length Dosing, 82, kg, 12/23/19 10:18:00 EDT, Weight Dosing Orders: lurasidone, 20 mg = 1 tab(s), Oral, Daily, with 350 calories; begin this dose first then progress to next dose of 40mg, X 1 week(s), # 7 tab(s), Refills(s) 0, Pharmacy: [facility]/pharmacy #[id number], 161, cm, 12/23/19 10:18:00 EDT, Height/Length Dosing, 82, kg, 12/23/19 10:... lurasidone, 40 mg = 1 tab(s), Oral, Daily, with 350 calories, # 30 tab(s), Refills(s) 1, Pharmacy: [facility]/pharmacy #[id number], 161, cm, [...] (generalized anxiety disorder) Hidr (more content not included)...[facility]: Result Comment: Electronically Signed By: Carlota RODRIGUEZ CNP.mati\Date and Time Signed: 03/19/20 14:27 [id number] NoteI Staff This visit was conducted via two-way, real-time interactive video communications from my office using [employer] due to the restrictions of the COVID-19 pandemic. No physical exam was conducted other than those areas of the body visible to telecommunications with the patient located at [address] [place], [place] [id number], with no one else in attendance. If [...] Ordered: TELEHEALTH Office Visit Level 3 Est 18199 General Treatment Plan Maintain medication regimen _Improve [...] Employed, 03/18/2019 Home/Environment Sylvia (more content not included)...[facility] SystemComment on above: Result Comment: Electronically Signed By: Carlota RODRIGUEZ CNP\harshil\Date and Time Signed: 03/05/20 13:32 [id number] NoteHPI Staff This visit was conducted via two-way, real-time interactive video communications from my office using [employer] due to the restrictions of the COVID-19 pandemic. No physical exam was conducted other than those areas of the body visible to telecommunications with the patient located at [address] [place] [address], with no one else in attendance. If [...] anxiety, # 30 tab(s), Refills(s) 1, [id number] 161, cm, 12/23/19 10:18:00 EDT, Height/Length Dosing, 82, kg, 12/23/19 10:18:00 EDT, Weight Dosing alprazolam, 0.5 mg = 1 tab(s), Oral, TID, PRN for anxiety, # 30 tab(s), Refills(s) 1, Pharmacy: [facility]/pharmacy #[id number], 161, cm, 12/23/19 10:18:00 EDT, Height/Length Dosing, 82, kg, 12/23/19 10:18:00 EDT, Weight Dosing aripiprazole, See Instructions, 1.5 tab po qAM, # 30 tab(s), Refills(s) 2, Pharmacy: [facility]/pharmacy #[id number], 161, cm, 12/23/19 10:18:00 EDT, Height/Length Dosing, 82, kg, 12/23/19 10:18:00 EDT, Weight Dosing aripiprazole, See Instructions, 1 tab po qAM, # 30 tab(s), Refills(s) 5, [id number], 161, cm, 12/23/19 10:18:00 EDT, Height/Length Dosing, 82, kg, 12/23/19 10:18:00 EDT, Weight Dosing cyclobenzaprine, 10 mg = 1 tab(s), Oral, TID, PRN for spasm, # 30 tab(s), Refills(s) 1, [id number], 161, cm, 06/13/19 14:39:00 EST, Height/Length Measured, 82, kg, 06/13/19 14:39:00EST, Weight Measured cyclobenzaprine, 10 mg = 1 tab(s), Oral, TID, PRN for spasm, # 30 tab(s), Refills(s) 1, [id number], 161, cm, 12/23/19 10:18:00 EDT, Height/Length Dosing, 82, kg, 12/23/19 10:18:00 EDT, Weight Dosing General Treatment Plan Maintain medication regimen _Improve mood stability _Improve anxiety control _Improve social and interpersonal functioning Clinical Global Impression 62 Prognosis progressing Follow-up With When Contact Information Carlota RODRIGUEZ CNP In 4 weeks Additional Instructions: (more content not included)...[facility] SystemComment on above:Result Comment: Electronically Signed By: Carlota RODRIGUEZ CNP\.br\Date and Time Signed: 01/27/20 22:35 [id number] NoteI Staff This visit was conducted via two-way, real-time interactive video communications from my office using [employer] due to the restrictions of the COVID-19 pandemic. No physical exam was conducted other than those areas of the body visible to telecommunications with the patient located at [address] [place] [address], with no one else in attendance. If [...] Ordered: TELEHEALTH Office Visit Level 3 Est 60142 General Treatment Plan Maintain medication regimen _Improve [...] Use:. Never Smokeless Tob (more content not included)...[facility] SystemComment on above:Result Comment: Electronically Signed By: Carlota RODRIGUEZ CNP\.br\Date and Time Signed: 01/13/20 09:11 [id number] NoteI Staff This visit was conducted via two-way, real-time interactive video communications from my office using [employer] due to the restrictions of the COVID-19 pandemic. No physical exam was conducted other than those areas of the body visible to telecommunications with the patient located at [address] [place] [phone], with no one else in attendance. If [...] 30 tab(s), Refills(s) 1, Pharmacy: [facility]/pharmacy #[id number], 161, cm, 12/23/19 10:18:00 EDT, Height/Length Dosing, 82, kg, 12/23/19 10:18:00 EDT, Weight Dosing alprazolam, 0.5 mg = 1 tab(s), Oral, TID, PRN for anxiety, # 30 tab(s), Refills(s) 1, Pharmacy: [facility]/pharmacy #[id number], 161, cm, 06/13/19 14:39:00 EST, Height/Length Measured, 82, kg, 06/13/19 14:39:00 EST, Weight Measured aripiprazole, See Instructions, 1 tab po qAM, # 30 tab(s), Refills(s) 0, Pharmacy: [facility]/pharmacy #[id number], 161, cm, [...] Allergies Bactrim Social History (more content not included)...[facility] SystemComment on above:Result Comment: Electronically Signed By: Carlota RODRIGUEZ CNP\harshil\Date and Time Signed: 12/23/19 16:37 [id number] NoteHPI Staff This visit was conducted via two-way, real-time interactive video communications from my office using [employer] due to the restrictions of the COVID-19 pandemic. No physical exam was conducted other than those areas of the body visible to telecommunications with the patient located at [address] [place] [address], with no one else in attendance. If [...] q24hr, # 30 tab(s), Refills(s) 2, Pharmacy: [facility]/pharmacy #[id number],161, cm, 06/13/19 14:39:00 EST, Height/Length Measured, 82, kg, 06/13/19 14:39:00 EST, Weight Measured cyclobenzaprine, 10 mg = 1 tab(s), Oral, TID, PRN for spasm, # 30 tab(s), Refills(s) 1, Pharmacy: [facility]/pharmacy #[id number], 161, cm, [...] Employment/School Employed, 03/18/2019 Home/Environment (more content not included)...[facility] SystemComment on above:Result Comment: Electronically Signed By: Carlota RODRIGUEZ CNP\.br\Date and Time Signed: 12/02/19 16:38 EDTChief complaint+Reason for visit Narrative* Chief Complaint Nausea, diarrhea, fe zhou Reason for Visit Contact with and (guillen spected) exposure to covid-19 Sore throat [facility] Work Phone: evaluation note* Diagnosis Onset Date Resolution Status Contact with and (suspected) exposure to covid-19 noneactive Sore throat noneactive [facility] Work Phone: Evtecation note* Diagnosis 21 weeks gestation of - Primary Obesity affecting in second trimester, unspecified obesity type [facility]* Diagnosis 21 weeks gestation of - Primary Multigravida of advanced maternal age in second trimester Pyelonephritis affecting in second trimester Bipolar disease during in second trimester ([facility]) Obesity affecting in second trimester, unspecified obesity type BMI 39.0-39.9,adult History of section complicating Previous delivery, unspecified as to episode of care or not applicable Vapes nicotine containing substance Current rao with 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, antepartum History of delivery, currently with history of pre-term labor documented [facility]* Diagnosis 22 weeks [...] during , antepartum documented in [facility] N[facility]ative - Reported* Type Description Date Medical History Bipolar Surgical History appendectomy Surgical History x 3 Hospitalization History see above surgical histo ry [employer] Other InstructionsNot on filedocumented in this encounter [email or web address]* Attachments The following attachments cannot be sent through Care Everywhere. * Preeclampsia (Maltese) * Movement (Maltese) [facility] Advance Directives Advance Directive Response Recorded Date/ [...] may need to be seen by an space operations if you have other events like this without definite egg exposure. Summary Purpose Family History Relationship Condition Age at Onset Recorded Date/T alo father Diabetes mellitus Unknown Hypertension Unknown Additional Source Comments INFORMATION SOURCE (unrecogn ized section and content) DATE CREATED AUTHOR 10/30/2020 [facility] DATE CREATED AUTHOR AUTHOR'S ORGANIZ ATION 04/29/2022 [facility] DATE CREATED AUTHOR AUTHOR'S ORGANIZ ATION 03/16/2024 [facility] DATE CREATED AUTHOR AUTHOR'S ORGANIZ ATION 04/25/2024 [facility] DATE CREATED AUTHOR AUTHOR'S ORGANIZ ATION 05/14/2024 [facility] EPIC REASON FOR VISIT (unrecogniz [...] Inactive Member Role Status Dates Kimberlyn Xie FILTER TENDER JELLY-C Primary Care Provider Active Start: August 18, 2023 End: August 18, 2023 Sanaz Lockwood APRN Attending Provider Active Start: August 18, 2023 End: August 18, 2023 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 [facility] [employer] [facility]. provides no warranty or guarantee of the accuracy or completeness of information in this document.
--- NOTE | 2024-05-24 12:52 | US_ITS ---
[address] [address] Patient Name: PROSPER RUIZ MRN: [id number] date: 1985 Sex: F Assigned Patient Location: [facility] Current Patient Location: [facility] Accession/Order Number: [id number] Exam Date: 05/24/2024 13:01 Report Date: 05/24/2024 13:34 At the request of: GUERRERO DUQUE Procedure: US OB BPP w non-stress EXAMINATION: US OB BPP w non-stress HISTORY: ELEVATED BLOOD PRESSURE O16.3 COMPARISON: No relevant comparison available. TECHNIQUE: Ultrasound biophysical profile was performed in the radiology department. non-reactive stress testing was performed by nursing staff in the birthing center. FINDINGS: BREATHING MOVEMENTS: 2 GROSS BODY MOVEMENTS: 2 TONE: 2 QUALITATIVE AMNIOTIC FLUID VOLUME: 2 PRESENTATION: CEPHALIC HEART RATE: 143.62 bpm AMNIOTIC FLUID VOLUME: 14.6 cm GESTATIONAL AGE: 35 weeks 3 days US/US OB BPP w non-stress IMPRESSION: Total biophysical profile score: 8 Electronically authenticated by: [employer] [place] Date: 05/24/2024 13:34
[2024-05-24 13:58] VITALS: BP 94/51; PULSE 100
== END 2024-05-24 14:00 | disposition home or self-care (01) ==
LOC: US 00:36 → FBC 12:47
PROVIDERS: PCP Nurse Practitioner Family; Visit Provider Physician Assistant
DX: O16.3 Unspecified maternal hypertension, third trimester (principal); O24.419 Gestational diabetes mellitus in pregnancy, unspecified control; Z3A.35 35 weeks gestation of pregnancy
CPT/HCPCS: 76818

== ENCOUNTER 2024-05-28 00:58 | Outpatient (OUT) | payer BC, OTHER, SELFPAY ==
--- OUTSIDE RECORDS SUMMARY | 2024-05-28 01:03 | XMS_ITS | CCD ---
Author Organization [facility] Care Team Providers Care Pattern Maker Name Role Phone Kimberlyn Xie Primary Care [...] Admitting Unavailable SERGIO, DR SHERIFF Attending Unavailable ROJAS, KIMBERLYN Primary Care Unavailable [...] NO PCP, NO PCP Primary Care Unavailable JOREJ, JOHNATHAN R Referring Unavailable NO PCP, NO PCP Primary Care Unavailable MARTIN RILEY Referring Unavailable NO PCP, NO PCP Primary Care Unavailable JORJE, JOHNATHAN R Referring Unavailable NO PCP, NO PCP Primary Care Unavailable Jorje, Johnathan Attending Unavailable Jorje, Johnathan Admitting Unavailable JORJE, JOHNATHAN Attending Unavailable JORJE, JOHNATHAN Attending Unavailable LIZA DUQUE Attending Unavailable JORJE, JOHNATHAN Attending Unavailable JORJE, JOHNATHAN Attending Unavailable JORJE, JOHNATHAN Attending Unavailable KTLIZA Attending Unavailable LIZA DUQUE Attending Unavailable JORJE, JOHNATHAN Attending Unavailable LZIA DUQUE Attending Unavailable Unavailable Unavailable Unavailable Allergies Allergy Classification Reported Allergen(s) Allergy Type Date of Onset Reaction(s) Facility (3 sources) egg extract; 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: [egg] Drug Allergy 08-18-19 24 Vomiting [facility] (20 sources) Sulfamethoxazole; 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: [SULFAMETHOXAZOLE] Drug Allergy 08-18-19 24 [facility] (20 sources) Trimethoprim; 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: [TRIMETHOPRIM] Drug Allergy 08-18-19 24 [facility] (3 sources) Fish Containing Products; 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: [Fish Containing Products] Propensity to adverse reactions 08-18-19 24 Difficulty Breathing [facility] (1 source) Sulfamethoxazole / Trimethoprim Drug Allergy 02-04-20 13 [facility] (20 sources) Sulfamethoxazole / Trimethoprim Drug Allergy 11-24-19 24 hives, Unknown Workbooks Other (20 sources) Egg-Derived Products Drug Allergy [...] (six) hours as needed for pain. Active [id number] 200 actuat albuterol 0.09 mg/actuat metered dose [...] Glucose Monitoring Suppl (D-Care Glucometer) w/Device kit (11 sources) Start: 03-25-2024 End: 03-25-2025 Blood Glucose [...] oral tablet (1 source) alpha-Adrenergic Agonist, Uncompetitive B-poipnb-Q-aspartate Receptor Antagonist, Sigma-1 Agonist Start: 04-27-2023 take 4 tablets by mouth every twenty-four hours as needed Capmist DM 60-15-400 MG as needed Orally every 4-6 hours as needed, max 4 tablets in 24 hours for 5 days Mar, Active [id number] 0.3 ml EPINEPHrine 1 mg/ml auto-injector (2 sources) alpha-Adrenergic Agonist, beta-Adrenergic Agonist, Catecholamine Start: 06-29-2019 Epinephrine Active 0.3 MG Intramuscular Once June 29, 2019 10:18pm inject into anterolateral [...] 29, 2019 10:18pm hydrOXYzine HCl Active insulin isophane, human 100 unt/ml injectable suspension (2 sources) Start: 05-22-2024 inject 10 [IU] by subcutaneous injection in the morning insulin NPH, Isophane, (HumuLIN N,NovoLIN N) 100 UNIT/ML injection Indications: Gestational diabetes mellitus (GDM) in third trimester, gestational diabetes method of control unspecified Inject 10 Units under the skin in the morning and 10 Units in the evening. Inject before meals. 10 mL 5 05/22/2024 Active insulin, regular, human 100 unt/ml injectable solution (2 sources) Insulin Start: 05-22-2024 End: 06-21-2024 inject 0.05 mL by subcutaneous injection in the morning insulin regular (HumuLIN R,NovoLIN R) 100 UNIT/ML injection Indications: Gestational diabetes mellitus (GDM) in third trimester, gestational diabetes method of control unspecified Inject 0.05 mL (5 Units) under the skin in the morning and 0.05 mL (5 Units) in the evening. Inject with meals. 10 mL 5 05/22/2024 06/21/2024 Active isopropyl alcohol 0.7 ml/ml medicated pad (11 sources) Start: 03-25-2024 Alcohol Swabs (Alcohol Prep [...] 2019 9:40pm take 8 tablets by mo ut in the morning lamoTRIgine (LaMICtal) 25 mg [...] 01/08/2025 Active metoclopramide 10 mg oral tablet (18 sources) Dopamine-2 Receptor Antagonist Start: 04-03-2024 End: [...] Active promethazine hydrochloride 12.5 mg oral tablet (19 sources) Phenothiazine Start: 03-25-20 End: 06-23-19 take [...] Drug Class(es) Dates Sig (Normalized) Sig (Original) insulin glargine 100 unt/ml injectable solution (7 sources) Insulin Analog Start: 05-22-2024 End: 05-22-2024 inject 15 [IU] by subcutaneous injection in the evening insulin glargine (Lantus) 100 UNIT/ML injection Indications: Hyperglycemia , GESTATIONAL DIABETES Inject 15 Units under the skin in the evening 3 mL 3 05/22/2024 05/22/2024 Discontinued (Entered in error) Start: 05-13-2024 End: 06-12-2024 inject 10 [IU] by subcutaneous injection in the evening insulin glargine (Lantus) 100 UNIT/ML injection Indications: Hyperglycemia , GESTATIONAL DIABETES Inject 10 Units under the skin in the evening 3 mL 3 05/13/2024 05/22/2024 Discontinued (Reorder) methylPREDNISolone 4 mg oral tablet (2 sources) Corticosteroid Start: 05-10-2022 methylPREDNISolone 4 MG as directed Orally Once a day for 6 days May, Not-Taking/PRN nitrofurantoin, macrocrystals 25 mg / nitrofurantoin, monohydrate 75 mg oral capsule (2 sources) Nitrofuran Antibacterial Start: 12-05-2023 End: 12-25-2023 take 1 capsule by mouth in the morning nitrofurantoin, macrocrystal-monohydr ate, (Macrobid) 100 MG capsule Indications: Urinary tract infection without hematuria, site unspecified Take 1 capsule (100 mg) by mouth in the morning and 1 capsule (100 mg) before bedtime. Do all this for 7 days. 14 capsule 12/05/2023 12/25/2023 Discontinued (Therapy completed) oseltamivir 75 mg oral capsule (2 sources) Neuraminidase Inhibitor Start: 05-10-2022 take 1 capsule by mouth every twelve hours Tamiflu 75 MG 1 capsule Orally Twice a day for 5 day(s) May, Not-Taking/PRN Problems Active Problems Problem Classification Problem Date Documented Da te Episodic/Chronic Abdominal pain (15 sources) Unspecified abdominal pain; 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: [Flank pain] [...] tolerance complicating ; childbirth; or the puerperium (20 sources) Gestational diabetes mellitus; 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: [Gestational diabetes mellitus in , unspecified control] Onset: 03-21-2024 03-21-2024 Episodic Genitourinary symptoms and ill-defined conditions (1 source) Personal history of urinary (tract) infections; 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: [PERS HX URINARY TRACT INFECTIONS] Onset: 04-29-2022 Episodic Hypertension complicating ; childbirth and the puerperium (7 sources) Elevated blood pressure; 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: [Unspecified maternal [...] 03-09-2022 Episodic Other aftercare (1 source) Other correction (current) drug therapy; 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: [[facility] CURRENT DRUG THERAPY] Onset: 04-29-2022 Episodic Other [...] of ] 03-21-2024 Episodic Residual codes; unclassified (12 sources) Gestation period, 28 weeks; 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: [28 weeks gestation of ] Onset: 04-03-2024 04-03-2024 Episodic Residual codes; unclassified (2 sources) Gestation period, 18 weeks; 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: [18 weeks gestation of ] 01-24-2024 Episodic Residual codes; unclassified (7 sources) Gestation period, 33 weeks; 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: [33 weeks gestation of ] Onset: 05-13-2024 05-13-2024 Episodic Residual codes; unclassified (2 sources) Gestation period, 35 weeks; 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: [35 weeks gestation of ] 05-22-2024 Episodic Substance-related disorders (1 source) Nicotine dependence, cigarettes, uncomplicated; 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: [NICOTINE DEPEND CIGARETTES UNCOMP] Onset: 04-29-2022 Chronic Unclassified (1 source) PERSONAL HISTORY OF COVID-19; 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: [PERSONAL HISTORY OF COVID-19] Onset: 04-29-2022 Unclassified (1 source) transport Onset: 02-08-2024 Urinary tract infections (16 sources) Acute cystitis; 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: [Acute cystitis with hematuria] Onset: 02-08-2024 03-06-2024 Episodic Past or Other Problems Problem Classification Problem Date Documented Da te Episodic/Chronic Other skin disorders (2 sources) Eruption; 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: [Rash and other nonspecific skin eruption] 01-03-2024 Episodic Unclassified (1 source) Suspected COVID-19 virus infection Z20.822 Results Test Name Value Interpretation Reference Range Facility Urinalysis macro (dipstick) panel (U)on 05-22-2024 Bilirubin, UA Negative Negative - 4(70) +++ mg/dL [facility] Blood, UA Negative Negative - 50 Slick/mcL [facility] Clarity, UA Clear [facility] Color, UA Yellow [facility] Glucose, UA Negative Negative - 2000(110) ++++ mg/dL [facility] Interpretation and review of laboratory results Abnormal [facility] Ketones, UA Negative Negative - 160(16) ++++ mg/dL [facility] Leukocytes, UA Trace Negative - 500+++ Mira/mcL [facility] Nitrite, UA Negative Negative - Positive [facility] pH, UA 6 5 - 9 [facility] Protein, UA Trace Negative - 1999(20) ++++ mg/dL [facility] Spec Grav, UA 1.015 1 - 1.03 [facility] Urobilinogen, UA 0.2 0.2 - 12 mg/dL [facility] Urinalysis macro (dipstick) panel (U)on 05-13-2024 Bilirubin, UA Negative Negative - 4(70) +++ mg/dL [facility] Blood, UA Positive Negative - 50 Slick/mcL [facility] Comment on above: trace Clarity, UA Clear [facility] re Color, UA Yellow [facility] Glucose, UA Negative Negative - 1999(110) ++++ mg/dL [facility] Interpretation and review of laboratory results Abnormal [facility] Ketones, UA Negative Negative - 160(16) ++++ mg/dL [facility] Leukocytes, UA Negative Negative - 500+++ Mira/mcL [facility] Nitrite, UA Negative Negative - Positive [facility] pH, UA 6.5 5 - 9 [facility] Protein, UA Negative Negative - 1999(20) ++++ mg/dL [facility] Spec Grav, UA 1.01 1 - 1.03 [facility] Urobilinogen, UA 0.2 0.2 - 12 mg/dL [facility] US OB FOLLOW UP [...] 2513 gm / 5 lbs, 8 oz (0862-9070 gm) [place] Normal: 2393 gm (6416-2342 gm) [place] Wt%: 65% for 34.1 wks Limited for: Growth Presentation: Cephalic Lie: Longitudinal Amniotic Fluid: 21.3 cm Largest Fluid Pocket: 6.8 cm Heart Rate: 129 bpm The following structures are visualized in a limited fashion: Fluid-filled stomach, beating heart. Intracranial contents. IMPRESSION: Single live intrauterine gestation in cephalic position with sonographic EGA 34.1 weeks. Dictated and transcribed 05/09/24/dpd This report has been electronically signed and approved by the interpreting radiologist. Normal Not Available Comment on above: Order Comment: US OB SCAN FOR GROWTH Estimated Date of Delivery: 06/25/24 Gestational Age as of 03/21/2024: 32w3d [facility] UA (CLEAN/CATCH) [employer] RO IF IND.on 04-22-2024 BILIRUBIN URINE Negative [...] (U) No Growth 2 Days PERFORMED BY: [place] [address] PATHOLOGIST DUTY MANAGER SYD SHEFFIELD M.D. Normal [facility] Comment on above: Performed By: #### C UU #### [address] RECURRENT VAGINITIS (HTRX)on 04-06-2024 ATOPOBIUM VAGINAE 0 [facility] ATOPOBIUM VAGINAE Not detected [facility] BVAB 2,3 (BACTERIAL VAGINOSIS ASSOCIATED BACTERIA 2, 3); MOBILUNCUS SPP 0 [facility] BVAB 2,3 (BACTERIAL VAGINOSIS ASSOCIATED BACTERIA 2, 3); MOBILUNCUS SPP Not detected [facility] BRAD ALBICANS, PARAPSILOSIS, TROPICALIS 0 [facility] BRAD ALBICANS, PARAPSILOSIS, TROPICALIS Not detected [facility] BRAD GLABRATA 0 [facility] BRAD GLABRATA Not detected [facility] BRAD KRUSEI 0 [facility] BRAD KRUSEI Not detected [facility] CHLAMYDIA TRACHOMATIS 0 [facility] CHLAMYDIA TRACHOMATIS Not detected [facility] GARDNERELLA VAGINALIS 0 [facility] GARDNERELLA VAGINALIS Not detected N [facility] MEGASPHAERA (TYPES 1, 2) 0 [facility] MEGASPHAERA (TYPES 1, 2) Not detected [facility] MYCOPLASMA GENITALIUM 0 [facility] MYCOPLASMA GENITALIUM Not detected N [facility] NEISSERIA GONORRHOEAE 0 [facility] NEISSERIA GONORRHOEAE Not detected N [facility] TRICHOMONAS VAGINALIS 0 [facility] TRICHOMONAS VAGINALIS Not detected [facility] Urinalysis macro (dipstick) panel (U)on 04-03-2024 Bilirubin, UA Negative Negative - 4(70) +++ mg/dL [facility] Blood, UA Negative Negative - 50 Slick/mcL [facility] Clarity, UA Cloudy [facility] re Color, UA Yellow [facility] Glucose, UA 1+ Negative - 1999(110) ++++ mg/dL [facility] Comment on above: 100mg/dL Interpretation and review of laboratory results Abnormal [facility] Ketones, UA Negative Negative - 160(16) ++++ mg/dL [facility] Leukocytes, UA Trace Negative - 500+++ Mira/mcL [facility] Nitrite, UA Negative Negative - Positive [facility] pH, UA 6 5 - 9 [facility] Protein, UA Negative Negative - 1999(20) ++++ mg/dL [facility] Spec Grav, UA 1.01 1 - 1.03 [facility] Urobilinogen, UA 0.2 0.2 - 12 mg/dL [facility] ALL CBC WITH AUTO DIFFon BASOPHILS ABSOLUTE AUTO 0 [facility] Basophils/100 WBC (Bld) 0.1 % Low 0.2 - 2.0 % [facility] Eosinophils/100 WBC (Bld) 0.5 % Low 0.9 - 7.0 % [facility] Erythrocyte distribution width (RBC) [Ratio] 13.9 % 11.0 - 15.0 % [facility] Hematocrit (Bld) [Volume fraction] 35.2 % Low 36.0 - 48.0 % [facility] Hemoglobin (Bld) [Mass/Vol] 11.5 g/dL Low 12.0 - 16.0 g/dL [facility] IMMATURE GRANULOCYTES ABS AUTO 0.05 High [facility] Immature granulocytes/100 WBC (Bld) 0.6 % High 0.0 - 0.5 % [facility] Interpretation and review of laboratory results Abnormal [facility] LYMPHOCYTES ABSOLUTE AUTO 1.9 [facility] Lymphocytes/100 WBC (Bld) 22.9 % 20.5 - 60.0 % [facility] MCH (RBC) [Entitic mass] 30.5 pg 26.7 - 34.0 pg [facility] MCHC (RBC) [Mass/Vol] 32.7 g/dL 29.9 - 35.2 g/dL [facility] MCV (RBC) [Entitic vol] 93.4 fL 81.0 - 99.0 fL [facility] MONOCYTES ABSOLUTE AUTO 0.3 [facility] Monocytes/100 WBC (Bld) 3.3 % 1.7 - 12.0 % [facility] NEUTROPHILS ABSOLUTE AUTO 6.1 [facility] Neutrophils/100 WBC (Bld) 72.6 % 43.0 - 75.0 % [facility] Platelet mean volume (Bld) [Entitic vol] 10.5 fL 9.5 - 13.5 fL [facility] EO # 0 [facility] PLT [address] [facility] e TB RBC 3.77 [facility] e TB WBC 8.4 [facility] Urinalysis macro (dipstick) panel (U)on 03-21-2024 Bilirubin, UA Negative Negative - 4(70) +++ mg/dL [facility] Blood, UA Negative Negative - 50 Slick/mcL [facility] Clarity, UA Cloudy [facility] Color, UA Yellow [facility] Glucose, UA Positive Negative - 2000(110) ++++ mg/dL [facility] Comment on above: 500 mg Interpretation and review of laboratory results Abnormal [facility] Ketones, UA Negative Negative - 160(16) ++++ mg/dL [facility] Leukocytes, UA Negative Negative - 500+++ Mira/mcL [facility] Healthcare Nitrite, UA Negative Negative - Positive [facility] pH, UA 6.5 5 - 9 [facility] Protein, UA Negative Negative - 1999(20) ++++ mg/dL [facility] Healthcare Spec Grav, UA 1.025 1 - 1.03 [facility] care Urobilinogen, UA 0.2 0.2 - 12 mg/dL [facility] Urinalysis macro (dipstick) panel (U)on 03-11-2024 Bilirubin, UA Negative Negative - 4(70) +++ mg/dL [facility] Blood, UA Positive Negative - 50 Slick/mcL [facility] Comment on above: large Clarity, UA Clear [facility] re Color, UA Straw [facility] Glucose, UA Negative Negative - 1999(110) ++++ mg/dL [facility] Interpretation and review of laboratory results Abnormal [facility] Ketones, UA Negative Negative - 160(16) ++++ mg/dL [facility] Leukocytes, UA Negative Negative - 500+++ Mira/mcL [facility] Nitrite, UA Negative Negative - Positive [facility] pH, UA 6 5 - 9 [facility] Protein, UA Negative Negative - 1999(20) ++++ mg/dL [facility] Spec Grav, UA 1.02 1 - 1.03 [facility] Urobilinogen, UA 0.2 0.2 - 12 mg/dL [facility] U[facility] (CLEAN/CATCH) [employer] IF IND.on 03-06-2024 BILIRUBIN URINE COLOR INTERFERENCE Abnormal NEGATIVE N [facility] BLOOD URINE COLOR INTERFERENCE Abnormal NEGATIVE [facility] Clarity (U) CLEAR CLEAR [facility] re Color (U) DK. RED YELLOW [facility] GLUCOSE URINE UA COLOR INTERFERENCE Abnormal NEGAT CARMELITA mg/dL [facility] Interpretation and review of laboratory results Abnormal [facility] Ketones Ql (U) COLOR INTERFERENCE Abnormal NEGATIV E mg/dL [facility] Leukocyte esterase Test strip Ql (U) COLOR INTERFERENCE Abnormal NEGATIVE [facility] Health care NITRITE URINE COLOR INTERFERENCE Abnormal NEGATIVE [facility] PH URINE COLOR INTERFERENCE Abnormal 5.0 - 9.0 [facility] PROTEIN URINE COLOR INTERFERENCE Abnormal NEG/TRAC E mg/dL [facility] SPECIFIC GRAVITY URINE 1.020 1.005 - 1.025 [facility] URINE MICROSCOPIC INDICATED YES [facility] UROBILINOGEN URINE COLOR INTERFERENCE Abnormal 0.2 - 1.0 EU/dL [facility] Urinalysis macro (dipstick) panel (U)on 03-06-2024 Bilirubin, UA Positive Negative - 4(70) +++ mg/dL [facility] Blood, UA Positive Negative - 50 Slick/mcL [facility] Comment on above: large Clarity, UA Clear [facility] re Color, UA Dark Sanaz [facility] Glucose, UA Negative Negative - 1999(110) ++++ mg/dL [facility] Interpretation and review of laboratory results Abnormal [facility] Ketones, UA Negative Negative - 160(16) ++++ mg/dL [facility] Leukocytes, UA Trace Negative - 500+++ Mira/mcL [facility] Nitrite, UA Positive Negative - Positive [facility] pH, UA 6 5 - 9 [facility] Protein, UA Positive Negative - 1999(20) ++++ mg/dL [facility] Comment on above: 100 Spec Grav, UA 1.02 1 - 1.03 [facility] Urobilinogen, UA 1.0 0.2 - 12 mg/dL [facility] Urinalysis macro (dipstick) panel (U)on 02-21-2024 Bilirubin, UA Negative Negative - 4(70) +++ mg/dL [facility] Blood, UA Negative Negative - 50 Slick/mcL [facility] Clarity, UA Clear [facility] re Color, UA Yellow [facility] Glucose, UA Negative Negative - 1999(110) ++++ mg/dL [facility] Interpretation and review of laboratory results Abnormal [facility] Ketones, UA Negative Negative - 160(16) ++++ mg/dL [facility] Leukocytes, UA Trace Negative - 500+++ Mira/mcL [facility] Nitrite, UA Negative Negative - Positive [facility] pH, UA 5.5 5 - 9 [facility] Protein, UA Negative Negative - 1999(20) ++++ mg/dL [facility] Spec Grav, UA 1.01 1 - 1.03 [facility] Urobilinogen, UA 0.2 0.2 - 12 mg/dL [facility] CBC AND AUTO DIFFon 02-09-20 24 ABSOLUTE BASOPHIL 0.0 X10E9/L Normal 0.0-0.2 [facility] Comment on above: Performed By: #### 3 2132-1, CMP, CBCA #### [facility] ([id number]) [address], [address] [place] [address] ABSOLUTE NEUTROPHIL 5.4 X10E9/L Normal 1.5-6.6 [facility] Comment on above: Performed By: #### 3 2132-1, CMP, CBCA #### [facility] ([id number]) [address], [address] [place] [address] Basophils/100 WBC (Bld) 0.2 % Normal [facility] Comment on above: Performed By: #### 3 2132-1, CMP, CBCA #### [facility] ([id number]) [address], [address] [place] [address] Eosinophils (Bld) [#/Vol] 0.1 10*3/uL Normal 0.0-0.4 [facility] Comment on above: Performed By: #### 3 2132-1, CMP, CBCA #### [facility] ([id number]) [address], [address] [place] [address] Eosinophils/100 WBC (Bld) 0.9 % Normal [facility] Comment on above: Performed By: #### 3 2132-1, CMP, CBCA #### [facility] ([id number]) [address], [address] [place] [address] Erythrocyte distribution width (RBC) [Ratio] 14.3 % Normal 11.5-15.0 [facility] Comment on above: Performed By: #### 3 2132-1, CMP, CBCA #### [facility] ([id number]) [address] [address] [place] [address] Hematocrit (Bld) [Volume fraction] 30.3 % Low 35-47 [facility] Comment on above: Performed By: #### 3 2132-1, CMP, CBCA #### [facility] ([id number]) [address] [address] [place] [address] Hemoglobin (Bld) [Mass/Vol] 10.3 g/dL Low 11.7-15.5 [facility] Comment on above: Performed By: #### 3 2132-1, CMP, CBCA #### [facility] ([id number]) [address] [address] [place] [address] Lymphocytes (Bld) [#/Vol] 1.7 10*3/uL Normal 1.0-3.5 [facility] Comment on above: Performed By: #### 3 2132-1, CMP, CBCA #### [facility] ([id number]) [address] [address] [place] [address] Lymphocytes/100 WBC (Bld) 22.0 % Normal [facility] Comment on above: Performed By: #### 3 2132-1, CMP, CBCA #### [facility] ([id number]) [address] [address] [place] [address] MCH (RBC) [Entitic mass] 31.3 pg Normal 27-34 [facility] Comment on above: Performed By: #### 3 2132-1, CMP, CBCA #### [facility] ([id number]) [address] [address] [place] [address] MCHC (RBC) [Mass/Vol] 34.0 g/dL Normal 32-36 [facility] Comment on above: Performed By: #### 3 2132-1, CMP, CBCA #### [facility] ([id number]) [address], [address] [place] [address] MCV (RBC) [Entitic vol] 92 fL Normal 80-100 [facility] Comment on above: Performed By: #### 3 2132-1, CMP, CBCA #### [facility] ([id number]) [address], [address] [place] [address] Monocytes (Bld) [#/Vol] 0.5 10*3/uL Normal 0-0.9 [facility] Comment on above: Performed By: #### 3 2132-1, CMP, CBCA #### [facility] ([id number]) [address], [address] [place] [address] Monocytes/100 WBC (Bld) 7.0 % Normal [facility] Comment on above: Performed By: #### 3 2132-1, CMP, CBCA #### [facility] ([id number]) [address], [address] [place] [address] Neutrophils/100 WBC (Bld) 69.9 % Normal [facility] Comment on above: Performed By: #### 3 2132-, CMP, CBCA #### [facility] ([id number]) [address], [address] [place] [address] Platelet mean volume (Bld) [Entitic vol] 8.8 fL Normal 7-12 [facility] Comment on above: Performed By: #### 3 2132-1, CMP, CBCA #### [facility] ([id number]) [address], [address] [place] [address] Platelets (Bld) [#/Vol] 259 10*3/uL Normal 150-450 [facility] Comment on above: Performed By: #### 3 2132-1, CMP, CBCA #### [facility] ([id number]) [address], [address] [place], [place] [address] RBC COUNT 3.29 X10E12/L Low 3.80-5.20 [facility] Comment on above: Performed By: #### 3 3-1, CMP, CBCA #### [facility] ([id number]) [address], [address] [place] [address] WBC (Bld) [#/Vol] 7.7 10*3/uL Normal 4.0-11.0 [facility] Comment on above: Performed By: #### 3 2132-1, CMP, CBCA #### [facility] ([id number]) [address], [address] [place] [address] COMPREHENSIVE METABOLIC PANE Paco 02-09-2024 Albumin [Mass/Vol] 2.9 g/dL Low 3.2-5.3 [facility] Comment on above: Performed By: #### 3 2132-1, CMP, CBCA #### [facility] ([id number]) [address], [address] [place] [address] ALP [Catalytic activity/Vol] 118 U/L Normal 39-130 [facility] Comment on above: Performed By: #### 3 2132-1, CMP, CBCA #### [facility] ([id number]) [address], [address] [place] [address] ALT [Catalytic activity/Vol] 6 U/L Normal 0-31 [facility] Comment on above: Performed By: #### 3 2132-1, CMP, CBCA #### [facility] ([id number]) [address], [address] [place] [address] Anion gap [Moles/Vol] 10 mmol/L Normal 5-15 [facility] Comment on above: Performed By: #### 3 2132-1, CMP, CBCA #### [facility] ([id number]) [address], [address] [place] [address] AST [Catalytic activity/Vol] 9 U/L Normal 0-41 [facility] Comment on above: Performed By: #### 3 2132-1, CMP, CBCA #### [facility] ([id number]) [address], [address] [place] [address] Bilirubin [Mass/Vol] 0.4 mg/dL Normal 0.3-1.2 [facility] Comment on above: Performed By: #### 3 2132-1, CMP, CBCA #### [facility] ([id number]) [address], [address] [place] [address] Calcium [Mass/Vol] 8.5 mg/dL Normal 8.5-10.5 [facility] Comment on above: Performed By: #### 3 2132-1, CMP, CBCA #### [facility] ([id number]) [address], [address] [place] [address] Chloride [Moles/Vol] 105 mmol/L Normal 98-109 [facility] Comment on above: Performed By: #### 3 2132-1, CMP, CBCA #### [facility] ([id number]) [address], [address] [place] [address] CO2 [Moles/Vol] 22 mmol/L Normal 22-32 [facility] Comment on above: Performed By: #### 3 2132-1, CMP, CBCA #### [facility] ([id number]) [address], [address] [place] [address] Creatinine [Mass/Vol] 0.45 mg/dL Normal 0.40-1.00 [facility] Comment on above: Result Comment: METH OD TRACEABLE TO IDMS STANDARD Performed By: #### 3 2132-1, CMP, CBCA #### [facility] ([id number]) [address], [address] [place], [place] [address] eGFR (CKD-EPI) NON-RACE DEPENDENT >90 Normal >59 [facility] Comment on above: Result Comment: Reported eGFR is based on the CKD-EPI 2020 equation that does not use a race coefficient. Performed By: #### 3 2132-1, CMP, CBCA #### [facility] ([id number]) [address], [address] [place] [address] Glucose [Mass/Vol] 84 mg/dL Normal 65-99 [facility] Comment on above: Performed By: #### 3 2132-1, CMP, CBCA #### [facility] ([id number]) [address], [address] [place] [address] Potassium [Moles/Vol] 3.7 mmol/L Normal 3.5-5.0 [facility] Comment on above: Performed By: #### 3 2132-1, CMP, CBCA #### [facility] ([id number]) [address], [address] [place] [address] Protein [Mass/Vol] 6.0 g/dL Normal 6.0-8.0 [facility] Comment on above: Performed By: #### 3 2132-1, CMP, CBCA #### [facility] ([id number]) [address], [address] [place] [address] Sodium [Moles/Vol] 137 mmol/L Normal 134-146 [facility] Comment on above: Performed By: #### 3 2132-1, CMP, CBCA #### [facility] ([id number]) [address], [address] [place] [address] Urea nitrogen [Mass/Vol] 5 mg/dL Normal 5-23 [facility] Comment on above: Performed By: #### 3 2132-1, CMP, CBCA #### [facility] ([id number]) [address], [address] [place] [address] MAGNESIUMon 02-09-2024 Magnesium [Mass/Vol] 1.6 mg/dL Low 1.8-2.6 [facility] Comment on above: Performed By: #### 3 2132-1, IZAIAH, CBCA #### [facility] ([id number]) [address], [address] [place] [address] PHOSPHORUSon 02-09-2024 Phosphate [Mass/Vol] 4.5 mg/dL Normal 2.4-4.9 [facility] Comment on above: Performed By: #### 3 2132-1, IZAIAH, CBCA #### [facility] ([id number]) [address], [address] [place] [address] US RETROPERITONEAL LIMITEDon 02-09-2024 US RETROPERITONEAL LIMITED [...] on 02/09/2024 10:14 AM Normal [facility] BLOOD CULTUREon 02-08-2024 Bacteria identified Aer cx Nom (Bld) SPECIMEN NOTES SUBOPTIMAL VOLUME OF BLOOD COLLECTED, RESULTS MAY BE AFFECTED. CULTURE RESULTS NO GROWTH 5 DAYS Normal [facility] Comment on above: Performed By: #### 3 2132-1, IZAIAH, CBCA #### [facility] ([id number]) [address] [place] [address] Bacteria identified Aer cx Nom (Bld) SPECIMEN NOTES SUBOPTIMAL VOLUME OF BLOOD COLLECTED, RESULTS MAY BE AFFECTED. CULTURE RESULTS NO GROWTH 5 DAYS Normal [facility] Comment on above: Performed By: #### 1 7928-3 #### [facility] ([id number]) [address], [address] [place] [address] CBC AND AUTO DIFFon 10-10-20 24 ABSOLUTE BASOPHIL 0.0 X10E9/L Normal 0.0-0.2 [facility] Comment on above: Performed By: #### 3 2132-1, CMP, CBCA #### [facility] ([id number]) [address], [address] [place] [address] ABSOLUTE NEUTROPHIL 9.5 X10E9/L High 1.5-6.6 [facility] Comment on above: Performed By: #### 3 2132-1, CMP, CBCA #### [facility] ([id number]) [address], [address] [place] [address] Basophils/100 WBC (Bld) 0.0 % Normal [facility] Comment on above: Performed By: #### 3 2132-1, CMP, CBCA #### [facility] ([id number]) [address], [address] [place] [address] Eosinophils (Bld) [#/Vol] 0.0 10*3/uL Normal 0.0-0.4 [facility] Comment on above: Performed By: #### 3 2132-1, CMP, CBCA #### [facility] ([id number]) [address], [address] [place] [address] Eosinophils/100 WBC (Bld) 0.0 % Normal [facility] Comment on above: Performed By: #### 3 2132-1, CMP, CBCA #### [facility] ([id number]) [address], [address] [place] [address] Erythrocyte distribution width (RBC) [Ratio] 14.5 % Normal 11.5-15.0 [facility] Comment on above: Performed By: #### 3 2132-1, CMP, CBCA #### [facility] ([id number]) [address], [address] [place] [address] Hematocrit (Bld) [Volume fraction] 31.3 % Low 35-47 [facility] Comment on above: Performed By: #### 3 2132-1, CMP, CBCA #### [facility] ([id number]) [address], [address] [place] [address] Hemoglobin (Bld) [Mass/Vol] 10.6 g/dL Low 11.7-15.5 [facility] Comment on above: Performed By: #### 3 2132-1, CMP, CBCA #### [facility] ([id number]) [address], [address] [place] [address] Lymphocytes (Bld) [#/Vol] 1.1 10*3/uL Normal 1.0-3.5 [facility] Comment on above: Performed By: #### 3 2132-1, CMP, CBCA #### [facility] ([id number]) [address], [address] [place] [address] Lymphocytes/100 WBC (Bld) 9.4 % Normal [facility] Comment on above: Performed By: #### 3 2132-1, CMP, CBCA #### [facility] ([id number]) [address], [address] [place] [address] MCH (RBC) [Entitic mass] 30.8 pg Normal 27-34 [facility] Comment on above: Performed By: #### 3 2132-1, CMP, CBCA #### [facility] ([id number]) [address], [address] [place] [address] MCHC (RBC) [Mass/Vol] 33.9 g/dL Normal 32-36 [facility] Comment on above: Performed By: #### 3 2132-1, CMP, CBCA #### [facility] ([id number]) [address], [address] [place] [address] MCV (RBC) [Entitic vol] 91 fL Normal 80-100 [facility] Comment on above: Performed By: #### 3 2132-1, CMP, CBCA #### [facility] ([id number]) [address], [address] [place] [address] Monocytes (Bld) [#/Vol] 0.9 10*3/uL Normal 0-0.9 [facility] Comment on above: Performed By: #### 3 2132-1, CMP, CBCA #### [facility] ([id number]) [address], [address] [place] [address] Monocytes/100 WBC (Bld) 8.2 % Normal [facility] Comment on above: Performed By: #### 3 2132-1, CMP, CBCA #### [facility] ([id number]) [address], [address] [place] [address] Neutrophils/100 WBC (Bld) 82.4 % Normal [facility] Comment on above: Performed By: #### 3 2132-1, CMP, CBCA #### [facility] ([id number]) [address], [address] [place] [address] Platelet mean volume (Bld) [Entitic vol] 8.5 fL Normal 7-12 [facility] Comment on above: Performed By: #### 3 2132-1, CMP, CBCA #### [facility] ([id number]) [address], [address] [place] [address] Platelets (Bld) [#/Vol] 246 10*3/uL Normal 150-450 [facility] Comment on above: Performed By: #### 3 2132-1, CMP, CBCA #### [facility] ([id number]) [address], [address] [place] [address] RBC COUNT 3.44 X10E12/L Low 3.80-5.20 [facility] Comment on above: Performed By: #### 3 2132-1, CMP, CBCA #### [facility] ([id number]) [address], [address] [place] [address] WBC (Bld) [#/Vol] 11.5 10*3/uL High 4.0-11.0 [facility] Comment on above: Performed By: #### 3 2132-1, CMP, CBCA #### [facility] ([id number]) [address], [address] [place] [address] COMPREHENSIVE METABOLIC PANE Paco 02-08-2024 Albumin [Mass/Vol] 3.1 g/dL Low 3.2-5.3 [facility] Comment on above: Performed By: #### 3 2132-1, CMP, CBCA #### [facility] ([id number]) [address], [address] [place] [address] ALP [Catalytic activity/Vol] 100 U/L Normal 39-130 [facility] Comment on above: Performed By: #### 3 2132-1, CMP, CBCA #### [facility] ([id number]) [address], [address] [place] [address] ALT [Catalytic activity/Vol] 7 U/L Normal 0-31 [facility] Comment on above: Performed By: #### 3 2132-1, CMP, CBCA #### [facility] ([id number]) [address], [address] [place] [address] Anion gap [Moles/Vol] 12 mmol/L Normal 5-15 [facility] Comment on above: Performed By: #### 3 2132-1, CMP, CBCA #### [facility] ([id number]) [address], [address] [place] [address] AST [Catalytic activity/Vol] 8 U/L Normal 0-41 [facility] Comment on above: Performed By: #### 3 2132-1, CMP, CBCA #### [facility] ([id number]) [address], [address] [place] [address] Bilirubin [Mass/Vol] 0.5 mg/dL Normal 0.3-1.2 [facility] Comment on above: Performed By: #### 3 2132-1, CMP, CBCA #### [facility] ([id number]) [address], [address] [place] [address] Calcium [Mass/Vol] 8.3 mg/dL Low 8.5-10.5 [facility] Comment on above: Performed By: #### 3 2132-1, CMP, CBCA #### [facility] ([id number]) [address], [address] [place] [address] Chloride [Moles/Vol] 104 mmol/L Normal 98-109 [facility] Comment on above: Performed By: #### 3 2132-1, CMP, CBCA #### [facility] ([id number]) [address], [address] [place] [address] CO2 [Moles/Vol] 20 mmol/L Low 22-32 [facility] Comment on above: Performed By: #### 3 2132-1, CMP, CBCA #### [facility] ([id number]) [address], [address] [place] [address] Creatinine [Mass/Vol] 0.53 mg/dL Normal 0.40-1.00 [facility] Comment on above: Result Comment: METH OD TRACEABLE TO IDMS STANDARD Performed By: #### 3 2132-1, CMP, CBCA #### [facility] ([id number]) [address], [address] [place] [address] eGFR (CKD-EPI) NON-RACE DEPENDENT >90 Normal >59 [facility] Comment on above: Result Comment: Reported eGFR is based on the CKD-EPI 2020 equation that does not use a race coefficient. Performed By: #### 3 2132-1, CMP, CBCA #### [facility] ([id number]) [address], [address] [place] [address] Glucose [Mass/Vol] 115 mg/dL High 65-99 [facility] Comment on above: Performed By: #### 3 2132-1, CMP, CBCA #### [facility] ([id number]) [address] [address] [place] [address] Potassium [Moles/Vol] 3.6 mmol/L Normal 3.5-5.0 [facility] Comment on above: Performed By: #### 3 2132-1, CMP, CBCA #### [facility] ([id number]) [address], [address] [place] [address] Protein [Mass/Vol] 6.1 g/dL Normal 6.0-8.0 [facility] Comment on above: Performed By: #### 3 2132-1, CMP, CBCA #### [facility] ([id number]) [address], [address] [place] [address] Sodium [Moles/Vol] 136 mmol/L Normal 134-146 [facility] Comment on above: Performed By: #### 3 2132-1, CMP, CBCA #### [facility] ([id number]) [address], [address] [place] [address] Urea nitrogen [Mass/Vol] 3 mg/dL Low 5-23 [facility] Comment on above: Performed By: #### 3 2132-1, CMP, CBCA #### [facility] ([id number]) [address], [address] [place] [address] DRUG SCREEN, URINEon 024 AMPHETAMINE/METHAMP Negative Normal NEG [facility] Comment on above: Result Comment: AMPH /METH screening cut off = 1000 ng/mL Performed By: #### D GUILLEN #### [facility] ([id number]) [address], [address] [place] [address] BARBITURATES Negative Normal NEG [facility] Comment on above: Result Comment: Megan iturates screening cut off value = 200 ng/mL Performed By: #### D GUILLEN #### [facility] ([id number]) [address], [address] [place] [address] BENZODIAZEPINES Negative Normal NEG [facility] Comment on above: Result Comment: Giorgio odiazepines screening cut off value = 200 ng/mL Performed By: #### D GUILLEN #### [facility] ([id number]) [address], [address] [place] [address] CANNABINOIDS Negative Normal NEG [facility] Comment on above: Result Comment: Elsie abinoids/THC screening cut off value = 50 ng/mL Performed By: #### D GUILLEN #### [facility] ([id number]) [address] [place] [address] COCAINE METABOLITE Negative Normal NEG [facility] Comment on above: Result Comment: Coca ine screening cut off value = 300 ng/mL Performed By: #### D GUILLEN #### [facility] ([id number]) [address], [address] [place] [address] ECSTASY Negative Normal NEG [facility] Comment on above: Result Comment: Ecst asy screening cut off value = 500 ng/mL This report is intended for use in clinical monitoring or management of patients. Performed By: #### D GUILLEN #### [facility] ([id number]) [address], [address] [place] [address] METHADONE Negative Normal NEG [facility] Comment on above: Result Comment: Meth adone screening cut off value = 300 ng/mL. Performed By: #### D GUILLEN #### [facility] ([id number]) [address] [place] [address] OPIATES Negative Normal NEG [facility] Comment on above: Result Comment: Opia joey screening cut off value = 300 ng/mL NOTE: This test is used for the detection of codeine, hydrocodone (>1000 ng/mL), morphine and hydromorphone (>900 ng/mL) in urine. Performed By: #### D GUILLEN #### [facility] ([id number]) [address], [address] [place] [address] OXYCODONE Negative Normal NEG [facility] Comment on above: Result Comment: Oxyc odone screening cut off value = 300 ng/mL NOTE: This test is used for the detection of oxycodone and oxymorphone in urine. Performed By: #### D GUILLEN #### [facility] ([id number]) [address], [address] [place] [address] PHENCYCLIDINE Negative Normal NEG [facility] Comment on above: Result Comment: Phen cyclidine screening cut off value = 25 ng/mL Performed By: #### D GUILLEN #### [facility] ([id number]) [address], [address] [place] [address] Glucose Glucometer (BldC) [M ass/Vol]on 02-08-2024 Glucose [Mass/Vol] 107 mg/dL High 65-99 [facility] Lactate (P melvin) [Moles/Vol]o n 02-08-2024 LACTATE W/REFLEX 1.0 mmol/L Normal 0.4-2.0 [facility] Comment on above: Result Comment: Result did not trigger repeat Lactate, re-order if needed. Performed By: #### 7 5241-0, 95978-4 #### [facility] ([id number]) [address], [address] [place] [address] LACTATE W/REFLEX 0.8 mmol/L Normal 0.4-2.0 [facility] Comment on above: Result Comment: Result did not trigger repeat Lactate, re-order if needed. Performed By: #### 3 2133-1, CMP, CBCA #### [facility] ([id number]) [address], [address] [place] [address] Procalcitonin IA [Mass/Vol]o n 02-08-2024 PROCALCITONIN 0.74 ng/mL High <0.05 [facility] Comment on above: Result Comment: NOTE <0.50 ng/mL - Low risk of severe sepsis and/or septic shock. <2.00 ng/mL - Recommend retesting within 6-24 hours. >2.00 ng/mL - High risk of sepsis and/or septic shock. Performed By: #### 7 5241-0, 80769-5 #### [facility] ([id number]) [address], [address] [place] [address] URINALYSISon 02-08-2024 Bilirubin Ql (U) Negative Normal NEG [facility] Comment on above: Performed By: #### U A #### [facility] ([id number]) [address] [address] BLOOD/HGB Small Abnormal NEG [facility] Comment on above: Performed By: #### U A #### [facility] ([id number]) [address] [address] [place] [address] Color (U) YELLOW Normal YELLOW [facility] Comment on above: Performed By: #### U A #### [facility] ([id number]) [address] [address] [place] [address] Glucose Ql (U) Negative Normal NEG [facility] Comment on above: Performed By: #### U A #### [facility] ([id number]) [address], [address] [place] [address] Ketones Ql (U) 20 mg/dL Abnormal NEG [facility] Comment on above: Performed By: #### U A #### [facility] ([id number]) [address] [place] [address] Leukocyte esterase Test strip Ql (U) Negative Normal NEG [facility] Comment on above: Performed By: #### U A #### [facility] ([id number]) [address] [place] [address] MUCOUS PRESENT Abnormal NONE [facility] Comment on above: Performed By: #### U A #### [facility] ([id number]) [address] [place] [address] Nitrite Ql (U) Negative Normal NEG [facility] Comment on above: Performed By: #### U A #### [facility] ([id number]) [address], [address] [place] [address] pH (U) 8.0 [pH] Normal 5.0-8.5 [facility] Comment on above: Performed By: #### U A #### [facility] ([id number]) [address] [place] [address] Protein Ql (U) Trace Abnormal NEG [facility] Comment on above: Performed By: #### U A #### [facility] ([id number]) [address] [place] [address] R.B.CELLS 16 /hpf High 0-5 [facility] Comment on above: Performed By: #### U A #### [facility] ([id number]) [address], [address] [place] [address] Specific gravity (U) [Rel density] 1.012 Normal 1.003-1.035 [facility] Comment on above: Performed By: #### U A #### [facility] ([id number]) [address] [place] [address] SQUAMOUS EPITHELIUM 1 /hpf Normal 0-5 [facility] Comment on above: Performed By: #### U A #### [facility] ([id number]) [address] [place] [address] TRANSITIONAL EPITH <1 High 0 [facility] Comment on above: Performed By: #### U A #### [facility] ([id number]) [address] [place] [address] TURBIDITY CLEAR Normal CLEAR [facility] Comment on above: Performed By: #### U A #### [facility] ([id number]) [address] [place] [address] Urobilinogen Qn (U) 2 {Blanca'U}/dL High <1.1 [facility] Comment on above: Performed By: #### U A #### [facility] ([id number]) [address] [place] [address] W.B.CELLS 2 /hpf Normal 0-5 [facility] Comment on above: Performed By: #### U A #### [facility] ([id number]) [address], [address] [place] [address] URINE CULTUREon 02-08-2024 Bacteria identified Cx Nom (U) CULTURE RESULTS NO GROWTH AT <1000 CFU/mL Normal [facility] Comment on above: Performed By: #### 3 2133-1, CMP, CBCA #### [facility] ([id number]) [address], [address] [place] [address] XR CHEST 1 VWon 02-08-2024 XR CHEST [...] on 02/08/2024 9:35 AM Normal [facility] URETHRITIS/DISCHARGE PLUS VA GINITIS (HTRX)on 01-27-2024 [...] [facility] AFP VALUE 35.9 ng/mL . [facility] COMMENT: Comment . [facility] Comment on above: Nette Holley , Ph.D., [facility] Director References: Available Upon Request. Multiples Of Median Cutoffs For AFP Elevations Rao 2.5 Black 2.8 IDD 2.0 Twins 4.5 Abbreviation Definitions IDD - Insulin Dep Diabetes OSBR - Open Spina Bifida Risk For further inquiries contact [facility] at [phone]. This test was developed and its performance characteristics determined by 5 CUPS and some sugar. It has not been cleared or approved by the Food and Drug Administration. Performed at: [facility] [address] [place], [place] [id number] Kettle Operator: Ashley Duggan [facility], Phone: [phone] GEST. AGE ON COLLECTION DATE 17.9 . weeks [facility] GESTAT. AGE BASED ON As provided . [facility] Comment on above: Recalculations are n ot recommended when gestational dating by LMP and ultrasound are within 10 days. INSULIN DEP DIABETES No . [facility] INTERPRETATION Comment . [facility] on above: Interpretation: Scre en Negative [...] Customer Services to discuss available options. The [employer] recommends amniocentesis be offered to women age 35 and older. [age] [facility] MULTIPLE GESTATION No . [facility] [employer] OSBR RISK 1 [place] [id number] . [facility] Other . [facility] The [employer] e RESULTS Report . [facility] TEST RESULTS: Negative . [facility] WEIGHT 225 . lbs [facility] PREGNANY N N ULTRASOUND [phone] N 1 Y 225 N N N N N White/ [facility] Urinalysis macro (dipstick) panel (U)on 01-24-2024 Bilirubin, UA Negative Negative - 4(70) +++ mg/dL [facility] Blood, UA Negative Negative - 50 Slick/mcL [facility] Clarity, UA Clear [facility] Healthct re Color, UA Yellow [facility] Glucose, UA Negative Negative - 2000(110) ++++ mg/dL [facility] Interpretation and review of laboratory results Abnormal [facility] Ketones, UA Negative Negative - 160(16) ++++ mg/dL [facility] Leukocytes, UA Trace Negative - 500+++ Mira/mcL [facility] Nitrite, UA Negative Negative - Positive [facility] pH, UA 6.5 5 - 9 [facility] Protein, UA Negative Negative - 1999(20) ++++ mg/dL [facility] Spec Grav, UA 1.020 1 - 1.03 [facility] Urobilinogen, UA 1.0 0.2 - 12 mg/dL [facility] Urinalysis macro (dipstick) panel (U)on 01-03-2024 Bilirubin, UA Negative Negative - 4(70) +++ mg/dL [facility] Blood, UA Positive Negative - 50 Slick/mcL [facility] Comment on above: trace Clarity, UA Clear [facility] Healthct re Color, UA Yellow [facility] Glucose, UA Negative Negative - 1999(110) ++++ mg/dL [facility] Interpretation and review of laboratory results Abnormal [facility] Ketones, UA Negative Negative - 160(16) ++++ mg/dL [facility] Leukocytes, UA Positive Negative - 500+++ Mira/mcL [facility] Comment on above: small Nitrite, UA Negative Negative - Positive [facility] pH, UA 6.0 5 - 9 [facility] Protein, UA Negative Negative - 1999(20) ++++ mg/dL [facility] Spec Grav, UA 1.020 1 - 1.03 [facility] Urobilinogen, UA 0.2 0.2 - 12 mg/dL [facility] No Panel InformationOrdered By: Sanaz Lockwood on 08-18-2023 Quick Strep (POC) [facility] COVID + FLU Quick Testingon 04-27-2023 SARS-CoV-2 (COVID-19) RNA J LUIS+probe Ql (Unsp spec) Negative [employer] Other COVID + FLU Quick Testing Negative [employer] Other Quick Strepon 04-27-2023 S. pyogenes Org specific cx Ql (Throat) Negative [employer] Other Quick Strep [employer] Other COVID/FLU/RSV RT-PCRon 05-10 SARS-CoV-2 (COVID-19) RNA J LUIS+probe Ql (Unsp spec) Negative [facility] [employer] Other COVID/FLU/RSV RT-PCR Positive [facility] [employer] Other COVID/FLU/RSV RT-PCR [facility] [employer] Other CBC AUTO DIFFon 04-27-2022 BASO # 0.0 103/ul Normal 0.0-0.1 [facility] Comment on above: Performed By: #### C BC #### [facility] [address] [place] [address] Dr. Dee Humphrey Basophils/100 WBC (Bld) 0.2 % Normal 0.2-2.0 [facility] Comment on above: Performed By: #### C BC #### [facility] [address] [place] [address] Dr. Dee Humphrey EO # 0.1 103/ul Normal 0.0-0.7 [facility] Comment on above: Performed By: #### C BC #### [facility] [address] [place] [address] Dr. Dee Humphrey Eosinophils/100 WBC (Bld) 0.6 % Critically low 0.9-7.0 [facility] Comment on above: Performed By: #### C BC #### [facility] [address] [place] [address] Dr. Dee Humphrey Erythrocyte distribution width (RBC) [Ratio] 14.1 % Normal 11.0-15.0 [facility] Comment on above: Performed By: #### C BC #### [facility] [address] [place] [address] Dr. Dee Humphrey Hematocrit (Bld) [Volume fraction] 37.1 % Normal 36.0-48.0 [facility] Comment on above: Performed By: #### C BC #### [facility] [address] [place] [address] Dr. Dee Humphrey Hemoglobin (Bld) [Mass/Vol] 12.4 g/dL Normal 12.0-16.0 [facility] Comment on above: Performed By: #### C BC #### [facility] [address] [place] [address] Dr. Dee Humphrey IG # 0.06 10e3/ul Critically high 0.00-0.03 [facility] Comment on above: Performed By: #### C BC #### [facility] [address] [place] [address] Dr. Dee Humphrey IG % 0.5 % Normal 0.0-0.5 [facility] Comment on above: Performed By: #### C BC #### [facility] [address] [place] [address] Dr. Dee Humphrey LYMPH # 3.7 103/ul Normal 1.2-3.8 [facility] Comment on above: Performed By: #### C BC #### [facility] [address] [place] [address] Dr. Dee Humphrey Lymphocytes/100 WBC (Bld) 28.7 % Normal 20.5-60.0 [facility] Comment on above: Performed By: #### C BC #### [facility] [address] [place] [address] Dr. Dee Humphrey MANUAL DIFF REQ NO Normal [facility] Comment on above: Performed By: #### C BC #### [facility] [address] [place] [address] Dr. Dee Humphrey MCH (RBC) [Entitic mass] 30.2 pg Normal 26.7-34.0 [facility] Comment on above: Performed By: #### C BC #### [facility] [address] [place] [address] Dr. Dee Humphrey MCHC (RBC) [Mass/Vol] 33.4 g/dL Normal 29.9-35.2 [facility] Comment on above: Performed By: #### C BC #### [facility] [address] [place] [address] Dr. Dee Humphrey MCV (RBC) [Entitic vol] 90.5 fL Normal 81.0-99.0 [facility] Comment on above: Performed By: #### C BC #### [facility] [address] [address] [address] Dee Humphrey MONO # 0.7 103/ul Normal 0.3-0.8 [facility] Comment on above: Performed By: #### C BC #### [facility] [address] [address] [address] Dee Humphrey Monocytes/100 WBC (Bld) 5.0 % Normal 1.7-12.0 [facility] Comment on above: Performed By: #### C BC #### [facility] [address] [place] [address] Dr. Dee Humphrey NEUT # 8.5 103/ul Critically high 1.4-6.5 [facility] Comment on above: Performed By: #### C BC #### [facility] [address] [place] [address] Dr. Dee Humphrey Neutrophils/100 WBC (Bld) 65.0 % Normal 43.0-75.0 [facility] Comment on above: Performed By: #### C BC #### [facility] [address] [place] [address] Dr. Dee Humphrey Platelet mean volume (Bld) [Entitic vol] 9.6 fL Normal 9.5-13.5 [facility] Comment on above: Performed By: #### C BC #### [facility] [address] [place] [address] Dr. Dee Humphrey PLT 317 103/ul Normal 150-450 [facility] Comment on above: Performed By: #### C BC #### [facility] [address] [place] [address] Dr. Dee Humphrey RBC 4.10 106/ul Critically low 4.20-5.40 [facility] Comment on above: Performed By: #### C BC #### [facility] [address] [place] [address] Dr. Dee Humphrey WBC 13.1 103/ul Critically high 4.0-11.[address] [facility] Comment on above: Performed By: #### C BC #### [facility] [address] [address] [address] ABD/PELVIS WO CONon [...] ROCIO CHAU Date: 2022-04-27 20:24 Normal [facility] ER URINE PROFILEon 2 Bilirubin Ql (U) Negative Normal NEGATIVE [facility] Comment on above: Performed By: #### P REGU, ERUR #### [facility] [address] [place] [address] Dr. Dee Humphrey Clarity (U) CLEAR Normal CLEAR [facility] Comment on above: Performed By: #### P REGU, ERUR #### [facility] [address] [place] [address] Dr. Dee Humphrey Color (U) YELLOW Normal YELLOW [facility] Comment on above: Performed By: #### P REGU, ERUR #### [facility] [address] [address] [address] Dee STANFORD A micrscopic examination will be performed if indicated. Normal [facility] Comment on above: Performed By: #### P REGU, ERUR #### [facility] [address] [place] [address] Dr. Dee Humphrey Glucose Ql (U) Negative Normal NEGATIVE [facility] Comment on above: Performed By: #### P REGU, ERUR #### [facility] [address] [address] [address] Dee Humphrey Hemoglobin Ql (U) Negative Normal NEGATIVE [facility] Comment on above: Performed By: #### P REGU, ERUR #### [facility] [address] [place] [address] Dr. Dee Humphrey Ketones Ql (U) Negative Normal NEGATIVE [facility] Comment on above: Performed By: #### P REGU, ERUR #### [facility] [address] [place] [address] Dr. Dee Humphrey LEUKOCYTES Negative Normal NEGATIVE [facility] Comment on above: Performed By: #### P REGU, ERUR #### [facility] [address] [place] [address] Dr. Dee Humphrey Nitrite Ql (U) Negative Normal NEGATIVE [facility] Comment on above: Performed By: #### P REGU, ERUR #### [facility] [address] [place] [address] Dr. Dee Humphrey pH (U) 5.5 [pH] Normal 5-9 [facility] Comment on above: Performed By: #### P REGU, ERUR #### [facility] [address] [place] [address] Dr. Dee Humphrey SPEC GRAVITY >=1.030 Abnormal 1.005-<=1.02 5 [facility] Comment on above: Performed By: #### P REGU, ERUR #### [facility] [address] [place] [address] Dr. Dee Humphrey UA PROTEIN Negative Normal NEGATIVE/ TRACE [facility] Comment on above: Performed By: #### P REGU, ERUR #### [facility] [address] [place] [address] Dr. Dee Humphrey UR MICRO IND NOT INDICATED Normal [facility] Comment on above: Performed By: #### P REGU, ERUR #### [facility] [address] [place] [address] Dr. Dee Humphrey Urobilinogen Qn (U) 0.2 {Blanca'U}/dL Normal 0.2 - 1. 0 [facility] Comment on above: Performed By: #### P REGU, ERUR #### [facility] [address] [place] [address] Dr. Dee Humphrey LIPASEon 04-27-2022 Lipase [Catalytic activity/Vol] 94.0 U/L Normal 73.0-393.0 [facility] Comment on above: Performed By: #### L IPA, CMP #### [facility] [address] [place] [address] Dr. Dee Humphrey URon 04-27-2022 , QUAL Negative Normal NEGATIVE [facility] Comment on above: Performed By: #### P REGU, ERUR #### [facility] [address] [place] [address] Dr. Dee Humphrey PROF 14(COMP METB)on 022 Albumin [Mass/Vol] 3.9 g/dL Normal 3.4-5.0 [facility] Comment on above: Performed By: #### L IPA, CMP #### [facility] [address] [place] [address] Dr. Dee Humphrey Albumin/Globulin [Mass ratio] 1.0 {ratio} Normal [facility] Comment on above: Performed By: #### L IPA, CMP #### [facility] [address] [place] [address] Dr. Dee Humphrey ALP [Catalytic activity/Vol] 87 U/L Normal 46-116 [facility] Comment on above: Performed By: #### L IPA, CMP #### [facility] [address] [place] [address] Dr. Dee Humphrey ALT [Catalytic activity/Vol] 31 U/L Normal 14-59 [facility] Comment on above: Performed By: #### L IPA, CMP #### [facility] [address] [address] [address] Dee Humphrey Anion gap [Moles/Vol] 10.8 mmol/L Normal [facility] Comment on above: Performed By: #### L IPA, CMP #### [facility] [address] [address] [address] Dee Humphrey AST [Catalytic activity/Vol] 17 U/L Normal 15-37 [facility] Comment on above: Performed By: #### L IPA, CMP #### [facility] [address] [address] [address] Dee Humphrey Bilirubin [Mass/Vol] 0.1 mg/dL Critically low 0.2-1.0 [facility] Comment on above: Performed By: #### L IPA, CMP #### [facility] [address] [place] [address] Dr. Dee Humphrey Calcium [Mass/Vol] 8.9 mg/dL Normal 8.5-10.1 [facility] Comment on above: Performed By: #### L IPA, CMP #### [facility] [address] [place] [address] Dr. Dee Humphrey Chloride [Moles/Vol] 103 mmol/L Normal 98-107 [facility] Comment on above: Performed By: #### L IPA, CMP #### [facility] [address] [place] [address] Dr. Dee Humphrey CO2 [Moles/Vol] 26.9 mmol/L Normal 21.0-32.0 [facility] Comment on above: Performed By: #### L IPA, CMP #### [facility] [address] [place] [address] Dr. Dee Humphrey Creatinine [Mass/Vol] 0.80 mg/dL Normal 0.55-1.02 [facility] Comment on above: Performed By: #### L IPA, CMP #### [facility] [address] [place] [address] Dr. Dee Humphrey EGFR-AF NAURUAN >60 Normal >=60 [facility] Comment on above: Performed By: #### L IPA, CMP #### [facility] [address] [address] [address] Dee Humphrey EGFR-NON AF NAURUAN >60 Normal >=60 [facility] Comment on above: Performed By: #### L IPA, CMP #### [facility] [address] [address] [address] Dee Humphrey Globulin (S) [Mass/Vol] 3.9 g/dL Normal [facility] Comment on above: Performed By: #### L IPA, CMP #### [facility] [address] [address] [address] Dee Humphrey Glucose [Mass/Vol] 96 mg/dL Normal 74-106 [facility] Comment on above: Performed By: #### L IPA, CMP #### [facility] [address] [address] [address] Dee Humphrey Potassium [Moles/Vol] 3.7 mmol/L Normal 3.5-5.1 [facility] Comment on above: Performed By: #### L IPA, CMP #### [facility] [address] [address] [address] Dee Humphrey Protein [Mass/Vol] 7.8 g/dL Normal 6.4-8.2 [facility] Comment on above: Performed By: #### L IPA, CMP #### [facility] [address] [address] [address] Dee Humphrey Sodium [Moles/Vol] 137 mmol/L Normal 136-145 [facility] Comment on above: Performed By: #### L IPA, CMP #### [facility] [address] [address] [address] Dee Humphrey Urea nitrogen [Mass/Vol] 13.0 mg/dL Normal 7.0-18.0 [facility] Comment on above: Performed By: #### L IPA, CMP #### [facility] [address] [address] [address] Dee Humphrey Urea nitrogen/Creatinine [Mass ratio] 16.2 mg/mg Normal [facility] Comment on above: Performed By: #### L IPA, CMP #### [facility] [address] [place] [address] Dr. Dee Humphrey CBC AUTO DIFFon 03-07-2022 BASO # 0.0 103/ul Normal 0.0-0.1 [facility] Comment on above: Performed By: #### C BC #### [facility] [address] [place] [address] Dr. Dee Humphrey Basophils/100 WBC (Bld) 0.3 % Normal 0.2-2.0 [facility] Comment on above: Performed By: #### C BC #### [facility] [address] [place] [address] Dr. Dee Humphrey EO # 0.1 103/ul Normal 0.0-0.7 [facility] Comment on above: Performed By: #### C BC #### [facility] [address] [place] [address] Dr. Dee Humphrey Eosinophils/100 WBC (Bld) 0.7 % Critically low 0.9-7.0 [facility] Comment on above: Performed By: #### C BC #### [facility] [address] [place] [address] Dr. Dee Humphrey Erythrocyte distribution width (RBC) [Ratio] 13.0 % Normal 11.0-15.0 [facility] Comment on above: Performed By: #### C BC #### [facility] [address] [place] [address] Dr. Dee Humphrey Hematocrit (Bld) [Volume fraction] 39.2 % Normal 36.0-48.0 [facility] Comment on above: Performed By: #### C BC #### [facility] [address] [place] [address] Dr. Dee Humphrey Hemoglobin (Bld) [Mass/Vol] 13.2 g/dL Normal 12.0-16.0 [facility] Comment on above: Performed By: #### C BC #### [facility] [address] [place] [address] Dr. Dee Humphrey IG # 0.05 10e3/ul Critically high 0.00-0.03 [facility] Comment on above: Performed By: #### C BC #### [facility] [address] [place] [address] Dr. Dee Humphrey IG % 0.5 % Normal 0.0-0.5 [facility] Comment on above: Performed By: #### C BC #### [facility] [address] [place] [address] Dr. Dee Humphrey LYMPH # 4.2 103/ul Critically high 1.2-3.8 [facility] Comment on above: Performed By: #### C BC #### [facility] [address] [place] [address] Dr. Dee Humphrey Lymphocytes/100 WBC (Bld) 43.1 % Normal 20.5-60.0 [facility] Comment on above: Performed By: #### C BC #### [facility] [address] [place] [address] Dr. Dee Humphrey MANUAL DIFF REQ NO Normal [facility] Comment on above: Performed By: #### C BC #### [facility] [address] [place] [address] Dr. Dee Humphrey MCH (RBC) [Entitic mass] 30.5 pg Normal 26.7-34.0 [facility] Comment on above: Performed By: #### C BC #### [facility] [address] [place] [address] Dr. Dee Humphrey MCHC (RBC) [Mass/Vol] 33.7 g/dL Normal 29.9-35.2 [facility] Comment on above: Performed By: #### C BC #### [facility] [address] [place] [address] Dr. Dee Humphrey MCV (RBC) [Entitic vol] 90.5 fL Normal 81.0-99.0 [facility] Comment on above: Performed By: #### C BC #### [facility] [address] [place] [address] Dr. Dee Humphrey MONO # 0.4 103/ul Normal 0.3-0.8 [facility] Comment on above: Performed By: #### C BC #### [facility] [address] [address] [address] Dee Humphrey Monocytes/100 WBC (Bld) 4.4 % Normal 1.7-12.0 [facility] Comment on above: Performed By: #### C BC #### [facility] [address] [address] [address] Dee Humphrey NEUT # 4.9 103/ul Normal 1.4-6.5 [facility] Comment on above: Performed By: #### C BC #### [facility] [address] [place] [address] Dr. Dee Humphrey Neutrophils/100 WBC (Bld) 51.0 % Normal 43.0-75.0 [facility] Comment on above: Performed By: #### C BC #### [facility] [address] [place] [address] Dr. Dee Humphrey Platelet mean volume (Bld) [Entitic vol] 9.6 fL Normal 9.5-13.5 [facility] Comment on above: Performed By: #### C BC #### [facility] [address] [place] [address] Dr. Dee Humphrey PLT 364 103/ul Normal 150-450 [facility] Comment on above: Performed By: #### C BC #### [facility] [address] [place] [address] Dr. Dee Humphrey RBC 4.33 106/ul Normal 4.20-5.40 [facility] Comment on above: Performed By: #### C BC #### [facility] [address] [place] [address] Dr. Dee Humphrey WBC 9.7 103/ul Normal 4.0-11.0 [facility] Comment on above: Performed By: #### C BC #### [facility] [address] [place] [address] Dr. Dee Humphrey LACTATE/LACTIC ACIDon 2021 Lactate [Moles/Vol] 1.1 mmol/L Normal 0.4-1.9 [facility] Comment on above: Performed By: #### P REGU, ERUR #### [facility] [address] [place] [address] Dr. Dee Humphrey LIPASEon 03-07-2022 Lipase [Catalytic activity/Vol] 79.0 U/L Normal 73.0-393.0 [facility] Comment on above: Performed By: #### C MP, LIPA #### [facility] [address] [place] [address] Dr. Dee Humphrey PROF 14(COMP METB)on 022 Albumin [Mass/Vol] 3.8 g/dL Normal 3.4-5.0 [facility] Comment on above: Performed By: #### C MP, LIPA #### [facility] [address] [place] [address] Dr. Dee Humphrey Albumin/Globulin [Mass ratio] 0.9 {ratio} Normal [facility] Comment on above: Performed By: #### C MP, LIPA #### [facility] [address] [place] [address] Dr. Dee Humphrey ALP [Catalytic activity/Vol] 80 U/L Normal 46-116 [facility] Comment on above: Performed By: #### C MP, LIPA #### [facility] [address] [place] [address] Dr. Dee Humphrey ALT [Catalytic activity/Vol] 27 U/L Normal 14-59 [facility] Comment on above: Performed By: #### C MP, LIPA #### [facility] [address] [place] [address] Dr. Dee Humphrey Anion gap [Moles/Vol] 9.5 mmol/L Normal [facility] Comment on above: Performed By: #### C MP, LIPA #### [facility] [address] [place] [address] Dr. Dee Humphrey AST [Catalytic activity/Vol] 13 U/L Critically low 15-37 [facility] Comment on above: Performed By: #### C MP, LIPA #### [facility] [address] [place] [address] Dr. Dee Humphrey Bilirubin [Mass/Vol] 0.1 mg/dL Critically low 0.2-1.0 [facility] Comment on above: Performed By: #### C MP, LIPA #### [facility] [address] [place] [address] Dr. Dee Humphrey Calcium [Mass/Vol] 9.0 mg/dL Normal 8.5-10.1 [facility] Comment on above: Performed By: #### C MP, LIPA #### [facility] [address] [place] [address] Dr. Dee Humphrey Chloride [Moles/Vol] 103 mmol/L Normal 98-107 [facility] Comment on above: Performed By: #### C MP, LIPA #### [facility] [address] [place] [address] Dr. Dee Humphrey CO2 [Moles/Vol] 27.1 mmol/L Normal 21.0-32.0 [facility] Comment on above: Performed By: #### C MP, LIPA #### [facility] [address] [place] [address] Dr. Dee Humphrey Creatinine [Mass/Vol] 0.86 mg/dL Normal 0.55-1.02 [facility] Comment on above: Performed By: #### C MP, LIPA #### [facility] [address] [place] [address] Dr. Dee Humphrey EGFR-AF NAURUAN >60 Normal >=[address] [facility] Comment on above: Performed By: #### C MP, LIPA #### [facility] [address] [place] [address] Dr. Dee Humphrey EGFR-NON AF NAURUAN >60 Normal >=60 [facility] Comment on above: Performed By: #### C MP, LIPA #### [facility] [address] [place] [address] Dr. Dee Humphrey Globulin (S) [Mass/Vol] 4.1 g/dL Normal [facility] Comment on above: Performed By: #### C MP, LIPA #### [facility] [address] [place] [address] Dr. eDe Humphrey Glucose [Mass/Vol] 99 mg/dL Normal 74-106 [facility] Comment on above: Performed By: #### C MP, LIPA #### [facility] [address] [address] [address] Dee Humphrey Potassium [Moles/Vol] 3.6 mmol/L Normal 3.5-5.1 [facility] Comment on above: Performed By: #### C MP, LIPA #### [facility] [address] [place] [address] Dr. Dee Humphrey Protein [Mass/Vol] 7.9 g/dL Normal 6.4-8.2 [facility] Comment on above: Performed By: #### C JENNIFER, LIPA #### [facility] [address] [place] [address] Dr. Dee Humphrey Sodium [Moles/Vol] 136 mmol/L Normal 136-145 [facility] [facility] Comment on above: Performed By: #### C JENNIFER, LIPA #### [facility] [address] [place] [address] Dr. Dee Humphrey Urea nitrogen [Mass/Vol] 12.0 mg/dL Normal 7.0-18.0 [facility] Comment on above: Performed By: #### C JENNIFER, LIPA #### [facility] [address] [place] [address] Dr. Dee Humphrey Urea nitrogen/Creatinine [Mass ratio] 14.0 mg/mg Normal [facility] Comment on above: Performed By: #### C JENNIFER, LIPA #### [facility] [address] [place] [address] Dr. Dee Humphrey Consent for COVID Vaccineon 08-09-2020 SARS-CoV-2 (COVID-19) RNA J LUIS+probe Ql (Unsp spec) [id number] .[id number]:127 Normal [facility] Consent for Treatmenton 07-30 Consent for Treatment [id number] .[id number]:127 Normal [facility] Coding Summary.on 08-07-2020 Coding Summary. CODING DATE: 08/07/2020 FINAL [facility] STATUS: PAYOR: Luzma APC DESCRIPTION 1492 New [...] Yana Paredes Date Saved: 08/07/2020 02:[address] [facility] Ambulatory Clinical Summaryo n 03-25-2020 Ambulatory Clinical Summary {[id number]}CD:[id number] [facility] Patient Educationon 03-19-20 Patient Education lurasidone [...] ? an antiviral such as ritonavir; ? Satanta's wort; or ? seizure medicine such as [...] interactive video communications from my office using iZotope due to the restrictions of the COVID-19 pandemic. No physical exam was conducted other than those areas of the body visible to telecommunications with the patient located at [address] [place], [place] [phone], with no one else in attendance. If [...] Stopped age (more content not included)... Normal [facility] Comment on above: Result Comment: Elec tronically Signed By: Deepa [facility], Maia Ashley\.mati\Date and Time Signed: 02/22/20 23:17 EDT Video [...] interactive video communications from my office using [employer] due to the restrictions of the COVID-19 pandemic. No physical exam was conducted other than those areas of the body visible to telecommunications with the patient located at [address] [place] [phone], with no one else in attendance. If [...] Sister. Depres (more content not included)... Normal [facility] Comment on above: Result Comment: Elec tronically Signed By: Deepa [facility]i\Date and Time Signed: 02/11/20 14:46 [...] interactive video communications from my office using [employer] due to the restrictions of the COVID-19 pandemic. No physical exam was conducted other than those areas of the body visible to telecommunications with the patient located at [address] [place] [phone], with no one else in attendance. If [...] - Denies (more content not included)... Normal [facility] Comment on above: Result Comment: Elec tronically Signed By: [facility] Maia Ashley\.mati\Date and Time Signed: 02/11/20 14:37 [...] interactive video communications from my office using [employer] due to the restrictions of the COVID-19 pandemic. No physical exam was conducted other than those areas of the body visible to telecommunications with the patient located at [address] [place] [phone], with no one else in attendance. If [...] Tobacco F (more content not included)... Normal [facility] Comment on above: Result Comment: Elec tronically Signed By: Deepa [facility]\Date and Time Signed: 01/29/20 21:44 EDT [...] interactive video communications from my office using [employer] due to the restrictions of the COVID-19 pandemic. No physical exam was conducted other than those areas of the body visible to telecommunications with the patient located at [address] [place] [phone], with no one else in attendance. If [...] Yes, 09 (more content not included)... Normal [facility] Comment on above: Result Comment: Judith mckinneyally Signed By: Deepa [facility]\Date and Time Signed: 01/29/20 21:38 EDT Patient [...] [facility] - [facility] n 01-13-2020 [...] interactive video communications from my office using [employer] due to the restrictions of the COVID-19 pandemic. No physical exam was conducted other than those areas of the body visible to telecommunications with the patient located at [address] [place], [place] [phone], with no one else in attendance. If [...] Tobacco For (more content not included)... Normal [facility] Comment on above: Result Comment: Elec tronically Signed By: Deepa [facility], Maia Montero.br\Date and Time Signed: 01/13/20 09:40 EDT Patient Educationon 01-13-20 Patient Education aripiprazole (KEMAR welsh) Say Lrema What is the most important information I [...] interactive video communications from my office using [employer] due to the restrictions of the COVID-19 pandemic. No physical exam was conducted other than those areas of the body visible to telecommunications with the patient located at [address] [place], [place] [phone], with no one else in attendance. If [...] Use:. N (more content not included)... Normal [facility] Comment on above: Result Comment: Elec tronically Signed By: Deepa [facility], Maia Montero.mati\Date and Time Signed: [...] interactive video communications from my office using [employer] due to the restrictions of the COVID-19 pandemic. No physical exam was conducted other than those areas of the body visible to telecommunications with the patient located at [address] [place] [phone], with no one else in attendance. If [...] Medical History Ongoing Bipolar 1 disorder Fatigue OBB (generalized anxiety disorder) Hidradenitis suppurativa Major depression, [...] Father and (more content not included)... Normal [facility] Comment on above: Result Comment: Elec tronically Signed By: Deepa [facility], Maia Montero.mati\Date and Time Signed: [...] interactive video communications from my office using [employer] due to the restrictions of the COVID-19 pandemic. No physical exam was conducted other than those areas of the body visible to telecommunications with the patient located at [address] [place] [phone], with no one else in attendance. If [...] Alcohol U (more content not included)... Normal [facility] Comment on above: Result Comment: Elec tronically Signed By: Deepa [facility], Maia Montero.mati\Date and Time Signed: 12/23/19 16:54 [...] interactive video communications from my office using [employer] due to the restrictions of the COVID-19 pandemic. No physical exam was conducted other than those areas of the body visible to telecommunications with the patient located at [address] [place] [address], with no one else in attendance. If [...] Daily, 5 (more content not included)... Normal [facility] Comment on above: Result Comment: Elec tronically Signed By: Deepa [facility], Maia Montero.mati\Date and Time Signed: [...] rate, h (more content not included)... Normal [facility] Vital Signs Date Time Vital Sign Value Performing Clinician Facility 05-22-2024 14:57-0500 Body mass index (BMI) [Ratio] 41.3 kg/m2 [employer] Work Phone: [facility] 05-22-2024 14:57-0500 Body weight 102.42 kg [employer] Work Phone: [facility] 05-22-2024 14:57-0500 Diastolic blood pressure 80 mm[Hg] [employer] Work Phone: [facility] 05-22-2024 14:57-0500 Systolic blood pressure 110 mm[Hg] [employer] Work Phone: [facility] 05-13-2024 15:04-0500 Body mass index (BMI) [Ratio] 41.67 kg/m2 Liza ANTONIO Work Phone: [facility] 05-13-2024 15:04-0500 Body weight 103.33 kg Liza ANTONIO Work Phone: [facility] 05-13-2024 15:04-0500 Diastolic blood pressure 82 mm[Hg] Liza ANTONIO Work Phone: [facility] 05-13-2024 15:04-0500 Systolic blood pressure 140 mm[Hg] Liza Martin PA Work Phone: [facility] 04-03-2024 13:59-0500 Body mass index (BMI) [Ratio] 42.07 kg/m2 Johnathan Jorje DO Work Phone: [facility] 04-03-2024 13:59-0500 Body weight 104.33 kg Johnathan Jorje DO Work Phone: [facility] 04-03-2024 13:59-0500 Diastolic blood pressure 78 mm[Hg] Johnathan Jorje DO Work Phone: [facility] 04-03-2024 13:59-0500 Systolic blood pressure 110 mm[Hg] Johnathan Jorje DO Work Phone: [facility] 03-21-2024 14:01-0500 Body mass index (BMI) [Ratio] 41.7 kg/m2 Liza Martin PA Work Phone: [facility] 03-21-2024 14:01-0500 Body weight 103.42 kg Liza Martin PA Work Phone: [facility] 03-21-2024 14:01-0500 Diastolic blood pressure 72 mm[Hg] Liza Martin PA Work Phone: [facility] 03-21-2024 14:01-0500 Systolic blood pressure 112 mm[Hg] Liza Kt PA Work Phone: [facility] 03-11-2024 14:26-0500 Body mass index (BMI) [Ratio] 41.96 kg/m2 Liza Kt PA Work Phone: [facility] 03-11-2024 14:26-0500 Body weight 104.06 kg Liza Kt PA Work Phone: [facility] 03-11-2024 14:26-0500 Diastolic blood pressure 70 mm[Hg] Liza Kt PA Work Phone: [facility] 03-11-2024 14:26-0500 Systolic blood pressure 120 mm[Hg] Liza Kt PA Work Phone: [facility] 03-06-2024 11:20-0500 Body mass index (BMI) [Ratio] 41.34 kg/m2 Johnathan Jorje DO Work Phone: [facility] 03-06-2024 11:20-0500 Body weight 102.51 kg Johnathan Jorje DO Work Phone: [facility] 03-06-2024 11:20-0500 Diastolic blood pressure 68 mm[Hg] Johnathan Jorje DO Work Phone: [facility] 03-06-2024 11:20-0500 Systolic blood pressure 120 mm[Hg] Johnathan Jorje DO Work Phone: [facility] 02-21-2024 13:57-0400 Body mass index (BMI) [Ratio] 41.3 kg/m2 Johnathan Jorje DO Work Phone: [facility] 02-21-2024 13:57-0400 Body weight 102.42 kg Johnathan Jorje DO Work Phone: [facility] 02-21-2024 13:57-0400 Diastolic blood pressure 70 mm[Hg] Ojhnathan Jorje DO Work Phone: [facility] 02-21-2024 13:57-0400 Systolic blood pressure 100 mm[Hg] Johnathan Jorje DO Work Phone: [facility] 02-15-2024 13:03-0400 Body height 160 cm Malena Cardona MD Work Phone: [facility] 02-15-2024 13:03-0400 Body mass index (BMI) [Ratio] 39.65 kg/m2 Malena Cardona MD Work Phone: [facility] 02-15-2024 13:03-0400 Body weight 101.52 kg Malena Cardona MD Work Phone: [facility] 02-15-2024 13:03-0400 Diastolic blood pressure 74 mm[Hg] Malena Cardona MD Work Phone: [facility] 02-15-2024 13:03-0400 Heart rate 94 /min Malena Cardona MD Work Phone: [facility] 02-15-2024 13:03-0400 Systolic blood pressure 123 mm[Hg] Malena Cardona MD Work Phone: [facility] 01-24-2024 11:57-0400 Body mass index (BMI) [Ratio] 41.15 kg/m2 Johnathan Jorje DO Work Phone: [facility] 01-24-2024 11:57-0400 Body weight 102.06 kg Johnathan Jorje DO Work Phone: [facility] 01-24-2024 11:57-0400 Diastolic blood pressure 78 mm[Hg] Johnathan Jorje DO Work Phone: [facility] 01-24-2024 11:57-0400 Systolic blood pressure 124 mm[Hg] Johnathan Jorje DO Work Phone: [facility] 01-03-2024 15:02-0400 Body mass index (BMI) [Ratio] 42.07 kg/m2 Liza ANTONIO Work Phone: [facility] 01-03-2024 15:02-0400 Body weight 104.33 kg Liza ANTONIO Work Phone: [facility] 01-03-2024 15:02-0400 Diastolic blood pressure 74 mm[Hg] Liza ANTONIO Work Phone: [facility] 01-03-2024 15:02-0400 Systolic blood pressure 122 mm[Hg] Liza ANTONIO Work Phone: [facility] 12-25-2023 11:22-0400 Body mass index (BMI) [Ratio] 40.79 kg/m2 Johnathan Jorje DO Work Phone: [facility] 12-25-2023 11:22-0400 Body weight 101.15 kg Johnathan Jorje DO Work Phone: [facility] 12-25-2023 11:22-0400 Diastolic blood pressure 76 mm[Hg] Johnathan Jorje DO Work Phone: [facility] 12-25-2023 11:22-0400 Systolic blood pressure 122 mm[Hg] Johnathan Jorje DO Work Phone: [facility] 08-18-2023 14:24-0400 Body height 160.02 cm [facility] 08-18-2023 14:24-0400 Body mass index (BMI) [Ratio] 40.2 kg/m2 [facility] 08-18-2023 14:24-0400 Body temperature 98.4 [degF] [facility] 08-18-2023 14:24-0400 Body weight 103.02 kg [facility] 08-18-2023 14:24-0400 Diastolic blood pressure 81 mm[Hg] [facility] 08-18-2023 14:24-0400 Heart rate 101 /min [facility] 08-18-2023 14:24-0400 Respiratory rate 16 /min [facility] 08-18-2023 14:24-0400 SaO2% (BldA) [Mass fraction] 98 % [facility] 08-18-2023 14:24-0400 Systolic blood pressure 133 mm[Hg] [facility] 04-27-2023 16:30-0500 Body height 160.02 cm Sanaz Lockwood Other [employer] [facility] [employer] Other 04-27-2023 16:30-0500 Body mass index (BMI) [Ratio] 40.92 kg/m2 Sanaz Lockwood Other [employer] Other 04-27-2023 16:30-0500 Body temperature 98.2 [degF] Sanaz Lockwood Other [employer] Other 04-27-2023 16:30-0500 Body weight 104.78 kg Sanaz Fabián Other [employer] Other 04-27-2023 16:30-0500 Respiratory rate 18 /min Sanaz Lockwood Other [employer] Other 04-27-2023 16:30-0500 SaO2% (BldA) [Mass fraction] 99 % Sanaz Neelyler Other [employer] Other 05-10-2022 14:45-0500 Body height 160.02 cm Kaylah Han Other [employer] Other 05-10-2022 14:45-0500 Body mass index (BMI) [Ratio] 38.97 kg/m2 Kaylah Han Other [employer] Other 05-10-2022 14:45-0500 Body temperature 99.3 [degF] Kaylah Han Other [employer] Other 05-10-2022 14:45-0500 Body weight 99.79 kg Kaylah Han Other [employer] Other 06-29-2019 22:40-0500 Pulse (Heart Rate) 84 /min [facility] 06-29-2019 22:40-0500 Pulse Oximetry 97 % [facility] 06-29-2019 22:35-0500 BP Diastolic 56 mm[Hg] [facility] 06-29-2019 22:35-0500 BP Systolic 100 mm[Hg] [facility] 06-29-2019 21:11-0500 BMI (Body Mass Index) 33.1 kg/m2 [facility] 06-29-2019 21:11-0500 Body Temperature 97.8 [degF] [facility] 06-29-2019 21:110500 Body weight 84.8 kg Kimberlyn [facility] 06-29-2019 21:110500 Height 160.02 cm [facility] 06-29-2019 21:11-0500 Respiratory Rate 20 /min Kimberlyn Xie [facility] Encounters Encounter Date Encounter Type Care Provider Facility Start: 05-22-2024 End: 05-22-2024 ambulatory JOHNATHAN JORJE Not Available Start: 05-22-2024 End: 05-22-2024 flow sheet Johnathan Jorje DO Work Phone: [facility] Comment on above: Third trimester preg [place]; 35 weeks gestation of ; Gestational diabetes mellitus (GDM) in third trimester, gestational diabetes method of control unspecified Start: 05-22-2024 End: 05-22-2024 Bamboo flowsheet Johnathan [...] Start: 04-22-2024 End: 04-22-2024 ambulatory Johnathan Jorje Facility:[facility] Start: 04-03-2024 End: 04-03-2024 Bamboo flowsheet [...] control unspecified Start: 03-14-2024 End: 03-14-2024 ambulatory [facility] Start: 03-11-2024 End: 03-11-2024 Bamboo flowsheet Liza ANTONIO Work Phone: [facility] Start: 03-11-2024 End: 03-11-2024 Bamboo flowsheet Liza ANTONIO Work Phone: [facility] Start: 03-11-2024 End: 03-11-2024 ambulatory LIZA DUQUE Not Available Start: 03-11-2024 End: 03-11-2024 flow sheet Liza ANTONIO Work Phone: [facility] Comment on above: 24 weeks gestation o f ; Second trimester ; Acute cystitis with hematuria Start: 03-06-2024 End: 03-06-2024 Clinisync Result Encounter Johnathan Jorje DO Work Phone: [facility] External Department Unsolicited Start: 03-06-2024 End: 03-06-2024 Clinisync Result Encounter Johnathan Jorje DO Work Phone: [facility] External Department Unsolicited Start: 03-06-2024 End: 03-06-2024 ambulatory JOHNATHAN JORJE Not Available Start: 03-06-2024 End: 03-06-2024 flow sheet Johnathan Jorje DO Work Phone: [facility] Comment on above: 24 weeks gestation o f ; Second trimester ; Flank pain; Acute cystitis with hematuria Start: 02-26-2024 End: 02-26-2024 ambulatory [facility] Start: 02-21-2024 End: 02-21-2024 Bamboo flowsheet Johnathan Jorje DO Work Phone: [facility] Start: 02-21-2024 End: 02-21-2024 Bamboo flowsheet Johnathan Jorje DO Work Phone: [facility] Start: 02-21-2024 End: 02-21-2024 ambulatory JOHNATHAN RECINOS Not Available Start: 02-21-2024 End: 02-21-2024 flow sheet Johnathan Recinos DO Work Phone: [facility] Comment on above: 22 weeks gestation o f ; Second trimester ; Diabetes mellitus screening Start: 02-15-2024 End: 02-15-2024 Office consultation new/estab patient 60 min Malena Cardona MD Work Phone: [facility] Comment on above: 21 weeks gestation o f (Primary Dx); Multigravida of advanced maternal age in second trimester; Pyelonephritis affecting in second trimester; Bipolar disease during in second trimester ([facility]); Obesity affecting in second trimester, unspecified obesity type; BMI 39.0-39.9,adult; History of section complicating ; Vapes nicotine containing substance; Current rao with 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, antepartum; History of delivery, currently Start: 02-15-2024 End: 02-15-2024 Orders Only Flor Lopez RN [facility] Comment on above: 21 weeks gestation o f (Primary Dx); Obesity affecting in second trimester, unspecified obesity type Start: 02-15-2024 End: 02-15-2024 ambulatory JOHNATHAN [facility] Start: 02-09-2024 End: 02-09-2024 Evaluation and management of inpatient TEJ ZENG [facility] Start: 02-08-2024 End: 02-09-2024 Evaluation and management of inpatient NATO LLOYD [facility] Start: 01-24-2024 End: 01-24-2024 Bamboo flowsheet Johnathan Recinos DO Work Phone: [facility] Start: [...] Not Available Start: 08-18-2023 End: 08-18-2023 ambulatory [facility] Work Phone: Start: 08-18-2023 End: 08-18-2023 Patient encounter procedure [facility] Work Phone: Start: 04-27-2023 End: 04-27-2023 ambulatory Sanaz Lockwood Other [employer] Other Start: 04-27-2023 Office outpatient vi sit 25 minutes Sanaz Lockwood [facility] Start: 05-10-2022 End: 05-10-2022 ambulatory Kaylahpedrito Han Other [employer] Other Start: 05-10-2022 Office outpatient ne w 20 minutes Kaylahpedrito Han [facility] Start: 04-27-2022 End: 04-27-2022 ambulatory KIMBERLYN XIE Facility:[facility] Start: 03-07-2022 End: 03-07-2022 ambulatory KIMBERLYN XIE Facility:[facility] Start: 09-23-[address] JAZIEL HILL Facility :[facility] Start: 06-29-2019 End: 06-29-2019 Emergency department patient visit Kimberlyn Xie [facility] Procedures Date Procedure Procedure Detail Performing Clinician Start: 05-22-2024 Urnls dip stick/tablet rgnt non-auto w/o micrscp Johnathan Jorje DO Work Phone: Start: 05-13-2024 Urnls dip stick/tablet rgnt non-auto w/o micrscp Liza ANTONIO Work Phone: Start: 04-22-2024 [facility] [employer] DIRECT[employer]/MICRO IF IND. Johnathan Jorje DO Work Phone: [...] Work Phone: Start: 03-06-2024 [facility] [employer]/MICRO IF IND. Johnathan Jorje DO Work Phone: [...] Start: 01-24-2024 AFP, SERUM, OPEN SPINA BIFIDA [facility] DO Work Phone: Start: 01-24-2024 Urnls dip [...] Screening for malign ant neoplasm of cervix [facility] Start: 02-14-2025 Adult BMI Screening Adult BMI Screen ing [facility] Start: 02-14-2025 Tobacco Screening Tobacco Screening [facility] Start: 02-14-2025 End: 02-14-2025 US MFM with or without consult US MFM with or without consult Imaging Routine 21 weeks gestation of Obesity affecting in second trimester, unspecified obesity type Expected: 02/14/2025 (Approximate), Expires: 02/14/2025 [employer] Work Phone: Comment on above: Expected: 02/14/2025 (Approximate), Expires: 02/14/2025 Start: 05-29-2024 End: 05-29-2024 Patient encounter procedure 05/29/2024 2:20 PM EST Routine [facility] [address] [place] [id number] Johnathan Recinos, DO [address] [place] [address] [facility] Start: 05-22-2024 End: 05-22-2024 Patient encounter procedure 05/22/2024 2:20 PM EST Routine [facility] [address] [place] [phone] Johnathan Recinos, DO [address] [place] [address] [facility] Start: 05-13-2024 End: 05-13-2025 US biophysical profile w non stress test US biophysical profile w non stress test Imaging Routine Elevated blood pressure complicating in third trimester, antepartum Gestational diabetes mellitus (GDM) in third trimester, gestational diabetes method of control unspecified Expected: 05/13/2024 (Approximate), Expires: 05/13/2025 [facility] Work Phone: Comment on above: Expected: 05/13/2024 (Approximate), Expires: 05/13/2025 Start: 05-09-2024 End: 05-09-2024 Professional / ancillary services management 05/09/2024 8:30 AM EST Ancillary Procedure [facility] [address] [place] [phone] [facility] Start: 04-03-2024 End: 04-03-2024 Patient encounter procedure [facility] Comment on above: Arrived Start: 04-03-2024 End: 04-03-2024 Professional / ancillary services management 04/03/2024 1:00 PM EST Ancillary Procedure [facility] [address] [place] [phone] [facility] Start: 03-21-2024 End: 03-21-2025 Measurement of glucose 3 hours after glucose challenge for glucose tolerance test Glucose tolerance, 3 hours Lab Routine Elevated glucose tolerance test Expected: 03/21/2024 (Approximate), Expires: 03/21/2025 [facility] Work Phone: Comment on above: [...] Routine [facility] [address] [place] [phone] Liza Duque PA [address] [place], [place] [id number] [facility] Start: 03-14-2024 End: 03-14-2024 Patient encounter procedure 03/14/2024 9:45 AM EST Appointment [facility] [address] [place] [phone] [facility] Start: 02-22-2024 End: 02-22-2024 Patient encounter procedure 02/22/2024 10:15 AM EDT Appointment [facility] [address] [place] [address] [facility] Start: 02-21-2024 End: 02-20-2025 CBC panel - Blood by Automated count CBC Lab Routine Diabetes mellitus screening Expected: 02/21/2024 (Approximate), Expires: 02/20/2025 [facility] Work Phone: Comment on above: Expected: 02/21/2024 (Approximate), Expires: 02/20/2025 Start: 02-21-2024 End: 02-20-2025 Measurement of glucose 1 hour after glucose challenge for glucose tolerance test Glucose tolerance, 1 hour Lab Routine Diabetes mellitus screening Expected: 02/21/2024 (Approximate), Expires: 02/20/2025 [facility] Comment on above: Expected: 02/21/2024 (Approximate), Expires: 02/20/2025 Start: 02-21-2024 End: 02-21-2024 Patient encounter procedure 02/21/2024 1:50 PM EDT Routine [facility] [address] [place] [phone] Johnathan Recinos, [address] [place] [address] [facility] Start: 01-24-2024 End: 02-23-2024 Alpha fetoprotein, maternal Alpha fetoprotein, maternal Lab Routine 18 weeks gestation of Expected: 01/24/2024 (Approximate), Expires: 02/23/2024 [facility] Comment on above: Expected: 01/24/2024 (Approximate), Expires: 02/23/2024 Start: 01-22-2024 End: 01-22-2024 Patient encounter procedure 01/22/2024 10:20 AM EDT Routine [facility] [address] [facility] [place] [id number] Johnathan Recinos, DO [address] [place] [address] [place] [address] [facility] Start: 12-31-2023 COVID-19 Vaccine ( season) COVID-19 Vaccine ( season) [facility] Start: 12-31-2023 Influenza vaccination [facility] Start: 10-11-2021 DTaP,Tdap and Td Vaccines (2 - Td or Tdap) DTaP,Tdap and Td Vaccines (2 - Td or Tdap) [facility] Start: 2017 Screening for malign ant neoplasm of cervix [facility] Start: 2008 Screening for malign ant neoplasm of cervix Pap Smear [facility] Start: 2005 Adult BMI Follow Up Plan Adult BMI Follow Up Plan [facility] Start: 1999 Depression Screening Depression Scre ening [facility] Bacteria identified in Urine by Culture Urine culture Microbiology Routine 24 weeks gestation of Second trimester Ordered: 03/06/2024 [facility] Work Phone: Comment on above: Ordered: 03/06/2024 Bacteria identified in Urine by Culture Urine culture Microbiology Routine Flank pain Acute cystitis with hematuria Urinary tract infection without hematuria, site unspecified Ordered: 04/03/2024 [facility] Work Phone: Comment on above: Ordered: 04/03/2024 CHLAMYDIA TRACHOMATI S (GENITO/STI) CHLAMYDIA TRACHOMATIS (GENITO/STI) Lab Routine Exposure to STD Ordered: 01/24/2024 [facility] Comment on above: Ordered: 01/24/2024 Cytology Cervical or vaginal smear or scraping study Pap Smear Pathology and Cytology Routine Well woman exam with routine gynecological exam Ordered: 01/24/2024 [facility] Comment on above: Ordered: 01/24/2024 Human papilloma viru s DNA [Presence] in Unspecified specimen by Probe with amplification HPV DNA probe, amplified Microbiology Routine Well woman exam with routine gynecological exam Ordered: 01/24/2024 [facility] Comment on above: Ordered: 01/24/2024 Neisseria gonorrhoea e DNA [Presence] in Unspecified specimen by J LUIS with probe detection Neisseria gonorrhea DNA probe, direct Lab Routine Exposure to STD Ordered: 01/24/2024 [facility] Comment on above: Ordered: 01/24/2024 Patient Education Epinephrine (B y injection) Anaphylaxis (ED) General Allergic Reaction (ED) [facility] Patient referral [facility] SURESWAB(R) ADVANCED VAGINITIS PLUS, TMA SURESWAB(R) ADVANCED VAGINITIS PLUS, TMA Pathology and Cytology Routine Vaginal discharge Ordered: 01/24/2024 [facility] Work Phone: Comment on above: Ordered: 01/24/2024 Immunizations Immunization Date Immunization Notes Care Provider Fa bethany 06-02-2008 influenza virus vacc ine, unspecified formulation Johnathansalomon Riverao DO Work Phone: [facility] Payers Date Payer Category Payer Self-pay [id number] 2024 Private Health Insurance [facility] MEDICAID [id number] 2024 Medicaid [id number] [address] [facility] er Subscriber Plan / Payer (Effective 2023-Present) Name: Danelle Maria De Jesus Relation to Subscriber: Spouse Name: JOSHUA RUIZONY Jai Date of : 1983 Address: [address] [place] [id number] Payer ID: Not on file Type: Not on file Address: [address] [place] [id number] 2023 [employer] Managed Care - PPO ANTHEM [id number] 2023 Unknown BCBS BCBS xxxxxx [id number] 2023-Present [phone] [address] [place] [address] [id number] 1987 Unknown [id number] 2.16.840.1.547482.3.579.2 .593 1987 Unknown [id number] 2.16.840.1.256311.3.579.2 .593 1987 Unknown [id number] 2.16.840.1.426199.3.579.2 .593 1987 Unknown [id number] 2.16.840.1.993350.3.579.2 .1286 1987 Unknown [id number] 2.16.840.1.159892.3.579.2 .1286 1987 Unknown [id number] 2.16.840.1.265233.3.579.2 .1286 1987 Unknown [id number] 2.16.840.1.704693.3.579.2 .1285 1987 Unknown [id number] 2.16.840.1.976617.3.579.2 .1285 1987 Unknown [id number] 2.16.840.1.112786.3.579.2 .1285 1987 Unknown [id number] 2.16.840.1.390731.3.579.2 .1258 1987 Unknown [id number] 2.16.840.1.602427.3.579.2 .1258 1987 Unknown [id number] 2.16.840.1.934162.3.579.2 .1258 1987 Unknown [id number] 2.16.840.1.433010.3.579.2 .1258 1987 Unknown [id number] 2.16.840.1.177296.3.579.2 .1258 1987 Unknown [id number] 2.16.840.1.459155.3.579.2 .1258 1987 Unknown [id number] 2.16.840.1.730378.3.579.2 .1258 1987 Unknown [id number] 2.16.840.1.225641.3.579.2 .1258 1987 Unknown [id number] 2.16.840.1.994490.3.579.2 .1258 1987 Unknown [id number] 2.16.840.1.330058.3.579.2 .1258 1987 Unknown [id number] 2.16.840.1.296131.3.579.2 .1258 1987 Unknown [id number] 2.16.840.1.395579.3.579.2 .9 1959 Self-pay [id number] 1959 Unknown [id number] Private Health Insurance [id number] Unknown [id number] 2.16.840.1.144967.3.579.2 .531 Social History Date Type Detail Facility Start: 06-29-2019 End: 08-18-2023 Tobacco smoking status NHIS Smoker (finding) [facility] Start: 1985 Sex Assigned At Female [facility] Start: 06-10-2020 End: 02-15-2024 Sex Assigned At [employer] Other Start: 02-15-2024 Tobacco smoking status [facility] Ex-smoker [facility] Start: 02-15-2024 Tobacco use and exposure Smokeless tobacco non-user [facility] Start: 02-15-2024 Alcoholic beverage intake Lifetime non-drinker (finding) [facility] Start: 06-10-2020 End: 02-15-2024 History of Social function [facility] Childcare Unknown [facility] Start: 02-15-2024 Tobacco Comment PT IS A VAPER [facility] [employer] Start: 10-03-2023 [facility] Start: 1985 Sex assigned at Not on [facility] Start: 12-02-2014 Sex Female (finding) [facility] [employer] Start: 02-08-2024 Sexual orientation Heterosexual (finding) [facility] Tobacco smoking stat [facility] Tobacco smoking consumption unknown [facility] Start: 10-26-2023 Gender identity Identifies as female gender (finding) [facility] Medical Equipment Procedure Code Equipment Code Equipment Original Text Equipment Identifier Dates 1 strip by In Vi tro route Daily Use in the morning prior to breakfast, 1 hour after each meal for a total of 4times daily. [id number] Start: 03-25-2024 End: 04-24-2024 1 each by In Vit ro route Daily Use to check FSBS four times daily [id number] Start: 03-25-2024 End: 04-24-2024 Inject 1 each un vickie the skin See administration instructions Use four times daily with insulin pen. [id number] Start: 05-13-2024 End: 06-12-2024 Use as instructed [id number] Start: 05-22-2024 Goals Date Patient Goal Desired Activity /State Personal health goal Comment on above: Formatting of this n ote might be different from the original. Evaluation of progress towards goal: go home today Clinical Notes 12-02-2019 to 05-22-2024 Gayle Ruthie, SECRET SERVICE AGENT - 05/22/2024 2:20 PM YANNICKanali Colesalinas, SECRET SERVICE AGENT - 05/13/2024 1:50 PM GERMAINGayle Ruthie, SECRET SERVICE AGENT - 04/03/2024 1:40 PM Ema Duque, PACO - 03/21/2024 1:30 PM EST Note Date & Type Note Facility 05-22-2024 History of Present illness Narrative Reason for Appointment: Patient ID: Mikaela Ruiz is a 39 y.o. female who presents for Routine Visit Patient presents today for Return OB appointment. MEDICATIONS Current Outpatient Medications Medication Instructions Alcohol Swabs (Alcohol Prep Pad) 70 % pads 1 Pad, Topical, Daily, Use four times daily to check FSBS. aspirin 81 mg, Daily Blood Glucose Monitoring Suppl (D-ReSnap Glucometer) w/Device kit 1 kit, Does not apply, Daily, Use four times daily to check FSBS. In the morning prior to breakfast & 1 hour after each meal for a total of 4times daily. insulin glargine (LANTUS) 10 Units, Subcutaneous, Every evening insulin pen needle 29G x 8mm misc 1 each, Subcutaneous, See admin instructions, Use four times daily with insulin pen. lamoTRIgine (LAMICTAL) 200 mg, Daily lurasidone (LATUDA) [...] Problems Diagnosis Date Noted Gestational diabetes mellitus (GDM) in third trimester 03/21/2024 28 weeks gestation of 04/03/2024 Third trimester 04/03/2024 Urinary tract infection without hematuria 04/18/2024 Flank pain 04/18/2024 33 weeks gestation of 05/13/2024 Elevated blood pressure complicating in third trimester, antepartum 05/13/2024 Resolved Ambulatory Problems Diagnosis Date Noted No [...] nursing note reviewed. Exam conducted with a event coordinator present. Vitals: Estimated body mass index is 41.3 kg/m as calculated from the following: Height as of 03/18/22: 5' 2 . Weight as of this encounter: 225 lb 12.8 oz. BP: 110/80 Patient's last menstrual period was 09/12/2023. ASSESSMENT & PLAN ICD-10-CM 1. Third trimester Z34.93 POCT urinalysis dipstick manually resulted 2. 35 weeks gestation of Z3A.35 Return OB: Patient presents today for a routine obstetrics appointment. Patient is currently 35w1d . Patient states she is doing well but has complaints of being tired due to current . Patient has verbalizes frequent movement. labor precautions was discussed/given and patient was instructed to perform kick counts three times a day. Pt advised to stop lantus insulin and start 10units of nph before meals and 5units regular before meals. Supplies sent to pharmacy. Orders Placed This Encounter Procedures POCT urinalysis dipstick manually resulted Follow Up: Patient is to return to office in 1 week for routine OB appointment. Documented by Gayle Hendricks LPN on behalf of: Johnathan Recinos DO documented in this encounter [facility] 05-13-2024 History of Present illness Narrative Reason [...] Diagnosis Date Bipolar 1 disorder ([facility]) HISTORY PAST MEDICAL HISTORY SOCIAL HISTORY Past Medical History: Diagnosis Date Bipolar 1 disorder ([facility]) Social History Tobacco Use Smoking status: Not [...] nursing note reviewed. Exam conducted with a event coordinator present. Vitals: Estimated body mass index is [...] have been elevated. Patient to report to [facility] for NST/BPP/Cervical Length today for monitoring. Patient to setup the remaining NST/BPPs. Patient to start Lantus today as well for uncontrolled gestational diabetes. Patient to have Repeat on 06/04/24 due to uncontrolled GDM and elevated Bps (mild pre-eclampsia). Documented by Barbara Guillermo LPN on behalf of: Johnathan Recinos DO documented in this encounter [facility] 04-03-2024 History of Present illness [...] Diagnosis Date Bipolar 1 disorder ([facility]) HISTORY PAST MEDICAL HISTORY SOCIAL HISTORY Past Medical History: Diagnosis Date Bipolar 1 disorder ([facility]) Social History Tobacco Use Smoking status: Not [...] nursing note reviewed. Exam conducted with a event coordinator present. Vitals: Estimated body mass index is [...] Johnathan Recinos DO documented in this encounter [facility] 03-21-2024 History of Present illness [...] Diagnosis Date Bipolar 1 disorder ([facility]) HISTORY PAST MEDICAL HISTORY SOCIAL HISTORY Past Medical History: Diagnosis Date Bipolar 1 disorder ([facility]) Social History Tobacco Use Smoking status: Not [...] hour glucose order to have done at [facility]. Patient DECLINES 3 hour gtt and would like to start testing FSBS--Patient will be referred to Diabetic Edu at [facility]. Follow Up: Patient is to return to office in 2 week for routine OB appointment. Documented by Nettie Frazier MA on behalf of: PACO Freed documented in this encounter [facility] 03-11-2024 History of Present illness [...] nursing note reviewed. Exam conducted with a event coordinator present. Vitals: Estimated body mass index is [...] of . Nursing will reach out to [facility] to inquire about culture results. Patient does have follow up appointment with Maternal Medicine. Patient to return to clinic in 4 weeks for routine OB appointment. Documented by Barbara Guillermo LPN on behalf of: PACO Freed documented in this encounter [facility] 03-06-2024 History of Present illness [...] Diagnosis Date Bipolar 1 disorder ([facility]) Social History Tobacco Use Smoking status: Not [...] nursing note reviewed. Exam conducted with a event coordinator present. Vitals: Estimated body mass index is [...] Johnathan Recinos DO documented in this encounter [facility] 02-21-2024 History of Present illness [...] nursing note reviewed. Exam conducted with a event coordinator present. Vitals: Estimated body mass index is [...] Johnathan Recinos DO documented in this encounter [facility] 02-15-2024 History of Present illness [...] Diagnosis Date Bipolar 1 disorder ([facility]) Depression PSHIST: Past Surgical History: Procedure Laterality [...] disease during in second trimester ([facility]) I reviewed with the patient that stability [...] of withdrawal and extrapyramidal effects on reviewed. Bioinformatics Software Engineer should be notified. Lack of controlled human [...] . For prevention of venous thromboembolism in ymer-zwhx-unwq groups, pharmacologic thromboprophylaxis should be considered in [...] prevention Cervical length at 22 weeks at [facility] Follow up survey scheduled Serial growth assessments every 4 weeks after the anatomy scan can be done at OB office. ventricles should be measured at each US. If >=10 mm or concern for hydrocephalus refer to MFM. If you would like [facility] to do the growth US please refer [...] MD, FACOG (she/hers) Maternal- Medicine [facility] [address] [facility] [address] [place] [address] This document was created with [employer] technology. Though I make every effort to review the dictation as it is transcribed, on occasion the spoken word can be misinterpreted by the technology leading to inappropriate words, phrases, or sentences. This note is addressed to the requesting provider as a consultation for clinical guidance. Specific medical abbreviations are occasionally used and those are generally approved by the [place]?Board of?Obstetrics and?Gynecology?as well as?Jeri s abbreviations. The above plan of care was based solely on the diagnoses for which a consultation was requested. ?More frequent testing may be indicated based on her other medical/obstetrical conditions. The management of other or medical conditions is beyond the scope of requested consultation and will continue to be followed by the primary clinical assoc or primary care provider. Note to patient: [...] yes Have you been seen here at [facility] in a previous ? yes Recent ER visits or hospitalizations? 02/07 kidney and bladder infection Bring blood sugar log or meter with you today? (Please bring them with you for every visit at [facility]) na Flu vaccine (Mar-June)? na Any concerns that you would like me to mention to the provider today? no documented in this encounter [facility] [employer] 01-24-2024 History of Present illness Narrative Reason [...] 4 section, pt to be referred to [facility] for level II ultrasound. Pt to return [...] Johnathan Recinos DO documented in this encounter [facility] 01-03-2024 History of Present illness [...] Diagnosis Date Bipolar 1 disorder ([facility]) HISTORY PAST MEDICAL HISTORY SOCIAL HISTORY Past Medical History: Diagnosis Date Bipolar 1 disorder ([facility]) Social History Tobacco Use Smoking status: Not [...] of: PACO Freed documented in this encounter [facility] 12-25-2023 History of Present illness [...] Diagnosis Date Bipolar 1 disorder ([facility]) HISTORY PAST MEDICAL HISTORY SOCIAL HISTORY Past [...] nursing note reviewed. Exam conducted with a event coordinator present. Vitals: Estimated body mass index is [...] or undercooked meat, and stay away from [facility]. Patient has been consulted regarding any further do's and don'ts of . Patient voiced understanding and all questions and concerns were answered. Patient complaints of nausea not helped by oral medications. [facility]. Patient aware that [facility] will reach out to her to initiate therapy. Follow Up: Patient is to return in 4 weeks for routine OB appointment. Documented by Barbara Guillermo LPN on behalf of: Liza Duque PA-C documented in this encounter [facility] 04-27-2023 Evaluation note Encounter Date [...] condition. Mar, Sore throat (ICD-10 - J02.9) [employer] [facility] 01-10-2023 Evaluation note* Encounter Date Diagnosis [...] weeks for the cough to go away [employer] [facility] 11-07-2022 NoteIndication: Abdominal pain. Comparison: None [...] Electronically authenticated by: SURJIT FREITAS Date: 2022-03-07 20:49[facility] NoteHPI Staff This visit was conducted via phone communications from my office due to the restrictions of the COVID-19 pandemic. No physical exam was conducted due to audio only communication with the patient located at [address] [place] [phone], with no one else. If it is determined that the patientshould be evaluated in person, the patient will be directed to the appropriate clinic or venue. Thepatient or their guardian verbally consented to this visit. Phone time was 15 minutes discussing health issues with counseling and coordination of care. Subjective Interval History/HPI Patient presents today for follow up via telehealth phone from [facility]. Patient started Latuda 20mg last evening [...] anxiety, # 30 tab(s), Refills(s) 2, Pharmacy: [facility]/pharmacy #[id number], 161, cm, 12/23/19 10:18:00 EDT, Height/Length Dosing, 82, kg, 12/23/19 10:18:00 EDT, Weight Dosing Orders: lurasidone, 20 mg = 1 tab(s), Oral, Daily, with 350 calories; begin this dose first then progress to next dose of 40mg, X 1 week(s), # 7 tab(s), Refills(s) 0, Pharmacy: [facility]/pharmacy #[id number], 161, cm, 12/23/19 10:18:00 EDT, Height/Length Dosing, 82, kg, 12/23/19 10:... lurasidone, 40 mg = 1 tab(s), Oral, Daily, with 350 calories, # 30 tab(s), Refills(s) 1, [facility] [...] (generalized anxiety disorder) Hidr (more content not included)...[facility] on [facility]: Result Comment: Electronically Signed By: Carlota RODRIGUEZ CNP\.br\Date and Time Signed: 03/19/20 14:27 [id number] NoteI Staff This visit was conducted via two-way, real-time interactive video communications from my office using [employer] due to the restrictions of the COVID-19 pandemic. No physical exam was conducted other than those areas of the body visible to telecommunications with the patient located at [address] [place] [address], with no one else in attendance. If [...] Ordered: TELEHEALTH Office Visit Level 3 Est 73149 General Treatment Plan Maintain medication regimen _Improve [...] Employed, 03/18/2019 Home/Environment Sylvia (more content not included)...[facility] OhioComment on above: Result Comment: Electronically Signed By: Carlota RODRIGUEZ CNP\harshil\Date and Time Signed: 03/05/20 13:32 [id number] NoteI Staff This visit was conducted via two-way, real-time interactive video communications from my office using [employer] due to the restrictions of the COVID-19 pandemic. No physical exam was conducted other than those areas of the body visible to telecommunications with the patient located at [address] [place] [address], with no one else in attendance. If [...] 30 tab(s), Refills(s) 1, Pharmacy: [facility]/pharmacy #[id number], 161, cm, 12/23/19 10:18:00 EDT, Height/Length Dosing, 82, kg, 12/23/19 10:18:00 EDT, Weight Dosing alprazolam, 0.5 mg = 1 tab(s), Oral, TID, PRN for anxiety, # 30 tab(s), Refills(s) 1, Pharmacy: [facility]/pharmacy #[id number], 161, cm, 12/23/19 10:18:00 EDT, Height/Length Dosing, 82, kg, 12/23/19 10:18:00 EDT, Weight Dosing aripiprazole, See Instructions, 1.5 tab po qAM, # 30 tab(s), Refills(s) 2, Pharmacy: [facility]/pharmacy #[id number], 161, cm, 12/23/19 10:18:00 EDT, Height/Length Dosing, 82, kg, 12/23/19 10:18:00 EDT, Weight Dosing aripiprazole, See Instructions, 1 tab po qAM, # 30 tab(s), Refills(s) 5, [id number] 161, cm, 12/23/19 10:18:00 EDT, Height/Length Dosing, 82, kg, 12/23/19 10:18:00 EDT, Weight Dosing cyclobenzaprine, 10 mg = 1 tab(s), Oral, TID, PRN for spasm, # 30 tab(s), Refills(s) 1, [id number], 161, cm, 06/13/19 14:39:00 EST, Height/Length Measured, 82, kg, 06/13/19 14:39:00EST, Weight Measured cyclobenzaprine, 10 mg = 1 tab(s), Oral, TID, PRN for spasm, # 30 tab(s), Refills(s) 1, Pharmacy: [facility]/pharmacy #[id number], 161, cm, 12/23/19 10:18:00 EDT, Height/Length Dosing, 82, kg, 12/23/19 10:18:00 EDT, Weight Dosing General Treatment Plan Maintain medication regimen _Improve mood stability _Improve anxiety control _Improve social and interpersonal functioning Clinical Global Impression 62 Prognosis progressing Follow-up With When Contact Information Carlota RODRIGUEZ CNP In 4 weeks Additional Instructions: (more content not included)...[facility] OhioComment on above:Result Comment: Electronically Signed By: Carlota RODRIGUEZ CNP\harshil\Date and Time Signed: 01/27/20 22:35 [id number] NoteI Staff This visit was conducted via two-way, real-time interactive video communications from my office using [employer] due to the restrictions of the COVID-19 pandemic. No physical exam was conducted other than those areas of the body visible to telecommunications with the patient located at [address] [place] [phone], with no one else in attendance. If [...] Ordered: TELEHEALTH Office Visit Level 3 Est 43972 General Treatment Plan Maintain medication regimen _Improve [...] Use:. Never Smokeless Tob (more content not included)...[facility] OhioComment on above:Result Comment: Electronically Signed By: Carlota RODRIGUEZ CNP\.mati\Date and Time Signed: 01/13/20 09:11 [id number] NoteI Staff This visit was conducted via two-way, real-time interactive video communications from my office using [employer] due to the restrictions of the COVID-19 pandemic. No physical exam was conducted other than those areas of the body visible to telecommunications with the patient located at [address] [place] [address], with no one else in attendance. If [...] 30 tab(s), Refills(s) 1, Pharmacy: [facility]/pharmacy #[id number], 161, cm, 12/23/19 10:18:00 EDT, Height/Length Dosing, 82, kg, 12/23/19 10:18:00 EDT, Weight Dosing alprazolam, 0.5 mg = 1 tab(s), Oral, TID, PRN for anxiety, # 30 tab(s), Refills(s) 1, Pharmacy: [facility]/pharmacy #[id number], 161, cm, 06/13/19 14:39:00 EST, Height/Length Measured, 82, kg, 06/13/19 14:39:00 EST, Weight Measured aripiprazole, See Instructions, 1 tab po qAM, # 30 tab(s), Refills(s) 0, Pharmacy: [facility]/pharmacy #[id number], 161, cm, 12/23/19 10:18:00 EDT, Height/Length [...] Allergies Bactrim Social History (more content not included)...[facility] on above:Result Comment: Electronically Signed By: Carlota RODRIGUEZ CNP\.br\Date and Time Signed: 12/23/19 16:37 [id number] NoteI Staff This visit was conducted via two-way, real-time interactive video communications from my office using [employer] due to the restrictions of the COVID-19 pandemic. No physical exam was conducted other than those areas of the body visible to telecommunications with the patient located at [address] [place] [address], with no one else in attendance. If [...] q24hr, # 30 tab(s), Refills(s) 2, Pharmacy: [facility]/pharmacy #[id number],161, cm, 06/13/19 14:39:00 EST, Height/Length Measured, 82, kg, 06/13/19 14:39:00 EST, Weight Measured cyclobenzaprine, 10 mg = 1 tab(s), Oral, TID, PRN for spasm, # 30 tab(s), Refills(s) 1, Pharmacy: [facility]/pharmacy #[id number], 161, cm, 06/13/19 14:39:00 EST, Height/Length [...] Employment/School Employed, 03/18/2019 Home/Environment (more content not included)...[facility] [place] on above:Result Comment: Electronically Signed By: Carlota RODRIGUEZ CNP\harshil\Date and Time Signed: 12/02/19 16:38 EDTChief complaint+Reason for visit Narrative* Chief Complaint Nausea, diarrhea, fe zhou Reason for Visit Contact with and (guillen spected) exposure to covid-19 Sore throat [facility] Work Phone: Evaluation note* Diagnosis Onset Date Resolution Status Contact with and (suspected) exposure to covid-19 noneactive Sore throat noneactive [facility] Work Phone: Evaluation note* Diagnosis 21 weeks gestation of - Primary Obesity affecting in second trimester, unspecified obesity type [facility] Diagnosis 21 weeks gestation of - Primary Multigravida of advanced maternal age in second trimester Pyelonephritis affecting in second trimester Bipolar disease during in second trimester ([facility]) Obesity affecting in second trimester, unspecified obesity type BMI 39.0-39.9,adult History of section complicating Previous delivery, unspecified as to episode of care or not applicable Vapes nicotine containing substance Current rao with 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, antepartum History of delivery, currently with history of pre-term labor [facility] Diagnosis 22 weeks gestation of Second trimester state, incidental Diabetes mellitus screening Screening for diabetes mellitus documented in this encounter [facility] [...] , antepartum [facility] Diagnosis Third trimester state, incidental 35 weeks gestation of Gestational diabetes mellitus (GDM) in third trimester, gestational diabetes method of control unspecified [facility] Narrative - Reported* Type Description Date Medical History Bipolar Surgical History appendectomy Surgical History x 3 Hospitalization History see above surgical histo ry [facility] [employer] Other InstructionsNot on filedocumented in this encounter [employer] SystemInstructions* Attachments The following attachments cannot be sent through Care Everywhere. * Preeclampsia (French) * Movement (French) [facility] Advance Directives No Advanced Directives Records [...] may need to be seen by an load mixer if you have other events like this without definite egg exposure. Summary Purpose Family History No Family History Records Found Relationship Condition Age at Onset Recorded Date/T alo father Diabetes mellitus Unknown Hypertension Unknown Additional Source Comments INFORMATION SOURCE (unrecogn ized section and content) DATE CREATED AUTHOR [facility]/30/2020 [facility] DATE CREATED AUTHOR AUTHOR'S ORGANIZ ATION 04/29/2022 [facility] DATE CREATED AUTHOR AUTHOR'S ORGANIZ ATION 03/16/2024 [facility] DATE CREATED AUTHOR AUTHOR'S ORGANIZ ATION 04/25/2024 [facility] DATE CREATED AUTHOR AUTHOR'S ORGANIZ ATION 05/24/2024 [facility] EPIC REASON FOR VISIT (unrecogniz [...] Team Status: Inactive Member Role Status Dates AJQUAN Hilton Primary Care Provider Active Start: August 18, 2023 End: August 18, 2023 Sanaz Lockwood APRN Attending Provider Active Start: August 18, 2023 End: August 18, 2023 Pattern Maker Relationship Specialty Start Date End Date No Pcp, [place] [address] PCP - General Family Medicine 03/12/19 Pattern Maker Relationship Specialty Start Date End Date No Pcp, [place] [address] PCP - General Family Medicine 03/12/19 Goals [...] BE BASED ON THE PRIMARY CLINICAL RECORDS. [facility] [employer] [facility]. provides no warranty or guarantee of the accuracy or completeness of information in this document.
[2024-05-28 13:34] VITALS: BP 126/76; PULSE 90
== END 2024-05-28 13:42 | disposition home or self-care (01) ==
LOC: FBCO 00:58 → FBC 13:07
PROVIDERS: PCP Nurse Practitioner Family; Visit Provider Obstetrics & Gynecology
DX: O24.419 Gestational diabetes mellitus in pregnancy, unspecified control (principal)
CPT/HCPCS: 59025

== ENCOUNTER 2024-05-29 13:19 | Outpatient (REF) | payer BC, OTHER, SELFPAY ==
--- OUTSIDE RECORDS SUMMARY | 2024-05-30 13:33 | XMS_ITS | CCD ---
Author Organization [facility] Care Team Providers Care Jig Builder Name Role Phone Kimberlyn Xie Primary Care Provider Unavail able KIMBERLYN XIE Primary Care Unavailable LEONARDO, DR HECK Admitting Unavailable LEONARDO, DR HECK Attending Unavailable LEONARDO, DR HECK Consulting Unavailable PACO LONGORIA Consulting Unavailable ROCIO CHAU Consulting Unavailable KIMBERLYN XIE Primary Care Unavailable EMA KEATING Admitting Unavailable MEA KEATING Attending Unavailable SURJIT FREITAS Consulting Unavailable [...] DUQUE Attending Unavailable JORJE, JOHNATHAN Attending Unavailable OJRJE, JOHNATHAN Attending Unavailable JORJE, JOHNATHAN Attending Unavailable KTLIZA Attending Unavailable LIZA DUQUE Attending Unavailable JORJE, JOHNATHAN Attending Unavailable LIZA DUQUE Attending Unavailable Unavailable Unavailable Unavailable Allergies Allergy Classification Reported Allergen(s) Allergy Type Date of Onset Reaction(s) Facility (3 sources) egg extract; 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: [egg] Drug Allergy 08-18-19 24 Vomiting [facility] (20 sources) Sulfamethoxazole; 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: [SULFAMETHOXAZOLE] Drug Allergy 08-18-19 24 [facility] (20 sources) Trimethoprim; 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: [TRIMETHOPRIM] Drug Allergy 08-18-19 24 [facility] (3 sources) Fish Containing Products; 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: [Fish Containing Products] Propensity to adverse reactions 08-18-19 24 Difficulty Breathing [facility] (1 source) Sulfamethoxazole / Trimethoprim Drug Allergy 02-04-20 13 [facility] (20 sources) Sulfamethoxazole / Trimethoprim Drug Allergy 11-24-19 24 hives, Unknown [place] Other (20 sources) Egg-Derived Products Drug Allergy [...] (six) hours as needed for pain. Active [id number] 200 actuat albuterol 0.09 mg/actuat metered dose [...] Glucose Monitoring Suppl (D-Care Glucometer) w/Device kit (15 sources) Start: 03-25-2024 End: 03-25-2025 Blood Glucose [...] oral tablet (1 source) alpha-Adrenergic Agonist, Uncompetitive X-wsmiyk-C-aspartate Receptor Antagonist, Sigma-1 Agonist Start: 04-27-2023 take 4 tablets by mouth every twenty-four hours as needed Capmist DM 60-15-400 MG as needed Orally every 4-6 hours as needed, max 4 tablets in 24 hours for 5 days Mar, Active [id number] 0.3 ml EPINEPHrine 1 mg/ml auto-injector (2 [...] Active 20 MG Oral Twice daily 6 June 29, 2019 10:18pm hydrOXYzine hydrochloride 25 mg oral tablet (4 sources) Antihistamine Start: 06-29-2019 take 25 mg by mouth every six hours Hydroxyzine Hcl Active 25 MG Oral Q6H 15 June 29, 2019 10:18pm hydrOXYzine HCl Active insulin isophane, human 100 unt/ml injectable suspension (6 sources) Start: 05-22-2024 inject 10 [IU] by [...] insulin, regular, human 100 unt/ml injectable solution (6 sources) Insulin Start: 05-22-2024 End: 06-21-2024 inject [...] Active isopropyl alcohol 0.7 ml/ml medicated pad (15 sources) Start: 03-25-2024 Alcohol Swabs (Alcohol Prep [...] 01/08/2025 Active metoclopramide 10 mg oral tablet (20 sources) Dopamine-2 Receptor Antagonist Start: 04-03-2024 End: [...] 12:00am Start: 05-10-2022 take 1 tablet by rcystal th every eight hours as needed Zofran [...] Active promethazine hydrochloride 12.5 mg oral tablet (20 sources) Phenothiazine Start: 03-25-20 End: 06-23-19 take [...] 18, 2023 12:00am take [address] [facility] every twenty-four hours in the morning [...] Date Documented Da te Episodic/Chronic Abdominal pain (19 sources) Unspecified abdominal pain; 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: [Flank pain] [...] Hypertension complicating ; childbirth and the puerperium (11 sources) Elevated blood pressure; 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: [Unspecified maternal [...] 03-09-2022 Episodic Other aftercare (1 source) Other material cutter (current) drug therapy; 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: [OTH NURSE STAFF INDUSTRIAL CURRENT DRUG THERAPY] Onset: 04-29-2022 Episodic Other [...] of ] 03-21-2024 Episodic Residual codes; unclassified (16 sources) Gestation period, 28 weeks; 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: [28 weeks gestation of ] Onset: 04-03-2024 04-03-2024 Episodic Residual codes; unclassified (2 sources) Gestation period, 18 weeks; 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: [18 weeks gestation of ] 01-24-2024 Episodic Residual codes; unclassified (11 sources) Gestation period, 33 weeks; 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: [33 weeks gestation of ] Onset: 05-13-2024 05-13-2024 Episodic Residual codes; unclassified (2 sources) Gestation period, 35 weeks; 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: [35 weeks gestation of ] 05-22-2024 Episodic Residual codes; unclassified (2 sources) Gestation period, 36 weeks; 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: [36 weeks gestation of ] 05-29-2024 Episodic Substance-related disorders (1 source) Nicotine dependence, cigarettes, uncomplicated; 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: [NICOTINE DEPEND CIGARETTES UNCOMP] Onset: 04-29-2022 Chronic Unclassified (1 source) PERSONAL HISTORY OF COVID-19; 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: [PERSONAL HISTORY OF COVID-19] Onset: 04-29-2022 Unclassified (1 source) transport Onset: 02-08-2024 Urinary tract infections (20 sources) Acute cystitis; 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: [Acute cystitis with hematuria] Onset: 02-08-2024 03-06-2024 Episodic Past or Other Problems Problem Classification Problem Date Documented Da te Episodic/Chronic Other skin disorders (2 sources) Eruption; 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: [Rash and other nonspecific skin eruption] 01-03-2024 Episodic Unclassified (1 source) Suspected COVID-19 virus infection Z20.822 Results Test Name Value Interpretation Reference Range Facility ALL CBC WITH AUTO DIFFon BASOPHILS ABSOLUTE AUTO 0 [facility] Basophils/100 WBC (Bld) 0.3 % 0.2 - 2.0 % [facility] Eosinophils/100 WBC (Bld) 0.5 % Low 0.9 - 7.0 % [facility] Erythrocyte distribution width (RBC) [Ratio] 13.2 % 11.0 - 15.0 % [facility] Hematocrit (Bld) [Volume fraction] 33.4 % Low 36.0 - 48.0 % [facility] Hemoglobin (Bld) [Mass/Vol] 10.9 g/dL Low 12.0 - 16.0 g/dL [facility] IMMATURE GRANULOCYTES ABS AUTO 0.03 [facility] Immature granulocytes/100 WBC (Bld) 0.4 % 0.0 - 0.5 % [facility] Interpretation and review of laboratory results Abnormal [facility] LYMPHOCYTES ABSOLUTE AUTO 1.5 [facility] Lymphocytes/100 WBC (Bld) 20.7 % 20.5 - 60.0 % [facility] MCH (RBC) [Entitic mass] 29.1 pg 26.7 - 34.0 pg [facility] MCHC (RBC) [Mass/Vol] 32.6 g/dL 29.9 - 35.2 g/dL [facility] MCV (RBC) [Entitic vol] 89.1 fL 81.0 - 99.0 fL [facility] MONOCYTES ABSOLUTE AUTO 0.4 [facility] Monocytes/100 WBC (Bld) 5.8 % 1.7 - 12.0 % [facility] NEUTROPHILS ABSOLUTE AUTO 5.4 [facility] Neutrophils/100 WBC (Bld) 72.3 % 43.0 - 75.0 % [facility] Platelet mean volume (Bld) [Entitic vol] 11.2 fL 9.5 - 13.5 fL [facility] TBH EO # 0 [facility] TB PLT 269 [facility] e [facility] RBC 3.75 Low [facility] TB WBC 7.4 [facility] Urinalysis macro (dipstick) panel (U)on 05-29-2024 Bilirubin, UA Negative Negative - 4(70) +++ mg/dL [facility] Blood, UA Negative Negative - 50 Slick/mcL [facility] Clarity, UA Clear [facility] re Color, UA Yellow [facility] e Glucose, UA Negative Negative - 1999(110) ++++ mg/dL [facility] Interpretation and review of laboratory results Normal [facility] Ketones, UA Negative Negative - 160(16) ++++ mg/dL [facility] Leukocytes, UA Negative Negative - 500+++ Mira/mcL [facility] Nitrite, UA Negative Negative - Positive [facility] pH, UA 6 5 - 9 [facility] Protein, UA Negative Negative - 1999(20) ++++ mg/dL [facility] Healthcare Spec Grav, UA 1.015 1 - 1.03 [facility] Urobilinogen, UA 0.2 0.2 - 12 mg/dL [facility] Healthcar e Urinalysis macro (dipstick) panel (U)on 05-22-2024 Bilirubin, UA Negative Negative - 4(70) +++ mg/dL [facility] Blood, UA Negative Negative - 50 Slick/mcL [facility] Clarity, UA Clear [facility] Color, UA Yellow [facility] Glucose, UA Negative Negative - 1999(110) ++++ mg/dL [facility] Interpretation and review of laboratory results Abnormal [facility] Ketones, UA Negative Negative - 160(16) ++++ mg/dL [facility] Healthcare Leukocytes, UA Trace Negative - 500+++ Mira/mcL [facility] Healthcare Nitrite, UA Negative Negative - Positive [facility] pH, UA 6 5 - 9 [facility] Healthcar e Protein, UA Trace Negative - 1999(20) ++++ mg/dL [facility] Healthcare Spec Grav, UA 1.015 1 - 1.03 [facility] Health care Urobilinogen, UA 0.2 0.2 - 12 mg/dL [facility] Urinalysis macro (dipstick) panel (U)on 05-13-2024 Bilirubin, UA Negative Negative - 4(70) +++ mg/dL [facility] Blood, UA Positive Negative - 50 Slick/mcL [facility] Healthcare Comment on above: trace Clarity, UA Clear [facility] Color, UA Yellow [facility] Healthcar e Glucose, UA Negative Negative - 1999(110) ++++ mg/dL [facility] Interpretation and review of laboratory results Abnormal [facility] Ketones, UA Negative Negative - 160(16) ++++ mg/dL [facility] Healthcare Leukocytes, UA Negative Negative - 500+++ Mira/mcL [facility] Healthcare Nitrite, UA Negative Negative - Positive [facility] pH, UA 6.5 5 - 9 [facility] Protein, UA Negative Negative - 1999(20) ++++ mg/dL [facility] Spec Grav, UA 1.01 1 - 1.03 [facility] Urobilinogen, UA 0.2 0.2 - 12 mg/dL [facility] US OB FOLLOW UP TRANSABDOMIN [...] 2513 gm / 5 lbs, 8 oz (8742-1179 gm) [place] Normal: 2393 gm (6262-9151 gm) [place] Wt%: 65% for 34.1 wks [...] as of 03/21/2024: 32w3d TBH UA (CLEAN/CATCH) ADVERTISING COORDINATOR/CHUY RO IF IND.on 04-22-2024 BILIRUBIN URINE Negative [...] (U) No Growth 2 Days PERFORMED BY: [facility] [address] [id number] PATHOLOGIST ORACLE DATABASE DEVELOPER SYD SHEFFIELD M.D. Normal [facility] Comment on above: Performed By: #### C UU #### [facility] [address] [id number] [facility] RECURRENT VAGINITIS (HTRX)on 04-06-2024 ATOPOBIUM VAGINAE 0 [...] UA Negative Negative - 4(70) +++ mg/dL [facility] Blood, UA Negative Negative - 50 Slick/mcL [facility] Clarity, UA Cloudy [facility] Color, UA Yellow [facility] Glucose, UA 1+ Negative - 2000(110) ++++ mg/dL [facility] Comment on above: 100mg/dL Interpretation and review of laboratory results Abnormal [facility] Ketones, UA Negative Negative - 160(16) ++++ mg/dL [facility] Leukocytes, UA Trace Negative - 500+++ Mira/mcL [facility] Nitrite, UA Negative Negative - Positive [facility] pH, UA 6 5 - 9 [facility] Protein, UA Negative Negative - 2000(20) ++++ mg/dL [facility] Spec Grav, UA 1.01 1 - 1.03 [facility] Urobilinogen, UA 0.2 0.2 - 12 mg/dL [facility] Health[facility] e ALL CBC WITH AUTO DIFFon BASOPHILS ABSOLUTE AUTO 0 [facility] Basophils/100 WBC (Bld) 0.1 % Low 0.2 - 2.0 % [facility] Eosinophils/100 WBC (Bld) 0.5 % Low 0.9 - 7.0 % [facility] Erythrocyte distribution width (RBC) [Ratio] 13.9 % 11.0 - 15.0 % [facility] Hematocrit (Bld) [Volume fraction] 35.2 % Low 36.0 - 48.0 % [facility] Hemoglobin (Bld) [Mass/Vol] 11.5 g/dL Low 12.0 - 16.0 g/dL [facility] IMMATURE GRANULOCYTES ABS AUTO 0.05 High [facility] Immature granulocytes/100 WBC (Bld) 0.6 % High 0.0 - 0.5 % [facility] Interpretation and review of laboratory results Abnormal [facility] LYMPHOCYTES ABSOLUTE AUTO 1.9 [facility] Lymphocytes/100 WBC (Bld) 22.9 % 20.5 - 60.0 % [facility] MCH (RBC) [Entitic mass] 30.5 pg 26.7 - 34.0 pg [facility] MCHC (RBC) [Mass/Vol] 32.7 g/dL 29.9 - 35.2 g/dL [facility] MCV (RBC) [Entitic vol] 93.4 fL 81.0 - 99.0 fL [facility] MONOCYTES ABSOLUTE AUTO 0.3 [facility] Monocytes/100 WBC (Bld) 3.3 % 1.7 - 12.0 % [facility] NEUTROPHILS ABSOLUTE AUTO 6.1 [facility] Neutrophils/100 WBC (Bld) 72.6 % 43.0 - 75.0 % [facility] Platelet mean volume (Bld) [Entitic vol] 10.5 fL 9.5 - 13.5 fL [facility] TBH EO # 0 [facility] TB PLT 347 [facility] TB RBC 3.77 Low [facility] TB WBC 8.4 [facility] e Urinalysis macro (dipstick) panel (U)on 03-21-2024 Bilirubin, UA Negative Negative - 4(70) +++ mg/dL [facility] Blood, UA Negative Negative - 50 Slick/mcL [facility] Clarity, UA Cloudy [facility] Color, UA Yellow [facility] Glucose, UA Positive Negative - 1999(110) ++++ mg/dL [facility] Comment on above: 500 mg Interpretation and review of laboratory results Abnormal [facility] Ketones, UA Negative Negative - 160(16) ++++ mg/dL [facility] Leukocytes, UA Negative Negative - 500+++ Mira/mcL [facility] Nitrite, UA Negative Negative - Positive [facility] pH, UA 6.5 5 - 9 [facility] Healthcar e Protein, UA Negative Negative - 1999(20) ++++ mg/dL [facility] Healthcare Spec Grav, UA 1.025 1 - 1.03 [facility] Urobilinogen, UA 0.2 0.2 - 12 mg/dL [facility] Urinalysis macro (dipstick) panel (U)on 03-11-2024 Bilirubin, UA Negative Negative - 4(70) +++ mg/dL [facility] Blood, UA Positive Negative - 50 Slick/mcL [facility] Healthcare Comment on above: large Clarity, UA Clear [facility] Color, UA Straw [facility] Glucose, UA Negative Negative - 1999(110) ++++ mg/dL [facility] Interpretation and review of laboratory results Abnormal [facility] Ketones, UA Negative Negative - 160(16) ++++ mg/dL [facility] Leukocytes, UA Negative Negative - 500+++ Mira/mcL [facility] Healthcare Nitrite, UA Negative Negative - Positive [facility] pH, UA 6 5 - 9 [facility] Protein, UA Negative Negative - 1999(20) ++++ mg/dL [facility] Spec Grav, UA 1.02 1 - 1.03 [facility] Urobilinogen, UA 0.2 0.2 - 12 mg/dL [facility] TBH UA (CLEAN/CATCH) ADVERTISING COORDINATOR/CHUY RO IF IND.on 03-06-2024 BILIRUBIN URINE COLOR INTERFERENCE Abnormal NEGATIVE N [facility] BLOOD URINE COLOR INTERFERENCE Abnormal NEGATIVE [facility] Healthcare Clarity (U) CLEAR CLEAR [facility] re Color (U) DK. RED YELLOW [facility] Health[facility] e GLUCOSE URINE UA COLOR INTERFERENCE Abnormal NEGAT CARMELITA mg/dL [facility] Interpretation and review of laboratory results Abnormal [facility] Ketones Ql (U) COLOR INTERFERENCE Abnormal NEGATIV E mg/dL [facility] Leukocyte esterase Test strip Ql (U) COLOR INTERFERENCE Abnormal NEGATIVE [facility] care NITRITE URINE COLOR INTERFERENCE Abnormal NEGATIVE [facility] PH URINE COLOR INTERFERENCE Abnormal 5.0 - 9.[address] [facility]care PROTEIN URINE COLOR INTERFERENCE Abnormal NEG/TRAC E mg/dL [facility] SPECIFIC GRAVITY URINE 1.020 1.005 - 1.025 [facility] URINE MICROSCOPIC INDICATED YES [facility] UROBILINOGEN URINE COLOR INTERFERENCE Abnormal 0.2 - 1.0 EU/dL [facility] Health[facility] e Urinalysis macro (dipstick) panel (U)on 03-06-2024 Bilirubin, UA Positive Negative - 4(70) +++ mg/dL [facility] Blood, UA Positive Negative - 50 Slick/mcL [facility] Comment on above: large Clarity, UA Clear [facility] Health[facility] re Color, UA Dark Sanaz [facility] Health[facility] e Glucose, UA Negative Negative - 1999(110) ++++ mg/dL [facility] Interpretation and review of laboratory results Abnormal [facility] Ketones, UA Negative Negative - 160(16) ++++ mg/dL [facility] Leukocytes, UA Trace Negative - 500+++ Mira/mcL [facility] Nitrite, UA Positive Negative - Positive [facility] pH, UA 6 5 - 9 [facility] Protein, UA Positive Negative - 1999(20) ++++ mg/dL [facility] Comment on above: 100 Spec Grav, UA 1.02 1 - 1.03 [facility] Urobilinogen, UA 1.0 0.2 - 12 mg/dL [facility] Urinalysis macro (dipstick) panel (U)on 02-21-2024 Bilirubin, UA Negative Negative - 4(70) +++ mg/dL [facility] Blood, UA Negative Negative - 50 Slick/mcL [facility] Clarity, UA Clear [facility] re Color, UA Yellow [facility] e Glucose, UA Negative Negative - 1999(110) ++++ mg/dL [facility] Interpretation and review of laboratory results Abnormal [facility] Ketones, UA Negative Negative - 160(16) ++++ mg/dL [facility] Leukocytes, UA Trace Negative - 500+++ Mira/mcL [facility] Nitrite, UA Negative Negative - Positive [facility] pH, UA 5.5 5 - 9 [facility] e Protein, UA Negative Negative - 1999(20) ++++ mg/dL [facility] Spec Grav, UA 1.01 1 - 1.03 [facility] Urobilinogen, UA 0.2 0.2 - 12 mg/dL [facility] e CBC AND AUTO DIFFon 02-09-20 ABSOLUTE BASOPHIL 0.0 X10E9/L Normal 0.0-0.2 [facility] Comment on above: Performed By: #### 3 2132-1, CMP, CBCA #### [facility] ([id number]) [address] [place] [address] ABSOLUTE NEUTROPHIL 5.4 X10E9/L Normal 1.5-6.6 [facility] Comment on above: Performed By: #### 3 2132-1, CMP, CBCA #### [facility] ([id number]) [address], [address] [place] [address] Basophils/100 WBC (Bld) 0.2 % Normal [facility] Comment on above: Performed By: #### 3 2132-1, CMP, CBCA #### [facility] ([id number]) [address], [address] [place] [address] Eosinophils (Bld) [#/Vol] 0.1 10*3/uL Normal 0.0-0.4 [facility] Comment on above: Performed By: #### 3 2132-1, CMP, CBCA #### [facility] ([id number]) [address], [address] [place] [address] Eosinophils/100 WBC (Bld) 0.9 % Normal [facility] Comment on above: Performed By: #### 3 2132-1, CMP, CBCA #### [facility] ([id number]) [address], [facility] [address] [place] [address] Erythrocyte distribution width (RBC) [Ratio] 14.3 % Normal 11.5-15.0 [facility] Comment on above: Performed By: #### 3 2132-1, CMP, CBCA #### [facility] ([id number]) [address], [facility] [address] [place] [address] Hematocrit (Bld) [Volume fraction] 30.3 % Low 35-47 [facility] Comment on above: Performed By: #### 3 2132-, CMP, CBCA #### [facility] ([id number]) [address], [facility] [address] [place] [address] Hemoglobin (Bld) [Mass/Vol] 10.3 g/dL Low 11.7-15.5 [facility] Comment on above: Performed By: #### 3 2132-1, CMP, CBCA #### [facility] ([id number]) [address], [address] [place] [address] Lymphocytes (Bld) [#/Vol] 1.7 10*3/uL Normal 1.0-3.5 [facility] Comment on above: Performed By: #### 3 2132-1, CMP, CBCA #### [facility] ([id number]) [address], [address] [place] [address] Lymphocytes/100 WBC (Bld) 22.0 % Normal [facility] Comment on above: Performed By: #### 3 2132-1, CMP, CBCA #### [facility] ([id number]) [address], [address] [place] [address] MCH (RBC) [Entitic mass] 31.3 pg Normal 27-34 [facility] Comment on above: Performed By: #### 3 2132-1, CMP, CBCA #### [facility] ([id number]) [address], [address] [place] [address] MCHC (RBC) [Mass/Vol] 34.0 g/dL Normal 32-36 [facility] Comment on above: Performed By: #### 3 2132-1, CMP, CBCA #### [facility] ([id number]) [address], [address] [place] [address] MCV (RBC) [Entitic vol] 92 fL Normal 80-100 [facility] Comment on above: Performed By: #### 3 2132-1, CMP, CBCA #### [facility] ([id number]) [address], [address] [place] [address] Monocytes (Bld) [#/Vol] 0.5 10*3/uL Normal 0-0.9 [facility] Comment on above: Performed By: #### 3 2132-1, CMP, CBCA #### [facility] ([id number]) [address], [address] [place] [address] Monocytes/100 WBC (Bld) 7.0 % Normal [facility] Comment on above: Performed By: #### 3 2132-1, CMP, CBCA #### [facility] ([id number]) [address], [address] [place] [address] Neutrophils/100 WBC (Bld) 69.9 % Normal [facility] Comment on above: Performed By: #### 3 2132-1, CMP, CBCA #### [facility] ([id number]) [address], [address] [place] [address] Platelet mean volume (Bld) [Entitic vol] 8.8 fL Normal 7-12 [facility] Comment on above: Performed By: #### 3 2132-1, CMP, CBCA #### [facility] ([id number]) [address], [facility] [address] [place] [address] Platelets (Bld) [#/Vol] 259 10*3/uL Normal 150-450 [facility] Comment on above: Performed By: #### 3 2132-1, CMP, CBCA #### [facility] ([id number]) [address], [facility] [address] [place] [address] RBC COUNT 3.29 X10E12/L Low 3.80-5.20 [facility] Comment on above: Performed By: #### 3 2132-1, CMP, CBCA #### [facility] ([id number]) [address], [facility] [address] [place] [address] WBC (Bld) [#/Vol] 7.7 10*3/uL Normal 4.0-11.0 [facility] Comment on above: Performed By: #### 3 2132-1, CMP, CBCA #### [facility] ([id number]) [address], [address] [place] [address] COMPREHENSIVE METABOLIC PANE Paco 02-09-2024 Albumin [Mass/Vol] 2.9 g/dL Low 3.2-5.3 [facility] Comment on above: Performed By: #### 3 2132-1, CMP, CBCA #### [facility] [facility] ([id number]) [address], [address] [place] [address] ALP [Catalytic activity/Vol] 118 U/L Normal 39-130 [facility] Comment on above: Performed By: #### 3 2132-1, CMP, CBCA #### [facility] ([id number]) [address], [address] [place], [place] [address] ALT [Catalytic activity/Vol] 6 U/L Normal 0-31 [facility] Comment on above: Performed By: #### 3 2132-1, CMP, CBCA #### [facility] ([id number]) [address], [address] [place], [place] [address] Anion gap [Moles/Vol] 10 mmol/L Normal 5-15 [facility] Comment on above: Performed By: #### 3 2132-1, CMP, CBCA #### [facility] ([id number]) [address], [address] [place], [place] [address] AST [Catalytic activity/Vol] 9 U/L Normal 0-41 [facility] Comment on above: Performed By: #### 3 2132-1, CMP, CBCA #### [facility] ([id number]) [address], [address] [place], [place] [address] Bilirubin [Mass/Vol] 0.4 mg/dL Normal 0.3-1.2 [facility] Comment on above: Performed By: #### 3 2132-1, CMP, CBCA #### [facility] ([id number]) [address], [address] [place] [address] Calcium [Mass/Vol] 8.5 mg/dL Normal 8.5-10.5 [facility] Comment on above: Performed By: #### 3 2132-1, CMP, CBCA #### [facility] ([id number]) [address], [address] [place] [address] Chloride [Moles/Vol] 105 mmol/L Normal 98-109 [facility] Comment on above: Performed By: #### 3 2132-1, CMP, CBCA #### [facility] ([id number]) [address], [address] [place] [address] CO2 [Moles/Vol] 22 mmol/L Normal 22-32 [facility] Comment on above: Performed By: #### 3 2132-1, CMP, CBCA #### [facility] ([id number]) [address] [place] [address] Creatinine [Mass/Vol] 0.45 mg/dL Normal 0.40-1.00 [facility] Comment on above: Result Comment: METH OD TRACEABLE TO IDMS STANDARD Performed By: #### 3 2132-1, CMP, CBCA #### [facility] ([id number]) [address] [address] eGFR (CKD-EPI) NON-RACE DEPENDENT >90 Normal >59 [facility] Comment on above: Result Comment: Reported eGFR is based on the CKD-EPI 2020 equation that does not use a race coefficient. Performed By: #### 3 2132-1, CMP, CBCA #### [facility] ([id number]) [address] [address] Glucose [Mass/Vol] 84 mg/dL Normal 65-99 [facility] Comment on above: Performed By: #### 3 2132-1, CMP, CBCA #### [facility] ([id number]) [address] [address] Potassium [Moles/Vol] 3.7 mmol/L Normal 3.5-5.0 [facility] Comment on above: Performed By: #### 3 2132-1, CMP, CBCA #### [facility] ([id number]) [address] [place] [address] Protein [Mass/Vol] 6.0 g/dL Normal 6.0-8.0 [facility] Comment on above: Performed By: #### 3 2132-1, CMP, CBCA #### [facility] ([id number]) [address] [address] Sodium [Moles/Vol] 137 mmol/L Normal 134-146 [facility] Comment on above: Performed By: #### 3 3-1, CMP, CBCA #### [facility] ([id number]) [address], [address] [place] [address] Urea nitrogen [Mass/Vol] 5 mg/dL Normal 5-23 [facility] Comment on above: Performed By: #### 3 3-1, CMP, CBCA #### [facility] ([id number]) [address], [address] [place] [address] MAGNESIUMon 02-09-2024 Magnesium [Mass/Vol] 1.6 mg/dL Low 1.8-2.6 [facility] Comment on above: Performed By: #### 3 2132-1, CMP, CBCA #### [facility] ([id number]) [address] [place] [address] PHOSPHORUSon 02-09-2024 Phosphate [Mass/Vol] 4.5 mg/dL Normal 2.4-4.9 [facility] Comment on above: Performed By: #### 3 2132-1, CMP, CBCA #### [facility] ([id number]) [address], [address] [place] [address] US RETROPERITONEAL LIMITEDon 02-09-2024 US RETROPERITONEAL LIMITED [...] Andrade MD on 02/09/2024 10:14 AM Normal [facility] BLOOD CULTUREon 02-08-2024 Bacteria identified Aer cx Nom (Bld) SPECIMEN NOTES SUBOPTIMAL VOLUME OF BLOOD COLLECTED, RESULTS MAY BE AFFECTED. CULTURE RESULTS NO GROWTH 5 DAYS Normal [facility] Comment on above: Performed By: #### 3 2132-1, CMP, CBCA #### [facility] ([id number]) [address], [address] [place] [address] Bacteria identified Aer cx Nom (Bld) SPECIMEN NOTES SUBOPTIMAL VOLUME OF BLOOD COLLECTED, RESULTS MAY BE AFFECTED. CULTURE RESULTS NO GROWTH 5 DAYS Normal [facility] Comment on above: Performed By: #### 1 7928-3 #### [facility] ([id number]) [address], [address] [place] [address] CBC AND AUTO DIFFon 02-08-20 24 ABSOLUTE BASOPHIL 0.0 X10E9/L Normal 0.0-0.2 [facility] Comment on above: Performed By: #### 3 2132-05, CMP, CBCA #### [facility] ([id number]) [address], [address] [place] [address] ABSOLUTE NEUTROPHIL 9.5 X10E9/L High 1.5-6.6 [facility] Comment on above: Performed By: #### 3 2132-1, CMP, CBCA #### [facility] ([id number]) [address], [address] [address] Basophils/100 WBC (Bld) 0.0 % Normal [facility] Comment on above: Performed By: #### 3 2132-1, CMP, CBCA #### [facility] ([id number]) [address], [address] [place] [address] [place] [address] Eosinophils (Bld) [#/Vol] 0.0 10*3/uL Normal 0.0-0.4 [facility] Comment on above: Performed By: #### 3 2132-1, CMP, CBCA #### [facility] ([id number]) [address], [facility] [address] [place] [address] Eosinophils/100 WBC (Bld) 0.0 % Normal [facility] Comment on above: Performed By: #### 3 2132-1, CMP, CBCA #### [facility] ([id number]) [address] [place] [address] Erythrocyte distribution width (RBC) [Ratio] 14.5 % Normal 11.5-15.0 [facility] Comment on above: Performed By: #### 3 2132-1, CMP, CBCA #### [facility] ([id number]) [address], [address] [address] Hematocrit (Bld) [Volume fraction] 31.3 % Low 35-47 [facility] Comment on above: Performed By: #### 3 2132-05, CMP, CBCA #### [facility] ([id number]) [address] [address] Hemoglobin (Bld) [Mass/Vol] 10.6 g/dL Low 11.7-15.5 [facility] Comment on above: Performed By: #### 3 2132-, CMP, CBCA #### [facility] ([id number]) [address], [facility] [address] [place] [address] Lymphocytes (Bld) [#/Vol] 1.1 10*3/uL Normal 1.0-3.5 [facility] Comment on above: Performed By: #### 3 2132-1, CMP, CBCA #### [facility] ([id number]) [address], [address] [address] Lymphocytes/100 WBC (Bld) 9.4 % Normal [facility] Comment on above: Performed By: #### 3 2132-1, CMP, CBCA #### [facility] ([id number]) [address], [address] [place] [address] MCH (RBC) [Entitic mass] 30.8 pg Normal 27-34 [facility] Comment on above: Performed By: #### 3 2132-1, CMP, CBCA #### [facility] ([id number]) [address], [facility] [address] [place] [address] MCHC (RBC) [Mass/Vol] 33.9 g/dL Normal 32-36 [facility] Comment on above: Performed By: #### 3 2132-1, CMP, CBCA #### [facility] ([id number]) [address], [facility] [address] [place] [address] MCV (RBC) [Entitic vol] 91 fL Normal 80-100 [facility] Comment on above: Performed By: #### 3 2132-1, CMP, CBCA #### [facility] ([id number]) [address], [address] [place] [address] Monocytes (Bld) [#/Vol] 0.9 10*3/uL Normal 0-0.9 [facility] Comment on above: Performed By: #### 3 2132-1, CMP, CBCA #### [facility] ([id number]) [address], [facility] [address] [place] [address] Monocytes/100 WBC (Bld) 8.2 % Normal [facility] Comment on above: Performed By: #### 3 2132-1, CMP, CBCA #### [facility] ([id number]) [address], [address] [place] [address] Neutrophils/100 WBC (Bld) 82.4 % Normal [facility] Comment on above: Performed By: #### 3 2132-1, CMP, CBCA #### [facility] ([id number]) [address], [address] [place] [address] Platelet mean volume (Bld) [Entitic vol] 8.5 fL Normal 7-12 [facility] Comment on above: Performed By: #### 3 2132-1, CMP, CBCA #### [facility] ([id number]) [address], [address] [place] [address] Platelets (Bld) [#/Vol] 246 10*3/uL Normal 150-450 [facility] Comment on above: Performed By: #### 3 2132-1, CMP, CBCA #### [facility] ([id number]) [address], [address] [place] [address] RBC COUNT 3.44 X10E12/L Low 3.80-5.20 [facility] Comment on above: Performed By: #### 3 2132-1, CMP, CBCA #### [facility] ([id number]) [address], [address] [place] [address] WBC (Bld) [#/Vol] 11.5 10*3/uL High 4.0-11.0 [facility] Comment on above: Performed By: #### 3 2132-1, CMP, CBCA #### [facility] ([id number]) [address], [address] [place] [address] COMPREHENSIVE METABOLIC PANE Paco 02-08-2024 Albumin [Mass/Vol] 3.1 g/dL Low 3.2-5.3 [facility] Comment on above: Performed By: #### 3 2132-1, CMP, CBCA #### [facility] ([id number]) [address], [address] [place] [address] ALP [Catalytic activity/Vol] 100 U/L Normal 39-130 [facility] Comment on above: Performed By: #### 3 2132-1, CMP, CBCA #### [facility] ([id number]) [address], [address] [place] [address] ALT [Catalytic activity/Vol] 7 U/L Normal 0-31 [facility] Comment on above: Performed By: #### 3 2132-1, CMP, CBCA #### [facility] ([id number]) [address], [address] [place] [address] Anion gap [Moles/Vol] 12 mmol/L Normal 5-15 [facility] Comment on above: Performed By: #### 3 2132-1, CMP, CBCA #### [facility] ([id number]) [address], [address] [place] [address] AST [Catalytic activity/Vol] 8 U/L Normal 0-41 [facility] Comment on above: Performed By: #### 3 2132-1, CMP, CBCA #### [facility] ([id number]) [address], [address] [place] [address] Bilirubin [Mass/Vol] 0.5 mg/dL Normal 0.3-1.2 [facility] Comment on above: Performed By: #### 3 2132-1, CMP, CBCA #### [facility] ([id number]) [address], [address] [place] [address] Calcium [Mass/Vol] 8.3 mg/dL Low 8.5-10.5 [facility] Comment on above: Performed By: #### 3 2132-1, CMP, CBCA #### [facility] ([id number]) [address], [address] [place] [address] Chloride [Moles/Vol] 104 mmol/L Normal 98-109 [facility] Comment on above: Performed By: #### 3 2132-1, CMP, CBCA #### [facility] ([id number]) [address], [address] [place] [address] CO2 [Moles/Vol] 20 mmol/L Low 22-32 [facility] Comment on above: Performed By: #### 3 2132-1, IZAIAH, CBCA #### [facility] ([id number]) [address], [address] [place] [address] Creatinine [Mass/Vol] 0.53 mg/dL Normal 0.40-1.00 [facility] Comment on above: Result Comment: METH OD TRACEABLE TO IDMS STANDARD Performed By: #### 3 2132-1, IZAIAH CBCA #### [facility] ([id number]) [address], [address] [place] [address] eGFR (CKD-EPI) NON-RACE DEPENDENT >90 Normal >59 [facility] Comment on above: Result Comment: Reported eGFR is based on the CKD-EPI 2020 equation that does not use a race coefficient. Performed By: #### 3 2132-1, IZAIAH, CBCA #### [facility] ([id number]) [address], [address] [place] [address] Glucose [Mass/Vol] 115 mg/dL High 65-99 [facility] Comment on above: Performed By: #### 3 1, IZAIAH CBCA #### [facility] ([id number]) [address], [address] [place] [address] Potassium [Moles/Vol] 3.6 mmol/L Normal 3.5-5.0 [facility] Comment on above: Performed By: #### 3 2132-1, IZAIAH, CBCA #### [facility] ([id number]) [address], [address] [place] [address] Protein [Mass/Vol] 6.1 g/dL Normal 6.0-8.0 [facility] Comment on above: Performed By: #### 3 2132-1, CMP, CBCA #### [facility] ([id number]) [address], [address] [place] [address] Sodium [Moles/Vol] 136 mmol/L Normal 134-146 [facility] Comment on above: Performed By: #### 3 2132-1, CMP, CBCA #### [facility] ([id number]) [address], [address] [place] [address] Urea nitrogen [Mass/Vol] 3 mg/dL Low 5-23 [facility] Comment on above: Performed By: #### 3 2132-1, CMP, CBCA #### [facility] ([id number]) [address], [address] [place] [address] DRUG SCREEN, URINEon 024 AMPHETAMINE/METHAMP Negative Normal NEG [facility] Comment on above: Result Comment: AMPH /METH screening cut off = 1000 ng/mL Performed By: #### D GUILLEN #### [facility] ([id number]) [address], [address] [place] [address] BARBITURATES Negative Normal NEG [facility] Comment on above: Result Comment: Megan iturates screening cut off value = 200 ng/mL Performed By: #### D GUILLEN #### [facility] ([id number]) [address], [address] [place] [address] BENZODIAZEPINES Negative Normal NEG [facility] Comment on above: Result Comment: Giorgio odiazepines screening cut off value = 200 ng/mL Performed By: #### D GUILLEN #### [facility] ([id number]) [address], [address] [place] [address] CANNABINOIDS Negative Normal NEG [facility] Comment on above: Result Comment: Elsie abinoids/THC screening cut off value = 50 ng/mL Performed By: #### D GUILLEN #### [facility] ([id number]) [address], [address] [place] [address] COCAINE METABOLITE Negative Normal NEG [facility] Comment on above: Result Comment: Coca ine screening cut off value = 300 ng/mL Performed By: #### D GUILLEN #### [facility] ([id number]) [address] [place] [address] ECSTASY Negative Normal NEG [facility] Comment on above: Result Comment: Ecst asy screening cut off value = 500 ng/mL This report is intended for use in clinical monitoring or management of patients. Performed By: #### D GUILLEN #### [facility] ([id number]) [address], [address] [place] [address] METHADONE Negative Normal [facility] Comment on above: Result Comment: Meth adone screening cut off value = 300 ng/mL. Performed By: #### D GUILLEN #### [facility] ([id number]) [address] [place] [address] OPIATES Negative Normal NEG [facility] Comment on above: Result Comment: Opia joey screening cut off value = 300 ng/mL NOTE: This test is used for the detection of codeine, hydrocodone (>1000 ng/mL), morphine and hydromorphone (>900 ng/mL) in urine. Performed By: #### D GUILLEN #### [facility] ([id number]) [address], [address] [place] [address] OXYCODONE Negative Normal NEG [facility] Comment on above: Result Comment: Oxyc odone screening cut off value = 300 ng/mL NOTE: This test is used for the detection of oxycodone and oxymorphone in urine. Performed By: #### D GUILLEN #### [facility] ([id number]) [address] [place] [address] PHENCYCLIDINE Negative Normal NEG [facility] Comment on above: Result Comment: Phen cyclidine screening cut off value = 25 ng/mL Performed By: #### D GUILLEN #### [facility] ([id number]) [address], [address] [place] [address] Glucose Glucometer (BldC) [M ass/Vol]on 02-08-2024 Glucose [Mass/Vol] 107 mg/dL High 65-99 [facility] Lactate (P melvin) [Moles/Vol]o n 02-08-2024 LACTATE W/REFLEX 1.0 mmol/L Normal 0.4-2.0 [facility] Comment on above: Result Comment: Result did not trigger repeat Lactate, re-order if needed. Performed By: #### 7 5241-0, 74771-1 #### [facility] ([id number]) [address], [address] [place] [address] LACTATE W/REFLEX 0.8 mmol/L Normal 0.4-2.0 [facility] Comment on above: Result Comment: Result did not trigger repeat Lactate, re-order if needed. Performed By: #### 3 3-1, CMP, CBCA #### [facility] ([id number]) [address] [place] [address] Procalcitonin IA [Mass/Vol]o n 02-08-2024 PROCALCITONIN 0.74 ng/mL High <0.05 [facility] Comment on above: Result Comment: NOTE <0.50 ng/mL - Low risk of severe sepsis and/or septic shock. <2.00 ng/mL - Recommend retesting within 6-24 hours. >2.00 ng/mL - High risk of sepsis and/or septic shock. Performed By: #### 7 5241-0, 03749-2 #### [facility] ([id number]) [address], [address] [place] [address] URINALYSISon 02-08-2024 Bilirubin Ql (U) Negative Normal NEG [facility] Comment on above: Performed By: #### U A #### [facility] ([id number]) [address] [place] [address] BLOOD/HGB Small Abnormal NEG [facility] Comment on above: Performed By: #### U A #### [facility] ([id number]) [address] [place] [address] Color (U) YELLOW Normal YELLOW [facility] Comment on above: Performed By: #### U A #### [facility] ([id number]) [address], [address] [place] [address] Glucose Ql (U) Negative Normal NEG [facility] Comment on above: Performed By: #### U A #### [facility] ([id number]) [address] [place] [address] Ketones Ql (U) 20 mg/dL Abnormal NEG [facility] Comment on above: Performed By: #### U A #### [facility] ([id number]) [address] [place] [address] Leukocyte esterase Test strip Ql (U) Negative Normal NEG [facility] Comment on above: Performed By: #### U A #### [facility] ([id number]) [address] [place] [address] MUCOUS PRESENT Abnormal NONE [facility] Comment on above: Performed By: #### U A #### [facility] ([id number]) [address] [place] [address] Nitrite Ql (U) Negative Normal NEG [facility] Comment on above: Performed By: #### U A #### [facility] ([id number]) [address], [address] [place] [address] pH (U) 8.0 [pH] Normal 5.0-8.5 [facility] Comment on above: Performed By: #### U A #### [facility] ([id number]) [address] [place] [address] Protein Ql (U) Trace Abnormal NEG [facility] Comment on above: Performed By: #### U A #### [facility] ([id number]) [address] [place] [address] R.B.CELLS 16 /hpf High 0-5 [facility] Comment on above: Performed By: #### U A #### [facility] ([id number]) [address] [place] [address] Specific gravity (U) [Rel density] 1.012 Normal 1.003-1.035 [facility] Comment on above: Performed By: #### U A #### [facility] ([id number]) [address], [address] [place] [address] SQUAMOUS EPITHELIUM 1 /hpf Normal 0-5 [facility] Comment on above: Performed By: #### U A #### [facility] ([id number]) [address], [address] [place] [address] TRANSITIONAL EPITH <1 High 0 [facility] Comment on above: Performed By: #### U A #### [facility] ([id number]) [address] [place] [address] TURBIDITY CLEAR Normal CLEAR [facility] Comment on above: Performed By: #### U A #### [facility] ([id number]) [address] [place] [address] Urobilinogen Qn (U) 2 {Blanca'U}/dL High <1.1 [facility] Comment on above: Performed By: #### U A #### [facility] ([id number]) [address], [address] [place] [address] W.B.CELLS 2 /hpf Normal 0-5 [facility] Comment on above: Performed By: #### U A #### [facility] ([id number]) [address] [place] [address] URINE CULTUREon 02-08-2024 Bacteria identified Cx Nom (U) CULTURE RESULTS NO GROWTH AT <1000 CFU/mL Normal [facility] Comment on above: Performed By: #### 3 2133-1, CMP, CBCA #### [facility] ([id number]) [address] [place] [address] XR CHEST 1 VWon 02-08-2024 XR CHEST [...] Rubi MD on 02/08/2024 9:35 AM Normal [facility] URETHRITIS/DISCHARGE PLUS VA GINITIS (HTRX)on 01-27-2024 ATOPOBIUM VAGINAE 0.000 [facility] ATOPOBIUM VAGINAE Not detected [facility] BVAB 2,3 (BACTERIAL VAGINOSIS ASSOCIATED BACTERIA 2, 3); MOBILUNCUS SPP 0.000 [facility] BVAB 2,3 (BACTERIAL VAGINOSIS ASSOCIATED [...] [facility] MEGASPHAERA (TYPES 1, 2) 0.000 [facility] MEGASPHAERA (TYPES 1, 2) Not detected [facility] MYCOPLASMA GENITALIUM 0.000 [facility] MYCOPLASMA GENITALIUM Not detected N [facility] NEISSERIA GONORRHOEAE 0.000 [facility] NEISSERIA GONORRHOEAE Not detected N [facility] TRICHOMONAS VAGINALIS 0.000 [facility] TRICHOMONAS VAGINALIS Not detected N [facility] AFP, SERUM, OPEN SPINA BIFID Aon 01-26-2024 AFP MOM 1.08 . [facility] AFP VALUE 35.9 ng/mL . [facility] COMMENT: Comment . [facility] e Comment on above: Nette Holley , Ph.D., [facility] Director References: Available Upon Request. Multiples Of Median Cutoffs For AFP Elevations Rao 2.5 Black 2.8 IDD 2.0 Twins 4.5 Abbreviation Definitions IDD - Insulin Dep Diabetes OSBR - Open Spina Bifida Risk For further inquiries contact [employer] [facility] at [phone]. This test was developed and its performance characteristics determined by [facility]. It has not been cleared or approved by the Food and Drug Administration. Performed at: [facility] [address] [place] [phone] Speech And Language Specialist: Ashley Duggan [facility], Phone: [phone] GEST. AGE ON COLLECTION DATE 17.9 . weeks [facility] GESTAT. AGE BASED ON As provided . [facility] Comment on above: Recalculations are n ot recommended when gestational dating by LMP and ultrasound are within 10 days. INSULIN DEP DIABETES No . [facility] INTERPRETATION [facility] . [facility] on [facility]: Interpretation: Scre [...] Customer Services to discuss available options. The [employer] recommends amniocentesis be offered to women age 35 and older. [age] [facility] MULTIPLE GESTATION No . [facility] H ealthcare OSBR RISK 1 [place] [phone] . [facility] Healt hcare RACE Other . [facility] Healthcar e RESULTS Report . [facility] TEST RESULTS: Negative . [facility] Health care WEIGHT 225 . lbs [facility] Healthcar e PREGNANY N N ULTRASOUND [phone] N 1 Y 225 N N N N N White/ [facility] Healthcar e Urinalysis macro (dipstick) panel (U)on 01-24-2024 Bilirubin, UA Negative Negative - 4(70) +++ mg/dL [facility] Blood, UA Negative Negative - 50 Slick/mcL [facility] Clarity, UA Clear [facility] Healthca re Color, UA Yellow [facility] Healthcar e Glucose, UA Negative Negative - 1999(110) ++++ mg/dL [facility] Interpretation and review of laboratory results Abnormal [facility] Ketones, UA Negative Negative - 160(16) ++++ mg/dL [facility] Leukocytes, UA Trace Negative - 500+++ Mira/mcL [facility] Nitrite, UA Negative Negative - Positive [facility] pH, UA 6.5 5 - 9 [facility] Healthcar e Protein, UA Negative Negative - 1999(20) ++++ mg/dL [facility] Spec Grav, UA 1.020 1 - 1.03 [facility] Urobilinogen, UA 1.0 0.2 - 12 mg/dL [facility] Urinalysis macro (dipstick) panel (U)on 01-03-2024 Bilirubin, UA Negative Negative - 4(70) +++ mg/dL [facility] Blood, UA Positive Negative - 50 Slick/mcL [facility] Healthcare Comment on above: trace Clarity, UA Clear [facility] Healthca re Color, UA Yellow [facility] Healthcar e Glucose, UA Negative Negative - 1999(110) ++++ mg/dL [facility] Interpretation and review of laboratory results Abnormal [facility] Ketones, UA Negative Negative - 160(16) ++++ mg/dL [facility] Leukocytes, UA Positive Negative - 500+++ Mira/mcL [facility] Healthcare Comment on above: small Nitrite, UA Negative Negative - Positive [facility] pH, UA 6.0 5 - 9 [facility] Protein, UA Negative Negative - 1999(20) ++++ mg/dL [facility] Spec Grav, UA 1.020 1 - 1.03 [facility] care Urobilinogen, UA 0.2 0.2 - 12 mg/dL [facility] Healthcar e No Panel InformationOrdered By: Sanaz Lockwood on 08-18-2023 Quick Strep (POC) [facility] COVID + FLU Quick Testingon 04-27-2023 SARS-CoV-2 (COVID-19) RNA J LUIS+probe Ql (Unsp spec) Negative [facility] [employer] Other COVID + FLU Quick Testing Negative [facility] Other Quick Strepon 04-27-2023 S. pyogenes Org specific cx Ql (Throat) Negative [facility] Other Quick Strep [facility] [employer] Other COVID/FLU/RSV RT-PCRon 05-10 SARS-CoV-2 (COVID-19) RNA J LUIS+probe Ql (Unsp spec) Negative [facility] Other COVID/FLU/RSV RT-PCR Positive [employer] Other COVID/FLU/RSV RT-PCR Negative [employer] Other CBC AUTO DIFFon 04-27-2022 BASO # 0.0 103/ul Normal 0.0-0.1 [facility] Comment on above: Performed By: #### C BC #### [facility] [address] [place] [address] Dr. Dee Humphrey Basophils/100 WBC (Bld) 0.2 % Normal 0.2-2.0 [facility] Comment on above: Performed By: #### C BC #### [facility] [address] [place] [address] Dr. Dee Humphrey EO # 0.1 103/ul Normal 0.0-0.7 [facility] Comment on above: Performed By: #### C BC #### [facility] [address] [place] [address] Dr. Dee Humphrey Eosinophils/100 WBC (Bld) 0.6 % Critically low 0.9-7.0 [facility] Comment on above: Performed By: #### C BC #### [facility] [address] [place] [address] Dr. Dee Humphrey Erythrocyte distribution width (RBC) [Ratio] 14.1 % Normal 11.0-15.0 [facility] Comment on above: Performed By: #### C BC #### [facility] [address] [place] [address] Dr. Dee Humphrey Hematocrit (Bld) [Volume fraction] 37.1 % Normal 36.0-48.0 [facility] Comment on above: Performed By: #### C BC #### [facility] [address] [place] [address] Dr. Dee Humphrey Hemoglobin (Bld) [Mass/Vol] 12.4 g/dL Normal 12.0-16.0 [facility] Comment on above: Performed By: #### C BC #### [facility] [address] [place] [address] Dr. Dee Humphrey IG # 0.06 10e3/ul Critically high 0.00-0.03 [facility] Comment on above: Performed By: #### C BC #### [facility] [address] [place] [address] Dr. Dee Humphrey IG % 0.5 % Normal 0.0-0.5 [facility] Comment on above: Performed By: #### C BC #### [facility] [address] [place] [address] Dr. Dee Humphrey LYMPH # 3.7 103/ul Normal 1.2-3.8 [facility] Comment on above: Performed By: #### C BC #### [facility] [address] [place] [address] Dr. Dee Humphrey Lymphocytes/100 WBC (Bld) 28.7 % Normal 20.5-60.0 [facility] Comment on above: Performed By: #### C BC #### [facility] [address] [place] [address] Dr. Dee Humphrey MANUAL DIFF REQ NO Normal [facility] Comment on above: Performed By: #### C BC #### [facility] [address] [address] [address] Dee Humphrey MCH (RBC) [Entitic mass] 30.2 pg Normal 26.7-34.0 [facility] Comment on above: Performed By: #### C BC #### [facility] [address] [address] [address] Dee Humphrey MCHC (RBC) [Mass/Vol] 33.4 g/dL Normal 29.9-35.2 [facility] Comment on above: Performed By: #### C BC #### [facility] [address] [place] [address] Dr. Dee Humphrey MCV (RBC) [Entitic vol] 90.5 fL Normal 81.0-99.0 [facility] Comment on above: Performed By: #### C BC #### [facility] [address] [place] [address] Dr. Dee Humphrey MONO # 0.7 103/ul Normal 0.3-0.8 [facility] Comment on above: Performed By: #### C BC #### [facility] [address] [place] [address] Dr. Dee Humphrey Monocytes/100 WBC (Bld) 5.0 % Normal 1.7-12.0 [facility] Comment on above: Performed By: #### C BC #### [facility] [address] [place] [address] Dr. Dee Humphrey NEUT # 8.5 103/ul Critically high 1.4-6.[address] [facility] Comment on above: Performed By: #### C BC #### [facility] [address] [place] [address] Dr. Dee Humphrey Neutrophils/100 WBC (Bld) 65.0 % Normal 43.0-75.0 [facility] Comment on above: Performed By: #### C BC #### [facility] [address] [place] [address] Dr. Dee Humphrey Platelet mean volume (Bld) [Entitic vol] 9.6 fL Normal 9.5-13.5 [facility] Comment on above: Performed By: #### C BC #### [facility] [address] [place], [place] [address] Dr. Dee Humphrey PLT 317 103/ul Normal 150-450 [facility] Comment on above: Performed By: #### C BC #### [facility] [address] [place], [place] [address] Dr. Dee Humphrey RBC 4.10 106/ul Critically low 4.20-5.[address] [facility] Comment on above: Performed By: #### C BC #### [facility] [address] [place], [place] [address] Dr. Dee Humphrey WBC 13.1 103/ul Critically high 4.0-11.0 [facility] Comment on above: Performed By: #### C BC #### [facility] [address] [place], [place] [address] [address] ABD/PELVIS WO CONon [...] ROCIO CHAU Date: 2022-04-27 20:24 Normal [facility] URINE PROFILEon 2 Bilirubin Ql (U) Negative Normal NEGATIVE [facility] Comment on above: Performed By: #### P REGU, ERUR #### [facility] [address] [place] [address] Dr. Dee Humphrey Clarity (U) CLEAR Normal CLEAR [facility] Comment on above: Performed By: #### P REGU, ERUR #### [facility] [address] [place] [address] Dr. Dee Humphrey Color (U) YELLOW Normal YELLOW [facility] Comment on above: Performed By: #### P REGU, ERUR #### [facility] [address] [place] [address] Dr. Dee STANFORD A micrscopic examination will be performed if indicated. Normal [facility] Comment on above: Performed By: #### P REGU, ERUR #### [facility] [address] [place] [address] Dr. Dee Humphrey Glucose Ql (U) Negative Normal NEGATIVE [facility] Comment on above: Performed By: #### P REGU, ERUR #### [facility] [address] [place] [address] Dr. Dee Humphrey Hemoglobin Ql (U) Negative Normal NEGATIVE [facility] Comment on above: Performed By: #### P REGU, ERUR #### [facility] [address] [place] [address] Dr. Dee Humphrey Ketones Ql (U) Negative Normal NEGATIVE [facility] Comment on above: Performed By: #### P REGU, ERUR #### [facility] [address] [place] [address] Dr. Dee Humphrey LEUKOCYTES Negative Normal NEGATIVE [facility] Comment on above: Performed By: #### P REGU, ERUR #### [facility] [address] [place] [address] Dr. Dee Humphrey Nitrite Ql (U) Negative Normal NEGATIVE [facility] Comment on above: Performed By: #### P REGU, ERUR #### [facility] [address] [address] [address] Dee Humphrey pH (U) 5.5 [pH] Normal 5-9 [facility] Comment on above: Performed By: #### P REGU, ERUR #### [facility] [address] [address] [address] Dee Humphrey SPEC GRAVITY >=1.030 Abnormal 1.005-<=1.[address] [place] [address] Comment on above: Performed By: #### P REGU, ERUR #### [facility] [address] [address] [address] Dee Humphrey UA PROTEIN Negative Normal NEGATIVE/ TRACE [facility] Comment on above: Performed By: #### P REGU, ERUR #### [facility] [address] [place] [address] Dr. Dee Humphrey UR MICRO IND NOT INDICATED Normal [facility] Comment on above: Performed By: #### P REGU, ERUR #### [facility] [address] [address] [address] Dee Humphrey Urobilinogen Qn (U) 0.2 {Blanca'U}/dL Normal 0.2 - 1. 0 [facility] Comment on above: Performed By: #### P REGU, ERUR #### [facility] [address] [address] [address] Dee Humphrey LIPASEon 04-27-2022 Lipase [Catalytic activity/Vol] 94.0 U/L Normal 73.0-393.0 [facility] Comment on above: Performed By: #### L IPA, CMP #### [facility] [address] [address] [address] Dee Humphrey URon 04-27-2022 , QUAL Negative Normal NEGATIVE [facility] Comment on above: Performed By: #### P REGU, ERUR #### [facility] [address] [place] [address] Dr. Dee Humphrey PROF 14(COMP METB)on 12-28-2 022 Albumin [Mass/Vol] 3.9 g/dL Normal 3.4-5.0 [facility] Comment on above: Performed By: #### L IPA, CMP #### [facility] [address] [place] [address] Dr. Dee Humphrey Albumin/Globulin [Mass ratio] 1.0 {ratio} Normal [facility] Comment on above: Performed By: #### L IPA, CMP #### [facility] [address] [address] [address] Dee Humphrey ALP [Catalytic activity/Vol] 87 U/L Normal 46-116 [facility] Comment on above: Performed By: #### L IPA, CMP #### [facility] [address] [place] [address] Dr. Dee Humphrey ALT [Catalytic activity/Vol] 31 U/L Normal 14-59 [facility] Comment on above: Performed By: #### L IPA, CMP #### [facility] [address] [place] [address] Dr. Dee Humphrey Anion gap [Moles/Vol] 10.8 mmol/L Normal [facility] Comment on above: Performed By: #### L IPA, CMP #### [facility] [address] [place] [address] Dr. Dee Humphrey AST [Catalytic activity/Vol] 17 U/L Normal 15-37 [facility] Comment on above: Performed By: #### L IPA, CMP #### [facility] [address] [place] [address] Dr. Dee Humphrey Bilirubin [Mass/Vol] 0.1 mg/dL Critically low 0.2-1.0 [facility] Comment on above: Performed By: #### L IPA, CMP #### [facility] [address] [address] [address] Dee Humphrey Calcium [Mass/Vol] 8.9 mg/dL Normal 8.5-10.1 [facility] Comment on above: Performed By: #### L IPA, CMP #### [facility] [address] [address] [address] Dee Humphrey Chloride [Moles/Vol] 103 mmol/L Normal 98-107 [facility] Comment on above: Performed By: #### L IPA, CMP #### [facility] [address] [place] [address] Dr. Dee Humphrey CO2 [Moles/Vol] 26.9 mmol/L Normal 21.0-32.0 [facility] Comment on above: Performed By: #### L IPA, CMP #### [facility] [address] [address] [address] Dee Humphrey Creatinine [Mass/Vol] 0.80 mg/dL Normal 0.55-1.02 [facility] Comment on above: Performed By: #### L IPA, CMP #### [facility] [address] [place] [address] Dr. Dee Humphrey EGFR-AF RUSSIAN >60 Normal >=60 [facility] Comment on above: Performed By: #### L IPA, CMP #### [facility] [address] [place] [address] Dr. Dee Humphrey EGFR-NON AF RUSSIAN >60 Normal >=60 [facility] Comment on above: Performed By: #### L IPA, CMP #### [facility] [address] [place] [address] Dr. Dee Humphrey Globulin (S) [Mass/Vol] 3.9 g/dL Normal [facility] Comment on above: Performed By: #### L IPA, CMP #### [facility] [address] [place] [address] Dr. Dee Humphrey Glucose [Mass/Vol] 96 mg/dL Normal 74-106 [facility] Comment on above: Performed By: #### L IPA, CMP #### [facility] [address] [address] [address] Dee Humphrey Potassium [Moles/Vol] 3.7 mmol/L Normal 3.5-5.1 [facility] Comment on above: Performed By: #### L IPA, CMP #### [facility] [address] [place] [address] Dr. Dee Humphrey Protein [Mass/Vol] 7.8 g/dL Normal 6.4-8.2 [facility] Comment on above: Performed By: #### L IPA, CMP #### [facility] [address] [place] [address] Dr. Dee Humphrey Sodium [Moles/Vol] 137 mmol/L Normal 136-145 [facility] Comment on above: Performed By: #### L IPA, CMP #### [facility] [address] [place] [address] Dr. Dee Humphrey Urea nitrogen [Mass/Vol] 13.0 mg/dL Normal 7.0-18.0 [facility] Comment on above: Performed By: #### L IPA, CMP #### [facility] [address] [place] [address] Dr. Dee Humphrey Urea nitrogen/Creatinine [Mass ratio] 16.2 mg/mg Normal [facility] Comment on above: Performed By: #### L IPA, CMP #### [facility] [address] [place] [address] Dr. Dee Humphrey CBC AUTO DIFFon 03-07-2022 BASO # 0.0 103/ul Normal 0.0-0.1 [facility] Comment on above: Performed By: #### C BC #### [facility] [address] [place] [address] Dr. Dee Humphrey Basophils/100 WBC (Bld) 0.3 % Normal 0.2-2.0 [facility] Comment on above: Performed By: #### C BC #### [facility] [address] [place] [address] Dr. Dee Humphrey EO # 0.1 103/ul Normal 0.0-0.7 [facility] Comment on above: Performed By: #### C BC #### [facility] [address] [place] [address] Dr. Dee Humphrey Eosinophils/100 WBC (Bld) 0.7 % Critically low 0.9-7.0 [facility] Comment on above: Performed By: #### C BC #### [facility] [address] [place] [address] Dr. Dee Humphrey Erythrocyte distribution width (RBC) [Ratio] 13.0 % Normal 11.0-15.0 [facility] Comment on above: Performed By: #### C BC #### [facility] [address] [place] [address] Dr. Dee Humphrey Hematocrit (Bld) [Volume fraction] 39.2 % Normal 36.0-48.0 [facility] Comment on above: Performed By: #### C BC #### [facility] [address] [place] [address] Dr. Dee Humphrey Hemoglobin (Bld) [Mass/Vol] 13.2 g/dL Normal 12.0-16.0 [facility] Comment on above: Performed By: #### C BC #### [facility] [address] [place] [address] Dr. Dee Humphrey IG # 0.05 10e3/ul Critically high 0.00-0.03 [facility] Comment on above: Performed By: #### C BC #### [facility] [address] [place] [address] Dr. Dee Humphrey IG % 0.5 % Normal 0.0-0.5 [facility] Comment on above: Performed By: #### C BC #### [facility] [address] [place] [address] Dr. Dee Humphrey LYMPH # 4.2 103/ul Critically high 1.2-3.[address] [facility] Comment on above: Performed By: #### C BC #### [facility] [address] [place] [address] Dr. Dee Humphrey Lymphocytes/100 WBC (Bld) 43.1 % Normal 20.5-60.0 [facility] Comment on above: Performed By: #### C BC #### [facility] [address] [place] [address] Dr. Dee Humphrey MANUAL DIFF REQ NO Normal [facility] Comment on above: Performed By: #### C BC #### [facility] [address] [place] [address] Dr. Dee Humphrey MCH (RBC) [Entitic mass] 30.5 pg Normal 26.7-34.0 [facility] Comment on above: Performed By: #### C BC #### [facility] [address] [address] [address] Dee Humphrey MCHC (RBC) [Mass/Vol] 33.7 g/dL Normal 29.9-35.2 [facility] Comment on above: Performed By: #### C BC #### [facility] [address] [place] [address] Dr. Dee Humphrey MCV (RBC) [Entitic vol] 90.5 fL Normal 81.0-99.0 [facility] Comment on above: Performed By: #### C BC #### [facility] [address] [place] [address] Dr. Dee Humphrey MONO # 0.4 103/ul Normal 0.3-0.8 [facility] Comment on above: Performed By: #### C BC #### [facility] [address] [place] [address] Dr. Dee Humphrey Monocytes/100 WBC (Bld) 4.4 % Normal 1.7-12.0 [facility] Comment on above: Performed By: #### C BC #### [facility] [address] [place] [address] Dr. Dee Humphrey NEUT # 4.9 103/ul Normal 1.4-6.5 [facility] Comment on above: Performed By: #### C BC #### [facility] [address] [place] [address] Dr. Dee Humphrey Neutrophils/100 WBC (Bld) 51.0 % Normal 43.0-75.0 [facility] Comment on above: Performed By: #### C BC #### [facility] [address] [place] [address] Dr. Dee Humphrey Platelet mean volume (Bld) [Entitic vol] 9.6 fL Normal 9.5-13.5 [facility] Comment on above: Performed By: #### C BC #### [facility] [address] [place] [address] Dr. Dee Humphrey PLT 364 103/ul Normal 150-450 [facility] Comment on above: Performed By: #### C BC #### [facility] [address] [place] [address] Dr. Dee Humphrey RBC 4.33 106/ul Normal 4.20-5.40 [facility] Comment on above: Performed By: #### C BC #### [facility] [address] [place] [address] Dr. Dee Humphrey WBC 9.7 103/ul Normal 4.0-11.0 [facility] Comment on above: Performed By: #### C BC #### [facility] [address] [place] [address] Dr. Dee Humphrey LACTATE/LACTIC ACIDon 2021 Lactate [Moles/Vol] 1.1 mmol/L Normal 0.4-1.9 [facility] Comment on above: Performed By: #### P REGU, ERUR #### [facility] [address] [place] [address] Dr. Dee Humphrey LIPASEon 03-07-2022 Lipase [Catalytic activity/Vol] 79.0 U/L Normal 73.0-393.0 [facility] Comment on above: Performed By: #### C MP, LIPA #### [facility] [address] [place] [address] Dr. Dee Humphrey PROF 14(COMP METB)on 022 Albumin [Mass/Vol] 3.8 g/dL Normal 3.4-5.0 [facility] Comment on above: Performed By: #### C MP, LIPA #### [facility] [address] [place] [address] Dr. Dee Humphrey Albumin/Globulin [Mass ratio] 0.9 {ratio} Normal [facility] Comment on above: Performed By: #### C MP, LIPA #### [facility] [address] [place] [address] Dr. Dee Humphrey ALP [Catalytic activity/Vol] 80 U/L Normal 46-116 [facility] Comment on above: Performed By: #### C MP, LIPA #### [facility] [address] [address] [address] Dee Humphrey ALT [Catalytic activity/Vol] 27 U/L Normal 14-59 [facility] Comment on above: Performed By: #### C MP, LIPA #### [facility] [address] [place] [address] Dr. Dee Humphrey Anion gap [Moles/Vol] 9.5 mmol/L Normal [facility] Comment on above: Performed By: #### C MP, LIPA #### [facility] [address] [place] [address] Dr. Dee Humphrey AST [Catalytic activity/Vol] 13 U/L Critically low 15-37 [facility] Comment on above: Performed By: #### C MP, LIPA #### [facility] [address] [place] [address] Dr. Dee Humphrey Bilirubin [Mass/Vol] 0.1 mg/dL Critically low 0.2-1.0 [facility] Comment on above: Performed By: #### C MP, LIPA #### [facility] [address] [place] [address] Dr. Dee Humphrey Calcium [Mass/Vol] 9.0 mg/dL Normal 8.5-10.1 [facility] Comment on above: Performed By: #### C MP, LIPA #### [facility] [address] [place] [address] Dr. Dee Humphrey Chloride [Moles/Vol] 103 mmol/L Normal 98-107 [facility] Comment on above: Performed By: #### C MP, LIPA #### [facility] [address] [place] [address] Dr. Dee Humphrey CO2 [Moles/Vol] 27.1 mmol/L Normal 21.0-32.0 [facility] Comment on above: Performed By: #### C MP, LIPA #### [facility] [address] [place] [address] Dr. Dee Humphrey Creatinine [Mass/Vol] 0.86 mg/dL Normal 0.55-1.02 [facility] Comment on above: Performed By: #### C MP, LIPA #### [facility] [address] [address] [address] Dee Humphrey EGFR-AF RUSSIAN >60 Normal >=60 [facility] Comment on above: Performed By: #### C MP, LIPA #### [facility] [address] [address] [address] Dee Humphrey EGFR-NON AF RUSSIAN >60 Normal >=60 [facility] Comment on above: Performed By: #### C MP, LIPA #### [facility] [address] [address] [address] Dee Humphrey Globulin (S) [Mass/Vol] 4.1 g/dL Normal [facility] Comment on above: Performed By: #### C MP, LIPA #### [facility] [address] [address] [address] Dee Humphrey Glucose [Mass/Vol] 99 mg/dL Normal 74-106 [facility] Comment on above: Performed By: #### C MP, LIPA #### [facility] [address] [address] [address] Dee Humphrey Potassium [Moles/Vol] 3.6 mmol/L Normal 3.5-5.1 [facility] Comment on above: Performed By: #### C MP, LIPA #### [facility] [address] [address] [address] Dee Humphrey Protein [Mass/Vol] 7.9 g/dL Normal 6.4-8.2 [facility] Comment on above: Performed By: #### C MP, LIPA #### [facility] [address] [address] [address] Dee Humphrey Sodium [Moles/Vol] 136 mmol/L Normal 136-145 [facility] Comment on above: Performed By: #### C MP, LIPA #### [facility] [address] [address] [address] Dee Humphrey Urea nitrogen [Mass/Vol] 12.0 mg/dL Normal 7.0-18.0 [facility] Comment on above: Performed By: #### C MP, LIPA #### [facility] [address] [place], [place] [address] Dr. Dee Humphrey Urea nitrogen/Creatinine [Mass ratio] 14.0 mg/mg Normal [facility] Comment on above: Performed By: #### C YONIS RODRIGUEZ #### [facility] [address] [place], [place] [address] Dr. Dee Humphrey Consent for COVID Vaccineon 08-09-2020 SARS-CoV-2 (COVID-19) RNA J LUIS+probe Ql (Unsp spec) [id number]:127 Normal [facility] Consent for Treatmenton 07-30 Consent for Treatment [id number]:127 Normal [facility] Coding Summary.on 08-07-2020 Coding Summary. CODING DATE: 08/07/[address] [facility] STATUS: PAYOR: Luzma APC DESCRIPTION [id number] [...] Date Saved: 08/07/2020 02:46 pm [facility] Ambulatory Clinical Summaryo n 03-25-2020 Ambulatory Clinical Summary {[id number] [facility] Patient Educationon 03-19-20 Patient Education lurasidone [...] agitate (more content not included)... Normal [facility] Video Visit - Telehealtho n 02-23-2020 [...] interactive video communications from my office using Versart[employer] due to the restrictions of the COVID-19 pandemic. No physical exam was conducted other than those areas of the body visible to telecommunications with the patient located at [address] [place] [phone], with no one else in attendance. If [...] Stopped age (more content not included)... Normal [facility] Comment on above: Result Comment: Elec tronically Signed By: Deepa [facility], Maia Montero.mati\Date and Time Signed: 02/22/20 [...] interactive video communications from my office using IntelliFlo due to the restrictions of the COVID-19 pandemic. No physical exam was conducted other than those areas of the body visible to telecommunications with the patient located at [address] [place] [phone], with no one else in attendance. If [...] Sister. Depres (more content not included)... Normal [facility] Comment on above: Result Comment: Elec tronically Signed By: Deepa [facility], Maia Montero.mati\Date and Time Signed: 02/11/20 14:46 [...] interactive video communications from my office using Intelli[employer] due to the restrictions of the COVID-19 pandemic. No physical exam was conducted other than those areas of the body visible to telecommunications with the patient located at [address] [place] [address], with no one else in attendance. If [...] - Denies (more content not included)... Normal [facility] Comment on above: Result Comment: Elec tronically Signed By: Deepa [facility], Maia Montero.br\Date and Time Signed: 02/11/20 14:37 [...] interactive video communications from my office using IntelliF[employer] due to the restrictions of the COVID-19 pandemic. No physical exam was conducted other than those areas of the body visible to telecommunications with the patient located at [address] [place] [address], with no one else in attendance. If [...] Tobacco F (more content not included)... Normal [facility] Comment on above: Result Comment: Elec tronically Signed By: Deepa [facility], Maia Montero.br\Date and Time Signed: 01/29/20 [...] interactive video communications from my office using Intelli[employer] due to the restrictions of the COVID-19 pandemic. No physical exam was conducted other than those areas of the body visible to telecommunications with the patient located at [address] [place] [address], with no one else in attendance. If [...] Yes, 09 (more content not included)... Normal [facility] Comment on above: Result Comment: Elec tronically Signed By: Deepa [facility], Maia Ashley\.br\Date and Time Signed: 01/29/20 21:38 EDT Patient Educationon 01-28-20 Patient Education aripiprazole (KEMAR welsh) Say eLrma What is the most important information I [...] drow (more content not included)... Normal [facility] Video Visit - Telehealtho n 01-13-2020 [...] interactive video communications from my office using Intelli[employer] due to the restrictions of the COVID-19 pandemic. No physical exam was conducted other than those areas of the body visible to telecommunications with the patient located at [address] [place], [place] [phone], with no one else in attendance. If [...] Tobacco For (more content not included)... Normal [facility] Comment on above: Result Comment: Elec tronically Signed By: Deepa [facility], Maia Montero.mati\Date and Time Signed: 01/13/20 09:40 EDT Patient Educationon 01-13-20 Patient Education aripiprazole (KEMAR welsh) Say Lerma Discmelhaleigh What is the [...] drow (more content not included)... Normal [facility] Video Visit - Telehealtho n 01-07-2020 [...] interactive video communications from my office using IntelliF[employer] due to the restrictions of the COVID-19 pandemic. No physical exam was conducted other than those areas of the body visible to telecommunications with the patient located at [address] [place] [phone], with no one else in attendance. If [...] Use:. N (more content not included)... Normal [facility] Comment on above: Result Comment: Elec tronically Signed By: Deepa [facility], Maia Montero.mati\Date and Time Signed: 01/07/20 [...] interactive video communications from my office using Intelli[employer] due to the restrictions of the COVID-19 pandemic. No physical exam was conducted other than those areas of the body visible to telecommunications with the patient located at [address] [place] [phone], with no one else in attendance. If [...] Father and (more content not included)... Normal [facility] Comment on above: Result Comment: Elec tronically Signed By: [facility]\Date and Time Signed: 12/30/19 13:50 EDT [...] interactive video communications from my office using IntelliF[employer] due to the restrictions of the COVID-19 pandemic. No physical exam was conducted other than those areas of the body visible to telecommunications with the patient located at [address] [place] [address], with no one else in attendance. If [...] Alcohol U (more content not included)... Normal [facility] Comment on above: Result Comment: Elec tronically Signed By: Deepa [facility], Maia Montero.br\Date and Time Signed: 12/23/19 [...] drow (more content not included)... Normal [facility] Video Visit - Telehealtho n 12-04-2019 [...] interactive video communications from my office using [employer] due to the restrictions of the COVID-19 pandemic. No physical exam was conducted other than those areas of the body visible to telecommunications with the patient located at [address] [place], [place] [phone], with no one else in attendance. If [...] Daily, 5 (more content not included)... Normal [facility] Comment on above: Result Comment: Elec tronically Signed By: Deepa [facility], Maia Ashley\.br\Date and Time Signed: 12/04/19 [...] rate, h (more content not included)... Normal [facility] Vital Signs Date Time Vital Sign Value Performing Clinician Facility 05-29-2024 14:35-0500 Body mass index (BMI) [Ratio] 41.3 kg/m2 [employer] Work Phone: [facility] 05-29-2024 14:35-0500 Body weight 102.42 kg Johnathan Jorje [employer] Work Phone: [facility] 05-29-2024 14:35-0500 Diastolic blood pressure 82 mm[Hg] Johnathan Jorje DO Work Phone: [facility] 05-29-2024 14:35-0500 Systolic blood pressure 118 mm[Hg] Johnathan Jorje DO Work Phone: [facility] 05-22-2024 14:57-0500 Body mass index (BMI) [Ratio] 41.3 kg/m2 Johnathan Jorje DO Work Phone: [facility] 05-22-2024 14:57-0500 Body weight 102.42 kg Johnathan Jorje DO Work Phone: [facility] 05-22-2024 14:57-0500 Diastolic blood pressure 80 mm[Hg] Johnathan Jorje DO Work Phone: [facility] 05-22-2024 14:57-0500 Systolic blood pressure 110 mm[Hg] Johnathan Jorje DO Work Phone: [facility] 05-13-2024 15:04-0500 Body mass index (BMI) [Ratio] 41.67 kg/m2 Liza Kt PA Work Phone: [facility] 05-13-2024 15:04-0500 Body weight 103.33 kg Liza Kt PA Work Phone: [facility] 05-13-2024 15:04-0500 Diastolic blood pressure 82 mm[Hg] Liza [place] PA Work Phone: [facility] 05-13-2024 15:04-0500 Systolic blood pressure 140 mm[Hg] Liza [place] PA Work Phone: [facility] 04-03-2024 13:59-0500 Body mass index (BMI) [Ratio] 42.07 kg/m2 Johnathan Jorje DO Work Phone: [facility] 04-03-2024 13:59-0500 Body weight 104.33 kg Johnathan Jorje DO Work Phone: [facility] 04-03-2024 13:59-0500 Diastolic blood pressure 78 mm[Hg] Johnathan Jorje DO Work Phone: [facility] 04-03-2024 13:59-0500 Systolic blood pressure 110 mm[Hg] Johnathan Jorje DO Work Phone: [facility] 03-21-2024 14:01-0500 Body mass index (BMI) [Ratio] 41.7 kg/m2 Liza [place] PA Work Phone: [facility] 03-21-2024 14:01-0500 Body weight 103.42 kg Liza Kt PA Work Phone: [facility] 03-21-2024 14:01-0500 Diastolic blood pressure 72 mm[Hg] Liza Kt PA Work Phone: [facility] 03-21-2024 14:01-0500 Systolic blood pressure 112 mm[Hg] Liza Kt PA Work Phone: [facility] 03-11-2024 14:26-0500 Body mass index (BMI) [Ratio] 41.96 kg/m2 Liza [place] PA Work Phone: [facility] 03-11-2024 14:26-0500 Body weight 104.06 kg Liza [place] PA Work Phone: [facility] 03-11-2024 14:26-0500 Diastolic blood pressure 70 mm[Hg] Liza Kt PA Work Phone: [facility] 03-11-2024 14:26-0500 Systolic blood pressure 120 mm[Hg] Liza [place] PA Work Phone: [facility] 03-06-2024 11:20-0500 Body mass index (BMI) [Ratio] 41.34 kg/m2 Johnathan Jorje DO Work Phone: [facility] 03-06-2024 11:20-0500 Body weight 102.51 kg Jhonathan Jorje DO Work Phone: [facility] 03-06-2024 11:20-0500 Diastolic blood pressure 68 mm[Hg] Johnathan Jorje DO Work Phone: [facility] 03-06-2024 11:20-0500 Systolic blood pressure 120 mm[Hg] Johnathan Jorje DO Work Phone: [facility] 02-21-2024 13:57-0400 Body mass index (BMI) [Ratio] 41.3 kg/m2 Johnathan Jorje DO Work Phone: [facility] 02-21-2024 13:57-0400 Body weight 102.42 kg Johnathan Jorje DO Work Phone: [facility] 02-21-2024 13:57-0400 Diastolic blood pressure 70 mm[Hg] Johnathan Jorje DO Work Phone: [facility] 02-21-2024 13:57-0400 Systolic blood pressure 100 mm[Hg] Johnathan Jorje DO Work Phone: [facility] 02-15-2024 13:03-0400 Body height 160 cm Malena Cardona MD Work Phone: [facility] 02-15-2024 13:03-0400 Body mass index (BMI) [Ratio] 39.65 kg/m2 Malena Cardona MD Work Phone: [facility] 02-15-2024 13:03-0400 Body weight 101.52 kg Malena Cardona MD Work Phone: [facility] 02-15-2024 13:03-0400 Diastolic blood pressure 74 mm[Hg] Malena Cardona MD Work Phone: [facility] 02-15-2024 13:03-0400 Heart rate 94 /min Malena Cardona MD Work Phone: [facility] 02-15-2024 13:03-0400 Systolic blood pressure 123 mm[Hg] Malena Cardona MD Work Phone: [facility] 01-24-2024 11:57-0400 Body mass index (BMI) [Ratio] 41.15 kg/m2 Johnathan Jorje DO Work Phone: [facility] 01-24-2024 11:57-0400 Body weight 102.06 kg Johnathan Jorje DO Work Phone: [facility] 01-24-2024 11:57-0400 Diastolic blood pressure 78 mm[Hg] Johnathan Jorje DO Work Phone: [facility] 01-24-2024 11:57-0400 Systolic blood pressure 124 mm[Hg] Johnathan Jorje DO Work Phone: [facility] 01-03-2024 15:02-0400 Body mass index (BMI) [Ratio] 42.07 kg/m2 Liza ANTONIO Work Phone: [facility] 01-03-2024 15:02-0400 Body weight 104.33 kg Liza ANTONIO Work Phone: [facility] 01-03-2024 15:02-0400 Diastolic blood pressure 74 mm[Hg] Liza ANTONIO Work Phone: [facility] 01-03-2024 15:02-0400 Systolic blood pressure 122 mm[Hg] Liza ANTONIO Work Phone: [facility] 12-25-2023 11:22-0400 Body mass index (BMI) [Ratio] 40.79 kg/m2 Johnathan Jorje DO Work Phone: [facility] 12-25-2023 11:22-0400 Body weight 101.15 kg Johnathan Jorje DO Work Phone: [facility] 12-25-2023 11:22-0400 Diastolic blood pressure 76 mm[Hg] Johnathan Jorje DO Work Phone: [facility] 12-25-2023 11:22-0400 Systolic blood pressure 122 mm[Hg] Johnathan Jorje DO Work Phone: [facility] 08-18-2023 14:24-0400 Body height 160.02 cm [facility] 08-18-2023 14:24-0400 Body mass index (BMI) [Ratio] 40.2 kg/m2 [facility] 08-18-2023 14:24-0400 Body temperature 98.4 [degF] [facility] 08-18-2023 14:24-0400 Body weight 103.02 kg [facility] 08-18-2023 14:24-0400 Diastolic blood pressure 81 mm[Hg] [facility] 08-18-2023 14:24-0400 Heart rate 101 /min [facility] 08-18-2023 14:24-0400 Respiratory rate 16 /min [facility] 08-18-2023 14:24-0400 SaO2% (BldA) [Mass fraction] 98 % [facility] 08-18-2023 14:24-0400 Systolic blood pressure 133 mm[Hg] [facility] 04-27-2023 16:30-0500 Body height 160.02 cm Sanaz Lockwood Other [facility] Other 04-27-2023 16:30-0500 Body mass index (BMI) [Ratio] 40.92 kg/m2 Sanaz Lockwood Other [facility] Other 04-27-2023 16:30-0500 Body temperature 98.2 [degF] Sanaz Lockwood Other [facility] Other 04-27-2023 16:30-0500 Body weight 104.78 kg Sanaz Lockwood Other [facility] Other 04-27-2023 16:30-0500 Respiratory rate 18 /min Sanaz Lockwood Other [facility] Other 04-27-2023 16:30-0500 SaO2% (BldA) [Mass fraction] 99 % Sanaz Lockwood Other [facility] Other 05-10-2022 14:45-0500 Body height 160.02 cm Kaylah Han Other [facility] Other 05-10-2022 14:45-0500 Body mass index (BMI) [Ratio] 38.97 kg/m2 Kaylah Han Other [facility] Other 05-10-2022 14:45-0500 Body temperature 99.3 [degF] Kaylah Han Other [facility] Other 05-10-2022 14:45-0500 Body weight 99.79 kg Kaylah Han Other [facility] Other 06-29-2019 22:40-0500 Pulse (Heart Rate) 84 /min [facility] 06-29-2019 22:40-0500 Pulse Oximetry 97 % [facility] 06-29-2019 22:35-0500 BP Diastolic 56 mm[Hg] [facility] 06-29-2019 22:35-0500 BP Systolic 100 mm[Hg] [facility] 06-29-2019 21:11-0500 BMI (Body Mass Index) 33.1 kg/m2 [facility] 06-29-2019 21:11-0500 Body Temperature 97.8 [degF] [facility] 06-29-2019 21:11-0500 Body weight 84.8 kg [facility] 06-29-2019 21:11-0500 Height 160.02 cm [facility] 06-29-2019 21:11-0500 Respiratory Rate 20 /min [facility] Encounters Encounter Date Encounter Type Care Provider Facility Start: 05-29-2024 End: 05-29-2024 flow sheet Johnathan Recinos DO Work Phone: [facility] Comment on above: Third trimester preg kashmir; 36 weeks gestation of Start: 05-29-2024 End: 05-29-2024 Bamboo flowsheet Johnathan Jorje DO Work Phone: [facility] Start: 05-29-2024 End: 05-29-2024 Bamboo flowsheet Johnathan Jorje DO Work Phone: [facility] Start: 05-29-2024 End: 05-29-2024 Clinisync Result Encounter Johnathan Jorje DO Work Phone: [facility] External Department Unsolicited Start: 05-22-2024 End: 05-22-2024 ambulatory JOHNATHAN JORJE [...] Start: 04-22-2024 End: 04-22-2024 ambulatory Johnathan Jorje Facility:[facility] Start: 04-03-2024 End: 04-03-2024 Bamboo flowsheet Johnathan Jorje DO Work Phone: [facility] Start: 04-03-2024 End: 04-06-2024 Bamboo flowsheet Johnathan Jorje DO Work Phone: [facility] Start: 04-03-2024 End: 04-06-2024 External Result Encounter Johnathan Jorje DO Work Phone: [facility] Unsolicited Start: 04-03-2024 End: 04-03-2024 flow sheet Johnathan Jorje DO Work Phone: [facility] Comment on above: 28 weeks [...] flow sheet Liza ANTONIO Work Phone: [facility] Comment on above: Second trimester pre gnancy; 26 weeks gestation of ; Elevated glucose tolerance test; Gestational diabetes mellitus (GDM), antepartum, gestational diabetes method of control unspecified Start: 03-14-2024 End: 03-14-[address] [facility] Start: 03-11-2024 End: 03-11-2024 Bamboo flowsheet Liza ANTONIO Work Phone: [facility] Start: 03-11-2024 End: 03-11-2024 Bamboo flowsheet Liza ANTONIO Work Phone: [facility] Start: 03-11-2024 End: 03-11-2024 ambulatory LIZA DUQUE Not Available Start: 03-11-2024 End: 03-11-2024 flow sheet Liza ANTONIO Work Phone: [facility] Comment on above: 24 weeks gestation o f ; Second trimester ; Acute cystitis with hematuria Start: 03-06-2024 End: 03-06-2024 Clinisync Result Encounter Johnathan Jorje DO Work Phone: [facility] External Department Unsolicited Start: 03-06-2024 End: 03-06-2024 Clinisync Result Encounter Johnathan Jorje DO Work Phone: [facility] External Department Unsolicited Start: 03-06-2024 End: 03-06-2024 ambulatory JOHNATHAN JORJE Not Available Start: 03-06-2024 End: 03-06-2024 flow sheet Johnathan Jorje DO Work Phone: [facility] Comment on above: 24 weeks gestation o f ; Second trimester ; Flank pain; Acute cystitis with hematuria Start: 02-26-2024 End: 02-26-2024 ambulatory MARTIN [facility] Start: 02-21-2024 End: 02-21-2024 Bamboo flowsheet [...] Cardona MD Work Phone: [facility] Comment on above: 21 weeks gestation o f (Primary Dx); Multigravida of advanced maternal age in second trimester; Pyelonephritis affecting in second trimester; Bipolar disease during in second trimester ([facility]); Obesity affecting in second trimester, unspecified obesity type; BMI 39.0-39.9,adult; History of section complicating ; Vapes nicotine containing substance; Current rao with 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, antepartum; History of delivery, currently Start: 02-15-2024 End: 02-15-2024 Orders Only Flor Lopez RN [facility] Comment on above: 21 weeks gestation o f (Primary Dx); Obesity affecting in second trimester, unspecified obesity type Start: 02-15-2024 End: 02-15-2024 ambulatory JOHNATHAN R JORJE [facility] Start: 02-09-2024 End: 02-09-2024 Evaluation and management of inpatient TEJ ZENG [facility] Start: 02-08-2024 End: 02-09-2024 Evaluation and management of inpatient NATO LLOYD [facility] Start: 01-24-2024 End: 01-24-2024 Bamboo flowsheet Johnathan Jorje DO Work Phone: [facility] Start: 01-24-2024 End: 01-26-2024 Clinisync Result Encounter Johnathan Jorje DO Work Phone: [facility] External Department Unsolicited Start: 01-24-2024 End: 01-27-2024 External Result Encounter Johnathan Jojre DO Work Phone: [facility] External Department Unsolicited [...] 08-18-2023 ambulatory [facility] Work Phone: Start: 08-18-2023 End: 08-18-2023 Patient encounter procedure [facility] Physician [facility] Work Phone: Start: 04-27-2023 End: 04-27-2023 ambulatory Sanaz Lockwood Other [facility] Other Start: 04-27-2023 Office outpatient vi sit 25 minutes Sanaz Lockwood [facility] Start: 05-10-2022 End: 05-10-2022 ambulatory Kaylahpedrito Han Other [facility] Other Start: 05-10-2022 Office outpatient ne w 20 minutes Kaylahpedrito Han [facility] Start: 04-27-2022 End: 04-27-2022 ambulatory KIMBERLYN XIE Facility:[facility] Start: 03-07-2022 End: 03-07-2022 ambulatory KIMBERLYN XIE Facility:[facility] Start: 09-23-[address] JAZIEL HILL Facility :[facility] Start: 06-29-2019 End: 06-29-2019 Emergency department patient visit Kimberlyn Xie [facility] Procedures Date Procedure Procedure Detail Performing Clinician Start: 05-29-2024 ALL CBC WITH AUTO DIFF Johnathan Jorje DO Work Phone: Start: 05-29-2024 Urnls dip stick/tablet rgnt non-auto w/o micrscp Johnathan Jorje DO Work Phone: Start: 05-22-2024 Urnls dip stick/tablet rgnt non-auto w/o micrscp Johnathan Jorje DO Work Phone: Start: 05-13-2024 Urnls dip stick/tablet rgnt non-auto w/o micrscp Liza ANTONIO Work Phone: Start: 04-22-2024 TB UA (CLEAN/CATCH) ADVERTISING COORDINATOR/MICRO IF IND. Johnathan Jorje DO Work Phone: [...] Johnathan Jorje DO Work Phone: Start: 03-06-2024 TB UA (CLEAN/CATCH) ADVERTISING COORDINATOR/MICRO IF IND. Johnathan Jorje DO Work Phone: [...] [facility] Start: 02-14-2025 Adult BMI Screening [facility] Start: 02-14-2025 Tobacco Screening Tobacco [facility]ening [facility] Start: 02-14-2025 End: 02-14-2025 US MFM with or without consult US MFM with or without consult Imaging Routine 21 weeks gestation of Obesity affecting in second trimester, unspecified obesity type Expected: 02/14/2025 (Approximate), [facility] Comment on above: Expected: 02/14/2025 (Approximate), Expires: 02/14/2025 Start: 06-11-2024 End: 06-11-2024 Patient encounter procedure 06/11/2024 2:40 PM EST Office Visit [facility] [address] [place] [address] Liza Duque PA [address] [place], [place] [id number] [facility] Start: 05-29-2024 End: 05-29-2024 Patient encounter procedure 05/29/2024 2:20 PM EST Routine [facility] [address] [place] [address] Johnathan Recinos DO [address] [place], [place] [id number] [facility] Start: 05-29-2024 End: 05-29-2025 CULTURE, GROUP B STREP WITH SUSCEPTIBLITY CULTURE, GROUP B STREP WITH SUSCEPTIBLITY Lab Routine Third trimester Expected: 05/29/2024, Expires: 05/29/2025 [facility] Work Phone: Comment on above: Expected: 05/29/2024 , Expires: 05/29/2025 Start: 05-22-2024 End: 05-22-2024 Patient encounter procedure 05/22/2024 2:20 PM EST Routine [facility] [address] [place] [address] Johnathan Recinos, [address] [place] [address] [facility] Start: 05-13-2024 End: 05-13-2025 [...] EST Ancillary Procedure [facility] [address] [facility] [place] [address] [facility] Start: 04-03-2024 End: 04-03-2024 Patient encounter procedure [facility] Comment on above: Arrived Start: 04-03-2024 End: 04-03-2024 Professional / ancillary services management 04/03/2024 1:00 PM EST Ancillary Procedure [facility] [address] [place] [phone] [facility] Start: 03-21-2024 End: 03-21-2025 Measurement of glucose 3 hours after glucose challenge for glucose tolerance test Glucose tolerance, 3 hours Lab Routine Elevated glucose tolerance test Expected: 03/21/2024 (Approximate), Expires: 03/21/2025 [facility] Work Phone: Comment on above: Expected: 03/21/2024 (Approximate), Expires: 03/21/2025 Start: 03-21-2024 End: 03-21-2025 US for US OB SCAN FOR GROWTH Imaging Routine Gestational diabetes mellitus (GDM), antepartum, gestational diabetes method of control unspecified Expected: 03/21/2024 (Approximate), Expires: 03/21/2025 [facility] Comment on above: Expected: 03/21/2024 (Approximate), Expires: 03/21/2025 Start: 03-21-2024 End: 03-21-2024 Patient encounter procedure 03/21/2024 1:30 PM EST Routine [facility] [address] [place] [phone] Liza Duque PA [address] [place], [place] [id number] [facility] OB Start: 03-14-2024 End: 03-14-2024 Patient encounter procedure 03/14/2024 9:45 AM EST Appointment [facility] US Imaging [address] [place] [phone] [facility] US Imaging Start: 02-22-2024 End: 02-22-2024 Patient encounter procedure 02/22/2024 10:15 AM EDT Appointment [facility] [place] [address] [place] [address] [facility] [place] Start: 02-21-2024 End: 02-20-2025 CBC panel - Blood by Automated count CBC Lab Routine Diabetes mellitus screening Expected: 02/21/2024 (Approximate), Expires: 02/20/2025 [facility] Work Phone: Comment on above: Expected: 02/21/2024 (Approximate), Expires: 02/20/2025 Start: 02-21-2024 End: 02-20-2025 Measurement of glucose 1 hour after glucose challenge for glucose tolerance test Glucose tolerance, 1 hour Lab Routine Diabetes mellitus screening Expected: 02/21/2024 (Approximate), Expires: 02/20/2025 [facility] Comment on above: Expected: 02/21/2024 (Approximate), Expires: 02/20/2025 Start: 02-21-2024 End: 02-21-2024 Patient encounter procedure 02/21/2024 1:50 PM EDT Routine [facility] [address] [place] [address] Johnathan Recinos, DO [address] [place] [address] [facility] OB Start: 01-24-2024 End: 02-23-2024 Alpha fetoprotein, maternal Alpha fetoprotein, maternal Lab Routine 18 weeks gestation of Expected: 01/24/2024 (Approximate), Expires: 02/23/2024 [facility] Comment on above: Expected: 01/24/2024 (Approximate), Expires: 02/23/2024 Start: 01-22-2024 End: 01-22-2024 Patient encounter procedure 01/22/2024 10:20 AM EDT Routine [facility]CP OB [address] [facility] [place] [address] Johnathan Recinos, DO [address] [place] [address] [facility] OB Start: 12-31-2023 COVID-19 Vaccine ( season) COVID-19 Vaccine ( season) [facility] Start: 12-31-2023 Influenza vaccination [facility] Start: 10-11-2021 DTaP,Tdap and Td Vaccines (2 - Td or Tdap) DTaP,Tdap and Td Vaccines (2 - Td or Tdap) [facility] Start: 2017 Screening for malign ant neoplasm of cervix [facility] Start: 2008 Screening for malign ant neoplasm of cervix Pap Smear [facility] Start: 2005 Adult BMI Follow Up Plan Adult BMI Follow Up Plan [facility] Start: 1999 Depression Screening Depression Scre ening [facility] Bacteria identified in Urine by Culture Urine culture Microbiology Routine 24 weeks gestation of Second trimester Ordered: 03/06/2024 [facility] Work Phone: Comment on above: Ordered: 03/06/2024 Bacteria identified in Urine by Culture Urine culture Microbiology Routine Flank pain Acute cystitis with hematuria Urinary tract infection without hematuria, site unspecified Ordered: 04/03/2024 [facility] Work Phone: Comment on above: Ordered: 04/03/2024 CHLAMYDIA TRACHOMATI S (GENITO/STI) CHLAMYDIA TRACHOMATIS (GENITO/STI) Lab Routine Exposure to STD Ordered: 01/24/2024 [facility] Comment on above: Ordered: 01/24/2024 Cytology Cervical or vaginal smear or scraping study Pap Smear Pathology and Cytology Routine Well woman exam with routine gynecological exam Ordered: 01/24/2024 [facility] Comment on above: Ordered: 01/24/2024 Human papilloma viru s DNA [Presence] in Unspecified specimen by Probe with amplification HPV DNA probe, amplified Microbiology Routine Well woman exam with routine gynecological exam Ordered: 01/24/2024 [facility] Comment on above: Ordered: 01/24/2024 Neisseria gonorrhoea e DNA [Presence] in Unspecified specimen by J LUIS with probe detection Neisseria gonorrhea DNA probe, direct Lab Routine Exposure to STD Ordered: 01/24/2024 [facility] Comment on above: Ordered: 01/24/2024 Patient Education Epinephrine (B y injection) Anaphylaxis (ED) General Allergic Reaction (ED) [facility] Patient referral [facility] SURESWAB(R) ADVANCED VAGINITIS PLUS, TMA SURESWAB(R) ADVANCED VAGINITIS PLUS, TMA Pathology and Cytology Routine Vaginal discharge Ordered: 01/24/2024 [facility] Work Phone: Comment on above: Ordered: 01/24/2024 Immunizations Immunization Date Immunization Notes Care Provider Butch sims 06-02-2008 influenza virus vacc ine, unspecified formulation Johnathan Recinos DO Work Phone: [facility] Payers Date Payer Category Payer Self-pay [id number] 2024 [facility] [id number] 2024 Medicaid [id number] 2023 [facility] [id number] 2023 [facility] Managed Care - O ANTHEM [id number] 2023 Unknown BCBS BCBS [id number] 2023-Present [phone] [address] [place] [address] [id number] .[id number] 1987 Unknown [id number] 2.16.840.1.469869.3.579.2 .593 1987 Unknown [id number] 2.16.840.1.798003.3.579.2 .593 1987 Unknown [id number] 2.16.840.1.998476.3.579.2 .593 1987 Unknown [id number] 2.16.840.1.454890.3.579.2 .1286 1987 Unknown [id number] 2.16.840.1.328394.3.579.2 .1286 1987 Unknown [id number] 2.16.840.1.710365.3.579.2 .1286 1987 Unknown [id number] 2.16.840.1.673887.3.579.2 .1286 1987 Unknown [id number] 2.16.840.1.670248.3.579.2 .1286 1987 Unknown [id number] 2.16.840.1.325032.3.579.2 .1286 1987 Unknown [id number] 2.16.840.1.800184.3.579.2 .1259 1987 Unknown [id number] 2.16.840.1.154617.3.579.2 .1259 1987 Unknown [id number] 2.16.840.1.779444.3.579.2 .1259 1987 Unknown [id number] 2.16.840.1.892514.3.579.2 .9 1987 Unknown [id number] 2.16.840.1.419072.3.579.2 .9 1987 Unknown [id number] 2.16.840.1.551190.3.579.2 .1258 1987 Unknown [id number] 2.16.840.1.339237.3.579.2 .1258 1987 Unknown [id number] 2.16.840.1.245974.3.579.2 .1258 1987 Unknown [id number] 2.16.840.1.870231.3.579.2 .1258 1987 Unknown [id number] 2.16.840.1.751017.3.579.2 .1258 1987 Unknown [id number] 2.16.840.1.560178.3.579.2 .1258 1987 Unknown [id number] 2.16.840.1.254060.3.579.2 .9 1959 Self-pay [id number] 1959 Unknown [id number] Private Health Insurance [id number] Unknown [id number] 2.16.840.1.061089.3.579.2 .531 Social History Date Type Detail Facility Start: 06-29-2019 End: 08-18-2023 Tobacco smoking status [facility] Smoker (finding) [facility] Start: 1985 Sex Assigned At Female [facility] Start: 06-10-2020 End: 02-15-2024 Sex Assigned At [facility] [employer] Other Start: 02-15-2024 Tobacco smoking status [facility] Ex-smoker [facility] Start: 02-15-2024 Tobacco use and exposure Smokeless tobacco non-user [facility] Start: 02-15-2024 Alcoholic beverage intake Lifetime non-drinker (finding) [facility] Start: 06-10-2020 End: 02-15-2024 History of Social function [facility] Childcare Unknown [facility] Start: 02-15-2024 Tobacco Comment PT IS A VAPER [facility] tem Start: 10-03-2023 [facility] Start: 1987 Sex assigned at Not on file [facility] Start: 12-02-2014 Sex Female (finding) [facility] Start: 02-08-2024 Sexual orientation Heterosexual (finding) [facility] Start: 10-26-2023 Gender identity Identifies as female gender (finding) [facility] Medical Equipment Procedure Code Equipment Code Equipment Original Text Equipment Identifier Dates 1 strip by In Vi tro route Daily Use in the morning prior to breakfast, 1 hour after each meal for a total of 4times daily. [id number] Start: 03-25-2024 End: 04-24-2024 1 each by In Vit ro route Daily Use to check FSBS four times daily [id number] Start: 03-25-2024 End: 04-24-2024 Inject 1 each un vickie the skin See administration instructions Use four times daily with insulin pen. [id number] Start: 05-13-2024 End: 06-12-2024 Use as instructed [id number] Start: 05-22-2024 Goals Date Patient Goal Desired Activity /State Personal health goal Comment on above: Formatting of this n ote might be different from the original. Evaluation of progress towards goal: go home today Clinical Notes 12-02-2019 to 05-29-2024 Gayle Hendricks, HAY STACKER - 05/29/2024 2:20 PM Meghna Hendricks, H[employer] STACKER - 05/22/2024 2:20 PM Claude Guillermo, HAY STACKER - 05/13/2024 1:50 PM Meghna Hendricks, H[employer] STACKER - 04/03/2024 1:40 PM EST Note Date & Type Note Facility 05-29-2024 History of Present illness Narrative Reason for Appointment: Patient ID: Mikaela Ruiz is a 39 y.o. female who presents for Routine Visit Patient presents today for Return OB appointment. MEDICATIONS Current Outpatient Medications Medication Instructions Alcohol Swabs (Alcohol Prep Pad) 70 % pads 1 Pad, Topical, Daily, Use four times daily to check FSBS. aspirin 81 mg, Daily Blood Glucose Monitoring Suppl (D-LiveBid Glucometer) w/Device kit 1 kit, Does not apply, Daily, Use four times daily to check FSBS. In the morning prior to breakfast & 1 hour after each meal for a total of 4times daily. insulin NPH (Isophane) (HUMULIN N,NOVOLIN N) 10 Units, Subcutaneous, 2 times daily before meals insulin pen needle 29G x 8mm misc 1 each, Subcutaneous, See admin instructions, Use four times daily with insulin pen. insulin regular (HUMULIN R,NOVOLIN R) 5 Units, Subcutaneous, 2 times daily with meals insulin syringe 29G X 1/2 0.5 mL misc Use as instructed lamoTRIgine (LAMICTAL) 200 mg, Daily lurasidone (LATUDA) [...] Constitutional: Appearance: Normal appearance. She is well-developed. Genitourinary: Vulva normal. Cardiovascular: Rate and Rhythm: Normal rate and [...] nursing note reviewed. Exam conducted with a outpatient therapist present. Vitals: Estimated body mass index is 41.3 kg/m as calculated from the following: Height as of 03/18/22: 5' 2 . Weight as of this encounter: 225 lb 12.8 oz. BP: 118/82 Patient's last menstrual period was 09/12/2023. ASSESSMENT & PLAN ICD-10-CM 1. Third trimester Z34.93 POCT urinalysis dipstick manually resulted CULTURE, GROUP B STREP WITH SUSCEPTIBLITY CULTURE, GROUP B STREP WITH SUSCEPTIBLITY 2. 36 weeks gestation of Z3A.36 Patient is doing well but has complaints of being tired and having maternal discomfort due to . Patient verbalized frequent movement and was instructed to perform kick counts three times per day. labor precautions were given, LARC consent was signed/declined, and GBS was obtained. Pt does not feel well, headache floaters pt being sent to [facility]. Orders Placed This Encounter Procedures CULTURE, GROUP B STREP WITH SUSCEPTIBLITY POCT urinalysis dipstick manually resulted Follow Up: Patient is to return to office in 1 week for routine OB appointment Documented by Gayle Hendricks LPN on behalf of: Johnathan Recinos DO documented in this encounter [facility] 05-22-2024 History of Present illness Narrative Reason [...] nursing note reviewed. Exam conducted with a outpatient therapist present. Vitals: Estimated body mass index is [...] Johnathan Recinos DO documented in this encounter [facility] 05-13-2024 History of Present illness Narrative Reason [...] Medical History: Diagnosis Date Bipolar 1 disorder ([facility]) HISTORY PAST MEDICAL HISTORY SOCIAL HISTORY Past [...] nursing note reviewed. Exam conducted with a outpatient therapist present. Vitals: Estimated body mass index is [...] Johnathan Recinos DO documented in this encounter [facility] 04-03-2024 History of Present illness Narrative [...] Medical History: Diagnosis Date Bipolar 1 disorder ([facility]) HISTORY PAST MEDICAL HISTORY SOCIAL HISTORY Past Medical History: Diagnosis Date Bipolar 1 disorder ([facility]) Social History Tobacco Use Smoking status: Not [...] nursing note reviewed. Exam conducted with a outpatient therapist present. Vitals: Estimated body mass index is [...] Johnathan Recinos DO documented in this encounter [facility] 03-21-2024 History of Present illness Narrative [...] Medical History: Diagnosis Date Bipolar 1 disorder ([facility]) HISTORY PAST MEDICAL HISTORY SOCIAL HISTORY Past Medical History: Diagnosis Date Bipolar 1 disorder ([facility]) Social History Tobacco Use Smoking status: Not [...] hour glucose order to have done at [facility]. Patient DECLINES 3 hour gtt and would like to start testing FSBS--Patient will be referred to Diabetic Edu at [facility]. Follow Up: Patient is to return to office in 2 week for routine OB appointment. Documented by Nettie Frazier MA on behalf of: PACO Freed documented in this encounter [facility] 03-11-2024 History of Present illness Narrative [...] nursing note reviewed. Exam conducted with a outpatient therapist present. Vitals: Estimated body mass index is [...] of . Nursing will reach out to [facility] to inquire about culture results. Patient does have follow up appointment with [facility]aternal Medicine. Patient to return to clinic in 4 weeks for routine OB appointment. Documented by Barbara Guillermo LPN on behalf of: PACO Freed documented in this encounter [facility] 03-06-2024 History of Present illness Narrative [...] nursing note reviewed. Exam conducted with a outpatient therapist present. Vitals: Estimated body mass index is [...] Johnathan Recinos DO documented in this encounter [facility] 02-21-2024 History of Present illness Narrative [...] nursing note reviewed. Exam conducted with a outpatient therapist present. Vitals: Estimated body mass index is [...] Johnathan Recinos DO documented in this encounter [facility] 02-15-2024 History of Present illness Narrative [...] Medical History: Diagnosis Date Bipolar 1 disorder ([facility]) Depression PSHIST: Past Surgical History: Procedure Laterality [...] 4. Bipolar disease during in second trimester ([facility]) I reviewed with the patient that stability [...] of withdrawal and extrapyramidal effects on reviewed. Hand Sign Writer should be notified. Lack of controlled human [...] . For prevention of venous thromboembolism in [id number] groups, pharmacologic thromboprophylaxis should be considered in [...] prevention Cervical length at 22 weeks at [facility] Follow up survey scheduled Serial growth assessments every 4 weeks after the anatomy scan can be done at OB office. ventricles should be measured at each US. If >=10 mm or concern for hydrocephalus refer to M. If you would like [facility] to do the growth US [...] Malena Cardona MD, FACOG (she/hers) Maternal- [facility] [address] [place] [address] This document was created with [employer] technology. Though I make every effort to review the dictation as it is transcribed, on occasion the spoken word can be misinterpreted by the technology leading to inappropriate words, phrases, or sentences. This note is addressed to the requesting provider as a consultation for clinical guidance. Specific medical abbreviations are occasionally used and those are generally approved by the [place]?Board of?Obstetrics and?Gynecology?as well as?Jeri s abbreviations. The above plan of care was based solely on the diagnoses for which a consultation was requested. ?More frequent testing may be indicated based on her other medical/obstetrical conditions. The management of other or medical conditions is beyond the scope of requested consultation and will continue to be followed by the primary reconciliation clerk or primary care provider. Note to patient: [...] yes Have you been seen here at [facility] in a previous ? yes Recent ER visits or hospitalizations? 02/07 kidney and bladder infection Bring blood sugar log or meter with you today? (Please bring them with you for every visit at [facility]) na Flu vaccine (Mar-June)? na Any concerns that you would like me to mention to the provider today? no documented in this encounter [facility] 01-24-2024 History of Present illness Narrative Reason [...] 4 section, pt to be referred to [facility] for level II ultrasound. Pt to [...] Johnathan Recinos DO documented in this encounter [facility] 01-03-2024 History of Present illness Narrative [...] of: PACO Freed documented in this encounter [facility] 12-25-2023 History of Present illness Narrative [...] nursing note reviewed. Exam conducted with a outpatient therapist present. Vitals: Estimated body mass index is [...] oral medications. [facility] Patient aware that [facility] will reach out to her to initiate therapy. Follow Up: Patient is to return in 4 weeks for routine OB appointment. Documented by Barbara Guillermo LPN on behalf of: Liza Duque PA-C documented in this encounter [facility] 04-27-2023 Evaluation note Encounter Date Diagnosis [...] condition. Mar, Sore throat (ICD-10 - J02.9) [facility] Other 01-10-2023 Evaluation note* Encounter Date Diagnosis [...] weeks for the cough to go away [facility] Other 11-07-2022 NoteIndication: Abdominal pain. Comparison: None [...] Electronically authenticated by: SURJIT FREITAS Date: 2022-03-07 20:49[facility]11-19-2020 NoteHPI Staff This visit was conducted via phone communications from my office due to the restrictions of the COVID-19 pandemic. No physical exam was conducted due to audio only communication with the patient located at [address] [place] [phone], with no one else. If it is determined that the patientshould be evaluated in person, the patient will be directed to the appropriate clinic or venue. Thepatient or their guardian verbally consented to this visit. Phone time was 15 minutes discussing health issues with counseling and coordination of care. Subjective Interval History/HPI Patient presents today for follow up via telehealth phone from [facility]. Patient started Latuda 20mg last [...] anxiety, # 30 tab(s), Refills(s) 2, Pharmacy: [facility]/pharmacy #[id number], 161, cm, 12/23/19 10:18:00 EDT, Height/Length Dosing, 82, kg, 12/23/19 10:18:00 EDT, Weight Dosing Orders: lurasidone, 20 mg = 1 tab(s), Oral, Daily, with 350 calories; begin this dose first then progress to next dose of 40mg, X 1 week(s), # 7 tab(s), Refills(s) 0, Pharmacy: [facility]/pharmacy #[id number], 161, cm, 12/23/19 10:18:00 EDT, Height/Length Dosing, 82, kg, 12/23/19 10:... lurasidone, 40 mg = 1 tab(s), Oral, Daily, with 350 calories, # 30 tab(s), Refills(s) 1, Pharmacy: [facility]/pharmacy #[id number], 161, cm, 12/23/19 10:18:00 [...] (generalized anxiety disorder) [facility] (more content not included)...[facility] Result Comment: Electronically Signed By: Carlota RODRIGUEZ CNP\.br\Date and Time Signed: 03/19/20 14:27 [id number] NoteI Staff This visit was conducted via two-way, real-time interactive video communications from my office using [employer] due to the restrictions of the COVID-19 pandemic. No physical exam was conducted other than those areas of the body visible to telecommunications with the patient located at [address] [place] [address], with no one else in attendance. If [...] Ordered: TELEHEALTH Office Visit Level 3 Est 34755 General Treatment Plan Maintain medication regimen _Improve [...] Employed, 03/18/2019 Home/Environment Sylvia (more content not included)...[facility]: Result Comment: Electronically Signed By: Carlota RODRIGUEZ CNP\harshil\Date and Time Signed: 03/05/20 13:32 [id number] NoteI Staff This visit was conducted via two-way, real-time interactive video communications from my office using [employer] due to the restrictions of the COVID-19 pandemic. No physical exam was conducted other than those areas of the body visible to telecommunications with the patient located at [address] [place] [address], with no one else in attendance. If [...] anxiety, # 30 tab(s), Refills(s) 1, Pharmacy: [facility]/pharmacy #[id number], 161, cm, 12/23/19 10:18:00 EDT, Height/Length Dosing, 82, kg, 12/23/19 10:18:00 EDT, Weight Dosing alprazolam, 0.5 mg = 1 tab(s), Oral, TID, PRN for anxiety, # 30 tab(s), Refills(s) 1, [id number] 161, cm, 12/23/19 10:18:00 EDT, Height/Length Dosing, 82, kg, 12/23/19 10:18:00 EDT, Weight Dosing aripiprazole, See Instructions, 1.5 tab po qAM, # 30 tab(s), Refills(s) 2, Pharmacy: [facility]/pharmacy #[id number], 161, cm, 12/23/19 10:18:00 EDT, Height/Length Dosing, 82, kg, 12/23/19 10:18:00 EDT, Weight Dosing aripiprazole, See Instructions, 1 tab po qAM, # 30 tab(s), Refills(s) 5, [id number] 161, cm, 12/23/19 10:18:00 EDT, Height/Length Dosing, 82, kg, 12/23/19 10:18:00 EDT, Weight Dosing cyclobenzaprine, 10 mg = 1 tab(s), Oral, TID, PRN for spasm, # 30 tab(s), Refills(s) 1, [id number] 161, cm, 06/13/19 14:39:00 EST, Height/Length Measured, 82, kg, 06/13/19 14:39:00EST, Weight Measured cyclobenzaprine, 10 mg = 1 tab(s), Oral, TID, PRN for spasm, # 30 tab(s), Refills(s) 1, Pharmacy: [facility]/pharmacy #[id number], 161, cm, 12/23/19 10:18:00 EDT, Height/Length Dosing, 82, kg, 12/23/19 10:18:00 EDT, Weight Dosing General Treatment Plan Maintain medication regimen _Improve mood stability _Improve anxiety control _Improve social and interpersonal functioning Clinical Global Impression 62 Prognosis progressing Follow-up With When Contact Information Carlota RODRIGUEZ CNP In 4 weeks Additional Instructions: (more content not included)...[facility]:Result Comment: Electronically Signed By: Carlota RODRIGUEZ CNP\Date and Time Signed: 01/27/20 22:35 [id number] NoteI Staff This visit was conducted via two-way, real-time interactive video communications from my office using [employer] due to the restrictions of the COVID-19 pandemic. No physical exam was conducted other than those areas of the body visible to telecommunications with the patient located at [address] [place] [phone], with no one else in attendance. If [...] Ordered: TELEHEALTH Office Visit Level 3 Est 14180 General Treatment Plan Maintain medication regimen _Improve [...] Use:. Never Smokeless Tob (more content not included)...[facility] above:Result Comment: Electronically Signed By: Carlota RODRIGUEZ CNP\harshil\Date and Time Signed: 01/13/20 09:11 [id number] NoteI Staff This visit was conducted via two-way, real-time interactive video communications from my office using [employer] due to the restrictions of the COVID-19 pandemic. No physical exam was conducted other than those areas of the body visible to telecommunications with the patient located at [address] [place] [address], with no one else in attendance. If [...] anxiety, # 30 tab(s), Refills(s) 1, Pharmacy: [facility]/pharmacy #[id number], 161, cm, 12/23/19 10:18:00 EDT, Height/Length Dosing, 82, kg, 12/23/19 10:18:00 EDT, Weight Dosing alprazolam, 0.5 mg = 1 tab(s), Oral, TID, PRN for anxiety, # 30 tab(s), Refills(s) 1, Pharmacy: [facility]/pharmacy #[id number], 161, cm, 06/13/19 14:39:00 EST, Height/Length Measured, 82, kg, 06/13/19 14:39:00 EST, Weight Measured aripiprazole, See Instructions, 1 tab po qAM, # 30 tab(s), Refills(s) 0, Pharmacy: [facility]/pharmacy #[id number], 161, cm, 12/23/19 10:18:00 [...] Allergies Bactrim Social History (more content not included)...[facility] above:Result Comment: Electronically Signed By: Carlota RODRIGUEZ CNP\.br\Date and Time Signed: 12/23/19 16:37 [id number] NoteI Staff This visit was conducted via two-way, real-time interactive video communications from my office using [employer] due to the restrictions of the COVID-19 pandemic. No physical exam was conducted other than those areas of the body visible to telecommunications with the patient located at [address] [place] [address], with no one else in attendance. If [...] q24hr, # 30 tab(s), Refills(s) 2, Pharmacy: [facility]/pharmacy #[id number],161, cm, 06/13/19 14:39:00 EST, Height/Length Measured, 82, kg, 06/13/19 14:39:00 EST, Weight Measured cyclobenzaprine, 10 mg = 1 tab(s), Oral, TID, PRN for spasm, # 30 tab(s), Refills(s) 1, Pharmacy: [facility]/pharmacy #[id number], 161, cm, 06/13/19 14:39:00 [...] Employment/School Employed, 03/18/2019 Home/Environment (more content not included)...[facility]:Result Comment: Electronically Signed By: Carlota RODRIGUEZ CNP\harshil\Date and Time Signed: 12/02/19 16:38 EDTChief complaint+Reason for visit Narrative* Chief Complaint Nausea, diarrhea, fe zhou Reason for Visit Contact with and (guillen spected) exposure to covid-19 Sore throat [facility] Work Phone: Evaluation note* Diagnosis Onset Date Resolution Status Contact with and (suspected) exposure to covid-19 noneactive Sore throat noneactive [facility] Work Phone: Evaluation note* Diagnosis 21 weeks gestation of - Primary Obesity affecting in second trimester, unspecified obesity type documented in this encounter [facility] SystemEvaluation note* Diagnosis 21 weeks gestation of - Primary Multigravida of advanced maternal age in second trimester Pyelonephritis affecting in second trimester Bipolar disease during in second trimester ([facility]) Obesity affecting in second trimester, unspecified obesity type BMI 39.0-39.9,adult History of section complicating Previous delivery, unspecified as to episode of care or not applicable Vapes nicotine containing substance Current rao with 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, antepartum History of delivery, currently with history of pre-term labor documented in this encounter [facility] SystemEvaluation note* Diagnosis 22 weeks gestation of Second trimester state, incidental Diabetes mellitus screening Screening for diabetes mellitus documented in this encounter [facility] HealthcareEvaluation note* Diagnosis 24 weeks gestation of Second trimester state, incidental Flank pain Abdominal pain, unspecified site Acute cystitis with hematuria documented in this encounter [facility] HealthcareEvaluation note* Diagnosis 24 weeks gestation of Second trimester state, incidental Acute cystitis with hematuria documented in this encounter [facility] HealthcareEvaluation note* Diagnosis Second trimester state, incidental [...] HealthcareEvaluation note* Diagnosis Third trimester state, incidental 36 weeks gestation of documented in this encounter [facility] general Narrative - Reported* Type Description Date Medical History Bipolar Surgical History appendectomy Surgical History x 3 Hospitalization History see above surgical histo ry [employer] Other InstructionsNot on filedocumented in this encounter [facility] SystemInstructions* Attachments The following attachments cannot be sent through Care Everywhere. * Preeclampsia (Indonesian) * Movement (Indonesian) [facility] Advance Directives Advance Directive Response Recorded [...] may need to be seen by an air traffic supervisor if you have other events like this without definite egg exposure. Summary Purpose Family History Relationship Condition Age at Onset Recorded Date/T alo father Diabetes mellitus Unknown Hypertension Unknown Additional Source Comments INFORMATION SOURCE (unrecogn ized section and content) DATE CREATED AUTHOR 10/30/2020 [facility] DATE CREATED AUTHOR AUTHOR'S ORGANIZ ATION 04/29/2022 [facility] DATE CREATED AUTHOR AUTHOR'S ORGANIZ ATION 03/16/2024 [facility] DATE CREATED AUTHOR AUTHOR'S ORGANIZ ATION 04/25/2024 [facility] DATE CREATED AUTHOR AUTHOR'S ORGANIZ ATION 05/24/2024 [facility] EPIC REASON FOR [...] August 18, 2023 End: August 18, 2023 Jig Builder Relationship Specialty Start Date End Date No Pcp, [place] [address] PCP - General Family Medicine 03/12/19 Jig Builder Relationship Specialty Start Date End Date No Pcp, [place] [address] PCP - General Family Medicine 03/12/19 Goals [...] THE PRIMARY CLINICAL RECORDS. [facility] [facility]. provides no warranty or guarantee of the accuracy or completeness of information in this document.
== END 2024-05-29 13:20 | disposition home or self-care (01) ==
LOC: LAB 13:19
PROVIDERS: PCP Nurse Practitioner Family; Visit Provider Physician Assistant
DX: Z34.93 Encounter for supervision of normal pregnancy, unspecified, third trimester (principal)
CPT/HCPCS: 36415; 87081

== ENCOUNTER 2024-05-29 15:30 | Observation (INO) | payer BC, OTHER, SELFPAY ==
--- NOTE | 2024-05-29 15:39 | US_ITS ---
[address] [address] Patient Name: PROSPER RUIZ MRN: [id number] date: 1985 Sex: F Assigned Patient Location: [facility] Current Patient Location: Accession/Order Number: [id number] Exam Date: 05/29/2024 15:40 Report Date: 05/30/2024 06:19 At the request of: MAKENZIE SO Procedure: US OB BPP w non-stress EXAMINATION: US OB BPP w non-stress HISTORY: PIH workup COMPARISON: No relevant comparison available. TECHNIQUE: Ultrasound biophysical profile was performed in the radiology department. non-reactive stress testing was performed by nursing staff in the birthing center. FINDINGS: BREATHING MOVEMENTS: 2 GROSS BODY MOVEMENTS: 2 TONE: 2 QUALITATIVE AMNIOTIC FLUID VOLUME: 2 PRESENTATION: CEPHALIC HEART RATE: 140.63 bpm AMNIOTIC FLUID VOLUME: 20.3 cm GESTATIONAL AGE: 36 weeks 1 day US/US OB BPP w non-stress IMPRESSION: Total biophysical profile score: 8 Electronically authenticated by: [employer] [place] Date: 05/30/2024 06:19
[2024-05-29 16:04] VITALS: BP 99/67; PULSE 115
[2024-05-29] MEDS: 0.9 % SODIUM CHLORIDE 1,000 ML 999 ML IV (16:08)
[2024-05-29] MEDS: HYDROCODONE/ACET 5-325 MG TABLET 2 TAB PO (16:46)
[2024-05-29 16:50] VITALS: BP 103/57; PULSE 88
[2024-05-29 16:51] LABS: Basophils Percent Auto 0.3 % (0.2-2.0); Eosinophils Percent Auto 0.5 % (0.9-7.0); Hematocrit 33.4 % (36.0-48.0); Hemoglobin 10.9 g/dL (12.0-16.0); Immature Granulocytes Abs Auto 0.03 10^3/uL (0.00-0.03); Immature Granulocytes Pct Auto 0.4 % (0.0-0.5); Lymphocytes Absolute Auto 1.5 10^3/uL (1.2-3.8); Lymphocytes Percent Auto 20.7 % (20.5-60.0); Mean Corpuscular HGB Conc 32.6 g/dL (29.9-35.2); Mean Corpuscular Hemoglobin 29.1 pg (26.7-34.0); Mean Corpuscular Volume 89.1 fL (81.0-99.0); Mean Platelet Volume 11.2 fL (9.5-13.5); Monocytes Absolute Auto 0.4 10^3/uL (0.3-0.8); Monocytes Percent Auto 5.8 % (1.7-12.0); Neutrophils Absolute Auto 5.4 10^3/uL (1.4-6.5); Neutrophils Percent Auto 72.3 % (43.0-75.0); Platelet Count 269 10^3/uL (150-450); Red Blood Count 3.75 10^6/uL (4.20-5.40); Red Cell Distribution Width 13.2 % (11.0-15.0); White Blood Count 7.4 10^3/uL (4.0-11.0)
== END 2024-05-29 17:15 | disposition home or self-care (01) ==
PROVIDERS: Admitting Provider Obstetrics & Gynecology; PCP Nurse Practitioner Family; Visit Provider Obstetrics & Gynecology
DX: O26.893 Other specified pregnancy related conditions, third trimester (principal); Z3A.36 36 weeks gestation of pregnancy
CPT/HCPCS: 36415; 76818; 85025; 87081; G0378; G0379

== ENCOUNTER 2024-05-31 01:10 | Outpatient (OUT) | payer BC, OTHER, SELFPAY ==
--- OUTSIDE RECORDS SUMMARY | 2024-05-31 01:14 | XMS_ITS | CCD ---
Author Organization [facility] InformFormerly [facility] Care Team Providers Care Cutter Wet Machine Name Role Phone Kimberlyn Xie Primary Care [...] 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: [egg] Drug Allergy 08-18-19 24 Vomiting [facility] (20 sources) Sulfamethoxazole; 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: [SULFAMETHOXAZOLE] Drug Allergy 08-18-19 24 [facility] (20 sources) Trimethoprim; 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: [TRIMETHOPRIM] Drug Allergy 08-18-19 24 [facility] (3 sources) Fish Containing Products; 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: [Fish Containing Products] Propensity to adverse reactions 08-18-19 24 Difficulty Breathing [facility] (1 source) Sulfamethoxazole / Trimethoprim Drug Allergy 02-04-20 13 [facility] (20 sources) Sulfamethoxazole / Trimethoprim Drug Allergy 11-24-19 24 hives, Unknown [employer] Other (20 sources) Egg-Derived Products Drug Allergy [...] (six) hours as needed for pain. Active [id number] 200 actuat albuterol 0.09 mg/actuat metered dose [...] Glucose Monitoring Suppl (D-Care Glucometer) w/Device kit (16 sources) Start: 03-25-2024 End: 03-25-2025 Blood Glucose [...] oral tablet (1 source) alpha-Adrenergic Agonist, Uncompetitive X-raxfeq-D-aspartate Receptor Antagonist, Sigma-1 Agonist Start: 04-27-2023 take 4 tablets by mouth every twenty-four hours as needed Capmist DM 60-15-400 MG as needed Orally every 4-6 hours as needed, max 4 tablets in 24 hours for 5 days Mar, Active [id number] 0.3 ml EPINEPHrine 1 mg/ml auto-injector (2 [...] insulin isophane, human 100 unt/ml injectable suspension (7 sources) Start: 05-22-2024 inject 10 [IU] by [...] insulin, regular, human 100 unt/ml injectable solution (7 sources) Insulin Start: 05-22-2024 End: 06-21-2024 inject [...] Active isopropyl alcohol 0.7 ml/ml medicated pad (16 sources) Start: 03-25-2024 Alcohol Swabs (Alcohol Prep [...] 18, 2023 12:00am take 1 capsule by [facility] every twenty-four hours in the morning venlafaxine [...] Date Documented Da te Episodic/Chronic Abdominal pain (20 sources) Unspecified abdominal pain; 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: [Flank pain] [...] Hypertension complicating ; childbirth and the puerperium (12 sources) Elevated blood pressure; 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: [Unspecified maternal [...] Episodic Other aftercare (1 source) Other long term care social worker (current) drug therapy; 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: [OTH MEMORY CARE PROGRAM RESIDENT CURRENT DRUG THERAPY] Onset: 04-29-2022 Episodic Other [...] of ] 03-21-2024 Episodic Residual codes; unclassified (17 sources) Gestation period, 28 weeks; 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: [28 weeks gestation of ] Onset: 04-03-2024 04-03-2024 Episodic Residual codes; unclassified (2 sources) Gestation period, 18 weeks; 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: [18 weeks gestation of ] 01-24-2024 Episodic Residual codes; unclassified (12 sources) Gestation period, 33 weeks; 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: [33 [...] Test Name Value Interpretation Reference Range Facility US OB BPP W NON-STRESS on 05-30-2024 [place] [address] Ultrasound Report Signed Patient: PROSPER RUIZ MR#: [id number] : 1985 Acct:[id number] Age/Sex: 39 / F ADM Date: Loc: [facility] 250-[address]: Johnathan Recinos D.O. Ordering Physician: Johnathan Recinos D.O. Date of Service: 05/29/24 Procedure(s): US OB BPP w non-stress Accession Number(s): [id number] cc: KIMBERLYN XIE ; Johnathan Recinos D.O. The [place] [id number] Patient Name: PROSPER RUIZ MRN: [facility]:[id number] date: 1985 Sex: F Assigned Patient Location: [facility] Current Patient Location: Accession/Order Number: [id number] Exam Date: 05/29/2024 15:40 Report Date: 05/30/2024 06:19 At the request of: JOHNATHAN RECINOS Procedure: US OB BPP w non-stress EXAMINATION: US OB BPP w non-stress HISTORY: PIH workup COMPARISON: No relevant comparison available. TECHNIQUE: Ultrasound biophysical profile was performed in the radiology department. non-reactive stress testing was performed by nursing staff in the birthing center. FINDINGS: BREATHING MOVEMENTS: 2 GROSS BODY MOVEMENTS: 2 TONE: 2 QUALITATIVE AMNIOTIC FLUID VOLUME: 2 PRESENTATION: CEPHALIC HEART RATE: 140.63 bpm AMNIOTIC FLUID VOLUME: 20.3 cm GESTATIONAL AGE: 36 weeks 1 day US/US OB BPP w non-stress IMPRESSION: Total biophysical profile score: 8 Electronically authenticated by: NATO BUTTERFIELD Date: 05/30/2024 06:19 Dictated By: Nato Butterfield M.D. Signed By: 05/30/24621 DD/ 8 TD/TT: Director Content Marketing: [facility] Radiology, Radiologist, MD - 05/30/2024 [place] [address] Ultrasound Report Signed Patient: PROSPER RUIZ MR#: [id number] : 1985 Acct:[id number] Age/Sex: 39 / F ADM Date: Loc: [facility] 250-[address]: Johnathan Recinos D.O. Ordering Physician: Jhonathan Recinos D.O. Date of Service: 05/29/24 Procedure(s): US OB BPP w non-stress Accession Number(s): [id number] cc: KIMBERLYN XIE ; Johnathan Recinos D.O. The [place] [id number] Patient Name: PROSPER RUIZ MRN: [id number] date: 1985 Sex: F Assigned Patient Location: [facility] Current Patient Location: Accession/Order Number: [id number] Exam Date: 05/29/2024 15:40 Report Date: 05/30/2024 06:19 At the request of: JOHNATHAN RECINOS Procedure: US OB BPP w non-stress EXAMINATION: US OB BPP w non-stress HISTORY: PIH workup COMPARISON: No relevant comparison available. TECHNIQUE: Ultrasound biophysical profile was performed in the radiology department. non-reactive stress testing was performed by nursing staff in the birthing center. FINDINGS: BREATHING MOVEMENTS: 2 GROSS BODY MOVEMENTS: 2 TONE: 2 QUALITATIVE AMNIOTIC FLUID VOLUME: 2 PRESENTATION: CEPHALIC HEART RATE: 140.63 bpm AMNIOTIC FLUID VOLUME: 20.3 cm GESTATIONAL AGE: 36 weeks 1 day US/US OB BPP w non-stress IMPRESSION: Total biophysical profile score: 8 Electronically authenticated by: NATO BUTTERFIELD Date: 05/30/2024 06:19 Dictated By: Nato Butterfield M.D. Signed By: 05/30/24621 DD/ 8 TD/TT: Director Content Marketing: [facility] Radiology Study observation (narrative) [facility] US OB BPP W NON-STRESS Ordered By: Radiologist Radiology on 05-30-2024 [facility] Work Phone: ALL CBC WITH AUTO DIFFon BASOPHILS ABSOLUTE AUTO 0 [facility] Basophils/100 WBC (Bld) 0.3 % 0.2 - 2.0 % [facility] Eosinophils/100 WBC (Bld) 0.5 % Low 0.9 - 7.0 % [facility] Erythrocyte distribution width (RBC) [Ratio] 13.2 % 11.0 - 15.0 % [facility] Hematocrit (Bld) [Volume fraction] 33.4 % Low 36.0 - 48.0 % [facility] Hemoglobin (Bld) [Mass/Vol] 10.9 g/dL Low 12.0 - 16.0 g/dL [facility] IMMATURE GRANULOCYTES ABS AUTO 0.03 [facility] Immature granulocytes/100 WBC (Bld) 0.4 % 0.0 - 0.5 % [facility] Interpretation and review of laboratory results Abnormal [facility] LYMPHOCYTES ABSOLUTE AUTO 1.5 [facility] Lymphocytes/100 WBC (Bld) 20.7 % 20.5 - 60.0 % [facility] MCH (RBC) [Entitic mass] 29.1 pg 26.7 - 34.0 pg [facility] MCHC (RBC) [Mass/Vol] 32.6 g/dL 29.9 - 35.2 g/dL [facility] MCV (RBC) [Entitic vol] 89.1 fL 81.0 - 99.0 fL [facility] MONOCYTES ABSOLUTE AUTO 0.4 [facility] Monocytes/100 WBC (Bld) 5.8 % 1.7 - 12.0 % [facility] NEUTROPHILS ABSOLUTE AUTO 5.4 [facility] Neutrophils/100 WBC (Bld) 72.3 % 43.0 - 75.0 % [facility] Platelet mean volume (Bld) [Entitic vol] 11.2 fL 9.5 - 13.5 fL [facility] EO # 0 [facility] TB PLT 269 [facility] e TB RBC 3.75 Low [facility] TB WBC 7.4 [facility] Urinalysis macro (dipstick) panel (U)on 05-29-2024 Bilirubin, UA Negative Negative - 4(70) +++ mg/dL [facility] Blood, UA Negative Negative - 50 Slick/mcL [facility] Clarity, UA Clear [facility] re Color, UA Yellow [facility] e Glucose, UA Negative Negative - 1999(110) ++++ mg/dL [facility] Interpretation and review of laboratory results Normal [facility] Ketones, UA Negative Negative - 160(16) ++++ mg/dL [facility] Leukocytes, UA Negative Negative - 500+++ Mira/mcL [facility] Nitrite, UA Negative Negative - Positive [facility] pH, UA 6 5 - 9 [facility] Protein, UA Negative Negative - 1999(20) ++++ mg/dL [facility] Spec Grav, UA 1.015 1 - 1.03 [facility] Urobilinogen, UA 0.2 0.2 - 12 mg/dL [facility] Urinalysis macro (dipstick) panel (U)on 05-22-2024 Bilirubin, UA Negative Negative - 4(70) +++ mg/dL [facility] Healthcare Blood, UA Negative Negative - 50 Slick/mcL [facility] Healthcare Clarity, UA Clear [facility] re Color, UA Yellow [facility] Glucose, UA Negative Negative - 1999(110) ++++ mg/dL [facility] Interpretation and review of laboratory results Abnormal [facility] Healthcare Ketones, UA Negative Negative - 160(16) ++++ mg/dL [facility] Healthcare Leukocytes, UA Trace Negative - 500+++ Mira/mcL [facility] Healthcare Nitrite, UA Negative Negative - Positive [facility] Healthcare pH, UA 6 5 - 9 [facility] Protein, UA Trace Negative - 1999(20) ++++ mg/dL [facility] Healthcare Spec Grav, UA 1.015 1 - 1.03 [facility] Health care Urobilinogen, UA 0.2 0.2 - 12 mg/dL [facility] Ur[facility]ysis macro (dipstick) panel (U)on 05-13-2024 Bilirubin, UA Negative Negative - 4(70) +++ mg/dL [facility] Blood, UA Positive Negative - 50 Slick/mcL [facility] Healthcare Comment on above: trace Clarity, UA Clear [facility] Color, UA Yellow [facility] Glucose, UA Negative Negative - 1999(110) ++++ mg/dL [facility] Interpretation and review of laboratory results Abnormal [facility] Healthcare Ketones, UA Negative Negative - 160(16) ++++ mg/dL [facility] Healthcare Leukocytes, UA Negative Negative - 500+++ Mira/mcL [facility] Healthcare Nitrite, UA Negative Negative - Positive [facility] Healthcare pH, UA 6.5 5 - 9 [facility] Protein, UA Negative Negative - 1999(20) ++++ mg/dL [facility] Spec Grav, UA 1.01 1 - [...] 2513 gm / 5 lbs, 8 oz (7664-1837 gm) [place] Normal: 2393 gm (7838-2949 gm) [place] Wt%: 65% for 34.1 wks [...] as of 03/21/2024: 32w3d [facility] UA (CLEAN/CATCH) TRENCH SHOVEL OPERATOR/CHUY RO IF IND.on 04-22-2024 BILIRUBIN URINE Negative [...] (U) No Growth 2 Days PERFORMED BY: [facility] [address] [place] [address] PATHOLOGIST LAND LAW EXAMINER SYD Watson [facility] Comment on above: Performed By: #### C UU #### [facility] [address] [place] [id number] [facility] RECURRENT VAGINITIS (HTRX)on 04-06-2024 ATOPOBIUM VAGINAE 0 [...] UA 1+ Negative - 2000(110) ++++ mg/dL [facility] Comment on above: 100mg/dL Interpretation and review of laboratory results Abnormal [facility] Ketones, UA Negative Negative - 160(16) ++++ mg/dL [facility] Leukocytes, UA Trace Negative - 500+++ Mira/mcL [facility] Nitrite, UA Negative Negative - Positive [facility] pH, UA 6 5 - 9 [facility] Protein, UA Negative Negative - 2000(20) ++++ mg/dL [facility] Spec Grav, UA 1.01 1 - 1.03 [facility] Urobilinogen, UA 0.2 0.2 - 12 mg/dL [facility] ALL CBC WITH AUTO DIFFon BASOPHILS ABSOLUTE AUTO 0 [facility] Basophils/100 WBC (Bld) 0.1 % Low 0.2 - 2.0 % [facility] Eosinophils/100 WBC (Bld) 0.5 % Low 0.9 - 7.0 % [facility] Erythrocyte distribution width (RBC) [Ratio] 13.9 % 11.0 - 15.0 % [facility] Hematocrit (Bld) [Volume fraction] 35.2 % Low 36.0 - 48.0 % [facility] Hemoglobin (Bld) [Mass/Vol] 11.5 g/dL Low 12.0 - 16.0 g/dL [facility] IMMATURE GRANULOCYTES ABS AUTO 0.05 High [facility] Immature granulocytes/100 WBC (Bld) 0.6 % High 0.0 - 0.5 % [facility] Interpretation and review of laboratory results Abnormal [facility] LYMPHOCYTES ABSOLUTE AUTO 1.9 [facility] Lymphocytes/100 WBC (Bld) 22.9 % 20.5 - 60.0 % [facility] MCH (RBC) [Entitic mass] 30.5 pg 26.7 - 34.0 pg [facility] MCHC (RBC) [Mass/Vol] 32.7 g/dL 29.9 - 35.2 g/dL [facility] MCV (RBC) [Entitic vol] 93.4 fL 81.0 - 99.0 fL [facility] MONOCYTES ABSOLUTE AUTO 0.3 [facility] Monocytes/100 WBC (Bld) 3.3 % 1.7 - 12.0 % [facility] NEUTROPHILS ABSOLUTE AUTO 6.1 [facility] Neutrophils/100 WBC (Bld) 72.6 % 43.0 - 75.0 % [facility] Platelet mean volume (Bld) [Entitic vol] 10.5 fL 9.5 - 13.5 fL [facility]H EO # 0 [facility] TB PLT 347 [facility] TB RBC 3.77 Low [facility] TB WBC 8.4 [facility] Urinalysis macro (dipstick) panel (U)on 03-21-2024 Bilirubin, UA Negative Negative - 4(70) +++ mg/dL [facility] Blood, UA Negative Negative - 50 Lsick/mcL [facility] Healthcare Clarity, UA Cloudy [facility] re Color, UA Yellow [facility] Glucose, UA Positive Negative - 1999(110) ++++ mg/dL [facility] Comment on above: 500 mg Interpretation and review of laboratory results Abnormal [facility] Ketones, UA Negative Negative - 160(16) ++++ mg/dL [facility] Leukocytes, UA Negative Negative - 500+++ Mira/mcL [facility] Nitrite, UA Negative Negative - Positive [facility] pH, UA 6.5 5 - 9 [facility] Protein, UA Negative Negative - 1999(20) ++++ mg/dL [facility] Spec Grav, UA 1.025 1 - 1.03 [facility] Urobilinogen, UA 0.2 0.2 - 12 mg/dL [facility] Urinalysis macro (dipstick) panel (U)on 03-11-2024 Bilirubin, UA Negative Negative - 4(70) +++ mg/dL [facility] Blood, UA Positive Negative - 50 Slick/mcL [facility] Comment on above: large Clarity, UA Clear [facility] Color, UA Straw [facility] Glucose, UA Negative Negative - 1999(110) ++++ mg/dL [facility] Interpretation and review of laboratory results Abnormal [facility] Ketones, UA Negative Negative - 160(16) ++++ mg/dL [facility] Leukocytes, UA Negative Negative - 500+++ Mira/mcL [facility] Nitrite, UA Negative Negative - Positive [facility] pH, UA 6 5 - 9 [facility] Protein, UA Negative Negative - 1999(20) ++++ mg/dL [facility] Spec Grav, UA 1.02 1 - 1.03 [facility] Urobilinogen, UA 0.2 0.2 - 12 mg/dL [facility] UA (CLEAN/CATCH) TRENCH SHOVEL OPERATOR/CHUY RO IF IND.on 03-06-2024 BILIRUBIN URINE COLOR INTERFERENCE Abnormal NEGATIVE N [facility] BLOOD URINE COLOR INTERFERENCE Abnormal NEGATIVE [facility] Clarity (U) CLEAR CLEAR [facility] Color (U) DK. RED YELLOW [facility] GLUCOSE URINE UA COLOR INTERFERENCE Abnormal NEGAT CARMELITA mg/dL [facility] Interpretation and review of laboratory results Abnormal [facility] Ketones Ql (U) COLOR INTERFERENCE Abnormal NEGATIV E mg/dL [facility] Leukocyte esterase Test strip Ql (U) COLOR INTERFERENCE Abnormal NEGATIVE [facility] NITRITE URINE COLOR INTERFERENCE Abnormal NEGATIVE [facility] PH URINE COLOR INTERFERENCE Abnormal 5.0 - 9.0 [facility] PROTEIN URINE COLOR INTERFERENCE Abnormal NEG/TRAC E mg/dL [facility] SPECIFIC GRAVITY URINE 1.020 1.005 - 1.025 [facility] URINE MICROSCOPIC INDICATED YES [facility] UROBILINOGEN URINE COLOR INTERFERENCE Abnormal 0.2 - 1.0 EU/dL [facility] Urinalysis macro (dipstick) panel (U)on 03-06-2024 Bilirubin, UA Positive Negative - 4(70) +++ mg/dL [facility] Blood, UA Positive Negative - 50 Slick/mcL [facility] Comment on above: large Clarity, UA Clear [facility] Color, UA Dark [place] [facility] Glucose, UA Negative Negative - 1999(110) ++++ mg/dL [facility] Interpretation and review of laboratory results Abnormal [facility] Ketones, UA Negative Negative - 160(16) ++++ mg/dL [facility] Leukocytes, UA Trace Negative - 500+++ Mira/mcL [facility] Nitrite, UA Positive Negative - Positive [facility] pH, UA 6 5 - 9 [facility] Protein, UA Positive Negative - 1999(20) ++++ mg/dL [facility] Comment on above: 100 Spec Grav, UA 1.02 1 - 1.03 [facility] Urobilinogen, UA 1.0 0.2 - 12 mg/dL [facility] Urinalysis macro (dipstick) panel (U)on 02-21-2024 Bilirubin, UA Negative Negative - 4(70) +++ mg/dL [facility] Blood, UA Negative Negative - 50 Slick/mcL [facility] Clarity, UA Clear [facility] Color, UA Yellow [facility] Glucose, UA Negative Negative - 1999(110) ++++ mg/dL [facility] Interpretation and review of laboratory results Abnormal [facility] Ketones, UA Negative Negative - 160(16) ++++ mg/dL [facility] Leukocytes, UA Trace Negative - 500+++ Mira/mcL [facility] Nitrite, UA Negative Negative - Positive [facility] pH, UA 5.5 5 - 9 [facility] Protein, UA Negative Negative - 1999(20) ++++ mg/dL [facility] Spec Grav, UA 1.01 1 - 1.03 [facility] Urobilinogen, UA 0.2 0.2 - 12 mg/dL [facility] CBC AND AUTO DIFFon 02-09-20 ABSOLUTE BASOPHIL 0.0 X10E9/L Normal 0.0-0.2 [facility] Comment on above: Performed By: #### 3 2132-, CMP, CBCA #### [facility] ([id number]) [address] [place] [address], [address] [address] ABSOLUTE NEUTROPHIL 5.4 X10E9/L Normal 1.5-6.6 [facility] Comment on above: Performed By: #### 3 2132-05, CMP, CBCA #### [facility] ([id number]) [address] [place] [address], [address] [place] [address] Basophils/100 WBC (Bld) 0.2 % Normal [facility] Comment on above: Performed By: #### 3 2132-1, CMP, CBCA #### [facility] ([id number]) [address] [place] [address], [facility] [address] [place] [address] Eosinophils (Bld) [#/Vol] 0.1 10*3/uL Normal 0.0-0.4 [facility] Comment on above: Performed By: #### 3 2133-1, CMP, CBCA #### [facility] ([id number]) [address], [address] [place] [address] Eosinophils/100 WBC (Bld) 0.9 % Normal [facility] Comment on above: Performed By: #### 3 2132-1, CMP, CBCA #### [facility] ([id number]) [address], [facility] [address] [place] [address] Erythrocyte distribution width (RBC) [Ratio] 14.3 % Normal 11.5-15.0 [facility] Comment on above: Performed By: #### 3 2132-1, CMP, CBCA #### [facility] ([id number]) [address], [facility] [address] [place] [address] Hematocrit (Bld) [Volume fraction] 30.3 % Low 35-47 [facility] Comment on above: Performed By: #### 3 2132-, CMP, CBCA #### [facility] ([id number]) [address], [facility] [address] [place] [address] Hemoglobin (Bld) [Mass/Vol] 10.3 g/dL Low 11.7-15.5 [facility] Comment on above: Performed By: #### 3 2132-05, CMP, CBCA #### [facility] ([id number]) [address], [facility] [address] [place] [address] Lymphocytes (Bld) [#/Vol] 1.7 10*3/uL Normal 1.0-3.5 [facility] Comment on above: Performed By: #### 3 2132-1, CMP, CBCA #### [facility] ([id number]) [address], [address] [place] [address] Lymphocytes/100 WBC (Bld) 22.0 % Normal [facility] Comment on above: Performed By: #### 3 2132-1, CMP, CBCA #### [facility] ([id number]) [address], [address] [place] [address] MCH (RBC) [Entitic mass] 31.3 pg Normal 27-34 [facility] Comment on above: Performed By: #### 3 2132-1, CMP, CBCA #### [facility] ([id number]) [address], [address] [place] [address] MCHC (RBC) [Mass/Vol] 34.0 g/dL Normal 32-36 [facility] Comment on above: Performed By: #### 3 2132-1, CMP, CBCA #### [facility] ([id number]) [address], [address] [place] [address] MCV (RBC) [Entitic vol] 92 fL Normal 80-100 [facility] Comment on above: Performed By: #### 3 2132-1, CMP, CBCA #### [facility] ([id number]) [address], [address] [place] [address] Monocytes (Bld) [#/Vol] 0.5 10*3/uL Normal 0-0.9 [facility] Comment on above: Performed By: #### 3 2132-1, CMP, CBCA #### [facility] ([id number]) [address], [address] [place] [address] Monocytes/100 WBC (Bld) 7.0 % Normal [facility] Comment on above: Performed By: #### 3 2132-1, CMP, CBCA #### [facility] ([id number]) [address], [address] [place] [address] Neutrophils/100 WBC (Bld) 69.9 % Normal [facility] Comment on above: Performed By: #### 3 2132-1, CMP, CBCA #### [facility] ([id number]) [address] [address] Platelet mean volume (Bld) [Entitic vol] 8.8 fL Normal 7-12 [facility] Comment on above: Performed By: #### 3 2132-1, CMP, CBCA #### [facility] ([id number]) [address] [address] Platelets (Bld) [#/Vol] 259 10*3/uL Normal 150-450 [facility] Comment on above: Performed By: #### 3 2132-1, CMP, CBCA #### [facility] ([id number]) [address] [address] RBC COUNT 3.29 X10E12/L Low 3.80-5.20 [facility] Comment on above: Performed By: #### 3 2132-1, CMP, CBCA #### [facility] ([id number]) [address] [address] WBC (Bld) [#/Vol] 7.7 10*3/uL Normal 4.0-11.0 [facility] Comment on above: Performed By: #### 3 2132-1, CMP, CBCA #### [facility] ([id number]) [address] [address] COMPREHENSIVE METABOLIC PANE Paco 02-09-2024 Albumin [Mass/Vol] 2.9 g/dL Low 3.2-5.3 [facility] Comment on above: Performed By: #### 3 2132-1, CMP, CBCA #### [facility] ([id number]) [address] [address] ALP [Catalytic activity/Vol] 118 U/L Normal 39-130 [facility] Comment on above: Performed By: #### 3 2132-1, CMP, CBCA #### [facility] ([id number]) [address], [address] [place], [place] [address] ALT [Catalytic activity/Vol] 6 U/L Normal 0-31 [facility] Comment on above: Performed By: #### 3 2132-1, CMP, CBCA #### [facility] ([id number]) [address], [address] [place], [place] [address] Anion gap [Moles/Vol] 10 mmol/L Normal 5-15 [facility] Comment on above: Performed By: #### 3 2132-1, CMP, CBCA #### [facility] ([id number]) [address], [address] [place], [place] [address] AST [Catalytic activity/Vol] 9 U/L Normal 0-41 [facility] Comment on above: Performed By: #### 3 2132-1, CMP, CBCA #### [facility] ([id number]) [address], [address] [place], [place] [address] Bilirubin [Mass/Vol] 0.4 mg/dL Normal 0.3-1.2 [facility] Comment on above: Performed By: #### 3 2132-1, CMP, CBCA #### [facility] [facility] ([id number]) [address], [address] [place], [place] [address] Calcium [Mass/Vol] 8.5 mg/dL Normal 8.5-10.5 [facility] Comment on above: Performed By: #### 3 2132-1, CMP, CBCA #### [facility] ([id number]) [address], [address] [place], [place] [address] Chloride [Moles/Vol] 105 mmol/L Normal 98-109 [facility] Comment on above: Performed By: #### 3 2132-1, CMP, CBCA #### [facility] ([id number]) [address], [address] [place], [place] [address] CO2 [Moles/Vol] 22 mmol/L Normal 22-32 [facility] Comment on above: Performed By: #### 3 2132-1, CMP, CBCA #### [facility] ([id number]) [address], [address] [place] [address] Creatinine [Mass/Vol] 0.45 mg/dL Normal 0.40-1.00 [facility] Comment on above: Result Comment: METH OD TRACEABLE TO IDMS STANDARD Performed By: #### 3 2132-1, CMP, CBCA #### [facility] ([id number]) [address], [address] [place] [address] eGFR (CKD-EPI) NON-RACE DEPENDENT >90 Normal >59 [facility] Comment on above: Result Comment: Reported eGFR is based on the CKD-EPI 2020 equation that does not use a race coefficient. Performed By: #### 3 2132-1, CMP, CBCA #### [facility] ([id number]) [address], [address] [place] [address] Glucose [Mass/Vol] 84 mg/dL Normal 65-99 [facility] Comment on above: Performed By: #### 3 1, IZAIAH, CBCA #### [facility] ([id number]) [address], [address] [place], [place] [address] Potassium [Moles/Vol] 3.7 mmol/L Normal 3.5-5.0 [facility] Comment on above: Performed By: #### 3 2132-1, CMP, CBCA #### [facility] ([id number]) [address], [address] [place], [place] [address] Protein [Mass/Vol] 6.0 g/dL Normal 6.0-8.0 [facility] Comment on above: Performed By: #### 3 2132-1, CMP, CBCA #### [facility] ([id number]) [address], [address] [place], [place] [address] Sodium [Moles/Vol] 137 mmol/L Normal 134-146 [facility] Comment on above: Performed By: #### 3 3-1, CMP, CBCA #### [facility] ([id number]) [address], [address] [place] [address] Urea nitrogen [Mass/Vol] 5 mg/dL Normal 5-23 [facility] Comment on above: Performed By: #### 3 3-1, CMP, CBCA #### [facility] ([id number]) [address], [address] [place] [address] MAGNESIUMon 02-09-2024 Magnesium [Mass/Vol] 1.6 mg/dL Low 1.8-2.6 [facility] Comment on above: Performed By: #### 3 2132-1, CMP, CBCA #### [facility] ([id number]) [address], [address] [place] [address] PHOSPHORUSon 02-09-2024 Phosphate [Mass/Vol] 4.5 mg/dL Normal 2.4-4.9 [facility] Comment on above: Performed By: #### 3 2132-1, CMP, CBCA #### [facility] ([id number]) [address], [address] [place] [address] US RETROPERITONEAL LIMITEDon 02-09-2024 US RETROPERITONEAL LIMITED [...] Andrade MD on 02/09/2024 10:14 AM Normal [facility] BLOOD CULTUREon 02-08-2024 Bacteria identified Aer cx Nom (Bld) SPECIMEN NOTES SUBOPTIMAL VOLUME OF BLOOD COLLECTED, RESULTS MAY BE AFFECTED. CULTURE RESULTS NO GROWTH 5 DAYS Normal [facility] Comment on above: Performed By: #### 3 2132-1, CMP, CBCA #### [facility] ([id number]) [address], [address] [place] [address] Bacteria identified Aer cx Nom (Bld) SPECIMEN NOTES SUBOPTIMAL VOLUME OF BLOOD COLLECTED, RESULTS MAY BE AFFECTED. CULTURE RESULTS NO GROWTH 5 DAYS Normal [facility] Comment on above: Performed By: #### 1 7928-3 #### [facility] ([id number]) [address], [address] [place] [address] CBC AND AUTO DIFFon 02-08-20 24 ABSOLUTE BASOPHIL 0.0 X10E9/L Normal 0.0-0.2 [facility] Comment on above: Performed By: #### 3 2132-, CMP, CBCA #### [facility] ([id number]) [address], [address] [place] [address] ABSOLUTE NEUTROPHIL 9.5 X10E9/L High 1.5-6.6 [facility] Comment on above: Performed By: #### 3 2132-1, CMP, CBCA #### [facility] ([id number]) [address], [address] [place] [address] Basophils/100 WBC (Bld) 0.0 % Normal [facility] Comment on above: Performed By: #### 3 2132-1, CMP, CBCA #### [facility] ([id number]) [address], [address] [place] [address] Eosinophils (Bld) [#/Vol] 0.0 10*3/uL Normal 0.0-0.4 [facility] Comment on above: Performed By: #### 3 2132-1, CMP, CBCA #### [facility] ([id number]) [address] [address] [place] [address] Eosinophils/100 WBC (Bld) 0.0 % Normal [facility] Comment on above: Performed By: #### 3 2132-1, CMP, CBCA #### [facility] ([id number]) [address] [address] [place] [address] Erythrocyte distribution width (RBC) [Ratio] 14.5 % Normal 11.5-15.0 [facility] Comment on above: Performed By: #### 3 2132-1, CMP, CBCA #### [facility] ([id number]) [address], [facility] [address] [place] [address] Hematocrit (Bld) [Volume fraction] 31.3 % Low 35-47 [facility] Comment on above: Performed By: #### 3 2132-1, CMP, CBCA #### [facility] ([id number]) [address] [address] [place] [address] Hemoglobin (Bld) [Mass/Vol] 10.6 g/dL Low 11.7-15.5 [facility] Comment on above: Performed By: #### 3 2132-1, CMP, CBCA #### [facility] ([id number]) [address] [address] [place] [address] Lymphocytes (Bld) [#/Vol] 1.1 10*3/uL Normal 1.0-3.5 [facility] Comment on above: Performed By: #### 3 2132-1, CMP, CBCA #### [facility] ([id number]) [address], [facility] [address] [place] [address] Lymphocytes/100 WBC (Bld) 9.4 % Normal [facility] Comment on above: Performed By: #### 3 2132-1, CMP, CBCA #### [facility] ([id number]) [address], [address] [place] [address] MCH (RBC) [Entitic mass] 30.8 pg Normal 27-34 [facility] Comment on above: Performed By: #### 3 2132-1, CMP, CBCA #### [facility] ([id number]) [address], [address] [place] [address] MCHC (RBC) [Mass/Vol] 33.9 g/dL Normal 32-36 [facility] Comment on above: Performed By: #### 3 2132-1, CMP, CBCA #### [facility] ([id number]) [address], [address] [place] [address] MCV (RBC) [Entitic vol] 91 fL Normal 80-100 [facility] Comment on above: Performed By: #### 3 2132-1, CMP, CBCA #### [facility] ([id number]) [address], [address] [place] [address] Monocytes (Bld) [#/Vol] 0.9 10*3/uL Normal 0-0.9 [facility] Comment on above: Performed By: #### 3 2132-1, CMP, CBCA #### [facility] ([id number]) [address], [address] [place] [address] Monocytes/100 WBC (Bld) 8.2 % Normal [facility] Comment on above: Performed By: #### 3 2132-1, CMP, CBCA #### [facility] ([id number]) [address], [address] [place] [address] Neutrophils/100 WBC (Bld) 82.4 % Normal [facility] Comment on above: Performed By: #### 3 2132-1, CMP, CBCA #### [facility] ([id number]) [address], [address] [place] [address] Platelet mean volume (Bld) [Entitic vol] 8.5 fL Normal 7-12 [facility] Comment on above: Performed By: #### 3 2132-1, CMP, CBCA #### [facility] ([id number]) [address], [address] [place] [address] Platelets (Bld) [#/Vol] 246 10*3/uL Normal 150-450 [facility] Comment on above: Performed By: #### 3 2132-1, CMP, CBCA #### [facility] ([id number]) [address], [address] [place] [address] RBC COUNT 3.44 X10E12/L Low 3.80-5.20 [facility] Comment on above: Performed By: #### 3 2132-1, CMP, CBCA #### [facility] ([id number]) [address], [facility] [address] [place] [address] WBC (Bld) [#/Vol] 11.5 10*3/uL High 4.0-11.0 [facility] Comment on above: Performed By: #### 3 2132-1, CMP, CBCA #### [facility] ([id number]) [address], [address] [place] [address] COMPREHENSIVE METABOLIC PANE Paco 02-08-2024 Albumin [Mass/Vol] 3.1 g/dL Low 3.2-5.3 [facility] Comment on above: Performed By: #### 3 2132-1, CMP, CBCA #### [facility] ([id number]) [address], [address] [place] [address] ALP [Catalytic activity/Vol] 100 U/L Normal 39-130 [facility] Comment on above: Performed By: #### 3 2132-1, CMP, CBCA #### [facility] ([id number]) [address], [address] [place] [address] ALT [Catalytic activity/Vol] 7 U/L Normal 0-31 [facility] Comment on above: Performed By: #### 3 2132-1, CMP, CBCA #### [facility] ([id number]) [address], [address] [place] [address] Anion gap [Moles/Vol] 12 mmol/L Normal 5-15 [facility] Comment on above: Performed By: #### 3 2132-1, CMP, CBCA #### [facility] ([id number]) [address], [address] [place] [address] AST [Catalytic activity/Vol] 8 U/L Normal 0-41 [facility] Comment on above: Performed By: #### 3 2132-1, CMP, CBCA #### [facility] ([id number]) [address], [address] [place] [address] Bilirubin [Mass/Vol] 0.5 mg/dL Normal 0.3-1.2 [facility] Comment on above: Performed By: #### 3 2132-1, CMP, CBCA #### [facility] ([id number]) [address], [address] [place] [address] Calcium [Mass/Vol] 8.3 mg/dL Low 8.5-10.5 [facility] Comment on above: Performed By: #### 3 2132-1, CMP, CBCA #### [facility] ([id number]) [address], [address] [place] [address] Chloride [Moles/Vol] 104 mmol/L Normal 98-109 [facility] Comment on above: Performed By: #### 3 2132-1, CMP, CBCA #### [facility] ([id number]) [address] [address] [address] [place] [address] CO2 [Moles/Vol] 20 mmol/L Low 22-32 [facility] Comment on above: Performed By: #### 3 2132-1, CMP, CBCA #### [facility] ([id number]) [address] [address] [place] [address] Creatinine [Mass/Vol] 0.53 mg/dL Normal 0.40-1.00 [facility] Comment on above: Result Comment: METH OD TRACEABLE TO IDMS STANDARD Performed By: #### 3 2132-1, IZAIAH, CBCA #### [facility] ([id number]) [address], [address] [place] [address] eGFR (CKD-EPI) NON-RACE DEPENDENT >90 Normal >59 [facility] Comment on above: Result Comment: Reported eGFR is based on the CKD-EPI 2020 equation that does not use a race coefficient. Performed By: #### 3 2132-05, IZAIAH, CBCA #### [facility] ([id number]) [address] [address] [place] [address] Glucose [Mass/Vol] 115 mg/dL High 65-99 [facility] Comment on above: Performed By: #### 3 2132-05, IZAIAH, CBCA #### [facility] ([id number]) [address] [address] [place] [address] Potassium [Moles/Vol] 3.6 mmol/L Normal 3.5-5.0 [facility] Comment on above: Performed By: #### 3 2132-1, CMP, CBCA #### [facility] ([id number]) [address] [address] [place] [address] Protein [Mass/Vol] 6.1 g/dL Normal 6.0-8.0 [facility] Comment on above: Performed By: #### 3 2132-1, CMP, CBCA #### [facility] ([id number]) [address], [address] [place] [address] Sodium [Moles/Vol] 136 mmol/L Normal 134-146 [facility] Comment on above: Performed By: #### 3 2132-1, CMP, CBCA #### [facility] ([id number]) [address], [address] [place] [address] Urea nitrogen [Mass/Vol] 3 mg/dL Low 5-23 [facility] Comment on above: Performed By: #### 3 2132-1, CMP, CBCA #### [facility] ([id number]) [address], [address] [place] [address] DRUG SCREEN, URINEon 024 AMPHETAMINE/METHAMP Negative Normal NEG [facility] Comment on above: Result Comment: AMPH /METH screening cut off = 1000 ng/mL Performed By: #### D GUILLEN #### [facility] ([id number]) [address], [address] [place] [address] BARBITURATES Negative Normal NEG [facility] Comment on above: Result Comment: Megan iturates screening cut off value = 200 ng/mL Performed By: #### D GUILLEN #### [facility] ([id number]) [address], [address] [place] [address] BENZODIAZEPINES Negative Normal NEG [facility] Comment on above: Result Comment: Giorgio odiazepines screening cut off value = 200 ng/mL Performed By: #### D GUILLEN #### [facility] ([id number]) [address], [address] [place] [address] CANNABINOIDS Negative Normal NEG [facility] Comment on above: Result Comment: Elsie abinoids/THC screening cut off value = 50 ng/mL Performed By: #### D GUILLEN #### [facility] ([id number]) [address], [address] [place] [address] COCAINE METABOLITE Negative Normal NEG [facility] Comment on above: Result Comment: Coca ine screening cut off value = 300 ng/mL Performed By: #### D GUILLEN #### [facility] ([id number]) [address], [address] [place] [address] ECSTASY Negative Normal [facility] Comment on above: Result Comment: Ecst asy screening cut off value = 500 ng/mL This report is intended for use in clinical monitoring or management of patients. Performed By: #### D GUILLEN #### [facility] ([id number]) [address] [place] [address] METHADONE Negative Normal [facility] Comment on above: Result Comment: Meth adone screening cut off value = 300 ng/mL. Performed By: #### D GUILLEN #### [facility] ([id number]) [address] [place] [address] OPIATES Negative Normal [facility] Comment on above: Result Comment: Opia joey screening cut off value = 300 ng/mL NOTE: This test is used for the detection of codeine, hydrocodone (>1000 ng/mL), morphine and hydromorphone (>900 ng/mL) in urine. Performed By: #### D GUILLEN #### [facility] ([id number]) [address] [place] [address] OXYCODONE Negative Normal NEG [facility] Comment on above: Result Comment: Oxyc odone screening cut off value = 300 ng/mL NOTE: This test is used for the detection of oxycodone and oxymorphone in urine. Performed By: #### D GUILLEN #### [facility] ([id number]) [address], [address] [place] [address] PHENCYCLIDINE Negative Normal [facility] Comment on above: Result Comment: Phen cyclidine screening cut off value = 25 ng/mL Performed By: #### D GUILLEN #### [facility] ([id number]) [address] [place] [address] Glucose Glucometer (BldC) [M ass/Vol]on 02-08-2024 Glucose [Mass/Vol] 107 mg/dL High 65-99 [facility] Lactate (P melvin) [Moles/Vol]o n 02-08-2024 LACTATE W/REFLEX 1.0 mmol/L Normal 0.4-2.0 [facility] Comment on above: Result Comment: Result did not trigger repeat Lactate, re-order if needed. Performed By: #### 7 5241-0, 01120-9 #### [facility] ([id number]) [address], [address] [place] [address] LACTATE W/REFLEX 0.8 mmol/L Normal 0.4-2.0 [facility] Comment on above: Result Comment: Result did not trigger repeat Lactate, re-order if needed. Performed By: #### 3 2133-1, CMP, CBCA #### [facility] ([id number]) [address], [address] [place] [address] Procalcitonin IA [Mass/Vol]o n 02-08-2024 PROCALCITONIN 0.74 ng/mL High <0.05 [facility] Comment on above: Result Comment: NOTE <0.50 ng/mL - Low risk of severe sepsis and/or septic shock. <2.00 ng/mL - Recommend retesting within 6-24 hours. >2.00 ng/mL - High risk of sepsis and/or septic shock. Performed By: #### 7 5241-0, 77553-2 #### [facility] ([id number]) [address] [place] [address] URINALYSISon 02-08-2024 Bilirubin Ql (U) Negative Normal NEG [facility] Comment on above: Performed By: #### U A #### [facility] ([id number]) [address], [address] [place] [address] BLOOD/HGB Small Abnormal NEG [facility] Comment on above: Performed By: #### U A #### [facility] ([id number]) [address] [place] [address] Color (U) YELLOW Normal YELLOW [facility] Comment on above: Performed By: #### U A #### [facility] ([id number]) [address] [place] [address] Glucose Ql (U) Negative Normal NEG [facility] Comment on above: Performed By: #### U A #### [facility] ([id number]) [address] [place] [address] Ketones Ql (U) 20 mg/dL Abnormal NEG [facility] Comment on above: Performed By: #### U A #### [facility] ([id number]) [address], [address] [place] [address] Leukocyte esterase Test strip Ql (U) Negative Normal NEG [facility] Comment on above: Performed By: #### U A #### [facility] ([id number]) [address] [place] [address] MUCOUS PRESENT Abnormal NONE [facility] Comment on above: Performed By: #### U A #### [facility] ([id number]) [address] [place] [address] Nitrite Ql (U) Negative Normal NEG [facility] Comment on above: Performed By: #### U A #### [facility] ([id number]) [address] [place] [address] pH (U) 8.0 [pH] Normal 5.0-8.5 [facility] Comment on above: Performed By: #### U A #### [facility] ([id number]) [address] [place] [address] Protein Ql (U) Trace Abnormal NEG [facility] Comment on above: Performed By: #### U A #### [facility] ([id number]) [address] [place] [address] R.B.CELLS 16 /hpf High 0-5 [facility] Comment on above: Performed By: #### U A #### [facility] ([id number]) [address] [place] [address] Specific gravity (U) [Rel density] 1.012 Normal 1.003-1.035 [facility] Comment on above: Performed By: #### U A #### [facility] ([id number]) [address] [place] [address] SQUAMOUS EPITHELIUM 1 /hpf Normal 0-5 [facility] Comment on above: Performed By: #### U A #### [facility] ([id number]) [address] [place] [address] TRANSITIONAL EPITH <1 High 0 [facility] Comment on above: Performed By: #### U A #### [facility] ([id number]) [address] [place] [address] TURBIDITY CLEAR Normal CLEAR [facility] Comment on above: Performed By: #### U A #### [facility] ([id number]) [address] [place] [address] Urobilinogen Qn (U) 2 {Blanca'U}/dL High <1.1 [facility] Comment on above: Performed By: #### U A #### [facility] ([id number]) [address] [place] [address] W.B.CELLS 2 /hpf Normal 0-5 [facility] Comment on above: Performed By: #### U A #### [facility] ([id number]) [address] [place] [address] URINE CULTUREon 02-08-2024 Bacteria identified Cx Nom (U) CULTURE RESULTS NO GROWTH AT <1000 CFU/mL Normal [facility] Comment on above: Performed By: #### 3 2133-1, CMP, CBCA #### [facility] ([id number]) [address] [place] [address] XR CHEST 1 VWon 02-08-2024 XR CHEST [...] Rubi MD on 02/08/2024 9:35 AM Normal [facility] URETHRITIS/DISCHARGE PLUS VA GINITIS (HTRX)on 01-27-2024 ATOPOBIUM [...] Healthcare MEGASPHAERA (TYPES 1, 2) Not detected [facility] MYCOPLASMA GENITALIUM 0.000 [facility] MYCOPLASMA GENITALIUM Not detected [facility] NEISSERIA GONORRHOEAE 0.000 [facility] NEISSERIA GONORRHOEAE Not [facility] TRICHOMONAS VAGINALIS 0.000 [facility] TRICHOMONAS VAGINALIS Not detected [facility] e AFP, SERUM, OPEN SPINA BIFID Aon 01-26-2024 AFP MOM 1.08 . [facility] AFP VALUE 35.9 ng/mL . [facility] COMMENT: Comment . [facility] Comment on above: Nette Holley , Ph.D., [facility] Director References: Available Upon Request. Multiples Of Median Cutoffs For AFP Elevations Rao 2.5 Black 2.8 IDD 2.0 Twins 4.5 Abbreviation Definitions IDD - Insulin Dep Diabetes OSBR - Open Spina Bifida Risk For further inquiries contact [employer] at [phone]. This test was developed and its performance characteristics determined by [employer]. It has not been cleared or approved by the Food and Drug Administration. Performed at: [facility] [employer] [facility] [address] [place], [place] [id number] Airplane Technician: Ashley Duggan [facility], Phone: [phone] GEST. AGE ON COLLECTION DATE 17.9 . weeks [facility] GESTAT. AGE BASED ON As provided . [facility] Comment on above: Recalculations are n ot recommended when gestational dating by LMP and ultrasound are within 10 days. INSULIN DEP DIABETES No . [facility] INTERPRETATION Comment . [facility]care Comment on above: Interpretation: Scre en [...] Customer Services to discuss available options. The [employer] recommends amniocentesis be offered to women age 35 and older. [age] [facility] MULTIPLE GESTATION No . [facility] ealthcare OSBR RISK 1 IN 40 . [facility] Healt hcare RACE Other . [facility] RESULTS Report . [facility] TEST RESULTS: Negative . [facility] WEIGHT 225 . lbs [facility] PREGNANY N N ULTRASOUND [id number] [id number] 17 N 1 Y 225 N N N N N White/ [facility] Urinalysis macro (dipstick) panel (U)on 01-24-2024 Bilirubin, UA Negative Negative - 4(70) +++ mg/dL [facility] Blood, UA Negative Negative - 50 Slick/mcL [facility] Healthcare Clarity, UA Clear [facility] re Color, UA Yellow [facility] Glucose, UA Negative Negative - 1999(110) ++++ mg/dL [facility] Interpretation and review of laboratory results Abnormal [facility] Ketones, UA Negative Negative - 160(16) ++++ mg/dL [facility] Leukocytes, UA Trace Negative - 500+++ Mira/mcL [facility] Nitrite, UA Negative Negative - Positive [facility] pH, UA 6.5 5 - 9 [facility] Protein, UA Negative Negative - 1999(20) ++++ mg/dL [facility] Healthcare Spec Grav, UA 1.020 1 - 1.03 [facility] Urobilinogen, UA 1.0 0.2 - 12 mg/dL [facility]inal[facility] macro (dipstick) panel (U)on 01-03-2024 Bilirubin, UA Negative Negative - 4(70) +++ mg/dL [facility] Blood, UA Positive Negative - 50 Slick/mcL [facility] Comment on above: trace Clarity, UA Clear [facility] Color, UA Yellow [facility] Glucose, UA Negative Negative - 1999(110) ++++ mg/dL [facility] Interpretation and review of laboratory results Abnormal [facility] Ketones, UA Negative Negative - 160(16) ++++ mg/dL [facility] Leukocytes, UA Positive Negative - 500+++ Mira/mcL [facility] Comment on above: small Nitrite, UA Negative Negative - Positive [facility] pH, UA 6.0 5 - 9 [facility] Protein, UA Negative Negative - 1999(20) ++++ mg/dL [facility] Spec Grav, UA 1.020 1 - 1.03 [facility] Urobilinogen, UA 0.2 0.2 - 12 mg/dL [facility] No Panel InformationOrdered By: Sanaz Lockwood on 08-18-2023 Quick Strep (POC) [facility] COVID + FLU Quick Testingon 04-27-2023 SARS-CoV-2 (COVID-19) RNA J LUIS+probe Ql (Unsp spec) Negative [facility] [employer] Other COVID + FLU Quick Testing Negative [facility] [employer] Other Quick Strepon 04-27-2023 S. pyogenes Org specific cx Ql (Throat) Negative [facility] [employer] Other Quick Strep [facility] [employer] Other COVID/FLU/RSV RT-PCRon 05-10 SARS-CoV-2 (COVID-19) RNA J LUIS+probe Ql (Unsp spec) Negative [facility] [employer] Other COVID/FLU/RSV RT-PCR Positive [facility] [employer] Other COVID/FLU/RSV RT-PCR Negative [facility] [employer] Other CBC AUTO DIFFon 04-27-2022 BASO # 0.0 103/ul Normal 0.0-0.1 [facility] Comment on above: Performed By: #### C BC #### [facility] [address] [address] [address] Dee Humphrey Basophils/100 WBC (Bld) 0.2 % Normal 0.2-2.0 [facility] Comment on above: Performed By: #### C BC #### [facility] [address] [address] [address] Dee Humphrey EO # 0.1 103/ul Normal 0.0-0.7 [facility] Comment on above: Performed By: #### C BC #### [facility] [address] [address] [address] Dee Humphrey Eosinophils/100 WBC (Bld) 0.6 % Critically low 0.9-7.0 [facility] Comment on above: Performed By: #### C BC #### [facility] [address] [place] [address] Dr. Dee Humphrey Erythrocyte distribution width (RBC) [Ratio] 14.1 % Normal 11.0-15.0 [facility] Comment on above: Performed By: #### C BC #### [facility] [address] [place] [address] Dr. Dee Humphrey Hematocrit (Bld) [Volume fraction] 37.1 % Normal 36.0-48.0 [facility] Comment on above: Performed By: #### C BC #### [facility] [address] [place] [address] Dr. Dee Humphrey Hemoglobin (Bld) [Mass/Vol] 12.4 g/dL Normal 12.0-16.0 [facility] Comment on above: Performed By: #### C BC #### [facility] [address] [place] [address] Dr. Dee Humphrey IG # 0.06 10e3/ul Critically high 0.00-0.03 [facility] Comment on above: Performed By: #### C BC #### [facility] [address] [place] [address] Dr. Dee Humphrey IG % 0.5 % Normal 0.0-0.5 [facility] Comment on above: Performed By: #### C BC #### [facility] [address] [place] [address] Dr. Dee Humphrey LYMPH # 3.7 103/ul Normal 1.2-3.8 [facility] Comment on above: Performed By: #### C BC #### [facility] [address] [place] [address] Dr. Dee Humphrey Lymphocytes/100 WBC (Bld) 28.7 % Normal 20.5-60.0 [facility] Comment on above: Performed By: #### C BC #### [facility] [address] [place] [address] Dr. Dee Humphrey MANUAL DIFF REQ NO Normal [facility] Comment on above: Performed By: #### C BC #### [facility] [address] [address] [address] Dee Humphrey MCH (RBC) [Entitic mass] 30.2 pg Normal 26.7-34.0 [facility] Comment on above: Performed By: #### C BC #### [facility] [address] [address] [address] Dee Humphrey MCHC (RBC) [Mass/Vol] 33.4 g/dL Normal 29.9-35.2 [facility] Comment on above: Performed By: #### C BC #### [facility] [address] [address] [address] Dee Humphrey MCV (RBC) [Entitic vol] 90.5 fL Normal 81.0-99.0 [facility] Comment on above: Performed By: #### C BC #### [facility] [address] [place] [address] Dr. Dee Humphrey MONO # 0.7 103/ul Normal 0.3-0.8 [facility] Comment on above: Performed By: #### C BC #### [facility] [address] [place] [address] Dr. Dee Humphrey Monocytes/100 WBC (Bld) 5.0 % Normal 1.7-12.0 [facility] Comment on above: Performed By: #### C BC #### [facility] [address] [place] [address] Dr. Dee Humphrey NEUT # 8.5 103/ul Critically high 1.4-6.5 [facility] Comment on above: Performed By: #### C BC #### [facility] [address] [place] [address] Dr. Dee Humphrey Neutrophils/100 WBC (Bld) 65.0 % Normal 43.0-75.0 [facility] Comment on above: Performed By: #### C BC #### [facility] [address] [place] [address] Dr. Dee Humphrey Platelet mean volume (Bld) [Entitic vol] 9.6 fL Normal 9.5-13.5 [facility] Comment on above: Performed By: #### C BC #### [facility] [address] [place], [place] [address] Dr. Dee Humphrey PLT 317 103/ul Normal 150-450 [facility] Comment on above: Performed By: #### C BC #### [facility] [address] [place], [place] [address] Dr. Dee Humphrey RBC 4.10 106/ul Critically low 4.20-5.40 [facility] Comment on above: Performed By: #### C BC #### [facility] [address] [place], [place] [address] Dr. Dee Humphrey WBC 13.1 103/ul Critically high 4.0-11.0 [facility] Comment on above: Performed By: #### C BC #### [facility] [address] [place], [place] [address] ABD/PELVIS WO CONon [...] by: ROCIO CHAU Date: 2022-04-27 20:24 Normal [facility] ER URINE PROFILEon 2 Bilirubin Ql (U) Negative Normal NEGATIVE [facility] Comment on above: Performed By: #### P REGU, ERUR #### [facility] [address] [address] [address] Dee Humphrey Clarity (U) CLEAR Normal CLEAR [facility] Comment on above: Performed By: #### P REGU, ERUR #### [facility] [address] [address] [address] Dee Humphrey Color (U) YELLOW Normal YELLOW [facility] Comment on above: Performed By: #### P REGU, ERUR #### [facility] [address] [place] [address] Dr. Dee STANFORD A micrscopic examination will be performed if indicated. Normal [facility] Comment on above: Performed By: #### P REGU, ERUR #### [facility] [address] [address] [address] Dee Humphrey Glucose Ql (U) Negative Normal NEGATIVE [facility] Comment on above: Performed By: #### P REGU, ERUR #### [facility] [address] [place] [address] Dr. Dee Humphrey Hemoglobin Ql (U) Negative Normal NEGATIVE [facility] Comment on above: Performed By: #### P REGU, ERUR #### [facility] [address] [address] [address] Dee Humphrey Ketones Ql (U) Negative Normal NEGATIVE [facility] Comment on above: Performed By: #### P REGU, ERUR #### [facility] [address] [address] [address] Dee Humphrey LEUKOCYTES Negative Normal NEGATIVE [facility] Comment on above: Performed By: #### P REGU, ERUR #### [facility] [address] [place] [address] Dr. Dee Humphrey Nitrite Ql (U) Negative Normal NEGATIVE [facility] Comment on above: Performed By: #### P REGU, ERUR #### [facility] [address] [address] [address] Dee Humphrey pH (U) 5.5 [pH] Normal 5-9 [facility] Comment on above: Performed By: #### P REGU, ERUR #### [facility] [address] [address] [address] Dee Humphrey SPEC GRAVITY >=1.030 Abnormal 1.005-<=1.[address] [place] [address] Comment on above: Performed By: #### P REGU, ERUR #### [facility] [address] [address] [address] Dee Humphrey UA PROTEIN Negative Normal NEGATIVE/ TRACE [facility] Comment on above: Performed By: #### P REGU, ERUR #### [facility] [address] [address] [address] Dee Humphrey UR MICRO IND NOT INDICATED Normal [facility] Comment on above: Performed By: #### P REGU, ERUR #### [facility] [address] [address] [address] Dee Humphrey Urobilinogen Qn (U) 0.2 {Blanca'U}/dL Normal 0.2 - 1. 0 [facility] Comment on above: Performed By: #### P REGU, ERUR #### [facility] [address] [address] [address] Dee Humphrey LIPASEon 04-27-2022 Lipase [Catalytic activity/Vol] 94.0 U/L Normal 73.0-393.0 [facility] Comment on above: Performed By: #### L IPA, CMP #### [facility] [address] [address] [address] Dee Humphrey URon 04-27-2022 , QUAL Negative Normal NEGATIVE [facility] Comment on above: Performed By: #### P REGU, ERUR #### [facility] [address] [place] [address] Dr. Dee Humphrey PROF 14(COMP METB)on 022 Albumin [Mass/Vol] 3.9 g/dL Normal 3.4-5.0 [facility] Comment on above: Performed By: #### L IPA, CMP #### [facility] [address] [address] [address] Dee Humphrey Albumin/Globulin [Mass ratio] 1.0 {ratio} Normal [facility] Comment on above: Performed By: #### L IPA, CMP #### [facility] [address] [address] [address] Dee Humphrey ALP [Catalytic activity/Vol] 87 U/L Normal 46-116 [facility] Comment on above: Performed By: #### L IPA, CMP #### [facility] [address] [address] [address] Dee Humphrey ALT [Catalytic activity/Vol] 31 U/L Normal 14-59 [facility] Comment on above: Performed By: #### L IPA, CMP #### [facility] [address] [address] [address] Dee Humphrey Anion gap [Moles/Vol] 10.8 mmol/L Normal [facility] Comment on above: Performed By: #### L IPA, CMP #### [facility] [address] [address] [address] Dee Humphrey AST [Catalytic activity/Vol] 17 U/L Normal 15-37 [facility] Comment on above: Performed By: #### L IPA, CMP #### [facility] [address] [address] [address] Dee Humphrey Bilirubin [Mass/Vol] 0.1 mg/dL Critically low 0.2-1.0 [facility] Comment on above: Performed By: #### L IPA, CMP #### [facility] [address] [address] [address] Dee Humphrey Calcium [Mass/Vol] 8.9 mg/dL Normal 8.5-10.1 [facility] Comment on above: Performed By: #### L IPA, CMP #### [facility] [address] [address] [address] Dee Humphrey Chloride [Moles/Vol] 103 mmol/L Normal 98-107 [facility] Comment on above: Performed By: #### L IPA, CMP #### [facility] [address] [address] [address] Dee Humphrey CO2 [Moles/Vol] 26.9 mmol/L Normal 21.0-32.0 [facility] Comment on above: Performed By: #### L IPA, CMP #### [facility] [address] [address] [address] Dee Humphrey Creatinine [Mass/Vol] 0.80 mg/dL Normal 0.55-1.02 [facility] Comment on above: Performed By: #### L IPA, CMP #### [facility] [address] [address] [address] Dee Humphrey EGFR-AF KENYAN >60 Normal >=60 [facility] Comment on above: Performed By: #### L IPA, CMP #### [facility] [address] [address] [address] Dee Humphrey EGFR-NON AF KENYAN >60 Normal >=60 [facility] Comment on above: Performed By: #### L IPA, CMP #### [facility] [address] [address] [address] Dee Humphrey Globulin (S) [Mass/Vol] 3.9 g/dL Normal [facility] Comment on above: Performed By: #### L IPA, CMP #### [facility] [address] [address] [address] Dee Humphrey Glucose [Mass/Vol] 96 mg/dL Normal 74-106 [facility] Comment on above: Performed By: #### L IPA, CMP #### [facility] [address] [address] [address] Dee Humphrey Potassium [Moles/Vol] 3.7 mmol/L Normal 3.5-5.1 [facility] Comment on above: Performed By: #### L IPA, CMP #### [facility] [address] [address] [address] Dee Humphrey Protein [Mass/Vol] 7.8 g/dL Normal 6.4-8.2 [facility] Comment on above: Performed By: #### L IPA, CMP #### [facility] [address] [address] [address] Dee Humphrey Sodium [Moles/Vol] 137 mmol/L Normal 136-145 [facility] Comment on above: Performed By: #### L IPA, CMP #### [facility] [address] [place] [address] Dr. Dee Humphrey Urea nitrogen [Mass/Vol] 13.0 mg/dL Normal 7.0-18.0 [facility] Comment on above: Performed By: #### L IPA, CMP #### [facility] [address] [place] [address] Dr. Dee Humphrey Urea nitrogen/Creatinine [Mass ratio] 16.2 mg/mg Normal [facility] Comment on above: Performed By: #### L IPA, CMP #### [facility] [address] [place] [address] Dr. Dee Humphrey CBC AUTO DIFFon 03-07-2022 BASO # 0.0 103/ul Normal 0.0-0.1 [facility] Comment on above: Performed By: #### C BC #### [facility] [address] [place] [address] Dr. Dee Humphrey Basophils/100 WBC (Bld) 0.3 % Normal 0.2-2.0 [facility] Comment on above: Performed By: #### C BC #### [facility] [address] [place] [address] Dr. Dee Humphrey EO # 0.1 103/ul Normal 0.0-0.7 [facility] Comment on above: Performed By: #### C BC #### [facility] [address] [place] [address] Dr. Dee Humphrey Eosinophils/100 WBC (Bld) 0.7 % Critically low 0.9-7.0 [facility] Comment on above: Performed By: #### C BC #### [facility] [address] [place] [address] Dr. Dee Humphrey Erythrocyte distribution width (RBC) [Ratio] 13.0 % Normal 11.0-15.0 [facility] Comment on above: Performed By: #### C BC #### [facility] [address] [place] [address] Dr. Dee Humphrey Hematocrit (Bld) [Volume fraction] 39.2 % Normal 36.0-48.0 [facility] Comment on above: Performed By: #### C BC #### [facility] [address] [place] [address] Dr. Dee Humphrey Hemoglobin (Bld) [Mass/Vol] 13.2 g/dL Normal 12.0-16.0 [facility] Comment on above: Performed By: #### C BC #### [facility] [address] [place] [address] Dr. Dee Humphrey IG # 0.05 10e3/ul Critically high 0.00-0.03 [facility] Comment on above: Performed By: #### C BC #### [facility] [address] [place] [address] Dr. Dee Humphrey IG % 0.5 % Normal 0.0-0.5 [facility] Comment on above: Performed By: #### C BC #### [facility] [address] [place] [address] Dr. Dee Humphrey LYMPH # 4.2 103/ul Critically high 1.2-3.8 [facility] Comment on above: Performed By: #### C BC #### [facility] [address] [place] [address] Dr. Dee Humphrey Lymphocytes/100 WBC (Bld) 43.1 % Normal 20.5-60.0 [facility] Comment on above: Performed By: #### C BC #### [facility] [address] [place] [address] Dr. Dee Humphrey MANUAL DIFF REQ NO Normal [facility] Comment on above: Performed By: #### C BC #### [facility] [address] [place] [address] Dr. Dee Humphrey MCH (RBC) [Entitic mass] 30.5 pg Normal 26.7-34.0 [facility] Comment on above: Performed By: #### C BC #### [facility] [address] [address] [address] Dee Humphrey MCHC (RBC) [Mass/Vol] 33.7 g/dL Normal 29.9-35.2 [facility] Comment on above: Performed By: #### C BC #### [facility] [address] [place] [address] Dr. Dee Humphrey MCV (RBC) [Entitic vol] 90.5 fL Normal 81.0-99.0 [facility] Comment on above: Performed By: #### C BC #### [facility] [address] [place] [address] Dr. Dee Humphrey MONO # 0.4 103/ul Normal 0.3-0.8 [facility] Comment on above: Performed By: #### C BC #### [facility] [address] [place] [address] Dr. Dee Humphrey Monocytes/100 WBC (Bld) 4.4 % Normal 1.7-12.0 [facility] Comment on above: Performed By: #### C BC #### [facility] [address] [place] [address] Dr. Dee Humphrey NEUT # 4.9 103/ul Normal 1.4-6.5 [facility] Comment on above: Performed By: #### C BC #### [facility] [address] [place] [address] Dr. Dee Humphrey Neutrophils/100 WBC (Bld) 51.0 % Normal 43.0-75.0 [facility] Comment on above: Performed By: #### C BC #### [facility] [address] [place] [address] Dr. Dee Humphrey Platelet mean volume (Bld) [Entitic vol] 9.6 fL Normal 9.5-13.5 [facility] Comment on above: Performed By: #### C BC #### [facility] [address] [place] [address] Dr. Dee Humphrey PLT 364 103/ul Normal 150-450 [facility] Comment on above: Performed By: #### C BC #### [facility] [address] [place] [address] Dr. Dee Humphrey RBC 4.33 106/ul Normal 4.20-5.40 [facility] Comment on above: Performed By: #### C BC #### [facility] [address] [place] [address] Dr. Dee Humphrey WBC 9.7 103/ul Normal 4.0-11.0 [facility] Comment on above: Performed By: #### C BC #### [facility] [address] [place] [address] Dr. Dee Humphrey LACTATE/LACTIC ACIDon 2021 Lactate [Moles/Vol] 1.1 mmol/L Normal 0.4-1.9 [facility] Comment on above: Performed By: #### P REGU, ERUR #### [facility] [address] [place] [address] Dr. Dee Humphrey LIPASEon 03-07-2022 Lipase [Catalytic activity/Vol] 79.0 U/L Normal 73.0-393.0 [facility] Comment on above: Performed By: #### C MP, LIPA #### [facility] [address] [place] [address] Dr. Dee Humphrey PROF 14(COMP METB)on 022 Albumin [Mass/Vol] 3.8 g/dL Normal 3.4-5.0 [facility] Comment on above: Performed By: #### C MP, LIPA #### [facility] [address] [place] [address] Dr. Dee Humphrey Albumin/Globulin [Mass ratio] 0.9 {ratio} Normal [facility] Comment on above: Performed By: #### C MP, LIPA #### [facility] [address] [place] [address] Dr. Dee Humphrey ALP [Catalytic activity/Vol] 80 U/L Normal 46-116 [facility] Comment on above: Performed By: #### C MP, LIPA #### [facility] [address] [place] [address] Dr. Dee Humphrey ALT [Catalytic activity/Vol] 27 U/L Normal 14-59 [facility] Comment on above: Performed By: #### C MP, LIPA #### [facility] [address] [place] [address] Dr. Dee Humphrey Anion gap [Moles/Vol] 9.5 mmol/L Normal [facility] Comment on above: Performed By: #### C MP, LIPA #### [facility] [address] [place] [address] Dr. Dee Humphrey AST [Catalytic activity/Vol] 13 U/L Critically low 15-37 [facility] Comment on above: Performed By: #### C MP, LIPA #### [facility] [address] [place] [address] Dr. Dee Humphrey Bilirubin [Mass/Vol] 0.1 mg/dL Critically low 0.2-1.0 [facility] Comment on above: Performed By: #### C MP, LIPA #### [facility] [address] [place] [address] Dr. Dee Humphrey Calcium [Mass/Vol] 9.0 mg/dL Normal 8.5-10.1 [facility] Comment on above: Performed By: #### C MP, LIPA #### [facility] [address] [place] [address] Dr. Dee Humphrey Chloride [Moles/Vol] 103 mmol/L Normal 98-107 [facility] Comment on above: Performed By: #### C MP, LIPA #### [facility] [address] [place] [address] Dr. Dee Humphrey CO2 [Moles/Vol] 27.1 mmol/L Normal 21.0-32.0 [facility] Comment on above: Performed By: #### C MP, LIPA #### [facility] [address] [place] [address] Dr. Dee Humphrey Creatinine [Mass/Vol] 0.86 mg/dL Normal 0.55-1.02 [facility] Comment on above: Performed By: #### C MP, LIPA #### [facility] [address] [place] [address] Dr. Dee Humphrey EGFR-AF KENYAN >60 Normal >=60 [facility] Comment on above: Performed By: #### C MP, LIPA #### [facility] [address] [place] [address] Dr. Dee Humphrey EGFR-NON AF KENYAN >60 Normal >=60 [facility] Comment on above: Performed By: #### C MP, LIPA #### [facility] [address] [place] [address] Dr. Dee Humphrey Globulin (S) [Mass/Vol] 4.1 g/dL Normal [facility] Comment on above: Performed By: #### C MP, LIPA #### [facility] [address] [place] [address] Dr. Dee Humphrey Glucose [Mass/Vol] 99 mg/dL Normal 74-106 [facility] Comment on above: Performed By: #### C MP, LIPA #### [facility] [address] [place] [address] Dr. Dee Humphrey Potassium [Moles/Vol] 3.6 mmol/L Normal 3.5-5.1 [facility] Comment on above: Performed By: #### C MP, LIPA #### [facility] [address] [place] [address] Dr. Dee Humphrey Protein [Mass/Vol] 7.9 g/dL Normal 6.4-8.2 [facility] Comment on above: Performed By: #### C MP, LIPA #### [facility] [address] [place] [address] Dr. Dee Humphrey Sodium [Moles/Vol] 136 mmol/L Normal 136-145 [facility] Comment on above: Performed By: #### C MP, LIPA #### [facility] [address] [place] [address] Dr. Dee Humphrey Urea nitrogen [Mass/Vol] 12.0 mg/dL Normal 7.0-18.0 [facility] Comment on above: Performed By: #### C MP, LIPA #### [facility] [address] [address] [address] Dee Humphrey Urea nitrogen/Creatinine [Mass ratio] 14.0 mg/mg Normal [facility] Comment on above: Performed By: #### C YONIS RODRIGUEZ #### [facility] [id number] Dee Humphrey Consent for COVID Vaccineon 08-09-2020 SARS-CoV-2 (COVID-19) RNA J LUIS+probe Ql (Unsp spec) [id number]:127 Normal [facility] Consent for Treatmenton 07-30 Consent for Treatment [id number] .[id number]:127 [facility] Coding Summary.on 08-07-2020 Coding Summary. CODING DATE: 08/07/2020 FINAL [facility] STATUS: PAYOR: Luzma APC DESCRIPTION [id number] [...] Yana Paredes Date Saved: 08/07/2020 02:46 pm [facility] Ambulatory Clinical Summaryo n 03-25-2020 Ambulatory Clinical Summary {[id number] [facility] Patient Educationon 03-19-20 Patient Education lurasidone [...] ? an antiviral such as ritonavir; ? Ocilla's wort; or ? seizure medicine such as [...] (more content not included)... Normal [facility] Video Visit - Telehealtho n 02-23-2020 [...] interactive video communications from my office using [employer] due to the restrictions of the COVID-19 pandemic. No physical exam was conducted other than those areas of the body visible to telecommunications with the patient located at [address] [place] [address] [phone], with no one else in attendance. If [...] Result Comment: Elec tronically Signed By: Deepa [facility], Maia Montero.mati\Date and Time Signed: 02/22/20 [...] interactive video communications from my office using [employer] due to the restrictions of the COVID-19 pandemic. No physical exam was conducted other than those areas of the body visible to telecommunications with the patient located at [address] [place] [address] [phone], with no one else in attendance. If [...] 01/24/2020 Family History Alcoholism: Father and Sister. Alex (more content not included)... Normal [facility] Comment on above: Result Comment: Elec tronically Signed By: Deepa [facility]\Date and Time Signed: 02/11/20 14:46 EDT [...] interactive video communications from my office using [employer] due to the restrictions of the COVID-19 pandemic. No physical exam was conducted other than those areas of the body visible to telecommunications with the patient located at [address] [place] [address], with no one else in attendance. If [...] - Denies (more content not included)... Normal [facility] Comment on above: Result Comment: Elec tronically Signed By: Deepa [facility], Maia Montero.mati\Date and Time Signed: 02/11/20 [...] interactive video communications from my office using [employer] due to the restrictions of the COVID-19 pandemic. No physical exam was conducted other than those areas of the body visible to telecommunications with the patient located at [address] [place] [address], with no one else in attendance. If [...] Tobacco F (more content not included)... Normal [facility] Comment on above: Result Comment: Elec tronically Signed By: Deepa [facility], Maia Montero.br\Date and Time Signed: 01/29/20 [...] interactive video communications from my office using [employer] due to the restrictions of the COVID-19 pandemic. No physical exam was conducted other than those areas of the body visible to telecommunications with the patient located at [address] [place] [address], with no one else in attendance. If [...] Yes, 09 (more content not included)... Normal [facility] Comment on above: Result Comment: Elec tronically Signed By: Deepa [facility], Maia Ashley\.br\Date and Time Signed: 01/29/20 [...] (more content not included)... Normal [facility] Video Visit - Telehealtho n 01-13-2020 [...] interactive video communications from my office using [employer] due to the restrictions of the COVID-19 pandemic. No physical exam was conducted other than those areas of the body visible to telecommunications with the patient located at [address] [place], [place] [phone], with no one else in attendance. If [...] Tobacco For (more content not included)... Normal [facility] Comment on above: Result Comment: Elec tronically Signed By: Deepa [facility]\Date and Time Signed: 01/13/20 09:40 EDT Patient Educationon 01-13-20 Patient Education aripiprazole (AR i PIP ra hardwicke) Say Lerma [employer] What is the most [...] (more content not included)... Normal [facility] Video Visit - Telehealtho n 01-07-2020 [...] interactive video communications from my office using [employer] due to the restrictions of the COVID-19 pandemic. No physical exam was conducted other than those areas of the body visible to telecommunications with the patient located at [address] [place] [address] [phone], with no one else in attendance. If [...] Use:. N (more content not included)... Normal [facility] Comment on above: Result Comment: Elec tronically Signed By: [facility], Maia Montero.br\Date and Time Signed: 01/07/20 12:38 EDT Video Visit - Telehealtho n 08 Video Visit - Telehealth Start Time 3:00pm [...] interactive video communications from my office using [employer] due to the restrictions of the COVID-19 pandemic. No physical exam was conducted other than those areas of the body visible to telecommunications with the patient located at [address] [place] [phone], with no one else in attendance. If [...] Father and (more content not included)... Normal [facility] Comment on above: Result Comment: Elec tronically Signed By: Deepa [facility]\Date and Time Signed: 12/30/19 13:50 EDT [...] interactive video communications from my office using [employer] due to the restrictions of the COVID-19 pandemic. No physical exam was conducted other than those areas of the body visible to telecommunications with the patient located at [address] [place] [address], with no one else in attendance. If [...] Alcohol U (more content not included)... Normal [facility] Comment on above: Result Comment: Elec tronically Signed By: Deepa [facility], Maia Montero.mati\Date and Time Signed: 12/23/19 16:54 EDT Patient Educationon 12-23-19 Patient Education aripiprazole (AR i KAREN welsh) Say Lerma What is the most [...] (more content not included)... Normal [facility] Video Visit - Telehealtho n 12-04-2019 [...] interactive video communications from my office using [employer] due to the restrictions of the COVID-19 pandemic. No physical exam was conducted other than those areas of the body visible to telecommunications with the patient located at [address] [place], [place] [phone], with no one else in attendance. If [...] Daily, 5 (more content not included)... Normal [facility] Comment on above: Result Comment: Elec tronically Signed By: Deepa [facility], Maia Ashley\.br\Date and Time Signed: 12/04/19 [...] rate, h (more content not included)... Normal [facility] Vital Signs Date Time Vital Sign Value Performing Clinician Facility 05-29-2024 14:35-0500 Body mass index (BMI) [Ratio] 41.3 kg/m2 Johnathan Recinos DO Work Phone: [facility] 05-29-2024 14:35-0500 Body weight 102.42 kg Johnathansalomon Riverao Dada Room Work Phone: [facility] 05-29-2024 14:35-0500 Diastolic blood pressure 82 mm[Hg] Johnathan Jorje DO Work Phone: [facility] 05-29-2024 14:35-0500 Systolic blood pressure 118 mm[Hg] Johnathan Jorje DO Work Phone: [facility] 05-22-2024 14:57-0500 Body mass index (BMI) [Ratio] 41.3 kg/m2 Johnathan Jorje DO Work Phone: [facility] 05-22-2024 14:57-0500 Body weight 102.42 kg Johnathan Jorje DO Work Phone: [facility] 05-22-2024 14:57-0500 Diastolic blood pressure 80 mm[Hg] Johnathan Jorje DO Work Phone: [facility] 05-22-2024 14:57-0500 Systolic blood pressure 110 mm[Hg] Johnathan Jorje DO Work Phone: [facility] 05-13-2024 15:04-0500 Body mass index (BMI) [Ratio] 41.67 kg/m2 Liza Duque PA Work Phone: [facility] 05-13-2024 15:04-0500 Body weight 103.33 kg Liza Kt PA Work Phone: [facility] 05-13-2024 15:04-0500 Diastolic blood pressure 82 mm[Hg] Liza Kt PA Work Phone: [facility] 05-13-2024 15:04-0500 Systolic blood pressure 140 mm[Hg] Liza Kt PA Work Phone: [facility] 04-03-2024 13:59-0500 Body mass index (BMI) [Ratio] 42.07 kg/m2 Johnathan Jorje DO Work Phone: [facility] 04-03-2024 13:59-0500 Body weight 104.33 kg Johnathan Jorje DO Work Phone: [facility] 04-03-2024 13:59-0500 Diastolic blood pressure 78 mm[Hg] Johnathan Jorje DO Work Phone: [facility] 04-03-2024 13:59-0500 Systolic blood pressure 110 mm[Hg] Johnathan Jorje DO Work Phone: [facility] 03-21-2024 14:01-0500 Body mass index (BMI) [Ratio] 41.7 kg/m2 Liza Kt PA Work Phone: [facility] 03-21-2024 14:01-0500 Body weight 103.42 kg Liza Kt PA Work Phone: [facility] 03-21-2024 14:01-0500 Diastolic blood pressure 72 mm[Hg] Liza Kt PA Work Phone: [facility] 03-21-2024 14:01-0500 Systolic blood pressure 112 mm[Hg] Liza Hope PA Work Phone: [facility] 03-11-2024 14:26-0500 Body mass index (BMI) [Ratio] 41.96 kg/m2 Liza Kt PA Work Phone: [facility] 03-11-2024 14:26-0500 Body weight 104.06 kg Liza Hope PA Work Phone: [facility] 03-11-2024 14:26-0500 Diastolic blood pressure 70 mm[Hg] Liza Hope PA Work Phone: [facility] 03-11-2024 14:26-0500 Systolic blood pressure 120 mm[Hg] Liza Hope PA Work Phone: [facility] 03-06-2024 11:20-0500 Body mass index (BMI) [Ratio] 41.34 kg/m2 Johnathan Jorje DO Work Phone: [facility] 03-06-2024 11:20-0500 Body weight 102.51 kg Johnathan Jorje DO Work Phone: [facility] 03-06-2024 11:20-0500 Diastolic blood pressure 68 mm[Hg] Johnathan Jorje DO Work Phone: [facility] 03-06-2024 11:20-0500 Systolic blood pressure 120 mm[Hg] Johnathan Jorje DO Work Phone: [facility] 02-21-2024 13:57-0400 Body mass index (BMI) [Ratio] 41.3 kg/m2 Johnathan Jorje DO Work Phone: [facility] 02-21-2024 13:57-0400 Body weight 102.42 kg Johnathan Jorje DO Work Phone: [facility] 02-21-2024 13:57-0400 Diastolic blood pressure 70 mm[Hg] Johnathan Jorje DO Work Phone: [facility] 02-21-2024 13:57-0400 Systolic blood pressure 100 mm[Hg] Johnathan Jorje DO Work Phone: [facility] 02-15-2024 13:03-0400 Body height 160 cm Malena Cardona MD Work Phone: [facility] 02-15-2024 13:03-0400 Body mass index (BMI) [Ratio] 39.65 kg/m2 Malena Cardona MD Work Phone: [facility] 02-15-2024 13:03-0400 Body weight 101.52 kg Malena Cardona MD Work Phone: [facility] 02-15-2024 13:03-0400 Diastolic blood pressure 74 mm[Hg] Malena Cardona MD Work Phone: [facility] 02-15-2024 13:03-0400 Heart rate 94 /min Malena Cardona MD Work Phone: [facility] 02-15-2024 13:03-0400 Systolic blood pressure 123 mm[Hg] Malena Cardona MD Work Phone: [facility] 01-24-2024 11:57-0400 Body mass index (BMI) [Ratio] 41.15 kg/m2 Johnathan Jorje DO Work Phone: [facility] 01-24-2024 11:57-0400 Body weight 102.06 kg Johnathan Jorje DO Work Phone: [facility] 01-24-2024 11:57-0400 Diastolic blood pressure 78 mm[Hg] Johnathan Jorje DO Work Phone: [facility] 01-24-2024 11:57-0400 Systolic blood pressure 124 mm[Hg] Johnathan Jorje DO Work Phone: [facility] 01-03-2024 15:02-0400 Body mass index (BMI) [Ratio] 42.07 kg/m2 Liza Kt PA Work Phone: [facility] 01-03-2024 15:02-0400 Body weight 104.33 kg Liza Kt PA Work Phone: [facility] 01-03-2024 15:02-0400 Diastolic blood pressure 74 mm[Hg] Liza Kt PA Work Phone: [facility] 01-03-2024 15:02-0400 Systolic blood pressure 122 mm[Hg] Liza Hope PA Work Phone: [facility] 12-25-2023 11:22-0400 Body mass index (BMI) [Ratio] 40.79 kg/m2 Johnathan Jorje DO Work Phone: [facility] 12-25-2023 11:22-0400 Body weight 101.15 kg Johnathan Jorje DO Work Phone: [facility] 12-25-2023 11:22-0400 Diastolic blood pressure 76 mm[Hg] Johnathan Jorje DO Work Phone: [facility] 12-25-2023 11:22-0400 Systolic blood pressure 122 mm[Hg] Johnathan Jorje DO Work Phone: [facility] 08-18-2023 14:24-0400 Body height 160.02 cm [facility] 08-18-2023 14:24-0400 Body mass index (BMI) [Ratio] 40.2 kg/m2 [facility] 08-18-2023 14:24-0400 Body temperature 98.4 [degF] [facility] 08-18-2023 14:24-0400 Body weight 103.02 kg [facility] 08-18-2023 14:24-0400 Diastolic blood pressure 81 mm[Hg] [facility] 08-18-2023 14:24-0400 Heart rate 101 /min [facility] 08-18-2023 14:24-0400 Respiratory rate 16 /min [facility] 08-18-2023 14:24-0400 SaO2% (BldA) [Mass fraction] 98 % [facility] 08-18-2023 14:24-0400 Systolic blood pressure 133 mm[Hg] [facility] 04-27-2023 16:30-0500 Body height 160.02 cm Sanaz Lockwood Other [employer] [facility] [employer] Other 04-27-2023 16:30-0500 Body mass index (BMI) [Ratio] 40.92 kg/m2 Sanaz Lockwood Other [employer] Other 04-27-2023 16:30-0500 Body temperature 98.2 [degF] Sanaz Lockwood Other [employer] Other 04-27-2023 16:30-0500 Body weight 104.78 kg Sanaz Lockwood Other [employer] Other 04-27-2023 16:30-0500 Respiratory rate 18 /min Sanaz Lockwood Other [employer] Other 04-27-2023 16:30-0500 SaO2% (BldA) [Mass fraction] 99 % Sanaz Lockwood Other [employer] Other 05-10-2022 14:45-0500 Body height 160.02 cm Kaylah Han Other [employer] Other 05-10-2022 14:45-0500 Body mass index (BMI) [Ratio] 38.97 kg/m2 Kaylah Han Other [employer] Other 05-10-2022 14:45-0500 Body temperature 99.3 [degF] Kaylah Han Other [employer] Other 05-10-2022 14:45-0500 Body weight 99.79 kg Kaylah Han Other [employer] Other 06-29-2019 22:40-0500 Pulse (Heart Rate) 84 /min [facility] 06-29-2019 22:40-0500 Pulse Oximetry 97 % [facility] 06-29-2019 22:35-0500 BP Diastolic 56 mm[Hg] [facility] 06-29-2019 22:35-0500 BP Systolic 100 mm[Hg] [facility] 06-29-2019 21:11-0500 BMI (Body Mass Index) 33.1 kg/m2 [facility] 06-29-2019 21:11-0500 Body Temperature 97.8 [degF] [facility] 06-29-2019 21:11-0500 Body weight 84.8 kg [facility] 06-29-2019 21:11-0500 Height 160.02 cm [facility] 06-29-2019 21:11-0500 Respiratory Rate 20 /min [facility] Encounters Encounter Date Encounter Type Care Provider Facility Start: 05-30-2024 End: 05-30-2024 Clinisync Result Encounter Johnathan Recinos DO Work Phone: [facility] Unsolicited Start: 05-30-2024 End: 05-30-2024 Clinisync Result Encounter Johnathan Jorje DO Work Phone: [facility] Unsolicited Start: 05-29-2024 End: 05-29-2024 flow sheet Johnathan Jorje DO Work Phone: [...] Work Phone: [facility] Unsolicited Start: 05-22-2024 End: 05-22-2024 [...] Start: 05-13-2024 End: 05-13-2024 flow sheet Liza Duque PA Work Phone: [...] Start: 04-22-2024 End: 04-22-2024 ambulatory Johnathan Jorje Facility:[facility] Start: 04-03-2024 End: 04-03-2024 Bamboo [...] 03-21-2024 flow sheet Liza ANTONIO Work Phone: [facility] Comment on above: Second trimester pre gnancy; 26 weeks gestation of ; Elevated glucose tolerance test; Gestational diabetes mellitus (GDM), antepartum, gestational diabetes method of control unspecified Start: 03-14-2024 End: 03-14-[address] [facility] Start: 03-11-2024 End: 03-11-2024 Bamboo flowsheet [...] hematuria Start: 02-26-2024 End: 02-26-2024 ambulatory MARTIN [facility] Start: 02-21-2024 End: 02-21-2024 Bamboo flowsheet Johnathan [...] Cardona MD Work Phone: [facility] Comment on above: 21 weeks gestation o f (Primary Dx); Multigravida of advanced maternal age in second trimester; Pyelonephritis affecting in second trimester; Bipolar disease during in second trimester ([facility] Obesity affecting in second trimester, unspecified obesity type; BMI 39.0-39.9,adult; History of section complicating ; Vapes nicotine containing substance; Current rao with 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, antepartum; History of delivery, currently Start: 02-15-2024 End: 02-15-2024 Orders Only Flor Lopez RN [facility] Comment on above: 21 weeks gestation o f (Primary Dx); Obesity affecting in second trimester, unspecified obesity type Start: 02-15-2024 End: 02-15-2024 ambulatory JOHNATHAN R [facility] Start: 02-09-2024 End: 02-09-2024 Evaluation and management of inpatient [facility] Start: 02-08-2024 End: 02-09-2024 Evaluation and management of inpatient NATO LLOYD [facility] Start: 01-24-2024 End: 01-24-2024 Bamboo flowsheet Johnathan [...] Not Available Start: 08-18-2023 End: 08-18-2023 ambulatory [facility] Work Phone: Start: 08-18-2023 End: 08-18-2023 Patient encounter procedure [facility] Work Phone: Start: 04-27-2023 End: 04-27-2023 ambulatory Sanaz Lockwood Other [employer] Other Start: 04-27-2023 Office outpatient vi sit 25 minutes Sanaz Lockwood [facility] Start: 05-10-2022 End: 05-10-2022 ambulatory Kaylah Guille Other [employer] Other Start: 05-10-2022 Office outpatient ne w 20 minutes Kaylah Guille [facility] Start: 04-27-2022 End: 04-27-2022 ambulatory KIMBERLYN XIE Facility:[facility] Start: 03-07-2022 End: 03-07-2022 ambulatory KIMBERLYN XIE Facility:[facility] Start: 09-23-[address] JAZIEL HILL Facility :[facility] Start: 06-29-2019 End: 06-29-2019 Emergency department patient visit Kimberlyn Xie [facility] Procedures Date Procedure Procedure Detail Performing Clinician Start: 05-30-2024 US OB BPP W NON-STRESS Johnathan Jorje DO Work Phone: Start: 05-29-2024 ALL CBC WITH AUTO DIFF Johnathan Jorje DO Work Phone: Start: 05-29-2024 Urnls dip stick/tablet rgnt non-auto w/o micrscp Johnathan Jorje DO Work Phone: Start: 05-22-2024 Urnls dip stick/tablet rgnt non-auto w/o micrscp Johnathan Jorje DO Work Phone: Start: 05-13-2024 Urnls dip stick/tablet rgnt non-auto w/o micrscp Liza ANTONIO Work Phone: Start: 04-22-2024 [facility] UA (CLEAN/CATCH) 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 Johnathan Jorje DO Work Phone: [...] Work Phone: Start: 03-06-2024 [facility] UA (CLEAN/CATCH) 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 Johnathan Jorje DO Work Phone: Start: 03-06-2024 Urnls dip stick/tablet rgnt non-auto w/o micrscp Johnathan Jorje DO Work Phone: Start: 02-21-2024 Urnls dip stick/tablet rgnt non-auto w/o micrscp Johnathan Jorje DO Work Phone: Start: 02-15-2024 H/O: section History of section complicating Malena Cardnoa MD Work Phone: Start: 01-24-2024 URETHRITIS/DISCHARGE PLUS VAGINITIS (HTRX) Johnathan Recinos DO Work Phone: Start: 01-24-2024 AFP, SERUM, OPEN SPINA BIFIDA Johnathan Jorje DO Work Phone: Start: 01-24-2024 Urnls dip stick/tablet rgnt non-auto w/o micrscp Johnathan Recinos DO Work Phone: Start: 01-24-2024 Microscopic observation [Identifier] in Cervix by Cyto stain Flor Lopez RN Start: 01-03-2024 Urnls dip stick/tablet rgnt non-auto w/o micrscp Liza ANTONIO Work Phone: Start: 08-18-2023 Quick Strep (POC) Plan of Treatment Date Care Activity Detail Author Start: 01-23-2027 [facility] Start: 02-14-2025 Adult BMI Screening [facility] Start: 02-14-2025 Tobacco Screening Tobacco Screening [facility] Start: 02-14-2025 End: 02-14-2025 US MFM with or without consult US MFM with or without consult Imaging Routine 21 weeks gestation of Obesity affecting in second trimester, unspecified obesity type Expected: 02/14/2025 (Approximate), Expires: 02/14/2025 [facility] Work Phone: Comment on above: Expected: 02/14/2025 (Approximate), Expires: 02/14/2025 Start: 06-11-2024 End: 06-11-2024 Patient encounter procedure 06/11/2024 2:40 PM EST [facility] Visit [facility] [address] [place] [address] Liza Duque PA [address] [place] [address] [facility] Start: 05-29-2024 End: 05-29-2024 Patient encounter procedure 05/29/2024 2:20 PM EST Routine [facility] [address] [place] [phone] Johnathan Recinos, [address] [place] [address] [facility] Start: 05-29-2024 End: 05-29-2025 CULTURE, GROUP B STREP WITH SUSCEPTIBLITY CULTURE, GROUP B STREP WITH SUSCEPTIBLITY Lab Routine Third trimester Expected: 05/29/2024, Expires: 05/29/2025 [facility] Work Phone: Comment on above: Expected: 05/29/2024 , Expires: 05/29/2025 Start: 05-22-2024 End: 05-22-2024 Patient encounter procedure 05/22/2024 2:20 PM EST Routine [facility] [address] [place], [place] [address] [id number] Johnathan Recinos, [address] [place] [address] [facility] Start: 05-13-2024 End: 05-13-2025 [...] Procedure [facility] [address] [place] [phone] [facility] Start: 04-03-2024 End: 04-03-2024 Patient encounter procedure [facility] Comment on above: Arrived Start: 04-03-2024 End: 04-03-2024 Professional / ancillary services management 04/03/2024 1:00 PM EST Ancillary Procedure [facility] [address] [place] [phone] [facility] Start: 03-21-2024 End: 03-21-2025 Measurement of glucose 3 hours after glucose challenge for glucose tolerance test Glucose tolerance, 3 hours Lab Routine Elevated glucose tolerance test Expected: 03/21/2024 (Approximate), Expires: 03/21/2025 [facility] Work Phone: Comment on above: Expected: 03/21/2024 (Approximate), Expires: 03/21/2025 Start: 03-21-2024 End: 03-21-2025 US for US OB SCAN FOR GROWTH Imaging Routine Gestational diabetes mellitus (GDM), antepartum, gestational diabetes method of control unspecified Expected: 03/21/2024 (Approximate), Expires: 03/21/2025 [facility] Comment on above: Expected: 03/21/2024 (Approximate), Expires: 03/21/2025 Start: 03-21-2024 End: 03-21-2024 Patient encounter procedure 03/21/2024 1:30 PM EST Routine [facility] [address] [place] [phone] Liza Duque PA [address] [facility] [place] [address] [facility] Start: 03-14-2024 End: 03-14-2024 Patient encounter procedure 03/14/2024 9:45 AM EST Appointment [facility] [address] [place] [id number] [facility] Start: 02-22-2024 End: 02-22-2024 Patient encounter procedure 02/22/2024 10:15 AM EDT Appointment [facility] [address] [facility] [address] [place] [phone] [facility] Start: 02-21-2024 End: 02-20-2025 CBC panel - Blood by Automated count CBC Lab Routine Diabetes mellitus screening Expected: 02/21/2024 (Approximate), Expires: 02/20/2025 [facility] Work Phone: Comment on above: Expected: 02/21/2024 (Approximate), Expires: 02/20/2025 Start: 02-21-2024 End: 02-20-2025 Measurement of glucose 1 hour after glucose challenge for glucose tolerance test Glucose tolerance, 1 hour Lab Routine Diabetes mellitus screening Expected: 02/21/2024 (Approximate), Expires: 02/20/2025 [facility] Comment on above: Expected: 02/21/2024 (Approximate), Expires: 02/20/2025 Start: 02-21-2024 End: 02-21-2024 Patient encounter procedure 02/21/2024 1:50 PM EDT Routine [facility] [address] [place] [phone] Johnathan Recinos, DO [address] [place], [place] [address] [place] [address] [facility] Start: 01-24-2024 End: 02-23-2024 Alpha fetoprotein, maternal Alpha fetoprotein, maternal Lab Routine 18 weeks gestation of Expected: 01/24/2024 (Approximate), Expires: 02/23/2024 [facility] Comment on above: Expected: 01/24/2024 (Approximate), Expires: 02/23/2024 Start: 01-22-2024 End: 01-22-2024 Patient encounter procedure 01/22/2024 10:20 AM EDT Routine [facility] [address] [facility] [place] [id number] Johnathan Recinos, DO [address] [place], [place] [id number] [facility] Start: 12-31-2023 COVID-19 Vaccine () COVID-19 Vaccine ( season) [facility] Start: 12-31-2023 Influenza vaccination P [facility] Start: 10-11-2021 DTaP,Tdap and Td Vaccines (2 - Td or Tdap) DTaP,Tdap and Td Vaccines (2 - Td or Tdap) [facility] Start: 2017 Screening for malign ant neoplasm of cervix [facility] Start: 2008 Screening for malign ant neoplasm of cervix Pap Smear [facility] Start: 2005 Adult BMI Follow Up Plan Adult BMI Follow Up Plan [facility] Start: 1999 Depression Screening Depression Scre ening [facility] Bacteria identified in Urine by Culture Urine culture Microbiology Routine 24 weeks gestation of Second trimester Ordered: 03/06/2024 [facility] Work Phone: Comment on above: Ordered: 03/06/2024 Bacteria identified in Urine by Culture Urine culture Microbiology Routine Flank pain Acute cystitis with hematuria Urinary tract infection without hematuria, site unspecified Ordered: 04/03/2024 [facility] Work Phone: Comment on above: Ordered: 04/03/2024 CHLAMYDIA TRACHOMATI S (GENITO/STI) CHLAMYDIA TRACHOMATIS (GENITO/STI) Lab Routine Exposure to STD Ordered: 01/24/2024 [facility] Comment on above: Ordered: 01/24/2024 Cytology Cervical or vaginal smear or scraping study Pap Smear Pathology and Cytology Routine Well woman exam with routine gynecological exam Ordered: 01/24/2024 [facility] Comment on above: Ordered: 01/24/2024 Human papilloma viru s DNA [Presence] in Unspecified specimen by Probe with amplification HPV DNA probe, amplified Microbiology Routine Well woman exam with routine gynecological exam Ordered: 01/24/2024 [facility] Comment on above: Ordered: 01/24/2024 Neisseria gonorrhoea e DNA [Presence] in Unspecified specimen by J LUIS with probe detection Neisseria gonorrhea DNA probe, direct Lab Routine Exposure to STD Ordered: 01/24/2024 [facility] Comment on above: Ordered: 01/24/2024 Patient Education Epinephrine (B y injection) Anaphylaxis (ED) General Allergic Reaction (ED) [facility] Patient referral [facility] SURESWAB(R) ADVANCED VAGINITIS PLUS, TMA SURESWAB(R) ADVANCED VAGINITIS PLUS, TMA Pathology and Cytology Routine Vaginal discharge Ordered: 01/24/2024 [facility] Work Phone: Comment on above: Ordered: 01/24/2024 Immunizations Immunization Date Immunization Notes Care Provider Butch sims 06-02-2008 influenza virus vacc ine, unspecified formulation Johnathan Recinos DO Work Phone: [facility] Payers Date Payer Category Payer Self-pay [id number] 2024 Private Health Insurance [facility] [id number] 2024 Medicaid [id number] [address] [facility] er [id number] 2023 [facility] Managed Care - O ANTHEM [id number] 2023 Unknown BCBS BCBS xxxxxx [id number] 2023-Present [phone] [address] [place] [id number] .[id number] 1987 Unknown [id number] 2.16.840.1.745123.3.579.2 .593 1987 Unknown [id number] 2.16.840.1.018951.3.579.2 .593 1987 Unknown [id number] 2.16.840.1.643845.3.579.2 .593 1987 Unknown [id number] 2.16.840.1.406096.3.579.2 .1286 1987 Unknown [id number] 2.16.840.1.070981.3.579.2 .1286 1987 Unknown [id number] 2.16.840.1.198599.3.579.2 .1286 1987 Unknown [id number] 2.16.840.1.780195.3.579.2 .1286 1987 Unknown [id number] 2.16.840.1.398021.3.579.2 .1286 1987 Unknown [id number] 2.16.840.1.944772.3.579.2 .1286 1987 Unknown [id number] 2.16.840.1.041040.3.579.2 .9 1987 Unknown [id number] 2.16.840.1.290262.3.579.2 .9 1987 Unknown [id number] 2.16.840.1.029356.3.579.2 .1258 1987 Unknown [id number] 2.16.840.1.611514.3.579.2 .9 1987 Unknown [id number] 2.16.840.1.632574.3.579.2 .1258 1987 Unknown [id number] 2.16.840.1.338143.3.579.2 .1258 1987 Unknown [id number] 2.16.840.1.012288.3.579.2 .1258 1987 Unknown [id number] 2.16.840.1.751464.3.579.2 .1258 1987 Unknown [id number] 2.16.840.1.622581.3.579.2 .1258 1987 Unknown [id number] 2.16.840.1.281643.3.579.2 .1258 1987 Unknown [id number] 2.16.840.1.572843.3.579.2 .1258 1987 Unknown [id number] 2.16.840.1.940159.3.579.2 .9 1959 Self-pay [id number] 1959 Unknown [id number] Private Health Insurance [id number] Unknown [id number] 2.16.840.1.251237.3.579.2 .531 Social History Date Type Detail Facility Start: 06-29-2019 End: 08-18-2023 Tobacco smoking status NHIS Smoker (finding) [facility] Start: 1985 Sex Assigned At Female [facility] Start: 06-10-2020 End: 02-15-2024 Sex Assigned At [employer] Start: 02-15-2024 Tobacco smoking status [facility] Ex-smoker [facility] Start: 02-15-2024 Tobacco use and exposure Smokeless tobacco non-user [facility] Start: 02-15-2024 Alcoholic beverage intake Lifetime non-drinker (finding) [facility] Start: 06-10-2020 End: 02-15-2024 History of Social function [facility] Childcare Unknown [facility] Start: 02-15-2024 Tobacco Comment PT IS A VAPER [facility] Start: 10-03-2023 [facility] Start: 1987 Sex assigned at Not on file [facility] Start: 12-02-2014 Sex Female (finding) [facility] Start: 02-08-2024 Sexual orientation Heterosexual (finding) [facility] Tobacco smoking stat [facility] Tobacco smoking consumption unknown [facility] Start: 10-26-2023 Gender identity Identifies as female gender (finding) [facility] Medical Equipment Procedure Code Equipment Code Equipment Original Text Equipment Identifier Dates 1 strip by In Vi tro route Daily Use in the morning prior to breakfast, 1 hour after each meal for a total of 4times daily. [id number] Start: 03-25-2024 End: 04-24-2024 1 each by In Vit ro route Daily Use to check FSBS four times daily [id number] Start: 03-25-2024 End: 04-24-2024 Inject 1 each un vickie the skin See administration instructions Use four times daily with insulin pen. [id number] Start: 05-13-2024 End: 06-12-2024 Use as instructed [id number] Start: 05-22-2024 Goals Date Patient Goal Desired Activity /State Personal health goal Comment on above: Formatting of this n ote might be different from the original. Evaluation of progress towards goal: go home today Clinical Notes 12-02-2019 to 05-29-2024 Gayle Hendricks LPN - 05/29/2024 2:20 PM Meghna Hendricks, MANNEQUIN MAKER - 05/22/2024 2:20 PM Claude Guillermo, MANNEQUIN MAKER - 05/13/2024 1:50 PM Meghna Hendricks, MANNEQUIN MAKER - 04/03/2024 1:40 PM EST Note Date [...] 81 mg, Daily Blood Glucose Monitoring Suppl (D-spotflux Glucometer) w/Device kit 1 kit, Does not [...] nursing note reviewed. Exam conducted with a division chair present. Vitals: Estimated body mass index is [...] Johnathan Recinos DO documented in this encounter [facility] 05-22-2024 History of Present illness Narrative [...] nursing note reviewed. Exam conducted with a division chair present. Vitals: Estimated body mass index is [...] Johnathan Recinos DO documented in this encounter [facility] 05-13-2024 History of Present illness Narrative [...] nursing note reviewed. Exam conducted with a division chair present. Vitals: Estimated body mass index is [...] Johnathan Recinos DO documented in this encounter [facility] 04-03-2024 History of Present illness Narrative [...] Medical History: Diagnosis Date Bipolar 1 disorder ([facility]) HISTORY PAST MEDICAL HISTORY SOCIAL HISTORY Past Medical History: Diagnosis Date Bipolar 1 disorder ([facility]) Social History Tobacco Use Smoking status: [...] nursing note reviewed. Exam conducted with a division chair present. Vitals: Estimated body mass index is [...] for routine OB appointment. Documented by Gayle Hendricsk LPN on behalf of: Johnathan Recinos DO documented in this encounter [facility] 03-21-2024 History of Present illness Narrative [...] Medical History: Diagnosis Date Bipolar 1 disorder ([facility]) HISTORY PAST MEDICAL HISTORY SOCIAL HISTORY Past Medical History: Diagnosis Date Bipolar 1 disorder ([facility]) Social History Tobacco Use Smoking status: [...] hour glucose order to have done at [facility]. Patient DECLINES 3 hour gtt and would like to start testing FSBS--Patient will be referred to Diabetic Edu at [facility]. Follow Up: Patient is to return to office in 2 week for routine OB appointment. Documented by Nettei Frazier MA on behalf of: PACO Freed documented in this encounter [facility] 03-11-2024 History of Present illness Narrative [...] nursing note reviewed. Exam conducted with a division chair present. Vitals: Estimated body mass index is [...] of . Nursing will reach out to [facility] to inquire about culture results. Patient does have follow up appointment with Maternal Medicine. Patient to return to clinic in 4 weeks for routine OB appointment. Documented by Barbara Guillermo LPN on behalf of: PACO Freed documented in this encounter [facility] 03-06-2024 History of Present illness Narrative [...] Medical History: Diagnosis Date Bipolar 1 disorder ([facility]) HISTORY PAST MEDICAL HISTORY SOCIAL HISTORY Past Medical History: Diagnosis Date Bipolar 1 disorder ([facility]) Social History Tobacco Use Smoking status: [...] nursing note reviewed. Exam conducted with a division chair present. Vitals: Estimated body mass index is [...] Johnathan Recinos DO documented in this encounter [facility] 02-21-2024 History of Present illness Narrative [...] Medical History: Diagnosis Date Bipolar 1 disorder ([facility]) HISTORY PAST MEDICAL HISTORY SOCIAL HISTORY Past Medical History: Diagnosis Date Bipolar 1 disorder ([facility]) Social History Tobacco Use Smoking status: [...] nursing note reviewed. Exam conducted with a division chair present. Vitals: Estimated body mass index is [...] Johnathan Recinos DO documented in this encounter [facility] 02-15-2024 History of Present illness Narrative [...] Medical History: Diagnosis Date Bipolar 1 disorder ([facility]) Depression PSHIST: Past Surgical History: Procedure Laterality [...] 4. Bipolar disease during in second trimester ([facility]) I reviewed with the patient that [...] of withdrawal and extrapyramidal effects on reviewed. Electric Welder Helper should be notified. Lack of controlled human [...] . For prevention of venous thromboembolism in [id number] groups, pharmacologic thromboprophylaxis should be considered in [...] prevention Cervical length at 22 weeks at [facility] Follow up survey scheduled Serial growth assessments every 4 weeks after the anatomy scan can be done at OB office. ventricles should be measured at each US. If >=10 mm or concern for hydrocephalus refer to [facility]. If you would like [facility] to do the growth US [...] Malena Cardona MD, FACOG (she/hers) Maternal- Medicine [facility] [address] [facility] 1st [place] [address] This document was created with [employer] technology. Though I make every effort to review the dictation as it is transcribed, on occasion the spoken word can be misinterpreted by the technology leading to inappropriate words, phrases, or sentences. This note is addressed to the requesting provider as a consultation for clinical guidance. Specific medical abbreviations are occasionally used and those are generally approved by the [place]?Board of?Obstetrics and?Gynecology?as well as?Jeri s abbreviations. The above plan of care was based solely on the diagnoses for which a consultation was requested. ?More frequent testing may be indicated based on her other medical/obstetrical conditions. The management of other or medical conditions is beyond the scope of requested consultation and will continue to be followed by the primary assistant professor of psychology or primary care provider. Note to patient: [...] yes Have you been seen here at [facility] in a previous ? yes Recent ER visits or hospitalizations? 02/07 kidney and bladder infection Bring blood sugar log or meter with you today? (Please bring them with you for every visit at [facility]) na Flu vaccine (Mar-June)? na Any concerns that you would like me to mention to the provider today? no documented in this encounter [facility] 01-24-2024 History of Present illness Narrative Reason [...] 4 section, pt to be referred to [facility] for level II ultrasound. Pt [...] Johnathan Recinos DO documented in this encounter [facility] 01-03-2024 History of Present illness Narrative [...] Medical History: Diagnosis Date Bipolar 1 disorder ([facility]) HISTORY PAST MEDICAL HISTORY SOCIAL HISTORY Past Medical History: Diagnosis Date Bipolar 1 disorder ([facility]) Social History Tobacco Use Smoking status: [...] of: PACO Freed documented in this encounter [facility] 12-25-2023 History of Present illness Narrative [...] Medical History: Diagnosis Date Bipolar 1 disorder ([facility]) HISTORY PAST MEDICAL HISTORY SOCIAL HISTORY Past Medical History: Diagnosis Date Bipolar 1 disorder ([facility]) Social History Tobacco Use Smoking status: [...] nursing note reviewed. Exam conducted with a division chair present. Vitals: Estimated body mass index is [...] or undercooked meat, and stay away from [facility]. Patient has been consulted regarding any further do's and don'ts of . Patient voiced understanding and all questions and concerns were answered. Patient complaints of nausea not helped by oral medications. Patient will have referral to [facility] for Zofran pump. Patient aware that [employer] will reach out to her to initiate therapy. Follow Up: Patient is to return in 4 weeks for routine OB appointment. Documented by Barbara Guillermo LPN on behalf of: Liza Duque PA-C documented in this encounter [facility] 04-27-2023 Evaluation note Encounter Date Diagnosis [...] condition. Mar, Sore throat (ICD-10 - J02.9) [employer] 01-10-2023 Evaluation note* Encounter Date Diagnosis [...] weeks for the cough to go away [employer] [facility] 11-07-2022 NoteIndication: Abdominal pain. Comparison: None [...] only communication with the patient located at [address] [place] [phone], with no one else. If it is determined that the patientshould be evaluated in person, the patient will be directed to the appropriate clinic or venue. Thepatient or their guardian verbally consented to this visit. Phone time was 15 minutes discussing health issues with counseling and coordination of care. Subjective Interval History/HPI Patient presents today for follow up via telehealth phone from [facility]. Patient started Latuda 20mg last evening [...] anxiety, # 30 tab(s), Refills(s) 2, Pharmacy: [facility]/pharmacy #[id number], 161, cm, 12/23/19 10:18:00 EDT, Height/Length Dosing, 82, kg, 12/23/19 10:18:00 EDT, Weight Dosing Orders: lurasidone, 20 mg = 1 tab(s), Oral, Daily, with 350 calories; begin this dose first then progress to next dose of 40mg, X 1 week(s), # 7 tab(s), Refills(s) 0, Pharmacy: [facility]/pharmacy #[id number], 161, cm, 12/23/19 10:18:00 EDT, Height/Length Dosing, 82, kg, 12/23/19 10:... lurasidone, 40 mg = 1 tab(s), Oral, Daily, with 350 calories, # 30 tab(s), Refills(s) 1, Pharmacy: [facility]/pharmacy #[id number], 161, cm, 12/23/19 10:18:00 EDT, Height/Length Dosing, 82, kg, 12/23/19 10:18:00 EDT, Weight Dosing General Treatment Plan Maintain medication regimen _Improve mood stability _Improve anxiety control _Improve social and interpersonal functioning Clinical Global Impression 60 Prognosis progressing Follow-up With When Contact Information Carlota RODRIGUZE CNP In 4 weeks Additional Instructions: Problem List/Past Medical History Ongoing Bipolar 1 disorder Fatigue BOB (generalized anxiety disorder) Hidr (more content not included)...[facility] Result Comment: Electronically Signed By: Carlota RODRIGUEZ CNP\.br\Date and Time Signed: 03/19/20 14:27 [id number] NoteI Staff This visit was conducted via two-way, real-time interactive video communications from my office using [employer] due to the restrictions of the COVID-19 pandemic. No physical exam was conducted other than those areas of the body visible to telecommunications with the patient located at [address] [place] [address], with no one else in attendance. If [...] Ordered: TELEHEALTH Office Visit Level 3 Est 58575 General Treatment Plan Maintain medication regimen _Improve [...] Employed, 03/18/2019 Home/Environment [employer] (more content not included)...[facility]: Result Comment: Electronically Signed By: Carlota RODRIGUEZ CNP\harshil\Date and Time Signed: 03/05/20 13:32 [id number] NoteI Staff This visit was conducted via two-way, real-time interactive video communications from my office using [employer] due to the restrictions of the COVID-19 pandemic. No physical exam was conducted other than those areas of the body visible to telecommunications with the patient located at [address] [place] [phone], with no one else in attendance. If [...] tab(s), Refills(s) 1, [id number], cm, 12/23/19 10:18:00 EDT, Height/Length Dosing, 82, kg, 12/23/19 10:18:00 EDT, Weight Dosing alprazolam, 0.5 mg = 1 tab(s), Oral, TID, PRN for anxiety, # 30 tab(s), Refills(s) 1, [id number], 161, cm, 12/23/19 10:18:00 EDT, Height/Length Dosing, 82, kg, 12/23/19 10:18:00 EDT, Weight Dosing aripiprazole, See Instructions, 1.5 tab po qAM, # 30 tab(s), Refills(s) 2, [id number] 161, cm, 12/23/19 10:18:00 EDT, Height/Length Dosing, 82, kg, 12/23/19 10:18:00 EDT, Weight Dosing aripiprazole, See Instructions, 1 tab po qAM, # 30 tab(s), Refills(s) 5, [id number] 161, cm, 12/23/19 10:18:00 EDT, Height/Length Dosing, 82, kg, 12/23/19 10:18:00 EDT, Weight Dosing cyclobenzaprine, 10 mg = 1 tab(s), Oral, TID, PRN for spasm, # 30 tab(s), Refills(s) 1, [id number] 161, cm, 06/13/19 14:39:00 EST, Height/Length [...] 4 weeks Additional Instructions: (more content not included)...[facility]:Result Comment: Electronically Signed By: Carlota RODRIGUEZ CNP\.br\Date and Time Signed: 01/27/20 22:35 [id number] NoteI Staff This visit was conducted via two-way, real-time interactive video communications from my office using [employer] due to the restrictions of the COVID-19 pandemic. No physical exam was conducted other than those areas of the body visible to telecommunications with the patient located at [address] [place] [address], with no one else in attendance. If [...] Ordered: TELEHEALTH Office Visit Level 3 Est 07064 General Treatment Plan Maintain medication regimen _Improve [...] Use:. Never Smokeless Tob (more content not included)...[facility]:Result Comment: Electronically Signed By: Carlota RODRIGUEZ CNP\.mati\Date and Time Signed: 01/13/20 09:11 [id number] NoteI Staff This visit was conducted via two-way, real-time interactive video communications from my office using [employer] due to the restrictions of the COVID-19 pandemic. No physical exam was conducted other than those areas of the body visible to telecommunications with the patient located at [address] [place] [address], with no one else in attendance. If [...] anxiety, # 30 tab(s), Refills(s) 1, Pharmacy: [facility]/pharmacy #[id number], 161, cm, 12/23/19 10:18:00 EDT, Height/Length Dosing, 82, kg, 12/23/19 10:18:00 EDT, Weight Dosing alprazolam, 0.5 mg = 1 tab(s), Oral, TID, PRN for anxiety, # 30 tab(s), Refills(s) 1, [id number] 161, cm, 06/13/19 14:39:00 EST, Height/Length Measured, 82, kg, 06/13/19 14:39:00 EST, Weight Measured aripiprazole, See Instructions, 1 tab po qAM, # 30 tab(s), Refills(s) 0, Pharmacy: [facility]/pharmacy #[id number], 161, cm, 12/23/19 10:18:00 [...] Allergies Bactrim Social History (more content not included)...[facility]:Result Comment: Electronically Signed By: Carlota RODRIGUEZ CNP\.br\Date and Time Signed: 12/23/19 16:37 [id number] NoteI Staff This visit was conducted via two-way, real-time interactive video communications from my office using [employer] due to the restrictions of the COVID-19 pandemic. No physical exam was conducted other than those areas of the body visible to telecommunications with the patient located at [address] [place] [phone], with no one else in attendance. If [...] q24hr, # 30 tab(s), Refills(s) 2, Pharmacy: [facility]/pharmacy #[id number],161, cm, 06/13/19 14:39:00 EST, Height/Length Measured, 82, kg, 06/13/19 14:39:00 EST, Weight Measured cyclobenzaprine, 10 mg = 1 tab(s), Oral, TID, PRN for spasm, # 30 tab(s), Refills(s) 1, Pharmacy: [facility]/pharmacy #[id number], 161, cm, 06/13/19 14:39:00 [...] Employment/School Employed, 03/18/2019 Home/Environment (more content not included)...[facility]:Result Comment: Electronically Signed By: Carlota RODRIGUEZ CNP\harshil\Date and Time Signed: 12/02/19 16:38 EDTChief complaint+Reason for visit Narrative* Chief Complaint Nausea, diarrhea, fe zhou Reason for Visit Contact with and (guillen spected) exposure to covid-19 Sore throat [facility] Work Phone: Evaluation note* Diagnosis Onset Date Resolution Status Contact with and (suspected) exposure to covid-19 noneactive Sore throat noneactive [facility] Work Phone: Evaluation note* Diagnosis 21 weeks gestation of - Primary Obesity affecting in second trimester, unspecified obesity type [facility] of - Primary Multigravida of advanced maternal age in second trimester Pyelonephritis affecting in second trimester Bipolar disease during in second trimester ([facility]) Obesity affecting in second trimester, unspecified obesity type BMI 39.0-39.9,adult History of section complicating Previous delivery, unspecified as to episode of care or not applicable Vapes nicotine containing substance Current rao with 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 * Preeclampsia (Syrian) * [facility] ([place] Directives Advance Directive Response Recorded Date/ [...] may need to be seen by an pinion and wheel truer if you have other events like this without definite egg exposure. Summary Purpose Family History Relationship Condition Age at Onset Recorded Date/T alo father Diabetes mellitus Unknown Hypertension Unknown Additional Source Comments INFORMATION SOURCE (unrecogn ized section and content) DATE CREATED AUTHOR 10/30/2020 [facility] DATE CREATED AUTHOR AUTHOR'S ORGANIZ ATION 04/29/2022 [facility] DATE CREATED AUTHOR AUTHOR'S ORGANIZ ATION 03/16/2024 [facility] DATE CREATED AUTHOR AUTHOR'S ORGANIZ ATION 04/25/2024 [facility] DATE CREATED AUTHOR AUTHOR'S ORGANIZ ATION 05/24/2024 [facility] EPIC REASON FOR VISIT [...] August 18, 2023 End: August 18, 2023 [employer] Relationship Specialty Start Date End Date No Pcp, [place] [id number] PCP - General Family Medicine 11/12/19 [employer] Relationship Specialty Start Date End Date No Pcp, [place] [address] PCP - General Family Medicine 03/12/19 Goals [...] BE BASED ON THE PRIMARY CLINICAL RECORDS. [employer] [facility]. provides no warranty or guarantee of the accuracy or completeness of information in this document.
--- NOTE | 2024-05-31 13:09 | US_ITS ---
[address] [address] Patient Name: PROSPER RUIZ MRN: [id number] date: 1985 Sex: F Assigned Patient Location: [facility] Current Patient Location: [facility] Accession/Order Number: [id number] Exam Date: 05/31/2024 13:15 Report Date: 05/31/2024 13:55 At the request of: GUERRERO DUQUE Procedure: US OB BPP w non-stress EXAMINATION: US OB BPP w non-stress HISTORY: ELEVATED BLOOD PRESSURE O16.3 COMPARISON: No relevant comparison available. TECHNIQUE: Ultrasound biophysical profile was performed in the radiology department. non-reactive stress testing was performed by nursing staff in the birthing center. FINDINGS: BREATHING MOVEMENTS: 2 GROSS BODY MOVEMENTS: 2 TONE: 2 QUALITATIVE AMNIOTIC FLUID VOLUME: 2 PRESENTATION: CEPHALIC HEART RATE: 133.66 bpm AMNIOTIC FLUID VOLUME: 17.0 GESTATIONAL AGE: 36 weeks 3 days US/US OB BPP w non-stress IMPRESSION: Total biophysical profile score: 8 Electronically authenticated by: [employer] [place] Date: 05/31/2024 13:55
[2024-05-31 13:44] VITALS: BP 100/55; PULSE 95
== END 2024-05-31 14:16 | disposition home or self-care (01) ==
LOC: US 01:10 → FBC 13:06
PROVIDERS: PCP Nurse Practitioner Family; Visit Provider Physician Assistant
DX: O16.3 Unspecified maternal hypertension, third trimester (principal); O24.419 Gestational diabetes mellitus in pregnancy, unspecified control; Z3A.36 36 weeks gestation of pregnancy
CPT/HCPCS: 76818

== ENCOUNTER 2024-06-04 10:20 | Inpatient (IN) | payer BC, OTHER, SELFPAY ==
[2024-06-04] VITALS (32 sets, daily range): BP systolic 104–145; BP diastolic 4–86; PULSE 60–120; TEMP 36.2–36.7; O2SAT 97–100
--- OUTSIDE RECORDS SUMMARY | 2024-06-04 10:25 | XMS_ITS | CCD ---
Author Organization [facility] Care Team Providers Care Seismograph Computer Name Role Phone Kimberlyn Xie Primary Care [...] JOHNATHAN Attending Unavailable LIZA DUQUE Attending Unavailable LIZA DUQUE Attending Unavailable JOHNATHAN RECINOS Attending Unavailable LIZA DUQUE Attending Unavailable Unavailable Unavailable Unavailable Allergies Allergy Classification Reported Allergen(s) Allergy Type Date of Onset Reaction(s) Facility (3 sources) egg extract; 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: [egg] Drug Allergy 08-18-19 24 Vomiting [facility] (20 sources) Sulfamethoxazole; 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: [SULFAMETHOXAZOLE] Drug Allergy 08-18-19 [facility] (20 sources) Trimethoprim; 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: [TRIMETHOPRIM] Drug Allergy 08-18-19 24 [facility] (3 sources) Fish Containing Products; 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: [Fish Containing Products] Propensity to adverse reactions 08-18-19 Difficulty Breathing [facility] (1 source) Sulfamethoxazole / Trimethoprim Drug Allergy 02-04-20 13 [facility] Repository (20 sources) Sulfamethoxazole / Trimethoprim Drug Allergy 11-24-19 24 hiv, [facility] [employer] Other (20 sources) Egg-Derived Products Drug Allergy [...] (six) hours as needed for pain. Active [id number] 200 actuat albuterol 0.09 mg/actuat metered dose [...] Glucose Monitoring Suppl (D-Care Glucometer) w/Device kit (17 sources) Start: 03-25-2024 End: 03-25-2025 Blood Glucose [...] oral tablet (1 source) alpha-Adrenergic Agonist, Uncompetitive S-tgjvxz-I-aspartate Receptor Antagonist, Sigma-1 Agonist Start: 04-27-2023 take 4 tablets by mouth every twenty-four hours as needed Capmist DM 60-15-400 MG as needed Orally every 4-6 hours as needed, max 4 tablets in 24 hours for 5 days Mar, Active [id number] 0.3 ml EPINEPHrine 1 mg/ml auto-injector (2 [...] insulin isophane, human 100 unt/ml injectable suspension (8 sources) Start: 05-22-2024 inject 10 [IU] by [...] insulin, regular, human 100 unt/ml injectable solution (8 sources) Insulin Start: 05-22-2024 End: 06-21-2024 inject [...] Active isopropyl alcohol 0.7 ml/ml medicated pad (17 sources) Start: 03-25-2024 Alcohol Swabs (Alcohol Prep [...] tablet (20 sources) Phenothiazine Start: 03-25-20 End: 02-23-20 25 take 1 tablet by mouth every six [...] 18, 2023 12:00am take 1 capsule by [facility] every twenty-four hours in the [...] Hypertension complicating ; childbirth and the puerperium (13 sources) Elevated blood pressure; 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: [Unspecified maternal [...] 03-09-2022 Episodic Other aftercare (1 source) Other buttermaker helper (current) drug therapy; 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: [OTH RESIDENTIAL CURRENT [...] of ] 03-21-2024 Episodic Residual codes; unclassified (18 sources) Gestation period, 28 weeks; 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: [28 weeks gestation of ] Onset: 04-03-2024 04-03-2024 Episodic Residual codes; unclassified (2 sources) Gestation period, 18 weeks; 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: [18 weeks gestation of ] 01-24-2024 Episodic Residual codes; unclassified (13 sources) Gestation period, 33 weeks; Translations: [33 [...] Facility US OB BPP W NON-STRESS on 05-31-[address] [address] Ultrasound Report Signed Patient: PROSPER RUIZ MR#: [id number] : 1985 Acct:[id number] Age/Sex: 39 / F ADM Date: 05/31/24 Loc: [facility] 250-[address]: Liza Duque Ordering Physician: Liza Duque Date of Service: 05/31/24 Procedure(s): US OB BPP w non-stress Accession Number(s): [id number] cc: KIMBERLYN Watts The [address] [address] Patient Name: PROSPER RUIZ MRN: [facility]:[id number] date: 1985 Sex: F Assigned Patient Location: [facility] Current Patient Location: [facility] Accession/Order Number: [id number] Exam Date: 05/31/2024 13:15 Report Date: 05/31/2024 13:55 At the request of: LIZA DUQUE Procedure: US OB BPP w non-stress EXAMINATION: US OB BPP w non-stress HISTORY: ELEVATED BLOOD PRESSURE O16.3 COMPARISON: No relevant comparison available. TECHNIQUE: Ultrasound biophysical profile was performed in the radiology department. non-reactive stress testing was performed by nursing staff in the birthing center. FINDINGS: BREATHING MOVEMENTS: 2 GROSS BODY MOVEMENTS: 2 TONE: 2 QUALITATIVE AMNIOTIC FLUID VOLUME: 2 PRESENTATION: CEPHALIC HEART RATE: 133.66 bpm AMNIOTIC FLUID VOLUME: 17.0 GESTATIONAL AGE: 36 weeks 3 days US/US OB BPP w non-stress IMPRESSION: Total biophysical profile score: 8 Electronically authenticated by: NATO BUTTERFIELD Date: 05/31/2024 13:55 Dictated By: Nato Butterfield M.D. Signed By: 05/31/24 1357 DD/ 1355 TD/TT: Job Press Operator: [facility] Radiology, Radiologist, MD - 05/31/2024 [place] [address] Ultrasound Report Signed Patient: PROSPER RUIZ MR#: [id number] : 1985 Acct:[id number] Age/Sex: 39 / F ADM Date: 05/31/24 Loc: [facility] 250-[address]: Liza Duque Ordering Physician: Liza Duque Date of Service: 05/31/24 Procedure(s): US OB BPP w non-stress Accession Number(s): [id number] cc: Liza XIE,KIMBERLYN [address] [id number] Patient Name: PROSPER RUIZ MRN: [facility]:[id number] date: 1985 Sex: F Assigned Patient Location: [facility] Current Patient Location: [facility] Accession/Order Number: [id number] Exam Date: 05/31/2024 13:15 Report Date: 05/31/2024 13:55 At the request of: LIZA DUQUE Procedure: US OB BPP w non-stress EXAMINATION: US OB BPP w non-stress HISTORY: ELEVATED BLOOD PRESSURE O16.3 COMPARISON: No relevant comparison available. TECHNIQUE: Ultrasound biophysical profile was performed in the radiology department. non-reactive stress testing was performed by nursing staff in the birthing center. FINDINGS: BREATHING MOVEMENTS: 2 GROSS BODY MOVEMENTS: 2 TONE: 2 QUALITATIVE AMNIOTIC FLUID VOLUME: 2 PRESENTATION: CEPHALIC HEART RATE: 133.66 bpm AMNIOTIC FLUID VOLUME: 17.0 GESTATIONAL AGE: 36 weeks 3 days US/US OB BPP w non-stress IMPRESSION: Total biophysical profile score: 8 Electronically authenticated by: NATO BUTTERFIELD Date: 05/31/2024 13:55 Dictated By: Nato Butterfield M.D. Signed By: 05/31/241356 DD/ 54 TD/TT: Job Press Operator: [facility] Radiology Study observation (narrative) [facility] US OB BPP W NON-STRESS Ordered By: Radiologist [facility]: US OB BPP W NON-STRESS on 05-30-2024 [place] [address] Ultrasound Report Signed Patient: PROSPER RUIZ MR#: [id number] : 1985 Acct:[id number] Age/Sex: 39 / F ADM Date: Loc: [facility] 250-[address]: Johnathan Recinos D.O. Ordering Physician: Johnathan Recinos D.O. Date of Service: 05/29/24 Procedure(s): US OB BPP w non-stress Accession Number(s): [id number] cc: KIMBERLYN XIE ; Johnathan Recinos D.O. The [address] [address] Patient Name: PROSPER RUIZ MRN: [facility]:[id number] date: 1985 Sex: F Assigned Patient Location: [facility] Current Patient Location: Accession/Order Number: [id number] Exam Date: 05/29/2024 15:40 Report Date: 05/30/2024 [...] M.D. Signed By: 05/30/24621 DD/ 8 TD/TT: Job Press Operator: [facility] Radiology, Radiologist, MD - 05/30/2024 [place] [address] Ultrasound Report Signed Patient: PROSPER RUIZ MR#: [id number] : 1985 Acct:[id number] Age/Sex: 39 / F ADM Date: Loc: [facility] Attending Dr: Johnathan Recinos D.O. Ordering Physician: Johnathan Recinos D.O. Date of Service: 05/29/24 Procedure(s): US OB BPP w non-stress Accession Number(s): [id number] cc: KIMBERLYN XIE ; Johnathan Recinos D.O. [address] [address] Patient Name: PROSPER RUIZ MRN: [facility]:[id number] date: 1985 Sex: F Assigned Patient Location: [facility] Current Patient Location: Accession/Order Number: [id number] Exam Date: 05/29/2024 15:40 Report Date: 05/30/2024 [...] M.D. Signed By: 05/30/24621 DD/ 8 TD/TT: Job Press Operator: [facility] Radiology Study observation (narrative) [facility] OB BPP W NON-STRESS Ordered By: Radiologist Radiology on [facility]30[facility] Work Phone: ALL CBC WITH AUTO DIFFon BASOPHILS ABSOLUTE AUTO 0 [facility] Basophils/100 WBC (Bld) 0.3 % 0.2 - 2.0 % [facility] Eosinophils/100 WBC (Bld) 0.5 % Low 0.9 - 7.0 % [facility] Erythrocyte distribution width (RBC) [Ratio] 13.2 % 11.0 - 15.0 % [facility] Hematocrit (Bld) [Volume fraction] 33.4 % Low 36.0 - 48.0 % [facility] Hemoglobin (Bld) [Mass/Vol] 10.9 g/dL Low 12.0 - 16.0 g/dL [facility] IMMATURE GRANULOCYTES ABS AUTO 0.03 [facility] Immature granulocytes/100 WBC (Bld) 0.4 % 0.0 - 0.5 % [facility] Interpretation and review of laboratory results Abnormal [facility] LYMPHOCYTES ABSOLUTE AUTO 1.5 [facility] Lymphocytes/100 WBC (Bld) 20.7 % 20.5 - 60.0 % [facility] MCH (RBC) [Entitic mass] 29.1 pg 26.7 - 34.0 pg [facility] MCHC (RBC) [Mass/Vol] 32.6 g/dL 29.9 - 35.2 g/dL [facility] MCV (RBC) [Entitic vol] 89.1 fL 81.0 - 99.0 fL [facility] MONOCYTES ABSOLUTE AUTO 0.4 [facility] Monocytes/100 WBC (Bld) 5.8 % 1.7 - 12.0 % [facility] NEUTROPHILS ABSOLUTE AUTO 5.4 [facility] Neutrophils/100 WBC (Bld) 72.3 % 43.0 - 75.0 % [facility] Platelet mean volume (Bld) [Entitic vol] 11.2 fL 9.5 - 13.5 fL [facility] TBH EO # 0 [facility] TB PLT 269 [facility] e TB RBC 3.75 Low [facility] Health[facility] e TB WBC 7.4 [facility] e [facility] Urinalysis macro (dipstick) panel (U)on 05-29-2024 Bilirubin, UA Negative Negative - 4(70) +++ mg/dL [facility] Blood, UA Negative Negative - 50 Slick/mcL [facility] Clarity, UA Clear [facility] re Color, UA Yellow [facility] e Glucose, UA Negative Negative - 1999(110) ++++ mg/dL [facility] Interpretation and review of laboratory results Normal [facility] Ketones, UA Negative Negative - 160(16) ++++ mg/dL [facility] Leukocytes, UA Negative Negative - 500+++ Mira/mcL [facility] Nitrite, UA Negative Negative - Positive [facility] pH, UA 6 5 - 9 [facility] e Protein, UA Negative Negative - 1999(20) ++++ mg/dL [facility] Spec Grav, UA 1.015 1 - 1.03 [facility] Urobilinogen, UA 0.2 0.2 - 12 mg/dL [facility] Urinalysis macro (dipstick) panel (U)on 05-22-2024 Bilirubin, UA Negative Negative - 4(70) +++ mg/dL [facility] Blood, UA Negative Negative - 50 Slick/mcL [facility] Clarity, UA Clear [facility] Color, UA Yellow [facility] Glucose, UA Negative Negative - 1999(110) ++++ mg/dL [facility] Interpretation and review of laboratory results Abnormal [facility] Healthcare Ketones, UA Negative Negative - 160(16) ++++ mg/dL [facility] Healthcare Leukocytes, UA Trace Negative - 500+++ Mira/mcL [facility] Nitrite, UA Negative Negative - Positive [facility] pH, UA 6 5 - 9 [facility] Protein, UA Trace Negative - 1999(20) ++++ mg/dL [facility] Spec Grav, UA 1.015 1 - 1.03 [facility] Urobilinogen, UA 0.2 0.2 - 12 mg/dL [facility] Urinalysis macro (dipstick) panel (U)on 05-13-2024 Bilirubin, UA Negative Negative - 4(70) +++ mg/dL [facility] Blood, UA Positive Negative - 50 Slick/mcL [facility] Healthcare Comment on above: trace Clarity, UA Clear [facility] Color, UA Yellow [facility] Glucose, UA Negative Negative - 1999(110) ++++ mg/dL [facility] Interpretation and review of laboratory results Abnormal [facility] Healthcare Ketones, UA Negative Negative - 160(16) ++++ mg/dL [facility] Healthcare Leukocytes, UA Negative Negative - 500+++ Mira/mcL [facility] Healthcare Nitrite, UA Negative Negative - Positive [facility] pH, UA 6.5 5 - 9 [facility] Protein, UA Negative Negative - 1999(20) ++++ mg/dL [facility] Spec Grav, UA 1.01 1 - 1.03 [facility] Urobilinogen, UA 0.2 0.2 - 12 mg/dL [facility] US OB FOLLOW [...] 2513 gm / 5 lbs, 8 oz (1521-4056 gm) [place] Normal: 2393 gm (0849-1848 gm) [place] Wt%: 65% for 34.1 wks [...] as of 03/21/2024: 32w3d TBH UA (CLEAN/CATCH) MACROECONOMICS PROFESSOR/CHUY RO IF IND.on 04-22-2024 BILIRUBIN URINE Negative NEGATIVE [facility] BLOOD URINE Negative NEGATIVE [facility] Clarity (U) CLEAR CLEAR [facility] Color (U) LT. YELLOW YELLOW [facility] GLUCOSE URINE UA Negative NEGATIVE mg/dL [facility] Ketones Ql (U) Negative NEGATIVE mg/dL [facility] Leukocyte esterase Test strip Ql (U) Negative NEGATIVE [facility] NITRITE URINE Negative NEGATIVE [facility] pH (U) 6.0 [pH] 5.0 - 9.0 [facility] PROTEIN URINE Negative NEG/TRACE mg/dL [facility] SPECIFIC GRAVITY URINE 1.020 1.005 - 1.025 [facility] URINE MICROSCOPIC INDICATED NO [facility] UROBILINOGEN URINE 0.2 EU/dL 0.2 - 1.0 EU/dL [facility] Urine Cultureon 04-22-2024 Bacteria identified Cx Nom (U) No Growth 2 Days PERFORMED BY: [facility] [address] [place] [address] PATHOLOGIST FOSTER WINDER SYD SHEFFIELD M.D. Normal The [facility] Comment on above: Performed By: #### C UU #### [facility] [address] RECURRENT VAGINITIS (HTRX)on 04-06-2024 ATOPOBIUM VAGINAE 0 [facility] ATOPOBIUM VAGINAE Not detected [facility] BVAB 2,3 (BACTERIAL VAGINOSIS ASSOCIATED BACTERIA 2, 3); MOBILUNCUS SPP 0 [facility] BVAB 2,3 (BACTERIAL VAGINOSIS ASSOCIATED [...] TRICHOMONAS VAGINALIS Not detected [facility] Urinalysis macro (dipstick) panel (U)on 04-03-2024 Bilirubin, UA Negative Negative - 4(70) +++ mg/dL [facility] Blood, UA Negative Negative - 50 Slick/mcL [facility] Clarity, UA Cloudy [facility] re Color, UA Yellow [facility] Glucose, UA 1+ Negative - 2000(110) ++++ mg/dL [facility] Comment on above: 100mg/dL Interpretation and review of laboratory results Abnormal [facility] Ketones, UA Negative Negative - 160(16) ++++ mg/dL [facility] Leukocytes, UA Trace Negative - 500+++ Mira/mcL [facility] Nitrite, UA Negative Negative - Positive [facility] pH, UA 6 5 - 9 [facility] e Protein, UA Negative Negative - 1999(20) ++++ mg/dL [facility] Spec Grav, UA 1.01 1 - 1.03 [facility] Urobilinogen, UA 0.2 0.2 - 12 mg/dL [facility] Health[facility] ALL CBC WITH AUTO DIFFon BASOPHILS ABSOLUTE AUTO 0 [facility] Basophils/100 WBC (Bld) 0.1 % Low 0.2 - 2.0 % [facility] Eosinophils/100 WBC (Bld) 0.5 % Low 0.9 - 7.0 % [facility] Erythrocyte distribution width (RBC) [Ratio] 13.9 % 11.0 - 15.0 % [facility] Hematocrit (Bld) [Volume fraction] 35.2 % Low 36.0 - 48.0 % [facility] Hemoglobin (Bld) [Mass/Vol] 11.5 g/dL Low 12.0 - 16.0 g/dL [facility] IMMATURE GRANULOCYTES ABS AUTO 0.05 High [facility] Immature granulocytes/100 WBC (Bld) 0.6 % High 0.0 - 0.5 % [facility] Interpretation and review of laboratory results Abnormal [facility] LYMPHOCYTES ABSOLUTE AUTO 1.9 [facility] Lymphocytes/100 WBC (Bld) 22.9 % 20.5 - 60.0 % [facility] MCH (RBC) [Entitic mass] 30.5 pg 26.7 - 34.0 pg [facility] MCHC (RBC) [Mass/Vol] 32.7 g/dL 29.9 - 35.2 g/dL [facility] MCV (RBC) [Entitic vol] 93.4 fL 81.0 - 99.0 fL [facility] MONOCYTES ABSOLUTE AUTO 0.3 [facility] Monocytes/100 WBC (Bld) 3.3 % 1.7 - 12.0 % [facility] NEUTROPHILS ABSOLUTE AUTO 6.1 [facility] Neutrophils/100 WBC (Bld) 72.6 % 43.0 - 75.0 % [facility] Platelet mean volume (Bld) [Entitic vol] 10.5 fL 9.5 - 13.5 fL [facility] TBH EO # 0 [facility] TB[facility] PLT 347 [facility] RBC 3.77 Low [facility] WBC 8.4 [facility] Urinalysis macro (dipstick) panel (U)on 03-21-2024 Bilirubin, UA Negative Negative - 4(70) +++ mg/dL [facility] Blood, UA Negative Negative - 50 Slick/mcL [facility] Clarity, UA Cloudy [facility] Color, UA Yellow [facility] Glucose, UA Positive Negative - 1999(110) ++++ mg/dL [facility] Comment on above: 500 mg Interpretation and review of laboratory results Abnormal [facility] Ketones, UA Negative Negative - 160(16) ++++ mg/dL [facility] Leukocytes, UA Negative Negative - 500+++ Mira/mcL [facility] Healthcare Nitrite, UA Negative Negative - Positive [facility] pH, UA 6.5 5 - 9 [facility] Protein, UA Negative Negative - 1999(20) ++++ mg/dL [facility] Spec Grav, UA 1.025 1 - 1.03 [facility] care Urobilinogen, UA 0.2 0.2 - 12 mg/dL [facility] Urinalysis macro (dipstick) panel (U)on 03-11-2024 Bilirubin, UA Negative Negative - 4(70) +++ mg/dL [facility] Blood, UA Positive Negative - 50 Slick/mcL [facility] Healthcare Comment on above: large Clarity, UA Clear [facility] Color, UA Straw [facility] Glucose, UA Negative Negative - 1999(110) ++++ mg/dL [facility] Healthcare Interpretation and review of laboratory results Abnormal [facility] Healthcare Ketones, UA Negative Negative - 160(16) ++++ mg/dL [facility] Leukocytes, UA Negative Negative - 500+++ Mira/mcL [facility] Nitrite, UA Negative Negative - Positive [facility] Healthcare pH, UA 6 5 - 9 [facility] Protein, UA Negative Negative - 1999(20) ++++ mg/dL [facility] Spec Grav, UA 1.02 1 - 1.03 [facility] Urobilinogen, UA 0.2 0.2 - 12 mg/dL [facility] UA (CLEAN/CATCH) MACROECONOMICS PROFESSOR/CHUY RO IF IND.on 03-06-2024 BILIRUBIN URINE COLOR INTERFERENCE Abnormal NEGATIVE N [facility] BLOOD URINE COLOR INTERFERENCE Abnormal NEGATIVE [facility] Clarity (U) CLEAR CLEAR [facility] Health[facility] re Color (U) DK. RED YELLOW [facility] Health[facility] e GLUCOSE URINE UA COLOR INTERFERENCE Abnormal NEGAT CARMELITA mg/dL [facility] Interpretation and review of laboratory results Abnormal [facility] Ketones Ql (U) COLOR INTERFERENCE Abnormal NEGATIV E mg/dL [facility] Leukocyte esterase Test strip Ql (U) COLOR INTERFERENCE Abnormal NEGATIVE [facility] Health care NITRITE URINE COLOR INTERFERENCE Abnormal NEGATIVE [facility] PH URINE COLOR INTERFERENCE Abnormal 5.0 - 9.0 [facility] PROTEIN URINE COLOR INTERFERENCE Abnormal NEG/TRAC E mg/dL [facility] SPECIFIC GRAVITY URINE 1.020 1.005 - 1.025 [facility] URINE MICROSCOPIC INDICATED YES [facility] UROBILINOGEN URINE COLOR INTERFERENCE Abnormal 0.2 - 1.0 EU/dL [facility] Healthcar e Urinalysis macro (dipstick) panel (U)on 03-06-2024 Bilirubin, UA Positive Negative - 4(70) +++ mg/dL [facility] Blood, UA Positive Negative - 50 Slick/mcL [facility] Comment on above: large Clarity, UA Clear [facility] Healthoh re Color, UA Dark Sanaz [facility] Health[facility] e Glucose, UA Negative Negative - 1999(110) ++++ mg/dL [facility] Interpretation and review of laboratory results Abnormal [facility] Ketones, UA Negative Negative - 160(16) ++++ mg/dL [facility] Leukocytes, UA Trace Negative - 500+++ Mira/mcL [facility] Nitrite, UA Positive Negative - Positive [facility] pH, UA 6 5 - 9 [facility] e Protein, UA Positive Negative - 1999(20) ++++ mg/dL [facility] Comment on above: 100 Spec Grav, UA 1.02 1 - 1.03 [facility] Urobilinogen, UA 1.0 0.2 - 12 mg/dL [facility] Urinalysis macro (dipstick) panel (U)on 02-21-2024 Bilirubin, UA Negative Negative - 4(70) +++ mg/dL [facility] Blood, UA Negative Negative - 50 Slick/mcL [facility] Clarity, UA Clear [facility] re Color, UA Yellow [facility] Healthcar e Glucose, UA Negative Negative - 1999(110) ++++ mg/dL [facility] Interpretation and review of laboratory results Abnormal [facility] Ketones, UA Negative Negative - 160(16) ++++ mg/dL [facility] Leukocytes, UA Trace Negative - 500+++ Mira/mcL [facility] Nitrite, UA Negative Negative - Positive [facility] pH, UA 5.5 5 - [facility] Protein, UA Negative Negative - 1999(20) ++++ mg/dL [facility] Spec Grav, UA 1.01 1 - 1.03 [facility] Urobilinogen, UA 0.2 0.2 - 12 mg/dL [facility] CBC AND AUTO DIFFon 02-09-20 24 ABSOLUTE BASOPHIL 0.0 X10E9/L Normal 0.0-0.2 [facility] Comment on above: Performed By: #### 3 2132-, CMP, CBCA #### [facility] ([id number]) [address], [address] [place] [address] ABSOLUTE NEUTROPHIL 5.4 X10E9/L Normal 1.5-6.6 [facility] Comment on above: Performed By: #### 3 2132-1, CMP, CBCA #### [facility] ([id number]) [address], [address] [place] [address] Basophils/100 WBC (Bld) 0.2 % Normal [facility] Comment on above: Performed By: #### 3 2132-1, CMP, CBCA #### [facility] ([id number]) [address], [address] [place] [address] Eosinophils (Bld) [#/Vol] 0.1 10*3/uL Normal 0.0-0.[address] [facility] Comment on above: Performed By: #### 3 2132-1, CMP, CBCA #### [facility] ([id number]) [address], [address] [place] [address] Eosinophils/100 WBC (Bld) 0.9 % Normal [facility] Comment on above: Performed By: #### 3 2132-1, CMP, CBCA #### [facility] ([id number]) [address], [facility] [address] [place] [address] Erythrocyte distribution width (RBC) [Ratio] 14.3 % Normal 11.5-15.[address] [facility] Comment on above: Performed By: #### 3 2132-1, CMP, CBCA #### [facility] ([id number]) [address], [facility] [address] [place] [address] Hematocrit (Bld) [Volume fraction] 30.3 % Low 35-[address] [facility] Comment on above: Performed By: #### 3 2132-1, CMP, CBCA #### [facility] ([id number]) [address], [facility] [address] [place] [address] Hemoglobin (Bld) [Mass/Vol] 10.3 g/dL Low 11.7-15.[address] [facility] Comment on above: Performed By: #### 3 2132-05, CMP, CBCA #### [facility] ([id number]) [address], [facility] [address] [place] [address] Lymphocytes (Bld) [#/Vol] 1.7 10*3/uL Normal 1.0-3.[address] [facility] Comment on above: Performed By: #### 3 2132-1, CMP, CBCA #### [facility] ([id number]) [address], [address] [place] [address] Lymphocytes/100 WBC (Bld) 22.0 % Normal [facility] Comment on above: Performed By: #### 3 2132-1, CMP, CBCA #### [facility] ([id number]) [address], [address] [place] [address] MCH (RBC) [Entitic mass] 31.3 pg Normal 27-[address] [facility] Comment on above: Performed By: #### 3 2132-1, CMP, CBCA #### [facility] ([id number]) [address], [address] [place] [address] MCHC (RBC) [Mass/Vol] 34.0 g/dL Normal 32-36 [facility] Comment on above: Performed By: #### 3 2132-1, CMP, CBCA #### [facility] ([id number]) [address], [address] [place] [address] MCV (RBC) [Entitic vol] 92 fL Normal 80-[address] [facility] Comment on above: Performed By: #### 3 2132-1, CMP, CBCA #### [facility] ([id number]) [address], [address] [place] [address] Monocytes (Bld) [#/Vol] 0.5 10*3/uL Normal 0-0.[address] [facility] Comment on above: Performed By: #### 3 2132-1, CMP, CBCA #### [facility] ([id number]) [address], [address] [place] [address] Monocytes/100 WBC (Bld) 7.0 % Normal [facility] Comment on above: Performed By: #### 3 2132-1, CMP, CBCA #### [facility] ([id number]) [address], [address] [place] [address] Neutrophils/100 WBC (Bld) 69.9 % Normal [facility] Comment on above: Performed By: #### 3 2132-1, CMP, CBCA #### [facility] ([id number]) [address], [address] [place] [address] Platelet mean volume (Bld) [Entitic vol] 8.8 fL Normal 7-[address] [facility] Comment on above: Performed By: #### 3 2132-1, CMP, CBCA #### [facility] ([id number]) [address], [address] [place] [address] Platelets (Bld) [#/Vol] 259 10*3/uL Normal 150-[address] [facility] Comment on above: Performed By: #### 3 2132-1, CMP, CBCA #### [facility] ([id number]) [address], [address] [place] [address] RBC COUNT 3.29 X10E12/L Low 3.80-5.[address] [facility] Comment on above: Performed By: #### 3 2132-1, CMP, CBCA #### [facility] ([id number]) [address], [address] [place] [address] WBC (Bld) [#/Vol] 7.7 10*3/uL Normal 4.0-11.0 [facility] Comment on above: Performed By: #### 3 2132-1, CMP, CBCA #### [facility] ([id number]) [address], [address] [place] [address] COMPREHENSIVE METABOLIC PANE [facility] 02-09-2024 Albumin [Mass/Vol] 2.9 g/dL Low 3.2-5.3 [facility] Comment on above: Performed By: #### 3 2132-1, CMP, CBCA #### [facility] ([id number]) [address], [address] [place] [address] ALP [Catalytic activity/Vol] 118 U/L Normal 39-[address] [facility] Comment on above: Performed By: #### 3 2132-1, CMP, CBCA #### [facility] ([id number]) [address], [address] [place] [address] ALT [Catalytic activity/Vol] 6 U/L Normal 0-[address] [facility] Comment on above: Performed By: #### 3 2132-1, CMP, CBCA #### [facility] ([id number]) [address], [address] [place] [address] Anion gap [Moles/Vol] 10 mmol/L Normal 5-15 [facility] Comment on above: Performed By: #### 3 2132-1, CMP, CBCA #### [facility] ([id number]) [address], [address] [place] [address] AST [Catalytic activity/Vol] 9 U/L Normal 0-[address] [facility] Comment on above: Performed By: #### 3 2132-1, CMP, CBCA #### [facility] ([id number]) [address], [address] [place] [address] Bilirubin [Mass/Vol] 0.4 mg/dL Normal 0.3-1.2 [facility] Comment on above: Performed By: #### 3 2132-1, CMP, CBCA #### [facility] ([id number]) [address], [address] [place] [address] Calcium [Mass/Vol] 8.5 mg/dL Normal 8.5-10.5 [facility] Comment on above: Performed By: #### 3 2132-1, CMP, CBCA #### [facility] ([id number]) [address], [address] [place] [address] Chloride [Moles/Vol] 105 mmol/L Normal 98-109 [facility] Comment on above: Performed By: #### 3 2132-1, CMP, CBCA #### [facility] ([id number]) [address], [address] [place] [address] CO2 [Moles/Vol] 22 mmol/L Normal 22-[address] [facility] Comment on above: Performed By: #### 3 2132-1, CMP, CBCA #### [facility] ([id number]) [address], [address] [place] [address] Creatinine [Mass/Vol] 0.45 mg/dL Normal 0.40-1.00 [facility] Comment on above: Result Comment: METH OD TRACEABLE TO IDMS STANDARD Performed By: #### 3 2132-1, CMP, CBCA #### [facility] ([id number]) [address], [address] [place] [address] eGFR (CKD-EPI) NON-RACE DEPENDENT >90 Normal >[address] [facility] Comment on above: Result Comment: Reported eGFR is based on the CKD-EPI 2020 equation that does not use a race coefficient. Performed By: #### 3 2132-1, CMP, CBCA #### [facility] ([id number]) [address], [address] [place] [address] Glucose [Mass/Vol] 84 mg/dL Normal 65-99 [facility] Comment on above: Performed By: #### 3 2132-1, CMP, CBCA #### [facility] ([id number]) [address], [address] [place] [address] Potassium [Moles/Vol] 3.7 mmol/L Normal 3.5-5.0 [facility] Comment on above: Performed By: #### 3 2132-1, CMP, CBCA #### [facility] ([id number]) [address], [address] [place] [address] Protein [Mass/Vol] 6.0 g/dL Normal 6.0-8.0 [facility] Comment on above: Performed By: #### 3 2132-1, CMP, CBCA #### [facility] ([id number]) [address], [address] [place] [address] Sodium [Moles/Vol] 137 mmol/L Normal 134-146 [facility] Comment on above: Performed By: #### 3 2132-1, CMP, CBCA #### [facility] ([id number]) [address], [address] [place] [address] Urea nitrogen [Mass/Vol] 5 mg/dL Normal 5-[address] [facility] Comment on above: Performed By: #### 3 2132-1, CMP, CBCA #### [facility] ([id number]) [address], [address] [place] [address] MAGNESIUMon 02-09-2024 Magnesium [Mass/Vol] 1.6 mg/dL Low 1.8-2.6 [facility] Comment on above: Performed By: #### 3 2132-1, CMP, CBCA #### [facility] ([id number]) [address], [address] [place] [address] PHOSPHORUSon 02-09-2024 Phosphate [Mass/Vol] 4.5 mg/dL Normal 2.4-4.9 [facility] Comment on above: Performed By: #### 3 1, CMP, CBCA #### [facility] ([id number]) [address], [address] [place] [address] US RETROPERITONEAL LIMITEDon 02-09-2024 US RETROPERITONEAL LIMITED [...] Andrade MD on 02/09/2024 10:14 AM Normal [facility] BLOOD CULTUREon 02-08-2024 Bacteria identified Aer cx Nom (Bld) SPECIMEN NOTES SUBOPTIMAL VOLUME OF BLOOD COLLECTED, RESULTS MAY BE AFFECTED. CULTURE RESULTS NO GROWTH 5 DAYS Normal [facility] Comment on above: Performed By: #### 3 2132-1, CMP, CBCA #### [facility] ([id number]) [address], [address] [place] [address] Bacteria identified Aer cx Nom (Bld) SPECIMEN NOTES SUBOPTIMAL VOLUME OF BLOOD COLLECTED, RESULTS MAY BE AFFECTED. CULTURE RESULTS NO GROWTH 5 DAYS Normal [facility] Comment on above: Performed By: #### 1 7928-3 #### [facility] ([id number]) [address] [place] [address] CBC AND AUTO DIFFon 02-08-20 ABSOLUTE BASOPHIL 0.0 X10E9/L Normal 0.0-0.2 [facility] Comment on above: Performed By: #### 3 2132-, CMP, CBCA #### [facility] ([id number]) [address], [address] [place] [address] ABSOLUTE NEUTROPHIL 9.5 X10E9/L High 1.5-6.6 [facility] Comment on above: Performed By: #### 3 2132-1, CMP, CBCA #### [facility] ([id number]) [address], [address] [place] [address] Basophils/100 WBC (Bld) 0.0 % Normal [facility] Comment on above: Performed By: #### 3 2132-1, CMP, CBCA #### [facility] ([id number]) [address], [address] [place] [address] Eosinophils (Bld) [#/Vol] 0.0 10*3/uL Normal 0.0-0.[address] [facility] Comment on above: Performed By: #### 3 2132-1, CMP, CBCA #### [facility] ([id number]) [address], [address] [place] [address] Eosinophils/100 WBC (Bld) 0.0 % Normal [facility] Comment on above: Performed By: #### 3 2132-1, CMP, CBCA #### [facility] ([id number]) [address] [place] [address] Erythrocyte distribution width (RBC) [Ratio] 14.5 % Normal 11.5-15.[address] [facility] Comment on above: Performed By: #### 3 2132-1, CMP, CBCA #### [facility] ([id number]) [address], [address] [place] [address] Hematocrit (Bld) [Volume fraction] 31.3 % Low 35-[address] [facility] Comment on above: Performed By: #### 3 2132-1, CMP, CBCA #### [facility] ([id number]) [address], [address] [place] [address] Hemoglobin (Bld) [Mass/Vol] 10.6 g/dL Low 11.7-15.[address] [facility] Comment on above: Performed By: #### 3 2132-1, CMP, CBCA #### [facility] ([id number]) [address], [address] [place] [address] Lymphocytes (Bld) [#/Vol] 1.1 10*3/uL Normal 1.0-3.[address] [facility] Comment on above: Performed By: #### 3 2132-1, CMP, CBCA #### [facility] ([id number]) [address], [address] [place] [address] Lymphocytes/100 WBC (Bld) 9.4 % Normal [facility] Comment on above: Performed By: #### 3 2132-1, CMP, CBCA #### [facility] ([id number]) [address], [address] [place] [address] MCH (RBC) [Entitic mass] 30.8 pg Normal 27-[address] [facility] Comment on above: Performed By: #### 3 2132-1, CMP, CBCA #### [facility] ([id number]) [address], [address] [place] [address] MCHC (RBC) [Mass/Vol] 33.9 g/dL Normal 32-36 [facility] Comment on above: Performed By: #### 3 2132-1, CMP, CBCA #### [facility] ([id number]) [address], [address] [place] [address] MCV (RBC) [Entitic vol] 91 fL Normal 80-[address] [facility] Comment on above: Performed By: #### 3 2132-1, CMP, CBCA #### [facility] ([id number]) [address], [address] [place] [address] Monocytes (Bld) [#/Vol] 0.9 10*3/uL Normal 0-0.[address] [facility] Comment on above: Performed By: #### 3 2132-1, CMP, CBCA #### [facility] ([id number]) [address], [address] [place] [address] Monocytes/100 WBC (Bld) 8.2 % Normal [facility] Comment on above: Performed By: #### 3 2132-1, CMP, CBCA #### [facility] ([id number]) [address], [address] [place] [address] Neutrophils/100 WBC (Bld) 82.4 % Normal [facility] Comment on above: Performed By: #### 3 2132-1, CMP, CBCA #### [facility] ([id number]) [address], [address] [place] [address] Platelet mean volume (Bld) [Entitic vol] 8.5 fL Normal 7-[address] [facility] Comment on above: Performed By: #### 3 2132-1, CMP, CBCA #### [facility] ([id number]) [address], [facility] [address] [place] [address] Platelets (Bld) [#/Vol] 246 10*3/uL Normal 150-[address] [facility] Comment on above: Performed By: #### 3 2132-1, CMP, CBCA #### [facility] ([id number]) [address], [facility] [address] [place] [address] RBC COUNT 3.44 X10E12/L Low 3.80-5.[address] [facility] Comment on above: Performed By: #### 3 2132-1, CMP, CBCA #### [facility] ([id number]) [address], [address] [address] WBC (Bld) [#/Vol] 11.5 10*3/uL High 4.0-11.0 [facility] Comment on above: Performed By: #### 3 2132-1, CMP, CBCA #### [facility] ([id number]) [address], [facility] [address] [place] [address] COMPREHENSIVE METABOLIC PANE Paco 02-08-2024 Albumin [Mass/Vol] 3.1 g/dL Low 3.2-5.3 [facility] Comment on above: Performed By: #### 3 2132-1, CMP, CBCA #### [facility] ([id number]) [address], [facility] [address] [place] [address] ALP [Catalytic activity/Vol] 100 U/L Normal 39-[address] [facility] Comment on above: Performed By: #### 3 2132-1, CMP, CBCA #### [facility] ([id number]) [address], [address] [place] [address] ALT [Catalytic activity/Vol] 7 U/L Normal 0-[address] [facility] Comment on above: Performed By: #### 3 2132-1, CMP, CBCA #### [facility] ([id number]) [address], [address] [place] [address] Anion gap [Moles/Vol] 12 mmol/L Normal 5-15 [facility] Comment on above: Performed By: #### 3 2132-1, CMP, CBCA #### [facility] ([id number]) [address], [address] [place] [address] AST [Catalytic activity/Vol] 8 U/L Normal 0-[address] [facility] Comment on above: Performed By: #### 3 2132-1, CMP, CBCA #### [facility] ([id number]) [address], [address] [place] [address] Bilirubin [Mass/Vol] 0.5 mg/dL Normal 0.3-1.2 [facility] Comment on above: Performed By: #### 3 2132-1, CMP, CBCA #### [facility] ([id number]) [address], [address] [place] [address] Calcium [Mass/Vol] 8.3 mg/dL Low 8.5-10.5 [facility] Comment on above: Performed By: #### 3 2132-1, CMP, CBCA #### [facility] ([id number]) [address], [address] [place] [address] Chloride [Moles/Vol] 104 mmol/L Normal 98-109 [facility] Comment on above: Performed By: #### 3 2132-1, CMP, CBCA #### [facility] ([id number]) [address] [place] [address] CO2 [Moles/Vol] 20 mmol/L Low 22-32 [facility] Comment on above: Performed By: #### 3 2132-1, IZAIAH, CBCA #### [facility] ([id number]) [address] [address] [place] [address] Creatinine [Mass/Vol] 0.53 mg/dL Normal 0.40-1.00 [facility] Comment on above: Result Comment: METH OD TRACEABLE TO IDMS STANDARD Performed By: #### 3 2132-1, CMP, CBCA #### [facility] ([id number]) [address] [address] [place] [address] eGFR (CKD-EPI) NON-RACE DEPENDENT >90 Normal >[address] [facility] Comment on above: Result Comment: Reported eGFR is based on the CKD-EPI 2020 equation that does not use a race coefficient. Performed By: #### 3 2132-1, IZAIAH, CBCA #### [facility] ([id number]) [address] [place] [address] Glucose [Mass/Vol] 115 mg/dL High 65-99 [facility] Comment on above: Performed By: #### 3 2132-1, IZAIAH, CBCA #### [facility] ([id number]) [address] [address] [place] [address] Potassium [Moles/Vol] 3.6 mmol/L Normal 3.5-5.0 [facility] Comment on above: Performed By: #### 3 2132-1, CMP, CBCA #### [facility] ([id number]) [address] [address] [place] [address] Protein [Mass/Vol] 6.1 g/dL Normal 6.0-8.0 [facility] Comment on above: Performed By: #### 3 2132-1, CMP, CBCA #### [facility] ([id number]) [address] [address] [place] [address] Sodium [Moles/Vol] 136 mmol/L Normal 134-146 [facility] Comment on above: Performed By: #### 3 2132-1, CMP, CBCA #### [facility] ([id number]) [address], [address] [place] [address] Urea nitrogen [Mass/Vol] 3 mg/dL Low 5-[address] [facility] Comment on above: Performed By: #### 3 2132-1, CMP, CBCA #### [facility] ([id number]) [address] [place] [address] DRUG SCREEN, URINEon 024 AMPHETAMINE/METHAMP Negative Normal NEG [facility] Comment on above: Result Comment: AMPH /METH screening cut off = 1000 ng/mL Performed By: #### D GUILLEN #### [facility] ([id number]) [address] [place] [address] BARBITURATES Negative Normal NEG [facility] Comment on above: Result Comment: Megan iturates screening cut off value = 200 ng/mL Performed By: #### D GUILLEN #### [facility] ([id number]) [address] [place] [address] BENZODIAZEPINES Negative Normal NEG [facility] Comment on above: Result Comment: Giorgio odiazepines screening cut off value = 200 ng/mL Performed By: #### D GUILLEN #### [facility] ([id number]) [address] [place] [address] CANNABINOIDS Negative Normal NEG [facility] Comment on above: Result Comment: Elsie abinoids/THC screening cut off value = 50 ng/mL Performed By: #### D GUILLEN #### [facility] ([id number]) [address], [address] [place] [address] COCAINE METABOLITE Negative Normal NEG [facility] Comment on above: Result Comment: Coca ine screening cut off value = 300 ng/mL Performed By: #### D GUILLEN #### [facility] ([id number]) [address] [place] [address] ECSTASY Negative Normal NEG [facility] Comment on above: Result Comment: Ecst asy screening cut off value = 500 ng/mL This report is intended for use in clinical monitoring or management of patients. Performed By: #### D GUILLEN #### [facility] ([id number]) [address] [place] [address] METHADONE Negative Normal NEG [facility] Comment on above: Result Comment: Meth adone screening cut off value = 300 ng/mL. Performed By: #### D GUILLEN #### [facility] ([id number]) [address] [place] [address] OPIATES Negative Normal NEG [facility] Comment on above: Result Comment: Opia joey screening cut off value = 300 ng/mL NOTE: This test is used for the detection of codeine, hydrocodone (>1000 ng/mL), morphine and hydromorphone (>900 ng/mL) in urine. Performed By: #### D GUILLEN #### [facility] ([id number]) [address] [place] [address] OXYCODONE Negative Normal NEG [facility] Comment on above: Result Comment: Oxyc odone screening cut off value = 300 ng/mL NOTE: This test is used for the detection of oxycodone and oxymorphone in urine. Performed By: #### D GUILLEN #### [facility] ([id number]) [address] [place] [address] PHENCYCLIDINE Negative Normal NEG [facility] Comment on above: Result Comment: Phen cyclidine screening cut off value = 25 ng/mL Performed By: #### D GUILLEN #### [facility] ([id number]) [address] [place] [address] Glucose Glucometer (BldC) [M ass/Vol]on 02-08-2024 Glucose [Mass/Vol] 107 mg/dL High 65-99 [facility] Lactate (P melvin) [Moles/Vol]o n 02-08-2024 LACTATE W/REFLEX 1.0 mmol/L Normal 0.4-2.0 [facility] Comment on above: Result Comment: Result did not trigger repeat Lactate, re-order if needed. Performed By: #### 7 5241-0, 84020-5 #### [facility] ([id number]) [address], [address] [place] [address] LACTATE W/REFLEX 0.8 mmol/L Normal 0.4-2.0 [facility] Comment on above: Result Comment: Result did not trigger repeat Lactate, re-order if needed. Performed By: #### 3 2133-1, CMP, CBCA #### [facility] ([id number]) [address] [place] [address] Procalcitonin IA [Mass/Vol]o n 02-08-2024 PROCALCITONIN 0.74 ng/mL High <0.[address] [facility] Comment on above: Result Comment: NOTE <0.50 ng/mL - Low risk of severe sepsis and/or septic shock. <2.00 ng/mL - Recommend retesting within 6-24 hours. >2.00 ng/mL - High risk of sepsis and/or septic shock. Performed By: #### 7 5241-0, 18107-7 #### [facility] ([id number]) [address], [address] [place] [address] URINALYSISon 02-08-2024 Bilirubin Ql (U) Negative Normal NEG [facility] Comment on above: Performed By: #### U A #### [facility] ([id number]) [address], [address] [place] [address] BLOOD/HGB Small Abnormal NEG [facility] Comment on above: Performed By: #### U A #### [facility] ([id number]) [address], [address] [place] [address] Color (U) YELLOW Normal YELLOW [facility] Comment on above: Performed By: #### U A #### [facility] ([id number]) [address], [address] [place], [place] [address] Glucose Ql (U) Negative Normal NEG [facility] Comment on above: Performed By: #### U A #### [facility] ([id number]) [address], [address] [place] [address] Ketones Ql (U) 20 mg/dL Abnormal NEG [facility] Comment on above: Performed By: #### U A #### [facility] ([id number]) [address], [address] [place] [address] Leukocyte esterase Test strip Ql (U) Negative Normal NEG [facility] Comment on above: Performed By: #### U A #### [facility] ([id number]) [address], [address] [place] [address] MUCOUS PRESENT Abnormal NONE [facility] Comment on above: Performed By: #### U A #### [facility] ([id number]) [address], [address] [place] [address] Nitrite Ql (U) Negative Normal NEG [facility] Comment on above: Performed By: #### U A #### [facility] ([id number]) [address], [address] [place] [address] pH (U) 8.0 [pH] Normal 5.0-8.[address] [facility] Comment on above: Performed By: #### U A #### [facility] ([id number]) [address], [address] [place] [address] Protein Ql (U) Trace Abnormal NEG [facility] Comment on above: Performed By: #### U A #### [facility] ([id number]) [address], [address] [place] [address] R.B.CELLS 16 /hpf High 0-[address] [facility] Comment on above: Performed By: #### U A #### [facility] ([id number]) [address] [address] [place] [address] Specific gravity (U) [Rel density] 1.012 Normal 1.003-1.[address] [facility] Comment on above: Performed By: #### U A #### [facility] ([id number]) [address] [place] [address] SQUAMOUS EPITHELIUM 1 /hpf Normal 0-5 [facility] Comment on above: Performed By: #### U A #### [facility] ([id number]) [address], [address] [place] [address] TRANSITIONAL EPITH <1 High 0 [facility] Comment on above: Performed By: #### U A #### [facility] ([id number]) [address], [address] [place] [address] TURBIDITY CLEAR Normal CLEAR [facility] Comment on above: Performed By: #### U A #### [facility] ([id number]) [address], [address] [place] [address] Urobilinogen Qn (U) 2 {Blanca'U}/dL High <1.[address] [facility] Comment on above: Performed By: #### U A #### [facility] ([id number]) [address], [address] [place] [address] W.B.CELLS 2 /hpf Normal 0-[address] [facility] Comment on above: Performed By: #### U A #### [facility] ([id number]) [address] [place] [address] URINE CULTUREon 02-08-2024 Bacteria identified Cx Nom (U) CULTURE RESULTS NO GROWTH AT <1000 CFU/mL Normal [facility] Comment on above: Performed By: #### 3 2133-1, IZAIAH, CBCA #### [facility] ([id number]) [address], [address] [place] [address] XR CHEST 1 VWon 02-08-2024 XR CHEST [...] Rubi MD on 02/08/2024 9:35 AM Normal [facility] URETHRITIS/DISCHARGE PLUS VA GINITIS (HTRX)on 01-27-2024 [...] detected N [facility] NEISSERIA GONORRHOEAE 0.000 [facility] NEISSERIA GONORRHOEAE Not detected [facility] TRICHOMONAS VAGINALIS 0.000 [facility] TRICHOMONAS VAGINALIS Not detected [facility] AFP, SERUM, OPEN SPINA BIFID Aon 01-26-2024 AFP MOM 1.08 . [facility] e AFP VALUE 35.9 ng/mL . [facility] e COMMENT: Comment . [facility] Comment on above: Nette Holley , Ph.D., [facility] Director References: Available Upon Request. Multiples Of Median Cutoffs For AFP Elevations Rao 2.5 Black 2.8 IDD 2.0 Twins 4.5 Abbreviation Definitions IDD - Insulin Dep Diabetes OSBR - Open Spina Bifida Risk For further inquiries contact [employer] [facility] at [phone]. This test was developed and its performance characteristics determined by [employer]. It has not been cleared or approved by the Food and Drug Administration. Performed at: [facility] [address] [place], [place] [id number] [employer] Operator: Ashley Duggan [facility], Phone: [phone] GEST. AGE ON COLLECTION DATE 17.9 . weeks [facility] GESTAT. AGE BASED ON As provided . [facility] Comment on above: Recalculations are n ot recommended when gestational dating by LMP and ultrasound are within 10 days. INSULIN DEP DIABETES No . [facility] Healthcare INTERPRETATION Comment . [facility] Jeffery evans Comment on above: Interpretation: Scre en [...] Customer Services to discuss available options. The [employer] recommends amniocentesis be offered to women age 35 and older. [age] [facility] MULTIPLE GESTATION No . [facility] OSBR RISK 1 IN 40 . [facility] Jeffery evans RACE Other . [facility] RESULTS Report . [facility] TEST RESULTS: Negative . [facility] WEIGHT 225 . lbs [facility] Health[facility] e PREGNANY N N ULTRASOUND [id number] [phone] N 1 Y 225 N N N N N White/ [facility] Urinalysis macro (dipstick) panel (U)on 01-24-2024 Bilirubin, UA Negative Negative - 4(70) +++ mg/dL [facility] Blood, UA Negative Negative - 50 Slick/mcL [facility] Healthcare Clarity, UA Clear [facility] Color, UA Yellow [facility] Glucose, UA Negative Negative - 1999(110) ++++ mg/dL [facility] Interpretation and review of laboratory results Abnormal [facility] Ketones, UA Negative Negative - 160(16) ++++ mg/dL [facility] Leukocytes, UA Trace Negative - 500+++ Mira/mcL [facility] Nitrite, UA Negative Negative - Positive [facility] pH, UA 6.5 5 - 9 [facility] Health[facility] e Protein, UA Negative Negative - 1999(20) ++++ mg/dL [facility] Healthcare Spec Grav, UA 1.020 1 - 1.03 [facility] Urobilinogen, UA 1.0 0.2 - 12 mg/dL [facility] Urinalysis macro (dipstick) panel (U)on 01-03-2024 Bilirubin, UA Negative Negative - 4(70) +++ mg/dL [facility] Blood, UA Positive Negative - 50 Slick/mcL [facility] Healthcare Comment on above: trace Clarity, UA Clear [facility]ca re Color, UA Yellow [facility] Glucose, UA Negative Negative - 1999(110) ++++ mg/dL [facility] Interpretation and review of laboratory results Abnormal [facility] Ketones, UA Negative Negative - 160(16) ++++ mg/dL [facility] Leukocytes, UA Positive Negative - 500+++ Mira/mcL [facility] Healthcare Comment on above: small Nitrite, UA Negative Negative - Positive [facility] pH, UA 6.0 5 - 9 [facility] Protein, UA Negative Negative - 1999(20) ++++ mg/dL [facility] Spec Grav, UA 1.020 1 - 1.03 [facility] Urobilinogen, UA 0.2 0.2 - 12 mg/dL [facility] No Panel InformationOrdered By: Sanaz Lockwood on 08-18-2023 Quick Strep (POC) [facility] COVID + FLU Quick Testingon 04-27-2023 SARS-CoV-2 (COVID-19) RNA J LUIS+probe Ql (Unsp spec) Negative [facility] Other COVID + FLU Quick Testing Negative [facility] Other Quick Strepon 04-27-2023 S. pyogenes Org specific cx Ql (Throat) Negative [facility] Other Quick Strep [facility] Other COVID/FLU/RSV RT-PCRon 05-10 SARS-CoV-2 (COVID-19) RNA J LUIS+probe Ql (Unsp spec) Negative [facility] Other COVID/FLU/RSV RT-PCR Positive [facility] Other COVID/FLU/RSV RT-PCR Negative [facility] Other CBC AUTO DIFFon 04-27-2022 BASO # 0.0 103/ul Normal 0.0-0.1 [facility] Comment on above: Performed By: #### C BC #### [facility] [address] [place] [address] Dr. Dee Humphrey Basophils/100 WBC (Bld) 0.2 % Normal 0.2-2.0 [facility] Comment on above: Performed By: #### C BC #### [facility] [address] [place] [address] [address] Dee Humphrey EO # 0.1 103/ul Normal 0.0-0.7 [facility] Comment on above: Performed By: #### C BC #### [facility] [address] [address] [address] Dee Humphrey Eosinophils/100 WBC (Bld) 0.6 % Critically low 0.9-7.0 [facility] Comment on above: Performed By: #### C BC #### [facility] [address] [place] [address] Dr. Dee Humphrey Erythrocyte distribution width (RBC) [Ratio] 14.1 % Normal 11.0-15.0 [facility] Comment on above: Performed By: #### C BC #### [facility] [address] [place] [address] Dr. Dee Humphrey Hematocrit (Bld) [Volume fraction] 37.1 % Normal 36.0-48.0 [facility] Comment on above: Performed By: #### C BC #### [facility] [address] [place] [address] Dr. Dee Humphrey Hemoglobin (Bld) [Mass/Vol] 12.4 g/dL Normal 12.0-16.0 [facility] Comment on above: Performed By: #### C BC #### [facility] [address] [place] [address] Dr. Dee Humphrey IG # 0.06 10e3/ul Critically high 0.00-0.03 [facility] [place] [facility] Comment on above: Performed By: #### C BC #### [facility] [address] [place] [address] Dr. Dee Humphrey IG % 0.5 % Normal 0.0-0.5 [facility] Comment on above: Performed By: #### C BC #### [facility] [address] [place] [address] Dr. Dee Humphrey LYMPH # 3.7 103/ul Normal 1.2-3.8 [facility] Comment on above: Performed By: #### C BC #### [facility] [address] [place] [address] Dr. Dee Humphrey Lymphocytes/100 WBC (Bld) 28.7 % Normal 20.5-60.0 [facility] Comment on above: Performed By: #### C BC #### [facility] [address] [place] [address] Dr. Dee Humphrey MANUAL DIFF REQ NO Normal [facility] Comment on above: Performed By: #### C BC #### [facility] [address] [place] [address] Dr. Dee Humphrey MCH (RBC) [Entitic mass] 30.2 pg Normal 26.7-34.0 [facility] Comment on above: Performed By: #### C BC #### [facility] [address] [place] [address] Dr. Dee Humphrey MCHC (RBC) [Mass/Vol] 33.4 g/dL Normal 29.9-35.2 [facility] Comment on above: Performed By: #### C BC #### [facility] [address] [address] [address] Dee Humphrey MCV (RBC) [Entitic vol] 90.5 fL Normal 81.0-99.0 [facility] Comment on above: Performed By: #### C BC #### [facility] [address] [place] [address] Dr. Dee Humphrey MONO # 0.7 103/ul Normal 0.3-0.8 [facility] Comment on above: Performed By: #### C BC #### [facility] [address] [place] [address] Dr. Dee Humphrey Monocytes/100 WBC (Bld) 5.0 % Normal 1.7-12.0 [facility] Comment on above: Performed By: #### C BC #### [facility] [address] [place] [address] Dr. Dee Humphrey NEUT # 8.5 103/ul Critically high 1.4-6.5 [facility] Comment on above: Performed By: #### C BC #### [facility] [address] [place] [address] Dr. Dee Humphrey Neutrophils/100 WBC (Bld) 65.0 % Normal 43.0-75.0 [facility] Comment on above: Performed By: #### C BC #### [facility] [address] [place] [address] Dr. Dee Humphrey Platelet mean volume (Bld) [Entitic vol] 9.6 fL Normal 9.5-13.5 [facility] Comment on above: Performed By: #### C BC #### [facility] [address] [place] [address] Dr. Dee Humphrey PLT 317 103/ul Normal 150-450 [facility] Comment on above: Performed By: #### C BC #### [facility] [address] [place], [place] [address] Dr. Dee Humphrey RBC 4.10 106/ul Critically low 4.20-5.40 [facility] Comment on above: Performed By: #### C BC #### [facility] [address] [place], [place] [address] Dr. Dee Humphrey WBC 13.1 103/ul Critically high 4.0-11.0 [facility] Comment on above: Performed By: #### C BC #### [facility] [address] [place], [place] [address] ABD/PELVIS WO CONon [...] ROCIO CHAU Date: 2022-04-27 20:24 Normal [facility] ER URINE PROFILEon 2 Bilirubin Ql (U) Negative Normal NEGATIVE [facility] Comment on above: Performed By: #### P REGU, ERUR #### [facility] [address] [address] [address] Dee Humphrey Clarity (U) CLEAR Normal CLEAR [facility] Comment on above: Performed By: #### P REGU, ERUR #### [facility] [address] [place] [address] Dr. Dee Humphrey Color (U) YELLOW Normal YELLOW [facility] Comment on above: Performed By: #### P REGU, ERUR #### [facility] [address] [place] [address] Dr. Dee Humphrey ERUAHD A micrscopic examination will be performed if indicated. Normal [facility] Comment on above: Performed By: #### P REGU, ERUR #### [facility] [address] [place] [address] Dr. Dee Humphrey Glucose Ql (U) Negative Normal NEGATIVE [facility] Comment on above: Performed By: #### P REGU, ERUR #### [facility] [address] [place] [address] Dr. Dee Humphrey Hemoglobin Ql (U) Negative Normal NEGATIVE [facility] [place] [facility] Comment on above: Performed By: #### P REGU, ERUR #### [facility] [address] [place] [address] Dr. Dee Humphrey Ketones Ql (U) Negative Normal NEGATIVE [facility] Comment on above: Performed By: #### P REGU, ERUR #### [facility] [address] [address] [address] Dee Humphrey LEUKOCYTES Negative Normal NEGATIVE [facility] Comment on above: Performed By: #### P REGU, ERUR #### [facility] [address] [place] [address] Dr. Dee Humphrey Nitrite Ql (U) Negative Normal NEGATIVE [facility] Comment on above: Performed By: #### P REGU, ERUR #### [facility] [address] [place] [address] Dr. Dee Humphrey pH (U) 5.5 [pH] Normal 5-9 [facility] Comment on above: Performed By: #### P REGU, ERUR #### [facility] [address] [place] [address] Dr. Dee Humphrey SPEC GRAVITY >=1.030 Abnormal 1.005-<=1.02 5 [facility] Comment on above: Performed By: #### P REGU, ERUR #### [facility] [address] [place] [address] Dr. Dee Humphrey UA PROTEIN Negative Normal NEGATIVE/ TRACE [facility] Comment on above: Performed By: #### P REGU, ERUR #### [facility] [address] [place] [address] Dr. Dee Humphrey UR MICRO IND NOT INDICATED Normal [facility] Comment on above: Performed By: #### P REGU, ERUR #### [facility] [address] [place] [address] Dr. Dee Humphrey Urobilinogen Qn (U) 0.2 {Blanca'U}/dL Normal 0.2 - 1. 0 [facility] Comment on above: Performed By: #### P REGU, ERUR #### [facility] [address] [place] [address] Dr. Dee Humphrey LIPASEon 04-27-2022 Lipase [Catalytic activity/Vol] 94.0 U/L Normal 73.0-393.0 [facility] Comment on above: Performed By: #### L IPA, CMP #### [facility] [address] [place] [address] Dr. Dee Humphrey URon 04-27-2022 , QUAL Negative Normal NEGATIVE [facility] Comment on above: Performed By: #### P REGU, ERUR #### [facility] [address] [place] [address] Dr. Dee Humphrey PROF 14(COMP METB)on 022 Albumin [Mass/Vol] 3.9 g/dL Normal 3.4-5.0 [facility] Comment on above: Performed By: #### L IPA, CMP #### [facility] [address] [address] [address] Dee Humphrey Albumin/Globulin [Mass ratio] 1.0 {ratio} Normal [facility] Comment on above: Performed By: #### L IPA, CMP #### [facility] [address] [address] [address] Dee Humphrey ALP [Catalytic activity/Vol] 87 U/L Normal 46-116 [facility] Comment on above: Performed By: #### L IPA, CMP #### [facility] [address] [place] [address] Dr. Dee Humphrey ALT [Catalytic activity/Vol] 31 U/L Normal 14-59 [facility] Comment on above: Performed By: #### L IPA, CMP #### [facility] [address] [place] [address] Dr. Dee Humphrey Anion gap [Moles/Vol] 10.8 mmol/L Normal [facility] Comment on above: Performed By: #### L IPA, CMP #### [facility] [address] [place] [address] Dr. Dee Humphrey AST [Catalytic activity/Vol] 17 U/L Normal 15-37 [facility] Comment on above: Performed By: #### L IPA, CMP #### [facility] [address] [place] [address] Dr. Dee Humphrey Bilirubin [Mass/Vol] 0.1 mg/dL Critically low 0.2-1.0 [facility] Comment on above: Performed By: #### L IPA, CMP #### [facility] [address] [place] [address] Dr. Dee Humphrey Calcium [Mass/Vol] 8.9 mg/dL Normal 8.5-10.1 [facility] Comment on above: Performed By: #### L IPA, CMP #### [facility] [address] [place] [address] Dr. Dee Humphrey Chloride [Moles/Vol] 103 mmol/L Normal 98-107 [facility] Comment on above: Performed By: #### L IPA, CMP #### [facility] [address] [address] [address] Dee Humphrey CO2 [Moles/Vol] 26.9 mmol/L Normal 21.0-32.0 [facility] Comment on above: Performed By: #### L IPA, CMP #### [facility] [address] [place] [address] Dr. Dee Humphrey Creatinine [Mass/Vol] 0.80 mg/dL Normal 0.55-1.02 [facility] Comment on above: Performed By: #### L IPA, CMP #### [facility] [address] [place] [address] Dr. Dee Humphrey EGFR-AF TUVALUAN >60 Normal >=60 [facility] Comment on above: Performed By: #### L IPA, CMP #### [facility] [address] [place] [address] Dr. Dee Humphrey EGFR-NON AF TUVALUAN >60 Normal >=60 [facility] Comment on above: Performed By: #### L IPA, CMP #### [facility] [address] [place] [address] Dr. Dee Humphrey Globulin (S) [Mass/Vol] 3.9 g/dL Normal [facility] Comment on above: Performed By: #### L IPA, CMP #### [facility] [address] [place] [address] Dr. Dee Humphrey Glucose [Mass/Vol] 96 mg/dL Normal 74-106 [facility] Comment on above: Performed By: #### L IPA, CMP #### [facility] [address] [place] [address] Dr. Dee Humphrey Potassium [Moles/Vol] 3.7 mmol/L Normal 3.5-5.1 [facility] Comment on above: Performed By: #### L IPA, CMP #### [facility] [address] [place] [address] Dr. Dee Humphrey Protein [Mass/Vol] 7.8 g/dL Normal 6.4-8.2 [facility] Comment on above: Performed By: #### L IPA, CMP #### [facility] [address] [place] [address] Dr. Dee Humphrey Sodium [Moles/Vol] 137 mmol/L Normal 136-145 [facility] Comment on above: Performed By: #### L IPA, CMP #### [facility] [address] [place] [address] Dr. Dee Humphrey Urea nitrogen [Mass/Vol] 13.0 mg/dL Normal 7.0-18.0 [facility] Comment on above: Performed By: #### L IPA, CMP #### [facility] [address] [place] [address] Dr. Dee Humphrey Urea nitrogen/Creatinine [Mass ratio] 16.2 mg/mg Normal [facility] Comment on above: Performed By: #### L IPA, CMP #### [facility] [address] [place] [address] Dr. Dee Humphrey CBC AUTO DIFFon 03-07-2022 BASO # 0.0 103/ul Normal 0.0-0.1 [facility] Comment on above: Performed By: #### C BC #### [facility] [address] [place] [address] Dr. Dee Humphrey Basophils/100 WBC (Bld) 0.3 % Normal 0.2-2.0 [facility] Comment on above: Performed By: #### C BC #### [facility] [address] [place] [address] Dr. Dee Humphrey EO # 0.1 103/ul Normal 0.0-0.7 [facility] Comment on above: Performed By: #### C BC #### [facility] [address] [place] [address] Dr. Dee Humphrey Eosinophils/100 WBC (Bld) 0.7 % Critically low 0.9-7.0 [facility] Comment on above: Performed By: #### C BC #### [facility] [address] [place] [address] Dr. Dee Humphrey Erythrocyte distribution width (RBC) [Ratio] 13.0 % Normal 11.0-15.0 [facility] Comment on above: Performed By: #### C BC #### [facility] [address] [place] [address] Dr. Dee Humphrey Hematocrit (Bld) [Volume fraction] 39.2 % Normal 36.0-48.0 [facility] Comment on above: Performed By: #### C BC #### [facility] [address] [place] [address] Dr. Dee Humphrey Hemoglobin (Bld) [Mass/Vol] 13.2 g/dL Normal 12.0-16.0 [facility] Comment on above: Performed By: #### C BC #### [facility] [address] [place] [address] Dr. Dee Humphrey IG # 0.05 10e3/ul Critically high 0.00-0.03 [facility] [place] [facility] Comment on above: Performed By: #### C BC #### [facility] [address] [place] [address] Dr. Dee Humphrey IG % 0.5 % Normal 0.0-0.5 [facility] Comment on above: Performed By: #### C BC #### [facility] [address] [place] [address] Dr. Dee Humphrey LYMPH # 4.2 103/ul Critically high 1.2-3.8 [facility] Comment on above: Performed By: #### C BC #### [facility] [address] [place] [address] Dr. Dee Humphrey Lymphocytes/100 WBC (Bld) 43.1 % Normal 20.5-60.0 [facility] Comment on above: Performed By: #### C BC #### [facility] [address] [place] [address] Dr. Dee Humphrey MANUAL DIFF REQ NO Normal [facility] Comment on above: Performed By: #### C BC #### [facility] [address] [place] [address] Dr. Dee Humphrey MCH (RBC) [Entitic mass] 30.5 pg Normal 26.7-34.0 [facility] Comment on above: Performed By: #### C BC #### [facility] [address] [place] [address] Dr. Dee Humphrey MCHC (RBC) [Mass/Vol] 33.7 g/dL Normal 29.9-35.2 [facility] Comment on above: Performed By: #### C BC #### [facility] [address] [place] [address] Dr. Dee Humphrey MCV (RBC) [Entitic vol] 90.5 fL Normal 81.0-99.0 [facility] Comment on above: Performed By: #### C BC #### [facility] [address] [place] [address] Dr. Dee Humphrey MONO # 0.4 103/ul Normal 0.3-0.8 [facility] Comment on above: Performed By: #### C BC #### [facility] [address] [place] [address] Dr. Dee Humphrey Monocytes/100 WBC (Bld) 4.4 % Normal 1.7-12.0 [facility] Comment on above: Performed By: #### C BC #### [facility] [address] [place] [address] Dr. Dee Humphrey NEUT # 4.9 103/ul Normal 1.4-6.5 [facility] Comment on above: Performed By: #### C BC #### [facility] [address] [place] [address] Dr. Dee Humphrey Neutrophils/100 WBC (Bld) 51.0 % Normal 43.0-75.0 [facility] Comment on above: Performed By: #### C BC #### [facility] [address] [place] [address] Dr. Dee Humphrey Platelet mean volume (Bld) [Entitic vol] 9.6 fL Normal 9.5-13.5 [facility] Comment on above: Performed By: #### C BC #### [facility] [address] [place] [address] Dr. Dee Humphrey PLT 364 103/ul Normal 150-450 [facility] Comment on above: Performed By: #### C BC #### [facility] [address] [place] [address] Dr. Dee Humphrey RBC 4.33 106/ul Normal 4.20-5.40 [facility] Comment on above: Performed By: #### C BC #### [facility] [address] [place] [address] Dr. Dee Humphrey WBC 9.7 103/ul Normal 4.0-11.0 [facility] Comment on above: Performed By: #### C BC #### [facility] [address] [place] [address] Dr. Dee Humphrey LACTATE/LACTIC ACIDon 2021 Lactate [Moles/Vol] 1.1 mmol/L Normal 0.4-1.9 [facility] Comment on above: Performed By: #### P CHARLI ERUR #### [facility] [address] [place] [address] Dr. Dee Humphrey LIPASEon 03-07-2022 Lipase [Catalytic activity/Vol] 79.0 U/L Normal 73.0-393.0 [facility] Comment on above: Performed By: #### C MP, LIPA #### [facility] [address] [place] [address] Dr. Dee Humphrey PROF 14(COMP METB)on 022 Albumin [Mass/Vol] 3.8 g/dL Normal 3.4-5.0 [facility] Comment on above: Performed By: #### C MP, LIPA #### [facility] [address] [place] [address] Dr. Dee Humphrey Albumin/Globulin [Mass ratio] 0.9 {ratio} Normal [facility] Comment on above: Performed By: #### C MP, LIPA #### [facility] [address] [place] [address] Dr. Dee Humphrey ALP [Catalytic activity/Vol] 80 U/L Normal 46-116 [facility] Comment on above: Performed By: #### C MP, LIPA #### [facility] [address] [place] [address] Dr. Dee Humphrey ALT [Catalytic activity/Vol] 27 U/L Normal 14-59 [facility] Comment on above: Performed By: #### C MP, LIPA #### [facility] [address] [address] [address] Dee Humphrey Anion gap [Moles/Vol] 9.5 mmol/L Normal [facility] Comment on above: Performed By: #### C MP, LIPA #### [facility] [address] [address] [address] Dee Humphrey AST [Catalytic activity/Vol] 13 U/L Critically low 15-37 [facility] Comment on above: Performed By: #### C MP, LIPA #### [facility] [address] [address] [address] Dee Humphrey Bilirubin [Mass/Vol] 0.1 mg/dL Critically low 0.2-1.0 [facility] Comment on above: Performed By: #### C MP, LIPA #### [facility] [address] [place] [address] Dr. Dee Humphrey Calcium [Mass/Vol] 9.0 mg/dL Normal 8.5-10.1 [facility] Comment on above: Performed By: #### C MP, LIPA #### [facility] [address] [address] [address] Dee Humphrey Chloride [Moles/Vol] 103 mmol/L Normal 98-107 [facility] Comment on above: Performed By: #### C MP, LIPA #### [facility] [address] [place] [address] Dr. Dee Humphrey CO2 [Moles/Vol] 27.1 mmol/L Normal 21.0-32.0 [facility] Comment on above: Performed By: #### C MP, LIPA #### [facility] [address] [address] [address] Dee Humphrey Creatinine [Mass/Vol] 0.86 mg/dL Normal 0.55-1.02 [facility] Comment on above: Performed By: #### C MP, LIPA #### [facility] [address] [address] [address] Dee Humphrey EGFR-AF TUVALUAN >60 Normal >=60 [facility] Comment on above: Performed By: #### C MP, LIPA #### [facility] [address] [address] [address] Dee Humphrey EGFR-NON AF TUVALUAN >60 Normal >=60 [facility] Comment on above: Performed By: #### C MP, LIPA #### [facility] [address] [address] [address] Dee Humphrey Globulin (S) [Mass/Vol] 4.1 g/dL Normal [facility] Comment on above: Performed By: #### C MP, LIPA #### [facility] [address] [address] [address] Dee Humphrey Glucose [Mass/Vol] 99 mg/dL Normal 74-106 [facility] Comment on above: Performed By: #### C MP, LIPA #### [facility] [address] [place] [address] Dr. Dee Humphrey Potassium [Moles/Vol] 3.6 mmol/L Normal 3.5-5.1 [facility] Comment on above: Performed By: #### C MP, LIPA #### [facility] [address] [place] [address] Dr. Dee Humphrey Protein [Mass/Vol] 7.9 g/dL Normal 6.4-8.2 [facility] Comment on above: Performed By: #### C MP, LIPA #### [facility] [address] [place] [address] Dr. Dee Humphrey Sodium [Moles/Vol] 136 mmol/L Normal 136-145 [facility] Comment on above: Performed By: #### C MP, LIPA #### [facility] [address] [place] [address] Dr. Dee Humphrey Urea nitrogen [Mass/Vol] 12.0 mg/dL Normal 7.0-18.0 [facility] Comment on above: Performed By: #### C MP, LIPA #### [facility] [address] [place] [address] Dr. Dee Humphrey Urea nitrogen/Creatinine [Mass ratio] 14.0 mg/mg Normal [facility] Comment on above: Performed By: #### C JENNIFER, YONIS #### [facility] [address] [address] [address] Dee Humphrey Consent for COVID Vaccineon 08-09-2020 SARS-CoV-2 (COVID-19) RNA J LUIS+probe Ql (Unsp spec) [id number]:127 [facility] Consent for Treatmenton 07-30 Consent for Treatment [id number]:127 [facility] Coding Summary.on 08-07-2020 Coding Summary. CODING DATE: 08/07/2020 FINAL [facility] STATUS: PAYOR: Luzma APC DESCRIPTION 1492 New [...] Paredes Date Saved: 08/07/2020 02:46 pm [facility] Ambulatory Clinical Summaryo n 03-25-2020 Ambulatory Clinical Summary {[id number]}CD:[id number] [facility] Patient Educationon 03-19-20 Patient Education lurasidone [...] irritable, agitate (more content not included)... Normal [facility] Video Visit - Telehealtho n [...] interactive video communications from my office using [employer] due to the restrictions of the COVID-19 pandemic. No physical exam was conducted other than those areas of the body visible to telecommunications with the patient located at [address] [place] [address] [phone], with no one else in attendance. If [...] (more content not included)... Normal [facility] Comment on above: Result Comment: Elec tronically Signed By: Deepa [facility], Maia Montero.mati\Date and Time Signed: 02/22/20 23:17 EDT Video Visit - Telehealtho n 10- Video Visit - Telehealth Start Time 3:00pm [...] interactive video communications from my office using [employer] due to the restrictions of the COVID-19 pandemic. No physical exam was conducted other than those areas of the body visible to telecommunications with the patient located at [address] [place] [address] [phone], with no one else in attendance. If [...] (more content not included)... Normal [facility] Comment on above: Result Comment: Elec tronically Signed By: [facility].mati\Date and Time Signed: 02/11/20 [...] interactive video communications from my office using [employer] due to the restrictions of the COVID-19 pandemic. No physical exam was conducted other than those areas of the body visible to telecommunications with the patient located at [address] [place] [address], with no one else in attendance. If [...] (more content not included)... Normal [facility] Comment on above: Result Comment: Elec tronically Signed By: Deepa [facility], Maia Montero.mati\Date and Time [...] interactive video communications from my office using [employer] due to the restrictions of the COVID-19 pandemic. No physical exam was conducted other than those areas of the body visible to telecommunications with the patient located at [address] [place] [address], with no one else in attendance. If [...] (more content not included)... Normal [facility] Comment on above: Result Comment: Elec tronically Signed By: Deepa [facility], Maia Ashley\.br\Date and Time Signed: 01/29/20 21:44 [...] interactive video communications from my office using [employer] due to the restrictions of the COVID-19 pandemic. No physical exam was conducted other than those areas of the body visible to telecommunications with the patient located at [address] [place] [address], with no one else in attendance. If [...] (more content not included)... Normal [facility] Comment on above: Result Comment: Elec tronically Signed By: Deepa [facility], Maia Ashley\.br\Date and Time Signed: 01/29/20 21:38 EDT Patient Educationon 01-28-20 20 Patient Education aripiprazole (AR i PIP ra anitha) Say Deal What is the most important [...] include drow (more content not included)... Normal [facility] Video Visit - Telehealtho n [...] interactive video communications from my office using [employer] due to the restrictions of the COVID-19 pandemic. No physical exam was conducted other than those areas of the body visible to telecommunications with the patient located at [address] [place] [address] [phone], with no one else in attendance. If [...] (more content not included)... Normal [facility] Comment on above: Result Comment: Elec tronically Signed By: Deepa [facility], Maia Ashley\.br\Date and Time Signed: 01/13/20 09:40 [...] include drow (more content not included)... Normal [facility] Video Visit - Telehealtho n [...] interactive video communications from my office using [employer] due to the restrictions of the COVID-19 pandemic. No physical exam was conducted other than those areas of the body visible to telecommunications with the patient located at [address] [place] [address] [phone], with no one else in attendance. If [...] (more content not included)... Normal [facility] Comment on above: Result Comment: Elec tronically Signed By: Deepa [facility], Maia Montero.mati\Date and Time [...] interactive video communications from my office using [employer] due to the restrictions of the COVID-19 pandemic. No physical exam was conducted other than those areas of the body visible to telecommunications with the patient located at [address] [place] [address] [phone], with no one else in attendance. If [...] (more content not included)... Normal [facility] Comment on above: Result Comment: Elec tronically Signed By: [facility]\Date and Time Signed: 12/30/19 13:50 EDT Video [...] interactive video communications from my office using [employer] due to the restrictions of the COVID-19 pandemic. No physical exam was conducted other than those areas of the body visible to telecommunications with the patient located at [address] [place] [address], with no one else in attendance. If [...] (more content not included)... Normal [facility] Comment on above: Result Comment: Elec tronically Signed By: Deepa [facility], Maia Montero.br\Date and Time Signed: 12/23/19 16:54 [...] include drow (more content not included)... Normal [facility] Video Visit - Telehealtho n [...] interactive video communications from my office using [employer] due to the restrictions of the COVID-19 pandemic. No physical exam was conducted other than those areas of the body visible to telecommunications with the patient located at [address] [place], [place] [phone], with no one else in attendance. If [...] (more content not included)... Normal [facility] Comment on above: Result Comment: Elec tronically Signed By: Deepa [facility], Maia Ashley\.br\Date and Time Signed: 12/04/19 09:42 [...] (more content not included)... Normal [facility] Vital Signs Date Time Vital Sign Value Performing Clinician Facility 05-29-2024 14:35-0500 Body mass index (BMI) [Ratio] 41.3 kg/m2 [employer] Work Phone: [facility] 05-29-2024 14:35-0500 Body weight 102.42 kg [employer] Work Phone: [facility] 05-29-2024 14:35-0500 Diastolic blood pressure 82 mm[Hg] [employer] Work Phone: [facility] 05-29-2024 14:35-0500 Systolic blood pressure 118 mm[Hg] Johnathan Jorje DO Work Phone: [facility] 05-22-2024 14:57-0500 Body mass index (BMI) [Ratio] 41.3 kg/m2 Johnathan Jorje DO Work Phone: [facility] 05-22-2024 14:57-0500 Body weight 102.42 kg Johnathan Jorje DO Work Phone: [facility] 05-22-2024 14:57-0500 Diastolic blood pressure 80 mm[Hg] Johnathan Jorje DO Work Phone: [facility] 05-22-2024 14:57-0500 Systolic blood pressure 110 mm[Hg] Johnathan Jorje DO Work Phone: [facility] 05-13-2024 15:04-0500 Body mass index (BMI) [Ratio] 41.67 kg/m2 Liza Kt PA Work Phone: [facility] 05-13-2024 15:04-0500 Body weight 103.33 kg Liza Oakfield PA Work Phone: [facility] 05-13-2024 15:04-0500 Diastolic blood pressure 82 mm[Hg] Liza Oakfield PA Work Phone: [facility] 05-13-2024 15:04-0500 Systolic blood pressure 140 mm[Hg] Liza Oakfield PA Work Phone: [facility] 04-03-2024 13:59-0500 Body mass index (BMI) [Ratio] 42.07 kg/m2 Johnathan Jorje DO Work Phone: [facility] 04-03-2024 13:59-0500 Body weight 104.33 kg Johnathan Jorje DO Work Phone: [facility] 04-03-2024 13:59-0500 Diastolic blood pressure 78 mm[Hg] Johnathan Jorje DO Work Phone: [facility] 04-03-2024 13:59-0500 Systolic blood pressure 110 mm[Hg] Johnathan Jorje DO Work Phone: [facility] 03-21-2024 14:01-0500 Body mass index (BMI) [Ratio] 41.7 kg/m2 Liza Oakfield PA Work Phone: [facility] 03-21-2024 14:01-0500 Body weight 103.42 kg Liza Kt PA Work Phone: [facility] 03-21-2024 14:01-0500 Diastolic blood pressure 72 mm[Hg] Liza Oakfield PA Work Phone: [facility] 03-21-2024 14:01-0500 Systolic blood pressure 112 mm[Hg] Liza Oakfield PA Work Phone: [facility] 03-11-2024 14:26-0500 Body mass index (BMI) [Ratio] 41.96 kg/m2 Liza Oakfield PA Work Phone: [facility] 03-11-2024 14:26-0500 Body weight 104.06 kg Liza Kt PA Work Phone: [facility] 03-11-2024 14:26-0500 Diastolic blood pressure 70 mm[Hg] Liza Kt PA Work Phone: [facility] 03-11-2024 14:26-0500 Systolic blood pressure 120 mm[Hg] Liza Oakfield PA Work Phone: [facility] 03-06-2024 11:20-0500 Body mass index (BMI) [Ratio] 41.34 kg/m2 Johnathan Jorje DO Work Phone: [facility] 03-06-2024 11:20-0500 Body weight 102.51 kg Johnathan Jorje DO Work Phone: [facility] 03-06-2024 11:20-0500 Diastolic blood pressure 68 mm[Hg] Johnathan Jorje DO Work Phone: [facility] 03-06-2024 11:20-0500 Systolic blood pressure 120 mm[Hg] Johnathan Jorje DO Work Phone: [facility] 02-21-2024 13:57-0400 Body mass index (BMI) [Ratio] 41.3 kg/m2 Johnathan Jorje DO Work Phone: [facility] 02-21-2024 13:57-0400 Body weight 102.42 kg Johnathan Jorje DO Work Phone: [facility] 02-21-2024 13:57-0400 Diastolic blood pressure 70 mm[Hg] Johnathan Jorje DO Work Phone: [facility] 02-21-2024 13:57-0400 Systolic blood pressure 100 mm[Hg] Johnathan Jorje DO Work Phone: [facility] 02-15-2024 13:03-0400 Body height 160 cm Malena Cardona MD Work Phone: [facility] 02-15-2024 13:03-0400 Body mass index (BMI) [Ratio] 39.65 kg/m2 Malena Cardona MD Work Phone: [facility] 02-15-2024 13:03-0400 Body weight 101.52 kg Malena Cardona MD Work Phone: [facility] 02-15-2024 13:03-0400 Diastolic blood pressure 74 mm[Hg] Malena Cardona MD Work Phone: [facility] 02-15-2024 13:03-0400 Heart rate 94 /min Malena Cardona MD Work Phone: [facility] 02-15-2024 13:03-0400 Systolic blood pressure 123 mm[Hg] Malena Cardona MD Work Phone: [facility] 01-24-2024 11:57-0400 Body mass index (BMI) [Ratio] 41.15 kg/m2 Johnathan Jorje DO Work Phone: [facility] 01-24-2024 11:57-0400 Body weight 102.06 kg Johnathan Jorje DO Work Phone: [facility] 01-24-2024 11:57-0400 Diastolic blood pressure 78 mm[Hg] Johnathan Jorje DO Work Phone: [facility] 01-24-2024 11:57-0400 Systolic blood pressure 124 mm[Hg] Johnathan Jorje DO Work Phone: [facility] 01-03-2024 15:02-0400 Body mass index (BMI) [Ratio] 42.07 kg/m2 Liza ANTONIO Work Phone: [facility] 01-03-2024 15:02-0400 Body weight 104.33 kg Liza ANTONIO Work Phone: [facility] 01-03-2024 15:02-0400 Diastolic blood pressure 74 mm[Hg] Liza ANTONIO Work Phone: [facility] 01-03-2024 15:02-0400 Systolic blood pressure 122 mm[Hg] Liza ANTONIO Work Phone: [facility] 12-25-2023 11:22-0400 Body mass index (BMI) [Ratio] 40.79 kg/m2 Johnathan Jorje DO Work Phone: [facility] 12-25-2023 11:22-0400 Body weight 101.15 kg Johnathan Jorje DO Work Phone: [facility] 12-25-2023 11:22-0400 Diastolic blood pressure 76 mm[Hg] Johnathan Jorje DO Work Phone: [facility] 12-25-2023 11:22-0400 Systolic blood pressure 122 mm[Hg] Johnathan Jorje DO Work Phone: [facility] 08-18-2023 14:24-0400 Body height 160.02 cm [facility] 08-18-2023 14:24-0400 Body mass index (BMI) [Ratio] 40.2 kg/m2 [facility] 08-18-2023 14:24-0400 Body temperature 98.4 [degF] [facility] 08-18-2023 14:24-0400 Body weight 103.02 kg [facility] 08-18-2023 14:24-0400 Diastolic blood pressure 81 mm[Hg] [facility] 08-18-2023 14:24-0400 Heart rate 101 /min [facility] 08-18-2023 14:24-0400 Respiratory rate 16 /min [facility] 08-18-2023 14:24-0400 SaO2% (BldA) [Mass fraction] 98 % [facility] 08-18-2023 14:24-0400 Systolic blood pressure 133 mm[Hg] [facility] 04-27-2023 16:30-0500 Body height 160.02 cm Sanaz Lockwood Other [facility] [employer] Other 04-27-2023 16:30-0500 Body mass index (BMI) [Ratio] 40.92 kg/m2 Sanaz Lockwood Other [employer] Other 04-27-2023 16:30-0500 Body temperature 98.2 [degF] Sanaz Lockwood Other [employer] Other 04-27-2023 16:30-0500 Body weight 104.78 kg Sanaz Lockwood Other [employer] Other 04-27-2023 16:30-0500 Respiratory rate 18 /min Sanaz Lockwood Other [employer] Other 04-27-2023 16:30-0500 SaO2% (BldA) [Mass fraction] 99 % Sanaz Lockwood Other [employer] Other 05-10-2022 14:45-0500 Body height 160.02 cm Kaylah Han Other [employer] Other 05-10-2022 14:45-0500 Body mass index (BMI) [Ratio] 38.97 kg/m2 Kaylah Han Other [employer] Other 05-10-2022 14:45-0500 Body temperature 99.3 [degF] Kaylah Han Other [employer] Other 05-10-2022 14:45-0500 Body weight 99.79 kg Kaylah Han Other [employer] Other 06-29-2019 22:40-0500 Pulse (Heart Rate) 84 /min [facility] 06-29-2019 22:40-0500 Pulse Oximetry 97 % [facility] 06-29-2019 22:35-0500 BP Diastolic 56 mm[Hg] [facility] 06-29-2019 22:35-0500 BP Systolic 100 mm[Hg] [facility] 06-29-2019 21:11-0500 BMI (Body Mass Index) 33.1 kg/m2 [facility] 06-29-2019 21:11-0500 Body Temperature 97.8 [degF] [facility] 06-29-2019 21:11-0500 Body weight 84.8 kg [facility] 06-29-2019 21:11-0500 Height 160.02 cm [facility] 06-29-2019 21:11-0500 Respiratory Rate 20 /min [facility] Encounters Encounter Date Encounter Type Care Provider Facility Start: 05-31-2024 End: 05-31-2024 Clinisync Result Encounter Liza ANTONIO Work Phone: [facility] External Department Unsolicited Start: 05-31-2024 End: 05-31-2024 [facility] Result Encounter Liza ANTONIO Work Phone: [facility] External Department Unsolicited Start: 05-30-2024 End: 05-30-2024 Clinisync Result Encounter Johnathan Jorje DO Work Phone: [facility] External Department Unsolicited Start: 05-30-2024 End: 05-30-2024 Clinisync Result Encounter Johnathan Jorje DO Work Phone: [facility] External Department Unsolicited Start: 05-29-2024 End: 05-29-2024 ambulatory JOHNATHAN JORJE Not Available Start: 05-29-2024 End: 05-29-2024 flow sheet Johnathan [...] Start: 04-22-2024 End: 04-22-2024 ambulatory Johnathan Jorje Facility:[facility] Start: 04-03-2024 End: 04-03-2024 Bamboo flowsheet [...] site unspecified Start: 04-03-2024 End: 04-03-2024 ambulatory JOHNATHANSage AHUMADAO Not Available Start: 03-21-2024 End: 03-21-2024 Clinisync Result Encounter Johnathan Jorje DO Work Phone: [facility] External Department Unsolicited Start: 03-21-2024 End: 03-21-2024 Clinisync Result Encounter Johnathan Jorje DO Work Phone: [facility] External Department Unsolicited Start: 03-21-2024 End: 03-21-2024 ambulatory LIZA DUQUE Not Available Start: 03-21-2024 End: 03-21-2024 flow sheet Liza ANTONIO Work Phone: [facility] Comment on above: Second trimester pre gnancy; 26 weeks gestation of ; Elevated glucose tolerance test; Gestational diabetes mellitus (GDM), antepartum, gestational diabetes method of control unspecified Start: 03-14-2024 End: 03-14-2024 [facility] Start: 03-11-2024 End: 03-11-2024 Bamboo flowsheet Liza ANTONIO Work Phone: [facility] Start: 03-11-2024 End: 03-11-2024 Bamboo flowsheet Liza ANTONIO Work Phone: [facility] Start: 03-11-2024 End: 03-11-2024 ambulatory LIZA DUQUE Not Available Start: 03-11-2024 End: 03-11-2024 flow sheet Liza ANTONIO Work Phone: [facility] Comment on above: 24 weeks gestation o f ; Second trimester ; Acute cystitis with hematuria Start: 03-06-2024 End: 03-06-2024 Clinisync Result Encounter Johnathan Jorje DO Work Phone: [facility] External Department Unsolicited Start: 03-06-2024 End: 03-06-2024 Clinisync Result Encounter Johnathan Jorje DO Work Phone: [facility] External Department Unsolicited Start: 03-06-2024 End: 03-06-2024 ambulatory JOHNATHAN JORJE Not Available Start: 03-06-2024 End: 03-06-2024 flow sheet Johnathan Jorje DO Work Phone: [facility] Comment on above: 24 weeks gestation o f ; Second trimester ; Flank pain; Acute cystitis with hematuria Start: 02-26-2024 End: 02-26-2024 ambulatory [facility] Start: 02-21-2024 End: 02-21-2024 Bamboo flowsheet Johnathan Jorje DO Work Phone: [facility] Start: 02-21-2024 End: 02-21-2024 Bamboo flowsheet Johnathan Jorje DO Work Phone: [facility] Start: 02-21-2024 End: 02-21-2024 ambulatory JOHNATHAN JORJE Not Available Start: 02-21-2024 End: 02-21-2024 flow sheet Johnathan Jorje DO Work Phone: [facility] Comment on above: 22 weeks gestation o f ; Second trimester ; Diabetes mellitus screening Start: 02-15-2024 End: 02-15-2024 Office consultation new/estab patient 60 min Malena Cardona MD Work Phone: Maternal- Medicine at 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 Comment on above: 21 weeks gestation o f (Primary Dx); Obesity affecting in second trimester, unspecified obesity type Start: 02-15-2024 End: 02-15-2024 ambulatory JOHNATHAN RECINOS [facility] Start: 02-09-2024 End: 02-09-2024 Evaluation and management of inpatient TEJ ZENG [facility] Start: 02-08-2024 End: 02-09-2024 Evaluation and management of inpatient NATO LLOYD [facility] Start: 01-24-2024 End: 01-24-2024 Bamboo flowsheet [...] Not Available Start: 08-18-2023 End: 08-18-2023 ambulatory [facility] Work Phone: Start: 08-18-2023 End: 08-18-2023 Patient encounter procedure [facility] Work Phone: Start: 04-27-2023 End: 04-27-2023 ambulatory Sanaz Lockwood Other [employer] Other Start: 04-27-2023 Office outpatient vi sit 25 minutes Sanaz Lockwood [facility] Start: 05-10-2022 End: 05-10-2022 ambulatory Kaylah Guille Other [facility] [employer] Other Start: 05-10-2022 Office outpatient ne w 20 minutes Kaylah Guille [facility] Start: 04-27-2022 End: 04-27-2022 ambulatory KIMBERLYN XIE Facility:H1 Start: 03-07-2022 End: 03-07-2022 ambulatory KIMBERLYN XIE Facility:[facility] Start: 09-23-[address] JAZIEL HILL Facility :[facility] Start: 06-29-2019 End: 06-29-2019 Emergency department patient visit Kimberlyn Xie [facility] Procedures Date Procedure Procedure Detail Performing Clinician Start: 05-31-2024 OB BPP W NON-STRESS Liza ANTONIO Work Phone: Start: 05-30-2024 US OB BPP W NON-STRESS [...] Work Phone: Start: 04-22-2024 [facility] UA (CLEAN/CATCH) MACROECONOMICS PROFESSOR/MICRO IF IND. Johnathan Jorje DO Work Phone: [...] Work Phone: Start: 03-06-2024 [facility] UA (CLEAN/CATCH) MACROECONOMICS PROFESSOR/MICRO IF IND. Johnathan Jorje DO Work Phone: [...] Start: 01-24-2024 AFP, SERUM, OPEN SPINA [facility] Work Phone: Start: 01-24-2024 Urnls dip stick/tablet rgnt non-auto w/o micrscp [facility] Work Phone: Start: 01-24-2024 Microscopic observation [Identifier] in Cervix by Cyto stain Flor Lopez RN Start: 01-03-2024 Urnls dip stick/tablet rgnt non-auto w/o micrscp Liza ANTONIO Work Phone: Start: 08-18-2023 Quick Strep (POC) Plan of Treatment Date Care Activity Detail Author Start: 01-23-2027 Screening for malign ant neoplasm of cervix [facility] Start: 02-14-2025 Adult BMI Screening Adult BMI Screen ing [facility] Start: 02-14-2025 Tobacco Screening Tobacco Screening [facility] Start: 02-14-2025 End: 02-14-2025 US MFM with or without consult US MFM with or without consult Imaging Routine 21 weeks gestation of Obesity affecting in second trimester, unspecified obesity type Expected: 02/14/2025 (Approximate), Expires: 02/14/2025 [employer] Work Phone: Comment on above: Expected: 02/14/2025 (Approximate), Expires: 02/14/2025 Start: 06-11-2024 End: 06-11-2024 Patient encounter procedure 06/11/2024 2:40 PM EST Office Visit [facility] [address] [place] [phone] Liza Duque PA [address] [place] [address] [facility] Start: 05-29-2024 End: 05-29-2024 Patient encounter procedure 05/29/2024 2:20 PM EST Routine [facility] [address] [facility] [place] [phone] Johnathan Recinos, DO [address] [place], [place] [id number] [facility] Start: 05-29-2024 End: 05-29-2025 CULTURE, GROUP B STREP WITH SUSCEPTIBLITY CULTURE, GROUP B STREP WITH SUSCEPTIBLITY Lab Routine Third trimester Expected: 05/29/2024, Expires: 05/29/2025 [facility] Work Phone: Comment on above: Expected: 05/29/2024 , Expires: 05/29/2025 Start: 05-22-2024 End: 05-22-2024 Patient encounter procedure 05/22/2024 2:20 PM EST Routine [facility] [address] [place] [address] [place] [phone] Johnathan Recinos, DO [address] [facility] [address] [place] [address] [facility] Start: 05-13-2024 End: 05-13-2025 [...] Procedure [facility] [address] [place] [phone] [facility] Start: 04-03-2024 End: 04-03-2024 Patient encounter procedure [facility] Comment on above: Arrived Start: 04-03-2024 End: 04-03-2024 Professional / ancillary services management 04/03/2024 1:00 PM EST Ancillary Procedure [facility] [address] [facility] [place] [phone] [facility] Start: 03-21-2024 End: 03-21-2025 Measurement of glucose 3 hours after glucose challenge for glucose tolerance test Glucose tolerance, 3 hours Lab Routine Elevated glucose tolerance test Expected: 03/21/2024 (Approximate), Expires: 03/21/2025 [facility] Work Phone: Comment on above: Expected: 03/21/2024 (Approximate), Expires: 03/21/2025 Start: 03-21-2024 End: 03-21-2025 US for US OB SCAN FOR GROWTH Imaging Routine Gestational diabetes mellitus (GDM), antepartum, gestational diabetes method of control unspecified Expected: 03/21/2024 (Approximate), Expires: 03/21/2025 [facility] Comment on above: Expected: 03/21/2024 (Approximate), Expires: 03/21/2025 Start: 03-21-2024 End: 03-21-2024 Patient encounter procedure 03/21/2024 1:30 PM EST Routine [facility] [address] [place] [phone] Liza Duque PA [address] [place] [address] [facility] Start: 03-14-2024 End: 03-14-2024 Patient encounter procedure 03/14/2024 9:45 AM EST Appointment [facility] [address] [place] [address] [facility] Start: 02-22-2024 End: 02-22-2024 Patient encounter procedure 02/22/2024 10:15 AM EDT Appointment [facility] [place] [address] [place] [address] [facility] [place] Start: 02-21-2024 End: 02-20-2025 CBC panel - [...] mellitus screening Expected: 02/21/2024 (Approximate), Expires: 02/20/2025 [facility] Comment on above: Expected: 02/21/2024 (Approximate), Expires: 02/20/2025 Start: 02-21-2024 End: 02-21-2024 Patient encounter procedure 02/21/2024 1:50 PM EDT Routine [facility] [address] [place] [phone] Johnathan Recinos DO [address] [place] [address] [facility] Start: 01-24-2024 End: 02-23-2024 Alpha fetoprotein, maternal Alpha fetoprotein, maternal Lab Routine 18 weeks gestation of Expected: 01/24/2024 (Approximate), Expires: 02/23/2024 [facility] Comment on above: Expected: 01/24/2024 (Approximate), Expires: 02/23/2024 Start: 01-22-2024 End: 01-22-2024 Patient encounter procedure 01/22/2024 10:20 AM EDT Routine [facility] [address] [place] [address] Johnathan Recinos, DO [address] [facility] [place] [address] [facility] Start: 12-31-2023 COVID-19 Vaccine ( season) COVID-19 Vaccine ( season) [facility] Start: 12-31-2023 Influenza vaccination [facility] Start: 10-11-2021 DTaP,Tdap and Td Vaccines (2 - Td or Tdap) DTaP,Tdap and Td Vaccines (2 - Td or Tdap) [facility] Start: 2017 Screening for malign ant neoplasm of cervix [facility] Start: 2008 Screening for malign ant neoplasm of cervix Pap Smear [facility] Start: 2005 Adult BMI Follow Up Plan Adult BMI Follow Up Plan [facility] Start: 1999 [facility] identified in Urine by Culture Urine culture Microbiology Routine 24 weeks gestation of Second trimester Ordered: 03/06/2024 [facility] Work Phone: Comment on above: Ordered: 03/06/2024 Bacteria identified in Urine by Culture Urine culture Microbiology Routine Flank pain Acute cystitis with hematuria Urinary tract infection without hematuria, site unspecified Ordered: 04/03/2024 [facility] Work Phone: Comment on above: Ordered: 04/03/2024 CHLAMYDIA TRACHOMATI S (GENITO/STI) CHLAMYDIA TRACHOMATIS (GENITO/STI) Lab Routine Exposure to STD Ordered: 01/24/2024 [facility] Comment on above: Ordered: 01/24/2024 Cytology Cervical or vaginal smear or scraping study Pap Smear Pathology and Cytology Routine Well woman exam with routine gynecological exam Ordered: 01/24/2024 [facility] Comment on above: Ordered: 01/24/2024 Human papilloma viru s DNA [Presence] in Unspecified specimen by Probe with amplification HPV DNA probe, amplified Microbiology Routine Well woman exam with routine gynecological exam Ordered: 01/24/2024 [facility] Comment on above: Ordered: 01/24/2024 Neisseria gonorrhoea e DNA [Presence] in Unspecified specimen by J LUIS with probe detection Neisseria gonorrhea DNA probe, direct Lab Routine Exposure to STD Ordered: 01/24/2024 [facility] Comment on above: Ordered: 01/24/2024 Patient Education Epinephrine (B y injection) Anaphylaxis (ED) General Allergic Reaction (ED) [facility] Patient referral [facility] SURESWAB(R) ADVANCED VAGINITIS PLUS, TMA SURESWAB(R) ADVANCED VAGINITIS PLUS, TMA Pathology and Cytology Routine Vaginal discharge Ordered: 01/24/2024 [facility] Work Phone: Comment on above: Ordered: 01/24/2024 Immunizations Immunization Date Immunization Notes Care Provider Butch sims 06-02-2008 influenza virus vacc ine, unspecified formulation Johnathan Recinos DO Work Phone: [facility] Payers Date Payer Category Payer Self-pay [id number] 2024 Private Health Insurance [facility] MEDICAID [id number] 2024 Medicaid [id number] 2023 [facility] [id number] 2023 Blue Cross Blue Shie ld Managed Care - PPO ANTHEM [id number] 2023 Unknown BCBS BCBS [id number] [id number] 2023-Present [phone] [id number] [place], [place] [id number] 1987 Unknown [id number] 2.16.840.1.736954.3.579.2 .593 1987 Unknown [id number] 2.16.840.1.092477.3.579.2 .593 1987 Unknown [id number] 2.16.840.1.296714.3.579.2 .593 1987 Unknown [id number] 2.16.840.1.138200.3.579.2 .1286 1987 Unknown [id number] 2.16.840.1.666821.3.579.2 .128 1987 Unknown [id number] 2.16.840.1.010636.3.579.2 .1285 1987 Unknown [id number] 2.16.840.1.953654.3.579.2 .1285 1987 Unknown [id number] 2.16.840.1.751068.3.579.2 .1285 1987 Unknown [id number] 2.16.840.1.777033.3.579.2 .1285 1987 Unknown [id number] 2.16.840.1.941856.3.579.2 .1258 1987 Unknown [id number] 2.16.840.1.029757.3.579.2 .1258 1987 Unknown [id number] 2.16.840.1.446683.3.579.2 .1258 1987 Unknown [id number] 2.16.840.1.914188.3.579.2 .1258 1987 Unknown [id number] 2.16.840.1.022748.3.579.2 .1258 1987 Unknown [id number] 2.16.840.1.562481.3.579.2 .1258 1987 Unknown [id number] 2.16.840.1.866121.3.579.2 .1258 1987 Unknown [id number] 2.16.840.1.938764.3.579.2 .1258 1987 Unknown [id number] 2.16.840.1.753039.3.579.2 .1258 1987 Unknown [id number] 2.16.840.1.559127.3.579.2 .1258 1987 Unknown [id number] 2.16.840.1.600410.3.579.2 .1258 1987 Unknown [id number] 2.16.840.1.449252.3.579.2 .1259 1987 Unknown [id number] 2.16.840.1.836191.3.579.2 .1259 1959 Self-pay [id number] 1959 Unknown [id number] Private Health Insurance [id number] Unknown [id number] 2.16.840.1.644609.3.579.2 .531 Social History Date Type Detail Facility Start: 06-29-2019 End: 08-18-2023 Tobacco smoking status WVIS Smoker (finding) [facility] Start: 1985 Sex Assigned At Female [facility] Start: 06-10-2020 End: 02-15-2024 Sex Assigned At [employer] Other Start: 02-15-2024 Tobacco smoking status [facility] Ex-smoker [facility] Start: 02-15-2024 Tobacco use and exposure Smokeless tobacco non-user [facility] Start: 02-15-2024 Alcoholic beverage intake Lifetime non-drinker (finding) [facility] Start: 06-10-2020 End: 02-15-2024 History of Social function [facility] Childcare Unknown [facility] Start: 02-15-2024 Tobacco Comment PT IS A VAPER [facility] Start: 10-03-2023 [facility] Start: 1987 Sex assigned at Not on file [facility] Start: 12-02-2014 Sex Female (finding) [facility] Start: 02-08-2024 Sexual orientation Heterosexual (finding) [facility] Tobacco smoking stat [facility] Tobacco smoking consumption unknown [facility] Start: 10-26-2023 Gender identity Identifies as female gender (finding) [facility] Medical Equipment Procedure Code Equipment Code Equipment Original Text Equipment Identifier Dates 1 strip by In Vi tro route Daily Use in the morning prior to breakfast, 1 hour after each meal for a total of 4times daily. [id number] Start: 03-25-2024 End: 04-24-2024 1 each by In Vit ro route Daily Use to check FSBS four times daily [id number] Start: 03-25-2024 End: 04-24-2024 Inject 1 each un vickie the skin See administration instructions Use four times daily with insulin pen. [id number] Start: 05-13-2024 End: 06-12-2024 Use as instructed [id number] Start: 05-22-2024 Goals Date Patient Goal Desired Activity /State Personal health goal Comment on above: Formatting of this n ote might be different from the original. Evaluation of progress towards goal: go home today Clinical Notes 12-02-2019 to 05-29-2024 Gayle Hendricks, [facility] - 05/29/2024 2:20 PM GERMAINGayle Zavaletadomingo, [facility] - 05/22/2024 2:20 PM Claude Guillermo, [facility] - 05/13/2024 1:50 PM Meghna Hendricks, [facility] - 04/03/2024 1:40 PM EST Note Date [...] nursing note reviewed. Exam conducted with a parliamentary archivist present. Vitals: Estimated body mass index is [...] Johnathan Recinos DO documented in this encounter [facility] 05-22-2024 History of Present illness Narrative Reason for Appointment: Patient ID: Mikaela Ruiz is a 39 y.o. female who presents for Routine Visit Patient presents today for Return OB appointment. MEDICATIONS Current Outpatient Medications Medication Instructions Alcohol Swabs (Alcohol Prep Pad) 70 % pads 1 Pad, Topical, Daily, Use four times daily to check FSBS. aspirin 81 mg, Daily Blood Glucose Monitoring Suppl ([employer] Glucometer) w/Device kit 1 kit, Does not [...] nursing note reviewed. Exam conducted with a parliamentary archivist present. Vitals: Estimated body mass index is [...] Johnathan Recinos DO documented in this encounter [facility] 05-13-2024 History of Present illness Narrative Reason [...] 81 mg, Daily Blood Glucose Monitoring Suppl ([employer] Glucometer) w/Device kit 1 kit, Does not [...] nursing note reviewed. Exam conducted with a parliamentary archivist present. Vitals: Estimated body mass index is [...] Johnathan Recinos DO documented in this encounter [facility] 04-03-2024 History of Present illness Narrative Reason for Appointment: Patient ID: Mikaela Ruiz is a 38 y.o. female who presents for Routine Visit Patient presents today for Return OB appointment. MEDICATIONS Current Outpatient Medications Medication Instructions Alcohol Swabs (Alcohol Prep Pad) 70 % pads 1 Pad, Topical, Daily, Use four times daily to check FSBS. aspirin 81 mg, Daily Blood Glucose Monitoring Suppl ([employer] Glucometer) w/Device kit 1 kit, Does not [...] Medical History: Diagnosis Date Bipolar 1 disorder ([facility]) HISTORY PAST MEDICAL HISTORY SOCIAL HISTORY Past Medical History: Diagnosis Date Bipolar 1 disorder ([facility]) Social History Tobacco Use Smoking status: Not [...] nursing note reviewed. Exam conducted with a parliamentary archivist present. Vitals: Estimated body mass index is [...] Johnathan Recinos DO documented in this encounter [facility] 03-21-2024 History of Present illness Narrative Reason [...] History: Diagnosis Date Bipolar 1 disorder ([facility]) Social History Tobacco Use Smoking status: Not [...] hour glucose order to have done at [facility]. Patient DECLINES 3 hour gtt and would like to start testing FSBS--Patient will be referred to Diabetic Edu at [facility]. Follow Up: Patient is to return to office in 2 week for routine OB appointment. Documented by Nettie Frazier MA on behalf of: Liza Oakfield, PA documented in this encounter [facility] 03-11-2024 History of Present illness Narrative Reason [...] nursing note reviewed. Exam conducted with a parliamentary archivist present. Vitals: Estimated body mass index is [...] of . Nursing will reach out to [facility] to inquire about culture results. Patient does have follow up appointment with Maternal Medicine. Patient to return to clinic in 4 weeks for routine OB appointment. Documented by Barbara Guillermo LPN on behalf of: PACO Freed documented in this encounter [facility] 03-06-2024 History of Present illness Narrative Reason [...] Medical History: Diagnosis Date Bipolar 1 disorder ([facility]) HISTORY PAST MEDICAL HISTORY SOCIAL HISTORY Past Medical History: Diagnosis Date Bipolar 1 disorder ([facility]) Social History Tobacco Use Smoking status: [...] nursing note reviewed. Exam conducted with a parliamentary archivist present. Vitals: Estimated body mass index is [...] Johnathan Recinos DO documented in this encounter [facility] 02-21-2024 History of Present illness Narrative Reason [...] Medical History: Diagnosis Date Bipolar 1 disorder ([facility]) HISTORY PAST MEDICAL HISTORY SOCIAL HISTORY Past Medical History: Diagnosis Date Bipolar 1 disorder ([facility]) Social History Tobacco Use Smoking status: Not [...] nursing note reviewed. Exam conducted with a parliamentary archivist present. Vitals: Estimated body mass index is [...] NST/BPPs at 34 weeks Documented by Gayle Hednricks LPN on behalf of: Johnathan Recinos DO documented in this encounter [facility] 02-15-2024 History of Present illness Narrative [facility] [...] Medical History: Diagnosis Date Bipolar 1 disorder ([facility]) Depression PSHIST: Past Surgical History: Procedure Laterality [...] 4. Bipolar disease during in second trimester ([facility]) I reviewed with the patient that stability [...] of withdrawal and extrapyramidal effects on reviewed. Broadcast Producer should be notified. Lack of controlled human [...] . For prevention of venous thromboembolism in [id number] groups, pharmacologic thromboprophylaxis should be considered in [...] prevention Cervical length at 22 weeks at [facility] Follow up survey scheduled Serial growth assessments every 4 weeks after the anatomy scan can be done at OB office. ventricles should be measured at each US. If >=10 mm or concern for hydrocephalus refer to M. If you would like [facility] to do the growth US please [...] Maternal- [facility] [address] [place] [address] This document was created with [employer] technology. Though I make every effort to review the dictation as it is transcribed, on occasion the spoken word can be misinterpreted by the technology leading to inappropriate words, phrases, or sentences. This note is addressed to the requesting provider as a consultation for clinical guidance. Specific medical abbreviations are occasionally used and those are generally approved by the [place]?Board of?Obstetrics and?Gynecology?as well as?Jeri lane abbreviations. The above plan of care was based solely on the diagnoses for which a consultation was requested. ?More frequent testing may be indicated based on her other medical/obstetrical conditions. The management of other or medical conditions is beyond the scope of requested consultation and will continue to be followed by the primary drink mixer or primary care provider. Note to [...] yes Have you been seen here at [facility] in a previous ? yes Recent ER visits or hospitalizations? 02/07 kidney and bladder infection Bring blood sugar log or meter with you today? (Please bring them with you for every visit at [facility]) na Flu vaccine (Mar-June)? na Any concerns that you would like me to mention to the provider today? no documented in this encounter [facility] [employer] 01-24-2024 History of Present illness Narrative Reason [...] 4 section, pt to be referred to [facility] for level II ultrasound. Pt to [...] Johnathan Recinos DO documented in this encounter [facility] 01-03-2024 History of Present illness Narrative Reason [...] Medical History: Diagnosis Date Bipolar 1 disorder ([facility]CC) HISTORY PAST MEDICAL HISTORY SOCIAL HISTORY [...] of: PACO Freed documented in this encounter [facility] 12-25-2023 History of Present illness Narrative Reason [...] Medical History: Diagnosis Date Bipolar 1 disorder ([facility]) HISTORY PAST MEDICAL HISTORY SOCIAL HISTORY Past [...] nursing note reviewed. Exam conducted with a parliamentary archivist present. Vitals: Estimated body mass index is [...] or undercooked meat, and stay away from [facility]. Patient has been consulted regarding any further do's and don'ts of . Patient voiced understanding and all questions and concerns were answered. Patient complaints of nausea not helped by oral medications. [facility] Patient aware that [facility] will reach out to her to initiate therapy. Follow Up: Patient is to return in 4 weeks for routine OB appointment. Documented by Barbara Guillermo LPN on behalf of: Liza Duque PA-C documented in this encounter [facility] 04-27-2023 Evaluation note Encounter Date Diagnosis Assessment [...] condition. Mar, Sore throat (ICD-10 - J02.9) [employer] Other 01-10-2023 Evaluation note* Encounter Date Diagnosis [...] weeks for the cough to go away [employer] Other 11-07-2022 NoteIndication: Abdominal pain. Comparison: None [...] evidence of diverticulitis. Electronically authenticated by: SURJIT FREITSA Date: 2022-03-07 20:49[facility] NoteHPI Staff This visit was conducted via phone communications from my office due to the restrictions of the COVID-19 pandemic. No physical exam was conducted due to audio only communication with the patient located at [address] [place] [phone], with no one else. If it is [...] up via telehealth phone from [facility]. Patient started Latuda 20mg last evening [...] anxiety, # 30 tab(s), Refills(s) 2, Pharmacy: [facility]/pharmacy #[id number], 161, cm, 12/23/19 10:18:00 EDT, Height/Length Dosing, 82, kg, 12/23/19 10:18:00 EDT, Weight Dosing Orders: lurasidone, 20 mg = 1 tab(s), Oral, Daily, with 350 calories; begin this dose first then progress to next dose of 40mg, X 1 week(s), # 7 tab(s), Refills(s) 0, Pharmacy: [facility]/pharmacy #[id number], 161, cm, 12/23/19 10:18:00 EDT, Height/Length Dosing, 82, kg, 12/23/19 10:... lurasidone, 40 mg = 1 tab(s), Oral, Daily, with 350 calories, # 30 tab(s), Refills(s) 1, Pharmacy: [facility]/pharmacy #[id number], 161, cm, 12/23/19 10:18:00 EDT, [...] disorder) Hidr (more content not included)...[facility] Center[facility] on above: Result Comment: Electronically Signed By: Carlota RODRIGUEZ CNP\.br\Date and Time Signed: 03/19/20 14:27 [id number] NoteI Staff This visit was conducted via two-way, real-time interactive video communications from my office using Basha due to the restrictions of the COVID-19 pandemic. No physical exam was conducted other than those areas of the body visible to telecommunications with the patient located at [address] [place], [place] [phone], with no one else in attendance. If [...] Ordered: TELEHEALTH Office Visit Level 3 Est 27235 General Treatment Plan Maintain medication regimen _Improve [...] Home/Environment Sylvia (more content not included)...[facility] CenterComment on above: Result Comment: Electronically Signed By: Carlota RODRIGUEZ CNP\.mati\Date and Time Signed: 03/05/20 13:32 [id number] NoteI Staff This visit was conducted via two-way, real-time interactive video communications from my office using Basha due to the restrictions of the COVID-19 pandemic. No physical exam was conducted other than those areas of the body visible to telecommunications with the patient located at [address] [place] [address], with no one else in attendance. If [...] # 30 tab(s), Refills(s) 1, [id number], cm, 12/23/19 10:18:00 EDT, Height/Length Dosing, 82, kg, 12/23/19 10:18:00 EDT, Weight Dosing alprazolam, 0.5 mg = 1 tab(s), Oral, TID, PRN for anxiety, # 30 tab(s), Refills(s) 1, Pharmacy: [facility]/pharmacy #[id number], 161, cm, 12/23/19 10:18:00 EDT, Height/Length Dosing, 82, kg, 12/23/19 10:18:00 EDT, Weight Dosing aripiprazole, See Instructions, 1.5 tab po qAM, # 30 tab(s), Refills(s) 2, Pharmacy: [facility]/pharmacy #[id number], 161, cm, 12/23/19 10:18:00 EDT, Height/Length Dosing, 82, kg, 12/23/19 10:18:00 EDT, Weight Dosing aripiprazole, See Instructions, 1 tab po qAM, # 30 tab(s), Refills(s) 5, Pharmacy: [facility]/pharmacy #[id number], 161, cm, 12/23/19 10:18:00 EDT, Height/Length Dosing, 82, kg, 12/23/19 10:18:00 EDT, Weight Dosing cyclobenzaprine, 10 mg = 1 tab(s), Oral, TID, PRN for spasm, # 30 tab(s), Refills(s) 1, Pharmacy: [facility]/pharmacy #[id number], 161, cm, 06/13/19 14:39:00 EST, Height/Length Measured, 82, kg, 06/13/19 14:39:00EST, Weight Measured cyclobenzaprine, 10 mg = 1 tab(s), Oral, TID, PRN for spasm, # 30 tab(s), Refills(s) 1, Pharmacy: [facility]/pharmacy #[id number], 161, cm, 12/23/19 10:18:00 EDT, Height/Length Dosing, 82, kg, 12/23/19 10:18:00 EDT, Weight Dosing General Treatment Plan Maintain medication regimen _Improve mood stability _Improve anxiety control _Improve social and interpersonal functioning Clinical Global Impression 62 Prognosis progressing Follow-up With When Contact Information Carlota RODRIGUEZ CNP In 4 weeks Additional Instructions: (more content not included)...[facility] CenterComment on above:Result Comment: Electronically Signed By: Carlota RODRIGUEZ CNP\.br\Date and Time Signed: 01/27/20 22:35 [id number] NoteI Staff This visit was conducted via two-way, real-time interactive video communications from my office using Th[employer] due to the restrictions of the COVID-19 pandemic. No physical exam was conducted other than those areas of the body visible to telecommunications with the patient located at [address] [place] [phone], with no one else in attendance. If [...] Ordered: TELEHEALTH Office Visit Level 3 Est 81284 General Treatment Plan Maintain medication regimen _Improve [...] Smokeless Tob (more content not included)...[facility] CenterComment on above:Result Comment: Electronically Signed By: Carlota RODRIGUEZ CNP\.br\Date and Time Signed: 01/13/20 09:11 [id number] NoteI Staff This visit was conducted via two-way, real-time interactive video communications from my office using [employer] due to the restrictions of the COVID-19 pandemic. No physical exam was conducted other than those areas of the body visible to telecommunications with the patient located at [address] [place] [address], with no one else in attendance. If [...] anxiety, # 30 tab(s), Refills(s) 1, Pharmacy: [facility]/pharmacy #[id number], 161, cm, 12/23/19 10:18:00 EDT, Height/Length Dosing, 82, kg, 12/23/19 10:18:00 EDT, Weight Dosing alprazolam, 0.5 mg = 1 tab(s), Oral, TID, PRN for anxiety, # 30 tab(s), Refills(s) 1, Pharmacy: [facility]/pharmacy #[id number], 161, cm, 06/13/19 14:39:00 EST, Height/Length Measured, 82, kg, 06/13/19 14:39:00 EST, Weight Measured aripiprazole, See Instructions, 1 tab po qAM, # 30 tab(s), Refills(s) 0, Pharmacy: [facility]/pharmacy #[id number], 161, cm, 12/23/19 10:18:00 EDT, [...] Social History (more content not included)...[facility] CenterComment on above:Result Comment: Electronically Signed By: Carlota RODRIGUEZ CNP\harshil\Date and Time Signed: 12/23/19 16:37 [id number] NoteHPI Staff This visit was conducted via two-way, real-time interactive video communications from my office using [employer] due to the restrictions of the COVID-19 pandemic. No physical exam was conducted other than those areas of the body visible to telecommunications with the patient located at [address] [place] [address], with no one else in attendance. If [...] q24hr, # 30 tab(s), Refills(s) 2, Pharmacy: [facility]/pharmacy #[id number],161, cm, 06/13/19 14:39:00 EST, Height/Length Measured, 82, kg, 06/13/19 14:39:00 EST, Weight Measured cyclobenzaprine, 10 mg = 1 tab(s), Oral, TID, PRN for spasm, # 30 tab(s), Refills(s) 1, Pharmacy: [facility]/pharmacy #[id number], 161, cm, 06/13/19 14:39:00 EST, [...] 03/18/2019 Home/Environment (more content not included)...[facility] CenterComment on above:Result Comment: Electronically Signed By: Carlota RODRIGUEZ CNP\.br\Date and Time Signed: 12/02/19 16:38 EDTChief complaint+Reason for visit Narrative* Chief Complaint Nausea, diarrhea, fe zhou Reason for Visit Contact with and (guillen spected) exposure to covid-19 Sore throat [facility] Work Phone: Evaluation note* Diagnosis Onset Date Resolution Status Contact with and (suspected) exposure to covid-19 noneactive Sore throat noneactive [facility] Work Phone: Evaluation note* Diagnosis 21 weeks gestation of - Primary Obesity affecting in second trimester, unspecified obesity type documented in this encounter [facility]* Diagnosis 21 weeks gestation of - Primary Multigravida of advanced maternal age in second trimester Pyelonephritis affecting in second trimester Bipolar disease during in second trimester ([facility]) Obesity affecting in second trimester, unspecified obesity type BMI 39.0-39.9,adult History of section complicating Previous delivery, unspecified as to episode of care or not applicable Vapes nicotine containing substance Current rao with 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, antepartum History of delivery, currently with history of pre-term labor [facility]* Diagnosis 22 weeks gestation of Second trimester state, incidental Diabetes mellitus screening Screening for diabetes mellitus documented in this encounter [facility]* Diagnosis 24 weeks gestation of Second trimester state, incidental Flank pain Abdominal pain, unspecified site Acute cystitis with hematuria documented in this encounter [facility]* Diagnosis 24 weeks gestation of Second trimester state, incidental Acute cystitis with hematuria documented in this encounter [facility]* Diagnosis Second trimester state, incidental 26 weeks gestation of Elevated glucose tolerance test Impaired glucose tolerance test Gestational diabetes mellitus (GDM), antepartum, gestational diabetes method of control unspecified documented in this encounter [facility]* Diagnosis 28 weeks gestation of Third trimester state, incidental Flank pain Abdominal pain, unspecified site Acute cystitis with hematuria Urinary tract infection without hematuria, site unspecified documented in this encounter [facility]* Diagnosis Second trimester state, incidental documented in this encounter [facility]* Diagnosis Rash Rash and other nonspecific skin eruption Second trimester state, incidental documented in this encounter [facility]* Diagnosis 18 weeks gestation of Well woman exam with routine gynecological exam Routine gynecological examination Screening, , for anatomic survey Encounter for anatomic survey Exposure to STD Vaginal discharge Leukorrhea, not specified as infective documented in this encounter [facility]* Diagnosis 33 weeks gestation of [...] Hospitalization History see above surgical histo ry [employer] Other InstructionsNot on filedocumented in this encounter [facility] [facility]* Attachments The following attachments cannot be sent through Care Everywhere. * Preeclampsia (Israeli) * Movement (Israeli) [facility] Advance Directives No Advanced Directives Records [...] may need to be seen by an newspaper inserter if you have other events like this without definite egg exposure. Summary Purpose Family History No Family History Records Found Relationship Condition Age at Onset Recorded Date/T alo father Diabetes mellitus Unknown Hypertension Unknown Additional Source Comments INFORMATION SOURCE (unrecogn ized section and content) DATE CREATED AUTHOR 10/30/2020 [facility] DATE CREATED AUTHOR AUTHOR'S ORGANIZ ATION 04/29/2022 [facility] DATE CREATED AUTHOR AUTHOR'S ORGANIZ ATION 03/16/[address] [facility] DATE CREATED AUTHOR AUTHOR'S ORGANIZ ATION 04/25/2024 [facility] DATE CREATED AUTHOR AUTHOR'S ORGANIZ ATION 05/31/2024 [facility] EPIC REASON FOR VISIT [...] Inactive Member Role Status Dates Kimberlyn Xie NP-Tori Primary Care Provider Active Start: August 18, 2023 End: August 18, 2023 Sanaz Lockwood APRN Attending Provider Active Start: August 18, 2023 End: August 18, 2023 [employer] Relationship Specialty Start Date End Date No Pcp, [place] [address] PCP - General Family Medicine 03/12/19 [employer] Relationship Specialty Start Date End Date No Pcp, [place] [address] PCP - General Family Medicine 03/12/19 Goals [...] BASED ON THE PRIMARY CLINICAL RECORDS. [facility] [employer] provides no warranty or guarantee of the accuracy or completeness of information in this document.
[2024-06-04] MEDS: 0.9 % SODIUM CHLORIDE 1,000 ML 1000 ML IV ×2 (11:10→11:59)
[2024-06-04 11:22] LABS: Basophils Percent Auto 0.1 % (0.2-2.0); Eosinophils Percent Auto 0.6 % (0.9-7.0); Hematocrit 35.4 % (36.0-48.0); Hemoglobin 11.7 g/dL (12.0-16.0); Immature Granulocytes Abs Auto 0.03 10^3/uL (0.00-0.03); Immature Granulocytes Pct Auto 0.4 % (0.0-0.5); Lymphocytes Absolute Auto 1.7 10^3/uL (1.2-3.8); Mean Corpuscular HGB Conc 33.1 g/dL (29.9-35.2); Mean Corpuscular Hemoglobin 28.7 pg (26.7-34.0); Monocytes Absolute Auto 0.3 10^3/uL (0.3-0.8); Monocytes Percent Auto 4.4 % (1.7-12.0); Neutrophils Absolute Auto 4.9 10^3/uL (1.4-6.5); Neutrophils Percent Auto 70.5 % (43.0-75.0); Platelet Count 278 10^3/uL (150-450); Red Blood Count 4.07 10^6/uL (4.20-5.40); Red Cell Distribution Width 13.2 % (11.0-15.0)
[2024-06-04 11:25] LABS: Bilirubin Urine NEGATIVE (NEGATIVE); Blood Urine NEGATIVE (NEGATIVE); Clarity Urine CLEAR (CLEAR); Color Urine YELLOW (YELLOW); Glucose Urine UA NEGATIVE (NEGATIVE); Ketones Urine 15 mg/dL (NEGATIVE); Leukocyte Esterase Urine SMALL (NEGATIVE); Nitrite Urine NEGATIVE (NEGATIVE); Protein Urine TRACE mg/dL (NEG/TRACE); Specific Gravity Urine 1.025 (1.005-1.025); Urobilinogen Urine 0.2 EU/dL (0.2-1.0)
[2024-06-04 11:25] LABS: Glucometer 73 mg/dL (74-106)
[2024-06-04] MEDS: CITRIC ACID/SODIUM CITRATE 30 ML SOLUTION ORACIT SHOHL'S SOLN PO (11:25)
[2024-06-04] MEDS: METOCLOPRAMIDE HCL 10 MG/2 ML VIAL IVP (11:26)
[2024-06-04] MEDS: FAMOTIDINE/PF 20 MG/2 ML VIAL IV (11:27)
[2024-06-04 11:41] LABS: Amphetamine Screen Urine NEGATIVE (NEGATIVE); Barbiturates Screen Urine NEGATIVE (NEGATIVE); Benzodiazepines Screen Urine NEGATIVE (NEGATIVE); Buprenorphine Screen Urine NEGATIVE (NEGATIVE); Cannabinoid Screen Urine NEGATIVE (NEGATIVE); Cocaine Screen Urine NEGATIVE (NEGATIVE); Methadone Screen Urine NEGATIVE (NEGATIVE); Methamphetamines Screen Urine NEGATIVE (NEGATIVE); Opiate Screen Urine NEGATIVE (NEGATIVE); Oxycodone Screen Urine NEGATIVE (NEGATIVE); Phencyclidine Screen Urine NEGATIVE (NEGATIVE); Tricyclic Antidepressant Urine NEGATIVE (NEGATIVE)
[2024-06-04 11:51] LABS: Bacteria Urine LARGE #/HPF (NONE SEEN); Mucus Urine NONE SEEN (NONE SEEN); RBC Urine NONE SEEN #/HPF (0-2); Squamous Epithelial Cell Urine MANY #/LPF (NONE/RARE)
[2024-06-04] MEDS: CEFAZOLIN SODIUM/DEXTROSE,ISO 2 GM/50 ML PIGGYBACK IV ×2 (12:25→17:22)
[2024-06-04] MEDS: LACTATED RINGER'S SOLUTION 1,000 ML 50 ML IV ×2 (13:11→13:22)
--- NOTE | 2024-06-04 13:32 | P.ON_ITS ---
Brief Operative Note Date of procedure: 06/04/24 Pre-op diagnosis general: iup at 37wks, ho pylonephritis with sepsis during pr egnancy, pt non complaint with abx, previous c/s Post-op diagnosis: same as pre-op Procedure: NAME OF PROCEDURE: [ section ] PROCEDURE: Patient was taken back to the Operating Room where she was given a spinal anesthesia with Duramorph without difficulty. She was prepped and draped in the normal sterile fashion. A Pfannenstiel skin incision was then made 2 cm above the symphysis pubis and carried down to underlying rectus fascia using a Bovie. The fascia was incised in the midline and extended laterally using Greer scissors. Two Prabhu clamps were placed on the superior aspect of the fascia and dissected off the underlying rectus muscles. The same was performed on the inferior aspect as well. The muscles were then in the midline. Peritoneum was identified and entered bluntly. The peritoneum was then extended superiorly and inferiorly with good visualization of the bladder. The bladder blade was inserted. A low transverse incision was made on the patient's uterus and extended laterally digitally. The infant was then delivered atraumatically after the bladder blade was removed in the cephalic position. The cord was clamped and cut. Cord blood was obtained. The was handed off to awaiting team. The patient's placenta was spontaneously delivered. The uterus w as then exteriorized. The uterus was cleared of all clots and debris. The bladder blade was reinserted. The patient's uterine incision was closed using #0 Vicryl in a running lock fashion. Excellent hemostasis was assured. The uterus was then returned to the patient's abdomen. The patient's abdomen was copiously irrigated using warm saline. Peritoneal gutters were cleared of all clots and debris. Again excellent hemostasis was assured. The patient's peritoneum was closed using 3-0 Vicryl in a running fashion. The patient's fascia was closed using #0 Vicryl in a running fashion. The patient's skin was closed using 4-0 Vicryl subcuticularly. The patient tolerated the procedure well. Sponge, lap, and needle counts were correct x2. The patient was taken to the Recovery Room in stable condition. Anesthesia: spinal Surgeon: Johnathan Recinos Leather Shaver: Sandra Hernandez Estimated blood loss (mL): 575 Pathology: none sent Condition: stable Disposition: PACU Urinary Catheter Management Urinary Catheter Management Urethral: Cath placed during this visit: no
--- NOTE | 2024-06-04 13:33 | P.OBPRC_ITS ---
Procedure Pre-op/Post-op diagnoses: Pre-Op/Post-Op Diagnoses Operation Date: 06/04/24 12:15 <No data on this case meets the specified criteria> Procedure: Procedures Operation Date: 06/04/24 12:15 Actual Procedure Side Surgeon p Repeat Not Applicable Johnathan Recinos DO [employer] Developer: Sandra Hernandez Estimated blood loss (mL): 575 Disposition: PACU Anesthesia type: Spinal
[2024-06-04] MEDS: 0.9 % SODIUM CHLORIDE 1,000 ML 125 ML IV (14:30)
[2024-06-04] MEDS: KETOROLAC TROMETHAMINE 30 MG/ML VIAL IVP ×2 (14:45→20:37)
--- NOTE | 2024-06-04 16:52 | RESP.RT ---
Done per nursing
[2024-06-04] MEDS: OXYCODONE HCL/ACETAMINOPHEN 5MG/325MG 2 TAB PO (18:49)
[2024-06-04] MEDS: VENLAFAXINE HCL ER 37.5 MG CAPSULE PO (20:36)
[2024-06-04] MEDS: LAMOTRIGINE 100 MG TABLET 200 MG PO (20:37)
[2024-06-04] MEDS: LURASIDONE 60 MG 60 EACH PO (23:00)
[2024-06-05] VITALS (11 sets, daily range): BP systolic 97–130; BP diastolic 58–77; PULSE 61–76; TEMP 36.4–36.8; O2SAT 97–99
[2024-06-05] MEDS: CEFAZOLIN SODIUM/DEXTROSE,ISO 1 GM/50 ML PREMIX IV ×2 (01:31→12:00)
[2024-06-05] MEDS: ENOXAPARIN SODIUM 40 MG/0.4 ML SYRINGE SUBQ (01:31)
[2024-06-05] MEDS: OXYCODONE HCL/ACETAMINOPHEN 5MG/325MG 2 TAB PO ×4 (01:31→18:45)
[2024-06-05] MEDS: KETOROLAC TROMETHAMINE 30 MG/ML VIAL IVP ×4 (04:55→23:15)
[2024-06-05 05:14] LABS: Glucometer 75 mg/dL (74-106)
[2024-06-05 06:27] LABS: Basophils Percent Auto 0.2 % (0.2-2.0); Eosinophils Absolute Auto 0.1 10^3/uL (0.0-0.7); Eosinophils Percent Auto 0.6 % (0.9-7.0); Hematocrit 33.2 % (36.0-48.0); Hemoglobin 10.7 g/dL (12.0-16.0); Immature Granulocytes Abs Auto 0.02 10^3/uL (0.00-0.03); Immature Granulocytes Pct Auto 0.2 % (0.0-0.5); Lymphocytes Absolute Auto 2.7 10^3/uL (1.2-3.8); Lymphocytes Percent Auto 28.8 % (20.5-60.0); Mean Corpuscular HGB Conc 32.2 g/dL (29.9-35.2); Mean Corpuscular Hemoglobin 28.7 pg (26.7-34.0); Mean Platelet Volume 11.7 fL (9.5-13.5); Monocytes Absolute Auto 0.6 10^3/uL (0.3-0.8); Monocytes Percent Auto 6.2 % (1.7-12.0); Neutrophils Absolute Auto 5.9 10^3/uL (1.4-6.5); Platelet Count 244 10^3/uL (150-450); Red Blood Count 3.73 10^6/uL (4.20-5.40); Red Cell Distribution Width 13.3 % (11.0-15.0); White Blood Count 9.3 10^3/uL (4.0-11.0)
[2024-06-05] MEDS: DOCUSATE SODIUM 100 MG CAPSULE PO ×2 (09:07→20:57)
--- NOTE | 2024-06-05 10:32 | P.OBPN_ITS ---
OB - PN: Subj Subjective Patient comments: no complaints and pain well controlled [place] status: doing well Exam Constitutional Vital Signs, click to edit/add: Last Vital Signs Temp 98.3 F 06/05/24 04:51 Pulse 64 06/05/24 04:51 Resp 18 06/05/24 04:53 BP 114/73 06/05/24 04:51 Pulse Ox 99 06/05/24 04:53 O2 Del Method Room Air 06/05/24 04:53 Documenting provider has reviewed patient's vital signs: yes Common normals: no apparent distress Respiratory Common normals: normal respiratory effort and clear to auscultation bilaterally Cardio Common normals: regular rate and regular rhythm GI Common normals: Normal to inspection, nondistended, normoactive bowel sounds present Extremity Common normals: normal to inspection and no clubbing, cyanosis or edema Results Labs Labs: Short CBC 06/04/24 06/05/24 Range/Units 11:05 06:19 WBC 7.0 9.3 (4.0-11.0) 10^3/uL Hgb 11.7 L 10.7 L (12.0-16.0) g/dL Hct 35.4 L 33.2 L (36.0-48.0) % Plt Count 278 244 (150-450) 10^3/uL Urine 06/04/24 Range/Units 10:22 Urine Color Yellow (YELLOW) Urine Clarity Clear (CLEAR) Urine pH 6.0 (5.0-9.0) Ur Specific [place] 1.025 (1.005-1.025) Urine Protein Trace (NEG/TRACE) mg/dL Urine Glucose (UA) Negative (NEGATIVE) mg/dL Urinary Catheter Management Urinary Catheter Management Urethral: Cath placed during this visit: yes, but has since been removed by the nurse Insertion date: 06/04/24 Insertion time: 13:50 Removal date: 06/05/24 Removal time: 05:10 OB - PN: A/P Plan - day: 1 Plan: routine postop care Time Spent with Patient Time: Total time spent is greater than 50% in coordination of care (as documented) at patient's floor/unit and/or counseling patient: Total time spent with greater than 50% in coordination of care (as documented) at patient's floor/unit and/or counseling patient: less than 15 minutes
--- NOTE | 2024-06-05 17:37 | RESP.RT ---
done per nursing
[2024-06-05] MEDS: VENLAFAXINE HCL ER 37.5 MG CAPSULE PO (21:02)
[2024-06-05] MEDS: CEPHALEXIN 500 MG CAPSULE PO (21:03)
[2024-06-05] MEDS: LAMOTRIGINE 100 MG TABLET 200 MG PO (21:03)
[2024-06-05] MEDS: LURASIDONE 60 MG 60 EACH PO (21:04)
[2024-06-06] MEDS: ENOXAPARIN SODIUM 40 MG/0.4 ML SYRINGE SUBQ (01:44)
[2024-06-06] MEDS: OXYCODONE HCL/ACETAMINOPHEN 5MG/325MG 2 TAB PO (04:02)
[2024-06-06] MEDS: KETOROLAC TROMETHAMINE 30 MG/ML VIAL IVP (05:20)
[2024-06-06] MEDS: CEPHALEXIN 500 MG CAPSULE PO (05:21)
[2024-06-06 07:55] VITALS: BP 105/70
--- NOTE | 2024-06-06 08:08 | PM.OBPN ---
OB - PN: Subj Subjective Patient comments: no complaints and pain well controlled [place] status: doing well Exam Constitutional Vital Signs, click to edit/add: Last Vital Signs Temp 98.1 F 06/05/24 23:07 Pulse 76 06/05/24 23:07 Resp 18 06/05/24 23:07 BP 111/74 06/05/24 23:07 Pulse Ox 99 06/05/24 04:53 O2 Del Method Room Air 06/05/24 23:07 Documenting provider has reviewed patient's vital signs: yes Common normals: no apparent distress Respiratory Common normals: normal respiratory effort and clear to auscultation bilaterally Cardio Common normals: regular rate and regular rhythm GI Common normals: Normal to inspection, nondistended, normoactive bowel sounds present Extremity Common normals: no clubbing, cyanosis or edema Urinary Catheter Management Urinary Catheter Management Urethral: Cath placed during this visit: yes, but has since been removed by the nurse Insertion date: 06/04/24 Insertion time: 13:50 Removal date: 06/05/24 Removal time: 05:10 OB - PN: A/P Plan - day: 2 Plan: routine postop care, discharge home and other (fu 1wk) Time Spent with Patient Time: Total time spent is greater than 50% in coordination of care (as documented) at patient's floor/unit and/or counseling patient: Total time spent with greater than 50% in coordination of care (as documented) at patient's floor/unit and/or counseling patient: less than 15 minutes
[2024-06-06 08:50] VITALS: TEMP 36.7
[2024-06-06] MEDS: MEASLES,MUMPS,RUBELLA VACC/PF 0.5 ML VIAL SQ (09:55)
[2024-06-06] MEDS: DOCUSATE SODIUM 100 MG CAPSULE PO (09:55)
[2024-06-06] MEDS: OXYCODONE HCL/ACETAMINOPHEN 5MG/325MG 1 TAB PO (09:59)
== END 2024-06-06 10:10 | disposition home or self-care (01) | DRG 788 ==
PROVIDERS: Admitting Provider Obstetrics & Gynecology; PCP Nurse Practitioner Family; Visit Provider Obstetrics & Gynecology
PROC: 10D00Z1 Extraction of Products of Conception, Low, Open Approach (ICD-10-PCS; CPT 59514; principal; 2024-06-04 12:15)
DX: O24.429 Gestational diabetes mellitus in childbirth, unspecified control (principal); O34.211 Maternal care for low transverse scar from previous cesarean delivery; Z3A.37 37 weeks gestation of pregnancy; Z37.0 Single live birth; Z91.148 Patient's other noncompliance with medication regimen for other reason; Z87.440 Personal history of urinary (tract) infections; Z90.49 Acquired absence of other specified parts of digestive tract; Z86.19 Personal history of other infectious and parasitic diseases
CPT/HCPCS: 36415; 80307; 81001; 82948; 85025; 86850; 86900; 86901; 90707; 94667; 94668; J0690; J1650; J1885; J2274; J2371; J2405; J2590; J2765; J3490

== ENCOUNTER 2024-10-21 17:05 | Observation (INO) | payer BC, OTHER, SELFPAY ==
[2024-10-21] VITALS (33 sets, daily range): BP systolic 94–134; BP diastolic 55–82; PULSE 77–139; TEMP 36.6–39; O2SAT 96–100; BMI 46.4; BMI 42.7
--- NOTE | 2024-10-21 18:10 | ECG_ITS ---
The [facility] Test Date: 2024-10-21 Pat Name: PROSPER RUIZ Department: Room: - Gender: Female Rf Manager: : 1985 Requested By: 0923 Order Number: [id number] Reading MD: OSVALDO BLACKBURN M.D. Measurements Intervals [place] Rate: 126 P: 12 [place]: 116 QRS: 22 QRSD: 76 T: 25 QT: 286 QTc: 361 Interpretive Statements 1120 Sinus tachycardia 2210 Short [place] interval 9150 abnormal ECG Compared to ECG 12/29/2023 12:43:03 Short [place] interval now present Electronically Signed On 10-21-2024 18:28:39 EDT by OSVALDO BLACKBURN M.D.
--- NOTE | 2024-10-21 18:10 | XR_ITS ---
The [place] [id number] Patient Name: PROSPER RUIZ MRN: [id number] date: 1985 Sex: F Assigned Patient Location: ER Current Patient Location: ER Accession/Order Number: [id number] Exam Date: 10/21/2024 19:38 Report Date: 10/21/2024 19:41 At the request of: GUERRERO DUQUE Procedure: XR chest 1V XR chest 1V 10/21/2024 7:33 PM SIGNS AND SYMPTOMS: ^FEVER PROTOCOL: Frontal radiograph of the chest COMPARISON: 11/06/2019 FINDINGS: The trachea is midline. The heart and mediastinal structures are within normal limits. The lung parenchyma is clear. The bony thorax is intact. XR/XR chest 1V IMPRESSION: No acute cardiopulmonary pathology. Impression dictated by: Ravi Sierra M.D. 10/21/2024 7:41 PM Dictation Location: [place] [address] Electronically authenticated by: [id number] Y Date: 10/21/2024 19:41
--- NOTE | 2024-10-21 18:20 | CT_ITS ---
The [address] [address] Patient Name: PROSPER RUIZ MRN: [id number] date: 1985 Sex: F Assigned Patient Location: ER Current Patient Location: Accession/Order Number: [id number] Exam Date: 10/21/2024 19:41 Report Date: 10/21/2024 19:43 At the request of: GUERRERO DUQUE Procedure: CT head/brain wo con CT head/brain wo con 10/21/2024 7:33 PM SIGNS AND SYMPTOMS: ^headache w fever TECHNIQUE:Multi-detector CT axial slices of the brain were obtained without IV contrast. CT was performed with one or more of the following dose reduction techniques: Automated exposure control, adjustment of the mA and/or kV according to patient size, or use of iterative reconstruction technique. COMPARISON: None. FINDINGS: There is no shift of the midline structures, acute intracranial bleeding, mass effects, or evidence of acute ischemia. The ventricular system is normal in size. The brainstem and the cerebellum are unremarkable. The visualized intraorbital contents, the visualized paranasal sinuses, and the infratemporal soft tissues show no acute abnormality. The osseous structures in the skull base and the calvarium show no abnormality. CT/CT head/brain wo con IMPRESSION: Normal noncontrasted CT brain. Impression dictated by: Ravi Sierra M.D. 10/21/2024 7:43 PM Dictation Location: [place] [address] Electronically authenticated by: [id number] Y Date: 10/21/2024 19:43
[2024-10-21] MEDS: ACETAMINOPHEN 500 MG TABLET 1000 MG PO (18:30)
[2024-10-21 18:33] LABS: Bilirubin Urine NEGATIVE (NEGATIVE); Blood Urine SMALL (NEGATIVE); Clarity Urine CLEAR (CLEAR); Color Urine LT. YELLOW (YELLOW); Glucose Urine UA NEGATIVE (NEGATIVE); Ketones Urine NEGATIVE (NEGATIVE); Leukocyte Esterase Urine TRACE (NEGATIVE); Nitrite Urine NEGATIVE (NEGATIVE); Protein Urine 30 mg/dL (NEG/TRACE); Specific Gravity Urine 1.015 (1.005-1.025)
[2024-10-21 18:36] LABS: HCG Qualitative Urine* NEGATIVE (NEGATIVE); Internal Control Within Normal Limits
--- NOTE | 2024-10-21 18:47 | ED.FEVER1 ---
HPI - Fever General Chief Complaint: Fever Stated Complaint: HEADACHE, FEVER Time Seen by Provider: 10/21/24 17:35 Source: patient Limitations: no limitations History of Present Illness HPI Narrative: 39-year-old female presents with a chief complaint of headache fevers chills. She was out hiking 2 days ago. She states she has a tendency to have migraine headaches took her Nurtec did not help. Patient symptoms worsened over the last course of 2 days and increased fever and feeling ill. Upon arrival to emergency room she was tachycardic, well, and nauseous. She states she is also prone to urinary tract infections. Denies a known history of . She is not currently taking any antibiotics. Related Data Home Medications ?Medication ?Instructions ?Recorded ?Confirmed lamotrigine 200 mg tablet 200 mg PO DAILY 03/07/24 10/21/24 venlafaxine 37.5 mg 37.5 mg PO DAILY 03/07/24 10/21/24 capsule,extended release 24 hr Lamictal DAILY 10/21/24 lurasidone 60 mg tablet (Latuda) 60 mg PO DAILY 10/21/24 10/21/24 Previous Rx's ?Medication ?Instructions ?Recorded ibuprofen 800 mg tablet 800 mg PO Q8H PRN pain 14 days #40 06/06/24 tabs Allergies Allergy/AdvReac Type Severity Reaction Status Date / Time sulfamethoxazole (From Allergy Hives Verified 10/21/24 17:16 Bactrim) trimethoprim (From Bactrim) Allergy Hives Verified 10/21/24 17:16 Review of Systems ROS Status of ROS 10 or more systems reviewed and unremarkable except as noted in history and below [facility] Medical History (Updated 10/21/24 @ 21:19 by Jose Modi MD) section wound complication ?O90.9 - Complication of the puerperium, unspecified (ICD-10) Bipolar affect, depressed ?F31.30 - Bipolar disorder, current episode depressed, mild or moderate severity, unspecified (ICD-10) Hyperemesis affecting , antepartum ?O21.0 - Mild hyperemesis gravidarum (ICD-10) Surgical History History of appendectomy ?Z90.49 - Acquired absence of other specified parts of digestive tract (ICD-10) History of cholecystectomy ?Z90.49 - Acquired absence of other specified parts of digestive tract (ICD-10) deliv NOS-unsp Social History Little interest or pleasure in doing things: not at all Feeling down, depressed, or hopeless: not at all Exam Narrative Exam Narrative: All Systems are negative except as noted/marked.All systems reviewed and otherwise negative Nurses note and vital signs reviewed and patient is not hypoxic. General: The patient appears ill with headache, Patient is resting comfortably on cart. Skin: Warm, dry, no pallor noted. There is no rash noted. Head: Normocephalic, atraumatic neck supple no nuchal rigidity Eye: Normal conjunctiva, no drainage, EOMI. PERRL Ears, Nose, Mouth, and Throat: oral mucosa is moist. Nares patent. Mouth without vesicles. Ear canals patent. Tm's without Erythema Cardiovascular: Regular Rate and Rhythm Respiratory: Patient is in no distress, no accessory muscle use, lungs are clear to auscultation, no wheezing, rales or rhonchi Back: non-tender, no CVA tenderness bilaterally to percussion. GI: Normal bowel sounds, no tenderness to palpation, no masses appreciated. No rebound, guarding, or rigidity noted. Musculoskeletal: The patient has no evidence of calf tenderness, no pitting edema, symmetrical pulses noted bilaterally Neurological: A&O x4, normal speech Psychiatric: Cooperative Constitutional Vital Signs, click to edit/add: Last Vital Signs Temp 99.6 F 10/21/24 20:56 Pulse 112 H 10/21/24 20:50 Resp 20 10/21/24 20:50 BP 110/67 10/21/24 18:02 Pulse Ox 98 10/21/24 18:02 O2 Del Method Room Air 10/21/24 17:20 Course Vital Signs Vital signs: Vital Signs Temperature 102.2 F H 10/21/24 17:20 Pulse Rate 139 H 10/21/24 17:20 Respiratory Rate 20 10/21/24 17:20 Blood Pressure 134/82 10/21/24 17:20 Pulse Oximetry 100 10/21/24 17:20 Oxygen Delivery Method Room Air 10/21/24 17:20 Temperature 99.6 F 10/21/24 20:56 Pulse Rate 112 H 10/21/24 20:50 Respiratory Rate 20 10/21/24 20:50 Blood Pressure 110/67 10/21/24 18:02 Pulse Oximetry 98 10/21/24 18:02 Oxygen Delivery Method Room Air 10/21/24 17:20 MDM - Fever MDM Narrative Medical decision making narrative: 39-year-old female presents with a chief complaint of headache fevers chills. She was out hiking 2 days ago. She states she has a tendency to have migraine headaches took her Nurtec did not help. Patient symptoms worsened over the last course of 2 days and increased fever and feeling ill. Upon arrival to emergency room she was tachycardic, well, and nauseous. She states she is also prone to urinary tract infections. Denies a known history of . She is not currently taking any antibiotics. On arrival to the emergency room patient was febrile and tachycardic. Sepsis workup was performed. She is shown to have a white blood cell count of 15,000 with a urinary tract infection. Mildly elevated alk phos of 146, AST of 444 ALT 90, mono, influenza, COVID screening are all negative. Patient was medicated here with IV fluids, Zofran, Toradol, morphine and Rocephin. Vital signs had improved temperature is at this time 100.6 down from 102 pulse is also improved respirations of also improved. Patient will be admitted to the hospital for IV hydration and IV fluids diagnosis of headache, UTI Hospitalist with regards to this patient's care she agrees patient can be admitted as a observation telemetry. Patient also aware and agrees with plan of care I, Dr Modi, have reviewed the above progress note and course of action in the ER; agree with the above. I have personally seen and evaluated this patient, gone over history and physical, and discussed disposition and treatment plan with the patient. Patient has had aggressive septic orders and initiation and testing done including IV antibiotics and IV fluids. Critical care time assessed with combination of time at bedside by and Liza Meraz PA-C Critical care time 35 minutes exclusive from separate billable procedures that were performed. The following was considered in the determination of critical care but not limited to the level of medical decision making, intensive cardiac and/or respiratory monitoring, frequent vital sign monitoring, evaluation of laboratory studies, evaluation of radiographic studies, oxygen monitoring, and constant monitoring and speaking to family at bedside Differential Diagnosis Differential diagnosis: Likely pyelonephritis, viral infection, sepsis and influenza Medical Records Attestation: I reviewed the patient's medical records. Lab Data Attestation: I reviewed the patient's lab results. Labs: Lab Results 10/21/24 10/21/24 10/21/24 Range/Units 17:15 18:39 18:52 WBC 15.1 H (4.0-11.0) 10^3/uL RBC 3.82 L (4.20-5.40) 10^6/uL Hgb 11.7 L (12.0-16.0) g/dL Hct 35.3 L (36.0-48.0) % MCV 92.4 (81.0-99.0) fL MCH 30.6 (26.7-34.0) pg MCHC 33.1 (29.9-35.2) g/dL RDW 13.6 (11.0-15.0) % Plt Count 300 (150-450) 10^3/uL MPV 10.1 (9.5-13.5) fL Neut % (Auto) 75.5 H (43.0-75.0) % Lymph % (Auto) 14.1 L (20.5-60.0) % [place] % (Auto) 9.4 (1.7-12.0) % Eos % (Auto) 0.1 L (0.9-7.0) % Baso % (Auto) 0.2 (0.2-2.0) % Neut # (Auto) 11.4 H (1.4-6.5) 10^3/uL Lymph # (Auto) 2.1 (1.2-3.8) 10^3/uL [place] # (Auto) 1.4 H (0.3-0.8) 10^3/uL Eos # (Auto) 0.0 (0.0-0.7) 10^3/uL Baso # (Auto) 0.0 (0.0-0.1) 10^3/uL Abs Immat Gran (auto) 0.10 H (0.00-0.03) 10^3/uL Imm/Tot Granulo (auto) 0.7 H (0.0-0.5) % PT 10.5 (9.0-11.6) sec INR 0.99 VBG pH 7.385 (7.330-7.430) VBG pCO2 40.9 (40.0-52.0) mmHg Sodium 139 (136-145) mmol/L Potassium 4.3 (3.5-5.1) mmol/L Chloride 101 (98-107) mmol/L Carbon Dioxide 25.5 (21.0-32.0) mmol/L Anion Gap 16.8 BUN 10.0 (7.0-18.0) mg/dL Creatinine 0.86 (0.55-1.02) mg/dL Est GFR ( Amer) >60 (>=60 mL/min/1.73m^2) Est GFR (Non-Af Amer) >60 (>=60 mL/min/1.73m^2) BUN/Creatinine Ratio 11.6 Glucose 120 H (74-106) mg/dL Lactate 1.2 (0.4-2.0) mmol/L Calcium 8.7 (8.5-10.1) mg/dL Magnesium 2.0 (1.8-2.4) mg/dL Total Bilirubin 0.3 (0.2-1.0) mg/dL AST 44 H (15-37) U/L ALT 90 H (14-59) U/L Alkaline Phosphatase 146 H (46-116) U/L Total Creatine Kinase 38 (26-192) U/L Troponin I High Sens <4.0 L (4.0-51.3) pg/mL Total Protein 8.3 H (6.4-8.2) g/dL Albumin 3.4 (3.4-5.0) g/dL Globulin 4.9 g/dL Albumin/Globulin Ratio 0.7 Urine Color Lt. yellow (YELLOW) Urine Clarity Clear (CLEAR) Urine pH 7.0 (5.0-9.0) Ur Specific [place] 1.015 (1.005-1.025) Urine Protein 30 A (NEG/TRACE) mg/dL Urine Glucose (UA) Negative (NEGATIVE) mg/dL Urine Ketones Negative (NEGATIVE) mg/dL Urine Occult Blood Small A (NEGATIVE) Urine Nitrite Negative (NEGATIVE) Urine Bilirubin Negative (NEGATIVE) Urine Urobilinogen 1.0 (0.2-1.0) EU/dL Ur Leukocyte Esterase Trace A (NEGATIVE) Urine RBC 2-5 A (0-2) #/HPF Urine WBC 10-20 A (NONE SEEN) #/HPF Ur Squamous Epith Cells Few A (NONE/RARE) #/LPF Urine Crystals None seen (None Seen) #/HPF Urine Bacteria Moderate A (NONE SEEN) #/HPF Urine Casts None seen (NONE SEEN) #/LPF Urine Mucus None seen (NONE SEEN) Ur Culture Indicated? Yes-[facility] [place] Urine HCG, Qual Negative (NEGATIVE) Urine Opiates Screen Negative (NEGATIVE) Ur Buprenorphine Scrn Negative (NEGATIVE) Ur Oxycodone Screen Negative (NEGATIVE) Urine Methadone Screen Negative (NEGATIVE) Ur Barbiturates Screen Negative (NEGATIVE) U Tricyclic Antidepress Negative (NEGATIVE) Ur Phencyclidine Scrn Negative (NEGATIVE) Ur Amphetamines Screen Negative (NEGATIVE) U Methamphetamines Scrn Negative (NEGATIVE) U Benzodiazepines Scrn Negative (NEGATIVE) Urine Cocaine Screen Negative (NEGATIVE) U Cannabinoids Screen Negative (NEGATIVE) Monoscreen Negative (NEGATIVE) Influenza Type A Ag Negative Influenza Type B Ag Negative SARS-CoV-2 Ag (CV2AG) Negative (NEGATIVE) Imaging Data Chest x-ray: Radiologist's impression: ITS Impressions Chest X-Ray 10/21/24 18:10 IMPRESSION: No acute cardiopulmonary pathology. Impression dictated by: Ravi Sierra M.D. 10/21/2024 7:41 PM Dictation Location: [email or web address] Electronically authenticated by: [id number] Y Date: 10/21/2024 19:[address] 10/21/24 18:20 IMPRESSION: Normal noncontrasted CT brain. Impression dictated by: Ravi Sierra M.D. 10/21/2024 7:43 PM Dictation Location: [email or web address] Electronically authenticated by: [id number] Y Date: 10/21/2024 19:43 Abdomen/Pelvis CT 10/21/24 19:35 IMPRESSION: No bowel obstruction or obstructive uropathy. There is left-sided perinephric fat stranding which is nonspecific. Pyelonephritis is not excluded however. The liver is mildly hypoattenuating in respect to the spleen suggesting hepatic steatosis. Impression dictated by: Ravi Sierra M.D. 10/21/2024 8:42 PM Dictation Location: [email or web address] Electronically authenticated by: [id number] Y Date: 10/21/2024 20:42 ECG Data Interpretation: 1750 EKG sinus tachycardia with a rate of 126 bpm MD interval 160 ms QRS duration [address] elevation or depression Discharge Plan Discharge Chief Complaint: Fever Clinical Impression: UTI (urinary tract infection), Fever, Acute dehydration, Elevated LFTs Patient Disposition: Admitted as Observation Time of Disposition Decision: 20:36 Condition: Good
[2024-10-21] MEDS: 0.9 % SODIUM CHLORIDE 1,000 ML 1000 ML IV ×2 (19:00→19:40)
[2024-10-21 19:02] LABS: Bacteria Urine MODERATE #/HPF (NONE SEEN); Crystals Seen? None Seen #/HPF (None Seen); Mucus Urine NONE SEEN (NONE SEEN); Squamous Epithelial Cell Urine FEW #/LPF (NONE/RARE)
[2024-10-21 19:03] LABS: Cast Seen? NONE SEEN #/LPF (NONE SEEN); Urine Culture Indicated YES-FRMC
[2024-10-21 19:11] LABS: Basophils Percent Auto 0.2 % (0.2-2.0); Eosinophils Percent Auto 0.1 % (0.9-7.0); Hematocrit 35.3 % (36.0-48.0); Hemoglobin 11.7 g/dL (12.0-16.0); Immature Granulocytes Pct Auto 0.7 % (0.0-0.5); Lymphocytes Absolute Auto 2.1 10^3/uL (1.2-3.8); Lymphocytes Percent Auto 14.1 % (20.5-60.0); Mean Corpuscular HGB Conc 33.1 g/dL (29.9-35.2); Mean Corpuscular Hemoglobin 30.6 pg (26.7-34.0); Mean Corpuscular Volume 92.4 fL (81.0-99.0); Mean Platelet Volume 10.1 fL (9.5-13.5); Monocytes Absolute Auto 1.4 10^3/uL (0.3-0.8); Monocytes Percent Auto 9.4 % (1.7-12.0); Neutrophils Absolute Auto 11.4 10^3/uL (1.4-6.5); Neutrophils Percent Auto 75.5 % (43.0-75.0); Platelet Count 300 10^3/uL (150-450); Red Blood Count 3.82 10^6/uL (4.20-5.40); Red Cell Distribution Width 13.6 % (11.0-15.0); White Blood Count 15.1 10^3/uL (4.0-11.0)
[2024-10-21 19:12] LABS: PCO2 VBG 40.9 mmHg (40.0-52.0); pH VBG 7.385 (7.330-7.430)
[2024-10-21 19:26] LABS: INR 0.99; Prothrombin Time 10.5 sec (9.0-11.6)
[2024-10-21 19:28] LABS: Influenza Virus A Antigen Negative; Influenza Virus B Antigen Negative; Internal Control Within Normal Limits; SARS-CoV-2 Ag NEGATIVE (NEGATIVE)
[2024-10-21 19:30] LABS: Alanine Aminotransferase 90 U/L (14-59); Albumin Globulin Ratio 0.7; Albumin Level 3.4 g/dL (3.4-5.0); Alkaline Phosphatase 146 U/L (46-116); Anion Gap 16.8; Aspartate Amino Transferase 44 U/L (15-37); BUN Creatinine Ratio 11.6; Bilirubin Total 0.3 mg/dL (0.2-1.0); Calcium 8.7 mg/dL (8.5-10.1); Carbon Dioxide 25.5 mmol/L (21.0-32.0); Chloride 101 mmol/L (98-107); Estimated GFR (African America >60 (>=60 mL/min/1.73m^2); Estimated GFR (Non-African Ame >60 (>=60 mL/min/1.73m^2); Globulin 4.9 g/dL; Glucose 120 mg/dL (74-106); Potassium 4.3 mmol/L (3.5-5.1); Sodium 139 mmol/L (136-145); Total Protein 8.3 g/dL (6.4-8.2)
[2024-10-21 19:32] LABS: Lactate/Lactic Acid 1.2 mmol/L (0.4-2.0)
[2024-10-21 19:33] LABS: Troponin I High Sensitivity <4.0 pg/mL (4.0-51.3)
[2024-10-21 19:34] LABS: Creatine Kinase 38 U/L (26-192)
--- NOTE | 2024-10-21 19:35 | CT_ITS ---
[place] [id number] Patient Name: PROSPER RUIZ MRN: [id number] date: 1985 Sex: F Assigned Patient Location: ER Current Patient Location: .[facility] Accession/Order Number: [id number] Exam Date: 10/21/2024 20:33 Report Date: 10/21/2024 20:42 At the request of: GUERRERO DUQUE Procedure: CT abdomen pelvis wo con CT abdomen pelvis wo con 10/21/2024 8:09 PM SIGNS AND SYMPTOMS: ^fever elevated liver enzymes TECHNIQUE: Multidetector ct axial images of the abdomen and pelvis were obtained without IV contrast. Multiplanar reformats were performed and reviewed to further define anatomy and possible pathology. CT was performed with one or more of the following dose reduction techniques: Automated exposure control, adjustment of the mA and/or kV according to patient size, or use of iterative reconstruction technique. COMPARISON: 04/27/2025 . FINDINGS: Lower Chest: Within normal limits. ABDOMEN: Liver: The liver is mildly hypoattenuating suggesting hepatic steatosis. Bile Ducts: Normal caliber. Gallbladder: Previously removed Pancreas: Within normal limits. Spleen: Within normal limits. Adrenals: Within normal limits. Kidneys: There is left-sided perinephric fat stranding which is nonspecific. Pyelonephritis is not excluded however. Pelvis: Reproductive Organs: No pelvic masses. Ureters: Within normal limits. Bladder: Within normal limits. Bowel: Normal caliber. Mesenteric Lymph Nodes: No enlarged mesenteric lymph nodes. Peritoneum: No ascites or free air, no fluid collection. Vessels: within normal limits Retroperitoneum: Within normal limits. Abdominal Wall: Within normal limits. Bones: Within normal limits. CT/CT abdomen pelvis wo con IMPRESSION: No bowel obstruction or obstructive uropathy. There is left-sided perinephric fat stranding which is nonspecific. Pyelonephritis is not excluded however. The liver is mildly hypoattenuating in respect to the spleen suggesting hepatic steatosis. Impression dictated by: Ravi Sierra M.D. 10/21/2024 8:42 PM Dictation Location: [place] [id number] Electronically authenticated by: [id number] Y Date: 10/21/2024 20:42
[2024-10-21] MEDS: KETOROLAC TROMETHAMINE 30 MG/ML VIAL IVP (19:38)
[2024-10-21] MEDS: ONDANSETRON PF 4 MG/2 ML VIAL IV (19:39)
[2024-10-21 20:01] LABS: Internal Control Within Normal Limits; Mono Screen NEGATIVE (NEGATIVE)
[2024-10-21] MEDS: CEFTRIAXONE 1,000 MG in 0.9 % SODIUM CHLORIDE 50 ML 100 MG IV (20:46)
[2024-10-21] MEDS: MORPHINE SULFATE 2 MG/ML SYRINGE IV (20:48)
[2024-10-21 20:56] LABS: Amphetamine Screen Urine NEGATIVE (NEGATIVE); Barbiturates Screen Urine NEGATIVE (NEGATIVE); Benzodiazepines Screen Urine NEGATIVE (NEGATIVE); Buprenorphine Screen Urine NEGATIVE (NEGATIVE); Cannabinoid Screen Urine NEGATIVE (NEGATIVE); Cocaine Screen Urine NEGATIVE (NEGATIVE); Methadone Screen Urine NEGATIVE (NEGATIVE); Methamphetamines Screen Urine NEGATIVE (NEGATIVE); Opiate Screen Urine NEGATIVE (NEGATIVE); Oxycodone Screen Urine NEGATIVE (NEGATIVE); Phencyclidine Screen Urine NEGATIVE (NEGATIVE); Tricyclic Antidepressant Urine NEGATIVE (NEGATIVE)
--- OUTSIDE RECORDS SUMMARY | 2024-10-21 22:30 | XMS_ITS | CCD ---
Author Organization [facility] Team Providers Care Voice Instructor Name Role Phone Kimberlyn Xie Primary Care [...] Kaylah Han Unavailable Sanaz Lockwood Unavailable Unavailable Primary Care Provider UnavailNATO Campbell Admitting Unavailable NATO LLOYD Attending Unavailable REF [...] Johnathan Attending Unavailable Jorje, Johnathan Admitting Unavailable No Pcp, No Pcp Primary Care Provider Unavailabl e JORJE, JOHNATHAN Attending Unavailable JORJE, JOHNATHAN Attending Unavailable JORJE, JOHNATHAN Attending Unavailable LIZA DUQUE Attending Unavailable LIZA DUQUE Attending Unavailable LIZA DUQUE Attending Unavailable JORJE, JOHNATHAN Attending Unavailable JORJE, JOHNATHAN Attending Unavailable JORJE, JOHNATHAN Attending Unavailable LIZA DUQUE Attending Unavailable LIZA DUQUE Attending Unavailable JOHNATHAN RECINOS Attending Unavailable LIZA DUQUE Attending Unavailable Unavailable Unavailable Unavailable Allergies Allergy Classification Reported Allergen(s) Allergy Type Date of Onset Reaction(s) Facility (3 sources) egg extract; Translations: [egg] Drug Allergy 08-18-19 24 Vomiting [facility] (20 sources) Sulfamethoxazole; Translations: [SULFAMETHOXAZOLE] Drug Allergy 08-18-19 24 [facility] (20 sources) Trimethoprim; Translations: [TRIMETHOPRIM] Drug Allergy 08-18-19 24 [facility] (3 sources) Fish Containing Products; Translations: [Fish Containing Products] Propensity to adverse reactions 08-18-19 Difficulty Breathing [facility] (1 source) Sulfamethoxazole / Trimethoprim Drug Allergy 02-04-20 13 [facility] Repository (20 sources) Sulfamethoxazole / Trimethoprim Drug Allergy 11-24-19 24 hiv, [facility] Desi [facility]its Other (20 sources) Egg-Derived Products Drug Allergy [...] (six) hours as needed for pain. Active [id number] 200 actuat albuterol 0.09 mg/actuat metered dose [...] Glucose Monitoring Suppl (D-Care Glucometer) w/Device kit (20 sources) Start: 03-25-2024 End: 03-25-2025 Blood Glucose [...] hydrochloride 150 mg extended release oral tablet (5 sources) Aminoketone Start: 06-29-2019 take 75 mg [...] oral tablet (1 source) alpha-Adrenergic Agonist, Uncompetitive X-enxmzx-M-aspartate Receptor Antagonist, Sigma-1 Agonist Start: 04-27-2023 take 4 tablets by mouth every twenty-four hours as needed Capmist DM 60-15-400 MG as needed Orally every 4-6 hours as needed, max 4 tablets in 24 hours for 5 days Mar, Active [id number] 0.3 ml EPINEPHrine 1 mg/ml auto-injector (2 [...] insulin isophane, human 100 unt/ml injectable suspension (14 sources) Start: 05-22-2024 inject 10 [IU] by [...] insulin, regular, human 100 unt/ml injectable solution (14 sources) Insulin Start: 05-22-2024 End: 06-21-2024 inject 0.05 mL by subcutaneous injection in the morning insulin regular (HumuLIN R,NovoLIN R) 100 UNIT/ML injection Indications: Gestational diabetes mellitus (GDM) in third trimester, gestational diabetes method of control unspecified Inject 0.05 mL (5 Units) under the skin in the morning and 0.05 mL (5 Units) in the evening. Inject with meals. 10 mL 5 05/22/2024 Active isopropyl alcohol 0.7 ml/ml medicated pad (20 sources) Start: 03-25-2024 Alcohol Swabs (Alcohol Prep [...] total) by mouth in the morning. Active lamoTRIgine (Mcelroy ICtal) 25 mg tablet Take 30 mg by mouth 2 (two) times a day. Active LaMICtal Active loratadine 10 mg oral tablet (1 source) Start: 08-18-2023 take 10 mg by mouth once daily Loratadine Active 10 MG PO Daily August 18, 2023 12:00am lurasidone hydrochloride 40 mg oral tablet (20 sources) Atypical Antipsychotic Start: 08-18-2023 take 1 tablet by mouth at mealtime lurasidone (Latuda) 40 MG tablet Take 40 mg by mouth in the morning. Take with meals. 10/18/2023 Active lurasidone (LATU DA) 40 mg tablet Take [...] 18, 2023 12:00am take 1 capsule by [facility] every twenty-four hours in the morning venlafaxine XR (EFFEXOR XR) 37.5 mg 24 hr capsule Take 1 capsule (37.5 mg total) by mouth in the morning. Active ziprasidone 80 mg oral capsule (3 sources) Atypical Antipsychotic ziprasido ne (GEODON) 80 [...] Classification Problem Date Documented Da te Episodic/Chronic Allergic reactions (2 sources) Food anaphylaxis; Translations: [Anaphylactic reaction due to unspecified food, initial encounter] 04-12-2023 Episodic Chronic obstructive pulmonary disease and bronchiectasis (1 source) Bronchitis, not specified as acute or chronic Episodic Diabetes mellitus without complication (2 sources) Abnormal glucose tolerance test; Translations: [Other abnormal glucose] 03-21-2024 Episodic Genitourinary symptoms and ill-defined conditions [...] 03-09-2022 Episodic Other aftercare (1 source) Other detention (current) drug therapy; Translations: [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 DRUG THERAPY] Onset: 04-29-2022 Episodic Other aftercare (2 sources) Postoperative visit; Translations: [Encounter for other specified surgical aftercare] 06-11-2024 Episodic Other complications of (1 source) Obesity complicating , second trimester; Translations: [Obesity complicating , second trimester] Onset: 02-15-2024 Chronic Other complications of (1 source) Obesity complicating , unspecified trimester; Translations: [Obesity complicating , unspecified trimester] Onset: 02-08-2024 Chronic Other complications of (4 sources) Maternal obesity complicating , childbirth and the puerperium, antepartum; Translations: [Obesity complicating , second trimester] Onset: 02-15-2024 02-15-2024 Chronic Other complications of (1 source) Supervision [...] normal , unspecified, second trimester] Onset: 04-03-2024 Resolved: 06-04-2024 02-21-2024 Episodic Other screening for suspected conditions [...] TRACT] Onset: 04-29-2022 Episodic Residual codes; unclassified (2 sources) Gestation [...] of ] 03-21-2024 Episodic Residual codes; unclassified (2 sources) Gestation period, 18 weeks; Translations: [18 weeks gestation of ] 01-24-2024 Episodic Residual codes; unclassified (2 sources) Gestation [...] 04-29-2022 Unclassified (1 source) transport Onset: 02-08-2024 Past or Other Problems Problem Classification Problem Date Documented Date Episodic/Chronic Abdominal pain (20 sources) Unspecified abdominal pain; Translations: [Flank pain] Onset: 04-27-2022 Episodic Diabetes or abnormal glucose tolerance complicating ; childbirth; or the puerperium (20 sources) Gestational diabetes mellitus; Translations: [Gestational diabetes mellitus in , unspecified control] Onset: 03-21-2024 Resolved: 06-04-2024 03-21-2024 Episodic Hypertension complicating ; childbirth and the puerperium (19 sources) Elevated blood pressure; Translations: [Unspecified maternal hypertension, third trimester] Onset: 05-13-2024 Resolved: 06-04-2024 05-13-2024 Chronic Other complications of (3 sources) Pyelonephritis [...] risk pregnancies, unspecified trimester] 02-15-2024 Episodic Other skin disorders (2 sources) Eruption; Translations: [Rash and other nonspecific skin eruption] 01-03-2024 Episodic Residual codes; unclassified (20 sources) Gestation period, 28 weeks; Translations: [28 weeks gestation of ] Onset: 04-03-2024 Resolved: 06-04-2024 04-03-2024 Episodic Residual codes; unclassified (19 sources) Gestation period, 33 weeks; Translations: [33 weeks gestation of ] Onset: 05-13-2024 Resolved: 06-04-2024 05-13-2024 Episodic Residual codes; unclassified (3 sources) Gestation period, 21 weeks; Translations: [21 weeks gestation of ] 02-15-2024 Episodic Residual codes; unclassified (2 sources) Nicotine-filled electronic cigarette user; Translations: [Tobacco use] Onset: 02-15-2024 02-15-2024 Episodic Unclassified (1 source) Suspected COVID-19 virus infection Z20.822 Urinary tract infections (20 sources) Acute cystitis; Translations: [Acute cystitis with hematuria] Onset: 02-08-2024 03-06-2024 Episodic Results Test Name Value Interpretation Reference Range Facility ALL CBC WITH AUTO DIFFon BASOPHILS ABSOLUTE AUTO 0 [facility] Basophils/100 WBC (Bld) 0.2 % 0.2 - 2.0 % [facility] Eosinophils/100 WBC (Bld) 0.6 % Low 0.9 - 7.0 % [facility] Erythrocyte distribution width (RBC) [Ratio] 13.3 % 11.0 - 15.0 % [facility] Hematocrit (Bld) [Volume fraction] 33.2 % Low 36.0 - 48.0 % [facility] Hemoglobin (Bld) [Mass/Vol] 10.7 g/dL Low 12.0 - 16.0 g/dL [facility] IMMATURE GRANULOCYTES ABS AUTO 0.02 [facility] Immature granulocytes/100 WBC (Bld) 0.2 % 0.0 - 0.5 % [facility] Interpretation and review of laboratory results Abnormal [facility] LYMPHOCYTES ABSOLUTE AUTO 2.7 [facility] Lymphocytes/100 WBC (Bld) 28.8 % 20.5 - 60.0 % [facility] MCH (RBC) [Entitic mass] 28.7 pg 26.7 - 34.0 pg [facility] MCHC (RBC) [Mass/Vol] 32.2 g/dL 29.9 - 35.2 g/dL [facility] MCV (RBC) [Entitic vol] 89 fL 81.0 - 99.0 fL [facility] MONOCYTES ABSOLUTE AUTO 0.6 [facility] Monocytes/100 WBC (Bld) 6.2 % 1.7 - 12.0 % [facility] NEUTROPHILS ABSOLUTE AUTO 5.9 [facility] Neutrophils/100 WBC (Bld) 64 % 43.0 - 75.0 % [facility] Platelet mean volume (Bld) [Entitic vol] 11.7 fL 9.5 - 13.5 fL [facility] TBH EO # 0.1 [facility] TBH PLT 244 [facility] RBC 3.73 Low [facility] TBH WBC 9.3 [facility] CL[facility] e ALL CBC WITH AUTO DIFFon BASOPHILS ABSOLUTE AUTO 0 [facility] Basophils/100 WBC (Bld) 0.1 % Low 0.2 - 2.0 % [facility] Eosinophils/100 WBC (Bld) 0.6 % Low 0.9 - 7.0 % [facility] Erythrocyte distribution width (RBC) [Ratio] 13.2 % 11.0 - 15.0 % [facility] Hematocrit (Bld) [Volume fraction] 35.4 % Low 36.0 - 48.0 % [facility] Hemoglobin (Bld) [Mass/Vol] 11.7 g/dL Low 12.0 - 16.0 g/dL [facility] IMMATURE GRANULOCYTES ABS AUTO 0.03 [facility] Immature granulocytes/100 WBC (Bld) 0.4 % 0.0 - 0.5 % [facility] Interpretation and review of laboratory results Abnormal [facility] LYMPHOCYTES ABSOLUTE AUTO 1.7 [facility] Lymphocytes/100 WBC (Bld) 24 % 20.5 - 60.0 % [facility] MCH (RBC) [Entitic mass] 28.7 pg 26.7 - 34.0 pg [facility] MCHC (RBC) [Mass/Vol] 33.1 g/dL 29.9 - 35.2 g/dL [facility] MCV (RBC) [Entitic vol] 87 fL 81.0 - 99.0 fL [facility] MONOCYTES ABSOLUTE AUTO 0.3 [facility] Monocytes/100 WBC (Bld) 4.4 % 1.7 - 12.0 % [facility] NEUTROPHILS ABSOLUTE AUTO 4.9 [facility] Neutrophils/100 WBC (Bld) 70.5 % 43.0 - 75.0 % [facility] Platelet mean volume (Bld) [Entitic vol] 12 fL 9.5 - 13.5 fL [facility] TB[facility] EO # 0 [facility] PLT 278 [facility] RBC 4.07 Low [facility] WBC 7 [facility] US OB BPP W NON-STRESS on 05-31-2024 [place] [address] Ultrasound Report Signed Patient: PROSPER RUIZ MR#: [id number] : 1985 Acct:[id number] Age/Sex: 39 / F ADM Date: 05/31/24 Loc: [facility] 250-[address]: Liza Duque Ordering Physician: Liza Duque Date of Service: 05/31/24 Procedure(s): US OB BPP w non-stress Accession Number(s): [id number] cc: Liza Duque; KIMBERLYN XIE [place] [id number] Patient Name: PROSPER RUIZ MRN: [facility]:[id number] date: 1985 Sex: F Assigned Patient Location: [facility] Current Patient Location: [facility] Accession/Order Number: [id number] Exam Date: 05/31/2024 13:15 Report Date: 05/31/2024 [...] Butterfield M.D. Signed By: 05/31/24 1357 DD/ 135 TD/TT: Computer Instructor: [facility] Radiology, Radiologist, MD - 05/31/2024 [place] [address] Ultrasound Report Signed Patient: PROSPER RUIZ MR#: [id number] : 1985 Acct:[id number] Age/Sex: 39 / F ADM Date: 05/31/24 Loc: [facility] 250-[address]: Liza Duque Ordering Physician: Liza Duque Date of Service: 05/31/24 Procedure(s): US OB BPP w non-stress Accession Number(s): [id number] cc: Liza Duque; KIMBERLYN XIE [place] [id number] Patient Name: PROSPER RUIZ MRN: [id number] date: 1985 Sex: F Assigned Patient Location: [facility] Current Patient Location: [facility] Accession/Order Number: [id number] Exam Date: 05/31/2024 13:15 Report Date: 05/31/2024 13:55 At the request of: LIZA KT Procedure: US OB BPP w non-stress EXAMINATION: [...] By: Nato Butterfield M.D. Signed By: 05/31/24 135 DD/ 54 TD/TT: Computer Instructor: [facility] [employer] Radiology Study observation (narrative) [facility] [employer] US OB BPP W NON-STRESS Ordered By: Radiologist Radiology on 05-31-2024 [facility] Work Phone: US OB BPP W NON-STRESS on 05-30-2024 [place] [address] Ultrasound Report Signed Patient: PROSPER RUIZ MR#: [id number] : 1985 Acct:[id number] Age/Sex: 39 / F ADM Date: Loc: [facility] 250-[address]: Johnathan Recinos D.O. Ordering Physician: Johnathan Recinos D.O. Date of Service: 05/29/24 Procedure(s): US OB BPP w non-stress Accession Number(s): [id number] cc: KIMBERLYN XIE ; Johnathan Rceinos D.O. [facility] [place] [phone] Patient Name: PROSPER RUIZ MRN: [id number] date: 1985 Sex: F Assigned Patient Location: [facility] Current Patient Location: Accession/Order Number: [id number] Exam Date: 05/29/2024 15:40 Report Date: 05/30/2024 [...] Dictated By: Nato Butterfield M.D. Signed By: 05/30/2422 DD/ 8 TD/TT: Computer Instructor: [facility] Radiology, Radiologist, MD - 05/30/2024 [place] [address] Ultrasound Report Signed Patient: PROSPER RUIZ MR#: [id number] : 1985 Acct:[id number] Age/Sex: 39 / F ADM Date: Loc: [facility] 250-[address]: Johnathan Recinos D.O. Ordering Physician: Johnathan Recinos D.O. Date of Service: 05/29/24 Procedure(s): US OB BPP w non-stress Accession Number(s): [id number] cc: KIMBERLYN XIE ; Johnathan Reicnos D.O. [facility] [place] [phone] Patient Name: PROSPER RUIZ MRN: [facility]:[id number] date: 1985 Sex: F Assigned Patient Location: [facility] Current Patient Location: Accession/Order Number: [id number] Exam Date: 05/29/2024 15:40 Report Date: 05/30/2024 [...] M.D. Signed By: 05/30/24621 DD/ 8 TD/TT: Computer Instructor: [facility] Radiology Study observation (narrative) [facility] US OB BPP W NON-STRESS Ordered By: Radiologist Radiology on 05-30-2024 [facility] Work Phone: ALL CBC WITH AUTO DIFFon BASOPHILS ABSOLUTE AUTO 0 [facility] Basophils/100 WBC (Bld) 0.3 % 0.2 - 2.0 % [facility] Eosinophils/100 WBC (Bld) 0.5 % Low 0.9 - 7.0 % [facility] Erythrocyte distribution width (RBC) [Ratio] 13.2 % 11.0 - 15.0 % [facility] Hematocrit (Bld) [Volume fraction] 33.4 % Low 36.0 - 48.0 % [facility] Hemoglobin (Bld) [Mass/Vol] 10.9 g/dL Low 12.0 - 16.0 g/dL [facility] IMMATURE GRANULOCYTES ABS AUTO 0.03 [facility] Immature granulocytes/100 WBC (Bld) 0.4 % 0.0 - 0.5 % [facility] Interpretation and review of laboratory results Abnormal [facility] LYMPHOCYTES ABSOLUTE AUTO 1.5 [facility] Lymphocytes/100 WBC (Bld) 20.7 % 20.5 - 60.0 % [facility] MCH (RBC) [Entitic mass] 29.1 pg 26.7 - 34.0 pg [facility] MCHC (RBC) [Mass/Vol] 32.6 g/dL 29.9 - 35.2 g/dL [facility] MCV (RBC) [Entitic vol] 89.1 fL 81.0 - 99.0 fL [facility] MONOCYTES ABSOLUTE AUTO 0.4 [facility] Monocytes/100 WBC (Bld) 5.8 % 1.7 - 12.0 % [facility] NEUTROPHILS ABSOLUTE AUTO 5.4 [facility] Neutrophils/100 WBC (Bld) 72.3 % 43.0 - 75.0 % [facility] Platelet mean volume (Bld) [Entitic vol] 11.2 fL 9.5 - 13.5 fL [facility] TBH EO # 0 [facility] TB PLT 269 [facility] TB RBC 3.75 Low [facility] TBH WBC 7.4 [facility] Urinalysis macro (dipstick) panel (U)on 05-29-2024 Bilirubin, UA Negative Negative - 4(70) +++ mg/dL [facility] Blood, UA Negative Negative - 50 Slick/mcL [facility] Clarity, UA Clear [facility] re Color, UA Yellow [facility] Glucose, UA Negative Negative - 1999(110) ++++ mg/dL [facility] Interpretation and review of laboratory results Normal [facility] Ketones, UA Negative Negative - 160(16) ++++ mg/dL [facility] Leukocytes, UA Negative Negative - 500+++ Mira/mcL [facility] Nitrite, UA Negative Negative - Positive [facility] pH, UA 6 5 - 9 [facility] e Protein, UA Negative Negative - 1999(20) ++++ mg/dL [facility] Spec Grav, UA 1.015 1 - 1.03 [facility] Urobilinogen, UA 0.2 0.2 - 12 mg/dL [facility] macro (dipstick) panel (U)on 05-22-2024 Bilirubin, UA Negative Negative - 4(70) +++ mg/dL [facility] Blood, UA Negative Negative - 50 Slick/mcL [facility] Clarity, UA Clear [facility] re Color, UA Yellow [facility] Glucose, UA Negative Negative - 1999(110) ++++ mg/dL [facility] Interpretation and review of laboratory results Abnormal [facility] Healthcare Ketones, UA Negative Negative - 160(16) ++++ mg/dL [facility] Leukocytes, UA Trace Negative - 500+++ Mira/mcL [facility] Healthcare Nitrite, UA Negative Negative - Positive [facility] pH, UA 6 5 - 9 [facility] Protein, UA Trace Negative - 1999(20) ++++ mg/dL [facility] Healthcare Spec Grav, UA 1.015 1 - 1.03 [facility] Health [facility] Urobilinogen, UA 0.2 0.2 - 12 mg/dL [facility] Urinalysis macro (dipstick) panel (U)on 05-13-2024 Bilirubin, UA Negative Negative - 4(70) +++ mg/dL [facility] Blood, UA Positive Negative - 50 Slick/mcL [facility] Comment on above: trace Clarity, UA Clear [facility] re Color, UA Yellow [facility] Health[facility] Glucose, UA Negative Negative - 1999(110) ++++ mg/dL [facility] Interpretation and review of laboratory results Abnormal [facility] Ketones, UA Negative Negative - 160(16) ++++ mg/dL [facility] Leukocytes, UA Negative Negative - 500+++ Mira/mcL [facility] Nitrite, UA Negative Negative - Positive [facility] pH, UA 6.5 5 - 9 [facility] Health[facility] e Protein, UA Negative Negative - 1999(20) ++++ mg/dL [facility] Spec Grav, UA 1.01 1 - 1.03 [facility] Health care Urobilinogen, UA 0.2 0.2 - 12 mg/dL [facility] US OB FOLLOW UP [...] 2513 gm / 5 lbs, 8 oz (8937-7652 gm) [place] Normal: 2393 gm (5750-5360 gm) [place] Wt%: 65% for 34.1 wks [...] as of 03/21/2024: 32w3d TBH UA (CLEAN/CATCH) 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 Normal [facility] Comment on above: Performed By: #### C UU #### [facility] [address] RECURRENT VAGINITIS (HTRX)on 04-06-2024 ATOPOBIUM VAGINAE [...] TRICHOMONAS VAGINALIS Not detected [facility] Health[facility] Urinalysis macro (dipstick) panel (U)on 04-03-2024 Bilirubin, UA Negative Negative - 4(70) +++ mg/dL [facility] Blood, UA Negative Negative - 50 Slick/mcL [facility] Clarity, UA Cloudy [facility] Color, UA Yellow [facility] Health[facility] Glucose, UA 1+ Negative - 1999(110) ++++ mg/dL [facility] Comment on above: 100mg/dL Interpretation and review of laboratory results Abnormal [facility] Ketones, UA Negative Negative - 160(16) ++++ mg/dL [facility] Leukocytes, UA Trace Negative - 500+++ Mira/mcL [facility] Nitrite, UA Negative Negative - Positive [facility] pH, UA 6 5 - 9 [facility] Health[facility] Protein, UA Negative Negative - 1999(20) ++++ mg/dL [facility] Spec Grav, UA 1.01 1 - 1.03 [facility] Urobilinogen, UA 0.2 0.2 - 12 mg/dL [facility] e ALL CBC WITH AUTO DIFFon BASOPHILS ABSOLUTE AUTO 0 [facility] Basophils/100 WBC (Bld) 0.1 % Low 0.2 - 2.0 % [facility] Eosinophils/100 WBC (Bld) 0.5 % Low 0.9 - 7.0 % [facility] Erythrocyte distribution width (RBC) [Ratio] 13.9 % 11.0 - 15.0 % [facility] Hematocrit (Bld) [Volume fraction] 35.2 % Low 36.0 - 48.0 % [facility] Hemoglobin (Bld) [Mass/Vol] 11.5 g/dL Low 12.0 - 16.0 g/dL [facility] IMMATURE GRANULOCYTES ABS AUTO 0.05 High [facility] Immature granulocytes/100 WBC (Bld) 0.6 % High 0.0 - 0.5 % [facility] Interpretation and review of laboratory results Abnormal [facility] LYMPHOCYTES ABSOLUTE AUTO 1.9 [facility] Lymphocytes/100 WBC (Bld) 22.9 % 20.5 - 60.0 % [facility] MCH (RBC) [Entitic mass] 30.5 pg 26.7 - 34.0 pg [facility] MCHC (RBC) [Mass/Vol] 32.7 g/dL 29.9 - 35.2 g/dL [facility] MCV (RBC) [Entitic vol] 93.4 fL 81.0 - 99.0 fL [facility] MONOCYTES ABSOLUTE AUTO 0.3 [facility] Monocytes/100 WBC (Bld) 3.3 % 1.7 - 12.0 % [facility] NEUTROPHILS ABSOLUTE AUTO 6.1 [facility] Neutrophils/100 WBC (Bld) 72.6 % 43.0 - 75.0 % [facility] Platelet mean volume (Bld) [Entitic vol] 10.5 fL 9.5 - 13.5 fL [facility] TB[facility] EO # [facility] PLT 347 [facility] TBH RBC 3.77 Low [facility] TBH WBC 8.4 [facility] Health[facility] e Urinalysis macro (dipstick) panel (U)on 03-21-2024 Bilirubin, UA Negative Negative - 4(70) +++ mg/dL [facility] Center Blood, UA Negative Negative - 50 Slick/mcL [facility] Healthcare Clarity, UA Cloudy [facility] Color, UA Yellow [facility] Glucose, UA Positive Negative - 1999(110) ++++ mg/dL [facility] Comment on above: 500 mg Interpretation and review of laboratory results Abnormal [facility] Ketones, UA Negative Negative - 160(16) ++++ mg/dL [facility] Leukocytes, UA Negative Negative - 500+++ Mira/mcL [facility] Healthcare Nitrite, UA Negative Negative - Positive [facility] pH, UA 6.5 5 - 9 [facility] Protein, UA Negative Negative - 1999(20) ++++ mg/dL [facility] Healthcare Spec Grav, UA 1.025 1 - 1.03 [facility] care Urobilinogen, UA 0.2 0.2 - 12 mg/dL [facility]inalysis macro (dipstick) panel (U)on 03-11-2024 Bilirubin, UA Negative Negative - 4(70) +++ mg/dL [facility] Blood, UA Positive Negative - 50 Slick/mcL [facility] Comment on above: large Clarity, UA Clear [facility] Color, UA Straw [facility] Glucose, UA Negative Negative - 1999(110) ++++ mg/dL [facility] Interpretation and review of laboratory results Abnormal [facility] Ketones, UA Negative Negative - 160(16) ++++ mg/dL [facility] Leukocytes, UA Negative Negative - 500+++ Mira/mcL [facility] Healthcare Nitrite, UA Negative Negative - Positive [facility] pH, UA 6 5 - 9 [facility] Protein, UA Negative Negative - 1999(20) ++++ mg/dL [facility] Spec Grav, UA 1.02 1 - 1.03 [facility] Health care Urobilinogen, UA 0.2 0.2 - 12 mg/dL [facility] Healthcare [facility] TBH UA (CLEAN/CATCH) 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 RED YELLOW [facility] GLUCOSE URINE UA COLOR INTERFERENCE Abnormal NEGAT CARMELITA mg/dL [facility] Interpretation and review of laboratory results Abnormal [facility] Ketones Ql (U) COLOR INTERFERENCE Abnormal NEGATIV E mg/dL [facility] Leukocyte esterase Test strip Ql (U) COLOR INTERFERENCE Abnormal NEGATIVE [facility] care NITRITE URINE COLOR INTERFERENCE Abnormal NEGATIVE [facility] PH URINE COLOR INTERFERENCE Abnormal 5.0 - 9.0 [facility] H ealthcare PROTEIN URINE COLOR INTERFERENCE Abnormal NEG/TRAC E mg/dL [facility] SPECIFIC GRAVITY URINE 1.020 1.005 - 1.025 [facility] URINE MICROSCOPIC INDICATED YES [facility] UROBILINOGEN URINE COLOR INTERFERENCE Abnormal 0.2 - 1.0 EU/dL [facility] e Urinalysis macro (dipstick) panel (U)on 03-06-2024 Bilirubin, UA Positive Negative - 4(70) +++ mg/dL [facility] Blood, UA Positive Negative - 50 Slick/mcL [facility] Comment on above: large Clarity, UA Clear [facility] Healthde re Color, UA Dark Sanaz [facility] Glucose, UA Negative Negative - 1999(110) ++++ mg/dL [facility] Interpretation and review of laboratory results Abnormal [facility] Ketones, UA Negative Negative - 160(16) ++++ mg/dL [facility] Leukocytes, UA Trace Negative - 500+++ Mira/mcL [facility] Nitrite, UA Positive Negative - Positive [facility] pH, UA 6 5 - 9 [facility] Center e Protein, UA Positive Negative - 1999(20) ++++ mg/dL [facility] Comment on above: 100 Spec Grav, UA 1.02 1 - 1.03 [facility] Urobilinogen, UA 1.0 0.2 - 12 mg/dL [facility]inal[facility] macro (dipstick) panel (U)on 02-21-2024 Bilirubin, UA Negative Negative - 4(70) +++ mg/dL [facility] Blood, UA Negative Negative - 50 Slick/mcL [facility] Clarity, UA Clear [facility] Healthca re Color, UA Yellow [facility] Health[facility] e Glucose, UA Negative Negative - 1999(110) ++++ mg/dL [facility] Interpretation and review of laboratory results Abnormal [facility] Ketones, UA Negative Negative - 160(16) ++++ mg/dL [facility] Leukocytes, UA Trace Negative - 500+++ Mira/mcL [facility] Nitrite, UA Negative Negative - Positive [facility] pH, UA 5.5 5 - 9 [facility] Health[facility] e Protein, UA Negative Negative - 2000(20) ++++ mg/dL [facility] Spec Grav, UA 1.01 1 - 1.03 [facility] care Urobilinogen, UA 0.2 0.2 - 12 mg/dL [facility] CBC AND AUTO DIFFon 02-09-20 24 ABSOLUTE BASOPHIL 0.0 X10E9/L Normal 0.0-0.2 [facility] Comment on above: Performed By: #### 3 2132-1, CMP, CBCA #### [facility] ([id number]) [address], [address] [place] [address] ABSOLUTE NEUTROPHIL 5.4 X10E9/L Normal 1.5-6.6 [facility] Comment on above: Performed By: #### 3 2132-1, CMP, CBCA #### [facility] ([id number]) [address], [address] [place] [address] Basophils/100 WBC (Bld) 0.2 % Normal [facility] Comment on above: Performed By: #### 3 2132-1, CMP, CBCA #### [facility] ([id number]) [address], [address] [place] [address] Eosinophils (Bld) [#/Vol] 0.1 10*3/uL Normal 0.0-0.4 [facility] Comment on above: Performed By: #### 3 2132-1, CMP, CBCA #### [facility] ([id number]) [address], [address] [place] [address] Eosinophils/100 WBC (Bld) 0.9 % Normal [facility] Comment on above: Performed By: #### 3 2132-1, CMP, CBCA #### [facility] ([id number]) [address] [address] [place] [address] Erythrocyte distribution width (RBC) [Ratio] 14.3 % Normal 11.5-15.0 [facility] Comment on above: Performed By: #### 3 2132-1, CMP, CBCA #### [facility] ([id number]) [address] [address] [place] [address] Hematocrit (Bld) [Volume fraction] 30.3 % Low 35-47 [facility] Comment on above: Performed By: #### 3 2132-1, CMP, CBCA #### [facility] ([id number]) [address] [address] [place] [address] Hemoglobin (Bld) [Mass/Vol] 10.3 g/dL Low 11.7-15.5 [facility] Comment on above: Performed By: #### 3 2132-1, CMP, CBCA #### [facility] ([id number]) [address] [address] [place] [address] Lymphocytes (Bld) [#/Vol] 1.7 10*3/uL Normal 1.0-3.5 [facility] Comment on above: Performed By: #### 3 2132-, CMP, CBCA #### [facility] ([id number]) [address] [address] Lymphocytes/100 WBC (Bld) 22.0 % Normal [facility] Comment on above: Performed By: #### 3 2132-1, CMP, CBCA #### [facility] ([id number]) [address] [address] [place] [address] MCH (RBC) [Entitic mass] 31.3 pg Normal 27-34 [facility] Comment on above: Performed By: #### 3 2132-1, CMP, CBCA #### [facility] ([id number]) [address] [address] [place] [address] MCHC (RBC) [Mass/Vol] 34.0 g/dL Normal 32-36 [facility] Comment on above: Performed By: #### 3 2132-1, CMP, CBCA #### [facility] ([id number]) [address], [facility] [address] [place] [address] MCV (RBC) [Entitic vol] 92 fL Normal 80-100 [facility] Comment on above: Performed By: #### 3 2132-1, CMP, CBCA #### [facility] ([id number]) [address], [facility] [address] [place] [address] Monocytes (Bld) [#/Vol] 0.5 10*3/uL Normal 0-0.9 [facility] Comment on above: Performed By: #### 3 2132-1, CMP, CBCA #### [facility] ([id number]) [address], [facility] [address] [place] [address] Monocytes/100 WBC (Bld) 7.0 % Normal [facility] Comment on above: Performed By: #### 3 2132-1, CMP, CBCA #### [facility] ([id number]) [address], [facility] [address] [place] [address] Neutrophils/100 WBC (Bld) 69.9 % Normal [facility] Comment on above: Performed By: #### 3 2132-1, CMP, CBCA #### [facility] ([id number]) [address], [address] [place] [address] Platelet mean volume (Bld) [Entitic vol] 8.8 fL Normal 7-12 [facility] Comment on above: Performed By: #### 3 2132-1, CMP, CBCA #### [facility] ([id number]) [address], [address] [place] [address] Platelets (Bld) [#/Vol] 259 10*3/uL Normal 150-450 [facility] Comment on above: Performed By: #### 3 2132-1, CMP, CBCA #### [facility] ([id number]) [address], [address] [place] [address] RBC COUNT 3.29 X10E12/L Low 3.80-5.20 [facility] Comment on above: Performed By: #### 3 2132-1, CMP, CBCA #### [facility] ([id number]) [address], [address] [place] [address] WBC (Bld) [#/Vol] 7.7 10*3/uL Normal 4.0-11.0 [facility] Comment on above: Performed By: #### 3 2132-1, CMP, CBCA #### [facility] ([id number]) [address], [address] [place] [address] COMPREHENSIVE METABOLIC PANE [facility] 02-09-2024 Albumin [Mass/Vol] 2.9 g/dL Low 3.2-5.3 [facility] Comment on above: Performed By: #### 3 2132-1, CMP, CBCA #### [facility] ([id number]) [address], [address] [place] [address] ALP [Catalytic activity/Vol] 118 U/L Normal 39-130 [facility] Comment on above: Performed By: #### 3 2132-1, CMP, CBCA #### [facility] ([id number]) [address], [address] [place] [address] ALT [Catalytic activity/Vol] 6 U/L Normal 0-31 [facility] Comment on above: Performed By: #### 3 2132-1, CMP, CBCA #### [facility] ([id number]) [address], [address] [place] [address] Anion gap [Moles/Vol] 10 mmol/L Normal 5-15 [facility] Comment on above: Performed By: #### 3 2132-1, CMP, CBCA #### [facility] ([id number]) [address], [address] [place], [place] [address] AST [Catalytic activity/Vol] 9 U/L Normal 0-41 [facility] Comment on above: Performed By: #### 3 2132-1, CMP, CBCA #### [facility] ([id number]) [address], [address] [place], [place] [address] Bilirubin [Mass/Vol] 0.4 mg/dL Normal 0.3-1.2 [facility] Comment on above: Performed By: #### 3 2132-1, CMP, CBCA #### [facility] ([id number]) [address], [address] [place], [place] [address] Calcium [Mass/Vol] 8.5 mg/dL Normal 8.5-10.5 [facility] Comment on above: Performed By: #### 3 2132-1, CMP, CBCA #### [facility] ([id number]) [address], [address] [place], [place] [address] Chloride [Moles/Vol] 105 mmol/L Normal 98-109 [facility] Comment on above: Performed By: #### 3 2132-1, CMP, CBCA #### [facility] ([id number]) [address], [address] [place] [address] CO2 [Moles/Vol] 22 mmol/L Normal 22-32 [facility] Comment on above: Performed By: #### 3 2132-1, CMP, CBCA #### [facility] ([id number]) [address], [address] [place], [place] [address] Creatinine [Mass/Vol] 0.45 mg/dL Normal 0.40-1.00 [facility] Comment on above: Result Comment: METH OD TRACEABLE TO IDMS STANDARD Performed By: #### 3 2132-1, CMP, CBCA #### [facility] ([id number]) [address], [address] [place] [address] eGFR (CKD-EPI) NON-RACE DEPENDENT >90 Normal >59 [facility] Comment on above: Result Comment: Reported eGFR is based on the CKD-EPI 2020 equation that does not use a race coefficient. Performed By: #### 3 2132-1, CMP, CBCA #### [facility] ([id number]) [address], [facility] [address] [place] [address] Glucose [Mass/Vol] 84 mg/dL Normal 65-99 [facility] Comment on above: Performed By: #### 3 2132-1, CMP, CBCA #### [facility] ([id number]) [address], [facility] [address] [place] [address] Potassium [Moles/Vol] 3.7 mmol/L Normal 3.5-5.0 [facility] Comment on above: Performed By: #### 3 2132-1, CMP, CBCA #### [facility] ([id number]) [address], [address] [place] [address] Protein [Mass/Vol] 6.0 g/dL Normal 6.0-8.0 [facility] Comment on above: Performed By: #### 3 2132-1, CMP, CBCA #### [facility] ([id number]) [address], [address] [place] [address] Sodium [Moles/Vol] 137 mmol/L Normal 134-146 [facility] Comment on above: Performed By: #### 3 2132-1, CMP, CBCA #### [facility] ([id number]) [address], [address] [place] [address] Urea nitrogen [Mass/Vol] 5 mg/dL Normal 5-23 [facility] Comment on above: Performed By: #### 3 3-1, CMP, CBCA #### [facility] ([id number]) [address], [address] [place] [address] MAGNESIUMon 02-09-2024 Magnesium [Mass/Vol] 1.6 mg/dL Low 1.8-2.6 [facility] Comment on above: Performed By: #### 3 2132-1, CMP, CBCA #### [facility] ([id number]) [address] [place] [address] PHOSPHORUSon 02-09-2024 Phosphate [Mass/Vol] 4.5 mg/dL Normal 2.4-4.9 [facility] Comment on above: Performed By: #### 3 2132-1, CMP, CBCA #### [facility] ([id number]) [address], [address] [place] [address] US RETROPERITONEAL LIMITEDon 02-09-2024 US RETROPERITONEAL LIMITED [...] Andrade MD on 02/09/2024 10:14 AM Normal [facility] BLOOD CULTUREon 02-08-2024 Bacteria identified Aer cx Nom (Bld) SPECIMEN NOTES SUBOPTIMAL VOLUME OF BLOOD COLLECTED, RESULTS MAY BE AFFECTED. CULTURE RESULTS NO GROWTH 5 DAYS Normal [facility] Comment on above: Performed By: #### 3 2132-, CMP, CBCA #### [facility] ([id number]) [address], [address] [place] [address] Bacteria identified Aer cx Nom (Bld) SPECIMEN NOTES SUBOPTIMAL VOLUME OF BLOOD COLLECTED, RESULTS MAY BE AFFECTED. CULTURE RESULTS NO GROWTH 5 DAYS Normal [facility] Comment on above: Performed By: #### 1 7928-3 #### [facility] ([id number]) [address], [address] [place] [address] CBC AND AUTO DIFFon 10-10-20 24 ABSOLUTE BASOPHIL 0.0 X10E9/L Normal 0.0-0.2 [facility] Comment on above: Performed By: #### 3 2132-, CMP, CBCA #### [facility] ([id number]) [address], [address] [place] [address] ABSOLUTE NEUTROPHIL 9.5 X10E9/L High 1.5-6.6 [facility] Comment on above: Performed By: #### 3 2132-, CMP, CBCA #### [facility] ([id number]) [address], [address] [place] [address] Basophils/100 WBC (Bld) 0.0 % Normal [facility] Comment on above: Performed By: #### 3 2132-1, CMP, CBCA #### [facility] ([id number]) [address], [address] [place] [address] Eosinophils (Bld) [#/Vol] 0.0 10*3/uL Normal 0.0-0.4 [facility] Comment on above: Performed By: #### 3 2132-1, CMP, CBCA #### [facility] ([id number]) [address], [address] [place] [address] Eosinophils/100 WBC (Bld) 0.0 % Normal [facility] Comment on above: Performed By: #### 3 2132-1, CMP, CBCA #### [facility] ([id number]) [address], [address] [place] [address] Erythrocyte distribution width (RBC) [Ratio] 14.5 % Normal 11.5-15.0 [facility] Comment on above: Performed By: #### 3 2132-1, CMP, CBCA #### [facility] ([id number]) [address], [address] [place] [address] Hematocrit (Bld) [Volume fraction] 31.3 % Low 35-47 [facility] Comment on above: Performed By: #### 3 2132-1, CMP, CBCA #### [facility] ([id number]) [address], [address] [place] [address] Hemoglobin (Bld) [Mass/Vol] 10.6 g/dL Low 11.7-15.5 [facility] Comment on above: Performed By: #### 3 2132-, CMP, CBCA #### [facility] ([id number]) [address], [address] [place] [address] Lymphocytes (Bld) [#/Vol] 1.1 10*3/uL Normal 1.0-3.5 [facility] Comment on above: Performed By: #### 3 2132-1, CMP, CBCA #### [facility] ([id number]) [address], [address] [place] [address] Lymphocytes/100 WBC (Bld) 9.4 % Normal [facility] Comment on above: Performed By: #### 3 2132-1, CMP, CBCA #### [facility] ([id number]) [address], [address] [place] [address] MCH (RBC) [Entitic mass] 30.8 pg Normal 27-34 [facility] Comment on above: Performed By: #### 3 2132-1, CMP, CBCA #### [facility] ([id number]) [address], [address] [place] [address] MCHC (RBC) [Mass/Vol] 33.9 g/dL Normal 32-36 [facility] Comment on above: Performed By: #### 3 2132-1, CMP, CBCA #### [facility] ([id number]) [address], [address] [place] [address] MCV (RBC) [Entitic vol] 91 fL Normal 80-100 [facility] Comment on above: Performed By: #### 3 2132-1, CMP, CBCA #### [facility] ([id number]) [address] [place] [address] Monocytes (Bld) [#/Vol] 0.9 10*3/uL Normal 0-0.9 [facility] Comment on above: Performed By: #### 3 2132-1, CMP, CBCA #### [facility] ([id number]) [address] [place] [address] Monocytes/100 WBC (Bld) 8.2 % Normal [facility] Comment on above: Performed By: #### 3 2132-1, CMP, CBCA #### [facility] ([id number]) [address], [address] [place] [address] Neutrophils/100 WBC (Bld) 82.4 % Normal [facility] Comment on above: Performed By: #### 3 2132-1, CMP, CBCA #### [facility] ([id number]) [address], [address] [place] [address] Platelet mean volume (Bld) [Entitic vol] 8.5 fL Normal 7-12 [facility] Comment on above: Performed By: #### 3 2132-1, CMP, CBCA #### [facility] ([id number]) [address], [address] [place] [address] Platelets (Bld) [#/Vol] 246 10*3/uL Normal 150-450 [facility] Comment on above: Performed By: #### 3 2132-1, CMP, CBCA #### [facility] ([id number]) [address], [address] [place] [address] RBC COUNT 3.44 X10E12/L Low 3.80-5.20 [facility] Comment on above: Performed By: #### 3 2132-1, CMP, CBCA #### [facility] ([id number]) [address] [place] [address] WBC (Bld) [#/Vol] 11.5 10*3/uL High 4.0-11.0 [facility] Comment on above: Performed By: #### 3 2132-1, CMP, CBCA #### [facility] ([id number]) [address] [place] [address] COMPREHENSIVE METABOLIC PANE Paco 02-08-2024 Albumin [Mass/Vol] 3.1 g/dL Low 3.2-5.3 [facility] Comment on above: Performed By: #### 3 2132-1, CMP, CBCA #### [facility] ([id number]) [address], [address] [place] [address] ALP [Catalytic activity/Vol] 100 U/L Normal 39-130 [facility] Comment on above: Performed By: #### 3 2132-1, CMP, CBCA #### [facility] ([id number]) [address], [address] [place] [address] ALT [Catalytic activity/Vol] 7 U/L Normal 0-31 [facility] Comment on above: Performed By: #### 3 2132-1, CMP, CBCA #### [facility] ([id number]) [address] [place] [address] Anion gap [Moles/Vol] 12 mmol/L Normal 5-15 [facility] Comment on above: Performed By: #### 3 2132-1, CMP, CBCA #### [facility] ([id number]) [address], [address] [place] [address] AST [Catalytic activity/Vol] 8 U/L Normal 0-41 [facility] Comment on above: Performed By: #### 3 2132-1, CMP, CBCA #### [facility] ([id number]) [address], [address] [place] [address] Bilirubin [Mass/Vol] 0.5 mg/dL Normal 0.3-1.2 [facility] Comment on above: Performed By: #### 3 2132-1, CMP, CBCA #### [facility] ([id number]) [address], [address] [place] [address] Calcium [Mass/Vol] 8.3 mg/dL Low 8.5-10.5 [facility] Comment on above: Performed By: #### 3 2132-1, CMP, CBCA #### [facility] ([id number]) [address] [place] [address] Chloride [Moles/Vol] 104 mmol/L Normal 98-109 [facility] Comment on above: Performed By: #### 3 2132-1, CMP, CBCA #### [facility] ([id number]) [address] [place] [address] CO2 [Moles/Vol] 20 mmol/L Low 22-32 [facility] Comment on above: Performed By: #### 3 2132-1, CMP, CBCA #### [facility] ([id number]) [address] [place] [address] Creatinine [Mass/Vol] 0.53 mg/dL Normal 0.40-1.00 [facility] Comment on above: Result Comment: METH OD TRACEABLE TO IDMS STANDARD Performed By: #### 3 2132-1, IZAIAH, CBCA #### [facility] ([id number]) [address], [facility] [address] [place] [address] eGFR (CKD-EPI) NON-RACE DEPENDENT >90 Normal >59 [facility] Comment on above: Result Comment: Reported eGFR is based on the CKD-EPI 2020 equation that does not use a race coefficient. Performed By: #### 3 2132-1, IZAIAH, CBCA #### [facility] ([id number]) [address] [address] [place] [address] Glucose [Mass/Vol] 115 mg/dL High 65-99 [facility] Comment on above: Performed By: #### 3 2132-1, CMP, CBCA #### [facility] ([id number]) [address], [address] [place] [address] Potassium [Moles/Vol] 3.6 mmol/L Normal 3.5-5.0 [facility] Comment on above: Performed By: #### 3 2132-1, IZAIAH, CBCA #### [facility] ([id number]) [address] [place] [address] Protein [Mass/Vol] 6.1 g/dL Normal 6.0-8.0 [facility] Comment on above: Performed By: #### 3 2132-1, CMP, CBCA #### [facility] ([id number]) [address] [address] [place] [address] Sodium [Moles/Vol] 136 mmol/L Normal 134-146 [facility] Comment on above: Performed By: #### 3 2132-1, CMP, CBCA #### [facility] ([id number]) [address] [address] [place] [address] Urea nitrogen [Mass/Vol] 3 mg/dL Low 5-23 [facility] Comment on above: Performed By: #### 3 3-1, CMP, CBCA #### [facility] ([id number]) [address] [place] [address] DRUG SCREEN, URINEon 024 AMPHETAMINE/METHAMP Negative Normal NEG [facility] Comment on above: Result Comment: AMPH /METH screening cut off = 1000 ng/mL Performed By: #### D GUILLEN #### [facility] ([id number]) [address] [place] [address] BARBITURATES Negative Normal NEG [facility] Comment on above: Result Comment: Megan iturates screening cut off value = 200 ng/mL Performed By: #### D GUILLEN #### [facility] ([id number]) [address] [place] [address] BENZODIAZEPINES Negative Normal NEG [facility] Comment on above: Result Comment: Giorgio odiazepines screening cut off value = 200 ng/mL Performed By: #### D GUILLEN #### [facility] ([id number]) [address] [place] [address] CANNABINOIDS Negative Normal NEG [facility] Comment on above: Result Comment: Elsie abinoids/THC screening cut off value = 50 ng/mL Performed By: #### D GUILLEN #### [facility] ([id number]) [address] [place] [address] COCAINE METABOLITE Negative Normal NEG [facility] Comment on above: Result Comment: Coca ine screening cut off value = 300 ng/mL Performed By: #### D GUILLEN #### [facility] ([id number]) [address] [place] [address] ECSTASY Negative Normal NEG [facility] Comment on above: Result Comment: Ecst asy screening cut off value = 500 ng/mL This report is intended for use in clinical monitoring or management of patients. Performed By: #### D GUILLEN #### [facility] LAB ([id number]) [address], [address] [place] [address] METHADONE Negative Normal NEG [facility] Comment on above: Result Comment: Meth adone screening cut off value = 300 ng/mL. Performed By: #### D GUILLEN #### [facility] ([id number]) [address], [address] [address] OPIATES Negative Normal NEG [facility] Comment on above: Result Comment: Opia joey screening cut off value = 300 ng/mL NOTE: This test is used for the detection of codeine, hydrocodone (>1000 ng/mL), morphine and hydromorphone (>900 ng/mL) in urine. Performed By: #### D GUILLEN #### [facility] ([id number]) [address] [address] OXYCODONE Negative Normal NEG [facility] Comment on above: Result Comment: Oxyc odone screening cut off value = 300 ng/mL NOTE: This test is used for the detection of oxycodone and oxymorphone in urine. Performed By: #### D GUILLEN #### [facility] ([id number]) [address], [address] [address] PHENCYCLIDINE Negative Normal NEG [facility] Comment on above: Result Comment: Phen cyclidine screening cut off value = 25 ng/mL Performed By: #### D GUILLEN #### [facility] ([id number]) [address], [facility] [address] [place] [address] Glucose Glucometer (BldC) [M ass/Vol]on 02-08-2024 Glucose [Mass/Vol] 107 mg/dL High 65-99 [facility] Lactate (P melvin) [Moles/Vol]o n 02-08-2024 LACTATE W/REFLEX 1.0 mmol/L Normal 0.4-2.0 [facility] Comment on above: Result Comment: Result did not trigger repeat Lactate, re-order if needed. Performed By: #### 7 5241-0, 63303-7 #### [facility] ([id number]) [address], [address] [place] [address] LACTATE W/REFLEX 0.8 mmol/L Normal 0.4-2.0 [facility] Comment on above: Result Comment: Result did not trigger repeat Lactate, re-order if needed. Performed By: #### 3 2133-1, CMP, CBCA #### [facility] ([id number]) [address], [address] [place] [address] Procalcitonin IA [Mass/Vol]o n 02-08-2024 PROCALCITONIN 0.74 ng/mL High <0.05 [facility] Comment on above: Result Comment: NOTE <0.50 ng/mL - Low risk of severe sepsis and/or septic shock. <2.00 ng/mL - Recommend retesting within 6-24 hours. >2.00 ng/mL - High risk of sepsis and/or septic shock. Performed By: #### 7 5241-0, 34442-5 #### [facility] ([id number]) [address], [address] [place] [address] URINALYSISon 02-08-2024 Bilirubin Ql (U) Negative Normal NEG [facility] Comment on above: Performed By: #### U A #### [facility] ([id number]) [address], [address] [place] [address] BLOOD/HGB Small Abnormal NEG [facility] Comment on above: Performed By: #### U A #### [facility] ([id number]) [address], [address] [place] [address] Color (U) YELLOW Normal YELLOW [facility] Comment on above: Performed By: #### U A #### [facility] ([id number]) [address], [address] [place] [address] Glucose Ql (U) Negative Normal NEG [facility] Comment on above: Performed By: #### U A #### [facility] ([id number]) [address], [address] [place] [address] Ketones Ql (U) 20 mg/dL Abnormal NEG [facility] Comment on above: Performed By: #### U A #### [facility] ([id number]) [address], [address] [place] [address] Leukocyte esterase Test strip Ql (U) Negative Normal NEG [facility] Comment on above: Performed By: #### U A #### [facility] ([id number]) [address], [address] [place] [address] MUCOUS PRESENT Abnormal NONE [facility] Comment on above: Performed By: #### U A #### [facility] ([id number]) [address], [address] [place] [address] Nitrite Ql (U) Negative Normal NEG [facility] Comment on above: Performed By: #### U A #### [facility] ([id number]) [address], [address] [place] [address] pH (U) 8.0 [pH] Normal 5.0-8.5 [facility] Comment on above: Performed By: #### U A #### [facility] ([id number]) [address], [address] [place] [address] Protein Ql (U) Trace Abnormal NEG [facility] Comment on above: Performed By: #### U A #### [facility] ([id number]) [address], [address] [place] [address] R.B.CELLS 16 /hpf High 0-5 [facility] Comment on above: Performed By: #### U A #### [facility] ([id number]) [address] [facility] [place] [address] Specific gravity (U) [Rel density] 1.012 Normal 1.003-1.035 [facility] Comment on above: Performed By: #### U A #### [facility] ([id number]) [address] [place] [address] SQUAMOUS EPITHELIUM 1 /hpf Normal 0-5 [facility] Comment on above: Performed By: #### U A #### [facility] ([id number]) [address] [place] [address] TRANSITIONAL EPITH <1 High 0 [facility] Comment on above: Performed By: #### U A #### [facility] ([id number]) [address] [place] [address] TURBIDITY CLEAR Normal CLEAR [facility] Comment on above: Performed By: #### U A #### [facility] ([id number]) [facility] [address] [address] Urobilinogen Qn (U) 2 {Blanca'U}/dL High <1.1 [facility] Comment on above: Performed By: #### U A #### [facility] ([id number]) [facility] [address] [place] [address] W.B.CELLS 2 /hpf Normal 0-5 [facility] Comment on above: Performed By: #### U A #### [facility] ([id number]) [address] [place] [address] [address] [place] [address] URINE CULTUREon 02-08-2024 Bacteria identified Cx Nom (U) CULTURE RESULTS NO GROWTH AT <1000 CFU/mL Normal [facility] Comment on above: Performed By: #### 3 3-1, CMP, CBCA #### [facility] ([id number]) [address], [address] [place] [address] XR CHEST 1 VWon 02-08-2024 XR CHEST [...] Rubi MD on 02/08/2024 9:35 AM Normal [facility] URETHRITIS/DISCHARGE PLUS VA GINITIS (HTRX)on 01-27-2024 ATOPOBIUM [...] e AFP, SERUM, OPEN SPINA BIFID Aon 09-27-2024 AFP MOM 1.08 . [facility] AFP VALUE 35.9 ng/mL . [facility] COMMENT: Comment . [facility] [employer] Comment on above: Nette Holley , Ph.D., [facility] Director References: Available Upon Request. Multiples Of Median Cutoffs For AFP Elevations Rao 2.5 Black 2.8 IDD 2.0 Twins 4.5 Abbreviation Definitions IDD - Insulin Dep Diabetes OSBR - Open Spina Bifida Risk For further inquiries contact [employer] at [phone]. This test was developed and its performance characteristics determined by [employer]. It has not been cleared or approved by the Food and Drug Administration. Performed at: [facility] [address] [place], [place] [id number] Allergy Specialist: Ashley Duggan [facility], Phone: [phone] GEST. AGE ON COLLECTION DATE 17.9 . weeks [facility] GESTAT. AGE BASED ON As provided . [facility] Comment on above: Recalculations are n ot recommended when gestational dating by LMP and ultrasound are within 10 days. INSULIN DEP DIABETES No . [facility] Healthcare INTERPRETATION Comment . [facility] Comment on above: Interpretation: Scre en [...] Customer Services to discuss available options. The [employer] recommends amniocentesis be offered to women age 35 and older. [age] [facility] MULTIPLE GESTATION No . [facility] OSBR RISK [address] [facility] RACE Other . [facility] HealthParadial e RESULTS Report . [facility] OPHTHONIX e TEST RESULTS: Negative . [facility] WEIGHT 225 . lbs [facility] [employer] PREGNANY N N ULTRASOUND [id number] [phone] N 1 Y 225 N N N N N White/ [facility] [employer] Urinalysis macro (dipstick) panel (U)on 09-25-2024 Bilirubin, UA Negative Negative - 4(70) +++ mg/dL [facility] Healthcare Blood, UA Negative Negative - 50 Slick/mcL [facility] Clarity, UA Clear [facility] Color, UA Yellow [facility] Glucose, UA Negative Negative - 1999(110) ++++ mg/dL [facility] Healthcare Interpretation and review of laboratory results Abnormal [facility] Healthcare Ketones, UA Negative Negative - 160(16) ++++ mg/dL [facility] Healthcare Leukocytes, UA Trace Negative - 500+++ Mira/mcL [facility] Healthcare Nitrite, UA Negative Negative - Positive [facility] pH, UA 6.5 5 - 9 [facility] Protein, UA Negative Negative - 1999(20) ++++ mg/dL [facility] Spec Grav, UA 1.020 1 - 1.03 [facility] Health care Urobilinogen, UA 1.0 0.2 - 12 mg/dL [facility] Healthcare [facility] Urinalysis macro (dipstick) panel (U)on 01-03-2024 Bilirubin, UA Negative Negative - 4(70) +++ mg/dL [facility] Healthcare Blood, UA Positive Negative - 50 Slick/mcL [facility] Healthcare Comment on above: trace Clarity, UA Clear [facility] Color, UA Yellow [facility] Glucose, UA Negative Negative - 1999(110) ++++ mg/dL [facility] Healthcare Interpretation and review of laboratory results Abnormal [facility] Healthcare Ketones, UA Negative Negative - 160(16) ++++ mg/dL [facility] Healthcare Leukocytes, UA Positive Negative - 500+++ Mira/mcL [facility] Healthcare Comment on above: small Nitrite, UA Negative Negative - Positive [facility] Healthcare pH, UA 6.0 5 - 9 [facility] Protein, UA Negative Negative - 1999(20) ++++ mg/dL [facility] Healthcare Spec Grav, UA 1.020 1 - 1.03 [facility] Health care Urobilinogen, UA 0.2 0.2 - 12 mg/dL [facility] Healthcare [facility] No Panel InformationOrdered By: Sanaz Lockwood on 08-18-2023 Quick Strep (POC) [facility] COVID + FLU Quick Testingon 04-27-2023 SARS-CoV-2 (COVID-19) RNA J LUIS+probe Ql (Unsp spec) Negative [employer] Other COVID + FLU Quick Testing Negative [employer] Other Quick Strepon 04-27-2023 S. pyogenes Org specific cx Ql (Throat) Negative [employer] Other Quick Strep [facility] [employer] Other COVID/FLU/RSV RT-PCRon 05-10 SARS-CoV-2 (COVID-19) RNA J LUIS+probe Ql (Unsp spec) Negative [facility] [facility] [employer] Other COVID/FLU/RSV RT-PCR Positive [employer] Other COVID/FLU/RSV RT-PCR Negative [employer] Other CBC AUTO DIFFon 04-27-2022 BASO # 0.0 103/ul Normal 0.0-0.1 [facility] Comment on above: Performed By: #### C BC #### [facility] [address] [place] [address] Dr. Dee Humphrey Basophils/100 WBC (Bld) 0.2 % Normal 0.2-2.0 [facility] Comment on above: Performed By: #### C BC #### [facility] [address] [place] [address] Dr. Dee Humphrey EO # 0.1 103/ul Normal 0.0-0.7 [facility] Comment on above: Performed By: #### C BC #### [facility] [address] [place] [address] Dr. Dee Humphrey Eosinophils/100 WBC (Bld) 0.6 % Critically low 0.9-7.0 [facility] Comment on above: Performed By: #### C BC #### [facility] [address] [place] [address] Dr. Dee Humphrey Erythrocyte distribution width (RBC) [Ratio] 14.1 % Normal 11.0-15.0 [facility] Comment on above: Performed By: #### C BC #### [facility] [address] [address] [address] Dee Humphrey Hematocrit (Bld) [Volume fraction] 37.1 % Normal 36.0-48.0 [facility] Comment on above: Performed By: #### C BC #### [facility] [address] [place] [address] Dr. Dee Humphrey Hemoglobin (Bld) [Mass/Vol] 12.4 g/dL Normal 12.0-16.0 [facility] Comment on above: Performed By: #### C BC #### [facility] [address] [place] [address] Dr. Dee Humphrey IG # 0.06 10e3/ul Critically high 0.00-0.03 [facility] Comment on above: Performed By: #### C BC #### [facility] [address] [place] [address] Dr. Dee Humphrey IG % 0.5 % Normal 0.0-0.5 [facility] Comment on above: Performed By: #### C BC #### [facility] [address] [place] [address] Dr. Dee Humphrey LYMPH # 3.7 103/ul Normal 1.2-3.8 [facility] Comment on above: Performed By: #### C BC #### [facility] [address] [place] [address] Dr. Dee Humphrey Lymphocytes/100 WBC (Bld) 28.7 % Normal 20.5-60.0 [facility] Comment on above: Performed By: #### C BC #### [facility] [address] [place] [address] Dr. Dee Humphrey MANUAL DIFF REQ NO Normal [facility] Comment on above: Performed By: #### C BC #### [facility] [address] [place] [address] Dr. Dee Humphrey MCH (RBC) [Entitic mass] 30.2 pg Normal 26.7-34.0 [facility] Comment on above: Performed By: #### C BC #### [facility] [address] [place] [address] Dr. Dee Humphrey MCHC (RBC) [Mass/Vol] 33.4 g/dL Normal 29.9-35.2 [facility] Comment on above: Performed By: #### C BC #### [facility] [address] [address] [address] Dee Humphrey MCV (RBC) [Entitic vol] 90.5 fL Normal 81.0-99.0 [facility] Comment on above: Performed By: #### C BC #### [facility] [address] [address] [address] Dee Humphrey MONO # 0.7 103/ul Normal 0.3-0.8 [facility] Comment on above: Performed By: #### C BC #### [facility] [address] [place] [address] Dr. Dee Humphrey Monocytes/100 WBC (Bld) 5.0 % Normal 1.7-12.0 [facility] Comment on above: Performed By: #### C BC #### [facility] [address] [address] [address] Dee Humphrey NEUT # 8.5 103/ul Critically high 1.4-6.5 [facility] Comment on above: Performed By: #### C BC #### [facility] [address] [address] [address] Dee Humphrey Neutrophils/100 WBC (Bld) 65.0 % Normal 43.0-75.0 [facility] Comment on above: Performed By: #### C BC #### [facility] [address] [address] [address] Dee Humphrey Platelet mean volume (Bld) [Entitic vol] 9.6 fL Normal 9.5-13.5 [facility] Comment on above: Performed By: #### C BC #### [facility] [address] [place] [address] Dr. Dee Humphrey PLT 317 103/ul Normal 150-450 [facility] Comment on above: Performed By: #### C BC #### [facility] [address] [address] [address] Dee Humphrey RBC 4.10 106/ul Critically low 4.20-5.40 [facility] Comment on above: Performed By: #### C BC #### [facility] [address] [place], [place] [address] Dr. Dee Humphrey WBC 13.1 103/ul Critically high 4.0-11.[address] [facility] Comment on above: Performed By: #### C BC #### [facility] [address] [place], [place] [address] ABD/PELVIS WO CONon [...] 2022-04-27 20:24 Normal [facility] ER URINE PROFILEon 2 Bilirubin Ql (U) Negative Normal NEGATIVE [facility] Comment on above: Performed By: #### P REGU, ERUR #### [facility] [address] [place], [place] [address] Dr. Dee Humphrey Clarity (U) CLEAR Normal CLEAR [facility] Comment on above: Performed By: #### P REGU, ERUR #### [facility] [address] [address] [address] Dee Humphrey Color (U) YELLOW Normal YELLOW [facility] Comment on above: Performed By: #### P REGU, ERUR #### [facility] [address] [address] [address] Dee STANFORD A micrscopic examination will be performed if indicated. Normal [facility] Comment on above: Performed By: #### P REGU, ERUR #### [facility] [address] [address] [address] Dee Humphrey Glucose Ql (U) Negative Normal NEGATIVE The [facility] Comment on above: Performed By: #### P REGU, ERUR #### [facility] [address] [place] [address] Dr. Dee Humphrey Hemoglobin Ql (U) Negative Normal NEGATIVE [facility] Comment on above: Performed By: #### P REGU, ERUR #### [facility] [address] [place] [address] Dr. Dee Humphrey Ketones Ql (U) Negative Normal NEGATIVE [facility] Comment on above: Performed By: #### P REGU, ERUR #### [facility] [address] [place] [address] Dr. Dee Humphrey LEUKOCYTES Negative Normal NEGATIVE [facility] Comment on above: Performed By: #### P REGU, ERUR #### [facility] [address] [address] [address] Dee Humphrey Nitrite Ql (U) Negative Normal NEGATIVE [facility] Comment on above: Performed By: #### P REGU, ERUR #### [facility] [address] [address] [address] Dee Humphrey pH (U) 5.5 [pH] Normal 5-9 [facility] Comment on above: Performed By: #### P REGU, ERUR #### [facility] [address] [place] [address] Dr. Dee Humphrey SPEC GRAVITY >=1.030 Abnormal 1.005-<=1.02 5 [facility] Comment on above: Performed By: #### P REGU, ERUR #### [facility] [address] [place] [address] Dr. Dee Humphrey UA PROTEIN Negative Normal NEGATIVE/ TRACE [facility] Comment on above: Performed By: #### P REGU, ERUR #### [facility] [address] [place] [address] Dr. Dee Humphrey UR MICRO IND NOT INDICATED Normal [facility] Comment on above: Performed By: #### P REGU, ERUR #### [facility] [address] [place] [address] Dr. Dee Humphrey Urobilinogen Qn (U) 0.2 {Blanca'U}/dL Normal 0.2 - 1. 0 [facility] Comment on above: Performed By: #### P REGU, ERUR #### [facility] [address] [place] [address] Dr. Dee Humphrey LIPASEon 04-27-2022 Lipase [Catalytic activity/Vol] 94.0 U/L Normal 73.0-393.0 [facility] Comment on above: Performed By: #### L IPA, CMP #### [facility] [address] [place] [address] Dr. Dee Humphrey URon 04-27-2022 , QUAL Negative Normal NEGATIVE [facility] Comment on above: Performed By: #### P REGU, ERUR #### [facility] [address] [place] [address] Dr. Dee Humphrey PROF 14(COMP METB)on 022 Albumin [Mass/Vol] 3.9 g/dL Normal 3.4-5.0 [facility] Comment on above: Performed By: #### L IPA, CMP #### [facility] [address] [place] [address] Dr. Dee Humphrey Albumin/Globulin [Mass ratio] 1.0 {ratio} Normal [facility] Comment on above: Performed By: #### L IPA, CMP #### [facility] [address] [address] [address] Dee Humphrey ALP [Catalytic activity/Vol] 87 U/L Normal 46-116 [facility] Comment on above: Performed By: #### L IPA, CMP #### [facility] [address] [address] [address] Dee Humphrey ALT [Catalytic activity/Vol] 31 U/L Normal 14-59 [facility] Comment on above: Performed By: #### L IPA, CMP #### [facility] [address] [address] [address] Dee Humphrey Anion gap [Moles/Vol] 10.8 mmol/L Normal [facility] Comment on above: Performed By: #### L IPA, CMP #### [facility] [address] [place] [address] Dr. Dee Humphrey AST [Catalytic activity/Vol] 17 U/L Normal 15-37 [facility] Comment on above: Performed By: #### L IPA, CMP #### [facility] [address] [address] [address] Dee Humphrey Bilirubin [Mass/Vol] 0.1 mg/dL Critically low 0.2-1.0 [facility] Comment on above: Performed By: #### L IPA, CMP #### [facility] [address] [place] [address] Dr. Dee Humphrey Calcium [Mass/Vol] 8.9 mg/dL Normal 8.5-10.1 [facility] Comment on above: Performed By: #### L IPA, CMP #### [facility] [address] [place] [address] Dr. Dee Humphrey Chloride [Moles/Vol] 103 mmol/L Normal 98-107 [facility] Comment on above: Performed By: #### L IPA, CMP #### [facility] [address] [address] [address] Dee Humphrey CO2 [Moles/Vol] 26.9 mmol/L Normal 21.0-32.[address] [facility] Comment on above: Performed By: #### L IPA, CMP #### [facility] [address] [place] [address] Dr. Dee Humphrey Creatinine [Mass/Vol] 0.80 mg/dL Normal 0.55-1.02 [facility] Comment on above: Performed By: #### L IPA, CMP #### [facility] [address] [place] [address] Dr. Dee Humphrey EGFR-AF MOSOTHO >60 Normal >=60 [facility] Comment on above: Performed By: #### L IPA, CMP #### [facility] [address] [address] [address] Dee Humphrey EGFR-NON AF [place] >60 Normal >=60 [facility] Comment on above: Performed By: #### L IPA, CMP #### [facility] [address] [place] [address] Dr. Dee Humphrey Globulin (S) [Mass/Vol] 3.9 g/dL Normal [facility] Comment on above: Performed By: #### L IPA, CMP #### [facility] [address] [place] [address] Dr. Dee Humphrey Glucose [Mass/Vol] 96 mg/dL Normal 74-106 [facility] Comment on above: Performed By: #### L IPA, CMP #### [facility] [address] [place] [address] Dr. Dee Humphrey Potassium [Moles/Vol] 3.7 mmol/L Normal 3.5-5.1 [facility] Comment on above: Performed By: #### L IPA, CMP #### [facility] [address] [place] [address] Dr. Dee Humphrey Protein [Mass/Vol] 7.8 g/dL Normal 6.4-8.2 [facility] Comment on above: Performed By: #### L IPA, CMP #### [facility] [address] [place] [address] Dr. Dee Humphrey Sodium [Moles/Vol] 137 mmol/L Normal 136-145 [facility] Comment on above: Performed By: #### L IPA, CMP #### [facility] [address] [place] [address] Dr. Dee Humphrey Urea nitrogen [Mass/Vol] 13.0 mg/dL Normal 7.0-18.0 [facility] Comment on above: Performed By: #### L IPA, CMP #### [facility] [address] [place] [address] Dr. Dee Humphrey Urea nitrogen/Creatinine [Mass ratio] 16.2 mg/mg Normal [facility] Comment on above: Performed By: #### L IPA, CMP #### [facility] [address] [place] [address] Dr. Dee Humphrey CBC AUTO DIFFon 03-07-2022 BASO # 0.0 103/ul Normal 0.0-0.1 [facility] Comment on above: Performed By: #### C BC #### [facility] [address] [place] [address] Dr. Dee Humphrey Basophils/100 WBC (Bld) 0.3 % Normal 0.2-2.0 [facility] Comment on above: Performed By: #### C BC #### [facility] [address] [place] [address] Dr. Dee Humphrey EO # 0.1 103/ul Normal 0.0-0.7 [facility] Comment on above: Performed By: #### C BC #### [facility] [address] [place] [address] Dr. Dee Humphrey Eosinophils/100 WBC (Bld) 0.7 % Critically low 0.9-7.0 [facility] Comment on above: Performed By: #### C BC #### [facility] [address] [place] [address] Dr. Dee Humphrey Erythrocyte distribution width (RBC) [Ratio] 13.0 % Normal 11.0-15.0 [facility] Comment on above: Performed By: #### C BC #### [facility] [address] [place] [address] Dr. Dee Humphrey Hematocrit (Bld) [Volume fraction] 39.2 % Normal 36.0-48.0 [facility] Comment on above: Performed By: #### C BC #### [facility] [address] [place] [address] Dr. Dee Humphrey Hemoglobin (Bld) [Mass/Vol] 13.2 g/dL Normal 12.0-16.0 [facility] Comment on above: Performed By: #### C BC #### [facility] [address] [place] [address] Dr. Dee Humphrey IG # 0.05 10e3/ul Critically high 0.00-0.03 [facility] Comment on above: Performed By: #### C BC #### [facility] [address] [place] [address] Dr. Dee Humphrey IG % 0.5 % Normal 0.0-0.5 [facility] Comment on above: Performed By: #### C BC #### [facility] [address] [place] [address] Dr. Dee Humphrey LYMPH # 4.2 103/ul Critically high 1.2-3.8 [facility] Comment on above: Performed By: #### C BC #### [facility] [address] [place] [address] Dr. Dee Humphrey Lymphocytes/100 WBC (Bld) 43.1 % Normal 20.5-60.0 [facility] Comment on above: Performed By: #### C BC #### [facility] [address] [place] [address] Dr. Dee Humphrey MANUAL DIFF REQ NO Normal [facility] Comment on above: Performed By: #### C BC #### [facility] [address] [place] [address] Dr. Dee Humphrey MCH (RBC) [Entitic mass] 30.5 pg Normal 26.7-34.0 [facility] Comment on above: Performed By: #### C BC #### [facility] [address] [place] [address] Dr. Dee Humphrey MCHC (RBC) [Mass/Vol] 33.7 g/dL Normal 29.9-35.2 [facility] Comment on above: Performed By: #### C BC #### [facility] [address] [place] [address] Dr. Dee Humphrey MCV (RBC) [Entitic vol] 90.5 fL Normal 81.0-99.0 [facility] Comment on above: Performed By: #### C BC #### [facility] [address] [place] [address] Dr. Dee Humphrey MONO # 0.4 103/ul Normal 0.3-0.8 [facility] Comment on above: Performed By: #### C BC #### [facility] [address] [place] [address] Dr. Dee Humphrey Monocytes/100 WBC (Bld) 4.4 % Normal 1.7-12.0 [facility] Comment on above: Performed By: #### C BC #### [facility] [address] [place] [address] Dr. Dee Humphrey NEUT # 4.9 103/ul Normal 1.4-6.5 [facility] Comment on above: Performed By: #### C BC #### [facility] [address] [place] [address] Dr. Dee Humphrey Neutrophils/100 WBC (Bld) 51.0 % Normal 43.0-75.0 [facility] Comment on above: Performed By: #### C BC #### [facility] [address] [place] [address] Dr. Dee Humphrey Platelet mean volume (Bld) [Entitic vol] 9.6 fL Normal 9.5-13.5 [facility] Comment on above: Performed By: #### C BC #### [facility] [address] [place] [address] Dr. Dee Humphrey PLT 364 103/ul Normal 150-450 [facility] Comment on above: Performed By: #### C BC #### [facility] [address] [place] [address] Dr. Dee Humphrey RBC 4.33 106/ul Normal 4.20-5.40 [facility] Comment on above: Performed By: #### C BC #### [facility] [address] [place] [address] Dr. Dee Humphrey WBC 9.7 103/ul Normal 4.0-11.0 [facility] Comment on above: Performed By: #### C BC #### [facility] [address] [place] [address] Dr. Dee Humphrey LACTATE/LACTIC ACIDon 2021 Lactate [Moles/Vol] 1.1 mmol/L Normal 0.4-1.9 [facility] Comment on above: Performed By: #### P REGU, ERUR #### [facility] [address] [place] [address] Dr. Dee Humphrey LIPASEon 03-07-2022 Lipase [Catalytic activity/Vol] 79.0 U/L Normal 73.0-393.0 [facility] Comment on above: Performed By: #### C MP, LIPA #### [facility] [address] [place] [address] Dr. Dee Humphrey PROF 14(COMP METB)on 022 Albumin [Mass/Vol] 3.8 g/dL Normal 3.4-5.0 [facility] Comment on above: Performed By: #### C MP, LIPA #### [facility] [address] [place] [address] Dr. Dee Humphrey Albumin/Globulin [Mass ratio] 0.9 {ratio} Normal [facility] Comment on above: Performed By: #### C MP, LIPA #### [facility] [address] [place] [address] Dr. Dee Humphrey ALP [Catalytic activity/Vol] 80 U/L Normal 46-116 [facility] Comment on above: Performed By: #### C MP, LIPA #### [facility] [address] [place] [address] Dr. Dee Humphrey ALT [Catalytic activity/Vol] 27 U/L Normal 14-59 [facility] Comment on above: Performed By: #### C MP, LIPA #### [facility] [address] [place] [address] Dr. Dee Humphrey Anion gap [Moles/Vol] 9.5 mmol/L Normal [facility] Comment on above: Performed By: #### C MP, LIPA #### [facility] [address] [address] [address] Dee Humphrey AST [Catalytic activity/Vol] 13 U/L Critically low 15-37 [facility] Comment on above: Performed By: #### C MP, LIPA #### [facility] [address] [address] [address] Dee Humphrey Bilirubin [Mass/Vol] 0.1 mg/dL Critically low 0.2-1.0 [facility] Comment on above: Performed By: #### C MP, LIPA #### [facility] [address] [address] [address] Dee Humphrey Calcium [Mass/Vol] 9.0 mg/dL Normal 8.5-10.1 [facility] Comment on above: Performed By: #### C MP, LIPA #### [facility] [address] [place] [address] Dr. Dee Humphrey Chloride [Moles/Vol] 103 mmol/L Normal 98-107 [facility] Comment on above: Performed By: #### C MP, LIPA #### [facility] [address] [address] [address] Dee Humphrey CO2 [Moles/Vol] 27.1 mmol/L Normal 21.0-32.[address] [facility] Comment on above: Performed By: #### C MP, LIPA #### [facility] [address] [place] [address] Dr. Dee Humphrey Creatinine [Mass/Vol] 0.86 mg/dL Normal 0.55-1.02 [facility] Comment on above: Performed By: #### C MP, LIPA #### [facility] [address] [address] [address] Dee Humphrey EGFR-AF MOSOTHO >60 Normal >=60 [facility] Comment on above: Performed By: #### C MP, LIPA #### [facility] [address] [place] [address] Dr. Dee Humphrey EGFR-NON AF MOSOTHO >60 Normal >=60 [facility] Comment on above: Performed By: #### C MP, LIPA #### [facility] [address] [address] [address] Dee Humphrey Globulin (S) [Mass/Vol] 4.1 g/dL Normal [facility] Comment on above: Performed By: #### C MP, LIPA #### [facility] [address] [address] [address] Dee Humphrey Glucose [Mass/Vol] 99 mg/dL Normal 74-106 [facility] Comment on above: Performed By: #### C MP, LIPA #### [facility] [address] [place] [address] Dr. Dee Humphrey Potassium [Moles/Vol] 3.6 mmol/L Normal 3.5-5.1 [facility] Comment on above: Performed By: #### C MP, LIPA #### [facility] [address] [place] [address] Dr. Dee Humphrey Protein [Mass/Vol] 7.9 g/dL Normal 6.4-8.2 [facility] Comment on above: Performed By: #### C MP, LIPA #### [facility] [address] [place] [address] Dr. Dee Humphrey Sodium [Moles/Vol] 136 mmol/L Normal 136-145 [facility] Comment on above: Performed By: #### C MP, LIPA #### [facility] [address] [place] [address] Dr. Dee Humphrey Urea nitrogen [Mass/Vol] 12.0 mg/dL Normal 7.0-18.0 [facility] Comment on above: Performed By: #### C MP, LIPA #### [facility] [address] [place] [address] Dr. Dee Humphrey Urea nitrogen/Creatinine [Mass ratio] 14.0 mg/mg Normal [facility] Comment on above: Performed By: #### C MP, LIPA #### [facility] [address] [place] [address] Dr. Dee Humphrey Consent for COVID Vaccineon 08-09-2020 SARS-CoV-2 (COVID-19) RNA J LUIS+probe Ql (Unsp spec) [id number]:127 [facility] Consent for Treatmenton 07-30 Consent for Treatment [id number] .[id number]:127 [facility] Coding Summary.on 08-07-2020 Coding Summary. CODING DATE: 08/07/[address] [facility] STATUS: PAYOR: Luzma APC DESCRIPTION [...] Yana Paredes Date Saved: 08/07/2020 02:46 pm [facility] Ambulatory Clinical Summaryo n 03-25-2020 Ambulatory Clinical Summary {[id number]}CD:[id number] [facility] Patient Educationon 03-19-20 Patient [...] ? an antiviral such as ritonavir; ? Dewar's wort; or ? seizure medicine such as [...] (more content not included)... Normal [facility] Video Visit - Telehealtho n [...] interactive video communications from my office using [employer] due to the restrictions of the COVID-19 pandemic. No physical exam was conducted other than those areas of the body visible to telecommunications with the patient located at [address] [place] [phone], with no one else in attendance. If [...] (more content not included)... Normal [facility] Comment on above: Result Comment: [...] interactive video communications from my office using [employer] due to the restrictions of the COVID-19 pandemic. No physical exam was conducted other than those areas of the body visible to telecommunications with the patient located at [address] [place] [phone], with no one else in attendance. If [...] (more content not included)... Normal [facility] Comment on above: Result Comment: [...] interactive video communications from my office using [employer] due to the restrictions of the COVID-19 pandemic. No physical exam was conducted other than those areas of the body visible to telecommunications with the patient located at [address] [place] [address], with no one else in attendance. If [...] (more content not included)... Normal [facility] Comment on above: Result Comment: Elec tronically Signed By: Deepa [facility], Maia Peñaloza\Date and Time Signed: 02/11/20 14:37 EDT Video [...] interactive video communications from my office using [employer] due to the restrictions of the COVID-19 pandemic. No physical exam was conducted other than those areas of the body visible to telecommunications with the patient located at [address] [place], [place] [phone], with no one else in attendance. If [...] (more content not included)... Normal [facility] Comment on above: Result Comment: [...] interactive video communications from my office using [employer] due to the restrictions of the COVID-19 pandemic. No physical exam was conducted other than those areas of the body visible to telecommunications with the patient located at [address] [place] [address], with no one else in attendance. If [...] (more content not included)... Normal [facility] Comment on above: Result Comment: Elec tronically Signed By: Deepa [facility], Maia Montero.br\Date and Time Signed: 01/29/20 21:38 EDT Patient Educationon 01-28-20 20 Patient Education aripiprazole (AR i PIP ra zole) Say Lerma Discmarco What is the most [...] (more content not included)... Normal [facility] Video Visit - Telehealtho n [...] interactive video communications from my office using [employer] due to the restrictions of the COVID-19 pandemic. No physical exam was conducted other than those areas of the body visible to telecommunications with the patient located at [address] [place] [address] [phone], with no one else in attendance. If [...] (more content not included)... Normal [facility] Comment on above: Result Comment: Elec tronically Signed By: Deepa [facility], Maia Ashley\.br\Date and Time Signed: 01/13/20 09:40 EDT Patient Educationon 01-13-20 Patient Education aripiprazole (AR i KAREN welsh) Say Lerma Discmelt What is the [...] (more content not included)... Normal [facility] Video Visit - Telehealtho n [...] interactive video communications from my office using [employer] due to the restrictions of the COVID-19 pandemic. No physical exam was conducted other than those areas of the body visible to telecommunications with the patient located at [address] [place] [phone], with no one else in attendance. If [...] (more content not included)... Normal [facility] Comment on above: Result Comment: Elec tronically Signed By: [facility]i\Date and Time Signed: 01/07/20 12:38 EDT Video [...] interactive video communications from my office using [employer] due to the restrictions of the COVID-19 pandemic. No physical exam was conducted other than those areas of the body visible to telecommunications with the patient located at [address] [place] [address] [phone], with no one else in attendance. If [...] Father and (more content not included)... Normal [facility] Comment on above: Result Comment: [...] interactive video communications from my office using [employer] due to the restrictions of the COVID-19 pandemic. No physical exam was conducted other than those areas of the body visible to telecommunications with the patient located at [address] [place] [address], with no one else in attendance. If [...] (more content not included)... Normal [facility] Comment on above: Result Comment: Elec tronically Signed By: [facility]\Date and Time Signed: 12/23/19 16:54 EDT Patient Educationon 12-23-19 Patient Education aripiprazole (KEMAR i KAREN welsh) Say Lerma What is [...] (more content not included)... Normal [facility] Video Visit - Telehealtho n [...] interactive video communications from my office using [employer] due to the restrictions of the COVID-19 pandemic. No physical exam was conducted other than those areas of the body visible to telecommunications with the patient located at [address] [place], [place] [phone], with no one else in attendance. If [...] (more content not included)... Normal [facility] Comment on above: Result Comment: Elec tronically Signed By: Deepa [facility], Maia Montero.mati\Date and Time Signed: 12/04/19 09:42 [...] (more content not included)... Normal [facility] Vital Signs Date Time Vital Sign Value Performing Clinician Facility 07-18-2024 13:41-0400 Body mass index (BMI) [Ratio] 38.96 kg/m2 Liza ANTONIO Work Phone: [facility] 07-18-2024 13:41-0400 Body weight 96.62 kg Liza ANTONIO Work Phone: [facility] 07-18-2024 13:41-0400 Diastolic blood pressure 74 mm[Hg] Liza ANTONIO Work Phone: [facility] 07-18-2024 13:41-0400 Systolic blood pressure 110 mm[Hg] Liza ANTONIO Work Phone: [facility] 06-11-2024 15:17-0500 Body mass index (BMI) [Ratio] 40.42 kg/m2 Liza ANTONIO Work Phone: [facility] 06-11-2024 15:17-0500 Body weight 100.25 kg Liza ANTONIO Work Phone: [facility] 06-11-2024 15:17-0500 Diastolic blood pressure 72 mm[Hg] Liza ANTONIO Work Phone: [facility] 06-11-2024 15:17-0500 Systolic blood pressure 118 mm[Hg] Liza ANTONIO Work Phone: [facility] 05-29-2024 14:35-0500 Body mass index (BMI) [Ratio] 41.3 kg/m2 Johnathan Jorje DO Work Phone: [facility] 05-29-2024 14:35-0500 Body weight 102.42 kg Johnathan Jorje DO Work Phone: [facility] 05-29-2024 14:35-0500 Diastolic blood pressure 82 mm[Hg] Johnathan Jorje DO Work Phone: [facility] 05-29-2024 14:35-0500 Systolic blood pressure 118 mm[Hg] Johnathan Jorje DO Work Phone: [facility] 05-22-2024 14:57-0500 Body mass index (BMI) [Ratio] 41.3 kg/m2 Johnathan Jorje DO Work Phone: [facility] 05-22-2024 14:57-0500 Body weight 102.42 kg Johnathan Jorje DO Work Phone: [facility] 05-22-2024 14:57-0500 Diastolic blood pressure 80 mm[Hg] Johnathan Jorje DO Work Phone: [facility] 05-22-2024 14:57-0500 Systolic blood pressure 110 mm[Hg] Johnathan Jorje DO Work Phone: [facility] 05-13-2024 15:04-0500 Body mass index (BMI) [Ratio] 41.67 kg/m2 Liza ANTONIO Work Phone: [facility] 05-13-2024 15:04-0500 Body weight 103.33 kg Liza Oswego PA Work Phone: [facility] 05-13-2024 15:04-0500 Diastolic blood pressure 82 mm[Hg] Liza Kt PA Work Phone: [facility] 05-13-2024 15:04-0500 Systolic blood pressure 140 mm[Hg] Liza Oswego PA Work Phone: [facility] 04-03-2024 13:59-0500 Body mass index (BMI) [Ratio] 42.07 kg/m2 Johnathan Jorje DO Work Phone: [facility] 04-03-2024 13:59-0500 Body weight 104.33 kg Johnathan Jorje DO Work Phone: [facility] 04-03-2024 13:59-0500 Diastolic blood pressure 78 mm[Hg] Johnathan Jorje DO Work Phone: [facility] 04-03-2024 13:59-0500 Systolic blood pressure 110 mm[Hg] Johnathan Jorje DO Work Phone: [facility] 03-21-2024 14:01-0500 Body mass index (BMI) [Ratio] 41.7 kg/m2 Liza Kt PA Work Phone: [facility] 03-21-2024 14:01-0500 Body weight 103.42 kg Liza Oswego PA Work Phone: [facility] 03-21-2024 14:01-0500 Diastolic blood pressure 72 mm[Hg] Liza Oswego PA Work Phone: [facility] 03-21-2024 14:01-0500 Systolic blood pressure 112 mm[Hg] Liza Oswego PA Work Phone: [facility] 03-11-2024 14:26-0500 Body mass index (BMI) [Ratio] 41.96 kg/m2 Liza Oswego PA Work Phone: [facility] 03-11-2024 14:26-0500 Body weight 104.06 kg Liza Oswego PA Work Phone: [facility] 03-11-2024 14:26-0500 Diastolic blood pressure 70 mm[Hg] Liza ANTONIO Work Phone: [facility] 03-11-2024 14:26-0500 Systolic blood pressure 120 mm[Hg] Liza ANTONIO Work Phone: [facility] 03-06-2024 11:20-0500 Body mass index (BMI) [Ratio] 41.34 kg/m2 Johnathan Jorje DO Work Phone: [facility] 03-06-2024 11:20-0500 Body weight 102.51 kg Johnathan Jorje DO Work Phone: [facility] 03-06-2024 11:20-0500 Diastolic blood pressure 68 mm[Hg] Johnathan Jorje DO Work Phone: [facility] 03-06-2024 11:20-0500 Systolic blood pressure 120 mm[Hg] Johnathan Jorje DO Work Phone: [facility] 02-21-2024 13:57-0400 Body mass index (BMI) [Ratio] 41.3 kg/m2 Johnathan Jorje DO Work Phone: [facility] 02-21-2024 13:57-0400 Body weight 102.42 kg Johnathan Jorje DO Work Phone: [facility] 02-21-2024 13:57-0400 Diastolic blood pressure 70 mm[Hg] Johnathan Jorje DO Work Phone: [facility] 02-21-2024 13:57-0400 Systolic blood pressure 100 mm[Hg] Johnathan Jorje DO Work Phone: [facility] 02-15-2024 13:03-0400 Body height 160 cm Malena Cardona MD Work Phone: [facility] 02-15-2024 13:03-0400 Body mass index (BMI) [Ratio] 39.65 kg/m2 Malena Cardona MD Work Phone: [facility] 02-15-2024 13:03-0400 Body weight 101.52 kg Malena Cardona MD Work Phone: [facility] 02-15-2024 13:03-0400 Diastolic blood pressure 74 mm[Hg] Malena Cardona MD Work Phone: [facility] 02-15-2024 13:03-0400 Heart rate 94 /min Malena Cardona MD Work Phone: [facility] 02-15-2024 13:03-0400 Systolic blood pressure 123 mm[Hg] Malena Cardona MD Work Phone: [facility] 01-24-2024 11:57-0400 Body mass index (BMI) [Ratio] 41.15 kg/m2 Johnathan Jorje DO Work Phone: [facility] 01-24-2024 11:57-0400 Body weight 102.06 kg Johnathan Jorje DO Work Phone: [facility] 01-24-2024 11:57-0400 Diastolic blood pressure 78 mm[Hg] Johnathan Jorje DO Work Phone: [facility] 01-24-2024 11:57-0400 Systolic blood pressure 124 mm[Hg] Johnathan Jorje DO Work Phone: [facility] 01-03-2024 15:02-0400 Body mass index (BMI) [Ratio] 42.07 kg/m2 Liza ANTONIO Work Phone: [facility] 01-03-2024 15:02-0400 Body weight 104.33 kg Liza ANTONIO Work Phone: [facility] 01-03-2024 15:02-0400 Diastolic blood pressure 74 mm[Hg] Liza ANTONIO Work Phone: [facility] 01-03-2024 15:02-0400 Systolic blood pressure 122 mm[Hg] Liza ANTONIO Work Phone: [facility] 12-25-2023 11:22-0400 Body mass index (BMI) [Ratio] 40.79 kg/m2 Johnathan Jorje DO Work Phone: [facility] 12-25-2023 11:22-0400 Body weight 101.15 kg Johnathan Jorje DO Work Phone: [facility] 12-25-2023 11:22-0400 Diastolic blood pressure 76 mm[Hg] Johnathan Jorje DO Work Phone: [facility] 12-25-2023 11:22-0400 Systolic blood pressure 122 mm[Hg] Johnathan Jorje DO Work Phone: [facility] 08-18-2023 14:24-0400 Body height 160.02 cm [facility] 08-18-2023 14:24-0400 Body mass index (BMI) [Ratio] 40.2 kg/m2 [facility] 08-18-2023 14:24-0400 Body temperature 98.4 [degF] [facility] 08-18-2023 14:24-0400 Body weight 103.02 kg [facility] 08-18-2023 14:24-0400 Diastolic blood pressure 81 mm[Hg] [facility] 08-18-2023 14:24-0400 Heart rate 101 /min [facility] 08-18-2023 14:24-0400 Respiratory rate 16 /min [facility] 08-18-2023 14:24-0400 SaO2% (BldA) [Mass fraction] 98 % [facility] 08-18-2023 14:24-0400 Systolic blood pressure 133 mm[Hg] [facility] 04-27-2023 16:30-0500 Body height 160.02 cm Sanaz Lockwood Other [email or web address] [facility] [employer] Other 04-27-2023 16:30-0500 Body mass index (BMI) [Ratio] 40.92 kg/m2 Sanaz Lockwood Other [employer] Other 04-27-2023 16:30-0500 Body temperature 98.2 [degF] Sanaz Lockwood Other [employer] Other 04-27-2023 16:30-0500 Body weight 104.78 kg Sanaz Lockwood Other [employer] Other 04-27-2023 16:30-0500 Respiratory rate 18 /min Sanaz Fabián Other [employer] Other 04-27-2023 16:30-0500 SaO2% (BldA) [Mass fraction] 99 % Sanaz Fabián Other [employer] Other 05-10-2022 14:45-0500 Body height 160.02 cm Kaylah Lottault Other [employer] Other 05-10-2022 14:45-0500 Body mass index (BMI) [Ratio] 38.97 kg/m2 Kaylah Lottault Other [employer] Other 05-10-2022 14:45-0500 Body temperature 99.3 [degF] Kaylah Lottault Other [employer] Other 05-10-2022 14:45-0500 Body weight 99.79 kg Kaylah Lottault Other [employer] Other 06-29-2019 22:40-0500 Pulse (Heart Rate) 84 /min [facility] 06-29-2019 22:40-0500 Pulse Oximetry 97 % [facility] 06-29-2019 22:35-0500 BP Diastolic 56 mm[Hg] [facility] 06-29-2019 22:35-0500 BP Systolic 100 mm[Hg] [facility] 06-29-2019 21:11-0500 BMI (Body Mass Index) 33.1 kg/m2 [facility] 06-29-2019 21:11-0500 Body Temperature 97.8 [degF] [facility] 06-29-2019 21:11-0500 Body weight 84.8 kg [facility] 06-29-2019 21:11-0500 Height 160.02 cm [facility] 06-29-2019 21:11-0500 Respiratory Rate 20 /min [facility] Encounters Encounter Date Encounter Type Care Provider Facility Start: 07-18-2024 End: 07-18-2024 ambulatory LIZA DUQUE Not Available Start: 07-18-2024 End: 07-18-2024 care visit Liza ANTONIO Work Phone: [facility] Comment on above: 6 weeks f ollow-up Start: 06-11-2024 End: 06-11-2024 ambulatory LIZA DUQUE Not Available Start: 06-11-2024 End: 06-11-2024 Postop follow up visit related to original px Liza ANTONIO Work Phone: [facility] Comment on above: Postoperative visit; S/P section Start: 06-11-2024 End: 06-11-2024 Bamboo flowsheet Liza ANTONIO Work Phone: [facility] Start: 06-11-2024 End: 06-11-2024 Bamboo flowsheet Liza ANTONIO Work Phone: [facility] Start: 06-05-2024 End: 06-05-2024 Clinisync Result Encounter Johnathan Jorje DO Work Phone: [facility] Unsolicited Start: 06-05-2024 End: 06-05-2024 Clinisync Result Encounter Johnathan Jorje DO Work Phone: [facility] Unsolic[facility] Start: 06-04-2024 End: 06-04-2024 Clinisync Result Encounter Johnathan Jorje DO Work Phone: [facility] Unsolicited Start: 06-04-2024 End: 06-04-2024 Clinisync Result Encounter Johnathan Jorje DO Work Phone: [facility] Unsolicited Start: 05-31-2024 End: 05-31-2024 Clinisync Result Encounter Liza ANTONIO Work Phone: [facility] Unsolicited Start: 05-31-2024 End: 05-31-2024 Clinisync Result Encounter Liza Corderooliver ANTONIO Work Phone: [facility] Unsolicited [...] flow sheet Johnathan Jorje DO Work Phone: [facility] Comment on above: Third trimester preg [place]; 35 weeks gestation of ; Gestational diabetes mellitus (GDM) in third trimester, gestational diabetes method of control unspecified Start: 05-22-2024 End: 05-22-2024 Bamboo flowsheet Johnathan Jorje DO Work Phone: [facility] Start: 05-22-2024 End: 05-22-2024 Bamboo flowsheet Johnathan Jorje DO Work Phone: [facility] Start: 05-13-2024 End: 05-13-2024 ambulatory LIZA DUQUE Not Available Start: 05-13-2024 End: 05-13-2024 Bamboo flowsheet Liza ANTONIO Work Phone: [facility] Start: 05-13-2024 End: 05-13-2024 Bamboo flowsheet Liza ANTONIO Work Phone: [facility] Start: 05-13-2024 End: 05-13-2024 flow sheet Liza ANTONIO Work Phone: [facility] Comment on above: 33 weeks [...] Start: 04-22-2024 End: 04-22-2024 ambulatory Johnathan Jorje Facility:[facility] Start: 04-03-2024 End: 04-03-2024 Bamboo flowsheet Johnathan Jorje DO Work Phone: [facility] Start: 04-03-2024 End: 04-06-2024 Bamboo flowsheet Johnathan Jorje DO Work Phone: [facility] Start: 04-03-2024 End: 04-06-2024 External Result Encounter Johnathan Jorje DO Work Phone: [facility] Unsolicited Start: 04-03-2024 End: 04-03-2024 flow sheet Johnathan Jorje DO Work Phone: [facility] Comment on above: 28 weeks gestation o f ; Third trimester ; Flank pain; Acute cystitis with hematuria; Urinary tract infection without hematuria, site unspecified Start: 04-03-2024 End: 04-03-2024 ambulatory JOHNATHAN JORJE Not Available Start: 03-21-2024 End: 03-21-2024 Clinisync Result Encounter Johnathan Jorje DO Work Phone: [facility] External Department Unsolicited Start: 03-21-2024 End: 03-21-2024 Clinisync Result Encounter Johnathan Jorje DO Work Phone: [facility]solic[facility] Start: 03-21-2024 End: 03-21-2024 ambulatory LIZA DUQUE Not Available Start: 03-21-2024 End: 03-21-2024 flow sheet Liza ANTONIO Work Phone: [facility] Comment on above: Second trimester pre gnancy; 26 weeks gestation of ; Elevated glucose tolerance test; Gestational diabetes mellitus (GDM), antepartum, gestational diabetes method of control unspecified Start: 03-14-2024 End: 03-14-2024 ambulatory JOHNATHAN R JORJE [facility] Start: 03-11-2024 End: 03-11-2024 Bamboo flowsheet Liza ANTONIO Work Phone: [facility] Start: 03-11-2024 End: 03-11-2024 Bamboo flowsheet Liza ANTONIO Work Phone: [facility] Start: 03-11-2024 End: 03-11-2024 ambulatory LIZA DUQUE Not Available Start: 03-11-2024 End: 03-11-2024 flow sheet Liza Duque PA Work Phone: [facility] Comment on above: 24 weeks gestation o f ; Second trimester ; Acute cystitis with hematuria Start: 03-06-2024 End: 03-06-2024 Clinisync Result Encounter Johnathan Jorje DO Work Phone: [facility] External Department Unsolicited Start: 03-06-2024 End: 03-06-2024 Clinisync Result Encounter Johnathan Jorje DO Work Phone: [facility] External Department Unsolicited Start: 03-06-2024 End: 03-06-2024 ambulatory JOHNATHAN JORJE Not Available Start: 03-06-2024 End: 03-06-2024 flow sheet Johnathan Jorje DO Work Phone: [facility] Comment on above: 24 weeks gestation o f ; Second trimester ; Flank pain; Acute cystitis with hematuria Start: 02-26-2024 End: 02-26-2024 ambulatory [facility] Start: 02-21-2024 End: 02-21-2024 Bamboo flowsheet Johnathan Jorje DO Work Phone: [facility] Start: 02-21-2024 End: 02-21-2024 Bamboo flowsheet Johnathan Jorje DO Work Phone: [facility] Start: 02-21-2024 End: 02-21-2024 ambulatory JOHNATHAN JORJE Not Available Start: 02-21-2024 End: 02-21-2024 flow sheet Johnathan Jorje DO Work Phone: [facility] Comment on above: 22 weeks gestation o f ; Second trimester ; Diabetes mellitus screening Start: 02-15-2024 End: 02-15-2024 Office consultation new/estab patient 60 min Malena Cardona MD Work Phone: [facility] Comment on above: 21 weeks gestation o f (Primary Dx); Multigravida of advanced maternal age in second trimester; Pyelonephritis affecting in second trimester; Bipolar disease during in second trimester ([facility]); Obesity affecting in second trimester, unspecified obesity type; BMI 39.0-39.9,adult; History of section complicating ; Vapes nicotine containing substance; Current 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 Start: 02-09-2024 End: 02-09-2024 Evaluation and management of inpatient TEJ ZENG [facility] Start: 02-08-2024 End: 02-09-2024 Evaluation and management of inpatient NATO Hung LLOYD [facility] Start: 01-25-2024 End: 01-25-2024 Chart abstracting Malena Cardona MD Work Phone: [facility] Start: 01-24-2024 End: 01-24-2024 Bamboo flowsheet Johnathan [...] encounter procedure Johnathan Jorje DO Work Phone: [facility] Start: 01-24-2024 End: 01-24-2024 Periodic preventive med est patient 18-39 yrs Johnathan Jorje DO Work Phone: [facility] Comment on above: 18 weeks gestation o f ; Well woman exam with routine gynecological exam; Screening, , for anatomic survey; Exposure to STD; Vaginal discharge Start: 01-03-2024 End: 01-03-2024 flow sheet Liza Duque PA Work Phone: [facility] Comment on above: Rash; Second trimester Start: 01-03-2024 End: 01-03-2024 ambulatory LIZA DUQUE Not Available Start: 12-25-2023 End: 12-25-2023 Bamboo flowsheet Johnathan Jorje DO Work Phone: [facility] Start: 12-25-2023 End: 12-25-2023 Bamboo [...] Start: 08-18-2023 End: 08-18-2023 Patient encounter procedure [facility] Work Phone: Start: 04-27-2023 End: 04-27-2023 ambulatory Sanaz Lockwood Other [employer] Other Start: 04-27-2023 Office outpatient vi sit 25 minutes Sanaz Lockwood [facility] Start: 05-10-2022 End: 05-10-2022 ambulatory Kaylah Guille Other [facility] [employer] Other Start: 05-10-2022 Office outpatient ne w 20 minutes Kaylah Han [facility] Start: 04-27-2022 End: 04-27-2022 ambulatory KIMBERLYN XIE Facility:[facility] Start: 03-07-2022 End: 03-07-2022 ambulatory KIMBERLYN XIE Facility:[facility] Start: 09-23-[address] JAZIEL HILL Facility :[facility] Start: 06-29-2019 End: 06-29-2019 Emergency department patient visit Kimberlyn Xie [facility] Procedures Date Procedure Procedure Detail Performing Clinician Start: 06-05-2024 ALL CBC WITH AUTO DIFF Johnathan Jorje DO Work Phone: Start: 06-04-2024 ALL CBC WITH AUTO DIFF Johnathan Jorje DO Work Phone: Start: 05-31-2024 US OB BPP W NON-STRESS Liza ANTONIO Work [...] Work Phone: Start: 04-22-2024 [facility] UA (CLEAN/CATCH) 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 Johnathan Jorje DO Work Phone: [...] Work Phone: Start: 03-06-2024 [facility] UA (CLEAN/CATCH) 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 Johnathan Jorje DO Work Phone: Start: 03-06-2024 Urnls dip stick/tablet rgnt non-auto w/o micrscp Johnathan Riverao DO Work Phone: Start: 02-21-2024 Urnls dip stick/tablet rgnt non-auto w/o micrscp Johnathan Jorje DO Work Phone: Start: 02-15-2024 H/O: section History of section complicating Malena Cardona MD Work Phone: Start: 01-24-2024 URETHRITIS/DISCHARGE PLUS VAGINITIS (HTRX) Johnathan Riverao DO Work Phone: Start: 01-24-2024 AFP, SERUM, OPEN SPINA BIFIDA Johnathan Riverao DO Work Phone: Start: 01-24-2024 Urnls dip stick/tablet rgnt non-auto w/o micrscp Johnathan Jorje DO Work Phone: Start: 01-24-2024 Microscopic observation [Identifier] in Cervix by Cyto stain Johnathan Recinos DO Work Phone: Start: 01-03-2024 Urnls dip stick/tablet rgnt non-auto w/o micrscp Liza ANTONIO Work Phone: Start: 08-18-2023 Quick Strep (POC) H/O: section S/P sectio n Liza ANTONIO Work Phone: Plan of Treatment Date Care Activity Detail Author Start: 01-23-2027 Screening for malign ant neoplasm of cervix [facility] Start: 02-14-2025 Adult BMI Screening Adult BMI Screen ing [facility] Start: 02-14-2025 Tobacco Screening Tobacco Screening [facility] Start: 02-14-2025 End: 02-14-2025 US MFM with or without consult US MFM with or without consult Imaging Routine 21 weeks gestation of Obesity affecting in second trimester, unspecified obesity type Expected: 02/14/2025 (Approximate), Expires: 02/14/2025 [facility] Work Phone: Comment on above: Expected: 02/14/2025 (Approximate), Expires: 02/14/2025 Start: 06-11-2024 End: 06-11-2024 Patient encounter procedure 06/11/2024 2:40 PM EST Office Visit [facility] [address] [place] [address] Liza Duque PA [address] [place], [place] [id number] [facility] Start: 05-29-2024 End: 05-29-2024 Patient encounter procedure 05/29/2024 2:20 PM EST Routine [facility] [address] [facility] [place] [address] Johnathan Recinos DO [address] [place] [address] [facility] Start: 05-29-2024 End: 05-29-2025 CULTURE, GROUP B STREP WITH SUSCEPTIBLITY CULTURE, GROUP B STREP WITH SUSCEPTIBLITY Lab Routine Third trimester Expected: 05/29/2024, Expires: 05/29/2025 [facility] Work Phone: Comment on above: Expected: 05/29/2024 , Expires: 05/29/2025 Start: 05-22-2024 End: 05-22-2024 Patient encounter procedure 05/22/2024 2:20 PM EST Routine [facility] [address] [facility] [facility] [place] [id number] Johnathan Recinos, DO [address] [place], [place] [id number] [facility] Start: 05-13-2024 End: 05-13-2025 [...] Procedure [facility] [address] [place] [phone] [facility] Start: 04-03-2024 End: 04-03-2024 Patient encounter procedure [facility] Comment on above: Arrived Start: 04-03-2024 End: 04-03-2024 Professional / ancillary services management 04/03/2024 1:00 PM EST Ancillary Procedure [facility] [address] [place] [phone] [facility] Start: 03-21-2024 End: 03-21-2025 [...] control unspecified Expected: 03/21/2024 (Approximate), Expires: 03/21/2025 [facility] Comment on above: Expected: 03/21/2024 (Approximate), Expires: 03/21/2025 Start: 03-21-2024 End: 03-21-2024 Patient encounter procedure 03/21/2024 1:30 PM EST Routine [facility] [address] [place] [phone] Liza Duque PA [address] [place] [address] [facility] Start: 03-14-2024 End: 03-14-2024 Patient encounter procedure 03/14/2024 9:45 AM EST Appointment [facility] [address] [place] [phone] [facility] Start: 02-22-2024 End: 02-22-2024 Patient encounter procedure 02/22/2024 10:15 AM EDT Appointment [facility] [address] [place] [phone] [facility] Start: 02-21-2024 End: 02-20-2025 CBC panel - [...] PM EDT Routine [facility] [address] [place] [phone] Johnathan Recinos, DO [address] [place] [address] [facility] Start: 02-12-2024 End: 02-12-2024 Patient encounter procedure [facility] Start: 01-24-2024 End: 02-23-2024 Alpha fetoprotein, maternal Alpha fetoprotein, maternal Lab Routine 18 weeks gestation of Expected: 01/24/2024 (Approximate), Expires: 02/23/2024 [facility] Comment on above: Expected: 01/24/2024 (Approximate), Expires: 02/23/2024 Start: 01-22-2024 End: 01-22-2024 Patient encounter procedure 01/22/2024 10:20 AM EDT Routine [facility] [address] [facility] [phone] Johnathan Recinos, DO [address] [place] [address] [facility] Start: 12-31-2023 COVID-19 Vaccine ( season) COVID-19 Vaccine ( season) [facility] Start: 12-31-2023 Influenza vaccination [facility] Start: 10-11-2021 DTaP,Tdap and Td Vaccines (2 - Td or Tdap) DTaP,Tdap and Td Vaccines (2 - Td or Tdap) [facility] Start: 2017 Screening for malign ant neoplasm of cervix [facility] Start: 2008 Screening for malign ant neoplasm of cervix Pap Smear [facility] Start: 2005 Adult BMI Follow Up Plan Adult BMI Follow Up Plan [facility] Start: 2005 Adult BMI Screening Adult BMI Screen ing [facility] Start: 1999 Depression Screening Depression Scre ening [facility] Start: 1999 Tobacco Screening Tobacco Screening [facility] Bacteria identified in Urine by Culture Urine culture Microbiology Routine 24 weeks gestation of Second trimester Ordered: 03/06/2024 [facility] Work Phone: Comment on above: Ordered: 03/06/2024 Bacteria identified in Urine by Culture Urine culture Microbiology Routine Flank pain Acute cystitis with hematuria Urinary tract infection without hematuria, site unspecified Ordered: 04/03/2024 [facility] Work Phone: Comment on above: Ordered: 04/03/2024 CHLAMYDIA TRACHOMATI S (GENITO/STI) CHLAMYDIA TRACHOMATIS (GENITO/STI) Lab Routine Exposure to STD Ordered: 01/24/2024 [facility] Comment on above: Ordered: 01/24/2024 Cytology Cervical or vaginal smear or scraping study Pap Smear Pathology and Cytology Routine Well woman exam with routine gynecological exam Ordered: 01/24/2024 [facility] Comment on above: Ordered: 01/24/2024 Human papilloma viru s DNA [Presence] in Unspecified specimen by Probe with amplification HPV DNA probe, amplified Microbiology Routine Well woman exam with routine gynecological exam Ordered: 01/24/2024 [facility] Comment on above: Ordered: 01/24/2024 Neisseria gonorrhoea e DNA [Presence] in Unspecified specimen by J LUIS with probe detection Neisseria gonorrhea DNA probe, direct Lab Routine Exposure to STD Ordered: 01/24/2024 [facility] Comment on above: Ordered: 01/24/2024 Patient Education Epinephrine (B y injection) Anaphylaxis (ED) General Allergic Reaction (ED) [facility] Patient referral [facility] SURESWAB(R) ADVANCED VAGINITIS PLUS, TMA SURESWAB(R) ADVANCED VAGINITIS PLUS, TMA Pathology and Cytology Routine Vaginal discharge Ordered: 01/24/2024 [facility] Work Phone: Comment on above: Ordered: 01/24/2024 Immunizations Immunization Date Immunization Notes Care Provider Butch sims 06-02-2008 influenza virus vacc ine, unspecified formulation Johnathan Recinos DO Work Phone: [facility] Payers Date Payer Category Payer Self-pay [id number] 2024 Medicaid [id number] 2024 Medicaid [id number] 2023 Blue [employer] Blue [employer] BCBS [id number] 2023 Blue [place] [facility] P[facility] ANTHEM [id number] 2023 Unknown BCBS BCBS [id number] [id number] 2023-Present [phone] [address] [place] [address] [id number] 2015 Private Health Insurance [id number] 1987 Unknown [id number]. 593 1987 Unknown [id number] [id number]. 593 1987 Unknown [id number] [id number]. 593 1987 Unknown [id number] [id number]. 1286 1987 Unknown [id number] [id number]. 1286 1987 Unknown [id number] [id number]. 1286 1987 Unknown [id number] [id number]. 1286 1987 Unknown [id number] [id number]. 1286 1987 Unknown [id number] [id number]. 1286 1987 Unknown [id number] 2.16.840.1.485599.3.579.2. 1259 1987 Unknown [id number] 2.16.840.1.103149.3.579.2. 1259 1987 Unknown [id number] 2.16.840.1.546966.3.579.2. 1259 1987 Unknown [id number] 2.16.840.1.537022.3.579.2. 1258 1987 Unknown [id number] 2.16.840.1.055388.3.579.2. 1258 1987 Unknown [id number] 2.16.840.1.618046.3.579.2. 1258 1987 Unknown [id number] 2.16.840.1.343111.3.579.2. 1258 1987 Unknown [id number] 2.16.840.1.975958.3.579.2. 1258 1987 Unknown [id number] 2.16.840.1.856023.3.579.2. 1258 1987 Unknown [id number] 2.16.840.1.750338.3.579.2. 1258 1987 Unknown [id number] 2.16.840.1.500143.3.579.2. 1258 1987 Unknown [id number] 2.16.840.1.273900.3.579.2. 1258 1987 Unknown [id number] 2.16.840.1.798387.3.579.2. 1258 1987 Unknown [id number] 2.16.840.1.824664.3.579.2. 1258 1987 Unknown [id number] 2.16.840.1.070770.3.579.2. 9 1959 Self-pay [id number] 1959 Unknown [id number] Private Health Insurance [id number] Unknown [id number] 2.16.840.1.109992.3.579.2. 531 Social History Date Type Detail Facility Start: 06-29-2019 End: 08-18-2023 Tobacco smoking status [facility] Smoker (finding) [facility] Start: 1985 Sex Assigned At Female [facility] Start: 06-10-2020 End: 02-15-2024 Sex Assigned At [facility] Other Tobacco smoking stat [facility] Tobacco smoking consumption unknown [facility] Start: 10-03-2023 [facility] Start: 10-26-2023 Gender identity Identifies as female gender (finding) [facility] Start: 03-12-2019 End: 02-15-2024 Tobacco smoking status DEIS Ex-smoker [facility] [email or web address] [facility] Start: 03-12-2019 End: 02-15-2024 Tobacco use and exposure Smokeless tobacco non-user [facility] [email or web address] [facility] Start: 02-15-2024 Alcoholic beverage intake Lifetime non-drinker (finding) 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 [email or web address] [facility] Medical Equipment Procedure Code Equipment Code Equipment Original Text Equipment Identifier Dates 1 strip by In Vi tro route Daily Use in the morning prior to breakfast, 1 hour after each meal for a total of 4times daily. [id number] Start: 03-25-2024 End: 04-24-2024 1 each by In Vit ro route Daily Use to check FSBS four times daily [id number] Start: 03-25-2024 End: 04-24-2024 Inject 1 each un vickie the skin See administration instructions Use four times daily with insulin pen. [id number] Start: 05-13-2024 End: 06-12-2024 Use as instructed [id number] Start: 05-22-2024 Goals Date Patient Goal Desired Activity /State Personal health goal Comment on above: Formatting of this n ote might be different from the original. Evaluation of progress towards goal: go home today Clinical Notes 12-02-2019 to 07-18-2024 PACO Freed - 07/18/2024 1:30 PM PACO Hwang - 06/11/2024 2:40 PM GERMAINGayle Hendricks, SALES [employer]PPORT CENTER AGENT - 05/29/2024 2:20 PM Meghna Hendricks, [employer] AGENT - 05/22/2024 2:20 PM Meghna Hendricks, [employer] AGENT - 04/03/2024 1:40 PM EST Note Date & Type Note Facility 07-18-2024 History of Present illness Narrative Reason for Appointment: Patient ID: Mikaela Ruiz is a 39 y.o. female who presents for Care Patient presents today for Post Follow Up appointment. MEDICATIONS Current Outpatient Medications Medication Instructions Alcohol Swabs (Alcohol Prep Pad) 70 % pads 1 Pad, Topical, Daily, Use four times daily to check FSBS. aspirin 81 mg, Daily Blood Glucose Monitoring Suppl ([employer] Glucometer) w/Device kit 1 kit, Does not apply, Daily, Use four times daily to check FSBS. In the morning prior to breakfast & 1 hour after each meal for a total of 4times daily. insulin NPH (Isophane) (HUMULIN N,NOVOLIN N) 10 Units, Subcutaneous, 2 times daily before meals insulin regular (HUMULIN R,NOVOLIN R) 5 Units, [...] PROBLEMS Active Ambulatory Problems Diagnosis Date Noted Urinary tract infection without hematuria 04/18/2024 Flank pain 04/18/2024 Resolved Ambulatory Problems Diagnosis Date Noted Gestational diabetes mellitus (GDM) in third trimester 03/21/2024 28 weeks gestation of 04/03/2024 Third trimester 04/03/2024 33 weeks gestation of 05/13/2024 Elevated blood pressure complicating in third trimester, antepartum 05/13/2024 Past Medical History: Diagnosis Date Bipolar 1 [...] Surgical History: Procedure Laterality Date APPENDECTOMY SECTION, CLASSIC 06/04/2024 SECTION, LOW TRANSVERSE X 3 GALLBLADDER REVIEW [...] reviewed. Vitals: Estimated body mass index is 38.96 kg/m as calculated from the following: Height as of 03/18/22: 5' 2 . Weight as of this encounter: 213 lb. BP: 110/74 No LMP recorded. ASSESSMENT & PLAN ICD-10-CM 1. 6 weeks follow-up Z39.2 Post Follow Up: Patient is doing well. Patient presents today for 6 week visit. Patient is s/p delivery. Patient states depression but denies suicidal and homicidal ideations. All options were discussed with the patient regarding control and patient desires none at this time. Follow Up: Patient is to return for annual unless needed otherwise. Documented by PACO Freed on behalf of: PACO Freed documented in this encounter [facility] 06-11-2024 History of Present illness Narrative Reason for Appointment: Patient ID: Mikaela Ruiz is a 39 y.o. female who presents for Post-op Visit (Pt present today for 1 wk C/S post operative visit. Pt delivered on 06/04/2024.) Patient presents today for 1 Week Post Op Follow Up appointment. MEDICATIONS Current Outpatient Medications Medication Instructions [...] PROBLEMS Active Ambulatory Problems Diagnosis Date Noted Urinary tract infection without hematuria 04/18/2024 Flank pain 04/18/2024 Resolved Ambulatory Problems Diagnosis Date Noted Gestational diabetes mellitus (GDM) in third trimester 03/21/2024 28 weeks gestation of 04/03/2024 Third trimester 04/03/2024 33 weeks gestation of 05/13/2024 Elevated blood pressure complicating in third trimester, antepartum 05/13/2024 Past Medical History: Diagnosis Date Bipolar 1 disorder ([facility]/HCC) HISTORY PAST MEDICAL HISTORY SOCIAL HISTORY [...] Surgical History: Procedure Laterality Date APPENDECTOMY SECTION, CLASSIC SECTION, LOW TRANSVERSE X 3 GALLBLADDER REVIEW [...] breath sounds. Abdominal: Palpations: Abdomen is soft. Comments: Steristrips in place, incision healing well Musculoskeletal: General: Normal range of motion. Neurological: General: No focal deficit present. Mental Status: She is alert and oriented to person, place, and time. Psychiatric: Mood and Affect: Mood normal. Behavior: Behavior normal. Thought Content: Thought content normal. Judgment: Judgment normal. Vitals and nursing note reviewed. Vitals: Estimated body mass index is 40.42 kg/m as calculated from the following: Height as of 22: 5' 2 . Weight as of this encounter: 221 lb. BP: 118/72 No LMP recorded. ASSESSMENT & PLAN ICD-10-CM 1. Postoperative visit Z48.89 2. S/P section Z98.891 Patient presents today for a one week postop section check. Patient is doing well with minor complaints of pain. Incision has been noted as healing well with no signs and symptoms of infection. Pt denies post depression, declines any control and currently breast feeding. Follow Up: Patient is to return in 5 weeks for 6 week evaluation. Documented by Nettie Frazier MA on behalf of: PACO Freed documented in this encounter [facility] 05-29-2024 History of Present illness Narrative Reason [...] Medical History: Diagnosis Date Bipolar 1 disorder (CMS/[facility]) Social History Tobacco Use Smoking status: Not [...] nursing note reviewed. Exam conducted with a printing press machinist present. Vitals: Estimated body mass index is [...] Johnathan Recinos DO documented in this encounter [facility] 05-22-2024 History of Present illness Narrative Reason [...] Medical History: Diagnosis Date Bipolar 1 disorder ([facility]/HCC) HISTORY PAST MEDICAL HISTORY SOCIAL HISTORY Past Medical History: Diagnosis Date Bipolar 1 disorder ([facility]) Social History Tobacco Use Smoking status: Not [...] nursing note reviewed. Exam conducted with a printing press machinist present. Vitals: Estimated body mass index is [...] Johnathan Recinos DO documented in this encounter [facility] 05-13-2024 History of Present illness [...] nursing note reviewed. Exam conducted with a printing press machinist present. Vitals: Estimated body mass index is [...] Johnathan Recinos DO documented in this encounter [facility] 04-03-2024 History of Present illness [...] 81 mg, Daily Blood Glucose Monitoring Suppl ([employer] Glucometer) w/Device kit 1 kit, Does not [...] Medical History: Diagnosis Date Bipolar 1 disorder ([facility]) HISTORY PAST MEDICAL HISTORY SOCIAL HISTORY Past Medical History: Diagnosis Date Bipolar 1 disorder ([facility]) Social History Tobacco Use Smoking status: Not [...] nursing note reviewed. Exam conducted with a printing press machinist present. Vitals: Estimated body mass index is [...] Johnathan Recinos DO documented in this encounter [facility] 03-21-2024 History of Present illness [...] Medical History: Diagnosis Date Bipolar 1 disorder ([facility]) HISTORY PAST MEDICAL HISTORY SOCIAL HISTORY Past Medical History: Diagnosis Date Bipolar 1 disorder ([facility]) Social History Tobacco Use Smoking status: Not [...] hour glucose order to have done at [facility]. Patient DECLINES 3 hour gtt and would like to start testing FSBS--Patient will be referred to Diabetic Edu at [facility]. Follow Up: Patient is to return to office in 2 week for routine OB appointment. Documented by Nettie Frazier MA on behalf of: PACO Freed documented in this encounter [facility] 03-11-2024 History of Present illness [...] Medical History: Diagnosis Date Bipolar 1 disorder ([facility]) HISTORY PAST MEDICAL HISTORY SOCIAL HISTORY Past Medical History: Diagnosis Date Bipolar 1 disorder ([facility]) Social History Tobacco Use Smoking status: Not [...] nursing note reviewed. Exam conducted with a printing press machinist present. Vitals: Estimated body mass index is [...] of . Nursing will reach out to [facility] to inquire about culture results. Patient does have follow up appointment with Maternal Medicine. Patient to return to clinic in 4 weeks for routine OB appointment. Documented by Barbara Guillermo LPN on behalf of: PACO Freed documented in this encounter [facility] 03-06-2024 History of Present illness [...] nursing note reviewed. Exam conducted with a printing press machinist present. Vitals: Estimated body mass index is [...] Johnathan Recinos DO documented in this encounter [facility] 02-21-2024 History of Present illness [...] Medical History: Diagnosis Date Bipolar 1 disorder (CMS/[facility]) HISTORY PAST MEDICAL HISTORY SOCIAL HISTORY Past Medical History: Diagnosis Date Bipolar 1 disorder ([facility]) Social History Tobacco Use Smoking status: Not [...] nursing note reviewed. Exam conducted with a printing press machinist present. Vitals: Estimated body mass index is [...] Johnathan Recinos DO documented in this encounter [facility] 02-15-2024 History of Present illness [...] Medical History: Diagnosis Date Bipolar 1 disorder ([facility]) Depression PSHIST: Past Surgical History: Procedure Laterality [...] 4. Bipolar disease during in second trimester ([facility]) I reviewed with the patient that stability [...] of withdrawal and extrapyramidal effects on reviewed. Management Architect should be notified. Lack of controlled human [...] . For prevention of venous thromboembolism in gcve-[id number]-[id number] groups, pharmacologic thromboprophylaxis should be considered in [...] prevention Cervical length at 22 weeks at [facility] Follow up survey scheduled Serial growth assessments every 4 weeks after the anatomy scan can be done at OB office. ventricles should be measured at each US. If >=10 mm or concern for hydrocephalus refer to [facility]. If you would like [facility] to do the growth US please refer [...] Malena Cardona MD, FACOG (she/hers) Maternal- Medicine [facility] [address] [place] [address] This document was created with [employer] technology. Though I make every effort to review the dictation as it is transcribed, on occasion the spoken word can be misinterpreted by the technology leading to inappropriate words, phrases, or sentences. This note is addressed to the requesting provider as a consultation for clinical guidance. Specific medical abbreviations are occasionally used and those are generally approved by the [place]?Board of?Obstetrics and?Gynecology?as well as?Jeri s abbreviations. The above plan of care was based solely on the diagnoses for which a consultation was requested. ?More frequent testing may be indicated based on her other medical/obstetrical conditions. The management of other or medical conditions is beyond the scope of requested consultation and will continue to be followed by the primary customer support coordinator or primary care provider. Note to patient: [...] yes Have you been seen here at [facility] in a previous ? yes Recent ER visits or hospitalizations? 02/07 kidney and bladder infection Bring blood sugar log or meter with you today? (Please bring them with you for every visit at [facility]) na Flu vaccine (Mar-June)? na Any concerns that you would like me to mention to the provider today? no [facility] History of Present illness Narrative Reason [...] Medical History: Diagnosis Date Bipolar 1 disorder (CMS/[facility]) HISTORY PAST MEDICAL HISTORY SOCIAL HISTORY Past Medical History: Diagnosis Date Bipolar 1 disorder ([facility]) Social History Tobacco Use Smoking status: Not [...] 4 section, pt to be referred to [facility] for level II ultrasound. Pt to return [...] Johnathan Recinos DO documented in this encounter [facility] 01-03-2024 History of Present illness [...] Medical History: Diagnosis Date Bipolar 1 disorder ([facility]) HISTORY PAST MEDICAL HISTORY SOCIAL HISTORY Past Medical History: Diagnosis Date Bipolar 1 disorder ([facility]) Social History Tobacco Use Smoking status: Not [...] of: PACO Freed documented in this encounter [facility] 12-25-2023 History of Present illness [...] Medical History: Diagnosis Date Bipolar 1 disorder ([facility]/HCC) Social History Tobacco Use Smoking status: [...] nursing note reviewed. Exam conducted with a printing press machinist present. Vitals: Estimated body mass index is [...] or undercooked meat, and stay away from [facility]. Patient has been consulted regarding any further do's and don'ts of . Patient voiced understanding and all questions and concerns were answered. Patient complaints of nausea not helped by oral medications. [facility] Patient aware that [facility] will reach out to her to initiate therapy. Follow Up: Patient is to return in 4 weeks for routine OB appointment. Documented by Barbara Guillermo LPN on behalf of: Liza Duque PA-C documented in this encounter [facility] 04-27-2023 Evaluation note Encounter Date [...] condition. Mar, Sore throat (ICD-10 - J02.9) [facility] Other 01-10-2023 Evaluation note* Encounter Date Diagnosis [...] weeks for the cough to go away [facility] [facility] Other 11-07-2022 NoteIndication: Abdominal pain. Comparison: None [...] Electronically authenticated by: SURJIT FREITAS Date: 2022-03-07 20:49[facility] NoteHPI Staff This visit was conducted via phone communications from my office due to the restrictions of the COVID-19 pandemic. No physical exam was conducted due to audio only communication with the patient located at [address] [place] [phone], with no one else. If it is determined that the patientshould be evaluated in person, the patient will be directed to the appropriate clinic or venue. Thepatient or their guardian verbally consented to this visit. Phone time was 15 minutes discussing health issues with counseling and coordination of care. Subjective Interval History/HPI Patient presents today for follow up via telehealth phone from [facility]. Patient started Latuda 20mg last [...] anxiety, # 30 tab(s), Refills(s) 2, [id number], cm, 12/23/19 10:18:00 EDT, Height/Length Dosing, 82, kg, 12/23/19 10:18:00 EDT, Weight Dosing Orders: lurasidone, 20 mg = 1 tab(s), Oral, Daily, with 350 calories; begin this dose first then progress to next dose of 40mg, X 1 week(s), # 7 tab(s), Refills(s) 0, Pharmacy: [facility]/pharmacy #[id number], 161, cm, 12/23/19 10:18:00 EDT, Height/Length Dosing, 82, kg, 12/23/19 10:... lurasidone, 40 mg = 1 tab(s), Oral, Daily, with 350 calories, # 30 tab(s), Refills(s) 1, [id number] 161, cm, 12/23/19 10:18:00 EDT, [...] disorder) Hidr (more content not included)...[facility] Center[facility] above: Result Comment: Electronically Signed By: Carlota RODRIGUEZ CNP\.br\Date and Time Signed: 03/19/20 14:27 [id number] NoteI Staff This visit was conducted via two-way, real-time interactive video communications from my office using [employer] due to the restrictions of the COVID-19 pandemic. No physical exam was conducted other than those areas of the body visible to telecommunications with the patient located at [address] [place] [address], with no one else in attendance. If [...] Ordered: TELEHEALTH Office Visit Level 3 Est 46072 General Treatment Plan Maintain medication regimen _Improve [...] Home/Environment Sylvia (more content not included)...[facility] CenterComment on above: Result Comment: Electronically Signed By: Carlota RODRIGUEZ CNP\Date and Time Signed: 03/05/20 13:32 [id number] NoteI Staff This visit was conducted via two-way, real-time interactive video communications from my office using [employer] due to the restrictions of the COVID-19 pandemic. No physical exam was conducted other than those areas of the body visible to telecommunications with the patient located at [address] [place] [phone], with no one else in attendance. If [...] anxiety, # 30 tab(s), Refills(s) 1, [id number] 161, cm, 12/23/19 10:18:00 EDT, Height/Length Dosing, 82, kg, 12/23/19 10:18:00 EDT, Weight Dosing alprazolam, 0.5 mg = 1 tab(s), Oral, TID, PRN for anxiety, # 30 tab(s), Refills(s) 1, [id number] 161, cm, 12/23/19 10:18:00 EDT, Height/Length Dosing, 82, kg, 12/23/19 10:18:00 EDT, Weight Dosing aripiprazole, See Instructions, 1.5 tab po qAM, # 30 tab(s), Refills(s) 2, Pharmacy: [facility]/pharmacy #[id number], 161, cm, 12/23/19 10:18:00 EDT, Height/Length Dosing, 82, kg, 12/23/19 10:18:00 EDT, Weight Dosing aripiprazole, See Instructions, 1 tab po qAM, # 30 tab(s), Refills(s) 5, [id number], 161, cm, 12/23/19 10:18:00 EDT, Height/Length Dosing, 82, kg, 12/23/19 10:18:00 EDT, Weight Dosing cyclobenzaprine, 10 mg = 1 tab(s), Oral, TID, PRN for spasm, # 30 tab(s), Refills(s) 1, Pharmacy: [facility]/pharmacy #[id number], 161, cm, 06/13/19 14:39:00 EST, Height/Length Measured, 82, kg, 06/13/19 14:39:00EST, Weight Measured cyclobenzaprine, 10 mg = 1 tab(s), Oral, TID, PRN for spasm, # 30 tab(s), Refills(s) 1, Pharmacy: [facility]/pharmacy #[id number], 161, cm, 12/23/19 10:18:00 EDT, Height/Length Dosing, 82, kg, 12/23/19 10:18:00 EDT, Weight Dosing General Treatment Plan Maintain medication regimen _Improve mood stability _Improve anxiety control _Improve social and interpersonal functioning Clinical Global Impression 62 Prognosis progressing Follow-up With When Contact Information Carlota RODRIGUEZ CNP In 4 weeks Additional Instructions: (more content not included)...[facility] CenterComment on above:Result Comment: Electronically Signed By: Carlota RODRIGUEZ CNP\.br\Date and Time Signed: 01/27/20 22:35 [id number] NoteI Staff This visit was conducted via two-way, real-time interactive video communications from my office using [employer] due to the restrictions of the COVID-19 pandemic. No physical exam was conducted other than those areas of the body visible to telecommunications with the patient located at [address] [place] [address], with no one else in attendance. If [...] Ordered: TELEHEALTH Office Visit Level 3 Est 36327 General Treatment Plan Maintain medication regimen _Improve [...] Smokeless Tob (more content not included)...[facility] CenterComment on above:Result Comment: Electronically Signed By: Carlota RODRIGUEZ CNP\.br\Date and Time Signed: 01/13/20 09:11 [id number] NoteI Staff This visit was conducted via two-way, real-time interactive video communications from my office using [employer] due to the restrictions of the COVID-19 pandemic. No physical exam was conducted other than those areas of the body visible to telecommunications with the patient located at [address] [place] [address], with no one else in attendance. If [...] anxiety, # 30 tab(s), Refills(s) 1, [id number] 161, cm, 12/23/19 10:18:00 EDT, Height/Length Dosing, 82, kg, 12/23/19 10:18:00 EDT, Weight Dosing alprazolam, 0.5 mg = 1 tab(s), Oral, TID, PRN for anxiety, # 30 tab(s), Refills(s) 1, [id number] 161, cm, 06/13/19 14:39:00 EST, Height/Length Measured, 82, kg, 06/13/19 14:39:00 EST, Weight Measured aripiprazole, See Instructions, 1 tab po qAM, # 30 tab(s), Refills(s) 0, [id number], 161, cm, 12/23/19 10:18:00 EDT, [...] Social History (more content not included)...[facility] CenterComment on above:Result Comment: Electronically Signed By: Carlota RODRIGUEZ CNP\Date and Time Signed: 12/23/19 16:37 [id number] NoteHPI Staff This visit was conducted via two-way, real-time interactive video communications from my office using [employer] due to the restrictions of the COVID-19 pandemic. No physical exam was conducted other than those areas of the body visible to telecommunications with the patient located at [address] [place] [id number], with no one else in attendance. If [...] q24hr, # 30 tab(s), Refills(s) 2, Pharmacy: [facility]/pharmacy #[id number],161, cm, 06/13/19 14:39:00 EST, Height/Length Measured, 82, kg, 06/13/19 14:39:00 EST, Weight Measured cyclobenzaprine, 10 mg = 1 tab(s), Oral, TID, PRN for spasm, # 30 tab(s), Refills(s) 1, Pharmacy: [facility]/pharmacy #[id number], 161, cm, 06/13/19 14:39:00 EST, Height/Length [...] 03/18/2019 Home/Environment (more content not included)...[facility]:Result Comment: Electronically Signed By: Carlota RODRIGUEZ CNP\.br\Date and Time Signed: 12/02/19 16:38 EDTChief complaint+Reason for visit Narrative* Chief Complaint Nausea, diarrhea, fe zhou Reason for Visit Contact with and (guillen spected) exposure to covid-19 Sore throat [facility] Work Phone: Evaluation note* Diagnosis Onset Date Resolution Status Contact with and (suspected) exposure to covid-19 noneactive Sore throat noneactive [facility] Work Phone: Evaluation note* Diagnosis 22 weeks gestation of Second [...] cystitis with hematuria documented in this encounter [facility] HealthcareEvaluation note* Diagnosis Second trimester state, incidental 26 weeks gestation of Elevated glucose tolerance test Impaired glucose tolerance test Gestational diabetes mellitus (GDM), antepartum, gestational diabetes method of control unspecified documented in this encounter [facility] HealthcareEvaluation note* Diagnosis 28 weeks gestation of Third trimester state, incidental Flank pain Abdominal pain, unspecified site Acute cystitis with hematuria Urinary tract infection without hematuria, site unspecified documented in this encounter [facility] HealthcareEvaluation note* Diagnosis Second trimester state, incidental documented in this encounter [facility] HealthcareEvaluation note* Diagnosis Rash Rash and other nonspecific skin eruption Second trimester state, incidental documented in this encounter [facility] HealthcareEvaluation note* Diagnosis 18 weeks gestation of Well woman exam with routine gynecological exam Routine gynecological examination Screening, , for anatomic survey Encounter for anatomic survey Exposure to STD Vaginal discharge Leukorrhea, not specified as infective documented in this encounter [facility] HealthcareEvaluation note* Diagnosis 33 weeks gestation of Third trimester state, incidental Elevated blood pressure complicating in third trimester, antepartum Gestational diabetes mellitus (GDM) in third trimester, gestational diabetes method of control unspecified Insulin controlled gestational diabetes mellitus (GDM) during , antepartum documented in this encounter [facility] HealthcareEvaluation note* Diagnosis Third trimester state, incidental 35 weeks gestation of Gestational diabetes mellitus (GDM) in third trimester, gestational diabetes method of control unspecified documented in this encounter [facility] HealthcareEvaluation note* Diagnosis Third trimester state, incidental 36 weeks gestation of documented in this encounter [facility] HealthcareEvaluation note* Diagnosis Postoperative visit S/P section Other postprocedural status documented in this encounter [facility] HealthcareEvaluation note* Diagnosis 21 weeks gestation of - Primary Obesity affecting in second trimester, unspecified obesity type [facility]* Diagnosis 21 weeks gestation of - Primary Multigravida of advanced maternal age in second trimester Pyelonephritis affecting in second trimester Bipolar disease during in second trimester ([facility]) Obesity affecting in second trimester, unspecified obesity type BMI 39.0-39.9,adult History of section complicating Previous delivery, unspecified as to episode of care or not applicable Vapes nicotine containing substance Current rao with 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, antepartum History of delivery, currently with history of pre-term labor [facility]* Diagnosis 6 weeks follow-up documented [facility] this encounter [facility] Narrative - Reported* Type Description Date Medical History Bipolar Surgical History appendectomy Surgical History x 3 Hospitalization History see above surgical histo ry [facility] Other InstructionsNot on filedocumented in this encounter [facility] SystemInstructions* Attachments The following attachments cannot be sent through Care Everywhere. * Preeclampsia (Liberian) * Movement (Liberian) [facility] SystemInstructionsNot on file [facility] Advance Directives No Advanced Directives Records Found [...] may need to be seen by an statement clerk if you have other events like this without definite egg exposure. Summary Purpose Family History No Family History Records Found Relationship Condition Age at Onset Recorded Date/T alo father Diabetes mellitus Unknown Hypertension Unknown Additional Source Comments INFORMATION SOURCE (unrecogn ized section and content) DATE CREATED AUTHOR 10/30/2020 [facility] DATE CREATED AUTHOR AUTHOR'S ORGANIZ ATION 04/29/2022 [facility] DATE CREATED AUTHOR AUTHOR'S ORGANIZ ATION 03/16/2024 [facility] DATE CREATED AUTHOR AUTHOR'S ORGANIZ ATION 04/25/2024 [facility] DATE CREATED AUTHOR AUTHOR'S ORGANIZ ATION 07/20/[address] [facility] Special[facility] EPIC REASON FOR VISIT (unrecogniz ed section and content) Reason Comments Routine Visit Reason Comments Follow up UTI Reason Comments Gynecologic Exam Reason Comments Routine Visit Pt present today for rash Reason Comments Post-op Visit Pt present today for 1 wk C/S post operative visit. Pt delivered on 06/04/2024. Reason Comments AMA Reason Comments Care Care Teams (unrecognized sec tion and content) Team Status: Active Member Role Status Dates JAQUAN Hilton Primary Care Provider Active Team Status: Inactive Member Role Status Dates JAQUAN Hilton Primary Care Provider Active Start: August 18, 2023 End: August 18, 2023 Sanaz Lockwood APRN Attending Provider Active Start: August 18, 2023 End: August 18, 2023 Voice Instructor Relationship Specialty Start Date End Date No Pcp, [place] [address] PCP - General Family Medicine 03/12/19 Voice Instructor Relationship Specialty Start Date End Date No Pcp, [place] [address] PCP - General Family Medicine 03/12/19 Voice Instructor Relationship Specialty Start Date End Date No Pcp, [place] [address] PCP - General Family Medicine 03/12/19 Goals [...] BE BASED ON THE PRIMARY CLINICAL RECORDS. [employer] provides no warranty or guarantee of the accuracy or completeness of information in this document.
[2024-10-21] MEDS: 0.9 % SODIUM CHLORIDE 1,000 ML 125 ML IV (22:33)
[2024-10-22 02:14] VITALS: PULSE 81
[2024-10-22 04:00] VITALS: BP 96/51; PULSE 94; PULSE 96; TEMP 37.1; O2SAT 99
[2024-10-22 06:00] VITALS: PULSE 98
[2024-10-22 06:27] LABS: Hemoglobin 11.8 g/dL (12.0-16.0); Mean Corpuscular HGB Conc 32.8 g/dL (29.9-35.2); Mean Corpuscular Hemoglobin 30.6 pg (26.7-34.0); Mean Corpuscular Volume 93.5 fL (81.0-99.0); Mean Platelet Volume 10.8 fL (9.5-13.5); Platelet Count 251 10^3/uL (150-450); Red Blood Count 3.85 10^6/uL (4.20-5.40); Red Cell Distribution Width 13.8 % (11.0-15.0); White Blood Count 15.6 10^3/uL (4.0-11.0)
[2024-10-22] MEDS: 0.9 % SODIUM CHLORIDE 1,000 ML 125 ML IV (06:29)
[2024-10-22] MEDS: ACETAMINOPHEN 325 MG TABLET 650 MG PO (07:08)
[2024-10-22 07:25] LABS: Alanine Aminotransferase 72 U/L (14-59); Albumin Globulin Ratio 0.7; Albumin Level 2.7 g/dL (3.4-5.0); Alkaline Phosphatase 116 U/L (46-116); Anion Gap 14.2; Aspartate Amino Transferase 28 U/L (15-37); BUN Creatinine Ratio 11.5; Bilirubin Total 0.4 mg/dL (0.2-1.0); Carbon Dioxide 24.1 mmol/L (21.0-32.0); Chloride 106 mmol/L (98-107); Estimated GFR (African America >60 (>=60 mL/min/1.73m^2); Estimated GFR (Non-African Ame >60 (>=60 mL/min/1.73m^2); Globulin 4.1 g/dL; Glucose 112 mg/dL (74-106); Potassium 4.3 mmol/L (3.5-5.1); Sodium 140 mmol/L (136-145); Total Protein 6.8 g/dL (6.4-8.2)
--- NOTE | 2024-10-22 07:35 | PM.HP ---
HPI H&P: HPI History of Present Illness Chief complaint: UTI FEVER Narrative: Pt hiking in [place] - starting to have fatigue adn n/v - presented to ER here found t have left pyelonpehritis Opioid HPI Opioid Management Most Recent Pain and Opioid Data: Last Pain Scale 2 Today, 08:26 Last Pain Assessment 10/21/24, 23:00 Last ORT Total Score 4 10/21/24, 22:47 Last ORT Risk Category Moderate Risk 10/21/24, 22:47 Ur Phencyclidine Scrn, (NEGATIVE) Negative 10/21/24, 17:15 PFSH PFSH Medical History (Updated 10/21/24 @ 21:19 by Jose Modi MD) section wound complication ?O90.9 - Complication of the puerperium, unspecified (ICD-10) Bipolar affect, depressed ?F31.30 - Bipolar disorder, current episode depressed, mild or moderate severity, unspecified (ICD-10) Hyperemesis affecting , antepartum ?O21.0 - Mild hyperemesis gravidarum (ICD-10) Surgical History History of appendectomy ?Z90.49 - Acquired absence of other specified parts of digestive tract (ICD-10) History of cholecystectomy ?Z90.49 - Acquired absence of other specified parts of digestive tract (ICD-10) deliv NOS-unsp Family History (Updated 10/21/24 @ 23:42 by Myesha Hope) Father Family history of diabetes mellitus Family history of hypertension Social History (Updated 10/21/24 @ 23:46 by Myesha Hope) Smoking status: Never smoker Non-prescribed substance use: denies use Highest level of school completed/degree received: Associate degree: occupational, technical, vocational program Are you now , , , , never or living with a partner: Little interest or pleasure in doing things: not at all Feeling down, depressed, or hopeless: not at all Do you think of yourself as: straight/heterosexual Gender Identity: female Meds Home Medications and Allergies Home Medications ?Medication ?Instructions ?Recorded ?Confirmed ?Type lamotrigine 200 mg tablet 200 mg PO DAILY 03/07/24 10/21/24 History venlafaxine 37.5 mg 37.5 mg PO DAILY 03/07/24 10/21/24 History capsule,extended release 24 hr ibuprofen 800 mg tablet 800 mg PO Q8H PRN pain 14 days #40 06/06/24 10/21/24 Rx tabs lurasidone 60 mg tablet (Latuda) 60 mg PO DAILY 10/21/24 10/21/24 History cefdinir 300 mg capsule 600 mg (2 x 300 mg) PO DAILY #20 10/22/24 Rx caps phenazopyridine 200 mg tablet 200 mg PO Q8H 2 days #6 tabs 10/22/24 Rx (Pyridium) Allergies Allergy/AdvReac Type Severity Reaction Status Date / Time sulfamethoxazole (From Allergy Hives Verified 10/21/24 17:16 Bactrim) trimethoprim (From Bactrim) Allergy Hives Verified 10/21/24 17:16 Exam Constitutional Vital Signs, click to edit/add: Last Vital Signs Temp 98.7 F 10/22/24 04:00 Pulse 98 H 10/22/24 06:00 Resp 18 10/22/24 04:00 BP 96/51 10/22/24 04:00 Pulse Ox 99 10/22/24 04:00 O2 Del Method Room Air 10/22/24 04:00 Documenting provider has reviewed patient's vital signs: yes Common normals: no apparent distress Respiratory Common normals: normal respiratory effort and no retractions Cardio Common normals: regular rate and regular rhythm GI Common normals: Normal to inspection, nondistended, normoactive bowel sounds present Results Labs Labs: Short CBC 10/21/24 10/22/24 Range/Units 18:52 05:56 WBC 15.1 H 15.6 H (4.0-11.0) 10^3/uL Hgb 11.7 L 11.8 L (12.0-16.0) g/dL Hct 35.3 L 36.0 (36.0-48.0) % Plt Count 300 251 (150-450) 10^3/uL BMP 10/21/24 10/22/24 18:52 07:03 Sodium 139 140 Potassium 4.3 4.3 Chloride 101 106 Carbon Dioxide 25.5 24.1 BUN 10.0 9.0 Creatinine 0.86 0.78 Glucose 120 H 112 H Calcium 8.7 8.0 L Cardiac Enzymes 10/21/24 Range/Units 18:52 Total Creatine Kinase 38 (26-192) U/L Liver Function 10/21/24 10/22/24 Range/Units 18:52 07:03 Total Bilirubin 0.3 0.4 (0.2-1.0) mg/dL AST 44 H 28 (15-37) U/L ALT 90 H 72 H (14-59) U/L Alkaline Phosphatase 146 H 116 (46-116) U/L Albumin 3.4 2.7 L (3.4-5.0) g/dL Urine 10/21/24 Range/Units 17:15 Urine Color Lt. yellow (YELLOW) Urine Clarity Clear (CLEAR) Urine pH 7.0 (5.0-9.0) Ur Specific [place] 1.015 (1.005-1.025) Urine Protein 30 A (NEG/TRACE) mg/dL Urine Glucose (UA) Negative (NEGATIVE) mg/dL ABG ABG results: 10/21/24 18:52 VBG pH 7.385 VBG pCO2 40.9 Assessment and Plan Assessment and Plan (1) Elevated LFTs: (2) Acute dehydration: (3) Fever: Plan Pt admitted wiht heat strke, dehydratione, pyelonephtritis and dehydration Dehydration improved - repeat shaila,us elevated LFT - Better wtih hydration Pyelonephritis - aminata improved If stabel later today - negra d/c top home in improving condition medications see list and follow up this week in the office
[2024-10-22 07:49] VITALS: BP 116/72; PULSE 96; TEMP 36.8; O2SAT 98
[2024-10-22 08:00] VITALS: PULSE 105
[2024-10-22] MEDS: 0.9 % SODIUM CHLORIDE 500 ML 250 ML IV (08:13)
[2024-10-22 09:46] VITALS: PULSE 93
--- NOTE | 2024-10-23 13:21 | CM.DCFOLLOWU ---
1st attempt 10/23/24, no answer
--- NOTE | 2024-10-24 13:47 | CM.DCFOLLOWU ---
10/24-2nd attempt. No answer
--- NOTE | 2024-10-24 15:16 | CM.NOTE ---
Final urine culture tiger txt to Dr. Barnett.
--- NOTE | 2024-10-27 08:30 | PC.NURSE ---
Hoisting Laborer reviewed Final Urine culture. Hoisting Laborer gave the results to Dr. Herring for review. No new orders at this time.
== END 2024-10-22 10:37 | disposition home or self-care (01) ==
LOC: ER 20:36 → MS 22:27
PROVIDERS: Physician Assistant; Registered Nurse; Admitting Provider Family Medicine; Emergency Provider Emergency Medicine; PCP Nurse Practitioner Family; Visit Provider Family Medicine
DX: E86.0 Dehydration (principal); T67.01XA Heatstroke and sunstroke, initial encounter; X30.XXXA Exposure to excessive natural heat, initial encounter; N10 Acute pyelonephritis; R50.9 Fever, unspecified; R79.89 Other specified abnormal findings of blood chemistry; Z90.49 Acquired absence of other specified parts of digestive tract; B96.20 Unspecified Escherichia coli [E. coli] as the cause of diseases classified elsewhere
CPT/HCPCS: 36415; 70450; 71045; 74176; 80053; 80175; 80307; 81001; 82550; 82800; 83605; 83735; 84484; 84703; 85025; 85027; 85610; 86308; 87040; 87086; 87088; 87186; 87804; 87811; 93005; 96361; 96365; 96375; 99285; G0378; J0696; J1885; J2270; J2405

== ENCOUNTER 2025-02-18 11:24 | Outpatient (OUT) | payer BC, OTHER, SELFPAY ==
--- OUTSIDE RECORDS SUMMARY | 2023-10-03 05:30 | XMS_ITS | Continuity of Care Document ---
Author Organization [facility] Address [address] [place] [address] Phone Care Team Providers Care Metal Cutter Name Role Phone Torrey Fermin Unavailable Unavailable Procedures Procedure Date IMMUNIZATION ADMIN, EACH ADD HEP B VACCINE, ADULT, IM IMMUNIZATION ADMIN CHICKEN POX VACCINE, SC IMMUNIZATION ADMIN, EACH ADD IMMUNIZATION ADMIN HEP B VACCINE, ADULT, IM CHICKEN POX VACCINE, SC Advance Directives Directive Yes / No Effective Date File Name No Information Encounters Encounter Description Practice Location Reason(s) For Visit Diagnoses Date Provider Providers Copied on Encounter [facility], [address] [place] [address], [id number], tel:[phone] [facility] No Information Carley Gage. [address] [place], [place], [id number], [place]. tel:[phone] [facility], [address] [place], [place], [id number], [place] tel:[phone] [facility] No Information Carley Gage. [address] [place], [place], [id number], . tel:[phone] Family History Family Member Type Diagnosis Age At Onset No Information Immunizations Vaccine Date Status Comments Hep A (adult) refused Source: New Im munization Record Hep B, adult, 3 dose administered Source: New Immunization Record Tdap (Boostrix) refused Source: New Immunization Record Varicella administered Source: New Imm unization Record Hep B, adult, 3 dose administered Source: New Immunization Record Varicella administered Source: New Imm unization Record COVID-19, mRNA, LNP-S, PF, 3 0 mcg/0.3 mL dose administered Source: Other Regist ry Payers Payer name Insurance type Covered alliance party ID Authorely hinojosa(s) [employer] [place] [employer] [id number] [employer] [place] [employer] [id number] [employer] [place] [employer] [id number] Social History Type Description Quantity Date Captured Comments Alcohol Use Details Unknown Caffeine Use Details Unknown Tobacco Use Status No Information Smoking Status No Information Sex Female Sexual Orientation Straight or heterosexual Jul Gender Identity Female Chief Complaint And Reason For Visit No Information Reason For Referral Reason For Referral No Information Plan Of Treatment Date Type Action Status Goal Influenza vaccine. Due on due Goal HPV. Due on due Goal Hepatitis C screening. Due o n due Goal Tdap. Due on due Goal Tdap Vaccine. Due on 2023 due Goal RLP. Due on due Goal PRAPARE ASSESSMENT. Due on due Goal Unhealthy drug use screening . Due on due Goal Depression screening. Due on due Goal Tdap Vaccine. Due on 2023 due Goal Influenza vaccine. Due on due Goal Unhealthy drug use screening . Due on due Goal Depression screening. Due on due Goal RLP. Due on due Goal PRAPARE ASSESSMENT. Due on M due Goal HPV. Due on due Goal Tdap. Due on due Goal Hepatitis C screening. Due o n due History Of Present Illness Encounter Date Complaint History Of Prese nt Illness No Information Functional Status Date Functional Assessmen t No Information Instructions Date Instruction Additional Infor mation No Information Assessments Type Assessment Date No Information Patient Care Teams Name Effective Dates (start - stop) Status Members No Information
--- OUTSIDE RECORDS SUMMARY | 2024-05-21 10:20 | XMS_ITS ---
Author Organization [facility] Address [address] [place] [address] Care Team Providers Care Japanese Tutor Name Role Phone Carlota Corral Primary Care Provider Bety Puentes Unavailable [phone] Dr. Jose Renee Unavailable [phone] REASON FOR VISIT UPDATED Encounters Encounter Location Date Provider Diagnosis [facility] [address] [place] [address] 05/21/2024 Jose Renee Plan Of Treatment Next Appt Details Provider Name:Jose Renee, 1 05/06/2024 09:00:00 AM, [address] [place], [address], Provider Name:Bety Dhaval , 07/22/2025 08:00:00 AM, [address] [place], [address], Progress Notes * PROSPER RUIZDOB:1985 ( 39 yo F)Acc No.[id number]:05/21/2024 Patient:?PROSPER RUIZ :?Jose Renee, DDSDOB:1985???Age:39 Y???Sex: FemaleDate:05/21/2024Phone:[phone]:[address] [place] [id number]:Carlota Corral Subjective: * Chief Complaints: * U PDATED * Electronic signature of Dr. Jose Renee , [facility], [id number] on 02/18/2025 at 11:28 AM EDTSign off status: Pending * Provider: Cameron Renee DDS Date: 0 05/21/2024 Generated for Printing/Faxing/eTransmitting on:?02/18/2025 11:28 AM EDT
--- OUTSIDE RECORDS SUMMARY | 2024-07-16 08:45 | XMS_ITS ---
Author Organization [facility] Address [address] [place] [address] Care Team Providers Care Employee Relation Manager Name Role Phone Carlota Corral Primary Care Provider Dhaval Bety Unavailable [phone] Nimo Szymanski Unavailable [phone] REASON FOR VISIT 6 month f/u Encounters Encounter Location Date Provider Diagnosis [facility] [address] [place] [address] 07/16/2024 Nimo Szymanski Plan Of Treatment Next Appt Details Provider Name:Jose Renee, 1 05/06/2024 09:00:00 AM, [address] [facility] [place], [address], Provider Name:Bety Puentes , 07/22/2025 08:00:00 AM, [address] [place], [address], Progress Notes * PROSPER RUIZDOB:1985 ( 39 yo F)Acc No.[id number]:07/16/2024 Behavioral Health Patient: Jai PROSPER MARTIN Provider:?Nimo ReederB:1985???Age:39 Y ???Sex:FemaleDate:07/16/2024Phone:[phone]:[address] [place] [id number]:Carlota Corral Subjective: * Chief Complaints: * 6 month f/u * Electronic signature of DONNELL Lee on 02/18/2025 at 11:28 AM EDTSign off status: Pending * Appointment Provider: Tori Szymanski Date: 0 07/16/2024 Generated for Printing/Faxing/eTransmitting on:?02/18/2025 11:28 AM EDT
--- OUTSIDE RECORDS SUMMARY | 2024-10-29 06:00 | XMS_ITS ---
Author Organization [facility] in [place] Address [address] [place] [address] Care Team Providers Care Membership Sales Representative Name Role Phone Kimberlyn Rangel Primary Care Provider [phone] REASON FOR VISIT TCM [facility] Encounters Encounter Location Date Provider Diagnosis [facility] [address] [place] [address] 10/29/2024 Kimberlyn Rangel Plan Of Treatment No Information Progress Notes * Maria De Jesus RUIZDOB:1985 ( 39 yo F)Acc No.[id number]:10/29/2024 UNLOCKED PROGRESS NOTE Progress Note Patient: Maria De Jesus GILMORE Provider: Jamie Rangel CNP (TTC) :1985 A ge:39 Y S ex:Female Date:10/29/2024 Address:[address] [place], [place] [id number] Subjective: * Chief Complaints: * 1 . TCM [facility]. * Medical History: Objective: * Vitals: Assessment: Plan: * Treatment: * * Electronic signature of Xenia Mancilla NP, REPAIRER HAIRSPRING.HAND [id number] on 12/13/2024 at 02:31 PM EDT Sign off status: Pending Visit Status: N /S N/C (No Show/No Charge) * Provider: Jamie Rangel CNP (TTC) Date: 10/29/2024 Generated for Printi ng/Faxing/eTransmitting on: 12/13/2024 02:31 PM EDT
--- OUTSIDE RECORDS SUMMARY | 2024-10-29 06:00 | XMS_ITS ---
Author Organization [facility] in [place] Address [address] [place] [address] Care Team Providers Care Traffic Sign Erection Supervisor Name Role Phone Kimberlyn Rangel Primary Care Provider REASON FOR VISIT TCM [facility] Encounters Encounter Location Date Provider Diagnosis [facility] [address] [place] [phone] 10/29/2024 Kimberlyn Rangel Plan Of Treatment Next Appt Details Provider Name:Kimberlyn jimenez, 02/18/2025 02:00:00 PM, [address] [place], [address], Progress Notes * Maria De Jesus RUIZDOB:1985 ( 39 yo F)Acc No.[id number]:10/29/2024 UNLOCKED PROGRESS NOTE Progress Note Patient: Maria De Jesus GILMORE :?Kimberlyn Rangel ([facility]), CNPDOB:1985 ???Age:39 Y???Sex:FemaleDate:10/29/2024Phone:[phone]:[address] [place] [id number] Subjective: * Chief Complaints: * 1 . TCM [facility]. * Medical History: Objective: * Vitals: Assessment: Plan: * Treatment: * * Electronic signature of Kimberlyn Rangel NP, PROGRAMMER ANALYST [employer].SENIOR [id number] on 02/18/2025 at 11:29 AM EDTSign off status: PendingVisit Status:?N/S N/C (No Show/No Charge) * Provider: Jamie Rangel ([facility]), SENIOR PROGRAMMER Date: 0 10/29/2024 Generated for Printing/Faxing/eTransmitting on:?02/18/2025 11:29 AM EDT
--- OUTSIDE RECORDS SUMMARY | 2024-11-28 10:30 | XMS_ITS ---
Author Organization [facility] in [place] Address [address] [place] [address] Care Team Providers Care Therapist Asst Name Role Phone Kimberlyn Rangel Primary Care Provider [phone] Allergies Allergen (clinical drug ingredient) Drug/Non Drug Allergy documented on EMR Reaction Allergy Type Onset Date Status Substance with sulfonamide structure and antibacterial mechanism of action (substance) Sulfa Antibiotics hives Drug Allergy Active REASON FOR VISIT Presents to office alone for c/o acid reflux, also c/o having difficulty with milk supply, c/o being dizzy and lightheaded for the past 2 weeks Medications Medication SIG (Take, Route, Frequency, Duration) Notes Start Date End Date Status EPINEPHrine 0.3 MG/0.3ML as directed Injection Active Omeprazole 20 MG 1 capsule 1/2 to 1 h our before morning meal Orally Once a day for 30 days 11/28/2024 Active lamoTRIgine 150 MG 1 tablet Orally Once a day Active Latuda 60 MG 1 tablet in the even ing with food Orally Once a day Acti ve Nurtec 75 MG TAKE 1 TABLET BY JASIEL TH EVERY DAY NEEDED for 8 Active Venlafaxine HCl 37.5 MG 1 tablet with fo od Orally Once a day Active Social History Tobacco Use: Social History Observation Description Date Details (start date - stop date) Former Smoker 10/03/2007 - 09/30/2023 Tobacco Control (Standard) Question Answer Notes Tobacco use: Former smoker When did you start smoking? 10/03/2007 When did you stop smoking? 09/30/2023 AUDIT-C (Standard) Question Answer Notes Did you have a drink contain ing alcohol in the past year? Yes How often did you have six o r more drinks on one occasion in the past year? Never (0 point) How many drinks did you have on a typical day when you were drinking in the past year? 1 or 2 drinks (0 point) How often did you have a dri nk containing alcohol in the past year? Monthly or less (1 point) Points 1 Interpretation Negative Vital Signs Weight 230.0 lbs 11/28/2024 Height 62 in 11/28/2024 Blood pressure systolic 122 mm Hg 11/29/19 25 Blood pressure diastolic 80 mm Hg 025 Heart Rate 84 /min 11/28/2024 BMI 42.06 kg/m2 11/28/2024 Oximetry 97 % 11/28/2024 Encounters Encounter Location Date Provider Diagnosis [facility] [address] [place] [address] 11/28/2024 Kimberlyn Rangel Gastro-esophageal reflux disease without esophagitis K21.9 ; Dizzy spells R42 and Wellness examination Z00.00 Assessments Encounter Date Diagnosis (ICD Code) Assessment Notes Treatment Notes Treatment Clinical Notes Section Notes 11/28/2024 Gastro-esophagea l reflux disease without esophagitis (ICD-10 - K21.9) 11/28/2024 Dizzy spells (ICD-10 - R42) denies racing heart, palpitations denies ear pain increase fluids, electrolytes checking labs, urine fu if continues 11/28/2024 Wellness examination (ICD-10 - Z00.00) 11/28/2024 Other discussed breast milk production ways to support encouraged more than pumping, pump after feedings Plan Of Treatment Medication Medication Name Sig Start Date Stop Date Notes Omeprazole 20 MG 1 capsule 1/2 to 1 h our before morning meal Orally Once a day for 30 days 11/28/2024 Treatment Notes Assessment Notes Dizzy spells denies racing heart, palpitations denies ear pain increase fluids, electrolytes checking labs, urine fu if continues Other discussed breast milk production ways to support encouraged more than pumping, pump after feedings Pending Test Test Name Order Date UA (URINALYSIS, COMPLETE) 11/28/2024 HEMOGLOBIN A1C (GLYCO) 11/28/2024 IRON, TOTAL 11/28/2024 LIPID PANEL (CHOL/TRIG/HDL/LDL) 11/29/19 25 VITAMIN D, 25 LEVEL (TOTAL) 11/28/2024 Urine Culture 11/28/2024 Insulin Level 11/28/2024 CRP 11/28/2024 THYROID PANEL (T4/TSH/FREE T3) CMP (COMP MET CRUZ) w/eGFR CKD-EPI 2024 CBC WITH DIFF 11/28/2024 Next Appt Details Follow Up: prn, Reason: Progress Notes * Maria De Jesus RUIZDOB:1985 ( 39 yo F)Acc No.[id number]:11/28/2024 Progress Note Patient: Maria De Jesus GILMORE Provider: Jamie Rangel ([facility]), AIRCRAFT ENGINE DISMANTLER :1985 A ge:39 Y S ex:Female Date:11/28/2024 Address:[address] [place], [place] [id number] Check In:02:29 PM ESTCheck O ut:02:52 PM EST Subjective: * Chief Complaints: * 1 . Presents to office alone for c/o acid reflux. 2. Also c/o having difficulty with milk supply. 3. C/o being dizzy and lightheaded for the past 2 weeks. * HPI: G eneral: dizzy spells, spinny feeling some nausea with it sit down makes better in am, pump every 3 hours denies uTI sx no flank pain. * ROS: G eneral/Constitutional: dizzy spells a dmits. F ever d enies. H eadache d enies. W eight loss d enies. O phthalmologic: Discharge d enies. E ye Pain d enies. I tching and redness d enies. E NT: Nasal discharge d enies. N anni congestion d enies.?Sore throat d enies. C ardiovascular: Chest tightness/ heavy pressure d enies. R apid heart rate d enies. S welling of extremities d enies. C hest pain d enies. ? R espiratory: Productive cough d enies. C hest pain d enies. C ough d enies. S hortness of breath d enies. W heezing d enies. ? G astrointestinal: Acid Reflux/GERD/Heartburn a dmits. A bdominal pain d enies. C onstipation d enies. D ecreased appetite d enies. D iarrhea d enies. N ausea d enies. V omiting d enies. G enitourinary: Urinary incontinence d enies. P ainful urination d enies. M usculoskeletal: Back pain d enies. N leo pain d enies. M uscle aches d enies. S kin: Rash d enies. S kin lesion(s) d enies. ? c oncerned about milk production, mostly pumps, has been decreased since hospitalization. * Active Problem List Z20.828 Contact with and (louis spected) exposure to other viral communicable diseases Modified On:09/13/2022 Status:confirmed F17.210 Cigarette smoker Modified On:09/13/2022 Status:confirmed F41.9 Anxiety Modified On:09/13/2022 Status:confirmed G47.00 Insomnia Modified On:09/13/2022 Status:confirmed G43.909 Migraine Modified On:09/13/2022 Status:confirmed J32.9 Sinusitis Modified On:09/13/2022 Status:confirmed J30.9 Allergic rhinitis Modified On:09/13/2022 Status:confirmed R63.5 Weight gain Modified On:09/13/2022U Status:confirmed R55 Near syncope Modified On:09/13/2022 Status:confirmed K52.9 Gastroenteritis Modified On:09/13/2022U Status:confirmed Z68.33 BMI 33.0-33.9,adult Modified On:09/13/2022U Status:confirmed M25.531 Wrist pain, right Modified On:09/13/2022 Status:confirmed F33.41 Depression, major, r ecurrent, in partial remission Modified On:09/13/2022 Status:confirmed R52 Body aches Modified On:09/13/2022U Status:confirmed M79.674 Toe pain, right Modified On:09/13/2022 Status:confirmed K58.9 Irritable bowel synd aníbal (IBS) Modified On:01/18/2023 Status:confirmed E66.3 Overweight Modified On:06/21/2023 Status:confirmed L73.2 Hidradenitis suppura tiva Modified On:09/13/2022 Status:confirmed R06.02 Shortness of breath Modified On:09/13/2022 Status:confirmed K21.9 Gastro-esophageal re flux disease without esophagitis Modified On:11/14/2022 Status:confirmed R20.2 Paresthesia of skin Modified On:01/18/2023 Status:confirmed E66.01 Morbid (severe) obes ity due to excess calories Modified On:01/18/2023 Status:confirmed Z68.41 Body mass index [BMI ] 40.0-44.9, adult Modified On:01/18/2023 Status:confirmed G47.33 Obstructive sleep ap deion Modified On:07/25/2023 Status:confirmed N91.0 Menstrual period lat e Modified On:10/26/2023 Status:confirmed * Medical History: H idradenitis suppurativa, Migraine, Irritable bowel syndrome (IBS), Gastroenteritis, Overweight, Near syncope, Sinusitis, Body aches, Shortness of breath, Contact with and (suspected) exposure to other viral communicable diseases, Toe pain, right, BMI 33.0-33.9,adult, Wrist pain, right, Allergic rhinitis, Cigarette smoker, Depression, major, recurrent, in partial remission, Anxiety, Weight gain, Insomnia. * Surgical History: C -section x3 , Appendectomy , Cholecystectomy . * Hospitalization/Major Diagno stic Procedure: U TI several times , Surgeries , UTI 10/23. * Family History: F ather: alive, diagnosed with Diabetes mellitus without mention of complication, type II or unspecified type, not stated as uncontrolled, Unspecified essential hypertension. M other: alive. Brother(s): alive, 1 brother passed from overdose. S ister(s): , murdered. S on(s): alive. D aughter(s): alive. 4 brother(s) , 1 sister(s) - healthy. 1 son(s) , 3 daughter(s) - healthy. . * Social History: T obacco Use: T obacco Control (Standard) T obacco use: F ormer smoker W hen did you start smoking? 0 10/03/2007 W hen did you stop smoking? 0 09/30/2023 D rug/Alcohol: A GUY-C (Standard) D id you have a drink containing alcohol in the past year? Y es H ow often did you have six or more drinks on one occasion in the past year? N ever (0 point) H ow many drinks did you have on a typical day when you were drinking in the past year? 1 or 2 drinks (0 point) H ow often did you have a drink containing alcohol in the past year? M onthly or less (1 point) P oints 1 I nterpretation N egative * Medications: T aking EPINEPHrine 0.3 MG/0.3ML Solution Auto-injector as directed Injection , Taking lamoTRIgine 150 MG Tablet 1 tablet Orally Once a day , Taking Latuda(Lurasidone HCl) 60 MG Tablet 1 tablet in the evening with food Orally Once a day , Taking Nurtec(Rimegepant Sulfate) 75 MG Tablet Disintegrating TAKE 1 TABLET BY MOUTH EVERY DAY NEEDED , Taking Venlafaxine HCl 37.5 MG Tablet 1 tablet with food Orally Once a day , Discontinued Mupirocin 2 % Ointment 1 application Externally Twice a day , Medication List reviewed and reconciled with the patient * Allergies: S ulfa Antibiotics: hives - Criticality High. Objective: * Vitals: W t:230.0lbs, Ht: 62 in, BP:122/80mm Hg, HR:84/min, BMI:42.06Index, Oxygen sat %:97%, Ht-cm: 157.48 cm, Wt-k.33 kg. * Examination: G eneral Examinations: GENERAL APPEARANCE: a lert and oriented, i n no acute distress. EYES: c onjunctiva normal, sclera non-icteric. NOSE: n ormal external appearance. LUNGS: c lear to auscultation bilaterally. CARDIO: r egular rate and rhythm, S1, S2 normal, no murmurs, no edema, veins unremarkable. ABDOMEN: s oft, nontender. MUSCULOSKELETAL: G ait and station normal. SKIN: w arm and dry. Assessment: * Assessment: 1. G juliette-esophageal reflux disease without esophagitis - K21.9 (Primary) 2 .?Dizzy spells - R42 3 . W ellness examination - Z00.00 Plan: * Treatment: 2. D bindu speenricos Notes: denies racing heart, palpitations denies ear pain increase fluids, electrolytes checking labs, urine fu if continues 3. W ellness examination L AB: UA (URINALYSIS, COMPLETE) L AB: HEMOGLOBIN A1C (GLYCO) L AB: IRON, TOTAL L AB: LIPID PANEL (CHOL/TRIG/HDL/LDL) L AB: VITAMIN D, 25 LEVEL (TOTAL) L AB: Urine Culture L AB: Insulin Level L AB: CRP L AB: THYROID PANEL (T4/TSH/FREE T3) L AB: CMP (COMP MET CRUZ) w/eGFR CKD-EPI L AB: CBC WITH DIFF 4. O thers Notes: discussed breast milk production ways to support encouraged more than pumping, pump after feedings * Preventive Medicine: Screenings/Counseling: B MA ACTION PLAN Above Normal BMI Follow-up D ietary management education, guidance, and counseling See treatment section of progress note for complete details of management plan. * Follow Up: p rn * * Electronically signed by Milagros Rangel , [employer], [employer] ATTENDANT.[employer]IRCRA[employer] ENGINE DISMANTLER.[id number] on 12/02/2024 at 09:13 AM EDT Sign off status: Completed Visit Status: C HK (Check Out) true * Provider: Jamie Rangel ([facility]), [employer] DISM[employer]LER Date: 0 11/28/2024 Generated for Doni schultz/Oskar/eTransmitting on: 0 12/13/2024 02:30 PM EDT History and Physical Notes * HPI (History of Present Illness) Category Sub-Category Detail Notes Category Not es General dizzy spells, spinny feeling some nausea with it sit down makes better in am, pump every 3 hours denies uTI sx no flank pain Examination Category Sub-Category Detail Notes Category Not es General Examinations GENERAL APPEARANCE: alert a nd oriented, in no acute distress EYES: conjunctiva normal, sclera non-icteric EARS: NOSE: normal external appe arance THROAT: CARDIO: regular rate and rhy thm, S1, S2 normal, no murmurs, no edema, veins unremarkable LUNGS: clear to auscultatio n bilaterally ABDOMEN: soft, nontender SKIN: warm and dry BACK: MUSCULOSKELETAL: Gait and station nor mal LYMPH NODES:
--- OUTSIDE RECORDS SUMMARY | 2024-12-02 06:30 | XMS_ITS ---
Author Organization [facility] Address [address] [place] [address] Care Team Providers Care In School Suspension Coordinator Name Role Phone Carlota Corral Primary Care Provider Dhaval Bety Unavailable [phone] Nimo Szymanski Unavailable [phone] REASON FOR VISIT [facility] Medications Medication SIG (Take, Route, Frequency, Duration) Notes Start Date End Date Status ALPRAZolam 0.5 MG TAKE 1 TABLET DAILY, MAY TAKE additional 1 TAB PRN AT FIRST SIGN OF PANIC ATTACK Orally as directed; Duration: 15 days F41.1 08/31/2023 Not-Taking Propranolol HCl 40 MG 2 tabs Orally Twic e a day Not-Taking clonazePAM 0.5 MG 1 tab qAM daily; may take second tab daily as needed for anxiety Orally as directed; Duration: 15 days F41.1 09/14/2022 Not-Taking Ibuprofen 800 MG 1 tablet with food o r milk as needed Orally Three times a day 08/05/2024 Active carBAMazepine 200 MG 1 tablet Orally Twi ce a day; Duration: 90 days Not-Taking PriLOSEC OTC 20 MG 1 tablet 30 minutes before morning meal Orally Once a day Not-Taking Venlafaxine HCl ER 37.5 MG 1 capsule Ora lly Once a day; Duration: 30 days 11/09/2022 Active Nurtec 75 MG 1 tablet on the tong ue and allow to dissolve Orally Not-Taking lamoTRIgine 200 MG 1 tablet Orally Once a day; Duration: 30 days 12/12/2022 Active Rexulti 2 MG 1 tablet Orally Once a day; Duration: 90 days Not-Takin g Claritin 10 MG 1 tablet Orally Once a day Not-Taking Lurasidone HCl 80 MG 1 tablet in the evening with food Orally Once a day; Duration: 30 days 12/02/2024 Active Vital Signs Height 64 in 12/02/2024 Weight 232 lbs 12/02/2024 BMI 39.82 kg/m2 12/02/2024 Blood pressure systolic 151 mm Hg 12/03/19 25 Blood pressure diastolic 96 mm Hg 025 Heart Rate 93 /min 12/02/2024 Respiratory Rate 12 /min 12/02/2024 Encounters Encounter Location Date Provider Diagnosis [address] [address] 12/02/2024 Nimo Szymanski Bipolar 1 disorder, depressed, mild F31.31 and Anxiety, generalized F41.1 Assessments Encounter Date Diagnosis (ICD Code) Assessment Notes Treatment Notes Treatment Clinical Notes Section Notes 12/02/2024 Bipolar 1 disorder, depressed, mild (ICD-10 - F31.31) Patient will continue current treatment plan. Patient verbally acknowledges understanding instructions including medication education and has no further questions comments or concerns at this time. . Follow in 1 Month . Recommended treatment for Bipolar disorder includes FDA approved and OFF label medications: second generation antipsychotics and mood stabilizers. Discussed life threatening side effect of Lamotrigine. Pt is to monitor for new skin rashes or sensation of a sunburn or itchiness or redness, mouth sores or sores in mucus membranes, and call provider immediately and or go to ER, and stop the medication. Second generation antipsychotic medications can cause headache, drowsiness, agitation, dizziness, nausea, or extrapyramidal symptoms such as tremors, muscle spasms, slowness of movement or jerking of muscles. . Stable . The patient verbalizes understanding with all questions answered thoroughly and is in agreement with treatment plan. . Continue current treatment. Call for problems . GOALS: . Maintain medication regimen . _Improve mood stability . _Improve anxiety control . _Improve social and interpersonal functioning . Patient/Guardian will call sooner if symptoms worsen. Patient understands to go to ER if needed if symptoms become severe. . Crisis Intervention plan was discussed and agreed upon. Patient/Guardian will call 911 in case of emergency. Emergency contact information was provided to the patient/guardian. . Pharmacological management: . Alternative medication plans were discussed with the patient/guardian. All relevant side effects and potential adverse effects were discussed with the patient/guardian. Standard cautions and potential benefits were discussed. Patient/Guardian consented to the start/continuation of the treatment. 12/02/2024 Anxiety, generalized (ICD-10 - F41.1) Recommended treatment is: _ FDA approved medication for this age group include Selective Serotonin Reuptake Inhibitors (SSRI) and Selective Norepinephrine Reuptake Inhibitors (SNRI). . Selective serotonin reuptake inhibitors can cause nausea, headache, upset stomach, diarrhea, constipation, anxiety, irritability, and sexual dysfunction. . Please monitor for worsening of symptoms, especially suicidal ideations or morbid thoughts, and call office and or go to the emergency department immediately. Pt does not endorse exhibiting symptoms aligning with vielka. . The patient verbalizes understanding with all questions answered thoroughly and is in agreement with treatment plan. . Continue current treatment plan Patient/Guardian will call sooner if symptoms worsen. Patient understands to go to ER if needed if symptoms become severe. Crisis Intervention plan was discussed and agreed upon. Patient/Guardian will call 911 in case of emergency. Emergency contact information was provided to the patient/guardian. Plan Of Treatment Medication Medication Name Sig Start Date Stop Date Notes Venlafaxine HCl ER 37.5 MG 1 capsule Ora lly Once a day; Duration: 30 days 11/09/2022 lamoTRIgine 200 MG 1 tablet Orally Once a day; Duration: 30 days 12/12/2022 Lurasidone HCl 60 MG 1 tablet in the aishwarya brant with food Orally Once a day; Duration: 30 days 01/17/2024 Lurasidone HCl 80 MG 1 tablet in the aishwarya brant with food Orally Once a day; Duration: 30 days 12/02/2024 Treatment Notes Assessment Notes Bipolar 1 disorder, depressed, mild Patient will continue current treatment plan. Patient verbally acknowledges understanding instructions including medication education and has no further questions comments or concerns at this time. . Follow in 1 Month . Recommended treatment for Bipolar disorder includes FDA approved and OFF label medications: second generation antipsychotics and mood stabilizers. Discussed life threatening side effect of Lamotrigine. Pt is to monitor for new skin rashes or sensation of a sunburn or itchiness or redness, mouth sores or sores in mucus membranes, and call provider immediately and or go to ER, and stop the medication. Second generation antipsychotic medications can cause headache, drowsiness, agitation, dizziness, nausea, or extrapyramidal symptoms such as tremors, muscle spasms, slowness of movement or jerking of muscles. . Stable . The patient verbalizes understanding with all questions answered thoroughly and is in agreement with treatment plan. . Continue current treatment. Call for problems . GOALS: . Maintain medication regimen . _Improve mood stability . _Improve anxiety control . _Improve social and interpersonal functioning . Patient/Guardian will call sooner if symptoms worsen. Patient understands to go to ER if needed if symptoms become severe. . Crisis Intervention plan was discussed and agreed upon. Patient/Guardian will call 911 in case of emergency. Emergency contact information was provided to the patient/guardian. . Pharmacological management: . Alternative medication plans were discussed with the patient/guardian. All relevant side effects and potential adverse effects were discussed with the patient/guardian. Standard cautions and potential benefits were discussed. Patient/Guardian consented to the start/continuation of the treatment. Anxiety, generalized Recommended treatment is: _ FDA approved medication for this age group include Selective Serotonin Reuptake Inhibitors (SSRI) and Selective Norepinephrine Reuptake Inhibitors (SNRI). . Selective serotonin reuptake inhibitors can cause nausea, headache, upset stomach, diarrhea, constipation, anxiety, irritability, and sexual dysfunction. . Please monitor for worsening of symptoms, especially suicidal ideations or morbid thoughts, and call office and or go to the emergency department immediately. Pt does not endorse exhibiting symptoms aligning with vielka. . The patient verbalizes understanding with all questions answered thoroughly and is in agreement with treatment plan. . Continue current treatment plan Patient/Guardian will call sooner if symptoms worsen. Patient understands to go to ER if needed if symptoms become severe. Crisis Intervention plan was discussed and agreed upon. Patient/Guardian will call 911 in case of emergency. Emergency contact information was provided to the patient/guardian. Next Appt Details Follow Up: 2 Months, Reason: Provider Name:Jose Figueroazk, 1 05/06/2024 09:05:00 AM, [address], [place], [address], Provider Name:Bety Puentes , 07/22/2025 08:00:00 AM, [address], [place], [address], Progress Notes * BRITT RUIZ:1985 ( 39 yo F)Acc No.[id number]:12/02/2024 Behavioral Health Patient: PROSPER GILMORE Appointment Provider: Tori Szymanski :1985 A ge:39 Y S ex:Female Date:12/02/2024 Address:[address] [place], [place] [id number] Pcp:Carlota Corral Subjective: * Chief Complaints: * B h fu * HPI: C onstitutional: . Pt is here for follow up. . Patient states she is having racing thoughts at bedtime. S he is still . Her baby is now 6 months old. D ue to , will increase lurasidone instead of adding quetiapine at bedtime. . Pt is doing well, taking meds daily, tolerating well. Mood has not been fluctuating. Energy and motivation stable, concentration intact without distractibility. Sleeping though the night, feels rested. Attending work as scheduled. Denies increased goal oriented behavior or increase in purposeless activity. . Depressive symptoms are not persistent, denies having sadness, anhedonia, isolating behaviors, or crying spells. Denies Euphoria. Pervasive irritability is controlled today. Anxiety not occurring. Tolerating meds well, compliant daily. Meaningful relationships intact. . Would like to continue current treatment plan with increase in lurasidone. . Denies suicidal or homicidal ideation or plan. No morbid thoughts. Interpersonal issues discussed. . Support provided. * ROS: C ONSTITUTIONAL: No fever, chills, sweats, weakness SKIN: No jaundice, rash, lesions, petechiae GASTROINTESTINAL: No nausea, vomiting, diarrhea, or GI bleeding MUSCULOSKELETAL: No muscle pain or weakness NEUROLOGIC: No headache, dizziness, numbness, or weakness . * Medical History: * Surgical History: * Hospitalization/Major Diagno stic Procedure: * Medications: T akingLurasidone HCl 60 MG Tablet 1 tablet in the evening with food Orally Once a day Venlafaxine HCl ER 37.5 MG Capsule Extended Release 24 Hour 1 capsule Orally Once a day lamoTRIgine 200 MG Tablet 1 tablet Orally Once a day Ibuprofen 800 MG Tablet 1 tablet with food or milk as needed Orally Three times a day Taking Lurasidone HCl 60 MG Tablet 1 tablet in the evening with food Orally Once a day Taking Venlafaxine HCl ER 37.5 MG Capsule Extended Release 24 Hour 1 capsule Orally Once a day Taking lamoTRIgine 200 MG Tablet 1 tablet Orally Once a day Taking Ibuprofen 800 MG Tablet 1 tablet with food or milk as needed Orally Three times a day Not- Taking/PRNClaritin 10 MG Tablet 1 tablet Orally Once a day PriLOSEC OTC 20 MG Tablet Delayed Release 1 tablet 30 minutes before morning meal Orally Once a day Nurtec 75 MG Tablet Disintegrating 1 tablet on the tongue and allow to dissolve Orally Rexulti 2 MG Tablet 1 tablet Orally Once a day carBAMazepine 200 MG Tablet 1 tablet Orally Twice a day ALPRAZolam 0.5 MG Tablet TAKE 1 TABLET DAILY, MAY TAKE additional 1 TAB PRN AT FIRST SIGN OF PANIC ATTACK Orally as directed , Notes to Pharmacist: F41.1Propranolol HCl 40 MG Tablet 2 tabs Orally Twice a day clonazePAM 0.5 MG Tablet 1 tab qAM daily; may take second tab daily as needed for anxiety Orally as directed , Notes to Pharmacist: F41.1Not-Taking/PRN Claritin 10 MG Tablet 1 tablet Orally Once a day Not-Taking/PRN PriLOSEC OTC 20 MG Tablet Delayed Release 1 tablet 30 minutes before morning meal Orally Once a day Not-Taking/PRN Nurtec 75 MG Tablet Disintegrating 1 tablet on the tongue and allow to dissolve Orally Not-Taking/PRN Rexulti 2 MG Tablet 1 tablet Orally Once a day Not-Taking/PRN carBAMazepine 200 MG Tablet 1 tablet Orally Twice a day Not-Taking/PRN ALPRAZolam 0.5 MG Tablet TAKE 1 TABLET DAILY, MAY TAKE additional 1 TAB PRN AT FIRST SIGN OF PANIC ATTACK Orally as directed , Notes to Pharmacist: F41.1Not-Taking/PRN Propranolol HCl 40 MG Tablet 2 tabs Orally Twice a day Not-Taking/PRN clonazePAM 0.5 MG Tablet 1 tab qAM daily; may take second tab daily as needed for anxiety Orally as directed , Notes to Pharmacist: F41.1 Objective: * Vitals: H t: 64 in, Wt: 232 lbs, BMI:39.82Index, BP: 151/96 mm Hg, HR: 93 /min, RR: 12 /min. * Examination: G eneral Examination: . MENTAL STATUS EXAM: . Appearance: Appropriately dressed and groomed, good eye contact, cooperative, pleasant Behavior/Motor Activity: Normal Gait/Station: Within normal limits Speech: Normal Mood: Good Affect: Full Thought processes/Associations: Logical and goal directed Thought Content: Non-psychotic Cognition/Attention/Memory/Concentration: Alert and oriented x 4; grossly intact attention; memory-recent/remote judged adequate by interviewer Insight: Good Judgement: Good BH language: Within normal limits Fund of Knowledge: Adequate . . AIMS EXAM: . AIMS Muscles of Facial Expression: None AIMS Lips and Perioral Area: None AIMS Jaw Area Involuntary Movements: None AIMS Tongue Involuntary Movements: None AIMS Upper Arms, Wrists, Hands, Fingers: None AIMS Lower Legs, Knees, Ankles, Toes: None AIMS Overall Abnormal Movement Severity: None AIMS Incapacitation Abnormal Movement: None AIMS Self Awareness of Abnormal Movement: Aware, None noted AIMS Current Teeth, Denture Problems: No AIMS Movements Disappear in Sleep: No . . Assessment: * Assessment: 1. B ipolar 1 disorder, depressed, mild - F31.31 (Primary) 2 . A nxiety, generalized - F41.1 Plan: * Treatment: 2. A nxiety, generalized Refill Venlafaxine HCl ER Capsule Extended Release 24 Hour, 37.5 MG, 1 capsule, Orally, Once a day, 30 days, 30 Capsule, Refills 5. Notes: Recommended treatment is: _ FDA approved medication for this age group include Selective Serotonin Reuptake Inhibitors (SSRI) and Selective Norepinephrine Reuptake Inhibitors (SNRI). . Selective serotonin reuptake inhibitors can cause nausea, headache, upset stomach, diarrhea, constipation, anxiety, irritability, and sexual dysfunction. . Please monitor for worsening of symptoms, especially suicidal ideations or morbid thoughts, and call office and or go to the emergency department immediately. Pt does not endorse exhibiting symptoms aligning with vielka. . The patient verbalizes understanding with all questions answered thoroughly and is in agreement with treatment plan. . Continue current treatment plan Patient/Guardian will call sooner if symptoms worsen. Patient understands to go to ER if needed if symptoms become severe. Crisis Intervention plan was discussed and agreed upon. Patient/Guardian will call 911 in case of emergency. Emergency contact information was provided to the patient/guardian. * Procedure Codes: 3 080F DIAST BP = 90 MM [id number] SYST BP >= 140 MM HG * Follow Up: 2 Months * Images: * Sign off status: Completed true * Appointment Provider: Tori Szymanski Date: 12/02/2024 Generated for Doni Ferreira on: 12/13/2024 02:30 PM EDT History and Physical Notes * Examination Category Sub-Category Detail Notes Category Not es General Examination . MENTAL STATUS EXAM: . Appearance: Appropriately dressed and groomed, good eye contact, cooperative, pleasant Behavior/Motor Activity: Normal Gait/Station: Within normal limits Speech: Normal Mood: Good Affect: Full Thought processes/Associations: Logical and goal directed Thought Content: Non-psychotic Cognition/Attention/Memory/Con centration: Alert and oriented x 4; grossly intact attention; memory-recent/remote judged adequate by interviewer Insight: Good Judgement: Good language: Within normal limits Fund of Knowledge: Adequate . . AIMS EXAM: . AIMS Muscles of Facial Expression: None AIMS Lips and Perioral Area: None AIMS Jaw Area Involuntary Movements: None AIMS Tongue Involuntary Movements: None AIMS Upper Arms, Wrists, Hands, Fingers: None AIMS Lower Legs, Knees, Ankles, Toes: None AIMS Overall Abnormal Movement Severity: None AIMS Incapacitation Abnormal Movement: None AIMS Self Awareness of Abnormal Movement: Aware, None noted AIMS Current Teeth, Denture Problems: No AIMS Movements Disappear in Sleep: No .
--- OUTSIDE RECORDS SUMMARY | 2024-12-13 14:30 | XMS_ITS | Encounter Summary ---
Author Organization [facility] Address [address] [place] [address] Care Team Providers Care Staff Writer Name Role Phone Unavailable Primary Care Provider Unavailabl e Encounter Details Date Type Department Care Team (Late st Contact Info) Description 02/14/2024 Clinisync Result Encounter [facility] External Department Unsolicited Makenzie Recinos, DO [address] [place] [id number] Social History Tobacco Use Types Packs/Day Years Used Date Smoking Tobacco: Never Assessed Comments Yes Sex and Gender Information Value Date Recorded Sex Assigned at Female 10/26/2023 9:16 AM EDT Legal Sex Female 8:05 PM EDT Gender Identity Female 10/26/2023 9:16 AM EDT Sexual Orientation Not on file documented as of this encounter Plan of Treatment Not on file documented as of this encounter Procedures Procedure Name Priority Date/Time Associated Diagnosis Comments US OB LIMITED 1+ FETUSES 02/14/2024 12:25 PM EDT documented in this encounter Results * US OB limited 1+ fetuses (02/14/2024 12:25 PM EDT) Anatomical Region Laterality Modality Body Ultrasound 02/14/2024 12:2 5 PM EDT Narrative 02/14/2024 12:27 PM EDT [facility] [address] [place] [address] Ultrasound Report Signed Patient: MARIA DE JESUS RUIZ MR#: [id number] : 1985 Acct:[id number] Age/Sex: 38 / F ADM Date: Loc: [facility] Attending Dr: Makenzie Recinos D.O. Ordering Physician: Makenzie Recinos D.O. Date of Service: 02/14/24 Procedure(s): US OB limited Accession Number(s): [id number] cc: RADHA XIE ; Makenzie Recinos D.O. [place] [id number] Patient Name: MARIA DE JESUS RUIZ MRN: [id number] date: 1985 Sex: F Assigned Patient Location: [facility] Current Patient Location: [facility] Accession/Order Number: [id number] Exam Date: 02/14/2024 11:41 Report Date: 02/14/2024 12:25 At the request of: MAKENZIE RECINOS Procedure: US OB limited EXAMINATION: US OB limited HISTORY: decreased movement COMPARISON: No relevant comparison available. FINDINGS: position: Cephalic presentation, longitudinal lie Heart rate: 136 beats minute Clinical age: 21 weeks 1 day Clinical LISA: 06/25/2024 US/US OB limited IMPRESSION: Viable intrauterine gestation Electronically authenticated by: NATO BUTTERFIELD Date: 02/14/2024 12:25 Dictated By: Nato Butterfield M.D. Signed By: 02/14/24 1227 DD/ 1225 TD/TT: Commercial Singer: Procedure Note Radiology, Radiologist, MD - 02/14/2024 [place] [address] Ultrasound Report Signed Patient: MARIA DE JESUS RUIZMR#: [id number] : 1985Acct:[id number] Age/Sex: 38 / FADM Date: Loc: [facility] Attending Dr: Makenzie Recinos D.O. Ordering Physician: Makenzie Recinos D.O. Date of Service: 02/14/24 Procedure(s): US OB limited Accession Number(s): [id number] cc: RADHA XIE ; Makenzie Recinos D.O. The [place] [id number] Patient Name: MARIA DE JESUS RUIZ [facility]N: [id number]:[id number] date: 1985 Sex: F Assigned Patient Location: [facility] Current Patient Location: [facility] Accession/Order Number: [id number] Exam Date: 02/14/2024 11:41 Report Date: 02/14/2024 12:25 At the request of: MAKENZIE RECINOS Procedure: US OB limited EXAMINATION: US OB limited HISTORY: decreased movement COMPARISON: No relevant comparison available. FINDINGS: position: Cephalic presentation, longitudinal lie Heart rate: 136 beats minute Clinical age: 21 weeks 1 day Clinical LISA: 06/25/2024 US/US OB limited IMPRESSION: Viable intrauterine gestation Electronically authenticated by: NATO BUTTERFIELD Date: 02/14/2024 12:25 Dictated By: Nato Butterfield M.D. Signed By:02/14/24 1227 DD/ 24 TD/TT: Commercial Singer: us Makenzie Recinos DO IMG OB US PROCEDURES Final Resul t documented in this encounter Visit Diagnoses Not on filedocumented in this encounter
--- OUTSIDE RECORDS SUMMARY | 2024-12-13 14:30 | XMS_ITS | Encounter Summary ---
Author Organization [facility] Address [address] [place] [address] Care Team Providers Care Bed Teacher Name Role Phone Unavailable Primary Care Provider Unavailabl e Encounter Details Date Type Department Care Team (Late st Contact Info) Description 03/15/2024 [facility] [address] [place] [id number] Johnathan Recinos DO [address] [place] [address] Social History Tobacco Use Types Packs/Day Years [...] on file documented as of this encounter Visit Diagnoses Not on filedocumented in this encounter
--- OUTSIDE RECORDS SUMMARY | 2024-12-13 14:30 | XMS_ITS | Encounter Summary ---
Author Organization [facility] Address [address] [place] [address] Care Team Providers Care Circle Edger Name Role Phone Unavailable Primary Care Provider Unavailabl e Encounter Details Date Type Department Care Team (Late st Contact Info) Description 03/14/2024 External Result Encounter [facility] [address] [place] [address] Johnathan Recinos DO [address] [facility] [address] Jaycob [place], [facility] Social History Tobacco Use Types Packs/Day Years [...] Priority Date/Time Associated Diagnosis Comments US OB 14+ WEEKS ANATOMY SCAN 03/14/2024 12:43 PM EST documented in this encounter Results * US OB 14+ weeks anatomy scan (03/14/2024 12:43 PM EST) Anatomical Region Laterality Modality Body Ultrasound 03/14/2024 12:4 3 PM EST Narrative 03/14/2024 12:43 PM EST THIS EXAM WAS PERFORMED AT [facility] Coding ====== Procedures 87209: Follow-up Ultrasound, per fetus Indication ======== Advanced maternal age, Premature labor History ====== OB History 6. Para 3 T2P1L3 Current Cell free DNA analysis Low Risk, XY Maternal Assessment Physical Exam Height 160 cm, 5 ft 3 in. Weight 104 kg, 230 lb. Initial weight 101 kg, 223 lb. BMI 40.74 kg/m???. Initial BMI 39.50 kg/m???. Weight gain 3 kg, 7 lb Method ====== Transabdominal ultrasound examination ========= Bryant . Number of fetuses: 1 Dating ====== Date Details Gest. age LISA Stated LISA from 25 w + 2 d 06/25/2024 U/S 03/14/2024 based upon AC, BPD, Femur, HC 25 w + 6 d 06/21/2024 Assigned dating based on stated LISA (from ), selected on 03/14/2024 25 w + 2 d 06/25/2024 General Evaluation Cardiac activity present. FHR 140 bpm. Presentation: cephalic Placenta: Placental site: anterior Umbilical cord: Cord vessels: 3 vessel cord Amniotic fluid: MVP 6.4 cm Biometry BPD 64.0 mm 25w 6d 63% Hadlock OFD 81.9 mm 26w 4d 87% Aleena HC 233.1 mm 25w 2d 30% Hadlock Cerebellum tr 27.0 mm 24w 3d 34% Calix AC 226.3 mm 27w 0d 88% Hadlock Femur 46.3 mm 25w 3d 39% Hadlock Humerus 40.0 mm 24w 2d 15% Aleena HC / AC 1.03 Weight Calculation: EFW 907 g 78% Hadlock EFW (lb,oz) 2 lb 0 oz EFW by Hadlock ([id number]) Head / Face / Neck Biometry: Cephalic index 0.78 45% Nicolaides Woodwork Teacher 3.8 mm CM 3.5 mm <1% Nicolaides Extremities / Bony Struc Biometry: FL / BPD 0.72 FL / HC 0.20 FL / AC 0.20 Tibia 40.8 mm 25w 4d 54% Aleena Anatomy Face Nasal bone: previously documented. The following structures appear normal: Head / Neck Cranium. Cavum septi pellucidi. Face Lips. Heart / Thorax 4-chamber view. 0-wndcpo-avlctuu view. Situs. Bicaval view. Interventricular septum. Great vessels. Cardiac position. Cardiac axis. Cardiac rhythm. Abdomen Abdom. wall. Stomach. Kidneys. Bladder. The following structures were documented previously: Head / Neck Right choroid plexus. Left choroid plexus. Midline falx. Cerebellum. Cisterna magna. Vermis. Neck. Face Profile. Nose. Maxilla. Mandible. Orbits. Heart / Thorax RVOT view. LVOT view. 3-vessel view. Aortic arch view. Ductal arch view. Abdomen Cord insertion. Genitals. Spine Cervical spine. Thoracic spine. Lumbar spine. Sacral spine. Maternal Structures Uterus Visualized Cervix Suboptimal Right Ovary Visualized Size 38 mm x 15 mm x 24 mm. Vol 7.1 cm??? Left Ovary Visualized Size 23 mm x 17 mm x 16 mm. Vol 3.2 cm??? Impression ========= Single viable intrauterine consistent with 25w 2d with an LISA of 06/25/2024. anatomic survey did not reveal sonographic evidence of any gross structural abnormalities. Amniotic fluid MVP measures 6.4 cm. Recommendations Please see M recommendations from prior clinical and/or ultrasound report documentation. Follow up growth ultrasounds to be done in referring OB office. Subsequent follow up or other follow up as clinically determined by primary OB provider unless otherwise specified by MFM. Results forwarded to ordering provider so they can follow up with the patient as necessary. Procedure Note Radiology, RadiologistMD - 03/14/2024 THIS EXAM WAS PERFORMED AT [facility] Coding ====== Procedures 56813: Follow-up Ultrasound, per fetus Indication ======== Advanced maternal age, Premature labor History ====== OB History 6. Para 3 T2P1L3 Current Cell free DNA analysis Low Risk, XY Maternal Assessment Physical Exam Height 160 cm, 5 ft 3 in. Weight 104 kg, 230 lb. Initialweight 101 kg, 223 lb. BMI 40.74 kg/m???. Initial BMI 39.50 kg/m???.Weight gain 3 kg, 7 lb Method ====== Transabdominal ultrasound examination ========= Bryant . Number of fetuses: 1 Dating ====== Date Details Gest. ageEDD Stated LISA from 25 w + 2 d 06/25/2024 U/S 03/14/2024 based upon AC, BPD, Femur, HC 25w + 6 d 06/21/2024 Assigned dating based on stated LISA (from ), selected on w + 2 d 06/25/2024 General Evaluation Cardiac activity present. FHR 140 bpm. Presentation: cephalic Placenta: Placental site: anterior Umbilical cord: Cord vessels: 3 vessel cord Amniotic fluid: MVP 6.4 cm Biometry BPD 64.0 mm 25w 6d 63% Hadlock OFD 81.9 mm 26w 4d 87% Aleena HC 233.1 mm 25w 2d 30% Hadlock Cerebellum tr 27.0 mm 24w 3d 34% Calix AC 226.3 mm 27w 0d 88% Hadlock Femur 46.3 mm 25w 3d 39% Hadlock Humerus 40.0 mm 24w 2d 15% Aleena HC / AC 1.03 Weight Calculation: EFW 907 g 78% Hadlock EFW (lb,oz) 2 lb 0 oz EFW by Hadlock ([id number]) Head / Face / Neck Biometry: Cephalic index 0.78 45% Nicolaides Woodwork Teacher 3.8 mm CM 3.5 mm <1% Nicolaides Extremities / Bony Struc Biometry: FL / BPD 0.72 FL / HC 0.20 FL / AC 0.20 Tibia 40.8 mm 25w 4d 54% Aleena Anatomy Face Nasal bone: previously documented. The following structures appear normal: Head / Neck Cranium. Cavum septi pellucidi. Face Lips. Heart / Thorax 4-chamber view. 2-btgvvy-lvslzyx view. Situs. Bicaval view.Interventricular septum. Great vessels. Cardiac position. Cardiac axis.Cardiac rhythm. Abdomen Abdom. wall. Stomach. Kidneys. Bladder. The following structures were documented previously: Head / Neck Right choroid plexus. Left choroid plexus. Midline falx.Cerebellum. Cisterna magna. Vermis. Neck. Face Profile. Nose. Maxilla. Mandible. Orbits. Heart / Thorax RVOT view. LVOT view. 3-vessel view. Aortic arch view.Ductal arch view. Abdomen Cord insertion. Genitals. Spine Cervical spine. Thoracic spine. Lumbar spine. Sacralspine. Maternal Structures Uterus Visualized Cervix Suboptimal Right Ovary Visualized Size 38 mm x 15 mm x 24 mm. Vol 7.1 cm??? Left Ovary Visualized Size 23 mm x 17 mm x 16 mm. Vol 3.2 cm??? Impression ========= Single viable intrauterine consistent with 25w 2d with an LISA of06/25/2024. anatomic survey did not reveal sonographic evidence of any grossstructural abnormalities. Amniotic fluid MVP measures 6.4 cm. Recommendations Please see [facility] recommendations from prior clinical and/or ultrasoundreport documentation. Follow up growth ultrasounds to be done in referring OB office. Subsequent follow up or other follow up as clinically determined byprimary OB provider unless otherwise specified by [facility]. Results forwarded to ordering provider so they can follow up with thepatient as necessary. us Johnathan Recinos DO IMG OB US PROCEDURES Final Resul t documented in this encounter Visit Diagnoses Not on filedocumented in this encounter
--- OUTSIDE RECORDS SUMMARY | 2024-12-13 14:30 | XMS_ITS | Encounter Summary ---
Author Organization [facility] Address [address] [place] [address] Care Team Providers Care Implementation Analyst Name Role Phone Unavailable Primary Care Provider Unavailabl e Encounter Details Date Type Department Care Team (Late st Contact Info) Description 01/24/2024 Abstract [facility] [address] [facility] [phone] Johnathan Recinos DO [address] [place] [address] Social History Tobacco Use Types Packs/Day Years [...]
--- OUTSIDE RECORDS SUMMARY | 2024-12-13 14:30 | XMS_ITS | Encounter Summary ---
Author Organization [facility] Address [address] [place] [address] Care Team Providers Care Manager Rfid Name Role Phone Unavailable Primary Care Provider Unavailabl e Encounter Details Date Type Department Care Team (Late st Contact Info) Description 06/04/2024 Abstract [facility] [address] [place] [phone] Johnathan Recinos DO [address] [place] [address] Social History Tobacco Use Types Packs/Day Years [...]
--- OUTSIDE RECORDS SUMMARY | 2024-12-13 14:30 | XMS_ITS | Encounter Summary ---
Author Organization [facility] Address [address] [place] [address] Care Team Providers Care Diesel Fleet Mechanic Name Role Phone Unavailable Primary Care Provider Unavailabl e Encounter Details Date Type Department Care Team (Late st Contact Info) Description 05/24/2024 Clinisync Result Encounter [facility] External Department Unsolicited Liza Duque PA [address] [place] [address] Dr [place] [id number] Social History Tobacco Use Types Packs/Day Years [...] Priority Date/Time Associated Diagnosis Comments US OB BPP W NON-STRESS 05/24/2024 1:34 PM EST documented in this encounter Results * US OB BPP W NON-STRESS (05/24/2024 1:34 PM EST) Anatomical Region Laterality Modality Other 05/24/2024 1:34 PM EST Narrative 05/24/2024 1:37 PM EST The [address] [address] Ultrasound Report Signed Patient: MARIA DE JESUS RUIZ MR#: [id number] : 1985 Acct:[id number] Age/Sex: 39 / F ADM Date: 05/24/24 Loc: [facility] 250-[address]: Liza Duque Ordering Physician: Liza Duque Date of Service: 05/24/24 Procedure(s): US OB BPP w non-stress Accession Number(s): [id number] cc: Liza Duque; RADHA XIE The [place] [address] Patient Name: MARIA DE JESUS RUIZ MRN: [facility]:[id number] date: 1985 Sex: F Assigned Patient Location: [facility] Current Patient Location: [facility] Accession/Order Number: [id number] Exam Date: 05/24/2024 13:01 Report Date: 05/24/2024 13:34 At the request of: LIZA DUQUE Procedure: [...] FLUID VOLUME: 2 PRESENTATION: CEPHALIC HEART RATE: 143.62 bpm AMNIOTIC FLUID VOLUME: 14.6 cm GESTATIONAL AGE: 35 weeks 3 days US/US OB BPP w non-stress IMPRESSION: Total biophysical profile score: 8 Electronically authenticated by: NATO BUTTERFIELD Date: 05/24/2024 13:34 Dictated By: Nato Butterfield M.D. Signed By: 05/24/24 1337 DD/ 1334 TD/TT: Sheet Metal Operator: Procedure Note Radiology, Radiologist, MD - 05/24/2024 [place] [address] Ultrasound Report Signed Patient: MARIA DE JESUS RUIZMR#: [id number] : 1985Acct:[id number] Age/Sex: 39 / FADM Date: 05/24/24 Loc: [facility] 250-[address]: Liza Duque Ordering Physician: Liza Duque Date of Service: 05/24/24 Procedure(s): US OB BPP w non-stress Accession Number(s): [id number] cc: Liza Duque; RADHA XIE [address] [address] Patient Name: MARIA DE JESUS RUIZ MRN: [id number] date: 1985 Sex: F Assigned Patient Location: [facility] Current Patient Location: [facility] Accession/Order Number: [id number] Exam Date: 05/24/2024 13:01 Report Date: 05/24/2024 13:34 At the request of: LIZA DUQUE Procedure: US OB BPP w non-stress EXAMINATION: US OB BPP w non-stress HISTORY: ELEVATED BLOOD PRESSURE O16.3 COMPARISON: No relevant comparison available. TECHNIQUE: Ultrasound biophysical profile was performed in the radiology department. non-reactive stress testing was performed by nursingstaff in the birthing center. FINDINGS: BREATHING MOVEMENTS: 2 GROSS BODY MOVEMENTS: 2 TONE: 2 QUALITATIVE AMNIOTIC FLUID VOLUME: 2 PRESENTATION: CEPHALIC HEART RATE: 143.62 bpm AMNIOTIC FLUID VOLUME: 14.6 cm GESTATIONAL AGE: 35 weeks 3 days US/US OB BPP w non-stress IMPRESSION: Total biophysical profile score: 8 Electronically authenticated by: NATO BUTTERFIELD Date: 05/24/2024 13:34 Dictated By: Nato Butterfield M.D. Signed By:05/24/24 1337 DD/ 1334 TD/TT: Sheet Metal Operator: Liza ANTONIO [facility] Final Result documented in this encounter Visit Diagnoses Not on filedocumented in this encounter
--- OUTSIDE RECORDS SUMMARY | 2024-12-13 14:30 | XMS_ITS | Encounter Summary ---
Author Organization [facility] Address [address] [place] [address] Care Team Providers Care Insurance Processor Name Role Phone Unavailable Primary Care Provider Unavailabl e Encounter Details Date Type Department Care Team (Late st Contact Info) Description 05/20/2024 Abstract [facility] [address] [place] [phone] Johnathan Recinos DO [address] [place] [address] Social History Tobacco Use Types Packs/Day Years [...]
--- OUTSIDE RECORDS SUMMARY | 2024-12-13 14:30 | XMS_ITS | Encounter Summary ---
Author Organization [facility] Address [address] [place] [address] Care Team Providers Care Incinerator Plant General Supervisor Name Role Phone Unavailable Primary Care Provider Unavailabl e Encounter Details Date Type Department Care Team (Late st Contact Info) Description 01/15/2024 Abstract [facility] [address] [facility] [place] [address] Johnathan Recinos DO [address] [place] [address] Social History Tobacco Use Types Packs/Day Years [...]
--- OUTSIDE RECORDS SUMMARY | 2024-12-13 14:30 | XMS_ITS | Encounter Summary ---
Author Organization [facility] Address [address] [place] [address] Care Team Providers Care Hedis Manager Name Role Phone Unavailable Primary Care Provider Unavailabl e Encounter Details Date Type Department Care Team (Late st Contact Info) Description 02/12/2024 Abstract [facility] [address] [facility] [place] [phone] Johnathan Recinos DO [address] [place] [address] Social History Tobacco Use Types Packs/Day Years [...]
--- OUTSIDE RECORDS SUMMARY | 2024-12-13 14:30 | XMS_ITS | Encounter Summary ---
Author Organization [facility] Address [address] [place] [address] Care Team Providers Care Geospatial Technologist Name Role Phone Unavailable Primary Care Provider Unavailabl e Encounter Details Date Type Department Care Team (Late st Contact Info) Description 06/03/2024 Abstract [facility] [address] [facility] [place] [phone] Johnathan Rceinos DO [address] [place] [address] Social History Tobacco Use Types Packs/Day Years [...]
--- OUTSIDE RECORDS SUMMARY | 2024-12-13 14:30 | XMS_ITS | Encounter Summary ---
Author Organization [facility] Address [address] [place] [address] Care Team Providers Care Grazing Aide Name Role Phone Unavailable Primary Care Provider Unavailabl e Encounter Details Date Type Department Care Team (Late st Contact Info) Description 02/01/2024 Abstract [facility] [address] [place] [address] Johnathan Recinos DO [address] [place] [address] Social History Tobacco Use Types Packs/Day Years [...]
--- OUTSIDE RECORDS SUMMARY | 2024-12-13 14:30 | XMS_ITS | Encounter Summary ---
Author Organization [facility] Address [address] [facility] [place] [address] Care Team Providers Care Hand Sample Maker Name Role Phone Unavailable Primary Care Provider Unavailabl e Encounter Details Date Type Department Care Team (Late st Contact Info) Description 01/09/2024 Abstract [facility] [address] [place] [address] Giovanna Eldridge LPN [address] [place] [phone] Social History Tobacco Use Types Packs/Day Years [...]
--- OUTSIDE RECORDS SUMMARY | 2024-12-13 14:30 | XMS_ITS | Encounter Summary ---
Author Organization [facility] Address [address] [place] [address] Care Team Providers Care Auto Wash Buffer Name Role Phone Unavailable Primary Care Provider Unavailabl e Encounter Details Date Type Department Care Team (Late st Contact Info) Description 01/04/2024 Abstract [facility] [address] [place] [address] Johnathan Recinos DO [address] [place] [address] Social History Tobacco Use Types Packs/Day Years [...]
--- OUTSIDE RECORDS SUMMARY | 2024-12-13 14:30 | XMS_ITS | Encounter Summary ---
Author Organization [facility] Address [address] [place] [address] Care Team Providers Care Geotechnical Operating Engineer Name Role Phone Unavailable Primary Care Provider Unavailabl e Encounter Details Date Type Department Care Team (Late st Contact Info) Description 05/22/2024 Abstract [facility] [address] [place] [address] Johnathan Recinos DO [address] [place] [address] Social History Tobacco Use Types Packs/Day Years [...]
--- OUTSIDE RECORDS SUMMARY | 2024-12-13 14:30 | XMS_ITS | Encounter Summary ---
Author Organization [facility] Address [address] [place] [address] Care Team Providers Care Chief Librarian Branch Or Department Name Role Phone Unavailable Primary Care Provider Unavailabl e Encounter Details Date Type Department Care Team (Late st Contact Info) Description 01/03/2024 Abstract [facility] [address] [facility] [place] [phone] Johnathan Recinos DO [address] [place] [address] Social History Tobacco Use Types Packs/Day Years [...]
--- OUTSIDE RECORDS SUMMARY | 2024-12-13 14:30 | XMS_ITS | Encounter Summary ---
Author Organization [facility] Address [address] [facility] [place] [address] Care Team Providers Care Furniture Shampooer Name Role Phone Unavailable Primary Care Provider Unavailabl e Encounter Details Date Type Department Care Team (Late st Contact Info) Description 01/30/2024 Orders Only [facility] [email or web address] [place] [address] Swetha Branch LPN [address] [place] [id number] Social History Tobacco Use Types Packs/Day Years [...] Procedure Name Priority Date/Time Associated Diagnosis Comments PAP SMEAR Routine 01/24/2024 12:00 AM EDT documented in this encounter Results * Pap Smear (01/24/2024 12:00 AM EDT) Swab Cervical swab / Unknown Jorje Nurse [facility] Ob LAB CYTOLOGY ORDERABLES Final Result EXTERNAL LAB documented in this encounter Visit Diagnoses Not on filedocumented in this encounter
--- OUTSIDE RECORDS SUMMARY | 2024-12-13 14:30 | XMS_ITS | Encounter Summary ---
Author Organization [facility] tem Address [id number] [address] [place] [address] Care Team Providers Care Postmaster Relief Name Role Phone No Pcp, No Pcp Primary Care Provider Unavailabl e Encounter Details Date Type Department Care Team (Late st Contact Info) Description 01/25/2024 Orders Only Maternal- Medicine at [facility] [address] [place] [address] Ref Prov, [place] [address] Social History Tobacco Use Types Packs/Day Years Used Date Smoking Tobacco: Former Smokeless Tobacco: Never 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 Childcare Answer Date Recorded Childcare Unknown 10/08/2018 Employment Answer Date Recorded Employment Unknown 10/08/2018 Purpose - Life Answer Date Recorded Purpose and direction in life Unknown Comments Yes Sex and Gender Information Value Date Recorded Sex Assigned at Not on file Legal Sex Female 12:56 PM EDT Gender Identity Not on file Sexual Orientation Straight 02/08/2024 2: 45 AM EDT documented as of this encounter Plan of Treatment Not on file documented as of this encounter Procedures Procedure Name Priority Date/Time Associated Diagnosis Comments FREE CELL DNA (NON-[facility] SEND OUT) Routine 12/05/2023 2:30 PM EDT ULTRASOUND OFFICE Routine 11/24/2023 2:32 PM EDT documented in this encounter Results * Free Cell DNA (12/05/2023 2:30 PM EDT) us Not In System Ref Prov LAB BLOOD ORDERABLES Shayla l Result MANUALLY TRANSCRIBED RESULTS * Ultrasound - Office (11/24/2023 2:32 PM EDT) Anatomical Region Laterality Modality AMB Ultrasound us Not In System Ref Prov IMG US ORDERABLES Final R esult documented in this encounter Visit Diagnoses Not on filedocumented in this encounter Care Teams Postmaster Relief Relationship Specialty Start Date End Date No Pcp, [place] [id number] PCP - General Family Medicine 03/12/19 documented as of this encounter
--- OUTSIDE RECORDS SUMMARY | 2024-12-13 14:30 | XMS_ITS | Encounter Summary ---
Author Organization [facility] Address [address] [place] [address] Care Team Providers Care Brand Ambassador Promotional Model Name Role Phone Unavailable Primary Care Provider Unavailabl e Encounter Details Date Type Department Care Team (Late st Contact Info) Description 05/13/2024 Clinisync Result Encounter [facility] External Department Unsolicited Makenzie Recinos, DO [address] [facility] [address] [place] [phone] Social History Tobacco Use Types Packs/Day Years [...] Diagnosis Comments US OB BPP W NON-STRESS 05/13/2024 5:59 PM EST documented in this encounter Results * US OB BPP W NON-STRESS (05/13/2024 5:59 PM EST) Anatomical Region Laterality Modality Other 05/13/2024 5:59 PM EST Narrative 05/13/2024 6:02 PM EST The [facility] [address] [place] [address] Ultrasound Report Signed Patient: MARIA DE JESUS RUIZ MR#: [id number] : 1985 Acct:[id number] Age/Sex: 39 / F ADM Date: Loc: [facility] [address]: Makenzie Recinos D.O. Ordering Physician: Makenzie Recinos D.O. Date of Service: 05/13/24 Procedure(s): US OB BPP w non-stress Accession Number(s): [id number] cc: RADHA XIE ; Makenzie Recinos D.O. The [place] [address] Patient Name: MARIA DE JESUS RUIZ MRN: [id number] date: 1985 Sex: F Assigned Patient Location: [facility] Current Patient Location: [facility] Accession/Order Number: [id number] Exam Date: 05/13/2024 16:53 Report Date: 05/13/2024 17:59 At the request of: MAKENZIE RECINOS Procedure: US OB BPP w non-stress EXAM: US OB BPP w non-stress HISTORY: . Vaginal bleeding . COMPARISON: None. TECHNIQUE: Grayscale and color imaging was performed FINDINGS: There is evidence of an intrauterine in the cephalic presentation with a heart rate of 127. Amniotic fluid index is 18.2 cm. motion 2, tone 2, breathing 2, and fluid volume 2 for a score of 8/8. US/US OB BPP w non-stress IMPRESSION: 1. Intrauterine in the cephalic presentation with a heart rate of 127. 2. Biophysical profile 8/8. Electronically authenticated by: NATO LINDER Date: 05/13/2024 17:59 Dictated By: Nato Linder M.D. Signed By: 05/13/24 1802 DD/ 1759 TD/TT: Therapy Tech: Procedure Note Radiology, Radiologist, - 05/13/2024 [place] [address] Ultrasound Report Signed Patient: MARIA DE JESUS RUIZMR#: [id number] : 1985Acct:[id number] Age/Sex: 39 / FADM Date: Loc: [facility] 254-[address]: Makenzie Recinos D.O. Ordering Physician: Makenzie Recinos D.O. Date of Service: 05/13/24 Procedure(s): US OB BPP w non-stress Accession Number(s): [id number] cc: RADHA XIE ; Makenzie Recinos D.O. [place] [address] Patient Name: MARIA DE JESUS RUIZ MRN: [facility]:[id number] date: 1985 Sex: F Assigned Patient Location: [facility] Current Patient Location: [facility] Accession/Order Number: [id number] Exam Date: 05/13/2024 16:53 Report Date: 05/13/2024 17:59 At the request of: MAKENZIE RECINSO Procedure: US OB BPP w non-stress EXAM: US OB BPP w non-stress HISTORY: . Vaginal bleeding . COMPARISON: None. TECHNIQUE: Grayscale and color imaging was performed FINDINGS: There is evidence of an intrauterine in the cephalic presentation with a heart rate of 127. Amniotic fluid index is 18.2 cm. motion 2, tone 2, breathing 2, and fluid volume 2 for a score of 8/8. US/US OB BPP w non-stress IMPRESSION: 1. Intrauterine in the cephalic presentation with a heartrate of 127. 2. Biophysical profile 8/8. Electronically authenticated by: NATO LINDER Date: 05/13/2024 17:59 Dictated By: Nato Linder M.D. Signed By:05/13/24 180 DD/ 175 TD/TT: Therapy Tech: us Makenzie Recinos DO [facility] Final Result documented in this encounter Visit Diagnoses Not on filedocumented in this encounter
--- OUTSIDE RECORDS SUMMARY | 2024-12-13 14:30 | XMS_ITS | Encounter Summary ---
Author Organization [facility] Address [address] [place] [address] Care Team Providers Care Inspector Electromechanical Name Role Phone Unavailable Primary Care Provider Unavailabl e Encounter Details Date Type Department Care Team (Late st Contact Info) Description 02/13/2024 Abstract [facility] [address] [place] [address] Johnathan Recinos DO [address] [place] [address] Social History Tobacco Use Types Packs/Day Years [...]
--- OUTSIDE RECORDS SUMMARY | 2024-12-13 14:30 | XMS_ITS | Encounter Summary ---
Author Organization [facility] Address [address] [facility] [place] [address] Care Team Providers Care Manager R D Name Role Phone Unavailable Primary Care Provider Unavailabl e Encounter Details Date Type Department Care Team (Late st Contact Info) Description 02/06/2024 Abstract [facility] [address] [place] [address] Giovanna Eldridge LPN [address] [place] [phone] Social History Tobacco Use Types Packs/Day Years [...]
--- OUTSIDE RECORDS SUMMARY | 2024-12-13 14:30 | XMS_ITS | Encounter Summary ---
Author Organization [facility] Address [address] [place] [address] Care Team Providers Care Butter Production Supervisor Name Role Phone Unavailable Primary Care Provider Unavailabl e Encounter Details Date Type Department Care Team (Late st Contact Info) Description 01/30/2024 Abstract [facility] [address] [facility] [place] [address] Johnathan Recinos DO [address] [place] [address] Social History Tobacco Use Types Packs/Day Years [...]
--- OUTSIDE RECORDS SUMMARY | 2024-12-13 14:30 | XMS_ITS | Encounter Summary ---
Author Organization [facility] Address [address] [place] [address] Care Team Providers Care Slot Host Name Role Phone Unavailable Primary Care Provider Unavailabl e Encounter Details Date Type Department Care Team (Late st Contact Info) Description 03/06/2024 Clinisync Result Encounter [facility] External Department Unsolicited Makenzie Recinos, DO [address] [facility] [address] [place] [phone] Social History Tobacco Use Types Packs/Day Years [...] Name Priority Date/Time Associated Diagnosis Comments US RENAL BI 03/06/2024 3:52 PM EST documented in this encounter Results * US RENAL BI (03/06/2024 3:52 PM EST) Anatomical Region Laterality Modality Other 03/06/2024 3:52 PM EST Narrative 03/06/2024 3:55 PM EST [facility] [address] [place] [address] Ultrasound Report Signed Patient: MARIA DE JESUS RUIZ MR#: [id number] : 1985 Acct:[id number] Age/Sex: 38 / F ADM Date: Loc: [facility] 251-[address]: Makenzie Recinos D.O. Ordering Physician: Makenzie Recinos D.O. Date of Service: 03/06/24 Procedure(s): US renal BI Accession Number(s): [id number] cc: RADHA XIE ; Makenzie Recinos D.O. The [place] [address] Patient Name: MARIA DE JESUS RUIZ MRN: [id number] date: 1985 Sex: F Assigned Patient Location: [facility] Current Patient Location: [facility] Accession/Order Number: [id number] Exam Date: 03/06/2024 14:35 Report Date: 03/06/2024 15:52 At the request of: MAKENZIE RECINOS Procedure: US renal BI EXAMINATION: US renal BI HISTORY: hematuria and back pain COMPARISON: No relevant comparison available. TECHNIQUE: Ultrasound examination was performed of the bladder. FINDINGS: Right Kidney: Normal in size, contour and echotexture. The cortex measures 1.2 cm. No solid cortical mass, hydronephrosis or obstructing nephrolithiasis Height: 4.76 cm Length: 12.26 cm Width: 5.27 cm Left Kidney: Normal in size, contour and echotexture. The cortex measures 1.4 cm. No solid cortical mass, hydronephrosis or obstructing nephrolithiasis Height: 5.78 cm Length: 13.15 cm Width: 5.05 cm Urinary bladder: 135 mL. No focal abnormality in the visualized portions US/US renal BI IMPRESSION: No abnormality Electronically authenticated by: NATO BUTTERFIELD Date: 03/06/2024 15:52 Dictated By: Nato Butterfield M.D. Signed By: 03/06/24 1555 DD/ 1552 TD/TT: Sinker Puller: Procedure Note Radiology, Radiologist, - 03/06/2024 [place] [address] Ultrasound Report Signed Patient: MARIA DE JESUS RUIZMR#: [id number] : 1985Acct:[id number] Age/Sex: 38 / FADM Date: Loc: [facility] 251-[address]: Makenzie Recinos D.O. Ordering Physician: Makenzie Recinos D.O. Date of Service: 03/06/24 Procedure(s): US renal BI Accession Number(s): [id number] cc: RADHA XIE ; Makenzie Recinos D.O. [place] [address] Patient Name: MARIA DE JESUS RUIZ MRN: [facility]:[id number] date: 1985 Sex: F Assigned Patient Location: [facility] Current Patient Location: [facility] Accession/Order Number: [id number] Exam Date: 03/06/2024 14:35 Report Date: 03/06/2024 15:52 At the request of: MAKENZIE RECINOS Procedure: US renal BI EXAMINATION: US renal BI HISTORY: hematuria and back pain COMPARISON: No relevant comparison available. TECHNIQUE: Ultrasound examination was performed of the bladder. FINDINGS: Right Kidney: Normal in size, contour and echotexture. The cortex measures1.2 cm. No solid cortical mass, hydronephrosis or obstructing nephrolithiasis Height: 4.76 cm Length: 12.26 cm Width: 5.27 cm Left Kidney: Normal in size, contour and echotexture. The cortex measures1.4 cm. No solid cortical mass, hydronephrosis or obstructing nephrolithiasis Height: 5.78 cm Length: 13.15 cm Width: 5.05 cm Urinary bladder: 135 mL. No focal abnormality in the visualized portions US/US renal BI IMPRESSION: No abnormality Electronically authenticated by: NATO BUTTERFIELD Date: 03/06/2024 15:52 Dictated By: Nato Butterfield M.D. Signed By:03/06/24 1555 DD/ 1552 TD/TT: Sinker Puller: us Makenzie Recinos DO [facility] Final Result documented in this encounter Visit Diagnoses Not on filedocumented in this encounter
--- OUTSIDE RECORDS SUMMARY | 2024-12-13 14:30 | XMS_ITS | Encounter Summary ---
Author Organization [facility] Address [address] [place] [address] Care Team Providers Care Toll Collector Name Role Phone Unavailable Primary Care Provider Unavailabl e Encounter Details Date Type Department Care Team (Late st Contact Info) Description 06/04/2024 Abstract [facility] [address] [place] [address] Johnathan Recinos DO [address] [place] [address] Social History Tobacco Use Types Packs/Day Years [...]
--- OUTSIDE RECORDS SUMMARY | 2024-12-13 14:30 | XMS_ITS | Encounter Summary ---
Author Organization [facility] Address [address] [place] [address] Care Team Providers Care Icicle Machine Operator Name Role Phone Unavailable Primary Care Provider Unavailabl e Encounter Details Date Type Department Care Team (Late st Contact Info) Description 02/16/2024 Abstract [facility] [address] [place] [address] Johnathan Recinos DO [address] [place] [address] Social History Tobacco Use Types Packs/Day Years [...]
--- OUTSIDE RECORDS SUMMARY | 2024-12-13 14:30 | XMS_ITS | Encounter Summary ---
Author Organization [facility] Address [address] [place] [address] Care Team Providers Care Players Club Representative Name Role Phone Unavailable Primary Care Provider Unavailabl e Encounter Details Date Type Department Care Team (Late st Contact Info) Description 05/13/2024 Clinisync Result Encounter [facility] External Department Unsolicited Makenzie Recinos, DO [address] [facility] [address] [place] [phone] Social History Tobacco Use Types Packs/Day Years [...] Priority Date/Time Associated Diagnosis Comments US OB CERVICAL LENGTH 05/13/2024 6:01 PM EST documented in this encounter Results * US OB CERVICAL LENGTH (05/13/2024 6:01 PM EST) Anatomical Region Laterality Modality Other 05/13/2024 6:01 PM EST Narrative 05/13/2024 6:03 PM EST [facility] [address] [place] [address] Ultrasound Report Signed Patient: MARIA DE JESUS RUIZ MR#: [id number] : 1985 Acct:[id number] Age/Sex: 39 / F ADM Date: Loc: [facility] 254- Attending Dr: Makenzie Recinos D.O. Ordering Physician: Makenzie Recinos D.O. Date of Service: 05/13/24 Procedure(s): US OB cervical length Accession Number(s): [id number] cc: RADHA XIE ; Makenzie Recinos D.O. The [place] [address] Patient Name: MARIA DE JESUS RUIZ MRN: [facility]:[id number] date: 1985 Sex: F Assigned Patient Location: [facility] Current Patient Location: [facility] Accession/Order Number: [id number] Exam Date: 05/13/2024 16:53 Report Date: 05/13/2024 18:01 At the request of: MAKENZIE RECINOS Procedure: US OB cervical length EXAM: US OB cervical length HISTORY: . VAGINAL BLEEDING . COMPARISON: None. TECHNIQUE: Grayscale and color imaging was performed FINDINGS: There is evidence of an intrauterine in the cephalic presentation. heart rate is 127. Amniotic fluid volume is 18.2 which is between the fifth and 95th percentile. Largest pocket of fluid measures 5.8 cm. The cervix appears closed and measures 3.7 cm. US/US OB cervical length IMPRESSION: 1. Intrauterine in the cephalic presentation with a heart rate of 127. 2. The cervix appears closed and measures 3.7 cm. Electronically authenticated by: NATO LINDER Date: 05/13/2024 18:01 Dictated By: Nato Linder M.D. Signed By: 05/13/241802 DD/ 00 TD/TT: Photograph Printer: Procedure Note Radiology, Radiologist, MD - 05/13/2024 [place] [address] Ultrasound Report Signed Patient: MARIA DE JESUS RUIZMR#: [id number] : 1985Acct:[id number] Age/Sex: 39 / FADM Date: Loc: [facility] 254- Attending Dr: Makenzie Recinos D.O. Ordering Physician: Makenzie Recinos D.O. Date of Service: 05/13/24 Procedure(s): US OB cervical length Accession Number(s): [id number] cc: RADHA XIE ; Makenzie Recinos D.O. [place] [id number] Patient Name: MARIA DE JESUS RUIZ MRN: [id number] date: 1985 Sex: F Assigned Patient Location: [facility] Current Patient Location: [facility] Accession/Order Number: [id number] Exam Date: 05/13/2024 16:53 Report Date: 05/13/2024 18:01 At the request of: MAKENZIE RECINOS Procedure: US OB cervical length EXAM: US OB cervical length HISTORY: . VAGINAL BLEEDING . COMPARISON: None. TECHNIQUE: Grayscale and color imaging was performed FINDINGS: There is evidence of an intrauterine in the cephalic presentation. heart rate is 127. Amniotic fluid volume is 18.2 whichis between the fifth and 95th percentile. Largest pocket of fluid measures5.8 cm. The cervix appears closed and measures 3.7 cm. US/US OB cervical length IMPRESSION: 1. Intrauterine in the cephalic presentation with a heartrate of 127. 2. The cervix appears closed and measures 3.7 cm. Electronically authenticated by: NATO LINDER Date: 05/13/2024 18:01 Dictated By: Nato Linder M.D. Signed By:05/13/241802 DD/ 00 TD/TT: Photograph Printer: Makenzie Recinos DO [facility] Final Result documented in this encounter Visit Diagnoses Not on filedocumented in this encounter
--- OUTSIDE RECORDS SUMMARY | 2024-12-13 14:30 | XMS_ITS | Encounter Summary ---
Author Organization [facility] Address [address] [place] [address] Care Team Providers Care Nondestructive Tester Name Role Phone Unavailable Primary Care Provider Unavailabl e Encounter Details Date Type Department Care Team (Late st Contact Info) Description 03/14/2024 Abstract [facility] [address] [place] [address] Johnathan Recinos DO [address] [place] [address] Social History Tobacco Use Types Packs/Day Years [...]
--- OUTSIDE RECORDS SUMMARY | 2024-12-13 14:30 | XMS_ITS | Encounter Summary ---
Author Organization [facility] Address [address] [facility] [place] [address] Care Team Providers Care Corporate Development Associate Name Role Phone Unavailable Primary Care Provider Unavailabl e Encounter Details Date Type Department Care Team (Late st Contact Info) Description 05/20/2024 Abstract [facility] [address] [place] [address] Barbara Guillermo LPN Social History Tobacco Use Types Packs/Day Years [...]
--- OUTSIDE RECORDS SUMMARY | 2024-12-13 14:30 | XMS_ITS | Encounter Summary ---
Author Organization [facility] Address [address] [place] [address] Care Team Providers Care X Ray Tech Name Role Phone Unavailable Primary Care Provider Unavailabl e Encounter Details Date Type Department Care Team (Late st Contact Info) Description 02/13/2024 Abstract [facility] [address] [place] [address] Johnathan Recinos DO [address] [place] [address] Social History Tobacco Use Types Packs/Day Years [...]
--- OUTSIDE RECORDS SUMMARY | 2024-12-13 14:30 | XMS_ITS | Encounter Summary ---
Author Organization [facility] Address [address] [place] [address] Care Team Providers Care Studio Designer Name Role Phone Unavailable Primary Care Provider Unavailabl e Encounter Details Date Type Department Care Team (Late st Contact Info) Description 05/17/2024 Clinisync Result Encounter [facility] External Department Unsolicited Liza Duque PA [address] [place] [address] Dr [place] [phone] Social History Tobacco Use Types Packs/Day Years [...] Diagnosis Comments US OB BPP W NON-STRESS 05/17/2024 1:55 PM EST documented in this encounter Results * US OB BPP W NON-STRESS (05/17/2024 1:55 PM EST) Anatomical Region Laterality Modality Other 05/17/2024 1:55 PM EST Narrative 05/17/2024 1:58 PM EST The [address] [address] Ultrasound Report Signed Patient: MARIA DE JESUS RUIZ MR#: [id number] : 1985 Acct:[id number] Age/Sex: 39 / F ADM Date: 05/17/24 Loc: [facility] 250-[address]: Johnathan Recinos D.O. Ordering Physician: Liza Duque Date of Service: 05/17/24 Procedure(s): US OB BPP w non-stress Accession Number(s): [id number] cc: Liza Duque; RADHA XIE The [place] [address] Patient Name: MARIA DE JESUS RUIZ MRN: [id number] date: 1985 Sex: F Assigned Patient Location: [facility] Current Patient Location: [facility] Accession/Order Number: [id number] Exam Date: 05/17/2024 13:11 Report Date: 05/17/2024 13:55 At the request of: LIZA DUQUE Procedure: US OB BPP w non-stress EXAMINATION: US OB BPP w non-stress HISTORY:GESTATIONAL DIABETES MELLITUS O24.419 COMPARISON: Ultrasound OB biophysical 05/13/2024 TECHNIQUE: Ultrasound biophysical profile was performed in the radiology department. BREATHING MOVEMENTS: 2 GROSS BODY MOVEMENTS: 2 TONE: 2 QUALITATIVE AMNIOTIC FLUID VOLUME: 2 PRESENTATION: CEPHALIC HEART RATE: 161.68 bpm AMNIOTIC FLUID VOLUME: 16.61 cm GESTATIONAL AGE: 34 weeks 3 days US/US OB BPP w non-stress IMPRESSION: Total biophysical profile score: 8 Electronically authenticated by: RAY LEE Date: 05/17/2024 13:55 Dictated By: Ray Lee M.D. Signed By: 05/17/24 1358 DD/ 54 TD/TT: Armorer Technician: Procedure Note Radiology, Radiologist, MD - 05/17/2024 [place] [address] Ultrasound Report Signed Patient: MARIA DE JESUS RUIZMR#: [id number] : 1985Acct:[id number] Age/Sex: 39 / FADM Date: 05/17/24 Loc: [facility] 250-[address]: Johnathan Recinos D.O. Ordering Physician: Liza Duque Date of Service: 05/17/24 Procedure(s): US OB BPP w non-stress Accession Number(s): [id number] cc: Liza Duque; RADHA XIE [address] [address] Patient Name: MARIA DE JESUS RUIZ MRN: [id number] date: 1985 Sex: F Assigned Patient Location: [facility] Current Patient Location: [facility] Accession/Order Number: [id number] Exam Date: 05/17/2024 13:11 Report Date: 05/17/2024 13:55 At the request of: LIZA DUQUE Procedure: US OB BPP w non-stress EXAMINATION: US OB BPP w non-stress HISTORY:GESTATIONAL DIABETES MELLITUS O24.419 COMPARISON: Ultrasound OB biophysical 05/13/2024 TECHNIQUE: Ultrasound biophysical profile was performed in the radiology department. BREATHING MOVEMENTS: 2 GROSS BODY MOVEMENTS: 2 TONE: 2 QUALITATIVE AMNIOTIC FLUID VOLUME: 2 PRESENTATION: CEPHALIC HEART RATE: 161.68 bpm AMNIOTIC FLUID VOLUME: 16.61 cm GESTATIONAL AGE: 34 weeks 3 days US/US OB BPP w non-stress IMPRESSION: Total biophysical profile score: 8 Electronically authenticated by: RAY LEE Date: 05/17/2024 13:55 Dictated By: Ray Lee M.D. Signed By:05/17/24 1358 DD/ 1355 TD/TT: Armorer Technician: Liza ANTONIO [facility] Final Result documented in this encounter Visit Diagnoses Not on filedocumented in this encounter
--- OUTSIDE RECORDS SUMMARY | 2024-12-13 14:30 | XMS_ITS | Encounter Summary ---
Author Organization [facility] Address [address] [place] [address] Care Team Providers Care Engineering Leader Name Role Phone Unavailable Primary Care Provider Unavailabl e Encounter Details Date Type Department Care Team (Late st Contact Info) Description 02/08/2024 Abstract [facility] [address] [place] [address] Johnathan Recinos DO [address] [place] [address] Social History Tobacco Use Types Packs/Day Years [...]
--- OUTSIDE RECORDS SUMMARY | 2024-12-13 14:30 | XMS_ITS | Encounter Summary ---
Author Organization [facility] Address [address] [facility] [place] [address] Care Team Providers Care Animation Artist Name Role Phone Unavailable Primary Care Provider Unavailabl e Encounter Details Date Type Department Care Team (Late st Contact Info) Description 07/05/2024 Abstract [facility] [address] [facility] [place] [address] Liza Meraz PA [address] [facility] [address] [place], [facility] Social History Tobacco Use Types Packs/Day Years Used Date Smoking Tobacco: Never Assessed Comments No Sex and Gender Information Value Date Recorded [...]
--- OUTSIDE RECORDS SUMMARY | 2024-12-13 14:31 | XMS_ITS | Encounter Summary ---
Author Organization [facility] Address [address] [place] [address] Care Team Providers Care Bilingual Speech Therapist Name Role Phone Unavailable Primary Care Provider Unavailabl e Encounter Details Date Type Department Care Team (Late st Contact Info) Description 12/04/2023 Abstract [facility] [address] [place] [address] Johnathan Recinos DO [address] [place] [address] Social History Tobacco Use Types Packs/Day Years [...]
--- OUTSIDE RECORDS SUMMARY | 2024-12-13 14:31 | XMS_ITS | Encounter Summary ---
Author Organization [facility] Address [address] [place] [address] Care Team Providers Care Radio Board Operator Announcer Name Role Phone Unavailable Primary Care Provider Unavailabl e Encounter Details Date Type Department Care Team (Late st Contact Info) Description 04/09/2024 Abstract [facility] [address] [facility] [place] [phone] Johnathan Recinos DO [address] [place] [address] Social History Tobacco Use Types Packs/Day Years [...]
--- OUTSIDE RECORDS SUMMARY | 2024-12-13 14:31 | XMS_ITS | Clinical Summary ---
Author Organization [facility] Address [address] [place] [address] Care Team Providers Care Certified Medical Biller Name Role Phone Unavailable Primary Care Provider Unavailabl e Social History Tobacco Use Types Packs/Day Years Used Date Smoking Tobacco: Never Assessed Comments Unknown Sex and Gender Information Value Date Recorded Sex Assigned at Not on file Legal Sex Female 4:19 PM EDT Gender Identity Not on file Sexual Orientation Not on file Plan of Treatment Health Maintenance Due Date Last Done Comments Anxiety Screening 2005 Depression Screening 2005 HIV Screening 2005 Hepatitis C Screening 2005 DTaP,Tdap,Td Vaccine (1 - Tdap) 2006 Hepatitis B Vaccine (1 of 3 - 19+ 3-dose series) 05/07 Cervical Cancer Screening 2008 HPV Vaccine (1 - 3-dose SCDM series) 2014 Influenza Vaccine (#1) 2024 Insurance BLUE CARD PPO OOS
--- OUTSIDE RECORDS SUMMARY | 2024-12-13 14:31 | XMS_ITS | Clinical Summary ---
Author Organization [facility] Healthcare Address [address] [place] [address] Care Team Providers Care Upholstery Auto Trimmer Name Role Phone Unavailable Primary Care Provider Unavailabl e Allergies Active Allergy Reactions Criticality Noted Date Comments Egg-Derived Products GI intolerance 08/18/2023 Sulfamethoxazole Hives 08/18/2023 Other Reaction(s): Unknown Reaction, hives Sulfamethoxazole-Trimethopri m Unknown 11/24/2023 Other Reaction(s): Unknown Trimethoprim Hives 08/18/2023 Other Reaction(s): Unknown Reaction, hives Medications lurasidone (Latuda) 40 MG tablet Take 40 mg by mouth in the morning. Take with meals. 4 Active venlafaxine XR (Effexor XR) 37.5 MG 24 hr capsule Take 37.5 mg by mouth Daily 4 Active lamoTRIgine (LaMICtal) 200 MG tablet Take 200 mg by mouth Daily Active magnesium oxide (Mag-Ox) 400 MG tabletIndications: Constipation during in second trimester ([facility]) Take 1 tablet (400 mg) by mouth Daily 30 tablet 11 4 025 Active aspirin 81 MG EC tablet Take 81 mg by mouth Daily Active ondansetron ODT (Zofran-ODT) 4 MG disintegrating tabletIndications: Nausea Take 1 tablet (4 mg) by mouth every 6 (six) hours if needed for nausea or vomiting for up to 30 doses 30 tablet 2 4 Active Alcohol Swabs (Alcohol Prep Pad) 70 % padsIndications:Ge stational diabetes mellitus (GDM), antepartum, gestational diabetes method of control unspecified ([facility]),Elevated glucose tolerance test Apply 1 Pad topically Daily Use four times daily to check FSBS. 150 each 3 4 Active Blood Glucose Monitoring Suppl (D-TiqIQ Glucometer) w/Device kitIndications:Ges tational diabetes mellitus (GDM), antepartum, gestational diabetes method of control unspecified ([facility]HS-HCC),Elevated glucose tolerance test 1 kit Daily Use four times daily to check FSBS. In the morning prior to breakfast & 1 hour after each meal for a total of 4times daily. 1 kit 4 025 Active metoclopramide (Reglan) 10 MG tabletIndications: Flank pain,Acute cystitis with hematuria,Urinary tract infection without hematuria, site unspecified Take 1 tablet (10 mg) by mouth in the morning and 1 tablet (10 mg) at noon and 1 tablet (10 mg) in the evening. Take before meals. Take 1 tablet by mouth 30 minutes prior to meals 3 times daily as needed for nausea.. 90 tablet 2 4 Active insulin NPH, Isophane, (HumuLIN N,NovoLIN N) 100 UNIT/ML injectionIndicatio ns:Gestational diabetes mellitus (GDM) in third trimester, gestational diabetes method of control unspecified ([facility]) Inject 10 Units under the skin in the morning and 10 Units in the evening. Inject before meals. 10 mL 5 5 Active insulin regular (HumuLIN R,NovoLIN R) 100 UNIT/ML injectionIndicatio ns:Gestational diabetes mellitus (GDM) in third trimester, gestational diabetes method of control unspecified ([facility]) Inject 0.05 mL (5 Units) under the skin in the morning and 0.05 mL (5 Units) in the evening. Inject with meals. 10 mL 5 5 Active insulin syringe 29G X 1/2 0.5 mL miscIndications:Ge stational diabetes mellitus (GDM) in third trimester, gestational diabetes method of control unspecified ([facility]) Use as instructed 100 each 12 5 Active Active Problems Problem Noted Date Diagnosed Date Urinary tract infection without hematuria 2023 Flank pain 04/18/2024 Resolved Problems Problem Noted Date Diagnosed Date Resolved Date 33 weeks gestation of ([facility]) 05/13/2024 06/04/2024 Elevated blood pressure comp licating in third trimester, antepartum ([facility]) 05/13/2024 06/04/2024 28 weeks gestation of ([facility]) 04/03/2024 06/04/2024 Third trimester ([facility]) 04/03/2024 06/04/2024 Gestational diabetes mellitu s (GDM) in third trimester ([facility]) 03/21/2024 06/04/2024 Family History Medical History Relation Name Comments Diabetes Father high blood pressure Father Relation Name Status Comments Father Social History Tobacco Use Types Packs/Day Years Used Date Smoking Tobacco: Never Assessed Comments No Sex and Gender Information Value Date Recorded Sex Assigned at Female 10/26/2023 9:16 AM EDT Legal Sex Female 8:05 PM EDT Gender Identity Female 10/26/2023 9:16 AM EDT Sexual Orientation Not on file Last Filed Vital Signs Vital Sign Reading Time Taken Comments Blood Pressure 110/74 07/18/2024 1:41 PM EDT Pulse - - Temperature - - Respiratory Rate - - Oxygen Saturation - - Inhaled Oxygen Concentration - - Weight 96.6 kg (213 lb) 07/18/2024 1:41 PM EDT Height 157.5 cm (5' 2 ) 03/18/2022 12:00 PM EST Body Mass Index 38.96 03/18/2022 12:00 PM EST Plan of Treatment Health Maintenance Due Date Last Done Comments HPV/Cotest 2017 Influenza Vaccine (#1) 2024 06/02/2008 Cervical Cancer Screening 01/23/2027 Pap Smear 01/23/2027 01/24/2024 Procedures Procedure Name Priority Date/Time Associated Diagnosis Comments PAP SMEAR Routine 01/24/2024 12:00 AM EDT from Last 3 Months or Most Recently Relevant to Health Maintenance Results * Pap Smear (01/24/2024 12:00 AM EDT) Swab Cervical swab / Unknown us J[facility] CYTOLOGY ORDERABLES Final Result EXTERNAL LAB from Last 3 Months or Most Recently Relevant to Health Maintenance Insurance [facility] [employer]
--- OUTSIDE RECORDS SUMMARY | 2024-12-13 14:31 | XMS_ITS | Encounter Summary ---
Author Organization [facility] Address [address] [place] [address] Care Team Providers Care Gold Frame Assembler Name Role Phone Unavailable Primary Care Provider Unavailabl e Encounter Details Date Type Department Care Team (Late st Contact Info) Description 11/28/2023 [facility] [address] [place] [id number] Johnathan Recinos DO [address] [place] [address] Social History Tobacco Use Types Packs/Day Years [...]
--- OUTSIDE RECORDS SUMMARY | 2024-12-13 14:31 | XMS_ITS | Patient Health Record ---
Author Organization [facility] in [place] Address [address] [place] [address] Care Team Providers Care Mounter Hand Name Role Phone Kimberlyn Xie Primary Care Provider Allergies Allergen (clinical drug ingredient) Drug/Non Drug Allergy documented on EMR Reaction Allergy Type Onset Date Status Substance with sulfonamide structure and antibacterial mechanism of action (substance) Sulfa Antibiotics hives Drug Allergy Active Results Component Value Reference Range Notes CBC AUTO DIFF Reviewed date:12/29/2023 12:56:23 PM Interpretation: Performing Lab: Notes/Report: [facility] , White Blood Count 13.0 4.0-11.0 10 3/uL Red Blood Count 3.85 4.20-5.40 10 6/uL Hemoglobin 12.1 12.0-16.0 g/dL Hematocrit 35.6 36.0-48.0 % Mean Corpuscular Volume 92.5 81.0-99.0 fL Mean Corpuscular Hemoglobin 31.4 26.7-34.0 pg Mean Corpuscular HGB Conc 34.0 29.9-35.2 g/dL Red Cell Distribution Width 13.1 11.0-15.0 % Platelet Count 300 150-450 10 3/uL Mean Platelet Volume 10.4 9.5-13.5 fL Neutrophils Percent Auto 76.4 43.0-75.0 % Lymphocytes Percent Auto 18.9 20.5-60.0 % Monocytes Percent Auto 3.8 1.7-12.0 % Eosinophils Percent Auto 0.2 0.9-7.0 % Basophils Percent Auto 0.2 0.2-2.0 % Immature Granulocytes Pct Auto 0.5 0.0-0.5 % Neutrophils Absolute Auto 9.9 1.4-6.5 10 3/uL Lymphocytes Absolute Auto 2.5 1.2-3.8 10 3/uL Monocytes Absolute Auto 0.5 0.3-0.8 10 3/uL Eosinophils Absolute Auto 0.0 0.0-0.7 10 3/uL Basophils Absolute Auto 0.0 0.0-0.1 10 3/uL Immature Granulocytes Abs Auto 0.06 0.00-0.03 10 3/uL Performing Lab: see note ML - [facility] LB PREG QUANT HCG Reviewed date:12/29/2023 01:24:03 PM Interpretation: Performing Lab: Notes/Report: [facility] , HCG Quantitative 10363 5-50 0.2-1 WEEK 50-500 1-2 WEEKS 100-5,000 2-3 WEEKS 500-10,000 3-4 WEEKS 1,000-50,000 4-5 WEEKS 10,000-100,000 5-6 WEEKS 15,000-200,000 6-8 WEEKS 10,000-100,000 2-3 MONTHS Performing Lab: see note ML - [facility] LB PROF 14(COMP METB) Reviewed date:12/29/2023 01:24:03 PM Interpretation: Performing Lab: Notes/Report: [facility] , Sodium 135 136-145 mmol/L Potassium 3.9 3.5-5.1 mmol/L SPECIMEN SLIG HTLY HEMOLYZED Chloride 101 98-107 mmol/L Carbon Dioxide 24.0 21.0-32.0 mmol/L Anion Gap 13.9 Glucose 106 74-106 mg/dL Blood Urea Nitrogen 7.0 7.0-18.0 mg/dL Creatinine 0.62 0.55-1.02 mg/dL Estimated GFR ( Bekah >60 >=60 Estimated GFR (Non- Aruna >60 >=60 BUN Creatinine Ratio 11.3 Calcium 8.7 8.5-10.1 mg/dL Bilirubin Total 0.4 0.2-1.0 mg/dL Aspartate Amino Transferase 22 15-37 U/L Alanine Aminotransferase 19 14-59 U/L Alkaline Phosphatase 74 46-116 U/L Total Protein 7.3 6.4-8.2 g/dL Albumin Level 3.1 3.4-5.0 g/dL Globulin 4.2 Albumin Globulin Ratio 0.7 Performing Lab: see note ML - [facility] LB UA (CLEAN or CATCH) FOREIGN LANGUAGE PROFESSOR or M ICRO IF IND. Reviewed date:12/29/2023 12:56:23 PM Interpretation: Performing Lab: Notes/Report: [facility] , Color Urine LT. YELLOW YELLOW Clarity Urine CLEAR CLEAR Specific Terrell Urine 1.020 1.005-1.025 pH Urine 6.0 5.0-9.0 Protein Urine NEGATIVE NEG/TRACE mg/dL Glucose Urine UA NEGATIVE NEGATIVE mg/dL Bilirubin Urine NEGATIVE NEGATIVE Ketones Urine NEGATIVE NEGATIVE mg/dL Blood Urine MODERATE NEGATIVE Nitrite Urine NEGATIVE NEGATIVE Urobilinogen Urine 0.2 0.2-1.0 EU/dL Leukocyte Esterase Urine MODERATE NEGATIVE Urine Microscopic Indicated YES Performing Lab: see note ML - [facility] LB URINE MICROSCOPIC ONLY Reviewed date:12/29/2023 12:56:23 PM Interpretation: Performing Lab: Notes/Report: [facility] , WBC Urine 2-5 NONE SEEN #/HPF RBC Urine 5-10 0-2 #/HPF Bacteria Urine MODERATE NONE SEEN #/HPF Mucus Urine TRACE NONE SEEN Squamous Epithelial Cell Urine MANY NONE/RARE #/LPF Crystals Seen? None Seen None Seen #/HPF Cast Seen? NONE SEEN NONE SEEN #/LPF Yeast Urine SEEN NONE SEEN RARE BUDDING Urine Culture Indicated YES Performing Lab: see note ML - [facility] LB Urine Culture, Routine Reviewed date:01/02/2024 08:30:43 AM Interpretation: Performing Lab: Notes/Report: [facility] , Urine Culture, Routine See Below For Report Urine Culture, Routine Urine Culture, Routine Mixed urogenital tammi Urine Culture, Routine Urine Culture, Routine 50,000-100,000 co lony forming units per mL Urine Culture, Routine Urine Culture, Routine Performed at: - [facility] [place] Urine Culture, Routine Urine Culture, Routine [address] [place], [place] [id number] Urine Culture, Routine Urine Culture, Routine Microfilm Processor: Markel Pate PhD, Phone: [phone] Urine Culture, Routine Performing Lab: see note LC - [facility] LB SEE REPORT - Signal Operator Id information not found for OBX-specific video game producer legend ECG 12 lead Reviewed date:01/02/2024 08:30:43 AM Interpretation: Performing Lab: Notes/Report: Source Facility: [place] [address] [place] [address] Electrocardiograph Report Signed Patient: MARIA DE JESUS RUIZ MR#: [id number] : 1985 Acct:[id number] Age/Sex: 38 / F ADM Date: 12/29/23 Loc: ER Attending Dr: Ordering Physician: Edilia Narayanan Date of Service: 12/29/23 Procedure(s): ECG 12 lead Accession Number(s): [id number] cc: [facility] Test Date: 2023-12-29 Pat Name: MARIA DE JESUS RUIZ Department: Room: - Gender: Female Vendor Analyst: : 1985 Requested By: KIMBERLYN XIE Order Number: [id number] Reading MD: NATE COLLINS Measurements Intervals [place] Rate: 71 P: 43 VT: 140 QRS: 37 QRSD: 72 T: 43 QT: 370 QTc: 393 Interpretive Statements 1100 Sinus rhythm 1102 Sinus arrhythmia 8102 Low QRS voltage in chest leads 9120 atypical ECG Compared to ECG 11/02/2019 15:20:07 Low QRS voltage now present Short VT interval no longer present Electronically Signed On 12-29-2023 18:25:41 EDT by NATE COLLINS Dictated By: Nate Collins D.O. Signed By: 12/29/23 1826 DD/ 1243 TD/TT: Salesperson Furs: [place] [address] Electrocardiograph Report Signed Patient: MARIA DE JESUS RUIZ MR#: [id number] : 1985 Acct:[id number] Age/Sex: 38 / F ADM Date: 12/29/23 Loc: ER Attending Dr: Ordering Physician: Edilia Narayanan Date of Service: 12/29/23 Procedure(s): ECG 12 lead Accession Number(s): [id number] cc: [facility] Test Date: 2023-12-29 Pat Name: MARIA DE JESUS Hung Department: 85 Room: - Gender: Female Vendor Analyst: : 1985 Requ ested By: KIMBERLYN XIE Order Number: [id number] Reading MD: NATE COLLINS Measurements Intervals [place] Rate: 71 P: 43 VT: 140 QRS: 37 QRSD: 72 T: 43 QT: 370 QTc: 393 Interpretive Statements 1100 Sinus rhythm 1102 Sinus arrhythmia 8102 Low QRS voltage in chest leads 9120 atypical ECG Compared to ECG 11/02/2019 15:20:07 Low QRS voltage now present Short VT interval no longer present Electronically Zhanna d On 12-29-2023 18:25:41 EDT by NATE COLLINS Dictated By: Nate Collins D.O. Signed By: 12/29/23 1826 DD/ 1243 TD/TT: Salesperson Furs: Kirill GU HPV,Age Gdln Reviewed date:01/30/2024 02:35:10 PM Interpretation: Performing Lab: Notes/Report: BRUSH-SPATULA CERVIX ENDOCERVIX [facility] , Age Gdln ACOG Testing Note . TESTS RESULT FLAG UNITS REF RANGE LAB Clinician Provided Cytology Information Source.............Cer vix;Endocervix No. of containers..01 ThinPrep Vial Age Algo ACOG Leatha... 30-65 FLAG LEGEND: L-Low Normal,H-High Normal,LL-Alert Low,HH-Alert High <-Panic Low,>-Panic High,A-Abnormal,AA-Cri tical Abnormal Performed at: 01 =G [facility] [address] [place] [address] MD, IGP, Aptima HPV, rfx 16/18,45 Note . TESTS RESULT FLAG UNITS REF RANGE LAB DIAGNOSIS: 02 NEGATIVE FOR INTRAEPITHELIAL LESION OR MALIGNANCY. FUNGAL ORGANISMS MORPHOLOGICALLY CONSISTENT WITH BRAD SPECIES ARE PRESENT. Specimen adequacy: 02 Satisfactory for evaluation. No endocervical component is identified. Performed by: 02 Vianney Key Grease Press Helper (ASC) . 02 Note: Note 03 The Pap smear is a screening test designed to aid in the detection of premalignant and malignant conditions of the uterine cervix. It is not a diagnostic procedure and should not be used as the sole means of detecting cervical cancer. Both false-positive and false-negative reports do occur. Test Methodology: Note 03 This liquid based ThinPrep(R) pap test was screened with the use of an image guided system. HPV Genotype Reflex Note 02 Criteria not met, HPV Genotype not performed. FLAG LEGEND: L-Low Normal,H-High Normal,LL-Alert Low,HH-Alert High <-Panic Low,>-Panic High,A-Abnormal,AA-Cri tical Abnormal Performed at: 02 KWCYT [facility] [place] [facility] [address] [place] [id number] Alexander Barney MD, 03 WB [facility] [address] [address] MD, HPV Aptima Negative Negative This nucleic acid amplification test detects fourteen high- risk HPV types (16,18,31,33,35,39,45, 51,52,56,58,59,66,68) without differentiation. Performed at: =G - [facility] [address] [id number] Microfilm Processor: Lori Lane MD, Phone: [phone] Performed at: [facility] [address] [place] [id number] Microfilm Processor: Alexander Barney MD, Phone: [phone] Performing Lab: see note - [facility] LB AFP, Serum, Open Spina Bifid a Reviewed date:01/29/2024 09:56:40 AM Interpretation: Performing Lab: Notes/Report: PREGNANY N N ULTRASOUND [id number] 6 17 N 1 Y 225 N N N N N White/ [facility] , Results Report . Test Results: *Screen Negative* . Gest. Age on Collection Date 17.9 . weeks Gestat. Age Based On As provided . Recalculations are not recommended when gestational dating by LMP and ultrasound are within 10 days. M[age] LISA 37.1 . yr Race Other . Weight 225 . lbs Insulin Dep Diabetes No . Multiple Gestation No . AFP Value 35.9 . ng/mL AFP MoM 1.08 . OSBR Risk 1 IN 9540 . Interpretation Comment . Interpretation: Screen Negative This result is screen negative for [...] Customer Services to discuss available options. The [place] [employer] recommends amniocentesis be offered to women age 35 and older. Comment: Comment . Nette Holley, Ph.D., [facility] Director References: Available Upon Request. Multiples Of Median Cutoffs For AFP Elevations Bryant 2.5 Black 2.8 IDD 2.0 Twins 4.5 Abbreviation Definitions IDD - Insulin Dep Diabetes OSBR - Open Spina Bifida Risk For further inquiries contact [employer] at [phone]. This test was developed and its performance characteristics determined by [facility]. It has not been cleared or approved by the Food and Drug Administration. Performed at: - [facility] [address] [place], [place] [id number] Microfilm Processor: Ashley Duggan [facility], Phone: [phone] Performing Lab: see note - [facility] CBC AUTO DIFF Reviewed date:02/07/2024 08:29:41 AM Interpretation: Performing Lab: Notes/Report: [facility] , White Blood Count 11.5 4.0-11.0 10 3/uL Red Blood Count 3.99 4.20-5.40 10 6/uL Hemoglobin 12.1 12.0-16.0 g/dL Hematocrit 36.9 36.0-48.0 % Mean Corpuscular Volume 92.5 81.0-99.0 fL Mean Corpuscular Hemoglobin 30.3 26.7-34.0 pg Mean Corpuscular HGB Conc 32.8 29.9-35.2 g/dL Red Cell Distribution Width 13.4 11.0-15.0 % Platelet Count 309 150-450 10 3/uL Mean Platelet Volume 10.5 9.5-13.5 fL Performing Lab: see note ML - [facility] LB Manual Differential Reviewed date:02/07/2024 08:29:41 AM Interpretation: Performing Lab: Notes/Report: [facility] , Segmented Neutrophils % Manual 77.0 43.0-75.0 Band Neutrophils % 9.0 0-5 % Lymphocytes Percent Manual 7.0 20.5-60.0 % Monocytes Percent Manual 7.0 1.7-12.0 % Eosinophils Percent Manual 0.0 0.9-7.0 % Basophils Percent Manual 0.0 0.2-2.0 % Segmented Neut Absolute Manual 8.85 1.4-6.5 10 3/uL Band Neutrophils Absolute 1.0 0.0-0.3 10 3/uL Lymphocytes Absolute Manual 0.80 1.20-3.80 10 3/uL Monocytes Absolute Manual 0.80 0.30-0.80 10 3/uL Eosinophils Absolute Manual 0.00 0.00-0.70 10 3/uL Basophils Abs Manual 0.00 0.00-0.10 1 0 3/uL Performing Lab: see note ML - [facility] LB Urine Culture, Routine Reviewed date:02/12/2024 11:54:19 AM Interpretation: Performing Lab: Notes/Report: [facility] , Urine Culture, Routine See Below For Report Urine Culture, Routine Organism: Gram negative hayes : O:ECMS Isolated O:GNR Isolated Organism: 1.1 Antibiotic Interpretation CHUY Status Urine Culture, Routine *ABNORMAL* Urine Culture, Routine Organism: Gram negative hayes : O:ECMS Isolated O:GNR Isolated Organism: 1.1 Antibiotic Interpretation CHUY Status Urine Culture, Routine Greater than 100, 000 colony forming units per mL Urine Culture, Routine Organism: Gram negative hayes : O:ECMS Isolated O:GNR Isolated Organism: 1.1 Antibiotic Interpretation CHUY Status Urine Culture, Routine Gram negative hayes Urine Culture, Routine Organism: Gram negative hayes : O:ECMS Isolated O:GNR Isolated Organism: 1.1 Antibiotic Interpretation CHUY Status Urine Culture, Routine Organism: Escheri gracie coli, : Urine Culture, Routine Organism: Gram negative hayes : O:ECMS Isolated O:GNR Isolated Organism: 1.1 Antibiotic Interpretation CHUY Status Urine Culture, Routine *ABNORMAL* Urine Culture, Routine Organism: Gram negative hayes : O:ECMS Isolated O:GNR Isolated Organism: 1.1 Antibiotic Interpretation CHUY Status Urine Culture, Routine Cefazolin <=4 ug/mL Urine Culture, Routine Organism: Gram negative hayes : O:ECMS Isolated O:GNR Isolated Organism: 1.1 Antibiotic Interpretation CHUY Status Urine Culture, Routine Cefazolin with an CHUY <=16 predicts susceptibility Urine Culture, Routine Organism: Gram negative hayes : O:ECMS Isolated O:GNR Isolated Organism: 1.1 Antibiotic Interpretation CHUY Status Urine Culture, Routine to the oral agent s cefaclor, cefdinir, cefpodoxime, Urine Culture, Routine Organism: Gram negative hayes : O:ECMS Isolated O:GNR Isolated Organism: 1.1 Antibiotic Interpretation CHUY Status Urine Culture, Routine cefprozil, cefuro santa, cephalexin, and loracarbef when Urine Culture, Routine Organism: Gram negative hayes : O:ECMS Isolated O:GNR Isolated Organism: 1.1 Antibiotic Interpretation CHUY Status Urine Culture, Routine used for therapy of uncomplicated urinary tract Urine Culture, Routine Organism: Gram negative hayes : O:ECMS Isolated O:GNR Isolated Organism: 1.1 Antibiotic Interpretation CHUY Status Urine Culture, Routine infections due to E. coli, Klebsiella pneumoniae, and Urine Culture, Routine Organism: Gram negative hayes : O:ECMS Isolated O:GNR Isolated Organism: 1.1 Antibiotic Interpretation CHUY Status Urine Culture, Routine Proteus mirabilis. Urine Culture, Routine Organism: Gram negative hayes : O:ECMS Isolated O:GNR Isolated Organism: 1.1 Antibiotic Interpretation CHUY Status Urine Culture, Routine Greater than 100, 000 colony forming units per mL Urine Culture, Routine Organism: Gram negative hayes : O:ECMS Isolated O:GNR Isolated Organism: 1.1 Antibiotic Interpretation CHUY Status Urine Culture, Routine Escherichia coli, Urine Culture, Routine Organism: Gram negative hayes : O:ECMS Isolated O:GNR Isolated Organism: 1.1 Antibiotic Interpretation CHUY Status Urine Culture, Routine See Below For Report Urine Culture, Routine Organism: Gram negative hayes : O:ECMS Isolated O:GNR Isolated Organism: 1.1 Antibiotic Interpretation CHUY Status Urine Culture, Routine See Below For Report Urine Culture, Routine Organism: Gram negative hayes : O:ECMS Isolated O:GNR Isolated Organism: 1.1 Antibiotic Interpretation CHUY Status Urine Culture, Routine [facility], Routine Organism: Gram negative hayes : O:ECMS Isolated O:GNR Isolated Organism: 1.1 Antibiotic Interpretation CHUY Status Urine Culture, Routine [address] [place], [place] [phone] Urine Culture, Routine Organism: Gram negative hayes : O:ECMS Isolated O:GNR Isolated Organism: 1.1 Antibiotic Interpretation CHUY Status Urine Culture, Routine Microfilm Processor: Markel Pate PhD, Phone: [phone] Urine Culture, Routine Organism: Gram negative hayes : O:ECMS Isolated O:GNR Isolated Organism: 1.1 Antibiotic Interpretation CHUY Status Urine Culture, Routine See Below For Report Urine Culture, Routine Organism: Gram negative hayes : O:ECMS Isolated O:GNR Isolated Organism: 1.1 Antibiotic Interpretation CHUY Status Urine Culture, Routine AMOXICILLIN/CLAVU LANIC ACID S F Urine Culture, Routine Organism: Gram negative hayes : O:ECMS Isolated O:GNR Isolated Organism: 1.1 Antibiotic Interpretation CHUY Status Urine Culture, Routine Ampicillin S F Urine Culture, Routine Organism: Gram negative hayes : O:ECMS Isolated O:GNR Isolated Organism: 1.1 Antibiotic Interpretation CHUY Status Urine Culture, Routine Cefepime S F Urine Culture, Routine Organism: Gram negative hayes : O:ECMS Isolated O:GNR Isolated Organism: 1.1 Antibiotic Interpretation CHUY Status Urine Culture, Routine Ceftriaxone S F Urine Culture, Routine Organism: Gram negative hayes : O:ECMS Isolated O:GNR Isolated Organism: 1.1 Antibiotic Interpretation CHUY Status Urine Culture, Routine Cefuroxime S F Urine Culture, Routine Organism: Gram negative hayes : O:ECMS Isolated O:GNR Isolated Organism: 1.1 Antibiotic Interpretation CHUY Status Urine Culture, Routine Ciprofloxacin S F Urine Culture, Routine Organism: Gram negative hayes : O:ECMS Isolated O:GNR Isolated Organism: 1.1 Antibiotic Interpretation CHUY Status Urine Culture, Routine Ertapenem S F Urine Culture, Routine Organism: Gram negative hayes : O:ECMS Isolated O:GNR Isolated Organism: 1.1 Antibiotic Interpretation CHUY Status Urine Culture, Routine Gentamicin S F Urine Culture, Routine Organism: Gram negative hayes : O:ECMS Isolated O:GNR Isolated Organism: 1.1 Antibiotic Interpretation CHUY Status Urine Culture, Routine Imipenem S F Urine Culture, Routine Organism: Gram negative hayes : O:ECMS Isolated O:GNR Isolated Organism: 1.1 Antibiotic Interpretation CHUY Status Urine Culture, Routine Levofloxacin S F Urine Culture, Routine Organism: Gram negative hayes : O:ECMS Isolated O:GNR Isolated Organism: 1.1 Antibiotic Interpretation CHUY Status Urine Culture, Routine Meropenem S F Urine Culture, Routine Organism: Gram negative hayes : O:ECMS Isolated O:GNR Isolated Organism: 1.1 Antibiotic Interpretation CHUY Status Urine Culture, Routine Nitrofurantoin S F Urine Culture, Routine Organism: Gram negative hayes : O:ECMS Isolated O:GNR Isolated Organism: 1.1 Antibiotic Interpretation CHUY Status Urine Culture, Routine Tetracycline S F Urine Culture, Routine Organism: Gram negative hayes : O:ECMS Isolated O:GNR Isolated Organism: 1.1 Antibiotic Interpretation CHUY Status Urine Culture, Routine Tobramycin S F Urine Culture, Routine Organism: Gram negative hayes : O:ECMS Isolated O:GNR Isolated Organism: 1.1 Antibiotic Interpretation CHUY Status Urine Culture, Routine Trimethoprim/Sulf amethoxa zole S F Urine Culture, Routine Organism: Gram negative hayes : O:ECMS Isolated O:GNR Isolated Organism: 1.1 Antibiotic Interpretation CHUY Status Urine Culture, Routine Piperacillin/Tazo bactam S F Urine Culture, Routine Organism: Gram negative hayes : O:ECMS Isolated O:GNR Isolated Organism: 1.1 Antibiotic Interpretation CHUY Status Performing Lab: see note LC - [facility] LB SEE REPORT - Signal Operator Id information not found for OBX-specific video game producer legend CREATININE Reviewed date:02/08/2024 08:37:53 AM Interpretation: Performing Lab: Notes/Report: [facility] , Creatinine 0.72 0.55-1.02 mg/dL Estimated GFR ( Bekah >60 >=60 mL/min/1.73m 2 Estimated GFR (Non- Aruna >60 >=60 mL/min/1.73m 2 Performing Lab: see note ML - [facility] LB INFLUENZA A AND B AG Reviewed date:02/08/2024 08:37:54 AM Interpretation: Performing Lab: Notes/Report: Comment nasal swab [facility] , Influenza Virus A Antigen Negative Negative for Flu A protein antigen. Infection due to Flu A cannot be ruled out. Flu A antigen in the sample may be below the detection limit of the test. Influenza Virus B Antigen Negative Negative for Flu B protein antigen. Infection due to Flu B cannot be ruled out. Flu B antigen in the sample may be below the detection limit of the test. Performing Lab: see note ML - [facility] SARS-CoV-2 Ag* Reviewed date:02/08/2024 08:37:54 AM Interpretation: Performing Lab: Notes/Report: [facility] , SARS-CoV-2 Ag NEGATIVE NEGATIVE This test has not been FDA cleared or approved, but has been authorized by the FDA under an Emergency Use Authorization (EUA) for use by authorized laboratories certified under CLIA that meet the requirements to perform moderate or high complexity testing. This test has been authorized only for the detection of proteins from SARS-CoV-2, not for any other viruses or pathogens. The emergency use of this test is authorized for the duration of the declaration that circumstances exist justifying the authorization of emergency use of in vitro diagnostic tests for detection and/or diagnosis of Covid-19 under section 564(b)(1) of the Act, 21 U.S.C. 360bbb-3(b)(1), unless the declaration is terminated or authorization is revoked sooner. Performing Lab: see note ML - [facility] LB Amnisure* Reviewed date:02/08/2024 08:37:21 AM Interpretation: Performing Lab: Notes/Report: [facility] , Amnisure NEGATIVE NEGATIVE Performing Lab: see note ML - [facility] LB BUN Reviewed date:03/07/2024 12:18:10 PM Interpretation: Performing Lab: Notes/Report: [facility] , Blood Urea Nitrogen 6.0 7.0-18.0 mg/dL Performing Lab: see note ML - [facility] LB CREATININE Reviewed date:03/07/2024 12:18:10 PM Interpretation: Performing Lab: Notes/Report: [facility] , Creatinine 0.82 0.55-1.02 mg/dL Estimated GFR ( Bekah >60 >=60 mL/min/1.73m 2 Estimated GFR (Non- Aruna >60 >=60 mL/min/1.73m 2 Performing Lab: see note ML - [facility] LB UA (CLEAN or CATCH) FOREIGN LANGUAGE PROFESSOR or M ICRO IF IND. Reviewed date:03/07/2024 12:18:10 PM Interpretation: Performing Lab: Notes/Report: [facility] , Color Urine DK. RED YELLOW Clarity Urine CLEAR CLEAR Specific Terrell Urine 1.020 1.005-1.025 pH Urine COLOR INTERFERENCE 5.0-9.0 Protein Urine COLOR INTERFERENCE NEG/TRACE mg/dL Glucose Urine UA COLOR INTERFERENCE NEGATIVE mg/dL Bilirubin Urine COLOR INTERFERENCE NEGATIVE Ketones Urine COLOR INTERFERENCE NEGATIVE mg/dL Blood Urine COLOR INTERFERENCE NEGATIVE Nitrite Urine COLOR INTERFERENCE NEGATIVE Urobilinogen Urine COLOR INTERFERENCE 0.2-1.0 EU/dL Leukocyte Esterase Urine COLOR INTERFERENCE NEGATIVE Urine Microscopic Indicated YES Performing Lab: see note ML - [facility] LB URINE MICROSCOPIC ONLY Reviewed date:03/07/2024 12:18:10 PM Interpretation: Performing Lab: Notes/Report: [facility] , WBC Urine 0-2 NONE SEEN #/HPF RBC Urine >100 0-2 #/HPF Bacteria Urine TRACE NONE SEEN #/HPF Mucus Urine NONE SEEN NONE SEEN Squamous Epithelial Cell Urine FEW NONE/RARE #/LPF Crystals Seen? None Seen None Seen #/HPF Cast Seen? NONE SEEN NONE SEEN #/LPF Urine Culture Indicated NO Performing Lab: see note ML - [facility] LB Urine Culture, Routine Reviewed date:03/11/2024 12:56:05 PM Interpretation: Performing Lab: Notes/Report: [facility] , Urine Culture, Routine See Below For Report Urine Culture, Routine Organism: Gram negative hayes : O:ECMS Isolated O:GNR Isolated Organism: 1.1 Antibiotic Interpretation CHUY Status Urine Culture, Routine *ABNORMAL* Urine Culture, Routine Organism: Gram negative hayes : O:ECMS Isolated O:GNR Isolated Organism: 1.1 Antibiotic Interpretation CHUY Status Urine Culture, Routine 50,000-100,000 co lony forming units per mL Urine Culture, Routine Organism: Gram negative hayes : O:ECMS Isolated O:GNR Isolated Organism: 1.1 Antibiotic Interpretation CHUY Status Urine Culture, Routine Gram negative hayes Urine Culture, Routine Organism: Gram negative hayes : O:ECMS Isolated O:GNR Isolated Organism: 1.1 Antibiotic Interpretation CHUY Status Urine Culture, Routine Organism: Escheri gracie coli, : Urine Culture, Routine Organism: Gram negative hayes : O:ECMS Isolated O:GNR Isolated Organism: 1.1 Antibiotic Interpretation CHUY Status Urine Culture, Routine *ABNORMAL* Urine Culture, Routine Organism: Gram negative hayes : O:ECMS Isolated O:GNR Isolated Organism: 1.1 Antibiotic Interpretation CHUY Status Urine Culture, Routine Cefazolin <=4 ug/mL Urine Culture, Routine Organism: Gram negative hayes : O:ECMS Isolated O:GNR Isolated Organism: 1.1 Antibiotic Interpretation CHUY Status Urine Culture, Routine Cefazolin with an CHUY <=16 predicts susceptibility Urine Culture, Routine Organism: Gram negative hayes : O:ECMS Isolated O:GNR Isolated Organism: 1.1 Antibiotic Interpretation CHUY Status Urine Culture, Routine to the oral agent s cefaclor, cefdinir, cefpodoxime, Urine Culture, Routine Organism: Gram negative hayes : O:ECMS Isolated O:GNR Isolated Organism: 1.1 Antibiotic Interpretation CHUY Status Urine Culture, Routine cefprozil, cefuro santa, cephalexin, and loracarbef when Urine Culture, Routine Organism: Gram negative hayes : O:ECMS Isolated O:GNR Isolated Organism: 1.1 Antibiotic Interpretation CHUY Status Urine Culture, Routine used for therapy of uncomplicated urinary tract Urine Culture, Routine Organism: Gram negative hayes : O:ECMS Isolated O:GNR Isolated Organism: 1.1 Antibiotic Interpretation CHUY Status Urine Culture, Routine infections due to E. coli, Klebsiella pneumoniae, and Urine Culture, Routine Organism: Gram negative hayes : O:ECMS Isolated O:GNR Isolated Organism: 1.1 Antibiotic Interpretation CHUY Status Urine Culture, Routine Proteus mirabilis. Urine Culture, Routine Organism: Gram negative hayes : O:ECMS Isolated O:GNR Isolated Organism: 1.1 Antibiotic Interpretation CHUY Status Urine Culture, Routine 50,000-100,000 co lony forming units per mL Urine Culture, Routine Organism: Gram negative hayes : O:ECMS Isolated O:GNR Isolated Organism: 1.1 Antibiotic Interpretation CHUY Status Urine Culture, Routine Escherichia coli, Urine Culture, Routine Organism: Gram negative hayes : O:ECMS Isolated O:GNR Isolated Organism: 1.1 Antibiotic Interpretation CHUY Status Urine Culture, Routine See Below For Report Urine Culture, Routine Organism: Gram negative hayes : O:ECMS Isolated O:GNR Isolated Organism: 1.1 Antibiotic Interpretation CHUY Status Urine Culture, Routine See Below For Report Urine Culture, Routine Organism: Gram negative hayes : O:ECMS Isolated O:GNR Isolated Organism: 1.1 Antibiotic Interpretation CHUY Status Urine Culture, Routine Performed at: [facility] Urine Culture, Routine Organism: Gram negative hayes : O:ECMS Isolated O:GNR Isolated Organism: 1.1 Antibiotic Interpretation CHUY Status Urine Culture, Routine [address] [place], [place] [id number] Urine Culture, Routine Organism: Gram negative hayes : O:ECMS Isolated O:GNR Isolated Organism: 1.1 Antibiotic Interpretation CUHY Status Urine Culture, Routine Microfilm Processor: Markel Pate PhD, Phone: [phone] Urine Culture, Routine Organism: Gram negative hayes : O:ECMS Isolated O:GNR Isolated Organism: 1.1 Antibiotic Interpretation CHUY Status Urine Culture, Routine See Below For Report Urine Culture, Routine Organism: Gram negative hayes : O:ECMS Isolated O:GNR Isolated Organism: 1.1 Antibiotic Interpretation CHUY Status Urine Culture, Routine AMOXICILLIN/CLAVU LANIC ACID S F Urine Culture, Routine Organism: Gram negative hayes : O:ECMS Isolated O:GNR Isolated Organism: 1.1 Antibiotic Interpretation CHUY Status Urine Culture, Routine Ampicillin S F Urine Culture, Routine Organism: Gram negative hayes : O:ECMS Isolated O:GNR Isolated Organism: 1.1 Antibiotic Interpretation CHUY Status Urine Culture, Routine Cefepime S F Urine Culture, Routine Organism: Gram negative hayes : O:ECMS Isolated O:GNR Isolated Organism: 1.1 Antibiotic Interpretation CHUY Status Urine Culture, Routine Ceftriaxone S F Urine Culture, Routine Organism: Gram negative hayes : O:ECMS Isolated O:GNR Isolated Organism: 1.1 Antibiotic Interpretation CHUY Status Urine Culture, Routine Cefuroxime S F Urine Culture, Routine Organism: Gram negative hayes : O:ECMS Isolated O:GNR Isolated Organism: 1.1 Antibiotic Interpretation CHUY Status Urine Culture, Routine Ciprofloxacin S F Urine Culture, Routine Organism: Gram negative hayes : O:ECMS Isolated O:GNR Isolated Organism: 1.1 Antibiotic Interpretation CHUY Status Urine Culture, Routine Ertapenem S F Urine Culture, Routine Organism: Gram negative hayes : O:ECMS Isolated O:GNR Isolated Organism: 1.1 Antibiotic Interpretation CHUY Status Urine Culture, Routine Gentamicin S F Urine Culture, Routine Organism: Gram negative hayes : O:ECMS Isolated O:GNR Isolated Organism: 1.1 Antibiotic Interpretation CHUY Status Urine Culture, Routine Imipenem S F Urine Culture, Routine Organism: Gram negative hayes : O:ECMS Isolated O:GNR Isolated Organism: 1.1 Antibiotic Interpretation CHUY Status Urine Culture, Routine Levofloxacin S F Urine Culture, Routine Organism: Gram negative hayes : O:ECMS Isolated O:GNR Isolated Organism: 1.1 Antibiotic Interpretation CHUY Status Urine Culture, Routine Meropenem S F Urine Culture, Routine Organism: Gram negative hayes : O:ECMS Isolated O:GNR Isolated Organism: 1.1 Antibiotic Interpretation CHUY Status Urine Culture, Routine Nitrofurantoin S F Urine Culture, Routine Organism: Gram negative hayes : O:ECMS Isolated O:GNR Isolated Organism: 1.1 Antibiotic Interpretation CHUY Status Urine Culture, Routine Tetracycline S F Urine Culture, Routine Organism: Gram negative hayes : O:ECMS Isolated O:GNR Isolated Organism: 1.1 Antibiotic Interpretation CHUY Status Urine Culture, Routine Tobramycin S F Urine Culture, Routine Organism: Gram negative hayes : O:ECMS Isolated O:GNR Isolated Organism: 1.1 Antibiotic Interpretation CHUY Status Urine Culture, Routine Trimethoprim/Sulf amethoxa zole S F Urine Culture, Routine Organism: Gram negative hayes : O:ECMS Isolated O:GNR Isolated Organism: 1.1 Antibiotic Interpretation CHUY Status Urine Culture, Routine Piperacillin/Tazo bactam S F Urine Culture, Routine Organism: Gram negative hayes : O:ECMS Isolated O:GNR Isolated Organism: 1.1 Antibiotic Interpretation CHUY Status Performing Lab: see note LC - [facility] LB SEE REPORT - Signal Operator Id information not found for OBX-specific video game producer legend US renal BI Reviewed date:03/07/2024 12:18:10 PM Interpretation: Performing Lab: Notes/Report: Source Facility: [place] [address] Ultrasound Report Signed Patient: MARIA DE JESUS RUIZ MR#: [id number] : 1985 Acct:[id number] Age/Sex: 38 / F ADM Date: Loc: [facility] 251-[address]: Makenzie Recinos D.O. Ordering Physician: Makenzie Recinos D.O. Date of Service: 03/06/24 Procedure(s): US renal BI Accession Number(s): [id number] cc: KIMBERLYN XIE ; Makenzie Recinos D.O. The [place] [address] Patient Name: MARIA DE JESUS RUIZ MRN: [id number] date: 1985 Sex: F Assigned Patient Location: [facility] Current Patient Location: [facility] Accession/Order Number: [id number] Exam Date: 03/06/2024 14:35 Report Date: 03/06/2024 [...] Dictated By: Nato Butterfield M.D. Signed By: 03/06/241554 DD/ 51 TD/TT: Salesperson Furs: [place] [address] Ultrasound Report Signed Patient: MARIA DE JESUS RUIZ MR#: [id number] : 1985 Acct:[id number] Age/Sex: 38 / F ADM Date: Loc: [facility] 251-[address]: Makenzie Recinos D.O. Ordering Physician: Makenzie Recinos D.O. Date of Service: 03/06/24 Procedure(s): US renal BI Accession Number(s): [id number] cc: KIMBERLYN XIE ; Makenzie Recinos D.O. [place] [address] Patient Name: MARIA DE JESUS RUIZ MRN: [id number] date: 1985 Sex: F Assigned Patient Location: [facility] Current Patient Loca tion: [facility] Accession/Order Numb er: [id number] Exam Date: 14:35 Report Date: 03/06/2024 15:52 At the request of: MAKENZIE RECINOS Procedure: US renal BI EXAMINATION: US renal BI HISTORY: hematuria a nd back pain COMPARISON: No relev ant comparison available. TECHNIQUE: Ultrasoun d examination was performed of the bladder. FINDINGS: Right Kidney: Normal in size, contour and echotexture. The cortex measures 1.2 cm. No solid cortica l mass, hydronephrosis or obstructing nephrolithiasis Height: 4.76 cm Jessy th: 12.26 cm Width: 5.27 cm Left Kidney: Normal in size, contour and echotexture. The cortex measures 1.4 cm. No solid cortica l mass, hydronephrosis or obstructing nephrolithiasis Height: 5.78 cm Jessy th: 13.15 cm Width: 5.05 cm Urinary bladder: 135 mL. No focal abnormality in the visualized portions U S/US renal BI IMPRESSION: No abnormality Electronically authenticated by: NATO BUTTERFIELD Date: 03/06/2024 15:52 Dictated By: Jero Butterfield M.D. Signed By: 03/06/24 1555 DD/ 1552 TD/TT: Salesperson Furs: CBC AUTO DIFF Reviewed date:03/21/2024 01:38:30 PM Interpretation: Performing Lab: Notes/Report: [facility] , White Blood Count 8.4 4.0-11.0 10 3/uL Red Blood Count 3.77 4.20-5.40 10 6/uL Hemoglobin 11.5 12.0-16.0 g/dL Hematocrit 35.2 36.0-48.0 % Mean Corpuscular Volume 93.4 81.0-99.0 fL Mean Corpuscular Hemoglobin 30.5 26.7-34.0 pg Mean Corpuscular HGB Conc 32.7 29.9-35.2 g/dL Red Cell Distribution Width 13.9 11.0-15.0 % Platelet Count 347 150-450 10 3/uL Mean Platelet Volume 10.5 9.5-13.5 fL Neutrophils Percent Auto 72.6 43.0-75.0 % Lymphocytes Percent Auto 22.9 20.5-60.0 % Monocytes Percent Auto 3.3 1.7-12.0 % Eosinophils Percent Auto 0.5 0.9-7.0 % Basophils Percent Auto 0.1 0.2-2.0 % Immature Granulocytes Pct Auto 0.6 0.0-0.5 % Neutrophils Absolute Auto 6.1 1.4-6.5 10 3/uL Lymphocytes Absolute Auto 1.9 1.2-3.8 10 3/uL Monocytes Absolute Auto 0.3 0.3-0.8 10 3/uL Eosinophils Absolute Auto 0.0 0.0-0.7 10 3/uL Basophils Absolute Auto 0.0 0.0-0.1 10 3/uL Immature Granulocytes Abs Auto 0.05 0.00-0.03 10 3/uL Performing Lab: see note ML - [facility] LB Glucose 1 Hour Reviewed date:03/21/2024 01:38:30 PM Interpretation: Performing Lab: Notes/Report: [facility] , Glucose 1 Hour 181 <130 mg/dL Performing Lab: see note ML - [facility] LB LIVER PROFILE Reviewed date:04/04/2024 10:02:51 AM Interpretation: Performing Lab: Notes/Report: [facility] , Bilirubin Total 0.2 0.2-1.0 mg/dL Bilirubin Direct 0.1 0.0-0.2 mg/dL Aspartate Amino Transferase 11 15-37 U/L Alanine Aminotransferase 14 14-59 U/L Alkaline Phosphatase 105 46-116 U/L Total Protein 6.3 6.4-8.2 g/dL Albumin Level 2.7 3.4-5.0 g/dL Globulin 3.6 Albumin Globulin Ratio 0.8 Performing Lab: see note ML - [facility] LB Urine Culture, Routine Reviewed date:04/08/2024 12:27:38 PM Interpretation: Performing Lab: Notes/Report: [facility] , Urine Culture, Routine See Below For Report Urine Culture, Routine Urine Culture, Routine Mixed urogenital tammi Urine Culture, Routine Urine Culture, Routine Less than 10,000 colonies/mL Urine Culture, Routine Urine Culture, Routine [facility] at[facility] Urine Culture, Routine Urine Culture, Routine [address] [place] [phone] Urine Culture, Routine Urine Culture, Routine Microfilm Processor: Markel Pate PhD, Phone: [phone] Urine Culture, Routine Performing Lab: see note LC - [facility] LB SEE REPORT - Signal Operator Id information not found for OBX-specific video game producer legend US OB cervical length Reviewed date:06/20/2024 03:44:27 PM Interpretation: Performing Lab: Notes/Report: Source Facility: [place] [address] [place] [address] Ultrasound Report Signed Patient: MARIA DE JESUS RUIZ MR#: [id number] : 1985 Acct:[id number] Age/Sex: 39 / F ADM Date: Loc: [facility] 254- Attending Dr: Makenzie Recinos D.O. Ordering Physician: Makenzie Recinos D.O. Date of Service: 05/13/24 Procedure(s): US OB cervical length Accession Number(s): [id number] cc: KIMBERLYN XIE ; Makenzie Recinos D.O. The [address] [id number] Patient Name: MARIA DE JESUS RUIZ MRN: [id number] date: 1985 Sex: F Assigned Patient Location: [facility] Current Patient Location: [facility] Accession/Order Number: [id number] Exam Date: 05/13/2024 16:53 Report Date: 05/13/2024 [...] M.D. Signed By: 05/13/241802 DD/ 00 TD/TT: Salesperson Furs: [place] [address] Ultrasound Report Signed Patient: MARIA DE JESUS RUIZ MR#: [id number] : 1985 Acct:[id number] Age/Sex: 39 / F ADM Date: Loc: [facility] 254- Attending Dr: Makenzie Recinos D.O. Ordering Physician: Makenzie Recinos D.O. Date of Service: 05/13/24 Procedure(s): US OB cervical length Accession Number(s): [id number] cc: KIMBERLYN XIE ; Makenzie Recinos D.O. [address] [address] Patient Name: MARIA DE JESUS RUIZ MRN: [id number] date: 1985 Sex: F Assigned Patient Location: [facility] Current Patient Loca tion: [facility] Accession/Order Numb er: [id number] Exam Date: 05/13/2024 16:53 Report Date: 05/13/2024 18:01 At the request of: MAKENZIE RECINOS Procedure: US OB cer vical length EXAM: US OB cervical length HISTORY: . VAGINAL BLEEDING . COMPARISON: None. TECHNIQUE: Grayscale and color imaging was performed FINDINGS: There is evidence of an intrauterine in the cephalic presentation. heart rate is 127. Amniotic fluid volume is 18.2 which is between the fifth an d 95th percentile. Largest pocket of fluid measures 5.8 cm. The cervix appears c losed and measures 3.7 cm. U S/US OB cervical length IMPRESSION: 1. Intrauterine preg kashmir in the cephalic presentation with a heart rate of 127. 2. The cervix appear s closed and measures 3.7 cm. Electronically authenticated by: NATO LINDER Date: 05/13/2024 18:01 Dictated By: Donovan Linder M.D. Signed By: 05/13/241802 DD/ 00 TD/TT: Salesperson Furs: US OB BPP w non-stress Reviewed date:06/20/2024 03:44:40 PM Interpretation: Performing Lab: Notes/Report: Source Facility: [place] [address] Ultrasound Report Signed Patient: MARIA DE JESUS RUIZ MR#: [id number] : 1985 Acct:[id number] Age/Sex: 39 / F ADM Date: Loc: [facility] 254-[address]: Makenzie Recinos D.O. Ordering Physician: Makenzie Recinos D.O. Date of Service: 05/13/24 Procedure(s): US OB BPP w non-stress Accession Number(s): [id number] cc: KIMBERLYN XIE ; Makenzie Recinos D.O. [place] [address] Patient Name: MARIA DE JESUS RUIZ MRN: [id number] date: 1985 Sex: F Assigned Patient Location: [facility] Current Patient Location: [facility] Accession/Order Number: [id number] Exam Date: 05/13/2024 16:53 Report Date: 05/13/2024 [...] Dictated By: Nato Linder M.D. Signed By: 05/13/241801 DD/ 175 TD/TT: Salesperson Furs: [place] [address] Ultrasound Report Signed Patient: MARIA DE JESUS RUIZ MR#: [id number] : 1985 Acct:[id number] Age/Sex: 39 / F ADM Date: Loc: [facility] 254-[address]: Makenzie Recinos D.O. Ordering Physician: Makenzie Recinos D.O. Date of Service: 05/13/24 Procedure(s): US OB BPP w non-stress Accession Number(s): [id number] cc: KIMBERLYN XIE ; Makenzie Recinos D.O. [place] [address] Patient Name: MARIA DE JESUS RUIZ MRN: [id number] date: 1985 Sex: F Assigned Patient Location: [facility] Current Patient Loca tion: [facility] Accession/Order Numb er: [id number] Exam Date: 05/13/2024 16:53 Report Date: 05/13/2024 17:59 At the request of: MAKENZIE RECINOS Procedure: US OB fet al BPP w non-stress EXAM: US OB BP P w non-stress HISTORY: . Vaginal bleeding . COMPARISON: None. TECHNIQUE: Grayscale and color imaging was performed FINDINGS: There is evidence of an intrauterine in the cephalic presentation with a heart rate of 127. Amniotic fluid index is 18.2 cm. motion 2, feta l tone 2, breathing 2, and fluid volume 2 for a score of 8/8. U S/US OB BPP w non-stress IMPRESSION: 1. Intrauterine preg kashmir in the cephalic presentation with a heart rate of 127. 2. Biophysical profi le 8/8. Electronically authenticated by: NATO LINDER Date: 05/13/2024 17:59 Dictated By: Donovan Linder M.D. Signed By: 05/13/241801 DD/ 58 TD/TT: Salesperson Furs: US OB BPP w non-stress Reviewed date:06/20/2024 03:43:53 PM Interpretation: Performing Lab: Notes/Report: Source Facility: [place] [address] Ultrasound Report Signed Patient: MARIA DE JESUS RUIZ MR#: [id number] : 1985 Acct:[id number] Age/Sex: 39 / F ADM Date: 05/17/24 Loc: [facility] 250- Attending Dr: Makenzie Recinos D.O. Ordering Physician: Liza Duque Date of Service: 05/17/24 Procedure(s): US OB BPP w non-stress Accession Number(s): [id number] cc: Liza Duque; KIMBERLYN XIE [place] [phone] Patient Name: MARIA DE JESUS RUIZ MRN: [id number] date: 1985 Sex: F Assigned Patient Location: [facility] Current Patient Location: [facility] Accession/Order Number: [id number] Exam Date: 05/17/2024 13:11 Report Date: 05/17/2024 [...] Dictated By: Ray Lee M.D. Signed By: 05/17/241357 DD/ 54 TD/TT: Salesperson Furs: [place] [address] Ultrasound Report Signed Patient: MARIA DE JESUS RUIZ MR#: [id number] : 1985 Acct:[id number] Age/Sex: 39 / F ADM Date: 05/17/24 Loc: [facility] 250-[address]: Makenzie Recinos D.O. Ordering Physician: Liza Duque Date of Service: 05/17/24 Procedure(s): US OB BPP w non-stress Accession Number(s): [id number] cc: Liza Duque; KIMBERLYN XIE [place] [phone] Patient Name: MARIA DE JESUS RUIZ MRN: [id number] date: 1985 Sex: F Assigned Patient Location: [facility] Current Patient Loca tion: [facility] Accession/Order Numb er: [id number] Exam Date: 05/17/2024 13:11 Report Date: 05/17/2024 13:55 At the request of: LIZA DUQUE Procedure: US OB fet al BPP w non-stress EXAMINATION: US OB f etal BPP w non-stress HISTORY:GESTATIONAL DIABETES MELLITUS O24.419 COMPARISON: Ultrasou nd OB biophysical 05/13/2024 TECHNIQUE: Ultrasoun d biophysical profile was performed in the radiology department. BREATHING MOVEMENTS: 2 GROSS BODY MOVEMENTS: 2 TONE: 2 QUALITATIVE AMNIOTIC FLUID VOLUME: 2 PRESENTATION: CEPHALIC HEART RATE: 16 1.68 bpm AMNIOTIC FLUID VOLUM E: 16.61 cm GESTATIONAL AGE: 34 weeks 3 days U S/US OB BPP w non-stress IMPRESSION: Total biophysical pr ofile score: 8 Electronically authenticated by: RAY LEE Date: 05/17/2024 13:55 Dictated By: Ray Lee M.D. Signed By: 05/17/24 1358 DD/ 54 TD/TT: Salesperson Furs: US OB BPP w non-stress Reviewed date:06/20/2024 03:43:32 PM Interpretation: Performing Lab: Notes/Report: Source Facility: [place] [address] Ultrasound Report Signed Patient: MARIA DE JESUS RUIZ MR#: [id number] : 1985 Acct:[id number] Age/Sex: 39 / F ADM Date: 05/24/24 Loc: [facility] 250-[address]: Liza Duque Ordering Physician: Liza Duque Date of Service: 05/24/24 Procedure(s): US OB BPP w non-stress Accession Number(s): [id number] cc: Liza Duque; KIMBERLYN XIE [place] [address] Patient Name: MARIA DE JESUS RUIZ MRN: [id number] date: 1985 Sex: F Assigned Patient Location: [facility] Current Patient Location: [facility] Accession/Order Number: [id number] Exam Date: 05/24/2024 13:01 Report Date: 05/24/2024 [...] Butterfield M.D. Signed By: 05/24/24 1337 DD/ 33 TD/TT: Salesperson Furs: [place] [address] Ultrasound Report Signed Patient: MARIA DE JESUS RUIZ MR#: [id number] : 1985 Acct:[id number] Age/Sex: 39 / F ADM Date: 05/24/24 Loc: [facility] 250-[address]: Liza Duque Ordering Physician: Liza Duque Date of Service: 05/24/24 Procedure(s): US OB BPP w non-stress Accession Number(s): [id number] cc: Liza Duque; KIMBERLYN XIE [place] [address] Patient Name: MARIA DE JESUS RUIZ MRN: [id number] date: 1985 Sex: F Assigned Patient Location: [facility] Current Patient Loca tion: [facility] Accession/Order Numb er: [id number] Exam Date: 05/24/2024 13:01 Report Date: 05/24/2024 13:34 At the request of: LIZA DUQUE Procedure: US OB fet al BPP w non-stress EXAMINATION: US OB f etal BPP w non-stress HISTORY: ELEVATED BL OOD PRESSURE O16.3 COMPARISON: No relev ant comparison available. TECHNIQUE: Ultrasoun d biophysical profile was performed in the radiology department. non-reactive stress testing was performed by nursing staff in the birthing center. FINDINGS: BREATHING MOVEMENTS: 2 GROSS BODY MOVEMENTS: 2 TONE: 2 QUALITATIVE AMNIOTIC FLUID VOLUME: 2 PRESENTATION: CEPHALIC HEART RATE: 14 3.62 bpm AMNIOTIC FLUID VOLUM E: 14.6 cm GESTATIONAL AGE: 35 weeks 3 days U S/US OB BPP w non-stress IMPRESSION: Total biophysical pr ofile score: 8 Electronically authenticated by: NATO BUTTERFIELD Date: 05/24/2024 13:34 Dictated By: Jero Butterfield M.D. Signed By: 05/24/24 1337 DD/ 133 TD/TT: Salesperson Furs: CBC AUTO DIFF Reviewed date:05/31/2024 09:06:40 AM Interpretation: Performing Lab: Notes/Report: [facility] , White Blood Count 7.4 4.0-11.0 10 3/uL Red Blood Count 3.75 4.20-5.40 10 6/uL Hemoglobin 10.9 12.0-16.0 g/dL Hematocrit 33.4 36.0-48.0 % Mean Corpuscular Volume 89.1 81.0-99.0 fL Mean Corpuscular Hemoglobin 29.1 26.7-34.0 pg Mean Corpuscular HGB Conc 32.6 29.9-35.2 g/dL Red Cell Distribution Width 13.2 11.0-15.0 % Platelet Count 269 150-450 10 3/uL Mean Platelet Volume 11.2 9.5-13.5 fL Neutrophils Percent Auto 72.3 43.0-75.0 % Lymphocytes Percent Auto 20.7 20.5-60.0 % Monocytes Percent Auto 5.8 1.7-12.0 % Eosinophils Percent Auto 0.5 0.9-7.0 % Basophils Percent Auto 0.3 0.2-2.0 % Immature Granulocytes Pct Auto 0.4 0.0-0.5 % Neutrophils Absolute Auto 5.4 1.4-6.5 10 3/uL Lymphocytes Absolute Auto 1.5 1.2-3.8 10 3/uL Monocytes Absolute Auto 0.4 0.3-0.8 10 3/uL Eosinophils Absolute Auto 0.0 0.0-0.7 10 3/uL Basophils Absolute Auto 0.0 0.0-0.1 10 3/uL Immature Granulocytes Abs Auto 0.03 0.00-0.03 10 3/uL Performing Lab: see note ML - [facility] LB LAB TESTING Reviewed date:06/10/2024 08:17:28 AM Interpretation: Performing Lab: Notes/Report: [id number] Group B Streptococcus Colonization Detection Culture With Re [facility] , Miscellaneous Test COMMENT . Test Ordered: [id number] Strep Gp B Culture+Rflx Strep Gp B Culture+Rflx Negative CB Reference Range: Negative Centers for Disease Control and Prevention (CDC) and [place] [employer] Gynec[employer] (ACOG) guidelines for prevention of group B streptococcal (GBS) disease specify co-collection of a vaginal and rectal swab specimen to maximize sensitivity of GBS detection. Per the CDC and ACOG, swabbing both the lower vagina and rectum substantially increases the yield of detection compared with sampling the vagina alone. Penicillin G, ampicillin, or cefazolin are indicated for intrapartum prophylaxis of GBS colonization. Reflex susceptibility testing should be performed prior to use of clindamycin only on GBS isolates from penicillin- allergic women who are considered a high risk for anaphylaxis. Treatment with vancomycin without additional testing is warranted if resistance to clindamycin is noted. Performed at: [facility] [address] [id number] Microfilm Processor: Moose Pate PhD, Phone: [phone] Performing Lab: see note - [facility] LB US OB BPP w non-stress Reviewed date:06/20/2024 03:43:04 PM Interpretation: Performing Lab: Notes/Report: Source Facility: [place] [address] Ultrasound Report Signed Patient: MARIA DE JESUS RUIZ MR#: [id number] : 1985 Acct:[id number] Age/Sex: 39 / F ADM Date: Loc: [facility] 250- Attending Dr: Makenzie Recinos D.O. Ordering Physician: Makenzie Recinos D.O. Date of Service: 05/29/24 Procedure(s): US OB BPP w non-stress Accession Number(s): [id number] cc: KIMBERLYN XIE ; Makenzie Recinos D.O. [place] [address] Patient Name: MARIA DE JESUS RUIZ MRN: [id number] date: 1985 Sex: F Assigned Patient Location: [facility] Current Patient Location: Accession/Order Number: [id number] Exam Date: 05/29/2024 15:40 Report Date: 05/30/2024 06:19 At the request of: MAKENZIE RECINOS Procedure: [...] M.D. Signed By: 05/30/24621 DD/ 8 TD/TT: Salesperson Furs: [place] [address] Ultrasound Report Signed Patient: MARIA DE JESUS RUIZ MR#: [id number] : 1985 Acct:[id number] Age/Sex: 39 / F ADM Date: Loc: [facility] Attending Dr: Makenzie Recinos D.O. Ordering Physician: Makenzie Recinos D.O. Date of Service: 05/29/24 Procedure(s): US OB BPP w non-stress Accession Number(s): [id number] cc: KIMBERLYN XIE ; Makenzie Recinos D.O. [facility] [place] [id number] Patient Name: MARIA DE JESUS RUIZ MRN: [id number] date: 1985 Sex: F Assigned Patient Location: [facility] Current Patient Location: Accession/Order Numb er: [id number] Exam Date: 05/29/2024 15:40 Report Date: 05/30/2024 06:19 At the request of: MAKENZIE RECINOS Procedure: US OB fet al BPP w non-stress EXAMINATION: US OB f etal BPP w non-stress HISTORY: PIH workup COMPARISON: No relev ant comparison available. TECHNIQUE: Ultrasoun d biophysical profile was performed in the radiology department. non-reactive stress testing was performed by nursing staff in the birthing center. FINDINGS: BREATHING MOVEMENTS: 2 GROSS BODY MOVEMENTS: 2 TONE: 2 QUALITATIVE AMNIOTIC FLUID VOLUME: 2 PRESENTATION: CEPHALIC HEART RATE: 14 0.63 bpm AMNIOTIC FLUID VOLUM E: 20.3 cm GESTATIONAL AGE: 36 weeks 1 day S/US OB BPP w non-stress IMPRESSION: Total biophysical pr ofile score: 8 Electronically authenticated by: NATO BUTTERFIELD Date: 05/30/2024 06:19 Dictated By: Jero Butterfield M.D. Signed By: 05/30/24621 DD/ 8 TD/TT: Salesperson Furs: US OB BPP w non-stress Reviewed date:06/20/2024 03:43:11 PM Interpretation: Performing Lab: Notes/Report: Source Facility: [place] [address] Ultrasound Report Signed Patient: MARIA DE JESUS RUIZ MR#: [id number] : 1985 Acct:[id number] Age/Sex: 39 / F ADM Date: 05/31/24 Loc: [place] [address]: Liza Duque Ordering Physician: Liza Duque Date of Service: 05/31/24 Procedure(s): US OB BPP w non-stress Accession Number(s): [id number] cc: Liza Duque; KIMBERLYN XIE [place] [address] Patient Name: MARIA DE JESUS RUIZ MRN: [id number] date: 1985 Sex: F Assigned Patient Location: [facility] Current Patient Location: [facility] Accession/Order Number: [id number] Exam Date: 05/31/2024 13:15 Report Date: 05/31/2024 [...] Signed By: 05/31/24 1357 DD/ 1355 TD/TT: Salesperson Furs: [place] [address] Ultrasound Report Signed Patient: MARIA DE JESUS RUIZ MR#: [id number] : 1985 Acct:[id number] Age/Sex: 39 / F ADM Date: 05/31/24 Loc: [facility] 250-[address]: Liza Duque Ordering Physician: Liza Duque Date of Service: 05/31/24 Procedure(s): US OB BPP w non-stress Accession Number(s): [id number] cc: Liza Duque; KIMBERLYN XIE [place] [id number] Patient Name: MARIA DE JESUS RIUZ MRN: [id number] date: 1985 Sex: F Assigned Patient Location: [facility] Current Patient Loca tion: [facility] Accession/Order Numb er: [id number] Exam Date: 05/31/2024 13:15 Report Date: 05/31/2024 13:55 At the request of: LIZA DUQUE Procedure: US OB fet al BPP w non-stress EXAMINATION: US OB f etal BPP w non-stress HISTORY: ELEVATED BL OOD PRESSURE O16.3 COMPARISON: No relev ant comparison available. TECHNIQUE: Ultrasoun d biophysical profile was performed in the radiology department. non-reactive stress testing was performed by nursing staff in the birthing center. FINDINGS: BREATHING MOVEMENTS: 2 GROSS BODY MOVEMENTS: 2 TONE: 2 QUALITATIVE AMNIOTIC FLUID VOLUME: 2 PRESENTATION: CEPHALIC HEART RATE: 13 3.66 bpm AMNIOTIC FLUID VOLUM E: 17.0 GESTATIONAL AGE: 36 weeks 3 days U S/US OB BPP w non-stress IMPRESSION: Total biophysical pr ofile score: 8 Electronically authenticated by: NATO BUTTERFIELD Date: 05/31/2024 13:55 Dictated By: Jero Butterfield M.D. Signed By: 05/31/24 1357 DD/ 54 TD/TT: Salesperson Furs: CBC AUTO DIFF Reviewed date:06/10/2024 08:17:28 AM Interpretation: Performing Lab: Notes/Report: [facility] , White Blood Count 7.0 4.0-11.0 10 3/uL Red Blood Count 4.07 4.20-5.40 10 6/uL Hemoglobin 11.7 12.0-16.0 g/dL Hematocrit 35.4 36.0-48.0 % Mean Corpuscular Volume 87.0 81.0-99.0 fL Mean Corpuscular Hemoglobin 28.7 26.7-34.0 pg Mean Corpuscular HGB Conc 33.1 29.9-35.2 g/dL Red Cell Distribution Width 13.2 11.0-15.0 % Platelet Count 278 150-450 10 3/uL Mean Platelet Volume 12.0 9.5-13.5 fL Neutrophils Percent Auto 70.5 43.0-75.0 % Lymphocytes Percent Auto 24.0 20.5-60.0 % Monocytes Percent Auto 4.4 1.7-12.0 % Eosinophils Percent Auto 0.6 0.9-7.0 % Basophils Percent Auto 0.1 0.2-2.0 % Immature Granulocytes Pct Auto 0.4 0.0-0.5 % Neutrophils Absolute Auto 4.9 1.4-6.5 10 3/uL Lymphocytes Absolute Auto 1.7 1.2-3.8 10 3/uL Monocytes Absolute Auto 0.3 0.3-0.8 10 3/uL Eosinophils Absolute Auto 0.0 0.0-0.7 10 3/uL Basophils Absolute Auto 0.0 0.0-0.1 10 3/uL Immature Granulocytes Abs Auto 0.03 0.00-0.03 10 3/uL Performing Lab: see note ML - [facility] UA RANDOM W or MICROSCOPIC Reviewed date:06/10/2024 08:17:28 AM Interpretation: Performing Lab: Notes/Report: [facility] , Color Urine YELLOW YELLOW Clarity Urine CLEAR CLEAR Specific Terrell Urine 1.025 1.005-1.025 pH Urine 6.0 5.0-9.0 Protein Urine TRACE NEG/TRACE mg/dL Glucose Urine UA NEGATIVE NEGATIVE mg/dL Bilirubin Urine NEGATIVE NEGATIVE Ketones Urine 15 NEGATIVE mg/dL Blood Urine NEGATIVE NEGATIVE Nitrite Urine NEGATIVE NEGATIVE Urobilinogen Urine 0.2 0.2-1.0 EU/dL Leukocyte Esterase Urine SMALL NEGATIVE WBC Urine 5-10 NONE SEEN #/HPF RBC Urine NONE SEEN 0-2 #/HPF Bacteria Urine LARGE NONE SEEN #/HPF Mucus Urine NONE SEEN NONE SEEN Squamous Epithelial Cell Urine MANY NONE/RARE #/LPF Performing Lab: see note ML - [facility] LB CBC AUTO DIFF Reviewed date:06/10/2024 08:17:28 AM Interpretation: Performing Lab: Notes/Report: [facility] , White Blood Count 9.3 4.0-11.0 10 3/uL Red Blood Count 3.73 4.20-5.40 10 6/uL Hemoglobin 10.7 12.0-16.0 g/dL Hematocrit 33.2 36.0-48.0 % Mean Corpuscular Volume 89.0 81.0-99.0 fL Mean Corpuscular Hemoglobin 28.7 26.7-34.0 pg Mean Corpuscular HGB Conc 32.2 29.9-35.2 g/dL Red Cell Distribution Width 13.3 11.0-15.0 % Platelet Count 244 150-450 10 3/uL Mean Platelet Volume 11.7 9.5-13.5 fL Neutrophils Percent Auto 64.0 43.0-75.0 % Lymphocytes Percent Auto 28.8 20.5-60.0 % Monocytes Percent Auto 6.2 1.7-12.0 % Eosinophils Percent Auto 0.6 0.9-7.0 % Basophils Percent Auto 0.2 0.2-2.0 % Immature Granulocytes Pct Auto 0.2 0.0-0.5 % Neutrophils Absolute Auto 5.9 1.4-6.5 10 3/uL Lymphocytes Absolute Auto 2.7 1.2-3.8 10 3/uL Monocytes Absolute Auto 0.6 0.3-0.8 10 3/uL Eosinophils Absolute Auto 0.1 0.0-0.7 10 3/uL Basophils Absolute Auto 0.0 0.0-0.1 10 3/uL Immature Granulocytes Abs Auto 0.02 0.00-0.03 10 3/uL Performing Lab: see note ML - [facility] CPK Reviewed date:10/22/2024 08:58:52 AM Interpretation: Performing Lab: Notes/Report: [facility] , Creatine Kinase 38 26-192 U/L Performing Lab: see note ML - [facility] LB DRUG SCREEN RAPID (URINE) Reviewed date:10/22/2024 08:58:52 AM Interpretation: Performing Lab: Notes/Report: [facility] , Cannabinoid Screen Urine NEGATIVE NEGATIVE Phencyclidine Screen Urine NEGATIVE NEGATIVE Cocaine Screen Urine NEGATIVE NEGATIVE Methamphetamines Screen Urine NEGATIVE NEGATIVE Opiate Screen Urine NEGATIVE NEGATIVE Amphetamine Screen Urine NEGATIVE NEGATIVE Benzodiazepines Screen Urine NEGATIVE NEGATIVE Tricyclic Antidepressant Urine NEGATIVE NEGATIVE Methadone Screen Urine NEGATIVE NEGATIVE Barbiturates Screen Urine NEGATIVE NEGATIVE Oxycodone Screen Urine NEGATIVE NEGATIVE Buprenorphine Screen Urine NEGATIVE NEGATIVE DRUG CLASS TEST SYSTEM CUT-OFF CONCENTRATIONS ARE FOLLOWS: AMP (Amphetamine): 500 ng/mL BAR (Barbiturates): 200 ng/mL BZO (Benzodiazepines): 150 ng/mL BUP (Buprenorphine): 10 ng/mL GABRIEL (Cocaine): 150 ng/mL mAMP (Methamphetamine): 500 ng/mL MTD (Methadone): 200 ng/mL OPI (Opiates): 100 ng/mL OXY (Oxycodone): 100 ng/mL PCP (Phencyclidine): 25 ng/mL THC (Cannabinoids): 50 ng/mL TCA (Trycyclic Antidepressants): 300 ng/mL Performing Lab: see note ML - [facility] LB INFLUENZA A AND B AG Reviewed date:10/22/2024 08:58:52 AM Interpretation: Performing Lab: Notes/Report: [facility] , Influenza Virus A Antigen Negative Negative for Flu A protein antigen. Infection due to Flu A cannot be ruled out. Flu A antigen in the sample may be below the detection limit of the test. Influenza Virus B Antigen Negative Negative for Flu B protein antigen. Infection due to Flu B cannot be ruled out. Flu B antigen in the sample may be below the detection limit of the test. Performing Lab: see note ML - [facility] LB LACTATE or LACTIC ACID Reviewed date:10/22/2024 08:58:52 AM Interpretation: Performing Lab: Notes/Report: [facility] , Lactate/Lactic Acid 1.2 0.4-2.0 mmol/L Performing Lab: see note - [facility] LB MAGNESIUM Reviewed date:10/22/2024 08:58:52 AM Interpretation: Performing Lab: Notes/Report: [facility] , Magnesium 2.0 1.8-2.4 mg/dL Performing Lab: see note ML - [facility] LB PROF 14(COMP METB) Reviewed date:10/22/2024 08:58:52 AM Interpretation: Performing Lab: Notes/Report: [facility] , Sodium 139 136-145 mmol/L Potassium 4.3 3.5-5.1 mmol/L Chloride 101 98-107 mmol/L Carbon Dioxide 25.5 21.0-32.0 mmol/L Anion Gap 16.8 Glucose 120 74-106 mg/dL Blood Urea Nitrogen 10.0 7.0-18.0 mg/dL Creatinine 0.86 0.55-1.02 mg/dL Estimated GFR ( Bekah >60 >=60 mL/min/1.73m 2 Estimated GFR (Non- Aruna >60 >=60 mL/min/1.73m 2 BUN Creatinine Ratio 11.6 Calcium 8.7 8.5-10.1 mg/dL Bilirubin Total 0.3 0.2-1.0 mg/dL Aspartate Amino Transferase 44 15-37 U/L Alanine Aminotransferase 90 14-59 U/L Alkaline Phosphatase 146 46-116 U/L Total Protein 8.3 6.4-8.2 g/dL Albumin Level 3.4 3.4-5.0 g/dL Globulin 4.9 Albumin Globulin Ratio 0.7 Performing Lab: see note ML - [facility] LB Blood Culture 1 Reviewed date:10/28/2024 09:00:02 AM Interpretation: Performing Lab: Notes/Report: [facility] , Blood Culture 1 See Below For Report Blood Culture 1 NG5D NO GROWTH AT 5 DAYS.^NO GROWTH AT 5 DAYS. Performing Lab: see note ML - [facility] LB Blood Culture 2 Reviewed date:10/28/2024 09:00:02 AM Interpretation: Performing Lab: Notes/Report: [facility] , Blood Culture 2 See Below For Report Blood Culture 2 NG5D NO GROWTH AT 5 DAYS.^NO GROWTH AT 5 DAYS. Performing Lab: see note ML - [facility] LB Prothrombin Time INR Reviewed date:10/22/2024 08:58:52 AM Interpretation: Performing Lab: Notes/Report: [facility] , Prothrombin Time 10.5 9.0-11.6 sec INR 0.99 DESIRED INR: 2.0-3.0 CONDITIONS NOT LISTED BELOW 2.5-3.5 FOR PROSTHETIC HEART VALVE REPLACEMENT 2.5-3.5 RECURRENT THROMBOSIS Performing Lab: see note ML - [facility] LB Troponin I High Sensitivity Reviewed date:10/22/2024 08:58:52 AM Interpretation: Performing Lab: Notes/Report: [facility] , Troponin I High Sensitivity <4.0 4.0-51.3 pg/mL CUT-OFF POINTS HAVE BEEN ESTABLISHED BASED ON THE FOURTH UNIVERSAL DEFINITION OF MYOCARDIAL INFARCTION. THE UPPER REFERENCE LIMIT (URL) OF TROPONIN, DEFINED THE 99TH PERCENTILE OF cTnI DISTRIBUTION IN A REFERENCE POPULATION, HAS BEEN CONFIRMED THE DECISION THRESHOLD FOR [place] DIAGNOSIS. 99TH PERCENTILE = 51.4 PG/ML NOTE: HIGH-SENSITIVITY TROPONIN ASSAY IS NOT INTENDED TO BE USED IN ISOLATION BUT SHOULD BE INTERPRETED IN CONJUNCTION WITH OTHER DIAGNOSTIC AND CLINICAL INFORMATION. Performing Lab: see note ML - [facility] LB Venous Blood Gas Reviewed date:10/22/2024 08:58:52 AM Interpretation: Performing Lab: Notes/Report: [facility] , pH VBG 7.385 7.330-7.430 PCO2 VBG 40.9 40.0-52.0 mmHg Performing Lab: see note ML - [facility] SARS-CoV-2 Ag* Reviewed date:10/22/2024 08:58:52 AM Interpretation: Performing Lab: Notes/Report: [facility] , SARS-CoV-2 Ag NEGATIVE NEGATIVE This test has not been FDA cleared or approved, but has been authorized by the FDA under an Emergency Use Authorization (EUA) for use by authorized laboratories certified under CLIA that meet the requirements to perform moderate or high complexity testing. This test has been authorized only for the detection of proteins from SARS-CoV-2, not for any other viruses or pathogens. The emergency use of this test is authorized for the duration of the declaration that circumstances exist justifying the authorization of emergency use of in vitro diagnostic tests for detection and/or diagnosis of Covid-19 under section 564(b)(1) of the Act, 21 U.S.C. 360bbb-3(b)(1), unless the declaration is terminated or authorization is revoked sooner. Performing Lab: see note ML - [facility] LB Pleasants Screen* Reviewed date:10/22/2024 08:58:52 AM Interpretation: Performing Lab: Notes/Report: [facility] , Pleasants Screen NEGATIVE NEGATIVE Performing Lab: see note ML - [facility] LB HCG Qualitative Urine Reviewed date:10/22/2024 08:58:52 AM Interpretation: Performing Lab: Notes/Report: [facility] , HCG Qualitative Urine* NEGATIVE NEGATIVE Performing Lab: see note ML - [facility] LB UA Micro, reflex to culture Reviewed date:10/22/2024 08:58:52 AM Interpretation: Performing Lab: Notes/Report: [facility] , Color Urine LT. YELLOW YELLOW Clarity Urine CLEAR CLEAR Specific Terrell Urine 1.015 1.005-1.025 pH Urine 7.0 5.0-9.0 Protein Urine 30 NEG/TRACE mg/dL Glucose Urine UA NEGATIVE NEGATIVE mg/dL Bilirubin Urine NEGATIVE NEGATIVE Ketones Urine NEGATIVE NEGATIVE mg/dL Blood Urine SMALL NEGATIVE Nitrite Urine NEGATIVE NEGATIVE Urobilinogen Urine 1.0 0.2-1.0 EU/dL Leukocyte Esterase Urine TRACE NEGATIVE WBC Urine 10-20 NONE SEEN #/HPF RBC Urine 2-5 0-2 #/HPF Bacteria Urine MODERATE NONE SEEN #/HPF Mucus Urine NONE SEEN NONE SEEN Squamous Epithelial Cell Urine FEW NONE/RARE #/LPF Crystals Seen? None Seen None Seen #/HPF Cast Seen? NONE SEEN NONE SEEN #/LPF Urine Culture Indicated YES-[facility] Performing Lab: see note ML - [facility] Urine Culture - [facility] Reviewed date:10/24/2024 12:01:46 PM Interpretation: Performing Lab: Notes/Report: [facility] Urine Culture - [facility] See Below For Report Urine Culture - [facility] Testing performed at [facility] O:ESCCOL Isolated Urine Culture - [facility] [place] Count Organism: 1.1 Antibiotic Interpretation CHUY Status Urine Culture - [facility] [address], [place] [address] Urine Culture - [facility] Testing performed at [facility] O:ESCCOL Isolated Urine Culture - [facility] [place] Count Organism: 1.1 Antibiotic Interpretation CHUY Status Urine Culture - [facility] See Below For Report Urine Culture - [facility] Testing performed at [facility] O:ESCCOL Isolated Urine Culture - [facility] [place] Count Organism: 1.1 Antibiotic Interpretation CHUY Status Urine Culture - [facility] See Below For Report Urine Culture - [facility] Testing performed at [facility] O:ESCCOL Isolated Urine Culture - [facility] [place] Count Organism: 1.1 Antibiotic Interpretation CHUY Status Urine Culture - [facility] >100,000 Urine Culture - [facility] Testing performed at [facility] O:ESCCOL Isolated Urine Culture - [facility] [place] Count Organism: 1.1 Antibiotic Interpretation CHUY Status Urine Culture - [facility] See Below For Report Urine Culture - [facility] Testing performed at [facility] O:ESCCOL Isolated Urine Culture - [facility] [place] Count Organism: 1.1 Antibiotic Interpretation CHUY Status Urine Culture - [facility] Amikacin S F Urine Culture - [facility] Testing performed at [facility] O:ESCCOL Isolated Urine Culture - [facility] [place] Count Organism: 1.1 Antibiotic Interpretation CHUY Status Urine Culture - [facility] Amoxicillin/Clavula kiah S F Urine Culture - [facility] Testing performed at [facility] O:ESCCOL Isolated Urine Culture - [facility] [place] Count Organism: 1.1 Antibiotic Interpretation CHUY Status Urine Culture - [facility] Ampicillin S F Urine Culture - [facility] Testing performed at [facility] O:ESCCOL Isolated Urine Culture - [facility] [place] Count Organism: 1.1 Antibiotic Interpretation CHUY Status Urine Culture - [facility] Aztreonam S F Urine Culture - [facility] Testing performed at [facility] O:ESCCOL Isolated Urine Culture - [facility] [place] Count Organism: 1.1 Antibiotic Interpretation CHUY Status Urine Culture - [facility] Ceftazidime S F Urine Culture - [facility] Testing performed at [facility] O:ESCCOL Isolated Urine Culture - [facility] [place] Count Organism: 1.1 Antibiotic Interpretation CHUY Status Urine Culture - [facility] Ceftazidime/Avibactam S F Urine Culture - [facility] Testing performed at [facility] O:ESCCOL Isolated Urine Culture - [facility] [place] Count Organism: 1.1 Antibiotic Interpretation CHUY Status Urine Culture - [facility] Ceftolozane/Tazobac buckner S F Urine Culture - [facility] Testing performed at [facility] O:ESCCOL Isolated Urine Culture - [facility] [place] Count Organism: 1.1 Antibiotic Interpretation CHUY Status Urine Culture - [facility] Ciprofloxacin S F Urine Culture - [facility] Testing performed at [facility] O:ESCCOL Isolated Urine Culture - [facility] [place] Count Organism: 1.1 Antibiotic Interpretation CHUY Status Urine Culture - [facility] Ertapenem S F Urine Culture - [facility] Testing performed at [facility] O:ESCCOL Isolated Urine Culture - [facility] [place] Count Organism: 1.1 Antibiotic Interpretation CHUY Status Urine Culture - [facility] Gentamicin S F Urine Culture - [facility] Testing performed at [facility] O:ESCCOL Isolated Urine Culture - [facility] [place] Count Organism: 1.1 Antibiotic Interpretation CHUY Status Urine Culture - [facility] Levofloxacin S F Urine Culture - [facility] Testing performed at [facility] O:ESCCOL Isolated Urine Culture - [facility] [place] Count Organism: 1.1 Antibiotic Interpretation CHUY Status Urine Culture - [facility] Meropenem S F Urine Culture - [facility] Testing performed at [facility] O:ESCCOL Isolated Urine Culture - [facility] [place] Count Organism: 1.1 Antibiotic Interpretation CHUY Status Urine Culture - [facility] Meropenem/Vaborbact am S F Urine Culture - [facility] Testing performed at [facility] O:ESCCOL Isolated Urine Culture - [facility] [place] Count Organism: 1.1 Antibiotic Interpretation CHUY Status Urine Culture - [facility] Nitrofurantoin S F Urine Culture - [facility] Testing performed at [facility] O:ESCCOL Isolated Urine Culture - [facility] [place] Count Organism: 1.1 Antibiotic Interpretation CHUY Status Urine Culture - [facility] Tetracycline S F Urine Culture - [facility] Testing performed at [facility] O:ESCCOL Isolated Urine Culture - [facility] [place] Count Organism: 1.1 Antibiotic Interpretation CHUY Status Urine Culture - [facility] Tigecycline S F Urine Culture - [facility] Testing performed at [facility] O:ESCCOL Isolated Urine Culture - [facility] [place] Count Organism: 1.1 Antibiotic Interpretation CHUY Status Urine Culture - [facility] Tobramycin S F Urine Culture - [facility] Testing performed at [facility] O:ESCCOL Isolated Urine Culture - [facility] [place] Count Organism: 1.1 Antibiotic Interpretation CHUY Status Urine Culture - [facility] Ampicillin/Sulbactam S F Urine Culture - [facility] Testing performed at [facility] O:ESCCOL Isolated Urine Culture - [facility] [place] Count Organism: 1.1 Antibiotic Interpretation CHUY Status Urine Culture - [facility] Cefazolin S F Urine Culture - [facility] Testing performed at [facility] O:ESCCOL Isolated Urine Culture - [facility] [place] Count Organism: 1.1 Antibiotic Interpretation CHUY Status Urine Culture - [facility] Cefepime S F Urine Culture - [facility] Testing performed at [facility] O:ESCCOL Isolated Urine Culture - [facility] [place] Count Organism: 1.1 Antibiotic Interpretation CHUY Status Urine Culture - [facility] Ceftriaxone S F Urine Culture - [facility] Testing performed at [facility] O:ESCCOL Isolated Urine Culture - [facility] [place] Count Organism: 1.1 Antibiotic Interpretation CHUY Status Urine Culture - [facility] Cefuroxime S F Urine Culture - [facility] Testing performed at [facility] O:ESCCOL Isolated Urine Culture - [facility] [place] Count Organism: 1.1 Antibiotic Interpretation CHUY Status Urine Culture - [facility] Piperacillin/Tazoba ctam S F Urine Culture - [facility] Testing performed at [facility] O:ESCCOL Isolated Urine Culture - [facility] [place] Count Organism: 1.1 Antibiotic Interpretation CHUY Status Urine Culture - [facility] Trimethoprim/Sulfa S F Urine Culture - [facility] Testing performed at [facility] O:ESCCOL Isolated Urine Culture - [facility] [place] Count Organism: 1.1 Antibiotic Interpretation CHUY Status Performing Lab: see note ML - [facility] LB SEE REPORT - Signal Operator Id information not found for OBX-specific video game producer legend ECG 12 lead Reviewed date:10/22/2024 08:58:52 AM Interpretation: Performing Lab: Notes/Report: Source Facility: [facility]-[address] [place] [address] [place] [address] Electrocardiograph Report Signed Patient: MARIA DE JESUS RUIZ MR#: [id number] : 1985 Acct:[id number] Age/Sex: 39 / F ADM Date: 10/21/24 Loc: ER Attending Dr: Ordering Physician: Liza Duque Date of Service: 10/21/24 Procedure(s): ECG 12 lead Accession Number(s): [id number] cc: [facility] Test Date: 2024-10-21 Pat Name: MARIA DE JESUS RUIZ Department: Room: - Gender: Female Vendor Analyst: : 1985 Requested By: 0923 Order Number: [id number] Reading MD: OSVALDO BLACKBURN M.D. Measurements Intervals [place] Rate: 126 P: 12 VT: 116 QRS: 22 QRSD: 76 T: 25 QT: 286 QTc: 361 Interpretive Statements 1120 Sinus tachycardia 2210 Short VT interval 9150 abnormal ECG Compared to ECG 12/29/2023 12:43:03 Short VT interval now present Electronically Signed On 10-21-2024 18:28:39 EDT by OSVALDO BLACKBURN M.D. Dictated By: OSVALDO BLACKBURN Signed By: 10/21/24 1829 DD/ 1750 TD/TT: Salesperson Furs: [place] [address] Electrocardiograph Report Signed Patient: MARIA DE JESUS RUIZ MR#: [id number] : 1985 Acct:[id number] Age/Sex: 39 / F ADM Date: 10/21/24 Loc: ER Attending Dr: Ordering Physician: Liza Duque Date of Service: 10/21/24 Procedure(s): ECG 12 lead Accession Number(s): [id number] cc: [facility] Test Date: 2024-10-21 Pat Name: MARIA DE JESUS Hung Department: 85 Room: - Gender: Female Vendor Analyst: : 1985 Requ ested By: 0923 Order Number: [id number] Reading MD: OSVALDO BLACKBURN M.D. Measurements Intervals [place] Rate: 126 P: 12 VT: 116 QRS: 22 QRSD: 76 T: 25 QT: 286 QTc: 361 Interpretive Statements 1120 Sinus tachycardia 2210 Short VT interval 9150 abnormal ECG Compared to ECG 12/29/2023 12:43:03 Short VT interval no w present Electronically Zhanna d On 10-21-2024 18:28:39 EDT by OSVALDO BLACKBURN M.D. Dictated By: OSVALDO BLACKBURN Signed By: 10/21/24 1829 DD/ 7377 TD/TT: Salesperson Furs: CT abdomen pelvis wo con Reviewed date:10/22/2024 08:58:52 AM Interpretation: Performing Lab: Notes/Report: Source Facility: [place] [address] CT Scan Report Signed Patient: MARIA DE JESUS RUIZ MR#: [id number] : 1985 Acct:[id number] Age/Sex: 39 / F ADM Date: 10/21/24 Loc: ER Attending Dr: Ordering Physician: Liza Duque Date of Service: 10/21/24 Procedure(s): CT abdomen pelvis wo con Accession Number(s): [id number] cc: KIMBERLYN XIE [place] [address] Patient Name: MARIA DE JESUS RUIZ MRN: [id number] date: 1985 Sex: F Assigned Patient Location: ER Current Patient Location: ED.MAIN Accession/Order Number: [id number] Exam Date: 10/21/2024 20:33 Report Date: 10/21/2024 20:42 At the request of: LIZA DUQUE Procedure: CT abdomen pelvis wo con CT abdomen pelvis wo con 10/21/2024 8:09 PM SIGNS AND SYMPTOMS: fever elevated liver enzymes TECHNIQUE: Multidetector ct axial images of the abdomen and pelvis were obtained without IV contrast. Multiplanar reformats were performed and reviewed to further define anatomy and possible pathology. CT was performed with one or more of the following dose reduction techniques: Automated exposure control, adjustment of the mA and/or kV according to patient size, or use of iterative reconstruction technique. COMPARISON: 04/27/2025 . FINDINGS: Lower Chest: Within normal limits. ABDOMEN: Liver: The liver is mildly hypoattenuating suggesting hepatic steatosis. Bile Ducts: Normal caliber. Gallbladder: Previously removed Pancreas: Within normal limits. Spleen: Within normal limits. Adrenals: Within normal limits. Kidneys: There is left-sided perinephric fat stranding which is nonspecific. Pyelonephritis is not excluded however. Pelvis: Reproductive Organs: No pelvic masses. Ureters: Within normal limits. Bladder: Within normal limits. Bowel: Normal caliber. Mesenteric Lymph Nodes: No enlarged mesenteric lymph nodes. Peritoneum: No ascites or free air, no fluid collection. Vessels: within normal limits Retroperitoneum: Within normal limits. Abdominal Wall: Within normal limits. Bones: Within normal limits. CT/CT abdomen pelvis wo con IMPRESSION: No bowel obstruction or obstructive uropathy. There is left-sided perinephric fat stranding which is nonspecific. Pyelonephritis is not excluded however. The liver is mildly hypoattenuating in respect to the spleen suggesting hepatic steatosis. Impression dictated by: Ravi Sierra M.D. 10/21/2024 8:42 PM Dictation Location: [place] [address] Electronically authenticated by: [id number] Y Date: 10/21/2024 20:42 Dictated By: Ravi Sierra M.D. Signed By: 10/21/242043 DD/ 41 TD/TT: Salesperson Furs: [place] [address] CT Scan Report Signed Patient: MARIA DE JESUS RUIZ MR#: [id number] : 1985 Acct:[id number] Age/Sex: 39 / F ADM Date: 10/21/24 Loc: ER Attending Dr: Ordering Physician: Liza Duque Date of Service: 10/21/24 Procedure(s): CT abd omen pelvis wo con Accession Number(s): [id number] cc: KIMBERLYN XIE [place] [id number] Patient Name: MARIA DE JESUS RUIZ MRN: [id number] date: 1985 Sex: F Assigned Patient Location: ER Current Patient Loca tion: ED.MAIN Accession/Order Numb er: [id number] Exam Date: 10/21/2024 20:33 Report Date: 10/21/2024 20:42 At the request of: LIZA DUQUE Procedure: CT abdome n pelvis wo con CT abdomen pelvis wo con 10/21/2024 8:09 PM SIGNS AND SYMPTOMS: fever elevated liver enzymes TECHNIQUE: Multidete ctor ct axial images of the abdomen and pelvis were obtained without IV contrast. Multiplanar reformats were performed and reviewed to further define anatomy and possible pathology. CT was performed with one or more of the following dose reduction techniques: Automated exposure control, adjustment of the mA and/or kV according to patient size, or use of iterative reconstruction technique. COMPARISON: 04/27/2025 . FINDINGS: Lower Chest: Within normal limits. ABDOMEN: Liver: The liver is mildly hypoattenuating suggesting hepatic steatosis. Bile Ducts: Normal caliber. Gallbladder: Previou sly removed Pancreas: Within nor mal limits. Spleen: Within evelia l limits. Adrenals: Within nor mal limits. Kidneys: There is left-sided perinephric fat stranding which is nonspecific. Pyelonephritis is no t excluded however. Pelvis: Reproductive Organs: No pelvic masses. Ureters: Within norm al limits. Bladder: Within norm al limits. Bowel: Normal caliber. Mesenteric Lymph Nod es: No enlarged mesenteric lymph nodes. Peritoneum: No ascit es or free air, no fluid collection. Vessels: within norm al limits Retroperitoneum: Wit hin normal limits. Abdominal Wall: With in normal limits. Bones: Within normal limits. C T/CT abdomen pelvis wo con IMPRESSION: No bowel obstruction or obstructive uropathy. There is left-sided perinephric fat stranding which is nonspecific. Pyelonephritis is no t excluded however. The liver is mildly hypoattenuating in respect to the spleen suggesting hepatic steatosis. Impression dictated by: Ravi Sierra M.D. 10/21/2024 8:42 PM Dictation Location: [place] [address] Electronically authenticated by: [id number] Y Date: 10/21/2024 20:42 Dictated By: Ravi Sierra M.D. Signed By: 10/21/242043 DD/ 41 TD/TT: Salesperson Furs: CT head/brain wo con Reviewed date:10/22/2024 08:58:52 AM Interpretation: Performing Lab: Notes/Report: Source Facility: [facility] [place] [address] [place] [address] CT Scan Report Signed Patient: MARIA DE JESUS RUIZ MR#: [id number] : 1985 Acct:[id number] Age/Sex: 39 / F ADM Date: 10/21/24 Loc: ER Attending Dr: Ordering Physician: Liza Duque Date of Service: 10/21/24 Procedure(s): CT head/brain wo con Accession Number(s): [id number] cc: KIMBERLYN XIE [place] [address] Patient Name: MARIA DE JESUS RUIZ MRN: [id number] date: 1985 Sex: F Assigned Patient Location: ER Current Patient Location: ER Accession/Order Number: [id number] Exam Date: 10/21/2024 19:41 Report Date: 10/21/2024 19:43 At the request of: LIZA DUQUE Procedure: CT head/brain wo con CT head/brain wo con 10/21/2024 7:33 PM SIGNS AND SYMPTOMS: headache w fever TECHNIQUE:Multi-detector CT axial slices of the brain were obtained without IV contrast. CT was performed with one or more of the following dose reduction techniques: Automated exposure control, adjustment of the mA and/or kV according to patient size, or use of iterative reconstruction technique. COMPARISON: None. FINDINGS: There is no shift of the midline structures, acute intracranial bleeding, mass effects, or evidence of acute ischemia. The ventricular system is normal in size. The brainstem and the cerebellum are unremarkable. The visualized intraorbital contents, the visualized paranasal sinuses, and the infratemporal soft tissues show no acute abnormality. The osseous structures in the skull base and the calvarium show no abnormality. CT/CT head/brain wo con IMPRESSION: Normal noncontrasted CT brain. Impression dictated by: Ravi Sierra M.D. 10/21/2024 7:43 PM Dictation Location: [place] [address] Electronically authenticated by: [id number] Y Date: 10/21/2024 19:43 Dictated By: Ravi Sierra M.D. Signed By: 10/21/241945 DD/ 42 TD/TT: Salesperson Furs: [place] [address] CT Scan Report Signed Patient: MARIA DE JESUS RUIZ MR#: [id number] : 1985 Acct:[id number] Age/Sex: 39 / F ADM Date: 10/21/24 Loc: ER Attending Dr: Ordering Physician: Liza Duque Date of Service: 10/21/24 Procedure(s): CT head/brain wo con Accession Number(s): [id number] cc: KIMBERLYN XIE [place] [id number] Patient Name: MARIA DE JESUS RUIZ MRN: [id number] date: 1985 Sex: F Assigned Patient Location: ER Current Patient Loca tion: ER Accession/Order Numb er: [id number] Exam Date: 10/21/2024 19:41 Report Date: 10/21/2024 19:43 At the request of: LIZA DUQUE Procedure: CT head/b rain wo con CT head/brain wo con 10/21/2024 7:33 PM SIGNS AND SYMPTOMS: headache w fever TECHNIQUE:Multi-dete ctor CT axial slices of the brain were obtained without IV contrast. CT was performed with one or more of the following dose reduction techniques: Automate d exposure control, adjustment of the mA and/or kV according to patient size, or use of iterative reconstruction technique. COMPARISON: None. FINDINGS: There is n o shift of the midline structures, acute intracranial bleeding, mass effec ts, or evidence of acute ischemia. The ventricular system is normal in size. T he brainstem and the cerebellum are unremarkable. The visualized intraorbi dayna contents, the visualized paranasal sinuses, and the infratemporal soft tissues show no acute abnormality. The osseous structures in the skull base an d the calvarium show no abnormality. C T/CT head/brain wo con IMPRESSION: Normal noncontrasted CT brain. Impression dictated by: Ravi Sierra M.D. 10/21/2024 7:43 PM Dictation Location: [place] [address] Electronically authenticated by: [id number] Y Date: 10/21/2024 19:43 Dictated By: Ravi Sierra M.D. Signed By: 10/21/241945 DD/ 42 TD/TT: Salesperson Furs: XR chest 1V Reviewed date:10/22/2024 08:58:52 AM Interpretation: Performing Lab: Notes/Report: Source Facility: [place] [address] [place] [address] XRay Report Signed Patient: MARIA DE JESUS RUIZ MR#: [id number] : 1985 Acct:[id number] Age/Sex: 39 / F ADM Date: 10/21/24 Loc: ER Attending Dr: Ordering Physician: Liza Duque Date of Service: 10/21/24 Procedure(s): XR chest 1V Accession Number(s): [id number] cc: Liza Duque; KIMBERLYN XIE [place] [address] Patient Name: MARIA DE JESUS RUIZ MRN: [id number] date: 1985 Sex: F Assigned Patient Location: ER Current Patient Location: ER Accession/Order Number: [id number] Exam Date: 10/21/2024 19:38 Report Date: 10/21/2024 19:41 At the request of: LIZA DUQUE Procedure: XR chest 1V XR chest 1V 10/21/2024 7:33 PM SIGNS AND SYMPTOMS: FEVER PROTOCOL: Frontal radiograph of the chest COMPARISON: 11/06/2019 FINDINGS: The trachea is midline. The heart and mediastinal structures are within normal limits. The lung parenchyma is clear. The bony thorax is intact. XR/XR chest 1V IMPRESSION: No acute cardiopulmonary pathology. Impression dictated by: Ravi Sierra M.D. 10/21/2024 7:41 PM Dictation Location: [place] [address] Electronically authenticated by: [id number] Date: 10/21/2024 19:41 Dictated By: Ravi Sierra M.D. Signed By: 10/21/241942 DD/ 40 TD/TT: Salesperson Furs: [place] [address] XRay Report Signed Patient: MARIAD E JESUS RUIZ MR#: [id number] : 1985 Acct:[id number] Age/Sex: 39 / F ADM Date: 10/21/24 Loc: ER Attending Dr: Ordering Physician: Liza Duque Date of Service: 10/21/24 Procedure(s): XR chest 1V Accession Number(s): [id number] cc: Liza Duque; KIMBERLYN XIE [place] [id number] Patient Name: MARIA DE JESUS RUIZ MRN: [id number] date: 1985 Sex: F Assigned Patient Location: ER Current Patient Loca tion: ER Accession/Order Numb er: [id number] Exam Date: 10/21/2024 19:38 Report Date: 10/21/2024 19:41 At the request of: LIZA DUQUE Procedure: XR chest 1V XR chest 1V 7:33 PM SIGNS AND SYMPTOMS: FEVER PROTOCOL: Frontal radiograph of the chest COMPARISON: 11/06/2019 FINDINGS: The trachea is midli ne. The heart and mediastinal structures are within normal limits. The l jordan parenchyma is clear. The bony thorax is intact. X R/XR chest 1V IMPRESSION: No acute cardiopulmo nary pathology. Impression dictated by: Ravi Sierra M.D. 10/21/2024 7:41 PM Dictation Location: [place] [address] Electronically authenticated by: [id number] Y Date: 10/21/2024 19:41 Dictated By: Ravi Sierra M.D. Signed By: 10/21/241942 DD/ 40 TD/TT: Salesperson Furs: CBC no Diff (Hemogram) Reviewed date:10/22/2024 08:58:52 AM Interpretation: Performing Lab: Notes/Report: [facility] , White Blood Count 15.6 4.0-11.0 10 3/uL Red Blood Count 3.85 4.20-5.40 10 6/uL Hemoglobin 11.8 12.0-16.0 g/dL Hematocrit 36.0 36.0-48.0 % Mean Corpuscular Volume 93.5 81.0-99.0 fL Mean Corpuscular Hemoglobin 30.6 26.7-34.0 pg Mean Corpuscular HGB Conc 32.8 29.9-35.2 g/dL Red Cell Distribution Width 13.8 11.0-15.0 % Platelet Count 251 150-450 10 3/uL Mean Platelet Volume 10.8 9.5-13.5 fL Performing Lab: see note - [facility] LB PROF 14(COMP METB) Reviewed date:10/23/2024 09:12:25 PM Interpretation: Performing Lab: Notes/Report: [facility] , Sodium 140 136-145 mmol/L Potassium 4.3 3.5-5.1 mmol/L Chloride 106 98-107 mmol/L Carbon Dioxide 24.1 21.0-32.0 mmol/L Anion Gap 14.2 Glucose 112 74-106 mg/dL Blood Urea Nitrogen 9.0 7.0-18.0 mg/dL Creatinine 0.78 0.55-1.02 mg/dL Estimated GFR ( Bekah >60 >=60 mL/min/1.73m 2 Estimated GFR (Non- Aruna >60 >=60 mL/min/1.73m 2 BUN Creatinine Ratio 11.5 Calcium 8.0 8.5-10.1 mg/dL Bilirubin Total 0.4 0.2-1.0 mg/dL Aspartate Amino Transferase 28 15-37 U/L Alanine Aminotransferase 72 14-59 U/L Alkaline Phosphatase 116 46-116 U/L Total Protein 6.8 6.4-8.2 g/dL Albumin Level 2.7 3.4-5.0 g/dL Globulin 4.1 Albumin Globulin Ratio 0.7 Performing Lab: see note ML - [facility] LAMOTRIGINE Reviewed date:10/25/2024 08:38:56 AM Interpretation: Performing Lab: Notes/Report: [facility] , Lamotrigine (Lamictal), Serum 2.0 2.0-20.0 ug/mL Detection Limit = 1.0 Performed at: [facility] [address] [id number] Microfilm Processor: Fely Schmitt MD, Phone: [phone] Performing Lab: see note - [facility] LB CBC AUTO DIFF Reviewed date:10/22/2024 08:58:52 AM Interpretation: Performing Lab: Notes/Report: [facility] , White Blood Count 15.1 4.0-11.0 10 3/uL Red Blood Count 3.82 4.20-5.40 10 6/uL Hemoglobin 11.7 12.0-16.0 g/dL Hematocrit 35.3 36.0-48.0 % Mean Corpuscular Volume 92.4 81.0-99.0 fL Mean Corpuscular Hemoglobin 30.6 26.7-34.0 pg Mean Corpuscular HGB Conc 33.1 29.9-35.2 g/dL Red Cell Distribution Width 13.6 11.0-15.0 % Platelet Count 300 150-450 10 3/uL Mean Platelet Volume 10.1 9.5-13.5 fL Neutrophils Percent Auto 75.5 43.0-75.0 % Lymphocytes Percent Auto 14.1 20.5-60.0 % Monocytes Percent Auto 9.4 1.7-12.0 % Eosinophils Percent Auto 0.1 0.9-7.0 % Basophils Percent Auto 0.2 0.2-2.0 % Immature Granulocytes Pct Auto 0.7 0.0-0.5 % Neutrophils Absolute Auto 11.4 1.4-6.5 10 3/uL Lymphocytes Absolute Auto 2.1 1.2-3.8 10 3/uL Monocytes Absolute Auto 1.4 0.3-0.8 10 3/uL Eosinophils Absolute Auto 0.0 0.0-0.7 10 3/uL Basophils Absolute Auto 0.0 0.0-0.1 10 3/uL Immature Granulocytes Abs Auto 0.10 0.00-0.03 10 3/uL Performing Lab: see note ML - [facility] LB Type and Screen Reviewed date:06/10/2024 08:17:28 AM Interpretation: Performing Lab: Notes/Report: [facility] , Blood Type A Positive Antibody Screen NEGATIVE DRUG SCREEN RAPID (URINE) Reviewed date:06/10/2024 08:17:28 AM Interpretation: Performing Lab: Notes/Report: [facility] , Cannabinoid Screen Urine NEGATIVE NEGATIVE Phencyclidine Screen Urine NEGATIVE NEGATIVE Cocaine Screen Urine NEGATIVE NEGATIVE Methamphetamines Screen Urine NEGATIVE NEGATIVE Opiate Screen Urine NEGATIVE NEGATIVE Amphetamine Screen Urine NEGATIVE NEGATIVE Benzodiazepines Screen Urine NEGATIVE NEGATIVE Tricyclic Antidepressant Urine NEGATIVE NEGATIVE Methadone Screen Urine NEGATIVE NEGATIVE Barbiturates Screen Urine NEGATIVE NEGATIVE Oxycodone Screen Urine NEGATIVE NEGATIVE Buprenorphine Screen Urine NEGATIVE NEGATIVE DRUG CLASS TEST SYSTEM CUT-OFF CONCENTRATIONS ARE FOLLOWS: AMP (Amphetamine): 500 ng/mL BAR (Barbiturates): 200 ng/mL BZO (Benzodiazepines): 150 ng/mL BUP (Buprenorphine): 10 ng/mL GABRIEL (Cocaine): 150 ng/mL mAMP (Methamphetamine): 500 ng/mL MTD (Methadone): 200 ng/mL OPI (Opiates): 100 ng/mL OXY (Oxycodone): 100 ng/mL PCP (Phencyclidine): 25 ng/mL THC (Cannabinoids): 50 ng/mL TCA (Trycyclic Antidepressants): 300 ng/mL Performing Lab: see note ML - [facility] LB Box Test Reviewed date:04/29/2024 08:31:00 AM Interpretation: Performing Lab: Notes/Report: URINE CULTURE [facility] BOX Test Sent Out URINE CULTURE --- 04/25/24928 --- BOX Test Sent previously reported as: Y BOX Test Reference Lab [facility] BOX Test Date Sent 04/22/24 BOX Test Result NO GROWTH 2 DAYS Performing Lab: see note ML - [facility] LB UA (CLEAN or CATCH) FOREIGN LANGUAGE PROFESSOR or M ICRO IF IND. Reviewed date:04/23/2024 09:01:31 AM Interpretation: Performing Lab: Notes/Report: [facility] , Color Urine LT. YELLOW YELLOW Clarity Urine CLEAR CLEAR Specific Terrell Urine 1.020 1.005-1.025 pH Urine 6.0 5.0-9.0 Protein Urine NEGATIVE NEG/TRACE mg/dL Glucose Urine UA NEGATIVE NEGATIVE mg/dL Bilirubin Urine NEGATIVE NEGATIVE Ketones Urine NEGATIVE NEGATIVE mg/dL Blood Urine NEGATIVE NEGATIVE Nitrite Urine NEGATIVE NEGATIVE Urobilinogen Urine 0.2 0.2-1.0 EU/dL Leukocyte Esterase Urine NEGATIVE NEGATIVE Urine Microscopic Indicated NO Performing Lab: see note ML - [facility] LB US OB growth Reviewed date:04/04/2024 10:02:51 AM Interpretation: Performing Lab: Notes/Report: Source Facility: [facility]-[address] [place] [address] [place] [address] Ultrasound Report Signed Patient: MARIA DE JESUS RUIZ MR#: [id number] : 1985 Acct:[id number] Age/Sex: 38 / F ADM Date: 04/03/24 Loc: RAD Attending Dr: Makenzie Recinos D.O. Ordering Physician: Makenzie Recinos D.O. Date of Service: 04/03/24 Procedure(s): US OB growth Accession Number(s): [id number] cc: KIMBERLYN XIE ; Makenzie Recinos D.O. [place] [address] Patient Name: MARIA DE JESUS RUIZ MRN: [id number] date: 1985 Sex: F Assigned Patient Location: RAD Current Patient Location: [facility] Accession/Order Number: [id number] Exam Date: 04/03/2024 12:40 Report Date: 04/03/2024 13:17 At the request of: MAKENZIE RECINOS Procedure: US OB growth EXAMINATION: US OB growth HISTORY: Gestational diabetes mellitus O24.419 COMPARISON: No relevant comparison available. FINDINGS: Amniotic Fluid Volume: 19.4 cm, largest fluid pocket 7.1 cm Number: 1 Position: Cephalic presentation, longitudinal lie BIOMETRY: BPD: 7.19 cm; 28 weeks 6 days; 61.50 % HC: 26.53 cm; 28 weeks 6 days; 41.70 % AC: 26.08 cm; 30 weeks 2 days; 93 % FL: 5.10 cm; 27 weeks 2 days; 14.70 % EFW: 1329.13 g; 72.90 %, 2 lbs. 15 oz. FL/AC: 19.55 FL/BPD: 70.96 HC/AC: 1.02 GESTATIONAL AGE: Age by EDC: 28 weeks 1 day LISA by EDC: 2024-06-25 Age by US: 28 weeks 6 days LISA by US: 2024-06-20 US/US OB growth IMPRESSION: Normal interval growth Electronically authenticated by: NATO BUTTERFIELD Date: 04/03/2024 13:17 Dictated By: Nato Butterfield M.D. Signed By: 04/03/24 1320 DD/ 1317 TD/TT: Salesperson Furs: [place] [id number] Ultrasound Report Signed Patient: MARIA DE JESUS RUIZ MR#: [id number] : 1985 Acct:[id number] Age/Sex: 38 / F ADM Date: 04/03/24 Loc: RAD Attending Dr: Makenzie Recinos D.O. Ordering Physician: Makenzie Recinos D.O. Date of Service: 04/03/24 Procedure(s): US OB growth Accession Number(s): [id number] cc: KIMBERLYN XIE ; Makenzie Recinos D.O. [place] [address] Patient Name: MARIA DE JESUS RUIZ MRN: [id number] date: 1985 Sex: F Assigned Patient Location: RAD Current Patient Loca tion: RAD Accession/Order Numb er: [id number] Exam Date: 12:40 Report Date: 04/03/2024 13:17 At the request of: MAKENZIE RECINOS Procedure: US OB growth EXAMINATION: US OB growth HISTORY: Gestational diabetes mellitus O24.419 COMPARISON: No relev ant comparison available. FINDINGS: Amniotic Fluid Volum e: 19.4 cm, largest fluid pocket 7.1 cm Number: 1 Position: Ceph alic presentation, longitudinal lie BIOMETRY: BPD: 7.19 cm; 28 wee ks 6 days; 61.50 % HC: 26.53 cm; 28 wee ks 6 days; 41.70 % AC: 26.08 cm; 30 wee ks 2 days; 93 % FL: 5.10 cm; 27 week s 2 days; 14.70 % EFW: 1329.13 g; 72.9 0 %, 2 lbs. 15 oz. FL/AC: 19.55 FL/BPD: 70.96 HC/AC: 1.02 GESTATIONAL AGE: Age by EDC: 28 weeks 1 day LISA by EDC: 2024-06-25 Age by US: 28 weeks 6 days LISA by US: 2024-06-20 U S/US OB growth IMPRESSION: Normal interval growth Electronically authenticated by: [employer] BUTTERFIELD Date: 04/03/2024 13:17 Dictated By: Jero Butterfield M.D. Signed By: 04/03/24 1320 DD/ 1317 TD/TT: Salesperson Furs: URINE MICROSCOPIC ONLY Reviewed date:04/04/2024 10:02:51 AM Interpretation: Performing Lab: Notes/Report: [facility] , WBC Urine 2-5 NONE SEEN #/HPF RBC Urine 0-2 0-2 #/HPF Bacteria Urine SMALL NONE SEEN #/HPF Mucus Urine NONE SEEN NONE SEEN Squamous Epithelial Cell Urine FEW NONE/RARE #/LPF Transitional Epi Cells Urine RARE NONE SEEN #/LPF Crystals Seen? None Seen None Seen #/HPF Cast Seen? NONE SEEN NONE SEEN #/LPF Urine Culture Indicated YES Performing Lab: see note ML - [facility] LB UA (CLEAN or CATCH) FOREIGN LANGUAGE PROFESSOR or M ICRO IF IND. Reviewed date:04/04/2024 10:02:51 AM Interpretation: Performing Lab: Notes/Report: [facility] , Color Urine LT. YELLOW YELLOW Clarity Urine CLEAR CLEAR Specific Terrell Urine 1.015 1.005-1.025 pH Urine 6.5 5.0-9.0 Protein Urine NEGATIVE NEG/TRACE mg/dL Glucose Urine UA NEGATIVE NEGATIVE mg/dL Bilirubin Urine NEGATIVE NEGATIVE Ketones Urine NEGATIVE NEGATIVE mg/dL Blood Urine NEGATIVE NEGATIVE Nitrite Urine NEGATIVE NEGATIVE Urobilinogen Urine 0.2 0.2-1.0 EU/dL Leukocyte Esterase Urine TRACE NEGATIVE Urine Microscopic Indicated YES Performing Lab: see note ML - [facility] LB CREATININE Reviewed date:04/04/2024 10:02:51 AM Interpretation: Performing Lab: Notes/Report: [facility] , Creatinine 0.52 0.55-1.02 mg/dL Estimated GFR ( Bekah >60 >=60 mL/min/1.73m 2 Estimated GFR (Non- Aruna >60 >=60 mL/min/1.73m 2 Performing Lab: see note ML - [facility] LB CBC AUTO DIFF Reviewed date:04/04/2024 10:02:51 AM Interpretation: Performing Lab: Notes/Report: [facility] , White Blood Count 9.9 4.0-11.0 10 3/uL Red Blood Count 3.78 4.20-5.40 10 6/uL Hemoglobin 11.5 12.0-16.0 g/dL Hematocrit 34.8 36.0-48.0 % Mean Corpuscular Volume 92.1 81.0-99.0 fL Mean Corpuscular Hemoglobin 30.4 26.7-34.0 pg Mean Corpuscular HGB Conc 33.0 29.9-35.2 g/dL Red Cell Distribution Width 13.4 11.0-15.0 % Platelet Count 308 150-450 10 3/uL Mean Platelet Volume 11.2 9.5-13.5 fL Neutrophils Percent Auto 74.1 43.0-75.0 % Lymphocytes Percent Auto 20.5 20.5-60.0 % Monocytes Percent Auto 4.8 1.7-12.0 % Eosinophils Percent Auto 0.2 0.9-7.0 % Basophils Percent Auto 0.2 0.2-2.0 % Immature Granulocytes Pct Auto 0.2 0.0-0.5 % Neutrophils Absolute Auto 7.4 1.4-6.5 10 3/uL Lymphocytes Absolute Auto 2.0 1.2-3.8 10 3/uL Monocytes Absolute Auto 0.5 0.3-0.8 10 3/uL Eosinophils Absolute Auto 0.0 0.0-0.7 10 3/uL Basophils Absolute Auto 0.0 0.0-0.1 10 3/uL Immature Granulocytes Abs Auto 0.02 0.00-0.03 10 3/uL Performing Lab: see note ML - [facility] LB BUN Reviewed date:04/04/2024 10:02:51 AM Interpretation: Performing Lab: Notes/Report: [facility] , Blood Urea Nitrogen 7.0 7.0-18.0 mg/dL Performing Lab: see note ML - [facility] LB CBC AUTO DIFF Reviewed date:03/07/2024 12:18:10 PM Interpretation: Performing Lab: Notes/Report: [facility] , White Blood Count 9.6 4.0-11.0 10 3/uL Red Blood Count 3.72 4.20-5.40 10 6/uL Hemoglobin 11.4 12.0-16.0 g/dL Hematocrit 34.8 36.0-48.0 % Mean Corpuscular Volume 93.5 81.0-99.0 fL Mean Corpuscular Hemoglobin 30.6 26.7-34.0 pg Mean Corpuscular HGB Conc 32.8 29.9-35.2 g/dL Red Cell Distribution Width 14.3 11.0-15.0 % Platelet Count 253 150-450 10 3/uL Mean Platelet Volume 10.5 9.5-13.5 fL Neutrophils Percent Auto 73.0 43.0-75.0 % Lymphocytes Percent Auto 21.9 20.5-60.0 % Monocytes Percent Auto 4.0 1.7-12.0 % Eosinophils Percent Auto 0.5 0.9-7.0 % Basophils Percent Auto 0.2 0.2-2.0 % Immature Granulocytes Pct Auto 0.4 0.0-0.5 % Neutrophils Absolute Auto 7.0 1.4-6.5 10 3/uL Lymphocytes Absolute Auto 2.1 1.2-3.8 10 3/uL Monocytes Absolute Auto 0.4 0.3-0.8 10 3/uL Eosinophils Absolute Auto 0.1 0.0-0.7 10 3/uL Basophils Absolute Auto 0.0 0.0-0.1 10 3/uL Immature Granulocytes Abs Auto 0.04 0.00-0.03 10 3/uL Performing Lab: see note ML - [facility] US OB limited Reviewed date:02/15/2024 08:41:28 AM Interpretation: Performing Lab: Notes/Report: Source Facility: [place] [address] Ultrasound Report Signed Patient: MARIA DE JESUS RUIZ MR#: [id number] : 1985 Acct:[id number] Age/Sex: 38 / F ADM Date: Loc: [facility] 251- Attending Dr: Makenzie Recinos D.O. Ordering Physician: Makenzie Recinos D.O. Date of Service: 02/14/24 Procedure(s): US OB limited Accession Number(s): [id number] cc: KIMBERLYN XIE ; Makenzie Recinos D.O. [place] [address] Patient Name: MARIA DE JESUS RUIZ MRN: [id number] date: 1985 Sex: F Assigned Patient Location: [facility] Current Patient Location: [facility] Accession/Order Number: [id number] Exam Date: 02/14/2024 11:41 Report Date: 02/14/2024 [...] Dictated By: Nato Butterfield M.D. Signed By: 02/14/241226 DD/ 24 TD/TT: Salesperson Furs: [place] [address] Ultrasound Report Signed Patient: MARIA DE JESUS RUIZ MR#: [id number] : 1985 Acct:[id number] Age/Sex: 38 / F ADM Date: Loc: [facility] 251-[address]: Makenzie Recinos D.O. Ordering Physician: Makenzie Recinos D.O. Date of Service: 02/14/24 Procedure(s): US OB limited Accession Number(s): [id number] cc: KIMBERLYN XIE ; Makenzie Recinos D.O. [facility] [place] [id number] Patient Name: MARIA DE JESUS RUIZ MRN: [id number] date: 1985 Sex: F Assigned Patient Location: [facility] Current Patient Loca tion: [facility] Accession/Order Numb er: [id number] Exam Date: 11:41 Report Date: 02/14/2024 12:25 At the request of: MAKENZIE RECINOS Procedure: US OB limited EXAMINATION: US OB limited HISTORY: decreased f etal movement COMPARISON: No relev ant comparison available. FINDINGS: position: Ceph alic presentation, longitudinal lie Heart rate: 136 beat s minute Clinical age: 23 wee ks 1 day Clinical LISA: 06/25/2024 U S/US OB limited IMPRESSION: Viable intrauterine gestation Electronically authenticated by: NATO BUTTERFIELD Date: 02/14/2024 12:25 Dictated By: Jero Butterfield M.D. Signed By: 02/14/247 DD/ TD/TT: Salesperson Furs: US renal BI Reviewed date:02/08/2024 08:37:54 AM Interpretation: Performing Lab: Notes/Report: Source Facility: [place] [address] Ultrasound Report Signed Patient: MARIA DE JESUS RUIZ MR#: [id number] : 1985 Acct:[id number] Age/Sex: 38 / F ADM Date: Loc: [facility] 251-[address]: Xenia Riley M.D. Ordering Physician: Xenia Riley M.D. Date of Service: 02/07/24 Procedure(s): US renal BI Accession Number(s): [id number] cc: KIMBERLYN XIE ; Xenia Riley M.D. [place] [address] Patient Name: MARIA DE JESUS RUIZ MRN: [facility]:[id number] date: 1985 Sex: F Assigned Patient Location: ED.MAIN Current Patient Location: [facility] Accession/Order Number: [id number] Exam Date: 02/07/2024 08:05 Report Date: 02/07/2024 14:06 At the request of: XENIA RILEY Procedure: US renal BI EXAMINATION: US renal BI HISTORY: UTI, r/o kidney stone [; bilateral thigh pain COMPARISON: CT abdomen pelvis 04/27/2022 TECHNIQUE: Ultrasound examination was performed of the kidneys and urinary bladder. FINDINGS: RIGHT KIDNEY: Mildly dilated renal pelvis without dilated calyces. No appreciable mass or stones. Normal parenchymal echogenicity. Color Doppler demonstrates blood flow within the kidney. Kidney: 13.0 x 6.3 x 5.1 cm LEFT KIDNEY: No evidence of pelvocaliectasis, mass, or calculi. Normal parenchymal echogenicity. Color Doppler demonstrates blood flow within the kidney. Kidney: 12.8 x 5.2 x 5.0 cm BLADDER: No visible wall thickening, mass, or calculi. US/US renal BI IMPRESSION: 1. Slight prominent extrarenal pelvis of the right kidney versus mild hydronephrosis. Hydronephrosis is felt less likely. 2. No appreciable urinary tract calculi. Electronically authenticated by: RAY LEE Date: 02/07/2024 14:06 Dictated By: Ray Lee M.D. Signed By: 02/07/24 1408 DD/ 05 TD/TT: Salesperson Furs: [place] [address] Ultrasound Report Signed Patient: MARIA DE JESUS RUIZ MR#: [id number] : 1985 Acct:[id number] Age/Sex: 38 / F ADM Date: Loc: [facility] 251-[address]: Brad Riley M.D. Ordering Physician: Xenia Riley M.D. Date of Service: 02/07/24 Procedure(s): US renal BI Accession Number(s): [id number] cc: KIMBERLYN XIE ; Xenia Riley M.D. [place] [id number] Patient Name: MARIA DE JESUS RUIZ MRN: [id number] date: 1985 Sex: F Assigned Patient Location: ED.MAIN Current Patient Loca tion: [facility] Accession/Order Numb er: [id number] Exam Date: 08:05 Report Date: 02/07/2024 14:06 At the request of: XENIA RILEY Procedure: US renal BI EXAMINATION: US renal BI HISTORY: UTI, r/o ki dney stone [; bilateral thigh pain COMPARISON: CT abdom en pelvis 04/27/2022 TECHNIQUE: Ultrasoun d examination was performed of the kidneys and urinary bladder. FINDINGS: RIGHT KIDNEY: Mildly dilated renal pelvis without dilated calyces. No appreciable mass or stones. Normal parenchymal echogenicity. Color Doppler demonstrates blood f low within the kidney. Kidney: 13.0 x 6.3 x 5.1 cm LEFT KIDNEY: No evid ence of pelvocaliectasis, mass, or calculi. Normal parenchymal echogeni city. Color Doppler demonstrates blood flow within the kidney. Kidney: 12.8 x 5.2 x 5.0 cm BLADDER: No visible wall thickening, mass, or calculi. U S/US renal BI IMPRESSION: 1. Slight prominent extrarenal pelvis of the right kidney versus mild hydronephrosis. Hydronephrosis is felt less likely. 2. No appreciable ur inary tract calculi. Electronically authenticated by: RAY LEE Date: 02/07/2024 14:06 Dictated By: Ray Lee M.D. Signed By: 02/07/24 1408 DD/ 1406 TD/TT: Salesperson Furs: URINE MICROSCOPIC ONLY Reviewed date:02/07/2024 08:29:41 AM Interpretation: Performing Lab: Notes/Report: [facility] , WBC Urine 20-50 NONE SEEN #/HPF RBC Urine 20-50 0-2 #/HPF Bacteria Urine MODERATE NONE SEEN #/HPF Mucus Urine NONE SEEN NONE SEEN Squamous Epithelial Cell Urine FEW NONE/RARE #/LPF Crystals Seen? None Seen None Seen #/HPF Cast Seen? NONE SEEN NONE SEEN #/LPF Urine Culture Indicated YES Performing Lab: see note ML - [facility] LB UA (CLEAN or CATCH) FOREIGN LANGUAGE PROFESSOR or M ICRO IF IND. Reviewed date:02/07/2024 08:29:41 AM Interpretation: Performing Lab: Notes/Report: [facility] , Color Urine DK YELLOW YELLOW Clarity Urine SLIGHTLY CLOUDY CLEAR Specific Terrell Urine 1.020 1.005-1.025 pH Urine 6.0 5.0-9.0 Protein Urine 100 NEG/TRACE mg/dL Glucose Urine UA NEGATIVE NEGATIVE mg/dL Bilirubin Urine NEGATIVE NEGATIVE Ketones Urine NEGATIVE NEGATIVE mg/dL Blood Urine MODERATE NEGATIVE Nitrite Urine POSITIVE NEGATIVE Urobilinogen Urine 1.0 0.2-1.0 EU/dL Leukocyte Esterase Urine MODERATE NEGATIVE Urine Microscopic Indicated YES Performing Lab: see note ML - [facility] LB US OB >= 14 weeks Fetus Reviewed date:12/29/2023 03:27:36 PM Interpretation: Performing Lab: Notes/Report: Source Facility: [facility] [place] [address] [place] [address] Ultrasound Report Signed Patient: MARIA DE JESUS RUIZ MR#: [id number] : 1985 Acct:[id number] Age/Sex: 38 / F ADM Date: 12/29/23 Loc: ER Attending Dr: Ordering Physician: Edilia Narayanan Date of Service: 12/29/23 Procedure(s): US OB >= 14 weeks Fetus Accession Number(s): [id number] cc: KIMBERLYN XIE ; Edilia Narayanan [place] [phone] Patient Name: MARIA DE JESUS RUIZ MRN: [id number] date: 1985 Sex: F Assigned Patient Location: ER Current Patient Location: ER Accession/Order Number: [id number] Exam Date: 12/29/2023 12:49 Report Date: 12/29/2023 13:39 At the request of: EDILIA NARAYANAN Procedure: US OB >= 14 weeks Fetus PROCEDURE: US OB >= 14 weeks Fetus, 12/29/2023 12:49 PM EDT CLINICAL INDICATIONS: Vaginal bleeding in , symptoms for one day 6 para 3 Expected gestational age: 14 weeks 3 days Expected LISA: 06/25/2024 COMPARISON: 11/24/2023 TECHNIQUE: Limited second trimester obstetric sonogram, grayscale, color evaluation. FINDINGS: Single living intrauterine identified. Intrauterine gestational sac, fetus, body, cardiac activity noted. Heart rate 143 bpm. crown-rump length: 8.31 cm Sonographic gestational age: 14 weeks 1 day +/- 1 week 2 days Sonographic LISA: 06/27/2024 Anterior placenta, no sign of hemorrhage. Maternal right ovary: Not identified. Maternal left ovary: 4.3 x 2.2 x 2.6 cm volume 13 mL. Intact vascularity on color assessment. No focal abnormality. US/US OB >= 14 weeks Fetus IMPRESSION: 1. Single living intrauterine , sonographic gestational age of 14 weeks 1 day +/- 1 week 2 days 2. Sonographic LISA 06/27/2024 3. Anterior placenta, no sign of hemorrhage 4. Nonvisualization maternal right ovary 5. No sonographic sign of maternal left adnexa pathology. Electronically authenticated by: EAN SAENZ Date: 12/29/2023 13:39 Dictated By: Ean Saenz M.D. Signed By: 12/29/23 1342 DD/ 1339 TD/TT: Salesperson Furs: The [address] [address] Ultrasound Report Signed Patient: MARIA DE JESUS RUIZ MR#: [id number] : 1985 Acct:[id number] Age/Sex: 38 / F ADM Date: 12/29/23 Loc: ER Attending Dr: Ordering Physician: Edilia Narayanan Date of Service: 12/29/23 Procedure(s): US OB >= 14 weeks Fetus Accession Number(s): [id number] cc: KIMBERLYN XIE ; Edilia Narayanan [place] [address] Patient Name: MARIA DE JESUS RUIZ MRN: [id number] date: 1985 Sex: F Assigned Patient Location: ER Current Patient Loca tion: ER Accession/Order Numb er: [id number] Exam Date: 12/29/2023 12:49 Report Date: 12/29/2023 13:39 At the request of: EDILIA NARAYANAN Procedure: US OB >= 14 weeks Fetus PROCEDURE: US OB >= 14 weeks Fetus, 12/29/2023 12:49 PM EDT CLINICAL INDICATIONS : Vaginal bleeding in , symptoms for one day 6 para 3 Expected gestational age: 14 weeks 3 days Expected LISA: 06/25/2024 COMPARISON: 11/24/2023 TECHNIQUE: Limited s econd trimester obstetric sonogram, grayscale, color evaluation. FINDINGS: Single living intrauterine identified. Intrauterine gestati onal sac, fetus, body, cardiac activity noted. Heart rate 143 bpm. crown-rump fred gth: 8.31 cm Sonographic gestatio nal age: 14 weeks 1 day +/- 1 week 2 days Sonographic LISA: 06/27/2024 Anterior placenta, n o sign of hemorrhage. Maternal right ovary : Not identified. Maternal left ovary: 4.3 x 2.2 x 2.6 cm volume 13 mL. Intact vascularity on color assessment. No focal abnormality. U S/US OB >= 14 weeks Fetus IMPRESSION: 1. Single living intrauterine , sonographic gestational age of 14 weeks 1 day +/- 1 we ek 2 days 2. Sonographic LISA 06/27/2024 3. Anterior placenta , no sign of hemorrhage 4. Nonvisualization maternal right ovary 5. No sonographic si gn of maternal left adnexa pathology. Electronically authenticated by: EAN SAENZ Date: 12/29/2023 13:39 Dictated By: Ean Saenz M.D. Signed By: 12/29/23 1342 DD/ 1339 TD/TT: Salesperson Furs: Type and Screen Reviewed date:12/29/2023 01:35:15 PM Interpretation: Performing Lab: Notes/Report: [facility] , Blood Type A Positive Antibody Screen NEGATIVE Reason For Referral No Information Medications Medication SIG (Take, Route, Frequency, Duration) Notes Start Date End Date Status Nurtec 75 MG TAKE 1 TABLET BY JASIEL EVERY DAY NEEDED for 8 Active Venlafaxine HCl 37.5 MG 1 tablet with fo od Orally Once a day Active EPINEPHrine 0.3 MG/0.3ML as directed Injection Active Omeprazole 20 MG 1 capsule 1/2 to 1 h our before morning meal Orally Once a day for 30 days 11/28/2024 Active lamoTRIgine 150 MG 1 tablet Orally Once a day Active Latuda 60 MG 1 tablet in the even ing with food Orally Once a day Acti ve Immunizations Vaccine Route Administration Date Status Comme nts Flu, Flucelvax (1890-5270) (16454) 6 mos +, single-dose syringe IM Intramuscular 06/20/2023 Administered PPD Test ID Intradermal 06/20/2023 Administered PPD Test ID Intradermal 06/27/2023 Administered Tdap (Adacel) IM Intramuscular 06/20/2023 Administered Social History Tobacco Use: Social History Observation Description Date Details (start date - stop date) Former Smoker 10/03/2007 - 09/30/2023 Alcohol Screen (Audit-C) Question Answer Notes Did you have a drink contain ing alcohol in the past year? Yes How often did you have 6 or more drinks on one occasion in the past year? Never (0 point) How many drinks did you have on a typical day when you were drinking in the past year? 1 or 2 drinks (0 point) How often did you have a dri nk containing alcohol in the past year? Less than monthly (1 point) Points 1 Interpretation Negative Tobacco Control (Standard) Question Answer Notes Tobacco [...] less (1 point) Points 1 Interpretation Negative Problems Problem Type SNOMED Code ICD Code Onset Dates Problem Status W/U Status Risk Notes Problem 749738284 Gastro-esophagea l reflux disease without esophagitis (K21.9) Active confirmed Problem 17036042910813 Morbid (severe) obesity due to excess calories (E66.01) Active confirmed Problem Overweight (986229812) Overweight (E66.3) Active confirmed Problem Hidradenitis suppurativa (14728155) Hidradenitis suppurativa (L73.2) Active confirmed Problem Shortness of breath (612621962) Shortness of breath (R06.02) Active confirmed Problem 124642918 Paresthesia of skin (R20.2) Active confirmed Problem Exposure to communicable disease (211037735) Contact with and (suspected) exposure to other viral communicable diseases (Z20.828) Active confirmed Problem Cigarette smoker (58859569) Cigarette smoker (F17.210) Active confirmed Problem Anxiety (10306048) Anxiety (F41.9) Active confi rmed Problem Obstructive sleep apnea (95752470) Obstructive sleep apnea (G47.33) Active confirmed Problem Insomnia (897322829) Insomnia (G47.00) Active confirmed Problem Migraine (78184709) Migraine (G43.909) Active confirmed Problem Sinusitis (28576377) Sinusitis (J32.9) Active confirmed Problem Allergic rhinitis (17723523) Allergic rhinitis (J30.9) Active confirmed Problem Weight gain (937456174) Weight gain (R63.5) Active confirmed Problem Near syncope (060808949) Near syncope (R55) Active confirmed Problem Gastroenteritis (05982814) Gastroenteritis (K52.9) Active confirmed Problem Obese class I (625193210144305) BMI 33.0-33.9,adult (Z68.33) Active confirmed Problem Pain in wrist (46297967) Wrist pain, right (M25.531) Active confirmed Problem Recurrent major depression in remission (12437560) Depression, major, recurrent, in partial remission (F33.41) Active confirmed Problem Generalized aches and pains (42056548) Body aches (R52) Active confirmed Problem Pain in limb (97513666) Toe pain, right (M79.674) Active confirmed Problem Irritable bowel syndrome (87210189) Irritable bowel syndrome (IBS) (K58.9) Active confirmed Problem Menstrual period late (93332320) Menstrual period late (N91.0) Active confirmed Problem 955990492 Body mass index [BMI] 40.0-44.9, adult (Z68.41) Active confirmed Vital Signs Heart Rate 84 /min 11/28/2024 Temperature 97.4 degrees Fahrenheit 06/26/2024 Oximetry 97 % 11/28/2024 Blood pressure diastolic 80 mm Hg 11/28/2024 Height 62 in 11/28/2024 Blood pressure systolic 122 mm Hg 11/28/2024 Weight 230.0 lbs 11/28/2024 BMI 42.06 kg/m2 11/28/2024 Encounters Encounter Location Date Provider Diagnosis [facility] [address] [place] [address] 12/26/2023 Kimberlyn Xie [facility] [address] [place] [address] 02/12/2024 Kimberlyn Xie [facility] [address] [place] [address] 10/22/2024 Kimberlyn Xie [facility] [address] [place] [address] 06/26/2024 Kimberlyn Xie Nipple pain N64.4 [facility] [address] [place] [address] 11/28/2024 Kimberlyn Xie Gastro-esophageal reflux disease without esophagitis K21.9 ; Dizzy spells R42 and Wellness examination Z00.00 Assessments Encounter Date Diagnosis (ICD Code) Assessment Notes Treatment Notes Treatment Clinical Notes Section Notes 06/26/2024 Nipple pain (ICD-10 - N64.4) keep nipples clean and dry as can consider fu loss control consultant nipple shield ? see if baby can latch if not improving, worsens, fu 11/28/2024 Gastro-esophagea l reflux disease without esophagitis (ICD-10 - K21.9) 11/28/2024 Dizzy spells (ICD-10 - R42) denies racing heart, palpitations denies ear pain increase fluids, electrolytes checking labs, urine fu if continues 11/28/2024 Wellness examination (ICD-10 - Z00.00) 11/28/2024 Other discussed breast milk production ways to support encouraged more than pumping, pump after feedings Plan Of Treatment Pending Test Test Name Order Date UA (URINALYSIS, COMPLETE) 11/28/2024 HEMOGLOBIN A1C (GLYCO) 09/14/2022 HEMOGLOBIN A1C (GLYCO) 11/28/2024 IRON, TOTAL 11/28/2024 LIPID PANEL (CHOL/TRIG/HDL/LDL) 11/29/19 25 VITAMIN D, 25 LEVEL (TOTAL) 11/28/2024 Urine Culture 11/28/2024 Insulin Level 11/28/2024 CRP 11/28/2024 THYROID PANEL (T4/TSH/FREE T3) 5 THYROID PANEL (T4/TSH/FREE T3) 3 CMP (COMP MET CRUZ) w/eGFR CKD-EPI 2024 CBC WITH DIFF 11/28/2024 Insurance Providers Payer Name Payer Address Payer Phone Subscriber Number Group Number Insured Name Patient Relationship to Insured Coverage Start Date Coverage End Date [employer] PPO PLUS LOCAL PLAN [address] [place] [address] [id number] Kayden Izquierdo Spouse - patient is the spouse of the insured Medical (General) History Medical History History ICD Code Hidradenitis suppurativa L73.2 Migraine G43.909 Irritable bowel syndrome (IBS) K58.9 Gastroenteritis K52.9 Overweight E66.3 Near syncope R55 Sinusitis J32.9 Body aches R52 Shortness of breath R06.02 Contact with and (suspected) exposure to other viral communicable diseases Z20.828 Toe pain, right M79.674 BMI 33.0-33.9,adult Z68.33 Wrist pain, right M25.531 Allergic rhinitis J30.9 Cigarette smoker F17.210 Depression, major, recurrent, in partial remission F33.41 Anxiety F41.9 Weight gain R63.5 Insomnia G47.00 Surgical History Surgery Date(Month/Year) Cholecystectomy Appendectomy x3 Hospitalization History Reason Date(Month/Year) UTI 10/23 Surgeries UTI several times
--- OUTSIDE RECORDS SUMMARY | 2024-12-13 14:31 | XMS_ITS | Encounter Summary ---
Author Organization [facility] Address [address] [place] [address] Care Team Providers Care Lease Broker Name Role Phone Unavailable Primary Care Provider Unavailabl e Encounter Details Date Type Department Care Team (Late st Contact Info) Description 03/22/2024 [facility] [address] [facility] [place] [address] Johnathan Recinos DO [address] [place] [address] Social History Tobacco Use Types Packs/Day Years [...]
--- OUTSIDE RECORDS SUMMARY | 2024-12-13 14:31 | XMS_ITS | Encounter Summary ---
Author Organization [facility] Address [address] [place] [address] Care Team Providers Care Tool Grinder Operator Surface Name Role Phone Unavailable Primary Care Provider Unavailabl e Encounter Details Date Type Department Care Team (Late st Contact Info) Description 11/24/2023 Abstract [facility] [address] [facility] [place] [address] Johnathan Recinos DO [address] [place] [address] Social History Tobacco Use Types Packs/Day Years [...]
--- OUTSIDE RECORDS SUMMARY | 2024-12-13 14:31 | XMS_ITS | Encounter Summary ---
Author Organization [facility] Address [address] [place] [address] Care Team Providers Care Assignment Clerk Name Role Phone Unavailable Primary Care Provider Unavailabl e Encounter Details Date Type Department Care Team (Late st Contact Info) Description 12/04/2023 Abstract [facility] [address] [facility] [place] [address] Johnathan Recinos DO [address] [place] [address] Social History Tobacco Use Types Packs/Day Years [...]
--- OUTSIDE RECORDS SUMMARY | 2024-12-13 14:31 | XMS_ITS | Encounter Summary ---
Author Organization [facility] Address [address] [place] [address] Care Team Providers Care Food Concession Manager Name Role Phone Unavailable Primary Care Provider Unavailabl e Encounter Details Date Type Department Care Team (Late st Contact Info) Description 12/04/2023 [facility] [address] [facility] [place] [address] Johnathan Recinos DO [address] [place] [address] Social History Tobacco Use Types Packs/Day Years [...]
--- OUTSIDE RECORDS SUMMARY | 2024-12-13 14:31 | XMS_ITS | Encounter Summary ---
Author Organization [facility] Address [address] [place] [address] Care Team Providers Care Pool Nurse Name Role Phone Unavailable Primary Care Provider Unavailabl e Encounter Details Date Type Department Care Team (Late st Contact Info) Description 12/07/2023 Abstract [facility] [address] [facility] [place] [address] Johnathan Recinos DO [address] [place] [address] Social History Tobacco Use Types Packs/Day Years [...]
--- OUTSIDE RECORDS SUMMARY | 2024-12-13 14:31 | XMS_ITS | Encounter Summary ---
Author Organization [facility] Address [address] [place] [address] Care Team Providers Care Screw Remover Name Role Phone Unavailable Primary Care Provider Unavailabl e Encounter Details Date Type Department Care Team (Late st Contact Info) Description 11/24/2023 Clinisync Result Encounter [facility] External Department Unsolicited Makenzie Recinos, DO [address] [facility] [address] [place] [id number] Social History Tobacco Use Types Packs/Day Years [...] Priority Date/Time Associated Diagnosis Comments US OB TRANSVAGINAL 11/24/2023 11 :27 AM EDT documented in this encounter Results * US OB TRANSVAGINAL (11/24/2023 11:27 AM EDT) Anatomical Region Laterality Modality Other 11/24/2023 11:2 7 AM EDT Narrative 11/24/2023 11:30 AM EDT The [address] [address] Ultrasound Report Signed Patient: MARIA DE JESUS RUIZ MR#: [id number] : 1985 Acct:[id number] Age/Sex: 38 / F ADM Date: 11/24/23 Loc: [facility] Attending Dr: Makenzie Recinos D.O. Ordering Physician: Makenzie Recinos D.O. Date of Service: 11/24/23 Procedure(s): US OB transvaginal Accession Number(s): [id number] cc: RADHA XIE ; Makenzie Recinos D.O. The [place] [address] Patient Name: AMRIA DE JESUS RUIZ MRN: [id number] date: 1985 Sex: F Assigned Patient Location: [facility] Current Patient Location: [facility] Accession/Order Number: [id number] Exam Date: 11/24/2023 09:35 Report Date: 11/24/2023 11:27 At the request of: MAKENZIE RECINOS Procedure: US OB transvaginal EXAMINATION: US OB transvaginal HISTORY: MISSED MENSES COMPARISON: No relevant comparison available. FINDINGS: GESTATIONAL SAC: Present and normal appearing. YOLK SAC: Present and normal appearing. POLE: Present and normal appearing. CARDIAC: Present. UTERUS: Normal size and appearance. OVARIES: Right: Not seen. Left: Not seen. CERVIX: 3.3 cm in length and closed. CUL-DE-SAC: Normal. OTHER: None. AGE BY LMP: 10 weeks 3 days LISA BY LMP: 06/18/2024 AGE BY US CRL: 9 weeks 3 days LISA BY US CRL: 06/25/2024 US/US OB transvaginal IMPRESSION: 1. Single live intrauterine . Electronically authenticated by: RAY LEE Date: 11/24/2023 11:27 Dictated By: Ray Lee M.D. Signed By: 11/24/23 1130 DD/ 1127 TD/TT: Lode Miner: Procedure Note Radiology, Radiologist, MD - 11/24/2023 [place] [address] Ultrasound Report Signed Patient: MARIA DE JESUS RUIZMR#: [id number] : 1985Acct:[id number] Age/Sex: 38 / FADM Date: 11/24/23 Loc: [facility] Attending Dr: Makenzie Recinos D.O. Ordering Physician: Makenzie Recinos D.O. Date of Service: 11/24/23 Procedure(s): US OB transvaginal Accession Number(s): [id number] cc: RADHA XIE ; Makenzie Recinos D.O. [place] [id number] Patient Name: MARIA DE JESUS RUIZ MRN: [id number] date: 1985 Sex: F Assigned Patient Location: [facility] Current Patient Location: [facility] Accession/Order Number: [id number] Exam Date: 11/24/2023 09:35 Report Date: 11/24/2023 11:27 At the request of: MAKENZIE RECINOS Procedure: US OB transvaginal EXAMINATION: US OB transvaginal HISTORY: MISSED MENSES COMPARISON: No relevant comparison available. FINDINGS: GESTATIONAL SAC: Present and normal appearing. YOLK SAC: Present and normal appearing. POLE: Present and normal appearing. CARDIAC: Present. UTERUS: Normal size and appearance. OVARIES: Right: Not seen. Left: Not seen. CERVIX: 3.3 cm in length and closed. CUL-DE-SAC: Normal. OTHER: None. AGE BY LMP: 10 weeks 3 days LISA BY LMP: 06/18/2024 AGE BY US CRL: 9 weeks 3 days LISA BY US CRL: 06/25/2024 US/US OB transvaginal IMPRESSION: 1. Single live intrauterine . Electronically authenticated by: RAY LEE Date: 11/24/2023 11:27 Dictated By: Ray Lee M.D. Signed By:11/24/23 1130 DD/ 1127 TD/TT: Lode Miner: us Makenzie Recinos DO [facility] Final Result documented in this encounter Visit Diagnoses Not on filedocumented in this encounter
--- OUTSIDE RECORDS SUMMARY | 2024-12-13 14:31 | XMS_ITS | Encounter Summary ---
Author Organization [facility] Address [address] [place] [address] Care Team Providers Care Patient Access Manager Name Role Phone Unavailable Primary Care Provider Unavailabl e Encounter Details Date Type Department Care Team (Late st Contact Info) Description 12/07/2023 Abstract [facility] [address] [facility] [place] [address] Johnathan Recinos DO [address] [place] [address] Social History Tobacco Use Types Packs/Day Years [...]
--- OUTSIDE RECORDS SUMMARY | 2024-12-13 14:31 | XMS_ITS | Clinical Summary ---
Author Organization [employer] tem Address [id number] [address] [place] [address] Care Team Providers Care Service Center Supervisor Name Role Phone No Pcp, No Pcp Primary Care Provider Unavailabl e Allergies Active Allergy Reactions Criticality Noted Date Comments Sulfamethoxazole Hives 01/25/2024 Trimethoprim Hives 01/25/2024 Medications ziprasidone (GEODON) 80 mg capsule Take 120 mg by mouth 2 (two) times a day with meals. Active buPROPion (WELLBUTRIN) 100 mg tablet Take 50 mg by mouth 2 (two) times a day. Active lamoTRIgine (LaMICtal) 25 mg tablet Take 8 tablets (200 mg total) by mouth in the morning. Active lurasidone (LATUDA) 40 mg tablet Take 60 mg by mouth in the morning. Active venlafaxine XR (EFFEXOR XR) 37.5 mg 24 hr capsule Take 1 capsule (37.5 mg total) by mouth in the morning. Active acetaminophen (TYLENOL EXTRA STRENGTH) 500 mg tablet Take 2 tablets (1,000 mg total) by mouth every 6 (six) hours as needed for pain. Active no115/iron/folic acid ( 19 ORAL) Take by mouth. 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, antepartum 02/15/2024 Pyelonephritis affecting 02/08/2024 Immunizations No known immunizations Family History Medical History Relation Name Comments Diabetes Father Hypertension Father Relation Name Status Comments Father Social History Tobacco Use Types Packs/Day Years Used Date Smoking Tobacco: Former Smokeless Tobacco: Never Tobacco Cessation:Counseling Given: Not Answered 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 Never True 02/15/2024 Within the past 12 months th e food we bought just didn't last and we didn't have money to get more. Never True 02/15/2024 Purpose - Life Answer Date Recorded Purpose and direction in life Unknown Comments No Sex and Gender Information Value Date Recorded Sex Assigned at Not on file Legal Sex Female 12:56 PM EDT Gender Identity Not on file Sexual Orientation Straight 02/08/2024 2: 45 AM EDT Last Filed Vital Signs Vital Sign Reading Time Taken Comments Blood Pressure 123/74 02/15/2024 1:03 PM EDT Pulse 94 02/15/2024 1:03 PM EDT Temperature 36.6 C (97.9 F) 02/09/2024 11:45 AM EDT Respiratory Rate 16 02/09/2024 9:20 AM EDT Oxygen Saturation 97% 02/08/2024 12: 00 PM EDT Inhaled Oxygen Concentration - - Weight 101.5 kg (223 lb 12.8 oz) 02/15/2024 1:03 PM EDT Height 160 cm (5' 2.99 ) 02/15/2024 1:03 PM EDT Body Mass Index 39.65 02/15/2024 1:03 PM EDT Plan of Treatment Health Maintenance Due Date Last Done Comments Depression Screening 1999 Adult BMI Follow Up Plan 2005 DTaP,Tdap and Td Vaccines (2 - Td or Tdap) 10/11/2021 10/12/2011 COVID-19 Vaccine ( season) 12/31/202305/2020 Influenza Vaccine 12/30/2024 06/02/2008 Adult BMI Screening 02/14/2025 02/15/2024 Tobacco Screening 02/14/2025 02/15/2024 Pap Smear 01/23/2027 01/24/2024 Goals Goal Patient Goal Type Associated Problems Recent Progress Patient-Stated? Author <enter goal here> General Yes Lisa Zeng, RN Note: Evaluation of progress towards goal: go home today Medical Devices Not on file Insurance [employer] Advance Directives * Full Code (Latest Code Status on File) Date Activated Date Inactivated Comments 02/08/2024 2:59 AM 02/09/2024 5:47 PM Care Teams Service Center Supervisor Relationship Specialty Start Date End Date No Pcp, [place] [address] PCP - General Family Medicine 03/12/19
--- OUTSIDE RECORDS SUMMARY | 2024-12-13 14:31 | XMS_ITS | Encounter Summary ---
Author Organization [facility] Address [address] [place] [address] Care Team Providers Care Hot Box Checker Name Role Phone Unavailable Primary Care Provider Unavailabl e Encounter Details Date Type Department Care Team (Late st Contact Info) Description 12/01/2023 Abstract [facility] [address] [place] [address] Johnathan Recinos DO [address] [place] [address] Social History Tobacco Use Types Packs/Day Years [...]
--- OUTSIDE RECORDS SUMMARY | 2024-12-13 14:31 | XMS_ITS | Patient Health Record ---
Author Organization [facility] es Address [address] [place] [address] Care Team Providers Care Fagot Heater Helper Name Role Phone Carlota Corral Primary Care Provider [phone] Bety Puentes Unavailable [phone] Dr. Jose Renee Unavailable [phone] Nimo Szymanski Unavailable [phone] Allergies Allergen (clinical drug ingredient) Drug/Non Drug Allergy documented on EMR Reaction Allergy Type Onset Date Status sulfamethoxazole / trimethoprim Bactrim Unknown Drug Allergy Active Reason For Referral No Information Medications Medication SIG (Take, Route, Frequency, Duration) Notes Start Date End Date Status ALPRAZolam 0.5 MG TAKE 1 TABLET DAILY, MAY TAKE additional 1 TAB PRN AT FIRST SIGN OF PANIC ATTACK Orally as directed; Duration: 15 days F41.08/31/2023 Not-Taking Propranolol HCl 40 MG 2 tabs Orally Twic e a day Not-Taking clonazePAM 0.5 MG 1 tab qAM daily; may take second tab daily as needed for anxiety Orally as directed; Duration: 15 days F41.09/14/2022 Not-Taking Claritin 10 MG 1 tablet Orally Once a day Not-Taking Ibuprofen 800 MG 1 tablet with food o r milk as needed Orally Three times a day 08/05/2024 Active Lurasidone HCl 80 MG 1 tablet in the evening with food Orally Once a day; Duration: 30 days 12/02/2024 Active PriLOSEC OTC 20 MG 1 tablet 30 [...] a day; Duration: 90 days Not-Takin g carBAMazepine 200 MG 1 tablet Orally Twi ce a day; Duration: 90 days Not-Taking Social History Tobacco Use: Social History Observation Description Date Details (start date - stop date) Former Smoker NA - NA Tobacco Screen: Question Answer Notes Are you a: former smoker How long has it been since you last smoked? 5-10 years Alcohol Screening: Question Answer Notes Did you have a drink contain ing alcohol in the past year? Yes How often did you have a dri nk containing alcohol in the past year? Monthly or less (1 point) How many drinks did you have on a typical day when you were drinking in the past year? 1 or 2 (0 points) How often did you have six o r more drinks on one occasion in the past year? Never (0 points) Points 1 Interpretation Negative Problems Problem Type SNOMED Code ICD Code Onset Dates Problem Status W/U Status Risk Notes Problem Irritable bowel syndrome with diarrhea (935213948) Irritable bowel syndrome with diarrhea (K58.0) Active confirmed Problem Bipolar affective disorder, currently depressed, mild (209134883) Bipolar 1 disorder, depressed, mild (F31.31) Active confirmed Problem Obese class II (568890835277893 ) BMI 36.0-36.9,adult (Z68.36) Active confirmed Problem Generalized anxiety disorder (98385016) Anxiety, generalized (F41.1) Active confirmed Vital Signs Heart Rate 93 /min 12/02/2024 Respiratory Rate 12 /min 12/02/2024 Blood pressure diastolic 96 mm Hg 12/02/2024 Oximetry 98 % 07/30/2024 Height 64 in 12/02/2024 Blood pressure systolic 151 mm Hg 12/02/2024 Weight 232 lbs 12/02/2024 BMI 39.82 kg/m2 12/02/2024 Encounters Encounter Location Date Provider Diagnosis [facility] [address] [place] [address] 05/27/2024 Jose Renee [facility] [address] [place] [address] 07/09/2024 Nimo Szymanski Bipolar 1 disorder, depressed, mild F31.31 and Anxiety, generalized F41.1 [facility] [address] [place] [address] 05/27/2024 Jose Thelma Encounter for dental examination and cleaning with abnormal findings Z01.21 ; Other dental procedure status Z98.818 ; Cracked tooth K03.81 and Dental caries on pit and fissure surface penetrating into dentin K02.52 [facility] [address] [place] [address] 10/30/2024 Bety Puentes Acute gingivitis, plaque induced K05.00 [facility] [address] [place] [address] 08/05/2024 Jose Figueroazk Cracked tooth K03.81 [place] [address] [place] [address] 01/17/2024 Nimo Szymanski Bipolar 1 disorder, depressed, mild F31.31 and Anxiety, generalized F41.1 [facility] [address] [place] [address] [place] [address] 12/02/2024 Nimo Szymanski Bipolar 1 disorder, depressed, mild F31.31 and Anxiety, generalized F41.1 [facility] [address] [place] [facility] [place] [address] 07/30/2024 Nimo Szymanski Bipolar 1 disorder, depressed, mild [...] contact information was provided to the patient/guardian. 07/30/2024 Bipolar 1 disorder, depressed, mild (ICD-10 - F31.31) Recommended treatment for Bipolar disorder includes FDA [...] slowness of movement or jerking of muscles. Stable The patient verbalizes understanding with all questions answered thoroughly and is in agreement with treatment plan. Continue current treatment. Call for problems . GOALS: . Maintain medication regimen _Improve mood stability _Improve anxiety control _Improve social and interpersonal functioning Patient/Guardian will call sooner if symptoms worsen. Patient understands to go to ER if needed if symptoms become severe. Crisis Intervention plan was discussed and agreed upon. Patient/Guardian will call 911 in case of emergency. Emergency contact information was provided to the patient/guardian. follow up 6 months Pharmacological management: . Alternative medication plans were discussed with the patient/guardian. All relevant side effects and potential adverse effects were discussed with the patient/guardian. Standard cautions and potential benefits were discussed. Patient/Guardian consented to the start/continuation of the treatment. 07/30/2024 Anxiety, generalized (ICD-10 - F41.1) 08/05/2024 Cracked tooth (ICD-10 - K03.81) 10/30/2024 Acute gingivitis, plaque induced (ICD-10 - K05.00) 01/17/2024 Bipolar 1 disorder, depressed, mild (ICD-10 - F31.31) Recommended treatment for Bipolar disorder includes FDA [...] slowness of movement or jerking of muscles. The patient verbalizes understanding with all questions answered thoroughly and is in agreement with treatment plan. Continue current treatment. Call for problems . GOALS: . Maintain medication regimen _Improve mood stability _Improve anxiety control _Improve social and interpersonal functioning Patient/Guardian will call sooner if symptoms worsen. Patient understands to go to ER if needed if symptoms become severe. Crisis Intervention plan was discussed and agreed upon. Patient/Guardian will call 911 in case of emergency. Emergency contact information was provided to the patient/guardian. follow up 6 months Pharmacological management: . Alternative medication plans were discussed with the patient/guardian. All relevant side effects and potential adverse effects were discussed with the patient/guardian. Standard cautions and potential benefits were discussed. Patient/Guardian consented to the start/continuation of the treatment. 01/17/2024 Anxiety, generalized (ICD-10 - F41.1) Recommended treatment [...] contact information was provided to the patient/guardian. 05/27/2024 Encounter for dental examination and cleaning with abnormal findings (ICD-10 - Z01.21) 07/09/2024 Bipolar 1 disorder, depressed, mild (ICD-10 - F31.31) 07/09/2024 Anxiety, generalized (ICD-10 - F41.1) 05/27/2024 Other dental procedure status (ICD-10 - Z98.818) 05/27/2024 Cracked tooth (ICD-10 - K03.81) 05/27/2024 Dental caries on pit and fissure surface penetrating into dentin (ICD-10 - K02.52) Plan Of Treatment Pending Test Test Name Order Date A1C with Estimated Average Glu 4 Comprehensive Metabolic Panel 08/31/2023 Lipid Panel 08/31/2023 Prolactin 08/31/2023 Thyroid Stim Hormone w/Rflx 08/31/2023 Vitamin D 25 Hydroxy 08/31/2023 Complete Blood Count Auto Diff Next Appt Details Provider Name:Jose Renee, 1 05/06/2024 09:05:00 AM, [address], [place], [address], Provider Name:Bety Puentes , 07/22/2025 08:00:00 AM, [address], [place], [address], Insurance Providers Payer Name Payer Address Payer Phone Subscriber Number Group Number Insured Name Patient Relationship to Insured Coverage Start Date Coverage End Date ANTHEM Primary [address] [place] [address] [id number] RUIZPROSPER PARKS Self - patient is the insured 2 ANTHEM Primary [address] [place] [address] [id number] JOSEPH SANTINO Spouse - patient is the spouse of the insured 1 2 DENTAL [facility] [address] [place] [address] [id number] B RUIZPROSPER PARKS Self - patient is the insured 3 Dental [facility] [address] [place] [address] [id number] PROSPER RUIZ Self - patient is the insured 5 Dental [facility] [facility] [address] [place] [address] [id number] PROSPER RUIZ Self - patient is the insured 5 Medical (General) History Medical History History ICD Code mood disorder Surgical History Surgery Date(Month/Year) x 3 appendectomy cholecystectomy Hospitalization History Reason Date(Month/Year) See surgery
--- OUTSIDE RECORDS SUMMARY | 2024-12-13 14:31 | XMS_ITS | Encounter Summary ---
Author Organization [facility] Address [address] [place] [address] Care Team Providers Care Motion Picture Actor Name Role Phone Unavailable Primary Care Provider Unavailabl e Encounter Details Date Type Department Care Team (Late st Contact Info) Description 12/07/2023 Abstract [facility] [address] [place] [address] Johnathan Recinos DO [address] [place] [address] Social History Tobacco Use Types Packs/Day Years [...]
--- OUTSIDE RECORDS SUMMARY | 2024-12-13 14:32 | XMS_ITS | Encounter Summary ---
Author Organization [facility] Address [address] [place] [address] Care Team Providers Care Premix Operator Concentrate Name Role Phone Unavailable Primary Care Provider Unavailabl e Encounter Details Date Type Department Care Team (Late st Contact Info) Description 04/03/2024 Clinisync Result Encounter [facility] External Department Unsolicited Makenzie Recinos, DO [address] [facility] [address] [place] [id number] Social History Tobacco Use Types Packs/Day Years [...] Procedure Name Priority Date/Time Associated Diagnosis Comments TB CREATININE Routine 04/03/2024 4:00 PM EST [facility] LIVER PANEL Routine 04/03/2024 4:00 PM EST ALL CBC WITH AUTO DIFF Routine 04/03/2024 4:00 PM EST ALL BUN Routine 04/03/2024 4:00 PM EST TB URINE MICROSCOPIC ONLY Routine 04/03/2024 3:35 PM EST TB UA (CLEAN/CATCH) PRODUCT MANAGEMENT CONSULTANT/MICRO IF IND. Routine 04/03/2024 3:35 PM EST US OB GROWTH 04/03/2024 1:17 PM EST documented in this encounter Results * (ABNORMAL) [facility] LIVER PANEL (04/03/2024 4:00 PM EST) BILIRUBIN TOTAL 0.2 0.2 - 1.0 mg/dL TBH BILIRUBIN DIRECT 0.1 0.0 - 0.2 mg/dL TBH ASPARTATE AMINO TRANSFERASE 11(L) 15 - 37 U/L TBH ALANINE AMINOTRANSFERASE 14 14 - 59 U/L TBH ALKALINE PHOSPHATASE 105 46 - 116 U/L TBH TOTAL PROTEIN 6.3(L) 6.4 - 8.2 g/dL TBH ALBUMIN LEVEL 2.7(L) 3.4 - 5.0 g/dL TBH GLOBULIN 3.6 g/dL TBH ALBUMIN GLOBULIN RATIO 0.8 TBH 04/03/2024 4:00 PM EST 04/03/2024 4:10 PM EST Narrative CLINISYNC - 04/03/2024 4:50 PM EST [facility] DO CLINISYNC Final Result Performing Organization Address [facility] Co de Phone Number CLINISYNC [facility] * (ABNORMAL) [facility]H CREATININE (04/03/2024 4:00 PM EST) CREATININE 0.52(L) 0.55 - 1.02 mg/dL TBH TBH EGFR-AF EMIRATI >60 >=60 mL/min/1.7 3m 2 TBH TBH EGFR-NON AF EMIRATI >60 >=60 mL/min/1.7 3m 2 TBH 04/03/2024 4:00 PM EST 04/03/2024 4:10 PM EST Narrative CLINISYNC - 04/03/2024 4:35 PM EST Makenzie Jorje DO CLINISYNC Final Result CLINISYNC TB * ALL BUN (04/03/2024 4:00 PM EST) BLOOD UREA NITROGEN 7.0 7.0 - 18.0 mg/dL TB 04/03/2024 4:00 PM EST 04/03/2024 4:10 PM EST Narrative CLINISYNC - 04/03/2024 4:35 PM EST Makenzie Jorje DO [facility]IS[facility]NC Final Result [facility] * (ABNORMAL) ALL CBC WITH AUTO DIFF (04/03/2024 4:00 PM EST) Pathologist [facility] TBH WBC 9.9 4.0 - 11.0 10 3/uL TBH TBH RBC 3.78(L) 4.20 - 5.40 10 6/uL TBH TBH HGB 11.5(L) 12.0 - 16.0 g/dL TBH TBH HCT 34.8(L) 36.0 - 48.0 % TBH TBH MCV 92.1 81.0 - 99.0 fL TBH TBH MCH 30.4 26.7 - 34.0 pg TBH TBH MCHC 33.0 29.9 - 35.2 g/dL TBH TBH RDW 13.4 11.0 - 15.0 % TBH TBH PLT 308 150 - 450 10 3/uL TBH TBH MPV 11.2 9.5 - 13.5 fL TBH NEUTROPHILS PERCENT AUTO 74.1 43.0 - 75.0 % TBH LYMPHOCYTES PERCENT AUTO 20.5 20.5 - 60.0 % TBH MONOCYTES PERCENT AUTO 4.8 1.7 - 12.0 % TBH TBH EO % 0.2(L) 0.9 - 7.0 % TBH BASOPHILS PERCENT AUTO 0.2 0.2 - 2.0 % TBH IMMATURE GRANULOCYTES PCT AUTO 0.2 0.0 - 0.5 % TBH NEUTROPHILS ABSOLUTE AUTO 7.4(H) 1.4 - 6.5 10 3/uL TBH LYMPHOCYTES ABSOLUTE AUTO 2.0 1.2 - 3.8 10 3/uL TBH MONOCYTES ABSOLUTE AUTO 0.5 0.3 - 0.8 10 3/uL TBH TBH EO # 0.0 0.0 - 0.7 10 3/uL TBH BASOPHILS ABSOLUTE AUTO 0.0 0.0 - 0.1 10 3/uL TBH IMMATURE GRANULOCYTES ABS AUTO 0.02 0.00 - 0.03 10 3/uL TBH 04/03/2024 4:00 PM EST 04/03/2024 4:10 PM EST Narrative CLINISYNC - 04/03/2024 4:26 PM EST Makenzie Jorje DO CLINISYNC Final Result Performing Organization Address [facility] Co de Phone Number CLINISYNC TBH * (ABNORMAL) TBH URINE MICROSCOPIC ONLY (04/03/2024 3:35 PM EST) Pathologist [facility] TB WBC 2-5(A) NONE SEEN #/HPF TBH TBH RBC 0-2 0 - 2 #/HPF TBH BACTERIA URINE SMALL(A) NONE SEEN #/HPF TBH MUCUS URINE NONE SEEN NONE SEEN TBH SQUAMOUS EPITHELIAL CELL URINE FEW(A) NONE/RARE #/LPF TBH TRANSITIONAL EPI CELLS URINE RARE(A) NONE SEEN #/LPF TBH CRYSTALS SEEN? None Seen None Seen #/HPF TBH CAST SEEN? NONE SEEN NONE SEEN #/LPF TBH URINE CULTURE INDICATED YES TBH 04/03/2024 3:35 PM EST 04/03/2024 4:18 PM EST Narrative CLINISYNC - 04/03/2024 4:40 PM EST Makenzie Jorje DO CLINISYNC Final Result Performing Organization Address [facility] Co de Phone Number CLINISYNC TBH * (ABNORMAL) TBH UA (CLEAN/CATCH) PRODUCT MANAGEMENT CONSULTANT/MICRO IF IND. (04/03/2024 3:35 PM EST) COLOR URINE LT. YELLOW YELLOW TBH CLARITY URINE CLEAR CLEAR TBH SPECIFIC GRAVITY URINE 1.015 1.005 - 1.025 TBH PH URINE 6.5 5.0 - 9.0 TBH PROTEIN URINE NEGATIVE NEG/TRACE mg/dL TBH GLUCOSE URINE UA NEGATIVE NEGATIVE mg/dL TBH BILIRUBIN URINE NEGATIVE NEGATIVE TBH KETONES URINE NEGATIVE NEGATIVE mg/dL TBH BLOOD URINE NEGATIVE NEGATIVE TBH NITRITE URINE NEGATIVE NEGATIVE TBH UROBILINOGEN URINE 0.2 0.2 - 1.0 EU/dL TBH LEUKOCYTE ESTERASE URINE TRACE(A) NEGATIVE TBH URINE MICROSCOPIC INDICATED YES TBH 04/03/2024 3:35 PM EST 04/03/2024 4:18 PM EST Narrative CLINISYNC - 04/03/2024 4:40 PM EST us Makenziesalomon Recinos DO CLINIS[facility]NC Final [facility] * US OB GROWTH (04/03/2024 1:17 PM EST) Anatomical Region Laterality Modality Other 04/03/2024 1:17 PM EST Narrative 04/03/2024 1:20 [place] [address] Ultrasound Report Signed Patient: MARIA DE JESUS RUIZ MR#: [id number] : 1985 Acct:[id number] Age/Sex: 38 / F ADM Date: 04/03/24 Loc: [facility] Attending Dr: Makenzie Recinos D.O. Ordering Physician: Makenzie Recinos D.O. Date of Service: 04/03/24 Procedure(s): US OB growth Accession Number(s): [id number] cc: RADHA XIE ; Makenzie Recinos D.O. [address] [address] Patient Name: MARIA DE JESUS RUIZ MRN: [id number] date: 1985 Sex: F Assigned Patient Location: RAD Current Patient Location: RAD Accession/Order Number: [id number] Exam Date: 04/03/2024 12:40 Report Date: 04/03/2024 [...] Signed By: 04/03/24 1320 DD/ 1317 TD/TT: Thermometer Maker: Procedure Note Radiology, Radiologist, MD - 04/03/2024 [place] [address] Ultrasound Report Signed Patient: MARIA DE JESUS RUIZMR#: [id number] : 1985Acct:[id number] Age/Sex: 38 / FADM Date: 04/03/24 Loc: RAD Attending Dr: Makenzie Recinos D.O. Ordering Physician: Makenzie Recinos D.O. Date of Service: 04/03/24 Procedure(s): US OB growth Accession Number(s): [id number] cc: RADHA XIE ; Makenzie Recinos D.O. [address] [place] [id number] Patient Name: MARIA DE JESUS RUIZ MRN: [id number] date: 1985 Sex: F Assigned Patient Location: RAD Current Patient Location: RAD Accession/Order Number: [id number] Exam Date: 04/03/2024 12:40 Report Date: 04/03/2024 [...] 13:17 Dictated By: Nato Butterfield M.D. Signed By:04/03/24 1320 DD/ 1317 TD/TT: Thermometer Maker: us Makenzie Recinos DO [facility] Final Result documented in this encounter Visit Diagnoses Not on filedocumented in this encounter
--- OUTSIDE RECORDS SUMMARY | 2024-12-13 14:35 | XMS_ITS | CCD ---
Author Organization [facility] InformFormerly [facility] Care Team Providers Care Sweater Designer Name Role Phone Kimberlyn Xie Primary Care [...] NO PCP, NO PCP Primary Care Unavailable No Pcp, No Pcp Primary Care Provider Unavailabl e JORJE, JOHNATHAN Attending Unavailable JORJE, JOHNATHAN Attending Unavailable JORJE, JOHNATHAN Attending Unavailable LIZA DUQUE Attending Unavailable LIZA DUQUE Attending Unavailable LIZA DUQUE Attending Unavailable JORJE, JOHNATHAN Attending Unavailable JORJE, JOHNATHAN Attending Unavailable JORJE, JOHNATHAN Attending Unavailable LIZA DUQUE Attending Unavailable LIZA DUQUE Attending Unavailable JOHNATHAN RECINOS Attending Unavailable LIZA DUQUE Attending Unavailable Jose Modi Attending Unavailable Jose Modi Admitting Unavailable Johnathan Recinos Attending Unavailable Johnathan Recinos Admitting Unavailable Unavailable Unavailable Unavailable Allergies Allergy Classification Reported Allergen(s) Allergy Type Date of Onset Reaction(s) Facility (3 sources) egg extract; Translations: [egg] Drug Allergy 08-18-19 24 Vomiting [facility] (20 sources) Sulfamethoxazole; Translations: [SULFAMETHOXAZOLE] Drug Allergy 08-18-19 24 [facility] (20 sources) Trimethoprim; Translations: [TRIMETHOPRIM] Drug Allergy 08-18-19 24 [facility] (3 sources) Fish Containing Products; Translations: [Fish Containing Products] Propensity to adverse reactions 08-18-19 24 Difficulty Breathing [facility] (1 source) Sulfamethoxazole / Trimethoprim Drug Allergy 02-04-20 13 [facility] (20 sources) Sulfamethoxazole / Trimethoprim Drug Allergy 11-24-19 24 hives, [facility] [employer] Other (20 sources) Egg-Derived Products Drug Allergy 08-18-19 24 [...] (six) hours as needed for pain. Active [id number] 200 actuat albuterol 0.09 mg/actuat metered dose [...] oral tablet (1 source) alpha-Adrenergic Agonist, Uncompetitive K-rrtuid-K-aspartate Receptor Antagonist, Sigma-1 Agonist Start: 04-27-2023 take 4 tablets by mouth every twenty-four hours as needed Capmist DM 60-15-400 MG as needed Orally every 4-6 hours as needed, max 4 tablets in 24 hours for 5 days Mar, Active [id number] 0.3 ml EPINEPHrine 1 mg/ml auto-injector (2 [...] 2019 9:40pm take 8 tablets by mo [facility] in the morning lamoTRIgine (LaMICtal) 25 mg [...] 18, 2023 12:00am take 1 capsule by [facility] every twenty-four hours in the morning venlafaxine [...] 03-09-2022 Episodic Other aftercare (1 source) Other halfway (current) drug therapy; Translations: [OTH LONGTERM CURRENT DRUG THERAPY] Onset: 04-29-2022 Episodic Other [...] Test Name Value Interpretation Reference Range Facility Urine Cultureon 10-21-2024 Bacteria identified Cx Nom (U) ORGANISM: Escherichia coli (O:ESCCOL) [place] Count >100,000 Aerobic CHUY Charge (NMIC56) ---- SUSCEPTIBILITY --- ORGANISM: O:ESCCOL ANTIBIOTIC INTERPRETATION CHUY Amikacin S <16 Amoxacillin/K Clavulanate S <8 Ampicillin S <8 Ampicillin/Sulbactam S <4 Aztreonam S <4 Cefazolin S <2 Cefepime S <2 Ceftazidime S <1 Ceftazidime/Avibactam S <4 Ceftolozane/Tazobacta m S <2 Ceftriaxone S <1 Cefuroxime S <4 Ciprofloxacin S <0.25 Ertapenem S <0.5 Gentamicin S <2 Levofloxacin S <0.5 Meropenem S <1 Meropenem/Vaborbactam S <2 Nitrofurantoin S <32 Piperacillin/Tazobact am S <8 Tetracycline S <4 Tigecycline S <2 Tobramycin S <2 Trimethoprim/Sulfamet hoxazole S <0.5 S = SUSCEPTIBLE I = INTERMEDIATE R = RESISTANT BLANK = DATA NOT AVAILABLE, OR DRUG NOT ADVISABLE OR TESTED R* = RESISTANCE DUE TO EXTENDED SPECTRUM BETA-LACTAMASES ESBL = EXTENDED SPECTRUM BETA-LACTAMASE TFG = THYMIDINE-DEPENDENT STRAIN GABRIEL = BETA-LACTAMASE POSITIVE IB = INDUCIBLE BETA-LACTAMASE. APPEARS IN PLACE OF 'S' WITH SPECIES KNOWN TO POSSESS INDUCIBLE BETA-LACTAMASES. POTENTIALLY THEY MAY BECOME RESISTANT TO ALL B-LACTAM DRUGS. PERFORMED BY: [place] [address] PATHOLOGIST OIL PAINTER CHANCE FRANCISCO M.D. Normal [facility] Comment on above: Performed By: #### C UU #### [address] ALL CBC WITH AUTO DIFFon BASOPHILS ABSOLUTE AUTO 0 [facility] Basophils/100 WBC (Bld) 0.2 % 0.2 - 2.0 % [facility] Eosinophils/100 WBC (Bld) 0.6 % Low 0.9 - 7.0 % [facility] Erythrocyte distribution width (RBC) [Ratio] 13.3 % 11.0 - 15.0 % [facility] Hematocrit (Bld) [Volume fraction] 33.2 % Low 36.0 - 48.0 % [facility] Hemoglobin (Bld) [Mass/Vol] 10.7 g/dL Low 12.0 - 16.0 g/dL [facility] IMMATURE GRANULOCYTES ABS AUTO 0.02 [facility] Immature granulocytes/100 WBC (Bld) 0.2 % 0.0 - 0.5 % [facility] Interpretation and review of laboratory results Abnormal [facility] LYMPHOCYTES ABSOLUTE AUTO 2.7 [facility] Lymphocytes/100 WBC (Bld) 28.8 % 20.5 - 60.0 % [facility] MCH (RBC) [Entitic mass] 28.7 pg 26.7 - 34.0 pg [facility] MCHC (RBC) [Mass/Vol] 32.2 g/dL 29.9 - 35.2 g/dL [facility] MCV (RBC) [Entitic vol] 89 fL 81.0 - 99.0 fL [facility] MONOCYTES ABSOLUTE AUTO 0.6 [facility] Monocytes/100 WBC (Bld) 6.2 % 1.7 - 12.0 % [facility] NEUTROPHILS ABSOLUTE AUTO 5.9 [facility] Neutrophils/100 WBC (Bld) 64 % 43.0 - 75.0 % [facility] Platelet mean volume (Bld) [Entitic vol] 11.7 fL 9.5 - 13.5 fL [facility] TBH EO # 0.[address] [facility] e TB PLT [address] [facility] e TB RBC 3.73 Low [facility] WBC 9.3 [facility] ALL CBC WITH AUTO DIFFon BASOPHILS ABSOLUTE AUTO 0 [facility] Basophils/100 WBC (Bld) 0.1 % Low 0.2 - 2.0 % [facility] Eosinophils/100 WBC (Bld) 0.6 % Low 0.9 - 7.0 % [facility] Erythrocyte distribution width (RBC) [Ratio] 13.2 % 11.0 - 15.0 % [facility] Hematocrit (Bld) [Volume fraction] 35.4 % Low 36.0 - 48.0 % [facility] Hemoglobin (Bld) [Mass/Vol] 11.7 g/dL Low 12.0 - 16.0 g/dL [facility] IMMATURE GRANULOCYTES ABS AUTO 0.03 [facility] Immature granulocytes/100 WBC (Bld) 0.4 % 0.0 - 0.5 % [facility] Interpretation and review of laboratory results Abnormal [facility] LYMPHOCYTES ABSOLUTE AUTO 1.7 [facility] Lymphocytes/100 WBC (Bld) 24 % 20.5 - 60.0 % [facility] MCH (RBC) [Entitic mass] 28.7 pg 26.7 - 34.0 pg [facility] MCHC (RBC) [Mass/Vol] 33.1 g/dL 29.9 - 35.2 g/dL [facility] MCV (RBC) [Entitic vol] 87 fL 81.0 - 99.0 fL [facility] MONOCYTES ABSOLUTE AUTO 0.3 [facility] Monocytes/100 WBC (Bld) 4.4 % 1.7 - 12.0 % [facility] NEUTROPHILS ABSOLUTE AUTO 4.9 [facility] Neutrophils/100 WBC (Bld) 70.5 % 43.0 - 75.0 % [facility] Platelet mean volume (Bld) [Entitic vol] 12 fL 9.5 - 13.5 fL [facility] TB[facility] EO # 0 [facility] PLT 278 [facility] RBC 4.07 Low [facility] WBC 7 [facility] US OB BPP W NON-STRESS on 05-31-2024 [place] [address] Ultrasound Report Signed Patient: PROSPER RUIZ MR#: [id number] : 1985 Acct:[id number] Age/Sex: 39 / F ADM Date: 05/31/24 Loc: [facility] 250-[address]: Liza Duque Ordering Physician: Liza Duque Date of Service: 05/31/24 Procedure(s): US OB BPP w non-stress Accession Number(s): [id number] cc: Liza Duque; KIMBERLYN XIE The [address] [address] Patient Name: PROSPER RUIZ MRN: [id number] date: 1985 Sex: F Assigned Patient Location: [facility] Current Patient Location: [facility] Accession/Order Number: [id number] Exam Date: 05/31/2024 13:15 Report Date: 05/31/2024 [...] Signed By: 05/31/24 1357 DD/ 1355 TD/TT: Assistant Office Manager: [facility] Radiology, Radiologist, MD - 05/31/[address] [address] Ultrasound Report Signed Patient: PROSPER RUIZ MR#: [id number] : 1985 Acct:[id number] Age/Sex: 39 / F ADM Date: 05/31/24 Loc: [facility] 250-[address]: Liza Duque Ordering Physician: Liza Duque Date of Service: 05/31/24 Procedure(s): US OB BPP w non-stress Accession Number(s): [id number] cc: Liza Duque; KIMBERLYN XIE The [address] [address] Patient Name: PROSPER RUIZ MRN: [facility]:[id number] date: 1985 Sex: F Assigned Patient Location: [facility] Current Patient Location: [facility] Accession/Order Number: [id number] Exam Date: 05/31/2024 13:15 Report Date: 05/31/2024 [...] Signed By: 05/31/24 1357 DD/ 54 TD/TT: Assistant Office Manager: [facility] Radiology Study observation (narrative) [facility] US OB BPP W NON-STRESS Ordered By: Radiologist Radiology on 05-31-2024 [facility] [employer] [facility] Work Phone: US OB BPP W NON-STRESS on 05-30-2024 [place] [address] Ultrasound Report Signed Patient: PROSPER RUIZ MR#: [id number] : 1985 Acct:[id number] Age/Sex: 39 / F ADM Date: Loc: [facility] 250- Attending Dr: Johnathan Recinos D.O. Ordering Physician: Johnathan Recinos D.O. Date of Service: 05/29/24 Procedure(s): US OB BPP w non-stress Accession Number(s): [id number] cc: KIMBERLYN XIE ; Johnathan Recinos D.O. The [address] [address] Patient Name: PROSPER RUIZ MRN: [id number] date: 1985 Sex: F Assigned Patient Location: [facility] Current Patient Location: Accession/Order Number: [id number] Exam Date: 05/29/2024 15:40 Report Date: 05/30/2024 [...] M.D. Signed By: 05/30/24621 DD/ 8 TD/TT: Assistant Office Manager: [facility] Radiology, Radiologist, MD - 05/30/2024 [place] [address] Ultrasound Report Signed Patient: PROSPER RUIZ MR#: [id number] : 1985 Acct:[id number] Age/Sex: 39 / F ADM Date: Loc: [facility] 250-[address]: Johnathan Recinos D.O. Ordering Physician: Johnathan Recinos D.O. Date of Service: 05/29/24 Procedure(s): US OB BPP w non-stress Accession Number(s): [id number] cc: KIMBERLYN XIE ; Johnathan Recinos D.O. The [address] [address] Patient Name: PROSPER RUIZ MRN: [facility]:[id number] date: 1985 Sex: F Assigned Patient Location: [facility] Current Patient Location: Accession/Order Number: [id number] Exam Date: 05/29/2024 15:40 Report Date: 05/30/2024 [...] M.D. Signed By: 05/30/24621 DD/ 8 TD/TT: Assistant Office Manager: [facility] Radiology Study observation (narrative) [facility] US OB BPP W NON-STRESS Ordered By: Radiologist Radiology on 05-30-2024 [facility] Work Phone: ALL CBC WITH AUTO DIFFon BASOPHILS ABSOLUTE AUTO 0 [facility] Basophils/100 WBC (Bld) 0.3 % 0.2 - 2.0 % [facility] Eosinophils/100 WBC (Bld) 0.5 % Low 0.9 - 7.0 % [facility] Erythrocyte distribution width (RBC) [Ratio] 13.2 % 11.0 - 15.0 % [facility] Hematocrit (Bld) [Volume fraction] 33.4 % Low 36.0 - 48.0 % [facility] Hemoglobin (Bld) [Mass/Vol] 10.9 g/dL Low 12.0 - 16.0 g/dL [facility] IMMATURE GRANULOCYTES ABS AUTO 0.03 [facility] Immature granulocytes/100 WBC (Bld) 0.4 % 0.0 - 0.5 % [facility] Interpretation and review of laboratory results Abnormal [facility] LYMPHOCYTES ABSOLUTE AUTO 1.5 [facility] Lymphocytes/100 WBC (Bld) 20.7 % 20.5 - 60.0 % [facility] MCH (RBC) [Entitic mass] 29.1 pg 26.7 - 34.0 pg [facility] MCHC (RBC) [Mass/Vol] 32.6 g/dL 29.9 - 35.2 g/dL [facility] MCV (RBC) [Entitic vol] 89.1 fL 81.0 - 99.0 fL [facility] MONOCYTES ABSOLUTE AUTO 0.4 [facility] Monocytes/100 WBC (Bld) 5.8 % 1.7 - 12.0 % [facility] NEUTROPHILS ABSOLUTE AUTO 5.4 [facility] Neutrophils/100 WBC (Bld) 72.3 % 43.0 - 75.0 % [facility] Platelet mean volume (Bld) [Entitic vol] 11.2 fL 9.5 - 13.5 fL [facility] TBH EO # 0 [facility] TB PLT 269 [facility] TB RBC 3.75 Low [facility] TB WBC 7.4 [facility] Urinalysis macro (dipstick) panel (U)on 05-29-2024 Bilirubin, UA Negative Negative - 4(70) +++ mg/dL [facility] Blood, UA Negative Negative - 50 Slick/mcL [facility] Clarity, UA Clear [facility] re Color, UA Yellow [facility] Glucose, UA Negative Negative - 1999(110) ++++ mg/dL [facility] Interpretation and review of laboratory results Normal [facility] Ketones, UA Negative Negative - 160(16) ++++ mg/dL [facility] Leukocytes, UA Negative Negative - 500+++ Mira/mcL [facility] Nitrite, UA Negative Negative - Positive [facility] pH, UA 6 5 - 9 [facility] Protein, UA Negative Negative - 1999(20) ++++ mg/dL [facility] Spec Grav, UA 1.015 1 - 1.03 [facility] Urobilinogen, UA 0.2 0.2 - 12 mg/dL [facility] Urinalysis macro (dipstick) panel (U)on 05-22-2024 Bilirubin, UA Negative Negative - 4(70) +++ mg/dL [facility] Blood, UA Negative Negative - 50 Slick/mcL [facility] Clarity, UA Clear [facility] re Color, UA Yellow [facility] Glucose, UA Negative Negative - 1999(110) ++++ mg/dL [facility] Interpretation and review of laboratory results Abnormal [facility] Ketones, UA Negative Negative - 160(16) ++++ mg/dL [facility] Leukocytes, UA Trace Negative - 500+++ Mira/mcL [facility] Nitrite, UA Negative Negative - Positive [facility] pH, UA 6 5 - 9 [facility] Protein, UA Trace Negative - 1999(20) ++++ mg/dL [facility] Spec Grav, UA 1.015 1 - 1.03 [facility] Urobilinogen, UA 0.2 0.2 - 12 mg/dL [facility] Urinalysis macro (dipstick) panel (U)on 05-13-2024 Bilirubin, UA Negative Negative - 4(70) +++ mg/dL [facility] Blood, UA Positive Negative - 50 Slick/mcL [facility] Comment on above: trace Clarity, UA Clear [facility] re Color, UA Yellow [facility] Glucose, UA Negative Negative - 1999(110) ++++ mg/dL [facility] Interpretation and review of laboratory results Abnormal [facility] Ketones, UA Negative Negative - 160(16) ++++ mg/dL [facility] Leukocytes, UA Negative Negative - 500+++ Mira/mcL [facility] Nitrite, UA Negative Negative - Positive [facility] pH, UA 6.5 5 - 9 [facility] Protein, UA Negative Negative - 1999(20) ++++ mg/dL [facility] Spec Grav, UA 1.01 1 - 1.03 [facility] Urobilinogen, UA 0.2 0.2 - 12 mg/dL [facility] US OB [...] 2513 gm / 5 lbs, 8 oz (7853-6911 gm) [place] Normal: 2393 gm (8426-1375 gm) [place] Wt%: 65% for 34.1 wks [...] as of 03/21/2024: 32w3d TBH UA (CLEAN/CATCH) DRAFTER AUTOMOTIVE DESIGN/CHUY RO IF IND.on 04-22-2024 BILIRUBIN URINE Negative [...] (U) No Growth 2 Days PERFORMED BY: [facility] [address] [place] [address] PATHOLOGIST OIL PAINTER SYD SHEFFIELD M.D. Normal [facility] Comment on above: Performed By: #### C UU #### [facility] [address] RECURRENT VAGINITIS (HTRX)on 04-06-2024 ATOPOBIUM VAGINAE 0 [facility] ATOPOBIUM VAGINAE Not detected [facility] BVAB 2,3 (BACTERIAL VAGINOSIS ASSOCIATED BACTERIA 2, 3); MOBILUNCUS SPP 0 [facility] BVAB 2,3 (BACTERIAL VAGINOSIS ASSOCIATED BACTERIA 2, 3); MOBILUNCUS SPP Not detected [facility] BRAD ALBICANS, PARAPSILOSIS, TROPICALIS 0 [facility] BRAD ALBICANS, PARAPSILOSIS, TROPICALIS Not detected [facility] BRAD GLABRATA 0 [facility] Hea lthcare BRAD GLABRATA Not detected [facility] ealthcare BRAD KRUSEI 0 [facility] BRAD KRUSEI [facility] CHLAMYDIA TRACHOMATIS 0 [facility] CHLAMYDIA TRACHOMATIS Not detected N [facility] GARDNERELLA VAGINALIS 0 [facility] GARDNERELLA VAGINALIS Not detected N [facility] MEGASPHAERA (TYPES 1, 2) 0 [facility] MEGASPHAERA (TYPES 1, 2) Not detected [facility] MYCOPLASMA GENITALIUM 0 [facility] MYCOPLASMA GENITALIUM Not detected N [facility] NEISSERIA GONORRHOEAE 0 [facility] NEISSERIA GONORRHOEAE Not detected N [facility] TRICHOMONAS VAGINALIS 0 [facility] TRICHOMONAS VAGINALIS Not detected [facility] Urinalysis macro (dipstick) panel (U)on 04-03-2024 Bilirubin, UA Negative Negative - (70) +++ mg/dL [facility] Blood, UA Negative Negative - 50 Slick/mcL [facility] Clarity, UA Cloudy [facility] re Color, UA Yellow [facility] e Glucose, UA 1+ Negative - 1999(110) ++++ mg/dL [facility] Comment on above: 100mg/dL Interpretation and review of laboratory results Abnormal [facility] Ketones, UA Negative Negative - 160(16) ++++ mg/dL [facility] Leukocytes, UA Trace Negative - 500+++ Mira/mcL [facility] Nitrite, UA Negative Negative - Positive [facility] pH, UA 6 5 - [address] [facility] e Protein, UA Negative Negative - 1999(20) ++++ mg/dL [facility] Spec Grav, UA 1.01 1 - 1.03 [facility] Urobilinogen, UA 0.2 0.2 - 12 mg/dL [facility] ALL CBC WITH AUTO DIFFon BASOPHILS ABSOLUTE AUTO 0 [facility] Basophils/100 WBC (Bld) 0.1 % Low 0.2 - 2.0 % [facility] Eosinophils/100 WBC (Bld) 0.5 % Low 0.9 - 7.0 % [facility] Erythrocyte distribution width (RBC) [Ratio] 13.9 % 11.0 - 15.0 % [facility] Hematocrit (Bld) [Volume fraction] 35.2 % Low 36.0 - 48.0 % [facility] Hemoglobin (Bld) [Mass/Vol] 11.5 g/dL Low 12.0 - 16.0 g/dL [facility] IMMATURE GRANULOCYTES ABS AUTO 0.05 High [facility] Immature granulocytes/100 WBC (Bld) 0.6 % High 0.0 - 0.5 % [facility] Interpretation and review of laboratory results Abnormal [facility] LYMPHOCYTES ABSOLUTE AUTO 1.9 [facility] Lymphocytes/100 WBC (Bld) 22.9 % 20.5 - 60.0 % [facility] MCH (RBC) [Entitic mass] 30.5 pg 26.7 - 34.0 pg [facility] MCHC (RBC) [Mass/Vol] 32.7 g/dL 29.9 - 35.2 g/dL [facility] MCV (RBC) [Entitic vol] 93.4 fL 81.0 - 99.0 fL [facility] MONOCYTES ABSOLUTE AUTO 0.3 [facility] Monocytes/100 WBC (Bld) 3.3 % 1.7 - 12.0 % [facility] NEUTROPHILS ABSOLUTE AUTO 6.1 [facility] Neutrophils/100 WBC (Bld) 72.6 % 43.0 - 75.0 % [facility] Platelet mean volume (Bld) [Entitic vol] 10.5 fL 9.5 - 13.5 fL [facility] TBH EO # 0 [facility] TB PLT [address] [facility] e TB RBC 3.[address] [facility] e TB WBC 8.4 [facility] Urinalysis macro (dipstick) panel (U)on 03-21-2024 Bilirubin, UA Negative Negative - 4(70) +++ mg/dL [facility] Blood, UA Negative Negative - 50 Slick/mcL [facility] Clarity, UA Cloudy [facility] re Color, UA Yellow [facility] Glucose, UA Positive Negative - 1999(110) ++++ mg/dL [facility] Comment on above: 500 mg Interpretation and review of laboratory results Abnormal [facility] Ketones, UA Negative Negative - 160(16) ++++ mg/dL [facility] Leukocytes, UA Negative Negative - 500+++ Mira/mcL [facility] Healthcare Nitrite, UA Negative Negative - Positive [facility] pH, UA 6.5 5 - 9 [facility] Protein, UA Negative Negative - 1999(20) ++++ mg/dL [facility] Healthcare Spec Grav, UA 1.025 1 - 1.03 [facility] Health care Urobilinogen, UA 0.2 0.2 - 12 mg/dL [facility] Healthcare [facility] Urinalysis macro (dipstick) panel (U)on 03-11-2024 Bilirubin, UA Negative Negative - (70) +++ mg/dL [facility] Blood, UA Positive Negative - 50 Slick/mcL [facility] Comment on above: large Clarity, UA Clear [facility] Color, UA Straw [facility] Glucose, UA Negative Negative - 1999(110) ++++ mg/dL [facility] Interpretation and review of laboratory results Abnormal [facility] Ketones, UA Negative Negative - 160(16) ++++ mg/dL [facility] Leukocytes, UA Negative Negative - 500+++ Mira/mcL [facility] Healthcare Nitrite, UA Negative Negative - Positive [facility] pH, UA 6 5 - 9 [facility] Health[facility] e Protein, UA Negative Negative - 1999(20) ++++ mg/dL [facility] Healthcare Spec Grav, UA 1.02 1 - 1.03 [facility] Health care Urobilinogen, UA 0.2 0.2 - 12 mg/dL [facility] Healthcare [facility] UA (CLEAN/CATCH) DRAFTER AUTOMOTIVE DESIGN/CHUY RO IF IND.on 03-06-2024 BILIRUBIN URINE COLOR INTERFERENCE Abnormal NEGATIVE N [facility] Healthcare BLOOD URINE COLOR INTERFERENCE Abnormal NEGATIVE [facility] Healthcare Clarity (U) CLEAR CLEAR [facility] Color (U) DK. RED YELLOW [facility] GLUCOSE URINE UA COLOR INTERFERENCE Abnormal NEGAT CARMELITA mg/dL [facility] Interpretation and review of laboratory results Abnormal [facility] Ketones Ql (U) COLOR INTERFERENCE Abnormal NEGATIV E mg/dL [facility] Leukocyte esterase Test strip Ql (U) COLOR INTERFERENCE Abnormal NEGATIVE [facility] NITRITE URINE COLOR INTERFERENCE Abnormal NEGATIVE [facility] PH URINE COLOR INTERFERENCE Abnormal 5.0 - 9.0 [facility] PROTEIN URINE COLOR INTERFERENCE Abnormal NEG/TRAC E mg/dL [facility] SPECIFIC GRAVITY URINE 1.020 1.005 - 1.025 [facility] URINE MICROSCOPIC INDICATED YES [facility] UROBILINOGEN URINE COLOR INTERFERENCE Abnormal 0.2 - 1.0 EU/dL [facility] Urinalysis macro (dipstick) panel (U)on 03-06-2024 Bilirubin, UA Positive Negative - (70) +++ mg/dL [facility] Blood, UA Positive Negative - 50 Slick/mcL [facility] Comment on above: large Clarity, UA Clear [facility] Color, UA Dark Sanaz [facility] Glucose, UA Negative Negative - 1999(110) ++++ mg/dL [facility] Interpretation and review of laboratory results Abnormal [facility] Ketones, UA Negative Negative - 160(16) ++++ mg/dL [facility] Leukocytes, UA Trace Negative - 500+++ Mira/mcL [facility] Nitrite, UA Positive Negative - Positive [facility] pH, UA 6 5 - 9 [facility] Protein, UA Positive Negative - 1999(20) ++++ mg/dL [facility] Comment on above: 100 Spec Grav, UA 1.02 1 - 1.03 [facility] Urobilinogen, UA 1.0 0.2 - 12 mg/dL [facility] macro (dipstick) panel (U)on 02-21-2024 Bilirubin, UA Negative Negative - 4(70) +++ mg/dL [facility] Blood, UA Negative Negative - 50 Slick/mcL [facility] Clarity, UA Clear [facility] Color, UA Yellow [facility] Glucose, UA Negative Negative - 1999(110) ++++ mg/dL [facility] Interpretation and review of laboratory results Abnormal [facility] Ketones, UA Negative Negative - 160(16) ++++ mg/dL [facility] Leukocytes, UA Trace Negative - 500+++ Mira/mcL [facility] Nitrite, UA Negative Negative - Positive [facility] pH, UA 5.5 5 - 9 [facility] Protein, UA Negative Negative - 2000(20) ++++ mg/dL [facility] Spec Grav, UA 1.01 1 - 1.03 [facility] Urobilinogen, UA 0.2 0.2 - 12 mg/dL [facility] CBC AND AUTO DIFFon 02-09-20 24 ABSOLUTE BASOPHIL 0.0 X10E9/L Normal 0.0-0.2 [facility] Comment on above: Performed By: #### 3 2132-1, CMP, CBCA #### [facility] ([id number]) [address], [address] [address] ABSOLUTE NEUTROPHIL 5.4 X10E9/L Normal 1.5-6.6 [facility] Comment on above: Performed By: #### 3 2132-1, CMP, CBCA #### [facility] ([id number]) [address], [address] [place] [address] Basophils/100 WBC (Bld) 0.2 % Normal [facility] Comment on above: Performed By: #### 3 2132-1, CMP, CBCA #### [facility] ([id number]) [address], [address] [place] [address] Eosinophils (Bld) [#/Vol] 0.1 10*3/uL Normal 0.0-0.4 [facility] Comment on above: Performed By: #### 3 2132-1, CMP, CBCA #### [facility] ([id number]) [address], [address] [place] [address] Eosinophils/100 WBC (Bld) 0.9 % Normal [facility] Comment on above: Performed By: #### 3 2132-, CMP, CBCA #### [facility] ([id number]) [address], [address] [place] [address] Erythrocyte distribution width (RBC) [Ratio] 14.3 % Normal 11.5-15.0 [facility] Comment on above: Performed By: #### 3 2132-1, CMP, CBCA #### [facility] ([id number]) [address], [address] [place] [address] Hematocrit (Bld) [Volume fraction] 30.3 % Low 35-47 [facility] Comment on above: Performed By: #### 3 2132-1, CMP, CBCA #### [facility] ([id number]) [address], [facility] [address] [place] [address] Hemoglobin (Bld) [Mass/Vol] 10.3 g/dL Low 11.7-15.5 [facility] Comment on above: Performed By: #### 3 2132-1, CMP, CBCA #### [facility] ([id number]) [address], [facility] [address] [place] [address] Lymphocytes (Bld) [#/Vol] 1.7 10*3/uL Normal 1.0-3.5 [facility] Comment on above: Performed By: #### 3 2132-1, CMP, CBCA #### [facility] ([id number]) [address], [address] [place] [address] Lymphocytes/100 WBC (Bld) 22.0 % Normal [facility] Comment on above: Performed By: #### 3 2132-1, CMP, CBCA #### [facility] ([id number]) [address], [address] [place] [address] MCH (RBC) [Entitic mass] 31.3 pg Normal 27-34 [facility] Comment on above: Performed By: #### 3 2132-1, CMP, CBCA #### [facility] ([id number]) [address], [address] [place] [address] MCHC (RBC) [Mass/Vol] 34.0 g/dL Normal 32-36 [facility] Comment on above: Performed By: #### 3 2132-1, CMP, CBCA #### [facility] ([id number]) [address], [address] [place] [address] MCV (RBC) [Entitic vol] 92 fL Normal 80-100 [facility] Comment on above: Performed By: #### 3 2132-1, CMP, CBCA #### [facility] ([id number]) [address], [address] [place] [address] Monocytes (Bld) [#/Vol] 0.5 10*3/uL Normal 0-0.9 [facility] Comment on above: Performed By: #### 3 2132-1, CMP, CBCA #### [facility] ([id number]) [address], [address] [place] [address] Monocytes/100 WBC (Bld) 7.0 % Normal [facility] Comment on above: Performed By: #### 3 2132-1, CMP, CBCA #### [facility] ([id number]) [address], [address] [place] [address] Neutrophils/100 WBC (Bld) 69.9 % Normal [facility] Comment on above: Performed By: #### 3 2132-1, CMP, CBCA #### [facility] ([id number]) [address], [address] [place] [address] Platelet mean volume (Bld) [Entitic vol] 8.8 fL Normal 7-12 [facility] Comment on above: Performed By: #### 3 2132-1, CMP, CBCA #### [facility] ([id number]) [address], [address] [place] [address] Platelets (Bld) [#/Vol] 259 10*3/uL Normal 150-450 [facility] Comment on above: Performed By: #### 3 2132-1, CMP, CBCA #### [facility] ([id number]) [address], [address] [place] [address] RBC COUNT 3.29 X10E12/L Low 3.80-5.20 [facility] Comment on above: Performed By: #### 3 2132-1, CMP, CBCA #### [facility] ([id number]) [address], [address] [place] [address] WBC (Bld) [#/Vol] 7.7 10*3/uL Normal 4.0-11.0 [facility] Comment on above: Performed By: #### 3 2132-1, CMP, CBCA #### [facility] ([id number]) [address], [address] [place] [address] COMPREHENSIVE METABOLIC PANE Paco 02-09-2024 Albumin [Mass/Vol] 2.9 g/dL Low 3.2-5.3 [facility] Comment on above: Performed By: #### 3 2132-1, CMP, CBCA #### [facility] ([id number]) [address], [address] [place] [address] ALP [Catalytic activity/Vol] 118 U/L Normal 39-130 [facility] Comment on above: Performed By: #### 3 2132-1, CMP, CBCA #### [facility] ([id number]) [address], [address] [place] [address] ALT [Catalytic activity/Vol] 6 U/L Normal 0-31 [facility] Comment on above: Performed By: #### 3 2132-1, CMP, CBCA #### [facility] ([id number]) [address], [address] [place] [address] Anion gap [Moles/Vol] 10 mmol/L Normal 5-15 [facility] Comment on above: Performed By: #### 3 2133-1, CMP, CBCA #### [facility] ([id number]) [address], [address] [place] [address] AST [Catalytic activity/Vol] 9 U/L Normal 0-41 [facility] Comment on above: Performed By: #### 3 2132-1, CMP, CBCA #### [facility] ([id number]) [address], [address] [place] [address] Bilirubin [Mass/Vol] 0.4 mg/dL Normal 0.3-1.2 [facility] Comment on above: Performed By: #### 3 2132-1, CMP, CBCA #### [facility] ([id number]) [address], [address] [place] [address] Calcium [Mass/Vol] 8.5 mg/dL Normal 8.5-10.5 [facility] Comment on above: Performed By: #### 3 2132-1, CMP, CBCA #### [facility] ([id number]) [address], [address] [place] [address] Chloride [Moles/Vol] 105 mmol/L Normal 98-109 [facility] Comment on above: Performed By: #### 3 2132-1, CMP, CBCA #### [facility] ([id number]) [address], [address] [place] [address] CO2 [Moles/Vol] 22 mmol/L Normal 22-32 [facility] Comment on above: Performed By: #### 3 2132-1, CMP, CBCA #### [facility] ([id number]) [address], [address] [place] [address] Creatinine [Mass/Vol] 0.45 mg/dL Normal 0.40-1.00 [facility] Comment on above: Result Comment: METH OD TRACEABLE TO IDMS STANDARD Performed By: #### 3 2132-1, CMP, CBCA #### [facility] ([id number]) [address], [address] [place] [address] eGFR (CKD-EPI) NON-RACE DEPENDENT >90 Normal >59 [facility] Comment on above: Result Comment: Reported eGFR is based on the CKD-EPI 2020 equation that does not use a race coefficient. Performed By: #### 3 3-1, CMP, CBCA #### [facility] ([id number]) [address], [address] [place] [address] Glucose [Mass/Vol] 84 mg/dL Normal 65-99 [facility] Comment on above: Performed By: #### 3 2132-1, CMP, CBCA #### [facility] ([id number]) [address], [address] [place] [address] Potassium [Moles/Vol] 3.7 mmol/L Normal 3.5-5.0 [facility] Comment on above: Performed By: #### 3 2132-1, CMP, CBCA #### [facility] ([id number]) [address], [address] [place] [address] Protein [Mass/Vol] 6.0 g/dL Normal 6.0-8.0 [facility] Comment on above: Performed By: #### 3 2132-1, CMP, CBCA #### [facility] ([id number]) [address], [address] [place] [address] Sodium [Moles/Vol] 137 mmol/L Normal 134-146 [facility] Comment on above: Performed By: #### 3 2132-1, CMP, CBCA #### [facility] ([id number]) [address], [address] [place] [address] Urea nitrogen [Mass/Vol] 5 mg/dL Normal 5-23 [facility] Comment on above: Performed By: #### 3 2132-1, CMP, CBCA #### [facility] ([id number]) [address], [address] [place] [address] MAGNESIUMon 02-09-2024 Magnesium [Mass/Vol] 1.6 mg/dL Low 1.8-2.6 [facility] Comment on above: Performed By: #### 3 2132-1, IZAIAH CBCA #### [facility] ([id number]) [address], [address] [place] [address] PHOSPHORUSon 02-09-2024 Phosphate [Mass/Vol] 4.5 mg/dL Normal 2.4-4.9 [facility] Comment on above: Performed By: #### 3 2132-1, IZAIAH CBCAbhilash #### [facility] ([id number]) [address], [address] [place] [address] US RETROPERITONEAL LIMITEDon 02-09-2024 US RETROPERITONEAL LIMITED [...] MD on 02/09/2024 10:14 AM Normal [facility] BLOOD CULTUREon 02-08-2024 Bacteria identified Aer cx Nom (Bld) SPECIMEN NOTES SUBOPTIMAL VOLUME OF BLOOD COLLECTED, RESULTS MAY BE AFFECTED. CULTURE RESULTS NO GROWTH 5 DAYS Normal [facility] Comment on above: Performed By: #### 3 2133-1, CMP, CBCA #### [facility] ([id number]) [address], [address] [place] [address] Bacteria identified Aer cx Nom (Bld) SPECIMEN NOTES SUBOPTIMAL VOLUME OF BLOOD COLLECTED, RESULTS MAY BE AFFECTED. CULTURE RESULTS NO GROWTH 5 DAYS Normal [facility] Comment on above: Performed By: #### 1 7928-3 #### [facility] ([id number]) [address], [address] [place] [address] CBC AND AUTO DIFFon 10-10-20 24 ABSOLUTE BASOPHIL 0.0 X10E9/L Normal 0.0-0.2 [facility] Comment on above: Performed By: #### 3 2132-1, CMP, CBCA #### [facility] ([id number]) [address], [address] [place] [address] ABSOLUTE NEUTROPHIL 9.5 X10E9/L High 1.5-6.6 [facility] Comment on above: Performed By: #### 3 2132-1, CMP, CBCA #### [facility] ([id number]) [address], [address] [place] [address] Basophils/100 WBC (Bld) 0.0 % Normal [facility] Comment on above: Performed By: #### 3 2132-1, CMP, CBCA #### [facility] ([id number]) [address], [address] [place] [address] Eosinophils (Bld) [#/Vol] 0.0 10*3/uL Normal 0.0-0.4 [facility] Comment on above: Performed By: #### 3 2132-1, CMP, CBCA #### [facility] ([id number]) [address], [address] [place] [address] Eosinophils/100 WBC (Bld) 0.0 % Normal [facility] Comment on above: Performed By: #### 3 2132-1, CMP, CBCA #### [facility] ([id number]) [address], [address] [place] [address] Erythrocyte distribution width (RBC) [Ratio] 14.5 % Normal 11.5-15.0 [facility] Comment on above: Performed By: #### 3 2132-1, CMP, CBCA #### [facility] ([id number]) [address], [facility] [address] [place] [address] Hematocrit (Bld) [Volume fraction] 31.3 % Low 35-47 [facility] Comment on above: Performed By: #### 3 2132-1, CMP, CBCA #### [facility] ([id number]) [address], [facility] [address] [place] [address] Hemoglobin (Bld) [Mass/Vol] 10.6 g/dL Low 11.7-15.5 [facility] Comment on above: Performed By: #### 3 2132-1, CMP, CBCA #### [facility] ([id number]) [address] [address] [place] [address] Lymphocytes (Bld) [#/Vol] 1.1 10*3/uL Normal 1.0-3.5 [facility] Comment on above: Performed By: #### 3 2132-1, CMP, CBCA #### [facility] ([id number]) [address], [facility] [address] [place] [address] Lymphocytes/100 WBC (Bld) 9.4 % Normal [facility] Comment on above: Performed By: #### 3 2132-1, CMP, CBCA #### [facility] ([id number]) [address] [address] [place] [address] MCH (RBC) [Entitic mass] 30.8 pg Normal 27-34 [facility] Comment on above: Performed By: #### 3 2132-1, CMP, CBCA #### [facility] ([id number]) [address], [address] [place] [address] MCHC (RBC) [Mass/Vol] 33.9 g/dL Normal 32-36 [facility] Comment on above: Performed By: #### 3 2132-1, CMP, CBCA #### [facility] ([id number]) [address], [address] [place] [address] MCV (RBC) [Entitic vol] 91 fL Normal 80-100 [facility] Comment on above: Performed By: #### 3 2132-1, CMP, CBCA #### [facility] ([id number]) [address], [address] [place] [address] Monocytes (Bld) [#/Vol] 0.9 10*3/uL Normal 0-0.9 [facility] Comment on above: Performed By: #### 3 2132-1, CMP, CBCA #### [facility] ([id number]) [address], [address] [place] [address] Monocytes/100 WBC (Bld) 8.2 % Normal [facility] Comment on above: Performed By: #### 3 2132-1, CMP, CBCA #### [facility] ([id number]) [address], [address] [place] [address] Neutrophils/100 WBC (Bld) 82.4 % Normal [facility] Comment on above: Performed By: #### 3 2132-1, CMP, CBCA #### [facility] ([id number]) [address], [address] [place] [address] Platelet mean volume (Bld) [Entitic vol] 8.5 fL Normal 7-12 [facility] Comment on above: Performed By: #### 3 2132-1, CMP, CBCA #### [facility] ([id number]) [address], [address] [place] [address] Platelets (Bld) [#/Vol] 246 10*3/uL Normal 150-450 [facility] Comment on above: Performed By: #### 3 2132-1, CMP, CBCA #### [facility] ([id number]) [address], [address] [place] [address] RBC COUNT 3.44 X10E12/L Low 3.80-5.20 [facility] Comment on above: Performed By: #### 3 2132-1, CMP, CBCA #### [facility] ([id number]) [address], [facility] [address] [place] [address] WBC (Bld) [#/Vol] 11.5 10*3/uL High 4.0-11.0 [facility] Comment on above: Performed By: #### 3 2132-1, CMP, CBCA #### [facility] ([id number]) [address], [address] [place] [address] COMPREHENSIVE METABOLIC PANE Paco 02-08-2024 Albumin [Mass/Vol] 3.1 g/dL Low 3.2-5.3 [facility] Comment on above: Performed By: #### 3 2132-1, CMP, CBCA #### [facility] ([id number]) [address], [address] [place] [address] ALP [Catalytic activity/Vol] 100 U/L Normal 39-130 [facility] Comment on above: Performed By: #### 3 2132-1, CMP, CBCA #### [facility] ([id number]) [address], [address] [place] [address] ALT [Catalytic activity/Vol] 7 U/L Normal 0-31 [facility] Comment on above: Performed By: #### 3 2132-1, CMP, CBCA #### [facility] ([id number]) [address], [address] [place] [address] Anion gap [Moles/Vol] 12 mmol/L Normal 5-15 [facility] Comment on above: Performed By: #### 3 2132-1, CMP, CBCA #### [facility] ([id number]) [address], [address] [place] [address] AST [Catalytic activity/Vol] 8 U/L Normal 0-41 [facility] Comment on above: Performed By: #### 3 2132-1, CMP, CBCA #### [facility] ([id number]) [address], [address] [place] [address] Bilirubin [Mass/Vol] 0.5 mg/dL Normal 0.3-1.2 [facility] Comment on above: Performed By: #### 3 2132-1, CMP, CBCA #### [facility] ([id number]) [address], [address] [place] [address] Calcium [Mass/Vol] 8.3 mg/dL Low 8.5-10.5 [facility] Comment on above: Performed By: #### 3 2132-1, CMP, CBCA #### [facility] ([id number]) [address], [address] [place] [address] Chloride [Moles/Vol] 104 mmol/L Normal 98-109 [facility] Comment on above: Performed By: #### 3 2132-1, CMP, CBCA #### [facility] ([id number]) [address], [address] [place] [address] CO2 [Moles/Vol] 20 mmol/L Low 22-32 [facility] Comment on above: Performed By: #### 3 2132-1, CMP, CBCA #### [facility] ([id number]) [address], [address] [place] [address] Creatinine [Mass/Vol] 0.53 mg/dL Normal 0.40-1.00 [facility] Comment on above: Result Comment: METH OD TRACEABLE TO IDMS STANDARD Performed By: #### 3 2132-1, CMP, CBCA #### [facility] ([id number]) [address], [address] [place] [address] eGFR (CKD-EPI) NON-RACE DEPENDENT >90 Normal >59 [facility] Comment on above: Result Comment: Reported eGFR is based on the CKD-EPI 2020 equation that does not use a race coefficient. Performed By: #### 3 3-1, CMP, CBCA #### [facility] ([id number]) [address], [address] [place] [address] Glucose [Mass/Vol] 115 mg/dL High 65-99 [facility] Comment on above: Performed By: #### 3 2132-1, CMP, CBCA #### [facility] ([id number]) [address], [address] [place] [address] Potassium [Moles/Vol] 3.6 mmol/L Normal 3.5-5.0 [facility] Comment on above: Performed By: #### 3 2132-1, CMP, CBCA #### [facility] ([id number]) [address], [address] [place] [address] Protein [Mass/Vol] 6.1 g/dL Normal 6.0-8.0 [facility] Comment on above: Performed By: #### 3 2132-1, CMP, CBCA #### [facility] ([id number]) [address], [address] [place] [address] Sodium [Moles/Vol] 136 mmol/L Normal 134-146 [facility] Comment on above: Performed By: #### 3 2132-1, CMP, CBCA #### [facility] ([id number]) [address], [address] [place] [address] Urea nitrogen [Mass/Vol] 3 mg/dL Low 5-23 [facility] Comment on above: Performed By: #### 3 3-1, CMP, CBCA #### [facility] ([id number]) [address], [address] [place] [address] DRUG SCREEN, URINEon 024 AMPHETAMINE/METHAMP Negative Normal NEG [facility] Comment on above: Result Comment: AMPH /METH screening cut off = 1000 ng/mL Performed By: #### D GUILLEN #### [facility] ([id number]) [address], [address] [place] [address] BARBITURATES Negative Normal NEG [facility] Comment on above: Result Comment: Megan iturates screening cut off value = 200 ng/mL Performed By: #### D GUILLEN #### [facility] ([id number]) [address], [address] [place] [address] BENZODIAZEPINES Negative Normal NEG [facility] Comment on above: Result Comment: Giorgio odiazepines screening cut off value = 200 ng/mL Performed By: #### D GUILLEN #### [facility] ([id number]) [address] [place] [address] CANNABINOIDS Negative Normal NEG [facility] Comment on above: Result Comment: Elsie abinoids/THC screening cut off value = 50 ng/mL Performed By: #### D GUILLEN #### [facility] ([id number]) [address], [address] [place] [address] COCAINE METABOLITE Negative Normal NEG [facility] Comment on above: Result Comment: Coca ine screening cut off value = 300 ng/mL Performed By: #### D GUILLEN #### [facility] ([id number]) [address], [address] [place] [address] ECSTASY Negative Normal NEG [facility] Comment on above: Result Comment: Ecst asy screening cut off value = 500 ng/mL This report is intended for use in clinical monitoring or management of patients. Performed By: #### D GUILLEN #### [facility] ([id number]) [address], [address] [place] [address] METHADONE Negative Normal NEG [facility] Comment on above: Result Comment: Meth adone screening cut off value = 300 ng/mL. Performed By: #### D GUILLEN #### [facility] ([id number]) [address], [address] [place] [address] OPIATES Negative Normal NEG [facility] Comment on above: Result Comment: Opia joey screening cut off value = 300 ng/mL NOTE: This test is used for the detection of codeine, hydrocodone (>1000 ng/mL), morphine and hydromorphone (>900 ng/mL) in urine. Performed By: #### D GUILLEN #### [facility] ([id number]) [address], [address] [place] [address] OXYCODONE Negative Normal NEG [facility] Comment on above: Result Comment: Oxyc odone screening cut off value = 300 ng/mL NOTE: This test is used for the detection of oxycodone and oxymorphone in urine. Performed By: #### D GUILLEN #### [facility] ([id number]) [address], [address] [place] [address] PHENCYCLIDINE Negative Normal NEG [facility] Comment on above: Result Comment: Phen cyclidine screening cut off value = 25 ng/mL Performed By: #### D GUILLEN #### [facility] ([id number]) [address] [place] [address] Glucose Glucometer (BldC) [M ass/Vol]on 02-08-2024 Glucose [Mass/Vol] 107 mg/dL High 65-99 [facility] Lactate (P melvin) [Moles/Vol]o n 02-08-2024 LACTATE W/REFLEX 1.0 mmol/L Normal 0.4-2.0 [facility] Comment on above: Result Comment: Result did not trigger repeat Lactate, re-order if needed. Performed By: #### 7 5241-0, 77244-3 #### [facility] ([id number]) [address], [address] [place] [address] LACTATE W/REFLEX 0.8 mmol/L Normal 0.4-2.0 [facility] Comment on above: Result Comment: Result did not trigger repeat Lactate, re-order if needed. Performed By: #### 3 3-1, CMP, CBCA #### [facility] ([id number]) [address], [address] [place] [address] Procalcitonin IA [Mass/Vol]o n 02-08-2024 PROCALCITONIN 0.74 ng/mL High <0.05 [facility] Comment on above: Result Comment: NOTE <0.50 ng/mL - Low risk of severe sepsis and/or septic shock. <2.00 ng/mL - Recommend retesting within 6-24 hours. >2.00 ng/mL - High risk of sepsis and/or septic shock. Performed By: #### 7 5241-0, 42584-7 #### [facility] ([id number]) [address], [address] [place] [address] URINALYSISon 02-08-2024 Bilirubin Ql (U) Negative Normal NEG [facility] Comment on above: Performed By: #### U A #### [facility] ([id number]) [address], [address] [place] [address] BLOOD/HGB Small Abnormal NEG [facility] Comment on above: Performed By: #### U A #### [facility] ([id number]) [address] [place] [address] Color (U) YELLOW Normal YELLOW [facility] Comment on above: Performed By: #### U A #### [facility] ([id number]) [address], [address] [place] [address] Glucose Ql (U) Negative Normal NEG [facility] Comment on above: Performed By: #### U A #### [facility] ([id number]) [address] [place] [address], [address] [place] [address] Ketones Ql (U) 20 mg/dL Abnormal NEG [facility] Comment on above: Performed By: #### U A #### [facility] ([id number]) [address] [place] [address], [address] [place] [address] Leukocyte esterase Test strip Ql (U) Negative Normal NEG [facility] Comment on above: Performed By: #### U A #### [facility] ([id number]) [address] [place] [address], [address] [place] [address] MUCOUS PRESENT Abnormal NONE [facility] Comment on above: Performed By: #### U A #### [facility] ([id number]) [address] [place] [address], [address] [place] [address] Nitrite Ql (U) Negative Normal NEG [facility] Comment on above: Performed By: #### U A #### [facility] ([id number]) [address] [place] [address], [address] [place] [address] pH (U) 8.0 [pH] Normal 5.0-8.5 [facility] Comment on above: Performed By: #### U A #### [facility] ([id number]) [address] [place] [address], [address] [place] [address] Protein Ql (U) Trace Abnormal NEG [facility] Comment on above: Performed By: #### U A #### [facility] ([id number]) [address] [place] [address], [address] [place] [address] R.B.CELLS 16 /hpf High 0-5 [facility] Comment on above: Performed By: #### U A #### [facility] ([id number]) [address] [place] [address], [address] [place] [address] Specific gravity (U) [Rel density] 1.012 Normal 1.003-1.035 [facility] Comment on above: Performed By: #### U A #### [facility] ([id number]) [address] [place] [address] SQUAMOUS EPITHELIUM 1 /hpf Normal 0-[facility] Comment on above: Performed By: #### U A #### [facility] ([id number]) [address], [address] [place] [address] TRANSITIONAL EPITH <1 High 0 [facility] Comment on above: Performed By: #### U A #### [facility] ([id number]) [address], [address] [place] [address] TURBIDITY CLEAR Normal CLEAR [facility] Comment on above: Performed By: #### U A #### [facility] ([id number]) [address], [address] [place] [address] Urobilinogen Qn (U) 2 {Blanca'U}/dL High <1.1 [facility] Comment on above: Performed By: #### U A #### [facility] ([id number]) [address], [address] [place] [address] W.B.CELLS 2 /hpf Normal 0-5 [facility] Comment on above: Performed By: #### U A #### [facility] ([id number]) [address], [address] [place] [address] URINE CULTUREon 02-08-2024 Bacteria identified Cx Nom (U) CULTURE RESULTS NO GROWTH AT <1000 CFU/mL Normal [facility] Comment on above: Performed By: #### 3 2133-1, CMP, CBCA #### [facility] ([id number]) [address], [address] [place] [address] XR CHEST 1 VWon 02-08-2024 XR CHEST [...] MD on 02/08/2024 9:35 AM Normal [facility] URETHRITIS/DISCHARGE PLUS VA GINITIS (HTRX)on 01-27-2024 [...] Comment on above: Nette Holley , Ph.D., [facility] Director References: Available Upon Request. Multiples Of Median Cutoffs For AFP Elevations Rao 2.5 Black 2.8 IDD 2.0 Twins 4.5 Abbreviation Definitions IDD - Insulin Dep Diabetes OSBR - Open Spina Bifida Risk For further inquiries contact [facility] at [phone]. This test was developed and its performance characteristics determined by [facility]. It has not been cleared or approved by the Food and Drug Administration. Performed at: [facility] [address] [place], [place] [id number] Scrap Breaker: Ashley Duggan [facility], Phone: [phone] GEST. AGE ON COLLECTION DATE 17.9 . weeks [facility] GESTAT. AGE BASED ON As provided . [facility] Comment on above: Recalculations are n ot recommended when gestational dating by LMP and ultrasound are within 10 days. INSULIN DEP DIABETES No . [facility] Healthcare INTERPRETATION Comment . [facility] Comment on above: Interpretation: Scre en Negative [...] Customer Services to discuss available options. The [employer] recommends amniocentesis be offered to women age 35 and older. [age] [facility] MULTIPLE GESTATION No . [facility] OSBR RISK 1 IN 40 . [facility] Other . [facility] Responde Ai e RESULTS Report . [facility] Responde Ai e TEST RESULTS: Negative . [facility] WEIGHT 225 . lbs [facility] PREGNANY N N ULTRASOUND [id number] [phone] N 1 Y 225 N N N N N White/ [facility] [employer] Urinalysis macro (dipstick) panel (U)on 01-24-2024 Bilirubin, UA Negative Negative - 4(70) +++ mg/dL [facility] Blood, UA Negative Negative - 50 Slick/mcL [facility] Clarity, UA Clear [facility] Color, UA Yellow [facility] Health[facility] e Glucose, UA Negative Negative - 1999(110) ++++ mg/dL [facility] Interpretation and review of laboratory results Abnormal [facility] Healthcare Ketones, UA Negative Negative - 160(16) ++++ mg/dL [facility] Leukocytes, UA Trace Negative - 500+++ Mira/mcL [facility] Healthcare Nitrite, UA Negative Negative - Positive [facility] pH, UA 6.5 5 - 9 [facility] Healthcar e Protein, UA Negative Negative - 1999(20) ++++ mg/dL [facility] Healthcare Spec Grav, UA 1.020 1 - 1.03 [facility] Urobilinogen, UA 1.0 0.2 - 12 mg/dL [facility] Urinalysis macro (dipstick) panel (U)on 01-03-2024 Bilirubin, UA Negative Negative - 4(70) +++ mg/dL [facility] Blood, UA Positive Negative - 50 Slick/mcL [facility] Comment on above: trace Clarity, UA Clear [facility] Healthca re Color, UA Yellow [facility] Health[facility] e Glucose, UA Negative Negative - 1999(110) ++++ mg/dL [facility] Interpretation and review of laboratory results Abnormal [facility] Ketones, UA Negative Negative - 160(16) ++++ mg/dL [facility] Leukocytes, UA Positive Negative - 500+++ Mira/mcL [facility] Healthcare Comment on above: small Nitrite, UA Negative Negative - Positive [facility] pH, UA 6.0 5 - 9 [facility] Healthcar e Protein, UA Negative Negative - 1999(20) ++++ mg/dL [facility] Healthcare Spec Grav, UA 1.020 1 - 1.03 [facility] Health care Urobilinogen, UA 0.2 0.2 - 12 mg/dL [facility] No Panel InformationOrdered By: Sanaz Lockwood on 08-18-2023 Quick Strep (POC) [facility] COVID + FLU Quick Testingon 04-27-2023 SARS-CoV-2 (COVID-19) RNA J LUIS+probe Ql (Unsp spec) Negative [employer] Other COVID + FLU Quick Testing Negative [employer] Other Quick Strepon 04-27-2023 S. pyogenes Org specific cx Ql (Throat) Negative [employer] Other Quick Strep [employer] Other COVID/FLU/RSV RT-PCRon 05-10 SARS-CoV-2 (COVID-19) RNA J LUIS+probe Ql (Unsp spec) Negative [employer] Other COVID/FLU/RSV RT-PCR Positive [facility] [employer] Other COVID/FLU/RSV RT-PCR Negative [facility] [employer] Other CBC AUTO DIFFon 04-27-2022 BASO # 0.0 103/ul Normal 0.0-0.[address] [facility] Comment on above: Performed By: #### C BC #### [facility] [address] [place] [address] Dr. Dee Humphrey Basophils/100 WBC (Bld) 0.2 % Normal 0.2-2.[address] [facility] Comment on above: Performed By: #### C BC #### [facility] [address] [place] [address] Dr. Dee Humphrey EO # 0.1 103/ul Normal 0.0-0.[address] [facility] Comment on above: Performed By: #### C BC #### [facility] [address] [place] [address] Dr. Dee Humphrey Eosinophils/100 WBC (Bld) 0.6 % Critically low 0.9-7.[address] [facility] Comment on above: Performed By: #### C BC #### [facility] [address] [place] [address] Dr. Dee Humphrey Erythrocyte distribution width (RBC) [Ratio] 14.1 % Normal 11.0-15.[address] [facility] Comment on above: Performed By: #### C BC #### [facility] [address] [place] [address] Dr. Dee Humphrey Hematocrit (Bld) [Volume fraction] 37.1 % Normal 36.0-48.[address] [facility] Comment on above: Performed By: #### C BC #### [facility] [address] [place] [address] Dr. Dee Humphrey Hemoglobin (Bld) [Mass/Vol] 12.4 g/dL Normal 12.0-16.[address] [facility] Comment on above: Performed By: #### C BC #### [facility] [address] [place] [address] Dr. Dee Humphrey IG # 0.06 10e3/ul Critically high 0.00-0.03 [facility] Comment on above: Performed By: #### C BC #### [facility] [address] [place] [address] Dr. Dee Humphrey IG % 0.5 % Normal 0.0-0.[address] [facility] Comment on above: Performed By: #### C BC #### [facility] [address] [place] [address] Dr. Dee Humphrey LYMPH # 3.7 103/ul Normal 1.2-3.[address] [facility] Comment on above: Performed By: #### C BC #### [facility] [address] [place] [address] Dr. Dee Humphrey Lymphocytes/100 WBC (Bld) 28.7 % Normal 20.5-60.[address] [facility] Comment on above: Performed By: #### C BC #### [facility] [address] [place] [address] Dr. Dee Humphrey MANUAL DIFF REQ NO Normal [facility] Comment on above: Performed By: #### C BC #### [facility] [address] [place] [address] Dr. Dee Humphrey MCH (RBC) [Entitic mass] 30.2 pg Normal 26.7-34.[address] [facility] Comment on above: Performed By: #### C BC #### [facility] [address] [place] [address] Dr. Dee Humphrey MCHC (RBC) [Mass/Vol] 33.4 g/dL Normal 29.9-35.[address] [facility] Comment on above: Performed By: #### C BC #### [facility] [address] [address] [address] Dee Humphrey MCV (RBC) [Entitic vol] 90.5 fL Normal 81.0-99.[address] [facility] Comment on above: Performed By: #### C BC #### [facility] [address] [address] [address] Dee Humphrey MONO # 0.7 103/ul Normal 0.3-0.[address] [facility] Comment on above: Performed By: #### C BC #### [facility] [address] [address] [address] Dee Humphrey Monocytes/100 WBC (Bld) 5.0 % Normal 1.7-12.[address] [facility] Comment on above: Performed By: #### C BC #### [facility] [address] [place] [address] Dr. Dee Humphrey NEUT # 8.5 103/ul Critically high 1.4-6.5 [facility] Comment on above: Performed By: #### C BC #### [facility] [address] [place] [address] Dr. Dee Humphrey Neutrophils/100 WBC (Bld) 65.0 % Normal 43.0-75.[address] [facility] Comment on above: Performed By: #### C BC #### [facility] [address] [place] [address] Dr. Dee Humphrey Platelet mean volume (Bld) [Entitic vol] 9.6 fL Normal 9.5-13.[address] [facility] Comment on above: Performed By: #### C BC #### [facility] [address] [place] [address] Dr. Dee Humphrey PLT 317 103/ul Normal 150-450 [facility] Comment on above: Performed By: #### C BC #### [facility] [address] [address] [address] Dee Humphrey RBC 4.10 106/ul Critically low 4.20-5.40 [facility] Comment on above: Performed By: #### C BC #### [facility] [address] [place], [place] [address] Dr. Dee Humphrey WBC 13.1 103/ul Critically high 4.0-11.0 [facility] Comment on above: Performed By: #### C BC #### [facility] [address] [address] [address] ABD/PELVIS WO CONon [...] ROCIO CHAU Date: 2022-04-27 20:24 Normal [facility] ER URINE PROFILEon 2 Bilirubin Ql (U) Negative Normal NEGATIVE [facility] Comment on above: Performed By: #### P CHARLI ERUR #### [facility] [address] [address] [address] Dee Humphrey Clarity (U) CLEAR Normal CLEAR [facility] Comment on above: Performed By: #### P CHARLI ERUR #### [facility] [address] [address] [address] Dee Humphrey Color (U) YELLOW Normal YELLOW [facility] Comment on above: Performed By: #### P REGU, ERUR #### [facility] [address] [address] [address] Dee STANFORD A micrscopic examination will be performed if indicated. Normal [facility] Comment on above: Performed By: #### P REGU, ERUR #### [facility] [address] [address] [address] Dee Humphrey Glucose Ql (U) Negative Normal NEGATIVE [facility] Comment on above: Performed By: #### P REGU, ERUR #### [facility] [address] [place] [address] Dr. Dee Humphrey Hemoglobin Ql (U) Negative Normal NEGATIVE [facility] Comment on above: Performed By: #### P REGU, ERUR #### [facility] [address] [place] [address] Dr. Dee Humphrey Ketones Ql (U) Negative Normal NEGATIVE [facility] Comment on above: Performed By: #### P REGU, ERUR #### [facility] [address] [address] [address] Dee Humphrey LEUKOCYTES Negative Normal NEGATIVE [facility] Comment on above: Performed By: #### P REGU, ERUR #### [facility] [address] [place] [address] Dr. Dee Humphrey Nitrite Ql (U) Negative Normal NEGATIVE [facility] Comment on above: Performed By: #### P REGU, ERUR #### [facility] [address] [address] [address] Dee Humphrey pH (U) 5.5 [pH] Normal 5-9 [facility] Comment on above: Performed By: #### P REGU, ERUR #### [facility] [address] [place] [address] Dr. Dee Humphrey SPEC GRAVITY >=1.030 Abnormal 1.005-<=1.[address] [place] [address] Comment on above: Performed By: #### P REGU, ERUR #### [facility] [address] [address] [address] Dee Humphrey UA PROTEIN Negative Normal NEGATIVE/ TRACE [facility] Comment on above: Performed By: #### P REGU, ERUR #### [facility] [address] [address] [address] Dee Humphrey UR MICRO IND NOT INDICATED Normal [facility] Comment on above: Performed By: #### P REGU, ERUR #### [facility] [address] [address] [address] Dee Humphrey Urobilinogen Qn (U) 0.2 {Blanca'U}/dL Normal 0.2 - 1. [address] [facility] Comment on above: Performed By: #### P REGU, ERUR #### [facility] [address] [place] [address] Dr. Dee Humphrey LIPASEon 04-27-2022 Lipase [Catalytic activity/Vol] 94.0 U/L Normal 73.0-393.[address] [facility] Comment on above: Performed By: #### L IPA, CMP #### [facility] [address] [place] [address] Dr. Dee Humphrey URon 04-27-2022 , QUAL Negative Normal NEGATIVE [facility] Comment on above: Performed By: #### P REGU, ERUR #### [facility] [address] [place] [address] Dr. Dee Humphrey PROF 14(COMP METB)on 022 Albumin [Mass/Vol] 3.9 g/dL Normal 3.4-5.0 [facility] Comment on above: Performed By: #### L IPA, CMP #### [facility] [address] [place] [address] Dr. Dee Humphrey Albumin/Globulin [Mass ratio] 1.0 {ratio} Normal [facility] Comment on above: Performed By: #### L IPA, CMP #### [facility] [address] [address] [address] Dee Humphrey ALP [Catalytic activity/Vol] 87 U/L Normal 46-116 [facility] Comment on above: Performed By: #### L IPA, CMP #### [facility] [address] [address] [address] Dee Humphrey ALT [Catalytic activity/Vol] 31 U/L Normal 14-[address] [facility] Comment on above: Performed By: #### L IPA, CMP #### [facility] [address] [address] [address] Dee Humphrey Anion gap [Moles/Vol] 10.8 mmol/L Normal [facility] Comment on above: Performed By: #### L IPA, CMP #### [facility] [address] [address] [address] Dee Humphrey AST [Catalytic activity/Vol] 17 U/L Normal 15-[address] [facility] Comment on above: Performed By: #### L IPA, CMP #### [facility] [address] [address] [address] Dee Humphrey Bilirubin [Mass/Vol] 0.1 mg/dL Critically low 0.2-1.[address] [facility] Comment on above: Performed By: #### L IPA, CMP #### [facility] [address] [address] [address] Dee Humphrey Calcium [Mass/Vol] 8.9 mg/dL Normal 8.5-10.1 [facility] Comment on above: Performed By: #### L IPA, CMP #### [facility] [address] [address] [address] Dee Humphrey Chloride [Moles/Vol] 103 mmol/L Normal 98-[address] [facility] Comment on above: Performed By: #### L IPA, CMP #### [facility] [address] [address] [address] Dee Humphrey CO2 [Moles/Vol] 26.9 mmol/L Normal 21.0-32.0 [facility] Comment on above: Performed By: #### L IPA, CMP #### [facility] [address] [address] [address] Dee Humphrey Creatinine [Mass/Vol] 0.80 mg/dL Normal 0.55-1.[address] [facility] Comment on above: Performed By: #### L IPA, CMP #### [facility] [address] [address] [address] Dee Humphrey EGFR-AF GERMAN >60 Normal >=60 [facility] Comment on above: Performed By: #### L IPA, CMP #### [facility] [address] [address] [address] Dee Humphrey EGFR-NON AF GERMAN >60 Normal >=[address] [facility] Comment on above: Performed By: #### L IPA, CMP #### [facility] [address] [address] [address] Dee Humphrey Globulin (S) [Mass/Vol] 3.9 g/dL Normal [facility] Comment on above: Performed By: #### L IPA, CMP #### [facility] [address] [address] [address] Dee Humphrey Glucose [Mass/Vol] 96 mg/dL Normal 74-106 [facility] Comment on above: Performed By: #### L IPA, CMP #### [facility] [address] [address] [address] Dee Humphrey Potassium [Moles/Vol] 3.7 mmol/L Normal 3.5-5.[address] [facility] Comment on above: Performed By: #### L IPA, CMP #### [facility] [address] [address] [address] Dee Humphrey Protein [Mass/Vol] 7.8 g/dL Normal 6.4-8.2 [facility] Comment on above: Performed By: #### L IPA, CMP #### [facility] [address] [address] [address] Dee Humphrey Sodium [Moles/Vol] 137 mmol/L Normal 136-145 [facility] Comment on above: Performed By: #### L IPA, CMP #### [facility] [address] [address] [address] Dee Humphrey Urea nitrogen [Mass/Vol] 13.0 mg/dL Normal 7.0-18.[address] [facility] Comment on above: Performed By: #### L IPA, CMP #### [facility] [address] [address] [address] Dee Humphrey Urea nitrogen/Creatinine [Mass ratio] 16.2 mg/mg Normal [facility] Comment on above: Performed By: #### L IPA, CMP #### [facility] [address] [place] [address] Dr. Dee Humphrey CBC AUTO DIFFon 03-07-2022 BASO # 0.0 103/ul Normal 0.0-0.[address] [facility] Comment on above: Performed By: #### C BC #### [facility] [address] [place] [address] Dr. Dee Humphrey Basophils/100 WBC (Bld) 0.3 % Normal 0.2-2.[address] [facility] Comment on above: Performed By: #### C BC #### [facility] [address] [place] [address] Dr. Dee Humphrey EO # 0.1 103/ul Normal 0.0-0.[address] [facility] Comment on above: Performed By: #### C BC #### [facility] [address] [place] [address] Dr. Dee Humphrey Eosinophils/100 WBC (Bld) 0.7 % Critically low 0.9-7.[address] [facility] Comment on above: Performed By: #### C BC #### [facility] [address] [place] [address] Dr. Dee Humphrey Erythrocyte distribution width (RBC) [Ratio] 13.0 % Normal 11.0-15.[address] [facility] Comment on above: Performed By: #### C BC #### [facility] [address] [place] [address] Dr. Dee Humphrey Hematocrit (Bld) [Volume fraction] 39.2 % Normal 36.0-48.[address] [facility] Comment on above: Performed By: #### C BC #### [facility] [address] [place] [address] Dr. Dee Humphrey Hemoglobin (Bld) [Mass/Vol] 13.2 g/dL Normal 12.0-16.[address] [facility] Comment on above: Performed By: #### C BC #### [facility] [address] [place] [address] Dr. Dee Humphrey IG # 0.05 10e3/ul Critically high 0.00-0.03 [facility] Comment on above: Performed By: #### C BC #### [facility] [address] [place] [address] Dr. Dee Humphrey IG % 0.5 % Normal 0.0-0.[address] [facility] Comment on above: Performed By: #### C BC #### [facility] [address] [place] [address] Dr. Dee Humphrey LYMPH # 4.2 103/ul Critically high 1.2-3.8 [facility] Comment on above: Performed By: #### C BC #### [facility] [address] [place] [address] Dr. Dee Humphrey Lymphocytes/100 WBC (Bld) 43.1 % Normal 20.5-60.[address] [facility] Comment on above: Performed By: #### C BC #### [facility] [address] [place] [address] Dr. Dee Humphrey MANUAL DIFF REQ NO Normal [facility] Comment on above: Performed By: #### C BC #### [facility] [address] [place] [address] Dr. Dee Humphrey MCH (RBC) [Entitic mass] 30.5 pg Normal 26.7-34.[address] [facility] Comment on above: Performed By: #### C BC #### [facility] [address] [place] [address] Dr. Dee Humphrey MCHC (RBC) [Mass/Vol] 33.7 g/dL Normal 29.9-35.[address] [facility] Comment on above: Performed By: #### C BC #### [facility] [address] [place] [address] Dr. Dee Humphrey MCV (RBC) [Entitic vol] 90.5 fL Normal 81.0-99.[address] [facility] Comment on above: Performed By: #### C BC #### [facility] [address] [address] [address] Dee Humphrey MONO # 0.4 103/ul Normal 0.3-0.8 [facility] Comment on above: Performed By: #### C BC #### [facility] [address] [address] [address] Dee Humphrey Monocytes/100 WBC (Bld) 4.4 % Normal 1.7-12.[address] [facility] Comment on above: Performed By: #### C BC #### [facility] [address] [address] [address] Dee Humphrey NEUT # 4.9 103/ul Normal 1.4-6.5 [facility] Comment on above: Performed By: #### C BC #### [facility] [address] [place] [address] Dr. Dee Humphrey Neutrophils/100 WBC (Bld) 51.0 % Normal 43.0-75.[address] [facility] Comment on above: Performed By: #### C BC #### [facility] [address] [place] [address] Dr. Dee Humphrey Platelet mean volume (Bld) [Entitic vol] 9.6 fL Normal 9.5-13.5 [facility] Comment on above: Performed By: #### C BC #### [facility] [address] [place] [address] Dr. Dee Humphrey PLT 364 103/ul Normal 150-450 [facility] Comment on above: Performed By: #### C BC #### [facility] [address] [place] [address] Dr. Dee Humphrey RBC 4.33 106/ul Normal 4.20-5.40 [facility] Comment on above: Performed By: #### C BC #### [facility] [address] [place] [address] Dr. Dee Humphrey WBC 9.7 103/ul Normal 4.0-11.0 [facility] Comment on above: Performed By: #### C BC #### [facility] [address] [place] [address] Dr. Dee Humphrey LACTATE/LACTIC ACIDon 2021 Lactate [Moles/Vol] 1.1 mmol/L Normal 0.4-1.9 [facility] Comment on above: Performed By: #### P REGU, ERUR #### [facility] [address] [place] [address] Dr. Dee Humphrey LIPASEon 03-07-2022 Lipase [Catalytic activity/Vol] 79.0 U/L Normal 73.0-393.[address] [facility] Comment on above: Performed By: #### C MP, LIPA #### [facility] [address] [place] [address] Dr. Dee Humphrey PROF 14(COMP METB)on 022 Albumin [Mass/Vol] 3.8 g/dL Normal 3.4-5.0 [facility] Comment on above: Performed By: #### C MP, LIPA #### [facility] [address] [place] [address] Dr. Dee Humphrey Albumin/Globulin [Mass ratio] 0.9 {ratio} Normal [facility] Comment on above: Performed By: #### C MP, LIPA #### [facility] [address] [place] [address] Dr. Dee Humphrey ALP [Catalytic activity/Vol] 80 U/L Normal 46-[address] [facility] Comment on above: Performed By: #### C MP, LIPA #### [facility] [address] [place] [address] Dr. Dee Humphrey ALT [Catalytic activity/Vol] 27 U/L Normal 14-59 [facility] Comment on above: Performed By: #### C MP, LIPA #### [facility] [address] [place] [address] Dr. Dee Humphrey Anion gap [Moles/Vol] 9.5 mmol/L Normal [facility] Comment on above: Performed By: #### C MP, LIPA #### [facility] [address] [place] [address] Dr. Dee Humphrey AST [Catalytic activity/Vol] 13 U/L Critically low 15-[address] [facility] Comment on above: Performed By: #### C MP, LIPA #### [facility] [address] [place] [address] Dr. Dee Humphrey Bilirubin [Mass/Vol] 0.1 mg/dL Critically low 0.2-1.[address] [facility] Comment on above: Performed By: #### C MP, LIPA #### [facility] [address] [place] [address] Dr. Dee Humphrey Calcium [Mass/Vol] 9.0 mg/dL Normal 8.5-10.1 [facility] Comment on above: Performed By: #### C MP, LIPA #### [facility] [address] [place] [address] Dr. Dee Humphrey Chloride [Moles/Vol] 103 mmol/L Normal 98-[address] [facility] Comment on above: Performed By: #### C MP, LIPA #### [facility] [address] [place] [address] Dr. Dee Humphrey CO2 [Moles/Vol] 27.1 mmol/L Normal 21.0-32.0 [facility] Comment on above: Performed By: #### C MP, LIPA #### [facility] [address] [place] [address] Dr. Dee Humphrey Creatinine [Mass/Vol] 0.86 mg/dL Normal 0.55-1.[address] [facility] Comment on above: Performed By: #### C MP, LIPA #### [facility] [address] [place] [address] Dr. Dee Humphrey EGFR-AF GERMAN >60 Normal >=60 [facility] Comment on above: Performed By: #### C MP, LIPA #### [facility] [address] [place] [address] Dr. Dee Humphrey EGFR-NON AF GERMAN >60 Normal >=[address] [facility] Comment on above: Performed By: #### C MP, LIPA #### [facility] [address] [place] [address] Dr. Dee Humphrey Globulin (S) [Mass/Vol] 4.1 g/dL Normal [facility] Comment on above: Performed By: #### C MP, LIPA #### [facility] [address] [place] [address] Dr. Dee Humphrey Glucose [Mass/Vol] 99 mg/dL Normal 74-106 [facility] Comment on above: Performed By: #### C MP, LIPA #### [facility] [address] [place] [address] Dr. Dee Humphrey Potassium [Moles/Vol] 3.6 mmol/L Normal 3.5-5.[address] [facility] Comment on above: Performed By: #### C MP, LIPA #### [facility] [address] [place] [address] Dr. Dee Humphrey Protein [Mass/Vol] 7.9 g/dL Normal 6.4-8.2 [facility] Comment on above: Performed By: #### C MP, LIPA #### [facility] [address] [place] [address] Dr. Dee Humphrey Sodium [Moles/Vol] 136 mmol/L Normal 136-145 [facility] Comment on above: Performed By: #### C MP, LIPA #### [facility] [address] [place] [address] Dr. Dee Humphrey Urea nitrogen [Mass/Vol] 12.0 mg/dL Normal 7.0-18.[address] [facility] Comment on above: Performed By: #### C MP, LIPA #### [facility] [address] [place] [address] Dr. Dee Humphrey Urea nitrogen/Creatinine [Mass ratio] 14.0 mg/mg Normal [facility] Comment on above: Performed By: #### C MP, LIPA #### [facility] [address] [place] [address] Dr. Dee Humphrey Consent for COVID Vaccineon 08-09-2020 SARS-CoV-2 (COVID-19) RNA J LUIS+probe Ql (Unsp spec) [id number]:127 [facility] Consent for Treatmenton 07-30 Consent for Treatment [id number] [facility] [id number]:127 [facility] Coding Summary.on 08-07-2020 Coding Summary. CODING DATE: 08/07/2020 [facility] STATUS: PAYOR: Luzma APC DESCRIPTION [id number] [...] Yana Paredes Date Saved: 08/07/2020 02:46 pm [facility] Ambulatory Clinical Summaryo n 03-25-2020 Ambulatory Clinical Summary {[id number]}CD:[id number] [facility] Patient Educationon 03-19-20 Patient Education lurasidone (loo [...] ? an antiviral such as ritonavir; ? Van Buren's wort; or ? seizure medicine such as [...] (more content not included)... Normal [facility] Video Visit - Telehealtho n 02-23-2020 [...] interactive video communications from my office using [employer] due to the restrictions of the COVID-19 pandemic. No physical exam was conducted other than those areas of the body visible to telecommunications with the patient located at [address] [place] [phone], with no one else in attendance. If [...] Stopped age (more content not included)... Normal [facility] Comment on above: Result Comment: Elec tronically Signed By: Deepa [facility]\Date and Time Signed: 02/22/20 23:17 EDT Video [...] interactive video communications from my office using [employer] due to the restrictions of the COVID-19 pandemic. No physical exam was conducted other than those areas of the body visible to telecommunications with the patient located at [address] [place] [phone], with no one else in attendance. If [...] Sister. Depres (more content not included)... Normal [facility] Comment on above: Result Comment: Elec tronically Signed By: Deepa [facility], Maia Montero.mati\Date and Time Signed: 02/11/20 14:46 [...] interactive video communications from my office using [employer] due to the restrictions of the COVID-19 pandemic. No physical exam was conducted other than those areas of the body visible to telecommunications with the patient located at [address] [place], [place] [id number], with no one else in attendance. If [...] - Denies (more content not included)... Normal [facility] Comment on above: Result Comment: Elec tronically Signed By: Deepa [facility], aMia [email or web address].mati\Date and Time Signed: 02/11/20 14:37 EDT [...] interactive video communications from my office using [employer] due to the restrictions of the COVID-19 pandemic. No physical exam was conducted other than those areas of the body visible to telecommunications with the patient located at [address] [place], [place] [id number], with no one else in attendance. If [...] Tobacco F (more content not included)... Normal [facility] Comment on above: Result Comment: Judith fayeally Signed By: Deepa [facility] Valle\Date and Time Signed: 01/29/20 21:44 EDT Video [...] interactive video communications from my office using [employer] due to the restrictions of the COVID-19 pandemic. No physical exam was conducted other than those areas of the body visible to telecommunications with the patient located at [address] [place], [place] [id number], with no one else in attendance. If [...] Yes, 09 (more content not included)... Normal [facility] Comment on above: Result Comment: Elec tronically Signed By: Deepa [facility], Maia Montero.mati\Date and Time Signed: 01/29/20 21:38 [...] (more content not included)... Normal [facility] Video Visit - Telehealtho n 01-13-2020 [...] interactive video communications from my office using [employer] due to the restrictions of the COVID-19 pandemic. No physical exam was conducted other than those areas of the body visible to telecommunications with the patient located at [address] [place] [address], with no one else in attendance. If [...] Tobacco For (more content not included)... Normal [facility] Comment on above: Result Comment: Elec tronically Signed By: [facility]a [facility], Maia Ashley\.br\Date and Time Signed: [...] (more content not included)... Normal [facility] Video Visit - Telehealtho n 01-07-2020 [...] interactive video communications from my office using [employer] due to the restrictions of the COVID-19 pandemic. No physical exam was conducted other than those areas of the body visible to telecommunications with the patient located at [address] [place] [phone], with no one else in attendance. If [...] Use:. N (more content not included)... Normal [facility] Comment on above: Result Comment: Elec tronically Signed By: Deepa [facility], Maia Montero.mati\Date and Time Signed: [...] interactive video communications from my office using [employer] due to the restrictions of the COVID-19 pandemic. No physical exam was conducted other than those areas of the body visible to telecommunications with the patient located at [address] [place], [place] [id number], with no one else in attendance. If [...] Father and (more content not included)... Normal [facility] Comment on above: Result Comment: Elec tronically Signed By: Deepa [facility], Maia Montero.mati\Date and Time Signed: [...] interactive video communications from my office using [employer] due to the restrictions of the COVID-19 pandemic. No physical exam was conducted other than those areas of the body visible to telecommunications with the patient located at [address] [place] [address], with no one else in attendance. If [...] Alcohol U (more content not included)... Normal [facility] Comment on above: Result Comment: Elec tronically Signed By: Deepa [facility], Maia Montero.mati\Date and Time Signed: 12/23/19 16:54 [...] (more content not included)... Normal [facility] Video Visit - Telehealtho n 12-04-2019 [...] interactive video communications from my office using [employer] due to the restrictions of the COVID-19 pandemic. No physical exam was conducted other than those areas of the body visible to telecommunications with the patient located at [address] [place] [address], with no one else in attendance. If [...] Daily, 5 (more content not included)... Normal [facility] Comment on above: Result Comment: Elec tronically Signed By: [facility]a [facility], Maia Montero.br\Date and Time Signed: [...] rate, h (more content not included)... Normal [facility] Vital Signs Date Time Vital Sign Value Performing Clinician Facility 07-18-2024 13:41-0400 Body mass index (BMI) [Ratio] 38.96 kg/m2 Liza ANTONIO Work Phone: [facility] 07-18-2024 13:41-0400 Body weight 96.62 kg Liza ANTONIO Work Phone: [facility] 07-18-2024 13:41-0400 Diastolic blood pressure 74 mm[Hg] Liza ANTONIO Work Phone: [facility] 07-18-2024 13:41-0400 Systolic blood pressure 110 mm[Hg] Liza ANTONIO Work Phone: [facility] 06-11-2024 15:17-0500 Body mass index (BMI) [Ratio] 40.42 kg/m2 Liza ANTONIO Work Phone: [facility] 06-11-2024 15:17-0500 Body weight 100.25 kg Liza ANTONIO Work Phone: [facility] 06-11-2024 15:17-0500 Diastolic blood pressure 72 mm[Hg] Liza ANTONIO Work Phone: [facility] 06-11-2024 15:17-0500 Systolic blood pressure 118 mm[Hg] Liza ANTONIO Work Phone: [facility] 05-29-2024 14:35-0500 Body mass index (BMI) [Ratio] 41.3 kg/m2 Johnathan Jorje DO Work Phone: [facility] 05-29-2024 14:35-0500 Body weight 102.42 kg Johnathan Jorje DO Work Phone: [facility] 05-29-2024 14:35-0500 Diastolic blood pressure 82 mm[Hg] Johnathan Jorje DO Work Phone: [facility] 05-29-2024 14:35-0500 Systolic blood pressure 118 mm[Hg] Johnathan Jorje DO Work Phone: [facility] 05-22-2024 14:57-0500 Body mass index (BMI) [Ratio] 41.3 kg/m2 Johnathan Jorje DO Work Phone: [facility] 05-22-2024 14:57-0500 Body weight 102.42 kg Johnathan Jorje DO Work Phone: [facility] 05-22-2024 14:57-0500 Diastolic blood pressure 80 mm[Hg] Johnathan Jorje DO Work Phone: [facility] 05-22-2024 14:57-0500 Systolic blood pressure 110 mm[Hg] Johnathan Jorje DO Work Phone: [facility] 05-13-2024 15:04-0500 Body mass index (BMI) [Ratio] 41.67 kg/m2 Liza ANTONIO Work Phone: [facility] 05-13-2024 15:04-0500 Body weight 103.33 kg Liza ANTONIO Work Phone: [facility] 05-13-2024 15:04-0500 Diastolic blood pressure 82 mm[Hg] Liza Kt PA Work Phone: [facility] 05-13-2024 15:04-0500 Systolic blood pressure 140 mm[Hg] Liza [place] PA Work Phone: [facility] 04-03-2024 13:59-0500 Body mass index (BMI) [Ratio] 42.07 kg/m2 Johnathan Jorje DO Work Phone: [facility] 04-03-2024 13:59-0500 Body weight 104.33 kg Johnathan Jorje DO Work Phone: [facility] 04-03-2024 13:59-0500 Diastolic blood pressure 78 mm[Hg] Johnathan Jorje DO Work Phone: [facility] 04-03-2024 13:59-0500 Systolic blood pressure 110 mm[Hg] Johnathan Jorje DO Work Phone: [facility] 03-21-2024 14:01-0500 Body mass index (BMI) [Ratio] 41.7 kg/m2 Liza [place] PA Work Phone: [facility] 03-21-2024 14:01-0500 Body weight 103.42 kg Liza Kt PA Work Phone: [facility] 03-21-2024 14:01-0500 Diastolic blood pressure 72 mm[Hg] Liza Kt PA Work Phone: [facility] 03-21-2024 14:01-0500 Systolic blood pressure 112 mm[Hg] Liza Kt PA Work Phone: [facility] 03-11-2024 14:26-0500 Body mass index (BMI) [Ratio] 41.96 kg/m2 Liza [place] PA Work Phone: [facility] 03-11-2024 14:26-0500 Body weight 104.06 kg Liza Kt PA Work Phone: [facility] 03-11-2024 14:26-0500 Diastolic blood pressure 70 mm[Hg] Liza [place] PA Work Phone: [facility] 03-11-2024 14:26-0500 Systolic blood pressure 120 mm[Hg] Liza ANTONIO Work Phone: [facility] 03-06-2024 11:20-0500 Body mass index (BMI) [Ratio] 41.34 kg/m2 Johnathan Jorje DO Work Phone: [facility] 03-06-2024 11:20-0500 Body weight 102.51 kg Johnathan Jorje DO Work Phone: [facility] 03-06-2024 11:20-0500 Diastolic blood pressure 68 mm[Hg] Johnathan Jorje DO Work Phone: [facility] 03-06-2024 11:20-0500 Systolic blood pressure 120 mm[Hg] Johnathan Jorje DO Work Phone: [facility] 02-21-2024 13:57-0400 Body mass index (BMI) [Ratio] 41.3 kg/m2 Johnathan Jorje DO Work Phone: [facility] 02-21-2024 13:57-0400 Body weight 102.42 kg Johnathan Jorje DO Work Phone: [facility] 02-21-2024 13:57-0400 Diastolic blood pressure 70 mm[Hg] Johnathan Jorje DO Work Phone: [facility] 02-21-2024 13:57-0400 Systolic blood pressure 100 mm[Hg] Johnathan Jorje DO Work Phone: [facility] 02-15-2024 13:03-0400 Body height 160 cm Malena Cardona MD Work Phone: [facility] 02-15-2024 13:03-0400 Body mass index (BMI) [Ratio] 39.65 kg/m2 Malena Cardona MD Work Phone: [facility] 02-15-2024 13:03-0400 Body weight 101.52 kg Malena Cardona MD Work Phone: [facility] 02-15-2024 13:03-0400 Diastolic blood pressure 74 mm[Hg] Malena Cardona MD Work Phone: [facility] 02-15-2024 13:03-0400 Heart rate 94 /min Malena Cardona MD Work Phone: [facility] 02-15-2024 13:03-0400 Systolic blood pressure 123 mm[Hg] Malena Cardona MD Work Phone: [facility] 01-24-2024 11:57-0400 Body mass index (BMI) [Ratio] 41.15 kg/m2 Johnathan Jorje DO Work Phone: [facility] 01-24-2024 11:57-0400 Body weight 102.06 kg Johnathan Jorje DO Work Phone: [facility] 01-24-2024 11:57-0400 Diastolic blood pressure 78 mm[Hg] Johnathan Jorje DO Work Phone: [facility] 01-24-2024 11:57-0400 Systolic blood pressure 124 mm[Hg] Johnathan Jorje DO Work Phone: [facility] 01-03-2024 15:02-0400 Body mass index (BMI) [Ratio] 42.07 kg/m2 Liza ANTONIO Work Phone: [facility] 01-03-2024 15:02-0400 Body weight 104.33 kg Liza ANTONIO Work Phone: [facility] 01-03-2024 15:02-0400 Diastolic blood pressure 74 mm[Hg] Liza ANTONIO Work Phone: [facility] 01-03-2024 15:02-0400 Systolic blood pressure 122 mm[Hg] Liza ANTONIO Work Phone: [facility] 12-25-2023 11:22-0400 Body mass index (BMI) [Ratio] 40.79 kg/m2 Johnathan Jorje DO Work Phone: [facility] 12-25-2023 11:22-0400 Body weight 101.15 kg Johnathan Jorje DO Work Phone: [facility] 12-25-2023 11:22-0400 Diastolic blood pressure 76 mm[Hg] Johnathan Jorje DO Work Phone: [facility] 12-25-2023 11:22-0400 Systolic blood pressure 122 mm[Hg] Johnathan Jorje DO Work Phone: [facility] 08-18-2023 14:24-0400 Body height 160.[address] [facility] 08-18-2023 14:24-0400 Body mass index (BMI) [Ratio] 40.2 kg/m2 [facility] 08-18-2023 14:24-0400 Body temperature 98.4 [degF] [facility] 08-18-2023 14:24-0400 Body weight 103.[address] [facility] 08-18-2023 14:24-0400 Diastolic blood pressure 81 mm[Hg] [facility] 08-18-2023 14:24-0400 Heart rate 101 /min [facility] 08-18-2023 14:24-0400 Respiratory rate 16 /min [facility] 08-18-2023 14:24-0400 SaO2% (BldA) [Mass fraction] 98 % [facility] 08-18-2023 14:24-0400 Systolic blood pressure 133 mm[Hg] [facility] 04-27-2023 16:30-0500 Body height 160.02 cm Sanaz Lockwood Other [employer] [facility] [employer] Other 04-27-2023 16:30-0500 Body mass index (BMI) [Ratio] 40.92 kg/m2 Sanaz Lockwood Other [employer] Other 04-27-2023 16:30-0500 Body temperature 98.2 [degF] Sanaz Lockwood Other [employer] Other 04-27-2023 16:30-0500 Body weight 104.78 kg Sanaz Lockwood Other [employer] Other 04-27-2023 16:30-0500 Respiratory rate 18 /min Sanaz Lockwood Other [employer] Other 04-27-2023 16:30-0500 SaO2% (BldA) [Mass fraction] 99 % Sanaz Lockwood Other [employer] Other 05-10-2022 14:45-0500 Body height 160.02 cm Kaylah Lottault Other [employer] Other 05-10-2022 14:45-0500 Body mass index (BMI) [Ratio] 38.97 kg/m2 Kaylah Guille Other [employer] Other 05-10-2022 14:45-0500 Body temperature 99.3 [degF] Kaylah Lottault Other [employer] Other 05-10-2022 14:45-0500 Body weight 99.79 kg Kaylah Lottault Other [employer] Other 06-29-2019 22:40-0500 Pulse (Heart Rate) 84 /min [facility] 06-29-2019 22:40-0500 Pulse Oximetry 97 % [facility] 06-29-2019 22:35-0500 BP Diastolic 56 mm[Hg] [facility] 06-29-2019 22:35-0500 BP Systolic 100 mm[Hg] [facility] 06-29-2019 21:11-0500 BMI (Body Mass Index) 33.1 kg/m2 [facility] 06-29-2019 21:11-0500 Body Temperature 97.8 [degF] [facility] 06-29-2019 21:11-0500 Body weight 84.8 kg Kimberlyn [facility] 06-29-2019 21:11-0500 Height 160.02 cm [facility] 06-29-2019 21:11-0500 Respiratory Rate 20 /min Kimberlyn [facility] Encounters Encounter Date Encounter Type Care Provider Facility Start: 10-21-2024 End: 10-21-2024 ambulatory Jose Pay Facility:[facility] Start: 07-18-2024 End: 07-18-2024 ambulatory LIZA DUQUE [...] 05-31-2024 End: 05-31-2024 Clinisync Result Encounter Liza Kt ANTONIO Work Phone: [facility] Unsolicited [...] flow sheet Johnathan Jorje DO Work Phone: [facility] Comment on above: Third trimester preg k[place]; 35 weeks gestation of ; Gestational diabetes mellitus (GDM) in third trimester, gestational diabetes method of control unspecified Start: 05-22-2024 End: 05-22-2024 Bamboo flowsheet Johnathan Jorje DO Work Phone: [facility] Start: 05-22-2024 End: 05-22-2024 Bamboo flowsheet Johnathan Jorje DO Work Phone: [facility] Start: 05-13-2024 End: 05-13-2024 ambulatory LIZA DUQUE Not Available Start: 05-13-2024 End: 05-13-2024 Bamboo flowsheet Liza ANTONIO Work Phone: [facility] Start: 05-13-2024 End: 05-13-2024 Bamboo flowsheet Liza ANTONIO Work Phone: [facility] Start: 05-13-2024 End: 05-13-2024 flow sheet Liza ANTONIO Work Phone: [facility] Comment on above: 33 weeks [...] Start: 04-22-2024 End: 04-22-2024 ambulatory Johnathan Jorje Facility:[facility] Start: 04-03-2024 End: 04-03-2024 Bamboo flowsheet Johnathan Jorje DO Work Phone: [facility] Start: 04-03-2024 End: 04-06-2024 Bamboo flowsheet Johnathan Jorje DO Work Phone: [facility] Start: 04-03-2024 End: 04-06-2024 External Result Encounter Johnathan Jorje DO Work Phone: [facility] External Department Unsolicited Start: 04-03-2024 End: 04-03-2024 flow sheet Johnathan Jorje DO Work Phone: [facility] Comment on above: 28 weeks gestation o f ; Third trimester ; Flank pain; Acute cystitis with hematuria; Urinary tract infection without hematuria, site unspecified Start: 04-03-2024 End: 04-03-2024 ambulatory JOHNATHAN JORJE Not Available Start: 03-21-2024 End: 03-21-2024 Clinisync Result Encounter Johnathan Jorje DO Work Phone: [facility] External Department Unsolicited Start: 03-21-2024 End: 03-21-2024 Clinisync Result Encounter Johnathan Jorje DO Work Phone: [facility] Unsolicited Start: 03-21-2024 End: 03-21-2024 ambulatory LIZA DUQUE Not Available Start: 03-21-2024 End: 03-21-2024 flow sheet Liza ANTONIO Work Phone: [facility] Comment on above: Second trimester pre gnancy; 26 weeks gestation of ; Elevated glucose tolerance test; Gestational diabetes mellitus (GDM), antepartum, gestational diabetes method of control unspecified Start: 03-14-2024 End: 03-14-2024 ambulatory JOHNATHAN R JORJE [facility] Start: 03-11-2024 End: 03-11-2024 Bamboo flowsheet Liza ANTONIO Work Phone: [facility] Start: 03-11-2024 End: 03-11-2024 Bamboo flowsheet Liza ANTONIO Work Phone: [facility] Start: 03-11-2024 End: 03-11-2024 ambulatory LIZA DUQUE Not Available Start: 03-11-2024 End: 03-11-2024 flow sheet Liza Duque PA Work Phone: [facility] Comment on above: 24 weeks gestation o f ; Second trimester ; Acute cystitis with hematuria Start: 03-06-2024 End: 03-06-2024 Clinisync Result Encounter Johnathan Jorje DO Work Phone: [facility] External Department Unsolicited Start: 03-06-2024 End: 03-06-2024 Clinisync Result Encounter Johnathan Jorje DO Work Phone: [facility] External Department Unsolicited Start: 03-06-2024 End: 03-06-2024 ambulatory JOHNATHAN JORJE Not Available Start: 03-06-2024 End: 03-06-2024 flow sheet Johnathan Jorje DO Work Phone: [facility] Comment on above: 24 weeks gestation o f ; Second trimester ; Flank pain; Acute cystitis with hematuria Start: 02-26-2024 End: 02-26-2024 ambulatory [facility] Start: 02-21-2024 End: 02-21-2024 Bamboo flowsheet Johnathan Jorje DO Work Phone: [facility] Start: 02-21-2024 End: 02-21-2024 Bamboo flowsheet Johnathan Jorje DO Work Phone: [facility] Start: 02-21-2024 End: 02-21-2024 ambulatory JOHNATHAN JORJE Not Available Start: 02-21-2024 End: 02-21-2024 flow sheet Johnathan Jorje DO Work Phone: [facility] Comment on above: 22 weeks gestation o f ; Second trimester ; Diabetes mellitus screening Start: 02-15-2024 End: 02-15-2024 Office consultation new/estab patient 60 min Malena Cardona MD Work Phone: [facility] Comment on above: 21 weeks gestation o f (Primary Dx); Multigravida of advanced maternal age in second trimester; Pyelonephritis affecting in second trimester; Bipolar disease during in second trimester ([facility]); Obesity affecting in second trimester, unspecified obesity type; BMI 39.0-39.9,adult; History of section complicating ; Vapes nicotine containing substance; Current rao with 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 Comment on above: 21 weeks gestation o f (Primary Dx); Obesity affecting in second trimester, unspecified obesity type Start: 02-15-2024 End: 02-15-2024 ambulatory JOHNATHAN R [facility] Start: 02-09-2024 End: 02-09-2024 Evaluation and management of inpatient TEJ ZENG [facility] Start: 02-08-2024 End: 02-09-2024 Evaluation and management of inpatient NATO LLOYD [facility] Start: 01-25-2024 End: 01-25-2024 Chart abstracting Malena Cardona MD Work Phone: [facility] Start: 01-24-2024 End: 01-24-2024 Bamboo flowsheet [...] encounter procedure Johnathan Jorje DO Work Phone: [facility] Start: 01-24-2024 End: 01-24-2024 Periodic preventive med est patient 18-39 yrs Johnathan Jorje DO Work Phone: [facility] Comment on above: 18 weeks gestation o f ; Well woman exam with routine gynecological exam; Screening, , for anatomic survey; Exposure to STD; Vaginal discharge Start: 01-03-2024 End: 01-03-2024 flow sheet Liza Duque PA Work Phone: [facility] Comment on above: Rash; Second trimester Start: 01-03-2024 End: 01-03-2024 ambulatory LIZA DUQUE Not Available Start: 12-25-2023 End: 12-25-2023 Bamboo flowsheet Johnathan Jorje DO Work Phone: [facility] Start: 12-25-2023 End: 12-25-2023 Bamboo flowsheet Johnathan Jorje DO Work Phone: [facility] Start: 12-25-2023 End: 12-25-2023 ambulatory JOHNATHAN JORJE Not Available Start: 12-25-2023 End: 12-25-2023 flow sheet Johnathan Jorje DO Work Phone: [facility] Comment on above: Second trimester pre gnancy Start: 11-24-2023 End: 11-24-2023 ambulatory JOHNATHAN JORJE Not Available Start: 08-18-2023 End: 08-18-2023 ambulatory [facility] Work Phone: Start: 08-18-2023 End: 08-18-2023 Patient encounter procedure [facility] Work Phone: Start: 04-27-2023 End: 04-27-2023 ambulatory Sanaz Lockwood Other [employer] Other Start: 04-27-2023 Office outpatient vi sit 25 minutes Sanaz Lockwood [facility] Start: 05-10-2022 End: 05-10-2022 ambulatory Kaylah Guille Other [facility] [employer] Other Start: 05-10-2022 Office outpatient ne w 20 minutes Kaylah Guille [facility] Start: 04-27-2022 End: 04-27-2022 ambulatory KIMBERLYN XIE Facility:[facility] Start: 03-07-2022 End: 03-07-2022 ambulatory KIMBERLYN XIE Facility:[facility] Start: 09-23-[address] JAZIEL HILL Facility :[facility] Start: 06-29-2019 End: 06-29-2019 Emergency department patient visit Kimberlyn Xie [facility] Procedures Date Procedure Procedure Detail [...] Work Phone: Start: 04-22-2024 [facility] UA (CLEAN/CATCH) DRAFTER AUTOMOTIVE DESIGN/MICRO IF IND. Johnathan Jorje DO Work Phone: [...] Work Phone: Start: 03-06-2024 [facility] UA (CLEAN/CATCH) DRAFTER AUTOMOTIVE DESIGN/MICRO IF IND. Johnathan Jorje DO Work Phone: [...] Screening for malign ant neoplasm of cervix [facility] Start: 02-14-2025 Adult BMI Screening Adult BMI Screen ing [facility] Start: 02-14-2025 Tobacco Screening Tobacco Screening [facility] Start: 02-14-2025 End: 02-14-2025 US MFM with or without consult US MFM with or without consult Imaging Routine 21 weeks gestation of Obesity affecting in second trimester, unspecified obesity type Expected: 02/14/2025 (Approximate), Expires: 02/14/2025 [employer] Work Phone: Comment on above: Expected: 02/14/2025 (Approximate), Expires: 02/14/2025 Start: 06-11-2024 End: 06-11-2024 Patient encounter procedure 06/11/2024 2:40 PM EST Office Visit [facility] [address] [place] [address] Liza Duque PA [address] [place], [place] [id number] [facility] Start: 05-29-2024 End: 05-29-2024 Patient encounter procedure 05/29/2024 2:20 PM EST Routine [facility] [address] [place] [address] Johnathan Recinos DO [address] [place] [address] [facility] Start: 05-29-2024 End: 05-29-2025 CULTURE, GROUP B STREP WITH SUSCEPTIBLITY CULTURE, GROUP B STREP WITH SUSCEPTIBLITY Lab Routine Third trimester Expected: 05/29/2024, Expires: 05/29/2025 [facility] Work Phone: Comment on above: Expected: 05/29/2024 , Expires: 05/29/2025 Start: 05-22-2024 End: 05-22-2024 Patient encounter procedure 05/22/2024 2:20 PM EST Routine [facility] [address] [place] [id number] Johnathan Recinos, DO [address] [place], [place] [id number] [facility] Start: 05-13-2024 End: 05-13-2025 [...] Procedure [facility] [address] [place] [id number] [facility] Start: 04-03-2024 End: 04-03-2024 Patient encounter procedure [facility] Comment on above: Arrived Start: 04-03-2024 End: 04-03-2024 Professional / ancillary services management 04/03/2024 1:00 PM EST Ancillary Procedure [facility] [address] [place] [phone] [facility] Start: 03-21-2024 End: 03-21-2025 [...] control unspecified Expected: 03/21/2024 (Approximate), Expires: 03/21/2025 [facility] Comment on above: Expected: 03/21/2024 (Approximate), Expires: 03/21/2025 Start: 03-21-2024 End: 03-21-2024 Patient encounter procedure 03/21/2024 1:30 PM EST Routine [facility] [address] [place] [phone] Liza Duque PA [address] [place] [address] [facility] Start: 03-14-2024 End: 03-14-2024 Patient encounter procedure 03/14/2024 9:45 AM EST Appointment [facility] [address] [place] [phone] [facility] Start: 02-22-2024 End: 02-22-2024 Patient encounter procedure 02/22/2024 10:15 AM EDT Appointment [facility] [address] [place] [phone] [facility] Start: 02-21-2024 End: 02-20-2025 CBC panel - Blood by Automated count CBC Lab Routine Diabetes mellitus screening Expected: 02/21/2024 (Approximate), Expires: 02/20/2025 [facility] Work Phone: Comment on above: Expected: 02/21/2024 (Approximate), Expires: 02/20/2025 Start: 02-21-2024 End: 02-20-2025 Measurement of glucose 1 hour after glucose challenge for glucose tolerance test Glucose tolerance, 1 hour Lab Routine Diabetes mellitus screening Expected: 02/21/2024 (Approximate), Expires: 02/20/2025 [facility] Comment on above: Expected: 02/21/2024 (Approximate), Expires: 02/20/2025 Start: 02-21-2024 End: 02-21-2024 Patient encounter procedure 02/21/2024 1:50 PM EDT Routine [facility] [address] [phone] Johnathan Recinos, DO [address] [place] [address] [facility] Start: 02-12-2024 End: 02-12-2024 Patient encounter procedure [facility] Start: 01-24-2024 End: 02-23-2024 Alpha fetoprotein, maternal Alpha fetoprotein, maternal Lab Routine 18 weeks gestation of Expected: 01/24/2024 (Approximate), Expires: 02/23/2024 [facility] Comment on above: Expected: 01/24/2024 (Approximate), Expires: 02/23/2024 Start: 01-22-2024 End: 01-22-2024 Patient encounter procedure 01/22/2024 10:20 AM EDT Routine [facility] [address] [place] [phone] Johnathan Recinos, DO [address] [place] [address] [facility] Start: 12-31-2023 COVID-19 Vaccine ( season) COVID-19 Vaccine ( season) [facility] Start: 12-31-[address] [facility] Start: 10-11-2021 DTaP,Tdap and Td Vaccines (2 - Td or Tdap) DTaP,Tdap and Td Vaccines (2 - Td or Tdap) [facility] Start: 2017 Screening for malign ant neoplasm of cervix [facility] Start: 2008 Screening for malign ant neoplasm of cervix Pap Smear [facility] Start: 2005 Adult BMI Follow Up Plan Adult BMI Follow Up Plan [facility] Start: 2005 Adult BMI Screening Adult BMI Screen ing [facility] Start: 1999 Depression Screening Depression Scre ening [facility] Start: 1999 Tobacco Screening Tobacco Screening [facility] Bacteria identified in Urine by Culture Urine culture Microbiology Routine 24 weeks gestation of Second trimester Ordered: 03/06/2024 [facility] Work Phone: Comment on above: Ordered: 03/06/2024 Bacteria identified in Urine by Culture Urine culture Microbiology Routine Flank pain Acute cystitis with hematuria Urinary tract infection without hematuria, site unspecified Ordered: 04/03/2024 [facility] Work Phone: Comment on above: Ordered: 04/03/2024 CHLAMYDIA TRACHOMATI S (GENITO/STI) CHLAMYDIA TRACHOMATIS (GENITO/STI) Lab Routine Exposure to STD Ordered: 01/24/2024 [facility] Comment on above: Ordered: 01/24/2024 Cytology Cervical or vaginal smear or scraping study Pap Smear Pathology and Cytology Routine Well woman exam with routine gynecological exam Ordered: 01/24/2024 [facility] Comment on above: Ordered: 01/24/2024 Human papilloma viru s DNA [Presence] in Unspecified specimen by Probe with amplification HPV DNA probe, amplified Microbiology Routine Well woman exam with routine gynecological exam Ordered: 01/24/2024 [facility] Comment on above: Ordered: 01/24/2024 Neisseria gonorrhoea e DNA [Presence] in Unspecified specimen by J LUIS with probe detection Neisseria gonorrhea DNA probe, direct Lab Routine Exposure to STD Ordered: 01/24/2024 [facility] Comment on above: Ordered: 01/24/2024 Patient Education Epinephrine (B y injection) Anaphylaxis (ED) General Allergic Reaction (ED) [facility] Patient referral [facility] SURESWAB(R) ADVANCED VAGINITIS PLUS, TMA SURESWAB(R) ADVANCED VAGINITIS PLUS, TMA Pathology and Cytology Routine Vaginal discharge Ordered: 01/24/2024 [facility] Work Phone: Comment on above: Ordered: 01/24/2024 Immunizations Immunization Date Immunization Notes Care Provider Butch sims 06-02-2008 influenza virus vacc ine, unspecified formulation Johnathan Recinos DO Work Phone: [facility] Payers Date Payer Category Payer Self-pay [id number] 2024 Medicaid [id number] 2024 Medicaid [id number] 2023 [facility] Blue Shield BCBS [id number] 2023 [facility] Managed Care - PPO ANTHEM [id number] 2023 Unknown BCBS BCBS [id number] [id number] 2023-Present [phone] [address] [place] [address] [id number]. [id number] 2015 Private Health Insurance [id number] .[id number]. [id number] 1987 Unknown [id number] 2.16.840.1.958163.3.579.2. 593 1987 Unknown [id number] 2.16.840.1.814830.3.579.2. 593 1987 Unknown [id number] 2.16.840.1.923424.3.579.2. 593 1987 Unknown [id number] 2.16.840.1.927128.3.579.2. 1286 1987 Unknown [id number] 2.16.840.1.778222.3.579.2. 1286 1987 Unknown [id number] 2.16.840.1.776070.3.579.2. 1286 1987 Unknown [id number] 2.16.840.1.052251.3.579.2. 1286 1987 Unknown [id number] 2.16.840.1.779551.3.579.2. 1286 1987 Unknown [id number] 2.16.840.1.345681.3.579.2. 1286 1987 Unknown [id number] 2.16.840.1.942900.3.579.2. 1259 1987 Unknown [id number] 2.16.840.1.469816.3.579.2. 1259 1987 Unknown [id number] 2.16.840.1.151731.3.579.2. 1259 1987 Unknown [id number] 2.16.840.1.994570.3.579.2. 9 1987 Unknown [id number] 2.16.840.1.073301.3.579.2. 1258 1987 Unknown [id number] 2.16.840.1.576523.3.579.2. 1258 1987 Unknown [id number] 2.16.840.1.404139.3.579.2. 1258 1987 Unknown [id number] 2.16.840.1.019634.3.579.2. 1258 1987 Unknown [id number] 2.16.840.1.564903.3.579.2. 1258 1987 Unknown [id number] 2.16.840.1.307023.3.579.2. 1258 1987 Unknown [id number] 2.16.840.1.806145.3.579.2. 1258 1987 Unknown [id number] 2.16.840.1.558330.3.579.2. 1258 1987 Unknown [id number] 2.16.840.1.373535.3.579.2. 1258 1987 Unknown [id number] 2.16.840.1.835860.3.579.2. 1258 1987 Unknown [id number] 2.16.840.1.765989.3.579.2. 9 1959 Self-pay [id number] 1959 Unknown [id number] Private Health Insurance [id number] Unknown [id number] 2.16.840.1.750942.3.579.2. 531 Unknown [id number] 2.16.840.1.682707.3.579.2. 531 Social History Date Type Detail Facility Start: 06-29-2019 End: 08-18-2023 Tobacco smoking status NDIS Smoker (finding) [facility] Start: 1985 Sex Assigned At Female [facility] Start: 06-10-2020 End: 02-15-2024 Sex Assigned At [employer] Other Tobacco smoking stat us [facility] Tobacco smoking consumption unknown [facility] Start: 10-03-2023 [facility] Start: 10-26-2023 Gender identity Identifies as female gender (finding) [facility] Start: 03-12-2019 End: 02-15-2024 Tobacco smoking status NDIS Ex-smoker [facility] Start: 03-12-2019 End: 02-15-2024 Tobacco use and exposure Smokeless tobacco non-user [facility] Start: 02-15-2024 Alcoholic beverage intake Lifetime non-drinker (finding) [facility] Start: 06-10-2020 End: 02-15-2024 History of Social function [facility] Childcare Unknown [facility] Start: 03-12-2019 End: 02-15-2024 Tobacco Comment [facility] Start: 1985 Sex assigned at Not on file [employer] [facility] Start: 12-02-2014 Sex Female (finding) [facility] Start: 02-08-2024 Sexual orientation Heterosexual (finding) [facility] Medical Equipment Procedure Code Equipment Code Equipment Original Text Equipment Identifier Dates 1 strip by In Vi tro route Daily Use in the morning prior to breakfast, 1 hour after each meal for a total of 4times daily. [id number] Start: 03-25-2024 End: 04-24-2024 1 each by In Vit ro route Daily Use to check FSBS four times daily [id number] Start: 03-25-2024 End: 04-24-2024 Inject 1 each un vickie the skin See administration instructions Use four times daily with insulin pen. [id number] Start: 05-13-2024 End: 06-12-2024 Use as instructed [id number] Start: 05-22-2024 Goals Date Patient Goal Desired Activity /State Personal health goal Comment on above: Formatting of this n ote might be different from the original. Evaluation of progress towards goal: go home today Clinical Notes 12-02-2019 to 07-18-2024 Liza Duque, PACO - 07/18/2024 1:30 PM PACO Hwang - 06/11/2024 2:40 PM Meghna Hendricks, AUTOMOTIVE ENGINEERING TEACHER - 05/29/2024 2:20 PM Meghna Hendricks, AUTOMOTIVE ENGINEERING TEACHER - 05/22/2024 2:20 PM Meghna Hendricks, AUTOMOTIVE ENGINEERING TEACHER - 04/03/2024 1:40 PM EST Note Date [...] of: PACO Freed documented in this encounter [facility] 06-11-2024 History of Present illness Narrative Reason [...] of: PACO Freed documented in this encounter [facility] 05-29-2024 History of Present illness Narrative Reason [...] nursing note reviewed. Exam conducted with a cloth desizing range tender present. Vitals: Estimated body mass index is [...] Johnathan Recinos DO documented in this encounter [facility] 05-22-2024 History of Present illness Narrative Reason [...] nursing note reviewed. Exam conducted with a cloth desizing range tender present. Vitals: Estimated body mass index is [...] Johnathan Recinos DO documented in this encounter [facility] 05-13-2024 History of Present illness Narrative Reason [...] History: Diagnosis Date Bipolar 1 disorder (CMS/[facility]) Social History Tobacco Use Smoking status: Not [...] nursing note reviewed. Exam conducted with a cloth desizing range tender present. Vitals: Estimated body mass index is [...] Barbara Guillermo LPN on behalf of: Johnathan Recnios DO documented in this encounter [facility] 04-03-2024 History of Present illness Narrative Reason for Appointment: Patient ID: Mikaela Ruiz is a 38 y.o. female who presents for Routine Visit Patient presents today for Return OB appointment. MEDICATIONS Current Outpatient Medications Medication Instructions Alcohol Swabs (Alcohol Prep Pad) 70 % pads 1 Pad, Topical, Daily, Use four times daily to check FSBS. aspirin 81 mg, Daily Blood Glucose Monitoring Suppl ([employer] Glucometer) w/Device kit 1 kit, Does not [...] Medical History: Diagnosis Date Bipolar 1 disorder ([facility]) HISTORY PAST MEDICAL HISTORY SOCIAL HISTORY Past Medical History: Diagnosis Date Bipolar 1 disorder ([facility]) Social History Tobacco Use Smoking status: Not [...] nursing note reviewed. Exam conducted with a cloth desizing range tender present. Vitals: Estimated body mass index is [...] Johnathan Recinos DO documented in this encounter [facility] 03-21-2024 History of Present illness Narrative Reason [...] hour glucose order to have done at [facility]. Patient DECLINES 3 hour gtt and would like to start testing FSBS--Patient will be referred to Diabetic Edu at [facility]. Follow Up: Patient is to return to office in 2 week for routine OB appointment. Documented by Nettie Frazier MA on behalf of: PACO Freed documented in this encounter [facility] 03-11-2024 History of Present illness Narrative Reason [...] nursing note reviewed. Exam conducted with a cloth desizing range tender present. Vitals: Estimated body mass index is [...] of . Nursing will reach out to [facility] to inquire about culture results. Patient does have follow up appointment with Maternal Medicine. Patient to return to clinic in 4 weeks for routine OB appointment. Documented by Barbara Guillermo LPN on behalf of: PACO Freed documented in this encounter [facility] 03-06-2024 History of Present illness Narrative Reason [...] Medical History: Diagnosis Date Bipolar 1 disorder ([facility]) HISTORY PAST MEDICAL HISTORY SOCIAL HISTORY Past Medical History: Diagnosis Date Bipolar 1 disorder ([facility]) Social History Tobacco Use Smoking status: Not [...] nursing note reviewed. Exam conducted with a cloth desizing range tender present. Vitals: Estimated body mass index is [...] Johnathan Recinos DO documented in this encounter [facility] 02-21-2024 History of Present illness Narrative Reason [...] Medical History: Diagnosis Date Bipolar 1 disorder ([facility]) HISTORY PAST MEDICAL HISTORY SOCIAL HISTORY Past Medical History: Diagnosis Date Bipolar 1 disorder ([facility]) Social History Tobacco Use Smoking status: Not [...] nursing note reviewed. Exam conducted with a cloth desizing range tender present. Vitals: Estimated body mass index is [...] Johnathan Recinos DO documented in this encounter [facility] 02-15-2024 History of Present illness Narrative [facility] [...] Medical History: Diagnosis Date Bipolar 1 disorder ([facility]) Depression PSHIST: Past Surgical History: Procedure Laterality [...] 4. Bipolar disease during in second trimester ([facility]) I reviewed with the patient that stability [...] of withdrawal and extrapyramidal effects on reviewed. Intern should be notified. Lack of controlled human [...] . For prevention of venous thromboembolism in lbrz-impy-hsdg groups, pharmacologic thromboprophylaxis should be considered in [...] prevention Cervical length at 22 weeks at [facility] Follow up survey scheduled Serial growth assessments every 4 weeks after the anatomy scan can be done at OB office. ventricles should be measured at each US. If >=10 mm or concern for hydrocephalus refer to M. If you would like [facility] to do the growth US please [...] Cardona MD, FACOG (she/hers) Maternal- Medicine [facility] [address] [place] [address] This document was created with Ausra technology. Though I make every effort to review the dictation as it is transcribed, on occasion the spoken word can be misinterpreted by the technology leading to inappropriate words, phrases, or sentences. This note is addressed to the requesting provider as a consultation for clinical guidance. Specific medical abbreviations are occasionally used and those are generally approved by the [place]?Board of?Obstetrics and?Gynecology?as well as?Jeri lane abbreviations. The above plan of care was based solely on the diagnoses for which a consultation was requested. ?More frequent testing may be indicated based on her other medical/obstetrical conditions. The management of other or medical conditions is beyond the scope of requested consultation and will continue to be followed by the primary naval engineer or primary care provider. Note to patient: [...] yes Have you been seen here at [facility] in a previous ? yes Recent ER visits or hospitalizations? 02/07 kidney and bladder infection Bring blood sugar log or meter with you today? (Please bring them with you for every visit at [facility]) na Flu vaccine (Mar-June)? na Any concerns that you would like me to mention to the provider today? no documented in this encounter [facility] 01-24-2024 History of Present illness Narrative [...] History: Diagnosis Date Bipolar 1 disorder ([facility]) HISTORY PAST MEDICAL HISTORY SOCIAL HISTORY Past [...] 4 section, pt to be referred to [facility] for level II ultrasound. Pt to [...] Johnathan Recinos DO documented in this encounter [facility] 01-03-2024 History of Present illness Narrative Reason [...] of: PACO Freed documented in this encounter [facility] 12-25-2023 History of Present illness Narrative Reason [...] nursing note reviewed. Exam conducted with a cloth desizing range tender present. Vitals: Estimated body mass index is [...] or undercooked meat, and stay away from [facility]. Patient has been consulted regarding any further do's and don'ts of . Patient voiced understanding and all questions and concerns were answered. Patient complaints of nausea not helped by oral medications. [facility] Patient aware that [facility] will reach out to her to initiate therapy. Follow Up: Patient is to return in 4 weeks for routine OB appointment. Documented by Barbara Guillermo LPN on behalf of: Liza Duque PA-C documented in this encounter [facility] 04-27-2023 Evaluation note Encounter Date Diagnosis Assessment [...] condition. Mar, Sore throat (ICD-10 - J02.9) [employer] Other 01-10-2023 Evaluation note* Encounter Date Diagnosis [...] weeks for the cough to go away [employer] Other 11-07-2022 NoteIndication: Abdominal pain. Comparison: None [...] Electronically authenticated by: SURJIT FREITAS Date: 2022-03-07 20:49[facility]11-19-2020 NoteHPI Staff This visit was conducted via phone communications from my office due to the restrictions of the COVID-19 pandemic. No physical exam was conducted due to audio only communication with the patient located at [address] [place] [phone], with no one else. If it is [...] up via telehealth phone from [facility]. Patient started Latuda 20mg last evening [...] # 30 tab(s), Refills(s) 2, Pharmacy: [facility]/pharmacy #[id number], 161, cm, 12/23/19 10:18:00 EDT, Height/Length Dosing, 82, kg, 12/23/19 10:18:00 EDT, Weight Dosing Orders: lurasidone, 20 mg = 1 tab(s), Oral, Daily, with 350 calories; begin this dose first then progress to next dose of 40mg, X 1 week(s), # 7 tab(s), Refills(s) 0, Pharmacy: [facility]/pharmacy #[id number], 161, cm, 12/23/19 10:18:00 EDT, Height/Length Dosing, 82, kg, 12/23/19 10:... lurasidone, 40 mg = 1 tab(s), Oral, Daily, with 350 calories, # 30 tab(s), Refills(s) 1, Pharmacy: [facility]/pharmacy #[id number], 161, cm, 12/23/19 10:18:00 [...] (generalized anxiety disorder) Hidr (more content not included)...[facility]: Result Comment: Electronically Signed By: Carlota RODRIGUEZ CNP\.br\Date and Time Signed: 03/19/20 14:27 [id number] NoteI Staff This visit was conducted via two-way, real-time interactive video communications from my office using [employer] due to the restrictions of the COVID-19 pandemic. No physical exam was conducted other than those areas of the body visible to telecommunications with the patient located at [address] [place] [phone], with no one else in attendance. If [...] Ordered: TELEHEALTH Office Visit Level 3 Est 81951 General Treatment Plan Maintain medication regimen _Improve [...] Employed, 03/18/2019 Home/Environment Sylvia (more content not included)...[facility] CenterComment on above: Result Comment: Electronically Signed By: Carlota RODRIGUEZ CNP\Date and Time Signed: 03/05/20 13:32 [id number] NoteI Staff This visit was conducted via two-way, real-time interactive video communications from my office using [employer] due to the restrictions of the COVID-19 pandemic. No physical exam was conducted other than those areas of the body visible to telecommunications with the patient located at [address] [place] [phone], with no one else in attendance. If [...] anxiety, # 30 tab(s), Refills(s) 1, [id number] 161, cm, 12/23/19 10:18:00 EDT, Height/Length Dosing, 82, kg, 12/23/19 10:18:00 EDT, Weight Dosing alprazolam, 0.5 mg = 1 tab(s), Oral, TID, PRN for anxiety, # 30 tab(s), Refills(s) 1, [id number], 161, cm, 12/23/19 10:18:00 EDT, Height/Length Dosing, 82, kg, 12/23/19 10:18:00 EDT, Weight Dosing aripiprazole, See Instructions, 1.5 tab po qAM, # 30 tab(s), Refills(s) 2, Pharmacy: [facility]/pharmacy #[id number], 161, cm, 12/23/19 10:18:00 EDT, Height/Length Dosing, 82, kg, 12/23/19 10:18:00 EDT, Weight Dosing aripiprazole, See Instructions, 1 tab po qAM, # 30 tab(s), Refills(s) 5, Pharmacy: [facility]/pharmacy #[id number], 161, cm, 12/23/19 10:18:00 EDT, Height/Length Dosing, 82, kg, 12/23/19 10:18:00 EDT, Weight Dosing cyclobenzaprine, 10 mg = 1 tab(s), Oral, TID, PRN for spasm, # 30 tab(s), Refills(s) 1, Pharmacy: [facility]/pharmacy #[id number], 161, cm, 06/13/19 14:39:00 EST, Height/Length Measured, 82, kg, 06/13/19 14:39:00EST, Weight Measured cyclobenzaprine, 10 mg = 1 tab(s), Oral, TID, PRN for spasm, # 30 tab(s), Refills(s) 1, Pharmacy: [facility]/pharmacy #[id number], 161, cm, 12/23/19 10:18:00 EDT, Height/Length Dosing, 82, kg, 12/23/19 10:18:00 EDT, Weight Dosing General Treatment Plan Maintain medication regimen _Improve mood stability _Improve anxiety control _Improve social and interpersonal functioning Clinical Global Impression 62 Prognosis progressing Follow-up With When Contact Information Carlota RODRIGUEZ CNP In 4 weeks Additional Instructions: (more content not included)...[facility] CenterComment on above:Result Comment: Electronically Signed By: Carlota RODRIGUEZ CNP\.br\Date and Time Signed: 01/27/20 22:35 [id number] NoteI Staff This visit was conducted via two-way, real-time interactive video communications from my office using [employer] due to the restrictions of the COVID-19 pandemic. No physical exam was conducted other than those areas of the body visible to telecommunications with the patient located at [address] [place] [phone], with no one else in attendance. If [...] Ordered: TELEHEALTH Office Visit Level 3 Est 44599 General Treatment Plan Maintain medication regimen _Improve [...] Use:. Never Smokeless Tob (more content not included)...[facility] CenterComment on above:Result Comment: Electronically Signed By: Carlota RODRIGUEZ CNP\.br\Date and Time Signed: 01/13/20 09:11 [id number] NoteI Staff This visit was conducted via two-way, real-time interactive video communications from my office using [employer] due to the restrictions of the COVID-19 pandemic. No physical exam was conducted other than those areas of the body visible to telecommunications with the patient located at [address] [place] [address], with no one else in attendance. If [...] 30 tab(s), Refills(s) 1, Pharmacy: [facility]/pharmacy #[id number], 161, cm, 12/23/19 10:18:00 EDT, Height/Length Dosing, 82, kg, 12/23/19 10:18:00 EDT, Weight Dosing alprazolam, 0.5 mg = 1 tab(s), Oral, TID, PRN for anxiety, # 30 tab(s), Refills(s) 1, Pharmacy: [facility]/pharmacy #[id number], 161, cm, 06/13/19 14:39:00 EST, Height/Length Measured, 82, kg, 06/13/19 14:39:00 EST, Weight Measured aripiprazole, See Instructions, 1 tab po qAM, # 30 tab(s), Refills(s) 0, [id number] 161, cm, 12/23/19 10:18:00 EDT, Height/Length [...] Allergies Bactrim Social History (more content not included)...[facility] CenterComment on above:Result Comment: Electronically Signed By: Carlota RODRIGUEZ CNP\Date and Time Signed: 12/23/19 16:37 [id number] NoteI Staff This visit was conducted via two-way, real-time interactive video communications from my office using [employer] due to the restrictions of the COVID-19 pandemic. No physical exam was conducted other than those areas of the body visible to telecommunications with the patient located at [address] [place] [address], with no one else in attendance. If [...] # 30 tab(s), Refills(s) 2, Pharmacy: [facility]/pharmacy #[id number],161, cm, 06/13/19 14:39:00 EST, Height/Length Measured, 82, kg, 06/13/19 14:39:00 EST, Weight Measured cyclobenzaprine, 10 mg = 1 tab(s), Oral, TID, PRN for spasm, # 30 tab(s), Refills(s) 1, Pharmacy: [facility]/pharmacy #[id number], 161, cm, 06/13/19 14:39:00 [...] Employment/School Employed, 03/18/2019 Home/Environment (more content not included)...[facility] CenterComment on above:Result Comment: Electronically Signed By: Carlota RODRIGUEZ CNP\.br\Date and Time Signed: 12/02/19 16:38 EDTChief complaint+Reason for visit Narrative* Chief Complaint Nausea, diarrhea, fe zhou Reason for Visit Contact with and (guillen spected) exposure to covid-19 Sore throat [facility] Work Phone: Evaluation note* Diagnosis Onset Date Resolution Status Contact with and (suspected) exposure to covid-19 noneactive Sore throat noneactive [facility] Work Phone: Evaluation note* Diagnosis 22 weeks [...] gestation of [facility] Diagnosis Postoperative visit S/P section Other postprocedural status [facility]* Diagnosis 21 weeks gestation of - Primary Obesity affecting in second trimester, unspecified obesity type 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* Diagnosis 6 weeks follow-up documented [facility] Narrative - Reported* Type Description Date Medical History Bipolar Surgical History appendectomy Surgical History x 3 Hospitalization History see above surgical histo ry [employer] Other InstructionsNot on filedocumented in this encounter [facility] [place] [employer] SystemInstructions* Attachments The following attachments cannot be sent through Care Everywhere. * Preeclampsia (Luxembourgish) * Movement (Luxembourgish) [facility] LeadSiftInstructionsNot on file [facility] Advance Directives No Advanced Directives Records Found [...] may need to be seen by an senior talent acquisition specialist if you have other events like this without definite egg exposure. Summary Purpose Family History No Family History Records Found Relationship Condition Age at Onset Recorded Date/T alo father Diabetes mellitus Unknown Hypertension Unknown Additional Source Comments INFORMATION SOURCE (unrecogn ized section and content) DATE CREATED AUTHOR 10/30/2020 [facility] DATE CREATED AUTHOR AUTHOR'S ORGANIZ ATION 04/29/2022 [facility] DATE CREATED AUTHOR AUTHOR'S ORGANIZ ATION 03/16/2024 [facility] DATE CREATED AUTHOR AUTHOR'S ORGANIZ ATION 07/20/2024 [facility] EPIC DATE CREATED AUTHOR AUTHOR'S ORGANIZ ATION 10/25/2024 [facility] REASON FOR VISIT (unrecogniz [...] August 18, 2023 End: August 18, 2023 Sweater Designer Relationship Specialty Start Date End Date No Pcp, [place] [address] PCP - General Family Medicine 03/12/19 Sweater Designer Relationship Specialty Start Date End Date No Pcp, [place] [address] PCP - General Family Medicine 03/12/19 Sweater Designer Relationship Specialty Start Date End Date No Pcp, [place] [address] PCP - General Family Medicine 03/12/19 Goals [...] BE BASED ON THE PRIMARY CLINICAL RECORDS. [employer] provides no warranty or guarantee of the accuracy or completeness of information in this document.
--- OUTSIDE RECORDS SUMMARY | 2025-01-17 07:00 | XMS_ITS ---
Author Organization [facility] in [place] Address [address] [place] [address] Care Team Providers Care Cartographic Aide Name Role Phone Kimberlyn Rangel Primary Care Provider REASON FOR VISIT wt loss Encounters Encounter Location Date Provider Diagnosis [facility] [address] [place] [address] 01/17/2025 Kimberlyn Rangel Plan Of Treatment Next Appt Details Provider Name:Kimberlyn jimenez, 02/18/2025 02:00:00 PM, [address] [place], [address], Progress Notes * RUIZMaria De Jesus PARKSDOB:1985 ( 39 yo F)Acc No.[id number]:01/17/2025 UNLOCKED PROGRESS NOTE Progress Note Patient: Maria De Jesus GILMORE :?Kimberlyn Rangel ([facility]), CNPDOB:1985 ???Age:39 Y???Sex:FemaleDate:01/17/2025Phone:[phone]:[address] [place], [place] Subjective: * Chief Complaints: * 1 . Wt loss. * Medical History: Objective: * Vitals: Assessment: Plan: * Treatment: * * Electronic signature of Kimberlyn Rangel NP, BERRY GROWER.BIOLOGY DEPARTMENT CHAIR.[id number] on 02/18/2025 at 11:28 AM EDTSign off status: PendingVisit Status:?N/S N/C (No Show/No Charge) * Provider: Jamie Rangel ([facility]), BIOLOGY DEPARTMENT CHAIR Date: 0 01/17/2025 Generated for Printing/Faxing/eTransmitting on:?02/18/2025 11:28 AM EDT
--- OUTSIDE RECORDS SUMMARY | 2025-01-28 10:00 | XMS_ITS ---
Author Organization [facility] Address [address] [place] [address] Care Team Providers Care Rent And Miscellaneous Remittance Clerk Name Role Phone Carlota Corral Primary Care Provider [phone] Pu[address] Bety Unavailable [phone] Nimo Szymanski Unavailable [phone] REASON FOR VISIT 6 month f/u Encounters Encounter Location Date Provider Diagnosis [facility] [address] [place] [address] 01/28/2025 Nimo Szymanski Plan Of Treatment Next Appt Details Provider Name:Jose Renee, 1 05/06/2024 09:00:00 AM, [address] [place], [address], Provider Name:Bety Puentes , 07/22/2025 08:00:00 AM, [address] [place], [address], Progress Notes * PROSPER RUIZDOB:1985 ( 39 yo F)Acc No.[id number]:01/28/2025 Behavioral Health Patient: Jai PROSPER MARTIN Provider:?Nimo ReederB:1985???Age:39 Y ???Sex:FemaleDate:01/28/2025Phone:[phone]:[address] [place] [id number]:Carlota Corral Subjective: * Chief Complaints: * 6 month f/u * Electronic signature of DONNELL Lee on 02/18/2025 at 11:28 AM EDTSign off status: Pending * Appointment Provider: Tori Szymanski Date: 0 01/28/2025 Generated for Printing/Faxing/eTransmitting on:?02/18/2025 11:28 AM EDT
--- OUTSIDE RECORDS SUMMARY | 2025-02-06 10:30 | XMS_ITS ---
Author Organization [facility] in [place] Address [address] [place] [address] Care Team Providers Care Computer Tester Name Role Phone Kimberlyn Rangel Primary Care Provider REASON FOR VISIT acid reflux Encounters Encounter Location Date Provider Diagnosis [facility] [address] [place] [address] 02/06/2025 Kimberlyn Rangel Plan Of Treatment Next Appt Details Provider Name:Kimberlyn jimenez, 02/18/2025 02:00:00 PM, [address] [place], [address], Progress Notes * Maria De Jesus RUIZDOB:1985 ( 39 yo F)Acc No.[id number]:02/06/2025 UNLOCKED PROGRESS NOTE Progress Note Patient: Maria De Jesus GILMORE :?Kimberlyn Rangel ([facility]), CNPDOB:1985 ???Age:39 Y???Sex:FemaleDate:02/06/2025Phone:[phone]:[address] [place], [place] Subjective: * Chief Complaints: * 1 . Acid reflux. * Medical History: Objective: * Vitals: Assessment: Plan: * Treatment: * * Electronic signature of Kimberlyn Rangel NP, TILT TRAY DRIVER.[email or web address] on 02/18/2025 at 11:28 AM EDTSign off status: PendingVisit Status:?CANC (Cancelled) * Provider: Jamie Rangel ([facility]), RAVELER Date: 1 Generated for Printing/Faxing/eTransmitting on:?02/18/2025 11:28 AM EDT
--- OUTSIDE RECORDS SUMMARY | 2025-02-18 11:29 | XMS_ITS | Clinical Summary ---
Author Organization [facility] Address [address] [place] [address] Care Team Providers Care Leather Heel Breaster Name Role Phone Unavailable Primary Care Provider Unavailabl e Social History Tobacco UseTypesPacks/DayYears UsedDateSmoking Tobacco: Never Assessed CommentsUnknownSex and Gender InformationValueDate RecordedSex Assigned at Not on fileLegal SaaFwsyqr61/30/2022 12:28 AM EDTGender IdentityNot on file Sexual OrientationNot on file Plan of Treatment Not on file
--- OUTSIDE RECORDS SUMMARY | 2025-02-18 11:29 | XMS_ITS | Clinical Summary ---
Author Organization [facility] Address [address] [place], [place] [address] Care Team Providers Care Pan Devulcanizer Name Role Phone Unavailable Primary Care Provider Unavailabl e Social History Tobacco UseTypesPacks/DayYears UsedDateSmoking Tobacco: Never Assessed CommentsUnknownSex and Gender InformationValueDate RecordedSex Assigned at Not on fileLegal EulIbablu75/11/2023 4:19 PM EDTGender IdentityNot on fileSexual OrientationNot on file Plan of Treatment Health MaintenanceDue DateLast DoneCommentsAnxiety Eowcmjrhj53/07/2006Depression Vtfmgxjqi72/07/2006HIV Zfvtjgtcz09/07/2006Hepatitis C Picjkqblo71/07/2006 DTaP,Tdap,Td Vaccine (1 - Tdap)2006Hepatitis B Vaccine (1 of 3 - 19+ 3- dose series)2006Cervical Cancer Oatqkfjyz95/07/2009HPV Vaccine (1 - 3-dose SCDM series)2014Covid-19 Vaccine ( - 2024- season)2024Influenza Vaccine (#1)2024 Insurance MemberSubscriberPlan / Payer (Effective 2023-Present)Name:MARIA DE JESUS RUIZ Relation to Subscriber:SpouseName:SANTINO RUIZ Date of :1983 (Home) Address: [address] [place], [place] [address] Payer ID:[id number] (NAIC) Group ID:Not on file Type:TONY Address: [facility] [id number] [place] [id number]
--- OUTSIDE RECORDS SUMMARY | 2025-02-18 11:29 | XMS_ITS | Patient Health Record ---
Author Organization [facility] in [place] Address [address] [place] [address] Care Team Providers Care Internet Retailer Name Role Phone Kimberlyn Xie Primary Care Provider Allergies Allergen (clinical drug ingredient) Drug/Non Drug Allergy documented on EMR Reaction Allergy Type Onset Date Status Substance with sulfonamide s tructure and antibacterial mechanism of action (substance) Sulfa Antibiotics hives Drug Allergy Active Results Component Value Reference Range Notes BUN Reviewed date:03/07/2024 12:18:10 PM Interpretation: Performing Lab: Notes/Report: [facility] , Blood Urea Nitrogen 6.0 7.0-18.0 mg/dL Performing Lab:see note - [facility] LBCREATININE Reviewed date:03/07/2024 12:18:10 PM Interpretation: Performing Lab: Notes/Report: [facility] ,Creatinine0.820.55-1.02 mg/dLEstimated GFR ( Bekah>60>=60 mL/min/1.73m 2Estimated GFR (Non- Aruna>60>=60 mL/min/1.73m 2Performing Lab:see noteML - [facility] LBUS renal BI Reviewed date:03/07/2024 12:18:10 PM Interpretation: Performing Lab: Notes/Report: Source Facility: [facility]-[address] [place] [address] [place] [address] Ultrasound Report Signed Patient: MARIA DE JESUS RUIZ MR#: [id number] : 1985 Acct:[id number] Age/Sex: 38 / F ADM Date: Loc: [facility] 251-[address]: Makenzie Recinos D.O. Ordering Physician: Makenzie Recinos D.O. Date of Service: 03/06/24 Procedure(s): US renal BI Accession Number(s): [id number] cc: KIMBERLYN XIE ; Makenzie Recinos D.O. The [place] [id number] Patient Name: MARIA DE JESUS RUIZ MRN: [facility]:[id number] date: 1985 Sex: F Assigned Patient Location: [facility] Current Patient Location: [facility] Accession/Order Number: [id number] Exam Date: 03/06/2024 14:35 Report Date: 03/06/2024 [...] Signed By: 03/06/24 1555 DD/ 1552 TD/TT: Protection Consultant:UA (CLEAN or CATCH) STAMPING DIE MAKER BENCH or MICRO IF IND. Reviewed date:04/23/2024 09:01:31 AM Interpretation: Performing Lab: Notes/Report: [facility] ,Color UrineLT. YELLOWYELLOWClarity UrineCLEARCLEARSpecific [place] Urine1.020 1.005-1.025pH Urine6.05.0-9.0Protein UrineNEGATIVENEG/TRACE mg/dLGlucose Urine UANEGATIVENEGATIVE mg/dLBilirubin UrineNEGATIVENEGATIVEKetones UrineNEGATIVE NEGATIVE mg/dLBlood UrineNEGATIVENEGATIVENitrite UrineNEGATIVENEGATIVE Urobilinogen Urine0.20.2-1.0 EU/dLLeukocyte Esterase UrineNEGATIVENEGATIVEUrine Microscopic IndicatedNOPerforming Lab:see noteML - [facility] LBUS OB BPP w non-stress Reviewed date:06/20/2024 03:44:40 PM Interpretation: Performing Lab: Notes/Report: Source Facility: [place] [address] Ultrasound Report Signed Patient: MARIA DE JESUS RUIZ MR#: [id number] : 1985 Acct:[id number] Age/Sex: 39 / F ADM Date: Loc: [facility] 254-[address]: Makenzie Recinos D.O. Ordering Physician: Makenzie Recinos D.O. Date of Service: 05/13/24 Procedure(s): US OB BPP w non-stress Accession Number(s): [id number] cc: KIMBERLYN XIE ; Makenzie Recinos D.O. [place] [address] Patient Name: MARIA DE JESUS RUIZ MRN: [id number] date: 1985 Sex: F Assigned Patient Location: [facility] Current Patient Location: [facility] Accession/Order Number: [id number] Exam Date: 05/13/2024 16:53 Report Date: 05/13/2024 [...] heart rate of 127. 2. Biophysical profile 12/06. Electronically authenticated by: NATO LINDER Date: 05/13/2024 17:59 Dictated By: Nato Linder M.D. Signed By: 05/13/241801 DD/ 817 TD/TT: Protection Consultant:US OB BPP w non-stress Reviewed date:06/20/2024 03:43:53 PM Interpretation: Performing Lab: Notes/Report: Source Facility: [place] [address] Ultrasound Report Signed Patient: MARIA DE JESUS RUIZ MR#: [id number] : 1985 Acct:[id number] Age/Sex: 39 / F ADM Date: 05/17/24 Loc: [place] [address]- Attending Dr: Makenzie Recinos D.O. Ordering Physician: Liza Duque Date of Service: 05/17/24 Procedure(s): US OB BPP w non-stress Accession Number(s): [id number] cc: Liza Duque; KIMBERLYN XIE [place] [id number] Patient Name: MARIA DE JESUS RUIZ MRN: [id number] date: 1985 Sex: F Assigned Patient Location: [facility] Current Patient Location: [facility] Accession/Order Number: [id number] Exam Date: 05/17/2024 13:11 Report Date: 05/17/2024 [...] Signed By: 05/17/24 1358 DD/ 54 TD/TT: Protection Consultant:US OB BPP w non-stress Reviewed date:06/20/2024 03:43:32 PM Interpretation: Performing Lab: Notes/Report: Source Facility: [place] [address] Ultrasound Report Signed Patient: MARIA DE JESUS RUIZ MR#: [id number] : 1985 Acct:[id number] Age/Sex: 39 / F ADM Date: 05/24/24 Loc: [facility] 250- Attending Dr: Liza Duque Ordering Physician: Liza Duque Date of Service: 05/24/24 Procedure(s): US OB BPP w non-stress Accession Number(s): [id number] cc: Liza Duque; KIMBERLYN XIE [place] [address] Patient Name: MARIA DE JESUS RUIZ MRN: [id number] date: 1985 Sex: F Assigned Patient Location: [facility] Current Patient Location: [facility] Accession/Order Number: [id number] Exam Date: 05/24/2024 13:01 Report Date: 05/24/2024 [...] Signed By: 05/24/24 1337 DD/ 1334 TD/TT: Protection Consultant:LAB TESTING Reviewed date:06/10/2024 08:17:28 AM Interpretation: Performing Lab: Notes/Report: [id number] Group B Streptococcus Colonization Detection Culture With Re [facility] ,Miscellaneous TestCOMMENT. Test Ordered: [id number] Strep Gp B Culture+Rflx Strep Gp B Culture+Rflx Negative CB Reference Range: Negative Centers for Disease Control and Prevention (CDC) and [place] [employer] of [employer]stetricians and Gynecologists (ACOG) guidelines [...] resistance to clindamycin is noted. Performed at: - [facility] [id number] Vb Developer: Moose Pate PhD, Phone: [phone] Performing Lab:see noteLC - [facility] LBUS OB BPP w non-stress Reviewed date:06/20/2024 03:43:04 PM Interpretation: Performing Lab: Notes/Report: Source Facility: [place] [address] [place] [address] Ultrasound Report Signed Patient: MARIA DE JESUS RUIZ MR#: [id number] : 1985 Acct:[id number] Age/Sex: 39 / F ADM Date: Loc: [facility] 250-[address]: Makenzie Recinos D.O. Ordering Physician: Makenzie Recinos D.O. Date of Service: 05/29/24 Procedure(s): US OB BPP w non-stress Accession Number(s): [id number] cc: KIMBERLYN XIE ; Makenzie Recinos D.O. The [place] [id number] Patient Name: MARIA DE JESUS RUIZ MRN: [id number] date: 1985 Sex: F Assigned Patient Location: [facility] Current Patient Location: Accession/Order Number: [id number] Exam Date: 05/29/2024 15:40 Report Date: 05/30/2024 [...] M.D. Signed By: 05/30/24621 DD/ 8 TD/TT: Protection Consultant:US OB BPP w non-stress Reviewed date:06/20/2024 03:43:11 PM Interpretation: Performing Lab: Notes/Report: Source Facility: [place] [address] [place] [address] Ultrasound Report Signed Patient: MARIA DE JESUS RUIZ MR#: [id number] : 1985 Acct:[id number] Age/Sex: 39 / F ADM Date: 05/31/24 Loc: [facility] 250-[address]: Liza Duque Ordering Physician: Liza Duque Date of Service: 05/31/24 Procedure(s): US OB BPP w non-stress Accession Number(s): [id number] cc: Liza Duque; KIMBERLYN XIE [facility] [place] [id number] Patient Name: MARIA DE JESUS RUIZ MRN: [id number] date: 1985 Sex: F Assigned Patient Location: [facility] Current Patient Location: [facility] Accession/Order Number: [id number] Exam Date: 05/31/2024 13:15 Report Date: 05/31/2024 [...] Signed By: 05/31/24 1357 DD/ 1355 TD/TT: Protection Consultant:DRUG SCREEN RAPID (URINE) Reviewed date:06/10/2024 08:17:28 AM Interpretation: Performing Lab: Notes/Report: [facility] ,Cannabinoid Screen UrineNEGATIVENEGATIVEPhencyclidine Screen UrineNEGATIVE NEGATIVECocaine Screen UrineNEGATIVENEGATIVEMethamphetamines Screen Urine NEGATIVENEGATIVEOpiate Screen UrineNEGATIVENEGATIVEAmphetamine Screen Urine NEGATIVENEGATIVEBenzodiazepines Screen UrineNEGATIVENEGATIVETricyclic Antidepressant UrineNEGATIVENEGATIVEMethadone Screen UrineNEGATIVENEGATIVE Barbiturates Screen UrineNEGATIVENEGATIVEOxycodone Screen UrineNEGATIVENEGATIVE Buprenorphine Screen UrineNEGATIVENEGATIVE DRUG CLASS TEST SYSTEM CUT-OFF CONCENTRATIONS ARE FOLLOWS: AMP (Amphetamine): 500 ng/mL BAR (Barbiturates): 200 ng/mL BZO (Benzodiazepines): 150 ng/mL BUP (Buprenorphine): 10 ng/mL GABRIEL (Cocaine): 150 ng/mL mAMP (Methamphetamine): 500 ng/mL MTD (Methadone): 200 ng/mL OPI (Opiates): 100 ng/mL OXY (Oxycodone): 100 ng/mL PCP (Phencyclidine): 25 ng/mL THC (Cannabinoids): 50 ng/mL TCA (Trycyclic Antidepressants): 300 ng/mL Performing Lab:see noteML - [facility] LBUA RANDOM W or MICROSCOPIC Reviewed date:06/10/2024 08:17:28 AM Interpretation: Performing Lab: Notes/Report: [facility] ,Color UrineYELLOWYELLOWClarity UrineCLEARCLEARSpecific [place] Urine1.025 1.005-1.025pH Urine6.05.0-9.0Protein UrineTRACENEG/TRACE mg/dLGlucose Urine UA NEGATIVENEGATIVE mg/dLBilirubin UrineNEGATIVENEGATIVEKetones Krghn77UANFTOQM mg/dLBlood UrineNEGATIVENEGATIVENitrite UrineNEGATIVENEGATIVEUrobilinogen Urine 0.20.2-1.0 EU/dLLeukocyte Esterase UrineSMALLNEGATIVEWBC Urine5-10NONE SEEN #/HPFRBC UrineNONE SEEN0-2 #/HPFBacteria UrineLARGENONE SEEN #/HPFMucus Urine NONE SEENNONE SEENSquamous Epithelial Cell UrineMANYNONE/RARE #/LPFPerforming Lab:see note - [facility] LBType and Screen Reviewed date:06/10/2024 08:17:28 AM Interpretation: Performing Lab: Notes/Report: [facility] ,Blood TypeA PositiveAntibody ScreenNEGATIVECBC AUTO DIFF Reviewed date:06/10/2024 08:17:28 AM Interpretation: Performing Lab: Notes/Report: [facility] ,White Blood Count9.34.0-11.0 10 3/uLRed Blood Count3.734.20-5.40 10 6/uL Miyxsmcizc89.712.0-16.0 g/oCYfnlaipjum52.236.0-48.0 %Mean Corpuscular Kzacfa95.0 81.0-99.0 fLMean Corpuscular Yecezcezpd86.726.7-34.0 pgMean Corpuscular HGB Conc 32.229.9-35.2 g/dLRed Cell Distribution Width13.311.0-15.0 %Platelet Tmdim159 150-450 10 3/uLMean Platelet Bywxec97.79.5-13.5 fLNeutrophils Percent Auto64.0 43.0-75.0 %Lymphocytes Percent Auto28.820.5-60.0 %Monocytes Percent Auto6.21.7- 12.0 %Eosinophils Percent Auto0.60.9-7.0 %Basophils Percent Auto0.20.2-2.0 % Immature Granulocytes Pct Auto0.20.0-0.5 %Neutrophils Absolute Auto5.91.4-6.5 10 3/uLLymphocytes Absolute Auto2.71.2-3.8 10 3/uLMonocytes Absolute Auto0.60.3-0.8 10 3/uLEosinophils Absolute Auto0.10.0-0.7 10 3/uLBasophils Absolute Auto0.00.0- 0.1 10 3/uLImmature Granulocytes Abs Auto0.020.00-0.03 10 3/uLPerforming Lab:see noteML - [facility] LBCBC AUTO DIFF Reviewed date:10/22/2024 08:58:52 AM Interpretation: Performing Lab: Notes/Report: [facility] ,White Blood Count15.14.0-11.0 10 3/uLRed Blood Count3.824.20-5.40 10 6/uL Qtkrofhskm23.712.0-16.0 g/vWIuoelalcyf81.336.0-48.0 %Mean Corpuscular Dlpvsb96.4 81.0-99.0 fLMean Corpuscular Fwxztvqaak55.626.7-34.0 pgMean Corpuscular HGB Conc 33.129.9-35.2 g/dLRed Cell Distribution Width13.611.0-15.0 %Platelet Edruv209 150-450 10 3/uLMean Platelet Vvlydv03.19.5-13.5 fLNeutrophils Percent Auto75.5 43.0-75.0 %Lymphocytes Percent Auto14.120.5-60.0 %Monocytes Percent Auto9.41.7- 12.0 %Eosinophils Percent Auto0.10.9-7.0 %Basophils Percent Auto0.20.2-2.0 % Immature Granulocytes Pct Auto0.70.0-0.5 %Neutrophils Absolute Auto11.41.4-6.5 10 3/uLLymphocytes Absolute Auto2.11.2-3.8 10 3/uLMonocytes Absolute Auto1.40.3- 0.8 10 3/uLEosinophils Absolute Auto0.00.0-0.7 10 3/uLBasophils Absolute Auto0.0 0.0-0.1 10 3/uLImmature Granulocytes Abs Auto0.100.00-0.03 10 3/uLPerforming Lab:see noteML - [facility] LBCPK Reviewed date:10/22/2024 08:58:52 AM Interpretation: Performing Lab: Notes/Report: [facility] ,Creatine Vrqqja8377-187 U/LPerforming Lab:see noteML - [facility] LB INFLUENZA A AND B AG Reviewed date:10/22/2024 08:58:52 AM Interpretation: Performing Lab: Notes/Report: [facility] ,Influenza Virus A AntigenNegative Negative for Flu A protein antigen. Infection due to Flu A cannot be ruled out. Flu A antigen in the sample may be below the detection limit of the test. Influenza Virus B AntigenNegative Negative for Flu B protein antigen. Infection due to Flu B cannot be ruled out. Flu B antigen in the sample may be below the detection limit of the test. Performing Lab:see noteML - [facility] LBLACTATE or LACTIC ACID Reviewed date:10/22/2024 08:58:52 AM Interpretation: Performing Lab: Notes/Report: [facility] ,Lactate/Lactic Acid1.20.4-2.0 mmol/LPerforming Lab:see noteML - [facility] LBMAGNESIUM Reviewed date:10/22/2024 08:58:52 AM Interpretation: Performing Lab: Notes/Report: [facility] ,Magnesium2.01.8-2.4 mg/dLPerforming Lab:see noteML - [facility] LB PROF 14(COMP METB) Reviewed date:10/22/2024 08:58:52 AM Interpretation: Performing Lab: Notes/Report: [facility] ,Ctiubx155886-321 mmol/LPotassium4.33.5-5.1 mmol/UMhddohfc12735-603 mmol/LCarbon Zojfbvv40.521.0-32.0 mmol/LAnion Gap16.1Ggkrgxu04804-310 mg/dLBlood Urea Nopwxiej55.07.0-18.0 mg/dLCreatinine0.860.55-1.02 mg/dLEstimated GFR ( Bekah>60>=60 mL/min/1.73m 2Estimated GFR (Non- Aruna>60>=60 mL/min/1.73m 2BUN Creatinine Ratio11.8Zgtexxx1.78.5-10.1 mg/dLBilirubin Total0.30.2-1.0 mg/dL Aspartate Amino Jdzfxuuxukv1816-78 U/LAlanine Yxbovkzcdvbwtaoc9727-90 U/L Alkaline Jbzyfcjejpk71454-163 U/LTotal Protein8.36.4-8.2 g/dLAlbumin Level3.4 3.4-5.0 g/dLGlobulin4.9Albumin Globulin Ratio0.7Performing Lab:see note - [facility] LBBlood Culture 1 Reviewed date:10/28/2024 09:00:02 AM Interpretation: Performing Lab: Notes/Report: [facility] ,Blood Culture 1See Below For Report Blood Culture 1 NG5D NO GROWTH AT 5 DAYS.^NO GROWTH AT 5 DAYS. Performing Lab:see note - [facility] LBBlood Culture 2 Reviewed date:10/28/2024 09:00:02 AM Interpretation: Performing Lab: Notes/Report: [facility] ,Blood Culture 2See Below For Report Blood Culture 2 NG5D NO GROWTH AT 5 DAYS.^NO GROWTH AT 5 DAYS. Performing Lab:see note - [facility] LBProthrombin Time INR Reviewed date:10/22/2024 08:58:52 AM Interpretation: Performing Lab: Notes/Report: [facility] ,Prothrombin Time10.59.0-11.6 secINR0.99 DESIRED INR: 2.0-3.0 CONDITIONS NOT LISTED BELOW 2.5-3.5 FOR PROSTHETIC HEART VALVE REPLACEMENT 2.5-3.5 RECURRENT THROMBOSIS Performing Lab:see noteML - [facility] LBTroponin I High Sensitivity Reviewed date:10/22/2024 08:58:52 AM Interpretation: Performing Lab: Notes/Report: [facility] ,Troponin I High Sensitivity<4.04.0-51.3 pg/mL CUT-OFF POINTS HAVE BEEN ESTABLISHED BASED ON THE FOURTH UNIVERSAL DEFINITION OF MYOCARDIAL INFARCTION. THE UPPER REFERENCE LIMIT (URL) OF TROPONIN, DEFINED THE 99TH PERCENTILE OF cTnI DISTRIBUTION IN A REFERENCE POPULATION, HAS BEEN CONFIRMED THE DECISION THRESHOLD FOR ME DIAGNOSIS. 99TH PERCENTILE = 51.4 PG/ML NOTE: HIGH-SENSITIVITY TROPONIN ASSAY IS NOT INTENDED TO BE USED IN ISOLATION BUT SHOULD BE INTERPRETED IN CONJUNCTION WITH OTHER DIAGNOSTIC AND CLINICAL INFORMATION. Performing Lab:see noteML - [facility] LBVenous Blood Gas Reviewed date:10/22/2024 08:58:52 AM Interpretation: Performing Lab: Notes/Report: [facility] ,pH VBG7.3857.330-7.606WDC0 VBG40.940.0-52.0 mmHgPerforming Lab:see noteML - [facility] YMGTAP-BmV-9 Ag* Reviewed date:10/22/2024 08:58:52 AM Interpretation: Performing Lab: Notes/Report: [facility] ,SARS-CoV-2 AgNEGATIVENEGATIVE This test has not been FDA cleared [...] terminated or authorization is revoked sooner. Performing Lab:see noteML - [facility] LBMono Screen* Reviewed date:10/22/2024 08:58:52 AM Interpretation: Performing Lab: Notes/Report: [facility] ,Moca ScreenNEGATIVENEGATIVEPerforming Lab:see noteML - [facility] LB HCG Qualitative Urine Reviewed date:10/22/2024 08:58:52 AM Interpretation: Performing Lab: Notes/Report: [facility] ,HCG Qualitative Urine*NEGATIVENEGATIVEPerforming Lab:see noteML - [facility] LBUA Micro, reflex to culture Reviewed date:10/22/2024 08:58:52 AM Interpretation: Performing Lab: Notes/Report: [facility] ,Color UrineLT. YELLOWYELLOWClarity UrineCLEARCLEARSpecific [place] Urine1.015 1.005-1.025pH Urine7.05.0-9.0Protein Cqtcy35LDH/TRACE mg/dLGlucose Urine UA NEGATIVENEGATIVE mg/dLBilirubin UrineNEGATIVENEGATIVEKetones UrineNEGATIVE NEGATIVE mg/dLBlood UrineSMALLNEGATIVENitrite UrineNEGATIVENEGATIVEUrobilinogen Urine1.00.2-1.0 EU/dLLeukocyte Esterase UrineTRACENEGATIVEWBC Seejj25-54JSDO SEEN #/HPFRBC Urine2-50-2 #/HPFBacteria UrineMODERATENONE SEEN #/HPFMucus Urine NONE SEENNONE SEENSquamous Epithelial Cell UrineFEWNONE/RARE #/LPFCrystals Seen? None SeenNone Seen #/HPFCast Seen?NONE SEENNONE SEEN #/LPFUrine Culture IndicatedYES-FRMCPerforming Lab:see noteML - [facility] LBUrine Culture - [facility] Reviewed date:10/24/2024 12:01:46 PM Interpretation: Performing Lab: Notes/Report: [facility] ,Urine Culture - [facility]MCSee Below For Report Urine Culture - [facility] Testing performed at [facility] O:ESCCOL Isolated Urine Culture - [facility] [place] Count Organism: 1.1 Antibiotic Interpretation CHUY Status Urine Culture - [id number] [place] [address] Urine Culture - [facility] Testing performed at [facility] O:ESCCOL Isolated Urine Culture - [facility] [place] Count Organism: 1.1 Antibiotic Interpretation CHUY Status Urine Culture - [facility]See Below For Report Urine Culture - [facility] Testing performed at [facility] O:ESCCOL Isolated Urine Culture - [facility] [place] Count Organism: 1.1 Antibiotic Interpretation CHUY Status Urine Culture - [facility]MCSee Below For Report Urine Culture - [facility] Testing performed at [facility] O:ESCCOL Isolated Urine Culture - [facility] [place] Count Organism: 1.1 Antibiotic Interpretation CHUY Status Urine Culture - [facility]>100,000 Urine Culture - [facility] Testing performed at [facility] O:ESCCOL Isolated Urine Culture - [facility] [place] Count Organism: 1.1 Antibiotic Interpretation CHUY Status Urine Culture - [facility]MCSee Below For Report Urine Culture - [facility] Testing performed at [facility] O:ESCCOL Isolated Urine Culture - [facility] [place] Count Organism: 1.1 Antibiotic Interpretation CHUY Status Urine Culture - FRMCAmikacin S F Urine Culture - [facility] Testing performed at [facility] O:ESCCOL Isolated Urine Culture - [facility] [place] Count Organism: 1.1 Antibiotic Interpretation CHUY Status Urine Culture - FRMCAmoxicillin/Clavulanate S F Urine Culture - [facility] Testing performed at [facility] O:ESCCOL Isolated Urine Culture - [facility] [place] Count Organism: 1.1 Antibiotic Interpretation CHUY Status Urine Culture - FRMCAmpicillin S F Urine Culture - [facility] Testing performed at [facility] O:ESCCOL Isolated Urine Culture - [facility] [place] Count Organism: 1.1 Antibiotic Interpretation CHUY Status Urine Culture - FRMCAztreonam S F Urine Culture - [facility] Testing performed at [facility] O:ESCCOL Isolated Urine Culture - [facility] [place] Count Organism: 1.1 Antibiotic Interpretation CHUY Status Urine Culture - FRMCCeftazidime S F Urine Culture - [facility] Testing performed at [facility] O:ESCC[place] Isolated Urine Culture - [facility] [place] Count Organism: 1.1 Antibiotic Interpretation CHUY Status Urine Culture - FRMCCeftazidime/Avibactam S F Urine Culture - [facility] Testing performed at [facility] O:ESCC[place] Isolated Urine Culture - [facility] [place] Count Organism: 1.1 Antibiotic Interpretation CHUY Status Urine Culture - FRMCCeftolozane/Tazobactam S F Urine Culture - [facility] Testing performed at [facility] O:ESCCOL Isolated Urine Culture - [facility] [place] Count Organism: 1.1 Antibiotic Interpretation CHUY Status Urine Culture - FRMCCiprofloxacin S F Urine Culture - [facility] Testing performed at [facility] O:ESCCOL Isolated Urine Culture - [facility] [place] Count Organism: 1.1 Antibiotic Interpretation CHUY Status Urine Culture - FRMCErtapenem S F Urine Culture - [facility] Testing performed at [facility] O:ESCC[place] Isolated Urine Culture - [facility] [place] Count Organism: 1.1 Antibiotic Interpretation CHUY Status Urine Culture - FRMCGentamicin S F Urine Culture - [facility] Testing performed at [facility] O:ESCCOL Isolated Urine Culture - [facility] [place] Count Organism: 1.1 Antibiotic Interpretation CHUY Status Urine Culture - FRMCLevofloxacin S F Urine Culture - [facility] Testing performed at [facility] O:ESCCOL Isolated Urine Culture - [facility] [place] Count Organism: 1.1 Antibiotic Interpretation CHUY Status Urine Culture - FRMCMeropenem S F Urine Culture - [facility] Testing performed at [facility] O:ESCCOL Isolated Urine Culture - [facility] [place] Count Organism: 1.1 Antibiotic Interpretation CHUY Status Urine Culture - FRMCMeropenem/Vaborbactam S F Urine Culture - [facility] Testing performed at [facility] O:ESCCOL Isolated Urine Culture - [facility] [place] Count Organism: 1.1 Antibiotic Interpretation CHUY Status Urine Culture - FRMCNitrofurantoin S F Urine Culture - [facility] Testing performed at [facility] O:ESCCOL Isolated Urine Culture - [facility] [place] Count Organism: 1.1 Antibiotic Interpretation CHUY Status Urine Culture - FRMCTetracycline S F Urine Culture - [facility] Testing performed at [facility] O:ESCCOL Isolated Urine Culture - [facility] [place] Count Organism: 1.1 Antibiotic Interpretation CHUY Status Urine Culture - FRMCTigecycline S F Urine Culture - [facility] Testing performed at [facility] O:ESCCOL Isolated Urine Culture - [facility] [place] Count Organism: 1.1 Antibiotic Interpretation CHUY Status Urine Culture - FRMCTobramycin S F Urine Culture - [facility] Testing performed at [facility] O:ESCCOL Isolated Urine Culture - [facility] [place] Count Organism: 1.1 Antibiotic Interpretation CHUY Status Urine Culture - FRMCAmpicillin/Sulbactam S F Urine Culture - [facility] Testing performed at [facility] O:ESCCOL Isolated Urine Culture - [facility] [place] Count Organism: 1.1 Antibiotic Interpretation CHUY Status Urine Culture - FRMCCefazolin S F Urine Culture - [facility] Testing performed at [facility] O:ESCCOL Isolated Urine Culture - [facility] [place] Count Organism: 1.1 Antibiotic Interpretation CHUY Status Urine Culture - FRMCCefepime S F Urine Culture - [facility] Testing performed at [facility] O:ESCCOL Isolated Urine Culture - [facility] [place] Count Organism: 1.1 Antibiotic Interpretation CHUY Status Urine Culture - FRMCCeftriaxone S F Urine Culture - [facility] Testing performed at [facility] O:ESCCOL Isolated Urine Culture - [facility] [place] Count Organism: 1.1 Antibiotic Interpretation CHUY Status Urine Culture - FRMCCefuroxime S F Urine Culture - [facility] Testing performed at [facility] O:ESCCOL Isolated Urine Culture - [facility] [place] Count Organism: 1.1 Antibiotic Interpretation CHUY Status Urine Culture - FRMCPiperacillin/Tazobactam S F Urine Culture - [facility] Testing performed at [facility] O:ESCCOL Isolated Urine Culture - [facility] [place] Count Organism: 1.1 Antibiotic Interpretation CHUY Status Urine Culture - FRMCTrimethoprim/Sulfa S F Urine Culture - [facility] Testing performed at [facility] O:ESCCOL Isolated Urine Culture - [facility] [place] Count Organism: 1.1 Antibiotic Interpretation CHUY Status Performing Lab:see note ML - [facility] LB SEE REPORT - Marketing Officer Id information not found for OBX-specific web producer legend CT head/brain wo con Reviewed date:10/22/2024 08:58:52 AM Interpretation: Performing Lab: Notes/Report: Source Facility: [place] [address] CT Scan Report Signed Patient: MARIA DE JESUS RUIZ MR#: [id number] : 1985 Acct:[id number] Age/Sex: 39 / F ADM Date: 10/21/24 Loc: ER Attending Dr: Ordering Physician: Liza Duque Date of Service: 10/21/24 Procedure(s): CT head/brain wo con Accession Number(s): [id number] cc: KIMBERLYN XIE [place] [address] Patient Name: MARIA DE JESUS RUIZ MRN: [id number] date: 1985 Sex: F Assigned Patient Location: ER Current Patient Location: ER Accession/Order Number: [id number] Exam Date: 10/21/2024 19:41 Report Date: 10/21/2024 [...] Sierra M.D. 10/21/2024 7:43 PM Dictation Location: [place] [address] Electronically authenticated by: [id number] Y Date: 10/21/2024 19:43 Dictated By: Ravi Sierra M.D. Signed By: 10/21/241945 DD/ 42 TD/TT: Protection Consultant:XR chest 1V Reviewed date:10/22/2024 08:58:52 AM Interpretation: Performing Lab: Notes/Report: Source Facility: [place] [address] [place] [address] XRay Report Signed Patient: MARIA DE JESUS RUIZ MR#: [id number] : 1985 Acct:[id number] Age/Sex: 39 / F ADM Date: 10/21/24 Loc: ER Attending Dr: Ordering Physician: Liza Duque Date of Service: 10/21/24 Procedure(s): XR chest 1V Accession Number(s): [id number] cc: Liza Duque; KIMBERLYN XIE [place] [id number] Patient Name: MARIA DE JESUS RUIZ MRN: [id number] date: 1985 Sex: F Assigned Patient Location: ER Current Patient Location: ER Accession/Order Number: [id number] Exam Date: 10/21/2024 19:38 Report Date: 10/21/2024 [...] Sierra M.D. 10/21/2024 7:41 PM Dictation Location: [place] [address] Electronically authenticated by: [id number] Y Date: 10/21/2024 19:41 Dictated By: Ravi Sierra M.D. Signed By: 10/21/241942 DD/ 40 TD/TT: Protection Consultant:CT abdomen pelvis wo con Reviewed date:10/22/2024 08:58:52 AM Interpretation: Performing Lab: Notes/Report: Source Facility: [place] [address] CT Scan Report Signed Patient: MARIA DE JESUS RUIZ MR#: [id number] : 1985 Acct:[id number] Age/Sex: 39 / F ADM Date: 10/21/24 Loc: ER Attending Dr: Ordering Physician: Liza Duque Date of Service: 10/21/24 Procedure(s): CT abdomen pelvis wo con Accession Number(s): [id number] cc: KIMBERLYN XIE [place] [id number] Patient Name: MARIA DE JESUS RIUZ MRN: [id number] date: 1985 Sex: F Assigned Patient Location: ER Current Patient Location: ED.MAIN Accession/Order Number: [id number] Exam Date: 10/21/2024 20:33 Report Date: 10/21/2024 20:42 At the request of: LIZA DUQEU Procedure: CT abdomen pelvis wo con CT [...] Sierra M.D. 10/21/2024 8:42 PM Dictation Location: [place] [address] Electronically authenticated by: [id number] Y Date: 10/21/2024 20:42 Dictated By: Ravi Sierra M.D. Signed By: 10/21/242043 DD/ 41 TD/TT: Protection Consultant:ECG 12 lead Reviewed date:10/22/2024 08:58:52 AM Interpretation: Performing Lab: Notes/Report: Source Facility: [facility]-[address] [place] [address] [place] [address] Electrocardiograph Report Signed Patient: MARIA DE JESUS RUIZ MR#: [id number] : 1985 Acct:[id number] Age/Sex: 39 / F ADM Date: 10/21/24 Loc: ER Attending Dr: Ordering Physician: Liza Duque Date of Service: 10/21/24 Procedure(s): ECG 12 lead Accession Number(s): [id number] cc: [facility] Test Date: 2024-10-21 Pat Name: MARIA DE JESUS RUIZ Department: Room: - Gender: Female 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 Measurements Intervals Alpha Rate: 126 P: 12 IL: 116 QRS: 22 QRSD: 76 T: 25 QT: 286 QTc: 361 Interpretive Statements 1120 Sinus tachycardia 2210 Short IL interval 9150 abnormal ECG Compared to ECG 12/29/2023 12:43:03 Short IL interval now present Electronically Signed On 10-21-2024 18:28:39 EDT by OSVALDO BLACKBURN M.D. Dictated By: OSVALDO BLACKBURN Signed By: 10/21/24 1829 DD/ 175 TD/TT: Protection Consultant:LAMOTRIGINE Reviewed date:10/25/2024 08:38:56 AM Interpretation: Performing Lab: Notes/Report: [facility] ,Lamotrigine (Lamictal), Serum2.02.0-20.0 ug/mL Detection Limit = 1.0 Performed at: [address] [id number] Vb Developer: Fely Schmitt MD, Phone: [phone] Performing Lab:see fay - [facility] LBDRUG SCREEN RAPID (URINE) Reviewed date:10/22/2024 08:58:52 AM Interpretation: Performing Lab: Notes/Report: [facility] ,Cannabinoid Screen UrineNEGATIVENEGATIVEPhencyclidine Screen UrineNEGATIVE NEGATIVECocaine Screen UrineNEGATIVENEGATIVEMethamphetamines Screen Urine NEGATIVENEGATIVEOpiate Screen UrineNEGATIVENEGATIVEAmphetamine Screen Urine NEGATIVENEGATIVEBenzodiazepines Screen UrineNEGATIVENEGATIVETricyclic Antidepressant UrineNEGATIVENEGATIVEMethadone Screen UrineNEGATIVENEGATIVE Barbiturates Screen UrineNEGATIVENEGATIVEOxycodone Screen UrineNEGATIVENEGATIVE Buprenorphine Screen UrineNEGATIVENEGATIVE DRUG CLASS TEST SYSTEM CUT-OFF CONCENTRATIONS ARE FOLLOWS: AMP (Amphetamine): 500 ng/mL BAR (Barbiturates): 200 ng/mL BZO (Benzodiazepines): 150 ng/mL BUP (Buprenorphine): 10 ng/mL GABRIEL (Cocaine): 150 ng/mL mAMP (Methamphetamine): 500 ng/mL MTD (Methadone): 200 ng/mL OPI (Opiates): 100 ng/mL OXY (Oxycodone): 100 ng/mL PCP (Phencyclidine): 25 ng/mL THC (Cannabinoids): 50 ng/mL TCA (Trycyclic Antidepressants): 300 ng/mL Performing Lab:see noteML - [facility] LBCBC AUTO DIFF Reviewed date:06/10/2024 08:17:28 AM Interpretation: Performing Lab: Notes/Report: [facility] ,White Blood Count7.04.0-11.0 10 3/uLRed Blood Count4.074.20-5.40 10 6/uL Iuteyrrrjf63.712.0-16.0 g/tXKkfciigxhd33.436.0-48.0 %Mean Corpuscular Efhett54.0 81.0-99.0 fLMean Corpuscular Irjhrtoepb83.726.7-34.0 pgMean Corpuscular HGB Conc 33.129.9-35.2 g/dLRed Cell Distribution Width13.211.0-15.0 %Platelet Dgnmi699 150-450 10 3/uLMean Platelet Gijlql68.09.5-13.5 fLNeutrophils Percent Auto70.5 43.0-75.0 %Lymphocytes Percent Auto24.020.5-60.0 %Monocytes Percent Auto4.41.7- 12.0 %Eosinophils Percent Auto0.60.9-7.0 %Basophils Percent Auto0.10.2-2.0 % Immature Granulocytes Pct Auto0.40.0-0.5 %Neutrophils Absolute Auto4.91.4-6.5 10 3/uLLymphocytes Absolute Auto1.71.2-3.8 10 3/uLMonocytes Absolute Auto0.30.3-0.8 10 3/uLEosinophils Absolute Auto0.00.0-0.7 10 3/uLBasophils Absolute Auto0.00.0- 0.1 10 3/uLImmature Granulocytes Abs Auto0.030.00-0.03 10 3/uLPerforming Lab:see noteML - [facility] LBCBC AUTO DIFF Reviewed date:05/31/2024 09:06:40 AM Interpretation: Performing Lab: Notes/Report: [facility] ,White Blood Count7.44.0-11.0 10 3/uLRed Blood Count3.754.20-5.40 10 6/uL Kglzuivjze34.912.0-16.0 g/rVJwlabfysyy79.436.0-48.0 %Mean Corpuscular Jbpsmt12.1 81.0-99.0 fLMean Corpuscular Szgpqjvbzz75.126.7-34.0 pgMean Corpuscular HGB Conc 32.629.9-35.2 g/dLRed Cell Distribution Width13.211.0-15.0 %Platelet Iyzde277 150-450 10 3/uLMean Platelet Djsert33.29.5-13.5 fLNeutrophils Percent Auto72.3 43.0-75.0 %Lymphocytes Percent Auto20.720.5-60.0 %Monocytes Percent Auto5.81.7- 12.0 %Eosinophils Percent Auto0.50.9-7.0 %Basophils Percent Auto0.30.2-2.0 % Immature Granulocytes Pct Auto0.40.0-0.5 %Neutrophils Absolute Auto5.41.4-6.5 10 3/uLLymphocytes Absolute Auto1.51.2-3.8 10 3/uLMonocytes Absolute Auto0.40.3-0.8 10 3/uLEosinophils Absolute Auto0.00.0-0.7 10 3/uLBasophils Absolute Auto0.00.0- 0.1 10 3/uLImmature Granulocytes Abs Auto0.030.00-0.03 10 3/uLPerforming Lab:see noteML - [facility] LBUS OB cervical length Reviewed date:06/20/2024 03:44:27 PM Interpretation: Performing Lab: Notes/Report: Source Facility: [facility]-[address] [place] [address] [place] [address] Ultrasound Report Signed Patient: MARIA DE JESUS RUIZ MR#: [id number] : 1985 Acct:[id number] Age/Sex: 39 / F ADM Date: Loc: [facility] 254-[address]: Makenzie Recinos D.O. Ordering Physician: Makenzie Recinos D.O. Date of Service: 05/13/24 Procedure(s): US OB cervical length Accession Number(s): [id number] cc: KIMBERLYN XIE ; Makenzie Recinos D.O. [place] [address] Patient Name: MARIA DE JESUS RUIZ MRN: [id number] date: 1985 Sex: F Assigned Patient Location: [facility] Current Patient Location: [facility] Accession/Order Number: [id number] Exam Date: 05/13/2024 16:53 Report Date: 05/13/2024 [...] M.D. Signed By: 05/13/241802 DD/ 00 TD/TT: Protection Consultant:Box Test Reviewed date:04/29/2024 08:31:00 AM Interpretation: Performing Lab: Notes/Report: URINE CULTURE [facility] ,BOX Test Sent OutURINE CULTURE --- 04/25/24 0929 --- BOX Test Sent previously reported as: Y BOX Test Reference LabFIRELANDSBOX Test Date Sent04/22/24BOX Test ResultNO GROWTH 2 DAYSPerforming Lab:see noteML - [facility] LBUS OB growth Reviewed date:04/04/2024 10:02:51 AM Interpretation: Performing Lab: Notes/Report: Source Facility: [place] [address] Ultrasound Report Signed Patient: MARIA DE JESUS RUIZ MR#: [id number] : 1985 Acct:[id number] Age/Sex: 38 / F ADM Date: 04/03/24 Loc: RAD Attending Dr: Makenzie Recinos D.O. Ordering Physician: Makenzie Recinos D.O. Date of Service: 04/03/24 Procedure(s): US OB growth Accession Number(s): [id number] cc: KIMBERLYN XIE ; Makenzie Recinos D.O. [place] [id number] Patient Name: MARIA DE JESUS RUIZ MRN: [id number] date: 1985 Sex: F Assigned Patient Location: RAD Current Patient Location: RAD Accession/Order Number: [id number] Exam Date: 04/03/2024 12:40 Report Date: 04/03/2024 [...] Signed By: 04/03/24 1320 DD/ 1317 TD/TT: Protection Consultant:Urine Culture, Routine Reviewed date:04/08/2024 12:27:38 PM Interpretation: Performing Lab: Notes/Report: [facility] ,Urine Culture, RoutineSee Below For Report Urine Culture, Routine Urine Culture, RoutineMixed urogenital tammi Urine Culture, Routine Urine Culture, RoutineLess than 10,000 colonies/mL Urine Culture, Routine Urine Culture, RoutinePerformed at: - [facility] [place] Urine Culture, Routine Urine Culture, [address] [place], [place] [id number] Urine Culture, Routine Urine Culture, RoutineLab Director: Moose Pate PhD, Phone: [phone] Urine Culture, Routine Performing Lab:see note LC - [facility] LB SEE REPORT - Marketing Officer Id information not found for OBX-specific web producer legend URINE MICROSCOPIC ONLY Reviewed date:04/04/2024 10:02:51 AM Interpretation: Performing Lab: Notes/Report: [facility] ,WBC Urine2-5NONE SEEN #/HPFRBC Urine0-20-2 #/HPFBacteria UrineSMALLNONE SEEN #/HPFMucus UrineNONE SEENNONE SEENSquamous Epithelial Cell UrineFEWNONE/RARE #/LPFTransitional Epi Cells UrineRARENONE SEEN #/LPFCrystals Seen?None SeenNone Seen #/HPFCast Seen?NONE SEENNONE SEEN #/LPFUrine Culture IndicatedYESPerforming Lab:see note - [facility] LBUA (CLEAN or CATCH) STAMPING DIE MAKER BENCH or MICRO IF IND. Reviewed date:04/04/2024 10:02:51 AM Interpretation: Performing Lab: Notes/Report: [facility] ,Color UrineLT. YELLOWYELLOWClarity UrineCLEARCLEARSpecific [place] Urine1.015 1.005-1.025pH Urine6.55.0-9.0Protein UrineNEGATIVENEG/TRACE mg/dLGlucose Urine UANEGATIVENEGATIVE mg/dLBilirubin UrineNEGATIVENEGATIVEKetones UrineNEGATIVE NEGATIVE mg/dLBlood UrineNEGATIVENEGATIVENitrite UrineNEGATIVENEGATIVE Urobilinogen Urine0.20.2-1.0 EU/dLLeukocyte Esterase UrineTRACENEGATIVEUrine Microscopic IndicatedYESPerforming Lab:see note - [facility] LB LIVER PROFILE Reviewed date:04/04/2024 10:02:51 AM Interpretation: Performing Lab: Notes/Report: [facility] ,Bilirubin Total0.20.2-1.0 mg/dLBilirubin Direct0.10.0-0.2 mg/dLAspartate Amino Wwovinhrgzp4786-11 U/LAlanine Lmjcarvevfjbiufb3400-58 U/LAlkaline Shfdronxumv625 46-116 U/LTotal Protein6.36.4-8.2 g/dLAlbumin Level2.73.4-5.0 g/dLGlobulin3.6 Albumin Globulin Ratio0.8Performing Lab:see noteML - [facility] LB CREATININE Reviewed date:04/04/2024 10:02:51 AM Interpretation: Performing Lab: Notes/Report: [facility] ,Creatinine0.520.55-1.02 mg/dLEstimated GFR ( Bekah>60>=60 mL/min/1.73m 2Estimated GFR (Non- Aruna>60>=60 mL/min/1.73m 2Performing Lab:see note - [facility] LBCBC AUTO DIFF Reviewed date:04/04/2024 10:02:51 AM Interpretation: Performing Lab: Notes/Report: [facility] ,White Blood Count9.94.0-11.0 10 3/uLRed Blood Count3.784.20-5.40 10 6/uL Bnitmovujp99.512.0-16.0 g/vFBbmszjfthl92.836.0-48.0 %Mean Corpuscular Urkuul36.1 81.0-99.0 fLMean Corpuscular Cvbaczluhk51.426.7-34.0 pgMean Corpuscular HGB Conc 33.029.9-35.2 g/dLRed Cell Distribution Width13.411.0-15.0 %Platelet Inrmd875 150-450 10 3/uLMean Platelet Chusmk12.29.5-13.5 fLNeutrophils Percent Auto74.1 43.0-75.0 %Lymphocytes Percent Auto20.520.5-60.0 %Monocytes Percent Auto4.81.7- 12.0 %Eosinophils Percent Auto0.20.9-7.0 %Basophils Percent Auto0.20.2-2.0 % Immature Granulocytes Pct Auto0.20.0-0.5 %Neutrophils Absolute Auto7.41.4-6.5 10 3/uLLymphocytes Absolute Auto2.01.2-3.8 10 3/uLMonocytes Absolute Auto0.50.3-0.8 10 3/uLEosinophils Absolute Auto0.00.0-0.7 10 3/uLBasophils Absolute Auto0.00.0- 0.1 10 3/uLImmature Granulocytes Abs Auto0.020.00-0.03 10 3/uLPerforming Lab:see noteML - [facility] LBBUN Reviewed date:04/04/2024 10:02:51 AM Interpretation: Performing Lab: Notes/Report: [facility] ,Blood Urea Nitrogen7.07.0-18.0 mg/dLPerforming Lab:see noteML - [facility] LBGlucose 1 Hour Reviewed date:03/21/2024 01:38:30 PM Interpretation: Performing Lab: Notes/Report: [facility] ,Glucose 1 Wkhv359<130 mg/dLPerforming Lab:see noteML - [facility] LB CBC AUTO DIFF Reviewed date:03/21/2024 01:38:30 PM Interpretation: Performing Lab: Notes/Report: [facility] ,White Blood Count8.44.0-11.0 10 3/uLRed Blood Count3.774.20-5.40 10 6/uL Xjxaufirbq29.512.0-16.0 g/wARlbfzsycoa40.236.0-48.0 %Mean Corpuscular Foccrn07.4 81.0-99.0 fLMean Corpuscular Zxwdxuoyia53.526.7-34.0 pgMean Corpuscular HGB Conc 32.729.9-35.2 g/dLRed Cell Distribution Width13.911.0-15.0 %Platelet Mfgux475 150-450 10 3/uLMean Platelet Gkhpie36.59.5-13.5 fLNeutrophils Percent Auto72.6 43.0-75.0 %Lymphocytes Percent Auto22.920.5-60.0 %Monocytes Percent Auto3.31.7- 12.0 %Eosinophils Percent Auto0.50.9-7.0 %Basophils Percent Auto0.10.2-2.0 % Immature Granulocytes Pct Auto0.60.0-0.5 %Neutrophils Absolute Auto6.11.4-6.5 10 3/uLLymphocytes Absolute Auto1.91.2-3.8 10 3/uLMonocytes Absolute Auto0.30.3-0.8 10 3/uLEosinophils Absolute Auto0.00.0-0.7 10 3/uLBasophils Absolute Auto0.00.0- 0.1 10 3/uLImmature Granulocytes Abs Auto0.050.00-0.03 10 3/uLPerforming Lab:see noteML - [facility] LBUrine Culture, Routine Reviewed date:03/11/2024 12:56:05 PM Interpretation: Performing Lab: Notes/Report: [facility] ,Urine Culture, RoutineSee Below For Report Urine Culture, Routine Organism: Gram negative hayes : O:ECMS Isolated O:GNR Isolated Organism: 1.1 Antibiotic Interpretation CHUY Status Urine Culture, Routine*ABNORMAL* Urine Culture, Routine Organism: Gram negative hayes : O:ECMS Isolated O:GNR Isolated Organism: 1.1 Antibiotic Interpretation CHUY Status Urine Culture, Aedysmk25,000-100,000 colony forming units per mL Urine Culture, Routine Organism: Gram negative hayes : O:ECMS Isolated O:GNR Isolated Organism: 1.1 Antibiotic Interpretation CHUY Status Urine Culture, RoutineGram negative hayes Urine Culture, Routine Organism: Gram negative hayes : O:ECMS Isolated O:GNR Isolated Organism: 1.1 Antibiotic Interpretation CHUY Status Urine Culture, RoutineOrganism: Escherichia coli, : Urine Culture, Routine Organism: Gram negative hayes : O:ECMS Isolated O:GNR Isolated Organism: 1.1 Antibiotic Interpretation CHUY Status Urine Culture, Routine*ABNORMAL* Urine Culture, Routine Organism: Gram negative hayes : O:ECMS Isolated O:GNR Isolated Organism: 1.1 Antibiotic Interpretation CHUY Status Urine Culture, RoutineCefazolin <=4 ug/mL Urine Culture, Routine Organism: Gram negative hayes : O:ECMS Isolated O:GNR Isolated Organism: 1.1 Antibiotic Interpretation CHUY Status Urine Culture, RoutineCefazolin with an CHUY <=16 predicts susceptibility Urine Culture, Routine Organism: Gram negative hayes : O:ECMS Isolated O:GNR Isolated Organism: 1.1 Antibiotic Interpretation CHUY Status Urine Culture, Routineto the oral agents cefaclor, cefdinir, cefpodoxime, Urine Culture, Routine Organism: Gram negative hayes : O:ECMS Isolated O:GNR Isolated Organism: 1.1 Antibiotic Interpretation CHUY Status Urine Culture, Routinecefprozil, cefuroxime, cephalexin, and loracarbef when Urine Culture, Routine Organism: Gram negative hayes : O:ECMS Isolated O:GNR Isolated Organism: 1.1 Antibiotic Interpretation CHUY Status Urine Culture, Routineused for therapy of uncomplicated urinary tract Urine Culture, Routine Organism: Gram negative hayes : O:ECMS Isolated O:GNR Isolated Organism: 1.1 Antibiotic Interpretation CHUY Status Urine Culture, Routineinfections due to E. coli, Klebsiella pneumoniae, and Urine Culture, Routine Organism: Gram negative hayes : O:ECMS Isolated O:GNR Isolated Organism: 1.1 Antibiotic Interpretation CHUY Status Urine Culture, RoutineProteus mirabilis. Urine Culture, Routine Organism: Gram negative hayes : O:ECMS Isolated O:GNR Isolated Organism: 1.1 Antibiotic Interpretation CHUY Status Urine Culture, Tinrnhj84,000-100,000 colony forming units per mL Urine Culture, Routine Organism: Gram negative hayes : O:ECMS Isolated O:GNR Isolated Organism: 1.1 Antibiotic Interpretation CHUY Status Urine Culture, RoutineEscherichia coli, Urine Culture, Routine Organism: Gram negative hayes : O:ECMS Isolated O:GNR Isolated Organism: 1.1 Antibiotic Interpretation CHUY Status Urine Culture, RoutineSee Below For Report Urine Culture, Routine Organism: Gram negative hayes : O:ECMS Isolated O:GNR Isolated Organism: 1.1 Antibiotic Interpretation CHUY Status Urine Culture, RoutineSee Below For Report Urine Culture, Routine Organism: Gram negative hayes : O:ECMS Isolated O:GNR Isolated Organism: 1.1 Antibiotic Interpretation CHUY Status Urine Culture, RoutinePerformed at: - [facility], Routine Organism: Gram negative hayes : O:ECMS Isolated O:GNR Isolated Organism: 1.1 Antibiotic Interpretation CHUY Status Urine Culture, [address] [place], [place] [id number] Urine Culture, Routine Organism: Gram negative hayes : O:ECMS Isolated O:GNR Isolated Organism: 1.1 Antibiotic Interpretation CHUY Status Urine Culture, RoutineLab Director: Moose Pate PhD, Phone: [phone] Urine Culture, Routine Organism: Gram negative hayes : O:ECMS Isolated O:GNR Isolated Organism: 1.1 Antibiotic Interpretation CHUY Status Urine Culture, RoutineSee Below For Report Urine Culture, Routine Organism: Gram negative hayes : O:ECMS Isolated O:GNR Isolated Organism: 1.1 Antibiotic Interpretation CHUY Status Urine Culture, RoutineAMOXICILLIN/CLAVULANIC ACID S F Urine Culture, Routine Organism: Gram negative hayes : O:ECMS Isolated O:GNR Isolated Organism: 1.1 Antibiotic Interpretation CHUY Status Urine Culture, RoutineAmpicillin S F Urine Culture, Routine Organism: Gram negative hayes : O:ECMS Isolated O:GNR Isolated Organism: 1.1 Antibiotic Interpretation CHUY Status Urine Culture, RoutineCefepime S F Urine Culture, Routine Organism: Gram negative hayes : O:ECMS Isolated O:GNR Isolated Organism: 1.1 Antibiotic Interpretation CHUY Status Urine Culture, RoutineCeftriaxone S F Urine Culture, Routine Organism: Gram negative hayes : O:ECMS Isolated O:GNR Isolated Organism: 1.1 Antibiotic Interpretation CHUY Status Urine Culture, RoutineCefuroxime S F Urine Culture, Routine Organism: Gram negative hayes : O:ECMS Isolated O:GNR Isolated Organism: 1.1 Antibiotic Interpretation CHUY Status Urine Culture, RoutineCiprofloxacin S F Urine Culture, Routine Organism: Gram negative hayes : O:ECMS Isolated O:GNR Isolated Organism: 1.1 Antibiotic Interpretation CHUY Status Urine Culture, RoutineErtapenem S F Urine Culture, Routine Organism: Gram negative hayes : O:ECMS Isolated O:GNR Isolated Organism: 1.1 Antibiotic Interpretation CHUY Status Urine Culture, RoutineGentamicin S F Urine Culture, Routine Organism: Gram negative hayes : O:ECMS Isolated O:GNR Isolated Organism: 1.1 Antibiotic Interpretation CHUY Status Urine Culture, RoutineImipenem S F Urine Culture, Routine Organism: Gram negative hayes : O:ECMS Isolated O:GNR Isolated Organism: 1.1 Antibiotic Interpretation CHUY Status Urine Culture, RoutineLevofloxacin S F Urine Culture, Routine Organism: Gram negative hayes : O:ECMS Isolated O:GNR Isolated Organism: 1.1 Antibiotic Interpretation CHUY Status Urine Culture, RoutineMeropenem S F Urine Culture, Routine Organism: Gram negative hayes : O:ECMS Isolated O:GNR Isolated Organism: 1.1 Antibiotic Interpretation CHUY Status Urine Culture, RoutineNitrofurantoin S F Urine Culture, Routine Organism: Gram negative hayes : O:ECMS Isolated O:GNR Isolated Organism: 1.1 Antibiotic Interpretation CHUY Status Urine Culture, RoutineTetracycline S F Urine Culture, Routine Organism: Gram negative hayes : O:ECMS Isolated O:GNR Isolated Organism: 1.1 Antibiotic Interpretation CHUY Status Urine Culture, RoutineTobramycin S F Urine Culture, Routine Organism: Gram negative hayes : O:ECMS Isolated O:GNR Isolated Organism: 1.1 Antibiotic Interpretation CHUY Status Urine Culture, RoutineTrimethoprim/Sulfamethoxazole S F Urine Culture, Routine Organism: Gram negative hayes : O:ECMS Isolated O:GNR Isolated Organism: 1.1 Antibiotic Interpretation CHUY Status Urine Culture, RoutinePiperacillin/Tazobactam S F Urine Culture, Routine Organism: Gram negative hayes : O:ECMS Isolated O:GNR Isolated Organism: 1.1 Antibiotic Interpretation CHUY Status Performing Lab:see note LC - [facility] LB SEE REPORT - Marketing Officer Id information not found for OBX-specific web producer legend URINE MICROSCOPIC ONLY Reviewed date:03/07/2024 12:18:10 PM Interpretation: Performing Lab: Notes/Report: [facility] ,WBC Urine0-2NONE SEEN #/HPFRBC Urine>1000-2 #/HPFBacteria UrineTRACENONE SEEN #/HPFMucus UrineNONE SEENNONE SEENSquamous Epithelial Cell UrineFEWNONE/RARE #/LPFCrystals Seen?None SeenNone Seen #/HPFCast Seen?NONE SEENNONE SEEN #/LPF Urine Culture IndicatedNOPerforming Lab:see noteML - [facility] LBUA (CLEAN or CATCH) STAMPING DIE MAKER BENCH or MICRO IF IND. Reviewed date:03/07/2024 12:18:10 PM Interpretation: Performing Lab: Notes/Report: [facility] ,Color UrineDK. REDYELLOWClarity UrineCLEARCLEARSpecific [place] Urine1.020 1.005-1.025pH UrineCOLOR INTERFERENCE5.0-9.0Protein UrineCOLOR INTERFERENCE NEG/TRACE mg/dLGlucose Urine UACOLOR INTERFERENCENEGATIVE mg/dLBilirubin Urine COLOR INTERFERENCENEGATIVEKetones UrineCOLOR INTERFERENCENEGATIVE mg/dLBlood UrineCOLOR INTERFERENCENEGATIVENitrite UrineCOLOR INTERFERENCENEGATIVE Urobilinogen UrineCOLOR INTERFERENCE0.2-1.0 EU/dLLeukocyte Esterase UrineCOLOR INTERFERENCENEGATIVEUrine Microscopic IndicatedYESPerforming Lab:see noteML - [facility] LBCBC AUTO DIFF Reviewed date:03/07/2024 12:18:10 PM Interpretation: Performing Lab: Notes/Report: [facility] ,White Blood Count9.64.0-11.0 10 3/uLRed Blood Count3.724.20-5.40 10 6/uL Rkxdnyelvj27.412.0-16.0 g/oSEctzykwbup53.836.0-48.0 %Mean Corpuscular Sjtmzx10.5 81.0-99.0 fLMean Corpuscular Ssdlyurvbj85.626.7-34.0 pgMean Corpuscular HGB Conc 32.829.9-35.2 g/dLRed Cell Distribution Width14.311.0-15.0 %Platelet Wlvbk356 150-450 10 3/uLMean Platelet Pglibm04.59.5-13.5 fLNeutrophils Percent Auto73.0 43.0-75.0 %Lymphocytes Percent Auto21.920.5-60.0 %Monocytes Percent Auto4.01.7- 12.0 %Eosinophils Percent Auto0.50.9-7.0 %Basophils Percent Auto0.20.2-2.0 % Immature Granulocytes Pct Auto0.40.0-0.5 %Neutrophils Absolute Auto7.01.4-6.5 10 3/uLLymphocytes Absolute Auto2.11.2-3.8 10 3/uLMonocytes Absolute Auto0.40.3-0.8 10 3/uLEosinophils Absolute Auto0.10.0-0.7 10 3/uLBasophils Absolute Auto0.00.0- 0.1 10 3/uLImmature Granulocytes Abs Auto0.040.00-0.03 10 3/uLPerforming Lab:see noteML - [facility] LBPROF 14(COMP METB) Reviewed date:10/23/2024 09:12:25 PM Interpretation: Performing Lab: Notes/Report: [facility] ,Kbpykf907426-340 mmol/LPotassium4.33.5-5.1 mmol/MMhwyufgd38744-302 mmol/LCarbon Rfvgvxv55.121.0-32.0 mmol/LAnion Gap14.5Hlmbcik72529-939 mg/dLBlood Urea Nitrogen9.07.0-18.0 mg/dLCreatinine0.780.55-1.02 mg/dLEstimated GFR ( Bekah>60>=60 mL/min/1.73m 2Estimated GFR (Non- Aruna>60>=60 mL/min/1.73m 2BUN Creatinine Ratio11.1Qefhrkw4.08.5-10.1 mg/dLBilirubin Total0.40.2-1.0 mg/dL Aspartate Amino Urcsyjmhrgn6863-63 U/LAlanine Wevdalhcapegnoxk8315-12 U/L Alkaline Ivipqqcebfp67428-593 U/LTotal Protein6.86.4-8.2 g/dLAlbumin Level2.7 3.4-5.0 g/dLGlobulin4.1Albumin Globulin Ratio0.7Performing Lab:see note - [facility] LBCBC no Diff (Hemogram) Reviewed date:10/22/2024 08:58:52 AM Interpretation: Performing Lab: Notes/Report: [facility] ,White Blood Count15.64.0-11.0 10 3/uLRed Blood Count3.854.20-5.40 10 6/uL Pqnkbhomyx69.812.0-16.0 g/aDDenbszynmp08.036.0-48.0 %Mean Corpuscular Moqely72.5 81.0-99.0 fLMean Corpuscular Vggawcuqdo34.626.7-34.0 pgMean Corpuscular HGB Conc 32.829.9-35.2 g/dLRed Cell Distribution Width13.811.0-15.0 %Platelet Rgqwa270 150-450 10 3/uLMean Platelet Saeobc19.89.5-13.5 fLPerforming Lab:see noteML - [facility] Reason For Referral No Information Medications Medication SIG (Take, Route, Frequency, Duration) Notes Start Date End Date Status Omeprazole 20 MG TAKE 1 CAPSULE BY [facility] EVERY DAY 1/2 TO 1 HOUR BEFORE MORNING MEAL; Duration: 90 days ActiveVenlafaxine HCl 37.5 MG1 tablet with food Orally Once a dayActive EPINEPHrine 0.3 MG/0.3MLas directed InjectionActiveZepbound 2.5 MG/0.5MLas directed Subcutaneous weekly; Duration: 28 dayscall for next dose01/23/2025 ActivelamoTRIgine 150 MG1 tablet Orally Once a dayActiveLatuda 60 MG1 tablet in the evening with food Orally Once a dayActiveNurtec 75 MGTAKE 1 TABLET BY MOUTH EVERY DAY NEEDED; Duration: 8PRNActive Immunizations Vaccine Route Administration Date Status Comme nts Flu, Flucelvax (6644-7572) (13545) 6 mos +, single-dose syringe IM Intramuscular 06/20/2023 Administered PPD TestID Tvybfsijlwa11/20/2024dministeredPPD TestID Fxtdjnifozu27/27/2024 AdministeredTdap (Adacel)IM Laeyfmckbfieq84/20/2024dministered Social History Tobacco Use: Social History Observation Description Date Details (start date - stop date) Former Smoker 10/03/2007 - 09/30/2023 Alcohol Screen (Audit-C) Question Answer Notes Did you have a drink containing alcohol in the p ast year? Yes How often did you have 6 or more drinks on one occasion in the past year?Never (0 point)How many drinks did you have on a typical day when you were drinking in the past year?1 or 2 drinks (0 point)How often did you have a drink containing alcohol in the past year?Less than monthly (1 point)Gtpkqd4Dfziczyfxueyjb NegativeTobacco Control (Standard) Question Answer Notes Tobacco use: Former smoker When did you start smoking?10/03/2007When did you stop smoking?4AUDIT-C (Standard) Question Answer Notes Did you have a drink containing alcohol in the p ast year? No Hmlnja3AsslarzenzzfgfXdzvftji Problems Problem Type SNOMED Code ICD Code Onset Dates Problem Status W/U Status Risk Notes Problem Gastro-esophageal re flux disease without esophagitis (662394376) Gastro-esophageal reflux disease without esophagitis (K21.9) ActiveconfirmedProblemOverweight (524924797)Overweight (E66.3)Activeconfirmed ProblemHidradenitis suppurativa (61498090)Hidradenitis suppurativa (L73.2)Active confirmedProblemShortness of breath (336893004)Shortness of breath (R06.02) ActiveconfirmedProblemParesthesia (finding) (41423378)Paresthesia of skin (R20.2)ActiveconfirmedProblemExposure to communicable disease (374226314)Contact with and (suspected) exposure to other viral communicable diseases (Z20.828) ActiveconfirmedProblemCigarette smoker (48219501)Cigarette smoker (F17.210) ActiveconfirmedProblemAnxiety (13600499)Anxiety (F41.9)ActiveconfirmedProblem Obstructive sleep apnea (72365801)Obstructive sleep apnea (G47.33)Active confirmedProblemInsomnia (547593185)Insomnia (G47.00)ActiveconfirmedProblem Migraine (05451130)Migraine (G43.909)ActiveconfirmedProblemSinusitis (10724254) Sinusitis (J32.9)ActiveconfirmedProblemAllergic rhinitis (19031523)Allergic rhinitis (J30.9)ActiveconfirmedProblemWeight gain (513771039)Weight gain (R63.5) ActiveconfirmedProblemNear syncope (434645012)Near syncope (R55)Activeconfirmed ProblemGastroenteritis (02522437)Gastroenteritis (K52.9)ActiveconfirmedProblem Obese class I (500141317715364)BMI 33.0-33.9,adult (Z68.33)Activeconfirmed ProblemPain in wrist (89661571)Wrist pain, right (M25.531)ActiveconfirmedProblem Recurrent major depression in remission (93904493)Depression, major, recurrent, in partial remission (F33.41)ActiveconfirmedProblemGeneralized aches and pains (14643303)Body aches (R52)ActiveconfirmedProblemPain in limb (51022538)Toe pain, right (M79.674)ActiveconfirmedProblemIrritable bowel syndrome (90991157) Irritable bowel syndrome (IBS) (K58.9)ActiveconfirmedProblemMenstrual period late (87404492)Menstrual period late (N91.0)ActiveconfirmedProblemBody mass index 40+ - severely obese (800754356)Body mass index [BMI] 40.0-44.9, adult (Z68.41)ActiveconfirmedProblemMorbid obesity (405542286)Class 3 obesity (E66.01) Activeconfirmed Vital Signs Heart Rate 84 /min 11/28/2024 Hnawhqplaph77.4 degrees Utbuatoemc66/26/8500Abxhbbdg59 %11/28/2024lood pressure lnmslpafc36 mm Hg01/20/20253138Gxnnel78 in01/20/2025lood pressure swmuebre640 mm Hg01/20/20252220Znicit304 lbs01/20/2025BMI43.53 kg/m201/20/2025 Encounters Encounter Location Date Provider Diagnosis [facility] [address] [place] [address] 06/26/2024 Kimberlyn Xie Nipple pain N64.4 [facility] [address] [place] [address] 11/28/2024 Kimberlynjaime Xie Gastro-esophageal reflux disease without esophagitis K21.9 ; Dizzy spells R42 and Wellness examination Z00.00 [facility] [address] [place] [address] 01/20/2025 Kimberlyn Xie Class 3 obesity E66.01 [facility] [address] [place] [address] 10/22/2024 Kimberlyn Xie [facility] [place] [address] 01/21/20[facility] [place] [address]/24/20[facility] ap[facility] G47.33 Assessments Encounter Date Diagnosis (ICD Code) Assessment Notes Treatment Notes Treatment Clinical Notes Section Notes 06/26/2024 Nipple pain (ICD-10 - N64.4) keep nipples clean and dry as can consider fu franchise field consultant nipple shield ? see if baby can latch if not improving, worsens, fu 11/28/2024Gastro-esophageal reflux disease without esophagitis (ICD-10 - K21.9) 11/28/2024Dizzy spells (ICD-10 - R42) denies racing heart, palpitations denies ear pain increase fluids, electrolytes checking labs, urine fu if continues 01/20/2025lass 3 obesity (ICD-10 - E66.01) work on diet fu 3 m 01/22/2025Obstructive sleep apnea (ICD-10 - G47.33)11/28/2024Wellness examination (ICD-10 - Z00.00)11/28/2024Other discussed breast milk production ways to support [...] CBC WITH DIFF 11/28/2024 Next Appt Details Provider Name:Kimberlyn Coronel barbara, 02/18/2025 02:00:00 PM, [address] [place], [address], Insurance Providers Payer Name Payer Address Payer Phone Subscriber Number Group Number Insured Name Patient Relationship to Insured Coverage Start Date Coverage End Date [employer] ACCESS PPO PLUS LOCAL PLAN [address] [place] [address] [id number] Izquierdo Spouse - patient is the spouse of the insured [employer] [place] MEDICAIDPO [address] [place] [phone] [id number], EmiliaSelf - patient is the insured Medical (General) History Medical History [...] Insomnia G47.00 Surgical History Surgery Date(Month/Year) Cholecystectomy AppendectomyC-section j8Yeqznfmgkzzalty History Reason Date(Month/Year) UTI 10/23 Surgeries UTI several times
--- OUTSIDE RECORDS SUMMARY | 2025-02-18 11:29 | XMS_ITS | Clinical Summary ---
Author Organization [employer] Address [id number] [address] [place] [address] Care Team Providers Care Regional Engagement Consultant Name Role Phone No Pcp, No Pcp Primary Care Provider Unavailabl e Allergies Active AllergyReactionsCriticalityNoted DateCommentsSulfamethoxazoleHives 01/25/20240838IerixgppjkyxGqmyf14/26/2024 Medications MedicationSigDispense QuantityRefillsLast FilledStart DateEnd DateStatus ziprasidone (GEODON) 80 mg capsule Take 120 mg by mouth 2 (two) times a day with meals.Active buPROPion (WELLBUTRIN) 100 mg tablet Take 50 mg by mouth 2 (two) times a day.Active lamoTRIgine (LaMICtal) 25 mg tablet Take 8 tablets (200 mg total) by mouth in the morning.Active lurasidone (LATUDA) 40 mg tablet Take 60 mg by mouth in the morning.Active venlafaxine XR (EFFEXOR XR) 37.5 mg 24 hr capsule Take 1 capsule (37.5 mg total) by mouth in the morning.Active acetaminophen (TYLENOL EXTRA STRENGTH) 500 mg tablet Take 2 tablets (1,000 mg total) by mouth every 6 (six) hours as needed for pain. 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, /17/2024yelonephritis affecting 02/08/2024 Immunizations No known immunizations Family History Medical HistoryRelationNameCommentsDiabetesFatherHypertensionFatherRelationName StatusCommentsFather Social History Tobacco UseTypesPacks/DayYears UsedDateSmoking Tobacco: FormerSmokeless Tobacco: Never Tobacco Cessation:Counseling Given: Not Answered 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 Alcohol UseStandard Drinks/WeekCommentsNever0 (1 standard drink = 0.6 oz pure alcohol)ChildcareAnswerDate IvamszboLtqcfxzezYhlpxuh17/10/2019EmploymentAnswer Date EenqcpcoOumcrywwmeHiscdan46/10/2019Hunger ScreeningAnswerDate Recorded Within the past 12 months we worried whether our food would run out before we got money to buy more.Never True02/15/2024Within the past 12 months the food we bought just didn't last and we didn't have money to get more.Never True 02/15/2024urpose - LifeAnswerDate RecordedPurpose and direction in lifeUnknown 06/10/2020CommentsNoSex and Gender InformationValueDate RecordedSex Assigned at BirthNot on fileLegal BkaZrhnzr28/04/2015 12:56 PM EDTGender IdentityNot on fileSexual DklevmkkzdrTmjvmcvk88/10/2024 2:45 AM EDT Last Filed Vital Signs Vital SignReadingTime TakenCommentsBlood Wznxlorr708/7402/15/2024 1:03 PM EDT Xsspv705902/15/2024 1:03 PM ATTVjoxpfyxrss87.6 ??C (97.9 ??F)02/09/2024 11:45 AM EDTRespiratory Wxoq7531 9:20 AM EDTOxygen Njakxmemca03%02/08/2024 12:00 PM EDTInhaled Oxygen Concentration--Axpdce262.5 kg (223 lb 12.8 oz)02/15/2024 1:03 PM SARKgkfdm228 cm (5' 2.99 )02/15/2024 1:03 PM EDTBody Mass Index39.65 02/15/2024 1:03 PM EDT Plan of Treatment Health MaintenanceDue DateLast DoneCommentsDepression Itjpmncmg71/07/2000Adult BMI Follow Up Plan2005DTaP,Tdap and Td Vaccines (2 - Td or Tdap)10/11/2021 10/12/2011COVID-19 Vaccine (2 - season)/05/2020Influenza Uwtahkg96/dult BMI Thklhrbfe03/Tobacco Mfsxtmfzl38/ap Smear Goals GoalPatient Goal TypeAssociated ProblemsRecent ProgressPatient-Stated?Author <enter goal here> Lisa Hyatt RN Note: Evaluation of progress towards goal: go home today Medical Devices Not on file Insurance Advance Directives * Full Code (Latest Code Status on File) Date ActivatedDate HedmkocbdhfDdcrzaes75/10/2024 2:59 AM02/09/2024 5:47 PM Care Teams Team MemberRelationshipSpecialtyStart DateEnd Date No [place], [place] [address] PCP - [facility] Qvgejumb41/12/19
--- OUTSIDE RECORDS SUMMARY | 2025-02-18 11:30 | XMS_ITS | Clinical Summary ---
Author Organization [facility] Address [address] [place] [address] Care Team Providers Care Health And Wellness Sales Consultant Name Role Phone Unavailable Primary Care Provider Unavailabl e Allergies Active AllergyReactionsCriticalityNoted DateCommentsEgg Protein-Containing Drug ProductsGI sgxyfvjqtgu82/19/2630WiandfsxdzkjttwhXvyim11/19/2024 Other Reaction(s): Unknown Reaction, hives Sulfamethoxazole-JebhzrppculgWzqught68/26/2024 Other Reaction(s): Unknown EbzuxpuyxzaqNbads50/19/2024 Other Reaction(s): Unknown Reaction, hives Medications MedicationSigDispense QuantityRefillsLast FilledStart DateEnd DateStatus lurasidone (Latuda) 40 MG tablet Take 40 mg by mouth in the morning. Take with meals.10/18/2023ctive venlafaxine XR (Effexor XR) 37.5 MG 24 hr capsule Take 37.5 mg by mouth Daily08/31/2023ctive lamoTRIgine (LaMICtal) 200 MG tablet Take 200 mg by mouth DailyActive aspirin 81 MG EC tablet Take 81 mg by mouth DailyActive ondansetron ODT (Zofran-ODT) 4 MG disintegrating tablet Indications:NauseaTake 1 tablet (4 mg) by mouth every 6 (six) hours if needed for nausea or vomiting for up to 30 doses 30 tablet ctive Alcohol Swabs (Alcohol Prep Pad) 70 % pads Indications:Gestational diabetes mellitus (GDM), antepartum, gestational diabetes method of control unspecified([facility]),Elevated glucose tolerance test Apply 1 Pad topically Daily Use four times daily to check FSBS. 150 each 311/25/2024Active Blood Glucose Monitoring Suppl (D-Care Glucometer) w/Device kit Indications:Gestational diabetes mellitus (GDM), antepartum, gestational diabetes method of control unspecified([facility]),Elevated glucose tolerance test1 kit Daily Use four times daily to check FSBS. In the morning prior to breakfast & 1 hour after each meal for a total of 4times daily. 1 kit 5Active metoclopramide (Reglan) 10 MG tablet Indications:Flank pain,Acute cystitis with hematuria,Urinary tract infection without hematuria, site unspecifiedTake 1 tablet (10 mg) by mouth in the morning and 1 tablet (10 mg) at noon and 1 tablet (10 mg) in the evening. Take before meals. Take 1 tablet by mouth 30 minutes prior to meals 3 times daily as needed for nausea.. 90 tablet 4Active insulin NPH, Isophane, (HumuLIN N,NovoLIN N) 100 UNIT/ML injection Indications:Gestational diabetes mellitus (GDM) in third trimester, gestational diabetes method of control unspecified ([facility])Inject 10 Units under the skin in the morning and 10 Units in the evening. Inject before meals. 10 mL 5Active insulin regular (HumuLIN R,NovoLIN R) 100 UNIT/ML injection Indications:Gestational diabetes mellitus (GDM) in third trimester, gestational diabetes method of control unspecified ([facility])Inject 0.05 mL (5 Units) under the skin in the morning and 0.05 mL (5 Units) in the evening. Injectwith meals. 10 mL 5Active insulin syringe 29G X 1/2 0.5 mL [facility] [place] Indications:Gestational diabetes mellitus (GDM) in third trimester, gestational diabetes method of control unspecified ([facility])Use as instructed 100 each 1205Active Active Problems ProblemNoted DateDiagnosed DateUrinary tract infection without hematuria 04/18/2024Flank pain04/18/2024 Resolved Problems ProblemNoted DateDiagnosed DateResolved Date33 weeks gestation of ([facility])/07/2024Elevated blood pressure complicating in third trimester, antepartum ([facility])/ weeks gestation of ([facility])/07/2024Third trimester ([facility]) /07/2024Gestational diabetes mellitus (GDM) in third trimester ([facility]) Family History Medical HistoryRelationNameCommentsDiabetesFatherhigh blood pressureFather RelationNameStatusCommentsFather Social History Tobacco UseTypesPacks/DayYears UsedDateSmoking Tobacco: Never Assessed CommentsNoSex and Gender InformationValueDate RecordedSex Assigned at Ijkccu2510/26/2023 9:16 AM EDTLegal EieJshpfu08/15/2023 8:05 PM EDTGender Identity Gmpfoa0110/26/2023 9:16 AM EDTSexual OrientationNot on file Last Filed Vital Signs Vital SignReadingTime TakenCommentsBlood Vtjgpauq492/7407/18/2024 1:41 PM EDT Pulse--Temperature--Respiratory Rate--Oxygen Saturation--Inhaled Oxygen Concentration--Vbmdli72.6 kg (213 lb)07/18/2024 1:41 PM PVJPlfppm870.5 cm (5' 2 )03/18/2022 12:00 PM ESTBody Mass Index38.9603/18/2022 12:00 PM EST Plan of Treatment Not on file Insurance
--- OUTSIDE RECORDS SUMMARY | 2025-02-18 11:30 | XMS_ITS | Patient Health Record ---
Author Organization [facility] es Address [address] [place] [address] Care Team Providers Care Juvenile Correctional Officer Name Role Phone Carlota Corral Primary Care Provider [phone] Bety Puentes Unavailable [phone] Dr. Jose Renee Unavailable [phone] Nimo Szymanski Unavailable [phone] Allergies Allergen (clinical drug ingredient) Drug/Non Drug Allergy documented on EMR Reaction Allergy Type Onset Date Status sulfamethoxazole / trimethoprim Bactrim Unknown Drug Allergy Active Reason For Referral No Information Medications Medication SIG (Take, Route, Frequency, Duration) Notes Start Date End Date Status ALPRAZolam 0.5 MG Tablet TAKE 1 TABLET D AILY, MAY TAKE additional 1 TAB PRN AT FIRST SIGN OF PANIC ATTACK Orally as directed; Duration: 15 days F41.1 08/31/2023 Not-Taking/PRNPropranolol HCl 40 MG Tablet2 tabs Orally Twice a day Not-Taking/PRNclonazePAM 0.5 MG Tablet1 tab qAM daily; may take second tab daily as needed for anxiety Orally as directed; Duration: 15 daysF41. Not-Taking/PRNClaritin 10 MG Tablet1 tablet Orally Once a dayNot-Taking/PRN Ibuprofen 800 MG Tablet1 tablet with food or milk as needed Orally Three times a day5ActiveLurasidone HCl 80 MG Tablet1 tablet in the evening with food Orally Once a day; Duration: 30 days5ActivePriLOSEC OTC 20 MG Tablet Delayed Release1 tablet 30 minutes before morning meal Orally Once a day Not-Taking/PRNVenlafaxine HCl ER 37.5 MG Capsule Extended Release 24 Hour1 capsule Orally Once a day; Duration: 30 days11/09/2022ctiveNurtec 75 MG Tablet Disintegrating1 tablet on the tongue and allow to dissolve OrallyNot-Taking/PRN lamoTRIgine 200 MG Tablet1 tablet Orally Once a day; Duration: 30 days12/12/2022 ActiveRexulti 2 MG Tablet1 tablet Orally Once a day; Duration: 90 days Not-Taking/PRNcarBAMazepine 200 MG Tablet1 tablet Orally Twice a day; Duration: 90 daysNot-Taking/PRN Social History Tobacco Use: Social History Observation Description Date Details (start date - stop date) Former Smoker NA - NA Social History GeneralSocial InfoQuestionAnswerNotesTransition of Care:ER/UC/hospital since last office visit?NoSubstance abuse/mental health issues of patient/family Patient -DeniesAbility to understand healthcare/treatmentPatient:Mark Screen:Are you a:former smoker? How long has it been since you last smoked?5-10 yearsSocial/Support Concerns:Patient:NoAlcohol Screening:Did you have a drink containing alcohol in the past year?Yes? How often did you have a drink containing alcohol in the past year?Monthly or less (1 point)? How many drinks did you have on a typical day when you were drinking in the past year?1 or 2 (0 points)? How often did you have six or more drinks on one occasion in the past year?Never (0 points)Xnhrty8CjmttzlsmopqlwHtrrnnlhMmiodopaj affecting health Poor/Risky Behaviors:Denies-Communication Barrier:Language Barrier?:No Problems Problem Type SNOMED Code ICD Code Onset Dates Problem Status W/U Status Risk Notes Problem Irritable bowel synd aníbal with diarrhea (375112943) Irritable bowel syndrome with diarrhea (K58.0) ActiveconfirmedProblemBipolar affective disorder, currently depressed, mild (806658333)Bipolar 1 disorder, depressed, mild (F31.31)ActiveconfirmedProblem Obese class II (354740757914424)BMI 36.0-36.9,adult (Z68.36)Activeconfirmed ProblemGeneralized anxiety disorder (30836479)Anxiety, generalized (F41.1)Active confirmed Vital Signs Heart Rate 93 /min 12/02/2024 Respiratory Rate12 /min12/02/20246103Ncsccwnl11 %04/01/2025Blood pressure diastolic 96 mm Hg12/02/20241328Ohsatr30 in12/02/2024lood pressure jpkxuvpi723 mm Hg 12/02/20248478Okluci812 lbs12/02/2024BMI39.82 kg/m212/02/2024 Encounters Encounter Location Date Provider Diagnosis [facility] [address] [place] [address] 05/27/[address] [facility] [place] [address]/03/2025 Nimo CoxBipolar 1 disorder, depressed, mild F31.31 and Anxiety, [facility] [place] [address] 05/27/2024Joseph RizkEncounter for dental examination and cleaning with abnormal findings Z01.21 ; Other dental procedure status Z98.818 ; Cracked tooth K03.81 and Dental caries on pit and fissure surface penetrating into dentin K02.52 [facility] [place] [address]/06/2024 Bety PuentesAcute gingivitis, plaque induced K05.00[facility] [place] [address]/10/2024Joseph RizkCracked tooth K03.81 [facility] [facility] [address]/hristy Szymanski Bipolar 1 disorder, depressed, mild F31.31 and Anxiety, generalized [facility]41.[facility] [facility] [address]/hristy CoxBipolar 1 disorder, depressed, mild F31.31 and Anxiety, generalized F41.1 Assessments Encounter Date Diagnosis (ICD Code) Assessment Notes Treatment Notes Treatment Clinical Notes Section Notes 12/02/2024 Bipolar 1 disorder, depressed, m ild (ICD-10 - F31.31) Patient will continue current [...] tremors, muscle spasms, slowness of movement or jerkingof muscles. . Stable . The patient verbalizes [...] consented to the start/continuation of the treatment. 5Anxiety, generalized (ICD-10 - F41.1) Recommended treatment is: [...] contact information was provided to the patient/guardian. 5Bipolar 1 disorder, depressed, mild (ICD-10 - F31.31) [...] tremors, muscle spasms, slowness of movement or jerkingof muscles. Stable The patient verbalizes understanding with [...] consented to the start/continuation of the treatment. 5Anxiety, generalized (ICD-10 - F41.1)5Cracked tooth (ICD-10 - K03.81)5Acute gingivitis, plaque induced (ICD-10 - K05.00)05/27/2024 Encounter for dental examination and cleaning with abnormal findings (ICD-10 - Z01.21)07/09/2024ipolar 1 disorder, depressed, mild (ICD-10 - F31.31)07/09/2024 Anxiety, generalized (ICD-10 - F41.1)05/27/2024Other dental procedure status (ICD-10 - Z98.818)5Cracked tooth (ICD-10 - K03.81)05/27/2024Dental caries on pit and fissure surface penetrating into dentin (ICD-10 - K02.52) Plan Of Treatment Pending Test Test Name Order Date A1C with Estimated Average Glu 4 Comprehensive Metabolic Panel 08/31/2023 Lipid Panel 08/31/2023 Prolactin 08/31/2023 Thyroid Stim Hormone w/Rflx 08/31/2023 Vitamin D 25 Hydroxy 08/31/2023 Complete Blood Count Auto Diff 4 Next Appt Details Provider Name:Jose Renee, 1 05/06/2024 09:00:00 AM, [address] [place], [address], Provider Name:Bety Puentes , 07/22/2025 08:00:00 AM, [address], [place], [address], Insurance Providers Payer Name Payer Address Payer Phone Subscriber Number Group Number Insured Name Patient Relationship to Insured Coverage Start Date Coverage End Date ANTHE[employer] Primary [address] [place] [phone] [id number] RUIZ, PROSPER Self - patient is the insured 2 ANTHEM PrimaryPO [address] [place] [id number], ANTHONYSpouse - patient is the spouse of the [id number] 2020 [facility]PO [address] [place] [address] [id number], EMILIASelf - patient is the insured 3[facility] [employer] [facility] [address] [place] [address] [id number], EMILIASelf - patient is the [id number] 2024 [employer] [facility]urcePO [address] [place] [phone] [id number], EMILIASelf - patient is the [id number] 2024 Medical (General) History Medical History History ICD Code mood disorder Surgical History Surgery Date(Month/Year) x 3 appendectomycholecystectomyHospitalization History Reason Date(Month/Year) See surgery
--- OUTSIDE RECORDS SUMMARY | 2025-02-18 11:32 | XMS_ITS | CCD ---
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 Name Role Phone Kimberlyn Xie Primary Care [...] Attending Unavailable JORJE, JOHNATHAN Attending Unavailable LIZA MERAZ Attending Unavailable LIZA MERAZ Attending Unavailable LIZA MERAZ Attending Unavailable JORJE, JOHNATHAN Attending Unavailable JORJE, JOHNATHAN Attending Unavailable JORJE, JOHNATHAN Attending Unavailable LIZA MERAZ Attending Unavailable LIZA MERAZ Attending Unavailable JOHNATHAN RECINOS Attending Unavailable LIZA MERAZ Attending Unavailable Jose Modi Attending Unavailable Jose Modi Admitting Unavailable Johnathan Recinos Attending Unavailable Johnathan Recinos Admitting Unavailable Unavailable Unavailable Unavailable Allergies Allergy ClassificationReported Allergen(s)Allergy TypeDate of OnsetReaction(s) Facility (3 sources)egg extract; Translations: [egg]Drug Nxiqcbr64-20-9407Qcvzoouk [facility] (20 sources)Sulfamethoxazole; Translations: [SULFAMETHOXAZOLE]Drug Allergy 66-57-1202[facility]kroHxlorpddbBar[facility] (20 sources)Trimethoprim; Translations: [TRIMETHOPRIM]Drug Wjamhzj16-62-7216 [facility] (3 sources)Fish Containing Products; Translations: [Fish Containing Products] Propensity to adverse xdgheetsw56-87-5123Etapmxtpsk [facility] (1 source)Sulfamethoxazole / TrimethoprimDrug Ddknxvi71-52-1912[facility] (20 sources)Sulfamethoxazole / TrimethoprimDrug Szftfdd41-31-7810hgqti, Unknown [facility] Other (20 sources)Egg-Derived ProductsDrug Lykeiit26-60-0917PQ intoleranceNOMS Healthcare Medications Current Medications MedicationDrug Class(es)DatesSig (Normalized)Sig (Original)acetaminophen 500 mg oral tablet (2 sources)take 2 tablets by mouth every six hours as needed for pain acetaminophen (TYLENOL EXTRA STRENGTH) 500 mg tablet Take 2 tablets (1,000 mg total) by mouth every6 (six) hours as needed for pain. Nunwjomab559006 200 actuat albuterol 0.09 mg/actuat metered dose inhaler (2 sources)beta2-Adrenergic AgonistStart: 13-89-2148olxm 2 puff(s) by inhalation every four hours as neededAlbuterol Sulfate HFA 108 (90 Base) MCG/ACT 2 puffs as needed Inhalation every 4 hrs May, ActiveStart: 19-68-8916wenm 2 puff(s) by inhalation every four hours as neededAlbuterol Sulfate HFA 108 (90 Base) MCG/ACT 2 puffs as needed Inhalation every 4 hrs May, Not-Taking/PRN ALPRAZolam 0.5 mg oral tablet (1 source)BenzodiazepineStart: 92-30-2611lmoc 0.5 mg by mouth once daily Alprazolam Active 0.5 MG PO Daily August 18, 2023 12:00amaspirin 81 mg delayed release oral tablet (20 sources)Platelet Aggregation Inhibitor, Nonsteroidal Anti-inflammatory Drug Start: 16-72-8291ysjgmlj 81 mg Indications: 21 weeks gestation of , Obesity affecting in second trimester, unspecified obesity type Take 1 tablet once a day and stop a week before delivery 30 tablet 6 02/15/2024 Active Control Pill (2 sources)Start: 78-30-5002Ahorj Control Pill Active June 29, 2019 9:40pm Start: 06-29-2019 End: 04-81-9265Vorkt Control Pill Discontinued June 29, 2019 1:00am August 18, 2023 2:25pmbisacodyl 10 mg rectal suppository (3 sources)Stimulant LaxativeStart: 01-08-2024 End: 87-90-7417ewgkalqks (Dulcolax) 10 MG suppository Indications: Constipation during in second trimester Insert 1 suppository (10 mg) into the rectum Daily as needed for constipation for up to 4 doses 4suppository 01/08/2024 01/24/2024 DiscontinuedBlood Glucose Monitoring Suppl (D-Care Glucometer) w/Device kit (20 sources)Start: 03-25-2024 End: 34-56-8141Fxzxy Glucose Monitoring Suppl (D-Care Glucometer) w/Device kit Indications: Gestational diabetes mellitus (GDM), antepartum, gestational diabetes method of control unspecified , Elevated glucose tolerance test 1 kit Daily Use four times daily to check FSBS. In the morning prior to breakfast & 1 hour after each meal for a total of 4times daily. 1 kit 03/25/2024 03/25/2025 Activebrexpiprazole 2 mg oral tablet (1 source)Atypical AntipsychoticStart: 78-26-9658kpie 1 tablet by mouth once dailyBrexpiprazole (Rexulti) 2 mg tablet Active 2 MG PO Daily August 18, 2023 12:00am24 hr buPROPion hydrochloride 150 mg extended release oral tablet (5 sources)AminoketoneStart: 75-55-9041jcku 75 mg by mouth once dailyBupropion Hcl Active 75 MG Oral Daily June 29, 2019 9:40pmStart: 06-29-2019 End: 06-44-1325houa 2 tablets by mouth once dailyBupropion Hcl (Wellbutrin Xl) 150 mg Tablet Extended Release 24 Hr Discontinued 75 MG PO Daily June 29, 2019 1:00am August 18, 2023 2:26pmbuPROPion (WELLBUTRIN) 100 mg tablet Take 50 mg by mouth 2 (two) times a day. ActivecarBAMazepine 200 mg oral tablet (1 source)Mood StabilizerStart: 56-02-6123qwen 200 mg by mouth twice daily Carbamazepine Active 200 MG PO Twice daily August 18, 2023 12:00amcephalexin 500 mg oral capsule (20 sources)Cephalosporin AntibacterialStart: 02-24-2024 End: 62-54-0026tmoy 1 capsule by mouth once dailycephalexin (Keflex) 500 MG capsule Indications: Flank pain , Acute cystitis with hematuria , Urinary tract infection without hematuria, site unspecified Take 1 capsule (500 mg) by mouth Daily 30 capsule 4 04/03/2024 05/03/2024 ActiveStart: 02-09-2024 End: 43-88-8762rsqo 1 capsule by mouth every six hoursCEPHalexin (KEFLEX) 500 mg capsule Take 1 capsule (500 mg total) by mouth every 6 (six) hours for 14 days. 56 capsule 02/09/2024 02/23/2024 Activedextromethorphan hydrobromide 15 mg / guaiFENesin 400 mg / pseudoephedrine hydrochloride 60 mg oraltablet (1 source)alpha-Adrenergic Agonist, Uncompetitive R-pcjfqi-R-aspartate Receptor Antagonist, Sigma-1 AgonistStart: 98-89-6468nnfo 4 tablets by mouth every twenty-four hours as neededCapmist DM 60-15-400 MG as needed Orally every 4-6 hours as needed, max 4 tablets in 24 hours for 5days Mar, Active [id number] 0.3 ml EPINEPHrine 1 mg/ml auto-injector (2 sources)alpha-Adrenergic Agonist, beta-Adrenergic Agonist, Catecholamine Start: 74-52-5908Mqmbirjhzqk Active 0.3 MG Intramuscular Once 2 June 29, 2019 10:18pm inject into anterolateral area of thigh; repeat x1 in 5-15 minutes if necessaryStart: 87-69-1945Yxlkibjotwe (Epipen 2-Jose) 0.3 mg/0.3 mL auto- injector Active 0.3 MG IM Once 2 June 29, 2019 1:00am inject into anterolateral area of thigh; repeat x1 in 5-15 minutes if necessaryfamotidine 20 mg oral tablet (2 sources)Histamine-2 Receptor AntagonistStart: 06-29-2019 End: 87-07-6551aojk 20 mg by mouth twice dailyFamotidine Active 20 MG Oral Twice daily 6 3 June 29, 2019 10:18pmhydrOXYzine hydrochloride 25 mg oral tablet (4 sources)AntihistamineStart: 78-46-0283zpyl 25 mg by mouth every six hours Hydroxyzine Hcl Active 25 MG Oral Q6H 15 June 29, 2019 10:18pm hydrOXYzine HCl Activeinsulin isophane, human 100 unt/ml injectable suspension (14 sources)Start: 23-23-2560sheuuq 10 [IU] by subcutaneous injection in the morninginsulin NPH, Isophane, (HumuLIN N,NovoLIN N) 100 UNIT/ML injection Indications: Gestational diabetes mellitus (GDM) in third trimester, gestational diabetes method of control unspecified Inject 10 Units under the skin in the morning and 10 Units in the evening. Inject before meals. 10 mL 5 05/22/2024 Activeinsulin, regular, human 100 unt/ml injectable solution (14 sources)InsulinStart: 05-22-2024 End: 06-14-8001ozpldc 0.05 mL by subcutaneous injection in the morninginsulin regular (HumuLIN R,NovoLIN R) 100 UNIT/ML injection Indications: Gestational diabetes mellitus (GDM) in third trimester, gestational diabetes method of control unspecified Inject 0.05 mL (5 Units) under the skin in the morning and 0.05 mL (5 Units) in the evening. Inject with meals. 10 mL Active isopropyl alcohol 0.7 ml/ml medicated pad (20 sources)Start: 94-19-5424Edpyxru Swabs (Alcohol Prep Pad) 70 % pads Indications: Gestational diabetes mellitus (GDM), antepartum, gestational diabetes method of control unspecified , Elevated glucose tolerance test Apply 1 Pad topically Daily Use four times daily to check FSBS. 150 each 3 03/25/2024 Activeketoconazole 20 mg/ml medicated shampoo (1 source)Azole AntifungalStart: 80-45-2923Xzukvpnadkwt Active TOPICAL August 18, 2023 12:00amlamoTRIgine 200 mg oral tablet (20 sources)Mood Stabilizer, Anti-epileptic AgentStart: 98-43-8775tsmk 200 mg by mouth once dailyLamotrigine Active 200 MG PO Daily August 18, 2023 12:00am Start: 06-29-2019 End: 22-04-1594aesw 100 mg by mouth once dailyLamotrigine Active 100 MG Oral Daily June 29, 2019 9:40pmtake 8 tablets by mouth in the morning lamoTRIgine (LaMICtal) 25 mg tablet Take 8 tablets (200 mg total) by mouth in the morning. ActivelamoTRIgine (LaMICtal) 25 mg tablet Take 30 mg by mouth 2 (two) times a day. ActiveLaMICtal Activeloratadine 10 mg oral tablet (1 source)Start: 69-86-5780flwe 10 mg by mouth once dailyLoratadine Active 10 MG PO Daily August 18, 2023 12:00amlurasidone hydrochloride 40 mg oral tablet (20 sources)Atypical AntipsychoticStart: 77-57-1553ansb 1 tablet by mouth at mealtimelurasidone (Latuda) 40 MG tablet Take 40 mg by mouth in the morning. Take with meals. 10/18/2023 Activelurasidone (LATUDA) 40 mg tablet Take 60 mg by mouth in the morning. ActiveLatuda Activemagnesium oxide 400 mg oral tablet (20 sources)Start: 01-09-2024 End: 33-16-4295odkv 1 tablet by mouth once dailymagnesium oxide (Mag-Ox) 400 MG tablet Indications: Constipation during in second trimester Take 1 tablet (400 mg) by mouth Daily 30 tablet 11 01/09/2024 01/08/2025 Active metoclopramide 10 mg oral tablet (20 sources)Dopamine-2 Receptor AntagonistStart: 04-03-2024 End: 29-58-5368labfinsbmdjtmq (Reglan) 10 MG tablet Indications: Flank pain , Acute cystitis with hematuria , Urinary tract infection without hematuria, site unspecified Take 1 tablet (10 mg) by mouth in the morning and 1 tablet (10 mg) at noon and 1 tablet (10 mg) in the evening. Take before meals. Take 1 tabletby mouth 30 minutes prior to meals 3 times daily as needed for nausea.. 90 tablet 2 04/03/2024 ActiveStart: 12-01-2023 End: 05-85-2894bkodbwqfvkqrmt (Reglan) 10 MG tablet Indications: Nausea Take 1 tablet (10 mg) by mouth in the morning and 1 tablet (10 mg) at noon and 1 tablet (10 mg) in the evening. Take before meals. Take 1 tablet by mouth 30 minutes prior to meals 3 times daily as needed for nausea.. 90 tablet 12/01/202301/23 Discontinuedomeprazole 40 mg delayed release oral capsule (1 source)Proton Pump InhibitorStart: 95-46-8642uvgp 40 mg by mouth once daily Omeprazole Active 40 MG PO Daily August 18, 2023 12:00amondansetron 4 mg disintegrating oral tablet (20 sources)Serotonin-3 Receptor AntagonistStart: 03-08-2024 End: 51-02-7161fptn 1 tablet by mouth every six hours as needed for nausea and vomiting and nausea and nauseaondansetron ODT (Zofran-ODT) 4 MG disintegrating tablet Indications: Nausea Take 1 tablet (4 mg) bymouth every 6 (six) hours if needed for nausea or vomiting for up to 30 doses 30 tablet 2 03/08/2024 Active Start: 65-77-1503tyxc 8 mg by mouth every eight hoursOndansetron Hcl Active 8 MG PO Q8H 21 August 18, 2023 12:00amStart: 47-97-3327uomm 1 tablet by mouth every eight hours as neededZofran ODT 4 MG 1 tablet on the tongue and allow to dissolve Orally every 8 hrs as needed for 4 days May, Not-Taking/PRN predniSONE 20 mg oral tablet (3 sources)Start: 06-74-5703cppo 1 tablet by mouth every twelve hoursprednisone 20 MG 1 tablet Orally BID for 5 Mar, ActiveStart: 06-29-2019 End: 13-25-8593yymo 60 mg by mouth once daily in the morningPrednisone Active 60 MG Oral Every morning 9 June 29, 2019 10:18pm administer with food or m ilkprenatal no115/iron/folic acid ( 19 ORAL) (2 sources) no115/iron/folic acid ( 19 ORAL) Take by mouth. Activepromethazine hydrochloride 12.5 mg oral tablet (20 sources)PhenothiazineStart: 03-25-2024 End: 51-82-8805asir 1 tablet by mouth every six hours as needed for nausea and nausea, then take 1 tablet by mouthevery six hours as needed for nausea and nauseapromethazine (Phenergan) 12.5 MG tablet Indications: Nausea and vomiting in Take 1 tablet(12.5 mg) by mouth every 6 (six) hours if needed for nausea or vomiting Take 1 tablet by mouth every 6 hours as needed for nausea. 30 tablet 2 03/25/2024 06/23/2024 ActiveStart: 11-24-2023 End: 25-98-0698nkwo 1 tablet by mouth every six hours as needed for nausea and vomiting and nausea and nauseapromethazine (Phenergan) 12.5 MG tablet Indications: Nausea Take 1 tablet (12.5 mg) by mouth every 6 (six) hours if needed for nausea or vomiting for up to 30 doses Take 1 tablet by mouth every 6 hours as needed for nausea. 30 tablet 2 11/24/2023 01/24/2024 Discontinued rimegepant 75 mg disintegrating oral tablet (2 sources)Start: 17-77-7232krra 1 tablet by mouth once dailyRimegepant (Nurtec Odt) 75 mg tablet,disintegrating Active 75 MG PO Daily August 18, 2023 12:00am Nurtec 75 MG 1 tablet on the tongue and allow to dissolve Orally Qxubuk78 hr venlafaxine 37.5 mg extended release oral capsule (20 sources)Serotonin and Norepinephrine Reuptake InhibitorStart: 94-83-2055flig 1 capsule by mouth once dailyvenlafaxine XR (Effexor XR) 37.5 MG 24 hr capsule Take 37.5 mg by mouth Daily 08/31/2023 ActiveStart: 46-76-7072jnud 75 mg by mouth once dailyVenlafaxine Active 75 MG PO Daily August 18, 2023 12:00amtake 1 capsule by mouth every twenty-four hours in the morningvenlafaxine XR (EFFEXOR XR) 37.5 mg 24 hr capsule Take 1 capsule (37.5 mg total) by mouth in the mor brant. Activeziprasidone 80 mg oral capsule (3 sources)Atypical Antipsychoticziprasidone (GEODON) 80 mg capsule Take 120 mg by mouth 2 (two) times a day with meals. Active Completed/Discontinued Medications MedicationDrug Class(es)DatesSig (Normalized)Sig (Original)insulin glargine 100 unt/ml injectable solution (7 sources)Insulin AnalogStart: 05-22-2024 End: 16-88-8480sqwhfr 15 [IU] by subcutaneous injection in the eveninginsulin glargine (Lantus) 100 UNIT/ML injection Indications: Hyperglycemia , GESTATIONAL DIABETES Inject 15 Units under the skin in the evening 3 mL 3 05/22/2024 05/22/2024 Discontinued (Entered in error)Start: 05-13-2024 End: 34-34-4676tggppo 10 [IU] by subcutaneous injection in the eveninginsulin glargine (Lantus) 100 UNIT/ML injection Indications: Hyperglycemia , GESTATIONAL DIABETES Inject 10 Units under the skin in the evening 3 mL 3 05/13/2024 05/22/2024 Discontinued (Reorder)methylPREDNISolone 4 mg oral tablet (2 sources)CorticosteroidStart: 80-70-7718izepsdEBHZZWJuruoc 4 MG as directed Orally Once a day for 6 days May, Not-Taking/PRNnitrofurantoin, macrocrystals 25 mg / nitrofurantoin, monohydrate 75 mg oral capsule (2 sources)Nitrofuran AntibacterialStart: 12-05-2023 End: 48-31-2888fanh 1 capsule by mouth in the morningnitrofurantoin, macrocrystal-monohydrate, (Macrobid) 100 MG capsule Indications: Urinary tract infection without hematuria, site unspecified Take 1 capsule (100 mg) by mouth in the morning and 1 capsule (100 mg) before bedtime. Do all this for 7 days. 14 capsule 12/05/2023 12/25/2023 Discontinued (Therapy completed)oseltamivir 75 mg oral capsule (2 sources)Neuraminidase InhibitorStart: 89-14-6371dito 1 capsule by mouth every twelve hoursTamiflu 75 MG 1 capsule Orally Twice a day for 5 day(s) May, Not-Taking/PRN Problems Active Problems Problem ClassificationProblemDateDocumented DateEpisodic/ChronicAllergic reactions (2 sources)Food anaphylaxis; Translations: [Anaphylactic reaction due to unspecified food, initial encounter]27-47-6481GklylofuDfbokfo obstructive pulmonary disease and bronchiectasis (1 source)Bronchitis, not specified as acute or chronicEpisodicDiabetes mellitus without complication (2 sources)Abnormal glucose tolerance test; Translations: [Other abnormal glucose]64-82-4213AvuiguxaVmeexaerxhnbd symptoms and ill-defined conditions (1 source)Personal history of urinary (tract) infections; Translations: [PERS HX URINARY TRACT INFECTIONS]Onset: 30-24-1296ExkwtefwQnhuiesqzrunz and screening for infectious disease (4 sources)Contact with and (suspected) exposure to other viral communicable diseases; Translations: [Contact with or exposure to other viral diseases] EpisodicInfluenza (1 source)Influenza due to other identified influenza virus with other respiratory manifestationsEpisodicMood disorders (2 sources)Major depressive disorder, single episode, unspecified; Translations: [Bipolar disorder]Onset: 779253-91-0586MqasgsbYujtzt and vomiting (1 source)Nausea; Translations: [NAUSEA]Onset: 02-69-9762FtmjveiyNtwdx aftercare (1 source)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; Translations: [OTH ASSISTED CURRENT DRUG THERAPY]Onset: 96-79-2135UshhsivaDybph aftercare (2 sources)Postoperative visit; Translations: [Encounter for other specified surgical aftercare]65-54-6896XgcpiwprMipbi complications of (1 source)Obesity complicating , second trimester; Translations: [Obesity complicating , second trimester]Onset: 55-20-9228WfidxwfHfzov complications of (1 source)Obesity complicating , unspecified trimester; Translations: [Obesity complicating , unspecified trimester]Onset: 45-17-3944Pixftgv Other complications of (4 sources)Maternal obesity complicating , childbirth and the puerperium, antepartum; Translations: [Obesity complicating , second trimester]Onset: 351287-57-8673JaxccvyGwawo complications of (1 source)Supervision of elderly multigravida, second trimester; Translations: [Supervision of elderly multigravida, second trimester]Onset: 17-83-4072Pcebnafi Other complications of (1 source)Supervision of other high risk pregnancies, unspecified trimester; Translations: [Supervision of other high risk pregnancies, unspecified trimester]Onset: 12-08-5704QyizmypjSxrot complications of (1 source)Supervision of high risk , unspecified, unspecified trimester; Translations: [Supervision of high risk , unspecified, unspecified trimester]Onset: 31-71-5173MfcsqcnyOdxwi complications of (1 source)Infections of kidney in , unspecified trimester; Translations: [Infections of kidney in , unspecified trimester]Onset: 27-91-2344TmywlwmaCbwjd female genital disorders (2 sources)Vaginal discharge; Translations: [Other specified noninflammatory disorders of vagina]12-21-3268YkfedyqwTboej gastrointestinal disorders (1 source)Diarrhea, unspecified; Translations: [DIARRHEA UNSPECIFIED]Onset: 73-97-2261IvyvdixmProgk nervous system disorders (1 source)H/O: migraine; Translations: [Personal history of other diseases of the nervous system and sense organs]04-22-8968RjyditkmJvdnq nutritional; endocrine; and metabolic disorders (1 source)Obesity, unspecified; Translations: [OBESITY UNSPECIFIED]Onset: 60-07-2204XaerktgGebgy nutritional; endocrine; and metabolic disorders (1 source)Body mass index (BMI) 39.0-39.9, adult; Translations: [BODY MASS INDEX BMI 39.0-39.9 ADULT]Onset: 17-80-7838LjdrtlfNhros nutritional; endocrine; and metabolic disorders (1 source)Body mass index (BMI) 38.0-38.9, adult; Translations: [BODY MASS INDEX BMI 38.0-38.9 ADULT]Onset: 41-80-9893NzmkvmiRpomq nutritional; endocrine; and metabolic disorders (1 source)Body mass index 30+ - obesity; Translations: [Body mass index (BMI) 39.0-39.9, adult]33-71-1067JiywtvvKrwvj and delivery including normal (20 sources)Second trimester ; Translations: [Encounter for supervision of normal , unspecified, second trimester]Onset: 04-03-2024 Resolved: 450339-54-4889VejlfcqeFfrtm screening for suspected conditions (not mental disorders or infectious disease) (6 sources)Patient encounter status; Translations: [Encounter for screening for diabetes mellitus]Onset: 427597-05-3149LtlcholvIaksa upper respiratory infections (3 sources)Acute upper respiratory infection, unspecified; Translations: [Acute pharyngitis, unspecified]EpisodicPrevious (1 source)Maternal care for unspecified type scar from previous delivery; Translations: [Maternal care for unspecified type scar from previous delivery]Onset: 66-68-2530DifxthdlRvqcoofc codes; unclassified (1 source)Acquired absence of other specified parts of digestive tract; Translations: [ACQ ABSENCE OTH PART DIGESTV TRACT]Onset: 83-19-6536Crsdzpmm Residual codes; unclassified (2 sources)Gestation period, 22 weeks; Translations: [22 weeks gestation of ]11-24-9136BuemjuqfGugtwxxr codes; unclassified (4 sources)Gestation period, 24 weeks; Translations: [24 weeks gestation of ]31-02-7834SsxiuyclCepwhbfi codes; unclassified (1 source)21 weeks gestation of ; Translations: [21 weeks gestation of ]Onset: 62-96-6873CvdciqadMuvommpy codes; unclassified (2 sources)Gestation period, 26 weeks; Translations: [26 weeks gestation of ]31-16-8180SkoainuaNmpzfwck codes; unclassified (2 sources)Gestation period, 18 weeks; Translations: [18 weeks gestation of ]07-75-8844MulofunwAfrttwvu codes; unclassified (2 sources)Gestation period, 35 weeks; Translations: [35 weeks gestation of ]96-76-4848SbssbxvzRepepqzw codes; unclassified (2 sources)Gestation period, 36 weeks; Translations: [36 weeks gestation of ]16-12-0786SyconiicUdybprivk-related disorders (1 source)Nicotine dependence, cigarettes, uncomplicated; Translations: [NICOTINE DEPEND CIGARETTES UNCOMP]Onset: 06-12-7027ShzpbkkChcgftjuzqyu (1 source)PERSONAL HISTORY OF COVID-19; Translations: [PERSONAL HISTORY OF COVID-19]Onset: 84-08-2913Lnnwcxnekiby (1 source)transportOnset: 02-08-2024 Past or Other Problems Problem ClassificationProblemDateDocumented DateEpisodic/ChronicAbdominal pain (20 sources)Unspecified abdominal pain; Translations: [Flank pain]Onset: 16-17-0580FkmyazilVteuexsi or abnormal glucose tolerance complicating ; childbirth; or the puerperium (20 sources)Gestational diabetes mellitus; Translations: [Gestational diabetes mellitus in , unspecified control]Onset: 03-21-2024 Resolved: 250454-19-8168QsjsdlznVonfxopsjwrh complicating ; childbirth and the puerperium (19 sources)Elevated blood pressure; Translations: [Unspecified maternal hypertension, third trimester]Onset: 05-13-2024 Resolved: 971215-83-6592NlmifmxTawvx complications of (3 sources)Pyelonephritis in ; Translations: [Infections of kidney in , unspecified trimester]Onset: 917185-17-9739CrdiperxZdjme complications of (1 source)Multigravida of advanced maternal age; Translations: [Supervision of elderly multigravida, second trimester]64-99-9853CinqndelYwyyj complications of (2 sources)Bipolar disorder; Translations: [Other mental disorders complicating , second trimester]Onset: 529857-43-0869PptswqtsPtzge complications of (2 sources)Supervision of with other poor reproductive or obstetric history, unspecified trimester; Translations: [Supervision of other high-risk ]Onset: 634422-10-4497RendqwjpZayzu complications of (1 source)H/O: premature delivery; Translations: [Supervision of other high risk pregnancies, unspecified trimester]16-66-9649WqxkvoerHwxjm skin disorders (2 sources)Eruption; Translations: [Rash and other nonspecific skin eruption] 23-94-1789JdolcyrjCohrrejn codes; unclassified (20 sources)Gestation period, 28 weeks; Translations: [28 weeks gestation of ]Onset: 04-03-2024 Resolved: 325723-94-8581UspfzcmoKofakwii codes; unclassified (19 sources)Gestation period, 33 weeks; Translations: [33 weeks gestation of ]Onset: 05-13-2024 Resolved: 435256-31-6853PtbygijqCgujueac codes; unclassified (3 sources)Gestation period, 21 weeks; Translations: [21 weeks gestation of ]66-42-7745MovpberxHufqppoi codes; unclassified (2 sources)Nicotine-filled electronic cigarette user; Translations: [Tobacco use]Onset: 954640-07-0763FyftkwaeZzjoxxqmcogi (1 source)Suspected COVID-19 virus infection Z20.822Urinary tract infections (20 sources)Acute cystitis; Translations: [Acute cystitis with hematuria]Onset: 216187-77-8480Pxbhuuui Results Test NameValueInterpretationReference RangeFacilitySpecialty Hospital At [facility] Cultureon 10-21-2024 Bacteria identified Cx Nom (U)ORGANISM: Escherichia coli (O:ESCCOL) Otter Count >100,000 Aerobic CHUY Charge (NMIC56) SUSCEPTIBILITY ORGANISM: O:ESCCOL ANTIBIOTIC INTERPRETATION CHUY Amikacin S <16 Amoxacillin/K Clavulanate S <8 Ampicillin S <8 Ampicillin/Sulbactam S <4 Aztreonam S <4 Cefazolin S <2 Cefepime S <2 Ceftazidime S <1 Ceftazidime/Avibactam S <4 Ceftolozane/Tazobactam S <2 Ceftriaxone S <1 Cefuroxime S <4 Ciprofloxacin S <0.25 Ertapenem S <0.5 Gentamicin S <2 Levofloxacin S <0.5 Meropenem S <1 Meropenem/Vaborbactam S <2 Nitrofurantoin S <32 Piperacillin/Tazobactam S <8 Tetracycline S <4 Tigecycline S <2 Tobramycin S <2 Trimethoprim/Sulfamethoxazole S <0.5 S = SUSCEPTIBLE I = [...] RESISTANT TO ALL B-LACTAM DRUGS. PERFORMED BY: [place] [address] PATHOLOGIST TOWEL HEMMER CHANCE FRANCISCO M.D.NormalHca Florida Osceola Hospital Physician GroupComment on above: Performed By: #### CUU #### [place] [address] USAALL CBC WITH AUTO DIFFon 18-07-7335UPKLKUJVJ ABSOLUTE AUTO 0NOMS HealthcareBasophils/100 WBC (Bld)0.2 %0.2 - 2.0 %[facility] Eosinophils/100 WBC (Bld)0.6 %Low0.9 - 7.0 %NOMS HealthcareErythrocyte distribution width (RBC) [Ratio]13.3 %11.0 - 15.0 %NOMS HealthcareHematocrit (Bld) [Volume fraction]33.2 %Low36.0 - 48.0 %NOMS HealthcareHemoglobin (Bld) [Mass/Vol]10.7 g/dLLow12.0 - 16.0 g/dLNOMA HealthcareIMMATURE GRANULOCYTES ABS AUTO0.02NOMS HealthcareImmature granulocytes/100 WBC (Bld)0.2 %0.0 - 0.5 %NOMS HealthcareInterpretation and review of laboratory resultsAbnormalNOMA Healthcare LYMPHOCYTES ABSOLUTE AUTO2.7NOMS HealthcareLymphocytes/100 WBC (Bld)28.8 %20.5 - 60.0 %NOMS [facility] CenterMCH (RBC) [Entitic mass]28.7 pg26.7 - 34.0 pgNOMS [facility] GlenbeighHC (RBC) [Mass/Vol]32.2 g/dL29.9 - 35.2 g/dLNOCoxHealthMCV (RBC) [Entitic vol]89 fL81.0 - 99.0 fLRIVERTON HOSPITAL HealthcareMONOCYTES ABSOLUTE AUTO0.6NOMS HealthcareMonocytes/100 WBC (Bld)6.2 %1.7 - 12.0 %NOMResearch Medical CenterNEUTROPHILS ABSOLUTE AUTO5.9NOMS HealthcareNeutrophils/100 WBC (Bld)64 %43.0 - 75.0 %[facility] Medical CenterPlatelet mean volume (Bld) [Entitic vol]11.7 fL9.5 - 13.5 fLNOCoxHealthTBH EO #0.1NOMS [facility] CenterTB [id number] [facility] RBC3.73LowNOMS [facility] WBC9.3NOCoxHealthCLINISYNCNELKVIEW GENERAL [facility] HealthcareALL CBC WITH AUTO DIFFon 75-50-6743QHFVYEUEU ABSOLUTE [id number] [facility] CenterBasophils/100 WBC (Bld) 0.1 %Low0.2 - 2.0 %NOMResearch Medical CenterEosinophils/100 WBC (Bld)0.6 %Low0.9 - 7.0 % [facility] CenterErythrocyte distribution width (RBC) [Ratio]13.2 %11.0 - 15.0 % [facility] CenterHematocrit (Bld) [Volume fraction]35.4 %Low36.0 - 48.0 %[facility] CenterHemoglobin (Bld) [Mass/Vol]11.7 g/dLLow12.0 - 16.0 g/dLUniversity Health [facility] Medical Center IMMATURE GRANULOCYTES ABS AUTO0.03NOCoxHealthImmature granulocytes/100 WBC (Bld)0.4 %0.0 - 0.5 %[facility] Medical CenterInterpretation and review of laboratory resultsAbnormalNOCoxHealthLYMPHOCYTES ABSOLUTE AUTO1.7NOMS [facility] Lymphocytes/100 WBC (Bld)24 %20.5 - 60.0 %[facility] (RBC) [Entitic mass]28.7 pg26.7 - 34.0 pgSaint [facility] (RBC) [Mass/Vol]33.1 g/dL29.9 - 35.2 g/dLSaint Luke's North Hospital–SmithvilleV (RBC) [Entitic vol]87 fL81.0 - 99.0 fLNOCoxHealthMONOCYTES ABSOLUTE AUTO0.3NOCoxHealthMonocytes/100 WBC (Bld)4.4 % 1.7 - 12.0 %NOMS HealthcareNEUTROPHILS ABSOLUTE AUTO4.9N[facility] Healthcare Neutrophils/100 WBC (Bld)70.5 %43.0 - 75.0 %NOMS HealthcarePlatelet mean volume (Bld) [Entitic vol]12 fL9.5 - 13.5 fLNOMS HealthcareTBH EO #0NOMS HealthcareTBH [id number] HealthcareTBH RBC4.07LowNOMS HealthcareTBH [id number] Healthcare CLINISYNCNOMS HealthcareUS OB BPP W NON-STRESSon 68-95-0029[place] [address] Ultrasound Report Signed Patient: PROSPER MCCLENDON MR#: [id number] : 1985 Acct:[id number] Age/Sex: 39 / F ADM Date: 05/31/24 Loc: [facility] 250-[address]: Liza Meraz Ordering Physician: Liza Meraz Date of Service: 05/31/24 Procedure(s): US OB BPP w non-stress Accession Number(s): [id number] cc: Liza Meraz; KIMBERLYN XIE [place] [address] Patient Name: PROSPER MCCLENDON MRN: [id number] date: 1985 Sex: F Assigned Patient Location: [facility] Current Patient Location: [facility] Accession/Order Number: [id number] Exam Date: 05/31/2024 13:15 Report Date: 05/31/2024 13:55 At the request of: LIZA MERAZ Procedure: US OB BPP w non-stress EXAMINATION: [...] profile score: 8 Electronically authenticated by: NATO AVELAR Date: 05/31/2024 13:55 Dictated By: Nato Avelar M.D. Signed By: 05/31/24Lalito DD/ 54 TD/TT: Production Line Worker:TAYAadiollisa, RadiologistMD - 05/31/2024 [place] [address] Ultrasound Report Signed Patient: PROSPER MCCLENDON MR#: [id number] : 1985 Acct:[id number] Age/Sex: 39 / F ADM Date: 05/31/24 Loc: [facility] 250-[address]: Liza Meraz Ordering Physician: Liza Meraz Date of Service: 05/31/24 Procedure(s): US OB BPP w non-stress Accession Number(s): [id number] cc: Liza Meraz; KIMBERLYN XIE [place] [address] Patient Name: PROSPER MCCLENDON MRN: [id number] date: 1985 Sex: F Assigned Patient Location: [facility] Current Patient Location: [facility] Accession/Order Number: [id number] Exam Date: 05/31/2024 13:15 Report Date: 05/31/2024 13:55 At the request of: LIZA MERAZ Procedure: US OB BPP w non-stress EXAMINATION: [...] profile score: 8 Electronically authenticated by: NATO AVELAR Date: 05/31/2024 13:55 Dictated By: Nato Avelar M.D. Signed By: 05/31/24 Pablito DD/ 54 TD/TT: Production Line Worker: MARIA DOLORES HealthcareRadiology Study observation (narrative)NOMDomingo HealthcareUS OB BPP W NON-STRESSOrdered By: Radiologist Radiology on 75-46-2598QYSF Healthcare Work Phone: US OB BPP W NON-STRESSon [id number] [address] Ultrasound Report Signed Patient: PROSPER MCCLENDON MR#: [id number] : 1985 Acct:[id number] Age/Sex: 39 / F ADM Date: Loc: [facility] 250-[address]: Johnathan Recinos D.O. Ordering Physician: Johnathan Recinos D.O. Date of Service: 05/29/24 Procedure(s): US OB BPP w non-stress Accession Number(s): [id number] cc: KIMBERLYN XIE ; Johnathan Recinos D.O. [place] [address] Patient Name: PROSPER MCCLENDON MRN: [id number] date: 1985 Sex: F Assigned Patient Location: [facility] Current Patient Location: Accession/Order Number: [id number] Exam Date: 05/29/2024 15:40 Report Date: 05/30/2024 [...] profile score: 8 Electronically authenticated by: NATO AVELAR Date: 05/30/2024 06:19 Dictated By: Nato Avelar M.D. Signed By: 05/30/24621 DD/ 8 TD/TT: Production Line Worker:TAYAadiology, Radiologist, - 05/30/2024 [place] [address] Ultrasound Report Signed Patient: PROSPER MCCLENDON MR#: [id number] : 1985 Acct:[id number] Age/Sex: 39 / F ADM Date: Loc: [facility] 250-[address]: Johnathan Recinos D.O. Ordering Physician: Johnathan Recinos D.O. Date of Service: 05/29/24 Procedure(s): US OB BPP w non-stress Accession Number(s): [id number] cc: KIMBERLYN XIE ; Johnathan Recinos D.O. [place] [address] Patient Name: PROSPER MCCLENDON MRN: [id number] date: 1985 Sex: F Assigned Patient Location: [facility] Current Patient Location: Accession/Order Number: [id number] Exam Date: 05/29/2024 15:40 Report Date: 05/30/2024 [...] profile score: 8 Electronically authenticated by: NATO AVELAR Date: 05/30/2024 06:19 Dictated By: Nato Avelar M.D. Signed By: 05/30/24621 DD/ 8 TD/TT: Production Line Worker: [facility] HealthcareRadiology Study observation (narrative)[facility] CenterUS OB BPP W NON-STRESSOrdered By: Radiologist Radiology on 21-66-9728HPWFUniversity Health Truman Medical Center Work Phone: all CBC WITH AUTO DIFFon 93-40-1742YFVBYZPDN ABSOLUTE [id number] HealthcareBasophils/100 WBC (Bld)0.3 %0.2 - 2.0 %[facility] Eosinophils/100 WBC (Bld)0.5 %Low0.9 - 7.0 %[facility] Medical CenterErythrocyte distribution width (RBC) [Ratio]13.2 %11.0 - 15.0 %[facility] Medical CenterHematocrit (Bld) [Volume fraction]33.4 %Low36.0 - 48.0 %[facility] CenterHemoglobin (Bld) [Mass/Vol]10.9 g/dLLow12.0 - 16.0 g/dLUniversity Health Truman Medical CenterIMMATURE GRANULOCYTES ABS AUTO0.03NOCoxHealthImmature granulocytes/100 WBC (Bld)0.4 %0.0 - 0.5 %[facility] Medical CenterInterpretation and review of laboratory resultsAbnormalUniversity Health [facility] Medical Center LYMPHOCYTES ABSOLUTE AUTO1.5NOMS [facility] CenterLymphocytes/100 WBC (Bld)20.7 %20.5 - 60.0 %[facility]SmithvilleH (RBC) [Entitic mass]29.1 pg26.7 - 34.0 pgSaint Luke's North Hospital–SmithvilleHC (RBC) [Mass/Vol]32.6 g/dL29.9 - 35.2 g/dLUniversity Health Truman Medical CenterMCV (RBC) [Entitic vol]89.1 fL81.0 - 99.0 fLUniversity Health Truman Medical CenterMONOCYTES ABSOLUTE AUTO0.4NOMS HealthcareMonocytes/100 WBC (Bld)5.8 %1.7 - 12.0 %[facility] CenterNEUTROPHILS ABSOLUTE AUTO5.4NOMS HealthcareNeutrophils/100 WBC (Bld)72.3 %43.0 - 75.0 %[facility] Medical CenterPlatelet mean volume (Bld) [Entitic vol]11.2 fL9.5 - 13.5 fLUniversity Health Truman Medical CenterTBH EO #0NOMS [facility] CenterTBH [id number] HealthcareTBH RBC3.75LowNOMS HealthcareTBH WBC7.4NOMS HealthcareCLINISYNCNOMS HealthcareUrinalysis macro (dipstick) panel (U)on 28-64-4917Housndvnz, UANegativeNegative - 4(70) +++ mg/dL NOMS HealthcareBlood, UANegativeNegative - 50 Slick/mcLNOMS HealthcareClarity, UA ClearNOMS HealthcareColor, UAYellowNOMS HealthcareGlucose, UANegativeNegative - 1999(110) ++++ mg/dLNOMS HealthcareInterpretation and review of laboratory resultsNormalNOMS HealthcareKetones, UANegativeNegative - 160(16) ++++ mg/dLNOMS HealthcareLeukocytes, UANegativeNegative - 500+++ Mira/mcLNOMS HealthcareNitrite, UANegativeNegative - PositiveNOMS HealthcarepH, UA65 - 9NOMS HealthcareProtein, UANegativeNegative - 1999(20) ++++ mg/dLNOMS HealthcareSpec Grav, UA1.0151 - 1.03NOMS HealthcareUrobilinogen, UA0.20.2 - 12 mg/dLNOMS HealthcareNOMS HealthcareUrinalysis macro (dipstick) panel (U)on 03-62-8181Vxkenzvcb, UA NegativeNegative - 4(70) +++ mg/dLNOMS HealthcareBlood, UANegativeNegative - 50 Slick/mcLNOMS HealthcareClarity, UAClearNOMS HealthcareColor, UAYellowNOMS HealthcareGlucose, UANegativeNegative - 1999(110) ++++ mg/dLNOMS Healthcare Interpretation and review of laboratory resultsAbnormalNOMS HealthcareKetones, UANegativeNegative - 160(16) ++++ mg/dLNOMS HealthcareLeukocytes, UATrace Negative - 500+++ Mira/mcLNOMS HealthcareNitrite, UANegativeNegative - Positive NOMS HealthcarepH, UA65 - 9NOMS HealthcareProtein, UATraceNegative - 1999(20) ++++ mg/dLNOMS HealthcareSpec Grav, UA1.0151 - 1.03NOMS HealthcareUrobilinogen, UA0.20.2 - 12 mg/dLNOMS HealthcareNOMS HealthcareUrinalysis macro (dipstick) panel (U)on 67-35-7148Mfhderxcb, UANegativeNegative - 4(70) +++ mg/dLNOMS HealthcareBlood, UAPositiveNegative - 50 Slick/mcLNOMS HealthcareComment on above: traceClarity, UAClearNOMS HealthcareColor, UAYellowNOMS HealthcareGlucose, UA NegativeNegative - 2000(110) ++++ mg/dLNOMS HealthcareInterpretation and review of laboratory resultsAbnormalNOMS HealthcareKetones, UANegativeNegative - 160(16) ++++ mg/dLNOMS HealthcareLeukocytes, UANegativeNegative - 500+++ Mira/mcL NOMS HealthcareNitrite, UANegativeNegative - PositiveNOMS HealthcarepH, UA6.55 - 9NOMS HealthcareProtein, UANegativeNegative - 2000(20) ++++ mg/dLNOMS Healthcare Spec Grav, UA1.011 - 1.03NOMS HealthcareUrobilinogen, UA0.20.2 - 12 mg/dLNOMS HealthcareNOMS HealthcareUS OB FOLLOW UP TRANSABDOMINAL APPROACHon 53-12-8746JY OB FOLLOW UP TRANSABDOMINAL APPROACHTITLE OF EXAM: OB Ultrasound: REASON FOR EXAM: GDM. COMPARISON: None. TECHNIQUE: Grayscale and M-mode Doppler imaging is performed. FINDINGS: heart rate: 129 bpm ANGEL: 21.3 cm (8.1-24.8) BPD: 8.3 cm HC: 31.3 cm AC: 31.5 cm FL: 6.6 cm GA for sonogram: 34.1 wk (31.6-36.5) [place] LISA: 07/18/2024 Weight Estimate: Weight: 2513 gm / 5 lbs, 8 oz (2191-1657 gm) [place] Normal: 2393 gm (2202-2975 gm) [place] Wt%: 65% for 34.1 wks Limited for: Growth Presentation: Cephalic Lie: Longitudinal Amniotic Fluid: 21.3 cm Largest Fluid Pocket: 6.8 cm Heart Rate: 129 bpm The following structures are visualized in a limited fashion: Fluid-filled stomach, beating heart. Intracranial contents. IMPRESSION: Single live intrauterine gestation in cephalic position with sonographic EGA 34.1 weeks. Dictated and transcribed 05/09/24lyssa This report has been electronically signed and approved by the interpreting radiologist.NormalNot AvailableComment on above:Order Comment: US OB SCAN FOR GROWTH Estimated Date of Delivery: 06/25/24 Gestational Age as of 03/21/2024: 15f9bESB UA (CLEAN/CATCH) QUALITY AUDITOR/MICRO IF IND.on 49-28-7837EIQOHBDNI URINENegativeNEGATIVENOMS HealthcareBLOOD URINENegative NEGATIVENOMS HealthcareClarity (U)CLEARCLEARNOMS HealthcareColor (U)LT. YELLOW YELLOWNOMS HealthcareGLUCOSE URINE UANegativeNEGATIVE mg/dLNOMS Healthcare Ketones Ql (U)NegativeNEGATIVE mg/dLNOMS HealthcareLeukocyte esterase Test strip Ql (U)NegativeNEGATIVENOMS HealthcareNITRITE URINENegativeNEGATIVENOMS HealthcarepH (U)6.0 [pH]5.0 - 9.0NOMS HealthcarePROTEIN URINENegativeNEG/TRACE mg/dLNOMS HealthcareSPECIFIC GRAVITY URINE1.0201.005 - 1.025NOMS HealthcareURINE MICROSCOPIC INDICATEDNONOMS HealthcareUROBILINOGEN URINE0.2 EU/dL0.2 - 1.0 EU/dLNOMS HealthcareCLINISYNCNOMS HealthcareUrine Cultureon 53-70-7760Dfvnnwgo identified Cx Nom (U)No Growth 2 Days PERFORMED BY: [place] [address] PATHOLOGIST TOWEL HEMMER SYD SHEFFIELD M.D.NormalThe Critical Access Hospital Physician GroupComment on above: Performed By: #### CUU #### [place] [address] USARECURRENT VAGINITIS (HTRX)on 19-76-7157JXBXRUBLT VAGINAE0 NOMS HealthcareATOPOBIUM VAGINAENot detectedNOMS HealthcareBVAB 2,3 (BACTERIAL VAGINOSIS ASSOCIATED BACTERIA 2, 3); MOBILUNCUS TUM4VOLY HealthcareBVAB 2,3 (BACTERIAL VAGINOSIS ASSOCIATED BACTERIA 2, 3); MOBILUNCUS SPPNot detectedNOMS HealthcareCANDIDA ALBICANS, PARAPSILOSIS, OZBSZNNKZT3GBUF HealthcareCANDIDA ALBICANS, PARAPSILOSIS, TROPICALISNot detectedNOMS HealthcareCANDIDA GLABRATA0 NOMS HealthcareCANDIDA GLABRATANot detectedNOMS HealthcareCANDIDA XQKMWQ3NXFO HealthcareCANDIDA KRUSEINot detectedNOMS HealthcareCHLAMYDIA DRMNGCOPIXR0UIUF HealthcareCHLAMYDIA TRACHOMATISNot detectedNOMS HealthcareGARDNERELLA VAGINALIS0 NOMS HealthcareGARDNERELLA VAGINALISNot detectedNOMS HealthcareMEGASPHAERA (TYPES 1, 2)0NOMS HealthcareMEGASPHAERA (TYPES 1, 2)Not detectedNOMS Healthcare MYCOPLASMA FJAEAWWATL1QMOM HealthcareMYCOPLASMA GENITALIUMNot detectedNOMS HealthcareNEISSERIA NCFGCSYPURC2CODO HealthcareNEISSERIA GONORRHOEAENot detected NOMS HealthcareTRICHOMONAS XPRRCNMKM9QTPH HealthcareTRICHOMONAS VAGINALISNot detectedNOMS HealthcareNOMS HealthcareUrinalysis macro (dipstick) panel (U)on 97-78-1923Chbruzkqw, UANegativeNegative - 4(70) +++ mg/dLNOMS HealthcareBlood, UANegativeNegative - 50 Slick/mcLNOMA HealthcareClarity, UACloudyNOMS Healthcare Color, UAYellowNOMS HealthcareGlucose, UA1+Negative - 1999(110) ++++ mg/dLNOMA HealthcareComment on above:100mg/dLInterpretation and review of laboratory resultsAbnormalNOMS HealthcareKetones, UANegativeNegative - 160(16) ++++ mg/dL NOMS HealthcareLeukocytes, UATraceNegative - 500+++ Mira/mcLNOMA Healthcare Nitrite, UANegativeNegative - PositiveNOMS HealthcarepH, UA65 - 9NOMA Healthcare Protein, UANegativeNegative - 2000(20) ++++ mg/dLNOMA HealthcareSpec Grav, UA 1.011 - 1.03NOMS HealthcareUrobilinogen, UA0.20.2 - 12 mg/dLNOMS HealthcareNOMS HealthcareALL CBC WITH AUTO DIFFon 11-31-7010NQAEMKKKH ABSOLUTE EOFG6YZXC HealthcareBasophils/100 WBC (Bld)0.1 %Low0.2 - 2.0 %[facility] Healthcare Eosinophils/100 WBC (Bld)0.5 %Low0.9 - 7.0 %NOMS HealthcareErythrocyte distribution width (RBC) [Ratio]13.9 %11.0 - 15.0 %NOMS HealthcareHematocrit (Bld) [Volume fraction]35.2 %Low36.0 - 48.0 %[facility] CenterHemoglobin (Bld) [Mass/Vol]11.5 g/dLLow12.0 - 16.0 g/dLUniversity Health Truman Medical CenterIMMATURE GRANULOCYTES ABS AUTO0.05HighNOMA HealthcareImmature granulocytes/100 WBC (Bld)0.6 %High0.0 - 0.5 %[facility] HealthcareInterpretation and review of laboratory resultsAbnormalNOMA HealthcareLYMPHOCYTES ABSOLUTE AUTO1.9NOMS HealthcareLymphocytes/100 WBC (Bld) 22.9 %20.5 - 60.0 %[facility]villeH (RBC) [Entitic mass]30.5 pg26.7 - 34.0 pg [facility]villeHC (RBC) [Mass/Vol]32.7 g/dL29.9 - 35.2 g/dLSaint Luke's North Hospital–SmithvilleV (RBC) [Entitic vol]93.4 fL81.0 - 99.0 fLUniversity Health Truman Medical CenterMONOCYTES ABSOLUTE AUTO 0.3NOMS HealthcareMonocytes/100 WBC (Bld)3.3 %1.7 - 12.0 %[facility] NEUTROPHILS ABSOLUTE AUTO6.1NOMS HealthcareNeutrophils/100 WBC (Bld)72.6 %43.0 - 75.0 %[facility] Medical CenterPlatelet mean volume (Bld) [Entitic vol]10.5 fL9.5 - 13.5 fLUniversity Health Truman Medical CenterTBH EO #0NOMS [facility] CenterTBH [id number] Baptist Hospital-Sullivan RBC3.77Low [facility] WBC8.4NOMA HealthcareCLINISYNCNELKVIEW GENERAL [facility]PITAL [facility] HealthcareUrinalysis macro (dipstick) panel (U)on 33-22-9380Dwqodbuyh, UANegativeNegative - 4(70) +++ mg/dL NOM HealthcareBlood, UANegativeNegative - 50 Slick/mcLNOMS HealthcareClarity, UA CloudyNOMS HealthcareColor, UAYellowNOMS HealthcareGlucose, UAPositiveNegative - 2000(110) ++++ mg/dLRIVERTON HOSPITAL HealthcareComment on above:500 mgInterpretation and review of laboratory resultsAbnormalRIVERTON HOSPITAL HealthcareKetones, UANegativeNegative - 160(16) ++++ mg/dLNOMS HealthcareLeukocytes, UANegativeNegative - 500+++ Mira/mcL NOMS HealthcareNitrite, UANegativeNegative - PositiveNOMS HealthcarepH, UA6.55 - 9NOMS HealthcareProtein, UANegativeNegative - 2000(20) ++++ mg/dLNOMS Healthcare Spec Grav, UA1.0251 - 1.03NOMS HealthcareUrobilinogen, UA0.20.2 - 12 mg/dLNOMS HealthcareNOMS HealthcareUrinalysis macro (dipstick) panel (U)on 03-11-2024 Bilirubin, UANegativeNegative - 4(70) +++ mg/dLNOMS HealthcareBlood, UAPositive Negative - 50 Slick/mcLNOMS HealthcareComment on above:largeClarity, UAClearNOMS HealthcareColor, UAStrawNOMS HealthcareGlucose, UANegativeNegative - 2000(110) ++++ mg/dLNOMS HealthcareInterpretation and review of laboratory resultsAbnormal NOMS HealthcareKetones, UANegativeNegative - 160(16) ++++ mg/dLNOMS Healthcare Leukocytes, UANegativeNegative - 500+++ Mira/mcLNOMS HealthcareNitrite, UA NegativeNegative - PositiveNOMS HealthcarepH, UA65 - 9NOMS HealthcareProtein, UA NegativeNegative - 2000(20) ++++ mg/dLNOMS HealthcareSpec Grav, UA1.021 - 1.03 NOMS HealthcareUrobilinogen, UA0.20.2 - 12 mg/dLNOMS HealthcareNOMS Healthcare TBH UA (CLEAN/CATCH) QUALITY AUDITOR/MICRO IF IND.on 30-89-9983JNWRELEWC URINECOLOR INTERFERENCEAbnormalNEGATIVENOMS HealthcareBLOOD URINECOLOR INTERFERENCEAbnormal NEGATIVENOMS HealthcareClarity (U)CLEARCLEARNOMS HealthcareColor (U)DK. RED YELLOWNOMS HealthcareGLUCOSE URINE UACOLOR INTERFERENCEAbnormalNEGATIVE mg/dL NOMS HealthcareInterpretation and review of laboratory resultsAbnormalNOMS HealthcareKetones Ql (U)COLOR INTERFERENCEAbnormalNEGATIVE mg/dLNOMS Healthcare Leukocyte esterase Test strip Ql (U)COLOR INTERFERENCEAbnormalNEGATIVENOMS HealthcareNITRITE URINECOLOR INTERFERENCEAbnormalNEGATIVENOMA HealthcarePH URINE COLOR INTERFERENCEAbnormal5.0 - 9.0NOMA HealthcarePROTEIN URINECOLOR INTERFERENCEAbnormalNEG/TRACE mg/dLNOMA HealthcareSPECIFIC GRAVITY URINE1.020 1.005 - 1.025NOMA HealthcareURINE MICROSCOPIC INDICATEDYESNOMA Healthcare UROBILINOGEN URINECOLOR INTERFERENCEAbnormal0.2 - 1.0 EU/dLNOMA Healthcare CLINISYNCNOMA HealthcareUrinalysis macro (dipstick) panel (U)on 03-06-2024 Bilirubin, UAPositiveNegative - 4(70) +++ mg/dLNOMS HealthcareBlood, UAPositive Negative - 50 Slick/mcLNOMS HealthcareComment on above:largeClarity, UAClearNOMS HealthcareColor, UADark AmberNOMA HealthcareGlucose, UANegativeNegative - 2000(110) ++++ mg/dLNOMS HealthcareInterpretation and review of laboratory resultsAbnormalRIVERTON HOSPITAL HealthcareKetones, UANegativeNegative - 160(16) ++++ mg/dL NOMS HealthcareLeukocytes, UATraceNegative - 500+++ Mira/mcLRIVERTON HOSPITAL Healthcare Nitrite, UAPositiveNegative - PositiveNOMA HealthcarepH, UA65 - 9NOMA Healthcare Protein, UAPositiveNegative - 2000(20) ++++ mg/dLNOMA HealthcareComment on above:100Spec Grav, UA1.021 - 1.03NOMA HealthcareUrobilinogen, UA1.00.2 - 12 mg/dLNOCoxHealthNOMA HealthcareUrinalysis macro (dipstick) panel (U)on 74-98-5120Acrxzitag, UANegativeNegative - 4(70) +++ mg/dLNOMS HealthcareBlood, UANegativeNegative - 50 Slick/mcLNOMA HealthcareClarity, UAClearNOMA Healthcare Color, UAYellowNOMS HealthcareGlucose, UANegativeNegative - 2000(110) ++++ mg/dL NOMS HealthcareInterpretation and review of laboratory resultsAbnormalNOMA HealthcareKetones, UANegativeNegative - 160(16) ++++ mg/dLNOMA Healthcare Leukocytes, UATraceNegative - 500+++ Mira/mcLNOMA HealthcareNitrite, UANegative Negative - PositiveNOMS HealthcarepH, UA5.55 - 9NOMA HealthcareProtein, UA NegativeNegative - 2000(20) ++++ mg/dLNOMA HealthcareSpec Grav, UA1.011 - 1.03 NOMS HealthcareUrobilinogen, UA0.20.2 - 12 mg/dLNOMayo Clinic Health System– Arcadia CBC AND AUTO DIFFon 19-41-2233EEZHCGHB BASOPHIL0.0 X10E9/LNormal0.0-0.2Pro[facility] Luther[facility] HospitalComment on above:Performed By: #### 23321-5, CMP, CBCA #### [facility] ([id number]) [address], [address] [place], [place] [address]PNPOJRKF NEUTROPHIL5.4 X10E9/LNormal1.5-6.6ProAvita Health System Galion HospitalComment on above:Performed By: #### 51607-1, CMP, CBCA #### [facility] ([id number]) [address], [address] [place], [place] [address]Xkwjobhgs/100 WBC (Bld)0.2 %[facility] Comment on above:Performed By: #### 54539-5, CMP, CBCA #### [facility] ([id number]) [address], [address] [place], [place] [address]Eelzpnfzjko (Bld) [#/Vol]0.1 10*3/uLNormal0.0-0.4ProAvita Health System Galion HospitalComment on above:Performed By: #### 87504-4, CMP, CBCA #### [facility] ([id number]) [address], [address] [place], [place] [address]Wegdzrhyfbs/100 WBC (Bld)0.9 %NormalSt. Francis Hospital Comment on above:Performed By: #### 31019-6, CMP, CBCA #### [facility] ([id number]) [address], [address] [place] [address]Lwqotzdpyfi distribution width (RBC) [Ratio]14.3 %Normal 11.5-15.0ProUniversity Hospitals Beachwood [facility] Center HospitalComment on above:Performed By: #### 40993-2, CMP, CBCA #### [facility] ([id number]) [address], [facility] [address] [place] [address]Ejuyujehaw (Bld) [Volume fraction]30.3 %Gnc20-78OoxIplauu Mesa HospitalComment on above:Performed By: #### 57553-8, CMP, CBCA #### [facility] ([id number]) [address], [facility] [address] [place], [place] [address]Dpjpaijfmz (Bld) [Mass/Vol]10.3 g/dLLow11.7-15.5ProMedMercy Health [facility] Hospital HospitalComment on above:Performed By: #### 32326-0, CMP, CBCA #### [facility] ([id number]) [address] [address] [place], [place] [address]Pdetxgmrsch (Bld) [#/Vol]1.7 10*3/uLNormal1.0-3.5PBluffton Hospital HospitalComment on above:Performed By: #### 83169-7, CMP, CBCA #### [facility] ([id number]) [address], [facility] [address] [place], [place] [address]Ambaclqhynn/100 WBC (Bld)22.0 %NormalProUniversity Hospitals [facility] Comment on above:Performed By: #### 08393-8, CMP, CBCA #### [facility] ([id number]) [address] [address] [place], [place] [address]PVH (RBC) [Entitic mass]31.3 aaKsvemq68-29FeqFormha [place] HospitalComment on above:Performed By: #### 08683-4, CMP, CBCA #### [facility] ([id number]) [address], [address] [place] [address]EJUK (RBC) [Mass/Vol]34.0 g/wJHuslqh44-89JvqUnhizx Mesa HospitalComment on above:Performed By: #### 21669-9, CMP, CBCA #### [facility] ([id number]) [address], [address] [place] [address]DXJ (RBC) [Entitic vol]92 dDPdjqtw86-078LofMdpisl Mesa HospitalComment on above:Performed By: #### 13730-4, CMP, CBCA #### [facility] ([id number]) [address], [address] [place], [place] [address]Gohwzavmm (Bld) [#/Vol]0.5 10*3/uLNormal0-0.9ProOhiohealth Doctors Hospitalca Mesa HospitalComment on above:Performed By: #### 54841-5, CMP, CBCA #### [facility] ([id number]) [address], [address] [place], [place] [address]Igstfkvtb/100 WBC (Bld)7.0 %NormalSt. Francis Hospital Comment on above:Performed By: #### 24863-2, CMP, CBCA #### [facility] ([id number]) [address], [address] [place], [place] [address]Mxqkfktaxsv/100 WBC (Bld)69.9 %NormalSt. Francis Hospital Comment on above:Performed By: #### 84259-0, CMP, CBCA #### [facility] ([id number]) [address], [address] [place], [place] [address]Egyflznk mean volume (Bld) [Entitic vol]8.8 fLNormal7-12 [facility] HospitalComment on above:Performed By: #### 95063-4, CMP, CBCA #### [facility] ([id number]) [address], [address] [facility] [place] [place] [address]Nifstzksj (Bld) [#/Vol]259 10*3/dMAbkman873-708MoxUjjvro [facility]ñoz HospitalComment on above:Performed By: #### 67510-5, CMP, CBCA #### [facility] ([id number]) [address], [address] [place], [place] [address]QWV COUNT3.29 X10E12/LLow3.80-5.20[facility] Comment on above:Performed By: #### 53393-3, CMP, CBCA #### [facility] ([id number]) [address], [address] [place], [place] [address]YJA (Bld) [#/Vol]7.7 10*3/uLNormal4.0-11.0[facility] HospitalComment on above:Performed By: #### 17965-8, CMP, CBCA #### [facility] ([id number]) [address], [address] [place] [address]EMKGWIUBGOFWK METABOLIC PANELon 39-80-4902Fwzeayr [Mass/Vol]2.9 g/dLLow3.2-5.3[facility]ñoz HospitalComment on above:Performed By: #### 89431-3, CMP, CBCA #### [facility] ([id number]) [address], [address] [place] [address]IFM [Catalytic activity/Vol]118 U/CVqitqk44-824NlsBkjzop [facility]ñoz HospitalComment on above:Performed By: #### 43658-6, CMP, CBCA #### [facility] ([id number]) [address], [address] [place], [place] [address]CUX [Catalytic activity/Vol]6 U/LNormal0-31[facility] HospitalComment on above:Performed By: #### 31582-8, CMP, CBCA #### [facility] ([id number]) [address], [address] [place], [place] [address]Orqsx gap [Moles/Vol]10 mmol/LNormal5-15[facility] HospitalComment on above:Performed By: #### 26274-4, CMP, CBCA #### [facility] ([id number]) [address], [address] [place], [place] [address]CRX [Catalytic activity/Vol]9 U/LNormal0-41[facility] HospitalComment on above:Performed By: #### 33853-0, CMP, CBCA #### [facility] ([id number]) [address], [address] [place], [place] [address]Izolzdgzj [Mass/Vol]0.4 mg/dLNormal0.3-1.2[facility]ñoz HospitalComment on above:Performed By: #### 43025-7, CMP, CBCA #### [facility] ([id number]) [address], [address] [place], [place] [address]Coeneqa [Mass/Vol]8.5 mg/dLNormal8.5-10.5[facility] HospitalComment on above:Performed By: #### 07864-2, CMP, CBCA #### [facility] ([id number]) [address], [address] [place], [place] [address]Brdtzasb [Moles/Vol]105 mmol/ZRcfwac28-279CfaGyasls [facility]ñoz HospitalComment on above:Performed By: #### 04581-2, CMP, CBCA #### [facility] ([id number]) [address], [address] [place], [place] [address]HY9 [Moles/Vol]22 mmol/PIiqosj98-48UijTkpnzj [facility] Comment on above:Performed By: #### 19552-1, CMP, CBCA #### [facility] ([id number]) [address], [address] [place], [place] [address]Kkgswwdrpx [Mass/Vol]0.45 mg/dLNormal0.40-1.00ProAvita Health System Galion HospitalComment on above:Result Comment: METHOD TRACEABLE TO IDMS STANDARD Performed By: #### 91710-3IZAIAH CBCA #### [facility] ([id number]) [address], [address] [place], [place] [address]oJXK (CKD-EPI) NON-RACE DEPENDENT>90Normal>59ProUniversity [facility] HospitalComment on above:Result Comment: Reported eGFR is based on the CKD-EPI 2020 equation that does not use a race coefficient.Performed By: #### 70796-1, IZAIAH CBCA #### [facility] ([id number]) [address], [address] [place], [place] [address]Pbhygfo [Mass/Vol]84 mg/gXVlidfd05-32LkoDccqqu [facility] Comment on above:Performed By: #### 33077-6, IZAIAH, CBCA #### [facility] ([id number]) [address], [address] [place], [place] [address]Jsbegobck [Moles/Vol]3.7 mmol/LNormal3.5-5.0ProAvita Health System [facility] HospitalComment on above:Performed By: #### 03541-6, IZAIAH, CBCA #### [facility] ([id number]) [address], [address] [place], [place] [address]Srigysc [Mass/Vol]6.0 g/dLNormal6.0-8.0[facility] Comment on above:Performed By: #### 92920-0, IZAIAH, CBCA #### [facility] ([id number]) [address], [address] [place], [place] [address]Ceuyrh [Moles/Vol]137 mmol/XGxadho640-969YduBldilm [facility] HospitalComment on above:Performed By: #### 45864-7, IZAIAH, CBCA #### [facility] ([id number]) [address], [address] [place], [place] [address]Diwk nitrogen [Mass/Vol]5 mg/dLNormal5-23ProAv[facility] HospitalComment on above:Performed By: #### 23916-0, CMP, CBCA #### [facility] ([id number]) [address], [address] [place], [place] [address]DNYAQJHKGmi 64-95-7852Emcmtqttc [Mass/Vol]1.6 mg/dLLow1.8-2.6 [facility] HospitalComment on above:Performed By: #### 71594-5, CMP, CBCA #### [facility] ([id number]) [address], [address] [place], [place] [address]KTTPYREYTEwh 11-92-1797Hkdjplaqt [Mass/Vol]4.5 mg/dLNormal 2.4-4.9ProAv[facility] HospitalComment on above:Performed By: #### 31138-5, CMP, CBCA #### [facility] ([id number]) [address], [address] [place], [place] [address]WI RETROPERITONEAL LIMITEDon 31-45-6948NQ RETROPERITONEAL LIMITEDUS RETROPERITONEAL LIMITED HISTORY: A 38-year-old female with the history of the pyelonephritis. Patient is on the antibiotics. Hydronephrosis is suspected. TECHNIQUE: Multiple real-time images of the kidneys are obtained. Color Doppler study is performed. COMPARISON: No relevant prior studies are available for comparison. FINDINGS: Both kidneys are normal in position and configuration. Right kidney measures 11.9 x 4.7 x5.5 Cms. Right renal cortical thickness measures 0.6 [...] by Vitaly Andrade MD on 02/09/2024 10:14 AMNormalProMedica Mesa HospitalBLOOD CULTUREon 62-34-1888Clyrddeh identified Aer cx Nom (Bld)SPECIMEN NOTES SUBOPTIMAL VOLUME OF BLOOD COLLECTED, RESULTS MAY BE AFFECTED. CULTURE RESULTS NO GROWTH 5 DAYSNormalProOhiohealth Doctors Hospitalca Mesa HospitalComment on above:Performed By: #### 64863-3, CMP, CBCA #### [facility] ([id number]) [address], [address] [place], [place] [address]Dqrpgiom identified Aer cx Nom (Bld)SPECIMEN NOTES SUBOPTIMAL VOLUME OF BLOOD COLLECTED, RESULTS MAY BE AFFECTED. CULTURE RESULTS NO GROWTH 5 DAYSNormalProUniversity [facility] HospitalComment on above:Performed By: #### 21468-3 #### [facility] ([id number]) [address], [address] [place], [place] [address]SDE AND AUTO DIFFon 34-85-6237CNENAOTL BASOPHIL0.0 X10E9/LNormal 0.0-0.2[facility] HospitalComment on above:Performed By: #### 68097-8, CMP, CBCA #### [facility] ([id number]) [address], [address] [place], [place] [address]TSBUJMZM NEUTROPHIL9.5 X10E9/LHigh1.5-6.6ProAv[facility] HospitalComment on above:Performed By: #### 40913-4, CMP, CBCA #### [facility] ([id number]) [address], [address] [place], [place] [address]Kiezdlfkb/100 WBC (Bld)0.0 %NormalProUniversity Hospitals [facility] Hospital Comment on above:Performed By: #### 51852-5, CMP, CBCA #### [facility] ([id number]) [address], [address] [place], [place] [address]Lxnjwywlkld (Bld) [#/Vol]0.0 10*3/uLNormal0.0-0.4ProOhiohealth Doctors Hospitalca Mesa HospitalComment on above:Performed By: #### 64690-6, CMP, CBCA #### [facility] ([id number]) [address], [address] [place], [place] [address]Efgypdbfhzm/100 WBC (Bld)0.0 %NormalProUniversity [facility]als [facility] Hospital Comment on above:Performed By: #### 21282-2, CMP, CBCA #### [facility] ([id number]) [address], [address] [place], [place] [address]Ioeeegpyvrn distribution width (RBC) [Ratio]14.5 %Normal 11.5-15.0ProOhiohealth Doctors Hospitalca Mesa HospitalComment on above:Performed By: #### 48677-9, CMP, CBCA #### [facility] ([id number]) [address], [address] [place], [place] [address]Jhilnovumw (Bld) [Volume fraction]31.3 %Mrc50-35ZeeVfknpd [place] HospitalComment on above:Performed By: #### 28109-3, CMP, CBCA #### [facility] ([id number]) [address], [address] [place], [place] [address]Wuaywhtihi (Bld) [Mass/Vol]10.6 g/dLLow11.7-15.5PBluffton Hospital HospitalComment on above:Performed By: #### 32984-4, CMP, CBCA #### [facility] ([id number]) [address], [address] [place], [place] [address]Cwbvcprbnus (Bld) [#/Vol]1.1 10*3/uLNormal1.0-3.5PBluffton Hospital HospitalComment on above:Performed By: #### 77729-7, CMP, CBCA #### [facility] ([id number]) [address], [address] [place], [place] [address]Fmzwwymggwb/100 WBC (Bld)9.4 %NormalProOhiohealth Doctors Hospitalca [facility] Comment on above:Performed By: #### 61210-8, CMP, CBCA #### [facility] ([id number]) [address], [address] [place], [place] [address]TLC (RBC) [Entitic mass]30.8 owKzcwba17-48PcgHkuukp Mesa HospitalComment on above:Performed By: #### 02334-4, CMP, CBCA #### [facility] ([id number]) [address], [address] [place], [place] [address]XUED (RBC) [Mass/Vol]33.9 g/vODxgvfo37-07HefWzfdff Mesa HospitalComment on above:Performed By: #### 42273-8, CMP, CBCA #### [facility] ([id number]) [address], [address] [place], [place] [address]YLY (RBC) [Entitic vol]91 oCNgpawm35-535OtnYdzcjo [facility]a HospitalComment on above:Performed By: #### 68555-4, CMP, CBCA #### [facility] ([id number]) [address], [address] [place], [place] [address]Qavvtnjut (Bld) [#/Vol]0.9 10*3/uLNormal0-0.9[facility] HospitalComment on above:Performed By: #### 00189-7, CMP, CBCA #### [facility] ([id number]) [address], [address] [place], [place] [address]Destgjdqw/100 WBC (Bld)8.2 %NormalSt. Francis Hospital Comment on above:Performed By: #### 09632-0, CMP, CBCA #### [facility] ([id number]) [address], [address] [place], [place] [address]Rncnxukaxsi/100 WBC (Bld)82.4 %NormalSt. Francis Hospital Comment on above:Performed By: #### 44651-1, CMP, CBCA #### [facility] ([id number]) [address], [address] [place], [place] [address]Qkcdxxmd mean volume (Bld) [Entitic vol]8.5 fLNormal7-12 [facility] HospitalComment on above:Performed By: #### 59978-5, CMP, CBCA #### [facility] ([id number]) [address], [address] [place] [address]Shydecsyz (Bld) [#/Vol]246 10*3/hVGknyda150-073CpqFwrxdy [facility]ñoz HospitalComment on above:Performed By: #### 50419-9, CMP, CBCA #### [facility] ([id number]) [address], [address] [place] [address]MMN COUNT3.44 X10E12/LLow3.80-5.20Pro[facility] Hospital Comment on above:Performed By: #### 28205-0, CMP, CBCA #### [facility] ([id number]) [address], [address] [place], [place] [address]XYY (Bld) [#/Vol]11.5 10*3/uLHigh4.0-11.0[facility] HospitalComment on above:Performed By: #### 65442-0, CMP, CBCA #### [facility] ([id number]) [address], [address] [place], [place] [address]NMQHHSSPWFBUU METABOLIC PANELon 00-16-7899Utrqakx [Mass/Vol]3.1 g/dLLow3.2-5.3[facility] HospitalComment on above:Performed By: #### 81295-1, CMP, CBCA #### [facility] ([id number]) [address], [address] [place] [address]MDN [Catalytic activity/Vol]100 U/KVtpedo18-216CpiSpakdk [facility]ñoz HospitalComment on above:Performed By: #### 06599-9, CMP, CBCA #### [facility] ([id number]) [address], [address] [place], [place] [address]ENT [Catalytic activity/Vol]7 U/LNormal0-31[facility] HospitalComment on above:Performed By: #### 70629-2, CMP, CBCA #### [facility] ([id number]) [address], [address] [place], [place] [address]Phlus gap [Moles/Vol]12 mmol/LNormal5-15[facility] HospitalComment on above:Performed By: #### 24356-3, CMP, CBCA #### [facility] ([id number]) [address], [address] [place], [place] [address]JSH [Catalytic activity/Vol]8 U/LNormal0-41[facility] HospitalComment on above:Performed By: #### 69202-9, CMP, CBCA #### [facility] ([id number]) [address], [address] [place], [place] [address]Cxjxtydul [Mass/Vol]0.5 mg/dLNormal0.3-1.2ProMedMer[facility] HospitalComment on above:Performed By: #### 58768-1, CMP, CBCA #### [facility] ([id number]) [address], [address] [place], [place] [address]Kngmchm [Mass/Vol]8.3 mg/dLLow8.5-10.5ProMedMer[facility] Hospital Comment on above:Performed By: #### 75062-2, CMP, CBCA #### [facility] ([id number]) [address], [address] [place], [place] [address]Jxaxkgum [Moles/Vol]104 mmol/UKubhqt07-049JwyDjbmkt [facility] HospitalComment on above:Performed By: #### 83097-3, CMP, CBCA #### [facility] ([id number]) [address], [address] [place], [place] [address]UH3 [Moles/Vol]20 mmol/OBei46-98TvpGnuhzoSamaritan HospitalComment on above:Performed By: #### 93168-4, IZAIAH, CBCA #### [facility] ([id number]) [address], [address] [place], [place] [address]Cdmyyxljcy [Mass/Vol]0.53 mg/dLNormal0.40-1.00ProAv[facility] HospitalComment on above:Result Comment: METHOD TRACEABLE TO IDMS STANDARD Performed By: #### 15298-7, JOSEY BLISSA #### [facility] ([id number]) [address], [address] [place], [place] [address]vIET (CKD-EPI) NON-RACE DEPENDENT>90Normal>59Pro[facility] HospitalComment on above:Result Comment: Reported eGFR is based on the CKD-EPI 1 equation that does not use a race coefficient.Performed By: #### 48564-3, IZAIAH, CBCA #### [facility] ([id number]) [address] [address] [place], [place] [address]Godstff [Mass/Vol]115 mg/sAJrcn89-09MjfYliaxdAvita Health System [facility] Hospital Comment on above:Performed By: #### 51907-8, IZAIAH CBCA #### [facility] ([id number]) [address] [place], [place] [address]Xwihfirbj [Moles/Vol]3.6 mmol/LNormal3.5-5.0ProAvita Health [facility] HospitalComment on above:Performed By: #### 79574-3, IZAIAH, CBCA #### [facility] ([id number]) [address], [address] [place], [place] [address]Cjvpnql [Mass/Vol]6.1 g/dLNormal6.0-8.0[facility] Comment on above:Performed By: #### 35083-1, CMP, CBCA #### [facility] ([id number]) [address], [address] [place], [place] [address]Ugbkcg [Moles/Vol]136 mmol/EBftzrg812-275QfbJwrxur [facility] HospitalComment on above:Performed By: #### 44579-8, CMP, CBCA #### [facility] ([id number]) [address], [address] [place], [place] [address]Ixdn nitrogen [Mass/Vol]3 mg/dLLow5-23[facility] Comment on above:Performed By: #### 86559-8, CMP, CBCA #### [facility] ([id number]) [address], [address] [place], [place] [address]ZCEW SCREEN, URINEon 10-84-6821MZKUOOQCTBO/METHAMPNegativeNormal NEGProOhiohealth Doctors Hospitalca Mesa HospitalComment on above:Result Comment: AMPH/METH screening cut off = 1000 ng/mLPerformed By: #### DSU #### [facility] ([id number]) [address], [address] [place], [place] [address]TOSPSMVUGXBPWfpvklmlPwxmhgQVUKeeQkwbdq [facility] HospitalComment on above:Result Comment: Barbiturates screening cut off value = 200 ng/mLPerformed By: #### DSU #### [facility] ([id number]) [address], [address] [place], [place] [address]JMYWLKQARRLMSVQLkwipgskZdzywhGMROiqJizxzr [facility] HospitalComment on above:Result Comment: Benzodiazepines screening cut off value = 200 ng/mL Performed By: #### DSU #### [facility] ([id number]) [address], [address] [place], [place] [address]JSQPSVFLJXCVOktfuezhRqkioiZCVVycDamovm [facility] HospitalComment on above:Result Comment: Cannabinoids/THC screening cut off value = 50 ng/mL Performed By: #### DSU #### [facility] ([id number]) [address] [place] [address], [address] [place], [place] [address]TNNQHDI METABOLITENegativeNormalNEGSt. Francis Hospital Comment on above:Result Comment: Cocaine screening cut off value = 300 ng/mL Performed By: #### DSU #### [facility] ([id number]) [address] [place] [address], [address] [place], [place] [address]IJDYXHGOwudvafuAowgbwLWOLfrLxpxps [place] HospitalComment on above:Result Comment: Ecstasy screening cut off value = 500 ng/mL This report is intended for use in clinical monitoring or management of patients.Performed By: #### DSU #### [facility] ([id number]) [address] [place] [address], [address] [place], [place] [address]RKKJRQAOTSrrxlzmaChegkfOQPLenVaakeq [facility] HospitalComment on above:Result Comment: Methadone screening cut off value = 300 ng/mL.Performed By: #### DSU #### [facility] ([id number]) [address] [place] [address], [address] [place], [place] [address]FRMGWJASnukvqewBadmxyXGMQbzEctkhi [place] HospitalComment on above:Result Comment: Opiates screening cut off value = 300 ng/mL NOTE: This test is used for the detection of codeine, hydrocodone (>1000 ng/mL), morphine and hydromorphone (>900 ng/mL) in urine.Performed By: #### DSU #### [facility] ([id number]) [address] [place] [address], [address] [place], [place] [address]BNVZOIPSXYghjstnhOlavvvSXXAvxEkreve [place] HospitalComment on above:Result Comment: Oxycodone screening cut off value = 300 ng/mL NOTE: This test is used for the detection of oxycodone and oxymorphone in urine.Performed By: #### DSU #### [facility] ([id number]) [address] [address]DSYVEZNJFTXYPDlmrpozdObopzhQSTUtwTfghbe [place] HospitalComment on above:Result Comment: Phencyclidine screening cut off value = 25 ng/mL Performed By: #### DSU #### [facility] ([id number]) [address] [address]Eeauxuo Glucometer (BldC) [Mass/Vol]on 22-87-1327Urqjvzt [Mass/Vol]107 mg/uPPrtc76-21JunIwpagyAvita Health System Galion HospitalLactate (P melvin) [Moles/Vol] on 30-53-9875NNBCOHH W/REFLEX1.0 mmol/LNormal0.4-2.0[facility] Comment on above:Result Comment: Result did not trigger repeat Lactate, re-order if needed.Performed By: #### 38017-4, 25460-0 #### [facility] ([id number]) [address], [address] [address]JMPUTEK W/REFLEX0.8 mmol/LNormal0.4-2.0[facility] Comment on above:Result Comment: Result did not trigger repeat Lactate, re-order if needed.Performed By: #### 13521-4, CMP, CBCA #### [facility] ([id number]) [address] [address]Vltzrxvaixgso IA [Mass/Vol]on 14-75-2578EBLVMHTFKYOVT7.74 ng/mL High<0.05St. [facility] HospitalComment on above:Result Comment: NOTE <0.50 ng/mL - Low risk of severe sepsis and/or septic shock. <2.00 ng/mL - Recommend retesting within 6-24 hours. >2.00 ng/mL - High risk of sepsis and/or septic shock.Performed By: #### 62454- 0, 27755-6 #### [facility] ([id number]) [address] [address]KSQYDMQKSClk 72-55-8758Ieldlflpv Ql (U)NegativeNormalNEG [facility] HospitalComment on above:Performed By: #### UA #### [facility] ([id number]) [address], [address] [place], [place] [address]VXMQK/HGBSmallAbnormalNEGProMedica Mesa HospitalComment on above:Performed By: #### UA #### [facility] ([id number]) [address], [address] [place], [place] [address]Dtilz (U)YELLOWNormalYELLOWProMedica Mesa HospitalComment on above:Performed By: #### UA #### [facility] ([id number]) [address], [address] [place], [place] [address]Lexscbo Ql (U)NegativeNormalNEGProMedica Mesa HospitalComment on above:Performed By: #### UA #### [facility] ([id number]) [address], [address] [place], [place] [address]Bozxmvt Ql (U)20 mg/dLAbnormalNEGProMedica [facility] Hospital Comment on above:Performed By: #### UA #### [facility] ([id number]) [address], [address] [place], [place] [address]Lsqecpesb esterase Test strip Ql (U)NegativeNormalNEGProMedica Mesa HospitalComment on above:Performed By: #### UA #### [facility] ([id number]) [address], [address] [place], [place] [address]WTYCWGZTHVNNKWbrxgkbaVRXUSdlClmdmp [facility] HospitalComment on above:Performed By: #### UA #### [facility] ([id number]) [address], [address] [place], [place] [address]Cpvofou Ql (U)NegativeNormalNEGProMedica Mesa HospitalComment on above:Performed By: #### UA #### [facility] ([id number]) [address], [address] [place], [place] [address]cQ (U)8.0 [pH]Normal5.0-8.5ProMedica Muñoz HospitalComment on above:Performed By: #### UA #### [facility] ([id number]) [address] [facility], [address] [place], [place] [address]Unkshkb Ql (U)TraceAbnormalNEGProMedica Muñoz HospitalComment on above:Performed By: #### UA #### [facility] ([id number]) [address] [facility], [address] [place], [place] [address]X.B.CELLS16 /hpfHigh0-5ProMedica Muñoz HospitalComment on above:Performed By: #### UA #### [facility] ([id number]) [address] [facility], [address] [place], [place] [address]Ytrfwqmc gravity (U) [Rel density]1.433Yfszom3.003-1.035 ProMedica Muñoz HospitalComment on above:Performed By: #### UA #### [facility] ([id number]) [address] [facility], [address] [place], [place] [address]MSTZQDTH EPITHELIUM1 /hpfNormal0-5[facility] Comment on above:Performed By: #### UA #### [facility] ([id number]) [facility], [address] [place], [place] [address]WGDKQZGUSTYE EPITH<1Xeyq1CidYroewl Muñoz HospitalComment on above:Performed By: #### UA #### [facility] ([id number]) [address] [facility], [address] [place], [place] [address]XJQWBPJFTEYISBMwsrpnPWATIRgzGuxlnp Muñoz HospitalComment on above:Performed By: #### UA #### [facility] ([id number]) [facility], [address] [place], [place] [address]Dumeixtduqyl Qn (U)2 {Blanca'U}/dLHigh<1.1PRiverview Health InstituteComment on above:Performed By: #### UA #### [facility] ([id number]) [address], [address] [place], [place] [address]M.B.CELLS2 /hpfNormal0-5PRiverview Health InstituteComment on above:Performed By: #### UA #### [facility] ([id number]) [address], [address] [place], [place] [address]MEGHS CULTUREon [id number] identified Cx Nom (U)CULTURE RESULTS NO GROWTH AT <1000 CFU/mLNormalProAvita Health System Galion HospitalComment on above: Performed By: #### [id number], CMP, CBCA #### [facility] ([id number]) [address], [address] [place], [place] [address]WM CHEST 1 VWon [id number] CHEST 1 VWXR CHEST 1 VW Chest radiograph dated: 02/08/2024. [...] Rose Marie Rubi MD on 02/08/2024 9:35 AMNormalProUniversity Hospitals Beachwood [facility] Center HospitalURETHRITIS/DISCHARGE PLUS VAGINITIS (HTRX)on [id number] VAGINAE 0.000NOMS HealthcareATOPOBIUM VAGINAENot detectedNOMS HealthcareBVAB 2,3 (BACTERIAL VAGINOSIS ASSOCIATED BACTERIA 2, 3); MOBILUNCUS SPP0.000NOMS HealthcareBVAB 2,3 (BACTERIAL VAGINOSIS ASSOCIATED BACTERIA 2, 3); MOBILUNCUS SPPNot detectedNOMS HealthcareCANDIDA ALBICANS, PARAPSILOSIS, TROPICALIS0.000 NOMS HealthcareCANDIDA ALBICANS, PARAPSILOSIS, TROPICALISNot detectedNOMS HealthcareCANDIDA GLABRATA0.000NOMS HealthcareCANDIDA GLABRATANot detectedNOMS HealthcareCANDIDA KRUSEI0.000NOMS HealthcareCANDIDA KRUSEINot detectedNOMS HealthcareCHLAMYDIA TRACHOMATIS0.000NOMS HealthcareCHLAMYDIA TRACHOMATISNot detectedNOMS HealthcareGARDNERELLA VAGINALIS0.000NOMS HealthcareGARDNERELLA VAGINALISNot detectedNOMS HealthcareMEGASPHAERA (TYPES 1, 2)0.000[facility] MEGASPHAERA (TYPES 1, 2)Not detectedNOMS HealthcareMYCOPLASMA GENITALIUM0.000 N[facility]S HealthcareMYCOPLASMA GENITALIUMNot detectedNOMS HealthcareNEISSERIA GONORRHOEAE0.000NOMS HealthcareNEISSERIA GONORRHOEAENot detectedNOMS Healthcare TRICHOMONAS VAGINALIS0.000NOMS HealthcareTRICHOMONAS VAGINALISNot detectedNOMS HealthcareNOMS HealthcareAFP, SERUM, OPEN SPINA BIFIDAon [id number] MOM1.08. NOMS HealthcareAFP VALUE35.9 ng/mL.NOMS HealthcareCOMMENT:Comment.NOM HealthcareComment on above:Nette Holley, Ph.D., [facility] Director References: Available Upon Request. Multiples Of Median Cutoffs For AFP Elevations Rao 2.5 Black 2.8 IDD 2.0 Twins 4.5 Abbreviation Definitions IDD - Insulin Dep Diabetes OSBR - Open Spina Bifida Risk For further inquiries contact [facility] at [phone]. This test was developed and its performance characteristics determined by [address] It has not been cleared or approved by the Food and Drug Administration. Performed at: [facility] [place], [place] [id number] Pin Game Machine Inspector: Ashley Duggan [facility], Phone: [phone] GEST. AGE ON COLLECTION DATE17.9. weeksNOMS HealthcareGESTAT. AGE BASED ONAs provided.NOMS HealthcareComment on above:Recalculations are not recommended when gestational dating by LMP and ultrasound are within 10 days. INSULIN DEP DIABETESNo.NOMS HealthcareINTERPRETATIONComment.[facility] Healthcare Comment on above:Interpretation: Screen Negative This result is screen negative [...] Customer Services to discuss available options. The [employer] recommends amniocentesis be offered to women age 35 and older. MATERNAL AGE AT EDD37.1. yrNOMA HealthcareMULTIPLE GESTATIONNo.[facility] Healthcare OSBR RISK 1 [id number].NOMS HealthcareRACEOther.NOMS HealthcareRESULTSReport.[facility] HealthcareTEST RESULTS:Negative.[facility] PodkwqzuyoHZVRTW490. lbsNOMA Healthcare PREGNANY N N ULTRASOUND [id number] 17 N 1 Y 225 N N N N N White/ CLINISYNCNOMA HealthcareUrinalysis macro (dipstick) panel (U)on 01-24-2024 Bilirubin, UANegativeNegative - 4(70) +++ mg/dLNOMS HealthcareBlood, UANegative Negative - 50 Slick/mcLNOMS HealthcareClarity, UAClearNOMS HealthcareColor, UA YellowNOMS HealthcareGlucose, UANegativeNegative - 1999(110) ++++ mg/dLRIVERTON HOSPITAL HealthcareInterpretation and review of laboratory resultsAbnormalNOMA Healthcare Ketones, UANegativeNegative - 160(16) ++++ mg/dLNOMA HealthcareLeukocytes, UA TraceNegative - 500+++ Mira/mcLNOMA HealthcareNitrite, UANegativeNegative - PositiveNOMA HealthcarepH, UA6.55 - 9NOMS HealthcareProtein, UANegativeNegative - 2000(20) ++++ mg/dLNOMA HealthcareSpec Grav, UA1.0201 - 1.03N[facility] Urobilinogen, UA1.00.2 - 12 mg/dLNOCoxHealthNOMA HealthcareUrinalysis macro (dipstick) panel (U)on 18-25-7495Egppkgrzc, UANegativeNegative - 4(70) +++ mg/dL [facility] HealthcareBlood, UAPositiveNegative - 50 Slick/mcLNOMS HealthcareComment on above:traceClarity, UAClearNOMS HealthcareColor, UAYellowNOMS HealthcareGlucose, UANegativeNegative - 2000(110) ++++ mg/dLNOMS HealthcareInterpretation and review of laboratory resultsAbnormalNOMS HealthcareKetones, UANegativeNegative - 160(16) ++++ mg/dLNOMS HealthcareLeukocytes, UAPositiveNegative - 500+++ Mira/mcL NOMS HealthcareComment on above:smallNitrite, UANegativeNegative - PositiveNOMS HealthcarepH, UA6.05 - 9NOMS HealthcareProtein, UANegativeNegative - 2000(20) ++++ mg/dLNOMS HealthcareSpec Grav, UA1.0201 - 1.03NOMS HealthcareUrobilinogen, UA0.20.2 - 12 mg/dLNOMS HealthcareNOMS HealthcareNo Panel InformationOrdered By: Sanaz Lockwood on [id number] Strep (POC)[facility] COVID + FLU Quick Testingon 80-53-2706YGIS-CoV-2 (COVID-19) RNA J LUIS+probe Ql (Unsp spec)NegativeWorkVoices Other COVID + FLU Quick TestingNegativeWorkVoices Other Quick Strepon 04-27-2023S. pyogenes Org specific cx Ql (Throat)NegativeWorkVoices Other quick StrepWorkVoices Other COVID/FLU/RSV RT-PCRon 02-34-4205KAVW-CoV-2 (COVID-19) RNA J LUIS+probe Ql (Unsp spec)NegativeWorkVoices Other COVID/FLU/RSV RT-PCRPositiveBrandark Other COVID/FLU/RSV RT-PCRNegativeBrandark Other CBC AUTO DIFFon [id number] #0.0 103/ulNormal 0.0-0.1The [facility] ToledoComment on above:Performed By: #### CBC #### [facility] [address] [address] [address] Dee HumphreyBasophils/100 WBC (Bld)0.2 %Normal0.2-2.0The [facility] Comment on above:Performed By: #### CBC #### [facility] [address] [place] [address] Dr. Dee Fleming #0.1 103/ulNormal0.0-0.7The [facility] ToledoComment on above: Performed By: #### CBC #### [facility] [address] [place] [address] Dr. Dee Salehosinophils/100 WBC (Bld)0.6 %Critically low0.9-7.0The [facility] ToledoComment on above:Performed By: #### CBC #### [facility] [address] [place] [address] Dr. Dee Salehrythrocyte distribution width (RBC) [Ratio]14.1 %Rpyoje96.0-15.0 The [facility] ToledoComment on above:Performed By: #### CBC #### [facility] [address] [place] [address] Dr. Dee HumphreyHematocrit (Bld) [Volume fraction]37.1 %Fvbztl16.0-48.0The [facility] ToledoComment on above:Performed By: #### CBC #### [facility] [address] [place] [address] Dr. Dee HumphreyHemoglobin (Bld) [Mass/Vol]12.4 g/iXLjqxdy75.0-16.0The [facility] ToledoComment on above:Performed By: #### CBC #### [facility] [address] [place] [address] Dr. Dee Cuellar #0.06 10e3/ulCritically high0.00-0.03The [facility] Comment on above:Performed By: #### CBC #### [facility] [address] [place] [address] Dr. Dee Cuellar %0.5 %Normal0.0-0.5The [facility] ToledoComment on above: Performed By: #### CBC #### [facility] [address] [address] [address] Dee Castano #3.7 103/ulNormal1.2-3.8The [facility] ToledoComment on above:Performed By: #### CBC #### [facility] [address] [address] [address] Dee Brookshocytes/100 WBC (Bld)28.7 %Gbbhpr16.5-60.0The [facility] ToledoComment on above:Performed By: #### CBC #### [facility] [address] [address] [address] Dee Hickey DIFF REQNONormalThe [facility] ToledoComment on above: Performed By: #### CBC #### [facility] [address] [place] [address] Dr. Dee Garcia (RBC) [Entitic mass]30.2 vhNiltml42.7-34.0The [facility] ToledoComment on above:Performed By: #### CBC #### [facility] [address] [place] [address] Dr. Dee Garcia (RBC) [Mass/Vol]33.4 g/dIVzdiwr75.9-35.2The [facility] ToledoComment on above:Performed By: #### CBC #### [facility] [address] [place] [address] Dr. Dee Garcia (RBC) [Entitic vol]90.5 zZYfmiqp31.0-99.0The [facility] ToledoComment on above:Performed By: #### CBC #### [facility] [address] [place] [address] Dr. Dee Camacho #0.7 103/ulNormal0.3-0.8The [facility] ToledoComment on above:Performed By: #### CBC #### [facility] [address] [place] [address] Dr. Dee Delarosaocytes/100 WBC (Bld)5.0 %Normal1.7-12.0The [facility] Comment on above:Performed By: #### CBC #### [facility] [address] [address] [address] Dee ErvinUT #8.5 103/ulCritically high1.4-6.5The [facility] Comment on above:Performed By: #### CBC #### [facility] [address] [address] [address] Dee Ervinutrophils/100 WBC (Bld)65.0 %Ycpqgj33.0-75.0The [facility] ToledoComment on above:Performed By: #### CBC #### [facility] [address] [place] [address] Dr. Dee HumphreyPlatelet mean volume (Bld) [Entitic vol]9.6 fLNormal9.5-13.5The [facility] ToledoComment on above:Performed By: #### CBC #### [facility] [address] [place] [address] Dr. Dee HumphreyPLT317 103/cgXefzdb165-076Liw [facility] ToledoComment on above: Performed By: #### CBC #### [facility] [address] [place] [address] Dr. Dee HumphreyRBC4.10 106/ulCritically low4.20-5.40The [facility] ToledoComment on above:Performed By: #### CBC #### [facility] [address] [place] [address] Dr. Dee HumphreyWBC13.1 103/ulCritically high4.0-11.0The [facility] ToledoComment on above:Performed By: #### CBC #### [facility] [address] [place] [address] Dr. Dee HumphreyCT ABD/PELVIS WO CONon [id number] ABD/PELVIS WO CON EXAMINATION:CT ABD/PELVIS WO CON [...] within normal limits. VASCULATURE: Vascularity is unremarkable. PERITONEUM/RETROPERITONEUM: Peritoneum/retroperitoneum is unremarkable. LYMPH NODES: No suspicious lymphadenopathy. [...] Electronically authenticated by: ROCIO CHAU Date: 2022-04-27 20:24[facility] URINE PROFILEon 59-72-4220Mdnmisxzx Ql (U)NegativeNormal NEGATIVEAvita Health SystemComment on above:Performed By: #### PREGU, ERUR #### [facility] [address] [place] [address] Dr. Dee HumphreyClleroy (U)CLEARNormalCLEARAvita Health SystemComment on above: Performed By: #### PREGU, ERUR #### [facility] [address] [place] [address] Dr. Dee Fierro (U)YELLOWNormalYELLOWAvita Health SystemComment on above: Performed By: #### PREGU, ERUR #### [facility] [address] [place] [address] Dr. Dee Sutton micrscopic examination will be performed if indicated. NormalThe [facility] ToledoComment on above:Performed By: #### PREGU, ERUR #### [facility] [address] [place] [address] Dr. Dee HumphreyGlucose Ql (U)NegativeNormalNEGATIVEAvita Health SystemComment on above:Performed By: #### PREGU, ERUR #### [facility] [address] [place] [address] Dr. Dee HumphreyHemoglobin Ql (U)NegativeNormalNEGOhioHealth Comment on above:Performed By: #### PREGU, ERUR #### [facility] [address] [place] [address] Dr. Dee Griffithones Ql (U)NegativeNormalNEGATIVEAvita Health SystemComment on above:Performed By: #### PREGU, ERUR #### [facility] [address] [place] [address] Dr. Dee HumphreyLEUKOCYTESNegativeNormalNEGATIVEAvita Health SystemComment on above:Performed By: #### PREGU, ERUR #### [facility] [address] [place] [address] Dr. Dee HumphreyNitrite Ql (U)NegativeNormalNEGATIVEAvita Health SystemComment on above:Performed By: #### PREGU, ERUR #### [facility] [address] [place] [address] Dr. Dee HumphreypH (U)5.5 [pH]Normal5-9Avita Health SystemComment on above: Performed By: #### PREGU, ERUR #### [facility] [address] [place] [address] Dr. Dee HumphreySPEC GRAVITY>=1.148Igzsuzzl0.005-<=1.025[facility] Comment on above:Performed By: #### PREGU, ERUR #### [facility] [address] [place] [address] Dr. Dee Pedroza PROTEINNegativeNormalNEGATIVE/ TRACEAvita Health System Comment on above:Performed By: #### PREGU, ERUR #### [facility] [address] [place] [address] Dr. Dee Amaya MICRO INDNOT INDICATEDNoalThLicking Memorial HospitalComment on above:Performed By: #### PREGU, ERUR #### [facility] [address] [place] [address] Dr. Dee HumphreyUrobilinogen Qn (U)0.2 {Blanca'U}/dLNormal0.2 - 1.0The [facility] ToledoComment on above:Performed By: #### PREGU, ERUR #### [facility] [address] [place] [address] Dr. Dee AvilaASEon 41-14-8871Tahxtl [Catalytic activity/Vol]94.0 U/LNormal 73.0-393.0The Holladay HospitalComment on above:Performed By: #### LIPA, CMP #### [facility] [address] [place] [address] Dr. Dee HumphreyPREGNANCY URon 23-23-5377OSDWPHFAV, QUALNegativeNormalNEGATIVEThe [facility] ToledoComment on above:Performed By: #### PREGU, ERUR #### [facility] [address] [place] [address] Dr. Dee HumphreyPROF 14(COMP METB)on [id number] [Mass/Vol]3.9 g/dLNormal 3.4-5.0The [facility] ToledoComment on above:Performed By: #### LIPA, CMP #### [facility] [address] [place] [address] Dr. Dee HumphreyAlbumin/Globulin [Mass ratio]1.0 {ratio}NormalThe [facility] ToledoComment on above:Performed By: #### LIPA, CMP #### [facility] [address] [place] [address] Dr. Dee rByant [Catalytic activity/Vol]87 U/UQcccne24-285Gtz [facility] ToledoComment on above:Performed By: #### LIPA, CMP #### [facility] [address] [place] [address] Dr. Dee Cassidy [Catalytic activity/Vol]31 U/SFoasep03-43Ada [facility] ToledoComment on above:Performed By: #### LIPA, CMP #### [facility] [address] [place] [address] Dr. Dee Kern gap [Moles/Vol]10.8 mmol/LNormalThe [facility] Comment on above:Performed By: #### LIPA, CMP #### [facility] [address] [address] [address] Dee HumphreyAST [Catalytic activity/Vol]17 U/BOnzhxy98-83Dmf [facility] ToledoComment on above:Performed By: #### LIPA, CMP #### [facility] [address] [address] [address] Dee HumphreyBilirubin [Mass/Vol]0.1 mg/dLCritically low0.2-1.0The [facility] ToledoComment on above:Performed By: #### LIPA, CMP #### [facility] [address] [place] [address] Dr. Dee HumphreyCalcium [Mass/Vol]8.9 mg/dLNormal8.5-10.1The [facility] Comment on above:Performed By: #### LIPA, CMP #### [facility] [address] [place] [address] Dr. Dee HumphreyChloride [Moles/Vol]103 mmol/AAumeql61-310Noy [facility] Comment on above:Performed By: #### LIPA, CMP #### [facility] [address] [place] [address] Dr. Dee HumphreyCO2 [Moles/Vol]26.9 mmol/GFjxegh16.0-32.0The [facility] Comment on above:Performed By: #### LIPA, CMP #### [facility] [address] [place] [address] Dr. eDe HumphreyCreatinine [Mass/Vol]0.80 mg/dLNormal0.55-1.02The [facility] ToledoComment on above:Performed By: #### LIPA, CMP #### [facility] [address] [place] [address] Dr. Dee SalehGFR-AF ESTONIAN>60Normal>=60The [facility] ToledoComment on above:Performed By: #### LIPA, CMP #### [facility] [address] [place] [address] Dr. Dee SalehGFR-NON AF ESTONIAN>60Normal>=60The [facility] ToledoComment on above:Performed By: #### LIPA, CMP #### [facility] [address] [address] [address] Dee HumphreyGlobulin (S) [Mass/Vol]3.9 g/dLNormSelect Medical Specialty Hospital - ColumbusComment on above:Performed By: #### LIPA, CMP #### [facility] [address] [address] [address] Dee HumphreyGlucose [Mass/Vol]96 mg/zRTahjfb96-140KkjAvita Health System Comment on above:Performed By: #### LIPA, CMP #### [facility] [address] [place] [address] Dr. Dee HumphreyPotassium [Moles/Vol]3.7 mmol/LNormal3.5-5.1[facility] Comment on above:Performed By: #### LIPA, CMP #### [facility] [address] [place] [address] Dr. Dee HumphreyProtein [Mass/Vol]7.8 g/dLNormal6.4-8.2[facility] Comment on above:Performed By: #### LIPA, CMP #### [facility] [address] [place] [address] Dr. Dee HumphreySodium [Moles/Vol]137 mmol/BZjtkxd354-096AkyAvita Health System Comment on above:Performed By: #### LIPA, CMP #### [facility] [address] [place] [address] Dr. Dee HumphreyUrea nitrogen [Mass/Vol]13.0 mg/dLNormal7.0-18.0The [facility] ToledoComment on above:Performed By: #### LIPA, CMP #### [facility] [address] [place] [address] Dr. Dee HumphreyUrea nitrogen/Creatinine [Mass ratio]16.2 mg/mgNormSelect Medical Specialty Hospital - ColumbusComment on above:Performed By: #### LIPA, CMP #### [facility] [address] [place] [address] Dr. Dee Reyes AUTO DIFFon 11-99-6939NZQQ #0.0 103/ulNormal0.0-0.1The [facility] ToledoComment on above:Performed By: #### CBC #### [facility] [address] [place] [address] Dr. Dee HumphreyBasophils/100 WBC (Bld)0.3 %Normal0.2-2.0The [facility] Comment on above:Performed By: #### CBC #### [facility] [address] [place] [address] Dr. Dee Fleming #0.1 103/ulNormal0.0-0.7The [facility] ToledoComment on above: Performed By: #### CBC #### [facility] [address] [place] [address] Dr. Dee Salehosinophils/100 WBC (Bld)0.7 %Critically low0.9-7.0The [facility] ToledoComment on above:Performed By: #### CBC #### [facility] [address] [place] [address] Dr. Dee Salehrythrocyte distribution width (RBC) [Ratio]13.0 %Osyrkb89.0-15.0 The [facility] ToledoComment on above:Performed By: #### CBC #### [facility] [address] [place] [address] Dr. Dee HumphreyHematocrit (Bld) [Volume fraction]39.2 %Hukylh97.0-48.0The [facility] ToledoComment on above:Performed By: #### CBC #### [facility] [address] [place] [address] Dr. Dee HumphreyHemoglobin (Bld) [Mass/Vol]13.2 g/rZZscceg51.0-16.0The [facility] ToledoComment on above:Performed By: #### CBC #### [facility] [address] [place] [address] Dr. Dee Cuellar #0.05 10e3/ulCritically high0.00-0.03The [facility] Comment on above:Performed By: #### CBC #### [facility] [address] [address] [address] Dee Cuellar %0.5 %Normal0.0-0.5The [facility] ToledoComment on above: Performed By: #### CBC #### [facility] [address] [address] [address] Dee Castano #4.2 103/ulCritically high1.2-3.8The [facility] Comment on above:Performed By: #### CBC #### [facility] [address] [address] [address] Dee Brookshocytes/100 WBC (Bld)43.1 %Asdmck63.5-60.0The [facility] ToledoComment on above:Performed By: #### CBC #### [facility] [address] [place] [address] Dr. Dee De GuzmanUAL DIFF REQNONormalThe [facility] ToledoComment on above: Performed By: #### CBC #### [facility] [address] [place] [address] Dr. Dee Garcia (RBC) [Entitic mass]30.5 vkZtyvrs80.7-34.0The [facility] ToledoComment on above:Performed By: #### CBC #### [facility] [address] [place] [address] Dr. Dee Garcia (RBC) [Mass/Vol]33.7 g/oQVoresd70.9-35.2The [facility] ToledoComment on above:Performed By: #### CBC #### [facility] [address] [place] [address] Dr. Dee Garcia (RBC) [Entitic vol]90.5 xRMjemmt44.0-99.0The [facility] ToledoComment on above:Performed By: #### CBC #### [facility] [address] [place] [address] Dr. Dee Camacho #0.4 103/ulNormal0.3-0.8The [facility] ToledoComment on above:Performed By: #### CBC #### [facility] [address] [place] [address] Dr. Dee Delarosaocytes/100 WBC (Bld)4.4 %Normal1.7-12.0The [facility] Comment on above:Performed By: #### CBC #### [facility] [address] [place] [address] Dr. Dee ErvinUT #4.9 103/ulNormal1.4-6.5The [facility] ToledoComment on above:Performed By: #### CBC #### [facility] [address] [place] [address] Dr. Dee Ervinutrophils/100 WBC (Bld)51.0 %Psopgb88.0-75.0The [facility] ToledoComment on above:Performed By: #### CBC #### [facility] [address] [place] [address] Dr. Dee HumphreyPlatelet mean volume (Bld) [Entitic vol]9.6 fLNormal9.5-13.5The [facility] ToledoComment on above:Performed By: #### CBC #### [facility] [address] [place] [address] Dr. Dee HumphreyPLT364 103/vfDxjruk254-357Ajk [facility] ToledoComment on above: Performed By: #### CBC #### [facility] [address] [place] [address] Dr. Dee HumphreyRBC4.33 106/ulNormal4.20-5.40The [facility] ToledoComment on above:Performed By: #### CBC #### [facility] [address] [place] [address] Dr. Dee HumphreyWBC9.7 103/ulNormal4.0-11.0The [facility] ToledoComment on above: Performed By: #### CBC #### [facility] [address] [place] [address] Dr. Dee HumphreyLACTATE/LACTIC ACIDon 28-70-3679Wwtatkd [Moles/Vol]1.1 mmol/L Normal0.4-1.9The [facility] ToledoComment on above:Performed By: #### PREGU, ERUR #### [facility] [address] [place] [address] Dr. Dee Waggoneron 89-80-2893Gvrqrd [Catalytic activity/Vol]79.0 U/LNormal 73.0-393.0The [facility] ToledoComment on above:Performed By: #### CMP, LIPA #### [facility] [address] [place] [address] Dr. Dee HumphreyPROF 14(COMP METB)on 50-77-4551Jwqurwb [Mass/Vol]3.8 g/dLNormal 3.4-5.0The [facility] Hospitalment on above:Performed By: #### CMP, LIPA #### [facility] [address] [place] [address] Dr. Dee HumphreyAlbumin/Globulin [Mass ratio]0.9 {ratio}NormalThe [facility] ToledoComment on above:Performed By: #### CMP, LIPA #### [facility] [address] [place] [address] Dr. Dee Braynt [Catalytic activity/Vol]80 U/AEmnugb44-172Dfg [facility] on above:Performed By: #### CMP, LIPA #### [facility] [address] [place] [address] Dr. Dee Cassidy [Catalytic activity/Vol]27 U/LDvxjlm06-23Vqp [facility] ToledoComtrinity health [facility] on above:Performed By: #### CMP, LIPA #### [facility] [address] [place] [address] Dr. Dee Kern gap [Moles/Vol]9.5 mmol/LNormalThe [facility] ToledoComment on above:Performed By: #### CMP, LIPA #### [facility] [address] [place] [address] Dr. Dee James [Catalytic activity/Vol]13 U/LCritically kuz42-34Lpc [facility] Hospitalment on above:Performed By: #### CMP, LIPA #### [facility] [address] [address] [address] Dee HumphreyBilirubin [Mass/Vol]0.1 mg/dLCritically low0.2-1.0The [facility] ToledoComment on above:Performed By: #### CMP, LIPA #### [facility] [address] [address] [address] Dee HumphreyCalcium [Mass/Vol]9.0 mg/dLNormal8.5-10.1The [facility] Comment on above:Performed By: #### CMP, LIPA #### [facility] [address] [address] [address] Dee HumphreyChloride [Moles/Vol]103 mmol/ZXzhaot14-233Ktm [facility] Comment on above:Performed By: #### CMP, LIPA #### [facility] [address] [place] [address] Dr. Dee HumphreyCO2 [Moles/Vol]27.1 mmol/ELcambr89.0-32.0The [facility] Comment on above:Performed By: #### CMP, LIPA #### [facility] [address] [place] [address] Dr. Dee HumphreyCreatinine [Mass/Vol]0.86 mg/dLNormal0.55-1.02The [facility] ToledoComment on above:Performed By: #### CMP, LIPA #### [facility] [address] [address] [address] Dee SalehGFR-AF ESTONIAN>60Normal>=60The [facility] ToledoComment on above:Performed By: #### CMP, LIPA #### [facility] [address] [place] [address] Dr. Dee SalehGFR-NON AF ESTONIAN>60Normal>=60The [facility] ToledoComment on above:Performed By: #### CMP, LIPA #### [facility] [address] [address] [address] Dee HumphreyGlobulin (S) [Mass/Vol]4.1 g/dLNormalThe [facility] ToledoComment on above:Performed By: #### CMP, LIPA #### [facility] [address] [address] [address] Dee HumphreyGlucose [Mass/Vol]99 mg/oEJsewma98-210XurAvita Health System Comment on above:Performed By: #### CMP, LIPA #### [facility] [address] [address] [address] Dee HumphreyPotassium [Moles/Vol]3.6 mmol/LNormal3.5-5.1[facility] Comment on above:Performed By: #### CMP, LIPA #### [facility] [address] [address] [address] Dee HumphreyProtein [Mass/Vol]7.9 g/dLNormal6.4-8.2[facility] Comment on above:Performed By: #### CMP, LIPA #### [facility] [address] [address] [address] Dee HumphreySodium [Moles/Vol]136 mmol/LKyfmej814-725BwxAvita Health System Comment on above:Performed By: #### CMP, LIPA #### [facility] [address] [address] [address] Dee HumphreyUrea nitrogen [Mass/Vol]12.0 mg/dLNormal7.0-18.0[facility] SystemComment on above:Performed By: #### CMP, LIPA #### [facility] [address] [address] [address] Dee Fritz nitrogen/Creatinine [Mass ratio]14.0 mg/mgNormalThe [facility]edoComment on above:Performed By: #### CMP, LIPA #### [facility] [address] [place] [address] Dr. [facility] for COVID Vaccineon 80-10-8819MXGY-CoV-2 (COVID-19) RNA J LUIS+probe Ql (Unsp spec)[id number]#1.00CD:127 [facility] HospitalConsent for Treatmenton 37-12-9539Dlqxgso for [id number]#1.00CD:127NoWooster Community HospitalCoding Summary.on 91-00-8044Xsdagj Summary.CODING DATE: 08/07/2020 FINAL [facility] STATUS: PAYOR: Luzma APC DESCRIPTION [...] By: Yana Paredes Date Saved: 08/07/2020 02:46 pmNClermont County HospitalAmbulatory Clinical Summaryon [id number] Clinical Summary {[id number]}CD:[id number] HospitalPatient Educationon 76-98-2921Pzocthi Educationlurasidone (loo JOAO i done) Moon What is the most important information I should know about lurasidone? Lurasidone is not approved for use in older adults with dementia-related psychosis. Some people have thoughts about suicide while taking lurasidone. Stay alert to changes in your moodor symptoms. Report any new or worsening symptoms to your doctor. Tell your doctor about all your current medicines and any you start or stop using. Many drugs can interact, and some drugs should not be used together. What is lurasidone? Lurasidone is an antipsychotic medicine that is used to treat schizophrenia in adults and teenagerswho are at least 13 years old. Lurasidone [...] ? an antiviral such as ritonavir; ? Tunnelhill's wort; or ? seizure medicine such as [...] younger than 13 years old. Lurasidone is notapproved for depression in anyone younger than 10 [...] improve. Keep using the medication as directed. Callyour doctor if your symptoms do not improve, or if they get worse while using lurasidone. You should not stop using lurasidone suddenly. Stopping suddenly may cause other problems. It is easier to become dangerously overheated and dehydrated while you are taking lurasidone. Drinkplenty of fluids, especially in hot weather and [...] feel impulsive, irritable, agitate (more content not included)...[facility] Video Visit - Telehealthon [id number] Video Visit - TelehealthStart Time 3:00pm Stop Time 4:00pm Chief Complaint Bipolar 1 disorder BOB (generalized anxiety disorder Mood: Good Affect: Full, Congruent Thought Content: No hallucinations of any modality Cognitive Functioning: Alert and Oriented x4, Memory Intact Suicidality and Homicidality: Denied any suicidal or homicidal ideation, plan, intent Diagnosis/Assessment/Treatment Plan 1. Bipolar 1 disorder (F31.32: [...] and actions associated with her symptoms of depression,and the impact on her functioning. 2. Identify, [...] patient understand the connection between thoughts, depressive feelings,and actions/behaviors. 4. Help patient identify what thoughts [...] feelings and actions/behaviors. Helped patient identify and practicecoping skills that help patient alleviate mood instability and encourage to practice and use in herdaily life. Will continue with this therapeutic focus at next session. Therapist Intervention CBT Grief counseling Patient Response Patient was in good spirits during today's session. 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 Appears she is adapting better toSummer leaving their home. Changes In Medical Condition None reported Changes In Functional Impairment None reported Changes In Symptoms Explained None reported Other Information This visit was conducted via two-way, real-time interactive video communications from my office using [employer] due to the restrictions of the COVID-19 pandemic. No physical exam was conducted other than those areas of the body visible to telecommunications with the patient located at [address] [place] [phone], with no one else in attendance. If it is determined that the patient should be evaluated in the clinic, the patient will be directed to the appropriate clinic or venue. The patient or their guardian verbally consented to this visit. Video time was 60 minutes with the patient face to face greater than 50% in addition to counselingand coordination of care. Follow-up in 2 weeks [...] years: 9. Stopped age (more content not included)...[facility] HospitalComment on above: Result Comment: Electronically Signed By: Deepa CAL[facility]LL MEDICAL CENTERMaia.mati\Date and Time Signed: 02/22/20 23:17 [facility] Video Visit - Telehealthon [id number] Video Visit - TelehealthStart Time 3:00pm Stop Time 4:00pm Chief Complaint Bipolar 1 disorder Mental Status Exam Mood: Better Affect: Full, Congruent Thought Content: No hallucinations of any modality Cognitive Functioning: Alert and Oriented x4, Memory Intact Suicidality and Homicidality: Denied any suicidal or homicidal ideation, plan, intent Diagnosis/Assessment/Treatment Plan 1. Bipolar 1 disorder (F31.32: [...] and actions associated with her symptoms of depression,and the impact on her functioning. 2. Identify, [...] patient understand the connection between thoughts, depressive feelings,and actions/behaviors. 4. Help patient identify what thoughts [...] patient the reasons she decided to take thenew job, and her thought process in taking it. Acknowledged patient?s thoughts and feelings and howthey have had an impact on her mood. [...] interactive video communications from my office using [employer] due to the restrictions of the COVID-19 pandemic. No physical exam was conducted other than those areas of the body visible to telecommunications with the patient located at [address] [place] [phone], with no one else in attendance. If it is determined that the patient should be evaluated in the clinic, the patient will be directed to the appropriate clinic or venue. The patient or their guardian verbally consented to this visit. Video time was 60 minutes with the patient face to face greater than 50% in addition to counselingand coordination of care. Follow-up in 1 week [...] Father and Sister. Depres (more content not included)...[facility] HospitalComment on above:Result Comment: Electronically Signed By: Deepa [facility], Maia Montero.mati\Date and Time Signed: 02/11/20 14:46 [facility] Video Visit - TelehealthStart Time 3:00pm Stop Time 4:00pm Chief Complaint Bipolar 1 disorder Mental Status Exam Mood: Sad Affect: Flat, Tearful, Congruent Thought Content: No hallucinations of any modality Cognitive Functioning: Alert and Oriented x4, Memory Intact Suicidality and Homicidality: Denied any suicidal or homicidal ideation, plan, intent Diagnosis/Assessment/Treatment Plan 1. Bipolar 1 disorder (F31.32: [...] and actions associated with her symptoms of depression,and the impact on her functioning. 2. Identify, [...] patient understand the connection between thoughts, depressive feelings,and actions/behaviors. 4. Help patient identify what thoughts [...] interactive video communications from my office using [employer] due to the restrictions of the COVID-19 pandemic. No physical exam was conducted other than those areas of the body visible to telecommunications with the patient located at [address] [place], [place] [phone], with no one else in attendance. If it is determined that the patient should be evaluated in the clinic, the patient will be directed to the appropriate clinic or venue. The patient or their guardian verbally consented to this visit. Video time was 60 minutes with the patient face to face greater than 50% in addition to counselingand coordination of care. Follow-up in 1 week. [...] History Alcohol - Denies (more content not included)...[facility] Comment on above:Result Comment: Electronically Signed By: Deepa [facility] MEDICAL CENTERMaia.mati\Date and Time Signed: 02/11/20 14:37 [facility] Video Visit - Telehealthon [id number] Video Visit - TelehealthStart Time 3:00pm Stop Time 4:00pm Chief Complaint Bipolar 1 disorder Mental Status Exam Mood: Labile Affect: Full, Congruent Thought Content: No hallucinations of any modality Cognitive Functioning: Alert and Oriented x4, Memory Intact Suicidality and Homicidality: Denied any suicidal or homicidal ideation, plan, intent Diagnosis/Assessment/Treatment Plan 1. Bipolar 1 disorder (F31.32: [...] and actions associated with her symptoms of depression,and the impact on her functioning. 2. Identify, [...] patient understand the connection between thoughts, depressive feelings,and actions/behaviors. 4. Help patient identify what thoughts [...] suggestions and feedback about niece. Had patient discusswhat has been beneficial and what she continues [...] interactive video communications from my office using [employer] due to the restrictions of the COVID-19 pandemic. No physical exam was conducted other than those areas of the body visible to telecommunications with the patient located at [address] [place], [place] [phone], with no one else in attendance. If it is determined that the patient should be evaluated in the clinic, the patient will be directed to the appropriate clinic or venue. The patient or their guardian verbally consented to this visit. Video time was 60 minutes with the patient face to face greater than 50% in addition to counselingand coordination of care. Follow-up in 1 week [...] Abuse, 10/05/2011 Tobacco F (more content not included)...[facility] HospitalComment on above:Result Comment: Electronically Signed By: Maia Dias\Date and Time Signed: 01/29/20 21:44 [facility] Video Visit - TelehealthStart Time 3:00pm Stop Time 4:00pm Chief Complaint Bipolar 1 disorder Mental Status Exam Mood: Stable Affect: Full, Congruent Thought Content: No hallucinations of any modality Cognitive Functioning: Alert and Oriented x4, Memory Intact Suicidality and Homicidality: Denied any suicidal or homicidal ideation, plan, intent Diagnosis/Assessment/Treatment Plan 1. Bipolar 1 disorder (F31.32: [...] and actions associated with her symptoms of depression,and the impact on her functioning. 2. Identify, [...] patient understand the connection between thoughts, depressive feelings,and actions/behaviors. 4. Help patient identify what thoughts [...] this therapeutic focus at next session. Met withpatient 1:1 via telehealth for today's session. Patient [...] interactive video communications from my office using [employer] due to the restrictions of the COVID-19 pandemic. No physical exam was conducted other than those areas of the body visible to telecommunications with the patient located at [address] [place], [place] [phone], with no one else in attendance. If it is determined that the patient should be evaluated in the clinic, the patient will be directed to the appropriate clinic or venue. The patient or their guardian verbally consented to this visit. Video time was 60 minutes with the patient face to face greater than 50% in addition to counselingand coordination of care. Follow-up in 1 week. [...] concerns: No. Yes, 09 (more content not included)...[facility] HospitalComment on above: Result Comment: Electronically Signed By: Deepa [facility] MEDICAL CENTERMiaa.mati\Date and Time Signed: 01/29/20 21:38 EDTPatient Educationon [id number] Education aripiprazole (KEMAR welsh) Say Lerma What [...] with schizophrenia, or children younger than 10 withbipolar disorder. Aripiprazole is also used together with other medicines to treat major depressive disorder in adults. Aripiprazole is also used in children 6 years or older who have Tourette's disorder, or symptoms ofautistic disorder (irritability, aggression, mood swings, temper tantrums, and self-injury). Aripiprazole may also be used for purposes not listed in this medication guide. What should I discuss with my healthcare provider before taking aripiprazole? You should not take aripiprazole if you are allergic to it. Aripiprazole may increase the risk of in older adults with dementia- related psychosis and is not approved for this [...] you could have unpleasant withdrawal symptoms. Ask yourdoctor how to safely stop using this medicine. [...] symptoms may include drow (more content not included)...[facility] Video Visit - Telehealthon [id number] Video Visit - TelehealthStart Time 3:00pm Stop Time 3:45pm Chief Complaint Bipolar 1 disorder Mental Status Exam Mood: Stable Affect: Full, Tearful, Congruent Thought Content: No hallucinations of any modality Cognitive Functioning: Alert and Oriented x4, Memory Intact Suicidality and Homicidality: Denied any suicidal or homicidal ideation, plan, intent Diagnosis/Assessment/Treatment Plan 1. Bipolar 1 disorder (F31.32: [...] and actions associated with her symptoms of depression,and the impact on her functioning. 2. Identify, [...] patient understand the connection between thoughts, depressive feelings,and actions/behaviors. 4. Help patient identify what thoughts [...] grief process. She continues to have episodes ofsadness,where she feels her emotions escalating, but is able to control them as well as she is ableso to continue with her day to day [...] interactive video communications from my office using [employer] due to the restrictions of the COVID-19 pandemic. No physical exam was conducted other than those areas of the body visible to telecommunications with the patient located at [address] [place], [place] [phone], with no one else in attendance. If it is determined that the patient should be evaluated in the clinic, the patient will be directed to the appropriate clinic or venue. The patient or their guardian verbally consented to this visit. Video time was 45 minutes with the patient face to face greater than 50% in addition to counselingand coordination of care. Problem List/Past Medical History [...] Abuse, 10/05/2011 Tobacco For (more content not included)...[facility] HospitalComment on above:Result Comment: Electronically Signed By: Deepa [facility], Maia Montero.br\Date and Time Signed: 01/13/20 09:40 EDTPatient Educationon [id number] Educationaripiprazole (KEMAR welsh) Say Lerma Discmarco What is [...] with schizophrenia, or children younger than 10 withbipolar disorder. Aripiprazole is also used together with other medicines to treat major depressive disorder in adults. Aripiprazole is also used in children 6 years or older who have Tourette's disorder, or symptoms ofautistic disorder (irritability, aggression, mood swings, temper tantrums, and self-injury). Aripiprazole may also be used for purposes not listed in this medication guide. What should I discuss with my healthcare provider before taking aripiprazole? You should not take aripiprazole if you are allergic to it. Aripiprazole may increase the risk of in older adults with dementia- related psychosis and is not approved for this [...] you could have unpleasant withdrawal symptoms. Ask yourdoctor how to safely stop using this medicine. [...] symptoms may include drow (more content not included)...[facility] Video Visit - Telehealthon [id number] Video Visit - TelehealthStart Time 4:00pm Stop Time 4:53pm Chief Complaint Bipolar 1 disorder Grief Mental Status Exam Mood: Sad Affect: Flat, Congruent Thought Content: No hallucinations of any modality Cognitive Functioning: Alert and Oriented x4, Memory Intact Suicidality and Homicidality: Denied any suicidal or homicidal ideation, plan, intent Diagnosis/Assessment/Treatment Plan 1. Bipolar 1 disorder (F31.32: [...] and actions associated with her symptoms of depression,and the impact on her functioning. 2. Identify, [...] patient understand the connection between thoughts, depressive feelings,and actions/behaviors. 4. Help patient identify what thoughts [...] between her thoughts, feelings and actions/behaviors. Used strength- based approach to help patient deal with her grief andguilt in a more healthy manner. Encouraged patient to talk about ways to distract her thoughts. Therapist Intervention CBT Strength-based approach Thought distraction Patient Response Patient presented as sad today, however she was able to identify good things in her life. She has been able to return to usual activities, which she enjoys but also makes her feels sad because of herdeceased daughter. Patient states that she and her [...] interactive video communications from my office using [employer] due to the restrictions of the COVID-19 pandemic. No physical exam was conducted other than those areas of the body visible to telecommunications with the patient located at [address] [place], [place] [phone], with no one else in attendance. If it is determined that the patient should be evaluated in the clinic, the patient will be directed to the appropriate clinic or venue. The patient or their guardian verbally consented to this visit. Video time was 53 minutes with the patient face to face greater than 50% in addition to counselingand coordination of care. Problem List/Past Medical History [...] ago Tobacco Use:. N (more content not included)...[facility] HospitalComment on above:Result Comment: Electronically Signed By: Deepa [facility] MEDICAL CENTERMaia.mati\Date and Time Signed: 01/07/20 12:38 [facility] Video Visit - Telehealthon [id number] Video Visit - TelehealthStart Time 3:00pm Stop Time 4:00pm Chief Complaint Bipolar 1 disorder Mental Status Exam Mood: Sad, Angry Affect: Full, Congruent Thought Content: No hallucinations of any modality Cognitive Functioning: Alert and Oriented x4, Memory Intact Suicidality and Homicidality: Denied any suicidal or homicidal ideation, plan, intent Diagnosis/Assessment/Treatment Plan 1. Bipolar 1 disorder (F31.32: [...] and actions associated with her symptoms of depression,and the impact on her functioning. 2. Identify, [...] patient understand the connection between thoughts, depressive feelings,and actions/behaviors. 4. Help patient identify what thoughts [...] Will follow-up with this therapeutic focus at nextsession. Changes In Medical Condition None reported Changes In Functional Impairment None reported Changes In Symptoms Explained None reported Other Information This visit was conducted via two-way, real-time interactive video communications from my office using [employer] due to the restrictions of the COVID-19 pandemic. No physical exam was conducted other than those areas of the body visible to telecommunications with the patient located at [address] [place] [phone], with no one else in attendance. If it is determined that the patient should be evaluated in the clinic, the patient will be directed to the appropriate clinic or venue. The patient or their guardian verbally consented to this visit. Video time was 60 minutes with the patient face to face greater than 50% in addition to counselingand coordination of care. Follow-up in 1 week [...] History Alcoholism: Father and (more content not included)...[facility] HospitalComment on above:Result Comment: Electronically Signed By: Deepa REDD, Maia Montero.mati\Date and Time Signed: 12/30/19 13:50 [facility] Video Visit - Telehealthon [id number] Video Visit - TelehealthStart Time 3:00pm Stop Time 4:00pm Chief Complaint Bipolar 1 disorder Mental Status Exam Mood: Down, Anxious Affect: Flat, Congruent Thought Content: No hallucinations of any modality Cognitive Functioning: Alert and Oriented x4, Memory Intact Suicidality and Homicidality: Denied any suicidal or homicidal ideation, plan, intent Diagnosis/Assessment/Treatment Plan 1. Bipolar 1 disorder (F31.32: [...] and actions associated with her symptoms of depression,and the impact on her functioning. 2. Identify, [...] patient understand the connection between thoughts, depressive feelings,and actions/behaviors. 4. Help patient identify what thoughts [...] she has had custody of for the last10+ years, left the home 1 month prior to turning age 20. She left a note, and took her belongings.Is now staying with a friend. Patient states [...] passing away. Patient agreed to talk with Awais about her current symptoms - increased anxiety and irritability- and review her medications. Changes In Medical Condition None reported Changes In Functional Impairment None reported Changes In Symptoms Explained None reported Other Information This visit was conducted via two-way, real-time interactive video communications from my office using [employer] due to the restrictions of the COVID-19 pandemic. No physical exam was conducted other than those areas of the body visible to telecommunications with the patient located at [address] [place] [address], with no one else in attendance. If it is determined that the patient should be evaluated in the clinic, the patient will be directed to the appropriate clinic or venue. The patient or their guardian verbally consented to this visit. Video time was 60 minutes with the patient face to face greater than 50% in addition to counselingand coordination of care. Follow-up in 1 week [...] - Denies Alcohol U (more content not included)...[facility] HospitalComment on above:Result Comment: Electronically Signed By: Deepa [facility] CENTERMaia.mati\Date and Time Signed: 12/23/19 16:54 EDTPatient Educationon 17-06-4111Rupqgmy Educationaripiprazole (AR i PIP ra welsh) Say Lerma [...] with schizophrenia, or children younger than 10 withbipolar disorder. Aripiprazole is also used together with other medicines to treat major depressive disorder in adults. Aripiprazole is also used in children 6 years or older who have Tourette's disorder, or symptoms ofautistic disorder (irritability, aggression, mood swings, temper tantrums, and self-injury). Aripiprazole may also be used for purposes not listed in this medication guide. What should I discuss with my healthcare provider before taking aripiprazole? You should not take aripiprazole if you are allergic to it. Aripiprazole may increase the risk of in older adults with dementia- related psychosis and is not approved for this [...] you could have unpleasant withdrawal symptoms. Ask yourdoctor how to safely stop using this medicine. [...] symptoms may include drow (more content not included)...[facility] Video Visit - Telehealthon [id number] Video Visit - TelehealthStart Time 4:00pm Stop Time 5:00pm Chief Complaint Bipolar Disorder Grief Mental Status Exam Mood: Sad Affect: Flat, Congruent Thought Content: No hallucinations of any modality Cognitive Functioning: Alert and Oriented x4, Memory Intact Suicidality and Homicidality: Denied any suicidal or homicidal ideation, plan, intent Diagnosis/Assessment/Treatment Plan 1. Bipolar 1 disorder (F31.32: [...] and actions associated with her symptoms of depression,and the impact on her functioning. 2. Identify, [...] patient understand the connection between thoughts, depressive feelings,and actions/behaviors. 4. Help patient identify what thoughts [...] interactive video communications from my office using [employer] due to the restrictions of the COVID-19 pandemic. No physical exam was conducted other than those areas of the body visible to telecommunications with the patient located at [address] [place], [place] [id number], with no one else in attendance. If it is determined that the patient should be evaluated in the clinic, the patient will be directed to the appropriate clinic or venue. The patient or their guardian verbally consented to this visit. Video time was 60 minutes with the patient face to face greater than 50% in addition to counselingand coordination of care. Problem List/Past Medical History [...] tab(s), Oral, Daily, 5 (more content not included)...[facility] HospitalComment on above:Result Comment: Electronically Signed By: Deepa [facility], Maia Montero.mati\Date and Time Signed: 12/04/19 09:42 EDTPatient Educationon 59-53-3524Pxipgpb Educationbupropion (byoo PRO pee on) Aplenzin, Forfivo XL, [...] you have used an MAO inhibitor, such asisocarboxazid, linezolid, methylene blue injection, phenelzine, rasagiline, selegiline, [...] people stop smoking by reducing cravings and otherwithdrawal effects. Bupropion may also be used for [...] when first taking an antidepressant. Your doctor willneed to check your progress at regular visits. Your family or other caregivers should also be alertto changes in your mood or symptoms. Ask your doctor about taking this medicine if you are . It is not known whether bupropion will harm an unborn baby. However, you may have a relapse of depression if you stop taking your antidepressant. Tell your doctor right away if you become . Do not start or stop taking bupropionwithout your doctor's advice. If you are , [...] the medicine exactly as directed. Too much ofthis medicine can increase your risk of a seizure. You may take bupropion with or without food. Swallow the extended-release tablet whole and do not crush, chew, or break it. You should not change your dose or stop using bupropion suddenly, unless you have a seizure while taking this medicine. Stopping suddenly can cause unpleasant withdrawal symptoms. Ask your doctor howto safely stop using bupropion. If you take [...] slower heart rate, h (more content not included)...[facility] Vital Signs Date TimeVital SignValuePerforming DtmofilgdQkresvyr14-32-6692 13:41-0400Body mass index (BMI) [Ratio]38.96 kg/m2Liza ANTONIO Work Phone: [facility]HealthYcxwrcvofg94-12-9605 13:41-0400Body mgdokr80.62 kgLiza ANTONIO Work Phone: [facility] CenterOmxbvhubdd54-09-2461 13:41-0400Diastolic blood duqsfnbl99 mm[Hg]Liza ANTONIO Work Phone: [facility] CenterWmnulbakhi40-73-7379 13:41-0400Systolic blood bsevonsa495 mm[Hg]Liza ANTONIO Work Phone: [facility]oxHealthTxqrmlhyet52-61-1452 15:17-0500Body mass index (BMI) [Ratio]40.42 kg/m2Liza ANTONIO Work Phone: [facility] CenterQypslqvbyz05-52-4506 15:17-0500Body lttica157.25 kgAmy Kt ANTONIO Work Phone: [facility] CenterIiydlwqujs08-85-5925 15:17-0500Diastolic blood crirecsp52 mm[Hg]Liza Kt PA Work Phone: [facility] CenterFheigevajc90-08-1148 15:17-0500Systolic blood thilqgkt482 mm[Hg]Liza Kt PA Work Phone: [phone] [place], [place] [address]Xcbzkwepzz18-79-0617 14:35-0500Body mass index (BMI) [Ratio]41.3 kg/m5Adjkb Jorje DO Work Phone: 1(129)667-[facility] CenterCddbqncvzm81-15-5307 14:35-0500Body ovmmku773.42 kgCorey Jorje DO Work Phone: 1(790)422-[facility] CenterNqujcrtgfp54-34-0591 14:35-0500Diastolic blood oqrqrfyc85 mm[Hg]Johnathan Jorje DO Work Phone: 1(285)192-[address] [place], [place] [address]Xdemggkrre00-07-9488 14:35-0500Systolic blood fgwygezp102 mm[Hg]Johnathan Jorje DO Work Phone: [phone])974-[facility] CenterBmrpzighac41-05-4815 14:57-0500Body mass index (BMI) [Ratio]41.3 kg/n1Pxtce Jorje DO Work Phone: 1(036)249-[facility] CenterYwnphwdpvm91-99-5898 14:57-0500Body ylnxer653.42 kgCorey Jorje DO Work Phone: 1(130)749-[address] [place], [place] [address]Cxicekuxof07-51-6086 14:57-0500Diastolic blood vwdcbyqt35 mm[Hg]Johnathan Jorje DO Work Phone: 1(867)302-[address] [place], [place] [address]Moofknrtff99-91-0173 14:57-0500Systolic blood qperafus584 mm[Hg]Johnathan Jorje DO Work Phone: 1(266)827-[facility] CenterWvbtqtksuf27-52-0225 15:04-0500Body mass index (BMI) [Ratio]41.67 kg/m2Amy Kt PA Work Phone: 1(440)014-[facility] CenterRolbawzkem54-32-6303 15:04-0500Body polzbf346.33 kgAmy Kt PA Work Phone: 1(759)211-[facility] CenterQoavvjuzuc46-05-4230 15:04-0500Diastolic blood kaapndnr20 mm[Hg]Liza Meraz PA Work Phone: 1(109)331-[facility] CenterNoemtaglqw81-54-5222 15:04-0500Systolic blood nncckajh552 mm[Hg]Liza Meraz PA Work Phone: 1(914)758-[address] [place], [place] [address]Cmwkuunllo83-63-0028 13:59-0500Body mass index (BMI) [Ratio]42.07 kg/e2Yzzeb Jorje DO Work Phone: 1(741)743-[address] [place], [place] [address]Ragbmyzjku69-61-8441 13:59-0500Body .33 kgCorey Jorje DO Work Phone: 1(103)488-[address] [place], [place] [address]Buhhrwiwzq95-80-6600 13:59-0500Diastolic blood pxmlynux45 mm[Hg]Johnathan Jorje DO Work Phone: 1(475)869-[address] [place], [place] [address]Tkzpxpovbf05-01-6049 13:59-0500Systolic blood jtrwkxyv350 mm[Hg]Johnathan Jorje DO Work Phone: 1(645)676-[address] [place], [place] [address]Vgsabstrxv72-10-0199 14:01-0500Body mass index (BMI) [Ratio]41.7 kg/m2Amy Kt PA Work Phone: 1(173)054-[facility] CenterKbrfkxryzk03-07-0414 14:01-0500Body sccijq951.42 kgAmy Kt PA Work Phone: 1(271)237-[address] [place] [address]-21-2024 14:01-0500Diastolic blood segiflve63 mm[Hg]Liza Meraz PA Work Phone: 1(262)586-[address] [place] [address]21-2024 14:01-0500Systolic blood liuztmso378 mm[Hg]Liza Meraz PA Work Phone: 1(307)560-[address] [place], [place] [address]Avtqrmwcqk61-12-7294 14:26-0500Body mass index (BMI) [Ratio]41.96 kg/m2Amy Kt PA Work Phone: 1(685)399-[address] [place] [address]-11-2024 14:26-0500Body engscx564.06 kgLiza ANTONIO Work Phone: 1(125)[facility] [place] [address]-11-2024 14:26-0500Diastolic blood mhubdrio35 mm[Hg]Liza ANTONIO Work Phone: 1(678)[facility] [place] [address]11-2024 14:26-0500Systolic blood sbfhskko361 mm[Hg]Liza ANTONIO Work Phone: 1(841)[address] [place] [address]-06-2024 11:20-0500Body mass index (BMI) [Ratio]41.34 kg/y6Ykzco Jorje DO Work Phone: 1(176)[address] [place] [address]-06-2024 11:20-0500Body iwzxta946.51 kgCorey Jorje DO Work Phone: 1(343)[address] [place] [address]-06-2024 11:20-0500Diastolic blood ndrohuau62 mm[Hg]Johnathan Jorje DO Work Phone: 1(947)[address] [place] [address]-06-2024 11:20-0500Systolic blood dxxoiynb540 mm[Hg]Johnathan Jorje DO Work Phone: 1(944)[address] [place], [place] [address]-23-2024 13:57-0400Body mass index (BMI) [Ratio]41.3 kg/r1Uodia Jorje DO Work Phone: 1(805)[address] [place], [place] [address]-23-2024 13:57-0400Body hhpymt573.42 kgCorey Jorje DO Work Phone: 1(295)[address] [place] [address]-23-2024 13:57-0400Diastolic blood vhgzckyq37 mm[Hg]Johnathan Jorje DO Work Phone: 1(874)[facility] [place] [address]-23-2024 13:57-0400Systolic blood oyryiqcu818 mm[Hg]Johnathan Jorje DO Work Phone: 1(821)[address] [place] [address]-17-2024 13:03-0400Body peupyk226 cm Malena Cardona MD Work Phone: 1(458)179-[address] [place], [place] [address]-17-2024 13:03-0400Body mass index (BMI) [Ratio]39.65 kg/m5RcxlklbzMalena Cardona MD Work Phone: 1(824)[address] [place], [place] [address]-17-2024 13:03-0400Body shqjyh877.52 kgMalena Cardona MD Work Phone: 1(263)[address] [place], [place] [address]-17-2024 13:03-0400Diastolic blood tneqsouu59 mm[Hg]Malena Cardona MD Work Phone: 1(009)[address] [place], [place] [address]-17-2024 13:03-0400Heart rate 94 /minMalena Cardona MD Work Phone: 1(374)[address] [place], [place] [address]-17-2024 13:03-0400Systolic blood tihsoflu059 mm[Hg]Malena Cardona MD Work Phone: 1(191)[address] [place], [place] [address]-25-2024 11:57-0400Body mass index (BMI) [Ratio]41.15 kg/u8Vwilp Jorje DO Work Phone: [facility] CenterOkvnbcnbap95-18-8896 11:57-0400Body nhgfoe269.06 kgCorey Jorje DO Work Phone: [facility] CenterHgdiduhsfa04-99-8034 11:57-0400Diastolic blood aaezrlvt39 mm[Hg]Johnathan Jorje DO Work Phone: [facility] CenterFguyjmxzhi08-05-4836 11:57-0400Systolic blood mm[Hg]Johnathan Jorje DO Work Phone: 1(935)012-[facility] CenterPyeikhraqy20-03-8229 15:02-0400Body mass index (BMI) [Ratio]42.07 kg/m2Liza ANTONIO Work Phone: [facility] CenterSagqrggadq81-75-3980 15:02-0400Body .33 kgLiza ANTONIO Work Phone: [facility] CenterQdtelelkvw79-28-1702 15:02-0400Diastolic blood jsqjkzur23 mm[Hg]Liza ANTONIO Work Phone: [place] [address]Uempurroan12-44-9389 15:02-0400Systolic blood mm[Hg]Liza Meraz PA Work Phone: [facility] CenterJmzhqkilux96-06-0163 11:22-0400Body mass index (BMI) [Ratio]40.79 kg/j7Bvytr Jorje DO Work Phone: [facility] CenterOtiptkfkcx65-19-0807 11:22-0400Body flgegq468.15 kgCorey Jorje DO Work Phone: 1(967)917-[address] [place], [place] [address]Cxjdspxtpt59-47-8529 11:22-0400Diastolic blood kutdcwwo42 mm[Hg]Johnathan Jorje DO Work Phone: 1(178)250-[address] [place], [place] [address]Rbccuxtoej02-17-5431 11:22-0400Systolic blood dwwhtnus318 mm[Hg]Johnathan Jorje DO Work Phone: [facility] CenterJnfyrrqvek93-63-8507 14:24-0400Body .02 [facility]04[facility]20[facility] 14:24-0400Body mass index (BMI) [Ratio]40.2 kg/j8EbbyzqhztPromedica Fostoria [facility] Hospital04-19-2024 14:24-0400Body runhtgpfpxb16.4 [degF][facility]04-19-2024 14:24-0400Body .02 kgProm[facility]04-19-2024 14:24-0400Diastolic blood ikttjscn10 mm[Hg][facility]04-19-2024 14:24-0400 Heart zqgd787 /[facility]04-19-2024 14:24-0400 Respiratory rate16 /[facility]04-19-2024 14:24-0400 SaO2% (BldA) [Mass fraction]98 %[facility]04-19-2024 14:24-0400Systolic blood nisvzuem188 mm[Hg][facility] 04-27-2023 16:30-0500Body xwmpku269.02 Gabriel Lockwood Other [employer] Other 12-28-2023 16:30-0500Body mass index (BMI) [Ratio] 40.92 kg/h5VxvmbSanaz Lockwood Other [employer] Other 12-28-2023 16:30-0500Body lixendgybwe40.2 [degF]Sanaz Lockwood Other [employer] Other 12-28-2023 16:30-0500Body sjufxf530.78 kgSanaz Lockwood Other [employer] Other 12-28-2023 16:30-0500Respiratory rate18 /minSanaz Lockwood Other [employer] Other 12-28-2023 16:30-2636BsH2% (BldA) [Mass fraction]99 % Sanaz Lockwood Other [employer] Other 01-10-2023 14:45-0500Body udfsdz006.02 cmSteppedrito Han Other [employer] Other 01-10-2023 14:45-0500Body mass index (BMI) [Ratio] 38.97 kg/y5OdilrwxftKaylah Han Other [employer] Other 01-10-2023 14:45-0500Body afspqrwkzbm44.3 [degF] Kaylah Han Other [employer] Other 01-10-2023 14:45-0500Body .79 kgStmelissa Han Other [employer] Other 02-29-2020 22:40-0500Pulse (Heart Rate)84 /[facility]02-29-2020 22:40-0500Pulse Vnzjlucn82 % [facility]02-29-2020 22:35-0500BP Hauzbpkqt65 mm[Hg][facility]02-29-2020 22:35-0500BP Wvydbfkh427 mm[Hg][facility]02-29-2020 21:11-0500BMI (Body Mass Index)33.1 kg/p8AzuarlSuburban Community Hospital & [facility]02-29-2020 21:11-0500Body Xtfumpkrdws16.8 [degF][facility]02-29-2020 21:11-0500Body leorpi88.8 kgK[facility]02-29-2020 21:11-6652Ovbyyo424.02 cmPamelHarrison Community Hospital02-29-2020 21:11-0500Respiratory Rate20 /min[facility] Encounters Encounter DateEncounter TypeCare ProviderFacilityStart: 10-21-2024 End: 60-21-2041axkwktvzrdLfomumg PayFacility:[facility] Start: 07-18-2024 End: 48-56-6917assejfcqzmGCO RAMEYNot AvailableStart: 07-18-2024 End: 62-01-8658Hhgsuwmudn care visitLiza ANTONIO Work Phone: noms BCP OBComment on above:6 weeks follow-upStart: 06-11-2024 End: 90-37-1950fvhuawifybYLO RAMEYNot AvailableStart: 06-11-2024 End: 42-79-7750Bbcaws follow up visit related to original Jori ANTONIO Work Phone: noms BCP OBComment on above:Postoperative visit; S/P sectionStart: 06-11-2024 End: 71-61-2592Blvderpati ANTONIO Work Phone: noms BCP OBStart: 06-11-2024 End: 22-95-7709Dcpqlocarlos Spain Kt PA Work Phone: noms BCP OBStart: 06-05-2024 End: 64-76-0215Uonsjepbg Result EncounterCorey Jorje DO Work Phone: NOWJ External Department UnsolicitedStart: 06-05-2024 End: 25-82-0795Aodryrsva Result EncounterCorey Jorje DO Work Phone: NOFM External Department UnsolicitedStart: 06-04-2024 End: 61-84-2840Fnbqcscrq Result EncounterCorey Jorje DO Work Phone: noms External Department UnsolicitedStart: 06-04-2024 End: 55-05-0663Iorkofhqg Result EncounterCorey Jorje DO Work Phone: noms External Department UnsolicitedStart: 05-31-2024 End: 22-27-1962Opmczemil Result EncounterLiza Kt ANTONIO Work Phone: NOQK External Department UnsolicitedStart: 05-31-2024 End: 58-22-9353Higtisvgn Result EncounterAmy Kt ANTONIO Work Phone: noms External Department UnsolicitedStart: 05-30-2024 End: 20-32-8255Ywodljxbo Result EncounterCorey Jorje DO Work Phone: NOCN External Department UnsolicitedStart: 05-30-2024 End: 64-45-3070Xfheewnym Result EncounterCorey Jorje DO Work Phone: NONT External Department UnsolicitedStart: 05-29-2024 End: 28-30-8288edmaplfuzuIZNWS FAZIONot AvailableStart: 05-29-2024 End: 68-16-8069Bjpjfvzy flow sheetCorey Jorje DO Work Phone: noms BCP OBComment on above:Third trimester ; 36 weeks gestation of pregnancyStart: 05-29-2024 End: 12-52-4506Cxgmxo flowsheetCorey Jorje DO Work Phone: NOJG BCP OBStart: 05-29-2024 End: 43-76-1972Ypsbva flowsheetCorey Jorje DO Work Phone: noms BCP OBStart: 05-29-2024 End: 49-94-4455Vxrnoromh Result EncounterCorey Jorje DO Work Phone: NONP External Department UnsolicitedStart: 05-22-2024 End: 85-68-7710lrpjfnunhbBNCHQ FAZIONot AvailableStart: 05-22-2024 End: 68-97-3395Nligoytv flow sheetCorey Jorje DO Work Phone: NOAN BCP OBComment on above:Third trimester ; 35 weeks gestation of ; Gestational diabetes mellitus (GDM) in third trimester, gestational diabetes method of control unspecifiedStart: 05-22-2024 End: 09-77-9521Zwmvud flowsheetCorey Jorje DO Work Phone: NOGC BCP OBStart: 05-22-2024 End: 11-77-5845Cnqyic flowsheetCorey Jorje DO Work Phone: NOPA BCP OBStart: 05-13-2024 End: 52-02-0794agihmnywcmPZT Viviana AvailableStart: 05-13-2024 End: 73-61-4117Tekcsf flowsheetAmy Kt ANTONIO Work Phone: NOMS BCP OBStart: 05-13-2024 End: 00-03-0254Mnqnre flowsheetAmy Kt PA Work Phone: NOMS BCP OBStart: 05-13-2024 End: 27-82-4346Mmldgsrt flow sheetAmy Tremont PA Work Phone: NOMS BCP OBComment on above:33 weeks gestation of ; Third trimester ; Elevated blood pressure complicating in third trimester, antepartum; Gestational diabetes mellitus (GDM) in third trimester, gestational diabetes method of control unspecified; Insulin controlled gestational diabetes mellitus (GDM) during , antepartumStart: 05-09-2024 End: 32-59-1715qyaesvmqlpPAZCG FAZIONot AvailableStart: 04-22-2024 End: 02-60-0319Vvlrtukha Result EncounterCorey Jorje DO Work Phone: noms External Department UnsolicitedStart: 04-22-2024 End: 93-21-3944Loiccjkmm Result EncounterCorey Jorje DO Work Phone: noms External Department UnsolicitedStart: 04-22-2024 End: 83-48-4177euyyokjqosIjsnv FazioFacility:[facility] Start: 04-03-2024 End: 98-76-0728Ezpoqf flowsheetCorey Jorje DO Work Phone: NOW[facility] OBStart: 04-03-2024 End: 42-06-5994Dclbzp flowsheetCorey Jorje DO Work Phone: NORC BCP OBStart: 04-03-2024 End: 25-00-3522Asyrdvqz Result EncounterCorey Jorje DO Work Phone: noms External Department UnsolicitedStart: 04-03-2024 End: 82-50-2987Vcixysrm flow sheetCorey Jorje DO Work Phone: noms [facility] OBComment on above:28 weeks gestation of ; Third trimester ; Flank pain; Acute cystitis with hematuria; Urinary tract infection without hematuria, site unspecifiedStart: 04-03-2024 End: 11-71-8311mkjpdbvsggAYOAG FAZIONot AvailableStart: 03-21-2024 End: 61-59-5471Gmvnmfrjt Result EncounterCorey Jorje DO Work Phone: noms External Department UnsolicitedStart: 03-21-2024 End: 34-66-9197Ktutfgmjr Result EncounterCorey Jorje DO Work Phone: noms External Department UnsolicitedStart: 03-21-2024 End: 20-08-1976bclmjxhxkiQWA RAMEYNot AvailableStart: 03-21-2024 End: 31-06-7742Vxyggolm flow sheetLiza ANTONIO Work Phone: noms BCP OBComment on above:Second trimester ; 26 weeks gestation of ; Elevated glucose tolerance test; Gestational diabetes mellitus (GDM), antepartum, gestational diabetes method of control unspecifiedStart: 03-14-2024 End: 14-50-5841wyevhzeeibHHXLK R [facility] HospitalStart: 03-11-2024 End: 78-82-8455Afymsa Judit ANTONIO Work Phone: noms BCP OBStart: 03-11-2024 End: 53-37-6282Bkxmgj Judit ANTONIO Work Phone: noms BCP OBStart: 03-11-2024 End: 98-62-1739rdwsbzpmgeBBX Viviana AvailableStart: 03-11-2024 End: 83-59-3815Pxvolzta flow sheetLiza ANTONIO Work Phone: noms BCP OBComment on above:24 weeks gestation of ; Second trimester ; Acute cystitis with hematuriaStart: 03-06-2024 End: 83-25-8225Eetrseovn Result EncounterCorey Jorje DO Work Phone: noms External Department UnsolicitedStart: 03-06-2024 End: 69-63-9641Btvxarigx Result EncounterCorey Jorje DO Work Phone: noms External Department UnsolicitedStart: 03-06-2024 End: 50-12-4130fvxbmnxrfaHEUNO FAZIONot AvailableStart: 03-06-2024 End: 13-22-0398Ulsltnlm flow sheetCorey Jorje DO Work Phone: noms BCP OBComment on above:24 weeks gestation of ; Second trimester ; Flank pain; Acute cystitis with hematuriaStart: 02-26-2024 End: 92-17-2235jfwkyckoifAQBQXMUU [facility] HospitalStart: 02-21-2024 End: 08-34-8714Sxkkoz flowsheetCorey Jorje DO Work Phone: NOMS BCP OBStart: 02-21-2024 End: 20-25-2805Vphgtb flowsheetCorey Jorje DO Work Phone: NOMS BCP OBStart: 02-21-2024 End: 29-52-1611rdjedfsdyrKGBPF FAZIONot AvailableStart: 02-21-2024 End: 49-51-8871Tdpavsvc flow sheetCorey Jorje DO Work Phone: NOMS [facility] OBComment on above:22 weeks gestation of ; Second trimester ; Diabetes mellitus screeningStart: 02-15-2024 End: 87-81-8149Ryzxxe consultation new/estab patient 62 Steffen Cardona MD Work Phone: [phone]-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, antepartum; History of delivery, currently Start: 02-15-2024 End: 65-72-5219tzcjqhajazVGPGUMMN P DOCHEVAChildren's Hospital of Columbus SystemComment on above:21 weeks gestation of (Primary Dx); Obesity affecting in second trimester, unspecified obesity typeStart: 02-15-2024 End: 76-64-4292klqaceacvhEBBRU R FAZIOProMedica Muñoz HospitalStart: 02-09-2024 End: 04-15-7075Hbznnjfgas and management of inpatientCAMILLE BRATTONProMedica Muñoz HospitalStart: 02-08-2024 End: 08-19-7776Uozleepxbt and management of inpatientDAVID A HARPERProMedica Muñoz HospitalStart: 01-25-2024 End: 84-02-7672Xuzqm Jorje Cardona MD Work Phone: [phone]-[facility] Start: 01-24-2024 End: 92-26-2286Joshxc flowsheetCorey Jorje DO Work Phone: noms BCP OBStart: 01-24-2024 End: 72-11-4817Wvpmxiknm Result EncounterCorey Jorje DO Work Phone: noms External Department UnsolicitedStart: 01-24-2024 End: 56-98-7938Jzarnhzl Result EncounterCorey Jorje DO Work Phone: noms External Department UnsolicitedStart: 01-24-2024 End: 14-54-0142Ciigsqjk Result EncounterCorey Jorje DO Work Phone: noms External Department UnsolicitedStart: 01-24-2024 End: 93-45-7827lyqlyqlnraNGWQN FA[employer]IONot AvailableStart: 01-24-2024 End: 76-64-6213Liryxui encounter procedureCorey Jorje DO Work Phone: noms HealthcareStart: 01-24-2024 End: 65-51-0568Upmllfop preventive med est patient 18-39 yrsCorey Jorje DO Work Phone: noms BCP OBComment on above:18 weeks gestation of ; Well woman exam with routine gynecological exam; Screening, , for anatomic survey; Exposure to STD; Vaginal dischargeStart: 01-03-2024 End: 14-32-8431Actrjrgb flow sheetLiza ANTONIO Work Phone: noms BCP OBComment on above:Rash; Second trimester pregnancyStart: 01-03-2024 End: 47-97-8239gzqsltkejtWUN RAMEYNot AvailableStart: 12-25-2023 End: 18-55-3184Cljovy flowsheetCorey Jorje DO Work Phone: noms BCP OBStart: 12-25-2023 End: 16-78-3006Ewysxb flowsheetCorey Jorje DO Work Phone: noms BCP OBStart: 12-25-2023 End: 04-59-5256dbomhdwmbsJCGQW [employer]ot AvailableStart: 12-25-2023 End: 05-62-6463Tftyojna flow sheetCorey Jorje DO Work Phone: noms [facility] OBComment on above:Second trimester Start: 11-24-2023 End: 44-29-9800gdurqnrqmvOYEOF FAZIONot AvailableStart: 08-18-2023 End: 32-65-5428ecsbeknssiGqqpvdgxcMer[facility] Health [facility] Work Phone: Start: 08-18-2023 End: 90-25-4422Xfijljo encounter procedureCritical Access Hospital [facility] Work Phone: Start: 04-27-2023 End: 55-89-0733skfyhsulrhPepeo Keller Other [employer] Other Start: 82-49-1937Slwrke outpatient visit 25 minutes Sanaz LockwoodFPG Urgent Care ClydeStart: 05-10-2022 End: 14-26-3661waspalwnstXcwpjxjlk Breault Other [employer] Other Start: 33-76-9771Jeconv outpatient new 20 minutes Kaylah HanFPG Urgent Care ClydeStart: 04-27-2022 End: 12-37-0499wsejxphpnvEAQVAQ ASIYAMERFacility:O8Ozxjz: 03-07-2022 End: 51-77-9338oujngkhktaGUOXNY CRAMERFacility:X6Myvti: 39-54-2885eeddkoeesyCB JAZIEL HILLFacility:N4Jnkjv: 06-29-2019 End: 58-44-7396Gkhnoicfs department patient visitSub[facility] Procedures DateProcedureProcedure DetailPerforming ClinicianStart: 83-52-0726JPA CBC WITH AUTO DIFFCorey Jorje DO Work Phone: Start: 72-03-0796PLL CBC WITH AUTO DIFFCorey Jorje DO Work Phone: Start: 25-56-3453QG OB BPP W NON-STRESSAmy Kt ANTONIO Work Phone: Start: 45-67-9115OW OB BPP W NON-STRESSCorey Jorje DO Work Phone: Start: 62-06-8700RSZ CBC WITH AUTO DIFFCorey Jorje DO Work Phone: Start: 36-74-9348Cqrns dip stick/tablet rgnt non-auto w/o micrscpCorey Jorje DO Work Phone: Start: 59-42-7529Iodhp dip stick/tablet rgnt non-auto w/o micrscpCorey Jorje DO Work Phone: Start: 92-71-3399Rbymn dip stick/tablet rgnt non-auto w/o micrscpAmy Kt ANTONIO Work Phone: Start: 02-65-7488HYW UA (CLEAN/CATCH) QUALITY AUDITOR/MICRO IF IND.Johnathan Jorje DO Work Phone: Start: 85-37-3100EKCMMHPRH VAGINITIS (HTRX)Johnathan Jorje DO Work Phone: Start: 47-53-6177Nsmpo dip stick/tablet rgnt non-auto w/o micrscpCorey Jorje DO Work Phone: Start: 05-44-4191Nzrdr dip stick/tablet rgnt non-auto w/o micrscpAmy Kt ANTONIO Work Phone: Start: 73-10-4010ONU CBC WITH AUTO DIFFCorey Jorje DO Work Phone: Start: 68-37-9788Lqndz dip stick/tablet rgnt non-auto w/o micrscpCorey Jorje DO Work Phone: Start: 39-07-8053DRF UA (CLEAN/CATCH) QUALITY AUDITOR/MICRO IF IND.Johnathan Jorje DO Work Phone: Start: 25-99-9101Nmpfb dip stick/tablet rgnt non-auto w/o micrscpCorey Jorje DO Work Phone: Start: 71-13-5663Gtgcg dip stick/tablet rgnt non-auto w/o micrscpCorey Jorje DO Work Phone: Start: 02-15-2024H/O: sectionHistory of section complicating pregnancyMalena Cardona MD Work Phone: Start: 96-39-9845MWVTPRJOAR/DISCHARGE PLUS VAGINITIS (HTRX)Johnathan Recinos DO Work Phone: Start: 34-80-7060JEI, SERUM, OPEN SPINA BIFIDACoadrian Jorje DO Work Phone: Start: 76-00-0584Ahfjx dip stick/tablet rgnt non-auto w/o micrscpCorey Jorje DO Work Phone: Start: 23-63-8830Naimspbhqzh observation [Identifier] in Cervix by Cyto stainJohnathan Jorje DO Work Phone: Start: 43-09-4365Vxqfj dip stick/tablet rgnt non-auto w/o micrscpAmy Kt ANTONIO Work Phone: Start: 13-43-9340Aklym Strep (POC)H/O: sectionS/P sectionAmy Kt ANTONIO Work Phone: Plan of Treatment DateCare ActivityDetailAuthorStart: 27-50-2928Dtcawpucr for malignant neoplasm of cervixNOMS HealthcareStart: 20-92-0191Jtswv BMI ScreeningAdult BMI Screening [facility] SystemStart: 98-66-7125Vxwuqnv ScreeningTobacco Screening [facility] SystemStart: 02-14-2025 End: 93-17-5937QA MFM with or without consultUS MFM with or without consult Imaging Routine 21 weeks gestation of Obesity affecting in second trimester, unspecified obesity type Expected: 02/14/2025 (Approximate), Expires: 02/14/2025[facility] Work Phone: comment on above:Expected: 02/14/2025 (Approximate), Expires: 02/14/2025Start: 06-11-2024 End: 74-40-2501Dzmzdyg encounter wlbdfhifu43/11/2025 2:40 PM EST Office Visit [facility] [address] [place] [address] [place] [address] Liza Meraz PA [address] [facility] [address] [place], [place] [id number] [facility] OBStart: 05-29-2024 End: 68-12-5041Bhguqiu encounter mqsyctuqz19/29/2025 2:20 PM EST Routine [facility] [address] [place] [address] [place] [address] Johnathan Recinos, [address] Jaycob [place], [facility] OBStart: 05-29-2024 End: 12-41-9728ZQFBNSF, GROUP B STREP WITH SUSCEPTIBLITYCULTURE, GROUP B STREP WITH SUSCEPTIBLITY Lab Routine Third trimester Expected: 05/29/2024, Expires: 05/29/2025[facility] Work Phone: comment on above:Expected: 05/29/2024, Expires: 05/29/2025Start: 05-22-2024 End: 01-78-3480Kqprpip encounter exxtspthq65/22/2025 2:20 PM EST Routine [facility] [address] [facility] [place] [address] Johnathan Recinos, [address] Jaycob [place], [place] [id number] [facility] OBStart: 05-13-2024 End: 93-12-3447QQ biophysical profile w non stress testUS biophysical profile w non stress test Imaging Routine Elevated blood pressure complicatingpregnancy in third trimester, antepartum Gestational diabetes mellitus (GDM) in third trimester, gestational diabetes method of control unspecified Expected: 05/13/2024 (Approximate), Expires: 05/13/2025[facility] Work Phone: comment on above:Expected: 05/13/2024 (Approximate), Expires: 05/13/2025Start: 05-09-2024 End: 84-99-6798Dptipwdouosz / ancillary services gmyewibfrb68/09/2025 8:30 AM EST Ancillary Procedure [facility] [address] [place] [address] TLCX [facility] OBStart: 04-03-2024 End: 01-54-0842Zhamprs encounter procedureNOMS BCP OBComment on above:Arrived Start: 04-03-2024 End: 76-59-6460Oyjakfpgtfai / ancillary services zgydpaszxi48/04/2024 1:00 PM EST Ancillary Procedure [facility] [address] [place] [address] LKSD [facility] OBStart: 03-21-2024 End: 70-13-7568Mldzocafykb of glucose 3 hours after glucose challenge for glucose tolerance testGlucose tolerance, 3 hours Lab Routine Elevated glucose tolerance test Expected: 03/21/2024 (Approximate), Expires: 03/21/2025[facility] Work Phone: comment on above:Expected: 03/21/2024 (Approximate), Expires: 03/21/2025Start: 03-21-2024 End: 32-06-8404PQ for pregnancyUS OB SCAN FOR GROWTH Imaging Routine Gestational diabetes mellitus (GDM), antepartum, gestational diabetes method of control unspecified Expected: 03/21/2024 (Approximate), Expires: 03/21/2025[facility] HealthcareComment on above:Expected: 03/21/2024 (Approximate), Expires: 03/21/2025Start: 03-21-2024 End: 01-96-6560Axkhukx encounter yzhcqdlpy11/21/2024 1:30 PM EST Routine [facility] [address] [facility] [place] [address] Liza Meraz PA [address] [place] [address] [facility] OBStart: 03-14-2024 End: 67-15-4700Cdizaza encounter wxcexrpoj39/14/2024 9:45 AM EST Appointment [facility] Imaging [address] [place] [address] [phone] [facility] US ImagingStart: 02-22-2024 End: 58-29-3874Sxprtei encounter hybisjxyf13/24/2024 10:15 AM EDT Appointment Maternal Medicine [place] [address] [facility] [address] [place] [address] [phone] Medicine [facility]Start: 02-21-2024 End: 47-54-9048RXO panel - Blood by Automated countCBC Lab Routine Diabetes mellitus screening Expected: 02/21/2024 (Approximate), Expires: 02/20/2025[facility] Work Phone: comment on above:Expected: 02/21/2024 (Approximate), Expires: 02/20/2025Start: 02-21-2024 End: 19-63-1574Ilsvcxfzgwn of glucose 1 hour after glucose challenge for glucose tolerance testGlucose tolerance, 1 hour Lab Routine Diabetes mellitus screening Expected: 02/21/2024 (Approximate), Expires: 02/20/2025[facility] HealthcareComment on above:Expected: 02/21/2024 (Approximate), Expires: 02/20/2025Start: 02-21-2024 End: 32-10-5481Gznbnln encounter avymdwuvg43/23/2024 1:50 PM EDT Routine [facility] [address] [facility] [place] [address] Johnathan Recinos DO [address] [place], [place] [address] [facility] OBStart: 02-12-2024 End: 78-65-6817Cfninpk encounter procedureLouis Stokes [facility] US ImagingStart: 01-24-2024 End: 09-31-0853Liksj fetoprotein, maternalAlpha fetoprotein, maternal Lab Routine 18 weeks gestation of Expected: 01/24/2024 (Approximate), Expires: 02/23/2024[facility] HealthcareComment on above:Expected: 01/24/2024 (Approximate), Expires: 02/23/2024Start: 01-22-2024 End: 45-06-1218Sbhleun encounter sgeowakgk64/23/2024 10:20 AM EDT Routine [facility] OB [address] [place] [address] Johnathan Recinos, DO [address] [facility] [place] [address] [facility] OBStart: 82-69-7647RMFTM-19 Vaccine ( - 2022- season)COVID-19 Vaccine ( - season)[facility] SystemStart: 56-72-3790Poorlmjpt vaccinationRIVERTON HOSPITAL HealthcareStart: 37-88-8788HFzN,Tdap and Td Vaccines (2 - Td or Tdap)DTaP,Tdap and Td Vaccines (2 - Td or Tdap)[facility] SystemStart: 24-57-8833Xnsylzrgh for malignant neoplasm of cervixNOMS HealthcareStart: 43-25-3429Tcptohyir for malignant neoplasm of cervixPap SmearNOMS HealthcareStart: 37-68-9196Fkyyx BMI Follow Up PlanAdult BMI Follow Up PlanChildren's Hospital of [facility] SystemStart: 71-09-9144Flbjm BMI ScreeningAdult BMI ScreeningChildren's Hospital of [facility] SystemStart: 26-90-3316Dmkjxpwtyp ScreeningDepression ScreeningChildren's Hospital of [facility] SystemStart: 60-62-7294Gycxdae ScreeningTobacco ScreeningChildren's Hospital of [facility] SystemBacteria identified in Urine by CultureUrine culture Microbiology Routine 24 weeks gestation of Second trimester Ordered: 03/06/2024[facility] Work Phone: Comment on above:Ordered: 4Bacteria identified in Urine by CultureUrine culture Microbiology Routine Flank pain Acute cystitis with hematuria Urinary tract infectionwithout hematuria, site unspecified Ordered: 04/03/2024[facility] Work Phone: comment on above:Ordered: 04/03/2024HLAMYDIA TRACHOMATIS (GENITO/STI)CHLAMYDIA TRACHOMATIS (GENITO/STI) Lab Routine Exposure to STD Ordered: 01/24/2024[facility] HealthcareComment on above:Ordered: 01/24/2024 Cytology Cervical or vaginal smear or scraping studyPap Smear Pathology and Cytology Routine Well woman exam with routine gynecological exam Ordered: [facility] HealthcareComment on above:Ordered: 01/24/2024Human papilloma virus DNA [Presence] in Unspecified specimen by Probe with amplificationHPV DNA probe, amplified Microbiology Routine Well woman exam with routine gynecological exam Ordered: 01/24/2024[facility] HealthcareComment on above:Ordered: 01/24/2024 Neisseria gonorrhoeae DNA [Presence] in Unspecified specimen by J LUIS with probe detectionNeisseria gonorrhea DNA probe, direct Lab Routine Exposure to STD Ordered: 01/24/2024[facility] HealthcareComment on above:Ordered: 01/24/2024atient EducationEpinephrine (By injection) Anaphylaxis (ED) General Allergic Reaction (ED)[facility]trPatient referralHolzer Hospital Ctr SURESWAB(R) ADVANCED VAGINITIS PLUS, TMASURESWAB(R) ADVANCED VAGINITIS PLUS, TMA Pathology and Cytology Routine Vaginal discharge Ordered: 01/24/2024[facility] Work Phone: comment on above:Ordered: 01/24/2024 Immunizations Immunization DateImmunizationNotesCare JumavncoWxrfmema54-94-2186unnxktwer virus vaccine, unspecified formulationCorey Jorje DO Work Phone: [facility] Payers DatePayer CategoryPayerPolicy [id number]-[id number] 2024 [id number] 2024Blue Cross Blue ShieldBCBS [id number]215BgpfCibola General Hospital Managed Care - [place] [id number]99.505.44842-38-4894IjlvyscSXBP BCBS [id number] 2023- [phone] [address] [place] [address] 1.2.840.164143.1.13.693.2.7.3.057772.79522-97-2689Prphfgh Health Insurance 1.2840.000163.1.13.693.2.7.9.844697.308[id number] 2.16840.1.087333.3.57[id number] 2.16840.1.419153.3.57[id number] 2.16840.1.317963.3.579.[id number] 2.840.1.983514.3.579.2.967995-82-4189Zoldmui61987978 2.840.1.950508.3.57[id number] 2.840.1.928610.3.57[id number] 2.840.1.826490.3.57[id number] 2.0.1.982929.3.579.2.174[id number] 2..1.213234.3.579.2.78[id number] 2.0.1.220867.3.579.[id number] 2.0.1.613623.3.579.2.372639-86-4674Ggvosxx6638543 2.840.1.432919.3.579.2.228503-90-9196Lrpqgil4763278 2.840.1.871258.3.579.2.429734-71-5056Lukmwad5567550 2.840.1.637665.3.579.2.898225-60-7755Blzkivq8446683 2.840.1.863025.3.579.2.809519-35-6741Yuvhhix7684627 2..840.1.757585.3.579.2.773597-75-7640Ldijifa3640361 2..840.1.426340.3.579.2.498244-39-2025Jdsplrk9872701 2..0.1.134975.3.579.2.978312-10-3931Cimctvx4175115 2.0.1.901664.3.579.2.842830-83-4233Vxmdyor1301439 2..840.1.451728.3.579.2.621590-23-9711Fleagnk0923295 2..840.1.967046.3.579.2.259057-99-6697Xoeyjij2761117 2.0.1.629972.3.57[id number] 2.840.1.022269.3.579.2.853060-76-4474Qgapooi8931450 2.0.1.221431.3.579.2.984059-51-9695Rxsv-qvs98605328602-70-5857Lgecoep A2UAP3050049Cwtljar Health [id number] q3313s05-c7z1-942h-8356-azzi332f7847Dzhfknv38907574 2..1.877727.3.579.2.048Kmpjfoz94188203 2.0.1.026249.3.579.2.531 Social History DateTypeDetailFacilityStart: 06-29-2019 End: 40-96-5836Hodhxav smoking status NHISSmoker (finding)[facility] Hospitaltart: 03-57-7676Maa Assigned At BirthParkview Healthtart: 06-10-2020 End: 28-16-8445Jpv Assigned At BirthNort Dreamise Other Tobacco smoking status NHISTobacco smoking consumption unknownNOMA HealthcareStart: 61-06-0409XhvprgmhtXWEL HealthcareStart: 13-46-9559Zpemni identityIdentifies as female gender (finding)[facility] Start: 03-12-2019 End: 63-78-2941Tsqimjq smoking status NHISEx-smokerMercy Health Lorain HospitalAMS VariCode SystemStart: 03-12-2019 End: 64-22-3527Flagghw use and exposureSmokeless tobacco non-userMercy Health Lorain HospitalAMS VariCode SystemStart: 83-58-6135Rysmfpiyt beverage intakeLifetime non-drinker (finding)[facility] HospitalGreenTrapOnlinetart: 06-10-2020 End: 25-96-8752Alwrqxu of Social functionMercy Health Lorain HospitalAMS VariCode [facility] RegionChildcareUnknown Bellevue HospitalCrossTxtart: 03-12-2019 End: 45-07-1231Dzyvnwa CommentPT IS A VAPERCopley HospitalBoundaryMedical SystemStart: 91-82-8704Haq assigned at birthNot on fileCopley HospitalProRetina Therapeuticstart: 57-27-4676IobWkxcfh (finding)[facility] HospitalGreenTrapOnlinetart: 68-86-1613Dxspqm orientationHeterosexual (finding)Bellevue HospitalO3b Networks Medical Equipment Procedure CodeEquipment CodeEquipment Original TextEquipment IdentifierDates1 strip by In Vitro route Daily Use in the morning prior to breakfast, 1 hour after each meal for atotal of 4times daily.[id number]: 03-25-2024 End: each by In Vitro route Daily Use to check FSBS four times daily [id number]: 03-25-2024 End: 47-02-7906Yrnrfz 1 each under the skin See administration instructions Use four times daily with insulin pen.[id number]: 05-13-2024 End: 19-36-4572Qix as [id number]: 05-22-2024 Goals DatePatient GoalDesired Activity/StatePersonal health goalComment on above: Evaluation of progress towards goal: go home today Clinical Notes 12-02-2019 to 07-18-2024 Note Date & MxbkXsiwCehjnoev65-57-6880 History of Present illness Narrative* PACO Freed - 07/18/2024 1:30 PM EDT Reason for Appointment: Patient ID: Mikaela Mcclendon is a 39 y.o. female who presents for Care Patient presents today for Post Follow Up appointment. MEDICATIONS Current Outpatient Medications Medication Instructions Alcohol Swabs (Alcohol Prep Pad) 70 % pads 1 Pad, Topical, Daily, Use four times daily to check FSBS. aspirin 81 mg, Daily Blood Glucose Monitoring Suppl (D-Y-Klub Glucometer) w/Device kit 1 kit, Does not [...] for 6 week visit. Patient is s/p C-Sectiondelivery. Patient states depression but denies suicidal and homicidal ideations. All options were discussed with the patient regarding control and patient desires none at this time. Follow Up: Patient is to return for annual unless needed otherwise. Documented by PACO Freed on behalf of: PACO Freed documented in this encounterUniversity Health Truman Medical CenterMqicebirpz90-97-5686 History of Present illness Narrative* PACO Freed - 06/11/2024 2:40 PM EST Reason for Appointment: Patient ID: Mikaela Mcclendon is a 39 y.o. female who presents [...] 81 mg, Daily Blood Glucose Monitoring Suppl (D-Y-Klub Glucometer) w/Device kit 1 kit, Does not [...] behalf of: PACO Freed documented in this encounterUniversity Health Truman Medical CenterGzfgwmnpgs39-93-5493 History of Present illness Narrative* Gayle Hendricks, MARIA E - 05/29/2024 2:20 PM EST Reason for Appointment: Patient ID: Mikaela Mcclendon is a 39 y.o. female who presents [...] Medical History: Diagnosis Date Bipolar 1 disorder ([facility]) HISTORY PAST MEDICAL HISTORY SOCIAL HISTORY Past Medical History: Diagnosis Date Bipolar 1 disorder ([facility]) Social History Tobacco Use Smoking status: Not [...] nursing note reviewed. Exam conducted with a fondant puff maker present. Vitals: Estimated body mass index is [...] of: Johnathan Recinos DO documented in this encounterUniversity Health Truman Medical CenterOchcmikmmo39-77-1468 History of Present illness Narrative* Gayle Hendricks LPN - 05/22/2024 2:20 PM EST Reason for Appointment: Patient ID: Mikaela Mcclendon is a 39 y.o. female who presents [...] Medical History: Diagnosis Date Bipolar 1 disorder ([facility]) HISTORY PAST MEDICAL HISTORY SOCIAL HISTORY Past Medical History: Diagnosis Date Bipolar 1 disorder ([facility]) Social History Tobacco Use Smoking status: Not [...] nursing note reviewed. Exam conducted with a fondant puff maker present. Vitals: Estimated body mass index is [...] of: Johnathan Recinos DO documented in this encounterUniversity Health Truman Medical CenterYlmvjefjss30-90-4768 History of Present illness Narrative* Barbara Guillermo, BILLBOARD MECHANIC - 05/13/2024 1:50 PM EST Reason for Appointment: Patient ID: Mikaela Mcclendon is a 39 y.o. female who presents for No chief complaint on file. Patient presents today for Return OB appointment. MEDICATIONS Current Outpatient Medications Medication Instructions Alcohol Swabs (Alcohol Prep Pad) 70 % pads 1 Pad, Topical, Daily, Use four times daily to check FSBS. aspirin 81 mg, Daily Blood Glucose Monitoring Suppl (D-Y-Klub Glucometer) w/Device kit 1 kit, Does not [...] nursing note reviewed. Exam conducted with a fondant puff maker present. Vitals: Estimated body mass index is [...] to [facility] for NST/BPP/Cervical Length today for monito ring. Patient to setup the remaining NST/BPPs. Patient to start Lantus today as well for uncontrolled gestational diabetes. Patient to have Repeat on 06/04/24 due to uncontrolled GDM and elevated Bps (mild pre-eclampsia). Documented by Barbara Guillermo LPN on behalf of: Johnathan Recinos DO documented in this encounterUniversity Health Truman Medical CenterEkafbxbqmp83-15-2755 History of Present illness Narrative* Gayle Hendricks LPN - 04/03/2024 1:40 PM EST Reason for Appointment: Patient ID: Mikaela Mcclendon is a 38 y.o. female who presents for Routine Visit Patient presents today for Return OB appointment. MEDICATIONS Current Outpatient Medications Medication Instructions Alcohol Swabs (Alcohol Prep Pad) 70 % pads 1 Pad, Topical, Daily, Use four times daily to check FSBS. aspirin 81 mg, Daily Blood Glucose Monitoring Suppl (D-Y-Klub Glucometer) w/Device kit 1 kit, Does not [...] Medical History: Diagnosis Date Bipolar 1 disorder ([facility]) HISTORY PAST MEDICAL HISTORY SOCIAL HISTORY Past Medical History: Diagnosis Date Bipolar 1 disorder ([facility]) Social History Tobacco Use Smoking status: Not [...] nursing note reviewed. Exam conducted with a fondant puff maker present. Vitals: Estimated body mass index is [...] day. Pt is severely nauseated- pt advised [facility]go to [facility] for fluids and for diabetic education. Pt has hematuria and UTI. Reordering Keflex. Rx for Reglan faxed to pharmacy. Orders Placed This Encounter Procedures POCT urinalysis dipstick manually resulted Follow Up: Patient is to return to office in 2 week for routine OB appointment. Documented by Gayle Hendricks LPN on behalf of: Johnathan Recinos DO documented in this encounterUniversity Health Truman Medical CenterIqjvacrxwb05-60-6957 History of Present illness Narrative* PACO Freed - 03/21/2024 1:30 PM EST Reason for Appointment: Patient ID: Mikaela Mcclendon is a 38 y.o. female who presents [...] Medical History: Diagnosis Date Bipolar 1 disorder ([facility]) Social History Tobacco Use Smoking status: Not [...] hour glucose order to have done at [facility]. Patient DECLINES 3 hour gtt and would like to start testing FSBS--Patient will be referred to DiabeticEdu at [facility]. Follow Up: Patient is to return to office in 2 week for routine OB appointment. Documented by Nettie Frazier MA on behalf of: PACO Freed documented in this encounterUniversity Health Truman Medical CenterOxrbvbavxh94-58-9697 History of Present illness Narrative* Barbara Guillermo LPN - 03/11/2024 1:50 PM EST Reason for Appointment: Patient ID: Mikaela Mcclendon is a 38 y.o. female who presents [...] nursing note reviewed. Exam conducted with a fondant puff maker present. Vitals: Estimated body mass index is [...] of . Nursing will reach out to [facility] to inquire about culture results. Paco kenyon does have follow up appointment with Maternal Medicine. Patient to return to clinic in 4 weeks for routine OB appointment. Documented by Barbara Guillermo LPN on behalf of: PACO Freed documented in this encounterUniversity Health Truman Medical CenterPlnxgzmpdf80-15-8782 History of Present illness Narrative* Gayle Hendricks LPN - 03/06/2024 10:50 AM EST Reason for Appointment: Patient ID: Mikaela Mcclendon is a 38 y.o. female who presents [...] Medical History: Diagnosis Date Bipolar 1 disorder ([facility]) HISTORY PAST MEDICAL HISTORY SOCIAL HISTORY Past Medical History: Diagnosis Date Bipolar 1 disorder ([facility]) Social History Tobacco Use Smoking status: Not [...] nursing note reviewed. Exam conducted with a fondant puff maker present. Vitals: Estimated body mass index is [...] appt. Rx for keflex for 7 days fourtimes a day faxed to pharmacy and keflex 500 PO daily for remainder of . Documented by Gayle Hendricks LPN on behalf of: Johnathan Recinos DO documented in this encounterUniversity Health Truman Medical CenterJytexoaich79-73-5441 History of Present illness Narrative* Gayle Hendricks LPN - 02/21/2024 1:50 PM EDT Reason for Appointment: Patient ID: Mikaela Mcclendon is a 38 y.o. female who presents [...] Medical History: Diagnosis Date Bipolar 1 disorder ([facility]) HISTORY PAST MEDICAL HISTORY SOCIAL HISTORY Past Medical History: Diagnosis Date Bipolar 1 disorder ([facility]) Social History Tobacco Use Smoking status: Not [...] nursing note reviewed. Exam conducted with a fondant puff maker present. Vitals: Estimated body mass index is [...] of: Johnathan Recinos DO documented in this encounterUniversity Health Truman Medical CenterGqpmttiuhd90-14-1050 History of Present illness Narrative* Malena Cardona MD - 02/15/2024 1:00 PM EDT [facility]- [facility] Consult Note Reason For Consult: AMA, history of section x3, pyelonephritis follow up HPI: Prosper Mcclendon is a 38 y.o. at 21w2d with [...] and venlafaxine. Follows with psychiatry. Doing well withmood Delivery at 32 weeks for twins PROM Hyperemesis resolved s/p zofran pump History of a child with hydrocephalus her daughter passed age 10 following a seizure. Genetic testing was performed on her child and no genetic cause was found. No other affected family members. Vape: breeze 2500 puffs over a week and half. Denies family history of: Learning difficulties, congenital anomalies, DVT/VTE, early-onset cancer,early-onset cardiac disease or other inherited conditions Cell [...] Medical History: Diagnosis Date Bipolar 1 disorder ([facility]) Depression PSHIST: Past Surgical History: Procedure Laterality Date APPENDECTOMY SECTION CHOLECYSTECTOMY Allergies: Allergies Allergen Reactions Sulfamethoxazole Hives Trimethoprim Hives Meds: Prior to Admission medications Medication Sig Start Date End Date Taking? Authorizing Provider acetaminophen (TYLENOL EXTRA STRENGTH) 500 mg tablet Take 2 tablets (1,000 mg total) by mouth every6 (six) hours as needed for pain. Not [...] >=40. At age 38 y.o. Ms. Prosper Mcclendon'domingo age based aneuploidy risks are: The risk of trisomy 21 (Down syndrome) is 1:236 The risk of trisomy 18 (Edward syndrome) is 1:921 The risk for any chromosomal abnormality is 1:104 Has low risk cell free DNA Not interested in amniocentesis 3. Pyelonephritis affecting in second trimester S/p recent hospitalization. Compliant with keflex. After she finishes her therapeutic course pleaseobtain urine culture. She will need suppression until end of and consider up to 6 weeks Risks of pyelonephritis to reviewed Educated on signs and symptoms Urine culture each trimester recommended 4. Bipolar disease during in second trimester ([facility]) I reviewed with the patient that stability [...] levels of her lamotrigine checked in the xkth6dm and 3rd trimester in order to ensure adequate dosing. While monotherapy with low doses of psychotropics and mood stabilizers is typically the rule of thumb during , Lurasidone is a second-line agent and as an atypical antipsychotic. Based on animal studies not expected to increase risk for congenital anomalies. Risks of withdrawal and extrapyramidal effects on reviewed. Sock Boarder should be notified. Lack of controlled human data reviewed. She is currently on Effexor. Discussed that overall it has not been correlated with increased risk for congenital anomalies. Spontaneous loss and preeclampsia with SNRIs. Reviewed the risk of pulmonary hypertension in less than 05/999 fetus exposure to SSRI, SNRI. In addition we discussedwithdrawal and reviewed with her that her baby [...] they are concerned infant blood levels can betaken. Also based on the available evidence it is not known if venlafaxine is associated with otherpregnancy-related problems. She vocalized understanding. Patient desires to [...] at increased risk of cardiac dysfunction, proteinuria, sleepapnea, nonalcoholic fatty liver disease, gestational diabetes mellitus, [...] of 30 or greater, known impaired glucose metabolism,or previous gestational diabetes. For patients with prepregnancy BMI of 35.0-39.9, weekly surveillance may be considered beginning by 37 0/7 weeks of gestation. For patients with prepregnancy BMI 40 or greater, weeklyantenatal surveillance may be considered beginning at 34 [...] at the first visit, and again at 24-28weeks if the initial screen is negative. - Screening for FERN at the first visit, and referral to Sleep Medicine if FERN is suspected - Consideration for antepartum anesthesia consultation for women with a BMI>40 kg/m2, and especially in those women with FERN. - Place SCDs prior to cesaeran, and continue . For prevention of venous thromboembolism in bgtp-fnbr-esfo groups, pharmacologic thromboprophylaxis should be considered in [...] analysis of 142 studies, showed that any acti ve maternal smoking can increase the risk of stillbirth by nearly 50% (summary RR 1.46, 95% CI 1.38-1.54) and the risk of by over 20 percent (summary RR 1.22, 95% CI 1.14-1.30). In addition, the risks of stillbirth, and increased with the amount smoked by themother. [Emily et al., Am J Epidemiol. 2016 Richi;184(2):87-97]. morbidities associated with maternal smoking include double the risk for sudden infant syndrome (adjusted OR 2.44, 95%CI 2.31-2.57) [Fredi et al., Pediatrics. 2019;143(4)]. Other [...] cervical length at 22 weeks again and ifshort <2.5 cm patient to be further evaluated for vaginal progesterone and cerclage. Educated on signs and symptoms of labor Candidate for low dose aspirin for preeclampsia prevention Recommendations: Low dose aspirin 81 mg q.day for preeclampsia prevention Cervical length at 22 weeks at [facility] Follow up survey scheduled Serial growth assessments every 4 weeks after the anatomy scan can be done at OB office. ventricles should be measured at each US. If >=10 mm or concern for hydrocephalus refer to [facility]. If you would like [facility] to do the growth US please refer [...] Cardona MD, FACOG (she/hers) Maternal- Medicine [facility] [address] [facility] 1st [place] [address] This document was created with [employer] technology. Though I make every effort to review the dictation as it is transcribed, on occasion the spoken word can be misinterpreted by the technology leading to inappropriate words, phrases, or sentences. This note is addressed to the requesting provider as a consultation for clinical guidance. Specificmedical abbreviations are occasionally used and those are generally approved by the [place]?Board of?Obstetrics and?Gynecology?as well as?Jeri s abbreviations. The above plan of care was based solely on the diagnoses for which a consultation was requested. ?More frequent testing may be indicated based on her other medical/obstetrical conditions. The management of other or medical conditions is beyond the scope of requested consultation and will c ontinue to be followed by the primary page makeup system operator or primary care provider. Note to patient: The Century Cures Act makes medical notes like these available to patients inthe interest of transparency. However, be advised this is a medical document. It is intended as peer to peer communication. It is written in medical language and may contain abbreviations or verbiagethat are unfamiliar. It may appear blunt or direct. Medical documents are intended to carry relevant information, facts as evident, and the clinical opinion of the practitioner. * Flor Lopez RN - 02/15/2024 1:00 PM EDT Headache/epigastric pain/blurry vision/swelling? Daily headaches, no visual [...] yes Have you been seen here at [facility] in a previous ? yes Recent ER visits or hospitalizations? 02/07 kidney and bladder infection Bring blood sugar log or meter with you today? (Please bring them with you for every visit at [facility]) na Flu vaccine (Mar-June)? na Any concerns that you would like me to mention to the provider today? no documented in [facility] History of Present illness Narrative* Gayle Hendricks LPN - 01/24/2024 11:20 AM EDT Reason for Appointment: Patient ID: Mikaela Mcclendon is a 38 y.o. female who presents [...] annual exam/routine obstetrics appointment. Patient is currently 99o2penbieguf. Patient states she is doing well but has complaints of nausea in the morning. Pap and cultures was obtained without difficulty and patient was given orders for msAFP to be obtained. Pt still has zofran pump, when removed pt still very sick. This is number 4 section, pt to be referred to [facility] for level II ultrasound. Pt to return [...] of: Johnathan Recinos DO documented in this encounterUniversity Health Truman Medical [id number] History of Present illness Narrative* PACO Freed - 01/03/2024 2:30 PM EDT Reason for Appointment: Patient ID: Mikaela Mcclendon is a 38 y.o. female who presents [...] behalf of: PACO Freed documented in this encounterUniversity Health Truman Medical [id number] History of Present illness Narrative* Barbara Guillermo, MARIA E - 12/25/2023 10:50 AM EDT Reason for Appointment: Patient ID: Mikaela Mcclendon is a 38 y.o. female who presents [...] nursing note reviewed. Exam conducted with a fondant puff maker present. Vitals: Estimated body mass index is [...] or undercooked meat, and stay away from [facility]. Patient has been consulted regarding any further do's and don'tsof . Patient voiced understanding and all questions and concerns were answered. Patient complaints of nausea not helped by oral medications. [facility] Patient aware that [facility] will reach out to her to initiate therapy. Follow Up: Patient is to return in 4 weeks for routine OB appointment. Documented by Barbara Guillermo LPN on behalf of: Liza Meraz PA-C documented in this encounterUniversity Health Truman Medical [id number] Evaluation note* Encounter Date Diagnosis Assessment Notes Treatment Notes Treatment Clinical Notes Mar, Suspected COVID-19 virus infecti on (ICD-10 - Z20.822) Mar,Viral URI with cough (ICD-10 - J06.9) Advised [...] treatment plan. Patient left in stable condition. Mar,Sore throat (ICD-10 - J02.9) [facility] Other 01-10-2023 Evaluation note* Encounter Date Diagnosis Assessment Notes Treatment Notes Treatment Clinical Notes May, Contact with and (louis spected) exposure to other viral communicable diseases (ICD-10 - Z20.828) May,Influenza A (ICD-10 - J10.1)Symptoms presented today are related to the Flu. May use OTC medications such as Mucinex DM, Flu meds, etc. Kids can use Dimatapp or Delsym. Continue tylenol/ibu for general discomfort. Encourage flui ds. Antibiotics will not treat the flu. Symptoms should improve within the next 4-7 days. May,ronchitis (ICD-10 - J40)Take medications as directed. Rest and increase fluid [...] weeks for the cough to go away [facility] Other 11-07-2022 NoteIndication: Abdominal pain. Comparison: None [...] only communication with the patient located at [address] [place] [phone], with no one else. If it is determined that the patientshould be evaluated in person, the patient will be directed to the appropriate clinic or venue. Thepatient or their guardian verbally consented to this visit. Phone time was 15 minutes discussing health issues with counseling and coordination of care. Subjective Interval History/HPI Patient presents today for follow up via telehealth phone from [facility]. Patient started Latuda 20mg last [...] # 30 tab(s), Refills(s) 2, Pharmacy: [facility]/pharmacy #[id number], 161, cm, 12/23/19 10:18:00 EDT, Height/Length Dosing, 82, kg, 12/23/19 10:18:00 EDT, Weight Dosing Orders: lurasidone, 20 mg = 1 tab(s), Oral, Daily, with 350 calories; begin this dose first then progress to next dose of 40mg, X 1 week(s), # 7 tab(s), Refills(s) 0, Pharmacy: [facility]/pharmacy #[id number], 161, cm, 12/23/19 10:18:00 EDT, Height/Length Dosing, 82, kg, 12/23/19 10:... lurasidone, 40 mg = 1 tab(s), Oral, Daily, with 350 calories, # 30 tab(s), Refills(s) 1, Pharmacy: [facility]/pharmacy #[id number], 161, cm, 12/23/19 10:18:00 EDT, Height/Length [...] RODRIGUEZ CNP\.br\Date and Time Signed: 03/19/20 14:27 [id number] NoteHPI Staff This visit was conducted via two-way, real-time interactive video communications from my office using [employer] due to the restrictions of the COVID-19 pandemic. No physical exam was conducted other than those areas of the body visible to telecommunications with the patient located at [address] [place] [address], with no one else in attendance. If [...] Ordered: TELEHEALTH Office Visit Level 3 Est 93266 General Treatment Plan Maintain medication regimen _Improve [...] Employed, 03/18/2019 Home/Environment Sylvia (more content not included)...[facility] HospitalComment on above: Result Comment: Electronically Signed By: Carlota RODRIGUEZ CNP\.mati\Date and Time Signed: 03/05/20 13:32 [id number] NoteI Staff This visit was conducted via two-way, real-time interactive video communications from my office using [employer] due to the restrictions of the COVID-19 pandemic. No physical exam was conducted other than those areas of the body visible to telecommunications with the patient located at [address] [place] [address], with no one else in attendance. If [...] anxiety, # 30 tab(s), Refills(s) 1, Pharmacy: [facility]acy #[id number], 161, cm, 12/23/19 10:18:00 EDT, Height/Length Dosing, 82, kg, 12/23/19 10:18:00 EDT, Weight Dosing alprazolam, 0.5 mg = 1 tab(s), Oral, TID, PRN for anxiety, # 30 tab(s), Refills(s) 1, [id number], cm, 12/23/19 10:18:00 EDT, Height/Length Dosing, 82, kg, 12/23/19 10:18:00 EDT, Weight Dosing aripiprazole, See Instructions, 1.5 tab po qAM, # 30 tab(s), Refills(s) 2, [id number], cm, 12/23/19 10:18:00 EDT, Height/Length Dosing, 82, kg, 12/23/19 10:18:00 EDT, Weight Dosing aripiprazole, See Instructions, 1 tab po qAM, # 30 tab(s), Refills(s) 5, [id number] 161, cm, 12/23/19 10:18:00 EDT, Height/Length Dosing, 82, kg, 12/23/19 10:18:00 EDT, Weight Dosing cyclobenzaprine, 10 mg = 1 tab(s), Oral, TID, PRN for spasm, # 30 tab(s), Refills(s) 1, [id number] 161, cm, 06/13/19 14:39:00 EST, Height/Length Measured, 82, kg, 06/13/19 14:39:00EST, Weight Measured cyclobenzaprine, 10 mg = 1 tab(s), Oral, TID, PRN for spasm, # 30 tab(s), Refills(s) 1, [id number], 161, cm, 12/23/19 10:18:00 [...] HospitalComment on above:Result Comment: Electronically Signed By: JENNIFER BRADENCarlota\.br\Date and Time Signed: 01/27/20 22:35 [id number] NoteHPI Staff This visit was conducted via two-way, real-time interactive video communications from my office using [employer] due to the restrictions of the COVID-19 pandemic. No physical exam was conducted other than those areas of the body visible to telecommunications with the patient located at [address] [place] [phone], with no one else in attendance. If [...] Ordered: TELEHEALTH Office Visit Level 3 Est 45828 General Treatment Plan Maintain medication regimen _Improve [...] RODRIGUEZ CNP\.mati\Date and Time Signed: 01/13/20 09:11 [id number] NoteI Staff This visit was conducted via two-way, real-time interactive video communications from my office using [employer] due to the restrictions of the COVID-19 pandemic. No physical exam was conducted other than those areas of the body visible to telecommunications with the patient located at [address] [place] [address], with no one else in attendance. If [...] Refills(s) 1, Pharmacy: [facility]/pharmacy #[id number], 161, cm, 12/23/19 10:18:00 EDT, Height/Length Dosing, 82, kg, 12/23/19 10:18:00 EDT, Weight Dosing alprazolam, 0.5 mg = 1 tab(s), Oral, TID, PRN for anxiety, # 30 tab(s), Refills(s) 1, Pharmacy: [facility]/pharmacy #[id number], 161, cm, 06/13/19 14:39:00 EST, Height/Length Measured, 82, kg, 06/13/19 14:39:00 EST, Weight Measured aripiprazole, See Instructions, 1 tab po qAM, # 30 tab(s), Refills(s) 0, Pharmacy: [facility]/pharmacy #[id number], 161, cm, 12/23/19 10:18:00 EDT, Height/Length [...] RODRIGUEZ CNP\.br\Date and Time Signed: 12/23/19 16:37 [id number] NoteI Staff This visit was conducted via two-way, real-time interactive video communications from my office using [employer] due to the restrictions of the COVID-19 pandemic. No physical exam was conducted other than those areas of the body visible to telecommunications with the patient located at [address] [place] [address], with no one else in attendance. If [...] # 30 tab(s), Refills(s) 2, Pharmacy: [facility]/pharmacy #[id number],161, cm, 06/13/19 14:39:00 EST, Height/Length Measured, 82, kg, 06/13/19 14:39:00 EST, Weight Measured cyclobenzaprine, 10 mg = 1 tab(s), Oral, TID, PRN for spasm, # 30 tab(s), Refills(s) 1, Pharmacy: [facility]/pharmacy #[id number], 161, cm, 06/13/19 14:39:00 EST, Height/Length [...] (louis spected) exposure to covid-[address] [facility] Work Phone: Evaluation note* Diagnosis Onset Date Resolution Status Contact with and (suspected) exposure to covid-[address] [facility] Work Phone: Evaluation note* Diagnosis 22 [...] specified as infective documented in this encounter [facility] HealthcareEvaluation [facility]* Diagnosis 33 weeks gestation of Third trimester state, incidental Elevated blood pressure complicating in third trimester, antepartum Gestational diabetes mellitus (GDM) in third trimester, gestational diabetes method of control unspecified Insulin controlled gestational diabetes mellitus (GDM) during , antepartum documented in this encounter [facility] HealthcareEvaluation note* Diagnosis Third trimester state, incidental 35 weeks gestation of Gestational diabetes mellitus (GDM) in third trimester, gestational diabetes method of control unspecified documented in this encounter [facility] HealthcareEvaluation note* Diagnosis Third trimester state, incidental 36 weeks gestation of documented in this encounter [facility] HealthcareEvaluation [facility]* Diagnosis Postoperative visit S/P section Other postprocedural status documented in this encounter [facility] HealthcareEvaluation note* Diagnosis 21 weeks gestation of - Primary Obesity affecting in second trimester, unspecified obesity type [facility]* Diagnosis 21 weeks gestation of - Primary Multigravida of advanced maternal age in second trimester Pyelonephritis affecting in second trimester Bipolar disease during in second [facility] Obesity affecting in second trimester, unspecified obesity type BMI 39.0-39.9,adult History of section complicating Previous delivery, unspecified as to episode of care or not applicable Vapes nicotine containing substance Current rao with 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, antepartum History of delivery, currently with history of pre-term labor documented [facility] encounter [facility]* Diagnosis 6 weeks follow-up documented in this encounter [facility] HealthcareHistory general Narrative - Reported* Type Description Date Medical History Bipolar Surgical HistoryappendectomySurgical Historyc-section x 3Hospitalization History see above surgical history [facility] Other InstructionsNot on filedocumented in this encounter [facility]Instructions* Attachments The following attachments cannot be sent through Care Everywhere. * Preeclampsia (Bulgarian) * Movement (Bulgarian) documented [facility] SystemInstructionsNot on file documented [facility] Advance Directives No Advanced Directives Records Found Advance Directive Response Recorded Date/ Time Advance Directives No June 9:31pm Advance Directive Response Recorded Date/ Time Advance Directives No June 10:31pm Date ActivatedDate HlkdlrmepngDzobilss45/10/2024 2:59 AM02/09/2024 5:47 PMDate ActivatedDate VzvikruhxkzCvsplohl39/10/2024 2:59 AM02/09/2024 5:47 PM Chief Complaint and Reason for Visit Chief Complaint allergic reaction Assessments No Assessments Information Available Discharge Instructions Additional Instructions Follow up with your doctor as discussed. If you need to use an Epi-Pen, then you need to come to the hospital right away. This is not sufficient treatment on its own. You may need to be seen by an direct care supervisor if you have other events like this without definite egg exposure. Summary Purpose Family History No Family History Records Found Relationship Condition Age at Onset Recorded Date/T alo father Diabetes mellitus Unknown HypertensionUnknown Additional Source Comments INFORMATION SOURCE (unrecogn ized section and content) DATE CREATED AUTHOR 10/30/2020 [facility] DATE CREATED AUTHOR AUTHOR'S ORGANIZ ATION 04/29/2022 [facility] DATE CREATED AUTHOR AUTHOR'S ORGANIZ ATION 03/16/2024 [facility] DATE CREATED AUTHOR AUTHOR'S ORGANIZ ATION 07/20/2024 [facility] DATE CREATED AUTHOR AUTHOR'S ORGANIZ ATION 10/25/2024 [facility] REASON FOR VISIT (unrecogniz ed section and content) ReasonCommentsRoutine VisitReasonCommentsFollow up UTIReasonComments Gynecologic ExamReasonCommentsRoutine VisitPt present today for rash ReasonCommentsPost-op VisitPt present today for 1 wk C/S post operative visit. Pt delivered on 06/04/2024.ReasonCommentsAMAReasonCommentsPostpartum Care Care Teams (unrecognized sec tion and content) Team Status: Active Member Role Status Dates JAQUAN Hilton Primary Care Provider Active Team Status: Inactive Member Role Status Dates JAQUAN Hilton Primary Care Provider Active Start: August 18, 2023 End: August 17Dhara Wilkinson ProviderActiveStart: August 18, 2023 End: August 18, 2023Team MemberRelationshipSpecialtyStart DateEnd Date No Pcp, [place] [address] PCP - [facility] Popuxjgd76/12/19Team MemberRelationshipSpecialtyStart Date End Date No [place]cp, [place] [address] PCP - [facility]03/12/19Team MemberRelationshipSpecialtyStart Date End Date No Pcp, [place] [address] [address] - [facility]03/12/19 Goals (unrecognized section and content) Goals may [...] BE BASED ON THE PRIMARY CLINICAL RECORDS. [employer] [facility]. provides no warranty or guarantee of the accuracy or completeness of information in this document.
[2025-02-18 12:02] LABS: Hematocrit 41.9 % (36.0-48.0); Hemoglobin 14.1 g/dL (12.0-16.0); Immature Granulocytes Abs Auto 0.02 10^3/uL (0.00-0.03); Immature Granulocytes Pct Auto 0.2 % (0.0-0.5); Lymphocytes Absolute Auto 3.2 10^3/uL (1.2-3.8); Mean Corpuscular HGB Conc 33.7 g/dL (29.9-35.2); Mean Corpuscular Hemoglobin 30.7 pg (26.7-34.0); Mean Corpuscular Volume 91.1 fL (81.0-99.0); Platelet Count 418 10^3/uL (150-450); Red Blood Count 4.60 10^6/uL (4.20-5.40); White Blood Count 9.7 10^3/uL (4.0-11.0)
[2025-02-18 12:16] LABS: Glucose Urine UA NEGATIVE (NEGATIVE)
[2025-02-18 12:23] LABS: Cast Seen? NONE SEEN #/LPF (NONE SEEN); Crystals Seen? None Seen #/HPF (None Seen); Urine Culture Indicated ALREADY ORDERED
[2025-02-18 12:54] LABS: Alanine Aminotransferase 43 U/L (14-59); Albumin Globulin Ratio 0.9; Albumin Level 4.1 g/dL (3.4-5.0); Alkaline Phosphatase 104 U/L (46-116); Anion Gap 16.8; Aspartate Amino Transferase 17 U/L (15-37); Blood Urea Nitrogen 11.0 mg/dL (7.0-18.0); Calcium 9.3 mg/dL (8.5-10.1); Carbon Dioxide 23.1 mmol/L (21.0-32.0); Chloride 104 mmol/L (98-107); Cholesterol 163 mg/dL (<=200); Estimated GFR (African America >60 (>=60 mL/min/1.73m^2); Estimated GFR (Non-African Ame >60 (>=60 mL/min/1.73m^2); Free T3 3.04 pg/mL (2.18-3.98); Globulin 4.7 g/dL; Glucose 100 mg/dL (74-106); HDL Cholesterol 38 mg/dL (40-60); Potassium 3.9 mmol/L (3.5-5.1); Sodium 140 mmol/L (136-145); Thyroid Stimulating Hormone 3.324 uIU/mL (0.358-3.740); Total Protein 8.8 g/dL (6.4-8.2); Triglycerides 221 mg/dL (<=150); VLDL CHOLESTEROL 44.2 mg/dL
[2025-02-18 13:32] LABS: Iron 50.0 ug/dL (50.0-170.0)
== END 2025-02-18 11:25 | disposition home or self-care (01) ==
LOC: LAB 11:24
PROVIDERS: PCP Nurse Practitioner Family; Visit Provider Nurse Practitioner Family
DX: Z00.00 Encounter for general adult medical examination without abnormal findings (principal)
CPT/HCPCS: 36415; 80053; 80061; 81001; 82306; 83036; 83525; 83540; 84436; 84443; 84481; 85025; 86140; 87086; 87088; 87186

== ENCOUNTER 2025-04-09 12:10 | Outpatient (OUT) | payer BC, OTHER, SELFPAY ==
--- OUTSIDE RECORDS SUMMARY | 2025-04-09 12:15 | XMS_ITS | CCD ---
[facility] Organization [facility] Providers Care Cooker Loader Name Role Phone Kimberlyn Xie Primary Care [...] Pcp Primary Care Provider Unavailabl e JORJE, JOHNTAHAN Attending Unavailable JORJE, JOHNATHAN Attending Unavailable JORJE, JOHNATHAN Attending Unavailable KT, LIZA Attending Unavailable KT LIZA Attending Unavailable KT, LIZA Attending Unavailable JORJE, JOHNATHAN Attending Unavailable JORJE, JOHNATHAN Attending Unavailable JORJE, JOHNATHAN Attending Unavailable KT, LIZA Attending Unavailable KT, LIZA Attending Unavailable JORJE, JOHNATHAN Attending Unavailable LIZA MERAZ Attending Unavailable Rojas VISUAL PRESENTATION MANAGER-C, Kimberlyn Zamora Attending Provider Kimbelryn Xie Attending Unavailable Kimberlyn Xie Admitting Unavailable Jose Modi Attending Unavailable Rian, Jose Admitting Unavailable JorjeJohnathan liu Admitting Unavailable Johnathan Recinos Attending Unavailable Unavailable Unavailable Unavailable Allergies Allergy ClassificationReported Allergen(s)Allergy TypeDate of OnsetReaction(s) Facility (4 sources)egg extract; Translations: [egg]Drug Rkblntg16-83-1407Ewymfwku [facility] (20 sources)Sulfamethoxazole; Translations: [SULFAMETHOXAZOLE]Drug Allergy 50-51-1953QxzujPhubxhuoiL[facility] ([facility] sources)Trimethoprim; Translations: [TRIMETHOPRIM]Drug Udtmstq62-21-1466 [facility] (4 sources)Fish Containing Products; Translations: [Fish Containing Products] Propensity to adverse dhznndatp35-36-8764Xtnlqvtxns [facility] (1 source)Sulfamethoxazole / TrimethoprimDrug Ljuwvly24-85-5711[facility] (20 sources)Sulfamethoxazole / TrimethoprimDrug Rpgfxqk27-94-2068wtxuv, Unknown [employer] Other (20 sources)Egg-Derived ProductsDrug Yotgwco92-57-7940TK intoleranceNOMS Healthcare (8 sources)Egg Protein-Containing Drug ProductsDrug Pjvlttx34-70-0709RB intoleranceNOMS Healthcare Medications Current Medications MedicationDrug Class(es)DatesSig (Normalized)Sig (Original)acetaminophen 500 mg oral tablet (2 sources)take 2 tablets by mouth every six hours as needed for pain acetaminophen (TYLENOL EXTRA STRENGTH) 500 mg tablet Take 2 tablets (1,000 mg total) by mouth every6 (six) hours as needed for pain. [id number] 200 actuat albuterol 0.09 mg/actuat metered dose inhaler (2 sources)beta2-Adrenergic AgonistStart: 96-96-3529vjrc 2 puff(s) by inhalation every four hours as neededAlbuterol Sulfate HFA 108 (90 Base) MCG/ACT 2 puffs as needed Inhalation every 4 hrs 10 Hema, 2023 ActiveStart: 90-32-3301lpas 2 puff(s) by inhalation every four hours as neededAlbuterol Sulfate HFA 108 (90 Base) MCG/ACT 2 puffs as needed Inhalation every 4 hrs May, Not-Taking/PRN ALPRAZolam 0.5 mg oral tablet (2 sources)BenzodiazepineStart: 22-07-5707cpfy 1 tablet by mouth once daily as neededaspirin 81 mg delayed release oral tablet (20 sources)Platelet Aggregation Inhibitor, Nonsteroidal Anti-inflammatory Drug Start: 99-60-5605qgyfbkr 81 mg Indications: 21 weeks gestation of , Obesity affecting in second trimester, unspecified obesity type Take 1 tablet once a day and stop a week before delivery 30 tablet 6 02/15/2024 Active Control Pill (3 sources)Start: 03-84-5164Dqdth Control Pill Active June 29, 2019 9:40pm Start: 06-29-2019 End: 56-84-4344Xtzwn Control Pill Discontinued June 29, 2019 1:00am August 18, 2023 2:25pmbisacodyl 10 mg rectal suppository (3 sources)Stimulant LaxativeStart: 01-08-2024 End: 20-91-2378epliaqxad (Dulcolax) 10 MG suppository Indications: Constipation during in second trimester Insert 1 suppository (10 mg) into the rectum Daily as needed for constipation for up to 4 doses 4suppository 01/08/2024 01/24/2024 DiscontinuedBlood Glucose Monitoring Suppl (D-Care Glucometer) w/Device kit (20 sources)Start: 03-25-2024 End: 68-21-7744Aoqkf Glucose Monitoring Suppl (D-Care Glucometer) w/Device kit Indications: Gestational diabetes mellitus (GDM), antepartum, gestational diabetes method of control unspecified ([facility]) , Elevated glucose tolerance test 1 kit Daily Use four times daily to check FSBS. In the morning prior to breakfast & 1 hour after each meal for a total of 4times daily. 1 kit 03/25/2024 03/25/2025 ActiveStart: 03-25-2024 End: 12-26-3296Ribbk Glucose Monitoring Suppl (D-Care Glucometer) w/Device kit Indications: Gestational diabetes mellitus (GDM), antepartum, gestational diabetes method of control unspecified , Elevated glucose tolerance test 1 kit Daily Use four times daily to check FSBS. In the morning prior to breakfast & 1 hour after each meal for a total of 4times daily. 1 kit 03/25/2024 03/25/2025 Activebrexpiprazole 2 mg oral tablet (2 sources)Atypical AntipsychoticStart: 16-90-8732dmeo 1 tablet by mouth once daily24 hr buPROPion hydrochloride 150 mg extended release oral tablet (6 sources)AminoketoneStart: 88-13-9329pxfr 75 mg by mouth once dailyBupropion Hcl Active 75 MG Oral Daily June 29, 2019 9:40pmStart: 06-29-2019 End: 22-16-4225mwww 2 tablets by mouth once dailyBupropion Hcl (Wellbutrin Xl) 150 mg Tablet Extended Release 24 Hr Discontinued 75 MG PO Daily June 29, 2019 1:00am August 18, 2023 2:26pmbuPROPion (WELLBUTRIN) 100 mg tablet Take 50 mg by mouth 2 (two) times a day. ActivecarBAMazepine 200 mg oral tablet (2 sources)Mood StabilizerStart: 08-69-4872whzu 1 tablet by mouth twice daily cephalexin 500 mg oral capsule (20 sources)Cephalosporin AntibacterialStart: 02-24-2024 End: 16-09-5983oaet 1 capsule by mouth once dailycephalexin (Keflex) 500 MG capsule Indications: Flank pain , Acute cystitis with hematuria , Urinary tract infection without hematuria, site unspecified Take 1 capsule (500 mg) by mouth Daily 30 capsule 4 04/03/2024 05/03/2024 ActiveStart: 02-09-2024 End: 02-50-2693yblq 1 capsule by mouth every six hoursCEPHalexin (KEFLEX) 500 mg capsule Take 1 capsule (500 mg total) by mouth every 6 (six) hours for 14 days. 56 capsule 02/09/2024 02/23/2024 Activedextromethorphan hydrobromide 15 mg / guaiFENesin 400 mg / pseudoephedrine hydrochloride 60 mg oraltablet (1 source)alpha-Adrenergic Agonist, Uncompetitive F-fbdkjm-V-aspartate Receptor Antagonist, Sigma-1 AgonistStart: 50-77-4720xmke 4 tablets by mouth every twenty-four hours as neededCapmist DM 60-15-400 MG as needed Orally every 4-6 hours as needed, max 4 tablets in 24 hours for 5days Mar, Active [id number] 0.3 ml EPINEPHrine 1 mg/ml auto-injector (3 sources)alpha-Adrenergic Agonist, beta-Adrenergic Agonist, Catecholamine Start: 54-75-9557Nobjazqdufj Active 0.3 MG Intramuscular Once June 29, 2019 10:18pm inject into anterolateral area of thigh; repeat x1 in 5-15 minutes if necessaryStart: 50-00-2535Tbzqo: 07-61-0600Iihbelexiqq (Epipen 2-Jose) 0.3 mg/0.3 mL auto-injector Active 0.3 MG IM Once June 29, 2019 1:00am inject into anterolateral area of thigh; repeat x1 in 5-15 minutes if necessary hydrOXYzine hydrochloride 25 mg oral tablet (5 sources)AntihistamineStart: 42-27-4538pnxw 1 tablet by mouth every six hours as neededhydrOXYzine HCl Activeinsulin isophane, human 100 unt/ml injectable suspension (15 sources)Start: 75-05-8456kmukyw 10 [IU] by subcutaneous injection in the morninginsulin NPH, Isophane, (HumuLIN N,NovoLIN N) 100 UNIT/ML injection Indications: Gestational diabetes mellitus (GDM) in third trimester, gestational diabetes method of control unspecified ([facility]) Inject 10 Units under the skin in the morning and 10 Units in the evening. Inject before meals. 10 mL 5 05/22/2024 Activeinsulin, regular, human 100 unt/ml injectable solution (15 sources)InsulinStart: 05-22-2024 End: 11-43-0774bjwomc 0.05 mL by subcutaneous injection in the morninginsulin regular (HumuLIN R,NovoLIN R) 100 UNIT/ML injection Indications: Gestational diabetes mellitus (GDM) in third trimester, gestational diabetes method of control unspecified ([facility]) Inject 0.05 mL (5 Units) under the skin in the morning and 0.05 mL (5 Units) in the evening. Inject with meals. 10 mL 5 05/22/2024 Activeisopropyl alcohol 0.7 ml/ml medicated pad (20 sources)Start: 41-51-2206Gclbqjx Swabs (Alcohol Prep Pad) 70 % pads Indications: Gestational diabetes mellitus (GDM), antepartum, gestational diabetes method of control unspecified ([facility]) , Elevated glucose tolerance testApply 1 Pad topically Daily Use four times daily to check FSBS. 150 each 3 03/25/2024 Activeketoconazole 20 mg/ml medicated shampoo (2 sources)Azole AntifungalStart: 56-01-2523Yovdn: 72-63-3794Vbmczbfuveop Active TOPICAL August 18, 2023 12:00amlamoTRIgine 200 mg oral tablet (20 sources)Mood Stabilizer, Anti-epileptic AgentStart: 07-71-6249bymp 1 tablet by mouth once dailyStart: 06-29-2019 End: 15-72-4138ocjp 1 tablet by mouth once dailyLamotrigine (Lamictal) 100 mg Tablet Discontinued 100 MG PO Daily June 29, 2019 1:00am August 18, 2023 2:29pmtake 8 tablets by mouth in the morninglamoTRIgine (LaMICtal) 25 mg tablet Take 8 tablets (200 mg total) by mouth in the morning. ActivelamoTRIgine (LaMICtal) 25 mg tablet Take 30 mg by mouth 2 (two) times a day. ActiveLaMICtal Activeloratadine 10 mg oral tablet (2 sources)Start: 52-31-7108atka 1 tablet by mouth once dailylurasidone hydrochloride 40 mg oral tablet (20 sources)Atypical AntipsychoticStart: 90-21-9742gsag 1 tablet by mouth at mealtimelurasidone (Latuda) 40 MG tablet Take 40 mg by mouth in the morning. Take with meals. 10/18/2023 Activelurasidone (LATUDA) 40 mg tablet Take 60 mg by mouth in the morning. ActiveLatuda Activemagnesium oxide 400 mg oral tablet (20 sources)Start: 01-09-2024 End: 91-69-7128mquq 1 tablet by mouth once dailymagnesium oxide (Mag-Ox) 400 MG tablet Indications: Constipation during in second trimester Take 1 tablet (400 mg) by mouth Daily 30 tablet 11 01/09/2024 01/08/2025 Active metoclopramide 10 mg oral tablet (20 sources)Dopamine-2 Receptor AntagonistStart: 04-03-2024 End: 61-22-6491tpmkpitmhdbzaf (Reglan) 10 MG tablet Indications: Flank pain [...] 90 tablet 2 04/03/2024 ActiveStart: 12-01-2023 End: 82-38-1966jfpefplrdbpydo (Reglan) 10 MG tablet Indications: Nausea Take 1 tablet (10 mg) by mouth in the morning and 1 tablet (10 mg) at noon and 1 tablet (10 mg) in the evening. Take before meals. Take 1 tablet by mouth 30 minutes prior to meals 3 times daily as needed for nausea.. 90 tablet 12/01/202301/23 Discontinuedomeprazole 40 mg delayed release oral capsule (2 sources)Proton Pump InhibitorStart: 45-47-2769dtkw 1 capsule by mouth once dailyondansetron 4 mg disintegrating oral tablet (20 sources)Serotonin-3 Receptor AntagonistStart: 03-08-2024 End: 72-13-0462urfd 1 tablet by mouth every six hours as needed for nausea and vomiting and nausea and nauseaondansetron ODT (Zofran-ODT) 4 MG disintegrating tablet Indications: Nausea Take 1 tablet (4 mg) bymouth every 6 (six) hours if needed for nausea or vomiting for up to 30 doses 30 tablet 2 03/08/2024 Active Start: 11-19-4808tjgp 1 tablet by mouth every eight hours as needed for nausea and vomitingStart: 38-29-0276edhy 1 tablet by mouth every eight hours as needed Zofran ODT 4 MG 1 tablet on the tongue and allow to dissolve Orally every 8 hrs as needed for 4 days May, Not-Taking/PRNpredniSONE 20 mg oral tablet (4 sources)Start: 06-73-0164qczv 1 tablet by mouth every twelve hoursprednisone 20 MG 1 tablet Orally BID for 5 Mar, ActiveStart: 06-29-2019 End: 07-92-3075xbxd 3 tablets by mouth once daily in the morningPrednisone 20 mg tablet Discontinued 60 MG PO Every morning 9 3 0 June 29, 2019 1:00am August 18, 2023 2:27pm administer with food or milkStart: 06-29-2019 End: 65-56-5732njsq 60 mg by mouth once daily in the morningPrednisone Active 60 MG Oral Every morning 9 3 June 29, 2019 10:18pm administer with food or m ilkprenatal no115/iron/folic acid ( 19 ORAL) (2 sources) no115/iron/folic acid ( 19 ORAL) Take by mouth. Activepromethazine hydrochloride 12.5 mg oral tablet (20 sources)PhenothiazineStart: 03-25-2024 End: 48-65-9728drqj 1 tablet by mouth every six hours [...] tablet 2 03/25/2024 06/23/2024 ActiveStart: 11-24-2023 End: 89-83-5307lwnj 1 tablet by mouth every six hours [...] Discontinued rimegepant 75 mg disintegrating oral tablet (3 sources)Start: 26-74-2002nchq 1 tablet by mouth once daily as neededNurtec 75 MG 1 tablet on the tongue and allow to dissolve Orally Hpivub07 hr venlafaxine 37.5 mg extended release oral capsule (20 sources)Serotonin and Norepinephrine Reuptake InhibitorStart: 03-37-9328kxmi 1 capsule by mouth once dailyvenlafaxine XR (Effexor XR) 37.5 MG 24 hr capsule Take 37.5 mg by mouth Daily 08/31/2023 ActiveStart: 09-87-5461sugx 1 capsule by mouth once dailytake 1 capsule by mouth every twenty-four hours in the morning venlafaxine XR (EFFEXOR XR) 37.5 mg 24 hr capsule Take 1 capsule (37.5 mg total) by mouth in the morning. Activeziprasidone 80 mg oral capsule (3 sources)Atypical Antipsychoticziprasidone (GEODON) 80 mg capsule Take 120 mg by mouth 2 (two) times a day with meals. Active Completed/Discontinued Medications MedicationDrug Class(es)DatesSig (Normalized)Sig (Original)famotidine 20 mg oral tablet (3 sources)Histamine-2 Receptor AntagonistStart: 06-29-2019 End: 70-19-1395fouo 1 tablet by mouth twice dailyFamotidine (Pepcid) 20 mg tablet Discontinued 20 MG PO Twice daily 6 3 0 June 29, 2019 1:00amApril 2023 2:26pminsulin glargine 100 unt/ml injectable solution (7 sources)Insulin AnalogStart: 05-22-2024 End: 89-77-4056mscupe 15 [IU] by subcutaneous injection in the eveninginsulin glargine (Lantus) 100 UNIT/ML injection Indications: Hyperglycemia , GESTATIONAL DIABETES Inject 15 Units under the skin in the evening 3 mL 3 05/22/2024 05/22/2024 Discontinued (Entered in error)Start: 05-13-2024 End: 24-79-8105stozws 10 [IU] by subcutaneous injection in the eveninginsulin glargine (Lantus) 100 UNIT/ML injection Indications: Hyperglycemia , GESTATIONAL DIABETES Inject 10 Units under the skin in the evening 3 mL 3 05/13/2024 05/22/2024 Discontinued (Reorder)methylPREDNISolone 4 mg oral tablet (2 sources)CorticosteroidStart: 18-09-1533wujjjfVRWQIEUtpnxu 4 MG as directed Orally Once a day for 6 days May, Not-Taking/PRNnitrofurantoin, macrocrystals 25 mg / nitrofurantoin, monohydrate 75 mg oral capsule (2 sources)Nitrofuran AntibacterialStart: 12-05-2023 End: 47-23-2586pydo 1 capsule by mouth in the morningnitrofurantoin, macrocrystal-monohydrate, (Macrobid) 100 MG capsule Indications: Urinary tract infection without hematuria, site unspecified Take 1 capsule (100 mg) by mouth in the morning and 1 capsule (100 mg) before bedtime. Do all this for 7 days. 14 capsule 12/05/2023 12/25/2023 Discontinued (Therapy completed)oseltamivir 75 mg oral capsule (2 sources)Neuraminidase InhibitorStart: 77-50-8034gkdb 1 capsule by mouth every twelve hoursTamiflu 75 MG 1 capsule Orally Twice a day for 5 day(s) May, Not-Taking/PRN Problems Active Problems Problem ClassificationProblemDateDocumented DateEpisodic/ChronicAllergic reactions (3 sources)Food anaphylaxis; Translations: [Anaphylactic reaction due to unspecified food, initial encounter]37-36-1507AgszbikgBnphumz on above:Problem List clean-up per request of Phys. EHR CmteChronic obstructive pulmonary disease and bronchiectasis (1 source)Bronchitis, not specified as acute or chronicEpisodicDiabetes mellitus without complication (2 sources)Abnormal glucose tolerance test; Translations: [Other abnormal glucose]90-92-4196HdfrppxkHkfadekrkavcp symptoms and ill-defined conditions (1 source)Personal history of urinary (tract) infections; Translations: [PERS HX URINARY TRACT INFECTIONS]Onset: 38-10-6480ZbkwtgsyUglzarxytybig and screening for infectious disease (4 sources)Contact with and (suspected) exposure to other viral communicable diseases; Translations: [Contact with or exposure to other viral diseases] EpisodicInfluenza (1 source)Influenza due to other identified influenza virus with other respiratory manifestationsEpisodicMood disorders (3 sources)Major depressive disorder, single episode, unspecified; Translations: [Bipolar disorder]Onset: 556096-82-9089RqarggtKswdrg and vomiting (1 source)Nausea; Translations: [NAUSEA]Onset: 99-45-5913YwmkjmthHwyhg aftercare (1 source)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; Translations: [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]Onset: 24-45-9267UzgekfwtFhoum aftercare (2 sources)Postoperative visit; Translations: [Encounter for other specified surgical aftercare]15-06-9323JznhvadbInggv complications of (1 source)Obesity complicating , second trimester; Translations: [Obesity complicating , second trimester]Onset: 24-95-0590DmrxplpIfeni complications of (1 source)Obesity complicating , unspecified trimester; Translations: [Obesity complicating , unspecified trimester]Onset: 08-36-0774Cibndnx Other complications of (4 sources)Maternal obesity complicating , childbirth and the puerperium, antepartum; Translations: [Obesity complicating , second trimester]Onset: 898481-77-4417MtkkegiUpkir complications of (1 source)Supervision of elderly multigravida, second trimester; Translations: [Supervision of elderly multigravida, second trimester]Onset: 82-03-8535Bfaampgx Other complications of (1 source)Supervision of other high risk pregnancies, unspecified trimester; Translations: [Supervision of other high risk pregnancies, unspecified trimester]Onset: 29-33-4475JzycfiqzJkeqf complications of (1 source)Supervision of high risk , unspecified, unspecified trimester; Translations: [Supervision of high risk , unspecified, unspecified trimester]Onset: 82-47-9533JaqaymqxIhyif complications of (1 source)Infections of kidney in , unspecified trimester; Translations: [Infections of kidney in , unspecified trimester]Onset: 55-34-9596AtaczlaiRaups female genital disorders (2 sources)Vaginal discharge; Translations: [Other specified noninflammatory disorders of vagina]79-23-7263EtrkwjnuEyome gastrointestinal disorders (1 source)Diarrhea, unspecified; Translations: [DIARRHEA UNSPECIFIED]Onset: 63-02-2853IquwqwotVjoem nervous system disorders (2 sources)H/O: migraine; Translations: [Personal history of other diseases of the nervous system and sense organs]29-40-7680KzvwtefzXnnul nutritional; endocrine; and metabolic disorders (1 source)Obesity, unspecified; Translations: [OBESITY UNSPECIFIED]Onset: 50-17-2545YzpdwfnUpibu nutritional; endocrine; and metabolic disorders (1 source)Body mass index (BMI) 39.0-39.9, adult; Translations: [BODY MASS INDEX BMI 39.0-39.9 ADULT]Onset: 33-38-0930SyxcqjcIoqmt nutritional; endocrine; and metabolic disorders (1 source)Body mass index (BMI) 38.0-38.9, adult; Translations: [BODY MASS INDEX BMI 38.0-38.9 ADULT]Onset: 48-54-8493MtsvqjeButqo nutritional; endocrine; and metabolic disorders (1 source)Body mass index 30+ - obesity; Translations: [Body mass index (BMI) 39.0-39.9, adult]45-80-4755MpghmnfZdsxd screening for suspected conditions (not mental disorders or infectious disease) (6 sources)Patient encounter status; Translations: [Encounter for screening for diabetes mellitus]Onset: 100050-10-9096HwngshmlAznyh upper respiratory infections (3 sources)Acute upper respiratory infection, unspecified; Translations: [Acute pharyngitis, unspecified]EpisodicPrevious (1 source)Maternal care for unspecified type scar from previous delivery; Translations: [Maternal care for unspecified type scar from previous delivery]Onset: 30-87-5027PnmusbekTvruovbu codes; unclassified (1 source)Acquired absence of other specified parts of digestive tract; Translations: [ACQ ABSENCE OTH PART DIGESTV TRACT]Onset: 27-34-4223Zakzokdi Residual codes; unclassified (2 sources)Gestation period, 22 weeks; Translations: [22 weeks gestation of ]16-23-5958RffjygmoJoywhoem codes; unclassified (4 sources)Gestation period, 24 weeks; Translations: [24 weeks gestation of ]51-43-4601HhoylmmsLvkymhll codes; unclassified (1 source)21 weeks gestation of ; Translations: [21 weeks gestation of ]Onset: 20-39-1471FspchmnjTsokvhta codes; unclassified (2 sources)Gestation period, 26 weeks; Translations: [26 weeks gestation of ]18-31-3401QingrdvqDkmigkms codes; unclassified (2 sources)Gestation period, 18 weeks; Translations: [18 weeks gestation of ]12-35-4055VyshugklWsuargrn codes; unclassified (2 sources)Gestation period, 35 weeks; Translations: [35 weeks gestation of ]14-64-1622OihsnvybSisvjjlx codes; unclassified (2 sources)Gestation period, 36 weeks; Translations: [36 weeks gestation of ]78-45-0367RdcpfhjpQhtxmacqq-related disorders (1 source)Nicotine dependence, cigarettes, uncomplicated; Translations: [NICOTINE DEPEND CIGARETTES UNCOMP]Onset: 10-17-5750AbjnrovAchdjnsdqpcv (1 source)PERSONAL HISTORY OF COVID-19; Translations: [PERSONAL HISTORY OF COVID-19]Onset: 14-33-7696Mbowlfvwtnby (1 source)transportOnset: 02-08-2024 Past or Other Problems Problem ClassificationProblemDateDocumented DateEpisodic/ChronicAbdominal pain (20 sources)Unspecified abdominal pain; Translations: [Flank pain]Onset: 89-98-8367RatotqzwAkuulijc or abnormal glucose tolerance complicating ; childbirth; or the puerperium (20 sources)Gestational diabetes mellitus; Translations: [Gestational diabetes mellitus in , unspecified control]Onset: 03-21-2024 Resolved: 223417-35-1543MnhktasfXdliuclrwyge complicating ; childbirth and the puerperium (20 sources)Elevated blood pressure; Translations: [Unspecified maternal hypertension, third trimester]Onset: 05-13-2024 Resolved: 248059-03-6210VpabfdoIkvbd complications of (3 sources)Pyelonephritis in ; Translations: [Infections of kidney in , unspecified trimester]Onset: 887587-59-6272PaulfzjbUliuc complications of (1 source)Multigravida of advanced maternal age; Translations: [Supervision of elderly multigravida, second trimester]92-94-5907UqndcsyvVbrvd complications of (2 sources)Bipolar disorder; Translations: [Other mental disorders complicating , second trimester]Onset: 140025-02-0120JufshhxlXtgwc complications of (2 sources)Supervision of with other poor reproductive or obstetric history, unspecified trimester; Translations: [Supervision of other high-risk ]Onset: 476460-76-1944HfzcktvzCqqzp complications of (1 source)H/O: premature delivery; Translations: [Supervision of other high risk pregnancies, unspecified trimester]75-41-4695KkbwstqcWrxgd and delivery including normal (20 sources)Second trimester ; Translations: [Encounter for supervision of normal , unspecified, second trimester]Onset: 04-03-2024 Resolved: 852578-71-2278BvehffdyRjfaj skin disorders (2 sources)Eruption; Translations: [Rash and other nonspecific skin eruption] 76-08-5569TlxxoushLxxzkifm codes; unclassified (20 sources)Gestation period, 28 weeks; Translations: [28 weeks gestation of ]Onset: 04-03-2024 Resolved: 421574-58-7232HtcxiilgPumbdtho codes; unclassified (20 sources)Gestation period, 33 weeks; Translations: [33 weeks gestation of ]Onset: 05-13-2024 Resolved: 114820-84-5268OpkrsggkNbviiqao codes; unclassified (3 sources)Gestation period, 21 weeks; Translations: [21 weeks gestation of ]73-45-0271GgdlymhxFcljeypk codes; unclassified (2 sources)Nicotine-filled electronic cigarette user; Translations: [Tobacco use]Onset: 324988-02-4033SrohdcmmCyeldzrbhrrk (1 source)Suspected COVID-19 virus infection Z20.822Urinary tract infections (20 sources)Acute cystitis; Translations: [Acute cystitis with hematuria]Onset: 057563-75-4251Bcuzpiji Results Test NameValueInterpretationReference RangeFacilityUrine Cultureon 02-18-2025 Bacteria identified Cx Nom (U)ORGANISM: Escherichia coli (O:ESCCOL) [place] Count >100,000 Aerobic CHUY Charge (NMIC56) SUSCEPTIBILITY ORGANISM: O:ESCCOL ANTIBIOTIC INTERPRETATION CHUY Amikacin S <16 Amoxacillin/K Clavulanate S <8 Ampicillin R >16 Ampicillin/Sulbactam I 1616/8 Aztreonam S <4 Cefazolin S <2 Cefepime [...] RESISTANT TO ALL B-LACTAM DRUGS. PERFORMED BY: [place] [address] PATHOLOGIST TELECOMMUNICATIONS NETWORK ENGINEER CHANCE FRANCISCO M.D.[facility] Physician GroupComment on above: Performed By: #### CUU #### [address] Cultureon 04-28-8617Sjqwjddp identified Cx Nom (U) ORGANISM: Escherichia coli (O:ESCCOL) [place] Count >100,000 Aerobic CHUY Charge (NMIC56) SUSCEPTIBILITY [...] RESISTANT TO ALL B-LACTAM DRUGS. PERFORMED BY: [place] [address] PATHOLOGIST TELECOMMUNICATIONS NETWORK ENGINEER CHANCE FRANCISCO M.D.NormalMemorial Hospital Pembroke Physician GroupComment on above: Performed By: #### CUU #### [place] [address] USAALL CBC WITH AUTO DIFFon 77-86-2156ZKDADKLUS ABSOLUTE AUTO 0NOMS HealthcareBasophils/100 WBC (Bld)0.2 %0.2 - 2.0 %[facility] Eosinophils/100 WBC (Bld)0.6 %Low0.9 - 7.0 %NOM HealthcareErythrocyte distribution width (RBC) [Ratio]13.3 %11.0 - 15.0 %NOMS HealthcareHematocrit (Bld) [Volume fraction]33.2 %Low36.0 - 48.0 %NOM HealthcareHemoglobin (Bld) [Mass/Vol]10.7 g/dLLow12.0 - 16.0 g/dLNOMD HealthcareIMMATURE GRANULOCYTES ABS AUTO0.02NOMS HealthcareImmature granulocytes/100 WBC (Bld)0.2 %0.0 - 0.5 %NOMSt. Louis Va Medical CenterInterpretation and review of laboratory resultsAbnormalNOMD Healthcare LYMPHOCYTES ABSOLUTE AUTO2.7NOMS HealthcareLymphocytes/100 WBC (Bld)28.8 %20.5 - 60.0 %NOMS [facility]itt[facility] Medical CenterMCH (RBC) [Entitic mass]28.7 pg26.7 - 34.0 pgWright Memorial HospitalHC (RBC) [Mass/Vol]32.2 g/dL29.9 - 35.2 g/dLWright Memorial HospitalV (RBC) [Entitic vol]89 fL81.0 - 99.[address]LM[address] JosephMONOCYTES ABSOLUTE AUTO0.6NOMS HealthcareMonocytes/100 WBC (Bld)6.2 %1.7 - 12.0 %[facility]. JosephNEUTROPHILS ABSOLUTE AUTO5.9NOMS HealthcareNeutrophils/100 WBC (Bld)64 %43.0 - 75.0 %[facility] St. JosephPlatelet mean volume (Bld) [Entitic vol]11.7 fL9.5 - 13.[address]LMosaic [address] Care [address] JosephTBH EO #0.1NOMS [facility] [id number] [facility] RBC3.73LowNOMS [facility] WBC9.3NOMineral Area Regional Medical CenterCLINISYNCNOMS [facility] Ritt[facility] Medical CenterALL CBC WITH AUTO DIFFon 69-89-5613IOCUCKCQX ABSOLUTE UXPU2VCPMMineral Area Regional Medical CenterBasophils/100 WBC (Bld) 0.1 %Low0.2 - 2.0 %[facility]. JosephEosinophils/100 WBC (Bld)0.6 %Low0.9 - 7.0 % [facility] St. JosephErythrocyte distribution width (RBC) [Ratio]13.2 %11.0 - 15.0 % [facility] St. JosephHematocrit (Bld) [Volume fraction]35.4 %Low36.0 - 48.0 %[facility] St. JosephHemoglobin (Bld) [Mass/Vol]11.7 g/dLLow12.0 - 16.0 g/dLMosaic Life Care at St. Joseph IMMATURE GRANULOCYTES ABS AUTO0.03NOMineral Area Regional Medical CenterImmature granulocytes/100 WBC (Bld)0.4 %0.0 - 0.5 %[facility]. JosephInterpretation and review of laboratory resultsAbnormalMosaic Life Care at St. JosephLYMPHOCYTES ABSOLUTE AUTO1.7NOMS [facility] Lymphocytes/100 WBC (Bld)24 %20.5 - 60.0 %Wright Memorial HospitalH (RBC) [Entitic mass]28.7 pg26.7 - 34.0 pgWright Memorial HospitalHC (RBC) [Mass/Vol]33.1 g/dL29.9 - 35.2 g/dLNOMD HealthcareMCV (RBC) [Entitic vol]87 fL81.0 - 99.0 fLNOMS HealthcareMONOCYTES ABSOLUTE AUTO0.3NOMS HealthcareMonocytes/100 WBC (Bld)4.4 % 1.7 - 12.0 %NOMS HealthcareNEUTROPHILS ABSOLUTE AUTO4.9N[facility]S Healthcare Neutrophils/100 WBC (Bld)70.5 %43.0 - 75.0 %NOMS HealthcarePlatelet mean volume (Bld) [Entitic vol]12 fL9.5 - 13.5 fLNOMS HealthcareTBH EO #0NOMS HealthcareTBH [id number] HealthcareTBH RBC4.07LowNOMS HealthcareTBH CIP9HKVF Healthcare CLINISYNCNOMS HealthcareUS OB BPP W NON-STRESSon 98-59-8384BmbR[place] [address] Ultrasound Report Signed Patient: PROSPER MCCLENDON MR#: [id number] : 1985 Acct:[id number] Age/Sex: 39 / F ADM Date: 05/31/24 Loc: [facility] 250-[address]: Liza Meraz Ordering Physician: Liza Meraz Date of Service: 05/31/24 Procedure(s): US OB BPP w non-stress Accession Number(s): [id number] cc: Liza Meraz; KIMBERLYN XIE [place] [address] Patient Name: PROSPER MCCLENDON MRN: [id number] date: 1985 Sex: F Assigned Patient Location: [facility] Current Patient Location: [facility] Accession/Order Number: [id number] Exam Date: 05/31/2024 13:15 Report Date: 05/31/2024 [...] By: Nato Avelar M.D. Signed By: 05/31/24 1357 DD/ 1355 TD/TT: Lav Crewman:MASTERHRadiology, Radiologist, - 05/31/2024 [place] [address] Ultrasound Report Signed Patient: PROSPER MCCLENDON MR#: [id number] : 1985 Acct:[id number] Age/Sex: 39 / F ADM Date: 05/31/24 Loc: [place] [address]: Liza Meraz Ordering Physician: Liza Meraz Date of Service: 05/31/24 Procedure(s): US OB BPP w non-stress Accession Number(s): [id number] cc: Liza Meraz; KIMBERLYN XIE The [place] [id number] Patient Name: PROSPER MCCLENDON MRN: [id number] date: 1985 Sex: F Assigned Patient Location: [facility] Current Patient Location: [facility] Accession/Order Number: [id number] Exam Date: 05/31/2024 13:15 Report Date: 05/31/2024 [...] By: Nato Avelar M.D. Signed By: 05/31/24 1357 DD/ 54 TD/TT: Lav Crewman: MARIA DOLORES HealthcareRadiology Study observation (narrative)NOMS HealthcareUS OB BPP W NON-STRESSOrdered By: Radiologist Radiology on 46-95-4942KSFA Healthcare Work Phone: US OB BPP W NON-STRESSon 75-47-4022[place]acR[place], [place] [address] Ultrasound Report Signed Patient: PROSPER MCCLENDON MR#: [id number] : 1985 Acct:[id number] Age/Sex: 39 / F ADM Date: Loc: [facility] 250-[address]: Johnathan Recinos D.O. Ordering Physician: Johnathan Recinos D.O. Date of Service: 05/29/24 Procedure(s): US OB BPP w non-stress Accession Number(s): [id number] cc: KIMBERLYN XIE ; Johnathan Recinos D.O. The [place] [phone] Patient Name: PROSPER MCCLENDON MRN: [id number] date: 1985 Sex: F Assigned Patient Location: [facility] Current Patient Location: Accession/Order Number: [id number] Exam Date: 05/29/2024 15:40 Report Date: 05/30/2024 [...] M.D. Signed By: 05/30/24621 DD/ 8 TD/TT: Lav Crewman:TBHRadiology, Radiologist, - 05/30/2024 [place] [address] Ultrasound Report Signed Patient: PROSPER MCCLENDON MR#: [id number] : 1985 Acct:[id number] Age/Sex: 39 / F ADM Date: Loc: [facility] 250-[address]: Johnathan Recinos D.O. Ordering Physician: Johnathan Recinos D.O. Date of Service: 05/29/24 Procedure(s): US OB BPP w non-stress Accession Number(s): [id number] cc: KIMBERLYN XIE ; Johnathan Recinos D.O. The [place] [phone] Patient Name: PROSPER MCCLENDON MRN: [id number] date: 1985 Sex: F Assigned Patient Location: [facility] Current Patient Location: Accession/Order Number: [id number] Exam Date: 05/29/2024 15:40 Report Date: 05/30/2024 [...] M.D. Signed By: 05/30/24621 DD/ 8 TD/TT: Lav Crewman: MARIA DOLORES HealthcareRadiology Study observation (narrative)[facility] HealthcareUS OB BPP W NON-STRESSOrdered By: Radiologist Radiology on 54-34-6139QTKWMosaic Life Care at St. Joseph Work Phone: all CBC WITH AUTO DIFFon 37-79-2705UFMMIDRRS ABSOLUTE HTOU6MPPT HealthcareBasophils/100 WBC (Bld)0.3 %0.2 - 2.0 %NOM Healthcare Eosinophils/100 WBC (Bld)0.5 %Low0.9 - 7.0 %NOM HealthcareErythrocyte distribution width (RBC) [Ratio]13.2 %11.0 - 15.0 %NOM HealthcareHematocrit (Bld) [Volume fraction]33.4 %Low36.0 - 48.0 %[facility] HealthcareHemoglobin (Bld) [Mass/Vol]10.9 g/dLLow12.0 - 16.0 g/dLNOMD HealthcareIMMATURE GRANULOCYTES ABS AUTO0.03NOMS HealthcareImmature granulocytes/100 WBC (Bld)0.4 %0.0 - 0.5 %[facility] HealthcareInterpretation and review of laboratory resultsAbnormalNOMineral Area Regional Medical Center LYMPHOCYTES ABSOLUTE AUTO1.5NOMS HealthcareLymphocytes/100 WBC (Bld)20.7 %20.5 - 60.0 %[facility] St. JosephMCH (RBC) [Entitic mass]29.1 pg26.7 - 34.0 pgNOMineral Area Regional Medical CenterMCHC (RBC) [Mass/Vol]32.6 g/dL29.9 - 35.2 g/dLMosaic Life Care at St. JosephMCV (RBC) [Entitic vol]89.1 fL81.0 - 99.0 fLNOMD HealthcareMONOCYTES ABSOLUTE AUTO0.4NOMS HealthcareMonocytes/100 WBC (Bld)5.8 %1.7 - 12.0 %NOM HealthcareNEUTROPHILS ABSOLUTE AUTO5.4NOMS HealthcareNeutrophils/100 WBC (Bld)72.3 %43.0 - 75.0 %NOMS HealthcarePlatelet mean volume (Bld) [Entitic vol]11.2 fL9.5 - 13.5 fLNOMS HealthcareTBH EO #0NOMS HealthcareTBH ACM284MHIR HealthcareTBH RBC3.75LowNOMS HealthcareTBH WBC7.4NOMS HealthcareCLINISYNCNOMS HealthcareUrinalysis macro (dipstick) panel (U)on 15-98-5054Jedfknqjn, UANegativeNegative - 4(70) +++ mg/dL NOMS HealthcareBlood, UANegativeNegative - 50 Slick/mcLNOMS HealthcareClarity, UA ClearNOMS HealthcareColor, UAYellowNOMS HealthcareGlucose, UANegativeNegative - 2000(110) ++++ mg/dLNOMS HealthcareInterpretation and review of laboratory resultsNormalNOMS HealthcareKetones, UANegativeNegative - 160(16) ++++ mg/dLNOMS HealthcareLeukocytes, UANegativeNegative - 500+++ Mira/mcLNOMS HealthcareNitrite, UANegativeNegative - PositiveNOMS HealthcarepH, UA65 - 9NOMS HealthcareProtein, UANegativeNegative - 2000(20) ++++ mg/dLNOMS HealthcareSpec Grav, UA1.0151 - 1.03NOMS HealthcareUrobilinogen, UA0.20.2 - 12 mg/dLNOMS HealthcareNOMS HealthcareUS OB BPP W NON-STRESSon 19-28-6883[place] [address] Ultrasound Report Signed Patient: PROSPER MCCLENDON MR#: [id number] : 1985 Acct:[id number] Age/Sex: 39 / F ADM Date: 05/24/24 Loc: [facility] 250-[address]: Liza Meraz Ordering Physician: Liza Meraz Date of Service: 05/24/24 Procedure(s): US OB BPP w non-stress Accession Number(s): [id number] cc: Liza Meraz; KIMBERLYN XIE [address] [address] Patient Name: PROSPER MCCLENDON MRN: [id number] date: 1985 Sex: F Assigned Patient Location: [facility] Current Patient Location: [facility] Accession/Order Number: [id number] Exam Date: 05/24/2024 13:01 Report Date: 05/24/2024 13:34 At the request of: LIZA MERAZ Procedure: [...] 8 Electronically authenticated by: NATO AVELAR Date: 05/24/2024 13:34 Dictated By: Nato Avelar M.D. Signed By: 05/24/24 1337 DD/ 1334 TD/TT: Lav Crewman:MASTERHRadiology, Radiologist, - 05/24/2024 [place] [address] Ultrasound Report Signed Patient: PROSPER MCCLENDON MR#: [id number] : 1985 Acct:[id number] Age/Sex: 39 / F ADM Date: 05/24/24 Loc: [facility] 250-[address]: Liza Meraz Ordering Physician: Liza Meraz Date of Service: 05/24/24 Procedure(s): US OB BPP w non-stress Accession Number(s): [id number] cc: Liza Meraz; KIMBERLYN XIE The [place] [phone] Patient Name: PROSPER MCCLENDON MRN: [id number] date: 1985 Sex: F Assigned Patient Location: [facility] Current Patient Location: [facility] Accession/Order Number: [id number] Exam Date: 05/24/2024 13:01 Report Date: 05/24/2024 13:34 At the request of: LIZA MERAZ Procedure: [...] 8 Electronically authenticated by: NATO AVELAR Date: 05/24/2024 13:34 Dictated By: Nato Avelar M.D. Signed By: 05/24/24 1332 DD/ 1334 TD/TT: Lav Crewman: NOMDomingo HealthcareRadiology Study observation (narrative)NOMS HealthcareUS OB BPP W NON-STRESSOrdered By: Radiologist Radiology on 23-57-6801IVSD Healthcare Work Phone: Urinalysis macro (dipstick) panel (U)on 05-22-2024 Bilirubin, UANegativeNegative - 4(70) +++ mg/dLNOMS HealthcareBlood, UANegative Negative - 50 Slick/mcLNOMS HealthcareClarity, UAClearNOMS HealthcareColor, UA YellowNOMS HealthcareGlucose, UANegativeNegative - 2000(110) ++++ mg/dLNOMS HealthcareInterpretation and review of laboratory resultsAbnormalNOMS Healthcare Ketones, UANegativeNegative - 160(16) ++++ mg/dLNOMS HealthcareLeukocytes, UA TraceNegative - 500+++ Mira/mcLNOMS HealthcareNitrite, UANegativeNegative - PositiveNOMS HealthcarepH, UA65 - 9NOMS HealthcareProtein, UATraceNegative - 2000(20) ++++ mg/dLNOMS HealthcareSpec Grav, UA1.0151 - 1.03NOMS Healthcare Urobilinogen, UA0.20.2 - 12 mg/dLNOMD HealthcareNOMD HealthcareUS OB BPP W NON-STRESSon 62-64-5200[address] [address] Ultrasound Report Signed Patient: PROSPER MCCLENDON MR#: [id number] : 1985 Acct:[id number] Age/Sex: 39 / F ADM Date: 05/17/24 Loc: [facility] 250-[address]: Johnathan Recinos D.O. Ordering Physician: Liza Merza Date of Service: 05/17/24 Procedure(s): US OB BPP w non-stress Accession Number(s): [id number] cc: Liza Meraz; KIMBERLYN XIE [address] [address] Patient Name: PROSPER MCCLENDON MRN: [id number] date: 1985 Sex: F Assigned Patient Location: [facility] Current Patient Location: [facility] Accession/Order Number: [id number] Exam Date: 05/17/2024 13:11 Report Date: 05/17/2024 13:55 At the request of: LIZA MERAZ [...] biophysical profile score: 8 Electronically authenticated by: CYNDI SOLIS Date: 05/17/2024 13:55 Dictated By: Cyndi Solis M.D. Signed By: 05/17/24 1358 DD/ 54 TD/TT: Lav Crewman:TBHRadiology, Radiologist, - 05/17/2024 [place] [address] Ultrasound Report Signed Patient: PROSPER MCCLENDON MR#: [id number] : 1985 Acct:[id number] Age/Sex: 39 / F ADM Date: 05/17/24 Loc: [facility] 250-[address]: Johnathan Rceinos D.O. Ordering Physician: Liza Meraz Date of Service: 05/17/24 Procedure(s): US OB BPP w non-stress Accession Number(s): [id number] cc: Liza Meraz; KIMBERLYN XIE [place] [phone] Patient Name: PROSPER MCCLENDON MRN: [id number] date: 1985 Sex: F Assigned Patient Location: [facility] Current Patient Location: [facility] Accession/Order Number: [id number] Exam Date: 05/17/2024 13:11 Report Date: 05/17/2024 13:55 At the request of: LIZA MERAZ [...] biophysical profile score: 8 Electronically authenticated by: CYNDI SOLIS Date: 05/17/2024 13:55 Dictated By: Cyndi Solis M.D. Signed By: 05/17/24 1358 DD/ 1355 TD/TT: Lav Crewman: MARIA DOLORES HealthcareRadiology Study observation (narrative)MARIA DOLORES HealthcareUS OB BPP W NON-STRESSOrdered By: Radiologist Radiology on 13-44-4484XTDC Healthcare Work Phone: US OB CERVICAL LENGTHon 08-25-8804SbrR[place] [address] Ultrasound Report Signed Patient: PROSPER MCCLENDON MR#: [id number] : 1985 Acct:[id number] Age/Sex: 39 / F ADM Date: Loc: [facility] 254-[address]: Johnathan Recinos D.O. Ordering Physician: Johnathan Recinos D.O. Date of Service: 05/13/24 Procedure(s): US OB cervical length Accession Number(s): [id number] cc: KIMBERLYN XIE ; Johnathan Recinos D.O. The [address] [address] Patient Name: PROSPER MCCLENDON MRN: [id number] date: 1985 Sex: F Assigned Patient Location: [facility] Current Patient Location: [facility] Accession/Order Number: [id number] Exam Date: 05/13/2024 16:53 Report Date: 05/13/2024 18:01 At the request of: JOHNATHAN RECINOS Procedure: US OB cervical length EXAM: [...] measures 3.7 cm. Electronically authenticated by: NATO CAAL Date: 05/13/2024 18:01 Dictated By: Nato Caal M.D. Signed By: 05/13/241802 DD/ 00 TD/TT: Lav Crewman:TAYAadiology, Radiologist, - 05/13/[address] [address] Ultrasound Report Signed Patient: PROSPER MCCLENDON MR#: [id number] : 1985 Acct:[id number] Age/Sex: 39 / F ADM Date: Loc: [facility] 254-[address]: Johnathan Recinos D.O. Ordering Physician: Johnathan Recinos D.O. Date of Service: 05/13/24 Procedure(s): US OB cervical length Accession Number(s): [id number] cc: KIMBERLYN XIE ; Johnathan Recinos D.O. [place] [phone] Patient Name: PROSPER MCCLENDON MRN: [id number] date: 1985 Sex: F Assigned Patient Location: [facility] Current Patient Location: [facility] Accession/Order Number: [id number] Exam Date: 05/13/2024 16:53 Report Date: 05/13/2024 18:01 At the request of: JOHNATHAN RECINOS Procedure: US OB cervical length EXAM: [...] measures 3.7 cm. Electronically authenticated by: NATO CAAL Date: 05/13/2024 18:01 Dictated By: Nato Caal M.D. Signed By: 05/13/241802 DD/ 00 TD/TT: Lav Crewman: NOMDomingo HealthcareRadiology Study observation (narrative)NOMS HealthcareUS OB CERVICAL LENGTHOrdered By: Radiologist Radiology on 66-41-3987JVZI Healthcare Work Phone: US OB BPP W NON-STRESSon 06-32-2221E[address] [address] Ultrasound Report Signed Patient: PROSPER MCCLENDON MR#: [id number] : 1985 Acct:[id number] Age/Sex: 39 / F ADM Date: Loc: [facility] Attending Dr: Johnathan Recinos D.O. Ordering Physician: Johnathan Recinos D.O. Date of Service: 05/13/24 Procedure(s): US OB BPP w non-stress Accession Number(s): [id number] cc: KIMBERLYN XIE ; Johnathan Recinos D.O. The [place] [phone] Patient Name: PROSPER MCCLENDON MRN: [id number] date: 1985 Sex: F Assigned Patient Location: [facility] Current Patient Location: [facility] Accession/Order Number: [id number] Exam Date: 05/13/2024 16:53 Report Date: 05/13/2024 17:59 At the request of: JOHNATHAN RECINOS Procedure: [...] Biophysical profile 8/8. Electronically authenticated by: NATO CAAL Date: 05/13/2024 17:59 Dictated By: Nato Caal M.D. Signed By: 05/13/24 1802 DD/ 1759 TD/TT: Lav Crewman:TAYAadiology, Radiologist, - 05/13/2024 [place] [address] Ultrasound Report Signed Patient: PROSPER MCCLENDON MR#: [id number] : 1985 Acct:[id number] Age/Sex: 39 / F ADM Date: Loc: [facility] [address]: Johnathan Recinos D.O. Ordering Physician: Johnathan Recinos D.O. Date of Service: 05/13/24 Procedure(s): US OB BPP w non-stress Accession Number(s): [id number] cc: KIMBERLYN XIE ; Johnathan Recinos D.O. [place] [phone] Patient Name: PROSPER MCCLENDON MRN: [facility]:[id number] date: 1985 Sex: F Assigned Patient Location: [facility] Current Patient Location: [facility] Accession/Order Number: [id number] Exam Date: 05/13/2024 16:53 Report Date: 05/13/2024 17:59 At the request of: JOHNATHAN RECINOS Procedure: [...] Biophysical profile 8/8. Electronically authenticated by: NATO CAAL Date: 05/13/2024 17:59 Dictated By: Nato Caal M.D. Signed By: 05/13/24 6940 DD/ 170 TD/TT: Lav Crewman: MARIA DOLORES HealthcareRadiology Study observation (narrative)NOMS HealthcareUS OB BPP W NON-STRESSOrdered By: Radiologist Radiology on 09-51-4779QIEF Healthcare Work Phone: Urinalysis macro (dipstick) panel (U)on 05-13-2024 Bilirubin, UANegativeNegative - 4(70) +++ mg/dLNOMS HealthcareBlood, UAPositive Negative - 50 Slick/mcLNOMS HealthcareComment on above:traceClarity, UAClearNOMS HealthcareColor, UAYellowNOMS HealthcareGlucose, UANegativeNegative - 1999(110) ++++ mg/dLNOMS HealthcareInterpretation and review of laboratory resultsAbnormal NOMS HealthcareKetones, UANegativeNegative - 160(16) ++++ mg/dLNOMS Healthcare Leukocytes, UANegativeNegative - 500+++ Mira/mcLNOMS HealthcareNitrite, UA NegativeNegative - PositiveNOMS HealthcarepH, UA6.55 - 9NOMS HealthcareProtein, UANegativeNegative - 1999(20) ++++ mg/dLNOMS HealthcareSpec Grav, UA1.011 - 1.03 NOMS HealthcareUrobilinogen, UA0.20.2 - 12 mg/dLNOMS HealthcareNOMS HealthcareUS OB FOLLOW UP TRANSABDOMINAL APPROACHon 26-76-4094SE OB FOLLOW UP TRANSABDOMINAL APPROACHTITLE OF EXAM: OB Ultrasound: REASON FOR EXAM: GDM. COMPARISON: None. TECHNIQUE: Grayscale and M-mode Doppler imaging is performed. 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 YELLOW YELLOWNOMS HealthcareGLUCOSE URINE UANegativeNEGATIVE mg/dLNOMS Healthcare Ketones Ql (U)NegativeNEGATIVE mg/dLNOMS HealthcareLeukocyte esterase Test strip Ql (U)NegativeNEGATIVENOMS HealthcareNITRITE URINENegativeNEGATIVENOMS HealthcarepH (U)6.0 [pH]5.0 - 9.0NOMS HealthcarePROTEIN URINENegativeNEG/TRACE mg/dLNOMS HealthcareSPECIFIC GRAVITY URINE1.0201.005 - 1.025NOMS HealthcareURINE MICROSCOPIC INDICATEDNONOMS HealthcareUROBILINOGEN URINE0.2 EU/dL0.2 - 1.0 EU/dLNOMS HealthcareCLINISYNCNOMS HealthcareUrine Cultureon 73-36-7152Yizpecwz identified Cx Nom (U)No Growth 2 Days PERFORMED BY: [facility] [address] [place] [address] PATHOLOGIST TELECOMMUNICATIONS NETWORK ENGINEER SYD SHEFFIELD M.D.NormalMemorial Hospital Pembroke Physician GroupComment on above: Performed By: #### CUU #### [facility] [address] [place] [address] USARECURRENT VAGINITIS (HTRX)on 55-44-7410VZCEYAEWW VAGINAE0 NOMS HealthcareATOPOBIUM VAGINAENot detectedNOMS HealthcareBVAB 2,3 (BACTERIAL VAGINOSIS ASSOCIATED BACTERIA 2, 3); MOBILUNCUS HPO0ESHB HealthcareBVAB 2,3 (BACTERIAL VAGINOSIS ASSOCIATED BACTERIA 2, 3); MOBILUNCUS SPPNot detectedNOMS HealthcareCANDIDA ALBICANS, PARAPSILOSIS, [id number] HealthcareCANDIDA ALBICANS, PARAPSILOSIS, TROPICALISNot detectedNOMS HealthcareCANDIDA GLABRATA0 NOMS HealthcareCANDIDA GLABRATANot detectedNOMS HealthcareCANDIDA YUXUYM0ZBCF HealthcareCANDIDA KRUSEINot detectedNOMS HealthcareCHLAMYDIA NVDCXVUEZMF6HKFO HealthcareCHLAMYDIA TRACHOMATISNot detectedNOMS HealthcareGARDNERELLA VAGINALIS0 NOMS HealthcareGARDNERELLA VAGINALISNot detectedNOMS HealthcareMEGASPHAERA (TYPES 1, 2)0NOMS HealthcareMEGASPHAERA (TYPES 1, 2)Not detectedNOMS Healthcare MYCOPLASMA [id number] HealthcareMYCOPLASMA GENITALIUMNot detectedNOMineral Area Regional Medical CenterNEISSERIA [id number] HealthcareNEISSERIA GONORRHOEAENot detected NOMSt. [facility] Va Medical CenterTRICHOMONAS [id number] HealthcareTRICHOMONAS VAGINALISNot detectedNOMD HealthcareNOMD HealthcareALL BUNon 28-03-5034Wczz nitrogen [Mass/Vol]7.0 mg/dL7.0 - 18.0 mg/dLMosaic Life Care at St. JosephALL CBC WITH AUTO DIFFon [id number] ABSOLUTE AUTO0.0NOMineral Area Regional Medical CenterBasophils/100 WBC (Bld)0.2 % 0.2 - 2.0 %NOMSt. Louis Va Medical CenterEosinophils/100 WBC (Bld)0.2 %Low0.9 - 7.0 %[facility] St. JosephErythrocyte distribution width (RBC) [Ratio]13.4 %11.0 - 15.0 %[facility] JosephHematocrit (Bld) [Volume fraction]34.8 %Low36.0 - 48.0 %[facility] JosephHemoglobin (Bld) [Mass/Vol]11.5 g/dLLow12.0 - 16.0 g/dLMosaic [facility] at St. Joseph IMMATURE GRANULOCYTES ABS AUTO0.02NOMineral Area Regional Medical CenterImmature granulocytes/100 WBC (Bld)0.2 %0.0 - 0.5 %[facility] JosephInterpretation and review of laboratory resultsAbnormalNOMineral Area Regional Medical CenterLYMPHOCYTES ABSOLUTE AUTO2.0NOMS [facility] Lymphocytes/100 WBC (Bld)20.5 %20.5 - 60.0 %[facility] HospitalH (RBC) [Entitic mass]30.4 pg26.7 - 34.0 pgNOSaint Luke's Health SystemHC (RBC) [Mass/Vol]33.0 g/dL29.9 - 35.2 g/dLWright Memorial HospitalV (RBC) [Entitic vol]92.1 fL81.0 - 99.[address] JosephMONOCYTES ABSOLUTE AUTO0.5NOMineral Area Regional Medical CenterMonocytes/100 WBC (Bld)4.8 % 1.7 - 12.0 %[facility] JosephNEUTROPHILS ABSOLUTE AUTO7.4HighNOMineral Area Regional Medical Center Neutrophils/100 WBC (Bld)74.1 %43.0 - 75.0 %NOMS HealthcarePlatelet mean volume (Bld) [Entitic vol]11.2 fL9.5 - 13.5 fLNOMD HealthcareTB EO #0.0NOMS Healthcare TBH [id number] [facility] CenterTB RBC3.78LowNOMS [facility] CenterTB WBC9.9NOMD Healthcare CLINISYNCNOSaint Joseph Hospital of KirkwoodHP LIVER PANELon 60-58-7593Ewtjlkj [Mass/Vol]2.7 g/dL Low3.4 - 5.0 g/dLMosaic Life Care at St. JosephALBUMIN GLOBULIN RATIO0.8NOMineral Area Regional Medical CenterALP [Catalytic activity/Vol]105 U/L46 - 116 U/LNOMS HealthcareALT [Catalytic activity/Vol]14 U/L14 - 59 U/LNOMS HealthcareAST [Catalytic activity/Vol]11 U/L Low15 - 37 U/LNOMS HealthcareBilirubin [Mass/Vol]0.2 mg/dL0.2 - 1.0 mg/dLNOMineral Area Regional Medical CenterBilirubin.indirect [Mass/Vol]0.1 mg/dL0.0 - 0.2 mg/dLMosaic Life Care at St. Joseph Globulin (S) [Mass/Vol]3.6 g/dLDAVIS [facility] HealthcareInterpretation and review of laboratory resultsAbnormalDAVIS HOSPITAL AND [facility]ENTER HealthcareProtein [Mass/Vol]6.3 g/dLLow6.4 - 8.2 g/dLMosaic Life Care at St. JosephCLINISYNCNLakeland Regional HospitalNo Panel Informationon 04-03-2024 Interpretation and review of laboratory resultsAbnormBradford Regional Medical CenterCLINISYNC [facility] HealthcareCLINISYNMcLeod Regional Medical CenterTB CREATININEon 02-29-2851Sbuqkbevkn [Mass/Vol]0.52 mg/dLLow0.55 - 1.02 mg/dLNOMineral Area Regional Medical CenterGFR/1.73 sq M.predicted CKD-EPI (S/P/Bld) [Vol rate/Area]>60>=60 mL/min/1.73m [address] [place] [address] Interpretation and review of laboratory resultsAbnormBradford Regional Medical CenterTB EGFR- NON AF MAURITANIAN>60>=60 mL/min/1.73m 2NLakeland Regional HospitalTB UA (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 IND.on 98-38-4300SQIADBZGZ URINENegativeNEGATIVEMosaic Life Care at St. Joseph BLOOD URINENegativeNEGATIVENOMS HealthcareClarity (U)CLEARCLEARNOMD Healthcare Color (U)LT. YELLOWYELLOWNOMD HealthcareGLUCOSE URINE UANegativeNEGATIVE mg/dL NOMS HealthcareKetones Ql (U)NegativeNEGATIVE mg/dLNOMD HealthcareLeukocyte esterase Test strip Ql (U)TRACEAbnormalNEGATIVENOMS HealthcareNITRITE URINE NegativeNEGATIVENOMD HealthcarepH (U)6.5 [pH]5.0 - 9.0NOMD HealthcarePROTEIN URINENegativeNEG/TRACE mg/dLNOMD HealthcareSPECIFIC GRAVITY URINE1.0151.005 - 1.025NOMD HealthcareURINE MICROSCOPIC INDICATEDYESNOMD HealthcareUROBILINOGEN URINE0.2 EU/dL0.2 - 1.0 EU/dLNOMineral Area Regional Medical CenterTB URINE MICROSCOPIC ONLYon 12-53-9089FVRVDCRT URINESMALLAbnormalNONE SEEN #/HPFNOMS HealthcareCAST SEEN? NONE SEENNONE SEEN #/LPFNOMD HealthcareCRYSTALS SEEN?None SeenNone Seen #/HPF NOMS HealthcareMUCUS URINENONE SEENNONE SEENNOMineral Area Regional Medical CenterSQUAMOUS EPITHELIAL CELL URINEFEWAbnormalNONE/RARE #/LPFNOMD HealthcareTBH RBC0-2NOMS HealthcareTBH WBC2-5AbnormalNONE SEEN #/HPFNOMD HealthcareTRANSITIONAL EPI CELLS URINERARE AbnormalNONE SEEN #/LPFNOMD HealthcareURINE CULTURE INDICATEDYESNOMD Healthcare US OB GROWTHon 22-21-6572Sit[place] [address] Ultrasound Report Signed Patient: PROSPER MCCLENDON MR#: [id number] : 1985 Acct:[id number] Age/Sex: 38 / F ADM Date: 04/03/24 Loc: RAD Attending Dr: Johnathan Recinos D.O. Ordering Physician: Johnathan Recinos D.O. Date of Service: 04/03/24 Procedure(s): US OB growth Accession Number(s): [id number] cc: KIMBERLYN XIE ; Johnathan Recinos D.O. The [address] [address] Patient Name: PROSPER MCCLENDON MRN: [id number] date: 1985 Sex: F Assigned Patient Location: RAD Current Patient Location: RAD Accession/Order Number: [id number] Exam Date: 04/03/2024 12:40 Report Date: 04/03/2024 13:17 At the request of: JOHNATHAN RECINOS Procedure: US OB growth EXAMINATION: US [...] Normal interval growth Electronically authenticated by: NATO AVELAR Date: 04/03/2024 13:17 Dictated By: Nato Avelar M.D. Signed By: 04/03/24 1320 DD/ 1317 TD/TT: Lav Crewman:TBHRadiology, Radiologist, - 04/03/2024 [place] [address] Ultrasound Report Signed Patient: PROSPER MCCLENDON MR#: [id number] : 1985 Acct:[id number] Age/Sex: 38 / F ADM Date: 04/03/24 Loc: RAD Attending Dr: Johnathan Recinos D.O. Ordering Physician: Johnathan Recinos D.O. Date of Service: 04/03/24 Procedure(s): US OB growth Accession Number(s): [id number] cc: KIMBERLYN XIE ; Johnathan Recinos D.O. [place] [id number] Patient Name: PROSPER MCCLENDON MRN: [facility]:[id number] date: 1985 Sex: F Assigned Patient Location: RAD Current Patient Location: RAD Accession/Order Number: [id number] Exam Date: 04/03/2024 12:40 Report Date: 04/03/2024 13:17 At the request of: JOHNATHAN RECINOS Procedure: US OB growth EXAMINATION: US [...] Normal interval growth Electronically authenticated by: NATO AVELAR Date: 04/03/2024 13:17 Dictated By: Nato Avelar M.D. Signed By: 04/03/24 1320 DD/ 1317 TD/TT: Lav Crewman: NOMDomingo HealthcareRadiology Study observation (narrative)NOMS HealthcareUS OB GROWTHOrdered By: Radiologist Radiology on 38-17-5835YQRB Healthcare Work Phone: Urinalysis macro (dipstick) panel (U)on 04-03-2024 Bilirubin, UANegativeNegative - 4(70) +++ mg/dLNOMS HealthcareBlood, UANegative Negative - 50 Slick/mcLNOMS HealthcareClarity, UACloudyNOMS HealthcareColor, UA YellowNOMD HealthcareGlucose, UA1+Negative - 2000(110) ++++ mg/dLDAVIS [facility] Healthcare Comment on above:100mg/dLInterpretation and review of laboratory resultsAbnormal [facility] HealthcareKetones, UANegativeNegative - 160(16) ++++ mg/dLDAVIS [facility]OS[facility]ITAL [facility] Healthcare Leukocytes, UATraceNegative - 500+++ Mira/mcLNOMD HealthcareNitrite, UANegative Negative - PositiveNOMD HealthcarepH, UA65 - 9NOMD HealthcareProtein, UANegative Negative - 2000(20) ++++ mg/dLNOMD HealthcareSpec Grav, UA1.011 - 1.03NOMD HealthcareUrobilinogen, UA0.20.2 - 12 mg/dLUniversity Health [facility]wood [facility] HealthcareALL CBC WITH AUTO DIFFon 00-52-0718YDGNHCQKV ABSOLUTE HZFV4DALVMineral Area Regional Medical CenterBasophils/100 WBC (Bld)0.1 %Low0.2 - 2.0 %[facility] St. JosephEosinophils/100 WBC (Bld)0.5 %Low0.9 - 7.0 %[facility] St. JosephErythrocyte distribution width (RBC) [Ratio]13.9 %11.0 - 15.0 %[facility] HealthcareHematocrit (Bld) [Volume fraction]35.2 %Low36.0 - 48.0 % [facility]. JosephHemoglobin (Bld) [Mass/Vol]11.5 g/dLLow12.0 - 16.0 g/dLMosaic Life Care at St. JosephIMMATURE GRANULOCYTES ABS AUTO0.05HighMosaic Life Care at St. JosephImmature granulocytes/100 WBC (Bld)0.6 %High0.0 - 0.5 %[facility]. JosephInterpretation and review of laboratory resultsAbnormalMosaic Life Care at St. JosephLYMPHOCYTES ABSOLUTE AUTO1.9 NOMSt. Louis Va Medical CenterLymphocytes/100 WBC (Bld)22.9 %20.5 - 60.0 %[facility]right Memorial HospitalH (RBC) [Entitic mass]30.5 pg26.7 - 34.0 pgWright Memorial HospitalHC (RBC) [Mass/Vol] 32.7 g/dL29.9 - 35.2 g/dLMosaic Life Care at St. JosephMCV (RBC) [Entitic vol]93.4 fL81.0 - 99.0 fLNOMS HealthcareMONOCYTES ABSOLUTE AUTO0.3NOMS HealthcareMonocytes/100 WBC (Bld)3.3 %1.7 - 12.0 %NOMS HealthcareNEUTROPHILS ABSOLUTE AUTO6.1NOMS Healthcare Neutrophils/100 WBC (Bld)72.6 %43.0 - 75.0 %NOMS HealthcarePlatelet mean volume (Bld) [Entitic vol]10.5 fL9.5 - 13.5 fLNOMS HealthcareTBH EO #0NOMS Healthcare TBH EVM013PAPS HealthcareTBH RBC3.77LowNOMS HealthcareTBH WBC8.4NOMS Healthcare CLINISYNCNOMS HealthcareUrinalysis macro (dipstick) panel (U)on 03-21-2024 Bilirubin, UANegativeNegative - 4(70) +++ mg/dLNOMS HealthcareBlood, UANegative Negative - 50 Slick/mcLNOMS HealthcareClarity, UACloudyNOMS HealthcareColor, UA YellowNOMS HealthcareGlucose, UAPositiveNegative - 1999(110) ++++ mg/dLNOMS HealthcareComment on above:500 mgInterpretation and review of laboratory results AbnormalNOMS HealthcareKetones, UANegativeNegative - 160(16) ++++ mg/dLNOMS HealthcareLeukocytes, UANegativeNegative - 500+++ Imra/mcLNOMS HealthcareNitrite, UANegativeNegative - PositiveNOMS HealthcarepH, UA6.55 - 9NOMS Healthcare Protein, UANegativeNegative - 2000(20) ++++ mg/dLNOMS HealthcareSpec Grav, UA 1.0251 - 1.03NOMS HealthcareUrobilinogen, UA0.20.2 - 12 mg/dLNOMD HealthcareNOMD HealthcareUrinalysis macro (dipstick) panel (U)on 25-33-6206Fumevpwkj, UA NegativeNegative - 4(70) +++ mg/dLNOMS HealthcareBlood, UAPositiveNegative - 50 Slick/mcLNOMS HealthcareComment on above:largeClarity, UAClearNOMS Healthcare Color, UAStrawNOMS HealthcareGlucose, UANegativeNegative - 1999(110) ++++ mg/dL NOMS HealthcareInterpretation and review of laboratory resultsAbnormalNOMS HealthcareKetones, UANegativeNegative - 160(16) ++++ mg/dLNOMD Healthcare Leukocytes, UANegativeNegative - 500+++ Mira/mcLNOMS HealthcareNitrite, UA NegativeNegative - PositiveNOMS HealthcarepH, UA65 - 9NOMD HealthcareProtein, UA NegativeNegative - 2000(20) ++++ mg/dLNOMD HealthcareSpec Grav, UA1.021 - 1.03 NOMS HealthcareUrobilinogen, UA0.20.2 - 12 mg/dLNOMD HealthcareNOMD Healthcare TBH UA (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 IND.on 83-93-7166DRGPIALVT URINECOLOR INTERFERENCEAbnormalNEGATIVENOMS HealthcareBLOOD URINECOLOR INTERFERENCEAbnormal NEGATIVENOMD HealthcareClarity (U)CLEARCLEARNOMS HealthcareColor (U)DK. RED YELLOWNOMD HealthcareGLUCOSE URINE UACOLOR INTERFERENCEAbnormalNEGATIVE mg/dL NOMS HealthcareInterpretation and review of laboratory resultsAbnormalNOMS HealthcareKetones Ql (U)COLOR INTERFERENCEAbnormalNEGATIVE mg/dLNOMD Healthcare Leukocyte esterase Test strip Ql (U)COLOR INTERFERENCEAbnormalNEGATIVENOMS HealthcareNITRITE URINECOLOR INTERFERENCEAbnormalNEGATIVENOMS HealthcarePH URINE COLOR INTERFERENCEAbnormal5.0 - 9.0NOMD HealthcarePROTEIN URINECOLOR INTERFERENCEAbnormalNEG/TRACE mg/dLNOMD HealthcareSPECIFIC GRAVITY URINE1.020 1.005 - 1.025NOMD HealthcareURINE MICROSCOPIC INDICATEDYESNOMD Healthcare UROBILINOGEN URINECOLOR INTERFERENCEAbnormal0.2 - 1.0 EU/dLNOMD Healthcare CLINISYNCNOMD HealthcareUS RENAL BIon 23-29-4576[place] [address] Ultrasound Report Signed Patient: PROSPER MCCLENDON MR#: [id number] : 1985 Acct:[id number] Age/Sex: 38 / F ADM Date: Loc: [facility] 251-[address]: Johnathan Recinos D.O. Ordering Physician: Johnathan Recinos D.O. Date of Service: 03/06/24 Procedure(s): US renal BI Accession Number(s): [id number] cc: KIMBERLYN XIE ; Johnathan Recinos D.O. The [place] [id number] Patient Name: PROSPER MCCLENDON MRN: [id number] date: 1985 Sex: F Assigned Patient Location: [facility] Current Patient Location: [facility] Accession/Order Number: [id number] Exam Date: 03/06/2024 14:35 Report Date: 03/06/2024 15:52 At the request of: JOHNATHAN RECINOS Procedure: US renal BI EXAMINATION: US [...] IMPRESSION: No abnormality Electronically authenticated by: NATO AVELAR Date: 03/06/2024 15:52 Dictated By: Nato Avelar M.D. Signed By: 03/06/24 1555 DD/ 1552 TD/TT: Lav Crewman:TBHRadiology, Radiologist, MD - 03/06/2024 [place] [address] Ultrasound Report Signed Patient: PROSPER MCCLENDON MR#: [id number] : 1985 Acct:[id number] Age/Sex: 38 / F ADM Date: Loc: [facility] 251-[address]: Johnathan Recinos D.O. Ordering Physician: Johnathan Recinos D.O. Date of Service: 03/06/24 Procedure(s): US renal BI Accession Number(s): [id number] cc: KIMBERLYN XIE ; Johnathan Recinos D.O. The [place] [address] Patient Name: PROSPER MCCLENDON MRN: [id number] date: 1985 Sex: F Assigned Patient Location: [facility] Current Patient Location: [facility] Accession/Order Number: [id number] Exam Date: 03/06/2024 14:35 Report Date: 03/06/2024 15:52 At the request of: JOHNATHAN RECINOS Procedure: US renal BI EXAMINATION: US [...] IMPRESSION: No abnormality Electronically authenticated by: NATO AVELAR Date: 03/06/2024 15:52 Dictated By: Nato Avelar M.D. Signed By: 03/06/24 1555 DD/ 1552 TD/TT: Lav Crewman: MARIA DOLORES HealthcareRadiology Study observation (narrative)NOMS HealthcareUS RENAL BI Ordered By: Radiologist Radiology on 11-11-7748KEVZ Mister [employer]x Work Phone: Urinalysis macro (dipstick) panel (U)on 03-06-2024 Bilirubin, UAPositiveNegative - 4(70) +++ mg/dLNOMS HealthcareBlood, UAPositive Negative - 50 Slick/mcLNOMS HealthcareComment on above:largeClarity, UAClearNOMS HealthcareColor, UADark AmberNOMS HealthcareGlucose, UANegativeNegative - 2000(110) ++++ mg/dLNOMS HealthcareInterpretation and review of laboratory resultsAbnormalNOMS HealthcareKetones, UANegativeNegative - 160(16) ++++ mg/dL NOMS HealthcareLeukocytes, UATraceNegative - 500+++ Mira/mcLNOMS Healthcare Nitrite, UAPositiveNegative - PositiveNOMS HealthcarepH, UA65 - 9NOMS Healthcare Protein, UAPositiveNegative - 2000(20) ++++ mg/dLNOMS HealthcareComment on above:100Spec Grav, UA1.021 - 1.03NOMS HealthcareUrobilinogen, UA1.00.2 - 12 mg/dLNOMS HealthcareNOMS HealthcareUrinalysis macro (dipstick) panel (U)on 25-24-9815Wztseifwc, UANegativeNegative - 4(70) +++ mg/dLNOMS HealthcareBlood, UANegativeNegative - 50 Slick/mcLNOMS HealthcareClarity, UAClearNOMS Healthcare Color, UAYellowNOMS HealthcareGlucose, UANegativeNegative - 1999(110) ++++ mg/dL NOMS HealthcareInterpretation and review of laboratory resultsAbnormalNOMS HealthcareKetones, UANegativeNegative - 160(16) ++++ mg/dLNOMS Healthcare Leukocytes, UATraceNegative - 500+++ Mira/mcLNOMS HealthcareNitrite, UANegative Negative - PositiveNOMS HealthcarepH, UA5.55 - 9NOMS HealthcareProtein, UA NegativeNegative - 2000(20) ++++ mg/dLNOMS HealthcareSpec Grav, UA1.011 - 1.03 NOMS HealthcareUrobilinogen, UA0.20.2 - 12 mg/dLNOMS HealthcareNOMS HealthcareUS for pregnancyon 75-67-4661[place]wgR[place] [address] Ultrasound Report Signed Patient: PROSPER MCCLENDON MR#: [id number] : 1985 Acct:[id number] Age/Sex: 38 / F ADM Date: Loc: [facility] 251- Attending Dr: Johnathan Recinos D.O. Ordering Physician: Johnathan Recinos D.O. Date of Service: 02/14/24 Procedure(s): US OB limited Accession Number(s): [id number] cc: KIMBERLYN XIE ; Johnathan Recinos D.O. The [place] [id number] Patient Name: PROSPER MCCLENDON MRN: [id number] date: 1985 Sex: F Assigned Patient Location: [facility] Current Patient Location: [facility] Accession/Order Number: [id number] Exam Date: 02/14/2024 11:41 Report Date: 02/14/2024 12:25 At the request of: JOHNATHAN RECINOS Procedure: US OB limited EXAMINATION: US OB limited HISTORY: decreased movement COMPARISON: No relevant comparison available. FINDINGS: position: Cephalic presentation, longitudinal lie Heart rate: 136 beats minute Clinical age: 21 weeks 1 day Clinical LISA: 06/25/2024 US/US OB limited IMPRESSION: Viable intrauterine gestation Electronically authenticated by: NATO AVELAR Date: 02/14/2024 12:25 Dictated By: Nato Avelar M.D. Signed By: 02/14/24 1227 DD/ 1225 TD/TT: Lav Crewman:MASTERHRadiology, Radiologist, - 02/14/2024 [place] [address] Ultrasound Report Signed Patient: PROSPER MCCLENDON MR#: [id number] : 1985 Acct:[id number] Age/Sex: 38 / F ADM Date: Loc: [facility] 251-[address]: Johnathan Recinos D.O. Ordering Physician: Johnathan Recinos D.O. Date of Service: 02/14/24 Procedure(s): US OB limited Accession Number(s): [id number] cc: KMIBERLYN XIE ; Johnathan Recinos D.O. [address] [address] Patient Name: PROSPER MCCLENDON MRN: [id number] date: 1985 Sex: F Assigned Patient Location: [facility] Current Patient Location: [facility] Accession/Order Number: [id number] Exam Date: 02/14/2024 11:41 Report Date: 02/14/2024 12:25 At the request of: JOHNATHAN RECINOS Procedure: US OB limited EXAMINATION: US OB limited HISTORY: decreased movement COMPARISON: No relevant comparison available. FINDINGS: position: Cephalic presentation, longitudinal lie Heart rate: 136 beats minute Clinical age: 21 weeks 1 day Clinical LISA: 06/25/2024 US/US OB limited IMPRESSION: Viable intrauterine gestation Electronically authenticated by: NATO AVELAR Date: 02/14/2024 12:25 Dictated By: Nato Avelar M.D. Signed By: 02/14/241226 DD/ 24 TD/TT: Lav Crewman: MARIA DOLORES HealthcareRadiology Study observation (narrative)[facility] HealthcareUS for pregnancyOrdered By: Radiologist Radiology on 99-86-9214PBJT Healthcare Work Phone: cBC AND AUTO DIFFon 88-72-0141MMZMQMJG BASOPHIL0.0 X10E9/LNormal0.0-0.2[facility] HospitalComment on above:Performed By: #### 30728-0, CMP, CBCA #### [facility] ([id number]) [address], [address] [place], [place] [address]IOOSMMVR NEUTROPHIL5.4 X10E9/LNormal1.5-6.6ProClermont County Hospitalca Bethesda North HospitalComment on above:Performed By: #### 41479-8, CMP, CBCA #### [facility] ([id number]) [address], [address] [place], [place] [address]Nnmjtfkon/100 WBC (Bld)0.2 %NormalProUc [facility] Comment on above:Performed By: #### 70817-2, CMP, CBCA #### [facility] ([id number]) [address], [address] [place], [place] [address]Sublhtheryj (Bld) [#/Vol]0.1 10*3/uLNormal0.0-0.4ProMartins Ferry Hospital HospitalComment on above:Performed By: #### 62758-7, CMP, CBCA #### [facility] ([id number]) [address], [address] [address]Npehhwiivqk/100 WBC (Bld)0.9 %NormalProMartins Ferry Hospital Hospital Comment on above:Performed By: #### 32026-0, CMP, CBCA #### [facility] ([id number]) [address] [address]Iqmlbovauck distribution width (RBC) [Ratio]14.3 %Normal 11.5-15.0ProMartins Ferry Hospital HospitalComment on above:Performed By: #### 55581-7, CMP, CBCA #### [facility] ([id number]) [address] [address]Xockauwlfy (Bld) [Volume fraction]30.3 %Juj48-57AulIoxwum [place] HospitalComment on above:Performed By: #### 92162-1, CMP, CBCA #### [facility] ([id number]) [address] [address]Yxdlolvrpf (Bld) [Mass/Vol]10.3 g/dLLow11.7-15.5PKindred Hospital Dayton HospitalComment on above:Performed By: #### 76999-4, CMP, CBCA #### [facility] ([id number]) [address] [address]Ievmgyshixf (Bld) [#/Vol]1.7 10*3/uLNormal1.0-3.5PKindred Hospital Dayton HospitalComment on above:Performed By: #### 53915-4, CMP, CBCA #### [facility] ([id number]) [address], [address] [place], [place] [address]Etljkqmbnio/100 WBC (Bld)22.0 %NormalWood County Hospital Comment on above:Performed By: #### 28543-7, CMP, CBCA #### [facility] ([id number]) [address], [address] [place], [place] [address]XLH (RBC) [Entitic mass]31.3 amPrtmxe50-55JzqFvcgdi Muñoz HospitalComment on above:Performed By: #### 18025-7, CMP, CBCA #### [facility] ([id number]) [address], [address] [place], [place] [address]ZJNU (RBC) [Mass/Vol]34.0 g/gZNrmkrx16-87KaeXbwnje [place]ulee HospitalComment on above:Performed By: #### 06043-4, CMP, CBCA #### [facility] ([id number]) [address], [address] [place], [place] [address]WAI (RBC) [Entitic vol]92 lVAimytx86-539GjnNnkpwj [facility] HospitalComment on above:Performed By: #### 88047-8, CMP, CBCA #### [facility] ([id number]) [address], [address] [place], [place] [address]Rfdkpmtmh (Bld) [#/Vol]0.5 10*3/uLNormal0-0.9ProMedica [facility]ulee HospitalComment on above:Performed By: #### 32040-6, CMP, CBCA #### [facility] ([id number]) [address], [address] [place], [place] [address]Gaoyfkvqg/100 WBC (Bld)7.0 %NormalWood County Hospital Comment on above:Performed By: #### 69211-1, CMP, CBCA #### [facility] ([id number]) [address], [address] [place], [place] [address]Dzpjevgtsaf/100 WBC (Bld)69.9 %NormalWood County Hospital Comment on above:Performed By: #### 90563-3, CMP, CBCA #### [facility] ([id number]) [address], [address] [place] [address]Dfwwaots mean volume (Bld) [Entitic vol]8.8 fLNormal7-12 ProMMarietta Memorial HospitalComment on above:Performed By: #### 41852-4, CMP, CBCA #### [facility] ([id number]) [address], [address] [place], [place] [address]Cfybkwfvu (Bld) [#/Vol]259 10*3/xPFqfwzf043-782KdsCoknxd [place] HospitalComment on above:Performed By: #### 00537-2, CMP, CBCA #### [facility] ([id number]) [address], [address] [place], [place] [address]YPN COUNT3.29 X10E12/LLow3.80-5.20[facility] Comment on above:Performed By: #### 89481-7, CMP, CBCA #### [facility] ([id number]) [address], [address] [place], [place] [address]EKA (Bld) [#/Vol]7.7 10*3/uLNormal4.0-11.0ProUc West Chester HospitalComment on above:Performed By: #### 11126-2, CMP, CBCA #### [facility] ([id number]) [address], [address] [place], [place] [address]RKRCGARKWPCSY METABOLIC PANELon 61-95-4889Vumprec [Mass/Vol]2.9 g/dLLow3.2-5.3POhioHealth O'Bleness HospitalComment on above:Performed By: #### 86220-9, CMP, CBCA #### [facility] ([id number]) [address], [address] [place], [place] [address]OMP [Catalytic activity/Vol]118 U/LZdjmus72-739KumPixfyz Muñoz HospitalComment on above:Performed By: #### 55557-2, CMP, CBCA #### [facility] ([id number]) [address], [address] [place], [place] [address]HWI [Catalytic activity/Vol]6 U/LNormal0-31ProMedica Muñoz HospitalComment on above:Performed By: #### 89698-8, CMP, CBCA #### [facility] ([id number]) [address], [address] [place], [place] [address] gap [Moles/Vol]10 mmol/LNormal5-15ProMedica Muñoz HospitalComment on above:Performed By: #### 75299-1, CMP, CBCA #### [facility] ([id number]) [address], [address] [place], [place] [address]EUQ [Catalytic activity/Vol]9 U/LNormal0-41ProMedica Muñoz HospitalComment on above:Performed By: #### 86543-2, CMP, CBCA #### [facility] ([id number]) [address], [address] [place], [place] [address]Kmsqudwvr [Mass/Vol]0.4 mg/dLNormal0.3-1.2Pro[facility] Muñzo HospitalComment on above:Performed By: #### 86360-1, CMP, CBCA #### [facility] ([id number]) [address], [address] [place], [place] [address]Kxaoloy [Mass/Vol]8.5 mg/dLNormal8.5-10.5Pro[facility]ica Muñoz HospitalComment on above:Performed By: #### 03076-6, CMP, CBCA #### [facility] ([id number]) [address], [address] [place], [place] [address]Zryiewcb [Moles/Vol]105 mmol/PHmmalv17-152YevGlibem Muñoz HospitalComment on above:Performed By: #### 10951-6, IZAIAH, CBCA #### [facility] ([id number]) [address], [address] [place], [place] [address]FF8 [Moles/Vol]22 mmol/BWalbvt70-72JfhYagsdyOhioHealth O'[facility] Comment on above:Performed By: #### 38892-5, IZAIAH, CBCA #### [facility] ([id number]) [address], [address] [place], [place] [address]Xbmydyqqms [Mass/Vol]0.45 mg/dLNormal0.40-1.00Pro[facility] HospitalComment on above:Result Comment: METHOD TRACEABLE TO IDMS STANDARD Performed By: #### 14832-3, IZAIAH, CBCA #### [facility] ([id number]) [address], [address] [place], [place] [address]aBSD (CKD-EPI) NON-RACE DEPENDENT>90Normal>59Pro[facility]c [facility] HospitalComment on above:Result Comment: Reported eGFR is based on the CKD-EPI 2020 equation that does not use a race coefficient.Performed By: #### 14287-8, IZAIAH, CBCA #### [facility] ([id number]) [address], [address] [place], [place] [address]Lxkdlte [Mass/Vol]84 mg/kYAgwhil74-97EhcJevxmoWood County Hospital Comment on above:Performed By: #### 47578-3, IZAIAH CBCA #### [facility] ([id number]) [address], [address] [place], [place] [address]Zuzvcddqe [Moles/Vol]3.7 mmol/LNormal3.5-5.0[facility] HospitalComment on above:Performed By: #### 03517-3, IZAIAH, CBCA #### [facility] ([id number]) [address], [address] [place], [place] [address]Vkqpbev [Mass/Vol]6.0 g/dLNormal6.0-8.0[facility] Comment on above:Performed By: #### 50770-8, IZAIAH, CBCA #### [facility] ([id number]) [address], [address] [place], [place] [address]Atygdt [Moles/Vol]137 mmol/YOuomcl000-124LpfDkfpaw [place] HospitalComment on above:Performed By: #### 96095-0, CMP, CBCA #### [facility] ([id number]) [address], [address] [place], [place] [address]Jjif nitrogen [Mass/Vol]5 mg/dLNormal5-23Pro[facility] HospitalComment on above:Performed By: #### 66562-5, CMP, CBCA #### [facility] ([id number]) [address], [address] [place], [place] [address]YWWQWYXDUvl 97-40-9589Gppvrpdbe [Mass/Vol]1.6 mg/dLLow1.8-2.6 [facility] HospitalComment on above:Performed By: #### 98380-4, IZAIAH, CBCA #### [facility] ([id number]) [address], [address] [place], [place] [address]SSBLXQFYEQwq 70-31-9165Nmuuuyzvk [Mass/Vol]4.5 mg/dLNormal 2.4-4.9Pro[facility] HospitalComment on above:Performed By: #### 61410-2, CMP, CBCA #### [facility] ([id number]) [address], [address] [place], [place] [address]QT RETROPERITONEAL LIMITEDon 85-39-3461JJ RETROPERITONEAL LIMITEDUS RETROPERITONEAL LIMITED HISTORY: A 38-year-old [...] Vitaly Andrade MD on 02/09/2024 10:14 AMNormalProMedica Yulee HospitalBLOOD CULTUREon 22-59-2662Nejiwrjg identified Aer cx Nom (Bld)SPECIMEN NOTES SUBOPTIMAL VOLUME OF BLOOD COLLECTED, RESULTS MAY BE AFFECTED. CULTURE RESULTS NO GROWTH 5 DAYSNoalProMartins Ferry Hospital HospitalComment on above:Performed By: #### 46978-4, IZAIAH, CBCA #### [facility] ([id number]) [address], [address] [place] [address]Kgvgbglh identified Aer cx Nom (Bld)SPECIMEN NOTES SUBOPTIMAL VOLUME OF BLOOD COLLECTED, RESULTS MAY BE AFFECTED. CULTURE RESULTS NO GROWTH 5 DAYSNormalProMartins Ferry Hospital HospitalComment on above:Performed By: #### 20386-4 #### [facility] ([id number]) [address], [address] [place], [place] [address]PTE AND AUTO DIFFon 95-26-9739FOABOITU BASOPHIL0.0 X10E9/LNormal 0.0-0.2[facility] HospitalComment on above:Performed By: #### 55713-9, IZAIAH, CBCA #### [facility] ([id number]) [address], [address] [place], [place] [address]ELCEUSKD NEUTROPHIL9.5 X10E9/LHigh1.5-6.6[facility] HospitalComment on above:Performed By: #### 95329-0, IZAIAH, CBCA #### [facility] ([id number]) [address], [address] [place], [place] [address]Yetqimtqa/100 WBC (Bld)0.0 %NormalWood County Hospital Comment on above:Performed By: #### 06555-2, CMP, CBCA #### [facility] ([id number]) [address], [address] [place], [place] [address]Cltoqftgrhw (Bld) [#/Vol]0.0 10*3/uLNormal0.0-0.4ProClermont County Hospitalca Yulee HospitalComment on above:Performed By: #### 90614-8, CMP, CBCA #### [facility] ([id number]) [address], [address] [place], [place] [address]Erovcqdexkh/100 WBC (Bld)0.0 %NormalWood County Hospital Comment on above:Performed By: #### 51751-1, CMP, CBCA #### [facility] ([id number]) [address], [address] [place], [place] [address]Phcdbemiauo distribution width (RBC) [Ratio]14.5 %Normal 11.5-15.0ProMart[facility]erry Hospital HospitalComment on above:Performed By: #### 07917-7, CMP, CBCA #### [facility] ([id number]) [address], [address] [place], [place] [address]Bfwksleeyl (Bld) [Volume fraction]31.3 %Cym01-43MqcLdnmuh [facility]e HospitalComment on above:Performed By: #### 84847-6, CMP, CBCA #### [facility] ([id number]) [address], [address] [place], [place] [address]Yohmjsqimi (Bld) [Mass/Vol]10.6 g/dLLow11.7-15.5[facility] HospitalComment on above:Performed By: #### 06604-8, CMP, CBCA #### [facility] ([id number]) [address], [address] [place], [place] [address]Qispmfsurte (Bld) [#/Vol]1.1 10*3/uLNormal1.0-3.5[facility] HospitalComment on above:Performed By: #### 60601-2, CMP, CBCA #### [facility] ([id number]) [address], [address] [place], [place] [address]Msjajccwhhb/100 WBC (Bld)9.4 %NormalProMartins Ferry Hospital Hospital Comment on above:Performed By: #### 57916-0, CMP, CBCA #### [facility] ([id number]) [address], [address] [place], [place] [address]QWX (RBC) [Entitic mass]30.8 vhXzqfst61-99XljDxzggx [place] HospitalComment on above:Performed By: #### 26024-8, CMP, CBCA #### [facility] ([id number]) [address], [address] [place], [place] [address]RNSK (RBC) [Mass/Vol]33.9 g/kJHymsiy86-76VlkHvjfxr [place] HospitalComment on above:Performed By: #### 09364-8, CMP, CBCA #### [facility] ([id number]) [address], [address] [place], [place] [address]DYS (RBC) [Entitic vol]91 hVTmlwss78-873KwiEedhvo [place] HospitalComment on above:Performed By: #### 41797-0, CMP, CBCA #### [facility] ([id number]) [address], [address] [place], [place] [address]Bitralzvz (Bld) [#/Vol]0.9 10*3/uLNormal0-0.9ProClermont County Hospitalca [facility] HospitalComment on above:Performed By: #### 31616-0, CMP, CBCA #### [facility] ([id number]) [address], [address] [place] [address]Dzvnqxvde/100 WBC (Bld)8.2 %NormalWood County Hospital Comment on above:Performed By: #### 58084-0, CMP, CBCA #### [facility] ([id number]) [address], [address] [place] [address]Axueigqmwpe/100 WBC (Bld)82.4 %NormalWood County Hospital Comment on above:Performed By: #### 72697-8, CMP, CBCA #### [facility] ([id number]) [address], [address] [place], [place] [address]Txsootmr mean volume (Bld) [Entitic vol]8.5 fLNormal7-12 [facility] HospitalComment on above:Performed By: #### 10794-2, CMP, CBCA #### [facility] ([id number]) [address], [address] [place] [address]Nmzneuvfo (Bld) [#/Vol]246 10*3/aCJeqzdn190-813EqxAlcnjf [place] HospitalComment on above:Performed By: #### 69159-1, CMP, CBCA #### [facility] ([id number]) [address], [address] [place], [place] [address]XQG COUNT3.44 X10E12/LLow3.80-5.20[facility] Comment on above:Performed By: #### 05242-0, CMP, CBCA #### [facility] ([id number]) [address], [address] [place], [place] [address]HDH (Bld) [#/Vol]11.5 10*3/uLHigh4.0-11.0[facility] HospitalComment on above:Performed By: #### 61720-4, CMP, CBCA #### [facility] ([id number]) [address], [address] [place], [place] [address]RLFUCSIFIQPZF METABOLIC PANELon 37-94-5735Ebhoqgo [Mass/Vol]3.1 g/dLLow3.2-5.3[facility] [place] HospitalComment on above:Performed By: #### 07829-7, CMP, CBCA #### [facility] ([id number]) [address], [address] [place], [place] [address]PNN [Catalytic activity/Vol]100 U/GHdmycb73-325LogEvqiel [place] HospitalComment on above:Performed By: #### 06650-4, CMP, CBCA #### [facility] ([id number]) [address], [address] [place], [place] [address]UQL [Catalytic activity/Vol]7 U/LNormal0-31[facility] HospitalComment on above:Performed By: #### 28052-0, CMP, CBCA #### [facility] ([id number]) [address], [address] [place], [place] [address]Cqrex gap [Moles/Vol]12 mmol/LNormal5-15[facility] HospitalComment on above:Performed By: #### 84566-3, CMP, CBCA #### [facility] ([id number]) [address], [address] [place], [place] [address]EMZ [Catalytic activity/Vol]8 U/LNormal0-41[facility] HospitalComment on above:Performed By: #### 87341-6, CMP, CBCA #### [facility] ([id number]) [address], [address] [place], [place] [address]Pvsgyxree [Mass/Vol]0.5 mg/dLNormal0.3-1.2[facility] HospitalComment on above:Performed By: #### 73099-7, CMP, CBCA #### [facility] ([id number]) [address], [address] [place], [place] [address]Pwgeugi [Mass/Vol]8.3 mg/dLLow8.5-10.5POhioHealth O'Bleness Hospital Comment on above:Performed By: #### 34734-2, IZAIAH, CBCA #### [facility] ([id number]) [address], [address] [place], [place] [address]Qqetlmuv [Moles/Vol]104 mmol/OGcneze73-465CekPjvfjb [place] HospitalComment on above:Performed By: #### 84866-1, IZAIAH, CBCA #### [facility] ([id number]) [address], [address] [place], [place] [address]KX6 [Moles/Vol]20 mmol/JQks76-56RjxOnbbprOhioHealth O'Bleness HospitalComment on above:Performed By: #### 20409-4, IZAIAH, CBCA #### [facility] ([id number]) [address], [address] [place], [place] [address]Tzsybricol [Mass/Vol]0.53 mg/dLNormal0.40-1.00ProUc [facility] HospitalComment on above:Result Comment: METHOD TRACEABLE TO IDMS STANDARD Performed By: #### 81378-5, IZAIAH, CBCA #### [facility] ([id number]) [address], [address] [place], [place] [address]tPSW (CKD-EPI) NON-RACE DEPENDENT>90Normal>59ProUc [facility] HospitalComment on above:Result Comment: Reported eGFR is based on the CKD-EPI 2021 equation that does not use a race coefficient.Performed By: #### 48444-0, IZAIAH, CBCA #### [facility] ([id number]) [address], [address] [place], [place] [address]Cnalqnc [Mass/Vol]115 mg/mYHlik35-57RokBmltnfUc [facility] Hospital Comment on above:Performed By: #### 86828-4, CMP, CBCA #### [facility] ([id number]) [address], [address] [place], [place] [address]Vxatxwcpf [Moles/Vol]3.6 mmol/LNormal3.5-5.0Pro[facility] HospitalComment on above:Performed By: #### 38799-7, CMP, CBCA #### [facility] ([id number]) [address], [address] [place], [place] [address]Mnksnzb [Mass/Vol]6.1 g/dLNormal6.0-8.0[facility] Comment on above:Performed By: #### 32491-6, CMP, CBCA #### [facility] ([id number]) [address], [address] [place], [place] [address]Nrhgmi [Moles/Vol]136 mmol/BLglqwg180-937DlrOyymqj [place] HospitalComment on above:Performed By: #### 34388-2, CMP, CBCA #### [facility] ([id number]) [address], [address] [place], [place] [address]Zrta nitrogen [Mass/Vol]3 mg/dLLow5-23[facility] Comment on above:Performed By: #### 55455-9, CMP, CBCA #### [facility] ([id number]) [address], [address] [place], [place] [address]XCLO SCREEN, URINEon 61-27-5699ZVMXBFYJNXX/METHAMPNegativeNormal NEGProMartins Ferry Hospital HospitalComment on above:Result Comment: AMPH/METH screening cut off = 1000 ng/mLPerformed By: #### DSU #### [facility] ([id number]) [address], [address] [place], [place] [address]KCHLUQMILADIDeqvnlmrWxmmmvCONJcbYceyho [place] HospitalComment on above:Result Comment: Barbiturates screening cut off value = 200 ng/mLPerformed By: #### DSU #### [facility] ([id number]) [address], [address] [place], [place] [address]VWPHYCGRNMLWAYKJmwbpmzpInozunXLVOrpXsiccy [facility]ulee HospitalComment on above:Result Comment: Benzodiazepines screening cut off value = 200 ng/mL Performed By: #### DSU #### [facility] ([id number]) [address], [address] [place], [place] [address]MLLCCNKOSEUNQmfmrinxWbjpgtGDKTjhYafffj Y[facility]e HospitalComment on above:Result Comment: Cannabinoids/THC screening cut off value = 50 ng/mL Performed By: #### DSU #### [facility] ([id number]) [address], [address] [place], [place] [address]TQNJYHE METABOLITENegativeNormalNEGProMartins Ferry Hospital Hospital Comment on above:Result Comment: Cocaine screening cut off value = 300 ng/mL Performed By: #### DSU #### [facility] ([id number]) [address], [address] [place], [place] [address]OIXJPACBdyweoorVwwoouKPUYzgGpbrdg [facility] HospitalComment on above:Result Comment: Ecstasy screening cut off value = 500 ng/mL This report is intended for use in clinical monitoring or management of patients.Performed By: #### DSU #### [facility] ([id number]) [address], [address] [place], [place] [address]GHHVVNHXVZpdtrrktXyvmynIZLNnzOevgwk [facility] HospitalComment on above:Result Comment: Methadone screening cut off value = 300 ng/mL.Performed By: #### DSU #### [facility] ([id number]) [address], [address] [place], [place] [address]MAMUHFRXdkulhvhVeooplWKIBvoPeydql [facility] HospitalComment on above:Result Comment: Opiates screening cut off value = 300 ng/mL NOTE: This test is used for the detection of codeine, hydrocodone (>1000 ng/mL), morphine and hydromorphone (>900 ng/mL) in urine.Performed By: #### DSU #### [facility] ([id number]) [address], [address] [place], [place] [address]LNDVCKFEYBtcfesucTonpybTAVVyoJkckre [place] HospitalComment on above:Result Comment: Oxycodone screening cut off value = 300 ng/mL NOTE: This test is used for the detection of oxycodone and oxymorphone in urine.Performed By: #### DSU #### [facility] ([id number]) [address], [address] [place], [place] [address]GKOKBUWTQENEJTnoiiidmHaeaipOOOQgqLwnwyb [place] HospitalComment on above:Result Comment: Phencyclidine screening cut off value = 25 ng/mL Performed By: #### DSU #### [facility] ([id number]) [address], [address] [place], [place] [address]Owgffnc Glucometer (BldC) [Mass/Vol]on 38-54-3583Fmuzzzj [Mass/Vol]107 mg/oPUrmk00-46AyhXgoerzUc West Chester HospitalLactate (P melvin) [Moles/Vol] on 92-53-5646ZIJSVRB W/REFLEX1.0 mmol/LNormal0.4-2.0[facility] Comment on above:Result Comment: Result did not trigger repeat Lactate, re-order if needed.Performed By: #### 26569-5, 10181-6 #### [facility] ([id number]) [address], [address] [place], [place] [address]SILZPJY W/REFLEX0.8 mmol/LNormal0.4-2.0[facility] Comment on above:Result Comment: Result did not trigger repeat Lactate, re-order if needed.Performed By: #### 37597-3, CMP, CBCA #### [facility] ([id number]) [address], [address] [place], [place] [address]Wzupzutkotcpr IA [Mass/Vol]on 93-61-2821FLWUPBEZBTIWX6.74 ng/mL High<0.05[facility] HospitalComment on above:Result Comment: NOTE <0.50 ng/mL - Low risk of severe sepsis and/or septic shock. <2.00 ng/mL - Recommend retesting within 6-24 hours. >2.00 ng/mL - High risk of sepsis and/or septic shock.Performed By: #### 68617- 0, 20255-3 #### [facility] ([id number]) [address], [address] [place], [place] [address]CBFYYGSPDBaf 02-83-5560Rthpngtxv Ql (U)NegativeNormalNEG [facility] HospitalComment on above:Performed By: #### UA #### [facility] ([id number]) [address] [place], [place] [address]CUFJD/HGBSmallAbnormalNEGProMedica Yulee HospitalComment on above:Performed By: #### UA #### [facility] ([id number]) [address] [place], [place] [address]Isosd (U)YELLOWNormalYELLOWProClermont County Hospitalca [facility] HospitalComment on above:Performed By: #### UA #### [facility] ([id number]) [address], [address] [place], [place] [address]Musrdmv Ql (U)NegativeNormalNEGProMedica Yulee HospitalComment on above:Performed By: #### UA #### [facility] ([id number]) [address], [address] [place], [place] [address]Dimtumt Ql (U)20 mg/dLAbnormalNEGProClermont County Hospitalca [facility] Comment on above:Performed By: #### UA #### [facility] ([id number]) [address], [address] [place], [place] [address]Wxpgcygjt esterase Test strip Ql (U)NegativeNormalNEGProMedica Yulee HospitalComment on above:Performed By: #### UA #### [facility] ([id number]) [address], [address] [place], [place] [address]XNSLQZKIDOAQOFoytqwtqPUQKThmJnxzcj Muñoz HospitalComment on above:Performed By: #### UA #### [facility] ([id number]) [address], [address] [place], [place] [address]Qwccgbe Ql (U)NegativeNormalNEGProMedica Muñoz HospitalComment on above:Performed By: #### UA #### [facility] ([id number]) [address] [place], [place] [address]oX (U)8.0 [pH]Normal5.0-8.5Pro[facility]ica [facility] HospitalComment on above:Performed By: #### UA #### [facility] ([id number]) [address] [place], [place] [address]Eeunwow Ql (U)TraceAbnormalNEGProMedica Muñoz HospitalComment on above:Performed By: #### UA #### [facility] ([id number]) [address] [place], [place] [address]I.B.CELLS16 /hpfHigh0-5Pro[facility]ica [facility] HospitalComment on above:Performed By: #### UA #### [facility] ([id number]) [address] [place], [place] [address]Luxlvcxv gravity (U) [Rel density]1.000Hhdnep4.003-1.035 [facility] HospitalComment on above:Performed By: #### UA #### [facility] ([id number]) [address], [address] [place], [place] [address]CEXVYTSC EPITHELIUM1 /hpfNormal0-5[facility] Comment on above:Performed By: #### UA #### [facility] ([id number]) [address], [address] [place], [place] [address]LHANMNIBKWGG EPITH<3Gtrx0JlxVviotr [place] HospitalComment on above:Performed By: #### UA #### [facility] ([id number]) [address], [address] [place] [address]HQYZYYSFYNUEKOTvhipnALVPTAivMomtla [place] HospitalComment on above:Performed By: #### UA #### [facility] ([id number]) [address], [address] [place] [address]Upofbpimokjt Qn (U)2 {Blanca'U}/dLHigh<1.1ProMedWayne HospitalComment on above:Performed By: #### UA #### [facility] ([id number]) [address], [address] [place] [address]M.B.CELLS2 /hpfNormal0-5POhioHealth O'Bleness HospitalComment on above:Performed By: #### UA #### [facility] ([id number]) [address], [address] [place] [address]LJLFM CULTUREon 19-90-0094Ugtzrqxv identified Cx Nom (U)CULTURE RESULTS NO GROWTH AT <1000 CFU/mLNormalWood County HospitalComment on above: Performed By: #### 89437-6, CMP, CBCA #### [facility] ([id number]) [address], [address] [place] [address] CHEST 1 VWon 84-85-9656AG CHEST 1 VWXR CHEST 1 VW Chest [...] Rose Marie Rubi MD on 02/08/2024 9:35 AMNormalProMedica Muñoz HospitalURETHRITIS/DISCHARGE PLUS VAGINITIS (HTRX)on 95-70-4228MIJAZCPNI VAGINAE 0.000NOMS HealthcareATOPOBIUM VAGINAENot detectedNOMS HealthcareBVAB 2,3 [...] detectedNOMS HealthcareNOMS HealthcareAFP, SERUM, OPEN SPINA BIFIDAon 83-34-0766SXF MOM1.08. [facility] HealthcareAFP VALUE35.9 ng/mL.[facility] HealthcareCOMMENT:Comment.[facility] HealthcareComment on above:Nette Holley, Ph.D., [facility] Director References: Available Upon Request. Multiples Of Median Cutoffs For AFP Elevations Rao 2.5 Black 2.8 IDD 2.0 Twins 4.5 Abbreviation Definitions IDD - Insulin Dep Diabetes OSBR - Open Spina Bifida Risk For further inquiries contact [employer] [facility] at [phone]. This test was developed and its performance characteristics determined by [facility]. It has not been cleared or approved by the Food and Drug Administration. Performed at: - [facility] [address] [place], [place] [id number] Rehabilitation Caseworker: Ashley Duggan [facility], Phone: [phone] GEST. AGE ON COLLECTION DATE17.9. weeksNOMD HealthcareGESTAT. AGE BASED ONAs provided.[facility] JosephComment on above:Recalculations are not recommended when gestational dating by LMP and ultrasound are within 10 days. INSULIN DEP DIABETESNo.[facility] HealthcareINTERPRETATIONComment.[facility] Comment on above:Interpretation: Screen Negative This result [...] 35 and older. MATERNAL AGE AT EDD37.1. yrNOMD HealthcareMULTIPLE GESTATIONNo.[facility] OSBR RISK 1 [id number].[facility] HealthcareRACEOther.[facility] JosephRESULTSReport.[facility] St[facility] JosephTEST RESULTS:Negative.[facility]. JosephHpxefchhrrHOTWLT921. lbsNOMD Healthcare PREGNANY N N ULTRASOUND [id number] 17 N 1 Y 225 N N N N N White/ CLINISYNCNOMD HealthcareUrinalysis macro (dipstick) panel (U)on 01-24-2024 Bilirubin, UANegativeNegative - 4(70) +++ mg/dLNOMS HealthcareBlood, UANegative Negative - 50 Slick/mcLNOMS HealthcareClarity, UAClearNOMS HealthcareColor, UA YellowNOMS HealthcareGlucose, UANegativeNegative - 2000(110) ++++ mg/dLNOMS HealthcareInterpretation and review of laboratory resultsAbnormalNOMD Healthcare Ketones, UANegativeNegative - 160(16) ++++ mg/dLNOMS HealthcareLeukocytes, UA TraceNegative - 500+++ Mira/mcLNOMS HealthcareNitrite, UANegativeNegative - PositiveNOMS HealthcarepH, UA6.55 - 9NOMS HealthcareProtein, UANegativeNegative - 2000(20) ++++ mg/dLNOMS HealthcareSpec Grav, UA1.0201 - 1.03[facility] Urobilinogen, UA1.00.2 - 12 mg/dLNOMS HealthcareNOMS HealthcareUrinalysis macro (dipstick) panel (U)on [id number], UANegativeNegative - 4(70) +++ mg/dL [facility] HealthcareBlood, UAPositiveNegative - 50 Slick/mcLNOMS HealthcareComment on [...] UA0.20.2 - 12 mg/dLNOMS HealthcareNOMS HealthcareUS OB TRANSVAGINALon 11-24-2023 [place] [address] Ultrasound Report Signed Patient: PROSPER MCCLENDON MR#: [id number] : 1985 Acct:[id number] Age/Sex: 38 / F ADM Date: 11/24/23 Loc: [facility] Attending Dr: Johnathan Recinos D.O. Ordering Physician: Johnathan Recinos D.O. Date of Service: 11/24/23 Procedure(s): US OB transvaginal Accession Number(s): [id number] cc: KIMBERLYN XIE ; Johnathan Recinos D.O. [address] [address] Patient Name: PROSPER MCCLENDON MRN: [id number] date: 1985 Sex: F Assigned Patient Location: [facility] Current Patient Location: [facility] Accession/Order Number: [id number] Exam Date: 11/24/2023 09:35 Report Date: 11/24/2023 11:27 At the request of: JOHNATHAN RECINOS Procedure: US OB transvaginal EXAMINATION: US [...] Single live intrauterine . Electronically authenticated by: CYNDI SOLIS Date: 11/24/2023 11:27 Dictated By: Cyndi Solis M.D. Signed By: 11/24/23 1130 DD/ 1127 TD/TT: Lav Crewman:TBHRadiology, Radiologist, - 11/24/2023 [place] [address] Ultrasound Report Signed Patient: PROSPER MCCLENDON MR#: [id number] : 1985 Acct:[id number] Age/Sex: 38 / F ADM Date: 11/24/23 Loc: [facility] Attending Dr: Johnathan Recinos D.O. Ordering Physician: Johnathan Recinos D.O. Date of Service: 11/24/23 Procedure(s): US OB transvaginal Accession Number(s): [id number] cc: KIMBERLYN XIE ; Johnathan Recinos D.O. The [place] [id number] Patient Name: PROSPER MCCLENDON MRN: [id number] date: 1985 Sex: F Assigned Patient Location: [facility] Current Patient Location: [facility] Accession/Order Number: [id number] Exam Date: 11/24/2023 09:35 Report Date: 11/24/2023 11:27 At the request of: JOHNATHAN RECINOS Procedure: US OB transvaginal EXAMINATION: US [...] Single live intrauterine . Electronically authenticated by: CYNDI SOLIS Date: 11/24/2023 11:27 Dictated By: Cyndi Solis M.D. Signed By: 11/24/23 1130 DD/ 1127 TD/TT: Lav Crewman: MARIA DOLORES HealthcareRadiology Study observation (narrative)MARIA DOLORES HealthcareUS OB TRANSVAGINALOrdered By: Radiologist Radiology on [id number] Work Phone: No Panel InformationOrdered By: Sanaz Lockwood on 09-03-0690Aavxi Strep (POC)[facility] HospitalC[facility] FLU Quick Testingon [id number]-CoV-2 (COVID-19) RNA J LUIS+probe Ql (Unsp spec)Negative [place] [facility] Other COVID + FLU Quick TestingNegativeNosc[facility] Other Quick Strepon 04-27-2023S. pyogenes Org specific cx Ql (Throat)NegativeHy[place] [facility] Other Quick StrepParabel [facility] Other COVID/FLU/RSV RT-PCRon 34-06-3574EUMX-CoV-2 (COVID-19) RNA J LUIS+probe Ql (Unsp spec)[place] [facility] Other COVID/FLU/RSV RT-PCRPositiveParabel [facility] Other COVID/FLU/RSV RT-PCRNegativeParabel [facility] Other CBC AUTO DIFFon [id number] #0.0 103/ulNormal 0.0-0.1The [facility] HospitalComment on above:Performed By: #### CBC #### [facility] [address] [place] [address] Dr. Dee HumphreyBasophils/100 WBC (Bld)0.2 %Normal0.2-2.0[facility] Comment on above:Performed By: #### CBC #### [facility] [address] [place] [address] Dr. Dee Fleming #0.1 103/ulNormal0.0-0.7The [facility] HospitalComment on above: Performed By: #### CBC #### [facility] [address] [place] [address] Dr. Dee Salehosinophils/100 WBC (Bld)0.6 %Critically low0.9-7.0The [facility] HospitalComment on above:Performed By: #### CBC #### [facility] [address] [place] [address] Dr. Dee Salehrythrocyte distribution width (RBC) [Ratio]14.1 %Oibegj26.0-15.0 The [facility] HospitalComment on above:Performed By: #### CBC #### [facility] [address] [place] [address] Dr. Dee HumphreyHematocrit (Bld) [Volume fraction]37.1 %Ubpkwb29.0-48.0The [facility] HospitalComment on above:Performed By: #### CBC #### [facility] [address] [address] [address] Dee HumphreyHemoglobin (Bld) [Mass/Vol]12.4 g/uZCtqipy31.0-16.0The [facility] HospitalComment on above:Performed By: #### CBC #### [facility] [address] [place] [address] Dr. Dee Cuellar #0.06 10e3/ulCritically high0.00-0.03The [facility] Comment on above:Performed By: #### CBC #### [facility] [address] [place] [address] Dr. Dee Cuellar %0.5 %Normal0.0-0.5The [facility] HospitalComment on above: Performed By: #### CBC #### [facility] [address] [place] [address] Dr. Dee Castano #3.7 103/ulNormal1.2-3.8The [facility] HospitalComment on above:Performed By: #### CBC #### [facility] [address] [place] [address] Dr. Dee Brookshocytes/100 WBC (Bld)28.7 %Piqxly88.5-60.0The [facility] HospitalComment on above:Performed By: #### CBC #### [facility] [address] [place] [address] Dr. Dee De GuzmanUAL DIFF REQNONormalThe [facility] HospitalComment on above: Performed By: #### CBC #### [facility] [address] [place] [address] Dr. Dee Garcia (RBC) [Entitic mass]30.2 zoLpfxpe79.7-34.0The [facility] HospitalComment on above:Performed By: #### CBC #### [facility] [address] [place] [address] Dr. Dee Garcia (RBC) [Mass/Vol]33.4 g/yVRyycxj73.9-35.2The [facility] HospitalComment on above:Performed By: #### CBC #### [facility] [address] [place] [address] Dr. Dee GarciaV (RBC) [Entitic vol]90.5 sPBaeoih40.0-99.0The [facility] HospitalComment on above:Performed By: #### CBC #### [facility] [address] [place] [address] Dr. Dee Camacho #0.7 103/ulNormal0.3-0.8The [facility] HospitalComment on above:Performed By: #### CBC #### [facility] [address] [place] [address] Dr. Dee Delarosaocytes/100 WBC (Bld)5.0 %Normal1.7-12.0[facility] Comment on above:Performed By: #### CBC #### [facility] [address] [place] [address] Dr. Dee Gross #8.5 103/ulCritically high1.4-6.5The [facility] Comment on above:Performed By: #### CBC #### [facility] [address] [place] [address] Dr. Dee Verdugoutrophils/100 WBC (Bld)65.0 %Youbbc55.0-75.0The [facility] HospitalComment on above:Performed By: #### CBC #### [facility] [address] [place] [address] Dr. Dee De Jesuslet mean volume (Bld) [Entitic vol]9.6 fLNormal9.5-13.5The [facility] HospitalComment on above:Performed By: #### CBC #### [facility] [address] [place] [address] Dr. Dee HumphreyPLT317 103/gkFgheuh701-426Gww [facility] HospitalComment on above: Performed By: #### CBC #### [facility] [address] [place] [address] Dr. Dee HumphreyRBC4.10 106/ulCritically low4.20-5.40The [facility] HospitalComment on above:Performed By: #### CBC #### [facility] [address] [address] [address] Dee HumphreyWBC13.1 103/ulCritically high4.0-11.0The [facility] HospitalComment on above:Performed By: #### CBC #### [facility] [address] [place], [place] [address] Dr. Dee HumphreyCT ABD/PELVIS WO CONon 29-09-3933JW ABD/PELVIS WO CON EXAMINATION:CT ABD/PELVIS WO CON [...] Electronically authenticated by: ROCIO CHAU Date: 2022-04-27 20:24[facility] URINE PROFILEon 04-56-1465Elzfrtnhe Ql (U)NegativeNormal NEGATIVEThe [facility] Memorial HospitalComment on above:Performed By: #### PREGU, ERUR #### [facility] [address] [place], [place] [address] Dr. Dee HumphreyClarity (U)CLEARNormalCLEARThe [facility] HospitalComment on above: Performed By: #### PREGU, ERUR #### [facility] [address] [address] [address] Dee Fierro (U)YELLOWNormalYELLOWPromedica Bay Park HospitalComment on above: Performed By: #### PREGU, ERUR #### [facility] [address] [place] [address] Dr. Dee Sutton micrscopic examination will be performed if indicated. NormalThe [facility] HospitalComment on above:Performed By: #### PREGU, ERUR #### [facility] [address] [place] [address] Dr. Dee Lewisose Ql (U)NegativeNormalNEGATIVEPromedica Bay Park HospitalComment on above:Performed By: #### PREGU, ERUR #### [facility] [address] [place] [address] Dr. Dee HumphreyHemoglobin Ql (U)NegativeNormalNEGATIVEPremier Health [facility] on above:Performed By: #### PREGU, ERUR #### [facility] [address] [place] [address] Dr. Dee Griffithones Ql (U)NegativeNormalNEGATIVEPromedica Bay Park HospitalComment on above:Performed By: #### PREGU, ERUR #### [facility] [address] [place] [address] Dr. Dee HumphreyLEUKOCYTESNegativeNormalNEGATIVEPromedica Bay Park HospitalComment on above:Performed By: #### PREGU, ERUR #### [facility] [address] [place] [address] Dr. Dee Burchtrite Ql (U)NegativeNormalNEGATIVEPromedica Bay Park HospitalComment on above:Performed By: #### PREGU, ERUR #### [facility] [address] [place] [address] Dr. Dee HumphreypH (U)5.5 [pH]Normal5-9Prom[facility] HospitalComment on above: Performed By: #### PREGU, ERUR #### [facility] [address] [place] [address] Dr. Dee HumphreySPEC GRAVITY>=1.298Diijkhpe8.005-<=1.025The [facility] Comment on above:Performed By: #### PREGU, ERUR #### [facility] [address] [place] [address] Dr. Dee Pedroza PROTEINNegativeNormalNEGATIVE/ TRACEThe [facility] Comment on above:Performed By: #### PREGU, ERUR #### [facility] [address] [place] [address] Dr. Dee Amaya MICRO INDNOT INDICATEDNormalThe [facility] HospitalComment on above:Performed By: #### PREGU, ERUR #### [facility] [address] [place] [address] Dr. Dee Lewisbilinogen Qn (U)0.2 {Blanca'U}/dLNormal0.2 - 1.0The [facility] HospitalComment on above:Performed By: #### BENJAMINU, ERUR #### [facility] [address] [place] [address] Dr. Dee HumphreyLIPASEon 39-00-7981Yahegu [Catalytic activity/Vol]94.0 U/LNormal 73.0-393.0The [facility] HospitalComment on above:Performed By: #### LIPA, CMP #### [facility] [address] [place] [address] Dr. Dee HumphreyPREGNANCY URon 98-17-6081QBZRWZPES, QUALNegativeNormalNEGATIVEThe [facility] HospitalComment on above:Performed By: #### PREGU, ERUR #### [facility] [address] [place] [address] Dr. Dee HumphreyPROF 14(COMP METB)on 79-84-6834Agrivmd [Mass/Vol]3.9 g/dLNormal 3.4-5.0The [facility] HospitalComment on above:Performed By: #### LIPA, CMP #### [facility] [address] [place] [address] Dr. Dee HumphreyAlbumin/Globulin [Mass ratio]1.0 {ratio}NormalThe [facility] HospitalComment on above:Performed By: #### LIPA, CMP #### [facility] [address] [address] [address] Dee Bryant [Catalytic activity/Vol]87 U/YKqlydy82-834Srm [facility] Community Hospitalment on above:Performed By: #### LIPA, CMP #### [facility] [address] [address] [address] Dee DossT [Catalytic activity/Vol]31 U/FMyzgat44-33Ojh [facility] HospitalComment on above:Performed By: #### LIPA, CMP #### [facility] [address] [address] [address] Dee Gonsalveson gap [Moles/Vol]10.8 mmol/LNormalThe [facility] Comment on above:Performed By: #### LIPA, CMP #### [facility] [address] [address] [address] Dee HumphreyAST [Catalytic activity/Vol]17 U/IEcmlpy99-18Poy [facility] HospitalComment on above:Performed By: #### LIPA, CMP #### [facility] [address] [address] [address] Dee HumphreyBilirubin [Mass/Vol]0.1 mg/dLCritically low0.2-1.0The [facility] HospitalComment on above:Performed By: #### LIPA, CMP #### [facility] [address] [address] [address] Dee HumphreyCalcium [Mass/Vol]8.9 mg/dLNormal8.5-10.1[facility] Comment on above:Performed By: #### LIPA, CMP #### [facility] [address] [place] [address] Dr. Dee HumphreyChloride [Moles/Vol]103 mmol/HHpznpz20-647Csa [facility] Comment on above:Performed By: #### LIPA, CMP #### [facility] [address] [address] [address] Dee HumphreyCO2 [Moles/Vol]26.9 mmol/BNwvxmp17.0-32.0The [facility] Comment on above:Performed By: #### LIPA, CMP #### [facility] [address] [address] [address] Dee HumphreyCreatinine [Mass/Vol]0.80 mg/dLNormal0.55-1.02[facility] HospitalComment on above:Performed By: #### LIPA, CMP #### [facility] [address] [address] [address] Dee SalehGFR-AF MAURITANIAN>60Normal>=60The [facility] HospitalComment on above:Performed By: #### LIPA, CMP #### [facility] [address] [address] [address] Dee SalehGFR-NON AF MAURITANIAN>60Normal>=60The [facility] HospitalComment on above:Performed By: #### LIPA, CMP #### [facility] [address] [address] [address] Dee HumphreyGlobulin (S) [Mass/Vol]3.9 g/dLNormalThe [facility] HospitalComment on above:Performed By: #### LIPA, CMP #### [facility] [address] [address] [address] Dee HumphreyGlucose [Mass/Vol]96 mg/wEEjoyau13-240OjePromedica Bay Park Hospital Comment on above:Performed By: #### LIPA, CMP #### [facility] [address] [address] [address] Dee HumphreyPotassium [Moles/Vol]3.7 mmol/LNormal3.5-5.1The [facility] Comment on above:Performed By: #### LIPA, CMP #### [facility] [address] [address] [address] Dee HumphreyProtein [Mass/Vol]7.8 g/dLNormal6.4-8.2The [facility] Comment on above:Performed By: #### LIPA, CMP #### [facility] [address] [address] [address] Dee HumphreySodium [Moles/Vol]137 mmol/SXyonji827-727Bes [facility] Comment on above:Performed By: #### LIPA, CMP #### [facility] [address] [place] [address] Dr. Dee Fritz nitrogen [Mass/Vol]13.0 mg/dLNormal7.0-18.0The [facility] HospitalComment on above:Performed By: #### LIPA, CMP #### [facility] [address] [place] [address] Dr. Dee Fritz nitrogen/Creatinine [Mass ratio]16.2 mg/mgNormalThe [facility] HospitalComment on above:Performed By: #### LIPA, CMP #### [facility] [address] [place] [address] Dr. Dee Reyes AUTO DIFFon 02-86-5005MGEX #0.0 103/ulNormal0.0-0.1[facility] HospitalComment on above:Performed By: #### CBC #### [facility] [address] [place] [address] Dr. Dee HumphreyBasophils/100 WBC (Bld)0.3 %Normal0.2-2.0[facility] Comment on above:Performed By: #### CBC #### [facility] [address] [place] [address] Dr. Dee Fleming #0.1 103/ulNormal0.0-0.7The [facility] HospitalComment on above: Performed By: #### CBC #### [facility] [address] [place] [address] Dr. Dee Salehosinophils/100 WBC (Bld)0.7 %Critically low0.9-7.0The [facility] HospitalComment on above:Performed By: #### CBC #### [facility] [address] [place] [address] Dr. Dee Salehrythrocyte distribution width (RBC) [Ratio]13.0 %Tsqcif11.0-15.0 The [facility] HospitalComment on above:Performed By: #### CBC #### [facility] [address] [place] [address] Dr. Dee HumphreyHematocrit (Bld) [Volume fraction]39.2 %Hfrlzy57.0-48.0The [facility] HospitalComment on above:Performed By: #### CBC #### [facility] [address] [address] [address] Dee HumphreyHemoglobin (Bld) [Mass/Vol]13.2 g/pMXfdwhq47.0-16.0The [facility] HospitalComment on above:Performed By: #### CBC #### [facility] [address] [address] [address] Dee HumphreyIG #0.05 10e3/ulCritically high0.00-0.03The [facility] Comment on above:Performed By: #### CBC #### [facility] [address] [address] [address] Dee HumphreyIG %0.5 %Normal0.0-0.5The [facility] HospitalComment on above: Performed By: #### CBC #### [facility] [address] [address] [address] Dee Castano #4.2 103/ulCritically high1.2-3.8The [facility] Comment on above:Performed By: #### CBC #### [facility] [address] [place] [address] Dr. Dee Bernalmphocytes/100 WBC (Bld)43.1 %Jfnbha43.5-60.0The [facility] HospitalComment on above:Performed By: #### CBC #### [facility] [address] [place] [address] Dr. Dee HumphreyMANUAL DIFF REQNONormalThe [facility] HospitalComment on above: Performed By: #### CBC #### [facility] [address] [address] [address] Dee Gilliam (RBC) [Entitic mass]30.5 fyYliqnm68.7-34.0The [facility] HospitalComment on above:Performed By: #### CBC #### [facility] [address] [address] [address] Dee GarciaHC (RBC) [Mass/Vol]33.7 g/kNIxkjci58.9-35.2The [facility] HospitalComment on above:Performed By: #### CBC #### [facility] [address] [place] [address] Dr. Dee GarciaV (RBC) [Entitic vol]90.5 dWYvwyap59.0-99.0The [facility] HospitalComment on above:Performed By: #### CBC #### [facility] [address] [place] [address] Dr. Dee Camacho #0.4 103/ulNormal0.3-0.8The [facility] HospitalComment on above:Performed By: #### CBC #### [facility] [address] [place] [address] Dr. Dee Delarosaocytes/100 WBC (Bld)4.4 %Normal1.7-12.0The [facility] Comment on above:Performed By: #### CBC #### [facility] [address] [place] [address] Dr. Dee Gross #4.9 103/ulNormal1.4-6.5The [facility] HospitalComment on above:Performed By: #### CBC #### [facility] [address] [place] [address] Dr. Dee Verdugoutrophils/100 WBC (Bld)51.0 %Mlwbbp04.0-75.0The [facility] HospitalComment on above:Performed By: #### CBC #### [facility] [address] [place] [address] Dr. Dee De Jesuslet mean volume (Bld) [Entitic vol]9.6 fLNormal9.5-13.5The [facility] HospitalComment on above:Performed By: #### CBC #### [facility] [address] [place] [address] Dr. Dee HumphreyPLT364 103/xfUxkyhk338-268Nrp [facility] HospitalComment on above: Performed By: #### CBC #### [facility] [address] [place] [address] Dr. Dee HumphreyRBC4.33 106/ulNormal4.20-5.40The [facility] HospitalComment on above:Performed By: #### CBC #### [facility] [address] [place] [address] Dr. Dee HumphreyWBC9.7 103/ulNormal4.0-11.0The [facility] HospitalComment on above: Performed By: #### CBC #### [facility] [address] [place] [address] Dr. Dee HumphreyLACTATE/LACTIC ACIDon 95-36-1315Psuefsu [Moles/Vol]1.1 mmol/L Normal0.4-1.9The [facility] Hospitalment on above:Performed By: #### PREGU, ERUR #### [facility] [address] [place] [address] Dr. Dee HumphreyLIPASEon 58-42-2996Woawta [Catalytic activity/Vol]79.0 U/LNormal 73.0-393.0The [facility] HospitalComment on above:Performed By: #### CMP, LIPA #### [facility] [address] [place] [address] Dr. Dee HumphreyPROIván 14(COMP METB)on 94-28-4380Qkmjpyr [Mass/Vol]3.8 g/dLNormal 3.4-5.0The [facility] HospitalComment on above:Performed By: #### CMP, LIPA #### [facility] [address] [place] [address] Dr. Dee HumphreyAlbumin/Globulin [Mass ratio]0.9 {ratio}NormalThe [facility] on above:Performed By: #### CMP, LIPA #### [facility] [address] [place] [address] Dr. Dee DossP [Catalytic activity/Vol]80 U/FJsbmhr46-293Ret [facility] HospitalComment on above:Performed By: #### CMP, LIPA #### [facility] [address] [place], [place] [address] Dr. Dee DossT [Catalytic activity/Vol]27 U/QXfjtji83-23Kxd [facility] HospitalComment on above:Performed By: #### CMP, LIPA #### [facility] [address] [address] [address] Dee HumphreyAnion gap [Moles/Vol]9.5 mmol/LNormalThe [facility] HospitalComment on above:Performed By: #### CMP, LIPA #### [facility] [address] [address] [address] Dee HumphreyAST [Catalytic activity/Vol]13 U/LCritically odf93-36Sai [facility] HospitalComment on above:Performed By: #### CMP, LIPA #### [facility] [address] [place] [address] Dr. Dee HumphreyBilirubin [Mass/Vol]0.1 mg/dLCritically low0.2-1.0The [facility] HospitalComment on above:Performed By: #### CMP, LIPA #### [facility] [address] [place] [address] Dr. Dee HumphreyCalcium [Mass/Vol]9.0 mg/dLNormal8.5-10.1[facility] Comment on above:Performed By: #### CMP, LIPA #### [facility] [address] [place] [address] Dr. Dee HumphreyChloride [Moles/Vol]103 mmol/YTtojzg37-578Ozm [facility] Comment on above:Performed By: #### CMP, LIPA #### [facility] [address] [place] [address] Dr. Dee HumphreyCO2 [Moles/Vol]27.1 mmol/ASroxre62.0-32.0The [facility] Comment on above:Performed By: #### CMP, LIPA #### [facility] [address] [place] [address] Dr. Dee HmuphreyCreatinine [Mass/Vol]0.86 mg/dLNormal0.55-1.02The [facility] HospitalComment on above:Performed By: #### CMP, LIPA #### [facility] [address] [address] [address] Dee SalehGFR-AF MAURITANIAN>60Normal>=60The [facility] HospitalComment on above:Performed By: #### CMP, LIPA #### [facility] [address] [address] [address] Dee SalehGFR-NON AF MAURITANIAN>60Normal>=60The [facility] HospitalComment on above:Performed By: #### CMP, LIPA #### [facility] [address] [address] [address] Dee HumphreyGlobulin (S) [Mass/Vol]4.1 g/dLNormalThe [facility] HospitalComment on above:Performed By: #### CMP, LIPA #### [facility] [address] [address] [address] Dee HumphreyGlucose [Mass/Vol]99 mg/xUDteamg39-843QkvPromedica Bay Park Hospital Comment on above:Performed By: #### CMP, LIPA #### [facility] [address] [address] [address] Dee HumphreyPotassium [Moles/Vol]3.6 mmol/LNormal3.5-5.1The [facility] Comment on above:Performed By: #### CMP, LIPA #### [facility] [address] [address] [address] Dee HumphreyProtein [Mass/Vol]7.9 g/dLNormal6.4-8.2The [facility] Comment on above:Performed By: #### CMP, LIPA #### [facility] [address] [address] [address] Dee HumphreySodium [Moles/Vol]136 mmol/FChikbu083-058UevPromedica Bay Park Hospital Comment on above:Performed By: #### CMP, LIPA #### [facility] [address] [address] [address] Dee HumphreyUrea nitrogen [Mass/Vol]12.0 mg/dLNormal7.0-18.0The [facility] HospitalComment on above:Performed By: #### CMP, LIPA #### [facility] [address] [place], [place] [address] Dr. Dee HumphreyUrea nitrogen/Creatinine [Mass ratio]14.0 mg/mgNoNationwide Children's HospitalComment on above:Performed By: #### CMP, LIPA #### [facility] [address] [place], [place] [address] Dr. Dee HumphreyConsent for COVID Vaccineon 06-77-7029SIFD-CoV-2 (COVID-19) RNA J LUIS+probe Ql (Unsp spec)[id number]#1.00CD:127 [facility] HospitalConsent for Treatmenton 15-27-4147Wmcdkbg for [id number]#1.00CD:127[facility] HospitalCoding Summary.on 22-93-4852Cdjwmx Summary.CODING DATE: 08/07/2020 FINAL [facility] STATUS: PAYOR: [place] [employer] DESCRIPTION [employer] - Level [...] By: Yana Paredes Date Saved: 08/07/2020 02:46 pmNOhioHealthAmbulatory Clinical Summaryon 33-78-9824Xzykitlzis Clinical Summary {32-ro-68-7c-52-2w-4u-62-8c-8o-90-1s-de-c2-6e-c5}CD:148977VnbginGnsyggSelect Medical TriHealth Rehabilitation HospitalPatient Educationon 15-28-9286Rtnotcc Educationlurasidone (loo JOAO i done) Latuda What is [...] ? an antiviral such as ritonavir; ? Beloit's wort; or ? seizure medicine such as [...] feel impulsive, irritable, agitate (more content not included)...[facility] Video Visit - Telehealthon 93-67-1050XZ Video Visit - TelehealthStart Time 3:00pm Stop [...] interactive video communications from my office using [employer] due to the restrictions of the COVID-19 pandemic. No physical exam was conducted other than those areas of the body visible to telecommunications with the patient located at [address] [place] [phone], with no one else in attendance. If [...] years: 9. Stopped age (more content not included)...[facility] HospitalComment on above: Result Comment: Electronically Signed By: Maia Dias.mati\Date and Time Signed: 02/22/20 23:17 [facility] Video Visit - Telehealthon [id number] Video Visit - TelehealthStart Time 3:00pm Stop [...] interactive video communications from my office using [employer] due to the restrictions of the COVID-19 pandemic. No physical exam was conducted other than those areas of the body visible to telecommunications with the patient located at [address] [place] [phone], with no one else in attendance. If [...] Father and Sister. Depres (more content not included)...[facility] HospitalComment on above:Result Comment: Electronically Signed By: Deepa [facility], Maia Montero.mati\Date and Time Signed: 02/11/20 14:46 [facility] Video Visit - TelehealthStart Time 3:00pm Stop [...] interactive video communications from my office using [employer] due to the restrictions of the COVID-19 pandemic. No physical exam was conducted other than those areas of the body visible to telecommunications with the patient located at [address] [place] [address], with no one else in attendance. If [...] History Alcohol - Denies (more content not included)...[facility] Comment on above:Result Comment: Electronically Signed By: Deepa [facility], Maia Montero.br\Date and Time Signed: 02/11/20 14:37 [facility] Video Visit - Telehealthon [id number] Video Visit - TelehealthStart Time 3:00pm Stop [...] interactive video communications from my office using [employer] due to the restrictions of the COVID-19 pandemic. No physical exam was conducted other than those areas of the body visible to telecommunications with the patient located at [address] [place] [address], with no one else in attendance. If [...] Abuse, 10/05/2011 Tobacco F (more content not included)...[facility] HospitalComment on above:Result Comment: Electronically Signed By: Deepa [facility]ITALMaia.mati\Date and Time Signed: 01/29/20 21:44 [facility] Video Visit - TelehealthStart Time 3:00pm Stop [...] interactive video communications from my office using [employer] due to the restrictions of the COVID-19 pandemic. No physical exam was conducted other than those areas of the body visible to telecommunications with the patient located at [address] [place] [address], with no one else in attendance. If [...] concerns: No. Yes, 09 (more content not included)...[facility] HospitalComment on above: Result Comment: Electronically Signed By: Deepa [facility]ITALMaia\.mati\Date and Time Signed: 01/29/20 21:38 EDTPatient Educationon 65-67-8131Gosyqol Education aripiprazole (AR i PIP ra welsh) [...] symptoms may include drow (more content not included)...[facility] Video Visit - Telehealthon [id number] Video Visit - TelehealthStart Time 3:00pm Stop [...] interactive video communications from my office using [employer] due to the restrictions of the COVID-19 pandemic. No physical exam was conducted other than those areas of the body visible to telecommunications with the patient located at [address] [place] [phone], with no one else in attendance. If [...] Abuse, 10/05/2011 Tobacco For (more content not included)...[facility] HospitalComment on above:Result Comment: Electronically Signed By: Deepa [facility]ITALMaia.mati\Date and Time Signed: 01/13/20 09:40 EDTPatient Educationon 23-39-7272Gkvngaj Educationaripiprazole (AR i PIP ra zole) [employer] What is the most [...] symptoms may include drow (more content not included)...[facility] Video Visit - Telehealthon [id number] Video Visit - TelehealthStart Time 4:00pm Stop [...] interactive video communications from my office using [employer] due to the restrictions of the COVID-19 pandemic. No physical exam was conducted other than those areas of the body visible to telecommunications with the patient located at [address] [place] [address], with no one else in attendance. If [...] ago Tobacco Use:. N (more content not included)...[facility] HospitalComment on above:Result Comment: Electronically Signed By: Deepa [facility]ITALMaia\Date and Time Signed: 01/07/20 12:38 [facility] Video Visit - Telehealthon [id number] Video Visit - TelehealthStart Time 3:00pm Stop [...] interactive video communications from my office using [employer] due to the restrictions of the COVID-19 pandemic. No physical exam was conducted other than those areas of the body visible to telecommunications with the patient located at [address] [place], [place] [phone], with no one else in attendance. If [...] History Alcoholism: Father and (more content not included)...[facility] HospitalComment on above:Result Comment: Electronically Signed By: Deepa [facility]ITALMaia.mati\Date and Time Signed: 12/30/19 13:50 [facility] - [facility] [id number] Video Visit - TelehealthStart Time 3:00pm Stop [...] interactive video communications from my office using [employer] due to the restrictions of the COVID-19 pandemic. No physical exam was conducted other than those areas of the body visible to telecommunications with the patient located at [address] [place], [place] [phone], with no one else in attendance. If [...] - Denies Alcohol U (more content not included)...[facility] HospitalComment on above:Result Comment: Electronically Signed By: Deepa [facility], Maia Montero.br\Date and Time Signed: 12/23/19 16:54 EDTPatient Educationon 03-36-9519Xeeyosf Educationaripiprazole (AR i PIP ra welsh) [employer] [...] symptoms may include drow (more content not included)...[facility] Video Visit - Telehealthon [id number] Video Visit - TelehealthStart Time 4:00pm Stop [...] interactive video communications from my office using [employer] due to the restrictions of the COVID-19 pandemic. No physical exam was conducted other than those areas of the body visible to telecommunications with the patient located at [address] [place] [phone], with no one else in attendance. If [...] tab(s), Oral, Daily, 5 (more content not included)...[facility] HospitalComment on above:Result Comment: Electronically Signed By: Deepa [facility], Maia Montero.mati\Date and Time Signed: 12/04/19 09:42 EDTPatient Educationon 03-36-4645Gdoslqb Educationbupropion (byoo PRO pee on) Aplenzin, Forfivo [...] slower heart rate, h (more content not included)...[facility] Vital Signs Date TimeVital SignValuePerforming RgoshelweThtbnqgq30-76-1217 13:41-0400Body mass index (BMI) [Ratio]38.96 kg/m2Liza Meraz PA Work Phone: [phone]-[facility] JosephLrhnezcmns96-84-7834 13:41-0400Body tmboas30.62 kgLiza Meraz PA Work Phone: [phone]-[facility] JosephXpyjzvjlrc17-94-5906 13:41-0400Diastolic blood godyuzdj49 mm[Hg]Liza Meraz PA Work Phone: [phone]-[facility] JosephQmvvrthkpu19-92-0233 13:41-0400Systolic blood hjoasxca110 mm[Hg]Liza Meraz PA Work Phone: [phone] [place], [place] [address]Ffpevozdsc56-43-6226 15:17-0500Body mass index (BMI) [Ratio]40.42 kg/m2Liza Meraz PA Work Phone: [phone] [place], [place] [address]Asvaubcjio38-66-7282 15:17-0500Body tcbqeq363.25 kgLiza Meraz PA Work Phone: [phone]-[facility] JosephRzucgswrgi20-29-5257 15:17-0500Diastolic blood mm[Hg]Liza Meraz PA Work Phone: [phone]-[facility] JosephQxhxvndhzn60-70-0193 15:17-0500Systolic blood ghlhpoqr976 mm[Hg]Liza Mreaz PA Work Phone: [phone] [place], [place] [address]Qtqlpujlhy21-52-7246 14:35-0500Body mass index (BMI) [Ratio]41.3 kg/q6Lnahz Jorje DO Work Phone: [phone] [place], [place] [address]Vjdtibnjkw17-12-9044 14:35-0500Body .42 kgCorey Jorje DO Work Phone: [phone] [place], [place] [address]Kslfyxyaqw72-15-0961 14:35-0500Diastolic blood yxwbihup88 mm[Hg]Johnathan Jorje DO Work Phone: [phone] [place], [place] [address]Pzoxyjcygg50-39-1241 14:35-0500Systolic blood ifcjebpj221 mm[Hg]Johnathan Jorje DO Work Phone: [phone] [place], [place] [address]Crtdeefxjx19-07-0559 14:57-0500Body mass index (BMI) [Ratio]41.3 kg/m1Unnih Jorje DO Work Phone: [phone]-[facility] JosephGenlhqsnvd19-93-1282 14:57-0500Body kytncl058.42 kgCorey Jorje DO Work Phone: [phone]-[facility] JosephEmxxymlzbv85-49-7887 14:57-0500Diastolic blood qgscxwid89 mm[Hg]Johnathan Jorje DO Work Phone: [phone]-[facility] JosephBrxgelwftp50-49-5114 14:57-0500Systolic blood intfxfph636 mm[Hg]Johnathan Jorje DO Work Phone: [phone] [place], [place] [address]Ztdvvzetpu81-12-3158 15:04-0500Body mass index (BMI) [Ratio]41.67 kg/m2Amy Kt ANTONIO Work Phone: [phone] [place], [place] [address]Uxedphefiu95-61-3965 15:04-0500Body spefgd799.33 kgLiza ANTONIO Work Phone: [phone]-[facility] JosephNasdxvakfd74-85-3300 15:04-0500Diastolic blood gcillixz77 mm[Hg]Liza ANTONIO Work Phone: [phone] [place], [place] [address]Ujokixafwi03-52-2175 15:04-0500Systolic blood awmeqdfr730 mm[Hg]Liza ANTONIO Work Phone: [phone] [place], [place] [address]Fnluixcgvz70-49-8750 13:59-0500Body mass index (BMI) [Ratio]42.07 kg/d4Alypb Jorje DO Work Phone: [phone])501-[address] [place], [place] [address]Rgekdpathk72-25-9854 13:59-0500Body uwtlqm528.33 kgCorey Jorje DO Work Phone: [phone] [place], [place] [address]Lsyqevnewv40-72-3587 13:59-0500Diastolic blood zeqgncaj39 mm[Hg]Johnathan Jorje DO Work Phone: [phone])545-[address] [place], [place] [address]Jqxnhlfdwy56-87-2970 13:59-0500Systolic blood ssiiniqg574 mm[Hg]Johnathan Jorje DO Work Phone: 1([phone])677-[address] [place], [place] [address]Yicjdvivxn74-81-2891 14:01-0500Body mass index (BMI) [Ratio]41.7 kg/m2Amy Kt PA Work Phone: [facility] JosephHhbgrmhmhe50-50-2569 14:01-0500Body .42 kgLiza Meraz PA Work Phone: [facility] JosephBbihhqtjsg22-34-2871 14:01-0500Diastolic blood tarkakcu82 mm[Hg]Liza Meraz PA Work Phone: [place] [address]Vptzakrjsp01-10-1022 14:01-0500Systolic blood criwggaj428 mm[Hg]Liza Meraz PA Work Phone: [phone] [place] [address]-11-2024 14:26-0500Body mass index (BMI) [Ratio]41.96 kg/m2Amy Kt PA Work Phone: [phone]-[facility] JosephIghvjqveui68-21-7527 14:26-0500Body enzylq856.06 kgLiza Meraz PA Work Phone: [phone]-[facility]5[place] [address]Xezhjlrdbn35-55-5755 14:26-0500Diastolic blood mm[Hg]Liza Meraz PA Work Phone: [phone] [place], [place] [address]Jgqoxlmxvy23-81-5727 14:26-0500Systolic blood rrhjqjyg437 mm[Hg]Liza Meraz PA Work Phone: [phone] [place], [place] [address]Sjueuiygcy41-19-6777 11:20-0500Body mass index (BMI) [Ratio]41.34 kg/q8Lbqzz Jorje DO Work Phone: [facility] JosephGuwzmoquso45-78-4675 11:20-0500Body .51 kgCorey Jorje DO Work Phone: [phone] [place], [place] [address]Armmdnarok90-85-9701 11:20-0500Diastolic blood zqaremno50 mm[Hg]Johnathan Jorje DO Work Phone: [phone]-[facility]7[place] [address]Ihoandnval76-32-4558 11:20-0500Systolic blood mm[Hg]Johnathan Jorje DO Work Phone: [facility] JosephPncbhncbrw09-47-6180 13:57-0400Body mass index (BMI) [Ratio]41.3 kg/t0Gbsrs Jorje DO Work Phone: [phone]10-23-2024 13:57-0400Body iajbze879.42 kgCorey Jorje DO Work Phone: 1(695)[address] [place], [place] [address]2010-23-2024 13:57-0400Diastolic blood mbixnrcw47 mm[Hg]Johnathan Jorje DO Work Phone: 1(762)[address] [place], [place] [address]2010-23-2024 13:57-0400Systolic blood lxkajixa321 mm[Hg]Johnathan Jorje DO Work Phone: 1(894)[address] [place], [place] [address]2010-17-2024 13:03-0400Body ekjayj708 cm Malena Cardona MD Work Phone: [phone])[address] [place], [place] 1417310-17-2024 13:03-0400Body mass index (BMI) [Ratio]39.65 kg/z3BrzxlqvvMalena Cardona MD Work Phone: 1(419)[address] [place], [place] 1417310-17-2024 13:03-0400Body pdsnaq639.52 kgMalena Cardona MD Work Phone: 1(419)[address] [place], [place] 1417310-17-2024 13:03-0400Diastolic blood crliicgd49 mm[Hg]Malena Cardona MD Work Phone: 1(419)[address] [place], [place] 1417310-17-2024 13:03-0400Heart rate 94 /minMalena Cardona MD Work Phone: 1(419)[address] [place], [place] 1417310-17-2024 13:03-0400Systolic blood mm[Hg]Malena Cardona MD Work Phone: 1(419)[address] [place], [place] 1417309-25-2024 11:57-0400Body mass index (BMI) [Ratio]41.15 kg/j0Psatp Jorje DO Work Phone: 1(419)[address] [place], [place] 1472009-25-2024 11:57-0400Body frahqh201.06 kgCorey Jorje DO Work Phone: 1(815)[address] [place], [place] 1472009-25-2024 11:57-0400Diastolic blood eovibwdt11 mm[Hg]Johnathan Jorje DO Work Phone: [facility] JosephIiyshicknq61-68-9774 11:57-0400Systolic blood jtpwmsew238 mm[Hg]Johnathan Jorje DO Work Phone: [facility] JosephTirzvfunmj15-73-1468 15:02-0400Body mass index (BMI) [Ratio]42.07 kg/m2Liza Kt ANTONIO Work Phone: [facility] JosephWjryhenwiw50-44-3531 15:02-0400Body cehpqw234.33 kgLiza Corderooliver ANTONIO Work Phone: [facility] JosephBtjzqdoklt39-79-3107 15:02-0400Diastolic blood oqypsbid13 mm[Hg]Liza ANTONIO Work Phone: [facility] JosephDysjjqdttn06-59-8987 15:02-0400Systolic blood ftdyirkx344 mm[Hg]Liza ANTONIO Work Phone: [facility] JosephEuodracyoi87-98-4272 11:22-0400Body mass index (BMI) [Ratio]40.79 kg/r7Zzvpi Jorje DO Work Phone: [facility] JosephCmsualvjto74-92-3498 11:22-0400Body wrwpge729.15 kgCorey Jorje DO Work Phone: [facility] JosephWmenzmojej62-84-5410 11:22-0400Diastolic blood okritjco87 mm[Hg]Johnathan Jorje DO Work Phone: [facility] JosephOfawbbvbcd94-98-9888 11:22-0400Systolic blood bruvvyld824 mm[Hg]Johnathan Jorje DO Work Phone: [facility] JosephHsrpobwucq28-02-6173 14:24-0400Body dngwcy822.02 [facility] 14:24-0400Body mass index (BMI) [Ratio]40.2 kg/e7AebmjyqowSalem City Hospital04-19-2024 14:24-0400Body gwirbibxyvj36.4 [degF][facility]04-19-2024 14:24-0400Body ugxtcd085.02 kgSal[facility]04-19-2024 14:24-0400Diastolic blood wzymxqhm90 mm[Hg][facility]04-19-2024 14:24-0400 Heart xbdh203 /[facility]04-19-2024 14:24-0400 Respiratory rate16 /[facility]04-19-2024 14:24-0400 SaO2% (BldA) [Mass fraction]98 %[facility]04-19-2024 14:24-0400Systolic blood zebnytss678 mm[Hg][facility] 04-27-2023 16:30-0500Body etgvdh678.02 cmAsadacapri Fabián Other [employer] Other 12-28-2023 16:30-0500Body mass index (BMI) [Ratio] 40.92 kg/y6WzsgjSanaz Lockwood Other [employer] Other 12-28-2023 16:30-0500Body iylrqotlqku38.2 [degF]Sanaz Lockwood Other [employer] Other 12-28-2023 16:30-0500Body .78 kgReginocapri Fabián Other [employer] Other 12-28-2023 16:30-0500Respiratory rate18 /swatiSanaz Lockwood Other [employer] Other 12-28-2023 16:30-9229MeT9% (BldA) [Mass fraction]99 % Sanaz Lockwood Other [employer] Other 01-10-2023 14:45-0500Body jiibfe423.02 Aston Han Other [employer] Other 01-10-2023 14:45-0500Body mass index (BMI) [Ratio] 38.97 kg/j2HcqniugqxKaylah Han Other [employer] Other 01-10-2023 14:45-0500Body bjeuufeqazo79.3 [degF] Kaylah Han Other [employer] Other 01-10-2023 14:45-0500Body zzjnno65.79 kgKaylah Han Other [employer] Other 338344-85-2675 22:40-0500Pulse (Heart Rate)84 /[facility]02-29-2020 22:40-0500Pulse Ohibwwze66 % [facility]02-29-2020 22:35-0500BP Njepyltoj62 mm[Hg][facility] Vjw03-40-7631 22:35-0500BP Gomrqdjd631 mm[Hg][facility]02-29-2020 21:11-0500BMI (Body Mass Index)33.1 kg/y7PtrlkxKindred Healthcare02-29-2020 21:11-0500Body Whydmlrnfze18.8 [degF][facility] Yup49-62-4554 21:11-0500Body jvjuoj78.8 kgProm[facility]02-29-2020 21:11-6584Kertqg758.02 cmPamelHolzer Medical Center – [facility]02-29-2020 21:11-0500Respiratory Rate20 /[facility] Encounters Encounter DateEncounter TypeCare ProviderFacilityStart: 02-18-2025 End: 60-46-1836ycrotltfjkVmlbhg Sue Cramer-LAB [facility] HospStart: 02-18-2025 End: 61-67-5604Abtvrnnb ReferredParigoberto Xie DIRECTOR OF PRODUCT MANAGEMENT-LAB [facility] HospStart: 10-21-2024 End: 22-69-3546kjsxdqlvlzWbgvqza PayFacility:[facility] Start: 07-18-2024 End: 55-18-7163fassejbtxqWZL MELHCORSagar AvailableStart: 07-18-2024 End: 15-03-3285Ufcpcrbsrp care visitLiza ANTONIO Work Phone: NONE BCP OBComment on above:6 weeks follow-upStart: 06-11-2024 End: 41-09-9959hidygsisftSSC MELCHORSagar AvailableStart: 06-11-2024 End: 19-71-6278Ebvxgt follow up visit related to original pxLiza ANTONIO Work Phone: NOMS BCP OBComment on above:Postoperative visit; S/P sectionStart: 06-11-2024 End: 23-06-1718Eolzkdpati ANTONIO Work Phone: NOMS BCP OBStart: 06-11-2024 End: 26-31-2635Bcqpyl flowsRupa ANTONIO Work Phone: NOFF BCP OBStart: 06-05-2024 End: 12-71-3081Hkarhqnru Result EncounterCorey Jorje DO Work Phone: NOJW External Department UnsolicitedStart: 06-05-2024 End: 17-90-4556Olmecvvfy Result EncounterCorey Jorje DO Work Phone: NOKM External Department UnsolicitedStart: 06-04-2024 End: 64-09-9308Aewwembnh Result EncounterCorey Jorje DO Work Phone: NOTP External Department UnsolicitedStart: 06-04-2024 End: 84-34-4562Eejsgvecl Result EncounterCorey Jorje DO Work Phone: NOTK External Department UnsolicitedStart: 05-31-2024 End: 14-60-6443Cwgqwjfsv Result EncounterLiza ANTONIO Work Phone: noms External Department UnsolicitedStart: 05-31-2024 End: 53-03-6416Xejdrvasi Result EncounterAmy Kt ANTONIO Work Phone: noms External Department UnsolicitedStart: 05-30-2024 End: 78-23-1716Tayiozcuf Result EncounterCorey Jorje DO Work Phone: noms External Department UnsolicitedStart: 05-30-2024 End: 54-53-2056Zervyeual Result EncounterCorey Jorje DO Work Phone: noms External Department UnsolicitedStart: 05-29-2024 End: 28-62-5252nycvidehusDFWAN FAZIONot AvailableStart: 05-29-2024 End: 07-53-6519Uqqsfqdd flow sheetCorey Jorje DO Work Phone: NOQS BCP OBComment on above:Third trimester ; 36 weeks gestation of pregnancyStart: 05-29-2024 End: 87-43-0843Hdohdy flowsheetCorey Jorje DO Work Phone: noms BCP OBStart: 05-29-2024 End: 03-66-0231Sqkjdy flowsheetCorey Jorje DO Work Phone: NOUT BCP OBStart: 05-29-2024 End: 87-54-0354Xmbcxzpkp Result EncounterCorey Jorje DO Work Phone: noms External Department UnsolicitedStart: 05-24-2024 End: 39-82-5191Bccohfptq Result EncounterAmy Kt ANTONIO Work Phone: noms External Department UnsolicitedStart: 05-24-2024 End: 59-16-7501Dwzmhcamh Result EncounterAmy Kt ANTONIO Work Phone: noms External Department UnsolicitedStart: 05-22-2024 End: 41-88-6808jfwxkeweskTWZTU FAZIONot AvailableStart: 05-22-2024 End: 97-26-0933Ytylpccs flow sheetCorey Jorje DO Work Phone: NOMS BCP OBComment on above:Third trimester ; 35 weeks gestation of ; Gestational diabetes mellitus (GDM) in third trimester, gestational diabetes method of control unspecifiedStart: 05-22-2024 End: 94-44-1412Dzqtjo flowsheetCorey Jorje DO Work Phone: NOMS BCP OBStart: 05-22-2024 End: 14-53-9142Ldwata flowsheetCorey Jorje DO Work Phone: NOMS BCP OBStart: 05-17-2024 End: 93-00-6480Jrgrmmota Result EncounterAmy Kt ANTONIO Work Phone: NOMS External Department UnsolicitedStart: 05-17-2024 End: 70-76-6377Iftwghuyl Result EncounterLiza ANTONIO Work Phone: NOMS External Department UnsolicitedStart: 05-13-2024 End: 93-02-2366yiobmgsvzpTKT RAMEYNot AvailableStart: 05-13-2024 End: 68-20-5782Vfzpto flowsheetLiza ANTONIO Work Phone: NODR BCP OBStart: 05-13-2024 End: 04-47-5698Jjdxpo flowsRupa ANTONIO Work Phone: NOMS BCP OBStart: 05-13-2024 End: 33-12-5525Aqjmeociy Result EncounterCorey Jorje DO Work Phone: noMS External Department UnsolicitedStart: 05-13-2024 End: 44-50-9246Amuljmiu flow sheetLiza ANTONIO Work Phone: NOMS BCP OBComment on above:33 weeks gestation of ; Third trimester ; Elevated blood pressure complicating in third trimester, antepartum; Gestational diabetes mellitus (GDM) in third trimester, gestational diabetes method of control unspecified; Insulin controlled gestational diabetes mellitus (GDM) during , antepartumStart: 05-09-2024 End: 35-88-9373gfjzfwwykdSQSMR FAZIONot AvailableStart: 04-22-2024 End: 70-47-2173Dgxxekvtn Result EncounterCorey Jorje DO Work Phone: noMS External Department UnsolicitedStart: 04-22-2024 End: 42-77-5707Dhishxndr Result EncounterCorey Jorje DO Work Phone: noMS External Department UnsolicitedStart: 04-22-2024 End: 62-38-6645mxumbrpiuqTvydc FazioFacility:[facility] Start: 04-03-2024 End: 12-75-2240Crjddf flowsheetCorey Jorje DO Work Phone: noms [facility] OBStart: 04-03-2024 End: 97-94-7481Zgdetw flowsheetCorey Jorje DO Work Phone: NOMS [facility] OBStart: 04-03-2024 End: 78-80-6627Kjwiayfyd Result EncounterCorey Jorje DO Work Phone: noMS External Department UnsolicitedStart: 04-03-2024 End: 87-14-0582Winnyugl Result EncounterCorey Jorje DO Work Phone: noMS External Department UnsolicitedStart: 04-03-2024 End: 81-37-1083Npgfzlgm flow sheetCorey Jorje DO Work Phone: NOM[facility] OBComment on above:28 weeks gestation of ; Third trimester ; Flank pain; Acute cystitis with hematuria; Urinary tract infection without hematuria, site unspecifiedStart: 04-03-2024 End: 77-76-5486lrygrymlkhJIYCS FAZIONot AvailableStart: 03-21-2024 End: 75-97-9664Rmworsgxe Result EncounterCorey Jorje DO Work Phone: NOMS External Department UnsolicitedStart: 03-21-2024 End: 48-57-5303Xrfusiaxv Result EncounterCorey Jorje DO Work Phone: noMS External Department UnsolicitedStart: 03-21-2024 End: 92-71-4853vzdsbjamqhRHV RAMEYNot AvailableStart: 03-21-2024 End: 82-81-4551Eioccbik flow sheetLiza ANTONIO Work Phone: noms BCP OBComment on above:Second trimester ; 26 weeks gestation of ; Elevated glucose tolerance test; Gestational diabetes mellitus (GDM), antepartum, gestational diabetes method of control unspecifiedStart: 03-14-2024 End: 81-60-2483wdluzzkxjsMPNAW R [facility] HospitalStart: 03-11-2024 End: 83-75-7176Cxzvhx Judit ANTONIO Work Phone: noms BCP OBStart: 03-11-2024 End: 79-75-9401Rwodfj Judit ANTONIO Work Phone: noms BCP OBStart: 03-11-2024 End: 01-49-0717eeeznsvsyyUUW RAMEYNot AvailableStart: 03-11-2024 End: 92-43-8943Zjykcbiq flow sheetLiza ANTONIO Work Phone: noms BCP OBComment on above:24 weeks gestation of ; Second trimester ; Acute cystitis with hematuriaStart: 03-06-2024 End: 89-54-5409Vpgwdafnn Result EncounterCorey Jorje DO Work Phone: noms External Department UnsolicitedStart: 03-06-2024 End: 97-72-1296Phwfykman Result EncounterCorey Jorje DO Work Phone: noms External Department UnsolicitedStart: 03-06-2024 End: 48-83-5994tbkzhrrtjwPSHRM FAZIONot AvailableStart: 03-06-2024 End: 57-69-8330Vlztfsza flow sheetCorey Jorje DO Work Phone: noms BCP OBComment on above:24 weeks gestation of ; Second trimester ; Flank pain; Acute cystitis with hematuriaStart: 02-26-2024 End: 08-30-7347nekbeukvzqBFDZJGCQ [facility] HospitalStart: 02-21-2024 End: 84-01-8160Nrfges flowsheetCorey Jorje DO Work Phone: noms BCP OBStart: 02-21-2024 End: 21-64-7703Sftdkb flowsheetCorey Jorje DO Work Phone: noms BCP OBStart: 02-21-2024 End: 89-45-1121jbhriafazpZZCFB FAZIONot AvailableStart: 02-21-2024 End: 03-34-6438Mpieiwxt flow sheetCorey Jorje DO Work Phone: [facility] OBComment on above:22 weeks gestation of ; Second trimester ; Diabetes mellitus screeningStart: 02-15-2024 End: 20-98-3009Cftuas consultation new/estab patient 62 Steffen Cardona MD Work Phone: [phone]-Wpgvg Medicine at [facility] Comment on above:21 weeks gestation of (Primary Dx); Multigravida of advanced maternal age in second trimester; Pyelonephritis affecting in second trimester; Bipolar disease during in second trimester ([facility]); Obesity affecting in second trimester, unspecified obesity type; BMI 39.0-39.9,adult; History of section complicating ; Vapes nicotine containing substance; Current rao with 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, antepartum; History of delivery, currently Start: 02-15-2024 End: 42-19-8500qssnsxymdkIKQGIWOP P DOCHEVAHenry County Hospital SystemComment on above:21 weeks gestation of (Primary Dx); Obesity affecting in second trimester, unspecified obesity typeStart: 02-15-2024 End: 39-54-7920ofdrsxebmoXFJXD R FAZIOProClermont County Hospitalca [facility] Hospitaltart: 02-14-2024 End: 23-90-7392Dneturfvx Result EncounterCorey Jorje DO Work Phone: noms External Department UnsolicitedStart: 02-14-2024 End: 77-89-2264Ekcvdehea Result EncounterCorey Jorje DO Work Phone: noms External Department UnsolicitedStart: 02-09-2024 End: 25-48-0249Pgxvddcivl and management of inpatientCAMILLE MANNYONProMedica [facility] Hospitaltart: 02-08-2024 End: 06-32-3267Nuvdzxqing and management of inpatientDAVID Abhilash LLOYDProMedica Yulee HospitalStart: 01-25-2024 End: 30-31-0733Bvquw Jorje Cardona MD Work Phone: [phone]-Jdytg Medicine at [facility] Start: 01-24-2024 End: 46-67-5606Xqlmbh flowsheetCorey Jorje DO Work Phone: noms BCP OBStart: 01-24-2024 End: 11-87-5605Nudklbqzg Result EncounterCorey Jorje DO Work Phone: noms External Department UnsolicitedStart: 01-24-2024 End: 78-35-2272Jcphampv Result EncounterCorey Jorje DO Work Phone: noms External Department UnsolicitedStart: 01-24-2024 End: 90-87-1026Jguffwvt Result EncounterCorey Jorje DO Work Phone: noms External Department UnsolicitedStart: 01-24-2024 End: 10-45-9780vakyncvrubMTSGF FAZIONot AvailableStart: 01-24-2024 End: 52-33-4335Hykuecr encounter procedureCorey Jorje DO Work Phone: noms HealthcareStart: 01-24-2024 End: 43-08-3819Zsiukliu preventive med est patient 18-39 yrsCorey Jorje DO Work Phone: noms BCP OBComment on above:18 weeks gestation of ; Well woman exam with routine gynecological exam; Screening, , for anatomic survey; Exposure to STD; Vaginal dischargeStart: 01-03-2024 End: 54-81-8304Liyrlgfp flow sheetLiza ANTONIO Work Phone: noms BCP OBComment on above:Rash; Second trimester pregnancyStart: 01-03-2024 End: 38-20-9032cbnmdbcoecXQA RAMEYNot AvailableStart: 12-25-2023 End: 47-46-1088Ygmgsd flowsheetCorey Jorje DO Work Phone: noms BCP OBStart: 12-25-2023 End: 45-74-2311Ggfmgi flowsheetCorey Jorje DO Work Phone: NOBY BCP OBStart: 12-25-2023 End: 96-99-6037xgpyzbdzjhRMCNN FAZIONot AvailableStart: 12-25-2023 End: 31-98-4075Bdqoeqwq flow sheetCorey Jorje DO Work Phone: NOIS BCP OBComment on above:Second trimester Start: 11-24-2023 End: 52-16-7099Pppotrtfw Result EncounterCorey Jorje DO Work Phone: noms External Department UnsolicitedStart: 11-24-2023 End: 30-55-9125Czjuldesc Result EncounterCorey Jorje DO Work Phone: noms External Department UnsolicitedStart: 11-24-2023 End: 03-74-2450yorrncsustMJFVN FAZIONot AvailableStart: 08-18-2023 End: 92-56-7623girkkavwltRiidptxqvRiverside Methodist Hospital Work Phone: Start: 08-18-2023 End: 91-28-1247Plrvjhs encounter procedureGood [facility] [place] Work Phone: Start: 04-27-2023 End: 09-64-3038juponnywmmIbyop Keller Other [employer] Other Start: 30-90-7451Gvmnzo outpatient visit 25 minutes Sanaz Laney [facility] ClydeStart: 05-10-2022 End: 91-47-8070gornlzbmsgZxymavjxj Breault Other [employer] Other Start: 87-34-4396Gbdpbk outpatient new 20 minutes Kaylah HanFPG [facility] Care ClydeStart: 04-27-2022 End: 68-50-3133zcztcxlulyJQVXOE CRAMERFacility:N4Hjpli: 03-07-2022 End: 55-66-8667augwznsfimWYFPMD CRAMERFacility:M0Pxicg: 45-40-6054khhjfkaygvIJ JAZIEL HOYFacility:F5Msjij: 06-29-2019 End: 63-36-0311Rxjqgjenz department patient visitKindred Healthcare-Emer[facility] Procedures DateProcedureProcedure DetailPerforming ClinicianStart: 67-54-3208BDZ CBC WITH AUTO DIFFCorey Jorje DO Work Phone: Start: 54-18-1135GWD CBC WITH AUTO DIFFCorey Jorje DO Work Phone: Start: 49-42-6962XP OB BPP W NON-STRESSAmy Kt PA Work Phone: Start: 82-20-9427BS OB BPP W NON-STRESSCorey Jorje DO Work Phone: Start: 04-60-6555MSB CBC WITH AUTO DIFFCorey Jorje DO Work Phone: Start: 00-61-7911Ogxij dip stick/tablet rgnt non-auto w/o micrscpCorey Jorje DO Work Phone: Start: 60-10-4727VM OB BPP W NON-STRESSAmy Kt PA Work Phone: Start: 40-45-6629Hjxrw dip stick/tablet rgnt non-auto w/o micrscpCorey Jorje DO Work Phone: Start: 21-53-3440RW OB BPP W NON-STRESSAmy Mobridge PA Work Phone: Start: 96-26-2537SP OB CERVICAL LENGTHCorey Jorje DO Work Phone: Start: 25-97-5736YO OB BPP W NON-STRESSCorey Jorje DO Work Phone: Start: 50-13-3874Vilny dip stick/tablet rgnt non-auto w/o micrscpAmy Kt ANTONIO Work Phone: Start: 87-24-2104YBE UA (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 IND.Johnathan Jorje DO Work Phone: Start: 45-85-8703UXNWROHBS VAGINITIS (HTRX)Johnathan IP Street DO Work Phone: Start: 23-05-6193RYW BUNCorey IP Street DO Work Phone: Start: 89-07-8563VYI CBC WITH AUTO DIFFCorey IP Street DO Work Phone: Start: 70-91-8245RYXD LIVER PANELCorey IP Street DO Work Phone: Start: 02-38-6007PQS CREATININECorey Jorje DO Work Phone: Start: 93-40-7146KVI UA (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 IND.Johnathan IP Street DO Work Phone: Start: 78-60-7481WPO URINE MICROSCOPIC ONLYCorey IP Street DO Work Phone: Start: 06-33-1115Fnygf dip stick/tablet rgnt non-auto w/o micrscpCorey Jorje DO Work Phone: Start: 15-50-0636DO OB GROWTHCorey Jorje DO Work Phone: Start: 99-70-1983Sexbe dip stick/tablet rgnt non-auto w/o micrscpAmy Kt ANTONIO Work Phone: Start: 51-34-8572IJI CBC WITH AUTO DIFFCorey Jorje DO Work Phone: Start: 79-40-1026Dsefe dip stick/tablet rgnt non-auto w/o micrscpCorey Jorje DO Work Phone: Start: 96-84-8394NW RENAL BICorey Jorje DO Work Phone: Start: 53-67-4151NEH UA (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 IND.Johnathan Jorje DO Work Phone: Start: 18-24-3709Bijzs dip stick/tablet rgnt non-auto w/o micrscpCorey Jorje DO Work Phone: Start: 25-40-8521Ngjlv dip stick/tablet rgnt non-auto w/o micrscpCorey Jorje DO Work Phone: Start: 02-15-2024H/O: sectionHistory of section complicating pregnancyMalena Cardona MD Work Phone: Start: 15-42-5583Qi uterus limited 1/> fetusesCorey IP Street DO Work Phone: Start: 30-42-0966HHQQIIJXFT/DISCHARGE PLUS VAGINITIS (HTRX)Johnathan IP Street DO Work Phone: Start: 01-56-3310MAF, SERUM, OPEN SPINA BIFIDACorey Jorje DO Work Phone: Start: 27-00-5797Kiqvo dip stick/tablet rgnt non-auto w/o micrscpCorey Jorje DO Work Phone: Start: 47-39-7216Avziwpvjpbw observation [Identifier] in Cervix by Cyto stainCorey IP Street DO Work Phone: Start: 72-42-2041Qragr dip stick/tablet rgnt non-auto w/o micrscpAmy Kt ANTONIO Work Phone: Start: 72-45-3763ZO OB TRANSVAGINALCorey Jorje DO Work Phone: Start: 15-02-8660Qxrex Strep (POC)H/O: sectionS/P sectionAmy Kt ANTONIO Work Phone: Plan of Treatment DateCare ActivityDetailAuthorStart: 56-64-6649Sslkvggra for malignant neoplasm of cervixNOMS HealthcareStart: 74-56-0737Wurmpsva identified in Urine by Culture Urine CultureWilson Street Hospitaltart: 05-79-5276Ujkvy culture [address] Hospitaltart: 64-38-1373Zvroo BMI ScreeningAdult BMI ScreeningProPremier Health [facility] SystemStart: 99-12-2870Imyfbeo ScreeningTobacco ScreeningProPremier Health [facility] SystemStart: 02-14-2025 End: 82-81-5202MP MFM with or without consultUS MFM with or without consult Imaging Routine 21 weeks gestation of Obesity affecting in second trimester, unspecified obesity type Expected: 02/14/2025 (Approximate), Expires: 02/14/2025[facility] Work Phone: comment on above:Expected: 02/14/2025 (Approximate), Expires: 02/14/2025Start: 06-11-2024 End: 17-87-5446Dsgwule encounter zqxjtjmim49/11/2025 2:40 PM EST Office Visit [facility] OB [address] [place] [place] [address] Liza Meraz PA [address] [place], [place] [id number] NOMS BCP OBStart: 05-29-2024 End: 11-91-6030Hquypej encounter cjikmuaec22/29/2025 2:20 PM EST Routine [facility] [address] [place] [place] [address] Jonhathan Recinos DO [address] [place], [place] [id number] NOMS BCP OBStart: 05-29-2024 End: 90-43-8555GCDCAGO, GROUP B STREP WITH SUSCEPTIBLITYCULTURE, GROUP B STREP WITH SUSCEPTIBLITY Lab Routine Third trimester Expected: 05/29/2024, Expires: 05/29/2025[facility] Work Phone: comment on above:Expected: 05/29/2024, Expires: 05/29/2025Start: 05-22-2024 End: 10-61-6324Phgtymo encounter zwzeiblkt16/22/2025 2:20 PM EST Routine [facility] [address] [address] Johnathan Recinos, DO [facility] [address] [place], [place] [id number] NOMS BCP OBStart: 05-13-2024 End: 37-32-7674WQ biophysical profile w non stress testUS biophysical profile w non stress test Imaging Routine Elevated blood pressure complicatingpregnancy in third trimester, antepartum Gestational diabetes mellitus (GDM) in third trimester, gestational diabetes method of control unspecified Expected: 05/13/2024 (Approximate), Expires: 05/13/2025[facility] Work Phone: comment on above:Expected: 05/13/2024 (Approximate), Expires: 05/13/2025Start: 05-09-2024 End: 40-36-3058Nsnyyeemsnxw / ancillary services /09/2025 8:30 AM EST Ancillary Procedure [facility] OB [address] [place] [address] NOMS BCP OBStart: 04-03-2024 End: 76-14-1172Cqoyodm encounter procedureNOMS BCP OBComment on above:Arrived Start: 04-03-2024 End: 28-25-0127Fczuccsuerpq / ancillary services wbpehsklqa43/04/2024 1:00 PM EST Ancillary Procedure [facility] OB [address] [place] [address] NOMS BCP OBStart: 03-21-2024 End: 94-22-6794Fnxqzmssswm of glucose 3 hours after glucose challenge for glucose tolerance testGlucose tolerance, 3 hours Lab Routine Elevated glucose tolerance test Expected: 03/21/2024 (Approximate), Expires: 03/21/2025[facility] Work Phone: comment on above:Expected: 03/21/2024 (Approximate), Expires: 03/21/2025Start: 03-21-2024 End: 23-57-5187ST for pregnancyUS OB SCAN FOR GROWTH Imaging Routine Gestational diabetes mellitus (GDM), antepartum, gestational diabetes method of control unspecified Expected: 03/21/2024 (Approximate), Expires: 03/21/2025[facility] HealthcareComment on above:Expected: 03/21/2024 (Approximate), Expires: 03/21/2025Start: 03-21-2024 End: 23-72-7931Yztvmme encounter uwvrubgbj73/21/2024 1:30 PM EST Routine [facility] [address] [place] [place] [id number] Liza Meraz PA [address] [place], [place] [id number] NOMS BCP OBStart: 03-14-2024 End: 78-26-9396Iujigcr encounter ahufejyaa87/14/2024 9:45 AM EST Appointment [facility] [address] [place] [address] [phone] [facility] US ImagingStart: 02-22-2024 End: 91-83-4507Ducwnnj encounter edkioqnbu19/24/2024 10:15 AM EDT Appointment [facility] [place] [address] [address] [place] [address] [phone] Medicine [place]invirtua [facility] centerStart: 02-21-2024 End: 58-66-5688GOS panel - Blood by Automated countCBC Lab Routine Diabetes mellitus screening Expected: 02/21/2024 (Approximate), Expires: 02/20/2025[facility] Work Phone: comment on above:Expected: 02/21/2024 (Approximate), Expires: 02/20/2025Start: 02-21-2024 End: 78-61-6892Osbuadeoovz of glucose 1 hour after glucose challenge for glucose tolerance testGlucose tolerance, 1 hour Lab Routine Diabetes mellitus screening Expected: 02/21/2024 (Approximate), Expires: 02/20/2025[facility] HealthcareComment on above:Expected: 02/21/2024 (Approximate), Expires: 02/20/2025Start: 02-21-2024 End: 15-76-2735Pzfyfjf encounter /23/2024 1:50 PM EDT Routine [facility] [address] [place] [place] [id number] Johnathan Recinos, DO [address] [place] [address] NOMS BCP OBStart: 02-12-2024 End: 13-73-1823Aebbnuy encounter procedureSelect Medical Specialty [facility] US ImagingStart: 01-24-2024 End: 22-31-9294Lozxn fetoprotein, maternalAlpha fetoprotein, maternal Lab Routine 18 weeks gestation of Expected: 01/24/2024 (Approximate), Expires: 02/23/2024[facility] HealthcareComment on above:Expected: 01/24/2024 (Approximate), Expires: 02/23/2024Start: 01-22-2024 End: 62-66-3809Ebhkuei encounter vlibhdbyd89/23/2024 10:20 AM EDT Routine [facility] [address] [place] [address] Johnathan Recinos, DO [address] [place] [address] NOMS BCP OBStart: 39-31-2278KEUNX-19 Vaccine ( season)COVID-19 Vaccine ( season)[facility] SystemStart: 39-35-4171Cfgsfnuyt vaccinationDAVIS HOSPITAL AND MEDICAL CENTER HealthcareStart: 95-50-7454DUjE,Tdap and Td Vaccines (2 - Td or Tdap)DTaP,Tdap and Td Vaccines (2 - Td or Tdap)[facility] SystemStart: 83-46-5416Qafjbyexu for malignant neoplasm of cervixNOMS HealthcareStart: 68-99-2561Azxgqoyhu for malignant neoplasm of cervixPap SmearNOMD HealthcareStart: 55-88-0977Gjpwh BMI Follow Up PlanAdult BMI Follow Up PlanHenry County Hospital SystemStart: 12-43-5960Jrxhh BMI ScreeningAdult BMI ScreeningHenry County Hospital SystemStart: 65-71-0178Ugrbnfxbcu ScreeningDepression ScreeningHenry County Hospital SystemStart: 09-84-9223Tthcqwe ScreeningTobacco ScreeningMarymount HospitalBacteria identified in Urine by CultureUrine culture Microbiology Routine 24 weeks gestation of Second trimester Ordered: 03/06/2024[facility] Healthcare Work Phone: comment on above:Ordered: 03/06/2024acteria identified in Urine by CultureUrine culture Microbiology Routine Flank pain Acute cystitis with hematuria Urinary tract infectionwithout hematuria, site unspecified Ordered: 04/03/2024[facility] Healthcare Work Phone: comment on above:Ordered: 04/03/2024HLAMYDIA TRACHOMATIS (GENITO/STI)CHLAMYDIA TRACHOMATIS (GENITO/STI) Lab Routine Exposure to STD Ordered: 01/24/2024[facility] HealthcareComment on above:Ordered: 01/24/2024 Cytology Cervical or vaginal smear or scraping studyPap Smear Pathology and Cytology Routine Well woman exam with routine gynecological exam Ordered: [facility] HealthcareComment on above:Ordered: 01/24/2024Human papilloma virus DNA [Presence] in Unspecified specimen by Probe with amplificationHPV DNA probe, amplified Microbiology Routine Well woman exam with routine gynecological exam Ordered: 01/24/2024[facility] HealthcareComment on above:Ordered: 01/24/2024 Neisseria gonorrhoeae DNA [Presence] in Unspecified specimen by J LUIS with probe detectionNeisseria gonorrhea DNA probe, direct Lab Routine Exposure to STD Ordered: 01/24/2024[facility] HealthcareComment on above:Ordered: 01/24/2024atient EducationEpinephrine (By injection) Anaphylaxis (ED) General Allergic Reaction (ED)[facility] CtrPatient referralFostoria City Hospital Ctr SURESWAB(R) ADVANCED VAGINITIS PLUS, TMASURESWAB(R) ADVANCED VAGINITIS PLUS, TMA Pathology and Cytology Routine Vaginal discharge Ordered: 01/24/2024[facility] Work Phone: comment on above:Ordered: 01/24/2024 Immunizations Immunization DateImmunizationNotesCare BtpfjmwaYabcwgxe71-66-2584wnlooaocl virus vaccine, unspecified formulationCorey Jorje DO Work Phone: [facility] Healthcare Payers DatePayer CategoryPayerPolicy [id number] 2024 [id number] 2024Blue Cross Blue ShieldBCBS Member Subscriber Plan / Payer (Effective 2023-Present) Name: Prosper Mcclendon Relation to Subscriber: Spouse Name: SANTINO MCCLENDON Date of : 1983 Address: [address] [place] [address] Payer ID: Not on file Type: Not on file Address: [place] [id number] - [place] [id number]0-2350PfvwqxgFIEK BCBS [id number] 2023-Present [phone] [address] [place] [address] 1.2.840.783610.1.13.693.2.7.3.260832.55270-78-0925Dlzpupv Health Insurance 1.2.840.364260.1.13.693.2.7.9.638056.958[id number] 2.0.1.857736.3.57[id number] 2..1.160297.3.579.2.44587-72-3942Gvayxiy0528750 2..1.624294.3.579.2.73217-77-3990Fkhpceo24846452 2..1.925624.3.579.2.624415-11-9537Stwzfyn60191915 2..1.394137.3.579.2.786872-09-0779Dnbqwgy12966832 2..1.230926.3.579.2.231190-04-4193Swfzjkp28331115 2..1.757317.3.579.2.063646-71-1684Kmtbhpl19103454 2.0.1.109488.3.579.2.255419-13-8982Kuahxir47393575 2.0.1.758649.3.579.2.317313-78-8824Mbjlthn1664425 2.16.840.1.168452.3.579.2.883941-79-9681Ezaktco8287808 2.16.840.1.529006.3.579.2.256483-29-5692Yldjrom7353903 2.16.840.1.693787.3.579.2.442377-94-5842Dfumxix4655986 2.16840.1.773715.3.579.2.701261-07-0363Dtudbev8503420 2.16840.1.279475.3.579.2.332503-84-5048Vsgkrqj8512845 2.840.1.773588.3.579.2.663669-55-5914Hjizoyq1865940 2.16840.1.394588.3.579.2.926776-89-9605Uydpfts3551475 2..1.920214.3.579.2.727783-96-6677Gpnynuh4435865 2..1.993188.3.579.2.290676-07-3893Dvqnypf2884331 2.840.1.074695.3.579.2.278395-83-6821Mmhcrvj7494402 2.840.1.718007.3.579.2.052564-49-6122Jhwmvfw3624758 2.840.1.039488.3.579.2.759374-71-2447Sghgoda2343909 2.16840.1.341233.3.579.2.105838-76-9142Tpgymyv2313100 2.16840.1.669346.3.579.2.755539-62-3921Pzfgxfy2321941 2.16840.1.166572.3.579.2.268844-67-0721Lypn-oks83381240906-46-7320Vgffvqq I2NYZ5506528Gbaayqq Health [id number] b7877c01-a7i7-582o-1449-djaj078u5897Xxljuzw13182448 2.16.840.1.490695.3.579.2.013Hqwjnvr51903473 2.16.840.1.201416.3.579.2.531 Xirgslq29162240 2.16.840.1.675488.3.579.2.531 Social History DateTypeDetailFacilityStart: 06-29-2019 End: 86-66-1687Vosfnsl smoking status NHISSmoker (finding)[address] Hospitaltart: 82-89-6151Rqj Assigned At BirthMartin Memorial Hospitaltart: 06-10-2020 End: 11-91-5440Xjx Assigned At [facility] Other Tobacco smoking status NHISTobacco smoking consumption unknownNOMS HealthcareStart: 60-11-9063ZmdlxrcvlKBMR HealthcareStart: 26-88-4402Zrhzrt identityIdentifies as female gender (finding)[facility] Start: 03-12-2019 End: 09-86-9089Blfqjvv smoking status NHISEx-smokerHenry County Hospital SystemStart: 03-12-2019 End: 49-99-7046Jjpmgkz use and exposureSmokeless tobacco non-userHenry County Hospital SystemStart: 28-55-0186Joxxgfeiw beverage intakeLifetime non-drinker (finding)[facility] SystemStart: 06-10-2020 End: 16-23-6534Usarzvm of Social functionProPremier Health [facility] SystemStart: 20-83-2615FuzfomfmnZvmlgdwBgvVpmase Health SystemStart: 03-12-2019 End: 69-51-6714Dfsknfa CommentPT IS A VAPERProPremier Health [facility] SystemStart: 80-09-5796Wlp assigned at birthNot on fileHenry County Hospital SystemStart: 93-24-2058ZhuJkqqne (finding)[facility] SystemStart: 46-00-5532Cipeud orientationHeterosexual (finding)[facility]phatic SystemStart: 33-80-9765Vlsteur smoking status NHISSmokes tobacco daily (finding)[facility] Medical Equipment Procedure CodeEquipment CodeEquipment Original TextEquipment IdentifierDates1 strip by In Vitro route Daily Use in the morning prior to breakfast, 1 hour after each meal for atotal of 4times daily.[id number]: 03-25-2024 End: each by In Vitro route Daily Use to check FSBS four times daily [id number]: 03-25-2024 End: 43-96-3518Rqjcef 1 each under the skin See administration instructions Use four times daily with insulin pen.[id number]: 05-13-2024 End: 43-89-6686Uvr as [id number]: 05-22-2024 Goals DatePatient GoalDesired Activity/StatePersonal health goalComment on above: Evaluation of progress towards goal: go home today Clinical Notes 12-02-2019 to 07-18-2024 Note Date & GsnxKefkWjtuheij33-39-2144 History of Present illness Narrative* PACO Freed [...] behalf of: PACO Freed documented in this encounterMosaic Life Care at St. JosephUapxhskqvp98-78-2785 History of Present illness Narrative* PACO Freed [...] Medical History: Diagnosis Date Bipolar 1 disorder (CMS/[facility]) Social History Tobacco Use Smoking status: [...] behalf of: PACO Freed documented in this encounterMosaic Life Care at St. JosephTftubmznvm97-26-5991 History of Present illness Narrative* Gayle Hendricks LPN - 05/29/2024 2:20 PM EST Reason for Appointment: Patient ID: Mikaela Mcclendon is a 39 y.o. female who presents for Routine Visit Patient presents today for Return OB appointment. MEDICATIONS Current Outpatient Medications Medication Instructions Alcohol Swabs (Alcohol Prep Pad) 70 % pads 1 Pad, Topical, Daily, Use four times daily to check FSBS. aspirin 81 mg, Daily Blood Glucose Monitoring Suppl (D-Nonabox Glucometer) w/Device kit 1 kit, Does not [...] nursing note reviewed. Exam conducted with a scale assembly set up worker present. Vitals: Estimated body mass index is [...] of: Johnathan Recinos DO documented in this encounterMosaic Life Care at St. JosephJhosekyzeg71-90-8229 History of Present illness Narrative* Gayle Hendricks [...] nursing note reviewed. Exam conducted with a scale assembly set up worker present. Vitals: Estimated body mass index is 41.3 kg/m as calculated from the following: Height as of 11/18/22: 5' 2 . Weight as of this [...] week for routine OB appointment. Documented by Galye Hendricks LPN on behalf of: Johnathan Recinos DO documented in this encounterMosaic Life Care at St. JosephGtusmjqmht39-25-2925 History of Present illness Narrative* Barbara Guillermo LPN - 05/13/2024 1:50 PM EST Reason for [...] Date Bipolar 1 disorder ([facility]) HISTORY PAST MEDICAL HISTORY SOCIAL HISTORY [...] nursing note reviewed. Exam conducted with a scale assembly set up worker present. Vitals: Estimated body mass index is [...] of: Johnathan Recinos DO documented in this encounterMosaic Life Care at St. JosephCxcdqaqopr79-81-9154 History of Present illness Narrative* Gayle Hendricks [...] Date Bipolar 1 disorder ([facility]) HISTORY PAST MEDICAL HISTORY SOCIAL HISTORY Past Medical History: Diagnosis Date Bipolar 1 disorder ([facility]) Social History Tobacco Use Smoking status: [...] nursing note reviewed. Exam conducted with a scale assembly set up worker present. Vitals: Estimated body mass index is [...] of: Johnathan Recinos DO documented in this encounterMosaic Life [facility] at St. [id number] History of Present illness Narrative* PACO Freed [...] Date Bipolar 1 disorder ([facility]) HISTORY PAST MEDICAL HISTORY SOCIAL HISTORY Past Medical History: Diagnosis Date Bipolar 1 disorder ([facility]) Social History Tobacco Use Smoking status: [...] hour glucose order to have done at [facility]. Patient DECLINES 3 hour gtt and would like to start testing FSBS--Patient will be referred to [facility] at [facility]. Follow Up: Patient is to return to office in 2 week for routine OB appointment. Documented by Nettie Frazier MA on behalf of: PACO Freed documented in this encounterMosaic Life Care at St. [id number] History of Present illness Narrative* Barbara Guillermo [...] nursing note reviewed. Exam conducted with a scale assembly set up worker present. Vitals: Estimated body mass index is [...] of . Nursing will reach out to [facility] to inquire about culture results. Paco kenyon does have follow up appointment with Maternal Medicine. Patient to return to clinic in 4 weeks for routine OB appointment. Documented by Barbara Guillermo LPN on behalf of: PACO Freed documented in this encounterMosaic Life Care at St. [id number] History of Present illness Narrative* Gayle Hendricks [...] Date Bipolar 1 disorder ([facility]) HISTORY PAST MEDICAL HISTORY SOCIAL HISTORY [...] nursing note reviewed. Exam conducted with a scale assembly set up worker present. Vitals: Estimated body mass index is [...] of: Johnathan Recinos DO documented in this encounterMosaic Life Care at St. [id number] History of Present illness Narrative* Gayle Hendricks [...] Date Bipolar 1 disorder ([facility]) HISTORY PAST MEDICAL HISTORY SOCIAL HISTORY Past Medical History: Diagnosis Date Bipolar 1 disorder ([facility]) Social History Tobacco Use Smoking status: [...] nursing note reviewed. Exam conducted with a scale assembly set up worker present. Vitals: Estimated body mass index is [...] of: Johnathan Recinos DO documented in this encounterMosaic Life Care at St. [id number] History of Present illness Narrative* Malena Cardona [...] Date Bipolar 1 disorder ([facility]) Depression PSHIST: Past Surgical History: Procedure [...] during in second trimester ([facility]) I reviewed with the patient that [...] levels of her lamotrigine checked in the fmik1cy and 3rd trimester in order to ensure adequate dosing. While monotherapy with low doses of psychotropics and mood stabilizers is typically the rule of thumb during , Lurasidone is a second-line agent and as an atypical antipsychotic. Based on animal studies not expected to increase risk for congenital anomalies. Risks of withdrawal and extrapyramidal effects on reviewed. Electron Gun Assembler should be notified. Lack of controlled human [...] . For prevention of venous thromboembolism in fuoj-tqjq-eqom groups, pharmacologic thromboprophylaxis should be considered in [...] risk for sudden syndrome (adjusted OR 2.44, 95%CI 2.31-2.57) [Fredi [...] prevention Cervical length at 22 weeks at [facility] Follow up survey scheduled Serial growth assessments every 4 weeks after the anatomy scan can be done at OB office. ventricles should be measured at each US. If >=10 mm or concern for hydrocephalus refer to M. If you would like [facility] to do the growth US [...] Malena Cardona MD, FACOG (she/hers) Maternal- Medicine [facility] [address] [place] [address] This document was created with [employer] technology. Though I make every effort to [...] scope of requested consultation and will c gerryinue to be followed by the primary lifestyle director or primary care provider. Note to patient: [...] yes Have you been seen here at [facility] in a previous ? yes Recent ER visits or hospitalizations? 02/07 kidney and bladder infection Bring blood sugar log or meter with you today? (Please bring them with you for every visit at [facility]) na Flu vaccine (Mar-June)? na Any concerns that you would like me to mention to the provider today? no documented in this encounterGlenbeigh HospitalMOMENTFACE SRO [id number] History of Present illness Narrative* Gayle Hendricks [...] Date Bipolar 1 disorder ([facility]) HISTORY PAST MEDICAL HISTORY SOCIAL HISTORY Past Medical History: Diagnosis Date Bipolar 1 disorder ([facility]) Social History Tobacco Use Smoking status: [...] annual exam/routine obstetrics appointment. Patient is currently [id number]. Patient states she is doing well but has complaints of nausea in the morning. Pap and cultures was obtained without difficulty and patient was given orders for msAFP to be obtained. Pt still has zofran pump, when removed pt still very sick. This is number 4 section, pt to be referred to [facility] for level II ultrasound. Pt [...] of: Johnathan Recinos DO documented in this encounterMosaic Life Care at St. [id number] History of Present illness Narrative* PACO Freed [...] Medical History: Diagnosis Date Bipolar 1 disorder ([facility]) HISTORY PAST MEDICAL HISTORY SOCIAL HISTORY Past Medical History: Diagnosis Date Bipolar 1 disorder ([facility]) Social History Tobacco Use Smoking status: [...] behalf of: PACO Freed documented in this encounterMosaic Life Care at St. [id number] History of Present illness Narrative* Barbara Guillermo, LOGISTICS COORDINATOR - 12/25/2023 10:50 AM EDT Reason for [...] nursing note reviewed. Exam conducted with a scale assembly set up worker present. Vitals: Estimated body mass index is [...] or undercooked meat, and stay away from [facility]. Patient has been consulted regarding any further do's and don'tsof . Patient voiced understanding and all questions and concerns were answered. Patient complaints of nausea not helped by oral medications. [facility] Patient aware that [facility] will reach out to her to initiate therapy. Follow Up: Patient is to return in 4 weeks for routine OB appointment. Documented by Barbara Guillermo LPN on behalf of: Liza Meraz PA-C documented in this encounterMosaic Life Care at St. [id number] Evaluation note* Encounter Date Diagnosis Assessment Notes [...] stable condition. Mar,Sore throat (ICD-10 - J02.9) [employer] Other 01-10-2023 Evaluation note* Encounter Date Diagnosis [...] weeks for the cough to go away [employer] Other 11-07-2022 NoteIndication: Abdominal pain. Comparison: None [...] Electronically authenticated by: SURJIT FREITAS Date: 2022-03-07 20:49[facility]11-19-2020 NoteI Staff This visit was conducted via phone communications from my office due to the restrictions of the COVID-19 pandemic. No physical exam was conducted due to audio only communication with the patient located at [address] [place] [phone], with no one else. If it is determined that the patientshould be evaluated in person, the patient will be directed to the appropriate clinic or venue. Thepatient or their guardian verbally consented to this visit. Phone time was 15 minutes discussing health issues with counseling and coordination of care. Subjective Interval History/HPI Patient presents today for follow up via telehealth phone [facility]. Patient started Latuda 20mg last [...] anxiety, # 30 tab(s), Refills(s) 2, Pharmacy: [facility]/pharmacy #[id number], 161, cm, 12/23/19 10:18:00 EDT, Height/Length Dosing, 82, kg, 12/23/19 10:18:00 EDT, Weight Dosing Orders: lurasidone, 20 mg = 1 tab(s), Oral, Daily, with 350 calories; begin this dose first then progress to next dose of 40mg, X 1 week(s), # 7 tab(s), Refills(s) 0, Pharmacy: [facility]/pharmacy #[id number], 161, cm, 12/23/19 10:18:00 EDT, Height/Length Dosing, 82, kg, 12/23/19 10:... lurasidone, 40 mg = 1 tab(s), Oral, Daily, with 350 calories, # 30 tab(s), Refills(s) 1, Pharmacy: [facility]/pharmacy #[id number], 161, cm, 12/23/19 10:18:00 [...] anxiety disorder) Hidr (more content not included)...[facility] HospitalComment on above: Result Comment: Electronically Signed By: Carlota RODRIGUEZ CNP\.br\Date and Time Signed: 03/19/20 14:27 [id number] NoteI Staff This visit was conducted via two-way, real-time interactive video communications from my office using [employer] due to the restrictions of the COVID-19 pandemic. No physical exam was conducted other than those areas of the body visible to telecommunications with the patient located at [address] [place] [address] [phone], with no one else in attendance. If [...] Ordered: TELEHEALTH Office Visit Level 3 Est 65547 General Treatment Plan Maintain medication regimen _Improve [...] 03/18/2019 Home/Environment Sylvia (more content not included)...[facility] HospitalComment on above: Result Comment: Electronically Signed By: Carlota RODRIGUEZ CNP\Date and Time Signed: 03/05/20 13:32 [id number] NoteI Staff This visit was conducted via two-way, real-time interactive video communications from my office using [employer] due to the restrictions of the COVID-19 pandemic. No physical exam was conducted other than those areas of the body visible to telecommunications with the patient located at [address] [place] [address], with no one else in attendance. If [...] anxiety, # 30 tab(s), Refills(s) 1, [id number], cm, 12/23/19 10:18:00 EDT, Height/Length Dosing, 82, kg, 12/23/19 10:18:00 EDT, Weight Dosing alprazolam, 0.5 mg = 1 tab(s), Oral, TID, PRN for anxiety, # 30 tab(s), Refills(s) 1, Pharmacy: [facility]/pharmacy #[id number], 161, cm, 12/23/19 10:18:00 EDT, Height/Length Dosing, 82, kg, 12/23/19 10:18:00 EDT, Weight Dosing aripiprazole, See Instructions, 1.5 tab po qAM, # 30 tab(s), Refills(s) 2, Pharmacy: [facility]/pharmacy #[id number], 161, cm, 12/23/19 10:18:00 EDT, Height/Length Dosing, 82, kg, 12/23/19 10:18:00 EDT, Weight Dosing aripiprazole, See Instructions, 1 tab po qAM, # 30 tab(s), Refills(s) 5, Pharmacy: [facility]/pharmacy #[id number], 161, cm, 12/23/19 10:18:00 EDT, Height/Length Dosing, 82, kg, 12/23/19 10:18:00 EDT, Weight Dosing cyclobenzaprine, 10 mg = 1 tab(s), Oral, TID, PRN for spasm, # 30 tab(s), Refills(s) 1, Pharmacy: [facility]/pharmacy #[id number], 161, cm, 06/13/19 14:39:00 EST, Height/Length Measured, 82, kg, 06/13/19 14:39:00EST, Weight Measured cyclobenzaprine, 10 mg = 1 tab(s), Oral, TID, PRN for spasm, # 30 tab(s), Refills(s) 1, Pharmacy: [facility]/pharmacy #[id number], 161, cm, 12/23/19 10:18:00 EDT, Height/Length Dosing, 82, kg, 12/23/19 10:18:00 EDT, Weight Dosing General Treatment Plan Maintain medication regimen _Improve mood stability _Improve anxiety control _Improve social and interpersonal functioning Clinical Global Impression 62 Prognosis progressing Follow-up With When Contact Information Carlota RODRIGUEZ CNP In 4 weeks Additional Instructions: (more content not included)...[facility] HospitalComment on above:Result Comment: Electronically Signed By: Carlota RODRIGUEZ CNP\.br\Date and Time Signed: 01/27/20 22:35 [id number] NoteI Staff This visit was conducted via two-way, real-time interactive video communications from my office using [employer] due to the restrictions of the COVID-19 pandemic. No physical exam was conducted other than those areas of the body visible to telecommunications with the patient located at [address] [place] [address] [phone], with no one else in attendance. If [...] Ordered: TELEHEALTH Office Visit Level 3 Est 84101 General Treatment Plan Maintain medication regimen _Improve [...] Never Smokeless Tob (more content not included)...[facility] HospitalComment on above:Result Comment: Electronically Signed By: Carlota RODRIGUEZ CNP\.br\Date and Time Signed: 01/13/20 09:11 [id number] NoteI Staff This visit was conducted via two-way, real-time interactive video communications from my office using [employer] due to the restrictions of the COVID-19 pandemic. No physical exam was conducted other than those areas of the body visible to telecommunications with the patient located at [address] [place], [place] [phone], with no one else in attendance. If [...] anxiety, # 30 tab(s), Refills(s) 1, Pharmacy: [facility]/pharmacy #[id number], 161, cm, 12/23/19 10:18:00 EDT, Height/Length Dosing, 82, kg, 12/23/19 10:18:00 EDT, Weight Dosing alprazolam, 0.5 mg = 1 tab(s), Oral, TID, PRN for anxiety, # 30 tab(s), Refills(s) 1, Pharmacy: [facility]/pharmacy #[id number], 161, cm, 06/13/19 14:39:00 EST, Height/Length Measured, 82, kg, 06/13/19 14:39:00 EST, Weight Measured aripiprazole, See Instructions, 1 tab po qAM, # 30 tab(s), Refills(s) 0, Pharmacy: [facility]/pharmacy #[id number], 161, cm, 12/23/19 10:18:00 [...] Bactrim Social History (more content not included)...[facility] HospitalComment on above:Result Comment: Electronically Signed By: Carlota RODRIGUEZ CNP\harshil\Date and Time Signed: 12/23/19 16:37 [id number] NoteHPI Staff This visit was conducted via two-way, real-time interactive video communications from my office using [employer] due to the restrictions of the COVID-19 pandemic. No physical exam was conducted other than those areas of the body visible to telecommunications with the patient located at [address] [place] [address], with no one else in attendance. If [...] q24hr, # 30 tab(s), Refills(s) 2, Pharmacy: [facility]/pharmacy #[id number],161, cm, 06/13/19 14:39:00 EST, Height/Length Measured, 82, kg, 06/13/19 14:39:00 EST, Weight Measured cyclobenzaprine, 10 mg = 1 tab(s), Oral, TID, PRN for spasm, # 30 tab(s), Refills(s) 1, Pharmacy: [facility]/pharmacy #[id number], 161, cm, 06/13/19 14:39:00 [...] Employed, 03/18/2019 Home/Environment (more content not included)...[facility] HospitalComment on above:Result Comment: Electronically Signed By: Carlota RODRIGUEZ CNP\.br\Date and Time Signed: 12/02/19 16:38 EDTChief complaint+Reason for visit Narrative* Chief Complaint Nausea, diarrhea, fe zhou Reason for Visit Contact with and (louis spected) exposure to covid-19 Sore throat [facility] Work Phone: Evaluation note* Diagnosis Onset Date Resolution Status Contact with and (suspected) exposure to covid-19 noneactiveSore throatnoneactive [facility] Work Phone: Evaluation note* Diagnosis 22 weeks [...] unspecified obesity type documented [facility] encounter [facility] SystemEvaluation [facility]* Diagnosis 21 weeks gestation of - Primary Multigravida of advanced maternal age in second trimester Pyelonephritis affecting in second trimester Bipolar disease during in second trimester ([facility]) Obesity affecting in second trimester, unspecified obesity type BMI 39.0-39.9,adult History of section complicating Previous delivery, unspecified as to episode of care or not applicable Vapes nicotine containing substance Current rao with 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 Other InstructionsNot on filedocumented in this encounter [employer] SystemInstructions* Attachments The following attachments cannot be sent through Care Everywhere. * Preeclampsia (Malaysian) * Movement (Malaysian) documented in this encounterProClermont County HospitalMOMENTFACE SRO SystemInstructionsNot on file documented in this encounterNorthwestern Medical CenterGoombal SystemReason for referral (narrative)No reason for referral information availableFostoria City Hospital [employer] Work Phone: Advance Directives Advance Directive Response Recorded Date/ Time Advance Directives No June 9:31pm Advance Directive Response Recorded Date/ Time Advance Directives No June 10:31pm Date ActivatedDate AcfoeazkyksKixnmlwj81/10/2024 2:59 AM02/09/2024 5:47 PMDate ActivatedDate HlazyapkrigBlpptcof01/10/2024 2:59 AM02/09/2024 5:47 PM Chief Complaint and Reason for Visit Chief Complaint allergic reaction Chief Complaint Admit Date Unknown February 18, 2025 1 1:32am Assessments No Assessments Information Available Discharge Instructions Additional Instructions Follow up with your doctor as discussed. If you need to use an Epi-Pen, then you need to come to the hospital right away. This is not sufficient treatment on its own. You may need to be seen by an police service technician if you have other events like this without definite egg exposure. Summary Purpose Family History Relationship Condition Age at Onset Recorded Date/T alo father Diabetes mellitus Unknown HypertensionUnknown Additional Source Comments INFORMATION SOURCE (unrecogn ized section and content) DATE CREATED AUTHOR 10/30/2020 [facility] DATE CREATED AUTHOR AUTHOR'S ORGANIZ ATION 04/29/2022 [facility] DATE CREATED AUTHOR AUTHOR'S ORGANIZ ATION 03/16/2024 [facility] DATE CREATED AUTHOR AUTHOR'S ORGANIZ ATION 07/20/2024 [facility] DATE CREATED AUTHOR AUTHOR'S ORGANIZ ATION 02/22/2025 [facility] REASON FOR VISIT (unrecogniz [...] Date No Pcp, [place] [address] PCP - GeneralFamily Qciqnymc50/12/19Team MemberRelationshipSpecialtyStart Date End Date No Pcp, [place] [address] PCP - GeneralFamily Htbdwjox97/12/19Team MemberRelationshipSpecialtyStart Date End Date No Pcp, [place] [address] PCP - GeneralFamily Pembvzzz91/12/19 Team Status: Inactive Member Role/Relationship Status Dates JAQUAN Hilton Attending Provider Active Start: February 18, 2025 End: February 18, 2025 Goals (unrecognized section and content) Goals may [...] BE BASED ON THE PRIMARY CLINICAL RECORDS. [facility] provides no warranty or guarantee of the accuracy or completeness of information in this document.
[2025-04-09 12:33] LABS: Glucose Urine UA NEGATIVE (NEGATIVE)
[2025-04-09 15:25] LABS: Cast Seen? NONE SEEN #/LPF (NONE SEEN); Crystals Seen? None Seen #/HPF (None Seen)
== END 2025-04-09 12:11 | disposition home or self-care (01) ==
LOC: LAB 12:11
PROVIDERS: PCP Nurse Practitioner Family; Visit Provider Nurse Practitioner Family
DX: N39.0 Urinary tract infection, site not specified (principal)
CPT/HCPCS: 81001; 87086